=== PATIENT | female | born 1955 | race Caucasian/White ===

== ENCOUNTER → 2016-07-28 | Outpatient (CLI) | payer MEDICARE, OTHER ==
--- NOTE | 2016-07-28 09:22 | CT ---
EXAMINATION TYPE: CT lumbar spine wo con DATE OF EXAM: 07/28/2016 9:07 AM COMPARISON: NONE HISTORY: Recent Fall, checking on surgical site CT DLP: 2483.9 mGycm CONTRAST: none Unenhanced CT of the lumbar spine was performed. Bone and soft tissue window settings are submitted as well as coronal and sagittal reconstructions. L1-L2: Normal disc space height. No disc herniation protrusion or central stenosis. No facet joint arthropathy. No evidence for foraminal encroachment. L2-L3: Normal disc space height. No disc herniation protrusion or central stenosis. No facet joint arthropathy. No evidence for foraminal encroachment. L3-L4: Mild degenerative disc space narrowing. Moderate circumferential disc bulge greatest posterior ly with effacement of the ventral thecal sac. There is a resultant central stenosis. Spinal canal terrell ears to be congenitally diminutive in size. L4-L5: Decompressive laminectomy changes noted. Pedicular screws are in place. Intervertebral body s pacer noted which appears to extend beyond the confines of the posterior vertebral margin and extends paracentrally and to the right, see image 65 of 87. Vacuum changes noted may reflect underlying infe ction. No vacuum changes identified in plain film radiographs of 11/04/2015. Persistent anterolisthesi s L4 and L5 measuring 5.2 mm. L5-S1: Mild degenerative disc space narrowing. Grade 1 retrolisthesis L5 on S1 of 3.3 mm. Circumferen tial disc bulge greatest posteriorly. Effacement of the ventral thecal sac with bilateral lateral rec ess stenosis. No definite central stenosis at this time. Bilateral foraminal encroachment identified. No paraspinal masses are identified. Lumbar segments are free if fracture. IMPRESSION: 1. Decompressive laminectomy and intervertebral body spacer at L4-5. Vacuum changes may be postsurgic al in nature or related to infection. Spacer appears to extend beyond the posterior margin of the carol tebral body. See above. 2. Persistent grade 1 anterolisthesis L4 and L5 and grade 1 retrolisthesis L5 on S1. 3. Mild central stenosis at L3-4.
== END | disposition home or self-care (01) ==
LOC: RADCTMAIN 08:48
PROVIDERS: ATTEND Orthopaedic Surgery
DX: Z09 Encounter for follow-up examination after completed treatment for conditions other than malignant neoplasm (principal); M48.06 Spinal stenosis, lumbar region; M43.17 Spondylolisthesis, lumbosacral region; Z98.1 Arthrodesis status
CPT/HCPCS: 72131

== ENCOUNTER 2016-08-06 18:45 | Observation (INO) | payer MEDICARE, OTHER ==
[2016-08-06] MEDS ORDERED: SODIUM CHLORIDE 0.9% 500 ML IV SCH (19:00)
--- NOTE | 2016-08-06 19:12 | ED ---
General Adult HPI - General Chief complaint: Weakness Stated complaint: poss pneumonia, body pain Time Seen by Provider: 08/06/16 18:47 Source: patient Mode of arrival: EMS Limitations: no limitations - History of Present Illness Initial comments: This is a 61-year-old failed a history of CK 80, CHF and hypertension, hyperlipidemia presents emergency department for "feeling awful" for the last week. She states that she's been having generalized fatigue, sore throat, intermittent fevers, shortness of breath and cough. She denies any abdominal pain, nausea, vomiting, or diarrhea. She denies any lower [place] swelling. She states today she felt so weak that she says she should call and EMS. She denies any other complaints. EMS stated that she was in the high 80s and low 90s on room air for them. - Related Data Home Medications Medication Instructions Recorded Confirmed Carvedilol [Coreg] 6.25 mg PO BID 02/23/15 08/06/16 Folic Acid 1 mg PO AC-SUPPER 02/23/15 08/06/16 Furosemide [Lasix] 20 mg PO QAM 02/23/15 08/06/16 Simvastatin [Zocor] 20 mg PO HS 02/23/15 08/06/16 amLODIPine BESYLATE [Norvasc] 10 mg PO QAM 02/23/15 08/06/16 Insulin Glargine [Lantus] 45 unit SQ HS 02/24/15 08/06/16 Aspirin 325 mg PO AC-SUPPER 08/06/16 08/06/16 DULoxetine HCL [Cymbalta] 20 mg PO HS 08/06/16 08/06/16 Gabapentin [Neurontin] 300 mg PO Q8H 08/06/16 08/06/16 Hypromellose 1 drop LEFT EYE Q6H PRN 08/06/16 08/06/16 INSULIN LISPRO (HumaLOG) [humaLOG] 5 units SQ AC-TID 08/06/16 08/06/16 INSULIN LISPRO (humaLOG) [HumaLOG] See Protocol SQ AC-TID 08/06/16 08/06/16 Levothyroxine Sodium [Synthroid] 100 mcg PO DAILY 08/06/16 08/06/16 Sodium Bicarbonate 325 mg PO QID 08/06/16 08/06/16 Previous Rx's Medication Instructions Recorded HYDROcodone/APAP 5-325MG [[place] 1 tab PO Q6HR PRN #30 tab 02/18/16 5-325] Allergies Allergy/AdvReac Type Severity Reaction Status Date / Time No Known Allergies Allergy Verified 08/06/16 19:33 Review of Systems ROS Statement: Those systems with pertinent positive or pertinent negative responses have been documented in the HPI. ROS Other: All systems not noted in ROS Statement are negative. Past Medical History Past Medical History: Asthma, Coronary Artery Disease (CAD), Diabetes Mellitus, Hypertension, Myocardial Infarction ([place]), Rheumatoid Arthritis ([place]), Sleep Apnea /CPAP/BIPAP, Thyroid Disorder Last Myocardial Infarction Date:: 2009 History of Any Multi-Drug Resistant Organisms: None Reported Past Surgical History: Adenoidectomy, Cholecystectomy, Heart Catheterization With Stent, Tonsillectomy Additional Past Surgical History / Comment(s): thyroidectomy back and shoulder surg Past Anesthesia/Blood Transfusion Reactions: No Reported Reaction Date of Last Stent Placement:: Past Psychological History: No Psychological Hx Reported Smoking Status: Never smoker Past Alcohol Use History: None Reported Past Drug Use History: None Reported General Exam - General Exam Comments Initial Comments: Constitutional: Awake alert appears uncomfortable Head: Normocephalic atraumatic Eyes: Mild conjunctival injection No scleral icterus EOMI ENT: Oropharynx is erythematous with white exudate Neck: No JVD Supple Heart: Regular rate rhythm normal S1-S2 no murmurs Lungs: Trace breath sounds in left base No wheezing No rales Abdomen: Soft nondistended nontender Extremities: Non edematous DP pulses intact Radial pulses intact Neuro: A&Ox3 No focal neurologic deficits Psych: Appropriate mood and affect Limitations: no limitations Course Vital Signs 08/06/16 18:53 Temperature 99.1 F Pulse Rate 93 Respiratory 18 Rate Blood Pressure 161/98 O2 Sat by Pulse 98 Oximetry Medical Decision Making - Medical Decision Making This is a 7-year-old female presents emergency department for generalized malaise. The patient has a leukocytosis and has what appears to be urinary tract infection. We'll start her on IV Rocephin. Due to her multiple comorbidities and keep her overnight for further monitoring. I'm also keep her in a little bit of IV fluids. Patient family were updated on this and agree. Dr. Baca except admission. - Lab Data Result diagrams: 08/06/16 19:06 08/06/16 19:06 Lab Results 08/06/16 08/06/16 08/06/16 Range/Units 19:06 19:06 19:06 WBC 13.0 H (3.8-10.6) k/uL RBC 3.97 (3.80-5.40) m/uL Hgb 12.2 (11.4-16.0) gm/dL Hct 36.8 (34.0-46.0) % MCV 92.7 (80.0-100.0) fL MCH 30.6 (25.0-35.0) pg MCHC 33.0 (31.0-37.0) g/dL RDW 14.8 (11.5-15.5) % Plt Count 132 L (150-450) k/uL Neutrophils % 84 % Lymphocytes % 10 % Monocytes % 4 % Eosinophils % 0 % Basophils % 0 % Neutrophils # 10.9 H (1.3-7.7) k/uL Lymphocytes # 1.3 (1.0-4.8) k/uL Monocytes # 0.5 (0-1.0) k/uL Eosinophils # 0.1 (0-0.7) k/uL Basophils # 0.0 (0-0.2) k/uL PT (9.0-12.0) sec INR (<1.1) APTT (22.0-30.0) sec Sodium 137 (137-145) mmol/L Potassium 4.5 (3.5-5.1) mmol/L Chloride 101 (98-107) mmol/L Carbon Dioxide 27 (22-30) mmol/L Anion Gap 9 mmol/L BUN 20 H (7-17) mg/dL Creatinine 1.48 H (0.52-1.04) mg/dL Est GFR (MDRD) Af Amer 44 (>60 ml/min/1.73 sqM) Est GFR (MDRD) Non-Af 36 (>60 ml/min/1.73 sqM) Glucose 211 H (74-99) mg/dL Plasma Lactic Acid [place] (0.7-2.0) mmol/L Calcium 8.6 (8.4-10.2) mg/dL Total Bilirubin 1.1 (0.2-1.3) mg/dL AST 41 H (14-36) U/L ALT 38 (9-52) U/L Alkaline Phosphatase 114 (38-126) U/L Total Creatine Kinase (30-135) U/L CK-MB (CK-2) (0.0-2.4) ng/mL CK-MB (CK-2) Rel Index Troponin I (0.000-0.034) ng/mL NT-Pro-B Natriuret Pep pg/mL Total Protein 7.0 (6.3-8.2) g/dL Albumin 3.2 L (3.5-5.0) g/dL Urine Color Urine Appearance (Clear) Urine pH (5.0-8.0) Ur Specific [place] (1.001-1.035) Urine Protein (Negative) Urine Glucose (UA) (Negative) Urine Ketones (Negative) Urine Blood (Negative) Urine Nitrate (Negative) Urine Bilirubin (Negative) Urine Urobilinogen (<2.0) mg/dL Ur Leukocyte Esterase (Negative) Urine RBC (0-5) /hpf Urine WBC (0-5) /hpf Urine WBC Clumps (None) /hpf Ur Squamous Epith Cells (0-4) /hpf Urine Bacteria (None) /hpf Hyaline Casts (0-2) /lpf Urine Yeast (Budding) (None) /hpf Influenza Type A RNA Not Detected (Not Detectd) Influenza Type B (PCR) Not Detected (Not Detectd) Group A Strep Rapid (Negative) 08/06/16 08/06/16 08/06/16 Range/Units 19:06 19:06 19:06 WBC (3.8-10.6) k/uL RBC (3.80-5.40) m/uL Hgb (11.4-16.0) gm/dL Hct (34.0-46.0) % MCV (80.0-100.0) fL MCH (25.0-35.0) pg MCHC (31.0-37.0) g/dL RDW (11.5-15.5) % Plt Count (150-450) k/uL Neutrophils % % Lymphocytes % % Monocytes % % Eosinophils % % Basophils % % Neutrophils # (1.3-7.7) k/uL Lymphocytes # (1.0-4.8) k/uL Monocytes # (0-1.0) k/uL Eosinophils # (0-0.7) k/uL Basophils # (0-0.2) k/uL PT 10.4 (9.0-12.0) sec INR 1.0 (<1.1) APTT 24.7 (22.0-30.0) sec Sodium (137-145) mmol/L Potassium (3.5-5.1) mmol/L Chloride (98-107) mmol/L Carbon Dioxide (22-30) mmol/L Anion Gap mmol/L BUN (7-17) mg/dL Creatinine (0.52-1.04) mg/dL Est GFR (MDRD) Af Amer (>60 ml/min/1.73 sqM) Est GFR (MDRD) Non-Af (>60 ml/min/1.73 sqM) Glucose (74-99) mg/dL Plasma Lactic Acid [place] 1.1 (0.7-2.0) mmol/L Calcium (8.4-10.2) mg/dL Total Bilirubin (0.2-1.3) mg/dL AST (14-36) U/L ALT (9-52) U/L Alkaline Phosphatase (38-126) U/L Total Creatine Kinase (30-135) U/L CK-MB (CK-2) (0.0-2.4) ng/mL CK-MB (CK-2) Rel Index Troponin I (0.000-0.034) ng/mL NT-Pro-B Natriuret Pep 557 pg/mL Total Protein (6.3-8.2) g/dL Albumin (3.5-5.0) g/dL Urine Color Urine Appearance (Clear) Urine pH (5.0-8.0) Ur Specific [place] (1.001-1.035) Urine Protein (Negative) Urine Glucose (UA) (Negative) Urine Ketones (Negative) Urine Blood (Negative) Urine Nitrate (Negative) Urine Bilirubin (Negative) Urine Urobilinogen (<2.0) mg/dL Ur Leukocyte Esterase (Negative) Urine RBC (0-5) /hpf Urine WBC (0-5) /hpf Urine WBC Clumps (None) /hpf Ur Squamous Epith Cells (0-4) /hpf Urine Bacteria (None) /hpf Hyaline Casts (0-2) /lpf Urine Yeast (Budding) (None) /hpf Influenza Type A RNA (Not Detectd) Influenza Type B (PCR) (Not Detectd) Group A Strep Rapid (Negative) 08/06/16 08/06/16 08/06/16 Range/Units 19:06 19:11 21:20 WBC (3.8-10.6) k/uL RBC (3.80-5.40) m/uL Hgb (11.4-16.0) gm/dL Hct (34.0-46.0) % MCV (80.0-100.0) fL MCH (25.0-35.0) pg MCHC (31.0-37.0) g/dL RDW (11.5-15.5) % Plt Count (150-450) k/uL Neutrophils % % Lymphocytes % % Monocytes % % Eosinophils % % Basophils % % Neutrophils # (1.3-7.7) k/uL Lymphocytes # (1.0-4.8) k/uL Monocytes # (0-1.0) k/uL Eosinophils # (0-0.7) k/uL Basophils # (0-0.2) k/uL PT (9.0-12.0) sec INR (<1.1) APTT (22.0-30.0) sec Sodium (137-145) mmol/L Potassium (3.5-5.1) mmol/L Chloride (98-107) mmol/L Carbon Dioxide (22-30) mmol/L Anion Gap mmol/L BUN (7-17) mg/dL Creatinine (0.52-1.04) mg/dL Est GFR (MDRD) Af Amer (>60 ml/min/1.73 sqM) Est GFR (MDRD) Non-Af (>60 ml/min/1.73 sqM) Glucose (74-99) mg/dL Plasma Lactic Acid [place] (0.7-2.0) mmol/L Calcium (8.4-10.2) mg/dL Total Bilirubin (0.2-1.3) mg/dL AST (14-36) U/L ALT (9-52) U/L Alkaline Phosphatase (38-126) U/L Total Creatine Kinase 279 H (30-135) U/L CK-MB (CK-2) 0.7 (0.0-2.4) ng/mL CK-MB (CK-2) Rel Index 0.3 Troponin I 0.017 (0.000-0.034) ng/mL NT-Pro-B Natriuret Pep pg/mL Total Protein (6.3-8.2) g/dL Albumin (3.5-5.0) g/dL Urine Color Yellow Urine Appearance Cloudy H (Clear) Urine pH 7.5 (5.0-8.0) Ur Specific [place] 1.014 (1.001-1.035) Urine Protein 3+ H (Negative) Urine Glucose (UA) Negative (Negative) Urine Ketones Negative (Negative) Urine Blood Trace H (Negative) Urine Nitrate Negative (Negative) Urine Bilirubin Negative (Negative) Urine Urobilinogen 4.0 (<2.0) mg/dL Ur Leukocyte Esterase Large H (Negative) Urine RBC 6 H (0-5) /hpf Urine WBC 130 H (0-5) /hpf Urine WBC Clumps Few H (None) /hpf Ur Squamous Epith Cells <1 (0-4) /hpf Urine Bacteria Rare H (None) /hpf Hyaline Casts 6 H (0-2) /lpf Urine Yeast (Budding) Many H (None) /hpf Influenza Type A RNA (Not Detectd) Influenza Type B (PCR) (Not Detectd) Group A Strep Rapid Negative (Negative) Disposition Clinical Impression: UTI (urinary tract infection), Leukocytosis, Malaise and fatigue Disposition: ADMITTED IP TO THIS HOSP Condition: Stable Referrals: Jhonathan Baca MD [Primary Care Provider] - 1-2 days
[2016-08-06 19:18] LABS: Basophils % (A) 0 %; CH 30.6; CHCM 33.2; Eosinophils # (A) 0.1 k/uL (0-0.7); Eosinophils % (A) 0 %; HCT 36.8 % (34.0-46.0); HDW 2.46; HGB 12.2 gm/dL (11.4-16.0); Luc # (Auto) 0.13; Luc % (Auto) 1; Lymphocytes # (A) 1.3 k/uL (1.0-4.8); Lymphocytes % (A) 10 %; MCH 30.6 pg (25.0-35.0); MCV 92.7 fL (80.0-100.0); Monocytes # (A) 0.5 k/uL (0-1.0); Monocytes % (A) 4 %; Neutrophils # (A) 10.9 k/uL (1.3-7.7); Neutrophils % (A) 84 %; RBC 3.97 m/uL (3.80-5.40); RDW 14.8 % (11.5-15.5); WBC (Perox) 12.89
[2016-08-06 19:27] LABS: Calcium 8.6 mg/dL (8.4-10.2); Potassium 4.5 mmol/L (3.5-5.1); Total Bilirubin 1.1 mg/dL (0.2-1.3)
[2016-08-06 19:33] LABS: Partial Thromboplastin Time 24.7 sec (22.0-30.0); Prothrombin Time 10.4 sec (9.0-12.0)
--- NOTE | 2016-08-06 19:44 | XR ---
EXAMINATION TYPE: XR chest 2V DATE OF EXAM: 08/06/2016 7:26 PM COMPARISON: 11/04/2015 HISTORY: Short of breath TECHNIQUE: Frontal and lateral views of the chest are obtained. FINDINGS: Heart is enlarged. There is no heart failure. There is no pleural effusion. There are no h ilar masses. Lungs are clear of consolidation. There are chest leads. IMPRESSION: Cardiomegaly. No heart failure. Heart is probably increased compared to last exam.
[2016-08-06 19:53] LABS: Creatine Kinase MB 0.7 ng/mL (0.0-2.4); Troponin I 0.017 ng/mL (0.000-0.034)
[2016-08-06 21:44] LABS: Appearance,Urine Cloudy (Clear); Bacteria,Urine Rare /hpf; Bilirubin,Urine Negative (Negative); Glucose,Urine (UA) Negative (Negative); Ketones,Urine Negative (Negative); Leukocyte Esterase,Urine Large (Negative); Nitrite,Urine Negative (Negative); PH, Urine 7.5 (5.0-8.0); Particle Count 6799; Protein,Urine 3+ (Negative); RBC,Urine 6 /hpf (0-5); Specific Gravity,Urine 1.014 (1.001-1.035); Squamous Epithelial Cell,Urine <1 /hpf (0-4); UA Billing (MACRO vs. MICRO) MICRO; WBC,Urine 130 /hpf (0-5)
[2016-08-06] MEDS ORDERED: NALOXONE 0.4 MG/ML 1 ML VIAL IV PRN (22:45)
[2016-08-06] MEDS: SODIUM CHLORIDE 0.9% 1,000 ML IV SCH (23:53)
[2016-08-07 00:39] VITALS: BMI 46.1
[2016-08-07 02:01] LABS: Creatine Kinase MB 0.9 ng/mL (0.0-2.4); Troponin I 0.017 ng/mL (0.000-0.034)
[2016-08-07] MEDS ORDERED: ARTIFICIAL TEARS-HYPROMELLOSE DROPS 15 ML BTL LEFT EYE PRN (08:00)
--- NOTE | 2016-08-07 08:10 | P.HPIM ---
History of Present Illness H&P Date: 08/07/16 Chief Complaint: Generalized fatigue with UTI. This history and physical [id number] white female with known history of congestive heart failure hypertension and hyperlipidemia who states that she's been having for his swelling. She states general states her throat intermittently fevers with cough. She did not state any significant abdominal pain or dysuria. She denies any significant new onset lower extremity swelling. However, the weakness prompted EMS call. Significant UTI was noted in the emergency room and she is appropriately admitted. She has an underlying history of insulin dependent diabetes Review of Systems Constitutional: Reports fatigue Eyes: denies blurred vision, denies pain Ears, nose, mouth and throat: Denies headache, Denies sore throat Cardiovascular: Denies chest pain, Denies shortness of breath Respiratory: Denies cough Gastrointestinal: Reports as per HPI Genitourinary: Reports as per HPI Musculoskeletal: Denies myalgias Integumentary: Reports pruritus, Reports rash Neurological: Denies numbness, Denies weakness Psychiatric: Denies anxiety, Denies depression Past Medical History Past Medical History: Asthma, Coronary Artery Disease (CAD), Diabetes Mellitus, Hypertension, Myocardial Infarction ([place]), Rheumatoid Arthritis ([place]), Sleep Apnea /CPAP/BIPAP, Thyroid Disorder Additional Past Medical History / Comment(s): kidney disease stage 4 Last Myocardial Infarction Date:: 2009 History of Any Multi-Drug Resistant Organisms: None Reported Past Surgical History: Adenoidectomy, Back Surgery, Cholecystectomy, Heart Catheterization With Stent, Tonsillectomy Additional Past Surgical History / Comment(s): thyroidectomy back and shoulder surg Past Anesthesia/Blood Transfusion Reactions: No Reported Reaction Date of Last Stent Placement:: 2010 Past Psychological History: No Psychological Hx Reported Smoking Status: Never smoker Past Alcohol Use History: None Reported Past Drug Use History: None Reported - Past Family History Mother Family Medical History: Asthma Additional Family Medical History / Comment(s): epilepsy Father Additional Family Medical History / Comment(s): many heart problems Medications and Allergies Home Medications Medication Instructions Recorded Confirmed Type Carvedilol [Coreg] 6.25 mg PO BID 02/23/15 08/07/16 History Folic Acid 1 mg PO AC-SUPPER 02/23/15 08/07/16 History Furosemide [Lasix] 20 mg PO QAM 02/23/15 08/07/16 History Simvastatin [Zocor] 20 mg PO HS 02/23/15 08/06/16 History amLODIPine BESYLATE [Norvasc] 10 mg PO QAM 02/23/15 08/07/16 History Insulin Glargine [Lantus] 45 unit SQ HS 02/24/15 08/06/16 History Aspirin 325 mg PO AC-SUPPER 08/06/16 08/07/16 History DULoxetine HCL [Cymbalta] 20 mg PO HS 08/06/16 08/07/16 History Gabapentin [Neurontin] 300 mg PO Q8H 08/06/16 08/07/16 History Hypromellose 1 drop LEFT EYE Q6H PRN 08/06/16 08/07/16 History INSULIN LISPRO (HumaLOG) [humaLOG] 5 units SQ AC-TID 08/06/16 08/06/16 History INSULIN LISPRO (humaLOG) [HumaLOG] See Protocol SQ AC-TID 08/06/16 08/06/16 History Levothyroxine Sodium [Synthroid] 100 mcg PO DAILY 08/06/16 08/07/16 History Sodium Bicarbonate 325 mg PO QID 08/06/16 08/07/16 History Allergies Allergy/AdvReac Type Severity Reaction Status Date / Time No Known Allergies Allergy Verified 08/06/16 19:33 Physical Exam Vitals: Vital Signs Temp Pulse Resp BP Pulse Ox 08/07/16 04:00 98.8 F 70 16 132/62 100 08/07/16 00:00 98.0 F 70 18 131/77 100 08/06/16 23:54 98.0 F 70 18 131/77 100 Intake and Output 08/06/16 08/07/16 08/07/16 22:59 06:59 14:59 Output Total 800 Balance -800 Output: Urine 800 Other: Voiding Method Toilet Diaper # Voids 1 Weight 125.9 kg - Constitutional General appearance: obese - EENT Eyes: EOMI - Neck Neck: no lymphadenopathy Thyroid: bilateral: normal size - Respiratory Respiratory: bilateral: CTA - Cardiovascular Rhythm: regular Heart sounds: normal: S1, S2 - Gastrointestinal General gastrointestinal: soft - Integumentary Element of facial cellulitis versus ALLERGIC reaction. Integumentary: rash - Neurologic Neurologic: CNII-XII intact Results CBC & Chem 7: 08/06/16 19:06 08/06/16 19:06 Labs: Abnormal Lab Results - Last 24 Hours (Table) 08/07/16 Range/Units 01:07 Total Creatine Kinase 221 H (30-135) U/L Thrombosis Risk Factor Assmnt - Choose All That Apply Each Factor Represents 1 point: Acute [place], Age 41-60 years, Obesity (BMI >25) Thrombosis Risk Factor Assessment Total Risk Factor Score: 3 Thrombosis Risk Factor Assessment Level: Moderate Risk Assessment and Plan (1) Malaise and fatigue Status: Acute (2) UTI (urinary tract infection) Status: Acute (3) Hyperglycemia due to type 2 diabetes mellitus Status: Acute Plan: Continue ceftriaxone. Add Pepcid with Claritin. Question element of ALLERGIC reaction. Reconcile home medications. Check CBC and see me in a.m. Continue IV hydration. Question need for infectious disease consult if the patient does not improve Time with Patient: Less than 30
[2016-08-07 08:20] LABS: Glucose,Whole Blood 169 mg/dL (75-99)
[2016-08-07 08:51] LABS: Creatine Kinase MB 1.3 ng/mL (0.0-2.4); Troponin I 0.013 ng/mL (0.000-0.034)
[2016-08-07] MEDS ORDERED: FAMOTIDINE 20 MG/2 ML VIAL IV SCH (09:00)
[2016-08-07] MEDS: GABAPENTIN 300 MG CAP PO SCH ×3 (10:06→23:45)
[2016-08-07] MEDS: CARVEDILOL 6.25 MG TAB PO SCH ×2 (10:06→18:09)
[2016-08-07] MEDS: SODIUM BICARBONATE TAB 650 MG TAB PO SCH ×4 (10:06→23:44)
[2016-08-07] MEDS: LEVOTHYROXINE 100 MCG TAB PO SCH (10:06)
[2016-08-07] MEDS: LORATADINE 10 MG TAB PO SCH (10:06)
[2016-08-07] MEDS: amLODIPine 10 MG TAB PO SCH (10:06)
[2016-08-07] MEDS: FUROSEMIDE 20 MG TAB PO SCH (10:06)
[2016-08-07 12:48] LABS: Hemoglobin A1C 7.3 % (4.2-6.1)
[2016-08-07 13:10] LABS: Glucose,Whole Blood 193 mg/dL (75-99)
[2016-08-07] MEDS: INSULIN LISPRO (humaLOG) 300 UNIT/3 ML VIAL SQ SCH ×5 (13:14→20:56)
[2016-08-07] MEDS: SODIUM CHLORIDE 0.9% 1,000 ML IV SCH (13:15)
[2016-08-07 17:17] LABS: Glucose,Whole Blood 160 mg/dL (75-99)
[2016-08-07] MEDS: FOLIC ACID 1 MG TAB PO SCH (18:09)
[2016-08-07] MEDS: ASPIRIN 325 MG TAB PO SCH (18:10)
[2016-08-07 20:52] LABS: Glucose,Whole Blood 110 mg/dL (75-99)
[2016-08-07] MEDS: ATORVASTATIN 10 MG TAB PO SCH (21:15)
[2016-08-07] MEDS: DULoxetine HCL 20 MG CAPSULE.DR PO SCH (21:15)
[2016-08-07] MEDS: INSULIN GLARGINE 100 UNIT/ML 10 ML VIAL SQ SCH (21:15)
[2016-08-07] MEDS: HYDROcodone/APAP 5-325MG 1 EACH TAB PO PRN (21:38)
[2016-08-08] MEDS: SODIUM CHLORIDE 0.9% 1,000 ML IV SCH ×2 (01:50→15:10)
[2016-08-08] MEDS: LEVOTHYROXINE 100 MCG TAB PO SCH (06:32)
[2016-08-08 06:43] LABS: CH 30.3; HDW 2.57; HGB 10.2 gm/dL (11.4-16.0); MCH 31.1 pg (25.0-35.0); MCHC 32.8 g/dL (31.0-37.0); Mean Platelet Volume 7.9; RBC 3.27 m/uL (3.80-5.40); RDW 14.5 % (11.5-15.5); WBC 10.2 k/uL (3.8-10.6)
[2016-08-08 07:08] LABS: Calcium 8.2 mg/dL (8.4-10.2); Potassium 4.7 mmol/L (3.5-5.1); Total Bilirubin 0.4 mg/dL (0.2-1.3); Total Protein 6.2 g/dL (6.3-8.2)
[2016-08-08 07:34] LABS: Glucose,Whole Blood 125 mg/dL (75-99)
--- NOTE | 2016-08-08 08:07 | P.PN ---
Subjective Principal diagnosis: UTI with right facial rash. This is a continue present 7-year-old white female essentially omitted for UTI and weakness. She states significant improvement once hydration was instituted the IV. We will restart ceftriaxone, I thought this was ordered continuously from the emergency room. Her facial rash is improving the forehead but her upper eyelid does seem a little red. Question ALLERGY versus infection element. She states no pain. Some burning stated. However, no evidence of insect bite stated. No voiding difficulties are noted. Objective - Vital Signs Vital signs: Vital Signs Temp 97.0 F L 08/07/16 23:52 Pulse 65 08/07/16 23:52 Resp 16 08/07/16 23:52 BP 128/67 08/07/16 23:52 Pulse Ox 95 08/07/16 23:52 Intake & Output 08/07/16 08/08/16 08/08/16 18:59 06:59 18:59 Output Total 1400 850 Balance -1400 -850 Output: Urine 1400 850 Other: # Voids 1 1 - Constitutional General appearance: Present: obese - EENT Eyes: Absent: abnormal pupil - Respiratory Respiratory: bilateral: CTA - Cardiovascular Rhythm: regular Heart sounds: normal: S1, S2 - Integumentary Integumentary Comment(s): Right upper lid of the eye does show redness. Erythema is noted. Movement is appropriate. No visual element loss stated. Integumentary: Present: rash - Neurologic Neurologic: Present: CNII-XII intact, focal deficits - Labs CBC & Chem 7: 08/08/16 06:21 08/08/16 06:21 Labs: Abnormal Lab Results - Last 24 Hours (Table) 08/07/16 08/07/16 08/07/16 Range/Units 07:09 07:09 08:18 RBC (3.80-5.40) m/uL Hgb (11.4-16.0) gm/dL Hct (34.0-46.0) % Plt Count (150-450) k/uL BUN (7-17) mg/dL Creatinine (0.52-1.04) mg/dL Glucose (74-99) mg/dL POC Glucose (mg/dL) 169 H (75-99) mg/dL Hemoglobin A1c 7.3 H (4.2-6.1) % Calcium (8.4-10.2) mg/dL Total Creatine Kinase 215 H (30-135) U/L Total Protein (6.3-8.2) g/dL Albumin (3.5-5.0) g/dL 08/07/16 08/07/16 08/07/16 Range/Units 13:07 16:57 20:50 RBC (3.80-5.40) m/uL Hgb (11.4-16.0) gm/dL Hct (34.0-46.0) % Plt Count (150-450) k/uL BUN (7-17) mg/dL Creatinine (0.52-1.04) mg/dL Glucose (74-99) mg/dL POC Glucose (mg/dL) 193 H 160 H 110 H (75-99) mg/dL Hemoglobin A1c (4.2-6.1) % Calcium (8.4-10.2) mg/dL Total Creatine Kinase (30-135) U/L Total Protein (6.3-8.2) g/dL Albumin (3.5-5.0) g/dL 08/08/16 08/08/16 08/08/16 Range/Units 06:21 06:21 07:33 RBC 3.27 L (3.80-5.40) m/uL Hgb 10.2 L (11.4-16.0) gm/dL Hct 31.0 L (34.0-46.0) % Plt Count 105 L (150-450) k/uL BUN 29 H (7-17) mg/dL Creatinine 1.63 H (0.52-1.04) mg/dL Glucose 137 H (74-99) mg/dL POC Glucose (mg/dL) 125 H (75-99) mg/dL Hemoglobin A1c (4.2-6.1) % Calcium 8.2 L (8.4-10.2) mg/dL Total Creatine Kinase (30-135) U/L Total Protein 6.2 L (6.3-8.2) g/dL Albumin 2.8 L (3.5-5.0) g/dL Assessment and Plan (1) Malaise and fatigue Status: Acute (2) UTI (urinary tract infection) Status: Acute (3) Hyperglycemia due to type 2 diabetes mellitus Status: Acute Plan: Continue current regimen of antibiotic treatment. Check CBC and see me in a.m. Anticipate discharge in the a.m. Time with Patient: Less than 30
[2016-08-08] MEDS: INSULIN LISPRO (humaLOG) 300 UNIT/3 ML VIAL SQ SCH ×7 (09:19→21:06)
[2016-08-08] MEDS: SODIUM BICARBONATE TAB 650 MG TAB PO SCH ×4 (09:28→21:22)
[2016-08-08] MEDS: amLODIPine 10 MG TAB PO SCH (09:29)
[2016-08-08] MEDS: FUROSEMIDE 20 MG TAB PO SCH (09:29)
[2016-08-08] MEDS: CARVEDILOL 6.25 MG TAB PO SCH ×2 (09:29→17:24)
[2016-08-08] MEDS: LORATADINE 10 MG TAB PO SCH (09:29)
[2016-08-08] MEDS: FAMOTIDINE 20 MG TAB PO SCH (09:29)
[2016-08-08] MEDS: GABAPENTIN 300 MG CAP PO SCH ×2 (09:29→17:24)
[2016-08-08 12:10] LABS: Glucose,Whole Blood 83 mg/dL (75-99)
[2016-08-08] MEDS ORDERED: ACETAMINOPHEN TAB 325 MG TAB PO PRN (14:17)
[2016-08-08] MEDS: ASPIRIN 325 MG TAB PO SCH (17:24)
[2016-08-08] MEDS: FOLIC ACID 1 MG TAB PO SCH (17:24)
[2016-08-08 18:14] LABS: Glucose,Whole Blood 93 mg/dL (75-99)
[2016-08-08 21:03] LABS: Glucose,Whole Blood 104 mg/dL (75-99)
[2016-08-08] MEDS: INSULIN GLARGINE 100 UNIT/ML 10 ML VIAL SQ SCH (21:21)
[2016-08-08] MEDS: DULoxetine HCL 20 MG CAPSULE.DR PO SCH (21:22)
[2016-08-08] MEDS: ATORVASTATIN 10 MG TAB PO SCH (21:22)
[2016-08-09] MEDS: GABAPENTIN 300 MG CAP PO SCH ×2 (00:50→08:45)
[2016-08-09] MEDS: HYDROcodone/APAP 5-325MG 1 EACH TAB PO PRN (02:07)
[2016-08-09] MEDS: LEVOTHYROXINE 100 MCG TAB PO SCH (06:28)
[2016-08-09 06:36] LABS: CH 30.3; CHCM 31.9; HCT 30.9 % (34.0-46.0); HDW 2.64; HGB 10.1 gm/dL (11.4-16.0); MCH 31.3 pg (25.0-35.0); MCHC 32.7 g/dL (31.0-37.0); MCV 95.6 fL (80.0-100.0); Mean Platelet Volume 8.3; RBC 3.23 m/uL (3.80-5.40); RDW 14.7 % (11.5-15.5); WBC 6.2 k/uL (3.8-10.6)
[2016-08-09 06:50] LABS: Calcium 8.2 mg/dL (8.4-10.2); Potassium 4.4 mmol/L (3.5-5.1); Total Bilirubin 0.4 mg/dL (0.2-1.3); Total Protein 6.2 g/dL (6.3-8.2)
[2016-08-09 07:02] LABS: Glucose,Whole Blood 74 mg/dL (75-99)
[2016-08-09 07:04] VITALS: BP 131/65; PULSE 58; RESP 12; TEMP 97
[2016-08-09] MEDS: INSULIN LISPRO (humaLOG) 300 UNIT/3 ML VIAL SQ SCH ×4 (08:00→13:36)
[2016-08-09] MEDS: FUROSEMIDE 20 MG TAB PO SCH (08:44)
[2016-08-09] MEDS: CARVEDILOL 6.25 MG TAB PO SCH (08:45)
[2016-08-09] MEDS: FAMOTIDINE 20 MG TAB PO SCH (08:45)
[2016-08-09] MEDS: amLODIPine 10 MG TAB PO SCH (08:45)
[2016-08-09] MEDS: LORATADINE 10 MG TAB PO SCH (08:45)
--- NOTE | 2016-08-09 08:50 | P.DS ---
Providers Date of admission: 08/06/16 22:32 Attending physician: Jhonathan Baca Primary care physician: Jhonathan Baca - Discharge Diagnosis(es) (1) Malaise and fatigue Current Visit: Yes Status: Acute (2) UTI (urinary tract infection) Current Visit: Yes Status: Acute (3) Hyperglycemia due to type 2 diabetes mellitus Current Visit: No Status: Acute Hospital Course: The patient is a 61-year-old white female essentially meant for UTI dehydration and facial rash. I suspect ALLERGIC reaction versus infection. The patient was stabilized with IV hydration and is now stable for discharge. The patient will follow-up with me in approximately one week. Patient Condition at Discharge: Good Plan - Discharge Summary New Discharge Prescriptions: Cefuroxime [Ceftin] 500 mg PO BID #28 tablet RX: Loratadine [Claritin] 10 mg PO DAILY #10 tab Discharge Medication List RX: Carvedilol [Coreg] 6.25 mg PO BID 02/23/15 [History] RX: Folic Acid 1 mg PO AC-SUPPER 02/23/15 [History] RX: Furosemide [Lasix] 20 mg PO QAM 02/23/15 [History] RX: Simvastatin [Zocor] 20 mg PO HS 02/23/15 [History] RX: amLODIPine BESYLATE [Norvasc] 10 mg PO QAM 02/23/15 [History] RX: Insulin Glargine [Lantus] 45 unit SQ HS 02/24/15 [History] RX: HYDROcodone/APAP 5-325MG [[place] 5-325] 1 tab PO Q6HR PRN #30 tab 02/18/16 [ Rx] Hypromellose 1 drop LEFT EYE Q6H PRN 08/06/16 [History] RX: Aspirin 325 mg PO AC-SUPPER 08/06/16 [History] RX: DULoxetine HCL [Cymbalta] 20 mg PO HS 08/06/16 [History] RX: Gabapentin [Neurontin] 300 mg PO Q8H 08/06/16 [History] RX: INSULIN LISPRO (HumaLOG) [humaLOG] 5 units SQ AC-TID 08/06/16 [History] RX: INSULIN LISPRO (humaLOG) [humaLOG (formulary)] See Protocol SQ AC-TID [History] RX: Levothyroxine Sodium [Synthroid] 100 mcg PO DAILY 08/06/16 [History] RX: Sodium Bicarbonate 325 mg PO QID 08/06/16 [History] Cefuroxime [Ceftin] 500 mg PO BID #28 tablet 08/09/16 [Rx] RX: Loratadine [Claritin] 10 mg PO DAILY #10 tab 08/09/16 [Rx] Follow up Appointment(s)/Referral(s): Jhonathan Baca MD [Primary Care Provider] - 1-2 days
[2016-08-09] MEDS: SODIUM CHLORIDE 0.9% 1,000 ML IV SCH (10:28)
[2016-08-09] MEDS: SODIUM BICARBONATE TAB 650 MG TAB PO SCH ×2 (10:29→13:36)
[2016-08-09 11:37] LABS: Glucose,Whole Blood 188 mg/dL (75-99)
--- NOTE | 2016-08-28 12:22 | CDI ---
In the H&P is stated patient had a history of kidney disease stage 4---is this chronic? YES Thank you MTDD
== END 2016-08-09 13:37 | disposition home or self-care (01) ==
LOC: EC 18:45 → 3OBS 22:32 → 6PED 23:02
PROVIDERS: ADMIT Family Medicine; ATTEND Family Medicine
DX: N39.0 Urinary tract infection, site not specified (principal); E11.65 Type 2 diabetes mellitus with hyperglycemia; I13.0 Hypertensive heart and chronic kidney disease with heart failure and stage 1 through stage 4 chronic kidney disease, or unspecified chronic kidney disease; N18.9 Chronic kidney disease, unspecified; I50.9 Heart failure, unspecified; E11.22 Type 2 diabetes mellitus with diabetic chronic kidney disease; E86.0 Dehydration; E78.5 Hyperlipidemia, unspecified; G47.30 Sleep apnea, unspecified; I25.10 Atherosclerotic heart disease of native coronary artery without angina pectoris; I25.2 Old myocardial infarction; Z79.4 Long term (current) use of insulin; Z79.82 Long term (current) use of aspirin; Z79.899 Other long term (current) drug therapy; R21 Rash and other nonspecific skin eruption; E07.9 Disorder of thyroid, unspecified; M06.9 Rheumatoid arthritis, unspecified
CPT/HCPCS: 96365 ×2; 99285 ×2; 96361; 36415; 93005; 83880; 80053 ×3; 83036; 82550 ×2; 82553 ×2; 83605; 84484 ×2; 85025; 85027 ×2; 85610; 85730; 81001; 87040; 87086; 87081; 87430; 87502; 71020; G0378 ×4; J0696 ×3; 96375

== ENCOUNTER 2017-11-21 16:55 | Emergency (ER) | payer MEDICARE, OTHER ==
[2017-11-21 17:05] VITALS: RESP 18
--- NOTE | 2017-11-21 17:33 | ED ---
Psych HPI - General Chief Complaint: Psychiatric Symptoms Stated Complaint: mental health Time Seen by Provider: 11/21/17 17:00 Source: patient, RN/MD, RN notes reviewed Mode of arrival: EMS - History of Present Illness Initial Comments: This is a 62-year-old female who was sent in by her doctor for evaluation for depression and suicidal thought. She states is been going on for about a month or the past several days as soon worse she would like to kill himself using an overdose of pills. She states is the main problem. She has no specific trigger at this point. She is very tearful and insisted that she would kill herself. She was petitioned a period she has any alcohol or drugs. MD Complaint: suicidal ideation, feels depressed - Related Data Home Medications Medication Instructions Recorded Confirmed Carvedilol [Coreg] 6.25 mg PO BID 02/23/15 11/21/17 Furosemide [Lasix] 20 mg PO DAILY 02/23/15 11/21/17 amLODIPine BESYLATE [Norvasc] 10 mg PO DAILY 02/23/15 11/21/17 Aspirin 325 mg PO DAILY 08/06/16 11/21/17 Sodium Bicarbonate 325 mg PO TID 08/06/16 11/21/17 Albuterol Inhaler [Ventolin Hfa 1 - 2 puff INHALATION RT-Q6H PRN 11/21/17 Inhaler] Albuterol Nebulized (Conc) 2.5 mg INHALATION RT-QID PRN 11/21/17 11/21/17 [Ventolin Nebulized (Conc)] Allopurinol [Zyloprim] 300 mg PO DAILY 11/21/17 11/21/17 Atorvastatin [Lipitor] 40 mg PO DAILY 11/21/17 11/21/17 Calcium Acetate [Phoslo] 1,334 mg PO TID 11/21/17 11/21/17 Cholecalciferol (Vitamin D3) 2,000 unit PO DAILY 11/21/17 11/21/17 [Vitamin D3] Clopidogrel [Plavix] 75 mg PO DAILY 11/21/17 11/21/17 DULoxetine HCL [Cymbalta] 30 mg PO BID 11/21/17 11/21/17 Ferrous Sulfate [Feosol] 650 mg PO DAILY 11/21/17 11/21/17 Fluticasone Propionate [Flovent 2 puff INHALATION RT-BID 11/21/17 11/21/17 Hfa 110mcg] Gabapentin [Neurontin] 400 mg PO TID 11/21/17 11/21/17 Glucagon Emergency Kit 1 mg IM ONCE 11/21/17 11/21/17 Insulin Aspart [NovoLOG Flexpen] See Protocol SQ TID PRN 11/21/17 11/21/17 Insulin Aspart [Novolog Flexpen] 5 unit SQ AC-TID 11/21/17 11/21/17 Insulin Degludec [Tresiba 40 unit SQ HS 11/21/17 11/21/17 Flextouch U-200] Levothyroxine Sodium [Synthroid] 175 mcg PO DAILY 11/21/17 11/21/17 Montelukast [Singulair] 10 mg PO HS 11/21/17 11/21/17 Nitroglycerin Sl Tabs [Nitrostat] 0.4 mg SUBLINGUAL Q5M PRN 11/21/17 11/21/17 Polyethylene Glycol 3350 [Miralax] 17 gm PO DAILY PRN 11/21/17 11/21/17 Tofacitinib Citrate [Xeljanz Xr] 11 mg PO DAILY 11/21/17 11/21/17 cloNIDine HCL [Catapres] 0.2 mg PO HS 11/21/17 11/21/17 Allergies Allergy/AdvReac Type Severity Reaction Status Date / Time No Known Allergies Allergy Verified 11/21/17 17:50 Review of Systems ROS Statement: Those systems with pertinent positive or pertinent negative responses have been documented in the HPI. ROS Other: All systems not noted in ROS Statement are negative. Past Medical History Past Medical History: Asthma, Coronary Artery Disease (CAD), Diabetes Mellitus, Hypertension, Myocardial Infarction ([place]), Rheumatoid Arthritis ([place]), Sleep Apnea /CPAP/BIPAP, Thyroid Disorder Additional Past Medical History / Comment(s): kidney disease stage 4 Last Myocardial Infarction Date:: 2009 History of Any Multi-Drug Resistant Organisms: None Reported Past Surgical History: Adenoidectomy, Back Surgery, Cholecystectomy, Heart Catheterization With Stent, Tonsillectomy Additional Past Surgical History / Comment(s): thyroidectomy Past Anesthesia/Blood Transfusion Reactions: No Reported Reaction Date of Last Stent Placement:: 2010 Past Psychological History: No Psychological Hx Reported Smoking Status: Never smoker Past Alcohol Use History: None Reported Past Drug Use History: None Reported - Past Family History Mother Family Medical History: Asthma Additional Family Medical History / Comment(s): epilepsy Father Additional Family Medical History / Comment(s): many heart problems General Exam - General Exam Comments Initial Comments: This is a well-developed well-nourished awake alert or into 3 female she is very anxious and tearful Limitations: no limitations General appearance: alert, anxious Head exam: Present: atraumatic, normocephalic, normal inspection Eye exam: Present: normal appearance, PERRL, EOMI. Absent: scleral icterus, conjunctival injection, periorbital swelling ENT exam: Present: normal exam, mucous membranes moist Neck exam: Present: normal inspection. Absent: tenderness, meningismus, lymphadenopathy Respiratory exam: Present: normal lung sounds bilaterally. Absent: respiratory distress, wheezes, rales, rhonchi, stridor Cardiovascular Exam: Present: regular rate, normal rhythm, normal heart sounds. Absent: systolic murmur, diastolic murmur, rubs, gallop, clicks GI/Abdominal exam: Present: soft, normal bowel sounds. Absent: distended, tenderness, guarding, rebound, rigid Extremities exam: Present: full ROM, normal capillary refill, other (Multiple scratch moreno on both dorsal forearms. Consistent with picking). Absent: tenderness, pedal edema, joint swelling, calf tenderness Back exam: Present: normal inspection Neurological exam: Present: alert, oriented X3, CN II-XII intact Psychiatric exam: Present: depressed, suicidal ideation Skin exam: Present: warm, dry, intact, normal color. Absent: rash Course Vital Signs 11/21/17 16:57 Temperature 98.4 F Pulse Rate 75 Respiratory 18 Rate Blood Pressure 171/79 O2 Sat by Pulse 97 Oximetry Medical Decision Making - Medical Decision Making The patient was evaluated by psychiatric service suicidal or risk to herself she does have family members who have come and have agreed to stay with her all family members are agree with this. She will be discharged outpatient counseling. - Lab Data Result diagrams: 11/21/17 18:00 11/21/17 18:00 Lab Results 11/21/17 11/21/17 Range/Units 18:00 18:00 WBC 7.7 (3.8-10.6) k/uL RBC 4.49 (3.80-5.40) m/uL Hgb 14.0 (11.4-16.0) gm/dL Hct 41.3 (34.0-46.0) % MCV 91.9 (80.0-100.0) fL MCH 31.1 (25.0-35.0) pg MCHC 33.8 (31.0-37.0) g/dL RDW 13.8 (11.5-15.5) % Plt Count 188 (150-450) k/uL Neutrophils % 66 % Lymphocytes % 25 % Monocytes % 6 % Eosinophils % 1 % Basophils % 0 % Neutrophils # 5.1 (1.3-7.7) k/uL Lymphocytes # 1.9 (1.0-4.8) k/uL Monocytes # 0.5 (0-1.0) k/uL Eosinophils # 0.1 (0-0.7) k/uL Basophils # 0.0 (0-0.2) k/uL Sodium 139 (137-145) mmol/L Potassium 5.2 H (3.5-5.1) mmol/L Chloride 102 (98-107) mmol/L Carbon Dioxide 28 (22-30) mmol/L Anion Gap 9 mmol/L BUN 37 H (7-17) mg/dL Creatinine 1.63 H (0.52-1.04) mg/dL Est GFR (CKD-EPI)AfAm 39 (>60 ml/min/1.73 sqM) Est GFR (CKD-EPI)NonAf 34 (>60 ml/min/1.73 sqM) Glucose 197 H (74-99) mg/dL Calcium 9.8 (8.4-10.2) mg/dL Total Bilirubin 0.8 (0.2-1.3) mg/dL AST 41 H (14-36) U/L ALT 41 (9-52) U/L Alkaline Phosphatase 91 (38-126) U/L Total Protein 6.9 (6.3-8.2) g/dL Albumin 3.8 (3.5-5.0) g/dL Disposition Clinical Impression: Depression, Adjustment reaction Disposition: HOME SELF-CARE Condition: Good Instructions: Depression (ED), Stress (ED), Mood Disorders (ED) Is patient prescribed a controlled substance at d/c from ED?: No Referrals: Jhonathan Baca MD [Primary Care Provider] - 1-2 days
[2017-11-21 18:11] LABS: Basophils % (A) 0 %; Eosinophils # (A) 0.1 k/uL (0-0.7); Eosinophils % (A) 1 %; HCT 41.3 % (34.0-46.0); Lymphocytes # (A) 1.9 k/uL (1.0-4.8); Lymphocytes % (A) 25 %; MCH 31.1 pg (25.0-35.0); MCHC 33.8 g/dL (31.0-37.0); MCV 91.9 fL (80.0-100.0); Mean Platelet Volume 7.3; Monocytes # (A) 0.5 k/uL (0-1.0); Monocytes % (A) 6 %; Neutrophils # (A) 5.1 k/uL (1.3-7.7); Neutrophils % (A) 66 %; Platelet Count 188 k/uL (150-450); RBC 4.49 m/uL (3.80-5.40); RDW 13.8 % (11.5-15.5); WBC 7.7 k/uL (3.8-10.6)
[2017-11-21 18:29] LABS: Albumin 3.8 g/dL (3.5-5.0); Calcium 9.8 mg/dL (8.4-10.2); Potassium 5.2 mmol/L (3.5-5.1); Total Bilirubin 0.8 mg/dL (0.2-1.3); Total Protein 6.9 g/dL (6.3-8.2)
[2017-11-21 19:57] VITALS: BP 168/70; PULSE 73; TEMP 98
== END 2017-11-21 19:57 | disposition home or self-care (01) ==
LOC: EC 16:55
DX: F43.21 Adjustment disorder with depressed mood (principal); R45.851 Suicidal ideations; R23.8 Other skin changes; I12.9 Hypertensive chronic kidney disease with stage 1 through stage 4 chronic kidney disease, or unspecified chronic kidney disease; N18.4 Chronic kidney disease, stage 4 (severe); I25.10 Atherosclerotic heart disease of native coronary artery without angina pectoris; J45.909 Unspecified asthma, uncomplicated; E11.22 Type 2 diabetes mellitus with diabetic chronic kidney disease; M06.9 Rheumatoid arthritis, unspecified; E07.9 Disorder of thyroid, unspecified; G47.30 Sleep apnea, unspecified; I25.2 Old myocardial infarction; Z79.02 Long term (current) use of antithrombotics/antiplatelets; Z79.4 Long term (current) use of insulin; Z79.51 Long term (current) use of inhaled steroids; Z79.82 Long term (current) use of aspirin; Z79.899 Other long term (current) drug therapy
CPT/HCPCS: 36415; 80053; 82075; 85025; 99284

== ENCOUNTER 2018-02-07 06:21 | Inpatient (IN) | payer MEDICARE, OTHER ==
[2018-02-07] MEDS ORDERED: SODIUM CHLORIDE 0.9% 500 ML IV STA (06:30)
[2018-02-07 06:43] LABS: Glucose,Whole Blood 273 mg/dL (75-99)
[2018-02-07 06:44] LABS: Basophils % (A) 0 %; Eosinophils # (A) 0.1 k/uL (0-0.7); Eosinophils % (A) 1 %; HCT 35.4 % (34.0-46.0); HGB 11.9 gm/dL (11.4-16.0); Lymphocytes # (A) 0.7 k/uL (1.0-4.8); Lymphocytes % (A) 12 %; MCH 30.9 pg (25.0-35.0); MCHC 33.7 g/dL (31.0-37.0); MCV 91.6 fL (80.0-100.0); Mean Platelet Volume 7.4; Monocytes # (A) 0.3 k/uL (0-1.0); Monocytes % (A) 5 %; Neutrophils # (A) 4.7 k/uL (1.3-7.7); Neutrophils % (A) 81 %; Platelet Count 199 k/uL (150-450); RBC 3.86 m/uL (3.80-5.40); RDW 13.4 % (11.5-15.5); WBC 5.8 k/uL (3.8-10.6)
[2018-02-07 06:50] LABS: Albumin 3.3 g/dL (3.5-5.0); Calcium 8.9 mg/dL (8.4-10.2); Potassium 4.3 mmol/L (3.5-5.1); Total Bilirubin 0.6 mg/dL (0.2-1.3); Total Protein 6.4 g/dL (6.3-8.2)
[2018-02-07 07:08] LABS: INR 0.9 (<1.2); Prothrombin Time 9.5 sec (9.0-12.0)
--- NOTE | 2018-02-07 07:10 | ED ---
General Adult HPI - General Source: patient Mode of arrival: ambulatory Limitations: no limitations <Tamia Givens - Last Filed: 02/07/18 07:04> <Kyler Lorenzo - Last Filed: 02/07/18 10:03> - General Chief complaint: Recheck/Abnormal Lab/Rx Stated complaint: Diabetic Time Seen by Provider: 02/07/18 06:30 - History of Present Illness Initial comments: 62-year-old female presents the ED via EMS for evaluation of head injury after an apparent fall out of her bed. The patient has very poorly controlled diabetes, she took her medications prior to going to bed last night. Per her family she was found lying beside her bed with her head on the END of the bed so they suspect that she had attempted to sit up and then fell over. The patient does not recall the event. Was found by her granddaughter who noted that the patient was that she describes unresponsive however she was able to get the patient to eat a peach because she was concerned that the patient's mental status may be due to hypoglycemia. The patient's blood glucose was then tested and was noted to be in the 80s, she was then given oral glucose solution and 911 was called because the patient was complaining of pain in the back of her head and she does take Plavix. S arrived on scene found the patient with a blood glucose in the 1 teens, she did seem to be somewhat confused and was given an IV dose of D50. She is transported to the ER for further evaluation. Patient doesn't recall falling out of bed, she complains of pain in her left knee, she has significant injury to this knee in the past and is currently wearing a brace and awaiting meniscus repair which is scheduled for Saturday of next week at an outside hospital. Patient states that the back of her head hurts denies any neck pain or focal neurologic deficits. (Tamia Givens) - Related Data Home Medications Medication Instructions Recorded Confirmed Carvedilol [Coreg] 6.25 mg PO BID 02/23/15 02/07/18 Furosemide [Lasix] 20 mg PO DAILY 02/23/15 02/07/18 amLODIPine BESYLATE [Norvasc] 10 mg PO DAILY 02/23/15 02/07/18 Sodium Bicarbonate 325 mg PO TID 08/06/16 02/07/18 Albuterol Inhaler [Ventolin Hfa 1 - 2 puff INHALATION RT-Q6H PRN 11/21/17 Inhaler] Albuterol Nebulized (Conc) 2.5 mg INHALATION RT-QID PRN 11/21/17 02/07/18 [Ventolin Nebulized (Conc)] Allopurinol [Zyloprim] 300 mg PO DAILY 11/21/17 02/07/18 Atorvastatin [Lipitor] 40 mg PO DAILY 11/21/17 02/07/18 Calcium Acetate [Phoslo] 1,334 mg PO DAILY 11/21/17 02/07/18 Cholecalciferol (Vitamin D3) 2,000 unit PO DAILY 11/21/17 02/07/18 [Vitamin D3] Clopidogrel [Plavix] 75 mg PO DAILY 11/21/17 02/07/18 DULoxetine HCL [Cymbalta] 30 mg PO BID 11/21/17 02/07/18 Ferrous Sulfate [Feosol] 650 mg PO DAILY 11/21/17 02/07/18 Fluticasone Propionate [Flovent 2 puff INHALATION RT-BID 11/21/17 02/07/18 Hfa 110mcg] Gabapentin [Neurontin] 400 mg PO TID 11/21/17 02/07/18 Glucagon Emergency Kit 1 mg IM ONCE 11/21/17 02/07/18 Insulin Aspart [NovoLOG Flexpen] See Protocol SQ TID PRN 11/21/17 02/07/18 Insulin Aspart [Novolog Flexpen] 5 unit SQ AC-TID 11/21/17 02/07/18 Insulin Degludec [Tresiba 40 unit SQ HS 11/21/17 02/07/18 Flextouch U-200] Levothyroxine Sodium [Synthroid] 175 mcg PO DAILY 11/21/17 02/07/18 Montelukast [Singulair] 10 mg PO HS 11/21/17 02/07/18 Nitroglycerin Sl Tabs [Nitrostat] 0.4 mg SUBLINGUAL Q5M PRN 11/21/17 02/07/18 Polyethylene Glycol 3350 [Miralax] 17 gm PO DAILY PRN 11/21/17 02/07/18 Tofacitinib Citrate [Xeljanz Xr] 11 mg PO DAILY 11/21/17 02/07/18 cloNIDine HCL [Catapres] 0.2 mg PO HS 11/21/17 02/07/18 Aspirin 81 mg PO DAILY 02/07/18 02/07/18 HYDROcodone/APAP 7.5-325MG [[place] 1 tab PO Q4-6H PRN 02/07/18 02/07/18 7.5-325] Allergies Allergy/AdvReac Type Severity Reaction Status Date / Time No Known Allergies Allergy Verified 02/07/18 06:27 Review of Systems ROS Other: All systems not noted in ROS Statement are negative. <Tamia Givens P - Last Filed: 02/07/18 07:04> ROS Other: All systems not noted in ROS Statement are negative. <Kyler Lorenzo - Last Filed: 02/07/18 10:03> ROS Statement: Those systems with pertinent positive or pertinent negative responses have been documented in the HPI. Past Medical History Past Medical History: Asthma, Coronary Artery Disease (CAD), Diabetes Mellitus, Hypertension, Myocardial Infarction ([place]), Rheumatoid Arthritis ([place]), Sleep Apnea /CPAP/BIPAP, Thyroid Disorder Additional Past Medical History / Comment(s): kidney disease stage 4, Last Myocardial Infarction Date:: 2009 History of Any Multi-Drug Resistant Organisms: None Reported Past Surgical History: Adenoidectomy, Back Surgery, Cholecystectomy, Heart Catheterization With Stent, Tonsillectomy Additional Past Surgical History / Comment(s): thyroidectomy, torn meniscus left knee Past Anesthesia/Blood Transfusion Reactions: No Reported Reaction Date of Last Stent Placement:: 2010 Past Psychological History: Anxiety, Depression Smoking Status: Never smoker Past Alcohol Use History: None Reported Past Drug Use History: None Reported - Past Family History Mother Family Medical History: Asthma Additional Family Medical History / Comment(s): epilepsy Father Additional Family Medical History / Comment(s): many heart problems <Tamia Givens P - Last Filed: 02/07/18 07:04> General Exam Limitations: no limitations General appearance: alert Head exam: Present: atraumatic, normocephalic Eye exam: Present: PERRL ENT exam: Present: mucous membranes dry Neck exam: Present: normal inspection, full ROM. Absent: tenderness Respiratory exam: Absent: respiratory distress Cardiovascular Exam: Present: regular rate, normal rhythm GI/Abdominal exam: Present: soft, other (Obese). Absent: distended Rectal exam: Present: deferred Extremities exam: Present: other (Left lower extremity in a knee immobilizer). Absent: pedal edema Neurological exam: Present: alert, oriented X3 (Oriented to person place and date, confused about syncopal event or events leading up to EMS arrival) Psychiatric exam: Present: flat affect Skin exam: Present: warm, dry, other (Multiple contusions of bilateral upper and lower extremities, patient does have a history of multiple falls in the past and is on Plavix.) <Tamia Givens - Last Filed: 02/07/18 07:04> Course <Tamia Givens - Last Filed: 02/07/18 07:04> <Kyler Lorenzo - Last Filed: 02/07/18 10:03> Vital Signs 02/07/18 02/07/18 06:22 08:27 Temperature 96 F L Pulse Rate 78 82 Respiratory 18 18 Rate Blood Pressure 138/67 134/72 O2 Sat by Pulse 98 94 L Oximetry - Reevaluation(s) Reevaluation #1: 02/07/18 10:03 Patient is reevaluated and evaluated, no recurrent drops in blood sugar (Kyler Lorenzo) EKG Findings - EKG Comments: EKG Findings:: EKG obtained at 6:55 AM with a sinus rhythm with a first-degree AV block as well as a left bundle-branch block, no acute ST elevations or depressions. <Tamia Givens - Last Filed: 02/07/18 07:04> Medical Decision Making - Lab Data Result diagrams: 02/07/18 06:27 02/07/18 06:27 <Tamia Givens - Last Filed: 02/07/18 07:04> - Lab Data Result diagrams: 02/07/18 06:27 02/07/18 06:27 - Radiology Data Radiology results: report reviewed (CT brain C-spine and chest x-ray are negative), image reviewed <Kyler Lorenzo - Last Filed: 02/07/18 10:03> - Medical Decision Making The patient was (Tamia Givens) 62 female the ER for evaluation of syncopal episode likely hypoglycemic event. Patient does have UTI and dehydration with worsening renal failure. Patient will be admitted for IV antibiotics, monitoring of syncopal event blood sugar. ( Kyler Lorenzo) - Lab Data Lab Results 02/07/18 02/07/18 02/07/18 Range/Units 06:27 06:27 06:27 WBC 5.8 (3.8-10.6) k/uL RBC 3.86 (3.80-5.40) m/uL Hgb 11.9 (11.4-16.0) gm/dL Hct 35.4 (34.0-46.0) % MCV 91.6 (80.0-100.0) fL MCH 30.9 (25.0-35.0) pg MCHC 33.7 (31.0-37.0) g/dL RDW 13.4 (11.5-15.5) % Plt Count 199 (150-450) k/uL Neutrophils % 81 % Lymphocytes % 12 % Monocytes % 5 % Eosinophils % 1 % Basophils % 0 % Neutrophils # 4.7 (1.3-7.7) k/uL Lymphocytes # 0.7 L (1.0-4.8) k/uL Monocytes # 0.3 (0-1.0) k/uL Eosinophils # 0.1 (0-0.7) k/uL Basophils # 0.0 (0-0.2) k/uL PT 9.5 (9.0-12.0) sec INR 0.9 (<1.2) APTT 21.8 L (22.0-30.0) sec Sodium 137 (137-145) mmol/L Potassium 4.3 (3.5-5.1) mmol/L Chloride 102 (98-107) mmol/L Carbon Dioxide 27 (22-30) mmol/L Anion Gap 8 mmol/L BUN 43 H (7-17) mg/dL Creatinine 2.74 H (0.52-1.04) mg/dL Est GFR (CKD-EPI)AfAm 21 (>60 ml/min/1.73 sqM) Est GFR (CKD-EPI)NonAf 18 (>60 ml/min/1.73 sqM) Glucose 273 H (74-99) mg/dL POC Glucose (mg/dL) (75-99) mg/dL POC Glu Hrbp ID Calcium 8.9 (8.4-10.2) mg/dL Total Bilirubin 0.6 (0.2-1.3) mg/dL AST 39 H (14-36) U/L ALT 34 (9-52) U/L Alkaline Phosphatase 84 (38-126) U/L Troponin I (0.000-0.034) ng/mL Total Protein 6.4 (6.3-8.2) g/dL Albumin 3.3 L (3.5-5.0) g/dL Urine Color Urine Appearance (Clear) Urine pH (5.0-8.0) Ur Specific [place] (1.001-1.035) Urine Protein (Negative) Urine Glucose (UA) (Negative) Urine Ketones (Negative) Urine Blood (Negative) Urine Nitrite (Negative) Urine Bilirubin (Negative) Urine Urobilinogen (<2.0) mg/dL Ur Leukocyte Esterase (Negative) Urine RBC (0-5) /hpf Urine WBC (0-5) /hpf Ur Squamous Epith Cells (0-4) /hpf Amorphous Sediment (None) /hpf Blood Type Blood Type Recheck Antibody Screen Spec Expiration Date 02/07/18 02/07/18 02/07/18 Range/Units 06:27 06:27 06:30 WBC (3.8-10.6) k/uL RBC (3.80-5.40) m/uL Hgb (11.4-16.0) gm/dL Hct (34.0-46.0) % MCV (80.0-100.0) fL MCH (25.0-35.0) pg MCHC (31.0-37.0) g/dL RDW (11.5-15.5) % Plt Count (150-450) k/uL Neutrophils % % Lymphocytes % % Monocytes % % Eosinophils % % Basophils % % Neutrophils # (1.3-7.7) k/uL Lymphocytes # (1.0-4.8) k/uL Monocytes # (0-1.0) k/uL Eosinophils # (0-0.7) k/uL Basophils # (0-0.2) k/uL PT (9.0-12.0) sec INR (<1.2) APTT (22.0-30.0) sec Sodium (137-145) mmol/L Potassium (3.5-5.1) mmol/L Chloride (98-107) mmol/L Carbon Dioxide (22-30) mmol/L Anion Gap mmol/L BUN (7-17) mg/dL Creatinine (0.52-1.04) mg/dL Est GFR (CKD-EPI)AfAm (>60 ml/min/1.73 sqM) Est GFR (CKD-EPI)NonAf (>60 ml/min/1.73 sqM) Glucose (74-99) mg/dL POC Glucose (mg/dL) 273 H (75-99) mg/dL POC Glu Hrbp ID Lynette Estrella Calcium (8.4-10.2) mg/dL Total Bilirubin (0.2-1.3) mg/dL AST (14-36) U/L ALT (9-52) U/L Alkaline Phosphatase (38-126) U/L Troponin I 0.026 (0.000-0.034) ng/mL Total Protein (6.3-8.2) g/dL Albumin (3.5-5.0) g/dL Urine Color Urine Appearance (Clear) Urine pH (5.0-8.0) Ur Specific [place] (1.001-1.035) Urine Protein (Negative) Urine Glucose (UA) (Negative) Urine Ketones (Negative) Urine Blood (Negative) Urine Nitrite (Negative) Urine Bilirubin (Negative) Urine Urobilinogen (<2.0) mg/dL Ur Leukocyte Esterase (Negative) Urine RBC (0-5) /hpf Urine WBC (0-5) /hpf Ur Squamous Epith Cells (0-4) /hpf Amorphous Sediment (None) /hpf Blood Type A Negative Blood Type Recheck No Antibody Screen NEGATIVE Spec Expiration Date 02/10/2018 - 232602/07/18 Range/Units 08:24 WBC (3.8-10.6) k/uL RBC (3.80-5.40) m/uL Hgb (11.4-16.0) gm/dL Hct (34.0-46.0) % MCV (80.0-100.0) fL MCH (25.0-35.0) pg MCHC (31.0-37.0) g/dL RDW (11.5-15.5) % Plt Count (150-450) k/uL Neutrophils % % Lymphocytes % % Monocytes % % Eosinophils % % Basophils % % Neutrophils # (1.3-7.7) k/uL Lymphocytes # (1.0-4.8) k/uL Monocytes # (0-1.0) k/uL Eosinophils # (0-0.7) k/uL Basophils # (0-0.2) k/uL PT (9.0-12.0) sec INR (<1.2) APTT (22.0-30.0) sec Sodium (137-145) mmol/L Potassium (3.5-5.1) mmol/L Chloride (98-107) mmol/L Carbon Dioxide (22-30) mmol/L Anion Gap mmol/L BUN (7-17) mg/dL Creatinine (0.52-1.04) mg/dL Est GFR (CKD-EPI)AfAm (>60 ml/min/1.73 sqM) Est GFR (CKD-EPI)NonAf (>60 ml/min/1.73 sqM) Glucose (74-99) mg/dL POC Glucose (mg/dL) (75-99) mg/dL POC Glu Hrbp ID Calcium (8.4-10.2) mg/dL Total Bilirubin (0.2-1.3) mg/dL AST (14-36) U/L ALT (9-52) U/L Alkaline Phosphatase (38-126) U/L Troponin I (0.000-0.034) ng/mL Total Protein (6.3-8.2) g/dL Albumin (3.5-5.0) g/dL Urine Color Light Yellow Urine Appearance Clear (Clear) Urine pH 7.0 (5.0-8.0) Ur Specific [place] 1.007 (1.001-1.035) Urine Protein 1+ H (Negative) Urine Glucose (UA) 2+ H (Negative) Urine Ketones Negative (Negative) Urine Blood Negative (Negative) Urine Nitrite Negative (Negative) Urine Bilirubin Negative (Negative) Urine Urobilinogen <2.0 (<2.0) mg/dL Ur Leukocyte Esterase Negative (Negative) Urine RBC 2 (0-5) /hpf Urine WBC 1 (0-5) /hpf Ur Squamous Epith Cells 1 (0-4) /hpf Amorphous Sediment Rare H (None) /hpf Blood Type Blood Type Recheck Antibody Screen Spec Expiration Date Disposition <Tamia Givens - Last Filed: 02/07/18 07:04> Is patient prescribed a controlled substance at d/c from ED?: No <Kyler Lorenzo - Last Filed: 02/07/18 10:03> Clinical Impression: UTI (urinary tract infection), ARF (acute renal failure), Hypoglycemia, Malaise and fatigue, Syncope Disposition: ADMITTED IP TO THIS HOSP Condition: Fair Referrals: Jhonathan Baca MD [Primary Care Provider] - 1-2 days
[2018-02-07 07:12] LABS: Partial Thromboplastin Time 21.8 sec (22.0-30.0)
--- NOTE | 2018-02-07 07:45 | CT ---
EXAMINATION TYPE: CT brain j carlos wo con DATE OF EXAM: 02/07/2018 COMPARISON: 11/04/2015 HISTORY: Fall. Head and neck pain. CT DLP: 1782.5 mGycm. Automated Exposure Control for Dose Reduction was Utilized. TECHNIQUE: CT scan of the head and cervical spine are performed without contrast. FINDINGS: There is no acute intracranial hemorrhage, mass effect, or midline shift identified. The ventricles and sulci are within normal limits in size. The globes are intact. Solitary punctate dys trophic basal ganglia calcification is seen on the right. There is circumferential moderate to severe mucosal thickening of the maxillary and ethmoid sinuses with mild mucosal thickening in the sphenoid sinuses and scant mucosal thickening in the inferior frontal sinuses. Cerumen is incidentally noted within the external auditory canals. Mastoid air cells are well aerated. Cervical spine is visualized in its entirety from C1 through upper thoracic levels and demonstrates s atisfactory alignment without evidence of acute fracture or dislocation. There is straightening of us ual cervical lordosis. Mild multilevel degenerative changes of the cervical spine are noted. No signi ficant spinal canal stenosis is seen on CT. Evaluation of the spinal canal is limited on CT. Preverte bral soft tissue appears within normal limits. The C1-C2 articulation is unremarkable. Pleural thic kening is seen multifocally within the lung apices. Atherosclerosis is incidentally noted of the [place]and[place] tid arteries and great vessels. IMPRESSION: 1. There is no acute fracture or dislocation evident in the cervical spine. 2. No acute intracranial hemorrhage, mass effect, or midline shift is seen. 3. Moderate to severe pansinusitis. 4. Mild multilevel degenerative changes of the cervical spine.
[2018-02-07] MEDS ORDERED: SODIUM CHLORIDE 0.9% 1,000 ML IV STA (08:36)
[2018-02-07 09:27] LABS: Amorphous Sediment,Urine Rare /hpf; Appearance,Urine Clear (Clear); Bilirubin,Urine Negative (Negative); Blood,Urine Negative (Negative); Color,Urine Light Yellow; Glucose,Urine (UA) 2+ (Negative); Ketones,Urine Negative (Negative); Leukocyte Esterase,Urine Negative (Negative); Nitrite,Urine Negative (Negative); Protein,Urine 1+ (Negative); RBC,Urine 2 /hpf (0-5); Specific Gravity,Urine 1.007 (1.001-1.035); Squamous Epithelial Cell,Urine 1 /hpf (0-4); Urobilinogen,Urine <2.0 mg/dL (<2.0); WBC,Urine 1 /hpf (0-5)
[2018-02-07] MEDS ORDERED: cefTRIAXone 2,000 MG in SODIUM CHLORIDE 0.9% 100 ML IVPB STA (10:00)
[2018-02-07] MEDS ORDERED: cefTRIAXone 2,000 MG VIAL IVPB STA (10:09)
[2018-02-07] MEDS ORDERED: cefTRIAXone IN SWFI 2,000 MG/20 ML SYRINGE IVP STA (10:10)
[2018-02-07 11:20] LABS: Glucose,Whole Blood 251 mg/dL (75-99)
[2018-02-07] MEDS ORDERED: ALBUTEROL NEB (CONC) 2.5 MG/0.5 ML INHALATION PRN (13:32)
[2018-02-07] MEDS ORDERED: NITROGLYCERIN SL TABS 0.4 MG TAB SUBLINGUAL PRN (13:32)
[2018-02-07] MEDS ORDERED: GLUCAGON EMERGENCY 1 MG KIT IM PRN (13:32)
[2018-02-07] MEDS ORDERED: ALBUTEROL NEBULIZED 2.5 MG/3 ML INHALATION PRN (13:32)
[2018-02-07] MEDS: HYDROcodone/APAP 7.5-325MG 1 EACH TAB PO PRN ×2 (14:17→20:26)
[2018-02-07] MEDS: SODIUM BICARBONATE TAB 650 MG TAB PO SCH ×2 (14:44→21:06)
[2018-02-07] MEDS: GABAPENTIN 400 MG CAP PO SCH ×2 (14:44→21:06)
[2018-02-07] MEDS: amLODIPine 10 MG TAB PO SCH (14:45)
[2018-02-07] MEDS: DULoxetine HCL 30 MG CAPSULE.DR PO SCH (14:45)
[2018-02-07] MEDS: FUROSEMIDE 20 MG TAB PO SCH (14:45)
[2018-02-07] MEDS: CALCIUM ACETATE 667 MG CAP PO SCH (16:48)
[2018-02-07] MEDS: CARVEDILOL 6.25 MG TAB PO SCH (16:48)
[2018-02-07 17:31] LABS: Glucose,Whole Blood 219 mg/dL (75-99)
[2018-02-07] MEDS: INSULIN ASPART 100 UNIT/ML 1 ML 10 ML VIAL SQ SCH (17:45)
[2018-02-07 19:10] LABS: Hemoglobin A1C 8.6 % (4.0-6.0)
[2018-02-07] MEDS: FLUTICASONE 110 MCG INHALER INHALATION SCH (20:04)
[2018-02-07 20:25] LABS: Glucose,Whole Blood 243 mg/dL (75-99)
[2018-02-07] MEDS ORDERED: INSULIN DETEMIR 100 UNIT/ML 10 ML VIAL SQ SCH (21:00)
[2018-02-07] MEDS: cloNIDine HCL 0.2 MG TAB PO SCH (21:02)
[2018-02-07] MEDS: MONTELUKAST 10 MG TAB PO SCH (21:02)
[2018-02-07] MEDS: INSULIN DETEMIR 100 UNIT/ML 10 ML VIAL SQ SCH (21:04)
[2018-02-08] MEDS: HYDROcodone/APAP 7.5-325MG 1 EACH TAB PO PRN ×4 (02:47→20:18)
[2018-02-08] MEDS: LEVOTHYROXINE 100 MCG TAB PO SCH (06:19)
[2018-02-08 06:55] LABS: Glucose,Whole Blood 116 mg/dL (75-99)
[2018-02-08] MEDS: FLUTICASONE 110 MCG INHALER INHALATION SCH ×2 (07:08→20:29)
[2018-02-08] MEDS: INSULIN ASPART 100 UNIT/ML 1 ML 10 ML VIAL SQ SCH ×5 (07:44→20:36)
[2018-02-08] MEDS: cefTRIAXone IN SWFI 1,000 MG/10 ML SYRINGE IVP SCH (07:56)
[2018-02-08] MEDS: ENOXAPARIN 40 MG/0.4 ML SYRINGE SQ SCH (07:56)
[2018-02-08] MEDS: amLODIPine 10 MG TAB PO SCH (07:57)
[2018-02-08] MEDS: SODIUM BICARBONATE TAB 650 MG TAB PO SCH ×3 (07:57→22:17)
[2018-02-08] MEDS: CARVEDILOL 6.25 MG TAB PO SCH ×2 (07:57→17:47)
[2018-02-08] MEDS: ATORVASTATIN 40 MG TAB PO SCH (07:57)
[2018-02-08] MEDS: CALCIUM ACETATE 667 MG CAP PO SCH ×3 (07:57→17:47)
[2018-02-08] MEDS: FUROSEMIDE 20 MG TAB PO SCH (07:58)
[2018-02-08] MEDS: DULoxetine HCL 30 MG CAPSULE.DR PO SCH (07:58)
[2018-02-08] MEDS: ALLOPURINOL 300 MG TAB PO SCH (07:58)
[2018-02-08] MEDS: FERROUS SULFATE 325 MG TAB PO SCH (07:58)
[2018-02-08] MEDS: GABAPENTIN 400 MG CAP PO SCH ×3 (07:58→22:17)
[2018-02-08] MEDS: CHOLECALCIFEROL 1,000 UNIT TAB PO SCH (07:58)
[2018-02-08] MEDS ORDERED: ASPIRIN 81 MG PO SCH (09:00)
[2018-02-08] MEDS ORDERED: CLOPIDOGREL 75 MG TAB PO SCH (09:00)
[2018-02-08] MEDS: IPRATROPIUM-ALBUTEROL 3 ML NEB INHALATION PRN ×2 (09:47→23:13)
[2018-02-08 11:29] LABS: Glucose,Whole Blood 211 mg/dL (75-99)
[2018-02-08] MEDS: SODIUM CHLORIDE 0.9% 1,000 ML IV SCH (13:06)
[2018-02-08] MEDS ORDERED: ALPRAZolam 0.25 MG TAB PO PRN (15:04)
[2018-02-08] MEDS ORDERED: ACETAMINOPHEN TAB 500 MG TAB PO PRN (15:04)
[2018-02-08] MEDS ORDERED: TEMAZEPAM 15 MG CAP PO PRN (15:04)
--- NOTE | 2018-02-08 16:23 | HP ---
HISTORY AND PHYSICAL DATE OF SERVICE: 02/08/2018 I am covering for Dr. Baca. HISTORY OF PRESENT ILLNESS: This 62-year-old woman with a past medical history of multiple medical problems including history of asthma, CAD, CHF, COPD, diabetes, hypertension, hyperlipidemia, myocardial infarction being followed by Dr. Baca in the outpatient setting apparently had an episode of syncope. Patient apparently fell out of bed. Patient had poorly controlled blood sugar. The patient is lying beside the bed and the patient admitted for further evaluation and treatment. Patient had some gait dysfunction also. There is no history of fever, rigors or chills. There is no history any headache. No history of any hematochezia or melena at this time. The patient had some concerns for hypoglycemia. Patient had some glucose sugar and the patient taken to [facility] for further evaluation and treatment. Blood sugars are mostly more than 200. At this time hemoglobin A1c is available at this time. As far as other labs are concerned, the patient also had features of renal failure with creatinine 2.74. Her baseline appears to be around 2 which indicating stage 3 chronic kidney disease. There is no history of fever, rigors. PAST MEDICAL HISTORY: History of asthma, CAD and CHF, COPD, diabetes, GI bleed. MEDICATIONS PRIOR TO ADMISSION: Home medications are: 1. Catapres 0.2 q.h.s. 2. Norvasc 10 mg daily. 4. Sodium bicarb 320 mg p.o. t.i.d. 5. MiraLAX 17 g p.r.n. 6. Nitrostat 0.4 sublingual. 7. Singular 10 mg q.h.s. 8. Synthroid 175 mcg p.o. daily. 9. DuoNeb q.i.d. and p.r.n. 11.NovoLog 5 units a.c. t.i.d. 12.Levofloxacin. 13.Freeport 7.5 q.4h p.r.n. 15.Neurontin 400 mg p.o. t.i.d. 16.Lasix 20 mg p.o. daily. 17.Flovent 2 puffs b.i.d. 18.Iron sulfate 650 mg p.o. daily. 19.Cymbalta 30 mg p.o. daily. 20.Plavix 10 mg. 21.Vitamin D3 2000 mg daily. 22.Coreg 6.25 mg p.o. b.i.d. 23.PhosLo 1334 mg p.o. t.i.d. 24.Lipitor 40 mg. 25.Aspirin 81 mg. 27.Ventolin HFA 1 puff q.6h p.r.n. 29.Ventolin 2.5 q.i.d. p.r.n. ALLERGIES: None. FAMILY HISTORY: History of in the family. SOCIAL HISTORY: No history of smoking. No history of alcohol intake. REVIEW OF SYSTEMS: ENT: Diminished vision. Diminished hearing. Cardio system: No angina or palpitations. Respiratory: No cough. GI as mentioned earlier. : As mentioned earlier. Allergy/Immunology: No asthma or hay fever. Musculoskeletal: As mentioned earlier. Hematology/Oncology: No history of anemia. ENDOCRINE: As mentioned earlier. CONSTITUTIONAL: As mentioned earlier. Dermatology: Negative. Rheumatology: Negative. Psychiatry: As mentioned earlier. PHYSICAL EXAMINATION: Alert oriented x2. Pulse is 71, blood pressure 143/60, respirations 18. Temperature 98.4, pulse ox 97 percent on 2 L. HEENT is conjunctivae normal. Oral mucosa moist. Neck is no jugular venous distention. No carotid bruit. No lymph node enlargement. Cardiovascular system: S1, S2 muffled. Respiratory: Breath sounds diminished in the bases. Scattered rhonchi. No crackles. ABDOMEN: Soft, nontender. No mass palpable. No guarding. No rigidity. LEGS: No edema. No swelling. NERVOUS SYSTEM: Higher functions as mentioned earlier. Moves all four extremities. No focal motor or sensory deficits. Lymphatics: No lymph nodes palpable in the neck, axillae or groin. Skin: No ulcer, rash or bleeding. LAB STUDIES: CBC within normal limits. PT is 9.5, INR 0.9, creatinine is 2.74, glucose 243. UA noted. ASSESSMENT: 1. Syncope for evaluation, possible transient ischemic attack. 2. Diabetes type 2, uncontrolled. 3. Possibly urinary tract infection. 4. History of asthma. 5. Coronary artery disease. 6. History of congestive heart failure. 7. Chronic obstructive pulmonary disease. 8. Diabetes mellitus type 2. 9. Gastrointestinal bleed. 10.Hypertension. 11.Hyperlipidemia. 12.History of myocardial infarction. 13.History of rheumatoid arthritis. 14.History of sleep apnea. 15.Syncope. 16.History of hypothyroidism. 17.History of degenerative joint disease. 18.History of adenoidectomy. 19.History of coronary artery disease/stent. 20.History of anxiety/depression. RECOMMENDATIONS AND DISCUSSION: In this 62-year-old woman who presented with multiple complex medical issues, we will monitor the patient closely. Continue the current medications, management and symptomatic treatment. Otherwise, continue the empiric antibiotics. Other than that, I would recommend to resume the home medications. Monitor blood sugars closely. Hemoglobin A1c is unknown at this time. Repeat labs. Guarded prognosis because of multiple complex medical issues. Further recommendations to follow. MMODL / IJN: [id number] / DAMON
[2018-02-08 17:08] LABS: Glucose,Whole Blood 175 mg/dL (75-99)
[2018-02-08] MEDS: POLYETHYLENE GLYCOL 3350 17 GM POWD.PACK PO PRN (17:47)
[2018-02-08 20:15] LABS: Glucose,Whole Blood 187 mg/dL (75-99)
[2018-02-08] MEDS: cloNIDine HCL 0.2 MG TAB PO SCH (20:18)
[2018-02-08] MEDS: MONTELUKAST 10 MG TAB PO SCH (20:18)
[2018-02-08] MEDS: INSULIN DETEMIR 100 UNIT/ML 10 ML VIAL SQ SCH (20:19)
[2018-02-09] MEDS: HYDROcodone/APAP 7.5-325MG 1 EACH TAB PO PRN ×4 (01:13→22:34)
[2018-02-09] MEDS: SODIUM CHLORIDE 0.9% 1,000 ML IV SCH ×2 (01:14→16:54)
[2018-02-09] MEDS: CALCIUM ACETATE 667 MG CAP PO SCH ×2 (06:19→17:21)
[2018-02-09] MEDS: LEVOTHYROXINE 100 MCG TAB PO SCH (06:23)
[2018-02-09 06:47] LABS: Basophils % (A) 0 %; Eosinophils # (A) 0.1 k/uL (0-0.7); Eosinophils % (A) 2 %; HCT 31.2 % (34.0-46.0); HGB 10.4 gm/dL (11.4-16.0); Lymphocytes # (A) 1.1 k/uL (1.0-4.8); Lymphocytes % (A) 28 %; MCH 30.8 pg (25.0-35.0); MCHC 33.1 g/dL (31.0-37.0); MCV 92.9 fL (80.0-100.0); Mean Platelet Volume 6.9; Monocytes # (A) 0.3 k/uL (0-1.0); Monocytes % (A) 8 %; Neutrophils # (A) 2.3 k/uL (1.3-7.7); Neutrophils % (A) 59 %; Platelet Count 164 k/uL (150-450); RBC 3.37 m/uL (3.80-5.40); RDW 13.7 % (11.5-15.5); WBC 3.9 k/uL (3.8-10.6)
[2018-02-09 06:49] LABS: Potassium 4.5 mmol/L (3.5-5.1)
[2018-02-09 07:05] LABS: Glucose,Whole Blood 140 mg/dL (75-99)
[2018-02-09] MEDS: FLUTICASONE 110 MCG INHALER INHALATION SCH ×2 (07:10→18:35)
[2018-02-09] MEDS: IPRATROPIUM-ALBUTEROL 3 ML NEB INHALATION PRN (07:10)
[2018-02-09] MEDS: cefTRIAXone IN SWFI 1,000 MG/10 ML SYRINGE IVP SCH (07:41)
[2018-02-09] MEDS: INSULIN ASPART 100 UNIT/ML 1 ML 10 ML VIAL SQ SCH ×7 (07:41→21:53)
[2018-02-09] MEDS: ENOXAPARIN 40 MG/0.4 ML SYRINGE SQ SCH (07:41)
[2018-02-09] MEDS: amLODIPine 10 MG TAB PO SCH (07:42)
[2018-02-09] MEDS: CHOLECALCIFEROL 1,000 UNIT TAB PO SCH (07:42)
[2018-02-09] MEDS: FERROUS SULFATE 325 MG TAB PO SCH (07:42)
[2018-02-09] MEDS: GABAPENTIN 400 MG CAP PO SCH ×3 (07:43→21:53)
[2018-02-09] MEDS: DULoxetine HCL 30 MG CAPSULE.DR PO SCH (07:43)
[2018-02-09] MEDS: SODIUM BICARBONATE TAB 650 MG TAB PO SCH ×3 (07:43→21:53)
[2018-02-09] MEDS: ATORVASTATIN 40 MG TAB PO SCH (07:43)
[2018-02-09] MEDS: PANTOPRAZOLE 40 MG TABLET PO SCH (07:43)
[2018-02-09] MEDS: CARVEDILOL 6.25 MG TAB PO SCH ×2 (07:43→17:21)
[2018-02-09] MEDS: FUROSEMIDE 20 MG TAB PO SCH (07:43)
[2018-02-09] MEDS: ALLOPURINOL 300 MG TAB PO SCH (07:43)
[2018-02-09] MEDS ORDERED: INSULIN DEGLUDEC 40 UNIT SQ SCH (09:00)
[2018-02-09] MEDS ORDERED: DOCUSATE 100 MG CAP PO PRN (11:24)
[2018-02-09 11:28] LABS: Glucose,Whole Blood 101 mg/dL (75-99)
[2018-02-09] MEDS: POLYETHYLENE GLYCOL 3350 17 GM POWD.PACK PO PRN (11:42)
[2018-02-09 16:49] LABS: Glucose,Whole Blood 256 mg/dL (75-99)
[2018-02-09] MEDS ORDERED: ASPIRIN 81 MG PO SCH (17:00)
--- NOTE | 2018-02-09 21:30 | PN ---
PROGRESS NOTE DATE OF SERVICE: 02/09/2018 I am covering for Dr. Baca. HISTORY OF PRESENT ILLNESS: This 62-year-old woman with a past medical history of multiple medical problems was admitted with uncontrolled diabetes mellitus type 2 with hypoglycemia and syncope. The patient has UTI also. No chest pain. No palpitations. No fever. PHYSICAL EXAM: Alert and oriented times three. Pulse is 70, blood pressure 172/77, respiration 18, temperature 98.2, pulse ox 98 percent on room air. HEENT: Conjunctivae normal. Oral mucosa moist. Neck is no jugular venous distention. No carotid bruit. No lymph node enlargement. Cardiovascular System: S1, S2 muffled. Respirations: Breath sounds diminished in the bases. A few scattered rhonchi. No crackles. ABDOMEN: Soft, nontender. Legs are no edema, no swelling. Central nervous system: No focal deficits. LAB STUDIES: WBC 3.8, hemoglobin 10.4. Creatinine is 1.88. ASSESSMENT: 1. Syncope for evaluation, possible acute transient ischemic attack or vasovagal. 2. Diabetes mellitus type 2 with hypoglycemia, uncontrolled. 3. Urinary tract infection, present on admission. 4. History of asthma. 5. Coronary artery disease. 6. History of congestive heart failure. 7. Chronic obstructive pulmonary disease. 8. Diabetes mellitus type 2. 9. Gastrointestinal bleed. 10.Hypertension. 11.Hyperlipidemia. 12.History of myocardial infarction. 13.History of rheumatoid arthritis. 14.Sleep apnea. 15.History of syncope. 16.History of hypothyroidism. 17.History of degenerative joint disease. 18.History of adenoidectomy. 19.History of coronary artery disease, stent. 20.History of anxiety, depression. RECOMMENDATIONS AND DISCUSSION: Recommend to continue current medications, continue with monitoring and symptomatic treatment. Otherwise, at this time, we will monitor the patient closely. Continue the antibiotics. Otherwise I would also recommend neurovascular workup. 2D echo and carotid Doppler to complete the workup. Continue with current medications. Also check lipid panel, antiplatelet agents. Further recommendations to follow. MMODL / IJN: [id number] /
[2018-02-09] MEDS: cloNIDine HCL 0.2 MG TAB PO SCH (21:53)
[2018-02-09] MEDS: MONTELUKAST 10 MG TAB PO SCH (21:53)
[2018-02-09] MEDS: INSULIN DETEMIR 100 UNIT/ML 10 ML VIAL SQ SCH (21:54)
[2018-02-09 21:58] LABS: Glucose,Whole Blood 135 mg/dL (75-99)
[2018-02-10] MEDS: SODIUM CHLORIDE 0.9% 1,000 ML IV SCH ×2 (05:49→15:23)
[2018-02-10] MEDS: LEVOTHYROXINE 100 MCG TAB PO SCH (06:08)
[2018-02-10] MEDS: HYDROcodone/APAP 7.5-325MG 1 EACH TAB PO PRN ×4 (06:45→21:06)
[2018-02-10] MEDS: IPRATROPIUM-ALBUTEROL 3 ML NEB INHALATION PRN (07:09)
[2018-02-10] MEDS: FLUTICASONE 110 MCG INHALER INHALATION SCH ×2 (07:09→20:47)
[2018-02-10 07:24] LABS: Glucose,Whole Blood 60 mg/dL (75-99)
[2018-02-10] MEDS: INSULIN ASPART 100 UNIT/ML 1 ML 10 ML VIAL SQ SCH ×7 (07:28→21:04)
[2018-02-10 07:34] LABS: Basophils % (A) 0 %; Eosinophils # (A) 0.1 k/uL (0-0.7); Eosinophils % (A) 3 %; HCT 33.5 % (34.0-46.0); HGB 10.9 gm/dL (11.4-16.0); Lymphocytes # (A) 1.1 k/uL (1.0-4.8); Lymphocytes % (A) 26 %; MCH 30.2 pg (25.0-35.0); MCHC 32.5 g/dL (31.0-37.0); Mean Platelet Volume 7.4; Monocytes # (A) 0.4 k/uL (0-1.0); Monocytes % (A) 9 %; Neutrophils # (A) 2.6 k/uL (1.3-7.7); Neutrophils % (A) 60 %; Platelet Count 195 k/uL (150-450); RDW 13.7 % (11.5-15.5); WBC 4.3 k/uL (3.8-10.6)
[2018-02-10 07:50] LABS: Calcium 9.4 mg/dL (8.4-10.2); Potassium 4.6 mmol/L (3.5-5.1)
--- NOTE | 2018-02-10 08:20 | P.PN ---
Subjective Progress Note Date: 02/10/18 Principal diagnosis: This is a continue prednisone a 62-year-old white female essentially admitted for syncopal episode with acute renal failure and UTI. The patient is somewhat concerned because she was scheduled for knee repair today in [place]. However , she has significant falling. 6 episode as otherwise noted. Question low blood sugar element. She typically doesn't eat more at home than she does here. She's also was somewhat dissatisfied with the on-call physician this past weekend. No voiding difficulties are stated. No presyncope stated today. The patient is otherwise scheduled for appropriate carotid Doppler and echocardiogram. We will back off on her insulin dosing today since blood sugar was somewhat low. Objective - Vital Signs Vital signs: Vital Signs Temp 97.3 F L 02/09/18 22:00 Pulse 76 02/10/18 07:22 Resp 16 02/09/18 22:00 BP 159/58 02/09/18 22:00 Pulse Ox 97 02/09/18 22:00 Intake & Output 02/09/18 02/10/18 02/10/18 18:59 06:59 18:59 Intake Total 525 1490 Balance 525 1490 Intake: Intake, IV Titration 525 900 Amount Sodium Chloride 0.9% 1, 525 900 000 ml @ 75 mls/hr IV . [id number] [facility] Rx#:[id number] Oral 590 Other: Voiding Method Bedside Commode # Voids 1 # Bowel Movements 1 - Constitutional General appearance: Present: obese - EENT Eyes: Absent: abnormal pupil - Respiratory Respiratory: bilateral: CTA - Cardiovascular Rhythm: regular Heart sounds: normal: S1, S2 Abnormal Heart Sounds: Absent: S3 Gallop - Gastrointestinal General gastrointestinal: Present: soft. Absent: tenderness - Neurologic Neurologic: Present: CNII-XII intact - Musculoskeletal Musculoskeletal: Present: generalized weakness - Labs CBC & Chem 7: 02/10/18 06:56 02/10/18 06:56 Labs: Abnormal Lab Results - Last 24 Hours (Table) 02/09/18 02/09/18 02/09/18 Range/Units 11:26 16:48 21:48 RBC (3.80-5.40) m/uL Hgb (11.4-16.0) gm/dL Hct (34.0-46.0) % Carbon Dioxide (22-30) mmol/L BUN (7-17) mg/dL Creatinine (0.52-1.04) mg/dL Glucose (74-99) mg/dL POC Glucose (mg/dL) 101 H 256 H 135 H (75-99) mg/dL Triglycerides (<150) mg/dL HDL Cholesterol (40-60) mg/dL 02/10/18 02/10/18 02/10/18 Range/Units 06:56 06:56 07:22 RBC 3.60 L (3.80-5.40) m/uL Hgb 10.9 L (11.4-16.0) gm/dL Hct 33.5 L (34.0-46.0) % Carbon Dioxide 31 H (22-30) mmol/L BUN 27 H (7-17) mg/dL Creatinine 1.58 H (0.52-1.04) mg/dL Glucose 52 L (74-99) mg/dL POC Glucose (mg/dL) 60 L (75-99) mg/dL Triglycerides 188 H (<150) mg/dL HDL Cholesterol 37 L (40-60) mg/dL Assessment and Plan (1) Hypoglycemia Current Visit: Yes Status: Acute Code(s): E16.2 - HYPOGLYCEMIA, UNSPECIFIED SNOMED Code(s): 866106304 (2) Syncope Current Visit: Yes Status: Acute Code(s): R55 - SYNCOPE AND COLLAPSE SNOMED Code(s): 812565075 (3) UTI (urinary tract infection) Current Visit: Yes Status: Acute Code(s): N39.0 - URINARY TRACT INFECTION, SITE NOT SPECIFIED SNOMED Code(s): 64345849 Plan: Decrease Levemir by 20% approximately. Check CMP in a.m. If clinically stable and carotid Doppler and echocardiogram are nominal, we will anticipate discharge in a.m. 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 Time with Patient: Greater than 30
[2018-02-10] MEDS: CALCIUM ACETATE 667 MG CAP PO SCH ×2 (08:33→17:34)
[2018-02-10] MEDS: CARVEDILOL 6.25 MG TAB PO SCH ×2 (08:33→17:33)
[2018-02-10] MEDS: PANTOPRAZOLE 40 MG TABLET PO SCH (08:33)
[2018-02-10] MEDS: ALLOPURINOL 300 MG TAB PO SCH (08:34)
[2018-02-10] MEDS: amLODIPine 10 MG TAB PO SCH (08:35)
[2018-02-10] MEDS: DULoxetine HCL 30 MG CAPSULE.DR PO SCH (08:35)
[2018-02-10] MEDS: CHOLECALCIFEROL 1,000 UNIT TAB PO SCH (08:35)
[2018-02-10] MEDS: ATORVASTATIN 40 MG TAB PO SCH (08:35)
[2018-02-10] MEDS: cefTRIAXone IN SWFI 1,000 MG/10 ML SYRINGE IVP SCH (08:35)
[2018-02-10] MEDS: ENOXAPARIN 40 MG/0.4 ML SYRINGE SQ SCH (08:35)
[2018-02-10] MEDS: FERROUS SULFATE 325 MG TAB PO SCH (08:36)
[2018-02-10] MEDS: GABAPENTIN 400 MG CAP PO SCH ×3 (08:36→21:06)
[2018-02-10] MEDS: SODIUM BICARBONATE TAB 650 MG TAB PO SCH ×3 (08:36→21:04)
[2018-02-10] MEDS: FUROSEMIDE 20 MG TAB PO SCH (08:36)
[2018-02-10 10:36] LABS: Glucose,Whole Blood 180 mg/dL (75-99)
--- NOTE | 2018-02-10 11:11 | US ---
EXAMINATION TYPE: US carotid duplex BILAT DATE OF EXAM: 02/10/2018 COMPARISON: NONE CLINICAL HISTORY: stroke. EXAM MEASUREMENTS: RIGHT: Peak Systolic Velocity (PSV) cm/sec ----- Right CCA: 64.7 ----- Right ICA: 94.9 ----- Right ECA: 118.8 ICA/CCA ratio: 1.5 RIGHT: End Diastole cm/sec ----- Right CCA: 14.2 ----- Right ICA: 26.5 ----- Right ECA: 12.6 LEFT: Peak Systolic Velocity (PSV) cm/sec ----- Left CCA: 65.8 ----- Left ICA: 168.6 ----- Left ECA: 147.7 ICA/CCA ratio: 2.6 LEFT: End Diastole cm/sec ----- Left CCA: 10.9 ----- Left ICA: 33.0 ----- Left ECA: 11.9 VERTEBRALS (direction of flow): Right Vertebral: Antegrade Left Vertebral: Antegrade Rhythm: Normal Tortuous ICA's bilaterally. Slight velocity increase on left. Mild atherosclerotic changes. Grayscale, color Doppler, spectral Doppler imaging performed of the carotid arteries. Waveform analys is shows elevation of the velocity of the proximal internal carotid artery on the left. IMPRESSION: Findings suggest possible hemodynamic significant stenosis involving the proximal internal grinder tender al carotid artery on the left corresponding to 50-69% diameter stenosis by Doppler criteria, an indir ect measurement of carotid stenosis, consider carotid CTA, follow-up. Criteria for Assigning % of Stenosis / Diameter reduction (Estimation based on the indirect measurements of the internal carotid artery velocities (ICA PSV). 1. Normal (no stenosis)=ICA PSV < 125 cm/s: ratio < 2.0: ICA EDV<40 cm/s. 2. Less than 50% stenosis=ICA PSV < 125 cm/s: ratio < 2.0: ICA EDV<40 cm/s. 3. 50 to 69% stenosis=ICA PSV of 125 to 230 cm/s: ration 2.0 ? 4.0: ICA EDV 40-100 cm/s. 4. Greater than 70% stenosis to near occlusion= ICA PSV > 230 cm/s: ratio > 4.0: ICA EDV > 100 cm/s. 5. Near occlusion= ICA PSV velocities may be low or undetectable: variable ratio and ICA EDV. 6. Total occlusion=unable to detect flow.
[2018-02-10 11:49] LABS: Glucose,Whole Blood 160 mg/dL (75-99)
--- NOTE | 2018-02-10 12:47 | ECHOF ---
Referral Reason:Stroke MEASUREMENTS -------- HEIGHT: 162.6 cm WEIGHT: 120.7 kg BP: 159/58 RVIDd: 3.1 cm (< 3.3) IVSd: 1.1 cm (0.6 - 1.1) LVIDd: 5.8 cm (3.9 - 5.3) LVPWd: 1.2 cm (0.6 - 1.1) IVSs: 1.8 cm LVIDs: 4.0 cm LVPWs: 1.5 cm LAESV Index (A-L): 33.45 ml/m Ao Diam: 2.8 cm (2.0 - 3.7) AV Cusp: 1.2 cm (1.5 - 2.6) LA Diam: 4.2 cm (2.7 - 3.8) EPSS: 1.2 cm MV E Marlon: 1.39 m/s MV DecT: 180 ms MV A Marlon: 1.43 m/s MV E/A Ratio: 0.97 AR PHT: 525 ms RAP: 5.00 mmHg RVSP: 37.33 mmHg MV EF SLOPE: 24.66 mm/s (70 - 150) MV EXCURSION: 1.84 cm (> 18.000) FINDINGS -------- Sinus rhythm. This was a technically adequate study. The left ventricular size is normal. There is mild concentric left ventricular hypertrophy. Overa ll left ventricular systolic function is normal with, an EF between 55 - 60 %. The right ventricle is normal in size and function. Normal LA size by volume 22+/-6 ml/m2. The right atrium is normal in size. There is mild aortic valve sclerosis. There is [id number] aortic regurgitation. Moderate mitral annular calcification present. Moderate mitral regurgitation is present. Mild tricuspid regurgitation present. There is mild pulmonary hypertension. The right ventricular systolic pressure, as measured by Doppler, is 37.33mmHg. There is no pulmonic regurgitation present. The aortic root size is normal. Normal inferior vena cava with normal inspiratory collapse consistent with estimated right atrial pre ssure of 5 mmHg. There is a small, generalized pericardial effusion present. CONCLUSIONS -------- 1. Sinus rhythm. 2. The left ventricular size is normal. 3. There is mild concentric left ventricular hypertrophy. 4. Overall left ventricular systolic function is normal with, an EF between 55 - 60 %. 5. Normal LA size by volume 22+/-6 ml/m2. 6. There is mild aortic valve sclerosis. 7. There is [id number] aortic regurgitation. 8. Moderate mitral annular calcification present. 9. Moderate mitral regurgitation is present. 10. Mild tricuspid regurgitation present. 11. There is mild pulmonary hypertension. 12. There is no pulmonic regurgitation present. 13. The aortic root size is normal. 14. There is a small, generalized pericardial effusion present. HOTEL MAINTENANCE WORKER: Aung Robertson RDCS
[2018-02-10 16:56] LABS: Glucose,Whole Blood 178 mg/dL (75-99)
[2018-02-10 20:52] LABS: Glucose,Whole Blood 164 mg/dL (75-99)
[2018-02-10] MEDS: INSULIN DETEMIR 100 UNIT/ML 10 ML VIAL SQ SCH (21:03)
[2018-02-10] MEDS: cloNIDine HCL 0.2 MG TAB PO SCH (21:05)
[2018-02-10] MEDS: MONTELUKAST 10 MG TAB PO SCH (21:05)
[2018-02-11] MEDS: SODIUM CHLORIDE 0.9% 1,000 ML IV SCH ×2 (05:26→22:47)
[2018-02-11] MEDS: LEVOTHYROXINE 100 MCG TAB PO SCH (06:11)
[2018-02-11] MEDS: HYDROcodone/APAP 7.5-325MG 1 EACH TAB PO PRN ×3 (06:46→21:45)
[2018-02-11 07:06] LABS: Glucose,Whole Blood 160 mg/dL (75-99)
[2018-02-11] MEDS: INSULIN ASPART 100 UNIT/ML 1 ML 10 ML VIAL SQ SCH ×7 (07:30→22:47)
[2018-02-11] MEDS: PANTOPRAZOLE 40 MG TABLET PO SCH (07:31)
[2018-02-11] MEDS: CARVEDILOL 6.25 MG TAB PO SCH ×2 (07:31→17:22)
[2018-02-11] MEDS: FLUTICASONE 110 MCG INHALER INHALATION SCH ×2 (07:45→19:35)
[2018-02-11 07:49] LABS: Basophils % (A) 0 %; Eosinophils # (A) 0.1 k/uL (0-0.7); Eosinophils % (A) 3 %; HCT 33.5 % (34.0-46.0); HGB 10.6 gm/dL (11.4-16.0); Lymphocytes # (A) 0.9 k/uL (1.0-4.8); Lymphocytes % (A) 25 %; MCH 30.3 pg (25.0-35.0); MCHC 31.7 g/dL (31.0-37.0); MCV 95.7 fL (80.0-100.0); Mean Platelet Volume 7.1; Monocytes # (A) 0.3 k/uL (0-1.0); Monocytes % (A) 9 %; Neutrophils # (A) 2.2 k/uL (1.3-7.7); Neutrophils % (A) 60 %; Platelet Count 167 k/uL (150-450); RDW 14.1 % (11.5-15.5); WBC 3.7 k/uL (3.8-10.6)
[2018-02-11 08:04] LABS: Albumin 2.8 g/dL (3.5-5.0); Calcium 9.1 mg/dL (8.4-10.2); Potassium 4.4 mmol/L (3.5-5.1); Total Bilirubin 0.4 mg/dL (0.2-1.3); Total Protein 5.6 g/dL (6.3-8.2)
[2018-02-11] MEDS: cefTRIAXone IN SWFI 1,000 MG/10 ML SYRINGE IVP SCH (08:19)
[2018-02-11] MEDS: FUROSEMIDE 20 MG TAB PO SCH (08:20)
[2018-02-11] MEDS: ENOXAPARIN 40 MG/0.4 ML SYRINGE SQ SCH (08:20)
[2018-02-11] MEDS: DULoxetine HCL 30 MG CAPSULE.DR PO SCH (08:21)
[2018-02-11] MEDS: FERROUS SULFATE 325 MG TAB PO SCH (08:21)
[2018-02-11] MEDS: SODIUM BICARBONATE TAB 650 MG TAB PO SCH ×3 (08:21→21:43)
[2018-02-11] MEDS: CHOLECALCIFEROL 1,000 UNIT TAB PO SCH (08:21)
[2018-02-11] MEDS: GABAPENTIN 400 MG CAP PO SCH ×3 (08:21→21:43)
[2018-02-11] MEDS: amLODIPine 10 MG TAB PO SCH (08:22)
[2018-02-11] MEDS: ALLOPURINOL 300 MG TAB PO SCH (08:22)
[2018-02-11] MEDS: ATORVASTATIN 40 MG TAB PO SCH (08:22)
[2018-02-11 12:17] LABS: Glucose,Whole Blood 124 mg/dL (75-99)
--- NOTE | 2018-02-11 13:11 | P.PN ---
Subjective Principal diagnosis: This is a continue prednisone a 62-year-old white female essentially admitted for syncopal episode with acute renal failure and UTI. The patient is somewhat concerned because she was scheduled for knee repair today in [place]. However , she has significant falling. 6 episode as otherwise noted. Question low blood sugar element. She typically doesn't eat more at home than she does here. She's also was somewhat dissatisfied with the on-call physician this past weekend. No voiding difficulties are stated. No presyncope stated today. This can impression a 62-year-old white female essentially admitted for syncope. Echocardiogram is nominal. There is moderate stenosis of the left carotid artery. No new complaints otherwise stated. No significant nausea, vomiting or diarrhea is stated. No presyncope noted. She is scheduled to have orthopedic repair in the next 5 days. Objective - Vital Signs Vital signs: Vital Signs Temp 97.9 F 02/11/18 07:00 Pulse 66 02/11/18 08:56 Resp 20 02/11/18 08:56 BP 189/73 02/11/18 07:00 Pulse Ox 100 02/11/18 07:00 Intake & Output 02/10/18 02/11/18 02/11/18 18:59 06:59 18:59 Intake Total 1965 1540 240 Balance 1965 1540 240 Weight 120.656 kg Intake: Intake, IV Titration 525 Amount Sodium Chloride 0.9% 1, 525 000 ml @ 75 mls/hr IV . [id number] [facility] Rx#:[id number] Oral 1440 1540 240 Other: Voiding Method Bedside Commode Bedside Commode Bedside Commode # Voids 2 - Constitutional General appearance: Present: obese - EENT Eyes: Absent: abnormal pupil - Neck Neck: Absent: lymphadenopathy - Respiratory Respiratory: bilateral: CTA - Cardiovascular Rhythm: regular Heart sounds: normal: S1, S2 Abnormal Heart Sounds: Absent: S3 Gallop - Gastrointestinal General gastrointestinal: Present: soft. Absent: splenomegaly, tenderness - Psychiatric Psychiatric: Present: A&O x's 3, intact judgment & insight - Labs CBC & Chem 7: 02/11/18 07:24 02/11/18 07:24 Labs: Abnormal Lab Results - Last 24 Hours (Table) 02/10/18 02/10/18 02/11/18 Range/Units 16:55 20:50 07:05 WBC (3.8-10.6) k/uL RBC (3.80-5.40) m/uL Hgb (11.4-16.0) gm/dL Hct (34.0-46.0) % Lymphocytes # (1.0-4.8) k/uL Carbon Dioxide (22-30) mmol/L BUN (7-17) mg/dL Creatinine (0.52-1.04) mg/dL Glucose (74-99) mg/dL POC Glucose (mg/dL) 178 H 164 H 160 H (75-99) mg/dL Total Protein (6.3-8.2) g/dL Albumin (3.5-5.0) g/dL 02/11/18 02/11/18 02/11/18 Range/Units 07:24 07:24 11:26 WBC 3.7 L (3.8-10.6) k/uL RBC 3.50 L (3.80-5.40) m/uL Hgb 10.6 L (11.4-16.0) gm/dL Hct 33.5 L (34.0-46.0) % Lymphocytes # 0.9 L (1.0-4.8) k/uL Carbon Dioxide 31 H (22-30) mmol/L BUN 25 H (7-17) mg/dL Creatinine 1.50 H (0.52-1.04) mg/dL Glucose 148 H (74-99) mg/dL POC Glucose (mg/dL) 124 H (75-99) mg/dL Total Protein 5.6 L (6.3-8.2) g/dL Albumin 2.8 L (3.5-5.0) g/dL Assessment and Plan (1) Hypoglycemia Current Visit: Yes Status: Acute Code(s): E16.2 - HYPOGLYCEMIA, UNSPECIFIED SNOMED Code(s): 422638745 (2) Syncope Current Visit: Yes Status: Acute Code(s): R55 - SYNCOPE AND COLLAPSE SNOMED Code(s): 215214209 (3) UTI (urinary tract infection) Current Visit: Yes Status: Acute Code(s): N39.0 - URINARY TRACT INFECTION, SITE NOT SPECIFIED SNOMED Code(s): 41037974 Plan: Continue hydration. Anticipate discharge in a.m. for preoperative rehabilitation of the lower extremity. The patient is clinically improved. Test results were conveyed patient. Time with Patient: Less than 30
--- NOTE | 2018-02-11 16:12 | CDI ---
Last Revision, May 2017 Documentation Clarification Form Date: 02/11/2018 3:48:14 PM From: Iwona Correa RN, CCDS Admit Date: 02/09/2018 8:37:00 PM Patient Name: Yocasta Ho Visit Number: [id number] Discharge Date: ATTENTION: The Clinical Documentation Specialists (CDI) and [facility] Coding Staff appreciate your assistance in clarifying documentation. Please respond to the clarification below the line at the bottom and electronically sign. The CDI & [facility] Coding staff will review the response and follow-up if needed. Please note: Queries are made part of the Legal Health Record. If you have any questions, please contact the author of this message via ITS. Jhonathan Ellis MD History/Risk Factors:. CAD, Diabetes Mellitus type 2, Hypertension, CKD stage 3 , CHF Clinical Indicators: Patient past medical history with ongoing treatment. VS/Pulse OX: 138/67 78 18 98 % RA Echocardiogram: EF 55-60 % Treatment: Lasix Po daily Coreg Po Lipitor Po In your professional opinion, and patient past medical history can you please clarify the acuity and type of CHF if known? Diastolic Heart Failure: Chronic Other, please specify Unable to Determine Please continue to document in your progress notes and discharge summary in order to capture severity of illness and risk of mortality. Include clinical findings that support your diagnosis. MTDD
[2018-02-11 17:17] LABS: Glucose,Whole Blood 206 mg/dL (75-99)
[2018-02-11] MEDS: CALCIUM ACETATE 667 MG CAP PO SCH (17:22)
[2018-02-11 21:07] LABS: Glucose,Whole Blood 145 mg/dL (75-99)
[2018-02-11] MEDS: INSULIN DETEMIR 100 UNIT/ML 10 ML VIAL SQ SCH (21:43)
[2018-02-11] MEDS: MONTELUKAST 10 MG TAB PO SCH (21:43)
[2018-02-11] MEDS: cloNIDine HCL 0.2 MG TAB PO SCH (21:43)
[2018-02-12] MEDS: HYDROcodone/APAP 7.5-325MG 1 EACH TAB PO PRN ×2 (02:30→07:54)
[2018-02-12] MEDS: LEVOTHYROXINE 100 MCG TAB PO SCH (06:11)
[2018-02-12 06:16] VITALS: BP 120/58; PULSE 64; RESP 16; TEMP 97.9
[2018-02-12 06:40] LABS: Glucose,Whole Blood 161 mg/dL (75-99)
[2018-02-12] MEDS: FLUTICASONE 110 MCG INHALER INHALATION SCH (07:49)
[2018-02-12] MEDS: PANTOPRAZOLE 40 MG TABLET PO SCH (07:55)
[2018-02-12] MEDS: amLODIPine 10 MG TAB PO SCH (07:55)
[2018-02-12] MEDS: ATORVASTATIN 40 MG TAB PO SCH (07:55)
[2018-02-12] MEDS: ALLOPURINOL 300 MG TAB PO SCH (07:55)
[2018-02-12] MEDS: CARVEDILOL 6.25 MG TAB PO SCH (07:55)
[2018-02-12] MEDS: DULoxetine HCL 30 MG CAPSULE.DR PO SCH ×2 (07:55→08:04)
[2018-02-12] MEDS: CHOLECALCIFEROL 1,000 UNIT TAB PO SCH (07:55)
[2018-02-12] MEDS: cefTRIAXone IN SWFI 1,000 MG/10 ML SYRINGE IVP SCH ×2 (07:56→08:04)
[2018-02-12] MEDS: INSULIN ASPART 100 UNIT/ML 1 ML 10 ML VIAL SQ SCH ×2 (08:08)
[2018-02-12] MEDS: GABAPENTIN 400 MG CAP PO SCH (08:14)
[2018-02-12] MEDS: FERROUS SULFATE 325 MG TAB PO SCH (08:14)
[2018-02-12] MEDS: FUROSEMIDE 20 MG TAB PO SCH (08:14)
[2018-02-12] MEDS: ENOXAPARIN 40 MG/0.4 ML SYRINGE SQ SCH (08:15)
[2018-02-12] MEDS: SODIUM BICARBONATE TAB 650 MG TAB PO SCH (08:16)
[2018-02-12 08:26] LABS: Basophils % (A) 0 %; Eosinophils # (A) 0.1 k/uL (0-0.7); Eosinophils % (A) 3 %; HCT 31.9 % (34.0-46.0); HGB 10.3 gm/dL (11.4-16.0); Lymphocytes # (A) 1.1 k/uL (1.0-4.8); Lymphocytes % (A) 24 %; MCH 30.1 pg (25.0-35.0); MCHC 32.2 g/dL (31.0-37.0); MCV 93.5 fL (80.0-100.0); Mean Platelet Volume 7.3; Monocytes # (A) 0.4 k/uL (0-1.0); Monocytes % (A) 10 %; Neutrophils # (A) 2.7 k/uL (1.3-7.7); Neutrophils % (A) 61 %; Platelet Count 183 k/uL (150-450); RBC 3.41 m/uL (3.80-5.40); WBC 4.4 k/uL (3.8-10.6)
--- NOTE | 2018-02-12 08:33 | P.DS ---
Providers Date of admission: 02/09/18 20:37 Attending physician: Jhonathan Baca Primary care physician: Jhonathan Baca - Discharge Diagnosis(es) (1) Hypoglycemia Current Visit: Yes Status: Acute (2) Syncope Current Visit: Yes Status: Acute (3) UTI (urinary tract infection) Current Visit: Yes Status: Acute Patient Condition at Discharge: Fair Plan - Discharge Summary Discharge Rx Participant: No New Discharge Prescriptions: Continue amLODIPine BESYLATE [Norvasc] 10 mg PO DAILY Carvedilol [Coreg] 6.25 mg PO BID Furosemide [Lasix] 20 mg PO DAILY Sodium Bicarbonate 325 mg PO TID Cholecalciferol (Vitamin D3) [Vitamin D3] 2,000 unit PO DAILY Insulin Degludec [Tresiba Flextouch U-200] 40 unit SQ HS Albuterol Inhaler [Ventolin Hfa Inhaler] 1 - 2 puff INHALATION RT-Q6H PRN PRN Reason: Shortness Of Breath Insulin Aspart [NovoLOG Flexpen] 5 unit SQ AC-TID Calcium Acetate [PhosLo] 1,334 mg PO DAILY@1730 Insulin Aspart [NovoLOG Flexpen] See Protocol SQ TID PRN PRN Reason: Blood Sugar - High Nitroglycerin Sl Tabs [Nitrostat] 0.4 mg SUBLINGUAL Q5M PRN PRN Reason: Chest Pain Montelukast [Singulair] 10 mg PO HS Polyethylene Glycol 3350 [Miralax] 17 gm PO DAILY PRN PRN Reason: Constipation Levothyroxine Sodium [Synthroid] 175 mcg PO DAILY Glucagon Emergency Kit 1 mg IM ONCE PRN PRN Reason: Blood Sugar - Low Gabapentin [Neurontin] 400 mg PO TID Fluticasone Propionate [Flovent Hfa 110mcg] 2 puff INHALATION RT-BID Ferrous Sulfate [Iron (65 MG Elemental)] 650 mg PO DAILY DULoxetine HCL [Cymbalta] 30 mg PO DAILY cloNIDine HCL [Catapres] 0.2 mg PO HS Clopidogrel [Plavix] 75 mg PO DAILY Albuterol Nebulized (Conc) [Ventolin Nebulized (Conc)] 2.5 mg INHALATION RT- QID PRN PRN Reason: Shortness Of Breath Atorvastatin [Lipitor] 40 mg PO DAILY Allopurinol [Zyloprim] 300 mg PO DAILY Tofacitinib Citrate [Xeljanz Xr] 11 mg PO DAILY Aspirin 81 mg PO DAILY HYDROcodone/APAP 7.5-325MG [[place] 7.5-325] 1 tab PO Q4-6H PRN PRN Reason: Pain Insulin Degludec [Tresiba Flextouch U-200] 40 unit SQ DAILY Ipratropium-Albuterol Nebulize [Duoneb 0.5 mg-3 mg/3 ml Soln] 3 ml INHALATION RT-Q6H PRN PRN Reason: Shortness Of Breath Or Wheezing Discharge Medication List Carvedilol [Coreg] 6.25 mg PO BID 02/23/15 [History] Furosemide [Lasix] 20 mg PO DAILY 02/23/15 [History] amLODIPine BESYLATE [Norvasc] 10 mg PO DAILY 02/23/15 [History] Sodium Bicarbonate 325 mg PO TID 08/06/16 [History] Albuterol Inhaler [Ventolin Hfa Inhaler] 1 - 2 puff INHALATION RT-Q6H PRN [History] Albuterol Nebulized (Conc) [Ventolin Nebulized (Conc)] 2.5 mg INHALATION RT-QID PRN 11/21/17 [History] Allopurinol [Zyloprim] 300 mg PO DAILY 11/21/17 [History] Atorvastatin [Lipitor] 40 mg PO DAILY 11/21/17 [History] Calcium Acetate [PhosLo] 1,334 mg PO DAILY@1730 11/21/17 [History] Cholecalciferol (Vitamin D3) [Vitamin D3] 2,000 unit PO DAILY 11/21/17 [History] Clopidogrel [Plavix] 75 mg PO DAILY 11/21/17 [History] DULoxetine HCL [Cymbalta] 30 mg PO DAILY 11/21/17 [History] Ferrous Sulfate [Iron (65 MG Elemental)] 650 mg PO DAILY 11/21/17 [History] Fluticasone Propionate [Flovent Hfa 110mcg] 2 puff INHALATION RT-BID 11/21/17 [ History] Gabapentin [Neurontin] 400 mg PO TID 11/21/17 [History] Glucagon Emergency Kit 1 mg IM ONCE PRN 11/21/17 [History] Insulin Aspart [NovoLOG Flexpen] 5 unit SQ AC-TID 11/21/17 [History] Insulin Aspart [NovoLOG Flexpen] See Protocol SQ TID PRN 11/21/17 [History] Insulin Degludec [Tresiba Flextouch U-200] 40 unit SQ HS 11/21/17 [History] Levothyroxine Sodium [Synthroid] 175 mcg PO DAILY 11/21/17 [History] Montelukast [Singulair] 10 mg PO HS 11/21/17 [History] Nitroglycerin Sl Tabs [Nitrostat] 0.4 mg SUBLINGUAL Q5M PRN 11/21/17 [History] Polyethylene Glycol 3350 [Miralax] 17 gm PO DAILY PRN 11/21/17 [History] Tofacitinib Citrate [Xeljanz Xr] 11 mg PO DAILY 11/21/17 [History] cloNIDine HCL [Catapres] 0.2 mg PO HS 11/21/17 [History] Aspirin 81 mg PO DAILY 02/07/18 [History] HYDROcodone/APAP 7.5-325MG [[place] 7.5-325] 1 tab PO Q4-6H PRN 02/07/18 [History] Insulin Degludec [Tresiba Flextouch U-200] 40 unit SQ DAILY 02/07/18 [History] Ipratropium-Albuterol Nebulize [Duoneb 0.5 mg-3 mg/3 ml Soln] 3 ml INHALATION RT -Q6H PRN 02/07/18 [History] Follow up Appointment(s)/Referral(s): Jhonathan Baca MD [Primary Care Provider] - 2 Weeks Discharge Disposition: TRANSFER TO SNF/ECF
[2018-02-12 08:55] LABS: Calcium 9.2 mg/dL (8.4-10.2); Potassium 4.5 mmol/L (3.5-5.1)
[2018-02-12] MEDS: SODIUM CHLORIDE 0.9% 1,000 ML IV SCH (10:28)
[2018-02-12 16:37] LABS: Glucose,Whole Blood 170 mg/dL (75-99)
== END 2018-02-12 11:50 | DRG 638 ==
LOC: EC 06:21 → 5MS5E 10:01 → OBSVTOIN 02-09 20:37
PROVIDERS: ADMIT Family Medicine; ATTEND Family Medicine
DX: E11.649 Type 2 diabetes mellitus with hypoglycemia without coma (principal); N39.0 Urinary tract infection, site not specified; I13.0 Hypertensive heart and chronic kidney disease with heart failure and stage 1 through stage 4 chronic kidney disease, or unspecified chronic kidney disease; N17.9 Acute kidney failure, unspecified; S09.90XA Unspecified injury of head, initial encounter; I50.9 Heart failure, unspecified; E11.22 Type 2 diabetes mellitus with diabetic chronic kidney disease; N18.3 Chronic kidney disease, stage 3 (moderate); I65.22 Occlusion and stenosis of left carotid artery; E86.0 Dehydration; J44.9 Chronic obstructive pulmonary disease, unspecified; I25.10 Atherosclerotic heart disease of native coronary artery without angina pectoris; E78.5 Hyperlipidemia, unspecified; M06.9 Rheumatoid arthritis, unspecified; G47.30 Sleep apnea, unspecified; E89.0 Postprocedural hypothyroidism; F32.9 Major depressive disorder, single episode, unspecified; F41.9 Anxiety disorder, unspecified; M19.91 Primary osteoarthritis, unspecified site; R26.9 Unspecified abnormalities of gait and mobility; I25.2 Old myocardial infarction; Z79.02 Long term (current) use of antithrombotics/antiplatelets; Z79.82 Long term (current) use of aspirin; Z79.890 Hormone replacement therapy; Z79.4 Long term (current) use of insulin; Z79.51 Long term (current) use of inhaled steroids; Z79.899 Other long term (current) drug therapy; Z95.5 Presence of coronary angioplasty implant and graft; W06.XXXA Fall from bed, initial encounter; Y92.003 Bedroom of unspecified non-institutional (private) residence as the place of occurrence of the external cause; Z82.0 Family history of epilepsy and other diseases of the nervous system; Z82.5 Family history of asthma and other chronic lower respiratory diseases
CPT/HCPCS: 36415; 70450; 72125; 80048; 80053; 80061; 81001; 83036; 84484; 85025; 85610; 85730; 86850; 86900; 86901; 87086; 93005; 93306; 93880; 94640; 96361; 96374; 99285

== ENCOUNTER 2018-04-17 15:45 | Emergency (ER) | payer MEDICARE, OTHER ==
[2018-04-17 15:55] VITALS: PULSE 70
--- NOTE | 2018-04-17 16:31 | ED ---
Lower Extremity Injury HPI - General Chief Complaint: Extremity Injury, Lower Stated Complaint: fall/ankle pain Time Seen by Provider: 04/17/18 16:00 Source: patient, RN notes reviewed Mode of arrival: wheelchair Limitations: no limitations - History of Present Illness Initial Comments: This is a 62-year-old female who presents to the emergency department with chief complaint of left ankle injury. Patient states at 1:30 PM this afternoon her granddaughter was over visiting and playing cards. She states that she accidentally tripped over her 2 dogs and twisted her ankle. She reports that she did hit her forehead on the metal heating grate. Denies loss of consciousness, nausea or vomiting, dizziness or headache. Patient states that she tried to get up off the floor but was unable to due to pain in the left ankle. She states there is pain at both sides of the ankle, but more so medially. She denies any other injuries or trauma. Denies head, neck or back pain. - Related Data Home Medications Medication Instructions Recorded Confirmed Carvedilol [Coreg] 6.25 mg PO BID 02/23/15 02/07/18 Furosemide [Lasix] 20 mg PO DAILY 02/23/15 02/07/18 amLODIPine BESYLATE [Norvasc] 10 mg PO DAILY 02/23/15 02/07/18 Sodium Bicarbonate 325 mg PO TID 08/06/16 02/07/18 Albuterol Inhaler [Ventolin Hfa 1 - 2 puff INHALATION RT-Q6H PRN 11/21/17 Inhaler] Albuterol Nebulized (Conc) 2.5 mg INHALATION RT-QID PRN 11/21/17 02/07/18 [Ventolin Nebulized (Conc)] Allopurinol [Zyloprim] 300 mg PO DAILY 11/21/17 02/07/18 Atorvastatin [Lipitor] 40 mg PO DAILY 11/21/17 02/07/18 Calcium Acetate [PhosLo] 1,334 mg PO DAILY@1730 11/21/17 02/09/18 Cholecalciferol (Vitamin D3) 2,000 unit PO DAILY 11/21/17 02/07/18 [Vitamin D3] Clopidogrel [Plavix] 75 mg PO DAILY 11/21/17 02/07/18 DULoxetine HCL [Cymbalta] 30 mg PO DAILY 11/21/17 02/07/18 Ferrous Sulfate [Iron (65 MG 650 mg PO DAILY 11/21/17 02/07/18 Elemental)] Fluticasone Propionate [Flovent 2 puff INHALATION RT-BID 11/21/17 02/07/18 Hfa 110mcg] Gabapentin [Neurontin] 400 mg PO TID 11/21/17 02/07/18 Glucagon Emergency Kit 1 mg IM ONCE PRN 11/21/17 02/07/18 Insulin Aspart [NovoLOG Flexpen] 5 unit SQ AC-TID 11/21/17 02/07/18 Insulin Aspart [NovoLOG Flexpen] See Protocol SQ TID PRN 11/21/17 02/07/18 Insulin Degludec [Tresiba 40 unit SQ HS 11/21/17 02/07/18 Flextouch U-200] Levothyroxine Sodium [Synthroid] 175 mcg PO DAILY 11/21/17 02/07/18 Montelukast [Singulair] 10 mg PO HS 11/21/17 02/07/18 Nitroglycerin Sl Tabs [Nitrostat] 0.4 mg SUBLINGUAL Q5M PRN 11/21/17 02/07/18 Polyethylene Glycol 3350 [Miralax] 17 gm PO DAILY PRN 11/21/17 02/07/18 Tofacitinib Citrate [Xeljanz Xr] 11 mg PO DAILY 11/21/17 02/07/18 cloNIDine HCL [Catapres] 0.2 mg PO HS 11/21/17 02/07/18 Aspirin 81 mg PO DAILY 02/07/18 02/07/18 HYDROcodone/APAP 7.5-325MG [[place] 1 tab PO Q4-6H PRN 02/07/18 02/07/18 7.5-325] Insulin Degludec [Tresiba 40 unit SQ DAILY 02/07/18 02/07/18 Flextouch U-200] Ipratropium-Albuterol Nebulize 3 ml INHALATION RT-Q6H PRN 02/07/18 02/07/18 [Duoneb 0.5 mg-3 mg/3 ml Soln] Allergies Allergy/AdvReac Type Severity Reaction Status Date / Time No Known Allergies Allergy Verified 04/17/18 15:55 Review of Systems ROS Statement: Those systems with pertinent positive or pertinent negative responses have been documented in the HPI. ROS Other: All systems not noted in ROS Statement are negative. Past Medical History Past Medical History: Asthma, Coronary Artery Disease (CAD), Cancer, Heart Failure, COPD, Diabetes Mellitus, GI Bleed, Hyperlipidemia, Hypertension, Myocardial Infarction ([place]), Renal Disease, Rheumatoid Arthritis ([place]), Sleep Apnea/CPAP/BIPAP, Syncope, Thyroid Disorder Additional Past Medical History / Comment(s): Pt to have surgery on L knee next week, IDDM type II poorly controlled, bilateral peripheral neuropathy bilateral hands/feet, CKD stage IV, UTIs, legally blind bilaterally-sees minimally, thyroid cancer with surgery, goiter, hashimotos, diverticular disease, 2014 upper and lower GI bleeds with blood loss anemia, gout, R humeral fracture with surgery, incontence of bowel and occasionally bladder. Last Myocardial Infarction Date:: 2009 History of Any Multi-Drug Resistant Organisms: None Reported Past Surgical History: Adenoidectomy, Back Surgery, Cholecystectomy, Heart Catheterization With Stent, Tonsillectomy Additional Past Surgical History / Comment(s): PCI with stent 2009, low back surgery, total R shoulder and total R knee arthroplasties, bilateral hand trigger finger surgeries, EGD, colonoscopy, L eye laser eye surgery for bleed, thyroidectomy. Past Anesthesia/Blood Transfusion Reactions: No Reported Reaction Additional Past Anesthesia/Blood Transfusion Reaction / Comment(s): Pt has received blood in past without reaction. Date of Last Stent Placement:: 2009 Past Psychological History: Anxiety, Depression Smoking Status: Never smoker - Past Family History Mother Family Medical History: Asthma Additional Family Medical History / Comment(s): epilepsy Father Additional Family Medical History / Comment(s): many heart problems General Exam - General Exam Comments Initial Comments: General: Awake and alert, well-developed; in no apparent distress. Sitting comfortably on ED stretcher with granddaughter at bedside. HEENT: Head atraumatic, normocephalic. No hematomas, swelling or contusions noted to the forehead. There is an approximately 3 mm in diameter superficial abrasion to the right eyebrow. No bleeding. Pupils are equal, round and reactive to light. Extraocular movements intact. Oropharynx moist without erythema or exudate. Neck: Supple. Normal ROM. Cardiovascular: Regular rate and rhythm. No murmurs, rubs or gallops. Chest symmetrical. Respiratory: Lungs clear to auscultation bilaterally. No wheezes, rales or rhonchi. Normal respiratory effort with no use of accessory muscles. Musculoskeletal: Normal range of motion of the left ankle. There is tenderness and soft tissue swelling to the medial malleolus. Mild tenderness and swelling to the lateral malleolus. Sensation is intact. Pedal pulses are 2+ equal and palpable bilaterally. No obvious gross deformities. Skin: [place], warm and dry. Neurological: Alert and oriented x3. CN II-XII grossly intact. Speech is fluent and answers are appropriate. No focal neuro deficits. Psychiatric: Normal mood and affect. No overt signs of depression or anxiety noted. Limitations: no limitations Course Vital Signs 04/17/18 15:52 Temperature 98.3 F Pulse Rate 70 Respiratory 18 Rate Blood Pressure 136/75 O2 Sat by Pulse 97 Oximetry Procedures - Orthopedic Splinting/Casting Injury #1 Side: left Lower Extremity Injury Location: short leg, ankle Lower Extremity Immobilizer: posterior splint Medical Decision Making - Medical Decision Making This is a 62-year-old female who presents to the emergency department with chief complaint of left ankle injury. Patient reports tripping over her dogs at 1:30 this afternoon. She reports pain to both sides of the ankle, however more so medially. Patient has been unable to bear weight or ambulate. X-ray was obtained which revealed evidence for acute nondisplaced bimalleolar fractures. Case was discussed with attending physician, Dr. Lorenzo. Recommend splint and follow up outpatient with orthopedics. Patient does state that she will follow up with Dr. Sandhu. Short leg posterior and ankle stirrup OCL splint placed and patient tolerated well without complication. She is neurovascularly intact. Patient does report she has a walker and crutches at home. She is to remain nonweightbearing. Patient requests a few tablets of medication stronger than Tylenol. She is provided with the Tylenol with Codeine starter pack. Vitals are stable and she is in no acute distress. She will be discharged home at this time. All questions have been answered. - Radiology Data Radiology results: report reviewed, image reviewed X-ray left ankle impression: Acute bimalleolar fracture left ankle. Disposition Clinical Impression: Bimalleolar ankle fracture Disposition: HOME SELF-CARE Condition: Good Instructions: Ankle Fracture (ED) Additional Instructions: As discussed, please follow-up with orthopedics within 1-2 days. Please remain non-weightbearing. Please rest, ice, elevate. Please follow up with primary care provider within 1-2 days. Return to emergency department if symptoms should worsen or any concerns arise. Is patient prescribed a controlled substance at d/c from ED?: Yes When asked, does pt state using other controlled substances?: No If prescribed controlled substance>3 days was MAPS reviewed?: Prescribed <3 Days (starter pack) Referrals: Jhonathan Baca MD [Primary Care Provider] - 1-2 days Jarret Mckeon MD [Medical Doctor] - 1-2 days Time of Disposition: 17:27
--- NOTE | 2018-04-17 16:45 | XR ---
EXAMINATION TYPE: XR ankle complete LT DATE OF EXAM: 04/17/2018 COMPARISON: NONE HISTORY: Pain TECHNIQUE: 3 views FINDINGS: There is nondisplaced oblique fracture of the distal fibula. Ankle mortise is slightly wide skylar. There is 5 mm lateral subluxation of the talus. There is soft tissue swelling. There are plantar and Achilles calcaneal spurs. There is nondisplaced transverse fracture of the medial malleolus. IMPRESSION: Acute bimalleolar fracture left ankle.
[2018-04-17] MEDS ORDERED: ACET/COD 300 MG/30 MG STARTER PACK 6 TAB BTL PO STA (17:26)
[2018-04-17 17:42] VITALS: BP 137/96; RESP 17; TEMP 97.9
== END 2018-04-17 17:43 | disposition home or self-care (01) ==
LOC: EC 15:45
DX: S82.845A Nondisplaced bimalleolar fracture of left lower leg, initial encounter for closed fracture (principal); S00.211A Abrasion of right eyelid and periocular area, initial encounter; M10.9 Gout, unspecified; I13.0 Hypertensive heart and chronic kidney disease with heart failure and stage 1 through stage 4 chronic kidney disease, or unspecified chronic kidney disease; I50.9 Heart failure, unspecified; N18.4 Chronic kidney disease, stage 4 (severe); E11.22 Type 2 diabetes mellitus with diabetic chronic kidney disease; E11.65 Type 2 diabetes mellitus with hyperglycemia; E11.42 Type 2 diabetes mellitus with diabetic polyneuropathy; I25.10 Atherosclerotic heart disease of native coronary artery without angina pectoris; J44.9 Chronic obstructive pulmonary disease, unspecified; E78.5 Hyperlipidemia, unspecified; G47.30 Sleep apnea, unspecified; H54.8 Legal blindness, as defined in USA; D50.0 Iron deficiency anemia secondary to blood loss (chronic); E06.3 Autoimmune thyroiditis; M06.9 Rheumatoid arthritis, unspecified; F32.9 Major depressive disorder, single episode, unspecified; F41.9 Anxiety disorder, unspecified; I25.2 Old myocardial infarction; Z79.02 Long term (current) use of antithrombotics/antiplatelets; Z79.4 Long term (current) use of insulin; Z79.51 Long term (current) use of inhaled steroids; Z79.82 Long term (current) use of aspirin; Z79.899 Other long term (current) drug therapy; Z85.850 Personal history of malignant neoplasm of thyroid; E89.0 Postprocedural hypothyroidism; Z99.89 Dependence on other enabling machines and devices; W01.198A Fall on same level from slipping, tripping and stumbling with subsequent striking against other object, initial encounter; Y93.89 Activity, other specified; Y92.009 Unspecified place in unspecified non-institutional (private) residence as the place of occurrence of the external cause
CPT/HCPCS: 29515; 99283

== ENCOUNTER 2018-04-22 14:56 | Inpatient (IN) | payer MEDICARE, OTHER ==
[2018-04-22] MEDS ORDERED: NITROGLYCERIN OINT 1 INCH/GM PACKET TOPICAL STA (15:15)
[2018-04-22] MEDS ORDERED: ASPIRIN 81 MG PO STA (15:15)
--- NOTE | 2018-04-22 15:31 | ED ---
General Adult HPI - General Chief complaint: Chest Pain Stated complaint: chest pain Time Seen by Provider: 04/22/18 15:00 Source: patient, RN notes reviewed Mode of arrival: wheelchair Limitations: no limitations - History of Present Illness Initial comments: This is a 62-year-old female presents to the emergency department with past medical history significant for an [place] diabetes and high blood pressure. Patient states she also has high cholesterol. Patient comes in today because she's been having chest pain over the last 2 days. Patient states the pain is coming gone and usually last for 10-15 minutes. However today it lasted for the last 2 hours. Patient states the pain radiates to her back and her jaw. Patient states she's also short of breath. Patient denies any sweating episodes. Patient denies nausea vomiting diarrhea. Patient denies abdominal pain. - Related Data Home Medications Medication Instructions Recorded Confirmed Carvedilol [Coreg] 6.25 mg PO BID 02/23/15 04/22/18 Furosemide [Lasix] 20 mg PO DAILY 02/23/15 04/22/18 amLODIPine BESYLATE [Norvasc] 10 mg PO DAILY 02/23/15 04/22/18 Sodium Bicarbonate 325 mg PO TID 08/06/16 04/22/18 Albuterol Inhaler [Ventolin Hfa 1 - 2 puff INHALATION RT-Q6H PRN 11/21/17 Inhaler] Albuterol Nebulized (Conc) 2.5 mg INHALATION RT-QID PRN 11/21/17 04/22/18 [Ventolin Nebulized (Conc)] Allopurinol [Zyloprim] 300 mg PO DAILY 11/21/17 04/22/18 Atorvastatin [Lipitor] 40 mg PO DAILY 11/21/17 04/22/18 Calcium Acetate [PhosLo] 667 mg PO TID 11/21/17 04/22/18 Cholecalciferol (Vitamin D3) 2,000 unit PO DAILY 11/21/17 04/22/18 [Vitamin D3] Clopidogrel [Plavix] 75 mg PO DAILY 11/21/17 04/22/18 DULoxetine HCL [Cymbalta] 30 mg PO BID 11/21/17 04/22/18 Ferrous Sulfate [Iron (65 MG 325 mg PO DAILY 11/21/17 04/22/18 Elemental)] Fluticasone Propionate [Flovent 2 puff INHALATION RT-BID 11/21/17 04/22/18 Hfa 110mcg] Gabapentin [Neurontin] 400 mg PO TID 11/21/17 04/22/18 Glucagon Emergency Kit 1 mg IM ONCE PRN 11/21/17 04/22/18 Insulin Aspart [NovoLOG Flexpen] 5 unit SQ AC-TID 11/21/17 04/22/18 Insulin Aspart [NovoLOG Flexpen] See Protocol SQ TID PRN 11/21/17 04/22/18 Levothyroxine Sodium [Synthroid] 175 mcg PO DAILY 11/21/17 04/22/18 Montelukast [Singulair] 10 mg PO HS 11/21/17 04/22/18 Nitroglycerin Sl Tabs [Nitrostat] 0.4 mg SUBLINGUAL Q5M PRN 11/21/17 04/22/18 Polyethylene Glycol 3350 [Miralax] 17 gm PO DAILY PRN 11/21/17 04/22/18 Tofacitinib Citrate [Xeljanz Xr] 11 mg PO DAILY 11/21/17 04/22/18 Aspirin 81 mg PO DAILY 02/07/18 04/22/18 HYDROcodone/APAP 7.5-325MG [[place] 1 tab PO Q4-6H PRN 02/07/18 04/22/18 7.5-325] Insulin Degludec [Tresiba 40 unit SQ DAILY 02/07/18 04/22/18 Flextouch U-200] Ipratropium-Albuterol Nebulize 3 ml INHALATION RT-Q6H PRN 02/07/18 04/22/18 [Duoneb 0.5 mg-3 mg/3 ml Soln] Allergies Allergy/AdvReac Type Severity Reaction Status Date / Time No Known Allergies Allergy Verified 04/22/18 15:52 Review of Systems ROS Statement: Those systems with pertinent positive or pertinent negative responses have been documented in the HPI. ROS Other: All systems not noted in ROS Statement are negative. Past Medical History Past Medical History: Asthma, Coronary Artery Disease (CAD), Cancer, Heart Failure, COPD, Diabetes Mellitus, GI Bleed, Hyperlipidemia, Hypertension, Myocardial Infarction ([place]), Renal Disease, Rheumatoid Arthritis ([place]), Sleep Apnea/CPAP/BIPAP, Syncope, Thyroid Disorder Additional Past Medical History / Comment(s): Pt to have surgery on L knee next week, IDDM type II poorly controlled, bilateral peripheral neuropathy bilateral hands/feet, CKD stage IV, UTIs, legally blind bilaterally-sees minimally, thyroid cancer with surgery, goiter, hashimotos, diverticular disease, 2013 upper and lower GI bleeds with blood loss anemia, gout, R humeral fracture with surgery, incontence of bowel and occasionally bladder. Last Myocardial Infarction Date:: 2009 History of Any Multi-Drug Resistant Organisms: None Reported Past Surgical History: Adenoidectomy, Back Surgery, Cholecystectomy, Heart Catheterization With Stent, Tonsillectomy Additional Past Surgical History / Comment(s): PCI with stent 2009, low back surgery, total R shoulder and total R knee arthroplasties, bilateral hand trigger finger surgeries, EGD, colonoscopy, L eye laser eye surgery for bleed, thyroidectomy. Past Anesthesia/Blood Transfusion Reactions: No Reported Reaction Additional Past Anesthesia/Blood Transfusion Reaction / Comment(s): Pt has received blood in past without reaction. Date of Last Stent Placement:: 2009 Past Psychological History: Anxiety, Depression Smoking Status: Never smoker Past Alcohol Use History: None Reported Past Drug Use History: None Reported - Past Family History Mother Family Medical History: Asthma Additional Family Medical History / Comment(s): epilepsy Father Additional Family Medical History / Comment(s): many heart problems General Exam Limitations: no limitations Course Vital Signs 04/22/18 14:58 Temperature 97.7 F Pulse Rate 86 Respiratory 18 Rate Blood Pressure 164/87 O2 Sat by Pulse 100 Oximetry Medical Decision Making - Medical Decision Making EKG shows normal sinus rhythm at 70 bpm MS interval is 208 QRSs 102 QT interval 46 QTC is 462. Chest x-ray shows no acute abnormality. Patient had an elevated d-dimer however the patient had an elevated creatinine so a CT to rule out PE cannot be done. I started the patient heparin for unstable angina I spoke with Dr. Baca he was in agreement with this I wrote admitting orders I continued heparin and aspirin and nitro on the floor. I consult to cardiology. - Lab Data Result diagrams: 04/22/18 15:25 04/22/18 15:25 Lab Results 04/22/18 04/22/18 04/22/18 Range/Units 15:25 15:25 15:25 WBC 7.4 (3.8-10.6) k/uL RBC 4.00 (3.80-5.40) m/uL Hgb 12.3 (11.4-16.0) gm/dL Hct 37.0 (34.0-46.0) % MCV 92.5 (80.0-100.0) fL MCH 30.8 (25.0-35.0) pg MCHC 33.3 (31.0-37.0) g/dL RDW 14.4 (11.5-15.5) % Plt Count 226 (150-450) k/uL Neutrophils % 55 % Lymphocytes % 36 % Monocytes % 6 % Eosinophils % 2 % Basophils % 0 % Neutrophils # 4.1 (1.3-7.7) k/uL Lymphocytes # 2.6 (1.0-4.8) k/uL Monocytes # 0.4 (0-1.0) k/uL Eosinophils # 0.1 (0-0.7) k/uL Basophils # 0.0 (0-0.2) k/uL PT (9.0-12.0) sec INR (<1.2) APTT (22.0-30.0) sec D-Dimer (<0.60) mg/L FEU Sodium 137 (137-145) mmol/L Potassium 4.7 (3.5-5.1) mmol/L Chloride 98 (98-107) mmol/L Carbon Dioxide 30 (22-30) mmol/L Anion Gap 9 mmol/L BUN 42 H (7-17) mg/dL Creatinine 2.15 H (0.52-1.04) mg/dL Est GFR (CKD-EPI)AfAm 28 (>60 ml/min/1.73 sqM) Est GFR (CKD-EPI)NonAf 24 (>60 ml/min/1.73 sqM) Glucose 124 H (74-99) mg/dL Calcium 10.3 H (8.4-10.2) mg/dL Magnesium 2.1 (1.6-2.3) mg/dL Total Bilirubin 0.7 (0.2-1.3) mg/dL AST 48 H (14-36) U/L ALT 32 (9-52) U/L Alkaline Phosphatase 88 (38-126) U/L Total Creatine Kinase 309 H (30-135) U/L CK-MB (CK-2) 2.5 H (0.0-2.4) ng/mL CK-MB (CK-2) Rel Index 0.8 Troponin I 0.017 (0.000-0.034) ng/mL Total Protein 7.5 (6.3-8.2) g/dL Albumin 3.9 (3.5-5.0) g/dL 04/22/18 Range/Units 15:25 WBC (3.8-10.6) k/uL RBC (3.80-5.40) m/uL Hgb (11.4-16.0) gm/dL Hct (34.0-46.0) % MCV (80.0-100.0) fL MCH (25.0-35.0) pg MCHC (31.0-37.0) g/dL RDW (11.5-15.5) % Plt Count (150-450) k/uL Neutrophils % % Lymphocytes % % Monocytes % % Eosinophils % % Basophils % % Neutrophils # (1.3-7.7) k/uL Lymphocytes # (1.0-4.8) k/uL Monocytes # (0-1.0) k/uL Eosinophils # (0-0.7) k/uL Basophils # (0-0.2) k/uL PT 9.4 (9.0-12.0) sec INR 0.9 (<1.2) APTT 22.1 (22.0-30.0) sec D-Dimer 1.57 H (<0.60) mg/L FEU Sodium (137-145) mmol/L Potassium (3.5-5.1) mmol/L Chloride (98-107) mmol/L Carbon Dioxide (22-30) mmol/L Anion Gap mmol/L BUN (7-17) mg/dL Creatinine (0.52-1.04) mg/dL Est GFR (CKD-EPI)AfAm (>60 ml/min/1.73 sqM) Est GFR (CKD-EPI)NonAf (>60 ml/min/1.73 sqM) Glucose (74-99) mg/dL Calcium (8.4-10.2) mg/dL Magnesium (1.6-2.3) mg/dL Total Bilirubin (0.2-1.3) mg/dL AST (14-36) U/L ALT (9-52) U/L Alkaline Phosphatase (38-126) U/L Total Creatine Kinase (30-135) U/L CK-MB (CK-2) (0.0-2.4) ng/mL CK-MB (CK-2) Rel Index Troponin I (0.000-0.034) ng/mL Total Protein (6.3-8.2) g/dL Albumin (3.5-5.0) g/dL Critical Care Time Critical Care Time: Yes Total Critical Care Time: 35 Disposition Clinical Impression: Unstable angina pectoris Disposition: ADMITTED IP TO THIS HOSP Referrals: Jhonathan Baca MD [Primary Care Provider] - 1-2 days Time of Disposition: 17:10
[2018-04-22 15:47] LABS: Basophils % (A) 0 %; Eosinophils # (A) 0.1 k/uL (0-0.7); Eosinophils % (A) 2 %; HGB 12.3 gm/dL (11.4-16.0); Lymphocytes # (A) 2.6 k/uL (1.0-4.8); Lymphocytes % (A) 36 %; MCH 30.8 pg (25.0-35.0); MCHC 33.3 g/dL (31.0-37.0); MCV 92.5 fL (80.0-100.0); Mean Platelet Volume 7.3; Monocytes # (A) 0.4 k/uL (0-1.0); Monocytes % (A) 6 %; Neutrophils # (A) 4.1 k/uL (1.3-7.7); Neutrophils % (A) 55 %; Platelet Count 226 k/uL (150-450); RDW 14.4 % (11.5-15.5); WBC 7.4 k/uL (3.8-10.6)
[2018-04-22 15:57] LABS: Albumin 3.9 g/dL (3.5-5.0); Calcium 10.3 mg/dL (8.4-10.2); Magnesium 2.1 mg/dL (1.6-2.3); Potassium 4.7 mmol/L (3.5-5.1); Total Bilirubin 0.7 mg/dL (0.2-1.3); Total Protein 7.5 g/dL (6.3-8.2)
--- NOTE | 2018-04-22 15:57 | XR ---
EXAMINATION TYPE: XR chest 2V DATE OF EXAM: 04/22/2018 COMPARISON: Prior chest x-ray 08/06/2016 HISTORY: Chest pain TECHNIQUE: Frontal and lateral views of the chest are obtained. FINDINGS: There is no focal air space opacity, pleural effusion, or pneumothorax seen. The cardiac silhouette size is within normal limits. The osseous structures are intact. Postop change noted to the right shoulder. IMPRESSION: No acute cardiopulmonary process.
[2018-04-22 16:00] LABS: INR 0.9 (<1.2); Partial Thromboplastin Time 22.1 sec (22.0-30.0); Prothrombin Time 9.4 sec (9.0-12.0)
[2018-04-22 16:05] LABS: D-Dimer 1.57 mg/L FEU (<0.60)
[2018-04-22 16:08] LABS: Creatine Kinase MB 2.5 ng/mL (0.0-2.4); Troponin I 0.017 ng/mL (0.000-0.034)
[2018-04-22] MEDS ORDERED: HEPARIN SODIUM,PORCINE 5,000 UNIT/ML 1 ML VIAL IV ONE (16:47)
[2018-04-22] MEDS ORDERED: NITROGLYCERIN SL TABS 0.4 MG TAB SUBLINGUAL PRN (17:11)
[2018-04-22] MEDS: HEPARIN SOD,PORK IN 0.45% NACL 25,000 UNIT in 0.45% NACL 1 500ML.BAG IV SCH (17:33)
--- NOTE | 2018-04-22 19:50 | NM ---
EXAMINATION TYPE: NM pul vent and perfuse DATE OF EXAM: 04/22/2018 COMPARISON: Prior V/Q lung scan September 04, 2013. Chest x-ray earlier today. HISTORY: Elevated d-dimer. TECHNIQUE: Utilizing inhalation of 64.8 mCi Tc 99m DTPA aerosol and intravenous injection of 5.1 mCi of Tc 99m MAA, ventilation and perfusion images are acquired post injection in multiple projections. FINDINGS: Normal radiotracer distribution is noted in the lungs. There is no evidence of mismatched defects. IMPRESSION: Low scintigraphic evidence for pulmonary embolism.
[2018-04-22] MEDS ORDERED: IPRATROPIUM-ALBUTEROL 3 ML NEB INHALATION PRN (21:05)
[2018-04-22] MEDS ORDERED: POLYETHYLENE GLYCOL 3350 17 GM POWD.PACK PO PRN (21:05)
[2018-04-22] MEDS ORDERED: ALBUTEROL NEB (CONC) 2.5 MG/0.5 ML INHALATION PRN (21:05)
[2018-04-22] MEDS ORDERED: ALBUTEROL NEBULIZED 2.5 MG/3 ML INHALATION PRN (21:05)
[2018-04-22] MEDS ORDERED: INSULIN ASPART 100 UNIT/ML 1 ML 10 ML VIAL SQ SCH (21:12)
[2018-04-22] MEDS ORDERED: HEPARIN SODIUM,PORCINE 5,000 UNIT/ML 1 ML VIAL IV PRN (22:51)
[2018-04-22] MEDS: HYDROcodone/APAP 7.5-325MG 1 EACH TAB PO PRN (23:01)
[2018-04-22] MEDS: INSULIN ASPART 100 UNIT/ML 1 ML 10 ML VIAL SQ SCH (23:01)
[2018-04-22] MEDS: NITROGLYCERIN OINT 1 INCH/GM PACKET TOPICAL SCH (23:02)
[2018-04-22 23:04] LABS: Glucose,Whole Blood 177 mg/dL (75-99)
[2018-04-22 23:13] LABS: Creatine Kinase MB 2.2 ng/mL (0.0-2.4); Troponin I 0.016 ng/mL (0.000-0.034)
[2018-04-22] MEDS: INSULIN DETEMIR 100 UNIT/ML 10 ML VIAL SQ SCH (23:36)
[2018-04-22 23:51] LABS: Cholesterol 277 mg/dL (<200); HDL Cholesterol 52 mg/dL (40-60); LDL Cholesterol,Calculated 193 mg/dL (0-99); Triglycerides 162 mg/dL (<150)
[2018-04-23] MEDS: SODIUM BICARBONATE TAB 650 MG TAB PO SCH ×4 (00:12→19:56)
[2018-04-23] MEDS: GABAPENTIN 400 MG CAP PO SCH ×4 (00:12→19:55)
[2018-04-23] MEDS: CARVEDILOL 6.25 MG TAB PO SCH ×3 (00:12→17:06)
[2018-04-23] MEDS: DULoxetine HCL 30 MG CAPSULE.DR PO SCH ×3 (00:12→19:55)
[2018-04-23] MEDS: MONTELUKAST 10 MG TAB PO SCH ×2 (00:17→19:55)
[2018-04-23] MEDS: HYDROcodone/APAP 7.5-325MG 1 EACH TAB PO PRN ×3 (02:32→19:55)
[2018-04-23 04:10] LABS: Hemoglobin A1C 7.9 % (4.0-6.0)
[2018-04-23] MEDS: NITROGLYCERIN OINT 1 INCH/GM PACKET TOPICAL SCH ×4 (06:15→23:10)
[2018-04-23] MEDS: LEVOTHYROXINE 100 MCG TAB PO SCH (06:16)
[2018-04-23 06:59] LABS: Creatine Kinase MB 1.9 ng/mL (0.0-2.4); Troponin I 0.016 ng/mL (0.000-0.034)
[2018-04-23] MEDS: LEVOTHYROXINE 75 MCG TAB PO SCH (07:48)
[2018-04-23] MEDS: CALCIUM ACETATE 667 MG CAP PO SCH ×3 (07:48→17:06)
[2018-04-23] MEDS: INSULIN ASPART 100 UNIT/ML 1 ML 10 ML VIAL SQ SCH ×7 (07:49→19:56)
[2018-04-23] MEDS: FLUTICASONE 110 MCG INHALER INHALATION SCH ×2 (08:13→19:45)
--- NOTE | 2018-04-23 08:34 | P.HPIM ---
History of Present Illness H&P Date: 04/23/18 Chief Complaint: Chest pressure. This is a 62-year-old white female with known history of brittle diabetes who for the last 5 days has been complaining of significant worsening chest pressure. The patient has been fairly active without chest pain recently. Patient is a former smoker who has been abstinent for many many years. No fever or chills. No cough. She's been battling left foot fracture treatment. Evaluation in the emergency room, given her overall comorbidities, was to observe the patient and rule out myocardial infarction. Given her history of coronary artery disease with asthma and history of myocardial infarction in the past, she is appropriately admitted for observation. Review of Systems Constitutional: Reports fatigue, Denies chills, Denies fever Eyes: denies blurred vision, denies pain Ears, nose, mouth and throat: Denies headache, Denies sore throat Cardiovascular: Reports chest pain, Denies shortness of breath, Denies syncope Respiratory: Denies cough Gastrointestinal: Denies abdominal pain, Denies diarrhea, Denies nausea, Denies vomiting Genitourinary: Denies dysuria, Denies hematuria Past Medical History Past Medical History: Asthma, Coronary Artery Disease (CAD), Cancer, Heart Failure, COPD, Diabetes Mellitus, GI Bleed, Hyperlipidemia, Hypertension, Myocardial Infarction (DE), Renal Disease, Rheumatoid Arthritis (RA), Sleep Apnea/CPAP/BIPAP, Syncope, Thyroid Disorder Additional Past Medical History / Comment(s): IDDM type II poorly controlled, bilateral peripheral neuropathy bilateral hands/feet, CKD stage IV, UTIs, legally blind bilaterally-sees minimally, thyroid cancer with surgery, goiter, hashimotos, diverticular disease, 2014 upper and lower GI bleeds with blood loss anemia, gout, R humeral fracture with surgery, incontence of bowel and occasionally bladder. "lt ankle broke 3 places-casted, no wt bearing uses w/c"( pt stated she has had 15 falls in past 2 months) Last Myocardial Infarction Date:: 2009 History of Any Multi-Drug Resistant Organisms: None Reported Past Surgical History: Adenoidectomy, Back Surgery, Cholecystectomy, Heart Catheterization With Stent, Tonsillectomy Additional Past Surgical History / Comment(s): PCI with stent 2009, low back surgery, total R shoulder and total R knee arthroplasties, bilateral hand trigger finger surgeries, EGD, colonoscopy, L eye laser eye surgery for bleed, thyroidectomy. Past Anesthesia/Blood Transfusion Reactions: No Reported Reaction Additional Past Anesthesia/Blood Transfusion Reaction / Comment(s): Pt has received blood in past without reaction. Date of Last Stent Placement:: 2009 Smoking Status: Never smoker - Past Family History Mother Family Medical History: Asthma Additional Family Medical History / Comment(s): epilepsy Father Additional Family Medical History / Comment(s): many heart problems Medications and Allergies Home Medications Medication Instructions Recorded Confirmed Type Carvedilol [Coreg] 6.25 mg PO BID 02/23/15 04/22/18 History Furosemide [Lasix] 20 mg PO DAILY 02/23/15 04/22/18 History amLODIPine BESYLATE [Norvasc] 10 mg PO DAILY 02/23/15 04/22/18 History Sodium Bicarbonate 325 mg PO TID 08/06/16 04/22/18 History Albuterol Inhaler [Ventolin Hfa 1 - 2 puff INHALATION RT-Q6H PRN 11/21/17 History Inhaler] Albuterol Nebulized (Conc) 2.5 mg INHALATION RT-QID PRN 11/21/17 04/22/18 History [Ventolin Nebulized (Conc)] Allopurinol [Zyloprim] 300 mg PO DAILY 11/21/17 04/22/18 History Atorvastatin [Lipitor] 40 mg PO DAILY 11/21/17 04/22/18 History Calcium Acetate [PhosLo] 667 mg PO TID 11/21/17 04/22/18 History Cholecalciferol (Vitamin D3) 2,000 unit PO DAILY 11/21/17 04/22/18 History [Vitamin D3] Clopidogrel [Plavix] 75 mg PO DAILY 11/21/17 04/22/18 History DULoxetine HCL [Cymbalta] 30 mg PO BID 11/21/17 04/22/18 History Ferrous Sulfate [Iron (65 MG 325 mg PO DAILY 11/21/17 04/22/18 History Elemental)] Fluticasone Propionate [Flovent 2 puff INHALATION RT-BID 11/21/17 04/22/18 History Hfa 110mcg] Gabapentin [Neurontin] 400 mg PO TID 11/21/17 04/22/18 History Glucagon Emergency Kit 1 mg IM ONCE PRN 11/21/17 04/22/18 History Insulin Aspart [NovoLOG Flexpen] 5 unit SQ AC-TID 11/21/17 04/22/18 History Insulin Aspart [NovoLOG Flexpen] See Protocol SQ TID PRN 11/21/17 04/22/18 History Levothyroxine Sodium [Synthroid] 175 mcg PO DAILY 11/21/17 04/22/18 History Montelukast [Singulair] 10 mg PO HS 11/21/17 04/22/18 History Nitroglycerin Sl Tabs [Nitrostat] 0.4 mg SUBLINGUAL Q5M PRN 11/21/17 04/22/18 History Polyethylene Glycol 3350 [Miralax] 17 gm PO DAILY PRN 11/21/17 04/22/18 History Tofacitinib Citrate [Xeljanz Xr] 11 mg PO DAILY 11/21/17 04/22/18 History Aspirin 81 mg PO DAILY 02/07/18 04/22/18 History HYDROcodone/APAP 7.5-325MG [[place] 1 tab PO Q4-6H PRN 02/07/18 04/22/18 History 7.5-325] Insulin Degludec [Tresiba 40 unit SQ DAILY 02/07/18 04/22/18 History Flextouch U-200] Ipratropium-Albuterol Nebulize 3 ml INHALATION RT-Q6H PRN 02/07/18 04/22/18 History [Duoneb 0.5 mg-3 mg/3 ml Soln] Allergies Allergy/AdvReac Type Severity Reaction Status Date / Time No Known Allergies Allergy Verified 04/22/18 15:52 Physical Exam Vitals: Vital Signs Temp Pulse Pulse Resp BP BP Pulse Ox 04/23/18 07:46 97.9 F 89 18 103/70 97 04/23/18 03:33 18 04/23/18 03:32 97.4 F L 65 18 104/62 98 04/22/18 23:57 18 04/22/18 23:56 98.0 F 70 18 155/82 98 04/22/18 20:00 97.3 F L 74 18 121/86 99 04/22/18 18:30 148/76 04/22/18 18:20 148/76 04/22/18 18:10 64 14 148/76 98 04/22/18 18:00 64 18 170/95 98 04/22/18 17:50 64 18 170/95 100 04/22/18 17:40 66 10 L 170/95 99 04/22/18 17:30 64 11 L 173/102 98 04/22/18 17:20 64 10 L 173/102 99 04/22/18 17:10 64 14 173/102 98 04/22/18 17:00 66 16 147/99 98 04/22/18 16:50 66 8 L 147/99 100 04/22/18 16:40 66 12 147/99 98 04/22/18 16:30 114/60 100 04/22/18 16:20 114/60 98 04/22/18 16:10 114/60 100 04/22/18 16:00 139/94 100 04/22/18 15:50 20 139/94 99 04/22/18 15:40 139/94 99 04/22/18 15:30 173/83 99 04/22/18 15:20 173/83 99 04/22/18 15:10 173/83 99 04/22/18 15:06 98 04/22/18 14:58 97.7 F 86 18 164/87 100 Intake and Output 04/22/18 04/23/18 04/23/18 22:59 06:59 14:59 Intake Total 218.543 Balance 218.543 Intake: Intake, IV Titration 218.543 Amount Heparin Sod,Pork in 0.45% 218.543 NaCl 25,000 unit In 0.45 % NaCl 1 500ml.bag @ 12 UNITS/KG/HR 18.28 mls/hr IV .Q24H [facility] Rx#: [id number] Other: Voiding Method Toilet Toilet # Voids 2 - Constitutional General appearance: obese - EENT Eyes: EOMI - Neck Neck: no lymphadenopathy - Respiratory Respiratory: bilateral: CTA - Cardiovascular Rhythm: regular Heart sounds: normal: S1, S2 Abnormal Heart Sounds: no S3 Gallop - Gastrointestinal General gastrointestinal: soft, no tenderness - Integumentary Integumentary: no cellulitis - Neurologic Neurologic: CNII-XII intact - Musculoskeletal Musculoskeletal: gait normal - Psychiatric Psychiatric: A&O x's 3 Results CBC & Chem 7: 04/22/18 15:25 04/22/18 15:25 Labs: Abnormal Lab Results - Last 24 Hours (Table) 04/22/18 04/22/18 04/22/18 Range/Units 15:25 15:25 15:25 APTT (22.0-30.0) sec D-Dimer 1.57 H (<0.60) mg/L FEU BUN 42 H (7-17) mg/dL Creatinine 2.15 H (0.52-1.04) mg/dL Glucose 124 H (74-99) mg/dL POC Glucose (mg/dL) (75-99) mg/dL Hemoglobin A1c (4.0-6.0) % Calcium 10.3 H (8.4-10.2) mg/dL AST 48 H (14-36) U/L Total Creatine Kinase 309 H (30-135) U/L CK-MB (CK-2) 2.5 H (0.0-2.4) ng/mL Triglycerides (<150) mg/dL Cholesterol (<200) mg/dL LDL Cholesterol, Calc (0-99) mg/dL 04/22/18 04/22/18 04/22/18 Range/Units 15:25 22:22 22:22 APTT (22.0-30.0) sec D-Dimer (<0.60) mg/L FEU BUN (7-17) mg/dL Creatinine (0.52-1.04) mg/dL Glucose (74-99) mg/dL POC Glucose (mg/dL) (75-99) mg/dL Hemoglobin A1c 7.9 H (4.0-6.0) % Calcium (8.4-10.2) mg/dL AST (14-36) U/L Total Creatine Kinase 252 H (30-135) U/L CK-MB (CK-2) (0.0-2.4) ng/mL Triglycerides 162 H (<150) mg/dL Cholesterol 277 H (<200) mg/dL LDL Cholesterol, Calc 193 H (0-99) mg/dL 04/22/18 04/22/18 04/23/18 Range/Units 22:22 22:43 05:43 APTT 84.7 H (22.0-30.0) sec D-Dimer (<0.60) mg/L FEU BUN (7-17) mg/dL Creatinine (0.52-1.04) mg/dL Glucose (74-99) mg/dL POC Glucose (mg/dL) 177 H (75-99) mg/dL Hemoglobin A1c (4.0-6.0) % Calcium (8.4-10.2) mg/dL AST (14-36) U/L Total Creatine Kinase 207 H (30-135) U/L CK-MB (CK-2) (0.0-2.4) ng/mL Triglycerides (<150) mg/dL Cholesterol (<200) mg/dL LDL Cholesterol, Calc (0-99) mg/dL 04/23/18 Range/Units 05:43 APTT 63.7 H (22.0-30.0) sec D-Dimer (<0.60) mg/L FEU BUN (7-17) mg/dL Creatinine (0.52-1.04) mg/dL Glucose (74-99) mg/dL POC Glucose (mg/dL) (75-99) mg/dL Hemoglobin A1c (4.0-6.0) % Calcium (8.4-10.2) mg/dL AST (14-36) U/L Total Creatine Kinase (30-135) U/L CK-MB (CK-2) (0.0-2.4) ng/mL Triglycerides (<150) mg/dL Cholesterol (<200) mg/dL LDL Cholesterol, Calc (0-99) mg/dL Thrombosis Risk Factor Assmnt - Choose All That Apply Any of the Below Risk Factors Present?: Yes Each Factor Represents 1 point: Abnormal pulmonary function (COPD), Obesity ( BMI >25) Other Risk Factors: Yes Each Risk Factor Represents 2 Points: Age 61-74 years Other congenital or acquired thrombophilia - If yes, enter type in comment: No Thrombosis Risk Factor Assessment Total Risk Factor Score: 4 Thrombosis Risk Factor Assessment Level: Moderate Risk Assessment and Plan (1) Unstable angina pectoris Current Visit: Yes Status: Acute Code(s): I20.0 - UNSTABLE ANGINA SNOMED Code(s): 0610964 (2) Bimalleolar ankle fracture Current Visit: No Status: Acute Code(s): S82.843A - DISPLACED BIMALLEOLAR FRACTURE OF UNSP LOWER LEG, INIT SNOMED Code(s): 812519936 (3) Chronic renal failure Current Visit: No Status: Acute Code(s): N18.9 - CHRONIC KIDNEY DISEASE, UNSPECIFIED SNOMED Code(s): 16962634 (4) Hyperglycemia due to type 2 diabetes mellitus Current Visit: No Status: Acute Code(s): E11.65 - TYPE 2 DIABETES MELLITUS WITH HYPERGLYCEMIA SNOMED Code(s): 540596925356871 Plan: Rule out myocardial infraction. Consult cardiology. Reconcile home medications. The patient is otherwise a full code at this time. Question need for overt stress testing. See orders otherwise. Time with Patient: Greater than 30
[2018-04-23] MEDS ORDERED: ASPIRIN 81 MG PO SCH (09:00)
[2018-04-23] MEDS ORDERED: ATORVASTATIN 40 MG TAB PO SCH (09:00)
[2018-04-23] MEDS ORDERED: INSULIN DETEMIR 100 UNIT/ML 10 ML VIAL SQ SCH (09:00)
[2018-04-23] MEDS: FERROUS SULFATE 325 MG TAB PO SCH (09:22)
[2018-04-23] MEDS: amLODIPine 10 MG TAB PO SCH (09:22)
[2018-04-23] MEDS: FUROSEMIDE 20 MG TAB PO SCH (09:22)
[2018-04-23] MEDS: CLOPIDOGREL 75 MG TAB PO SCH (09:22)
[2018-04-23] MEDS: ATORVASTATIN 80 MG TAB PO SCH (09:22)
[2018-04-23] MEDS: ALLOPURINOL 300 MG TAB PO SCH (09:22)
[2018-04-23] MEDS: CHOLECALCIFEROL 1,000 UNIT TAB PO SCH (09:22)
[2018-04-23] MEDS: ASPIRIN 325 MG TAB PO SCH (09:22)
--- NOTE | 2018-04-23 11:38 | ECHOF ---
Referral Reason:echo MEASUREMENTS -------- HEIGHT: 162.6 cm WEIGHT: 117.9 kg BP: 103/70 RVIDd: 2.5 cm (< 3.3) IVSd: 1.2 cm (0.6 - 1.1) LVIDd: 4.6 cm (3.9 - 5.3) LVPWd: 1.1 cm (0.6 - 1.1) IVSs: 1.6 cm LVIDs: 2.8 cm LVPWs: 1.4 cm LA Diam: 3.3 cm (2.7 - 3.8) LAESV Index (A-L): 29.61 ml/m Ao Diam: 3.1 cm (2.0 - 3.7) AV Cusp: 1.6 cm (1.5 - 2.6) EPSS: 1.0 cm MV E Marlon: 1.34 m/s MV DecT: 229 ms MV A Marlon: 1.57 m/s MV E/A Ratio: 0.85 AV maxP.99 mmHg AV meanP.39 mmHg MV EF SLOPE: 30.77 mm/s (70 - 150) MV EXCURSION: 0.92 cm (> 18.000) FINDINGS -------- Sinus rhythm. This was a technically adequate study. The left ventricular size is normal. There is borderline concentric left ventricular hypertrophy. Overall left ventricular systolic function is normal with, an EF between 60 - 65 %. The right ventricle is normal in size. LA is midly dilated 29-33ml/m2. The right atrium is normal in size. There is mild aortic valve sclerosis. Trace to mild aortic regurgitation. The mitral valve leaflets are mildly thickened. Mild mitral annular calcification present. Mild m itral regurgitation is present. The peak and mean MV gradients are 12.70mmHg 4.82mmHg as measured by doppler. Mild mitral stenosis. The tricuspid valve was not well visualized. The pulmonic valve was not well visualized. The aortic root size is normal. IVC Not well visulized. There is a small, generalized pericardial effusion present. CONCLUSIONS -------- 1. Sinus rhythm. 2. This was a technically adequate study. 3. The left ventricular size is normal. 4. There is borderline concentric left ventricular hypertrophy. 5. Overall left ventricular systolic function is normal with, an EF between 60 - 65 %. 6. The right ventricle is normal in size. 7. LA is midly dilated 29-33ml/m2. 8. The right atrium is normal in size. 9. There is mild aortic valve sclerosis. 10. Trace to mild aortic regurgitation. 11. The mitral valve leaflets are mildly thickened. 12. Mild mitral annular calcification present. 13. Mild mitral regurgitation is present. 14. The peak and mean MV gradients are 12.70mmHg 4.82mmHg as measured by doppler. 15. Mild mitral stenosis. 16. The tricuspid valve was not well visualized. 17. The pulmonic valve was not well visualized. 18. The aortic root size is normal. 19. IVC Not well visulized. 20. There is a small, generalized pericardial effusion present. [employer] TEACHER: JULIO Kumar
--- NOTE | 2018-04-23 12:35 | CONS ---
CONSULTATION CHIEF COMPLAINT: Chest pain. Yocasta is a 62-year-old lady with history of coronary artery disease, status post angioplasty, hypertension, dyslipidemia, insulin-requiring diabetes, who presented to hospital complaining of chest pain. She describes it as a precordial chest discomfort that did not radiate to her neck, arm or back. It was unassociated with diaphoresis and unrelated to exertion. EKG shows sinus rhythm, poor R-wave progression and left axis deviation. She had a V/Q scan that was low probability for pulmonary embolism. Patient had fracture of the left foot and her physical activity is very limited. Patient had an echocardiogram done in January of 2018 that was within normal limits. Patient had an episode of syncope in January of this year and had been evaluated in the hospital. She had a negative Lexiscan in February of 2015. At the time of my evaluation, she is pain free hemodynamically stable, has had 3 sets of cardiac enzymes that are negative. Her LDL cholesterol is elevated at 193. Patient is currently on aspirin, Lipitor, Coreg, I am not quite sure how well she is taking her Lipitor. Patient is currently being treated with intravenous heparin for unstable angina. PAST MEDICAL HISTORY: Significant for coronary artery disease, status post angioplasty, fracture, hypertension, diabetes, dyslipidemia. MEDICATIONS: Include Singulair, DuoNeb, insulin, [place], Ventolin, Norvasc, Synthroid, Lasix, Neurontin, Flovent, Cymbalta, Plavix, Coreg, Lipitor, and Zyloprim. ALLERGIES: There are no known drug allergies. FAMILY HISTORY: Negative for premature coronary artery disease. SOCIAL HISTORY: Negative for current smoking, EtOH abuse, or drug abuse. REVIEW OF SYSTEMS: HEENT is unremarkable. CARDIAC: As described above. RESPIRATORY: Negative. GI: Negative. GENITOURINARY: Negative. ALLERGY: None. SKIN: Negative. MUSCULOSKELETAL: Significant for arthritis. PSYCHOSOCIAL: Negative. ENDOCRINE:: Negative. CONSTITUTIONAL: Negative. ONCOLOGICAL: Negative. The rest of the system review is not relevant. PHYSICAL EXAM: Patient is afebrile. Heart rate is 80 beats per minute. Blood pressure is 103/70, respiratory rate is 18. Chest exam reveals diminished air entry at the bases. Heart exam reveals first and second heart sounds. No gallop. No murmur. No rub. Abdomen is soft, nontender. Exam of extremities did not reveal any edema. Peripheral pulses are felt. Her creatinine on admission is elevated at 2.15. Her D-dimer was up at 1.57 and had a V/Q scan. ASSESSMENT: 1. Unstable angina. 2. Dyslipidemia. 3. Coronary artery disease, status post angioplasty. 4. Hypertension. 5. Diabetes. PLAN: I will continue the patient on intravenous heparin, hydrate her and if creatinine improves, consider cardiac catheterization tomorrow. I will obtain a 2D echo in the meantime. MARYELLEN / PRISCILLA: [id number] /
[2018-04-23 16:05] LABS: Glucose,Whole Blood 75 mg/dL (75-99)
[2018-04-23 19:51] LABS: Glucose,Whole Blood 207 mg/dL (75-99)
[2018-04-23] MEDS: INSULIN DETEMIR 100 UNIT/ML 10 ML VIAL SQ SCH (19:57)
[2018-04-23] MEDS: HEPARIN SOD,PORK IN 0.45% NACL 25,000 UNIT in 0.45% NACL 1 500ML.BAG IV SCH (21:36)
[2018-04-24] MEDS: HYDROcodone/APAP 7.5-325MG 1 EACH TAB PO PRN (03:00)
[2018-04-24] MEDS: NITROGLYCERIN OINT 1 INCH/GM PACKET TOPICAL SCH ×4 (04:12→23:01)
[2018-04-24] MEDS: LEVOTHYROXINE 100 MCG TAB PO SCH (06:05)
[2018-04-24] MEDS: LEVOTHYROXINE 75 MCG TAB PO SCH (06:05)
[2018-04-24 06:43] LABS: Glucose,Whole Blood 160 mg/dL (75-99)
[2018-04-24] MEDS: FLUTICASONE 110 MCG INHALER INHALATION SCH ×2 (07:33→21:34)
--- NOTE | 2018-04-24 08:28 | P.PN ---
Subjective Progress Note Date: 04/24/18 Principal diagnosis: Chest pain with ankle fracture. This is a continue present on a 62-year-old white female who states that he she came in with chest pain area and however, she states her real intention was to try to get her ankle fracture fixed here. She does have scheduled surgery in [place] with the doctor who is covering for Dr. Sandhu. She states that someone told her that I should admit her for [address] jail prior to the surgery event because her home is not handicap accessible and she can't weight-bear, due to the restrictions of her surgeon. Cardiology has now been consulted. The patient still is on heparin. I do appreciate input. I have told her that given the fact that she has surgery scheduled, that it was most unlikely to have surgical repair here. As far as the discharge plan, I suspect that we will need to have a family member or friend help her at home with home health, if at all possible. Objective - Vital Signs Vital signs: Vital Signs Temp 98.4 F 04/24/18 07:00 Pulse 72 04/24/18 07:00 Resp 18 04/24/18 07:00 BP 109/64 04/24/18 07:00 Pulse Ox 93 L 04/24/18 07:00 Intake & Output 04/23/18 04/24/18 04/24/18 18:59 06:59 18:59 Intake Total 340 227.584 Balance 340 227.584 Intake: Intake, IV Titration 227.584 Amount Heparin Sod,Pork in 0.45% 227.584 NaCl 25,000 unit In 0.45 % NaCl 1 500ml.bag @ 12 UNITS/KG/HR 18.28 mls/hr IV .Q24H [facility] Rx#: [id number] Oral 240 Other 100 Other: Voiding Method Bedside Commode Bedside Commode Diaper Diaper # Voids 1 1 - Constitutional General appearance: Present: obese - EENT Eyes: Absent: abnormal pupil - Neck Neck: Absent: lymphadenopathy - Respiratory Respiratory: bilateral: CTA - Cardiovascular Rhythm: regular Heart sounds: normal: S1, S2 Abnormal Heart Sounds: Absent: S3 Gallop - Gastrointestinal General gastrointestinal: Absent: tenderness - Psychiatric Psychiatric: Present: A&O x's 3. Absent: appropriate affect - Labs CBC & Chem 7: 04/22/18 15:25 04/22/18 15:25 Labs: Abnormal Lab Results - Last 24 Hours (Table) 04/23/18 04/24/18 04/24/18 Range/Units 19:48 06:16 06:39 APTT 48.4 H (22.0-30.0) sec POC Glucose (mg/dL) 207 H 160 H (75-99) mg/dL Assessment and Plan (1) Unstable angina pectoris Current Visit: Yes Status: Acute Code(s): I20.0 - UNSTABLE ANGINA SNOMED Code(s): 6865188 (2) Bimalleolar ankle fracture Current Visit: No Status: Acute Code(s): S82.843A - DISPLACED BIMALLEOLAR FRACTURE OF UNSP LOWER LEG, INIT SNOMED Code(s): 588108059 (3) Chronic renal failure Current Visit: No Status: Acute Code(s): N18.9 - CHRONIC KIDNEY DISEASE, UNSPECIFIED SNOMED Code(s): 83713300 (4) Hyperglycemia due to type 2 diabetes mellitus Current Visit: No Status: Acute Code(s): E11.65 - TYPE 2 DIABETES MELLITUS WITH HYPERGLYCEMIA SNOMED Code(s): 673339363374155 Plan: Anticipate discharge when cleared by cardiology. Question need to consult orthopedics, just to justify that she should continue to wait until Saturday for her scheduled surgery. conference services director to help with discharge planning. See orders otherwise.
[2018-04-24] MEDS: FUROSEMIDE 20 MG TAB PO SCH (09:16)
[2018-04-24] MEDS: CHOLECALCIFEROL 1,000 UNIT TAB PO SCH (09:16)
[2018-04-24] MEDS: ASPIRIN 325 MG TAB PO SCH (09:16)
[2018-04-24] MEDS: CARVEDILOL 6.25 MG TAB PO SCH ×2 (09:16→16:59)
[2018-04-24] MEDS: amLODIPine 10 MG TAB PO SCH (09:16)
[2018-04-24] MEDS: CLOPIDOGREL 75 MG TAB PO SCH (09:16)
[2018-04-24] MEDS: GABAPENTIN 400 MG CAP PO SCH ×3 (09:16→21:32)
[2018-04-24] MEDS: ATORVASTATIN 80 MG TAB PO SCH (09:16)
[2018-04-24] MEDS: SODIUM BICARBONATE TAB 650 MG TAB PO SCH ×3 (09:17→21:32)
[2018-04-24] MEDS: DULoxetine HCL 30 MG CAPSULE.DR PO SCH ×2 (09:17→21:32)
[2018-04-24] MEDS: FERROUS SULFATE 325 MG TAB PO SCH (09:17)
--- NOTE | 2018-04-24 09:18 | P.CNOR ---
History of Present Illness - [facility] Consult date: 04/24/18 Consult reason: fracture (Left ankle) History of present illness: This is a 62-year-old female admitted with chest pain. She was previously in the emergency department on 04/17/2018 after falling and sustaining injury to her left ankle. She was seen in Dr. Sandhu's office and was scheduled for surgery with a surgeon in the [place] area. The patient states that she is looking for rehab placement and would like her ankle fixed on this admission. We're consulted for orthopedic evaluation of her left ankle. Past Medical History Past Medical History: Asthma, Coronary Artery Disease (CAD), Cancer, Heart Failure, COPD, Diabetes Mellitus, GI Bleed, Hyperlipidemia, Hypertension, Myocardial Infarction ([place]), Renal Disease, Rheumatoid Arthritis (RA), Sleep Apnea/CPAP/BIPAP, Syncope, Thyroid Disorder Additional Past Medical History / Comment(s): IDDM type II poorly controlled, bilateral peripheral neuropathy bilateral hands/feet, CKD stage IV, UTIs, legally blind bilaterally-sees minimally, thyroid cancer with surgery, goiter, hashimotos, diverticular disease, 2014 upper and lower GI bleeds with blood loss anemia, gout, R humeral fracture with surgery, incontence of bowel and occasionally bladder. "lt ankle broke 3 places-casted, no wt bearing uses w/c"( pt stated she has had 15 falls in past 2 months) Last Myocardial Infarction Date:: 2009 History of Any Multi-Drug Resistant Organisms: None Reported Past Surgical History: Adenoidectomy, Back Surgery, Cholecystectomy, Heart Catheterization With Stent, Tonsillectomy Additional Past Surgical History / Comment(s): PCI with stent 2009, low back surgery, total R shoulder and total R knee arthroplasties, bilateral hand trigger finger surgeries, EGD, colonoscopy, L eye laser eye surgery for bleed, thyroidectomy. Past Anesthesia/Blood Transfusion Reactions: No Reported Reaction Additional Past Anesthesia/Blood Transfusion Reaction / Comm: Pt has received blood in past without reaction. Date of Last Stent Placement:: 2009 Smoking Status: Never smoker - Past Family History Mother Family Medical History: Asthma Additional Family Medical History / Comment(s): epilepsy Father Additional Family Medical History / Comment(s): many heart problems Medications and Allergies Home Medications Medication Instructions Recorded Confirmed Type Carvedilol [Coreg] 6.25 mg PO BID 02/23/15 04/22/18 History Furosemide [Lasix] 20 mg PO DAILY 02/23/15 04/22/18 History amLODIPine BESYLATE [Norvasc] 10 mg PO DAILY 02/23/15 04/22/18 History Sodium Bicarbonate 325 mg PO TID 08/06/16 04/22/18 History Albuterol Inhaler [Ventolin Hfa 1 - 2 puff INHALATION RT-Q6H PRN 11/21/17 History Inhaler] Albuterol Nebulized (Conc) 2.5 mg INHALATION RT-QID PRN 11/21/17 04/22/18 History [Ventolin Nebulized (Conc)] Allopurinol [Zyloprim] 300 mg PO DAILY 11/21/17 04/22/18 History Atorvastatin [Lipitor] 40 mg PO DAILY 11/21/17 04/22/18 History Calcium Acetate [PhosLo] 667 mg PO TID 11/21/17 04/22/18 History Cholecalciferol (Vitamin D3) 2,000 unit PO DAILY 11/21/17 04/22/18 History [Vitamin D3] Clopidogrel [Plavix] 75 mg PO DAILY 11/21/17 04/22/18 History DULoxetine HCL [Cymbalta] 30 mg PO BID 11/21/17 04/22/18 History Ferrous Sulfate [Iron (65 MG 325 mg PO DAILY 11/21/17 04/22/18 History Elemental)] Fluticasone Propionate [Flovent 2 puff INHALATION RT-BID 11/21/17 04/22/18 History Hfa 110mcg] Gabapentin [Neurontin] 400 mg PO TID 11/21/17 04/22/18 History Glucagon Emergency Kit 1 mg IM ONCE PRN 11/21/17 04/22/18 History Insulin Aspart [NovoLOG Flexpen] 5 unit SQ AC-TID 11/21/17 04/22/18 History Insulin Aspart [NovoLOG Flexpen] See Protocol SQ TID PRN 11/21/17 04/22/18 History Levothyroxine Sodium [Synthroid] 175 mcg PO DAILY 11/21/17 04/22/18 History Montelukast [Singulair] 10 mg PO HS 11/21/17 04/22/18 History Nitroglycerin Sl Tabs [Nitrostat] 0.4 mg SUBLINGUAL Q5M PRN 11/21/17 04/22/18 History Polyethylene Glycol 3350 [Miralax] 17 gm PO DAILY PRN 11/21/17 04/22/18 History Tofacitinib Citrate [Xeljanz Xr] 11 mg PO DAILY 11/21/17 04/22/18 History Aspirin 81 mg PO DAILY 02/07/18 04/22/18 History HYDROcodone/APAP 7.5-325MG [[place] 1 tab PO Q4-6H PRN 02/07/18 04/22/18 History 7.5-325] Insulin Degludec [Tresiba 40 unit SQ DAILY 02/07/18 04/22/18 History Flextouch U-200] Ipratropium-Albuterol Nebulize 3 ml INHALATION RT-Q6H PRN 02/07/18 04/22/18 History [Duoneb 0.5 mg-3 mg/3 ml Soln] Allergies Allergy/AdvReac Type Severity Reaction Status Date / Time No Known Allergies Allergy Verified 04/22/18 15:52 Physical Examination This is a pleasant 62-year-old female in no acute distress. She is alert and oriented 3. Exam of the lower extremities reveals a short leg splint in place to the left leg. She has full toe motion. She has limited sensation to the toes secondary to her neuropathy. Capillary refills less than 3 seconds. The remainder of her musculoskeletal exam is unremarkable. Results X-rays of the left ankle taken on 04/17/2018 reveal a mildly displaced distal fibular fracture with a small avulsion off of the medial malleolus. There is some widening noted to the mortise. There is a small posterior malleolar fracture noted as well. - Labs Labs: Abnormal Lab Results - Last 24 Hours (Table) 04/23/18 04/24/18 04/24/18 Range/Units 19:48 06:16 06:39 APTT 48.4 H (22.0-30.0) sec POC Glucose (mg/dL) 207 H 160 H (75-99) mg/dL H & H 04/22/18 Range/Units 15:25 Hgb 12.3 (11.4-16.0) gm/dL Hct 37.0 (34.0-46.0) % Coagulation 04/22/18 Range/Units 15:25 INR 0.9 (<1.2) Result Diagrams: 04/22/18 15:25 04/22/18 15:25 Assessment and Plan (1) Diabetic neuropathy Current Visit: Yes Status: Acute Code(s): E11.40 - TYPE 2 DIABETES MELLITUS WITH DIABETIC NEUROPATHY, UNSP SNOMED Code(s): 753448935 (2) Unstable angina pectoris Current Visit: Yes Status: Acute Code(s): I20.0 - UNSTABLE ANGINA SNOMED Code(s): 4402166 (3) Bimalleolar ankle fracture Current Visit: No Status: Acute Code(s): S82.843A - DISPLACED BIMALLEOLAR FRACTURE OF UNSP LOWER LEG, INIT SNOMED Code(s): 490695975 (4) Chest pain Current Visit: No Status: Acute Code(s): R07.9 - CHEST PAIN, UNSPECIFIED SNOMED Code(s): 94402590 (5) Hyperglycemia due to type 2 diabetes mellitus Current Visit: No Status: Acute Code(s): E11.65 - TYPE 2 DIABETES MELLITUS WITH HYPERGLYCEMIA SNOMED Code(s): 004531897991787 Plan: The clinical and x-ray findings are discussed with the patient. She is currently under the care of an orthopedic surgeon who has scheduled surgery. It is recommended the patient follow-up with that surgeon for her scheduled procedure.
[2018-04-24] MEDS: INSULIN ASPART 100 UNIT/ML 1 ML 10 ML VIAL SQ SCH ×7 (09:23→21:31)
--- NOTE | 2018-04-24 10:09 | CDI ---
Last Revision, May 2017 Documentation Clarification Form Date: 04/24/2018 10:01:40 AM From: Bev Frey RN, CCDS Admit Date: 04/23/2018 5:38:00 PM Patient Name: Yocasta Ho Visit Number: [id number] ATTENTION: The Clinical Documentation Specialists (CDI) and [facility] Coding Staff appreciate your assistance in clarifying documentation. Please respond to the clarification below the line at the bottom and electronically sign. The CDI & [facility] Coding staff will review the response and follow-up if needed. Please note: Queries are made part of the Legal Health Record. If you have any questions, please contact the author of this message via ITS. Jhonathan Ellis MD/ Asha Ibarra CNP History/Risk Factors: CHF, CRF stage 4, DM2 w/ hyperglycemia and complications, MS w stents, RA, COURTNEY, Syncope, thyroidectomy Clinical Indicators: VS/Pulse OX: temp 97.7, Hr 86, RR 18, B/P 164/87, spo2 1005 ra 04/23/18 Echocardiogram Results: EF 60-65%, small generalized pericardial effusion Chest X Ray:- Treatment: Lasix 20 mg PO Daily In your professional opinion, can you please clarify the acuity and type of CHF if known? Chronic Diastolic Heart Failure: Chronic Systolic & Diastolic Heart Failure: Unable to Determine Other, please specify Please continue to document in your progress notes and discharge summary in order to capture severity of illness and risk of mortality. Include clinical findings that support your diagnosis. MTDD
[2018-04-24] MEDS: ARTIFICIAL TEARS-HYPROMELLOSE DROPS 15 ML BTL RIGHT EYE SCH ×2 (10:13→22:51)
[2018-04-24] MEDS: ARTIFICIAL TEARS-HYPROMELLOSE DROPS 15 ML BTL LEFT EYE PRN (10:13)
[2018-04-24] MEDS: ALLOPURINOL 300 MG TAB PO SCH (10:13)
[2018-04-24] MEDS: CALCIUM ACETATE 667 MG CAP PO SCH ×3 (10:13→16:58)
[2018-04-24 11:42] LABS: Glucose,Whole Blood 138 mg/dL (75-99)
--- NOTE | 2018-04-24 12:00 | PN ---
PROGRESS NOTE Patient is admitted with chest pain but now she denies chest pain, doing well, and is free of symptoms. An echocardiogram shows normal LV function. PHYSICAL EXAM: She is comfortable at rest. Vital signs are stable. There is no jugular venous distention. Chest exam reveals good air entry bilaterally. Heart exam reveals first and second heart sounds. No gallop. Exam of the extremities reveals fractured ankle. ASSESSMENT: Chest pain atypical, probably noncardiac. echo looks normal. No further cardiac workup at this time. I will stop the heparin. When stable, she can be discharged home. I will consider an outpatient stress test on her over the next several weeks. MMODL / IJN: [id number] /
[2018-04-24 16:46] LABS: Glucose,Whole Blood 143 mg/dL (75-99)
[2018-04-24] MEDS: HEPARIN SOD,PORK IN 0.45% NACL 25,000 UNIT in 0.45% NACL 1 500ML.BAG IV SCH (17:01)
[2018-04-24 20:39] LABS: Glucose,Whole Blood 210 mg/dL (75-99)
[2018-04-24] MEDS: MONTELUKAST 10 MG TAB PO SCH (21:32)
[2018-04-24] MEDS: INSULIN DETEMIR 100 UNIT/ML 10 ML VIAL SQ SCH (21:32)
[2018-04-25] MEDS: HYDROcodone/APAP 7.5-325MG 1 EACH TAB PO PRN ×3 (01:28→16:47)
[2018-04-25] MEDS: LEVOTHYROXINE 75 MCG TAB PO SCH (05:36)
[2018-04-25] MEDS: LEVOTHYROXINE 100 MCG TAB PO SCH (05:36)
[2018-04-25] MEDS: NITROGLYCERIN OINT 1 INCH/GM PACKET TOPICAL SCH ×3 (05:38→17:23)
[2018-04-25 07:33] LABS: Glucose,Whole Blood 91 mg/dL (75-99)
[2018-04-25] MEDS: FLUTICASONE 110 MCG INHALER INHALATION SCH ×2 (07:59→20:14)
--- NOTE | 2018-04-25 08:23 | P.PN ---
Subjective Principal diagnosis: Ankle fracture This is a a continue progress on a 62-year-old white female with history of diabetes who came in with chest pain, but because of previous ankle fracture and poor home conditions, is being kept for the weekend to be transferred to [facility] on Saturday to then be transferred to surgery at [facility] in [place]. The patient is requesting MiraLAX morning. No significant chest pain or shortness of breath. No nausea, vomiting or diarrhea. Pain is fairly well controlled. Objective - Vital Signs Vital signs: Vital Signs Temp 97.9 F 04/25/18 07:15 Pulse 69 04/25/18 07:15 Resp 16 04/25/18 07:15 BP 145/79 04/25/18 07:15 Pulse Ox 97 04/25/18 07:15 Intake & Output 04/24/18 04/25/18 04/25/18 18:59 06:59 18:59 Intake Total 722 600 Balance 722 600 Intake: Oral 622 600 Other 100 Other: Voiding Method Bedside Commode Bedside Commode Diaper Diaper # Voids 1 1 - Constitutional General appearance: Present: obese - EENT Eyes: Absent: abnormal pupil - Respiratory Respiratory: bilateral: CTA - Cardiovascular Rhythm: regular Heart sounds: normal: S1, S2 Abnormal Heart Sounds: Absent: S3 Gallop - Gastrointestinal General gastrointestinal: Present: soft. Absent: tenderness - Psychiatric Psychiatric: Present: A&O x's 3 - Labs CBC & Chem 7: 04/22/18 15:25 04/22/18 15:25 Labs: Abnormal Lab Results - Last 24 Hours (Table) 04/24/18 04/24/18 04/24/18 Range/Units 11:39 16:43 20:06 POC Glucose (mg/dL) 138 H 143 H 210 H (75-99) mg/dL Assessment and Plan (1) Unstable angina pectoris Current Visit: Yes Status: Acute Code(s): I20.0 - UNSTABLE ANGINA SNOMED Code(s): 0691641 (2) Bimalleolar ankle fracture Current Visit: No Status: Acute Code(s): S82.843A - DISPLACED BIMALLEOLAR FRACTURE OF UNSP LOWER LEG, INIT SNOMED Code(s): 281288394 (3) Chronic renal failure Current Visit: No Status: Acute Code(s): N18.9 - CHRONIC KIDNEY DISEASE, UNSPECIFIED SNOMED Code(s): 09786587 (4) Hyperglycemia due to type 2 diabetes mellitus Current Visit: No Status: Acute Code(s): E11.65 - TYPE 2 DIABETES MELLITUS WITH HYPERGLYCEMIA SNOMED Code(s): 982584933272646 Plan: We'll go ahead and continue current regimen of treatment. Anticipate transfer to [facility] on Saturday. Dr. Shah's group will covering for the weekend. Check CMP and CBC in a.m.
[2018-04-25] MEDS: ARTIFICIAL TEARS-HYPROMELLOSE DROPS 15 ML BTL RIGHT EYE SCH ×2 (09:02→22:03)
[2018-04-25] MEDS: ALLOPURINOL 300 MG TAB PO SCH (09:02)
[2018-04-25] MEDS: FUROSEMIDE 20 MG TAB PO SCH (09:02)
[2018-04-25] MEDS: GABAPENTIN 400 MG CAP PO SCH ×3 (09:02→22:03)
[2018-04-25] MEDS: FERROUS SULFATE 325 MG TAB PO SCH (09:02)
[2018-04-25] MEDS: amLODIPine 10 MG TAB PO SCH (09:02)
[2018-04-25] MEDS: SODIUM BICARBONATE TAB 650 MG TAB PO SCH ×3 (09:02→22:07)
[2018-04-25] MEDS: ATORVASTATIN 80 MG TAB PO SCH (09:02)
[2018-04-25] MEDS: CHOLECALCIFEROL 1,000 UNIT TAB PO SCH (09:02)
[2018-04-25] MEDS: DULoxetine HCL 30 MG CAPSULE.DR PO SCH ×2 (09:02→22:07)
[2018-04-25] MEDS: CALCIUM ACETATE 667 MG CAP PO SCH ×3 (09:02→17:55)
[2018-04-25] MEDS: CARVEDILOL 6.25 MG TAB PO SCH ×2 (09:04→16:46)
[2018-04-25] MEDS: ASPIRIN 325 MG TAB PO SCH (09:07)
[2018-04-25] MEDS: INSULIN ASPART 100 UNIT/ML 1 ML 10 ML VIAL SQ SCH ×7 (09:07→22:03)
[2018-04-25] MEDS: CLOPIDOGREL 75 MG TAB PO SCH (09:07)
[2018-04-25 12:37] LABS: Glucose,Whole Blood 131 mg/dL (75-99)
[2018-04-25 17:19] LABS: Glucose,Whole Blood 142 mg/dL (75-99)
[2018-04-25 20:26] LABS: Glucose,Whole Blood 249 mg/dL (75-99)
[2018-04-25] MEDS: HEPARIN SODIUM,PORCINE 5,000 UNIT/ML 1 ML VIAL SQ SCH (22:03)
[2018-04-25] MEDS: INSULIN DETEMIR 100 UNIT/ML 10 ML VIAL SQ SCH (22:03)
[2018-04-25] MEDS: MONTELUKAST 10 MG TAB PO SCH (22:03)
[2018-04-26] MEDS: NITROGLYCERIN OINT 1 INCH/GM PACKET TOPICAL SCH ×5 (00:02→23:45)
[2018-04-26] MEDS: LEVOTHYROXINE 75 MCG TAB PO SCH (05:35)
[2018-04-26] MEDS: LEVOTHYROXINE 100 MCG TAB PO SCH (05:35)
[2018-04-26 07:29] LABS: Glucose,Whole Blood 133 mg/dL (75-99)
[2018-04-26] MEDS: INSULIN ASPART 100 UNIT/ML 1 ML 10 ML VIAL SQ SCH ×7 (07:43→21:05)
[2018-04-26] MEDS: HEPARIN SODIUM,PORCINE 5,000 UNIT/ML 1 ML VIAL SQ SCH ×2 (07:44→21:05)
[2018-04-26] MEDS: HYDROcodone/APAP 7.5-325MG 1 EACH TAB PO PRN (07:52)
[2018-04-26] MEDS: CALCIUM ACETATE 667 MG CAP PO SCH ×3 (07:53→17:19)
[2018-04-26] MEDS: CHOLECALCIFEROL 1,000 UNIT TAB PO SCH (07:53)
[2018-04-26] MEDS: CARVEDILOL 6.25 MG TAB PO SCH ×2 (07:54→17:19)
[2018-04-26] MEDS: ALLOPURINOL 300 MG TAB PO SCH (07:54)
[2018-04-26] MEDS: GABAPENTIN 400 MG CAP PO SCH ×3 (07:54→21:05)
[2018-04-26] MEDS: SODIUM BICARBONATE TAB 650 MG TAB PO SCH ×3 (07:54→21:05)
[2018-04-26] MEDS: ARTIFICIAL TEARS-HYPROMELLOSE DROPS 15 ML BTL RIGHT EYE SCH ×2 (07:54→21:06)
[2018-04-26] MEDS: FUROSEMIDE 20 MG TAB PO SCH (07:55)
[2018-04-26] MEDS: ATORVASTATIN 80 MG TAB PO SCH (07:55)
[2018-04-26] MEDS: ARTIFICIAL TEARS-HYPROMELLOSE DROPS 15 ML BTL LEFT EYE PRN (07:55)
[2018-04-26] MEDS: FERROUS SULFATE 325 MG TAB PO SCH (07:55)
[2018-04-26] MEDS: amLODIPine 10 MG TAB PO SCH (07:55)
[2018-04-26] MEDS: DULoxetine HCL 30 MG CAPSULE.DR PO SCH ×2 (07:56→21:43)
[2018-04-26 08:11] LABS: HCT 34.3 % (34.0-46.0); HGB 11.1 gm/dL (11.4-16.0); MCH 30.8 pg (25.0-35.0); MCHC 32.4 g/dL (31.0-37.0); MCV 95.1 fL (80.0-100.0); Mean Platelet Volume 7.6; Platelet Count 161 k/uL (150-450); RDW 14.5 % (11.5-15.5); WBC 5.5 k/uL (3.8-10.6)
[2018-04-26 08:20] LABS: Albumin 3.3 g/dL (3.5-5.0); Calcium 9.9 mg/dL (8.4-10.2); Potassium 4.7 mmol/L (3.5-5.1); Total Bilirubin 0.6 mg/dL (0.2-1.3); Total Protein 6.3 g/dL (6.3-8.2)
--- NOTE | 2018-04-26 10:49 | P.PN ---
Subjective Progress Note Date: 04/26/18 Principal diagnosis: Unstable angina and bimalleolar ankle fracture Ms. Ho is a 62-year-old female with a past medical history of asthma, coronary artery disease, heart failure, COPD, emphysematous mellitus, morbid obesity, hyperlipidemia, hypertension, rheumatoid arthritis admitted to the hospital with a chief complaint of worsening chest pain. Patient also has left foot fracture and is undergoing treatment for it. Today the patient is sitting up in the chair by the bedside appears to be no acute distress. Patient states that she is doing okay and no acute overnight active events reported by nursing staff. Patient denies having any chest pain or difficulty in breathing. No abdominal pain nausea vomiting or diarrhea. She states that she has been dealing with a left ankle fracture for a while. Objective - Vital Signs Vital signs: Vital Signs Temp 98 F 04/26/18 08:00 Pulse 73 04/26/18 08:00 Resp 12 04/26/18 08:00 BP 152/87 04/26/18 08:00 Pulse Ox 99 04/26/18 08:00 Intake & Output 04/25/18 04/26/18 04/26/18 18:59 06:59 18:59 Other: Voiding Method Bedside Commode Bedside Commode Diaper Diaper # Voids 2 2 - Exam Constitutional General appearance: Present: obese - EENT Eyes: Absent: abnormal pupil - Respiratory Respiratory: bilateral: CTA - Cardiovascular Rhythm: regular Heart sounds: normal: S1, S2 Abnormal Heart Sounds: Absent: S3 Gallop - Gastrointestinal General gastrointestinal: Present: soft. Absent: tenderness - Psychiatric Psychiatric: Present: A&O x's 3 Left lower extremity wrapped in a Jesus bandage. - Labs CBC & Chem 7: 04/26/18 07:34 04/26/18 07:34 Labs: Abnormal Lab Results - Last 24 Hours (Table) 04/25/18 04/25/18 04/25/18 Range/Units 12:16 17:08 20:14 RBC (3.80-5.40) m/uL Hgb (11.4-16.0) gm/dL Carbon Dioxide (22-30) mmol/L BUN (7-17) mg/dL Creatinine (0.52-1.04) mg/dL Glucose (74-99) mg/dL POC Glucose (mg/dL) 131 H 142 H 249 H (75-99) mg/dL AST (14-36) U/L Albumin (3.5-5.0) g/dL 04/26/18 04/26/18 04/26/18 Range/Units 07:10 07:34 07:34 RBC 3.60 L (3.80-5.40) m/uL Hgb 11.1 L (11.4-16.0) gm/dL Carbon Dioxide 31 H (22-30) mmol/L BUN 42 H (7-17) mg/dL Creatinine 1.92 H (0.52-1.04) mg/dL Glucose 155 H (74-99) mg/dL POC Glucose (mg/dL) 133 H (75-99) mg/dL AST 41 H (14-36) U/L Albumin 3.3 L (3.5-5.0) g/dL Assessment and Plan Assessment: ASSESSMENT Unstable angina Bimalleolar ankle fracture left side Chronic kidney disease stage IV Type 2 diabetes mellitus with hyperglycemia History of coronary artery disease Hypertension Hyperlipidemia Rheumatoid arthritis Bilateral peripheral neuropathy Obstructive sleep apnea Thyroid disorder Plan: Patient to be continued with the current treatment regimen. Anticipating transfer to ECF on Saturday.
[2018-04-26] MEDS: FLUTICASONE 110 MCG INHALER INHALATION SCH ×2 (12:07→19:43)
[2018-04-26 12:12] LABS: Glucose,Whole Blood 156 mg/dL (75-99)
[2018-04-26 16:46] LABS: Glucose,Whole Blood 180 mg/dL (75-99)
[2018-04-26 20:35] LABS: Glucose,Whole Blood 191 mg/dL (75-99)
[2018-04-26] MEDS: MONTELUKAST 10 MG TAB PO SCH (21:05)
[2018-04-26] MEDS: INSULIN DETEMIR 100 UNIT/ML 10 ML VIAL SQ SCH (21:05)
[2018-04-27] MEDS: HYDROcodone/APAP 7.5-325MG 1 EACH TAB PO PRN ×2 (03:46→20:29)
[2018-04-27] MEDS: NITROGLYCERIN OINT 1 INCH/GM PACKET TOPICAL SCH ×4 (04:59→23:35)
[2018-04-27] MEDS: LEVOTHYROXINE 75 MCG TAB PO SCH (05:49)
[2018-04-27] MEDS: LEVOTHYROXINE 100 MCG TAB PO SCH (05:49)
[2018-04-27 07:10] LABS: Glucose,Whole Blood 99 mg/dL (75-99)
[2018-04-27] MEDS: INSULIN ASPART 100 UNIT/ML 1 ML 10 ML VIAL SQ SCH ×7 (07:38→20:30)
[2018-04-27] MEDS: FLUTICASONE 110 MCG INHALER INHALATION SCH ×2 (07:45→20:00)
[2018-04-27] MEDS: HEPARIN SODIUM,PORCINE 5,000 UNIT/ML 1 ML VIAL SQ SCH ×2 (07:48→20:29)
[2018-04-27] MEDS: CHOLECALCIFEROL 1,000 UNIT TAB PO SCH (07:48)
[2018-04-27] MEDS: FUROSEMIDE 20 MG TAB PO SCH (07:49)
[2018-04-27] MEDS: amLODIPine 10 MG TAB PO SCH (07:49)
[2018-04-27] MEDS: SODIUM BICARBONATE TAB 650 MG TAB PO SCH ×3 (07:49→20:29)
[2018-04-27] MEDS: ALLOPURINOL 300 MG TAB PO SCH (07:49)
[2018-04-27] MEDS: FERROUS SULFATE 325 MG TAB PO SCH (07:49)
[2018-04-27] MEDS: CALCIUM ACETATE 667 MG CAP PO SCH ×3 (07:50→17:44)
[2018-04-27] MEDS: DULoxetine HCL 30 MG CAPSULE.DR PO SCH ×2 (07:50→20:30)
[2018-04-27] MEDS: GABAPENTIN 400 MG CAP PO SCH ×3 (07:50→20:29)
[2018-04-27] MEDS: CARVEDILOL 6.25 MG TAB PO SCH ×2 (07:50→17:44)
[2018-04-27] MEDS: ATORVASTATIN 80 MG TAB PO SCH (07:50)
[2018-04-27] MEDS: ARTIFICIAL TEARS-HYPROMELLOSE DROPS 15 ML BTL LEFT EYE PRN (07:53)
[2018-04-27] MEDS: ARTIFICIAL TEARS-HYPROMELLOSE DROPS 15 ML BTL RIGHT EYE SCH ×2 (07:53→20:29)
[2018-04-27 08:04] LABS: Calcium 9.7 mg/dL (8.4-10.2); Potassium 4.9 mmol/L (3.5-5.1)
[2018-04-27 12:22] LABS: Glucose,Whole Blood 169 mg/dL (75-99)
--- NOTE | 2018-04-27 15:36 | P.PN ---
Subjective Progress Note Date: 04/27/18 Principal diagnosis: Unstable angina and bimalleolar ankle fracture Ms. Ho is a 62-year-old female with a past medical history of asthma, coronary artery disease, heart failure, COPD, emphysematous mellitus, morbid obesity, hyperlipidemia, hypertension, rheumatoid arthritis admitted to the hospital with a chief complaint of worsening chest pain. Patient also has left foot fracture and is undergoing treatment for it. On 04/27/18 - Today the patient is sitting up in her bed , appears to be no acute distress. Patient states that she is doing okay and no acute overnight active events reported by nursing staff. Patient denies having any chest pain or difficulty in breathing. No abdominal pain nausea vomiting or diarrhea. She states that she has been dealing with a left ankle fracture for a while. Objective - Vital Signs Vital signs: Vital Signs Temp 98.2 F 04/27/18 15:00 Pulse 70 04/27/18 15:18 Resp 12 04/27/18 15:18 BP 118/56 04/27/18 15:00 Pulse Ox 96 04/27/18 15:00 Intake & Output 04/26/18 04/27/18 04/27/18 19:59 06:59 18:59 Intake Total Balance Intake: Oral Other: Voiding Method Bedside Commode Diaper # Voids 3 - Exam Constitutional General appearance: Present: obese - EENT Eyes: Absent: abnormal pupil - Respiratory Respiratory: bilateral: CTA - Cardiovascular Rhythm: regular Heart sounds: normal: S1, S2 Abnormal Heart Sounds: Absent: S3 Gallop - Gastrointestinal General gastrointestinal: Present: soft. Absent: tenderness - Psychiatric Psychiatric: Present: A&O x's 3 Left lower extremity in a cast - Labs CBC & Chem 7: 04/26/18 07:34 04/27/18 06:48 Labs: Abnormal Lab Results - Last 24 Hours (Table) 04/26/18 04/26/18 04/27/18 Range/Units 16:35 20:23 06:48 Carbon Dioxide 34 H (22-30) mmol/L BUN 42 H (7-17) mg/dL Creatinine 2.06 H (0.52-1.04) mg/dL POC Glucose (mg/dL) 180 H 191 H (75-99) mg/dL 04/27/18 Range/Units 12:09 Carbon Dioxide (22-30) mmol/L BUN (7-17) mg/dL Creatinine (0.52-1.04) mg/dL POC Glucose (mg/dL) 169 H (75-99) mg/dL Assessment and Plan Assessment: ASSESSMENT Unstable angina Bimalleolar ankle fracture left side Chronic kidney disease stage IV Type 2 diabetes mellitus with hyperglycemia History of coronary artery disease Hypertension Hyperlipidemia Rheumatoid arthritis Bilateral peripheral neuropathy Obstructive sleep apnea Thyroid disorder Plan: Patient to be continued with the current treatment regimen. Anticipating transfer to ECF on Saturday.
[2018-04-27 17:39] LABS: Glucose,Whole Blood 181 mg/dL (75-99)
[2018-04-27 20:09] LABS: Glucose,Whole Blood 181 mg/dL (75-99)
[2018-04-27] MEDS: MONTELUKAST 10 MG TAB PO SCH (20:29)
[2018-04-27] MEDS: INSULIN DETEMIR 100 UNIT/ML 10 ML VIAL SQ SCH (20:48)
[2018-04-28] MEDS: NITROGLYCERIN OINT 1 INCH/GM PACKET TOPICAL SCH ×4 (05:51→23:17)
[2018-04-28] MEDS: LEVOTHYROXINE 75 MCG TAB PO SCH (05:54)
[2018-04-28] MEDS: LEVOTHYROXINE 100 MCG TAB PO SCH (05:54)
[2018-04-28 07:02] LABS: Glucose,Whole Blood 112 mg/dL (75-99)
[2018-04-28 07:37] VITALS: RESP 16
--- NOTE | 2018-04-28 07:38 | P.DS ---
Providers Date of admission: 04/24/18 09:24 Attending physician: Jhonathan Baca Consults: 04/22/18 17:11 Consult Physician Urgent Consulting Provider: [facility] Consult Reason/Comments: Chest pain Do you want consulting provider notified?: Yes 04/24/18 08:17 Consult Physician Routine Consulting Provider: Jarret Mckeon Consult Reason/Comments: left ankle fracture Do you want consulting provider notified?: Yes Primary care physician: Jhonathan Baca - Discharge Diagnosis(es) (1) Unstable angina pectoris Current Visit: Yes Status: Acute (2) Bimalleolar ankle fracture Current Visit: No Status: Acute (3) Chronic renal failure Current Visit: No Status: Acute (4) Hyperglycemia due to type 2 diabetes mellitus Current Visit: No Status: Acute Hospital Course: This is a discharge/transfer summary on a 62-year-old white female with known history of diabetes hypertension who had a bimalleolar ankle fracture. The patient has arranged for treatment on Saturday with a doctor who is covering for Dr. Miguel. She stayed here this weekend secondary to being placed in a assisted. She was transferred today once a bed is available and then transferred from there to [facility] for short stay after her surgical repair of the bimalleolar fracture. The patient was stable but not weightbearing. The patient is now discharged in stable but guarded condition. We will keep her on heparin until the morning of the surgery so that she can discontinue her Plavix to be restarted postoperatively. The patient is discharged in stable condition to follow-up with me in approximately 2 weeks. Plan - Discharge Summary Discharge Rx Participant: Yes New Discharge Prescriptions: New RX: Artificial Tears-Hypromellose [Artificial Tear Drops] 2 drops LEFT EYE DAILY PRN bottle PRN Reason: Dry Eye(S) RX: Artificial Tears-Hypromellose [Artificial Tear Drops] 2 drops RIGHT EYE BID bottle RX: Heparin Sodium,Porcine [Heparin Sodium] 5,000 unit SQ Q12HR vial RX: Levothyroxine Sodium [Synthroid] 75 mcg PO DAILY@0630 tab RX: Nitroglycerin Sl Tabs [Nitrostat] 0.4 mg SUBLINGUAL Q5M PRN tab PRN Reason: Chest Pain Continue RX: amLODIPine BESYLATE [Norvasc] 10 mg PO DAILY RX: Carvedilol [Coreg] 6.25 mg PO BID RX: Furosemide [Lasix] 20 mg PO DAILY RX: Sodium Bicarbonate 325 mg PO TID RX: Cholecalciferol (Vitamin D3) [Vitamin D3] 2,000 unit PO DAILY RX: Albuterol Inhaler [Ventolin Hfa Inhaler] 1 - 2 puff INHALATION RT-Q6H PRN PRN Reason: Shortness Of Breath RX: Insulin Aspart [NovoLOG Flexpen] 5 unit SQ AC-TID RX: Calcium Acetate [PhosLo] 667 mg PO TID RX: Insulin Aspart [NovoLOG Flexpen] See Protocol SQ TID PRN PRN Reason: Blood Sugar - High RX: Nitroglycerin Sl Tabs [Nitrostat] 0.4 mg SUBLINGUAL Q5M PRN PRN Reason: Chest Pain RX: Montelukast [Singulair] 10 mg PO HS RX: Polyethylene Glycol 3350 [Miralax] 17 gm PO DAILY PRN PRN Reason: Constipation RX: Levothyroxine Sodium [Synthroid] 175 mcg PO DAILY RX: Glucagon Emergency Kit 1 mg IM ONCE PRN PRN Reason: Blood Sugar - Low RX: Gabapentin [Neurontin] 400 mg PO TID RX: Fluticasone Propionate [Flovent Hfa 110mcg] 2 puff INHALATION RT-BID RX: Ferrous Sulfate [Iron (65 MG Elemental)] 325 mg PO DAILY RX: DULoxetine HCL [Cymbalta] 30 mg PO BID RX: Albuterol Nebulized (Conc) [Ventolin Nebulized (Conc)] 2.5 mg INHALATION RT-QID PRN PRN Reason: Shortness Of Breath RX: Atorvastatin [Lipitor] 40 mg PO DAILY RX: Allopurinol [Zyloprim] 300 mg PO DAILY RX: Tofacitinib Citrate [Xeljanz Xr] 11 mg PO DAILY RX: Aspirin 81 mg PO DAILY RX: Insulin Degludec [Tresiba Flextouch U-200] 40 unit SQ DAILY RX: Ipratropium-Albuterol Nebulize [Duoneb 0.5 mg-3 mg/3 ml Soln] 3 ml INHALATION RT-Q6H PRN PRN Reason: Shortness Of Breath Or Wheezing RX: HYDROcodone/APAP 7.5-325MG [Tolley 7.5-325] 1 tab PO Q4-6H PRN #120 tab PRN Reason: Pain Discontinued RX: Clopidogrel [Plavix] 75 mg PO DAILY Discharge Medication List RX: Carvedilol [Coreg] 6.25 mg PO BID 02/23/15 [History] RX: Furosemide [Lasix] 20 mg PO DAILY 02/23/15 [History] RX: amLODIPine BESYLATE [Norvasc] 10 mg PO DAILY 02/23/15 [History] RX: Sodium Bicarbonate 325 mg PO TID 08/06/16 [History] RX: Albuterol Inhaler [Ventolin Hfa Inhaler] 1 - 2 puff INHALATION RT-Q6H PRN [History] RX: Albuterol Nebulized (Conc) [Ventolin Nebulized (Conc)] 2.5 mg INHALATION RT- QID PRN 11/21/17 [History] RX: Allopurinol [Zyloprim] 300 mg PO DAILY 11/21/17 [History] RX: Atorvastatin [Lipitor] 40 mg PO DAILY 11/21/17 [History] RX: Calcium Acetate [PhosLo] 667 mg PO TID 11/21/17 [History] RX: Cholecalciferol (Vitamin D3) [Vitamin D3] 2,000 unit PO DAILY 11/21/17 [ History] RX: DULoxetine HCL [Cymbalta] 30 mg PO BID 11/21/17 [History] RX: Ferrous Sulfate [Iron (65 MG Elemental)] 325 mg PO DAILY 11/21/17 [History] RX: Fluticasone Propionate [Flovent Hfa 110mcg] 2 puff INHALATION RT-BID [History] RX: Gabapentin [Neurontin] 400 mg PO TID 11/21/17 [History] RX: Glucagon Emergency Kit 1 mg IM ONCE PRN 11/21/17 [History] RX: Insulin Aspart [NovoLOG Flexpen] 5 unit SQ AC-TID 11/21/17 [History] RX: Insulin Aspart [NovoLOG Flexpen] See Protocol SQ TID PRN 11/21/17 [History] RX: Levothyroxine Sodium [Synthroid] 175 mcg PO DAILY 11/21/17 [History] RX: Montelukast [Singulair] 10 mg PO HS 11/21/17 [History] RX: Nitroglycerin Sl Tabs [Nitrostat] 0.4 mg SUBLINGUAL Q5M PRN 11/21/17 [ History] RX: Polyethylene Glycol 3350 [Miralax] 17 gm PO DAILY PRN 11/21/17 [History] RX: Tofacitinib Citrate [Xeljanz Xr] 11 mg PO DAILY 11/21/17 [History] RX: Aspirin 81 mg PO DAILY 02/07/18 [History] RX: Insulin Degludec [Tresiba Flextouch U-200] 40 unit SQ DAILY 02/07/18 [ History] RX: Ipratropium-Albuterol Nebulize [Duoneb 0.5 mg-3 mg/3 ml Soln] 3 ml INHALATION RT-Q6H PRN 02/07/18 [History] RX: Artificial Tears-Hypromellose [Artificial Tear Drops] 2 drops LEFT EYE DAILY PRN bottle 04/28/18 [Rx] RX: Artificial Tears-Hypromellose [Artificial Tear Drops] 2 drops RIGHT EYE BID bottle 04/28/18 [Rx] RX: HYDROcodone/APAP 7.5-325MG [Tolley 7.5-325] 1 tab PO Q4-6H PRN #120 tab 04/28 [Rx] RX: Heparin Sodium,Porcine [Heparin Sodium] 5,000 unit SQ Q12HR vial 04/28/18 [ Rx] RX: Levothyroxine Sodium [Synthroid] 75 mcg PO DAILY@0630 tab 04/28/18 [Rx] RX: Nitroglycerin Sl Tabs [Nitrostat] 0.4 mg SUBLINGUAL Q5M PRN tab 04/28/18 [ Rx] Follow up Appointment(s)/Referral(s): Jhonathan Baca MD [Primary Care Provider] - 2 Weeks (Make appointment to follow up with Dr. Baca after surgical procedure) Activity/Diet/Wound Care/Special Instructions: Follow up with Orthopedic Surgeon on Saturday as scheduled. Discharge Disposition: TRANSFER TO SNF/ECF
[2018-04-28] MEDS: CALCIUM ACETATE 667 MG CAP PO SCH ×3 (07:52→17:26)
[2018-04-28] MEDS: SODIUM BICARBONATE TAB 650 MG TAB PO SCH ×3 (07:53→20:09)
[2018-04-28] MEDS: FUROSEMIDE 20 MG TAB PO SCH (07:54)
[2018-04-28] MEDS: CARVEDILOL 6.25 MG TAB PO SCH ×2 (07:54→17:26)
[2018-04-28] MEDS: CHOLECALCIFEROL 1,000 UNIT TAB PO SCH (07:54)
[2018-04-28] MEDS: ALLOPURINOL 300 MG TAB PO SCH (07:54)
[2018-04-28] MEDS: FLUTICASONE 110 MCG INHALER INHALATION SCH ×2 (07:54→20:20)
[2018-04-28] MEDS: ATORVASTATIN 80 MG TAB PO SCH (07:54)
[2018-04-28] MEDS: DULoxetine HCL 30 MG CAPSULE.DR PO SCH ×2 (07:54→20:08)
[2018-04-28] MEDS: FERROUS SULFATE 325 MG TAB PO SCH (07:54)
[2018-04-28] MEDS: amLODIPine 10 MG TAB PO SCH (07:54)
[2018-04-28] MEDS: HEPARIN SODIUM,PORCINE 5,000 UNIT/ML 1 ML VIAL SQ SCH ×2 (07:55→20:08)
[2018-04-28] MEDS: INSULIN ASPART 100 UNIT/ML 1 ML 10 ML VIAL SQ SCH ×7 (07:55→20:45)
[2018-04-28] MEDS: GABAPENTIN 400 MG CAP PO SCH ×3 (07:55→20:09)
[2018-04-28] MEDS: ARTIFICIAL TEARS-HYPROMELLOSE DROPS 15 ML BTL RIGHT EYE SCH ×2 (07:57→20:08)
[2018-04-28] MEDS: HYDROcodone/APAP 7.5-325MG 1 EACH TAB PO PRN ×2 (07:58→17:26)
[2018-04-28 11:51] LABS: Glucose,Whole Blood 163 mg/dL (75-99)
[2018-04-28 17:30] LABS: Glucose,Whole Blood 156 mg/dL (75-99)
[2018-04-28] MEDS: MONTELUKAST 10 MG TAB PO SCH (20:08)
[2018-04-28 20:28] LABS: Glucose,Whole Blood 365 mg/dL (75-99)
[2018-04-28] MEDS: INSULIN DETEMIR 100 UNIT/ML 10 ML VIAL SQ SCH (20:45)
[2018-04-29] MEDS: NITROGLYCERIN OINT 1 INCH/GM PACKET TOPICAL SCH ×2 (06:14→07:05)
[2018-04-29] MEDS: CARVEDILOL 6.25 MG TAB PO SCH (07:02)
[2018-04-29] MEDS: CALCIUM ACETATE 667 MG CAP PO SCH ×2 (07:02→07:09)
[2018-04-29] MEDS: amLODIPine 10 MG TAB PO SCH (07:03)
[2018-04-29] MEDS: CHOLECALCIFEROL 1,000 UNIT TAB PO SCH (07:03)
[2018-04-29] MEDS: ATORVASTATIN 80 MG TAB PO SCH (07:03)
[2018-04-29] MEDS: ARTIFICIAL TEARS-HYPROMELLOSE DROPS 15 ML BTL RIGHT EYE SCH ×2 (07:03→07:15)
[2018-04-29] MEDS: ALLOPURINOL 300 MG TAB PO SCH (07:03)
[2018-04-29] MEDS: FUROSEMIDE 20 MG TAB PO SCH (07:04)
[2018-04-29] MEDS: SODIUM BICARBONATE TAB 650 MG TAB PO SCH (07:04)
[2018-04-29] MEDS: HEPARIN SODIUM,PORCINE 5,000 UNIT/ML 1 ML VIAL SQ SCH (07:04)
[2018-04-29] MEDS: FERROUS SULFATE 325 MG TAB PO SCH (07:04)
[2018-04-29] MEDS: DULoxetine HCL 30 MG CAPSULE.DR PO SCH (07:04)
[2018-04-29] MEDS: INSULIN ASPART 100 UNIT/ML 1 ML 10 ML VIAL SQ SCH ×2 (07:05)
[2018-04-29] MEDS: LEVOTHYROXINE 75 MCG TAB PO SCH (07:06)
[2018-04-29] MEDS: LEVOTHYROXINE 100 MCG TAB PO SCH (07:06)
[2018-04-29 07:08] LABS: Glucose,Whole Blood 130 mg/dL (75-99)
[2018-04-29] MEDS: GABAPENTIN 400 MG CAP PO SCH (07:09)
[2018-04-29 07:28] VITALS: BP 150/63; PULSE 69; TEMP 98.7
[2018-04-29] MEDS: FLUTICASONE 110 MCG INHALER INHALATION SCH (08:30)
== END 2018-04-29 10:08 | DRG 303 ==
LOC: EC 14:56 → 1SOBS 17:19 → INTOOBSV 04-23 17:38 → OBSVTOIN 04-23 17:38 → 4SSUR 04-24 18:43
PROVIDERS: ADMIT Family Medicine; ATTEND Family Medicine
DX: I25.110 Atherosclerotic heart disease of native coronary artery with unstable angina pectoris (principal); N18.4 Chronic kidney disease, stage 4 (severe); E11.22 Type 2 diabetes mellitus with diabetic chronic kidney disease; E11.42 Type 2 diabetes mellitus with diabetic polyneuropathy; E11.65 Type 2 diabetes mellitus with hyperglycemia; E78.00 Pure hypercholesterolemia, unspecified; E78.5 Hyperlipidemia, unspecified; E89.0 Postprocedural hypothyroidism; G47.33 Obstructive sleep apnea (adult) (pediatric); H54.8 Legal blindness, as defined in USA; I12.9 Hypertensive chronic kidney disease with stage 1 through stage 4 chronic kidney disease, or unspecified chronic kidney disease; J44.9 Chronic obstructive pulmonary disease, unspecified; S82.842A Displaced bimalleolar fracture of left lower leg, initial encounter for closed fracture; W19.XXXA Unspecified fall, initial encounter; F32.9 Major depressive disorder, single episode, unspecified; I25.2 Old myocardial infarction; F41.9 Anxiety disorder, unspecified; K57.90 Diverticulosis of intestine, part unspecified, without perforation or abscess without bleeding; J45.909 Unspecified asthma, uncomplicated; M06.9 Rheumatoid arthritis, unspecified; Z79.890 Hormone replacement therapy; Z79.02 Long term (current) use of antithrombotics/antiplatelets; Z90.49 Acquired absence of other specified parts of digestive tract; Z82.0 Family history of epilepsy and other diseases of the nervous system; Z79.82 Long term (current) use of aspirin; Z79.51 Long term (current) use of inhaled steroids; Z79.899 Other long term (current) drug therapy; Z79.4 Long term (current) use of insulin; Z82.5 Family history of asthma and other chronic lower respiratory diseases; Z87.891 Personal history of nicotine dependence; Z98.61 Coronary angioplasty status; Z85.850 Personal history of malignant neoplasm of thyroid
CPT/HCPCS: 36415; 71046; 78582; 80048; 80053; 80061; 82550; 82553; 83036; 83735; 84484; 85025; 85027; 85379; 85610; 85730; 93005; 93306; 94640; 96365; 96366; 96376; 99291

== ENCOUNTER 2018-08-19 11:10 | Inpatient (IN) | payer MEDICARE, OTHER ==
[2018-08-19] MEDS ORDERED: MORPHINE SULFATE 4 MG/ML SYRINGE IV STA (11:23)
[2018-08-19] MEDS ORDERED: SODIUM CHLORIDE 0.9% 1,000 ML IV STA (11:23)
[2018-08-19] MEDS ORDERED: PANTOPRAZOLE 40 MG/10 ML VIAL IVP STA (11:23)
[2018-08-19 12:00] LABS: Anisocytosis Slight; Basophils % (A) 0 %; Eosinophils # (A) 0.1 k/uL (0-0.7); Eosinophils % (A) 2 %; HCT 24.1 % (34.0-46.0); HGB 7.6 gm/dL (11.4-16.0); Hypochromasia Slight; Lymphocytes # (A) 1.1 k/uL (1.0-4.8); Lymphocytes % (A) 14 %; MCH 29.5 pg (25.0-35.0); MCHC 31.6 g/dL (31.0-37.0); MCV 93.3 fL (80.0-100.0); Mean Platelet Volume 7.5; Monocytes # (A) 0.5 k/uL (0-1.0); Monocytes % (A) 7 %; Neutrophils # (A) 5.7 k/uL (1.3-7.7); Neutrophils % (A) 75 %; Platelet Count 245 k/uL (150-450); RBC 2.58 m/uL (3.80-5.40); RDW 16.1 % (11.5-15.5); WBC 7.6 k/uL (3.8-10.6)
--- NOTE | 2018-08-19 12:03 | ED ---
Abdominal Pain HPI - General Chief Complaint: Abdominal Pain Stated Complaint: abd pain Time Seen by Provider: 08/19/18 11:17 Source: patient, EMS, RN notes reviewed, old records reviewed Mode of arrival: EMS Limitations: no limitations - History of Present Illness Initial Comments: This is a 63-year-old female the ER for evaluation. This patient presents today for evaluation regarding abdominal pain weakness dehydration. Patient has epigastric abdominal pain. She feels weak persistent bruising. No recent travel history no sick contacts. No fevers no cough or congestion. MD Complaint: abdominal pain, flank pain -: unknown Location: diffuse, periumbilical, epigastric Radiation: none Migration to: epigastric Severity: moderate Severity scale (1-10): 7 Quality: cramping, aching Consistency: constant Improves With: bowel movement Worsens With: bowel movement Associated Symptoms: nausea Treatments Prior to Arrival: other - Related Data Home Medications Medication Instructions Recorded Confirmed Carvedilol [Coreg] 6.25 mg PO BID@0800,1700 02/23/15 04/22/18 Sodium Bicarbonate 325 mg PO TID@0800,1400,199908/06/16 08/19/18 Atorvastatin [Lipitor] 40 mg PO HS 11/21/17 08/19/18 Calcium Acetate [PhosLo] 667 mg PO TID@0800,1400,199911/21/17 08/19/18 DULoxetine HCL [Cymbalta] 30 mg PO BID@0800,1700 11/21/17 08/19/18 Ferrous Sulfate [Iron (65 MG 325 mg PO DAILY@1700 11/21/17 08/19/18 Elemental)] Fluticasone Propionate [Flovent 2 puff INHALATION RT-BID 11/21/17 08/19/18 Hfa 110mcg] Gabapentin [Neurontin] 400 mg PO TID@0800,1400,199911/21/17 08/19/18 Insulin Aspart [NovoLOG Flexpen] 5 unit SQ AC-TID 11/21/17 08/19/18 Levothyroxine Sodium [Synthroid] 175 mcg PO DAILY@0600 11/21/17 08/19/18 Montelukast [Singulair] 10 mg PO HS 11/21/17 08/19/18 Polyethylene Glycol 3350 [Miralax] 17 gm PO DAILY 11/21/17 08/19/18 Tofacitinib Citrate [Xeljanz Xr] 11 mg PO DAILY 11/21/17 08/19/18 Acetaminophen [Tylenol] 650 mg PO Q4H PRN 08/19/18 08/19/18 Albuterol Nebulized [Ventolin 2.5 mg INHALATION RT-QID PRN 08/19/18 08/19/18 Nebulized] Bisacodyl [Dulcolax] 10 mg RECTAL DAILY PRN 08/19/18 08/19/18 Calcium Carbonate [Tums] 1,000 mg PO TID PRN 08/19/18 08/19/18 Dextran 70/Hypromellose [Genteal 1 drop BOTH EYES QID PRN 08/19/18 08/19/18 Tears 0.1%-0.3% Drop] Furosemide [Lasix] 40 mg PO BID@0800,1700 08/19/18 08/19/18 Insulin Degludec [Tresiba] 37 units SQ HS 08/19/18 08/19/18 Levofloxacin 250 mg PO DAILY 08/19/18 08/19/18 Mag Hydrox/Al Hydrox/Simeth 30 ml PO DAILY PRN 08/19/18 08/19/18 [Maalox] Na Phos,M-B/Na Phos,Di-Ba [Fleet 133 ml RECTAL DAILY PRN 08/19/18 08/19/18 Adult] Pantoprazole Sodium [Protonix] 40 mg PO AC-BRKFST 08/19/18 08/19/18 Sennosides [Senna] 8.6 mg PO BID@0800,1700 08/19/18 08/19/18 guaiFENesin [Mucinex] 600 mg PO BID@0800,2100 08/19/18 08/19/18 oxyCODONE HCL [OxyIR] 5 mg PO Q4H PRN 08/19/18 08/19/18 Allergies Allergy/AdvReac Type Severity Reaction Status Date / Time No Known Allergies Allergy Verified 08/19/18 11:55 Review of Systems ROS Statement: Those systems with pertinent positive or pertinent negative responses have been documented in the HPI. ROS Other: All systems not noted in ROS Statement are negative. Past Medical History Past Medical History: Asthma, Coronary Artery Disease (CAD), Cancer, Heart Failure, COPD, Diabetes Mellitus, GI Bleed, Hyperlipidemia, Hypertension, Myocardial Infarction ([place]), Renal Disease, Rheumatoid Arthritis ([place]), Sleep Apnea/CPAP/BIPAP, Syncope, Thyroid Disorder Additional Past Medical History / Comment(s): IDDM type II poorly controlled, bilateral peripheral neuropathy bilateral hands/feet, CKD stage IV, UTIs, legally blind bilaterally-sees minimally, thyroid cancer with surgery, goiter, hashimotos, diverticular disease, 2013 upper and lower GI bleeds with blood loss anemia, gout, R humeral fracture with surgery, incontence of bowel and occasionally bladder. "lt ankle broke 3 places-casted, no wt bearing uses w/c"( pt stated she has had 15 falls in past 2 months) Last Myocardial Infarction Date:: 2009 History of Any Multi-Drug Resistant Organisms: None Reported Past Surgical History: Adenoidectomy, Back Surgery, Cholecystectomy, Heart Catheterization With Stent, Tonsillectomy Additional Past Surgical History / Comment(s): PCI with stent 2009, low back surgery, total R shoulder and total R knee arthroplasties, bilateral hand trigger finger surgeries, EGD, colonoscopy, L eye laser eye surgery for bleed, thyroidectomy. Past Anesthesia/Blood Transfusion Reactions: No Reported Reaction Additional Past Anesthesia/Blood Transfusion Reaction / Comment(s): Pt has received blood in past without reaction. Date of Last Stent Placement:: 2009 Past Psychological History: Anxiety, Depression Smoking Status: Never smoker Past Alcohol Use History: None Reported Past Drug Use History: None Reported - Past Family History Mother Family Medical History: Asthma Additional Family Medical History / Comment(s): epilepsy Father Additional Family Medical History / Comment(s): many heart problems General Exam Limitations: no limitations General appearance: alert, in no apparent distress Head exam: Present: atraumatic, normocephalic, normal inspection Eye exam: Present: normal appearance, PERRL, EOMI. Absent: scleral icterus, conjunctival injection, periorbital swelling ENT exam: Present: normal exam, mucous membranes moist Neck exam: Present: normal inspection. Absent: tenderness, meningismus, lymphadenopathy Respiratory exam: Present: respiratory distress, wheezes, accessory muscle use, decreased breath sounds, prolonged expiratory. Absent: rales, rhonchi, stridor Cardiovascular Exam: Present: regular rate, normal rhythm, normal heart sounds. Absent: systolic murmur, diastolic murmur, rubs, gallop, clicks GI/Abdominal exam: Present: soft, normal bowel sounds. Absent: distended, tenderness, guarding, rebound, rigid Extremities exam: Present: normal inspection, full ROM, normal capillary refill. Absent: tenderness, pedal edema, joint swelling, calf tenderness Back exam: Present: normal inspection Neurological exam: Present: alert, oriented X3, CN II-XII intact Psychiatric exam: Present: normal affect, normal mood Skin exam: Present: warm, dry, intact, normal color. Absent: rash Course Vital Signs 08/19/18 08/19/18 08/19/18 11:15 11:31 12:00 Temperature 97.2 F L Pulse Rate 82 76 77 Respiratory 82 H 16 16 Rate Blood Pressure 140/70 140/70 137/66 O2 Sat by Pulse 88 L 96 97 Oximetry 08/19/18 08/19/18 08/19/18 12:30 13:00 13:40 Temperature Pulse Rate 78 80 68 Respiratory 18 17 Rate Blood Pressure 149/79 133/76 O2 Sat by Pulse 98 99 Oximetry 08/19/18 13:57 Temperature Pulse Rate 70 Respiratory Rate Blood Pressure O2 Sat by Pulse Oximetry - Reevaluation(s) Reevaluation #1: 08/19/18 14:35 Neck record reviewed Reevaluation #2: 08/19/18 14:35 Patient does have low hemoglobin with symptomatic anemia - Consultations Consultation #1: Dr. East regarding admission, he is agreeable Medical Decision Making - Medical Decision Making 63 female the ER for evaluation. Patient resents today for evaluation regards to weakness and abdominal pain. She found to be anemic with acute on chronic renal failure, dehydration. Patient will be admitted for symptom management. Monitoring of hemoglobin. And monitoring of CHF - Lab Data Result diagrams: 08/19/18 11:27 08/19/18 11:27 Lab Results 08/19/18 08/19/18 08/19/18 Range/Units 11:27 11: 11:27 WBC 7.6 (3.8-10.6) k/uL RBC 2.58 L (3.80-5.40) m/uL Hgb 7.6 L (11.4-16.0) gm/dL Hct 24.1 L (34.0-46.0) % MCV 93.3 (80.0-100.0) fL MCH 29.5 (25.0-35.0) pg MCHC 31.6 (31.0-37.0) g/dL RDW 16.1 H (11.5-15.5) % Plt Count 245 (150-450) k/uL Neutrophils % 75 % Lymphocytes % 14 % Monocytes % 7 % Eosinophils % 2 % Basophils % 0 % Neutrophils # 5.7 (1.3-7.7) k/uL Lymphocytes # 1.1 (1.0-4.8) k/uL Monocytes # 0.5 (0-1.0) k/uL Eosinophils # 0.1 (0-0.7) k/uL Basophils # 0.0 (0-0.2) k/uL Hypochromasia Slight Anisocytosis Slight PT (9.0-12.0) sec INR (<1.2) APTT (22.0-30.0) sec Sodium 137 (137-145) mmol/L Potassium 4.3 (3.5-5.1) mmol/L Chloride 96 L (98-107) mmol/L Carbon Dioxide 36 H (22-30) mmol/L Anion Gap 5 mmol/L BUN 63 H (7-17) mg/dL Creatinine 2.50 H (0.52-1.04) mg/dL Est GFR (CKD-EPI)AfAm 23 (>60 ml/min/1.73 sqM) Est GFR (CKD-EPI)NonAf 20 (>60 ml/min/1.73 sqM) Glucose 161 H (74-99) mg/dL Plasma Lactic Acid [place] 1.2 (0.7-2.0) mmol/L Calcium 9.1 (8.4-10.2) mg/dL Phosphorus 4.0 (2.5-4.5) mg/dL Magnesium 2.5 H (1.6-2.3) mg/dL Total Bilirubin 1.0 (0.2-1.3) mg/dL AST 34 (14-36) U/L ALT 40 (9-52) U/L Alkaline Phosphatase 68 (38-126) U/L Total Protein 6.2 L (6.3-8.2) g/dL Albumin 2.9 L (3.5-5.0) g/dL Amylase 39 (30-110) U/L Lipase 95 (23-300) U/L Urine Color Urine Appearance (Clear) Urine pH (5.0-8.0) Ur Specific [place] (1.001-1.035) Urine Protein (Negative) Urine Glucose (UA) (Negative) Urine Ketones (Negative) Urine Blood (Negative) Urine Nitrite (Negative) Urine Bilirubin (Negative) Urine Urobilinogen (<2.0) mg/dL Ur Leukocyte Esterase (Negative) 08/19/18 08/19/18 Range/Units 11:27 12:30 WBC (3.8-10.6) k/uL RBC (3.80-5.40) m/uL Hgb (11.4-16.0) gm/dL Hct (34.0-46.0) % MCV (80.0-100.0) fL MCH (25.0-35.0) pg MCHC (31.0-37.0) g/dL RDW (11.5-15.5) % Plt Count (150-450) k/uL Neutrophils % % Lymphocytes % % Monocytes % % Eosinophils % % Basophils % % Neutrophils # (1.3-7.7) k/uL Lymphocytes # (1.0-4.8) k/uL Monocytes # (0-1.0) k/uL Eosinophils # (0-0.7) k/uL Basophils # (0-0.2) k/uL Hypochromasia Anisocytosis PT 10.2 (9.0-12.0) sec INR 0.9 (<1.2) APTT 21.7 L (22.0-30.0) sec Sodium (137-145) mmol/L Potassium (3.5-5.1) mmol/L Chloride (98-107) mmol/L Carbon Dioxide (22-30) mmol/L Anion Gap mmol/L BUN (7-17) mg/dL Creatinine (0.52-1.04) mg/dL Est GFR (CKD-EPI)AfAm (>60 ml/min/1.73 sqM) Est GFR (CKD-EPI)NonAf (>60 ml/min/1.73 sqM) Glucose (74-99) mg/dL Plasma Lactic Acid [place] (0.7-2.0) mmol/L Calcium (8.4-10.2) mg/dL Phosphorus (2.5-4.5) mg/dL Magnesium (1.6-2.3) mg/dL Total Bilirubin (0.2-1.3) mg/dL AST (14-36) U/L ALT (9-52) U/L Alkaline Phosphatase (38-126) U/L Total Protein (6.3-8.2) g/dL Albumin (3.5-5.0) g/dL Amylase (30-110) U/L Lipase (23-300) U/L Urine Color Light Yellow Urine Appearance Clear (Clear) Urine pH 7.0 (5.0-8.0) Ur Specific [place] 1.004 (1.001-1.035) Urine Protein Negative (Negative) Urine Glucose (UA) Negative (Negative) Urine Ketones Negative (Negative) Urine Blood Negative (Negative) Urine Nitrite Negative (Negative) Urine Bilirubin Negative (Negative) Urine Urobilinogen <2.0 (<2.0) mg/dL Ur Leukocyte Esterase Negative (Negative) - EKG Data -: EKG Interpreted by Hi - Radiology Data Radiology results: report reviewed (Chest x-rays positive for CHF), image reviewed Disposition Clinical Impression: Chronic renal failure, ARF (acute renal failure), CHF (congestive heart failure ), Anemia, Dehydration Disposition: ADMITTED IP TO THIS HOSP Condition: Fair Is patient prescribed a controlled substance at d/c from ED?: No Referrals: Cristiano East MD [Primary Care Provider] - 1-2 days
[2018-08-19 12:08] LABS: Albumin 2.9 g/dL (3.5-5.0); Calcium 9.1 mg/dL (8.4-10.2); Magnesium 2.5 mg/dL (1.6-2.3); Potassium 4.3 mmol/L (3.5-5.1); Total Protein 6.2 g/dL (6.3-8.2)
[2018-08-19] MEDS ORDERED: methylPREDNISolone SOD SUCCI 125 MG/2 ML VIAL IV STA (13:07)
[2018-08-19] MEDS ORDERED: IPRATROPIUM-ALBUTEROL 3 ML NEB INHALATION STA (13:07)
[2018-08-19 13:17] LABS: Appearance,Urine Clear (Clear); Bilirubin,Urine Negative (Negative); Blood,Urine Negative (Negative); Color,Urine Light Yellow; Glucose,Urine (UA) Negative (Negative); Ketones,Urine Negative (Negative); Leukocyte Esterase,Urine Negative (Negative); Nitrite,Urine Negative (Negative); Protein,Urine Negative (Negative); Specific Gravity,Urine 1.004 (1.001-1.035); Urobilinogen,Urine <2.0 mg/dL (<2.0)
[2018-08-19 13:39] LABS: INR 0.9 (<1.2); Prothrombin Time 10.2 sec (9.0-12.0)
[2018-08-19 13:41] LABS: Partial Thromboplastin Time 21.7 sec (22.0-30.0)
--- NOTE | 2018-08-19 14:07 | XR ---
EXAMINATION TYPE: XR abdomen acute w cxr DATE OF EXAM: 08/19/2018 COMPARISON: Prior chest x-ray 04/22/2018 HISTORY: Pain TECHNIQUE: Supine, upright, and frontal chest views of the abdomen and chest are obtained on 4 image s. FINDINGS: The chest shows bilateral interstitial findings, rounded areas of increased attenuation pr esent in the perihilar locations, or pneumothorax, possible left pleural effusion, there is blunting of the left costophrenic angle. Heart is enlarged. Postop change noted to the right shoulder, lower l umbar spine, there are surgical clips in the right upper quadrant. Vascular calcifications are noted. Possible injection granuloma. There is no evidence for pneumoperitoneum. The bowel gas pattern is unremarkable as there is air throughout nondilated small and large bowel. No sizeable air fluid levels. No mass effects are seen. No unusual calcifications. IMPRESSION: Correlate for congestive heart failure.
[2018-08-19] MEDS ORDERED: SODIUM CHLORIDE 0.9% 1,000 ML IV SCH (14:45)
[2018-08-19] MEDS: FUROSEMIDE 10 MG/ML 4 ML VIAL IV SCH (15:31)
--- NOTE | 2018-08-19 15:36 | CT ---
EXAMINATION TYPE: CT abdomen pelvis wo con DATE OF EXAM: 08/19/2018 COMPARISON: Plain film same date HISTORY: Generalized pain CT DLP: 1382.4 mGycm Automated exposure control for dose reduction was used. TECHNIQUE: Helical acquisition of images from the lung bases through the pelvis. FINDINGS: Perihilar airspace disease is noted as on plain film. The heart is enlarged. There are mitr al annular calcifications. Lack of intravenous contrast may compromise sensitivity. Calcification pre sent within the left ventricle is indeterminate LUNG BASES: Small bibasilar pleural effusions and associated atelectasis noted, correlate to exclude pneumonia. AORTA: No significant abnormality is appreciated. There are dense vascular calcifications present po ssibly due to underlying renal failure LIVER/GB: Patient is post cholecystectomy. Liver is unremarkable as seen. PANCREAS: No significant abnormality is seen. SPLEEN: No significant abnormality is seen. ADRENALS: No significant abnormality is seen. KIDNEYS: No significant abnormality is seen. There is increased density in the subcutaneous fat over the anterior abdomen suggesting possible anas arca REPRODUCTIVE ORGANS: Somewhat atrophic uterus. URINARY BLADDER: No significant abnormality is seen. BOWEL: No significant abnormality is seen. Colonic interposition noted anterior to the liver at its inferior margin FREE AIR: No Free Air is visible. ASCITES: None visible. PELVIC ADENOPATHY: None visualized. RETROPERITONEAL ADENOPATHY: No Retroperitoneal Adenopathy visible. OSSEOUS STRUCTURES: Postop changes are noted at the lower lumbar spine status post posterior fusion L4-5, there is vacuum phenomenon with intervertebral spacing device. Laminectomies are noted. There i s a scoliosis present. Multilevel spondylosis is present with facet arthropathy changes. IMPRESSION: FINDINGS COMPATIBLE WITH CONGESTIVE HEART FAILURE NOTED ON PLAIN FILM SAME DATE EARLIER TIME. NONC ONTRAST EXAM. CARDIOMEGALY, PLEURAL EFFUSIONS. ADDITIONAL FINDINGS ABOVE.
[2018-08-19 16:12] VITALS: BMI 51.0
[2018-08-19 20:19] LABS: Glucose,Whole Blood 278 mg/dL (75-99)
[2018-08-19] MEDS ORDERED: BISACODYL 10 MG SUPP RECTAL PRN (22:44)
[2018-08-19] MEDS ORDERED: MAG HYDROX/AL HYDROX/SIMETH 30 ML CUP PO PRN (22:44)
[2018-08-19] MEDS ORDERED: ALBUTEROL NEBULIZED 2.5 MG/3 ML INHALATION PRN (22:44)
[2018-08-19] MEDS ORDERED: ACETAMINOPHEN TAB 325 MG TAB PO PRN (22:44)
[2018-08-19] MEDS ORDERED: NA PHOS,M-B/NA PHOS,DI-BA 133 ML ENEMA RECTAL PRN (22:44)
[2018-08-19] MEDS ORDERED: ARTIFICIAL TEARS-HYPROMELLOSE DROPS 15 ML BTL BOTH EYES PRN (22:44)
[2018-08-20] MEDS: LEVOTHYROXINE 50 MCG TAB PO SCH (05:55)
[2018-08-20] MEDS: FUROSEMIDE 10 MG/ML 4 ML VIAL IV SCH ×2 (05:57→17:47)
[2018-08-20 06:58] LABS: Glucose,Whole Blood 275 mg/dL (75-99)
[2018-08-20] MEDS: FLUTICASONE 110 MCG INHALER INHALATION SCH ×2 (07:49→20:16)
[2018-08-20] MEDS ORDERED: FUROSEMIDE 40 MG TAB PO SCH (08:00)
[2018-08-20] MEDS: CALCIUM CARBONATE 500 MG CHEWABLE PO PRN ×3 (09:00→19:57)
[2018-08-20] MEDS: SODIUM BICARBONATE TAB 650 MG TAB PO SCH ×3 (09:00→19:56)
[2018-08-20] MEDS: guaiFENesin 600 MG TABLET.ER PO SCH ×2 (09:01→20:03)
[2018-08-20] MEDS: GABAPENTIN 400 MG CAP PO SCH ×3 (09:02→19:56)
[2018-08-20] MEDS: SENNOSIDES 8.6 MG TAB PO SCH ×2 (09:02→17:46)
[2018-08-20] MEDS: LEVOFLOXACIN 250 MG TAB PO SCH (09:03)
[2018-08-20] MEDS: DULoxetine HCL 30 MG CAPSULE.DR PO SCH ×2 (09:03→17:46)
[2018-08-20] MEDS: CALCIUM ACETATE 667 MG CAP PO SCH ×3 (09:04→21:23)
[2018-08-20] MEDS: POLYETHYLENE GLYCOL 3350 17 GM POWD.PACK PO SCH (09:04)
[2018-08-20] MEDS: INSULIN ASPART (NovoLOG) 100 UNIT/ML VIAL SQ SCH ×3 (09:08→17:47)
[2018-08-20] MEDS: PANTOPRAZOLE 40 MG TABLET PO SCH (09:10)
[2018-08-20 11:06] LABS: Glucose,Whole Blood 375 mg/dL (75-99)
--- NOTE | 2018-08-20 13:07 | P.HPIM ---
History of Present Illness H&P Date: 08/19/18 Chief Complaint: Acute severe abdominal pain, acute anemia, CAD, COPD, rheum atoid arthritis 63-year-old female one of my patient in [facility] for the last few month had lower extremity injury post surgery has not been able template to walk had declined quite bed was transferred to the long run care. Patient had multiple medical problem from chronic pain syndrome, COPD, first cardiac heart disease with previous history of SC and arrhythmia history of PE in May type 2 diabetes on insulin along with a chronic neuropathy. Noticed by the nurse significant discomfort abdominal area with worsening hematoma bruises [facility] was seen and evaluated her hemoglobin was quite bit low decided to send her back to [facility] continue to decline with significant pain and discomfort much worsening bruises with a new layer of large bruise and hematoma in the mid abdominal region area. Patient was sent to [facility] department at [facility] was seen and evaluated found to have large hematoma worsening abdominal pain and elevated troponin much worsening kidney function. Patient was admitted to the hospital for the above problem. Review of Systems CONSTITUTIONAL: Well-developed no acute respiratory distress. Quite bit obese in no acute respiratory distress EYES: No icterus sclerae, no conjunctivitis. EARS, NOSE, MOUTH, THROAT, and FACE: No sore throat, lymphadenopathy, carotid bruits or deformity. RESPIRATORY: Positive shortness of breath and cough. CARDIOVASCULAR: Positive PND orthopnea palpitations GASTROINTESTINAL: Positive abdominal pain, positive bruises and hematoma, no active gastrointestinal bleed. GENITOURINARY: Negative for Hematuria or UTI, no kidney stones. INTEGUMENT/BREAST: Positive generalized muscle and joint pain. HEMATOLOGIC/LYMPHATIC: Negative for bleed or purpura. MUSCULOSKELTAL: Positive myalgia and arthralgia. NEURLOGICAL: No LOC, Sz or syncope, blurred vision dizziness or abnormality.. Positive neuropathy. BEHAVIORAL/PSYCH: Negative. ENDOCRINE: Negative. Past Medical History Past Medical History: Asthma, Coronary Artery Disease (CAD), Cancer, Heart Failure, COPD, Diabetes Mellitus, GI Bleed, Hyperlipidemia, Hypertension, Myocardial Infarction (SC), Osteoarthritis (OA), Pulmonary Embolus (PE), Renal Disease, Rheumatoid Arthritis (RA), Sleep Apnea/CPAP/BIPAP, Syncope, Thyroid Disorder Additional Past Medical History / Comment(s): IDDM type II poorly controlled,uses cpap bilateral peripheral neuropathy bilateral hands/feet, CKD , UTIs, legally blind bilaterally-sees minimally, thyroid cancer with surgery, goiter, hashimotos, diverticular disease, 2013 upper and lower GI bleeds with blood loss anemia, gout, R humeral fracture with surgery, occasionally bladder incont.past falls, "lt ankle broke 3 places-SX DONE. pt stated "not walking but able to stand and pivot with med boot on," Last Myocardial Infarction Date:: 2009 History of Any Multi-Drug Resistant Organisms: None Reported Past Surgical History: Adenoidectomy, Back Surgery, Cholecystectomy, Heart Catheterization With Stent, Tonsillectomy Additional Past Surgical History / Comment(s): PCI with stent 2009, low back surgery, total R shoulder and total R knee arthroplasties, bilateral hand trigger finger surgeries, EGD, colonoscopy, L eye laser eye surgery for bleed, thyroidectomy.lt tib fib fx-plate and screws. Past Anesthesia/Blood Transfusion Reactions: No Reported Reaction Additional Past Anesthesia/Blood Transfusion Reaction / Comment(s): Pt has received blood in past without reaction. Date of Last Stent Placement:: 2009 Past Psychological History: Anxiety, Depression Additional Psychological History / Comment(s): Pt resides at [facility] currently. pt stated "not walking but able to stand and pivot (while wearing medi boot)to w/c. Smoking Status: Never smoker Past Alcohol Use History: None Reported Past Drug Use History: None Reported - Past Family History Mother Family Medical History: Asthma, CVA/TIA, Seizure Disorder Additional Family Medical History / Comment(s): epilepsy Father Family Medical History: COPD, Diabetes Mellitus Additional Family Medical History / Comment(s): many heart problems Medications and Allergies Home Medications Medication Instructions Recorded Confirmed Type Carvedilol [Coreg] 6.25 mg PO BID@0800,1700 02/23/15 04/22/18 History Sodium Bicarbonate 325 mg PO TID@0800,1400,199908/06/16 08/19/18 History Atorvastatin [Lipitor] 40 mg PO HS 11/21/17 08/19/18 History Calcium Acetate [PhosLo] 667 mg PO TID@0800,1400,199911/21/17 08/19/18 History DULoxetine HCL [Cymbalta] 30 mg PO BID@0800,1700 11/21/17 08/19/18 History Ferrous Sulfate [Iron (65 MG 325 mg PO DAILY@1700 11/21/17 08/19/18 History Elemental)] Fluticasone Propionate [Flovent 2 puff INHALATION RT-BID 11/21/17 08/19/18 History Hfa 110mcg] Gabapentin [Neurontin] 400 mg PO TID@0800,1400,2000 11/21/17 08/19/18 History Insulin Aspart [NovoLOG Flexpen] 5 unit SQ AC-TID 11/21/17 08/19/18 History Levothyroxine Sodium [Synthroid] 175 mcg PO DAILY@0600 11/21/17 08/19/18 History Montelukast [Singulair] 10 mg PO HS 11/21/17 08/19/18 History Polyethylene Glycol 3350 [Miralax] 17 gm PO DAILY 11/21/17 08/19/18 History Tofacitinib Citrate [Xeljanz Xr] 11 mg PO DAILY 11/21/17 08/19/18 History Acetaminophen [Tylenol] 650 mg PO Q4H PRN 08/19/18 08/19/18 History Albuterol Nebulized [Ventolin 2.5 mg INHALATION RT-QID PRN 08/19/18 08/19/18 History Nebulized] Bisacodyl [Dulcolax] 10 mg RECTAL DAILY PRN 08/19/18 08/19/18 History Calcium Carbonate [Tums] 1,000 mg PO TID PRN 08/19/18 08/19/18 History Dextran 70/Hypromellose [Genteal 1 drop BOTH EYES QID PRN 08/19/18 08/19/18 History Tears 0.1%-0.3% Drop] Furosemide [Lasix] 40 mg PO BID@0800,1700 08/19/18 08/19/18 History Insulin Degludec [Tresiba] 37 units SQ HS 08/19/18 08/19/18 History Levofloxacin 250 mg PO DAILY 08/19/18 08/19/18 History Mag Hydrox/Al Hydrox/Simeth 30 ml PO DAILY PRN 08/19/18 08/19/18 History [Maalox] Na Phos,M-B/Na Phos,Di-Ba [Fleet 133 ml RECTAL DAILY PRN 08/19/18 08/19/18 History Adult] Pantoprazole Sodium [Protonix] 40 mg PO AC-BRKFST 08/19/18 08/19/18 History Sennosides [Senna] 8.6 mg PO BID@0800,1700 08/19/18 08/19/18 History guaiFENesin [Mucinex] 600 mg PO BID@0800,2100 08/19/18 08/19/18 History oxyCODONE HCL [OxyIR] 5 mg PO Q4H PRN 08/19/18 08/19/18 History Allergies Allergy/AdvReac Type Severity Reaction Status Date / Time No Known Allergies Allergy Verified 08/19/18 11:55 Physical Exam Vitals: Vital Signs Temp Pulse Pulse Resp BP BP Pulse Ox 08/19/18 20:37 97.5 F L 73 18 122/73 98 08/19/18 18:18 97.7 F 82 16 130/75 98 08/19/18 17:35 98.2 F 72 18 137/62 96 08/19/18 16:00 81 18 151/74 96 08/19/18 15:30 78 18 139/71 97 08/19/18 15:00 77 18 118/63 95 08/19/18 14:30 82 18 125/91 99 08/19/18 14:00 78 16 146/86 99 08/19/18 13:57 70 08/19/18 13:40 68 08/19/18 13:00 80 17 133/76 99 08/19/18 12:30 78 18 149/79 98 08/19/18 12:00 77 16 137/66 97 08/19/18 11:31 76 16 140/70 96 08/19/18 11:15 97.2 F L 82 82 H 140/70 88 L Intake and Output 08/19/18 08/19/18 08/19/18 06:59 14:59 22:59 Intake Total 200 Balance 200 Intake: Intake, IV Titration 80 Amount Sodium Chloride 0.9% 1, 80 000 ml @ 20 mls/hr IV . Q24H [facility] Rx#:[id number] Oral 120 Other: # Voids 1 Weight 134.944 kg General Appearance: Alert, cooperative, no distress, appears stated age. Overweight in no acute respiratory distress Neck HEENT: Supple, no lymphadenopathy, no thyroid enlargement, no carotid bruits. Lungs: Decreased breath some bilateral rhonchi positive mild expiratory wheezes and crackles in the bases. Chest Wall: Decreased expansion with deep inspiration no tenderness and no deformity was found on exam, no costochondral pain or discomfort. Heart: Irregular rate and rhythm, S1, S2 normal, no murmur, rub or gallop. +5 cm JVD and S3. Back: Symmetric, no curvature, ROM normal, no CVA tenderness. Abdomen: Soft positive bowel sound multiple bruises and 2 layer one is darker than the other layer which is a lower part other 1 is more jewel diameter gauger color and looks like active acute bleeding significant tenderness in the midepigastric area and right upper quadrant area as well slight discomfort in the lower abdominal region area.. Extremities: Extremities normal, atraumatic, no cyanosis or edema. Multiple arthritis site with worsening area and both lower extremity specially the right side. Pulses: 2+ and symmetric. Skin: Skin color, texture, tugor normal, no rashes or lesions. Neurologic: Alert oriented x3 cranial nerves II through XII intact, no motor deficit, no abnormal balance or gait. Results CBC & Chem 7: 08/19/18 11:27 08/19/18 11:27 Labs: Abnormal Lab Results - Last 24 Hours (Table) 08/19/18 08/19/18 08/19/18 Range/Units 11:27 11: 11:27 RBC 2.58 L (3.80-5.40) m/uL Hgb 7.6 L (11.4-16.0) gm/dL Hct 24.1 L (34.0-46.0) % RDW 16.1 H (11.5-15.5) % APTT 21.7 L (22.0-30.0) sec Chloride 96 L (98-107) mmol/L Carbon Dioxide 36 H (22-30) mmol/L BUN 63 H (7-17) mg/dL Creatinine 2.50 H (0.52-1.04) mg/dL Glucose 161 H (74-99) mg/dL POC Glucose (mg/dL) (75-99) mg/dL Magnesium 2.5 H (1.6-2.3) mg/dL Troponin I (0.000-0.034) ng/mL Total Protein 6.2 L (6.3-8.2) g/dL Albumin 2.9 L (3.5-5.0) g/dL 08/19/18 08/19/18 Range/Units 11:27 20:17 RBC (3.80-5.40) m/uL Hgb (11.4-16.0) gm/dL Hct (34.0-46.0) % RDW (11.5-15.5) % APTT (22.0-30.0) sec Chloride (98-107) mmol/L Carbon Dioxide (22-30) mmol/L BUN (7-17) mg/dL Creatinine (0.52-1.04) mg/dL Glucose (74-99) mg/dL POC Glucose (mg/dL) 278 H (75-99) mg/dL Magnesium (1.6-2.3) mg/dL Troponin I 0.190 H* (0.000-0.034) ng/mL Total Protein (6.3-8.2) g/dL Albumin (3.5-5.0) g/dL Microbiology - Last 24 Hours (Table) 08/19/18 12:30 Urine Culture - Preliminary Urine,Voided Thrombosis Risk Factor Assmnt - DVT/VTE Prophylaxis DVT/VTE Prophylaxis: Pharmacologic Prophylaxis ordered, Mechanical Prophylaxis ordered - Choose All That Apply Each Factor Represents 1 point: Abnormal pulmonary function (COPD), Obesity (BMI >25), Swollen legs (current) Other Risk Factors: Yes Each Risk Factor Represents 2 Points: Age 61-74 years Other congenital or acquired thrombophilia - If yes, enter type in comment: No Thrombosis Risk Factor Assessment Total Risk Factor Score: 5 Thrombosis Risk Factor Assessment Level: High Risk Assessment and Plan Plan: 1 acute severe abdominal pain: With hematoma and severe bruises on the abdominal area with worsening discomfort in the epigastric area. Patient be seen general surgery, CT of the abdomen was done might order an ultrasound for follow-up as well continue to watch for any further drop in hemoglobin at this point. 2 elevated troponin: With possible non-ST SC, patient be admitted CK with troponin 3 to be done, repeat EKG, order echo and refer patient to cardiology further testing including but not limited to echo and stress test. 3 severe acute anemia: The significant drop in hemoglobin 3 g in the last week down to the low 7. No need for blood transfusion at this point repeat CBC and iron level continued to do GI prophylaxis if further drop in hemoglobin patient might need further GI workup. 4 chronic kidney disease stage III with worsening kidney function specially with the hypertension and the anemia, continue gentle hydration and watch for any further drop in kidney function and GFR. 5 COPD: On DuoNeb and Flovent currently, and Singulair. 6 CHF/CAD and cardiomyopathy: Patient still on furosemide 40 mg twice a day along with Coreg 6.25 mg twice a day 7 hyperlipidemia: On atorvastatin 40 mg daily continue medication. 8 hypothyroidism: On levothyroxine 175 g daily. 9 type 2 diabetes: Remain on insulin between Lantus and NovoLog continue both medication longer acting has been through [facility] 37 units at bedtime which will be switched to Levemir while she is in the hospital. 10 obstructive sleep apnea: Require CPAP at nighttime. 11 hypertension: Well controlled currently on Coreg 12 history of pulmonary embolism: Off anticoagulation past 6 months. 13 chronic pain syndrome: Remain on OxyIR 5 mg every 4 hours as needed still on gabapentin 400 mg 3 times a day 14 GI prophylaxis: On pantoprazole 40 mg daily. 15 DVT prophylaxis: Will do early mobilization and knee-high MELY hose. 16 rheumatoid arthritis: Patient has been on Xeljanz. CODE STATUS: Full code. Admit patient to inpatient status for more than 2 nights.
[2018-08-20] MEDS ORDERED: INSULIN ASPART (NovoLOG) 100 UNIT/ML VIAL SQ ONE (13:47)
[2018-08-20 13:50] LABS: Anisocytosis Slight; Basophils % (A) 0 %; Eosinophils # (A) 0.1 k/uL (0-0.7); Eosinophils % (A) 1 %; HCT 26.7 % (34.0-46.0); HGB 8.1 gm/dL (11.4-16.0); Hypochromasia Marked; Lymphocytes # (A) 0.6 k/uL (1.0-4.8); Lymphocytes % (A) 5 %; MCH 30.4 pg (25.0-35.0); MCHC 30.5 g/dL (31.0-37.0); Macrocytosis Slight; Mean Platelet Volume 7.6; Monocytes # (A) 0.4 k/uL (0-1.0); Monocytes % (A) 4 %; Neutrophils # (A) 9.1 k/uL (1.3-7.7); Neutrophils % (A) 89 %; Platelet Count 263 k/uL (150-450); RBC 2.67 m/uL (3.80-5.40); RDW 16.9 % (11.5-15.5); WBC 10.1 k/uL (3.8-10.6)
[2018-08-20 13:51] LABS: MCV 99.9 fL (80.0-100.0)
--- NOTE | 2018-08-20 13:56 | P.PN ---
Subjective Progress Note Date: 08/20/18 63-year-old female one of my patient in [facility] for the last few month had lower extremity injury post surgery has not been able template to walk had declined quite bed was transferred to the long run care. Patient had multiple medical problem from chronic pain syndrome, COPD, first cardiac heart disease with previous history of MT and arrhythmia history of PE in May type 2 diabetes on insulin along with a chronic neuropathy. Noticed by the nurse significant discomfort abdominal area with worsening hematoma bruises was sent to [facility] was seen and evaluat ed her hemoglobin was quite bit low decided to send her back to [facility] continue to decline with significant pain and discomfort much worsening bruises with a new layer of large bruise and hematoma in the mid abdominal region area. Patient was [facility] was seen and evaluated found to have large hematoma worsening abdominal pain and elevated troponin much worsening kidney function. Patient was admitted to the hospital for the above problem. 08/20: Repeat troponins are 0.136 and 0.113. ProBNP 22,000. Blood sugars are running high up to 375. Patient did not receive her nighttime Levemir. Additional dose of NovoLog 14 units will be given now. Patient stating that she is less short of breath from yesterday. IV fluids will be discontinued and changed to saline lock. Cardiology has evaluated the patient and ordered echocardiogram. She is currently on IV Lasix 40 mg twice daily. Consult with Dr. Rodriguez added for abdominal pain and large hematoma. Review of Systems CONSTITUTIONAL: No fever no chills, no seizure activity. EYES: No icterus sclerae, no conjunctivitis. EARS, NOSE, MOUTH, THROAT, and FACE: No sore throat, lymphadenopathy, carotid bruits or deformity. RESPIRATORY: Positive shortness of breath and cough. CARDIOVASCULAR: Positive PND orthopnea palpitations GASTROINTESTINAL: Positive abdominal pain, positive bruises and hematoma, no active gastrointestinal bleed. GENITOURINARY: Negative for Hematuria or UTI, no kidney stones. INTEGUMENT/BREAST: Positive generalized muscle and joint pain. HEMATOLOGIC/LYMPHATIC: Negative for bleed or purpura. MUSCULOSKELTAL: Positive myalgia and arthralgia. NEURLOGICAL: No LOC, Sz or syncope, blurred vision dizziness or abnormality.. Positive neuropathy. BEHAVIORAL/PSYCH: Negative. ENDOCRINE: Negative. Objective - Vital Signs Vital signs: Vital Signs Temp 97.5 F L 08/20/18 05:00 Pulse 75 08/20/18 05:00 Resp 18 08/20/18 05:00 BP 123/69 08/20/18 05:00 Pulse Ox 97 08/20/18 05:00 Intake & Output 08/19/18 08/20/18 08/20/18 18:59 06:59 18:59 Intake Total 600 Balance 600 Weight 134.944 kg Intake: Intake, IV Titration 240 Amount Sodium Chloride 0.9% 1, 240 000 ml @ 20 mls/hr IV . Q24H [facility] Rx#:[id number] Oral 360 Other: Voiding Method Bedside Commode Diaper # Voids 2 - Exam General Appearance: Morbidly obese 63-year-old female. Alert, coopera tive, no distress, appears stated age. Neck HEENT: Supple, no lymphadenopathy, no thyroid enlargement, no carotid bruits. Lungs: Decreased breath some bilateral rhonchi positive mild expiratory wheezes and crackles in the bases. Chest Wall: Decreased expansion with deep inspiration no tenderness and no deformity was found on exam, no costochondral pain or discomfort. Heart: Irregular rate and rhythm, S1, S2 normal, no murmur, rub or gallop. and S3. Back: Symmetric, no curvature, ROM normal, no CVA tenderness. Abdomen: Soft positive bowel sound multiple bruises and 2 layer one is darker than the other layer which is a lower part other 1 is more veneer sample maker color and looks like active acute bleeding significant tenderness in the midepigastric area and right upper quadrant area as well slight discomfort in the lower abdominal region area.. Extremities: Extremities normal, atraumatic, no cyanosis or edema. Multiple arthritis site with worsening area and both lower extremity specially the right side. Pulses: 2+ and symmetric. Skin: Skin color, texture, tugor normal, no rashes or lesions. Neurologic: Alert oriented x3 cranial nerves II through XII intact, no motor deficit, no abnormal balance or gait. - Labs CBC & Chem 7: 08/19/18 11:27 08/19/18 11: Labs: Abnormal Lab Results - Last 24 Hours (Table) 08/19/18 08/19/18 08/19/18 Range/Units 11: 11: 11: RBC 2.58 L (3.80-5.40) m/uL Hgb 7.6 L (11.4-16.0) gm/dL Hct 24.1 L (34.0-46.0) % RDW 16.1 H (11.5-15.5) % APTT 21.7 L (22.0-30.0) sec Chloride 96 L (98-107) mmol/L Carbon Dioxide 36 H (22-30) mmol/L BUN 63 H (7-17) mg/dL Creatinine 2.50 H (0.52-1.04) mg/dL Glucose 161 H (74-99) mg/dL POC Glucose (mg/dL) (75-99) mg/dL Magnesium 2.5 H (1.6-2.3) mg/dL Troponin I (0.000-0.034) ng/mL Total Protein 6.2 L (6.3-8.2) g/dL Albumin 2.9 L (3.5-5.0) g/dL 08/19/18 08/19/18 08/20/18 Range/Units 11:27 20:17 03:29 RBC (3.80-5.40) m/uL Hgb (11.4-16.0) gm/dL Hct (34.0-46.0) % RDW (11.5-15.5) % APTT (22.0-30.0) sec Chloride (98-107) mmol/L Carbon Dioxide (22-30) mmol/L BUN (7-17) mg/dL Creatinine (0.52-1.04) mg/dL Glucose (74-99) mg/dL POC Glucose (mg/dL) 278 H (75-99) mg/dL Magnesium (1.6-2.3) mg/dL Troponin I 0.190 H* 0.136 H* (0.000-0.034) ng/mL Total Protein (6.3-8.2) g/dL Albumin (3.5-5.0) g/dL 08/20/18 Range/Units 06:58 RBC (3.80-5.40) m/uL Hgb (11.4-16.0) gm/dL Hct (34.0-46.0) % RDW (11.5-15.5) % APTT (22.0-30.0) sec Chloride (98-107) mmol/L Carbon Dioxide (22-30) mmol/L BUN (7-17) mg/dL Creatinine (0.52-1.04) mg/dL Glucose (74-99) mg/dL POC Glucose (mg/dL) 275 H (75-99) mg/dL Magnesium (1.6-2.3) mg/dL Troponin I (0.000-0.034) ng/mL Total Protein (6.3-8.2) g/dL Albumin (3.5-5.0) g/dL Microbiology - Last 24 Hours (Table) 08/19/18 12:30 Urine Culture - Preliminary Urine,Voided Assessment and Plan Plan: 1 acute severe abdominal pain: With hematoma and severe bruises on the abdominal area with worsening discomfort in the epigastric area. Patient be seen general surgery, CT of the abdomen was done might order an ultrasound for follow-up as well continue to watch for any further drop in hemoglobin at this point. 2 elevated troponin: Consult with cardiology appreciated. Echocardiogram ordered. 3 severe acute anemia: The significant drop in hemoglobin 3 g in the last week down to the low 7. No need for blood transfusion at this point repeat CBC and iron level continued to do GI prophylaxis if further drop in hemoglobin patient might need further GI workup. 4 acute kidney injury with chronic kidney disease stage III. Repeat lab work in the morning. Continue sodium bicarb 325 mg 3 times daily PhosLo 667 mg 3 times daily 5 COPD: On DuoNeb and Flovent currently, and Singulair. 6 acute on chronic probable systolic heart failure with CAD and cardiomyopathy: Patient still on furosemide 40 mg twice a day along with Coreg 6.25 mg twice a day. Cardiology consult. 7 hyperlipidemia: On atorvastatin 40 mg daily continue medication. 8 hypothyroidism: On levothyroxine 175 g daily. 9 type 2 diabetes uncontrolled with hyperglycemia secondary to steroids, missed dose of Levemir: Continue Levemir 37 units at bedtime, NovoLog scale and scheduled 5 units with meals. Additional dose of 14 units of NovoLog ordered for today. 10 obstructive sleep apnea: Require CPAP at nighttime. 11 hypertension: Well controlled currently on Coreg 12 history of pulmonary embolism: Off anticoagulation past 6 months. 13 chronic pain syndrome: Remain on OxyIR 5 mg every 4 hours as needed still on gabapentin 400 mg 3 times a day 14 GI prophylaxis: On pantoprazole 40 mg daily. 15 DVT prophylaxis: Will do early mobilization and knee-high MELY hose. 16 rheumatoid arthritis: Patient has been on Xeljanz. CODE STATUS: Full code. Discharge plan: Return to [facility] Impression and plan of care have been directed as dictated by the signing physician. Elicia Elizabeth nurse practitioner acting as scribe for signing physician.
--- NOTE | 2018-08-20 14:26 | P.GSCN ---
<Laura Ibarra - Last Filed: 08/20/18 14:25> History of Present Illness Consult date: 08/20/18 Reason for Consult: abdominal pain Requesting physician: Cristiano East History of present illness: CHIEF COMPLAINT: abdominal pain HISTORY OF PRESENT ILLNESS: 63-year-old female admitted to the hospital due to abdominal pain. General surgery was consulted for further evaluation. Patient reports epigastric pain that has been present for about two weeks. Epigastric region is tender to palpation. Pain significantly increases after she eats a meal. She denies change in bowel habits. Denies blood in stools. She denies emesis but states she has been coughing a lot recently due to her COPD and feels like she is going to throw up, but thus far has had no emesis. She is tolerating PO intake. She also reports abdominal bruising that began two days ago. She reports taking aspirin and plavix. Denies current anticoagulation. She was hospitalized about two weeks ago at outside facility and diagnosed with PE. She was placed on a heparin drip, but was not discharged on anticoagulation due to history of GI bleed. Denies falling or trauma to the area. Denies pain near bruised sites. She also reports bruising of her right groin. Patient does have a small marble sized nodule to right groin with surrounding ecchymosis. Patient states this appeared two days ago. She states she had another marble sized lump in her right thigh last week but it resolved on its own. She reports a history of colonoscopy 3-4 years ago at outside facility. Patient reports colonoscopy was normal. She states she has a history of hematemesis 4-5 years ago. She thinks an EGD was attempted but was unsuccessful but is not sure. Hemoglobin on admission 7.6. This morning 8.1. Hemoglobin in June 2018 was 10.4. PAST MEDICAL HISTORY: See list. PAST SURGICAL HISTORY: See list. MEDICATIONS: See list. ALLERGIES: See list. SOCIAL HISTORY: No illicit drug use. REVIEW OF SYSTEMS: CONSTITUTIONAL: Denies fever or chills. HEENT: Denies blurred vision, vision changes, or eye pain. Denies hemoptysis ENDOCRINE: Denies heat or cold intolerance. CARDIOVASCULAR: Denies chest pain or pressure. RESPIRATORY: No shortness of breath. Reports coughing. GASTROINTESTINAL: Reports epigastric pain. Denies vomiting. Denies change in bowel habits. NEURO: Denies history of seizures. PSYCH: No depression or suicidal ideation HEMATOLOGIC: Denies bleeding disorders. LYMPHATIC: The patient denies any lumps and bumps around the neck. GENITOURINARY: Denies any blood in urine or increased urinary frequency. MUSCULOSKELETAL: Denies myalgias. Denies joint swelling. Denies decreased range of motion beyond patients baseline. SKIN: Denies pruitis. Denies rash. Reports bruising to abdomen. PHYSICAL EXAM: VITAL SIGNS: Currently stable. GENERAL: Well-developed in no acute distress. HEENT: No sclera icterus. Extraocular movements grossly intact. Moist buccal mucosa. Head is atraumatic, normocephalic. Hears conversational speech. No nasal drainage. NECK: Supple without lymphadenopathy. CHEST: Non-labored respirations and equal bilateral excursions. CARDIOVASCULAR: Regular rate with regular rhythm. Palpable 2+ radial pulses. ABDOMEN: Obese. Soft. Nondistended. Tenderness upon palpation of epigastric region. Two large areas of ecchymosis spanning width of abdomen, one supraumbilical and other infraumbilical. No pain upon palpation of ecchymotic regions. [place] sized nodule to right groin with surrounding ecchymosis. MUSCULOSKELETAL: No clubbing, cyanosis or edema. NEUROLOGIC: No focal or lateralizing signs. Cranial nerves II through XII grossly intact. PSYCH: Appropriate affect. Alert and oriented to person, place and time. SKIN: Well perfused. Good skin turgor. ASSESSMENT: 1. Epigastric pain, can not exclude underlying peptic ulcer disease/gastric ulcer 2. Anemia, drop in hemoglobin 3 grams since June 3. Abdominal wall hematoma PLAN: 1. Continue current diet 2. Continue protonix 3. Monitor hemoglobin 4. Further recommendations pending evaluation by Dr. Rodriguez Nurse practitioner note has been reviewed by physician. Signing provider agrees with the documented findings, assessment, and plan of care. Past Medical History Past Medical History: Asthma, Coronary Artery Disease (CAD), Cancer, Heart Failure, COPD, Diabetes Mellitus, GI Bleed, Hyperlipidemia, Hypertension, Myocardial Infarction (OR), Osteoarthritis (OA), Pulmonary Embolus (PE), Renal Disease, Rheumatoid Arthritis (RA), Sleep Apnea/CPAP/BIPAP, Syncope, Thyroid Disorder Additional Past Medical History / Comment(s): IDDM type II poorly controlled, uses cpap bilateral peripheral neuropathy bilateral hands/feet, CKD , UTIs, legally blind bilaterally-sees minimally, thyroid cancer with surgery, goiter, hashimotos, diverticular disease, 2013 upper and lower GI bleeds with blood loss anemia, gout, R humeral fracture with surgery, occasionally bladder incont.past falls, "lt ankle broke 3 places-SX DONE. pt stated "not walking but able to stand and pivot with med boot on," Last Myocardial Infarction Date:: 2009 History of Any Multi-Drug Resistant Organisms: None Reported Past Surgical History: Adenoidectomy, Back Surgery, Cholecystectomy, Heart Catheterization With Stent, Tonsillectomy Additional Past Surgical History / Comment(s): PCI with stent 2009, low back surgery, total R shoulder and total R knee arthroplasties, bilateral hand trigger finger surgeries, EGD, colonoscopy, L eye laser eye surgery for bleed, thyroidectomy.lt tib fib fx-plate and screws. Past Anesthesia/Blood Transfusion Reactions: No Reported Reaction Additional Past Anesthesia/Blood Transfusion Reaction / Comm: Pt has received blood in past without reaction. Date of Last Stent Placement:: 2009 Past Psychological History: Anxiety, Depression Additional Psychological History / Comment(s): Pt resides at [facility] currently. pt stated "not walking but able to stand and pivot (while wearing medi boot) to w/c. Smoking Status: Never smoker Past Alcohol Use History: None Reported Past Drug Use History: None Reported - Past Family History Mother Family Medical History: Asthma, CVA/TIA, Seizure Disorder Additional Family Medical History / Comment(s): epilepsy Father Family Medical History: COPD, Diabetes Mellitus Additional Family Medical History / Comment(s): many heart problems Medications and Allergies Home Medications Medication Instructions Recorded Confirmed Type Carvedilol [Coreg] 6.25 mg PO BID@0800,1700 02/23/15 04/22/18 History Sodium Bicarbonate 325 mg PO TID@0800,1400,199908/06/16 08/19/18 History Atorvastatin [Lipitor] 40 mg PO HS 11/21/17 08/19/18 History Calcium Acetate [PhosLo] 667 mg PO TID@0800,1400,199911/21/17 08/19/18 History DULoxetine HCL [Cymbalta] 30 mg PO BID@0800,1700 11/21/17 08/19/18 History Ferrous Sulfate [Iron (65 MG 325 mg PO DAILY@1700 11/21/17 08/19/18 History Elemental)] Fluticasone Propionate [Flovent 2 puff INHALATION RT-BID 11/21/17 08/19/18 History Hfa 110mcg] Gabapentin [Neurontin] 400 mg PO TID@0800,1400,2000 11/21/17 08/19/18 History Insulin Aspart [NovoLOG Flexpen] 5 unit SQ AC-TID 11/21/17 08/19/18 History Levothyroxine Sodium [Synthroid] 175 mcg PO DAILY@0600 11/21/17 08/19/18 History Montelukast [Singulair] 10 mg PO HS 11/21/17 08/19/18 History Polyethylene Glycol 3350 [Miralax] 17 gm PO DAILY 11/21/17 08/19/18 History Tofacitinib Citrate [Xeljanz Xr] 11 mg PO DAILY 11/21/17 08/19/18 History Acetaminophen [Tylenol] 650 mg PO Q4H PRN 08/19/18 08/19/18 History Albuterol Nebulized [Ventolin 2.5 mg INHALATION RT-QID PRN 08/19/18 08/19/18 History Nebulized] Bisacodyl [Dulcolax] 10 mg RECTAL DAILY PRN 08/19/18 08/19/18 History Calcium Carbonate [Tums] 1,000 mg PO TID PRN 08/19/18 08/19/18 History Dextran 70/Hypromellose [Genteal 1 drop BOTH EYES QID PRN 08/19/18 08/19/18 History Tears 0.1%-0.3% Drop] Furosemide [Lasix] 40 mg PO BID@0800,1700 08/19/18 08/19/18 History Insulin Degludec [Tresiba] 37 units SQ HS 08/19/18 08/19/18 History Levofloxacin 250 mg PO DAILY 08/19/18 08/19/18 History Mag Hydrox/Al Hydrox/Simeth 30 ml PO DAILY PRN 08/19/18 08/19/18 History [Maalox] Na Phos,M-B/Na Phos,Di-Ba [Fleet 133 ml RECTAL DAILY PRN 08/19/18 08/19/18 History Adult] Pantoprazole Sodium [Protonix] 40 mg PO AC-BRKFST 08/19/18 08/19/18 History Sennosides [Senna] 8.6 mg PO BID@0800,1700 08/19/18 08/19/18 History guaiFENesin [Mucinex] 600 mg PO BID@0800,2100 08/19/18 08/19/18 History oxyCODONE HCL [OxyIR] 5 mg PO Q4H PRN 08/19/18 08/19/18 History Allergies Allergy/AdvReac Type Severity Reaction Status Date / Time No Known Allergies Allergy Verified 08/19/18 11:55 Surgical - Exam Vital Signs Temp Pulse Resp BP Pulse Ox 97.2 F L 82 82 H 140/70 88 L 08/19/18 11:15 08/19/18 11:15 08/19/18 11:15 08/19/18 11:15 08/19/18 11:15 Results - Labs 08/20/18 09:56 08/19/18 11:27 Abnormal Lab Results - Last 24 Hours (Table) 08/19/18 08/19/18 08/20/18 Range/Units 11:27 20:17 03:29 POC Glucose (mg/dL) 278 H (75-99) mg/dL Troponin I 0.190 H* 0.136 H* (0.000-0.034) ng/mL 08/20/18 08/20/18 08/20/18 Range/Units 06:58 09:58 11:05 POC Glucose (mg/dL) 275 H 375 H (75-99) mg/dL Troponin I 0.113 H* (0.000-0.034) ng/mL Microbiology - Last 24 Hours (Table) 08/19/18 12:30 Urine Culture - Preliminary Urine,Voided <Tmi Rodriguez - Last Filed: 08/21/18 12:59> History of Present Illness History of present illness: As above. Please refer to progress note from 08/21. Surgical - Exam Vital Signs Temp Pulse Resp BP Pulse Ox 97.2 F L 82 82 H 140/70 88 L 08/19/18 11:15 08/19/18 11:15 08/19/18 11:15 08/19/18 11:15 08/19/18 11:15 Results - Labs 08/21/18 08:00 08/21/18 08:00 Abnormal Lab Results - Last 24 Hours (Table) 08/20/18 08/20/18 08/20/18 Range/Units 09:56 17:10 20:08 RBC 2.67 L (3.80-5.40) m/uL Hgb 8.1 L (11.4-16.0) gm/dL Hct 26.7 L (34.0-46.0) % MCHC 30.5 L (31.0-37.0) g/dL RDW 16.9 H (11.5-15.5) % Neutrophils # 9.1 H (1.3-7.7) k/uL Lymphocytes # 0.6 L (1.0-4.8) k/uL Chloride (98-107) mmol/L Carbon Dioxide (22-30) mmol/L BUN (7-17) mg/dL Creatinine (0.52-1.04) mg/dL Glucose (74-99) mg/dL POC Glucose (mg/dL) 203 H 181 H (75-99) mg/dL 08/21/18 08/21/18 08/21/18 Range/Units 07:12 08:00 08:00 RBC 2.78 L (3.80-5.40) m/uL Hgb 8.5 L (11.4-16.0) gm/dL Hct 26.5 L (34.0-46.0) % MCHC (31.0-37.0) g/dL RDW 16.8 H (11.5-15.5) % Neutrophils # (1.3-7.7) k/uL Lymphocytes # (1.0-4.8) k/uL Chloride 97 L (98-107) mmol/L Carbon Dioxide 36 H (22-30) mmol/L BUN 73 H (7-17) mg/dL Creatinine 2.50 H (0.52-1.04) mg/dL Glucose 104 H (74-99) mg/dL POC Glucose (mg/dL) 128 H (75-99) mg/dL 08/21/18 Range/Units 11:10 RBC (3.80-5.40) m/uL Hgb (11.4-16.0) gm/dL Hct (34.0-46.0) % MCHC (31.0-37.0) g/dL RDW (11.5-15.5) % Neutrophils # (1.3-7.7) k/uL Lymphocytes # (1.0-4.8) k/uL Chloride (98-107) mmol/L Carbon Dioxide (22-30) mmol/L BUN (7-17) mg/dL Creatinine (0.52-1.04) mg/dL Glucose (74-99) mg/dL POC Glucose (mg/dL) 231 H (75-99) mg/dL Microbiology - Last 24 Hours (Table) 08/19/18 12:30 Urine Culture - Final Urine,Voided Diabetes panel 08/21/18 Range/Units 08:00 Sodium 139 (137-145) mmol/L Potassium 4.0 (3.5-5.1) mmol/L Chloride 97 L (98-107) mmol/L Carbon Dioxide 36 H (22-30) mmol/L BUN 73 H (7-17) mg/dL Creatinine 2.50 H (0.52-1.04) mg/dL Glucose 104 H (74-99) mg/dL Calcium 9.0 (8.4-10.2) mg/dL Calcium panel 08/21/18 Range/Units 08:00 Calcium 9.0 (8.4-10.2) mg/dL Pituitary panel 08/21/18 Range/Units 08:00 Sodium 139 (137-145) mmol/L Potassium 4.0 (3.5-5.1) mmol/L Chloride 97 L (98-107) mmol/L Carbon Dioxide 36 H (22-30) mmol/L BUN 73 H (7-17) mg/dL Creatinine 2.50 H (0.52-1.04) mg/dL Glucose 104 H (74-99) mg/dL Calcium 9.0 (8.4-10.2) mg/dL Adrenal panel 08/21/18 Range/Units 08:00 Sodium 139 (137-145) mmol/L Potassium 4.0 (3.5-5.1) mmol/L Chloride 97 L (98-107) mmol/L Carbon Dioxide 36 H (22-30) mmol/L BUN 73 H (7-17) mg/dL Creatinine 2.50 H (0.52-1.04) mg/dL Glucose 104 H (74-99) mg/dL Calcium 9.0 (8.4-10.2) mg/dL
--- NOTE | 2018-08-20 15:08 | P.CRDCN ---
History of Present Illness History of present illness: This is a pleasant 63-year-old female past medical history significant for coronary artery disease s/p stent placement to the proximal LAD in 2011, hypertension, dyslipidemia, diabetes mellitus, COPD, obstructive sleep apnea and history of PE. She used to follow in the office with Dr. Myles but hasn't followed up since 2011. We have been asked to see her in consultation secondary to elevated troponins. She presented to the hospital yesterday with symptoms of epigastric pain and bruising around the abdomen. There was no initial EKG obtained. Acute abdominal series was obtained and shows bilateral interstitial edema with blunting of the costrophrenic angles. CT abd/pelvis again shows congestive heart failure. She has been started on lasix 40 mg IV BID since admission. She is seen and examined sitting up in bed in no acute distress. She continues to feel a mild reproducible discomfort in the epigastric region described as "achy" that is worse after eating. She was recently admitted to [facility] earlier this month due to acute exacerbation of heart failure, exacerbation of COPD and questionable PE. Laboratory data reviewed, WBC 10.1, hemoglobin 8.1 was 7.6 on admission, platelets 263, sodium 137, potassium 4.3, creatinine 2.5 with a GFR of 20, magnesium 2.5, troponin 0.190, 0.136, 0.113, NT proBNP 22,000. Current cardiac medications include carvedilol 6.25 mg twice a day, atorvastatin 40 mg daily, Lasix 40 mg twice a day. She underwent a Lexiscan stress test in 2015 which is negative for reversible stress-induced ischemia. At the time of my exam: CONSTITUTIONAL: Denies fever. Denies chills. EYES: Denies blurred vision. Denies vision changes. Denies eye pain. EARS, NOSE, MOUTH & THROAT: Denies headache. Denies sore throat. Denies ear pain. CARDIOVASCULAR: Denies chest pain. Denies shortness of breath. Denies orthopnea. Denies PND. Denies palpitations. RESPIRATORY: Denies cough. GASTROINTESTINAL: Denies abdominal pain. Denies diarrhea. Denies constipation. Denies nausea. Denies vomiting. Complains of epigastric tenderness. MUSCULOSKELETAL: Denies myalgias. INTEGUMENTARY: Denies pruitis. Denies rash. Complains of bruising around her abdomen. NEUROLOGIC: Denies numbness. Denies tingling. Denies weakness. PSYCHIATRIC: Denies anxiety. Denies depression. ENDOCRINE: Denies fatigue. Denies weight change. Denies polydipsia. Denies polyurina. GENITOURINARY: Denies burning, hematuria or urgency with micturation. HEMATOLOGIC: Denies history of anemia. Denies bleeding. Blood pressure 131/78 heart rate 81 afebrile maintaining oxygen saturation on nasal cannula GENERAL: This is a 63-year-old female in no apparent distress at the time of my examination. Morbidly obese. HEENT: Head is atraumatic, normocephalic. Pupils are equal, round. Sclerae anicteric. Conjunctivae are clear. Mucous membranes of the mouth are moist. Neck is supple. There is jugular venous distention noted. No carotid bruit is heard. LUNGS: Bibasilar rales, no wheezes or rhonchi. No chest wall tenderness is noted on palpation or with deep breathing. HEART: Regular rate and rhythm with systolic ejection murmur at the left sternal border, no rubs or gallops. S1 and S2 heard. ABDOMEN: Soft, nontender. Bowel sounds are heard. No organomegaly noted. Mild epigastric tenderness noted on palpation. Ecchymosis noted around lower abdomen. EXTREMITIES: No evidence of peripheral edema and no calf tenderness noted. VASCULAR: Radial and dorsalis pedis pulses palpated, no evidence of clubbing. NEUROLOGIC: Patient is awake, alert and oriented x3. ASSESSMENT Epigastric pain and reproducible tenderness, worse after eating Acute on chronic diastolic heart failure Abnormal troponin, no symptoms of chest pain suggestive of angina. Not indicative of an acute coronary event. Patient states her troponin was elevated at last admission to [facility] earlier this month. Acute normochromic normocytic anemia of unknown etiology, surgery has been consulted Acute on chronic kidney disease History of coronary artery disease s/p stent placement 2011. Hypertension Dyslipidemia Diabetes mellitus COPD PLAN Obtain records from recent hospitalization at [facility] for more clarity on whether or not she had a PE. EKG was requested this morning and reviewed, left bundle branch block which is consistent with previous EKG's on file. Obtain 2D echocardiogram and doppler study to assess cardiac structure and function. Due to her chronic kidney disease, anemia, fluid overload state and no symptoms of angina we recommend maximizing her medical therapy at this time. Continue to diurese with lasix 40 mg IV BID. Repeat kidney function and electrolytes in the morning. Obtain daily weight along with documentation of intake and output. Further recommendations to follow based on clinical course. Nurse Practitioner note has been reviewed, I agree with a documented findings and plan of care. Patient was seen and examined. Past Medical History Past Medical History: Asthma, Coronary Artery Disease (CAD), Cancer, Heart Failure, COPD, Diabetes Mellitus, GI Bleed, Hyperlipidemia, Hypertension, Myocardial Infarction (ID), Osteoarthritis (OA), Pulmonary Embolus (PE), Renal Disease, Rheumatoid Arthritis (RA), Sleep Apnea/CPAP/BIPAP, Syncope, Thyroid Disorder Additional Past Medical History / Comment(s): IDDM type II poorly controlled, uses cpap bilateral peripheral neuropathy bilateral hands/feet, CKD , UTIs, legally blind bilaterally-sees minimally, thyroid cancer with surgery, goiter, hashimotos, diverticular disease, 2013 upper and lower GI bleeds with blood loss anemia, gout, R humeral fracture with surgery, occasionally bladder incont.past falls, "lt ankle broke 3 places-SX DONE. pt stated "not walking but able to stand and pivot with med boot on," Last Myocardial Infarction Date:: 2009 History of Any Multi-Drug Resistant Organisms: None Reported Past Surgical History: Adenoidectomy, Back Surgery, Cholecystectomy, Heart Catheterization With Stent, Tonsillectomy Additional Past Surgical History / Comment(s): PCI with stent 2009, low back surgery, total R shoulder and total R knee arthroplasties, bilateral hand trigger finger surgeries, EGD, colonoscopy, L eye laser eye surgery for bleed, thyroidectomy.lt tib fib fx-plate and screws. Past Anesthesia/Blood Transfusion Reactions: No Reported Reaction Additional Past Anesthesia/Blood Transfusion Reaction / Comment(s): Pt has received blood in past without reaction. Date of Last Stent Placement:: 2009 Past Psychological History: Anxiety, Depression Additional Psychological History / Comment(s): Pt resides at [facility] currently. pt stated "not walking but able to stand and pivot (while wearing medi boot) to w/c. Smoking Status: Never smoker Past Alcohol Use History: None Reported Past Drug Use History: None Reported - Past Family History Mother Family Medical History: Asthma, CVA/TIA, Seizure Disorder Additional Family Medical History / Comment(s): epilepsy Father Family Medical History: COPD, Diabetes Mellitus Additional Family Medical History / Comment(s): many heart problems Medications and Allergies Home Medications Medication Instructions Recorded Confirmed Type Carvedilol [Coreg] 6.25 mg PO BID@0800,1700 02/23/15 04/22/18 History Sodium Bicarbonate 325 mg PO TID@0800,1400,199908/06/16 08/19/18 History Atorvastatin [Lipitor] 40 mg PO HS 11/21/17 08/19/18 History Calcium Acetate [PhosLo] 667 mg PO TID@0800,1400,199911/21/17 08/19/18 History DULoxetine HCL [Cymbalta] 30 mg PO BID@0800,1700 11/21/17 08/19/18 History Ferrous Sulfate [Iron (65 MG 325 mg PO DAILY@0 11/21/17 08/19/18 History Elemental)] Fluticasone Propionate [Flovent 2 puff INHALATION RT-BID 11/21/17 08/19/18 History Hfa 110mcg] Gabapentin [Neurontin] 400 mg PO TID@0800,1400,199911/21/17 08/19/18 History Insulin Aspart [NovoLOG Flexpen] 5 unit SQ AC-TID 11/21/17 08/19/18 History Levothyroxine Sodium [Synthroid] 175 mcg PO DAILY@0600 11/21/17 08/19/18 History Montelukast [Singulair] 10 mg PO 11/21/17 08/19/18 History Polyethylene Glycol 3350 [Miralax] 17 gm PO DAILY 11/21/17 08/19/18 History Tofacitinib Citrate [Xeljanz Xr] 11 mg PO DAILY 11/21/17 08/19/18 History Acetaminophen [Tylenol] 650 mg PO Q4H PRN 08/19/18 08/19/18 History Albuterol Nebulized [Ventolin 2.5 mg INHALATION RT-QID PRN 08/19/18 08/19/18 History Nebulized] Bisacodyl [Dulcolax] 10 mg RECTAL DAILY PRN 08/19/18 08/19/18 History Calcium Carbonate [Tums] 1,000 mg PO TID PRN 08/19/18 08/19/18 History Dextran 70/Hypromellose [Genteal 1 drop BOTH EYES QID PRN 08/19/18 08/19/18 History Tears 0.1%-0.3% Drop] Furosemide [Lasix] 40 mg PO BID@0800,1700 08/19/18 08/19/18 History Insulin Degludec [Tresiba] 37 units SQ HS 08/19/18 08/19/18 History Levofloxacin 250 mg PO DAILY 08/19/18 08/19/18 History Mag Hydrox/Al Hydrox/Simeth 30 ml PO DAILY PRN 08/19/18 08/19/18 History [Maalox] Na Phos,M-B/Na Phos,Di-Ba [Fleet 133 ml RECTAL DAILY PRN 08/19/18 08/19/18 History Adult] Pantoprazole Sodium [Protonix] 40 mg PO AC-BRKFST 08/19/18 08/19/18 History Sennosides [Senna] 8.6 mg PO BID@0800,1700 08/19/18 08/19/18 History guaiFENesin [Mucinex] 600 mg PO BID@0800,2100 08/19/18 08/19/18 History oxyCODONE HCL [OxyIR] 5 mg PO Q4H PRN 08/19/18 08/19/18 History Allergies Allergy/AdvReac Type Severity Reaction Status Date / Time No Known Allergies Allergy Verified 08/19/18 11:55 Physical Exam Vitals: Vital Signs Temp Pulse Pulse Pulse Resp BP BP 08/20/18 05:00 97.5 F L 75 18 123/69 08/19/18 23:00 18 08/19/18 20:37 97.5 F L 73 18 122/73 08/19/18 18:18 97.7 F 82 16 130/75 08/19/18 17:35 98.2 F 72 18 137/62 08/19/18 16:00 81 18 151/74 08/19/18 15:30 78 18 139/71 08/19/18 15:00 77 18 118/63 08/19/18 14:30 82 18 125/91 08/19/18 14:00 78 16 146/86 08/19/18 13:57 70 08/19/18 13:40 68 08/19/18 13:00 80 17 133/76 08/19/18 12:30 78 18 149/79 08/19/18 12:00 77 16 137/66 Pulse Ox 08/20/18 05:00 97 08/19/18 23:00 08/19/18 20:37 98 08/19/18 18:18 98 08/19/18 17:35 96 08/19/18 16:00 96 08/19/18 15:30 97 08/19/18 15:00 95 08/19/18 14:30 99 08/19/18 14:00 99 08/19/18 13:57 08/19/18 13:40 08/19/18 13:00 99 08/19/18 12:30 98 08/19/18 12:00 97 Intake and Output 08/19/18 08/20/18 08/20/18 22:59 06:59 14:59 Intake Total 200 400 Balance 200 400 Intake: Intake, IV Titration 80 160 Amount Sodium Chloride 0.9% 1, 80 160 000 ml @ 20 mls/hr IV . Q24H [facility] Rx#:[id number] Oral 120 240 Other: Voiding Method Bedside Commode Bedside Commode Diaper Diaper # Voids 1 2 Weight 134.944 kg Results 08/20/18 09:56 08/19/18 11:27 Cardiac Enzymes 08/19/18 08/19/18 08/20/18 Range/Units 11:27 11:27 03:29 AST 34 (14-36) U/L Troponin I 0.190 H* 0.136 H* (0.000-0.034) ng/mL 08/20/18 Range/Units 09:58 AST (14-36) U/L Troponin I 0.113 H* (0.000-0.034) ng/mL Coagulation 08/19/18 Range/Units 11:27 PT 10.2 (9.0-12.0) sec APTT 21.7 L (22.0-30.0) sec CBC 08/19/18 Range/Units 11:27 WBC 7.6 (3.8-10.6) k/uL RBC 2.58 L (3.80-5.40) m/uL Hgb 7.6 L (11.4-16.0) gm/dL Hct 24.1 L (34.0-46.0) % Plt Count 245 (150-450) k/uL Comprehensive Metabolic Panel 08/19/18 Range/Units 11:27 Sodium 137 (137-145) mmol/L Potassium 4.3 (3.5-5.1) mmol/L Chloride 96 L (98-107) mmol/L Carbon Dioxide 36 H (22-30) mmol/L BUN 63 H (7-17) mg/dL Creatinine 2.50 H (0.52-1.04) mg/dL Glucose 161 H (74-99) mg/dL Calcium 9.1 (8.4-10.2) mg/dL AST 34 (14-36) U/L ALT 40 (9-52) U/L Alkaline Phosphatase 68 (38-126) U/L Total Protein 6.2 L (6.3-8.2) g/dL Albumin 2.9 L (3.5-5.0) g/dL Current Medications Generic Name Dose Route Start Last Admin Trade Name Freq PRN Reason Stop Dose Admin Acetaminophen 650 mg 08/19/18 22:44 08/20/18 09:10 Tylenol Tab PO 650 mg Q4H PRN Administration Pain or Fever > 100.5 Al Hydroxide/Mg Hydroxide 30 ml 08/19/18 22:44 Maalox PO DAILY PRN Constipation Albuterol Sulfate 2.5 mg 08/19/18 22:44 Ventolin Nebulized INHALATION RT-QID PRN Shortness Of Breath Or Wheezing Artificial Tears 1 drops 08/19/18 22:44 Artificial Tear Drops BOTH EYES QID PRN Dry Eye(s) Atorvastatin Calcium 40 mg 08/20/18 21:00 Lipitor PO HS [facility] Bisacodyl 10 mg 08/19/18 22:44 Dulcolax RECTAL DAILY PRN Constipation Calcium Acetate 667 mg 08/20/18 08:00 08/20/18 09:04 Phoslo PO 667 mg TID@0800,1400,2000 [facility] Administration Calcium Carbonate/Glycine 1,000 mg 08/19/18 22:44 08/20/18 09:00 Tums PO 1,000 mg TID PRN Administration Indigestion Duloxetine HCl 30 mg 08/20/18 08:00 08/20/18 09:03 Cymbalta PO 30 mg BID@0800,1700 [facility] Administration Ferrous Sulfate 325 mg 08/20/18 17:00 Feosol PO DAILY@1700 [facility] Fluticasone Propionate 2 puff 08/20/18 08:00 08/20/18 07:49 Flovent 110 Mcg Inhaler INHALATION 2 puff RT-BID [facility] Administration Furosemide 40 mg 08/19/18 14:45 08/20/18 05:57 Lasix IV 40 mg BID@0600,1800 [facility] Administration Furosemide 40 mg 08/20/18 08:00 08/20/18 09:01 Lasix PO 40 mg BID@0800,1700 [facility] Administration Gabapentin 400 mg 08/20/18 08:00 08/20/18 09:02 Neurontin PO 400 mg TID@0800,1400,2000 [facility] Administration Guaifenesin 600 mg 08/20/18 08:00 08/20/18 09:01 Mucinex PO 600 mg BID@0800,2100 [facility] Administration Sodium Chloride 1,000 mls @ 20 mls/hr 08/19/18 14:45 08/19/18 15:32 Saline 0.9% IV 20 mls/hr .Q24H [facility] Administration Insulin Aspart 5 unit 08/20/18 07:30 08/20/18 09:08 Novolog SQ 5 unit AC-TID [facility] Administration Insulin Detemir 37 unit 08/20/18 21:00 Levemir SQ [facility] Levofloxacin 250 mg 08/20/18 09:00 08/20/18 09:03 Levaquin PO 250 mg DAILY [facility] Administration Levothyroxine Sodium 175 mcg 08/20/18 06:00 08/20/18 05:55 Synthroid PO 175 mcg DAILY@0600 [facility] Administration Montelukast Sodium 10 mg 08/20/18 21:00 Singulair PO HS [facility] Tofacitinib Citrate 11 mg 08/20/18 09:00 08/20/18 09:17 [Xeljanz Xr] 11 Mg PO Not Given DAILY [facility] Oxycodone HCl 5 mg 08/19/18 20:46 08/20/18 09:13 Oxyir PO 5 mg Q4H PRN Administration Pain Pantoprazole Sodium 40 mg 08/20/18 07:30 08/20/18 09:10 Protonix PO 40 mg AC-BRKFST [facility] Administration Polyethylene Glycol 17 gm 08/20/18 09:00 08/20/18 09:04 Miralax PO 17 gm DAILY [facility] Administration Senna 8.6 mg 08/20/18 08:00 08/20/18 09:02 Senokot PO 8.6 mg BID@0800,1700 [facility] Administration Sodium Bicarbonate 325 mg 08/20/18 08:00 08/20/18 09:00 Sodium Bicarbonate Tab PO 325 mg TID@0800,1400,2000 [facility] Administration Sodium Biphosphate/Sodium Phosphate 133 ml 08/19/18 22:44 Fleet Adult RECTAL DAILY PRN Constipation Intake and Output 08/19/18 08/20/18 08/20/18 22:59 06:59 14:59 Intake Total 200 400 Balance 200 400 Intake: Intake, IV Titration 80 160 Amount Sodium Chloride 0.9% 1, 80 160 000 ml @ 20 mls/hr IV . Q24H [facility] Rx#:[id number] Oral 120 240 Other: Voiding Method Bedside Commode Bedside Commode Diaper Diaper # Voids 1 2 Weight 134.944 kg Patient Weight 08/21/18 06:59 Weight 134.944 kg 08/19/18 11:27 08/19/18 11:27
--- NOTE | 2018-08-20 16:54 | ECHOF ---
Referral Reason: MEASUREMENTS -------- HEIGHT: 162.6 cm WEIGHT: 134.7 kg BP: 123/69 RVIDd: 2.7 cm (< 3.3) IVSd: 1.1 cm (0.6 - 1.1) LVIDd: 4.9 cm (3.9 - 5.3) LVPWd: 1.1 cm (0.6 - 1.1) IVSs: 1.4 cm LVIDs: 3.7 cm LVPWs: 1.3 cm LAESV Index (A-L): 20.80 ml/m Ao Diam: 3.1 cm (2.0 - 3.7) AV Cusp: 1.3 cm (1.5 - 2.6) LA Diam: 3.6 cm (2.7 - 3.8) MV E Marlon: 1.28 m/s MV DecT: 203 ms MV A Marlon: 1.47 m/s MV E/A Ratio: 0.87 RAP: 15.00 mmHg RVSP: 21.42 mmHg FINDINGS -------- Sinus rhythm. This was a technically adequate study. The left ventricular size is normal. There is borderline concentric left ventricular hypertrophy. Overall left ventricular systolic function is mild-moderately impaired with, an EF between 40 - 45 % . Septal Hypokinesis Carson Hypokinesis. The right ventricle is normal in size and function. Normal LA size by volume 22+/-6 ml/m2. The right atrium is normal in size. There is mild aortic valve sclerosis. There is mild aortic regurgitation. There is no evidence of aortic stenosis. The mitral valve leaflets are mildly thickened. Mild mitral annular calcification present. Modera te mitral regurgitation is present. Trace tricuspid regurgitation present. Right ventricular systolic pressure is normal at < 35 mmHg. There is no evidence of pulmonary hypertension. The pulmonic valve was not well visualized. The aortic root size is normal. The inferior vena cava is dilated with poor inspiratory collapse which is consistent with estimated r ight atrial pressure of 20 mmHg. There is a small, generalized pericardial effusion present. CONCLUSIONS -------- 1. Sinus rhythm. 2. This was a technically adequate study. 3. The left ventricular size is normal. 4. There is borderline concentric left ventricular hypertrophy. 5. Overall left ventricular systolic function is mild-moderately impaired with, an EF between 40 - 45 %. 6. Septal Hypokinesis 7. Carson Hypokinesis. 8. Normal LA size by volume 22+/-6 ml/m2. 9. There is mild aortic valve sclerosis. 10. There is mild aortic regurgitation. 11. There is no evidence of aortic stenosis. 12. The mitral valve leaflets are mildly thickened. 13. Mild mitral annular calcification present. 14. Moderate mitral regurgitation is present. 15. Trace tricuspid regurgitation present. 16. Right ventricular systolic pressure is normal at < 35 mmHg. 17. There is no evidence of pulmonary hypertension. 18. The pulmonic valve was not well visualized. 19. The aortic root size is normal. 20. The inferior vena cava is dilated with poor inspiratory collapse which is consistent with estimat ed right atrial pressure of 20 mmHg. 21. There is a small, generalized pericardial effusion present. ASSEMBLY LINE INSPECTOR: Aung Bowles RDCS
[2018-08-20] MEDS ORDERED: FERROUS SULFATE 325 MG TAB PO SCH (17:00)
[2018-08-20 17:12] LABS: Glucose,Whole Blood 203 mg/dL (75-99)
[2018-08-20] MEDS: CARVEDILOL 6.25 MG TAB PO SCH (17:46)
[2018-08-20 20:10] LABS: Glucose,Whole Blood 181 mg/dL (75-99)
[2018-08-20 20:20] VITALS: RESP 18
[2018-08-20] MEDS ORDERED: INSULIN DETEMIR (LEVEMIR) 100 UNIT/ML SYR SQ SCH (21:00)
[2018-08-20] MEDS ORDERED: ATORVASTATIN 40 MG TAB PO SCH (21:00)
[2018-08-20] MEDS ORDERED: MONTELUKAST 10 MG TAB PO SCH (21:00)
[2018-08-21 05:25] VITALS: BP 141/81; PULSE 73; TEMP 97.9
[2018-08-21] MEDS: FUROSEMIDE 10 MG/ML 4 ML VIAL IV SCH (06:11)
[2018-08-21] MEDS: LEVOTHYROXINE 50 MCG TAB PO SCH (06:11)
[2018-08-21 07:13] LABS: Glucose,Whole Blood 128 mg/dL (75-99)
[2018-08-21 08:34] LABS: Anisocytosis Slight; Basophils % (A) 0 %; Eosinophils # (A) 0.1 k/uL (0-0.7); Eosinophils % (A) 1 %; HCT 26.5 % (34.0-46.0); HGB 8.5 gm/dL (11.4-16.0); Hypochromasia Moderate; Lymphocytes % (A) 11 %; MCH 30.4 pg (25.0-35.0); MCHC 31.8 g/dL (31.0-37.0); MCV 95.6 fL (80.0-100.0); Macrocytosis Slight; Mean Platelet Volume 7.2; Monocytes # (A) 0.5 k/uL (0-1.0); Monocytes % (A) 5 %; Neutrophils # (A) 7.3 k/uL (1.3-7.7); Neutrophils % (A) 82 %; Platelet Count 299 k/uL (150-450); RBC 2.78 m/uL (3.80-5.40); RDW 16.8 % (11.5-15.5); WBC 8.9 k/uL (3.8-10.6)
[2018-08-21] MEDS: GABAPENTIN 400 MG CAP PO SCH ×2 (08:59→12:37)
[2018-08-21] MEDS: INSULIN ASPART (NovoLOG) 100 UNIT/ML VIAL SQ SCH ×2 (08:59→12:37)
[2018-08-21] MEDS: CARVEDILOL 6.25 MG TAB PO SCH (09:00)
[2018-08-21] MEDS: guaiFENesin 600 MG TABLET.ER PO SCH (09:00)
[2018-08-21] MEDS: SENNOSIDES 8.6 MG TAB PO SCH (09:00)
[2018-08-21] MEDS: SODIUM BICARBONATE TAB 650 MG TAB PO SCH ×2 (09:01→12:37)
[2018-08-21] MEDS: PANTOPRAZOLE 40 MG TABLET PO SCH (09:01)
[2018-08-21] MEDS: CALCIUM ACETATE 667 MG CAP PO SCH ×2 (09:01→12:37)
[2018-08-21] MEDS: LEVOFLOXACIN 250 MG TAB PO SCH (09:02)
[2018-08-21] MEDS: DULoxetine HCL 30 MG CAPSULE.DR PO SCH (09:02)
[2018-08-21] MEDS: POLYETHYLENE GLYCOL 3350 17 GM POWD.PACK PO SCH (09:02)
[2018-08-21] MEDS: FLUTICASONE 110 MCG INHALER INHALATION SCH (09:21)
[2018-08-21 11:13] LABS: Glucose,Whole Blood 231 mg/dL (75-99)
--- NOTE | 2018-08-21 13:01 | P.PN ---
Subjective Progress Note Date: 08/21/18 Principal diagnosis: Generalized ecchymosis abdominal wall Patient with complaints of mild upper and mid abdominal discomfort. Patient has findings of ecchymosis involving the abdominal wall above and below the umbilicus involving all 4 quadrants. Ecchymosis also involving the right flank and right groin region. She has scattered areas of ecchymosis involving the extremities as well. Recent CAT scan reviewed. No sizable fluid collection or hematoma evident. No recent trauma. She is tolerating her diet. Objective - Vital Signs Vital signs: Vital Signs Temp 97.9 F 08/21/18 05:00 Pulse 73 08/21/18 05:00 Resp 18 08/21/18 05:00 BP 141/81 08/21/18 05:00 Pulse Ox 99 08/21/18 05:00 Intake & Output 08/20/18 08/21/18 08/21/18 18:59 06:59 18:59 Weight 134.944 kg 129 kg Other: Voiding Method Bedside Commode Bedside Commode Bedside Commode Diaper Diaper Diaper - Exam Abdomen: Soft, nondistended, ecchymosis horizontally across upper and lower abdomen, ecchymosis involving right flank and right groin, scattered areas of ecchymosis involving extremities elsewhere, mild tenderness upper mid abdomen - Labs CBC & Chem 7: 08/21/18 08:00 08/21/18 08:00 Labs: Abnormal Lab Results - Last 24 Hours (Table) 08/20/18 08/20/18 08/20/18 Range/Units 09:56 17:10 20:08 RBC 2.67 L (3.80-5.40) m/uL Hgb 8.1 L (11.4-16.0) gm/dL Hct 26.7 L (34.0-46.0) % MCHC 30.5 L (31.0-37.0) g/dL RDW 16.9 H (11.5-15.5) % Neutrophils # 9.1 H (1.3-7.7) k/uL Lymphocytes # 0.6 L (1.0-4.8) k/uL Chloride (98-107) mmol/L Carbon Dioxide (22-30) mmol/L BUN (7-17) mg/dL Creatinine (0.52-1.04) mg/dL Glucose (74-99) mg/dL POC Glucose (mg/dL) 203 H 181 H (75-99) mg/dL 08/21/18 08/21/18 08/21/18 Range/Units 07:12 08:00 08:00 RBC 2.78 L (3.80-5.40) m/uL Hgb 8.5 L (11.4-16.0) gm/dL Hct 26.5 L (34.0-46.0) % MCHC (31.0-37.0) g/dL RDW 16.8 H (11.5-15.5) % Neutrophils # (1.3-7.7) k/uL Lymphocytes # (1.0-4.8) k/uL Chloride 97 L (98-107) mmol/L Carbon Dioxide 36 H (22-30) mmol/L BUN 73 H (7-17) mg/dL Creatinine 2.50 H (0.52-1.04) mg/dL Glucose 104 H (74-99) mg/dL POC Glucose (mg/dL) 128 H (75-99) mg/dL 08/21/18 Range/Units 11:10 RBC (3.80-5.40) m/uL Hgb (11.4-16.0) gm/dL Hct (34.0-46.0) % MCHC (31.0-37.0) g/dL RDW (11.5-15.5) % Neutrophils # (1.3-7.7) k/uL Lymphocytes # (1.0-4.8) k/uL Chloride (98-107) mmol/L Carbon Dioxide (22-30) mmol/L BUN (7-17) mg/dL Creatinine (0.52-1.04) mg/dL Glucose (74-99) mg/dL POC Glucose (mg/dL) 231 H (75-99) mg/dL Microbiology - Last 24 Hours (Table) 08/19/18 12:30 Urine Culture - Final Urine,Voided Assessment and Plan (1) Abdominal pain Narrative/Plan: Etiology of the patient's ecchymosis unclear. No evidence of active bleeding. No recent trauma. Patient does take Plavix. No surgical intervention planned at this time. Continue diet as tolerated. Current Visit: Yes Status: Acute Code(s): R10.9 - UNSPECIFIED ABDOMINAL PAIN SNOMED Code(s): 51267311
--- NOTE | 2018-08-21 13:27 | P.DS ---
Providers Date of admission: 08/19/18 14:37 Expected date of discharge: 08/21/18 Attending physician: Cristiano East Consults: 08/19/18 20:51 Consult Physician Routine Consulting Provider: Rodolfo Andrews Consult Reason/Comments: Elevated trop Do you want consulting provider notified?: Yes, Notify in am 08/20/18 12:30 Consult Physician Routine Consulting Provider: Tim Rodriguez Consult Reason/Comments: abd pain and large hematoma Do you want consulting provider notified?: Yes Primary care physician: [facility] Course: 63-year-old female one of my patient in [facility] for the last few month had lower extremity injury post surgery has not been able template to walk had declined quite bed was transferred to the [facility]. Patient had multiple medical problem from chronic pain syndrome, COPD, first cardiac heart disease with previous history of DE and arrhythmia history of PE in May type 2 diabetes on insulin along with a chronic neuropathy. Noticed by the nurse significant discomfort abdominal area with worsening hematoma bruises [facility] was seen and evaluated her hemoglobin was quite bit low decided to send her back to [facility] continue to decline with significant pain and discomfort much worsening bruises with a new layer of large bruise and hematoma in the mid abdominal region area. [facility] was seen and evaluated found to have large hematoma worsening abdominal pain and elevated troponin much worsening kidney function. Patient was admitted to the hospital for the above problem. 08/20: Repeat troponins are 0.136 and 0.113. ProBNP 22,000. Blood sugars are running high up to 375. Patient did not receive her nighttime Levemir. Additional dose of NovoLog 14 units will be given now. Patient stating that she is less short of breath from yesterday. IV fluids will be discontinued and changed to saline lock. Cardiology has evaluated the patient and ordered echocardiogram. She is currently on IV Lasix 40 mg twice daily. Consult with Dr. Rodriguez added for abdominal pain and large hematoma. 08/21: Echocardiogram reveals EF 40-45% with borderline concentric left ventricle hypertrophy, moderate mitral regurgitation, trace tricuspid regurgitation, no pulmonary hypertension, small generalized pericardial effusion. Patient has been seen by cardiology and no changes in medications. Patient was also seen by general surgery. No plan for intervention by general surgery at this point. She has been afebrile, blood pressure 141/81, heart rate running in the 70s, pulse ox 99% on 4 L nasal cannula. BUN 73 and creatinine 2.5. Sodium 139, potassium 4.7, chloride 97, CO2 37. Blood sugars up and running between 104 and 203 and improved from yesterday. Urine culture finalized with skin or genital brenda. Patient continues to have some abdominal pain but improved from yesterday. No plan for any interventions at this point. Her hemoglobin is stable at 8.5 and improving each day. No sign of GI bleeding. Patient will be discharged back to [facility] today in stable condition. Discharge diagnoses: 1 acute severe abdominal pain: With hematoma and severe bruises on the abdominal area with worsening discomfort in the epigastric area. 2 elevated troponin, acute coronary syndrome ruled out. 3 severe acute anemia 4 acute kidney injury with chronic kidney disease stage III. 5 COPD 6 acute on chronic systolic heart failure with CAD and cardiomyopathy 7 hyperlipidemia 8 hypothyroidism 9 type 2 diabetes uncontrolled with hyperglycemia secondary to steroids, missed dose of Levemir 10 obstructive sleep apnea: Require CPAP at nighttime. 11 hypertension 12 history of pulmonary embolism: Off anticoagulation past 6 months. 13 chronic pain syndrome 14 rheumatoid arthritis Discharge plan: Return to [facility] Impression and plan of care have been directed as dictated by the signing physician. Elicia Elizabeth nurse practitioner acting as scribe for signing physician. Patient Condition at Discharge: Good Plan - Discharge Summary Discharge Rx Participant: No New Discharge Prescriptions: Continue Carvedilol [Coreg] 6.25 mg PO BID@0800,1700 Sodium Bicarbonate 325 mg PO TID@0800,1400,1999 Insulin Aspart [NovoLOG Flexpen] 5 unit SQ AC-TID Calcium Acetate [PhosLo] 667 mg PO TID@0800,1400,1999 Montelukast [Singulair] 10 mg PO HS Polyethylene Glycol 3350 [Miralax] 17 gm PO DAILY Levothyroxine Sodium [Synthroid] 175 mcg PO DAILY@0600 Fluticasone Propionate [Flovent Hfa 110mcg] 2 puff INHALATION RT-BID Ferrous Sulfate [Iron (65 MG Elemental)] 325 mg PO DAILY@1700 DULoxetine HCL [Cymbalta] 30 mg PO BID@0800,1700 Atorvastatin [Lipitor] 40 mg PO HS Tofacitinib Citrate [Xeljanz Xr] 11 mg PO DAILY Acetaminophen [Tylenol] 650 mg PO Q4H PRN PRN Reason: Pain Or Fever > 100.5 Albuterol Nebulized [Ventolin Nebulized] 2.5 mg INHALATION RT-QID PRN PRN Reason: Shortness Of Breath Or Wheezing Bisacodyl [Dulcolax] 10 mg RECTAL DAILY PRN PRN Reason: Constipation Calcium Carbonate [Tums] 1,000 mg PO TID PRN PRN Reason: Indigestion Dextran 70/Hypromellose [Genteal Tears 0.1%-0.3% Drop] 1 drop BOTH EYES QID PRN PRN Reason: Dry Eye(S) Furosemide [Lasix] 40 mg PO BID@0800,1700 guaiFENesin [Mucinex] 600 mg PO BID@0800,2100 Insulin Degludec [Tresiba] 37 units SQ HS Levofloxacin 250 mg PO DAILY Mag Hydrox/Al Hydrox/Simeth [Maalox] 30 ml PO DAILY PRN PRN Reason: Constipation Na Phos,M-B/Na Phos,Di-Ba [Fleet Adult] 133 ml RECTAL DAILY PRN PRN Reason: Constipation Pantoprazole Sodium [Protonix] 40 mg PO AC-BRKFST Sennosides [Senna] 8.6 mg PO BID@0800,1700 Gabapentin [Neurontin] 400 mg PO TID@0800,1399,1999 #9 cap oxyCODONE HCL [OxyIR] 5 mg PO Q4H PRN #18 tab PRN Reason: Pain Discharge Medication List Carvedilol [Coreg] 6.25 mg PO BID@0800,1700 02/23/15 [History] Sodium Bicarbonate 325 mg PO TID@0800,1400,199908/06/16 [History] Atorvastatin [Lipitor] 40 mg PO HS 11/21/17 [History] Calcium Acetate [PhosLo] 667 mg PO TID@0800,1400,199911/21/17 [History] DULoxetine HCL [Cymbalta] 30 mg PO BID@0800,1700 11/21/17 [History] Ferrous Sulfate [Iron (65 MG Elemental)] 325 mg PO DAILY@1700 11/21/17 [History] Fluticasone Propionate [Flovent Hfa 110mcg] 2 puff INHALATION RT-BID 11/21/17 [History] Insulin Aspart [NovoLOG Flexpen] 5 unit SQ AC-TID 11/21/17 [History] Levothyroxine Sodium [Synthroid] 175 mcg PO DAILY@0600 11/21/17 [History] Montelukast [Singulair] 10 mg PO HS 11/21/17 [History] Polyethylene Glycol 3350 [Miralax] 17 gm PO DAILY 11/21/17 [History] Tofacitinib Citrate [Xeljanz Xr] 11 mg PO DAILY 11/21/17 [History] Acetaminophen [Tylenol] 650 mg PO Q4H PRN 08/19/18 [History] Albuterol Nebulized [Ventolin Nebulized] 2.5 mg INHALATION RT-QID PRN 08/19/18 [History] Bisacodyl [Dulcolax] 10 mg RECTAL DAILY PRN 08/19/18 [History] Calcium Carbonate [Tums] 1,000 mg PO TID PRN 08/19/18 [History] Dextran 70/Hypromellose [Genteal Tears 0.1%-0.3% Drop] 1 drop BOTH EYES QID PRN 08/19/18 [History] Furosemide [Lasix] 40 mg PO BID@0800,1700 08/19/18 [History] Insulin Degludec [Tresiba] 37 units SQ HS 08/19/18 [History] Levofloxacin 250 mg PO DAILY 08/19/18 [History] Mag Hydrox/Al Hydrox/Simeth [Maalox] 30 ml PO DAILY PRN 08/19/18 [History] Na Phos,M-B/Na Phos,Di-Ba [Fleet Adult] 133 ml RECTAL DAILY PRN 08/19/18 [History] Pantoprazole Sodium [Protonix] 40 mg PO AC-BRKFST 08/19/18 [History] Sennosides [Senna] 8.6 mg PO BID@0800,1700 08/19/18 [History] guaiFENesin [Mucinex] 600 mg PO BID@0800,2100 08/19/18 [History] Gabapentin [Neurontin] 400 mg PO TID@0800,1400,2000 #9 cap 08/21/18 [Rx] oxyCODONE HCL [OxyIR] 5 mg PO Q4H PRN #18 tab 08/21/18 [Rx] Follow up Appointment(s)/Referral(s): Cristiano East MD [Primary Care Provider] - 1-2 days (at [facility])
[2018-08-21] MEDS ORDERED: SODIUM FERRIC GLUCONAT-SUCROSE 125 MG in SODIUM CHLORIDE 0.9% 100 ML IVPB ONE (13:30)
--- NOTE | 2018-08-21 14:15 | P.PN ---
Subjective This is a pleasant 63-year-old female past medical history significant for coronary artery disease s/p stent placement to the proximal LAD in 2011, hypertension, dyslipidemia, diabetes mellitus, COPD, obstructive sleep apnea and history of PE. She used to follow in the office with Dr. Myles but hasn't followed up since 2011. We have been asked to see her in consultation secondary to elevated troponins. She presented to the hospital yesterday with symptoms of epigastric pain and bruising around the abdomen. Records obtained from previous admission to [facility] have been reviewed. She underwent a VQ scan there secondary to elevated d-dimer that revealed an intermediate probability for PE. She was initially started on heparin infusion and then started on Eliquis. She then developed a drop in her hgb down to 6.6 so the Eliquis was discontinued on admission with plans to follow up on CBC. Echo obtained there showed EF 45% with mitral regurgitation and no evidence of RV strain. Echo here obtained yesterday shows impaired LV systolic function with EF 40-45%, septal and apical hyokinesia, moderate MR and small generalized pericardia effusion. Weight is down 4.9 kg from admission. She is seen and examined sitting up in the chair. She states she had another episode of epigastric burning last night after eating. She states overall her breathing seems slightly better but not perfect. She denies chest pain, dizziness or palpitations. Potassium 4.0, creatinine stable at 2.5. Blood pressure 141/81 heart rate 73 afebrile maintaining oxygen saturation on nasal cannula. Currently maintained on Lasix 40 mg IV twice a day, atorvastatin 40 mg daily, carvedilol 6.25 mg twice a day. GENERAL: This is a 63-year-old female in no apparent distress at the time of my examination. Morbidly obese. HEENT: Head is atraumatic, normocephalic. Pupils are equal, round. Sclerae anicteric. Conjunctivae are clear. Mucous membranes of the mouth are moist. Neck is supple. There is jugular venous distention noted. No carotid bruit is heard. LUNGS: No rales, wheezes or rhonchi. No chest wall tenderness is noted on palpation or with deep breathing. Diminished bilaterally. HEART: Regular rate and rhythm with systolic ejection murmur at the left sternal border, no rubs or gallops. S1 and S2 heard. EXTREMITIES:1+ bilateral lower extremity edema noted. ASSESSMENT Epigastric pain and reproducible tenderness, worse after eating Acute on chronic diastolic heart failure Abnormal troponin, no symptoms of chest pain suggestive of angina. Not indicative of an acute coronary event. Patient states her troponin was elevated at last admission to [facility] earlier this month. Acute normochromic normocytic anemia of unknown etiology, surgery has been consulted Acute on chronic kidney disease History of coronary artery disease s/p stent placement 2011. Hypertension Dyslipidemia Diabetes mellitus COPD PLAN Continue diuresis with lasix. Repeat chest xray in the morning. Follow kidney function and electrolytes daily. She may require EGD, awaiting surgical opinion. She will need to be on aspirin 81 mg daily if deemed appropriate per surgery. Further recommendations to follow. Nurse Practitioner note has been reviewed, I agree with a documented findings and plan of care. Patient was seen and examined. Objective - Vital Signs Vital signs: Vital Signs Temp 97.9 F 08/21/18 05:00 Pulse 73 08/21/18 05:00 Resp 18 08/21/18 05:00 BP 141/81 08/21/18 05:00 Pulse Ox 99 08/21/18 05:00 Intake & Output 08/20/18 08/21/18 08/21/18 18:59 06:59 18:59 Weight 134.944 kg 129 kg Other: Voiding Method Bedside Commode Bedside Commode Diaper Diaper - Labs CBC & Chem 7: 08/21/18 08:00 08/21/18 08:00 Labs: Abnormal Lab Results - Last 24 Hours (Table) 08/20/18 08/20/18 08/20/18 Range/Units 09:56 09:58 11:05 RBC 2.67 L (3.80-5.40) m/uL Hgb 8.1 L (11.4-16.0) gm/dL Hct 26.7 L (34.0-46.0) % MCHC 30.5 L (31.0-37.0) g/dL RDW 16.9 H (11.5-15.5) % Neutrophils # 9.1 H (1.3-7.7) k/uL Lymphocytes # 0.6 L (1.0-4.8) k/uL Chloride (98-107) mmol/L Carbon Dioxide (22-30) mmol/L BUN (7-17) mg/dL Creatinine (0.52-1.04) mg/dL Glucose (74-99) mg/dL POC Glucose (mg/dL) 375 H (75-99) mg/dL Troponin I 0.113 H* (0.000-0.034) ng/mL 08/20/18 08/20/18 08/21/18 Range/Units 17:10 20:08 07:12 RBC (3.80-5.40) m/uL Hgb (11.4-16.0) gm/dL Hct (34.0-46.0) % MCHC (31.0-37.0) g/dL RDW (11.5-15.5) % Neutrophils # (1.3-7.7) k/uL Lymphocytes # (1.0-4.8) k/uL Chloride (98-107) mmol/L Carbon Dioxide (22-30) mmol/L BUN (7-17) mg/dL Creatinine (0.52-1.04) mg/dL Glucose (74-99) mg/dL POC Glucose (mg/dL) 203 H 181 H 128 H (75-99) mg/dL Troponin I (0.000-0.034) ng/mL 08/21/18 08/21/18 Range/Units 08:00 08:00 RBC 2.78 L (3.80-5.40) m/uL Hgb 8.5 L (11.4-16.0) gm/dL Hct 26.5 L (34.0-46.0) % MCHC (31.0-37.0) g/dL RDW 16.8 H (11.5-15.5) % Neutrophils # (1.3-7.7) k/uL Lymphocytes # (1.0-4.8) k/uL Chloride 97 L (98-107) mmol/L Carbon Dioxide 36 H (22-30) mmol/L BUN 73 H (7-17) mg/dL Creatinine 2.50 H (0.52-1.04) mg/dL Glucose 104 H (74-99) mg/dL POC Glucose (mg/dL) (75-99) mg/dL Troponin I (0.000-0.034) ng/mL Microbiology - Last 24 Hours (Table) 08/19/18 12:30 Urine Culture - Final Urine,Voided
--- NOTE | 2018-08-22 10:29 | CDI ---
Documentation Clarification Form Date: 08-22-18 From: IFRAH Strong Phone: If you have question, contact Sharona Freed at [phone] M-F 8:30 am to 6pm Admit Date: 08/19/2018 2:37:00 PM Patient Name: Yocasta Ho Visit Number: [id number] Discharge Date: 08/21/2018 4:00:00 PM ATTENTION: The Clinical Documentation Specialists (CDI) and [facility] Coding Staff appreciate your assistance in clarifying documentation. Please respond to the clarification below the line at the bottom and electronically sign. The CDI & [facility] Coding staff will review the response and follow-up if needed. Please note: Queries are made part of the Legal Health Record. If you have any questions, please contact the author of this message via ITS. Dr. Cristiano East/ Ken Elizabeth: Conflicting documentation has been found in the medical record in regards to the type of congestive heart failure. Probable systolic heart failure is documented on progress note 08/20 and systolic heart failure is documented in the discharge summary. Diastolic heart failure is documented on the cardiology consult and progress note dated 08/21. In your opinion, what is the most clinically appropriate diagnosis for this patient? Systolic heart failure Diastolic heart failure Systolic and diastolic heart failure Other explanation of clinical findings Unable to determine (no explanation for clinical findings) Diastolic heart failure MTDD
== END 2018-08-21 16:00 | DRG 604 ==
LOC: EC 11:10 → 3NMEDONC 14:37
PROVIDERS: ADMIT Internal Medicine Geriatric Medicine; ATTEND Internal Medicine Geriatric Medicine
DX: S30.1XXA Contusion of abdominal wall, initial encounter (principal); I50.23 Acute on chronic systolic (congestive) heart failure; N17.9 Acute kidney failure, unspecified; I13.0 Hypertensive heart and chronic kidney disease with heart failure and stage 1 through stage 4 chronic kidney disease, or unspecified chronic kidney disease; I42.9 Cardiomyopathy, unspecified; Z68.42 Body mass index [BMI] 45.0-49.9, adult; N18.4 Chronic kidney disease, stage 4 (severe); E86.0 Dehydration; D64.9 Anemia, unspecified; M06.9 Rheumatoid arthritis, unspecified; J44.9 Chronic obstructive pulmonary disease, unspecified; I25.10 Atherosclerotic heart disease of native coronary artery without angina pectoris; G89.4 Chronic pain syndrome; E11.40 Type 2 diabetes mellitus with diabetic neuropathy, unspecified; E11.22 Type 2 diabetes mellitus with diabetic chronic kidney disease; E11.42 Type 2 diabetes mellitus with diabetic polyneuropathy; E11.65 Type 2 diabetes mellitus with hyperglycemia; E78.5 Hyperlipidemia, unspecified; F32.9 Major depressive disorder, single episode, unspecified; F41.9 Anxiety disorder, unspecified; I34.0 Nonrheumatic mitral (valve) insufficiency; R79.1 Abnormal coagulation profile; T38.0X5A Adverse effect of glucocorticoids and synthetic analogues, initial encounter; H54.8 Legal blindness, as defined in USA; M10.9 Gout, unspecified; E03.9 Hypothyroidism, unspecified; R15.9 Full incontinence of feces; R32 Unspecified urinary incontinence; E66.01 Morbid (severe) obesity due to excess calories; G47.33 Obstructive sleep apnea (adult) (pediatric); D50.0 Iron deficiency anemia secondary to blood loss (chronic); Z85.850 Personal history of malignant neoplasm of thyroid; I25.2 Old myocardial infarction; Z79.4 Long term (current) use of insulin; Z90.49 Acquired absence of other specified parts of digestive tract; Z82.5 Family history of asthma and other chronic lower respiratory diseases; Z86.711 Personal history of pulmonary embolism; Z79.899 Other long term (current) drug therapy; Z79.51 Long term (current) use of inhaled steroids; Z79.890 Hormone replacement therapy; Z95.5 Presence of coronary angioplasty implant and graft; Z82.0 Family history of epilepsy and other diseases of the nervous system; Z83.3 Family history of diabetes mellitus; Z87.440 Personal history of urinary (tract) infections; Z91.81 History of falling
CPT/HCPCS: 36415; 74022; 74176; 80048; 80053; 81003; 82150; 83605; 83690; 83735; 83880; 84100; 84484; 85025; 85610; 85730; 87086; 93005; 93306; 94640; 96361; 96374; 96375; 99285

== ENCOUNTER 2019-01-04 21:20 | Inpatient (IN) | payer MEDICARE, OTHER ==
--- NOTE | 2019-01-04 22:20 | ED ---
General Adult HPI - General Chief complaint: Chest Pain Stated complaint: Chest Pain Time Seen by Provider: 01/04/19 21:24 Source: patient, EMS Mode of arrival: EMS Limitations: no limitations - History of Present Illness Initial comments: Dictation was produced using [employer] dictation software. please excuse any grammatical, word or spelling errors. Chief Complaint: 63-year-old female presents with chest pain. History of Present Illness: 63-year-old female she has past medical history coronary artery disease status post stent. She presents today with chest pain. She was at rest doing a puzzle at home which began experiencing pressure-like sensation to the anterior chest. She states that it did radiate to her jaw. She did express some nausea and diaphoresis. She was brought in by EMS. They provided her with aspirin and nitroglycerin. She states her symptoms resolved. Patient denies any symptoms when she initially had the stent placed. She didn't even know that she had coronary artery disease. She reports that she is symptom-free at this time. Denies any shortness of breath. The ROS documented in this emergency department record has been reviewed and confirmed by me. Those systems with pertinent positive or negative responses have been documented in the HPI. All other systems are other negative and/or noncontributory. PHYSICAL EXAM: General Impression: Alert and oriented x3, not in acute distress HEENT: Normocephalic atraumatic, extra-ocular movements intact, pupils equal and reactive to light bilaterally, mucous membranes moist. Cardiovascular: Heart regular rate and rhythm, S1&S2 audible, no murmurs, rubs or gallops Chest: Lungs clear to auscultation bilaterally, no rhonchi, no wheeze, no rales Abdomen: Bowel sounds present, abdomen soft, non-tender, non-distended, no organomegaly Musculoskeletal: Pulses present and equal in all extremities, no peripheral edema Motor: no focal deficits noted Neurological: CN II-XII grossly intact, no focal motor or sensory deficits noted Skin: Intact with no visualized rashes Psych: Normal affect and mood ED course: 63-year-old female presents with typical chest pain symptoms. Vital signs upon arrival are within acceptable limits. Patient is symptom-free at this time. Her symptoms are concerning for acute coronary syndrome. She is given aspirin and nitroglycerin by EMS. Laboratory evaluation obtained. CBC unremarkable. Coag panel unremarkable. Patient does have some mild alkalosis. She is elevated renal markers which ap pear to be around her baseline. Patient's elevated cardiac enzymes at 0.033. Patient is asymptomatic at this time. She started on heparin for unstable angina versus NSTEMI. Patient case discussed with Dr. bro. She received aspirin via EMS. Patient also ordered for when necessary sublingual nitroglycerin. EKG interpretation: Ventricular rate 65, sinus rhythm with first-degree AV block, MT interval to 40, care is 120, QTC 468. No MT prolongation, no QTC prolongation, no ST or T-wave changes noted. EKG compared to for every 01/10/2019 showing no changes. Overall, this EKG is unremarkable - Related Data Home Medications Medication Instructions Recorded Confirmed Carvedilol [Coreg] 6.25 mg PO BID@0800,1700 02/23/15 01/04/19 Sodium Bicarbonate 325 mg PO TID@0800,1400,199908/06/16 01/04/19 Atorvastatin [Lipitor] 40 mg PO HS 11/21/17 01/04/19 Calcium Acetate [PhosLo] 667 mg PO TID@0800,1400,199911/21/17 01/04/19 DULoxetine HCL [Cymbalta] 30 mg PO BID@0800,1700 11/21/17 01/04/19 Ferrous Sulfate [Iron (65 MG 325 mg PO DAILY@1700 11/21/17 01/04/19 Elemental)] Fluticasone Propionate [Flovent 2 puff INHALATION RT-BID 11/21/17 01/04/19 Hfa 110mcg] Insulin Aspart [NovoLOG Flexpen] 7 unit SQ AC-TID 11/21/17 01/04/19 Levothyroxine Sodium [Synthroid] 175 mcg PO DAILY@0600 11/21/17 01/04/19 Montelukast [Singulair] 10 mg PO HS 11/21/17 01/04/19 Polyethylene Glycol 3350 [Miralax] 17 gm PO DAILY 11/21/17 01/04/19 Acetaminophen [Tylenol] 650 mg PO Q4H PRN 08/19/18 01/04/19 Albuterol Nebulized [Ventolin 2.5 mg INHALATION RT-QID PRN 08/19/18 01/04/19 Nebulized] Bisacodyl [Dulcolax] 10 mg RECTAL DAILY PRN 08/19/18 01/04/19 Calcium Carbonate [Tums] 1,000 mg PO TID PRN 08/19/18 01/04/19 Dextran 70/Hypromellose [Genteal 1 drop BOTH EYES QID PRN 08/19/18 01/04/19 Tears 0.1%-0.3% Drop] Insulin Degludec [Tresiba] 37 units SQ HS 08/19/18 01/04/19 Mag Hydrox/Al Hydrox/Simeth 30 ml PO DAILY PRN 08/19/18 01/04/19 [Maalox] Pantoprazole Sodium [Protonix] 40 mg PO DAILY 08/19/18 01/04/19 Sennosides [Senna] 8.6 mg PO BID@0800,1700 08/19/18 01/04/19 Allopurinol [Zyloprim] 300 mg PO DAILY 01/04/19 01/04/19 Cephalexin [Keflex] 500 mg PO Q6HR 01/04/19 01/04/19 Epoetin Russ [Epogen] 20,000 unit SQ WE 01/04/19 01/04/19 Furosemide [Lasix] 20 mg PO DAILY@0800 01/04/19 01/04/19 Nystatin 100,000Unit/gm Cream 1 applic TOPICAL QID 01/04/19 01/04/19 [Mycostatin Cream] Sucralfate [Carafate] 1 gm PO QID@06,11,1730,2130 01/04/19 01/04/19 Previous Rx's Medication Instructions Recorded Gabapentin [Neurontin] 400 mg PO TID@0800,1400,2000 #9 cap 08/21/18 oxyCODONE HCL [OxyIR] 5 mg PO Q4H PRN #18 tab 08/21/18 Allergies Allergy/AdvReac Type Severity Reaction Status Date / Time No Known Allergies Allergy Verified 01/04/19 21:25 Review of Systems ROS Statement: Those systems with pertinent positive or pertinent negative responses have been documented in the HPI. ROS Other: All systems not noted in ROS Statement are negative. Past Medical History Past Medical History: Asthma, Coronary Artery Disease (CAD), Cancer, Heart Failure, COPD, Diabetes Mellitus, GI Bleed, Hyperlipidemia, Hypertension, Myocardial Infarction ([place]), Osteoarthritis (OA), Pulmonary Embolus ([place]), Renal Disease, Rheumatoid Arthritis (RA), Sleep Apnea/CPAP/BIPAP, Syncope, Thyroid Disorder Additional Past Medical History / Comment(s): IDDM type II poorly controlled,uses cpap bilateral peripheral neuropathy bilateral hands/feet, CKD , UTIs, legally blind bilaterally-sees minimally, thyroid cancer with surgery, goiter, hashimotos, diverticular disease, 2013 upper and lower GI bleeds with blood loss anemia, gout, R humeral fracture with surgery, occasionally bladder incont.past falls, "lt ankle broke 3 places-SX DONE. pt stated "not walking but able to stand and pivot with med boot on," Last Myocardial Infarction Date:: 2009 History of Any Multi-Drug Resistant Organisms: None Reported Past Surgical History: Adenoidectomy, Back Surgery, Cholecystectomy, Heart Catheterization With Stent, Tonsillectomy Additional Past Surgical History / Comment(s): PCI with stent 2009, low back wright rgery, total R shoulder and total R knee arthroplasties, bilateral hand trigger finger surgeries, EGD, colonoscopy, L eye laser eye surgery for bleed, thyroidectomy.lt tib fib fx-plate and screws. Past Anesthesia/Blood Transfusion Reactions: No Reported Reaction Additional Past Anesthesia/Blood Transfusion Reaction / Comment(s): Pt has received blood in past without reaction. Date of Last Stent Placement:: 2009 Past Psychological History: Anxiety, Depression Smoking Status: Never smoker Past Alcohol Use History: None Reported Past Drug Use History: None Reported - Past Family History Mother Family Medical History: Asthma, CVA/TIA, Seizure Disorder Additional Family Medical History / Comment(s): epilepsy Father Family Medical History: COPD, Diabetes Mellitus Additional Family Medical History / Comment(s): many heart problems General Exam Limitations: no limitations Course Vital Signs 01/04/19 21:24 Temperature 98.5 F Pulse Rate 69 Respiratory 18 Rate Blood Pressure 179/80 O2 Sat by Pulse 94 L Oximetry Medical Decision Making - Lab Data Result diagrams: 01/04/19 22:08 01/04/19 22:08 Lab Results 01/04/19 01/04/19 01/04/19 Range/Units 22:08 22:08 22:08 WBC 6.2 (3.8-10.6) k/uL RBC 3.86 (3.80-5.40) m/uL Hgb 11.3 L (11.4-16.0) gm/dL Hct 35.6 (34.0-46.0) % MCV 92.1 (80.0-100.0) fL MCH 29.2 (25.0-35.0) pg MCHC 31.7 (31.0-37.0) g/dL RDW 15.6 H (11.5-15.5) % Plt Count 143 L (150-450) k/uL Neutrophils % 64 % Lymphocytes % 25 % Monocytes % 6 % Eosinophils % 3 % Basophils % 0 % Neutrophils # 3.9 (1.3-7.7) k/uL Lymphocytes # 1.5 (1.0-4.8) k/uL Monocytes # 0.4 (0-1.0) k/uL Eosinophils # 0.2 (0-0.7) k/uL Basophils # 0.0 (0-0.2) k/uL PT 9.4 (9.0-12.0) sec INR 0.9 (<1.2) APTT 23.6 (22.0-30.0) sec Sodium 140 (137-145) mmol/L Potassium 4.7 (3.5-5.1) mmol/L Chloride 104 (98-107) mmol/L Carbon Dioxide 31 H (22-30) mmol/L Anion Gap 5 mmol/L BUN 60 H (7-17) mg/dL Creatinine 2.17 H (0.52-1.04) mg/dL Est GFR (CKD-EPI)AfAm 27 (>60 ml/min/1.73 sqM) Est GFR (CKD-EPI)NonAf 24 (>60 ml/min/1.73 sqM) Glucose 110 H (74-99) mg/dL Calcium 9.4 (8.4-10.2) mg/dL Magnesium 2.5 H (1.6-2.3) mg/dL Total Bilirubin 0.3 (0.2-1.3) mg/dL AST 28 (14-36) U/L ALT 14 (9-52) U/L Alkaline Phosphatase 90 (38-126) U/L Troponin I (0.000-0.034) ng/mL Total Protein 6.6 (6.3-8.2) g/dL Albumin 3.3 L (3.5-5.0) g/dL 01/04/19 Range/Units 22:08 WBC (3.8-10.6) k/uL RBC (3.80-5.40) m/uL Hgb (11.4-16.0) gm/dL Hct (34.0-46.0) % MCV (80.0-100.0) fL MCH (25.0-35.0) pg MCHC (31.0-37.0) g/dL RDW (11.5-15.5) % Plt Count (150-450) k/uL Neutrophils % % Lymphocytes % % Monocytes % % Eosinophils % % Basophils % % Neutrophils # (1.3-7.7) k/uL Lymphocytes # (1.0-4.8) k/uL Monocytes # (0-1.0) k/uL Eosinophils # (0-0.7) k/uL Basophils # (0-0.2) k/uL PT (9.0-12.0) sec INR (<1.2) APTT (22.0-30.0) sec Sodium (137-145) mmol/L Potassium (3.5-5.1) mmol/L Chloride (98-107) mmol/L Carbon Dioxide (22-30) mmol/L Anion Gap mmol/L BUN (7-17) mg/dL Creatinine (0.52-1.04) mg/dL Est GFR (CKD-EPI)AfAm (>60 ml/min/1.73 sqM) Est GFR (CKD-EPI)NonAf (>60 ml/min/1.73 sqM) Glucose (74-99) mg/dL Calcium (8.4-10.2) mg/dL Magnesium (1.6-2.3) mg/dL Total Bilirubin (0.2-1.3) mg/dL AST (14-36) U/L ALT (9-52) U/L Alkaline Phosphatase (38-126) U/L Troponin I 0.033 (0.000-0.034) ng/mL Total Protein (6.3-8.2) g/dL Albumin (3.5-5.0) g/dL Disposition Clinical Impression: Unstable angina Disposition: ADMITTED IP TO THIS HOSP Condition: Fair Referrals: Cristiano East MD [Primary Care Provider] - 1-2 days Decision Time: 23:23
--- NOTE | 2019-01-04 22:43 | XR ---
EXAM: XR Chest, 2 Views CLINICAL HISTORY: ITS.REASON XR Reason: Chest Pain TECHNIQUE: Frontal and lateral views of the chest. COMPARISON: 04/22/18 x-ray IMPRESSION: Severe cardiomegaly. Small opacity in the right lower lobe, possibly subsegmental atelectasis or aspiration. No pleural effusion.
[2019-01-04 22:45] LABS: Basophils % (A) 0 %; Eosinophils # (A) 0.2 k/uL (0-0.7); Eosinophils % (A) 3 %; HCT 35.6 % (34.0-46.0); HGB 11.3 gm/dL (11.4-16.0); Lymphocytes # (A) 1.5 k/uL (1.0-4.8); Lymphocytes % (A) 25 %; MCH 29.2 pg (25.0-35.0); MCHC 31.7 g/dL (31.0-37.0); MCV 92.1 fL (80.0-100.0); Mean Platelet Volume 7.7; Monocytes # (A) 0.4 k/uL (0-1.0); Monocytes % (A) 6 %; Neutrophils # (A) 3.9 k/uL (1.3-7.7); Neutrophils % (A) 64 %; Platelet Count 143 k/uL (150-450); RBC 3.86 m/uL (3.80-5.40); RDW 15.6 % (11.5-15.5); WBC 6.2 k/uL (3.8-10.6)
[2019-01-04 22:53] LABS: INR 0.9 (<1.2); Partial Thromboplastin Time 23.6 sec (22.0-30.0); Prothrombin Time 9.4 sec (9.0-12.0)
[2019-01-04 23:00] LABS: Albumin 3.3 g/dL (3.5-5.0); Calcium 9.4 mg/dL (8.4-10.2); Magnesium 2.5 mg/dL (1.6-2.3); Potassium 4.7 mmol/L (3.5-5.1); Total Bilirubin 0.3 mg/dL (0.2-1.3); Total Protein 6.6 g/dL (6.3-8.2)
[2019-01-04] MEDS ORDERED: HEPARIN SODIUM,PORCINE 5,000 UNIT/ML 1 ML VIAL IV PRN (23:21)
[2019-01-04] MEDS ORDERED: HEPARIN SODIUM,PORCINE 5,000 UNIT/ML 1 ML VIAL IV ONE (23:21)
[2019-01-04] MEDS ORDERED: NITROGLYCERIN SL TABS 0.4 MG TAB SUBLINGUAL PRN (23:24)
[2019-01-04] MEDS ORDERED: NITROGLYCERIN OINT 1 INCH/GM PACKET TOPICAL STA (23:26)
[2019-01-04] MEDS ORDERED: HEPARIN SOD,PORK IN 0.45% NACL 25,000 UNIT in 0.45% NACL 1 250ML.BAG IV SCH (23:30)
[2019-01-04] MEDS ORDERED: LORazepam 2 MG/ML INJ IV STA (23:38)
[2019-01-05 05:04] LABS: Cholesterol 128 mg/dL (<200); HDL Cholesterol 45 mg/dL (40-60); LDL Cholesterol,Calculated 68 mg/dL (0-99); Triglycerides 73 mg/dL (<150)
[2019-01-05 06:36] LABS: Glucose,Whole Blood 105 mg/dL (75-99)
[2019-01-05] MEDS ORDERED: ASPIRIN 325 MG TAB PO SCH (09:00)
--- NOTE | 2019-01-05 11:03 | P.CRDCN ---
History of Present Illness History of present illness: This is a pleasant 63-year-old female past medical history significant for coronary artery disease status post stent placement to the proximal LAD in 2011, hypertension, dyslipidemia, diabetes mellitus, COPD, obstructive sleep apnea, chronic kidney disease and history of PE in the past. She is to follow the office Dr. Myles that hasn't followed up since 2011. We have asked her in consultation secondary to chest discomfort. She presented to the hospital yesterday with symptoms of chest discomfort yesterday while sitting down. She states it started out feeling like indigestion and burning in the midsternal region that radiated up to the base of her neck. These symptoms lasted for approximately 3 minutes and subsided on their own. A couple of minutes later the symptoms came back again this time worsening in intensity and this time radiated more into the jaw and the upper back. She denies associated shortness of breath, dizziness, nausea, vomiting or palpitations. She is currently residing at [facility] for rehabilitation after a leg injury. EMS was called. She continued to have chest discomfort when EMS arrived and was given sublingual nitroglycerin. This did improve her symptoms. She states that no further symptoms of chest discomfort since arriving at the hospital. EKG reveals sinus mechanism, first-degree AV block, left axis deviation and left bundle branch block. Chest x-ray reveals cardiomegaly, small [place] in the right lower lobe possible atelectasis versus aspiration with no evidence of pleural effusion. Laboratory data reviewed, WBC 6.2, hemoglobin 11.3, platelets 143, sodium 140, potassium 4.7, creatinine 2.17 with a GFR of 24, magnesium 2.5, troponin 0.033, 0.038, LDL 68 and HDL 45. Current cardiac medications include atorvastatin 40 mg daily, Lasix 20 mg daily, carvedilol 6.25 mg twice a day. Most recent echocardiogram obtained July 2018 reveals impaired LV systolic function with ejection fraction 40-45%, septal and apical hypokinesia, mild aortic regurgitation, moderate mitral regurgitation and trace tricuspid regurg itation. At the time of my exam: CONSTITUTIONAL: Denies fever. Denies chills. EYES: Denies blurred vision. Denies vision changes. Denies eye pain. EARS, NOSE, MOUTH & THROAT: Denies headache. Denies sore throat. Denies ear pain. CARDIOVASCULAR: Denies chest pain. Denies shortness of breath. Denies orthopnea. Denies PND. Denies palpitations. RESPIRATORY: Denies cough. GASTROINTESTINAL: Denies abdominal pain. Denies diarrhea. Denies constipation. Denies nausea. Denies vomiting. MUSCULOSKELETAL: Denies myalgias. INTEGUMENTARY: Denies pruitis. Denies rash. NEUROLOGIC: Denies numbness. Denies tingling. Denies weakness. PSYCHIATRIC: Denies anxiety. Denies depression. ENDOCRINE: Denies fatigue. Denies weight change. Denies polydipsia. Denies polyurina. GENITOURINARY: Denies burning, hematuria or urgency with micturation. HEMATOLOGIC: Denies history of anemia. Denies bleeding. Blood pressure 164/82 heart rate 67 afebrile maintaining oxygen saturation on nasal cannula GENERAL: This is a 63-year-old female in no apparent distress at the time of my examination. HEENT: Head is atraumatic, normocephalic. Pupils are equal, round. Sclerae anicteric. Conjunctivae are clear. Mucous membranes of the mouth are moist. Neck is supple. There is no jugular venous distention. No carotid bruit is heard. LUNGS: Clear to auscultation no wheezes, rales or rhonchi. No chest wall tenderness is noted on palpation or with deep breathing. HEART: Regular rate and rhythm with systolic ejection murmur at the left sternal border, no rubs or gallops. S1 and S2 heard. ABDOMEN: Soft, nontender. Bowel sounds are heard. No organomegaly noted. EXTREMITIES: No evidence of peripheral edema and no calf tenderness noted. VASCULAR: Radial and dorsalis pedis pulses palpated, no evidence of clubbing. NEUROLOGIC: Patient is awake, alert and oriented x3. ASSESSMENT Chest pain, suggestive of unstable angina. Mild troponin elevation, unclear if related to NSTEMI or chronic kidney disease. History of coronary artery disease Hypertension Dyslipidemia COPD Chronic kidney disease Diabetes mellitus PLAN Continue to obtain serial cardiac enzymes to rule out an acute event.Continue heparin infusion. Repeat limited echo to assess LV function. Symptoms are concerning and she may require cardiac catheterization depending on enzymes and LV function. However, due to chronic kidney disease we will request an opinion from her senior living sales counselor. Resume coreg, atorvastatin, lasix and aspirin daily as previously ordered. Further recommendations to follow based on clinical course. Thank you kindly for this consultation. Nurse Practitioner note has been reviewed, I agree with a documented findings an d plan of care. Patient was seen and examined. Past Medical History Past Medical History: Asthma, Coronary Artery Disease (CAD), Cancer, Heart Failure, COPD, Diabetes Mellitus, GI Bleed, Hyperlipidemia, Hypertension, Myocardial Infarction ([place]), Osteoarthritis (OA), Pulmonary Embolus (PE), Renal Disease, Rheumatoid Arthritis (RA), Sleep Apnea/CPAP/BIPAP, Syncope, Thyroid Disorder Additional Past Medical History / Comment(s): IDDM type II poorly controlled,uses cpap bilateral peripheral neuropathy bilateral hands/feet, CKD , UTIs, legally blind bilaterally-sees minimally, thyroid cancer with surgery, goiter, hashimotos, diverticular disease, 2013 upper and lower GI bleeds with blood loss anemia, gout, R humeral fracture with surgery, occasionally bladder incont.past falls, "lt ankle broke 3 places-SX DONE. pt stated "not walking but able to stand and pivot with med boot on," Last Myocardial Infarction Date:: 2009 History of Any Multi-Drug Resistant Organisms: None Reported Past Surgical History: Adenoidectomy, Back Surgery, Cholecystectomy, Heart Catheterization With Stent, Tonsillectomy Additional Past Surgical History / Comment(s): PCI with stent 2009, low back surgery, total R shoulder and total R knee arthroplasties, bilateral hand trigger finger surgeries, EGD, colonoscopy, L eye laser eye surgery for bleed, thyroidectomy.lt tib fib fx-plate and screws. Past Anesthesia/Blood Transfusion Reactions: No Reported Reaction Additional Past Anesthesia/Blood Transfusion Reaction / Comment(s): Pt has received blood in past without reaction. Date of Last Stent Placement:: 2009 Past Psychological History: Anxiety, Depression Additional Psychological History / Comment(s): Pt resides at [facility] currently. pt stated "not walking but able to stand and pivot (while wearing medi boot)to w/c. Smoking Status: Never smoker Past Alcohol Use History: None Reported Past Drug Use History: None Reported - Past Family History Mother Family Medical History: Asthma, CVA/TIA, Seizure Disorder Additional Family Medical History / Comment(s): epilepsy Father Family Medical History: COPD, Diabetes Mellitus Additional Family Medical History / Comment(s): many heart problems Medications and Allergies Home Medications Medication Instructions Recorded Confirmed Type Carvedilol [Coreg] 6.25 mg PO BID@0800,1700 02/23/15 01/04/19 History Sodium Bicarbonate 325 mg PO TID@0800,1400,199908/06/16 01/04/19 History Atorvastatin [Lipitor] 40 mg PO HS 11/21/17 01/04/19 History Calcium Acetate [PhosLo] 667 mg PO TID@0800,1400,199911/21/17 01/04/19 History DULoxetine HCL [Cymbalta] 30 mg PO BID@0800,1700 11/21/17 01/04/19 History Ferrous Sulfate [Iron (65 MG 325 mg PO DAILY@1700 11/21/17 01/04/19 History Elemental)] Fluticasone Propionate [Flovent 2 puff INHALATION RT-BID 11/21/17 01/04/19 History Hfa 110mcg] Insulin Aspart [NovoLOG Flexpen] 7 unit SQ AC-TID 11/21/17 01/04/19 History Levothyroxine Sodium [Synthroid] 175 mcg PO DAILY@0600 11/21/17 01/04/19 History Montelukast [Singulair] 10 mg PO HS 11/21/17 01/04/19 History Polyethylene Glycol 3350 [Miralax] 17 gm PO DAILY 11/21/17 01/04/19 History Acetaminophen [Tylenol] 650 mg PO Q4H PRN 08/19/18 01/04/19 History Albuterol Nebulized [Ventolin 2.5 mg INHALATION RT-QID PRN 08/19/18 01/04/19 History Nebulized] Bisacodyl [Dulcolax] 10 mg RECTAL DAILY PRN 08/19/18 01/04/19 History Calcium Carbonate [Tums] 1,000 mg PO TID PRN 08/19/18 01/04/19 History Dextran 70/Hypromellose [Genteal 1 drop BOTH EYES QID PRN 08/19/18 01/04/19 History Tears 0.1%-0.3% Drop] Insulin Degludec [Tresiba] 37 units SQ HS 08/19/18 01/04/19 History Mag Hydrox/Al Hydrox/Simeth 30 ml PO DAILY PRN 08/19/18 01/04/19 History [Maalox] Pantoprazole Sodium [Protonix] 40 mg PO DAILY 08/19/18 01/04/19 History Sennosides [Senna] 8.6 mg PO BID@0800,1700 08/19/18 01/04/19 History Gabapentin [Neurontin] 400 mg PO TID@0800,1400,2000 #9 cap 08/21/18 01/04/19 Rx oxyCODONE HCL [OxyIR] 5 mg PO Q4H PRN #18 tab 08/21/18 01/04/19 Rx Allopurinol [Zyloprim] 300 mg PO DAILY 01/04/19 01/04/19 History Cephalexin [Keflex] 500 mg PO Q6HR 01/04/19 01/04/19 History Epoetin Russ [Epogen] 20,000 unit SQ WE 01/04/19 01/04/19 History Furosemide [Lasix] 20 mg PO DAILY@0800 01/04/19 01/04/19 History Nystatin 100,000Unit/gm Cream 1 applic TOPICAL QID 01/04/19 01/04/19 History [Mycostatin Cream] Sucralfate [Carafate] 1 gm PO QID@06,11,1730,2130 01/04/19 01/04/19 History Allergies Allergy/AdvReac Type Severity Reaction Status Date / Time No Known Allergies Allergy Verified 01/04/19 21:25 Physical Exam Vitals: Vital Signs Temp Pulse Pulse Resp BP BP Pulse Ox 01/05/19 07:37 98 01/05/19 06:58 97.5 F L 67 18 164/82 98 01/05/19 04:00 97.9 F 88 14 152/71 99 01/05/19 00:06 98.0 F 82 18 155/81 98 01/05/19 00:00 97.7 F 77 15 155/92 99 01/04/19 21:24 98.5 F 69 18 179/80 94 L Intake and Output 01/04/19 01/05/19 01/05/19 22:59 06:59 14:59 Intake Total 0 Output Total 1100 Balance -1100 Intake: Oral 0 Output: Urine 1100 Other: # Voids 1 Weight 127.459 kg Results 01/04/19 22:08 01/04/19 22:08 Cardiac Enzymes 01/04/19 01/04/19 01/05/19 Range/Units 22:08 22:08 04:23 AST 28 (14-36) U/L Troponin I 0.033 0.038 H* (0.000-0.034) ng/mL Coagulation 01/04/19 Range/Units 22:08 PT 9.4 (9.0-12.0) sec APTT 23.6 (22.0-30.0) sec Lipids 01/05/19 Range/Units 04:23 Triglycerides 73 (<150) mg/dL Cholesterol 128 (<200) mg/dL HDL Cholesterol 45 (40-60) mg/dL CBC 01/04/19 Range/Units 22:08 WBC 6.2 (3.8-10.6) k/uL RBC 3.86 (3.80-5.40) m/uL Hgb 11.3 L (11.4-16.0) gm/dL Hct 35.6 (34.0-46.0) % Plt Count 143 L (150-450) k/uL Comprehensive Metabolic Panel 01/04/19 Range/Units 22:08 Sodium 140 (137-145) mmol/L Potassium 4.7 (3.5-5.1) mmol/L Chloride 104 (98-107) mmol/L Carbon Dioxide 31 H (22-30) mmol/L BUN 60 H (7-17) mg/dL Creatinine 2.17 H (0.52-1.04) mg/dL Glucose 110 H (74-99) mg/dL Calcium 9.4 (8.4-10.2) mg/dL AST 28 (14-36) U/L ALT 14 (9-52) U/L Alkaline Phosphatase 90 (38-126) U/L Total Protein 6.6 (6.3-8.2) g/dL Albumin 3.3 L (3.5-5.0) g/dL Current Medications Generic Name Dose Route Start Last Admin Trade Name Kdq PRN Reason Stop Dose Admin Aspirin 325 mg 01/05/19 09:00 Aspirin PO DAILY [facility] Atorvastatin Calcium 40 mg 01/05/19 21:00 Lipitor PO HS KUNAL Heparin Sodium (Porcine) 0 unit 01/04/19 23:21 Heparin IV PER PROTOCOL PRN Low PTT Protocol Heparin Sodium/Sodium Chloride 250 mls @ 9.993 mls/hr 01/04/19 23:30 01/04/19 23:55 25,000 unit/ Sodium Chloride IV 7.84 units/kg/hr .Q24H KUNAL 9.993 mls/hr Administration Protocol 7.84 UNITS/KG/HR Nitroglycerin 0.4 mg 01/04/19 23:24 Nitrostat SUBLINGUAL Q5M PRN Chest Pain Intake and Output 01/04/19 01/05/19 01/05/19 22:59 06:59 14:59 Intake Total 0 Output Total 1100 Balance -1100 Intake: Oral 0 Output: Urine 1100 Other: # Voids 1 Weight 127.459 kg 01/04/19 22:08 01/04/19 22:08
[2019-01-05] MEDS ORDERED: ARTIFICIAL TEARS-HYPROMELLOSE DROPS 15 ML BTL BOTH EYES PRN (11:11)
[2019-01-05] MEDS ORDERED: ALBUTEROL NEBULIZED 2.5 MG/3 ML INHALATION PRN (11:11)
[2019-01-05] MEDS ORDERED: BISACODYL 10 MG SUPP RECTAL PRN (11:11)
[2019-01-05] MEDS: CARVEDILOL 6.25 MG TAB PO SCH ×2 (11:37→18:00)
[2019-01-05] MEDS: CEPHALEXIN 500 MG CAP PO SCH ×3 (11:37→21:16)
[2019-01-05] MEDS: FUROSEMIDE 20 MG TAB PO SCH (11:39)
[2019-01-05] MEDS: CALCIUM CARBONATE 500 MG CHEWABLE PO PRN ×2 (11:39→17:59)
[2019-01-05] MEDS: NYSTATIN 100,000UNIT/GM CREAM 30 GM TUBE TOPICAL SCH ×3 (11:41→23:06)
[2019-01-05 11:45] LABS: Glucose,Whole Blood 114 mg/dL (75-99)
[2019-01-05] MEDS: ISOSORBIDE MONONITRATE ER 30 MG TAB.ER.24H PO SCH (13:30)
[2019-01-05] MEDS: GABAPENTIN 400 MG CAP PO SCH ×2 (13:30→21:16)
[2019-01-05] MEDS: SODIUM BICARBONATE TAB 650 MG TAB PO SCH ×2 (13:31→21:16)
[2019-01-05] MEDS: CALCIUM ACETATE 667 MG CAP PO SCH ×2 (13:31→21:16)
[2019-01-05] MEDS: ACETAMINOPHEN TAB 325 MG TAB PO PRN (13:34)
[2019-01-05 16:56] LABS: Glucose,Whole Blood 120 mg/dL (75-99)
[2019-01-05] MEDS: SENNOSIDES 8.6 MG TAB PO SCH (17:59)
[2019-01-05] MEDS: SUCRALFATE 1 GM TAB PO SCH ×2 (17:59→21:16)
[2019-01-05] MEDS: FERROUS SULFATE 325 MG TAB PO SCH (17:59)
[2019-01-05] MEDS: DULoxetine HCL 30 MG CAPSULE.DR PO SCH (18:00)
--- NOTE | 2019-01-05 18:28 | P.HPIM ---
History of Present Illness H&P Date: 01/05/19 Chief Complaint: Chest pain, unstable angina, CAD, CHF, chronic kidney disease. 64-year-old female overweight who I have known for few years has been in [facility] for the last year and half known to have history of coronary disease with PCI and stent placement of the LAD back in 2011 history of hypertension hyperlipidemia chronic kidney disease COPD obstructive sleep apnea and history of PE in the past his non-to Dr. Myles in the past patient presented from [facility] to the emergency department at [facility] on 714 with complaint of midsternal chest pain started while she was sitting down felt mild lightheadedness and dizziness with mild palpitation cold sweat and nausea feeling the intensive her symptoms become much worse with exertion had radiated to the jaw and to the back slightly developed to have mild increased shortness of breath. Ended up coming to the emergency department her EKG showed first- degree AV block with left axis deviation left bundle-branch block with no major ST or T elevation troponin initially came back negative with mildly elevated creatinine at 2.17 with GFR of 24 only close to her baseline from last time. Patient had high suspicion for coronary artery disease and unstable angina with the current symptom patient was heparinize nitro and admitted to the hospital will be seen cardiology troponin will be repeated if elevated troponin patient might benefit from going for heart cath. The last ejection fraction from July 2018 was only 40 percentile with septal and apical hypokinesia and moderate mitral regurgitation at the time and was planned for medical management at the time. Review of Systems CONSTITUTIONAL: Well-developed no acute respiratory distress. Morbidly overwei ght EYES: No icterus sclerae, no conjunctivitis. EARS, NOSE, MOUTH, THROAT, and FACE: No sore throat, lymphadenopathy, carotid bruits or deformity. RESPIRATORY: Mild shortness of breath cough wheezes. CARDIOVASCULAR: Positive chest pain positive PND orthopnea palpitation. GASTROINTESTINAL: Abdominal discomfort with nausea no vomiting no diarrhea., No GI Bleed, no distention or masses. GENITOURINARY: Recurrent UTI with polyuria and incontinence., no kidney stones. INTEGUMENT/BREAST: Negative for any muscular injury with mild osteoarthritis.. HEMATOLOGIC/LYMPHATIC: Negative for bleed or purpura. MUSCULOSKELTAL: Generalized back and muscle and joint pain.. NEURLOGICAL: No LOC, Sz or syncope, blurred vision dizziness or abnormality.. Abtb-oz-djgruixs neuropathy. BEHAVIORAL/PSYCH: Negative. ENDOCRINE: Negative. Past Medical History Past Medical History: Asthma, Coronary Artery Disease (CAD), Cancer, Heart Failure, COPD, Diabetes Mellitus, GI Bleed, Hyperlipidemia, Hypertension, Myocardial Infarction ([place]), Osteoarthritis (OA), Pulmonary Embolus (PE), Renal Disease, Rheumatoid Arthritis (RA), Sleep Apnea/CPAP/BIPAP, Syncope, Thyroid Disorder Additional Past Medical History / Comment(s): IDDM type II poorly controlled,uses cpap bilateral peripheral neuropathy bilateral hands/feet, CKD , UTIs, legally blind bilaterally-sees minimally, thyroid cancer with surgery, goiter, hashimotos, diverticular disease, 2013 upper and lower GI bleeds with blood loss anemia, gout, R humeral fracture with surgery, occasionally bladder i ncont.past falls, "lt ankle broke 3 places-SX DONE. pt stated "not walking but able to stand and pivot with med boot on," Last Myocardial Infarction Date:: 2009 History of Any Multi-Drug Resistant Organisms: None Reported Past Surgical History: Adenoidectomy, Back Surgery, Cholecystectomy, Heart Catheterization With Stent, Tonsillectomy Additional Past Surgical History / Comment(s): PCI with stent 2009, low back surgery, total R shoulder and total R knee arthroplasties, bilateral hand trigger finger surgeries, EGD, colonoscopy, L eye laser eye surgery for bleed, thyroidectomy.lt tib fib fx-plate and screws. Past Anesthesia/Blood Transfusion Reactions: No Reported Reaction Additional Past Anesthesia/Blood Transfusion Reaction / Comment(s): Pt has received blood in past without reaction. Date of Last Stent Placement:: 2009 Past Psychological History: Anxiety, Depression Additional Psychological History / Comment(s): Pt resides at [facility] currently. pt stated "not walking but able to stand and pivot (while wearing medi boot)to w/c. Smoking Status: Never smoker Past Alcohol Use History: None Reported Past Drug Use History: None Reported - Past Family History Mother Family Medical History: Asthma, CVA/TIA, Seizure Disorder Additional Family Medical History / Comment(s): epilepsy Father Family Medical History: COPD, Diabetes Mellitus Additional Family Medical History / Comment(s): many heart problems Medications and Allergies Home Medications Medication Instructions Recorded Confirmed Type Carvedilol [Coreg] 6.25 mg PO BID@0800,1700 02/23/15 01/04/19 History Sodium Bicarbonate 325 mg PO TID@0800,1400,199908/06/16 01/04/19 History Atorvastatin [Lipitor] 40 mg PO HS 11/21/17 01/04/19 History Calcium Acetate [PhosLo] 667 mg PO TID@0800,1400,199911/21/17 01/04/19 History DULoxetine HCL [Cymbalta] 30 mg PO BID@0800,1700 11/21/17 01/04/19 History Ferrous Sulfate [Iron (65 MG 325 mg PO DAILY@1700 11/21/17 01/04/19 History Elemental)] Fluticasone Propionate [Flovent 2 puff INHALATION RT-BID 11/21/17 01/04/19 History Hfa 110mcg] Insulin Aspart [NovoLOG Flexpen] 7 unit SQ AC-TID 11/21/17 01/04/19 History Levothyroxine Sodium [Synthroid] 175 mcg PO DAILY@0600 11/21/17 01/04/19 History Montelukast [Singulair] 10 mg PO HS 11/21/17 01/04/19 History Polyethylene Glycol 3350 [Miralax] 17 gm PO DAILY 11/21/17 01/04/19 History Acetaminophen [Tylenol] 650 mg PO Q4H PRN 08/19/18 01/04/19 History Albuterol Nebulized [Ventolin 2.5 mg INHALATION RT-QID PRN 08/19/18 01/04/19 History Nebulized] Bisacodyl [Dulcolax] 10 mg RECTAL DAILY PRN 08/19/18 01/04/19 History Calcium Carbonate [Tums] 1,000 mg PO TID PRN 08/19/18 01/04/19 History Dextran 70/Hypromellose [Genteal 1 drop BOTH EYES QID PRN 08/19/18 01/04/19 History Tears 0.1%-0.3% Drop] Insulin Degludec [Tresiba] 37 units SQ HS 08/19/18 01/04/19 History Mag Hydrox/Al Hydrox/Simeth 30 ml PO DAILY PRN 08/19/18 01/04/19 History [Maalox] Pantoprazole Sodium [Protonix] 40 mg PO DAILY 08/19/18 01/04/19 History Sennosides [Senna] 8.6 mg PO BID@0800,1700 08/19/18 01/04/19 History Gabapentin [Neurontin] 400 mg PO TID@0800,1400,2000 #9 cap 08/21/18 01/04/19 Rx oxyCODONE HCL [OxyIR] 5 mg PO Q4H PRN #18 tab 08/21/18 01/04/19 Rx Allopurinol [Zyloprim] 300 mg PO DAILY 01/04/19 01/04/19 History Cephalexin [Keflex] 500 mg PO Q6HR 01/04/19 01/04/19 History Epoetin Russ [Epogen] 20,000 unit SQ WE 01/04/19 01/04/19 History Furosemide [Lasix] 20 mg PO DAILY@0800 01/04/19 01/04/19 History Nystatin 100,000Unit/gm Cream 1 applic TOPICAL QID 01/04/19 01/04/19 History [Mycostatin Cream] Sucralfate [Carafate] 1 gm PO QID@06,11,1730,2130 01/04/19 01/04/19 History Allergies Allergy/AdvReac Type Severity Reaction Status Date / Time No Known Allergies Allergy Verified 01/04/19 21:25 Physical Exam Vitals: Vital Signs Temp Pulse Pulse Resp BP BP Pulse Ox 01/05/19 16:00 97.3 F L 63 16 176/87 100 01/05/19 11:25 97.3 F L 69 18 148/75 99 01/05/19 07:37 98 01/05/19 06:58 97.5 F L 67 18 164/82 98 01/05/19 04:00 97.9 F 88 14 152/71 99 01/05/19 00:06 98.0 F 82 18 155/81 98 01/05/19 00:00 97.7 F 77 15 155/92 99 01/04/19 21:24 98.5 F 69 18 179/80 94 L Intake and Output 01/05/19 01/05/19 01/05/19 06:59 14:59 22:59 Intake Total 0 240 360 Output Total 1100 Balance -1100 240 360 Intake: Oral 0 240 360 Output: Urine 1100 Other: Voiding Method Bedside Commode Bedside Commode # Voids 1 2 3 General Appearance: Alert, cooperative, no distress, appears stated age. Morbidly overweight. Neck HEENT: Supple, no lymphadenopathy, no thyroid enlargement, no carotid bruits. Lungs: Decreased breath some bilaterally with fine rhonchi no crackles or wheezes. Chest Wall: Decrease expansion with deep inspiration no tenderness and no deformity was found on exam, no costochondral pain or discomfort. Heart: Regular rate and rhythm, S1, S2 positive street positive systolic murmur in the apex.. Back: Symmetric, no curvature, ROM normal, no CVA tenderness. Abdomen: Soft, non-tender, bowel sounds active all four quadrants, no masses, no organomegaly. Extremities: 1+ edema decreased pulse in the dorsalis pedis and posterior tibial. Pulses: 2+ and symmetric. Skin: Skin color, texture, tugor normal, no rashes or lesions. Neurologic: Alert oriented x3 cranial nerves II through XII intact, no motor deficit, no abnormal balance or gait. Results CBC & Chem 7: 01/04/19 22:08 01/04/19 22:08 Labs: Abnormal Lab Results - Last 24 Hours (Table) 01/04/19 01/04/19 01/05/19 Range/Units 22:08 22:08 04:23 Hgb 11.3 L (11.4-16.0) gm/dL RDW 15.6 H (11.5-15.5) % Plt Count 143 L (150-450) k/uL APTT (22.0-30.0) sec Carbon Dioxide 31 H (22-30) mmol/L BUN 60 H (7-17) mg/dL Creatinine 2.17 H (0.52-1.04) mg/dL Glucose 110 H (74-99) mg/dL POC Glucose (mg/dL) (75-99) mg/dL Magnesium 2.5 H (1.6-2.3) mg/dL Troponin I 0.038 H* (0.000-0.034) ng/mL Albumin 3.3 L (3.5-5.0) g/dL 01/05/19 01/05/19 01/05/19 Range/Units 06:34 07:31 11:44 Hgb (11.4-16.0) gm/dL RDW (11.5-15.5) % Plt Count (150-450) k/uL APTT 45.6 H (22.0-30.0) sec Carbon Dioxide (22-30) mmol/L BUN (7-17) mg/dL Creatinine (0.52-1.04) mg/dL Glucose (74-99) mg/dL POC Glucose (mg/dL) 105 H 114 H (75-99) mg/dL Magnesium (1.6-2.3) mg/dL Troponin I (0.000-0.034) ng/mL Albumin (3.5-5.0) g/dL 01/05/19 Range/Units 16:55 Hgb (11.4-16.0) gm/dL RDW (11.5-15.5) % Plt Count (150-450) k/uL APTT (22.0-30.0) sec Carbon Dioxide (22-30) mmol/L BUN (7-17) mg/dL Creatinine (0.52-1.04) mg/dL Glucose (74-99) mg/dL POC Glucose (mg/dL) 120 H (75-99) mg/dL Magnesium (1.6-2.3) mg/dL Troponin I (0.000-0.034) ng/mL Albumin (3.5-5.0) g/dL Thrombosis Risk Factor Assmnt - DVT/VTE Prophylaxis DVT/VTE Prophylaxis: Pharmacologic Prophylaxis ordered, Mechanical Prophylaxis ordered - Choose All That Apply Any of the Below Risk Factors Present?: Yes Each Factor Represents 1 point: Abnormal pulmonary function (COPD), Obesity (BMI >25), Swollen legs (current) Other Risk Factors: Yes Each Risk Factor Represents 2 Points: Age 61-74 years Each Risk Factor Represents 3 Points: Family history of DVT/PE, History of DVT/PE Thrombosis Risk Factor Assessment Total Risk Factor Score: 11 Thrombosis Risk Factor Assessment Level: High Risk Assessment and Plan Plan: 1 unstable angina: Typical chest pain with typical complain with known coronary artery disease and high risk factor, patient be admitted to the hospital will be seen cardiology CK with troponin 3 will be done if elevated troponin patient might benefit from going for heart cath otherwise repeat echocardiogram and continue medical management for now. 2 coronary artery disease: Post [place] in the past with PCI and stent placement of the LAD has been stable still on secondary prevention. 3 acute kidney injury, with chronic kidney disease stage III with worsening symptoms, patient will continue medical management repeat BUN/creatinine. 4 hypertension: Still on Coreg 6.25 mg twice a day. 5 hyperlipidemia: Remain on Lipitor 40 mg daily. 6 type 2 diabetes on insulin: Remain on NovoLog 7 units before meals meals with Trisiba 37 units at bedtime continue medication. 7 chronic congestive heart failure: Systolic dysfunction with mild diastolic component: Continue patient on diuretics along with Coreg continue to watch for any fluid overload. 8 hypothyroidism: Remain on levothyroxine 175 g daily. 9 chronic anemia: Iron deficiency still on iron supplement along with Procrit. 10 mild COPD: Remain on Flovent along with Ventolin and O2 as needed. 11 obstructive sleep apnea: On CPAP. 12 gout: With no flareup remain on allopurinol 300 mg daily. 13 chronic pain syndrome: Still on hydrocodone and oxycodone on an as-needed basis. 14 chronic depression: Remain on Cymbalta 30 mg twice a day. 15 chronic neuropathy: Has been on gabapentin 400 mg 3 times a day. 16 GI prophylaxis/GERD: Still on pantoprazole. 17 DVT prophylaxis: On heparin subcutaneous. CODE STATUS: Full code. Admit patient to observation status for 1-2 nights.
[2019-01-05] MEDS: FLUTICASONE 110 MCG INHALER INHALATION SCH (19:42)
[2019-01-05 20:13] LABS: Glucose,Whole Blood 196 mg/dL (75-99)
[2019-01-05] MEDS: ATORVASTATIN 40 MG TAB PO SCH (21:15)
[2019-01-05] MEDS: MONTELUKAST 10 MG TAB PO SCH (21:16)
[2019-01-05] MEDS: INSULIN DETEMIR (LEVEMIR) 100 UNIT/ML SYR SQ SCH (21:16)
[2019-01-06 06:33] LABS: Glucose,Whole Blood 72 mg/dL (75-99)
[2019-01-06] MEDS: FLUTICASONE 110 MCG INHALER INHALATION SCH ×2 (07:45→22:24)
[2019-01-06 08:24] LABS: Calcium 9.3 mg/dL (8.4-10.2); Potassium 4.5 mmol/L (3.5-5.1)
[2019-01-06] MEDS: PANTOPRAZOLE 40 MG TABLET PO SCH (08:39)
[2019-01-06] MEDS: CEPHALEXIN 500 MG CAP PO SCH ×3 (08:40→16:52)
[2019-01-06] MEDS: CALCIUM ACETATE 667 MG CAP PO SCH ×3 (08:40→21:46)
[2019-01-06] MEDS: SODIUM BICARBONATE TAB 650 MG TAB PO SCH (08:40)
[2019-01-06] MEDS: DULoxetine HCL 30 MG CAPSULE.DR PO SCH ×2 (08:40→16:52)
[2019-01-06] MEDS: FUROSEMIDE 20 MG TAB PO SCH (08:40)
[2019-01-06] MEDS: GABAPENTIN 400 MG CAP PO SCH ×3 (08:40→21:46)
[2019-01-06] MEDS: SUCRALFATE 1 GM TAB PO SCH ×4 (08:40→21:46)
[2019-01-06] MEDS: LEVOTHYROXINE 100 MCG TAB PO SCH (08:41)
[2019-01-06] MEDS: ISOSORBIDE MONONITRATE ER 30 MG TAB.ER.24H PO SCH (08:41)
[2019-01-06] MEDS: CARVEDILOL 6.25 MG TAB PO SCH ×2 (08:42→16:52)
[2019-01-06] MEDS: LEVOTHYROXINE 75 MCG TAB PO SCH (08:42)
[2019-01-06] MEDS: NYSTATIN 100,000UNIT/GM CREAM 30 GM TUBE TOPICAL SCH ×3 (08:42→16:53)
[2019-01-06] MEDS: SENNOSIDES 8.6 MG TAB PO SCH ×2 (08:42→16:52)
[2019-01-06] MEDS: POLYETHYLENE GLYCOL 3350 17 GM POWD.PACK PO SCH (08:42)
[2019-01-06] MEDS: ALLOPURINOL 300 MG TAB PO SCH (08:42)
[2019-01-06] MEDS ORDERED: ASPIRIN 81 MG PO SCH (09:00)
[2019-01-06] MEDS ORDERED: AMINOPHYLLINE 500 MG/20 ML VIAL IV PRN ×2 (09:07→10:27)
[2019-01-06] MEDS ORDERED: DIPYRIDAMOLE 70 MG in SODIUM CHLORIDE 0.9% 36 ML IV ONE (09:07)
[2019-01-06] MEDS ORDERED: CAFFEINE CITRATE 60 MG/3 ML VIAL IV PRN ×2 (09:07→10:27)
--- NOTE | 2019-01-06 10:02 | P.NPCON ---
History of Present Illness - Reason for Consult chronic renal failure - History of Present Illness Reason for consultation: Chronic kidney disease History of present illness: Patient is a 63-year-old female seen in renal consultation for chronic kidney disease. Patient was seen and examined in the observation unit. Patient has chronic kidney disease stage IV with baseline creatinine near 2. Asians c reatinine in November 2018 was 2.33. It is 1.91 today. Patient presented to the hospital with chest pain. Patient describes the pain as something heavy sitting on her chest. Patient states the pain started while she was doing a puzzle. She's had more episodes while in the hospital. No active chest pain currently. She does have history of coronary artery disease and has a stent in place. She also has history of diabetes mellitus. She scheduled for a stress test today. Good urine output. No hematuria or dysuria. No vomiting or diarrhea. Denies use of nonsteroidals. Hemodynamically stable. No other complaints at this time. Vital signs are stable. General: The patient appeared well nourished and normally developed. HEENT: Head exam is unremarkable. Neck is without jugular venous distension. LUNGS: Lungs are clear to auscultation and percussion. Breath sounds decreased. HEART: Rate and Rhythm are regular. First and second heart sounds normal. No murmurs, rubs or gallops. ABDOMEN: Abdominal exam reveals normal bowel sounds. Non-tender and non- distended. No evidence of peritonitis. EXTREMITITES: Trace edema. Past Medical History Past Medical History: Asthma, Coronary Artery Disease (CAD), Cancer, Heart Failure, COPD, Diabetes Mellitus, GI Bleed, Hyperlipidemia, Hypertension, Myocardial Infarction ([place]), Osteoarthritis (OA), Pulmonary Embolus ([place]), Renal Disease, Rheumatoid Arthritis (RA), Sleep Apnea/CPAP/BIPAP, Syncope, Thyroid Disorder Additional Past Medical History / Comment(s): IDDM type II poorly controlled,uses cpap bilateral peripheral neuropathy bilateral hands/feet, CKD , UTIs, legally blind bilaterally-sees minimally, thyroid cancer with surgery, goiter, hashimotos, diverticular disease, 2014 upper and lower GI bleeds with blood loss anemia, gout, R humeral fracture with surgery, occasionally bladder incont.past falls, "lt ankle broke 3 places-SX DONE. pt stated "not walking but able to stand and pivot with med boot on," Last Myocardial Infarction Date:: 2009 History of Any Multi-Drug Resistant Organisms: None Reported Past Surgical History: Adenoidectomy, Back Surgery, Cholecystectomy, Heart Catheterization With Stent, Tonsillectomy Additional Past Surgical History / Comment(s): PCI with stent 2009, low back surgery, total R shoulder and total R knee arthroplasties, bilateral hand trigger finger surgeries, EGD, colonoscopy, L eye laser eye surgery for bleed, thyroidectomy.lt tib fib fx-plate and screws. Past Anesthesia/Blood Transfusion Reactions: No Reported Reaction Additional Past Anesthesia/Blood Transfusion Reaction / Comment(s): Pt has received blood in past without reaction. Date of Last Stent Placement:: 2009 Past Psychological History: Anxiety, Depression Additional Psychological History / Comment(s): Pt resides at [facility] currently. pt stated "not walking but able to stand and pivot (while wearing medi boot)to w/c. Smoking Status: Never smoker Past Alcohol Use History: None Reported Past Drug Use History: None Reported - Past Family History Mother Family Medical History: Asthma, CVA/TIA, Seizure Disorder Additional Family Medical History / Comment(s): epilepsy Father Family Medical History: COPD, Diabetes Mellitus Additional Family Medical History / Comment(s): many heart problems Medications and Allergies Home Medications Medication Instructions Recorded Confirmed Type Carvedilol [Coreg] 6.25 mg PO BID@0800,1700 02/23/15 01/04/19 History Sodium Bicarbonate 325 mg PO TID@0800,1400,199908/06/16 01/04/19 History Atorvastatin [Lipitor] 40 mg PO HS 11/21/17 01/04/19 History Calcium Acetate [PhosLo] 667 mg PO TID@0800,1400,199911/21/17 01/04/19 History DULoxetine HCL [Cymbalta] 30 mg PO BID@0800,1700 11/21/17 01/04/19 History Ferrous Sulfate [Iron (65 MG 325 mg PO DAILY@169911/21/17 01/04/19 History Elemental)] Fluticasone Propionate [Flovent 2 puff INHALATION RT-BID 11/21/17 01/04/19 History Hfa 110mcg] Insulin Aspart [NovoLOG Flexpen] 7 unit SQ AC-TID 11/21/17 01/04/19 History Levothyroxine Sodium [Synthroid] 175 mcg PO DAILY@0600 11/21/17 01/04/19 History Montelukast [Singulair] 10 mg PO HS 11/21/17 01/04/19 History Polyethylene Glycol 3350 [Miralax] 17 gm PO DAILY 11/21/17 01/04/19 History Acetaminophen [Tylenol] 650 mg PO Q4H PRN 08/19/18 01/04/19 History Albuterol Nebulized [Ventolin 2.5 mg INHALATION RT-QID PRN 08/19/18 01/04/19 History Nebulized] Bisacodyl [Dulcolax] 10 mg RECTAL DAILY PRN 08/19/18 01/04/19 History Calcium Carbonate [Tums] 1,000 mg PO TID PRN 08/19/18 01/04/19 History Dextran 70/Hypromellose [Genteal 1 drop BOTH EYES QID PRN 08/19/18 01/04/19 History Tears 0.1%-0.3% Drop] Insulin Degludec [Tresiba] 37 units SQ HS 08/19/18 01/04/19 History Mag Hydrox/Al Hydrox/Simeth 30 ml PO DAILY PRN 08/19/18 01/04/19 History [Maalox] Pantoprazole Sodium [Protonix] 40 mg PO DAILY 08/19/18 01/04/19 History Sennosides [Senna] 8.6 mg PO BID@0800,1700 08/19/18 01/04/19 History Gabapentin [Neurontin] 400 mg PO TID@0800,1400,2000 #9 cap 08/21/18 01/04/19 Rx oxyCODONE HCL [OxyIR] 5 mg PO Q4H PRN #18 tab 08/21/18 01/04/19 Rx Allopurinol [Zyloprim] 300 mg PO DAILY 01/04/19 01/04/19 History Cephalexin [Keflex] 500 mg PO Q6HR 01/04/19 01/04/19 History Epoetin Russ [Epogen] 20,000 unit SQ WE 01/04/19 01/04/19 History Furosemide [Lasix] 20 mg PO DAILY@0800 01/04/19 01/04/19 History Nystatin 100,000Unit/gm Cream 1 applic TOPICAL QID 01/04/19 01/04/19 History [Mycostatin Cream] Sucralfate [Carafate] 1 gm PO QID@06,11,1730,2130 01/04/19 01/04/19 History Allergies Allergy/AdvReac Type Severity Reaction Status Date / Time No Known Allergies Allergy Verified 01/04/19 21:25 Physical Exam Vitals: Vital Signs Temp Pulse Resp BP BP Pulse Ox 01/06/19 08:00 60 18 01/06/19 06:54 97.5 F L 60 18 147/71 99 01/06/19 04:00 97.9 F 71 15 142/76 98 01/06/19 00:00 97.9 F 60 16 148/63 99 01/05/19 19:43 98 01/05/19 19:04 98.0 F 77 15 140/71 99 01/05/19 16:00 97.3 F L 63 16 176/87 100 01/05/19 11:25 97.3 F L 69 18 148/75 99 Intake and Output 01/05/19 01/06/19 01/06/19 22:59 06:59 14:59 Intake Total 360 Output Total 550 Balance -190 Intake: Oral 360 Output: Urine 550 Other: Voiding Method Bedside Commode Bedside Commode Bedside Commode # Voids 3 1 Results - Lab Results Most recent lab results Calcium 9.3 mg/dL (8.4-10.2) 01/06/19 07:50 Magnesium 2.5 mg/dL (1.6-2.3) H 01/04/19 22:08 01/04/19 22:08 01/06/19 07:50 Assessment and Plan Plan: Assessment: 1. Chronic kidney disease stage IV with baseline creatinine near 2 secondary to diabetic kidney disease. GFR currently at baseline. 2. Chest pain. Rule out acute coronary syndrome. Stress test today. 3. Diabetes mellitus. 4. History of coronary artery disease status post 1 stent placement. 5. Metabolic alkalosis. Patient is maintained on oral sodium bicarbonate. 6. Chronic kidney disease mineral bone disease maintained on PhosLo. Plan: Discontinue sodium bicarbonate. Maintain Lasix 20 mg once daily. Follow-up stress test results. I discussed with the patient the risk of worsening renal failure, including the need for potential renal replacement therapy after cardiac catheterization. Patient understands and is willing to proceed. She will need IV hydration pre-and postcardiac catheterization. Thank you for the consultation. I will continue to follow the patient with you during her hospital stay.
--- NOTE | 2019-01-06 10:23 | P.PN ---
Subjective This is a pleasant 63-year-old female past medical history significant for coronary artery disease status post stent placement to the proximal LAD in 2012, hypertension, dyslipidemia, diabetes mellitus, COPD, obstructive sleep apnea, chronic kidney disease and history of PE in the past. She is to follow the office Dr. Myles that hasn't followed up since 2011. We have asked her in consultation secondary to chest discomfort. She presented to the hospital yesterday with symptoms of chest discomfort yesterday while sitting down. She states it started out feeling like indigestion and burning in the midsternal region that radiated up to the base of her neck. These symptoms lasted for approximately 3 minutes and subsided on their own. A couple of minutes later the symptoms came back again this time worsening in intensity and this time radiated more into the jaw and the upper back. She denies associated shortness of breath, dizziness, nausea, vomiting or palpitations. She is currently residing at [facility] for rehabilitation after a leg injury. EMS was called. She continued to have chest discomfort when EMS arrived and was given sublingual nitroglycerin. This did improve her symptoms. She states that no further sy mptoms of chest discomfort since arriving at the hospital. 01/06/2019 Patient was seen and examined resting comfortably laying flat in bed. She denies any symptoms of chest discomfort, shortness of breath, dizziness or palpitations. She states through the night while she was sleeping she woke up a t 1. feeling a very vague discomfort across her chest heart subsided rather quickly. No EKG was obtained at that time. Laboratory data reviewed, sodium 142, potassium 4.5, creatinine 1.91, troponin trend 0.033, 0.038 0.021. Blood pressure 147/71 heart rate 60 afebrile maintaining oxygen saturation on room air. The patient has been seen in consultation by nephrology and if cardiac catheterization is needed pre-and post hydration is recommended. Patient has been explained the risk of proceeding with cardiac catheterization should that be required. GENERAL: This is a 63-year-old female in no apparent distress at the time of my examination. HEENT: Head is atraumatic, normocephalic. Pupils are equal, round. Sclerae anicteric. Conjunctivae are clear. Mucous membranes of the mouth are moist. Neck is supple. There is no jugular venous distention. No carotid bruit is heard. LUNGS: Clear to auscultation no wheezes, rales or rhonchi. No chest wall tenderness is noted on palpation or with deep breathing. HEART: Regular rate and rhythm with systolic ejection murmur at the left sternal border, no rubs or gallops. S1 and S2 heard. EXTREMITIES: No evidence of peripheral edema and no calf tenderness noted. ASSESSMENT Chest pain, suggestive of unstable angina. Mild troponin elevation, unclear if related to NSTEMI or chronic kidney disease. History of coronary artery disease Hypertension Dyslipidemia COPD Chronic kidney disease Diabetes mellitus PLAN Perform Persantine stress test to assess for reversible cardiac ischemia. If there is abnormalities and stress test cardiac catheterization will be considered. Further recommendations to follow based upon clinical course. Nurse Practitioner note has been reviewed, I agree with a documented findings and plan of care. Patient was seen and examined. Objective - Vital Signs Vital signs: Vital Signs Temp 97.5 F L 01/06/19 06:54 Pulse 60 01/06/19 08:00 Resp 18 01/06/19 08:00 BP 147/71 01/06/19 06:54 Pulse Ox 99 01/06/19 06:54 Intake & Output 01/05/19 01/06/19 01/06/19 18:59 06:59 18:59 Intake Total 600 Output Total 550 Balance 600 -550 Intake: Oral 600 Output: Urine 550 Other: Voiding Method Bedside Commode Bedside Commode Bedside Commode # Voids 3 1 - Labs CBC & Chem 7: 01/04/19 22:08 01/06/19 07:50 Labs: Abnormal Lab Results - Last 24 Hours (Table) 01/05/19 01/05/19 01/05/19 Range/Units 11:44 16:55 20:11 Carbon Dioxide (22-30) mmol/L BUN (7-17) mg/dL Creatinine (0.52-1.04) mg/dL POC Glucose (mg/dL) 114 H 120 H 196 H (75-99) mg/dL 01/06/19 01/06/19 Range/Units 06:31 07:50 Carbon Dioxide 35 H (22-30) mmol/L BUN 50 H (7-17) mg/dL Creatinine 1.91 H (0.52-1.04) mg/dL POC Glucose (mg/dL) 72 L (75-99) mg/dL
[2019-01-06] MEDS ORDERED: DIPYRIDAMOLE 70 MG in SODIUM CHLORIDE 0.9% 50 ML IV ONE (10:27)
[2019-01-06] MEDS ORDERED: AMINOPHYLLINE 250 MG/10 ML VIAL IV ONE (11:05)
--- NOTE | 2019-01-06 11:26 | ECHOF ---
Referral Reason:LV function, elv trop, cp MEASUREMENTS -------- HEIGHT: 162.6 cm WEIGHT: 127.5 kg BP: 164/82 RVIDd: 3.1 cm (< 3.3) IVSd: 1.4 cm (0.6 - 1.1) LVIDd: 4.3 cm (3.9 - 5.3) LVPWd: 1.4 cm (0.6 - 1.1) IVSs: 1.8 cm LVIDs: 2.9 cm LVPWs: 1.6 cm LA Diam: 3.8 cm (2.7 - 3.8) LAESV Index (A-L): 22.00 ml/m Ao Diam: 3.3 cm (2.0 - 3.7) AV Cusp: 1.6 cm (1.5 - 2.6) MV EXCURSION: 11.453 mm (> 18.000) MV EF SLOPE: 29 mm/s (70 - 150) EPSS: 1.3 cm MV E Marlon: 1.66 m/s MV DecT: 199 ms MV A Marlon: 1.55 m/s MV E/A Ratio: 1.07 AV maxP.33 mmHg AV meanP.78 mmHg AR PHT: 674 ms RAP: 15.00 mmHg RVSP: 41.10 mmHg FINDINGS -------- Sinus rhythm. This was a technically adequate study. The left ventricular size is normal. There is moderate concentric left ventricular hypertrophy. O verall left ventricular systolic function is normal with, an EF between 60 - 65 %. The right ventricle is normal in size. Normal LA size by volume 22+/-6 ml/m2. The right atrium is normal in size. There is mild aortic valve sclerosis. There is mild aortic regurgitation. The mitral valve leaflets are moderately thickened. Moderate mitral annular calcification present. Iqpaaavv-ec-jeofqp mitral regurgitation is present. The peak and mean MV gradients are 13.89mmHg 6.36mmHg as measured by doppler. Mild mitral stenosis. Mild tricuspid regurgitation present. There is mild pulmonary hypertension. The right ventricular systolic pressure, as measured by Doppler, is 41.10mmHg. Trace/mild (physiologic) pulmonic regurgitation. The aortic root size is normal. Normal inferior vena cava with less than 50% inspiratory collapse consistent with estimated right atr ial pressure of 15 mmHg. There is a trivial pericardial effusion present. CONCLUSIONS -------- 1. Sinus rhythm. 2. This was a technically adequate study. 3. The left ventricular size is normal. 4. There is moderate concentric left ventricular hypertrophy. 5. Overall left ventricular systolic function is normal with, an EF between 60 - 65 %. 6. The right ventricle is normal in size. 7. Normal LA size by volume 22+/-6 ml/m2. 8. The right atrium is normal in size. 9. There is mild aortic valve sclerosis. 10. There is mild aortic regurgitation. 11. The mitral valve leaflets are moderately thickened. 12. Moderate mitral annular calcification present. 13. Dekbzban-ot-jdcvgt mitral regurgitation is present. 14. The peak and mean MV gradients are 13.89mmHg 6.36mmHg as measured by doppler. 15. Mild mitral stenosis. 16. Mild tricuspid regurgitation present. 17. There is mild pulmonary hypertension. 18. The right ventricular systolic pressure, as measured by Doppler, is 41.10mmHg. 19. Trace/mild (physiologic) pulmonic regurgitation. 20. The aortic root size is normal. 21. Normal inferior vena cava with less than 50% inspiratory collapse consistent with estimated right atrial pressure of 15 mmHg. 22. There is a trivial pericardial effusion present. ELECTRIC MELT OPERATOR: Pallavi Payne RDCS
--- NOTE | 2019-01-06 11:35 | P.STRESS ---
- Stress Test Note Stress Test Results/Findings: Exam Performed: NM stress persantine cardiolite Exam Date: 01/06/19 Reason for Exam: CHEST PAIN Height: 5 ft 4 in Weight: 127.459 kg Protocol: PERSANTINE CL Stage: NA Duration of Exercise: NA Resting Heart Rate: 68 Resting Blood Pressure: 149/106 Maximum Achieved Heart Rate: 87 Maximum Achieved Blood Pressure: 219/92 85% PMHR: NA 100% PMHR: NA METS: NA Technologist Comment: Stress Test Results/Findings: This is a 63-year-old female with history of ischemic heart disease, hypertension, diabetes, and also family history was admitted to the hospital with chest pain. Stress data base an EKG showed a sinus rhythm with evidence of interventricular conduction delay consistent with left bundle-branch block pattern. Blood pressure at rest is 1 4906 with pulse rate of 68. A standard dose of Persantine was infused. EKG taken during and after infusion did not reveal any significant changes from the baseline. Final impression: #1. Nondiagnostic Persantine stress test because of baseline EKG changes #2. Report on the nuclear images to begin by the radiologist
[2019-01-06] MEDS: ACETAMINOPHEN TAB 325 MG TAB PO PRN (12:06)
[2019-01-06 12:11] LABS: Glucose,Whole Blood 107 mg/dL (75-99)
--- NOTE | 2019-01-06 13:03 | NM ---
EXAMINATION TYPE: NM stress persantine cardiolit DATE OF EXAM: 01/06/2019 COMPARISON: NONE HISTORY: Chest pain TECHNIQUE: After the intravenous administration of 10.8 mCi Tc 99m Sestamibi - Cardiolite resting SP ECT images acquired 45 minutes post injection. The patient received 70 mg Persantine, 26.3 mCi Tc 99m Sestamibi - Stress images obtained 30 minutes post injection FINDINGS: Review of stress and rest SPECT images a questionable tiny area reversibility involving the apex whic h may be artifactual.. Gated analysis shows normal wall motion with an estimated left ventricular ej ection fraction of 47 %. IMPRESSION: 1. There is a question of a tiny area of stress-induced reversibility involving the apex myocardium w hich could be artifactual. Correlate clinically. 2. Ejection fraction is 47%
--- NOTE | 2019-01-06 13:25 | P.PN ---
Subjective Progress Note Date: 01/06/19 63-year-old female overweight who I have known for few years has been in [facility] for the last year and half known to have history of coronary disease with PCI and stent placement of the LAD back in 2011 history of hypertension hyperlipidemia chronic kidney disease COPD obstructive sleep apnea and history of PE in the past his non-to Dr. Myles in the past patient presented from [facility] to the emergency department at [facility] on 714 with complaint of midsternal chest pain started while she was sitting down felt mild lightheadedness and dizziness with mild palpitation cold sweat and nausea feeling the intensive her symptoms become much worse with exertion had radiated to the jaw and to the back slightly developed to have mild increased shortness of breath. Ended up coming to the emergency department her EKG showed first- degree AV block with left axis deviation left bundle-branch block with no major ST or T elevation troponin initially came back negative with mildly elevated creatinine at 2.17 with GFR of 24 only close to her baseline from last time. Patient had high suspicion for coronary artery disease and unstable angina with the current symptom patient was heparinize nitro and admitted to the hospital will be seen cardiology troponin will be repeated if elevated troponin patient might benefit from going for heart cath. The last ejection fraction from 2018 was only 40 percentile with septal and apical hypokinesia and moderate mitral regurgitation at the time and was planned for medical management at the time. 01/06; patient underwent stress test this morning which failed and she is scheduled for heart catheterization for tomorrow. Repeat BUN 15 creatinine 1.91. She has been seen by Dr. Anderson with plan to hydrate patient prior to procedure. We will most likely keep the patient until to make sure renal function is stable. Objective - Vital Signs Vital signs: Vital Signs Temp 97.8 F 01/06/19 12:00 Pulse 68 01/06/19 12:00 Resp 17 01/06/19 12:00 BP 158/83 01/06/19 12:00 Pulse Ox 95 01/06/19 12:00 Intake & Output 01/05/19 01/06/19 01/06/19 18:59 06:59 18:59 Intake Total 600 Output Total 550 Balance 600 -550 Intake: Oral 600 Output: Urine 550 Other: Voiding Method Bedside Commode Bedside Commode Bedside Commode # Voids 3 1 2 - Exam Review of Systems CONSTITUTIONAL: No fever no chills. Morbidly overweight EYES: No icterus sclerae, no conjunctivitis. EARS, NOSE, MOUTH, THROAT, and FACE: No sore throat, lymphadenopathy, carotid bruits or deformity. RESPIRATORY: Mild shortness of breath cough wheezes. CARDIOVASCULAR: Positive chest pain positive PND orthopnea palpitation. GASTROINTESTINAL: Abdominal discomfort with nausea no vomiting no diarrhea., No GI Bleed, no distention or masses. GENITOURINARY: Recurrent UTI with polyuria and incontinence., no kidney stones. INTEGUMENT/BREAST: Negative for any muscular injury with mild osteoarthritis.. HEMATOLOGIC/LYMPHATIC: Negative for bleed or purpura. MUSCULOSKELTAL: Generalized back and muscle and joint pain.. NEURLOGICAL: No LOC, Sz or syncope, blurred vision dizziness or abnormality.. Edyb-vs-twlhwqwc neuropathy. BEHAVIORAL/PSYCH: Negative. ENDOCRINE: Negative. Physical exam: General Appearance: Alert, cooperative, no distress, appears stated age. Morbidly overweight. Patient is eating lunch and that should her bed and appears to be in no acute distress. Neck HEENT: Supple, no lymphadenopathy, no thyroid enlargement, no carotid b ruits. Lungs: Decreased breath some bilaterally with fine rhonchi no crackles or wheezes. Chest Wall: Decrease expansion with deep inspiration no tenderness and no deformity was found on exam, no costochondral pain or discomfort. Heart: Regular rate and rhythm, S1, S2 positive street positive systolic murmur in the apex. Back: Symmetric, no curvature, ROM normal, no CVA tenderness. Abdomen: Soft, non-tender, bowel sounds active all four quadrants, no masses, no organomegaly. Extremities: 1+ edema decreased pulse in the dorsalis pedis and posterior tibial. Pulses: 2+ and symmetric. Skin: Skin color, texture, tugor normal, no rashes or lesions. Neurologic: Alert oriented x3 cranial nerves II through XII intact, no motor deficit, no abnormal balance or gait. - Labs CBC & Chem 7: 01/04/19 22:08 01/06/19 07:50 Labs: Abnormal Lab Results - Last 24 Hours (Table) 01/05/19 01/05/19 01/06/19 Range/Units 16:55 20:11 06:31 Carbon Dioxide (22-30) mmol/L BUN (7-17) mg/dL Creatinine (0.52-1.04) mg/dL POC Glucose (mg/dL) 120 H 196 H 72 L (75-99) mg/dL 01/06/19 01/06/19 Range/Units 07:50 12:10 Carbon Dioxide 35 H (22-30) mmol/L BUN 50 H (7-17) mg/dL Creatinine 1.91 H (0.52-1.04) mg/dL POC Glucose (mg/dL) 107 H (75-99) mg/dL Assessment and Plan Plan: 1 unstable angina: Typical chest pain with typical complain with known coronary artery disease and high risk factor. Patient is scheduled for heart catheterization tomorrow. 2 coronary artery disease: Post NV in the past with PCI and stent placement of the LAD has been stable still on secondary prevention. 3 acute kidney injury, with chronic kidney disease stage III with worsening symptoms, patient will continue medical management repeat BUN/creatinine. Consult nephrology. 4 hypertension: Still on Coreg 6.25 mg twice a day. 5 hyperlipidemia: Remain on Lipitor 40 mg daily. 6 type 2 diabetes on insulin: Remain on NovoLog 7 units before meals meals with Trisiba 37 units at bedtime continue medication. 7 chronic congestive heart failure: Systolic dysfunction with mild diastolic component: Continue patient on diuretics along with Coreg continue to watch for any fluid overload. 8 hypothyroidism: Remain on levothyroxine 175 g daily. 9 chronic anemia: Iron deficiency still on iron supplement along with Procrit. 10 mild COPD: Remain on Flovent along with Ventolin and O2 as needed. 11 obstructive sleep apnea: On CPAP. 12 gout: With no flareup remain on allopurinol 300 mg daily. 13 chronic pain syndrome: Still on hydrocodone and oxycodone on an as-needed basis. 14 chronic depression: Remain on Cymbalta 30 mg twice a day. 15 chronic neuropathy: Has been on gabapentin 400 mg 3 times a day. 16 GI prophylaxis/GERD: Still on pantoprazole. 17 DVT prophylaxis: On heparin subcutaneous. CODE STATUS: Full code. Discharge plan: Return to [facility] on Impression and plan of care have been directed as dictated by the signing physician. Elicia Elizabeth nurse practitioner acting as scribe for signing physician.
[2019-01-06] MEDS ORDERED: ALPRAZolam 0.25 MG TAB PO PRN (14:09)
[2019-01-06] MEDS ORDERED: ALPRAZolam 0.5 MG TAB PO PRN (14:09)
[2019-01-06] MEDS ORDERED: SODIUM CHLORIDE 0.9% 1,000 ML in EMPTY BAG 1 BAG IV ONE (14:09)
[2019-01-06 16:49] LABS: Glucose,Whole Blood 185 mg/dL (75-99)
[2019-01-06] MEDS: FERROUS SULFATE 325 MG TAB PO SCH (16:52)
[2019-01-06 18:36] LABS: Glucose,Whole Blood 168 mg/dL (75-99)
[2019-01-06] MEDS: INSULIN ASPART (NovoLOG) 100 UNIT/ML VIAL SQ SCH (18:41)
[2019-01-06] MEDS ORDERED: HEPARIN SOD,PORK IN 0.45% NACL 25,000 UNIT in 0.45% NACL 1 250ML.BAG IV SCH (20:00)
[2019-01-06 21:23] LABS: Glucose,Whole Blood 91 mg/dL (75-99)
[2019-01-06] MEDS: ATORVASTATIN 40 MG TAB PO SCH (21:46)
[2019-01-06] MEDS: INSULIN DETEMIR (LEVEMIR) 100 UNIT/ML SYR SQ SCH (21:46)
[2019-01-06] MEDS: MONTELUKAST 10 MG TAB PO SCH (21:46)
[2019-01-07 03:26] LABS: Calcium 9.3 mg/dL (8.4-10.2); Magnesium 2.1 mg/dL (1.6-2.3); Potassium 4.5 mmol/L (3.5-5.1)
[2019-01-07] MEDS ORDERED: ASPIRIN 81 MG PO ONE (06:00)
[2019-01-07] MEDS: NYSTATIN 100,000UNIT/GM CREAM 30 GM TUBE TOPICAL SCH ×5 (06:54→21:42)
[2019-01-07] MEDS: LEVOTHYROXINE 100 MCG TAB PO SCH (06:55)
[2019-01-07] MEDS: LEVOTHYROXINE 75 MCG TAB PO SCH (06:55)
[2019-01-07] MEDS: GABAPENTIN 400 MG CAP PO SCH ×3 (06:55→21:41)
[2019-01-07] MEDS: CALCIUM ACETATE 667 MG CAP PO SCH ×3 (06:55→21:42)
[2019-01-07] MEDS: DULoxetine HCL 30 MG CAPSULE.DR PO SCH ×2 (06:56→16:56)
[2019-01-07] MEDS: ISOSORBIDE MONONITRATE ER 30 MG TAB.ER.24H PO SCH (06:56)
[2019-01-07] MEDS: ALLOPURINOL 300 MG TAB PO SCH (06:56)
[2019-01-07] MEDS: PANTOPRAZOLE 40 MG TABLET PO SCH (06:56)
[2019-01-07] MEDS: SUCRALFATE 1 GM TAB PO SCH ×4 (06:56→21:41)
[2019-01-07] MEDS: CARVEDILOL 6.25 MG TAB PO SCH ×2 (06:56→16:56)
[2019-01-07 07:17] LABS: Glucose,Whole Blood 97 mg/dL (75-99)
[2019-01-07] MEDS: FLUTICASONE 110 MCG INHALER INHALATION SCH ×2 (07:48→20:37)
[2019-01-07] MEDS ORDERED: LIDOCAINE 1% INJ 10MG/ML (20 ML MDV) ONE ×2 (09:50→10:22)
[2019-01-07] MEDS ORDERED: fentaNYL (PF) 50 MCG/ML 2 ML AMP ONE (09:50)
[2019-01-07 09:53] LABS: Glucose,Whole Blood 105 mg/dL (75-99)
[2019-01-07] MEDS: MIDAZOLAM (PF) 2 MG/2 ML VIAL IV ONE ×2 (10:06→10:18)
[2019-01-07] MEDS ORDERED: fentaNYL (PF) 50 MCG/ML 2 ML AMP IV ONE (10:06)
[2019-01-07] MEDS ORDERED: IV FLUID CONTINUATION 800 ML IV ONE (10:07)
[2019-01-07] MEDS ORDERED: LIDOCAINE 1% INJ 10MG/ML (20 ML MDV) SQ ONE (10:08)
[2019-01-07] MEDS ORDERED: VERAPAMIL 2.5 MG/ML 2 ML AMP ONE (10:20)
[2019-01-07] MEDS: VERAPAMIL SYRINGE (5 MG/10 ML) INTRAARTER ONE ×2 (10:30→10:45)
[2019-01-07] MEDS ORDERED: HEPARIN SODIUM 1,000 UN/ML (10ML VL) IV ONE (10:33)
[2019-01-07] MEDS ORDERED: IOPAMIDOL-370 100ML BTL INJ ONE (10:37)
[2019-01-07] MEDS ORDERED: NITROGLYCERIN SL TABS 0.4 MG TAB SUBLINGUAL ONE ×2 (10:44→10:45)
[2019-01-07] MEDS ORDERED: RX INFO: IV CONTRAST WAS GIVEN 1 EACH MISC MISCELLANE PRN (10:55)
--- NOTE | 2019-01-07 11:10 | P.CARDCATH ---
Date of Procedure: 01/07/19 Preoperative Diagnosis: Unstable angina and positive stress test Postoperative Diagnosis: Critical lesion involving the proximal LAD, total occlusion of the nondominant circumflex and mild disease in the RCA Procedure(s) Performed: Left heart catheterization without left ventriculography Description of Procedure: HISTORY: This is a 63-year-old female with history of hypertension, diabetes, hypercholesterolemia and previous ischemic heart disease who was admitted to the hospital with chest pain size to of unstable angina. Her troponins were borderline elevated. However patient also has underlying renal failure with creatinine of about 2. Patient had a nuclear stress test which showed possible ischemia of the apex. Patient is advised to have a cardiac catheterization for definitive diagnosis. Patient was explained the risks and benefits of the procedure, especially deterioration in renal function. Patient was seen by quality associate and cleared for the procedure. CONSENT:I have discussed the risks, benefits and alternative therapies for the above-mentioned procedure and for both sedation/analgesia as well as necessary blood product administration, if indicated, as they pertain to this patient. The patient has indicated understanding and acceptance of the risks and procedures discussed. PROCEDURE: Patient was brought to the lab in a fasting state. Patient was given some IV sedation. The right groin is infiltrated with lidocaine and attempts were made to enter the right femoral artery. Her femoral pulses are deep and difficult to engage. The procedure was abandoned and the procedure was performe d from the right radial approach. The skin and the right wrist is infiltrated with lidocaine. The right radial artery was entered using Seldinger technique.. A 6-Syriac catheter was left in place and selective coronary arteriography was performed. Patient tolerated the procedure well. TR band was applied for hemostasis. No immediate complications were noted and patient was transferred to [facility] in a stable condition Conscious Sedation: Versed 2mg Fentanyl 25 g Duration 42minutes HEMODYNAMICS: Aortic pressure is about 170/80. Left ventricular end-diastolic pressure is about 20-25. There was no gradient across the aortic valve SELECTIVE CORONARY ARTERIOGRAPHY: LEFT MAIN: Normal, normal length and free of any significant obstructive disease. Left coronary system is calcified THE LEFT ANTERIOR DESCENDING CORONARY ARTERY: This is a good caliber vessel with significant calcification and about 90% stenosis of the proximal LAD. There is also plaque involving the origin of the diagonal with about 60-70% lesion . THE LEFT CIRCUMFLEX AND IS CORONARY ARTERY: This is a nondominant vessel which is totally occluded in midportion. There are collaterals from the right to the left circumflex THE RIGHT CORONARY ARTERY: This is a good caliber vessel with previous stent placement. Has mild diffuse plaque without any critical lesions LEFT VENTRICULOGRAPHY: Not performed FINAL IMPRESSION: Critical lesion involving the proximal LAD which is calcified with mild plaque in the left main and also moderate disease in the diagonal. The circumflex coronary artery is totally occluded. The right has mild diffuse disease PLAN: As patient has significant renal failure, the procedure was stopped at this point. Patient to be considered for revascularization. Films reviewed by SHABNMA Earl for possible stent placement LAD. If it is felt to be high risk, patient may require bypass surgery PROGNOSIS: [email or web address]
[2019-01-07 11:55] LABS: Glucose,Whole Blood 110 mg/dL (75-99)
--- NOTE | 2019-01-07 13:52 | P.PN ---
Subjective Patient is seen in follow-up for acute kidney injury on chronic kidney disease. Patient has chronic kidney disease stage III. Baseline creatinine in the range of 1.3-2 outpatient. Renal function is stable. Creatinine 1.76 today. Patient had abnormal stress test. She underwent cardiac catheterization this morning which revealed critical lesion in the proximal LAD as well as total occlusion of the nondominant circumflex and mild disease in the RCA. She is maintained on IV fluids. Urine output is good. No active chest pain. Vital signs are stable. General: The patient appeared well nourished and normally developed. HEENT: Head exam is unremarkable. Neck is without jugular venous distension. LUNGS: Lungs are clear to auscultation and percussion. Breath sounds decreased. HEART: Rate and Rhythm are regular. First and second heart sounds normal. No murmurs, rubs or gallops. ABDOMEN: Abdominal exam reveals normal bowel sounds. Non-tender and non- distended. No evidence of peritonitis. EXTREMITITES: 1+ edema. Objective - Vital Signs Vital signs: Vital Signs Temp 97.9 F 01/07/19 04:00 Pulse 64 01/07/19 12:40 Resp 12 01/07/19 12:00 BP 144/60 01/07/19 12:40 Pulse Ox 100 01/07/19 11:25 Intake & Output 01/06/19 01/07/19 01/07/19 18:59 06:59 18:59 Intake Total 100 63.333 100 Output Total 1100 Balance 100 -1036.667 100 Weight 130.4 kg Intake: IV 100 Intake, IV Titration 63.333 Amount Heparin Sod,Pork in 0.45% 63.333 NaCl 25,000 unit In 0.45 % NaCl 1 250ml.bag @ 7. 846 UNITS/KG/HR 10 mls/hr IV .Q24H KUNAL Rx#: [id number] Oral 100 Output: Urine 1100 Other: Voiding Method Bedside Commode Bedside Commode # Voids 2 2 2 - Labs CBC & Chem 7: 01/04/19 22:08 01/07/19 02:50 Labs: Abnormal Lab Results - Last 24 Hours (Table) 01/06/19 01/06/19 01/07/19 Range/Units 16:48 18:34 02:50 APTT (22.0-30.0) sec Carbon Dioxide 31 H (22-30) mmol/L BUN 48 H (7-17) mg/dL Creatinine 1.76 H (0.52-1.04) mg/dL Glucose 118 H (74-99) mg/dL POC Glucose (mg/dL) 185 H 168 H (75-99) mg/dL 01/07/19 01/07/19 01/07/19 Range/Units 02:50 09:33 11:34 APTT 31.7 H (22.0-30.0) sec Carbon Dioxide (22-30) mmol/L BUN (7-17) mg/dL Creatinine (0.52-1.04) mg/dL Glucose (74-99) mg/dL POC Glucose (mg/dL) 105 H 110 H (75-99) mg/dL Assessment and Plan Plan: Assessment: 1. Chronic kidney disease stage IV with baseline creatinine near 2 secondary to diabetic kidney disease. GFR currently at baseline. 2. Chest pain status post abnormal stress test. She had cardiac catheterization this morning which revealed critical lesion of the proximal LAD, total occlusion of the nondominant circumflex and mild disease in the RCA. 3. Diabetes mellitus. 4. History of coronary artery disease status post 1 stent placement. 5. Metabolic alkalosis. Patient was maintained on oral sodium bicarbonate which has been discontinued. 6. Chronic kidney disease mineral bone disease maintained on PhosLo. Plan: Hep-Lock IV fluids at 10 PM today. Maintain Lasix 20 mg once daily. Continue to monitor renal function and urine output closely. Patient is a relatively high risk for developing contrast-induced nephropathy.
[2019-01-07] MEDS: INSULIN ASPART (NovoLOG) 100 UNIT/ML VIAL SQ SCH ×3 (14:41→16:56)
[2019-01-07] MEDS: FUROSEMIDE 20 MG TAB PO SCH (14:42)
[2019-01-07] MEDS: SENNOSIDES 8.6 MG TAB PO SCH ×2 (14:42→16:46)
[2019-01-07] MEDS: POLYETHYLENE GLYCOL 3350 17 GM POWD.PACK PO SCH (14:42)
[2019-01-07] MEDS: SODIUM CHLORIDE 0.9% 1,000 ML IV SCH (14:43)
--- NOTE | 2019-01-07 16:32 | P.PN ---
Subjective Progress Note Date: 01/07/19 63-year-old female overweight who I have known for few years has been in [facility] for the last year and half known to have history of coronary disease with PCI and stent placement of the LAD back in 2011 history of hypertension hyperlipidemia chronic kidney disease COPD obstructive sleep apnea and history of PE in the past his non-to Dr. Myles in the past patient presented from [facility] to the emergency department at [facility] on 714 with complaint of midsternal chest pain started while she was sitting down felt mild lightheadedness and dizziness with mild palpitation cold sweat and nausea feeling the intensive her symptoms become much worse with exertion had radiated to the jaw and to the back slightly developed to have mild increased shortness of breath. Ended up coming to the emergency department her EKG showed first- degree AV block with left axis deviation left bundle-branch block with no major ST or T elevation troponin initially came back negative with mildly elevated creatinine at 2.17 with GFR of 24 only close to her baseline from last time. Patient had high suspicion for coronary artery disease and unstable angina with the current symptom patient was heparinize nitro and admitted to the hospital will be seen cardiology troponin will be repeated if elevated troponin patient might benefit from going for heart cath. The last ejection fraction from July 2018 was only 40 percentile with septal and apical hypokinesia and moderate mitral regurgitation at the time and was planned for medical management at the time. 01/06; patient underwent stress test this morning which failed and she is scheduled for heart catheterization for tomorrow. Repeat BUN 15 creatinine 1.91. She has been seen by Dr. Anderson with plan to hydrate patient prior to procedure. We will most likely keep the patient until to make sure renal function is stable. 01/07: Patient underwent heart catheterization today which found a critical lesion involving the proximal LAD which is calcified with mild plaque in the left main and also moderate disease in the diagonal. The circumflex coronary artery is totally occluded. Right has mild diffuse disease. Patient to be considered for revascularization. Dr. HAQUE ready to evaluate for possible stent placement of the LAD. The patient is felt to be high risk for bypass surgery. She has been afebrile, blood pressure 149/83, heart rate 78, pulse ox 98% on room air. Repeat lab work reveals BUN 40 and creatinine 1.76. Triglycerides 73, cholesterol 128, LDL 68, HDL 45. Objective - Vital Signs Vital signs: Vital Signs Temp 97.9 F 01/07/19 04:00 Pulse 78 01/07/19 04:00 Resp 18 01/07/19 04:00 BP 149/83 01/07/19 04:00 Pulse Ox 98 01/07/19 04:00 Intake & Output 01/06/19 01/07/19 01/07/19 18:59 06:59 18:59 Intake Total 100 63.333 Output Total 1100 Balance 100 -1036.667 Weight 130.4 kg Intake: Intake, IV Titration 63.333 Amount Heparin Sod,Pork in 0.45% 63.333 NaCl 25,000 unit In 0.45 % NaCl 1 250ml.bag @ 7. 846 UNITS/KG/HR 10 mls/hr IV .Q24H KUNAL Rx#: [id number] Oral 100 Output: Urine 1100 Other: Voiding Method Bedside Commode Bedside Commode # Voids 2 2 - Exam Review of Systems CONSTITUTIONAL: No fever no chills. Morbidly overweight EYES: No icterus sclerae, no conjunctivitis. EARS, NOSE, MOUTH, THROAT, and FACE: No sore throat, lymphadenopathy, carotid bruits or deformity. RESPIRATORY: Denies shortness of breath cough wheezes. CARDIOVASCULAR: Denies chest pain positive PND orthopnea palpitation. GASTROINTESTINAL: Abdominal discomfort with nausea no vomiting no diarrhea., No GI Bleed, no distention or masses. GENITOURINARY: Recurrent UTI with polyuria and incontinence., no kidney stones. INTEGUMENT/BREAST: Negative for any muscular injury with mild osteoarthritis.. HEMATOLOGIC/LYMPHATIC: Negative for bleed or purpura. MUSCULOSKELTAL: Generalized back and muscle and joint pain.. NEURLOGICAL: No LOC, Sz or syncope, blurred vision dizziness or abnormality.. Pnyf-hq-lursagip neuropathy. BEHAVIORAL/PSYCH: Negative. ENDOCRINE: Negative. Physical exam: General Appearance: Alert, cooperative, no distress, appears stated age. Morbidly overweight. Patient is eating lunch and that should her bed and appears to be in no acute distress. Neck HEENT: Supple, no lymphadenopathy, no thyroid enlargement, no carotid bruits. Lungs: Decreased breath some bilaterally with fine rhonchi no crackles or wheezes. Chest Wall: Decrease expansion with deep inspiration no tenderness and no deformity was found on exam, no costochondral pain or discomfort. Heart: Regular rate and rhythm, S1, S2 positive street positive systolic murmur in the apex. Back: Symmetric, no curvature, ROM normal, no CVA tenderness. Abdomen: Soft, non-tender, bowel sounds active all four quadrants, no masses, no organomegaly. Extremities: 1+ edema decreased pulse in the dorsalis pedis and posterior tibial. Pulses: 2+ and symmetric. Skin: Skin color, texture, tugor normal, no rashes or lesions. Right TR band in place Neurologic: Alert oriented x3 cranial nerves II through XII intact, no motor deficit, no abnormal balance or gait. - Labs CBC & Chem 7: 01/04/19 22:08 01/07/19 02:50 Labs: Abnormal Lab Results - Last 24 Hours (Table) 01/06/19 01/06/19 01/06/19 Range/Units 12:10 16:48 18:34 APTT (22.0-30.0) sec Carbon Dioxide (22-30) mmol/L BUN (7-17) mg/dL Creatinine (0.52-1.04) mg/dL Glucose (74-99) mg/dL POC Glucose (mg/dL) 107 H 185 H 168 H (75-99) mg/dL 01/07/19 01/07/19 Range/Units 02:50 02:50 APTT 31.7 H (22.0-30.0) sec Carbon Dioxide 31 H (22-30) mmol/L BUN 48 H (7-17) mg/dL Creatinine 1.76 H (0.52-1.04) mg/dL Glucose 118 H (74-99) mg/dL POC Glucose (mg/dL) (75-99) mg/dL Assessment and Plan Plan: 1 unstable angina with critical lesion in the proximal LAD. Possible stent placement of the LAD by Dr. SHABNAM Earl. Possible evaluation for revascularization. 2 coronary artery disease: Post [place] in the past with PCI and stent placement of the LAD has been stable still on secondary prevention. 3 acute kidney injury, with chronic kidney disease stage III with worsening symptoms, patient will continue medical management repeat BUN/creatinine. Consult nephrology. 4 hypertension: Still on Coreg 6.25 mg twice a day. 5 hyperlipidemia: Remain on Lipitor 40 mg daily. 6 type 2 diabetes on insulin: Remain on NovoLog 7 units before meals meals with Trisiba 37 units at bedtime continue medication. 7 chronic congestive heart failure: Systolic dysfunction with mild diastolic component: Continue patient on diuretics along with Coreg continue to watch for any fluid overload. 8 hypothyroidism: Remain on levothyroxine 175 g daily. 9 chronic anemia: Iron deficiency still on iron supplement along with Procrit. 10 mild COPD: Remain on Flovent along with Ventolin and O2 as needed. 11 obstructive sleep apnea: On CPAP. 12 gout: With no flareup remain on allopurinol 300 mg daily. 13 chronic pain syndrome: Still on hydrocodone and oxycodone on an as-needed basis. 14 chronic depression: Remain on Cymbalta 30 mg twice a day. 15 chronic neuropathy: Has been on gabapentin 400 mg 3 times a day. 16 GI prophylaxis/GERD: Still on pantoprazole. 17 DVT prophylaxis: On heparin subcutaneous. CODE STATUS: Full code. Discharge plan: Return to [facility] on Saturday Impression and plan of care have been directed as dictated by the signing physician. Elicia Elizabeth nurse practitioner acting as scribe for signing physician.
[2019-01-07 16:37] LABS: Glucose,Whole Blood 221 mg/dL (75-99)
[2019-01-07] MEDS: FERROUS SULFATE 325 MG TAB PO SCH (16:56)
[2019-01-07] MEDS ORDERED: INSULIN ASPART (NovoLOG) 100 UNIT/ML VIAL SQ SCH (18:15)
[2019-01-07 20:56] LABS: Glucose,Whole Blood 84 mg/dL (75-99)
[2019-01-07] MEDS: INSULIN DETEMIR (LEVEMIR) 100 UNIT/ML SYR SQ SCH (21:35)
[2019-01-07] MEDS: ATORVASTATIN 40 MG TAB PO SCH (21:41)
[2019-01-07] MEDS: MONTELUKAST 10 MG TAB PO SCH (21:42)
[2019-01-08 06:04] LABS: Calcium 9.9 mg/dL (8.4-10.2); Magnesium 2.1 mg/dL (1.6-2.3); Potassium 5.2 mmol/L (3.5-5.1)
[2019-01-08] MEDS: LEVOTHYROXINE 75 MCG TAB PO SCH (06:21)
[2019-01-08] MEDS: LEVOTHYROXINE 100 MCG TAB PO SCH (06:21)
[2019-01-08] MEDS: SODIUM CHLORIDE 0.9% 1,000 ML IV SCH ×3 (06:21→17:27)
[2019-01-08] MEDS: PANTOPRAZOLE 40 MG TABLET PO SCH (06:21)
[2019-01-08] MEDS: SUCRALFATE 1 GM TAB PO SCH ×4 (06:22→21:07)
[2019-01-08 06:27] LABS: Glucose,Whole Blood 158 mg/dL (75-99)
[2019-01-08] MEDS: INSULIN ASPART (NovoLOG) 100 UNIT/ML VIAL SQ SCH ×3 (06:42→17:26)
[2019-01-08] MEDS: FLUTICASONE 110 MCG INHALER INHALATION SCH ×2 (07:04→19:36)
[2019-01-08] MEDS: CALCIUM ACETATE 667 MG CAP PO SCH ×3 (08:03→21:07)
[2019-01-08] MEDS: ACETAMINOPHEN TAB 325 MG TAB PO PRN (08:03)
[2019-01-08] MEDS: DULoxetine HCL 30 MG CAPSULE.DR PO SCH ×2 (08:04→17:26)
[2019-01-08] MEDS: ALLOPURINOL 300 MG TAB PO SCH (08:04)
[2019-01-08] MEDS: GABAPENTIN 400 MG CAP PO SCH ×3 (08:04→21:07)
[2019-01-08] MEDS: ISOSORBIDE MONONITRATE ER 30 MG TAB.ER.24H PO SCH (08:04)
[2019-01-08] MEDS: CARVEDILOL 6.25 MG TAB PO SCH ×2 (08:04→17:26)
[2019-01-08] MEDS: ASPIRIN 81 MG PO SCH (08:04)
[2019-01-08] MEDS: SENNOSIDES 8.6 MG TAB PO SCH ×2 (08:04→17:26)
--- NOTE | 2019-01-08 11:11 | P.PN ---
Subjective Patient is seen in follow-up for acute kidney injury on chronic kidney disease. Patient has chronic kidney disease stage III. Baseline creatinine in the range of 1.3-2 outpatient. Renal function is stable. Creatinine 1.77 today. Patient had abnormal stress test. She underwent cardiac catheterization on January 07 which revealed critical lesion in the proximal LAD as well as total occlusion of the nondominant circumflex and mild disease in the RCA. She is maintained on IV fluids. Urine output is good. No active chest pain. Scheduled for cardiac catheterization tomorrow for possible intervention. Vital signs are stable. General: The patient appeared well nourished and normally developed. HEENT: Head exam is unremarkable. Neck is without jugular venous distension. LUNGS: Lungs are clear to auscultation and percussion. Breath sounds decreased. HEART: Rate and Rhythm are regular. First and second heart sounds normal. No murmurs, rubs or gallops. ABDOMEN: Abdominal exam reveals normal bowel sounds. Non-tender and non- distended. No evidence of peritonitis. EXTREMITITES: 1+ edema. Objective - Vital Signs Vital signs: Vital Signs Temp 98.4 F 01/08/19 08:00 Pulse 62 01/08/19 08:00 Resp 18 01/08/19 11:06 BP 176/80 01/08/19 08:00 Pulse Ox 100 01/08/19 08:00 Intake & Output 01/07/19 01/08/19 01/08/19 18:59 06:59 18:59 Intake Total 100 240 Balance 100 240 Weight 130.7 kg Intake: IV 100 Oral 240 Other: Voiding Method Bedside Commode # Voids 2 1 - Labs CBC & Chem 7: 01/04/19 22:08 01/08/19 05:39 Labs: Abnormal Lab Results - Last 24 Hours (Table) 01/07/19 01/07/19 01/08/19 Range/Units 11:34 16:34 05:39 Potassium 5.2 H (3.5-5.1) mmol/L BUN 49 H (7-17) mg/dL Creatinine 1.77 H (0.52-1.04) mg/dL Glucose 159 H (74-99) mg/dL POC Glucose (mg/dL) 110 H 221 H (75-99) mg/dL 01/08/19 Range/Units 06:26 Potassium (3.5-5.1) mmol/L BUN (7-17) mg/dL Creatinine (0.52-1.04) mg/dL Glucose (74-99) mg/dL POC Glucose (mg/dL) 158 H (75-99) mg/dL Assessment and Plan Plan: Assessment: 1. Chronic kidney disease stage IV with baseline creatinine near 2 secondary to diabetic kidney disease. GFR currently at baseline. 2. Chest pain status post abnormal stress test. She had cardiac catheterization this morning which revealed critical lesion of the proximal LAD, total occlusion of the nondominant circumflex and mild disease in the RCA. 3. Diabetes mellitus. 4. History of coronary artery disease status post 1 stent placement. 5. Metabolic alkalosis. Patient was maintained on oral sodium bicarbonate which has been discontinued. Better. 6. Chronic kidney disease mineral bone disease maintained on PhosLo. Plan: Stop IV fluids and resume at 10 PM today. Lasix 20 mg once today. Continue to monitor renal function and urine output closely. Patient is a relatively high risk for developing contrast-induced nephropathy.
[2019-01-08] MEDS ORDERED: FUROSEMIDE 20 MG TAB PO STA (11:33)
[2019-01-08 11:57] LABS: Glucose,Whole Blood 180 mg/dL (75-99)
[2019-01-08] MEDS: NYSTATIN 100,000UNIT/GM CREAM 30 GM TUBE TOPICAL SCH ×4 (12:10→21:10)
[2019-01-08] MEDS: POLYETHYLENE GLYCOL 3350 17 GM POWD.PACK PO SCH (12:15)
--- NOTE | 2019-01-08 14:41 | P.PN ---
Subjective Progress Note Date: 01/08/19 63-year-old female overweight who I have known for few years has been in [facility] for the last year and half known to have history of coronary disease with PCI and stent placement of the LAD back in 2011 history of hypertension hyperlipidemia chronic kidney disease COPD obstructive sleep apnea and history of PE in the past his non-to Dr. Myles in the past patient presented from [facility] to the emergency department at [facility] on 714 with complaint of midsternal chest pain started while she was sitting down felt mild lightheadedness and dizziness with mild palpitation cold sweat and nausea feeling the intensive her symptoms become much worse with exertion had radiated to the jaw and to the back slightly developed to have mild increased shortness of breath. Ended up coming to the emergency department her EKG showed first- degree AV block with left axis deviation left bundle-branch block with no major ST or T elevation troponin initially came back negative with mildly elevated creatinine at 2.17 with GFR of 24 only close to her baseline from last time. Patient had high suspicion for coronary artery disease and unstable angina with the current symptom patient was heparinize nitro and admitted to the hospital will be seen cardiology troponin will be repeated if elevated troponin patient might benefit from going for heart cath. The last ejection fraction from July 2018 was only 40 percentile with septal and apical hypokinesia and moderate mitral regurgitation at the time and was planned for medical management at the time. 01/06; patient underwent stress test this morning which failed and she is scheduled for heart catheterization for tomorrow. Repeat BUN 15 creatinine 1.91. She has been seen by Dr. Anderson with plan to hydrate patient prior to procedure. We will most likely keep the patient until to make sure renal function is stable. 01/07: Patient underwent heart catheterization today which found a critical lesion involving the proximal LAD which is calcified with mild plaque in the left main and also moderate disease in the diagonal. The circumflex coronary artery is totally occluded. Right has mild diffuse disease. Patient to be considered for revascularization. Dr. HAQUE ready to evaluate for possible stent placement of the LAD. The patient is felt to be high risk for bypass surgery. She has been afebrile, blood pressure 149/83, heart rate 78, pulse ox 98% on room air. Repeat lab work reveals BUN 40 and creatinine 1.76. Triglycerides 73, cholesterol 128, LDL 68, HDL 45. 7/18: Patient will undergo possible stenting of the LAD tomorrow. She is followed by Dr. Anderson and to receive 1 dose of oral Lasix. Repeat lab work reveals BUN 49 creatinine 1.77. Patient denies any chest pain or shortness of breath. Anticipate probable discharge to [facility] on Saturday or Saturday. Objective - Vital Signs Vital signs: Vital Signs Temp 98.5 F 01/08/19 12:00 Pulse 67 01/08/19 12:00 Resp 18 01/08/19 12:00 BP 141/64 01/08/19 12:00 Pulse Ox 98 01/08/19 12:00 Intake & Output 01/07/19 01/08/19 01/08/19 18:59 06:59 18:59 Intake Total 100 240 Balance 100 240 Weight 130.7 kg Intake: IV 100 Oral 240 Other: Voiding Method Bedside Commode # Voids 2 1 - Exam Review of Systems CONSTITUTIONAL: No fever no chills. Morbidly overweight EYES: No icterus sclerae, no conjunctivitis. EARS, NOSE, MOUTH, THROAT, and FACE: No sore throat, lymphadenopathy, carotid bruits or deformity. RESPIRATORY: Denies shortness of breath cough wheezes. CARDIOVASCULAR: Denies chest pain positive PND orthopnea palpitation. GASTROINTESTINAL: Abdominal discomfort with nausea no vomiting no diarrhea., No GI Bleed, no distention or masses. GENITOURINARY: Recurrent UTI with polyuria and incontinence., no kidney stones. INTEGUMENT/BREAST: Negative for any muscular injury with mild osteoarthritis.. HEMATOLOGIC/LYMPHATIC: Negative for bleed or purpura. MUSCULOSKELTAL: Generalized back and muscle and joint pain.. NEURLOGICAL: No LOC, Sz or syncope, blurred vision dizziness or abnormality.. [id number] neuropathy. BEHAVIORAL/PSYCH: Negative. Physical exam: General Appearance: Alert, cooperative, no distress, appears stated age. Morbidly overweight. Patient appears to be in no acute distress. Neck HEENT: Supple, no lymphadenopathy, no thyroid enlargement, no carotid bruits. Lungs: Decreased breath some bilaterally with fine rhonchi no crackles or wheezes. Chest Wall: Decrease expansion with deep inspiration no tenderness and no deformity was found on exam, no costochondral pain or discomfort. Heart: Regular rate and rhythm, S1, S2 positive street positive systolic murmur in the apex. Back: Symmetric, no curvature, ROM normal, no CVA tenderness. Abdomen: Soft, non-tender, bowel sounds active all four quadrants, no masses, no organomegaly. Extremities: 1+ edema decreased pulse in the dorsalis pedis and posterior tibial. Pulses: 2+ and symmetric. Skin: Skin color, texture, tugor normal, no rashes or lesions. Right TR band in place Neurologic: Alert oriented x3 cranial nerves II through XII intact, no motor deficit, no abnormal balance or gait. - Labs CBC & Chem 7: 01/04/19 22:08 01/08/19 05:39 Labs: Abnormal Lab Results - Last 24 Hours (Table) 01/07/19 01/08/19 01/08/19 Range/Units 16:34 05:39 06:26 Potassium 5.2 H (3.5-5.1) mmol/L BUN 49 H (7-17) mg/dL Creatinine 1.77 H (0.52-1.04) mg/dL Glucose 159 H (74-99) mg/dL POC Glucose (mg/dL) 221 H 158 H (75-99) mg/dL 01/08/19 Range/Units 11:56 Potassium (3.5-5.1) mmol/L BUN (7-17) mg/dL Creatinine (0.52-1.04) mg/dL Glucose (74-99) mg/dL POC Glucose (mg/dL) 180 H (75-99) mg/dL Assessment and Plan Plan: 1 unstable angina with critical lesion in the proximal LAD. Possible stent placement of the LAD by Dr. SHABNAM Earl scheduled for Saturday. 2 coronary artery disease: Post [place] in the past with PCI and stent placement of the LAD has been stable still on secondary prevention. 3 acute kidney injury, with chronic kidney disease stage III with worsening symptoms, patient will continue medical management repeat BUN/creatinine. Consult nephrology. 4 hypertension: Still on Coreg 6.25 mg twice a day. 5 hyperlipidemia: Remain on Lipitor 40 mg daily. 6 type 2 diabetes on insulin: Remain on NovoLog 7 units before meals meals with Trisiba 37 units at bedtime continue medication. 7 chronic congestive heart failure: Systolic dysfunction with mild diastolic component: Continue patient on diuretics along with Coreg continue to watch for any fluid overload. 8 hypothyroidism: Remain on levothyroxine 175 g daily. 9 chronic anemia: Iron deficiency still on iron supplement along with Procrit. 10 mild COPD: Remain on Flovent along with Ventolin and O2 as needed. 11 obstructive sleep apnea: On CPAP. 12 gout: With no flareup remain on allopurinol 300 mg daily. 13 chronic pain syndrome: Still on hydrocodone and oxycodone on an as-needed basis. 14 chronic depression: Remain on Cymbalta 30 mg twice a day. 15 chronic neuropathy: Has been on gabapentin 400 mg 3 times a day. 16 GI prophylaxis/GERD: Still on pantoprazole. 17 DVT prophylaxis: On heparin subcutaneous. CODE STATUS: Full code. Discharge plan: Return to [facility] on Saturday or Saturday Impression and plan of care have been directed as dictated by the signing physician. Elicia Elizabeth nurse practitioner acting as scribe for signing physician.
[2019-01-08 17:16] LABS: Glucose,Whole Blood 155 mg/dL (75-99)
[2019-01-08] MEDS: FERROUS SULFATE 325 MG TAB PO SCH (17:26)
[2019-01-08 20:55] LABS: Glucose,Whole Blood 122 mg/dL (75-99)
[2019-01-08] MEDS: MONTELUKAST 10 MG TAB PO SCH (21:07)
[2019-01-08] MEDS: ATORVASTATIN 40 MG TAB PO SCH (21:08)
[2019-01-08] MEDS: INSULIN DETEMIR (LEVEMIR) 100 UNIT/ML SYR SQ SCH (21:09)
[2019-01-09 06:22] LABS: Glucose,Whole Blood 151 mg/dL (75-99)
[2019-01-09] MEDS: SODIUM CHLORIDE 0.9% 1,000 ML IV SCH ×2 (06:24→14:33)
[2019-01-09] MEDS: INSULIN ASPART (NovoLOG) 100 UNIT/ML VIAL SQ SCH ×3 (06:25→17:31)
[2019-01-09] MEDS: PANTOPRAZOLE 40 MG TABLET PO SCH (06:29)
[2019-01-09] MEDS: SUCRALFATE 1 GM TAB PO SCH ×4 (06:29→21:56)
[2019-01-09] MEDS: LEVOTHYROXINE 100 MCG TAB PO SCH (06:29)
[2019-01-09] MEDS: LEVOTHYROXINE 75 MCG TAB PO SCH (06:29)
[2019-01-09 06:43] LABS: HCT 36.4 % (34.0-46.0); HGB 11.7 gm/dL (11.4-16.0); Hypochromasia Slight; MCH 29.6 pg (25.0-35.0); MCHC 32.2 g/dL (31.0-37.0); Mean Platelet Volume 8.4; Platelet Count 144 k/uL (150-450); RBC 3.96 m/uL (3.80-5.40); RDW 15.6 % (11.5-15.5); WBC 6.7 k/uL (3.8-10.6)
[2019-01-09 06:52] LABS: Calcium 9.5 mg/dL (8.4-10.2); Potassium 4.9 mmol/L (3.5-5.1)
--- NOTE | 2019-01-09 08:22 | P.PN ---
Subjective Patient is seen in follow-up for acute kidney injury on chronic kidney disease. Patient has chronic kidney disease stage III. Baseline creatinine in the range of 1.3-2 outpatient. Renal function is slightly worse today. Creatinine 1.99. Patient had abnormal stress test. She underwent cardiac catheterization on January 07 which revealed critical lesion in the proximal LAD as well as total occlusion of the nondominant circumflex and mild disease in the RCA. She is maintained on IV fluids. Urine output is good. No active chest pain. Scheduled for cardiac catheterization again today for possible intervention. Vital signs are stable. General: The patient appeared well nourished and normally developed. HEENT: Head exam is unremarkable. Neck is without jugular venous distension. LUNGS: Lungs are clear to auscultation and percussion. Breath sounds decreased. HEART: Rate and Rhythm are regular. First and second heart sounds normal. No murmurs, rubs or gallops. ABDOMEN: Abdominal exam reveals normal bowel sounds. Non-tender and non- distended. No evidence of peritonitis. EXTREMITITES: Trace edema. Objective - Vital Signs Vital signs: Vital Signs Temp 98 F 01/09/19 00:00 Pulse 70 01/09/19 00:00 Resp 16 01/09/19 00:00 BP 128/50 01/09/19 00:00 Pulse Ox 96 01/09/19 00:00 Intake & Output 01/08/19 01/09/19 01/09/19 18:59 06:59 18:59 Intake Total 240 Balance 240 Weight 130.1 kg Intake: Oral 240 Other: Voiding Method Bedside Commode # Voids 1 - Labs CBC & Chem 7: 01/09/19 05:59 01/09/19 05:59 Labs: Abnormal Lab Results - Last 24 Hours (Table) 01/08/19 01/08/19 01/08/19 Range/Units 11:56 16:48 20:54 RDW (11.5-15.5) % Plt Count (150-450) k/uL BUN (7-17) mg/dL Creatinine (0.52-1.04) mg/dL Glucose (74-99) mg/dL POC Glucose (mg/dL) 180 H 155 H 122 H (75-99) mg/dL 01/09/19 01/09/19 01/09/19 Range/Units 05:59 05:59 06:20 RDW 15.6 H (11.5-15.5) % Plt Count 144 L (150-450) k/uL BUN 49 H (7-17) mg/dL Creatinine 1.99 H (0.52-1.04) mg/dL Glucose 157 H (74-99) mg/dL POC Glucose (mg/dL) 151 H (75-99) mg/dL Assessment and Plan Plan: Assessment: 1. Chronic kidney disease stage IV with baseline creatinine near 1.5-2 secondary to diabetic kidney disease. GFR currently at baseline. 2. Chest pain status post abnormal stress test. She had cardiac catheterization which revealed critical lesion of the proximal LAD, total occlusion of the nondominant circumflex and mild disease in the RCA. 3. Diabetes mellitus. 4. History of coronary artery disease status post 1 stent placement. 5. Metabolic alkalosis. Patient was maintained on oral sodium bicarbonate which has been discontinued. Better. 6. Chronic kidney disease mineral bone disease maintained on PhosLo. Plan: Maintain normal saline at 100 mL an hour. Hep-Lock IV fluids 12 hours after cardiac catheterization. Can resume Lasix tomorrow. Continue to monitor renal function and urine output closely. Patient is at relatively high risk for developing contrast-induced nephropathy.
[2019-01-09] MEDS: FLUTICASONE 110 MCG INHALER INHALATION SCH ×2 (08:51→20:08)
[2019-01-09] MEDS: DULoxetine HCL 30 MG CAPSULE.DR PO SCH ×2 (09:38→17:31)
[2019-01-09] MEDS: CARVEDILOL 6.25 MG TAB PO SCH ×2 (09:38→14:32)
[2019-01-09] MEDS: ASPIRIN 81 MG PO SCH (09:38)
[2019-01-09] MEDS: ALLOPURINOL 300 MG TAB PO SCH (09:38)
[2019-01-09] MEDS: GABAPENTIN 400 MG CAP PO SCH ×3 (09:38→21:46)
[2019-01-09] MEDS: ISOSORBIDE MONONITRATE ER 30 MG TAB.ER.24H PO SCH (09:38)
[2019-01-09] MEDS: ATORVASTATIN 40 MG TAB PO SCH ×2 (09:38→21:46)
[2019-01-09] MEDS: POLYETHYLENE GLYCOL 3350 17 GM POWD.PACK PO SCH (09:43)
[2019-01-09] MEDS: SENNOSIDES 8.6 MG TAB PO SCH ×2 (09:43→17:31)
[2019-01-09] MEDS: NYSTATIN 100,000UNIT/GM CREAM 30 GM TUBE TOPICAL SCH ×3 (09:43→21:45)
[2019-01-09] MEDS: CALCIUM ACETATE 667 MG CAP PO SCH ×3 (09:43→21:56)
[2019-01-09 12:22] LABS: Glucose,Whole Blood 159 mg/dL (75-99)
[2019-01-09 14:10] LABS: Glucose,Whole Blood 155 mg/dL (75-99)
--- NOTE | 2019-01-09 15:38 | P.PN ---
Subjective Progress Note Date: 01/09/19 63-year-old female overweight who I have known for few years has been in [facility] for the last year and half known to have history of coronary disease with PCI and stent placement of the LAD back in 2011 history of hypertension hyperlipidemia chronic kidney disease COPD obstructive sleep apnea and history of PE in the past his non-to Dr. Myles in the past patient presented from [facility] to the emergency department at [facility] on 714 with complaint of midsternal chest pain started while she was sitting down felt mild lightheadedness and dizziness with mild palpitation cold sweat and nausea feeling the intensive her symptoms become much worse with exertion had radiated to the jaw and to the back slightly developed to have mild increased shortness of breath. Ended up coming to the emergency department her EKG showed first- degree AV block with left axis deviation left bundle-branch block with no major ST or T elevation troponin initially came back negative with mildly elevated creatinine at 2.17 with GFR of 24 only close to her baseline from last time. Patient had high suspicion for coronary artery disease and unstable angina with the current symptom patient was heparinize nitro and admitted to the hospital will be seen cardiology troponin will be repeated if elevated troponin patient might benefit from going for heart cath. The last ejection fraction from July 2018 was only 40 percentile with septal and apical hypokinesia and moderate mitral regurgitation at the time and was planned for medical management at the time. 01/06; patient underwent stress test this morning which failed and she is scheduled for heart catheterization for tomorrow. Repeat BUN 15 creatinine 1.91. She has been seen by Dr. Anderson with plan to hydrate patient prior to procedure. We will most likely keep the patient until to make sure renal function is stable. 01/07: Patient underwent heart catheterization today which found a critical lesion involving the proximal LAD which is calcified with mild plaque in the left main and also moderate disease in the diagonal. The circumflex coronary artery is totally occluded. Right has mild diffuse disease. Patient to be considered for revascularization. Dr. HAQUE ready to evaluate for possible stent placement of the LAD. The patient is felt to be high risk for bypass surgery. She has been afebrile, blood pressure 149/83, heart rate 78, pulse ox 98% on room air. Repeat lab work reveals BUN 40 and creatinine 1.76. Triglycerides 73, cholesterol 128, LDL 68, HDL 45. 7/18: Patient will undergo possible stenting of the LAD tomorrow. She is followed by Dr. Anderson and to receive 1 dose of oral Lasix. Repeat lab work reveals BUN 49 creatinine 1.77. Patient denies any chest pain or shortness of breath. Anticipate probable discharge to [facility] on Saturday or Saturday. 01/09: Patient is scheduled for stenting of the LAD today. Patient denies having any chest pain or shortness of breath. She remains afebrile, blood pressure 170/77, pulse ox 99% on 2 L nasal cannula, pulse 64. Repeat BUN 49 and creatinine 1.99, blood sugars run between 122 and 159. Platelet count 144. Anticipate possible discharge to [facility] tomorrow but most likely on Saturday to monitor renal function. Objective - Vital Signs Vital signs: Vital Signs Temp 97.6 F 01/09/19 08:00 Pulse 64 01/09/19 08:00 Resp 18 01/09/19 08:00 BP 170/77 01/09/19 08:00 Pulse Ox 99 01/09/19 08:00 Intake & Output 01/08/19 01/09/19 01/09/19 18:59 06:59 18:59 Intake Total 240 Balance 240 Weight 130.1 kg Intake: Oral 240 Other: Voiding Method Bedside Commode Bedside Commode # Voids 1 - Exam Review of Systems CONSTITUTIONAL: No fever no chills. Morbidly overweight EYES: No icterus sclerae, no conjunctivitis. EARS, NOSE, MOUTH, THROAT, and FACE: No sore throat, lymphadenopathy, carotid bruits or deformity. RESPIRATORY: Denies shortness of breath cough wheezes. CARDIOVASCULAR: Denies chest pain positive PND orthopnea palpitation. GASTROINTESTINAL: Abdominal discomfort with nausea no vomiting no diarrhea., No GI Bleed, no distention or masses. GENITOURINARY: Recurrent UTI with polyuria and incontinence., no kidney stones. INTEGUMENT/BREAST: Negative for any muscular injury with mild osteoarthritis.. HEMATOLOGIC/LYMPHATIC: Negative for bleed or purpura. MUSCULOSKELTAL: Generalized back and muscle and joint pain.. NEURLOGICAL: No LOC, Sz or syncope, blurred vision dizziness or abnormality. BEHAVIORAL/PSYCH: Negative. Physical exam: General Appearance: Alert, cooperative, no distress, appears stated age. Morbidly overweight. Patient appears to be in no acute distress. Patient is resting flat in bed Neck HEENT: Supple, no lymphadenopathy, no thyroid enlargement, no carotid bruits. Lungs: Decreased breath some bilaterally with fine rhonchi no crackles or wheezes. Chest Wall: Decrease expansion with deep inspiration no tenderness and no deformity was found on exam, no costochondral pain or discomfort. Heart: Regular rate and rhythm, S1, S2 positive street positive systolic murmur in the apex. Back: Symmetric, no curvature, ROM normal, no CVA tenderness. Abdomen: Soft, non-tender, bowel sounds active all four quadrants, no masses, no organomegaly. Extremities: 1+ edema decreased pulse in the dorsalis pedis and posterior tibial. Pulses: 2+ and symmetric. Skin: Skin color, texture, tugor normal, no rashes or lesions. Right TR band in place Neurologic: Alert oriented x3 cranial nerves II through XII intact, no motor deficit, no abnormal balance or gait. - Labs CBC & Chem 7: 01/09/19 05:59 01/09/19 05:59 Labs: Abnormal Lab Results - Last 24 Hours (Table) 01/08/19 01/08/19 01/08/19 Range/Units 11:56 16:48 20:54 RDW (11.5-15.5) % Plt Count (150-450) k/uL BUN (7-17) mg/dL Creatinine (0.52-1.04) mg/dL Glucose (74-99) mg/dL POC Glucose (mg/dL) 180 H 155 H 122 H (75-99) mg/dL 01/09/19 01/09/19 01/09/19 Range/Units 05:59 05:59 06:20 RDW 15.6 H (11.5-15.5) % Plt Count 144 L (150-450) k/uL BUN 49 H (7-17) mg/dL Creatinine 1.99 H (0.52-1.04) mg/dL Glucose 157 H (74-99) mg/dL POC Glucose (mg/dL) 151 H (75-99) mg/dL Assessment and Plan Plan: 1 unstable angina with critical lesion in the proximal LAD. Possible stent placement of the LAD by Dr. SHABNAM Earl scheduled for Saturday. 2 coronary artery disease: Post [place] in the past with PCI and stent placement of the LAD has been stable still on secondary prevention. 3 acute kidney injury, with chronic kidney disease stage III with worsening symptoms, patient will continue medical management repeat BUN/creatinine. Consult nephrology. 4 hypertension: Still on Coreg 6.25 mg twice a day. 5 hyperlipidemia: Remain on Lipitor 40 mg daily. 6 type 2 diabetes on insulin: Remain on NovoLog 7 units before meals meals with Trisiba 37 units at bedtime continue medication. 7 chronic congestive heart failure: Systolic dysfunction with mild diastolic component: Continue patient on diuretics along with Coreg continue to watch for any fluid overload. 8 hypothyroidism: Remain on levothyroxine 175 g daily. 9 chronic anemia: Iron deficiency still on iron supplement along with Procrit. 10 mild COPD: Remain on Flovent along with Ventolin and O2 as needed. 11 obstructive sleep apnea: On CPAP. 12 gout: With no flareup remain on allopurinol 300 mg daily. 13 chronic pain syndrome: Still on hydrocodone and oxycodone on an as-needed basis. 14 chronic depression: Remain on Cymbalta 30 mg twice a day. 15 chronic neuropathy: Has been on gabapentin 400 mg 3 times a day. 16 GI prophylaxis/GERD: Still on pantoprazole. 17 DVT prophylaxis: On heparin subcutaneous. CODE STATUS: Full code. Discharge plan: Return to [facility] on Saturday or Saturday. Social work is following Impression and plan of care have been directed as dictated by the signing physician. Elicia Elizabeth nurse practitioner acting as scribe for signing scott alvarado.
[2019-01-09 17:17] LABS: Glucose,Whole Blood 235 mg/dL (75-99)
[2019-01-09] MEDS: FERROUS SULFATE 325 MG TAB PO SCH (17:31)
[2019-01-09 20:52] LABS: Glucose,Whole Blood 131 mg/dL (75-99)
[2019-01-09] MEDS: MONTELUKAST 10 MG TAB PO SCH (21:46)
[2019-01-09] MEDS: INSULIN DETEMIR (LEVEMIR) 100 UNIT/ML SYR SQ SCH (21:46)
[2019-01-10] MEDS ORDERED: SODIUM CHLORIDE 0.9% 1,000 ML IV SCH (03:45)
[2019-01-10 06:26] LABS: Glucose,Whole Blood 130 mg/dL (75-99)
[2019-01-10 06:58] LABS: Calcium 9.2 mg/dL (8.4-10.2); Potassium 4.3 mmol/L (3.5-5.1)
[2019-01-10] MEDS: SUCRALFATE 1 GM TAB PO SCH ×4 (07:03→20:46)
[2019-01-10] MEDS: NYSTATIN 100,000UNIT/GM CREAM 30 GM TUBE TOPICAL SCH ×5 (07:03→20:48)
[2019-01-10] MEDS: INSULIN ASPART (NovoLOG) 100 UNIT/ML VIAL SQ SCH ×3 (07:04→17:49)
[2019-01-10] MEDS: PANTOPRAZOLE 40 MG TABLET PO SCH (07:04)
[2019-01-10] MEDS: LEVOTHYROXINE 100 MCG TAB PO SCH (07:04)
[2019-01-10] MEDS: LEVOTHYROXINE 75 MCG TAB PO SCH (07:04)
[2019-01-10] MEDS: FLUTICASONE 110 MCG INHALER INHALATION SCH ×2 (07:17→19:33)
[2019-01-10] MEDS: GABAPENTIN 400 MG CAP PO SCH ×3 (09:09→20:46)
[2019-01-10] MEDS: POLYETHYLENE GLYCOL 3350 17 GM POWD.PACK PO SCH (09:09)
[2019-01-10] MEDS: CARVEDILOL 6.25 MG TAB PO SCH ×2 (09:09→17:49)
[2019-01-10] MEDS: ISOSORBIDE MONONITRATE ER 30 MG TAB.ER.24H PO SCH (09:09)
[2019-01-10] MEDS: SENNOSIDES 8.6 MG TAB PO SCH ×2 (09:09→17:49)
[2019-01-10] MEDS: CALCIUM ACETATE 667 MG CAP PO SCH ×3 (09:09→20:46)
[2019-01-10] MEDS: ASPIRIN 81 MG PO SCH (09:09)
[2019-01-10] MEDS: DULoxetine HCL 30 MG CAPSULE.DR PO SCH ×2 (09:09→17:49)
[2019-01-10] MEDS: ALLOPURINOL 300 MG TAB PO SCH (09:09)
--- NOTE | 2019-01-10 09:24 | P.PN ---
Subjective Patient is seen in follow-up for acute kidney injury on chronic kidney disease. Patient has chronic kidney disease stage III. Baseline creatinine in the range of 1.3-2 outpatient. Renal function is better today. Creatinine 1.62. Patient had abnormal stress test. She underwent cardiac catheterization on January 07 which revealed critical lesion in the proximal LAD as well as total occlusion of the nondominant circumflex and mild disease in the RCA. She is maintained on IV fluids. Urine output is good. No active chest pain. Scheduled for cardiac catheterization again on Saturday for possible intervention. Vital signs are stable. General: The patient appeared well nourished and normally developed. HEENT: Head exam is unremarkable. Neck is without jugular venous distension. LUNGS: Lungs are clear to auscultation and percussion. Breath sounds decreased. HEART: Rate and Rhythm are regular. First and second heart sounds normal. No mur murs, rubs or gallops. ABDOMEN: Abdominal exam reveals normal bowel sounds. Non-tender and non-dist ended. No evidence of peritonitis. EXTREMITITES: Trace edema. Objective - Vital Signs Vital signs: Vital Signs Temp 98.4 F 01/10/19 08:00 Pulse 66 01/10/19 08:00 Resp 14 01/10/19 08:00 BP 132/63 01/10/19 08:00 Pulse Ox 99 01/10/19 08:00 Intake & Output 01/09/19 01/10/19 01/10/19 18:59 06:59 18:59 Intake Total 480 222 Balance 480 222 Weight 130 kg Intake: Oral 480 222 Other: Voiding Method Bedside Commode # Voids 1 1 2 - Labs CBC & Chem 7: 01/09/19 05:59 01/10/19 05:44 Labs: Abnormal Lab Results - Last 24 Hours (Table) 01/09/19 01/09/19 01/09/19 Range/Units 11:49 14:09 17:01 BUN (7-17) mg/dL Creatinine (0.52-1.04) mg/dL Glucose (74-99) mg/dL POC Glucose (mg/dL) 159 H 155 H 235 H (75-99) mg/dL 01/09/19 01/10/19 01/10/19 Range/Units 20:51 05:44 06:24 BUN 46 H (7-17) mg/dL Creatinine 1.62 H (0.52-1.04) mg/dL Glucose 122 H (74-99) mg/dL POC Glucose (mg/dL) 131 H 130 H (75-99) mg/dL Assessment and Plan Plan: Assessment: 1. Chronic kidney disease stage IV with baseline creatinine near 1.5-2 secondary to diabetic kidney disease. GFR currently at baseline. 2. Chest pain status post abnormal stress test. She had cardiac catheterization which revealed critical lesion of the proximal LAD, total occlusion of the nondominant circumflex and mild disease in the RCA. 3. Diabetes mellitus. 4. History of coronary artery disease status post 1 stent placement. 5. Metabolic alkalosis. Patient was maintained on oral sodium bicarbonate which has been discontinued. Better. 6. Chronic kidney disease mineral bone disease maintained on PhosLo. Plan: Hep-Lock IV fluids. Will resume Saturday evening to prepare for a cardiac catheterization on Saturday. Resume oral Lasix. Continue to monitor renal function and urine output closely. Patient is at relatively high risk for developing contrast-induced nephropathy.
[2019-01-10 12:09] LABS: Glucose,Whole Blood 114 mg/dL (75-99)
[2019-01-10] MEDS: FUROSEMIDE 20 MG TAB PO SCH (12:19)
[2019-01-10] MEDS: ACETAMINOPHEN TAB 325 MG TAB PO PRN (12:19)
--- NOTE | 2019-01-10 13:54 | P.PN ---
Subjective Progress Note Date: 01/10/19 63-year-old female overweight who I have known for few years has been in [facility] for the last year and half known to have history of coronary disease with PCI and stent placement of the LAD back in 2011 history of hypertension hyperlipidemia chronic kidney disease COPD obstructive sleep apnea and history of PE in the past his non-to Dr. Myles in the past patient presented from [facility] to the emergency department at [facility] on 714 with complaint of midsternal chest pain started while she was sitting down felt mild lightheadedness and dizziness with mild palpitation cold sweat and nausea feeling the intensive her symptoms become much worse with exertion had radiated to the jaw and to the back slightly developed to have mild increased shortness of breath. Ended up coming to the emergency department her EKG showed first- degree AV block with left axis deviation left bundle-branch block with no major ST or T elevation troponin initially came back negative with mildly elevated creatinine at 2.17 with GFR of 24 only close to her baseline from last time. Patient had high suspicion for coronary artery disease and unstable angina with the current symptom patient was heparinize nitro and admitted to the hospital will be seen cardiology troponin will be repeated if elevated troponin patient might benefit from going for heart cath. The last ejection fraction from July 2018 was only 40 percentile with septal and apical hypokinesia and moderate mitral regurgitation at the time and was planned for medical management at the time. 01/06; patient underwent stress test this morning which failed and she is scheduled for heart catheterization for tomorrow. Repeat BUN 15 creatinine 1.91. She has been seen by Dr. Anderson with plan to hydrate patient prior to procedure. We will most likely keep the patient until to make sure renal function is stable. 01/07: Patient underwent heart catheterization today which found a critical lesion involving the proximal LAD which is calcified with mild plaque in the left main and also moderate disease in the diagonal. The circumflex coronary artery is totally occluded. Right has mild diffuse disease. Patient to be considered for revascularization. Dr. HAQUE ready to evaluate for possible stent placement of the LAD. The patient is felt to be high risk for bypass surgery. She has been afebrile, blood pressure 149/83, heart rate 78, pulse ox 98% on room air. Repeat lab work reveals BUN 40 and creatinine 1.76. Triglycerides 73, cholesterol 128, LDL 68, HDL 45. 7/18: Patient will undergo possible stenting of the LAD tomorrow. She is followed by Dr. Anderson and to receive 1 dose of oral Lasix. Repeat lab work reveals BUN 49 creatinine 1.77. Patient denies any chest pain or shortness of breath. Anticipate probable discharge to [facility] on Saturday or Saturday. 01/09: Patient is scheduled for stenting of the LAD today. Patient denies having any chest pain or shortness of breath. She remains afebrile, blood pressure 170/77, pulse ox 99% on 2 L nasal cannula, pulse 64. Repeat BUN 49 and creatinine 1.99, blood sugars run between 122 and 159. Platelet count 144. Anticipate possible discharge to [facility] tomorrow but most likely on Saturday to monitor renal function. 01/10: Repeat BUN 46 and creatinine 1.62. Blood pressure 132/63, afebrile, heart rate 66, pulse ox 99% on 2 L. PTCA has been delayed until Saturday at noon.Dr. Anderson has discontinued IV fluids and placed patient on Lasix 20 g oral daily. patient denies any new complaints. She denies any chest pain or shortness of breath. She states she is eating well. The patient is sleepy and nursing will check with her daughter to see if she will bring in her CPAP machine from [facility]. Objective - Vital Signs Vital signs: Vital Signs Temp 98 F 01/10/19 04:00 Pulse 74 01/10/19 04:00 Resp 16 01/10/19 04:00 BP 142/80 01/10/19 04:00 Pulse Ox 97 01/10/19 04:00 Intake & Output 01/09/19 01/10/19 01/10/19 18:59 06:59 18:59 Intake Total 480 222 Balance 480 222 Weight 130 kg Intake: Oral 480 222 Other: Voiding Method Bedside Commode # Voids 1 1 2 - Exam Review of Systems CONSTITUTIONAL: No fever no chills. Morbidly overweight, reports daytime sl eepiness EYES: No icterus sclerae, no conjunctivitis. EARS, NOSE, MOUTH, THROAT, and FACE: No sore throat, lymphadenopathy, carotid bruits or deformity. RESPIRATORY: Denies shortness of breath cough wheezes. CARDIOVASCULAR: Denies chest pain positive PND orthopnea palpitation. GASTROINTESTINAL: Abdominal discomfort with nausea no vomiting no diarrhea., No GI Bleed, no distention or masses. GENITOURINARY: Recurrent UTI with polyuria and incontinence., no kidney stones. INTEGUMENT/BREAST: Negative for any muscular injury with mild osteoarthritis.. HEMATOLOGIC/LYMPHATIC: Negative for bleed or purpura. MUSCULOSKELTAL: Generalized back and muscle and joint pain.. NEURLOGICAL: No LOC, Sz or syncope, blurred vision dizziness or abnormality. BEHAVIORAL/PSYCH: Negative. Physical exam: General Appearance: Alert, cooperative, no distress, appears stated age. Morbidly overweight. Patient appears to be in no acute distress. Patient is resting flat in bed Neck HEENT: Supple, no lymphadenopathy, no thyroid enlargement, no carotid bruits. Lungs: Decreased breath some bilaterally with fine rhonchi no crackles or wheezes. Chest Wall: Decrease expansion with deep inspiration no tenderness and no deformity was found on exam, no costochondral pain or discomfort. Heart: Regular rate and rhythm, S1, S2 positive street positive systolic murmur in the apex. Back: Symmetric, no curvature, ROM normal, no CVA tenderness. Abdomen: Soft, non-tender, bowel sounds active all four quadrants, no masses, no organomegaly. Extremities: 1+ edema decreased pulse in the dorsalis pedis and posterior tibial. Pulses: 2+ and symmetric. Skin: Skin color, texture, tugor normal, no rashes or lesions. Neurologic: Alert oriented x3 cranial nerves II through XII intact, no motor deficit, no abnormal balance or gait. - Labs CBC & Chem 7: 01/09/19 05:59 01/10/19 05:44 Labs: Abnormal Lab Results - Last 24 Hours (Table) 01/09/19 01/09/19 01/09/19 Range/Units 11:49 14:09 17:01 BUN (7-17) mg/dL Creatinine (0.52-1.04) mg/dL Glucose (74-99) mg/dL POC Glucose (mg/dL) 159 H 155 H 235 H (75-99) mg/dL 01/09/19 01/10/19 01/10/19 Range/Units 20:51 05:44 06:24 BUN 46 H (7-17) mg/dL Creatinine 1.62 H (0.52-1.04) mg/dL Glucose 122 H (74-99) mg/dL POC Glucose (mg/dL) 131 H 130 H (75-99) mg/dL Assessment and Plan Plan: 1 unstable angina with critical lesion in the proximal LAD. Possible stent pl acement of the LAD by Dr. SHABNAM Earl scheduled for Saturday. 2 coronary artery disease: Post [place] in the past with PCI and stent placement of the LAD has been stable still on secondary prevention. 3 acute kidney injury, with chronic kidney disease stage III with worsening symptoms, patient will continue medical management repeat BUN/creatinine. Consult nephrology. 4 hypertension: Still on Coreg 6.25 mg twice a day. 5 hyperlipidemia: Remain on Lipitor 40 mg daily. 6 type 2 diabetes on insulin: Remain on NovoLog 7 units before meals meals with Trisiba 37 units at bedtime continue medication. 7 chronic congestive heart failure: Systolic dysfunction with mild diastolic component: Continue patient on diuretics along with Coreg continue to watch for any fluid overload. 8 hypothyroidism: Remain on levothyroxine 175 g daily. 9 chronic anemia: Iron deficiency still on iron supplement along with Procrit. 10 mild COPD: Remain on Flovent along with Ventolin and O2 as needed. 11 obstructive sleep apnea: On CPAP. we'll check with daughter to bring in from [facility] 12 gout: With no flareup remain on allopurinol 300 mg daily. 13 chronic pain syndrome: Still on hydrocodone and oxycodone on an as-needed basis. 14 chronic depression: Remain on Cymbalta 30 mg twice a day. 15 chronic neuropathy: Has been on gabapentin 400 mg 3 times a day. 16 GI prophylaxis/GERD: Still on pantoprazole. 17 DVT prophylaxis: On heparin subcutaneous. CODE STATUS: Full code. Discharge plan: Return to [facility] on Saturday. Social work is following Impression and plan of care have been directed as dictated by the signing physician. Elicia Elizabeth nurse practitioner acting as scribe for signing physician.
[2019-01-10] MEDS: SODIUM CHLORIDE 0.9% 1,000 ML IV SCH (15:20)
--- NOTE | 2019-01-10 16:44 | P.PN ---
Subjective Progress Note Date: 01/10/19 This is a 63-year-old female who was admitted to the hospital with chest pain size to of unstable angina. Patient had a positive stress test and subsequently had a cardiac catheterization. She was found to have critical lesion involving the proximal LAD with total occlusion of the distal circumflex. Patient has chronic renal failure. In view of that patient was advised status stent placement of the LAD. Her creatinine went up to 1.9. Today's creatinine is about 1.6. Patient is critically otherwise stable. She is scheduled to have stent placement on Saturday. Denies any chest pain or shortness of breath Objective - Vital Signs Vital signs: Vital Signs Temp 98.4 F 01/10/19 08:00 Pulse 64 01/10/19 12:00 Resp 14 01/10/19 12:00 BP 148/67 01/10/19 12:00 Pulse Ox 98 01/10/19 12:00 Intake & Output 01/09/19 01/10/19 01/10/19 18:59 06:59 18:59 Intake Total 480 222 880 Output Total 600 Balance 480 -378 880 Weight 130 kg Intake: Oral 480 222 880 Output: Urine 600 Other: Voiding Method Bedside Commode # Voids 1 1 1 - Exam GENERAL EXAM: Patient is alert and oriented and doesn't appear to be in any acute distress HEENT: Normocephalic. Normal reaction of pupils, equal size, normal range of extraocular motion. No erythema or exudates in the throat. NECK: No masses, no nuchal rigidity. CHEST: No chest wall deformity. LUNGS: [Equal air entry with no crackles or wheeze.] HEART: [S1 and S2 normal with no audible mumurs or gallops. Regular rhythm, femorals equal on both sides..] ABDOMEN: No hepatosplenomegaly, normal bowel sounds, no guarding or rigidity. SKIN: No rashes CENTRAL NERVOUS SYSTEM: No focal deficits. EXTREMITIES: [No cyanosis, clubbing or edema - Labs CBC & Chem 7: 01/09/19 05:59 01/10/19 05:44 Labs: Abnormal Lab Results - Last 24 Hours (Table) 01/09/19 01/09/19 01/10/19 Range/Units 17:01 20:51 05:44 BUN 46 H (7-17) mg/dL Creatinine 1.62 H (0.52-1.04) mg/dL Glucose 122 H (74-99) mg/dL POC Glucose (mg/dL) 235 H 131 H (75-99) mg/dL 01/10/19 01/10/19 Range/Units 06:24 11:55 BUN (7-17) mg/dL Creatinine (0.52-1.04) mg/dL Glucose (74-99) mg/dL POC Glucose (mg/dL) 130 H 114 H (75-99) mg/dL Assessment and Plan (1) Coronary artery disease Current Visit: Yes Status: Acute Code(s): I25.10 - ATHSCL HEART DISEASE OF [place] CORONARY ARTERY W/O ANG PCTRS SNOMED Code(s): 15585725 (2) Unstable angina pectoris Current Visit: Yes Status: Acute Code(s): I20.0 - UNSTABLE ANGINA SNOMED Code(s): 4458328 (3) Chronic renal failure Current Visit: No Status: Acute Code(s): N18.9 - CHRONIC KIDNEY DISEASE, UNSPECIFIED SNOMED Code(s): 79227589 Plan: patient is waiting to have stent placement of the LAD. Clinically stable. Renal function improving
[2019-01-10 17:08] LABS: Glucose,Whole Blood 115 mg/dL (75-99)
[2019-01-10] MEDS: FERROUS SULFATE 325 MG TAB PO SCH (17:49)
[2019-01-10 20:38] LABS: Glucose,Whole Blood 147 mg/dL (75-99)
[2019-01-10] MEDS: ATORVASTATIN 40 MG TAB PO SCH (20:46)
[2019-01-10] MEDS: MONTELUKAST 10 MG TAB PO SCH (20:46)
[2019-01-10] MEDS: INSULIN DETEMIR (LEVEMIR) 100 UNIT/ML SYR SQ SCH (20:54)
[2019-01-11 06:39] LABS: Glucose,Whole Blood 108 mg/dL (75-99)
[2019-01-11 06:48] LABS: Basophils % (A) 0 %; Eosinophils # (A) 0.2 k/uL (0-0.7); Eosinophils % (A) 3 %; HCT 32.8 % (34.0-46.0); HGB 10.3 gm/dL (11.4-16.0); Hypochromasia Slight; Lymphocytes # (A) 1.7 k/uL (1.0-4.8); Lymphocytes % (A) 27 %; MCHC 31.4 g/dL (31.0-37.0); MCV 92.3 fL (80.0-100.0); Mean Platelet Volume 8.5; Monocytes # (A) 0.5 k/uL (0-1.0); Monocytes % (A) 7 %; Neutrophils # (A) 3.8 k/uL (1.3-7.7); Neutrophils % (A) 60 %; Platelet Count 119 k/uL (150-450); RBC 3.55 m/uL (3.80-5.40); RDW 15.8 % (11.5-15.5); WBC 6.3 k/uL (3.8-10.6)
[2019-01-11 07:04] LABS: Calcium 9.3 mg/dL (8.4-10.2); Potassium 4.7 mmol/L (3.5-5.1)
[2019-01-11] MEDS: PANTOPRAZOLE 40 MG TABLET PO SCH (07:25)
[2019-01-11] MEDS: LEVOTHYROXINE 75 MCG TAB PO SCH (07:25)
[2019-01-11] MEDS: SUCRALFATE 1 GM TAB PO SCH ×4 (07:25→20:15)
[2019-01-11] MEDS: INSULIN ASPART (NovoLOG) 100 UNIT/ML VIAL SQ SCH ×3 (07:25→17:28)
[2019-01-11] MEDS: LEVOTHYROXINE 100 MCG TAB PO SCH (07:25)
[2019-01-11] MEDS: FLUTICASONE 110 MCG INHALER INHALATION SCH ×2 (07:41→20:06)
--- NOTE | 2019-01-11 10:19 | P.PN ---
Subjective Patient is seen in follow-up for acute kidney injury on chronic kidney disease. Patient has chronic kidney disease stage III. Baseline creatinine in the range of 1.3-2 outpatient. Renal function is worse today. Creatinine 2.12. Patient had abnormal stress test. She underwent cardiac catheterization on January 07 which revealed critical lesion in the proximal LAD as well as total occlusion of the nondominant circumflex and mild disease in the RCA. Urine output is good. No active chest pain. Scheduled for cardiac catheterization again on Saturday for possible intervention. Vital signs are stable. General: The patient appeared well nourished and normally developed. HEENT: Head exam is unremarkable. Neck is without jugular venous distension. LUNGS: Lungs are clear to auscultation and percussion. Breath sounds decreased. HEART: Rate and Rhythm are regular. First and second heart sounds normal. No murmurs, rubs or gallops. ABDOMEN: Abdominal exam reveals normal bowel sounds. Non-tender and non- distended. No evidence of peritonitis. EXTREMITITES: Trace edema. Objective - Vital Signs Vital signs: Vital Signs Temp 98.6 F 01/10/19 20:00 Pulse 63 01/11/19 08:00 Resp 14 01/11/19 08:00 BP 144/65 01/11/19 08:00 Pulse Ox 94 L 01/11/19 08:00 Intake & Output 01/10/19 01/11/19 01/11/19 18:59 06:59 18:59 Intake Total 1280 840 10 Balance 1280 840 10 Weight 129.6 kg Intake: IV 40 10 Invasive Line 3 40 10 Oral 1280 800 Other: Voiding Method Bedside Commode # Voids 1 3 - Labs CBC & Chem 7: 01/11/19 05:34 01/11/19 05:34 Labs: Abnormal Lab Results - Last 24 Hours (Table) 01/10/19 01/10/19 01/10/19 Range/Units 11:55 17:07 20:22 RBC (3.80-5.40) m/uL Hgb (11.4-16.0) gm/dL Hct (34.0-46.0) % RDW (11.5-15.5) % Plt Count (150-450) k/uL Carbon Dioxide (22-30) mmol/L BUN (7-17) mg/dL Creatinine (0.52-1.04) mg/dL Glucose (74-99) mg/dL POC Glucose (mg/dL) 114 H 115 H 147 H (75-99) mg/dL 01/11/19 01/11/19 01/11/19 Range/Units 05:34 05:34 06:20 RBC 3.55 L (3.80-5.40) m/uL Hgb 10.3 L (11.4-16.0) gm/dL Hct 32.8 L (34.0-46.0) % RDW 15.8 H (11.5-15.5) % Plt Count 119 L (150-450) k/uL Carbon Dioxide 31 H (22-30) mmol/L BUN 45 H (7-17) mg/dL Creatinine 2.12 H (0.52-1.04) mg/dL Glucose 108 H (74-99) mg/dL POC Glucose (mg/dL) 108 H (75-99) mg/dL Assessment and Plan Plan: Assessment: 1. Chronic kidney disease stage IV with baseline creatinine near 1.5-2 secondary to diabetic kidney disease. 2. Chest pain status post abnormal stress test. She had cardiac catheterization which revealed critical lesion of the proximal LAD, total occlusion of the nondominant circumflex and mild disease in the RCA. 3. Diabetes mellitus. 4. History of coronary artery disease status post 1 stent placement. 5. Metabolic alkalosis. Patient was maintained on oral sodium bicarbonate which has been discontinued. 6. Chronic kidney disease mineral bone disease maintained on PhosLo. 7. Mild acute kidney injury secondary to contrast-induced nephropathy. Creatinine 2.12 today. Plan: Resume IV fluids tonight at midnight with normal saline at 100 mL an hour. Continue to monitor renal function and urine output closely. Patient is at relatively high risk for developing contrast-induced nephropathy due to underlying CKD and diabetes.
[2019-01-11] MEDS: LACTULOSE 20 GM/30 ML CUP PO SCH (10:34)
[2019-01-11] MEDS: POLYETHYLENE GLYCOL 3350 17 GM POWD.PACK PO SCH (10:34)
[2019-01-11] MEDS: DULoxetine HCL 30 MG CAPSULE.DR PO SCH ×2 (10:35→17:28)
[2019-01-11] MEDS: CARVEDILOL 6.25 MG TAB PO SCH ×2 (10:35→17:28)
[2019-01-11] MEDS: ASPIRIN 81 MG PO SCH (10:35)
[2019-01-11] MEDS: GABAPENTIN 400 MG CAP PO SCH ×3 (10:35→20:14)
[2019-01-11] MEDS: FUROSEMIDE 20 MG TAB PO SCH (10:35)
[2019-01-11] MEDS: SENNOSIDES 8.6 MG TAB PO SCH ×2 (10:35→17:28)
[2019-01-11] MEDS: ISOSORBIDE MONONITRATE ER 30 MG TAB.ER.24H PO SCH (10:35)
[2019-01-11] MEDS: ALLOPURINOL 300 MG TAB PO SCH (10:35)
[2019-01-11] MEDS: NYSTATIN 100,000UNIT/GM CREAM 30 GM TUBE TOPICAL SCH ×4 (10:36→20:16)
[2019-01-11] MEDS: CALCIUM ACETATE 667 MG CAP PO SCH ×3 (10:36→20:14)
[2019-01-11] MEDS: SODIUM CHLORIDE 0.9% 1,000 ML IV SCH ×2 (11:32→20:16)
[2019-01-11 12:02] LABS: Glucose,Whole Blood 89 mg/dL (75-99)
--- NOTE | 2019-01-11 12:23 | P.PN ---
Subjective Progress Note Date: 01/11/19 63-year-old female overweight who I have known for few years has been in [facility] for the last year and half known to have history of coronary disease with PCI and stent placement of the LAD back in 2011 history of hypertension hyperlipidemia chronic kidney disease COPD obstructive sleep apnea and history of PE in the past his non-to Dr. Myles in the past patient presented from [facility] to the emergency department at [facility] on 714 with complaint of midsternal chest pain started while she was sitting down felt mild lightheadedness and dizziness with mild palpitation cold sweat and nausea feeling the intensive her symptoms become much worse with exertion had radiated to the jaw and to the back slightly developed to have mild increased shortness of breath. Ended up coming to the emergency department her EKG showed first- degree AV block with left axis deviation left bundle-branch block with no major ST or T elevation troponin initially came back negative with mildly elevated creatinine at 2.17 with GFR of 24 only close to her baseline from last time. Patient had high suspicion for coronary artery disease and unstable angina with the current symptom patient was heparinize nitro and admitted to the hospital will be seen cardiology troponin will be repeated if elevated troponin patient might benefit from going for heart cath. The last ejection fraction from July 2018 was only 40 percentile with septal and apical hypokinesia and moderate mitral regurgitation at the time and was planned for medical management at the time. 01/06; patient underwent stress test this morning which failed and she is scheduled for heart catheterization for tomorrow. Repeat BUN 15 creatinine 1.91. She has been seen by Dr. Anderson with plan to hydrate patient prior to procedure. We will most likely keep the patient until to make sure renal function is stable. 01/07: Patient underwent heart catheterization today which found a critical lesion involving the proximal LAD which is calcified with mild plaque in the left main and also moderate disease in the diagonal. The circumflex coronary artery is totally occluded. Right has mild diffuse disease. Patient to be considered for revascularization. Dr. HAQUE ready to evaluate for possible stent placement of the LAD. The patient is felt to be high risk for bypass surgery. She has been afebrile, blood pressure 149/83, heart rate 78, pulse ox 98% on room air. Repeat lab work reveals BUN 40 and creatinine 1.76. Triglycerides 73, cholesterol 128, LDL 68, HDL 45. 7/18: Patient will undergo possible stenting of the LAD tomorrow. She is followed by Dr. Anderson and to receive 1 dose of oral Lasix. Repeat lab work reveals BUN 49 creatinine 1.77. Patient denies any chest pain or shortness of breath. Anticipate probable discharge to [facility] on Saturday or Saturday. 01/09: Patient is scheduled for stenting of the LAD today. Patient denies having any chest pain or shortness of breath. She remains afebrile, blood pressure 170/77, pulse ox 99% on 2 L nasal cannula, pulse 64. Repeat BUN 49 and creatinine 1.99, blood sugars run between 122 and 159. Platelet count 144. Anticipate possible discharge to [facility] tomorrow but most likely on Saturday to monitor renal function. 01/10: Repeat BUN 46 and creatinine 1.62. Blood pressure 132/63, afebrile, heart rate 66, pulse ox 99% on 2 L. PTCA has been delayed until Saturday at noon.Dr. Anderson has discontinued IV fluids and placed patient on Lasix 20 g oral daily. patient denies any new complaints. She denies any chest pain or shortness of breath. She states she is eating well. The patient is sleepy and nursing will check with her daughter to see if she will bring in her CPAP machine from [facility]. 01/11: Patient is awake and alert. She is denying having any chest pain, shortness of breath. She states she is eating okay. She does complain of constipation for which she would like lactulose which will be ordered. She states she has not had a bowel movement since admission. Her family was unable to bring in her CPAP from [facility]. Anticipate PTCA tomorrow. Objective - Vital Signs Vital signs: Vital Signs Temp 98.6 F 01/10/19 20:00 Pulse 63 01/11/19 08:00 Resp 14 01/11/19 08:00 BP 144/65 01/11/19 08:00 Pulse Ox 94 L 01/11/19 08:00 Intake & Output 01/10/19 01/11/19 01/11/19 18:59 06:59 18:59 Intake Total 1280 840 10 Balance 1280 840 10 Weight 129.6 kg Intake: IV 40 10 Invasive Line 3 40 10 Oral 1280 800 Other: Voiding Method Bedside Commode # Voids 1 3 - Exam Review of Systems CONSTITUTIONAL: No fever no chills. Morbidly overweight, denies daytime sleepiness EYES: No icterus sclerae, no conjunctivitis. EARS, NOSE, MOUTH, THROAT, and FACE: No sore throat, lymphadenopathy, carotid bruits or deformity. RESPIRATORY: Denies shortness of breath cough wheezes. CARDIOVASCULAR: Denies chest pain positive PND orthopnea palpitation. GASTROINTESTINAL: Abdominal discomfort with nausea no vomiting no diarrhea., No GI Bleed, no distention or masses. GENITOURINARY: Recurrent UTI with polyuria and incontinence., no kidney stones. INTEGUMENT/BREAST: Negative for any muscular injury with mild osteoarthritis.. HEMATOLOGIC/LYMPHATIC: Negative for bleed or purpura. MUSCULOSKELTAL: Generalized back and muscle and joint pain.. NEURLOGICAL: No LOC, Sz or syncope, blurred vision dizziness or abnormality. BEHAVIORAL/PSYCH: Negative. Physical exam: General Appearance: Alert, cooperative, no distress, appears stated age. Morbidly overweight. Patient appears to be in no acute distress. Neck HEENT: Supple, no lymphadenopathy, no thyroid enlargement, no carotid bruits. Lungs: Decreased breath some bilaterally with fine rhonchi no crackles or wheezes. Chest Wall: Decrease expansion with deep inspiration no tenderness and no deformity was found on exam, no costochondral pain or discomfort. Heart: Regular rate and rhythm, S1, S2 positive street positive systolic murmur in the apex. Back: Symmetric, no curvature, ROM normal, no CVA tenderness. Abdomen: Soft, non-tender, bowel sounds active all four quadrants, no masses, no organomegaly. Extremities: 1+ edema decreased pulse in the dorsalis pedis and posterior tibial. Pulses: 2+ and symmetric. Skin: Skin color, texture, tugor normal, no rashes or lesions. Neurologic: Alert oriented x3 cranial nerves II through XII intact, no motor deficit, no abnormal balance or gait. - Labs CBC & Chem 7: 01/11/19 05:34 01/11/19 05:34 Labs: Abnormal Lab Results - Last 24 Hours (Table) 01/10/19 01/10/19 01/10/19 Range/Units 11:55 17:07 20:22 RBC (3.80-5.40) m/uL Hgb (11.4-16.0) gm/dL Hct (34.0-46.0) % RDW (11.5-15.5) % Plt Count (150-450) k/uL Carbon Dioxide (22-30) mmol/L BUN (7-17) mg/dL Creatinine (0.52-1.04) mg/dL Glucose (74-99) mg/dL POC Glucose (mg/dL) 114 H 115 H 147 H (75-99) mg/dL 01/11/19 01/11/19 01/11/19 Range/Units 05:34 05:34 06:20 RBC 3.55 L (3.80-5.40) m/uL Hgb 10.3 L (11.4-16.0) gm/dL Hct 32.8 L (34.0-46.0) % RDW 15.8 H (11.5-15.5) % Plt Count 119 L (150-450) k/uL Carbon Dioxide 31 H (22-30) mmol/L BUN 45 H (7-17) mg/dL Creatinine 2.12 H (0.52-1.04) mg/dL Glucose 108 H (74-99) mg/dL POC Glucose (mg/dL) 108 H (75-99) mg/dL Assessment and Plan Plan: 1 unstable angina with critical lesion in the proximal LAD. Possible stent placement of the LAD by Dr. SHABNAM Earl scheduled for Saturday at noon. 2 coronary artery disease: Post [place] in the past with PCI and stent placement of the LAD has been stable still on secondary prevention. 3 acute kidney injury, with chronic kidney disease stage III with worsening symptoms, patient will continue medical management repeat BUN/creatinine. Consult nephrology. 4 hypertension: Still on Coreg 6.25 mg twice a day. 5 hyperlipidemia: Remain on Lipitor 40 mg daily. 6 type 2 diabetes on insulin: Remain on NovoLog 7 units before meals meals with Trisiba 37 units at bedtime continue medication. 7 chronic systolic and diastolic heart failure. Continue patient on diuretics along with Coreg continue to watch for any fluid overload. 8 hypothyroidism: Remain on levothyroxine 175 g daily. 9 chronic anemia of chronic disease: Iron deficiency still on iron supplement along with Procrit. 10 mild COPD: Remain on Flovent along with Ventolin and O2 as needed. 11 obstructive sleep apnea: On CPAP. we'll check with daughter to bring in from [facility] 12 gout: With no flareup remain on allopurinol 300 mg daily. 13 chronic pain syndrome: Still on hydrocodone and oxycodone on an as-needed basis. 14 recurrent depression: Remain on Cymbalta 30 mg twice a day. 15 chronic neuropathy: Has been on gabapentin 400 mg 3 times a day. 16 GI prophylaxis/GERD: Still on pantoprazole. 17 DVT prophylaxis: On heparin subcutaneous. CODE STATUS: Full code. Discharge plan: Return to [facility] on Saturday. Social work is following Impression and plan of care have been directed as dictated by the signing physician. Elicia Elizabeth nurse practitioner acting as scribe for signing physician.
--- NOTE | 2019-01-11 13:38 | P.PN ---
Subjective This is a pleasant 63-year-old female past medical history significant for coronary artery disease status post stent placement to the proximal LAD in 2011, hypertension, dyslipidemia, diabetes mellitus, COPD, obstructive sleep apnea, chronic kidney disease and history of PE in the past. She is to follow the office Dr. Myles that hasn't followed up since 2011. We have asked her in consultation secondary to chest discomfort. She presented to the hospital yesterday with symptoms of chest discomfort yesterday while sitting down. She states it started out feeling like indigestion and burning in the midsternal region that radiated up to the base of her neck. These symptoms lasted for approximately 3 minutes and subsided on their own. A couple of minutes later the symptoms came back again this time worsening in intensity and this time radiated more into the jaw and the upper back. She denies associated shortness of breath, dizziness, nausea, vomiting or palpitations. She is currently residing at [facility] for rehabilitation after a leg injury. EMS was called. She continued to have chest discomfort when EMS arrived and was given sublingual nitroglycerin. This did improve her symptoms. She states that no further sy mptoms of chest discomfort since arriving at the hospital. 01/06/2019 Patient was seen and examined resting comfortably laying flat in bed. She denies any symptoms of chest discomfort, shortness of breath, dizziness or palpitations. She states through the night while she was sleeping she woke up a t 1. feeling a very vague discomfort across her chest heart subsided rather quickly. No EKG was obtained at that time. Laboratory data reviewed, sodium 142, potassium 4.5, creatinine 1.91, troponin trend 0.033, 0.038 0.021. Blood pressure 147/71 heart rate 60 afebrile maintaining oxygen saturation on room air. The patient has been seen in consultation by nephrology and if cardiac catheterization is needed pre-and post hydration is recommended. Patient has been explained the risk of proceeding with cardiac catheterization should that be required. 01/11/2019 Patient was seen and examined resting comfortably in bed in no acute distress. She denies symptoms of chest discomfort, shortness of breath, dizziness or palpitations. Her radial access site is clean, dry and intact with strong pulse and no evidence of hematoma. Blood pressure 143/67 heart rate 68 afebrile maintaining oxygen saturation on room air. Laboratory data reviewed, WBC 6.3, hemoglobin 10.3, platelets 119, sodium 141, potassium 4.7, creatinine 2.12 up from 1.62 yesterday. Patient is currently maintained on aspirin 81 mg daily, atorvastatin 40 mg daily, carvedilol 6.25 mg twice a day and Imdur 30 mg daily. GENERAL: This is a 63-year-old female in no apparent distress at the time of my examination. HEENT: Head is atraumatic, normocephalic. Pupils are equal, round. Sclerae anicteric. Conjunctivae are clear. Mucous membranes of the mouth are moist. Neck is supple. There is no jugular venous distention. No carotid bruit is heard. LUNGS: Clear to auscultation no wheezes, rales or rhonchi. No chest wall tenderness is noted on palpation or with deep breathing. HEART: Regular rate and rhythm with systolic ejection murmur at the left sternal border, no rubs or gallops. S1 and S2 heard. EXTREMITIES: No evidence of peripheral edema and no calf tenderness noted. ASSESSMENT Chest pain, suggestive of unstable angina. Catheterization revealed a critical lesion of the proximal LAD is calcified with mild plaque in the left main and moderate disease in the diagonal branch. Mild troponin elevation, unclear if related to NSTEMI or chronic kidney disease. History of coronary artery disease Hypertension Dyslipidemia COPD Chronic kidney disease Diabetes mellitus PLAN IV hydration of 0.9% sodium chloride at 100 mL/h per nephrology. Repeat renal function at 6 AM tomorrow. Nothing by mouth after midnight for probable PTCA of the LAD depending on renal function. Further recommendations to follow based upon clinical course. Nurse Practitioner note has been reviewed, I agree with a documented findings and plan of care. Patient was seen and examined. Objective - Vital Signs Vital signs: Vital Signs Temp 98.6 F 01/10/19 20:00 Pulse 68 01/11/19 12:00 Resp 18 01/11/19 12:00 BP 143/67 01/11/19 12:00 Pulse Ox 98 01/11/19 12:00 Intake & Output 01/10/19 01/11/19 01/11/19 18:59 06:59 18:59 Intake Total 1280 840 20 Balance 1280 840 20 Weight 129.6 kg Intake: IV 40 20 Invasive Line 3 40 20 Oral 1280 800 Other: Voiding Method Bedside Commode # Voids 1 3 - Labs CBC & Chem 7: 01/11/19 05:34 01/11/19 05:34 Labs: Abnormal Lab Results - Last 24 Hours (Table) 01/10/19 01/10/19 01/11/19 Range/Units 17:07 20:22 05:34 RBC (3.80-5.40) m/uL Hgb (11.4-16.0) gm/dL Hct (34.0-46.0) % RDW (11.5-15.5) % Plt Count (150-450) k/uL Carbon Dioxide 31 H (22-30) mmol/L BUN 45 H (7-17) mg/dL Creatinine 2.12 H (0.52-1.04) mg/dL Glucose 108 H (74-99) mg/dL POC Glucose (mg/dL) 115 H 147 H (75-99) mg/dL 01/11/19 01/11/19 Range/Units 05:34 06:20 RBC 3.55 L (3.80-5.40) m/uL Hgb 10.3 L (11.4-16.0) gm/dL Hct 32.8 L (34.0-46.0) % RDW 15.8 H (11.5-15.5) % Plt Count 119 L (150-450) k/uL Carbon Dioxide (22-30) mmol/L BUN (7-17) mg/dL Creatinine (0.52-1.04) mg/dL Glucose (74-99) mg/dL POC Glucose (mg/dL) 108 H (75-99) mg/dL
[2019-01-11 16:47] LABS: Glucose,Whole Blood 173 mg/dL (75-99)
[2019-01-11] MEDS: FERROUS SULFATE 325 MG TAB PO SCH (17:28)
[2019-01-11] MEDS: MONTELUKAST 10 MG TAB PO SCH (20:14)
[2019-01-11 20:51] LABS: Glucose,Whole Blood 77 mg/dL (75-99)
[2019-01-11] MEDS: INSULIN DETEMIR (LEVEMIR) 100 UNIT/ML SYR SQ SCH (21:09)
[2019-01-12 06:26] LABS: Glucose,Whole Blood 147 mg/dL (75-99)
[2019-01-12] MEDS: SUCRALFATE 1 GM TAB PO SCH ×4 (06:31→21:18)
[2019-01-12] MEDS: PANTOPRAZOLE 40 MG TABLET PO SCH (06:32)
[2019-01-12] MEDS: LEVOTHYROXINE 75 MCG TAB PO SCH (06:32)
[2019-01-12] MEDS: LEVOTHYROXINE 100 MCG TAB PO SCH (06:32)
[2019-01-12 07:27] LABS: Basophils % (A) 0 %; Eosinophils # (A) 0.2 k/uL (0-0.7); Eosinophils % (A) 3 %; HCT 31.4 % (34.0-46.0); HGB 9.9 gm/dL (11.4-16.0); Lymphocytes # (A) 1.7 k/uL (1.0-4.8); Lymphocytes % (A) 27 %; MCHC 31.5 g/dL (31.0-37.0); MCV 92.1 fL (80.0-100.0); Mean Platelet Volume 7.7; Monocytes # (A) 0.4 k/uL (0-1.0); Monocytes % (A) 6 %; Neutrophils # (A) 3.7 k/uL (1.3-7.7); Neutrophils % (A) 61 %; Platelet Count 123 k/uL (150-450); RBC 3.41 m/uL (3.80-5.40); RDW 15.3 % (11.5-15.5); WBC 6.1 k/uL (3.8-10.6)
[2019-01-12 07:36] LABS: Calcium 9.2 mg/dL (8.4-10.2)
[2019-01-12] MEDS: FLUTICASONE 110 MCG INHALER INHALATION SCH ×2 (07:56→19:58)
[2019-01-12] MEDS ORDERED: ASPIRIN 81 MG PO ONE (09:00)
[2019-01-12] MEDS: INSULIN ASPART (NovoLOG) 100 UNIT/ML VIAL SQ SCH ×3 (09:11→18:21)
[2019-01-12] MEDS: GABAPENTIN 400 MG CAP PO SCH ×3 (09:16→21:16)
[2019-01-12] MEDS: ISOSORBIDE MONONITRATE ER 30 MG TAB.ER.24H PO SCH (09:16)
[2019-01-12] MEDS: CARVEDILOL 6.25 MG TAB PO SCH (09:16)
[2019-01-12] MEDS: DULoxetine HCL 30 MG CAPSULE.DR PO SCH ×2 (09:16→17:54)
--- NOTE | 2019-01-12 09:22 | P.PN ---
Subjective Patient is seen in follow-up for acute kidney injury on chronic kidney disease. Patient has chronic kidney disease stage III. Baseline creatinine in the range of 1.3-2 outpatient. Renal function is better today - cr 1.91. Patient had abnormal stress test. She underwent cardiac catheterization on January 07 which revealed critical lesion in the proximal LAD as well as total occlusion of the nondominant circumflex and mild disease in the RCA. Urine output is good. No active chest pain. Scheduled for cardiac catheterization again today for possible intervention. Vital signs are stable. General: The patient appeared well nourished and normally developed. HEENT: Head exam is unremarkable. Neck is without jugular venous distension. LUNGS: Lungs are clear to auscultation and percussion. Breath sounds decreased. HEART: Rate and Rhythm are regular. First and second heart sounds normal. No murmurs, rubs or gallops. ABDOMEN: Abdominal exam reveals normal bowel sounds. Non-tender and non- distended. No evidence of peritonitis. EXTREMITITES: Trace edema. Objective - Vital Signs Vital signs: Vital Signs Temp 97.8 F 01/12/19 08:00 Pulse 60 01/12/19 08:00 Resp 16 01/12/19 08:00 BP 149/57 01/12/19 08:00 Pulse Ox 99 01/12/19 08:00 Intake & Output 01/11/19 01/12/19 01/12/19 18:59 06:59 18:59 Intake Total 270 1484 Balance 270 1484 Weight 130.2 kg Intake: IV 30 40 Invasive Line 3 30 40 Intake, IV Titration 600 Amount Sodium Chloride 0.9% 1, 600 000 ml @ 75 mls/hr IV . [id number] [facility] Rx#:[id number] Oral 240 844 Other: Voiding Method Bedside Commode Bedside Commode # Voids 1 2 - Labs CBC & Chem 7: 01/12/19 06:47 01/12/19 06:47 Labs: Abnormal Lab Results - Last 24 Hours (Table) 01/11/19 01/12/19 01/12/19 Range/Units 16:47 06:24 06:47 RBC (3.80-5.40) m/uL Hgb (11.4-16.0) gm/dL Hct (34.0-46.0) % Plt Count (150-450) k/uL BUN 42 H (7-17) mg/dL Creatinine 1.91 H (0.52-1.04) mg/dL Glucose 149 H (74-99) mg/dL POC Glucose (mg/dL) 173 H 147 H (75-99) mg/dL 01/12/19 Range/Units 06:47 RBC 3.41 L (3.80-5.40) m/uL Hgb 9.9 L (11.4-16.0) gm/dL Hct 31.4 L (34.0-46.0) % Plt Count 123 L (150-450) k/uL BUN (7-17) mg/dL Creatinine (0.52-1.04) mg/dL Glucose (74-99) mg/dL POC Glucose (mg/dL) (75-99) mg/dL Assessment and Plan Plan: Assessment: 1. Chronic kidney disease stage IV with baseline creatinine near 1.5-2 secondary to diabetic kidney disease. 2. Chest pain status post abnormal stress test. She had cardiac catheteriza tion which revealed critical lesion of the proximal LAD, total occlusion of the nondominant circumflex and mild disease in the RCA. 3. Diabetes mellitus. 4. History of coronary artery disease status post 1 stent placement. 5. Metabolic alkalosis. Patient was maintained on oral sodium bicarbonate which has been discontinued. 6. Chronic kidney disease mineral bone disease maintained on PhosLo. 7. Mild acute kidney injury secondary to contrast-induced nephropathy. Creatinine peaked at 2.12 - 1.91 today. Plan: Continue normal saline at 100 mL an hour. Continue to monitor renal function and urine output closely. Patient is at relatively high risk for developing contrast-induced nephropathy due to underlying CKD and diabetes. This was discussed with the patient and she understands.
[2019-01-12] MEDS: CALCIUM ACETATE 667 MG CAP PO SCH ×3 (09:24→21:18)
[2019-01-12] MEDS: ALLOPURINOL 300 MG TAB PO SCH (09:26)
[2019-01-12] MEDS: ASPIRIN 81 MG PO SCH (09:27)
[2019-01-12 11:39] LABS: Glucose,Whole Blood 132 mg/dL (75-99)
[2019-01-12] MEDS ORDERED: LIDOCAINE 1% INJ 10MG/ML (20 ML MDV) ONE (11:54)
[2019-01-12] MEDS ORDERED: IV FLUID CONTINUATION 1,000 ML IV ONE (12:08)
[2019-01-12] MEDS ORDERED: NITROGLYCERIN SL TABS 0.4 MG TAB SUBLINGUAL ONE ×4 (12:24→12:45)
[2019-01-12] MEDS: NITROGLYCERIN SL TABS 0.4 MG TAB SUBLINGUAL ONE ×2 (12:25→12:30)
[2019-01-12] MEDS ORDERED: MIDAZOLAM (PF) 2 MG/2 ML VIAL IVP ONE (12:29)
[2019-01-12] MEDS ORDERED: LIDOCAINE 1% INJ 10MG/ML (20 ML MDV) SQ ONE (12:30)
[2019-01-12] MEDS ORDERED: BIVALIRUDIN BOLUS 250 MG/50 ML IV ONE (12:36)
[2019-01-12] MEDS ORDERED: BIVALIRUDIN 250 MG in SODIUM CHLORIDE 0.9% 50 ML IV ONE (12:37)
[2019-01-12] MEDS ORDERED: amLODIPine 5 MG TAB ONE (12:54)
[2019-01-12] MEDS ORDERED: amLODIPine 5 MG TAB PO ONE (12:56)
[2019-01-12] MEDS: NITROGLYCERIN 1000MCG/10ML SYRINGE INTRACORON ONE ×2 (12:58→13:01)
--- NOTE | 2019-01-12 12:58 | P.PN ---
Subjective Progress Note Date: 01/12/19 63-year-old female overweight who I have known for few years has been in [facility] for the last year and half known to have history of coronary disease with PCI and stent placement of the LAD back in 2011 history of hypertension hyperlipidemia chronic kidney disease COPD obstructive sleep apnea and history of PE in the past his non-to Dr. Myles in the past patient presented from [facility] to the emergency department at [facility] on 714 with complaint of midsternal chest pain started while she was sitting down felt mild lightheadedness and dizziness with mild palpitation cold sweat and nausea feeling the intensive her symptoms become much worse with exertion had radiated to the jaw and to the back slightly developed to have mild increased shortness of breath. Ended up coming to the emergency department her EKG showed first- degree AV block with left axis deviation left bundle-branch block with no major ST or T elevation troponin initially came back negative with mildly elevated creatinine at 2.17 with GFR of 24 only close to her baseline from last time. Patient had high suspicion for coronary artery disease and unstable angina with the current symptom patient was heparinize nitro and admitted to the hospital will be seen cardiology troponin will be repeated if elevated troponin patient might benefit from going for heart cath. The last ejection fraction from July 2018 was only 40 percentile with septal and apical hypokinesia and moderate mitral regurgitation at the time and was planned for medical management at the time. 01/06; patient underwent stress test this morning which failed and she is scheduled for heart catheterization for tomorrow. Repeat BUN 15 creatinine 1.91. She has been seen by Dr. Anderson with plan to hydrate patient prior to procedure. We will most likely keep the patient until to make sure renal function is stable. 01/07: Patient underwent heart catheterization today which found a critical lesion involving the proximal LAD which is calcified with mild plaque in the left main and also moderate disease in the diagonal. The circumflex coronary artery is totally occluded. Right has mild diffuse disease. Patient to be considered for revascularization. Dr. HAQUE ready to evaluate for possible stent placement of the LAD. The patient is felt to be high risk for bypass surgery. She has been afebrile, blood pressure 149/83, heart rate 78, pulse ox 98% on room air. Repeat lab work reveals BUN 40 and creatinine 1.76. Triglycerides 73, cholesterol 128, LDL 68, HDL 45. 7/18: Patient will undergo possible stenting of the LAD tomorrow. She is followed by Dr. Anderson and to receive 1 dose of oral Lasix. Repeat lab work reveals BUN 49 creatinine 1.77. Patient denies any chest pain or shortness of breath. Anticipate probable discharge to [facility] on Saturday or Saturday. 01/09: Patient is scheduled for stenting of the LAD today. Patient denies having any chest pain or shortness of breath. She remains afebrile, blood pressure 170/77, pulse ox 99% on 2 L nasal cannula, pulse 64. Repeat BUN 49 and creatinine 1.99, blood sugars run between 122 and 159. Platelet count 144. Anticipate possible discharge to [facility] tomorrow but most likely on Saturday to monitor renal function. 01/10: Repeat BUN 46 and creatinine 1.62. Blood pressure 132/63, afebrile, heart rate 66, pulse ox 99% on 2 L. PTCA has been delayed until Saturday at noon.Dr. Anderson has discontinued IV fluids and placed patient on Lasix 20 g oral daily. patient denies any new complaints. She denies any chest pain or shortness of breath. She states she is eating well. The patient is sleepy and nursing will check with her daughter to see if she will bring in her CPAP machine from [facility]. 01/11: Patient is awake and alert. She is denying having any chest pain, shortness of breath. She states she is eating okay. She does complain of constipation for which she would like lactulose which will be ordered. She states she has not had a bowel movement since admission. Her family was unable to bring in her CPAP from [facility]. Anticipate PTCA tomorrow. 01/12: Patient is scheduled for PTCA today. Patient denies any chest pain or shortness of breath. She denies any lightheadedness or dizziness. Once procedure is completed and patient stabilized, she will be discharged back to [facility]. Objective - Vital Signs Vital signs: Vital Signs Temp 97.8 F 01/12/19 08:00 Pulse 60 01/12/19 08:00 Resp 16 01/12/19 08:00 BP 149/57 01/12/19 08:00 Pulse Ox 99 01/12/19 08:00 Intake & Output 01/11/19 01/12/19 01/12/19 18:59 06:59 18:59 Intake Total 270 1484 Balance 270 1484 Weight 130.2 kg Intake: IV 30 40 Invasive Line 3 30 40 Intake, IV Titration 600 Amount Sodium Chloride 0.9% 1, 600 000 ml @ 75 mls/hr IV . [id number] [facility] Rx#:[id number] Oral 240 844 Other: Voiding Method Bedside Commode Bedside Commode Bedside Commode # Voids 1 2 - Exam Review of Systems CONSTITUTIONAL: No fever no chills. Morbidly overweight, denies daytime sleepiness EYES: No icterus sclerae, no conjunctivitis. EARS, NOSE, MOUTH, THROAT, and FACE: No sore throat, lymphadenopathy, carotid bruits or deformity. RESPIRATORY: Denies shortness of breath cough wheezes. CARDIOVASCULAR: Denies chest pain denies PND denies orthopnea denies palpitation. GASTROINTESTINAL: Abdominal discomfort with nausea no vomiting no diarrhea., No GI Bleed, no distention or masses. GENITOURINARY: Recurrent UTI with polyuria and incontinence., no kidney stones. INTEGUMENT/BREAST: Negative for any muscular injury with mild osteoarthritis.. HEMATOLOGIC/LYMPHATIC: Negative for bleed or purpura. MUSCULOSKELTAL: Generalized back and muscle and joint pain.. NEURLOGICAL: No LOC, Sz or syncope, blurred vision dizziness or abnormality. BEHAVIORAL/PSYCH: Negative. Physical exam: General Appearance: Alert, cooperative, no distress, appears stated age. Morbidly overweight. Patient resting comfortably in bed. Neck HEENT: Supple, no lymphadenopathy, no thyroid enlargement, no carotid bruits. Lungs: Decreased breath some bilaterally with fine rhonchi no crackles or wheezes. Chest Wall: Decrease expansion with deep inspiration no tenderness and no deformity was found on exam, no costochondral pain or discomfort. Heart: Regular rate and rhythm, S1, S2 positive street positive systolic murmur in the apex. Back: Symmetric, no curvature, ROM normal, no CVA tenderness. Abdomen: Soft, non-tender, bowel sounds active all four quadrants, no masses, no organomegaly. Extremities: 1+ edema decreased pulse in the dorsalis pedis and posterior tibial. Pulses: 2+ and symmetric. Skin: Skin color, texture, tugor normal, no rashes or lesions. Neurologic: Alert oriented x3 cranial nerves II through XII intact, no motor deficit, no abnormal balance or gait. - Labs CBC & Chem 7: 01/12/19 06:47 01/12/19 06:47 Labs: Abnormal Lab Results - Last 24 Hours (Table) 01/11/19 01/12/19 01/12/19 Range/Units 16:47 06:24 06:47 RBC (3.80-5.40) m/uL Hgb (11.4-16.0) gm/dL Hct (34.0-46.0) % Plt Count (150-450) k/uL BUN 42 H (7-17) mg/dL Creatinine 1.91 H (0.52-1.04) mg/dL Glucose 149 H (74-99) mg/dL POC Glucose (mg/dL) 173 H 147 H (75-99) mg/dL 01/12/19 01/12/19 Range/Units 06:47 11:37 RBC 3.41 L (3.80-5.40) m/uL Hgb 9.9 L (11.4-16.0) gm/dL Hct 31.4 L (34.0-46.0) % Plt Count 123 L (150-450) k/uL BUN (7-17) mg/dL Creatinine (0.52-1.04) mg/dL Glucose (74-99) mg/dL POC Glucose (mg/dL) 132 H (75-99) mg/dL Assessment and Plan Plan: 1 unstable angina with critical lesion in the proximal LAD. Possible stent placement of the LAD by Dr. SHABNAM Earl scheduled today. 2 coronary artery disease: Post OK in the past with PCI and stent placement of the LAD has been stable still on secondary prevention. 3 acute kidney injury, with chronic kidney disease stage III with worsening symptoms, patient will continue medical management repeat BUN/creatinine. Consult nephrology. 4 hypertension: Still on Coreg 6.25 mg twice a day. 5 hyperlipidemia: Remain on Lipitor 40 mg daily. 6 type 2 diabetes on insulin: Remain on NovoLog 7 units before meals meals with Trisiba 37 units at bedtime continue medication. 7 chronic systolic and diastolic heart failure. Continue patient on diuretics along with Coreg continue to watch for any fluid overload. 8 hypothyroidism: Remain on levothyroxine 175 g daily. 9 chronic anemia of chronic disease: Iron deficiency still on iron supplement along with Procrit. 10 mild COPD: Remain on Flovent along with Ventolin and O2 as needed. 11 obstructive sleep apnea: On CPAP. we'll check with daughter to bring in from [facility] 12 gout: With no flareup remain on allopurinol 300 mg daily. 13 chronic pain syndrome: Still on hydrocodone and oxycodone on an as-needed basis. 14 recurrent depression: Remain on Cymbalta 30 mg twice a day. 15 chronic neuropathy: Has been on gabapentin 400 mg 3 times a day. 16 GI prophylaxis/GERD: Still on pantoprazole. 17 DVT prophylaxis: On heparin subcutaneous. CODE STATUS: Full code. Discharge plan: Return to [facility] on Saturday. Social work is following Impression and plan of care have been directed as dictated by the signing physician. Elicia Elizabeth nurse practitioner acting as scribe for signing physician.
[2019-01-12] MEDS ORDERED: IOPAMIDOL-370 100ML BTL INJ ONE (13:00)
[2019-01-12] MEDS ORDERED: CLOPIDOGREL 75 MG TAB ONE (13:02)
[2019-01-12] MEDS ORDERED: RX INFO: IV CONTRAST WAS GIVEN 1 EACH MISC MISCELLANE PRN (13:05)
[2019-01-12] MEDS ORDERED: MAG HYDROX/AL HYDROX/SIMETH 30 ML CUP PO PRN (13:05)
[2019-01-12] MEDS ORDERED: CLOPIDOGREL 75 MG TAB PO ONE (13:08)
[2019-01-12] MEDS: SENNOSIDES 8.6 MG TAB PO SCH ×2 (13:42→17:54)
[2019-01-12] MEDS: SODIUM CHLORIDE 0.9% 1,000 ML IV SCH (13:43)
[2019-01-12] MEDS: ACETAMINOPHEN TAB 325 MG TAB PO PRN (13:50)
[2019-01-12 14:17] VITALS: BMI 49.2
[2019-01-12 16:54] LABS: Glucose,Whole Blood 131 mg/dL (75-99)
[2019-01-12] MEDS: LACTULOSE 20 GM/30 ML CUP PO SCH (17:18)
[2019-01-12] MEDS: NYSTATIN 100,000UNIT/GM CREAM 30 GM TUBE TOPICAL SCH ×4 (17:18→21:19)
[2019-01-12] MEDS: POLYETHYLENE GLYCOL 3350 17 GM POWD.PACK PO SCH (17:18)
[2019-01-12] MEDS: FERROUS SULFATE 325 MG TAB PO SCH (17:53)
[2019-01-12] MEDS: CARVEDILOL 12.5 MG TAB PO SCH (17:54)
--- NOTE | 2019-01-12 19:40 | CT ---
EXAMINATION TYPE: CT brain wo con DATE OF EXAM: 01/12/2019 HISTORY: Left sided weakness CT DLP: 1086.4 mGycm. Automated Exposure Control for Dose Reduction was Utilized. TECHNIQUE: CT scan of the head is performed without contrast. COMPARISON: CT brain February 07, 2018. FINDINGS: There is no acute intracranial hemorrhage or midline shift identified. There is diffuse v entricular and sulcal prominence consistent with diffuse age-related cerebral atrophy. There is low- attenuation in the periventricular white matter consistent with chronic small vessel ischemic change. The globes are intact and the visualized sinuses are predominantly clear. Significant improvement from prior. IMPRESSION: No acute intracranial hemorrhage or midline shift. There is mild diffuse age-related ce rebral atrophy and chronic small vessel ischemic change redemonstrated.
--- NOTE | 2019-01-12 20:13 | P.CNNES ---
History of Present Illness Consult date: 01/12/19 Requesting physician: Traci Bailon Reason for Consult: CVA Chief complaint: Left side weak History of Present Illness: This is a 63 RH female with multiple medical problems including HTN, HL, COURTNEY and CKD. She underwent a cardiac catheterization at noon. When she woke up, she was noted to be weak on the left side. Interventional neurology was not called. I was notified about this patient at 0607pm 01/12/19, at which point she was already out of the window for thrombolytics. She does report improving strength on the left side, but the LLE is still weaker than the right. Denies other focal neuro c/o such as diplopia, facial numbness or droop, dysarthria, dysphagia, aphasia, other focal numbness/weakness not mentioned above, tremors, bowel/bladder incontinence or ataxia. Review of Systems I have performed a 14-point organ ROS with patient that are negative except as per HPI. Past Medical History Past Medical History: Asthma, Coronary Artery Disease (CAD), Cancer, Heart Failure, COPD, Diabetes Mellitus, GI Bleed, Hyperlipidemia, Hypertension, Myocardial Infarction ([place]), Osteoarthritis (OA), Pulmonary Embolus (PE), Renal Disease, Rheumatoid Arthritis (RA), Sleep Apnea/CPAP/BIPAP, Syncope, Thyroid Disorder Additional Past Medical History / Comment(s): IDDM type II poorly controlled,uses cpap bilateral peripheral neuropathy bilateral hands/feet, CKD , UTIs, legally blind bilaterally-sees minimally, thyroid cancer with surgery, goiter, hashimotos, diverticular disease, 2013 upper and lower GI bleeds with blood loss anemia, gout, R humeral fracture with surgery, occasionally bladder incont.past falls, "lt ankle broke 3 places-SX DONE. pt stated "not walking but able to stand and pivot with med boot on," Last Myocardial Infarction Date:: 2009 History of Any Multi-Drug Resistant Organisms: None Reported Past Surgical History: Adenoidectomy, Back Surgery, Cholecystectomy, Heart Catheterization With Stent, Tonsillectomy Additional Past Surgical History / Comment(s): PCI with stent 2009, low back surgery, total R shoulder and total R knee arthroplasties, bilateral hand trigger finger surgeries, EGD, colonoscopy, L eye laser eye surgery for bleed, thyroidectomy.lt tib fib fx-plate and screws. Past Anesthesia/Blood Transfusion Reactions: No Reported Reaction Additional Past Anesthesia/Blood Transfusion Reaction / Comment(s): Pt has received blood in past without reaction. Date of Last Stent Placement:: 2009 Past Psychological History: Anxiety, Depression Additional Psychological History / Comment(s): Pt resides at [facility] currently. pt stated "not walking but able to stand and pivot (while wearing medi boot)to w/c. Smoking Status: Never smoker Past Alcohol Use History: None Reported Past Drug Use History: None Reported - Past Family History Mother Family Medical History: Asthma, CVA/TIA, Seizure Disorder Additional Family Medical History / Comment(s): epilepsy Father Family Medical History: COPD, Diabetes Mellitus Additional Family Medical History / Comment(s): many heart problems Medications and Allergies Home Medications Medication Instructions Recorded Confirmed Type Carvedilol [Coreg] 6.25 mg PO BID@0800,1700 02/23/15 01/04/19 History Sodium Bicarbonate 325 mg PO TID@0800,1400,199908/06/16 01/04/19 History Atorvastatin [Lipitor] 40 mg PO HS 11/21/17 01/04/19 History Calcium Acetate [PhosLo] 667 mg PO TID@0800,1400,199911/21/17 01/04/19 History DULoxetine HCL [Cymbalta] 30 mg PO BID@0800,1700 11/21/17 01/04/19 History Ferrous Sulfate [Iron (65 MG 325 mg PO DAILY@1700 11/21/17 01/04/19 History Elemental)] Fluticasone Propionate [Flovent 2 puff INHALATION RT-BID 11/21/17 01/04/19 History Hfa 110mcg] Insulin Aspart [NovoLOG Flexpen] 7 unit SQ AC-TID 11/21/17 01/04/19 History Levothyroxine Sodium [Synthroid] 175 mcg PO DAILY@0600 11/21/17 01/04/19 History Montelukast [Singulair] 10 mg PO HS 11/21/17 01/04/19 History Polyethylene Glycol 3350 [Miralax] 17 gm PO DAILY 11/21/17 01/04/19 History Acetaminophen [Tylenol] 650 mg PO Q4H PRN 08/19/18 01/04/19 History Albuterol Nebulized [Ventolin 2.5 mg INHALATION RT-QID PRN 08/19/18 01/04/19 History Nebulized] Bisacodyl [Dulcolax] 10 mg RECTAL DAILY PRN 08/19/18 01/04/19 History Calcium Carbonate [Tums] 1,000 mg PO TID PRN 08/19/18 01/04/19 History Dextran 70/Hypromellose [Genteal 1 drop BOTH EYES QID PRN 08/19/18 01/04/19 History Tears 0.1%-0.3% Drop] Insulin Degludec [Tresiba] 37 units SQ HS 08/19/18 01/04/19 History Mag Hydrox/Al Hydrox/Simeth 30 ml PO DAILY PRN 08/19/18 01/04/19 History [Maalox] Pantoprazole Sodium [Protonix] 40 mg PO DAILY 08/19/18 01/04/19 History Sennosides [Senna] 8.6 mg PO BID@0800,1700 08/19/18 01/04/19 History Gabapentin [Neurontin] 400 mg PO TID@0800,1400,2000 #9 cap 08/21/18 01/04/19 Rx oxyCODONE HCL [OxyIR] 5 mg PO Q4H PRN #18 tab 08/21/18 01/04/19 Rx Allopurinol [Zyloprim] 300 mg PO DAILY 01/04/19 01/04/19 History Cephalexin [Keflex] 500 mg PO Q6HR 01/04/19 01/04/19 History Epoetin Russ [Epogen] 20,000 unit SQ WE 01/04/19 01/04/19 History Furosemide [Lasix] 20 mg PO DAILY@0800 01/04/19 01/04/19 History Nystatin 100,000Unit/gm Cream 1 applic TOPICAL QID 01/04/19 01/04/19 History [Mycostatin Cream] Sucralfate [Carafate] 1 gm PO QID@06,11,1730,2130 01/04/19 01/04/19 History Allergies Allergy/AdvReac Type Severity Reaction Status Date / Time No Known Allergies Allergy Verified 01/04/19 21:25 Physical Examination - Vital Signs Vital Signs: Vital Signs Temp Pulse Pulse Pulse Resp BP BP 01/12/19 18:53 62 155/86 07/22/19 17:15 62 16 145/68 01/12/19 16:10 63 16 158/87 01/12/19 16:00 16 01/12/19 15:10 63 16 148/75 01/12/19 14:40 64 16 132/99 01/12/19 14:10 61 16 162/69 01/12/19 13:55 60 16 159/68 01/12/19 13:40 61 16 148/74 01/12/19 13:25 98.6 F 58 L 16 156/68 01/12/19 08:00 97.8 F 60 16 149/57 01/12/19 06:27 98.4 F 62 18 138/66 01/12/19 04:00 70 19 154/67 01/12/19 03:57 65 18 01/12/19 01:00 65 18 136/65 01/11/19 23:31 70 17 01/11/19 23:30 70 17 134/76 Pulse Ox 01/12/19 18:53 01/12/19 17:15 99 01/12/19 16:10 100 01/12/19 16:00 01/12/19 15:10 100 01/12/19 14:40 100 01/12/19 14:10 100 01/12/19 13:55 100 01/12/19 13:40 100 01/12/19 13:25 100 01/12/19 08:00 99 01/12/19 06:27 01/12/19 04:00 93 L 01/12/19 03:57 01/12/19 01:00 95 01/11/19 23:31 01/11/19 23:30 98 Intake and Output 01/12/19 01/12/19 01/12/19 06:59 14:59 22:59 Intake Total 1030 92.57 360 Output Total 400 Balance 1030 -307.43 360 Intake: IV 30 92.57 Invasive Line 3 30 Intake, IV Titration 600 Amount Sodium Chloride 0.9% 1, 600 000 ml @ 75 mls/hr IV . [id number] [facility] Rx#:[id number] Oral 400 360 Output: Urine 400 Other: Voiding Method Bedside Commode Bedside Commode Bedpan # Voids 2 Weight 130.2 kg 130.2 kg Gen NAD Pleasant and cooperative HEENT NCAT Sclera without icterus O/P clear Neck Supple No carotid bruit Cor RRR no m/r/g Lungs CTAB Abd Soft NTND +BS Ext Warm to touch No edema Neuro MS A+Ox4 Normal fluency Able to follow all commands CN PERRL VFF no APD EOMI no nystagmus or JAD No facial asymmetry Masseter's symmetric Hearing intact to normal voice bilaterally Speech not dysarthric Equal elevation of palate Tongue midline Sym shrug and SCM bilaterally Motor Normal bulk/tone No pronator drift +LLE drift but does not hit bed No tremors Strength 5/5 right 5-/5 LUE 4+/5 LLE Sens Intact to LT x4 No neglect or extinction Coord No dysmetria on FTN bilaterally DTRs 2+/4 sym throughout Toes downgoing bilaterally No clonus at achilles Gait Deferred NIHSS 1 for LLE drift Results - Laboratory Findings CBC and BMP: 01/12/19 06:47 01/12/19 06:47 Abnormal Lab Findings: Abnormal Labs 01/04/19 01/04/19 01/05/19 22:08 22:08 04:23 RBC Hgb 11.3 L Hct RDW 15.6 H Plt Count 143 L APTT Potassium Carbon Dioxide 31 H BUN 60 H Creatinine 2.17 H Glucose 110 H POC Glucose (mg/dL) Magnesium 2.5 H Troponin I 0.038 H* Albumin 3.3 L 01/05/19 01/05/19 01/05/19 06:34 07:31 11:44 RBC Hgb Hct RDW Plt Count APTT 45.6 H Potassium Carbon Dioxide BUN Creatinine Glucose POC Glucose (mg/dL) 105 H 114 H Magnesium Troponin I Albumin 01/05/19 01/05/19 01/06/19 16:55 20:11 06:31 RBC Hgb Hct RDW Plt Count APTT Potassium Carbon Dioxide BUN Creatinine Glucose POC Glucose (mg/dL) 120 H 196 H 72 L Magnesium Troponin I Albumin 01/06/19 01/06/19 01/06/19 07:50 12:10 16:48 RBC Hgb Hct RDW Plt Count APTT Potassium Carbon Dioxide 35 H BUN 50 H Creatinine 1.91 H Glucose POC Glucose (mg/dL) 107 H 185 H Magnesium Troponin I Albumin 01/06/19 01/07/19 01/07/19 18:34 02:50 02:50 RBC Hgb Hct RDW Plt Count APTT 31.7 H Potassium Carbon Dioxide 31 H BUN 48 H Creatinine 1.76 H Glucose 118 H POC Glucose (mg/dL) 168 H Magnesium Troponin I Albumin 01/07/19 01/07/19 01/07/19 09:33 11:34 16:34 RBC Hgb Hct RDW Plt Count APTT Potassium Carbon Dioxide BUN Creatinine Glucose POC Glucose (mg/dL) 105 H 110 H 221 H Magnesium Troponin I Albumin 01/08/19 01/08/19 01/08/19 05:39 06:26 11:56 RBC Hgb Hct RDW Plt Count APTT Potassium 5.2 H Carbon Dioxide BUN 49 H Creatinine 1.77 H Glucose 159 H POC Glucose (mg/dL) 158 H 180 H Magnesium Troponin I Albumin 01/08/19 01/08/19 01/09/19 16:48 20:54 05:59 RBC Hgb Hct RDW 15.6 H Plt Count 144 L APTT Potassium Carbon Dioxide BUN Creatinine Glucose POC Glucose (mg/dL) 155 H 122 H Magnesium Troponin I Albumin 01/09/19 01/09/19 01/09/19 05:59 06:20 11:49 RBC Hgb Hct RDW Plt Count APTT Potassium Carbon Dioxide BUN 49 H Creatinine 1.99 H Glucose 157 H POC Glucose (mg/dL) 151 H 159 H Magnesium Troponin I Albumin 01/09/19 01/09/19 01/09/19 14:09 17:01 20:51 RBC Hgb Hct RDW Plt Count APTT Potassium Carbon Dioxide BUN Creatinine Glucose POC Glucose (mg/dL) 155 H 235 H 131 H Magnesium Troponin I Albumin 01/10/19 01/10/19 01/10/19 05:44 06:24 11:55 RBC Hgb Hct RDW Plt Count APTT Potassium Carbon Dioxide BUN 46 H Creatinine 1.62 H Glucose 122 H POC Glucose (mg/dL) 130 H 114 H Magnesium Troponin I Albumin 01/10/19 01/10/19 01/11/19 17:07 20:22 05:34 RBC Hgb Hct RDW Plt Count APTT Potassium Carbon Dioxide 31 H BUN 45 H Creatinine 2.12 H Glucose 108 H POC Glucose (mg/dL) 115 H 147 H Magnesium Troponin I Albumin 01/11/19 01/11/19 01/11/19 05:34 06:20 16:47 RBC 3.55 L Hgb 10.3 L Hct 32.8 L RDW 15.8 H Plt Count 119 L APTT Potassium Carbon Dioxide BUN Creatinine Glucose POC Glucose (mg/dL) 108 H 173 H Magnesium Troponin I Albumin 01/12/19 01/12/19 01/12/19 06:24 06:47 06:47 RBC 3.41 L Hgb 9.9 L Hct 31.4 L RDW Plt Count 123 L APTT Potassium Carbon Dioxide BUN 42 H Creatinine 1.91 H Glucose 149 H POC Glucose (mg/dL) 147 H Magnesium Troponin I Albumin 01/12/19 01/12/19 11:37 16:40 RBC Hgb Hct RDW Plt Count APTT Potassium Carbon Dioxide BUN Creatinine Glucose POC Glucose (mg/dL) 132 H 131 H Magnesium Troponin I Albumin - Diagnostic Findings Additional findings: CT Head wo cont 01/12/19. No ICH. Nil acute. I have reviewed all neuroimages myself. Assessment and Plan Assessment: New left lower>upper extremity weakness s/p PTCA, possibly small cardioembolic phenomenon Plan: -Already on DAPT -Statin therapy -MRI Brain wo wyatt -Carotid duplex -Permissive HTN <220/120 -PT/OT/SP per protocol -DVT prophylaxis: Heparin -Stroke education given to patient -d/w patient. All questions answered. Thank you for this consultation. Please call with ?. Time with Patient: Greater than 30 (Time spent in direct patient care, greater than 50% of which was spent in [id number] counseling and coordination of care: 70 minutes.)
[2019-01-12 21:09] LABS: Glucose,Whole Blood 185 mg/dL (75-99)
[2019-01-12] MEDS: MONTELUKAST 10 MG TAB PO SCH (21:18)
[2019-01-12] MEDS: INSULIN DETEMIR (LEVEMIR) 100 UNIT/ML SYR SQ SCH (21:19)
--- NOTE | 2019-01-12 23:17 | CC ---
CARDIAC CATHETERIZATION REPORT DATE OF SERVICE: 01/12/2019 PROCEDURE: PTCA and stenting of proximal LAD with a drug-eluting stent. PERFORMED BY: Dr. Bebeto Earl. SEDATION: Moderate conscious sedation time was 34 minutes. CLINICAL INFORMATION: Mrs. Yocasta Ho is a 63-year-old lady, a patient who was seen by Dr. Maya, has a known history of CAD. She underwent stenting of RCA in the past. She presented with a non-ST elevation DC and Dr. Maya performed a cardiac cath last week which revealed total occlusion of circumflex after a small obtuse marginal branch. The previously stented RCA was widely patent. The proximal circumflex had a 70% to 80% stenosis. Mid circumflex had a long 40% lesion. The patient was advised intervention but before the procedure because of underlying diabetes and CKD and creatinine that was elevated, she was hydrated. Creatinine went up from 1.76 to 2.12 and after hydration came back to 1.9 and therefore I recommended that we will perform procedure today. Risks, benefits, options and rationale were discussed in great length with Mrs. Ho. PROCEDURE NOTE: Under local anesthesia and strict aseptic precautions, a 6-Monegasque introducer was placed in the left femoral artery. Using an initially JL L4 and JL3.5, I could not get good seating of the guide catheter. I switched over to an XB lad 4.0 catheter. With this, I got much better seating. I used a run-through wire to cross the lesion in the LAD. Predilatation was performed with a 3.0 caliber 8 mm long NC Trek balloon up to 12 atmospheres. There was modest improvement. Just beyond the area of disease, there was a fair sized diagonal branch that came off. I then deployed a 3.25 caliber 8 mm long and Xience stent and the distal aspect of the stent was placed just before the diagonal branch. The stent was deployed at 14 atmospheres. Patient had chest pain and precordial ST elevation. Excellent angiographic result was achieved without complication. The sheath was taken out and Angio-Seal device used to secure hemostasis. The patient received Angiomax bolus and infusion as per protocol and also received 600 mg of Plavix orally. The patient will be hydrated very carefully and her BMP will be checked in the morning. Results were discussed with the patient but there was no family members available. ANESTHESIA: Moderate conscious sedation time was 34 minutes. She was administered Versed and oxygen saturation, hemodynamics and EKG were monitored closely. Excellent angiographic result without complication was achieved. MARYELLEN / PRISCILLA: [id number] /
[2019-01-13] MEDS: SODIUM CHLORIDE 0.9% 1,000 ML IV SCH ×2 (00:03→03:39)
[2019-01-13 06:25] LABS: Glucose,Whole Blood 127 mg/dL (75-99)
[2019-01-13] MEDS: LEVOTHYROXINE 100 MCG TAB PO SCH (06:37)
[2019-01-13] MEDS: PANTOPRAZOLE 40 MG TABLET PO SCH (06:37)
[2019-01-13] MEDS: SUCRALFATE 1 GM TAB PO SCH ×2 (06:37→12:53)
[2019-01-13] MEDS: LEVOTHYROXINE 75 MCG TAB PO SCH (06:37)
[2019-01-13] MEDS: INSULIN ASPART (NovoLOG) 100 UNIT/ML VIAL SQ SCH ×2 (06:43→12:53)
[2019-01-13 06:49] LABS: Basophils % (A) 0 %; Calcium 9.3 mg/dL (8.4-10.2); Eosinophils # (A) 0.2 k/uL (0-0.7); Eosinophils % (A) 4 %; HCT 35.1 % (34.0-46.0); HGB 10.9 gm/dL (11.4-16.0); Lymphocytes # (A) 1.3 k/uL (1.0-4.8); Lymphocytes % (A) 20 %; MCH 28.9 pg (25.0-35.0); MCHC 30.9 g/dL (31.0-37.0); MCV 93.6 fL (80.0-100.0); Magnesium 2.1 mg/dL (1.6-2.3); Monocytes # (A) 0.3 k/uL (0-1.0); Monocytes % (A) 5 %; Neutrophils # (A) 4.8 k/uL (1.3-7.7); Neutrophils % (A) 71 %; Platelet Count 150 k/uL (150-450); Potassium 4.4 mmol/L (3.5-5.1); RBC 3.75 m/uL (3.80-5.40); RDW 15.4 % (11.5-15.5); WBC 6.7 k/uL (3.8-10.6)
[2019-01-13] MEDS: FLUTICASONE 110 MCG INHALER INHALATION SCH (07:33)
[2019-01-13 08:11] VITALS: RESP 20
--- NOTE | 2019-01-13 08:50 | US ---
EXAMINATION TYPE: US carotid duplex BILAT DATE OF EXAM: 01/13/2019 COMPARISON: Previous exam 02/10/2018 CLINICAL HISTORY: CVA. EXAM MEASUREMENTS: RIGHT: Peak Systolic Velocity (PSV) cm/sec ----- Right CCA: 59.2 ----- Right ICA: 176.7 ----- Right ECA: 102.1 ICA/CCA ratio: 3.0 RIGHT: End Diastole cm/sec ----- Right CCA: 13.0 ----- Right ICA: 36.4 ----- Right ECA: 10.4 LEFT: Peak Systolic Velocity (PSV) cm/sec ----- Left CCA: 66.7 ----- Left ICA: 147.5 ----- Left ECA: 109.7 ICA/CCA ratio: 2.2 LEFT: End Diastole cm/sec ----- Left CCA: 10.6 ----- Left ICA: 24.6 ----- Left ECA: 10.6 VERTEBRALS (direction of flow): Right Vertebral: Antegrade Left Vertebral: Antegrade Rhythm: Normal Tortuous ICA's bilaterally more so on right with mild plaque, increased velocities may be due to tort uosity. Grayscale, color Doppler, spectral Doppler imaging performed of the carotid arteries. Waveform analys is shows elevated velocities which may be related to tortuosity of the internal carotid arteries. IMPRESSION: Elevated velocities felt likely to be due to tortuosity, CTA or MRA could be performed f or additional evaluation of the internal carotid arteries. Criteria for Assigning % of Stenosis / Diameter reduction (Estimation based on the indirect measurements of the internal carotid artery velocities (ICA PSV). 1. Normal (no stenosis)=ICA PSV < 125 cm/s: ratio < 2.0: ICA EDV<40 cm/s. 2. Less than 50% stenosis=ICA PSV < 125 cm/s: ratio < 2.0: ICA EDV<40 cm/s. 3. 50 to 69% stenosis=ICA PSV of 125 to 230 cm/s: ration 2.0 ? 4.0: ICA EDV 40-100 cm/s. 4. Greater than 70% stenosis to near occlusion= ICA PSV > 230 cm/s: ratio > 4.0: ICA EDV > 100 cm/s. 5. Near occlusion= ICA PSV velocities may be low or undetectable: variable ratio and ICA EDV. 6. Total occlusion=unable to detect flow.
[2019-01-13] MEDS ORDERED: CLOPIDOGREL 75 MG TAB PO SCH (09:00)
[2019-01-13] MEDS: SENNOSIDES 8.6 MG TAB PO SCH (09:12)
[2019-01-13] MEDS: CALCIUM ACETATE 667 MG CAP PO SCH ×2 (09:12→12:53)
[2019-01-13] MEDS: DULoxetine HCL 30 MG CAPSULE.DR PO SCH (09:12)
[2019-01-13] MEDS: CARVEDILOL 12.5 MG TAB PO SCH (09:12)
[2019-01-13] MEDS: POLYETHYLENE GLYCOL 3350 17 GM POWD.PACK PO SCH ×2 (09:13→09:21)
[2019-01-13] MEDS: ASPIRIN 81 MG PO SCH (09:13)
[2019-01-13] MEDS: GABAPENTIN 400 MG CAP PO SCH ×2 (09:13→14:38)
[2019-01-13] MEDS: ISOSORBIDE MONONITRATE ER 30 MG TAB.ER.24H PO SCH (09:13)
[2019-01-13] MEDS: ALLOPURINOL 300 MG TAB PO SCH (09:13)
[2019-01-13] MEDS: LACTULOSE 20 GM/30 ML CUP PO SCH (09:14)
[2019-01-13] MEDS: NYSTATIN 100,000UNIT/GM CREAM 30 GM TUBE TOPICAL SCH ×2 (09:21→12:50)
--- NOTE | 2019-01-13 10:06 | P.PN ---
Subjective Progress Note Date: 01/13/19 This is a pleasant 63-year-old female past medical history significant for coronary artery disease status post stent placement to the proximal LAD in 2011, hypertension, dyslipidemia, diabetes mellitus, COPD, obstructive sleep apnea, chronic kidney disease and history of PE in the past. She is to follow the office Dr. Myles that hasn't followed up since 2011. She presented to the hospital with symptoms of chest discomfort and underwent a cardiac catheterization by Dr. Maya which revealed a critical lesion involving the proximal LAD which is calcified, with mild plaque and the left main and moderate disease in diagonal. Circumflex coronary artery is totally occluded. The right had mild diffuse disease. Yesterday the patient underwent angioplasty and stenting of the LAD by Dr. Keyona Earl, she was seen and examined this morning, denies any chest pain or difficulty in breathing. EKG was reviewed which did not show any changes from post-PCI. White blood cell count 6.7, h emoglobin 10.9, platelet count 150, sodium 142, potassium 4.4, BUN 36 and creatinine 1.7. Magnesium 2.1. Objective - Vital Signs Vital signs: Vital Signs Temp 98.5 F 01/12/19 20:00 Pulse 69 01/13/19 08:00 Resp 20 01/13/19 08:00 BP 141/64 01/13/19 08:00 Pulse Ox 96 01/13/19 08:00 Intake & Output 01/12/19 01/13/19 01/13/19 18:59 06:59 18:59 Intake Total 452.57 1300 360 Output Total 400 Balance 52.57 1300 360 Weight 130.2 kg 129.9 kg Intake: IV 92.57 Intake, IV Titration 900 Amount Sodium Chloride 0.9% 1, 900 000 ml @ 75 mls/hr IV . [id number] [facility] Rx#:[id number] Oral 360 400 360 Output: Urine 400 Other: Voiding Method Bedpan Bedpan # Voids 3 - Exam PHYSICAL EXAMINATION: GENERAL: 63-year-old female in no acute distress at the time of my examination HEENT: Head is atraumatic, normocephalic. Pupils equal, round. Sclera anicteric. Conjunctiva are clear. Mucous membranes of the mouth are moist. Neck is supple. There is no elevated jugular venous pressure. No carotid bruit is heard. HEART EXAMINATION: Heart S1, S2 normal. No murmur or gallop heard. CHEST EXAMINATION: Lungs are clear to auscultation and precussion. No chest wall tenderness is noted on palpation or with deep breathing. ABDOMEN: Soft, nontender. Bowel sounds are heard. No organomegaly noted. EXTREMITIES: 2+ peripheral pulses with no evidence of peripheral edema and no calf tenderness noted. Left groin soft, no evidence of any hematoma. NEUROLOGIC patient is awake, alert and oriented X3. . - Labs CBC & Chem 7: 01/13/19 05:41 01/13/19 05:41 Labs: Abnormal Lab Results - Last 24 Hours (Table) 01/12/19 01/12/19 01/12/19 Range/Units 11:37 16:40 21:08 RBC (3.80-5.40) m/uL Hgb (11.4-16.0) gm/dL MCHC (31.0-37.0) g/dL Chloride (98-107) mmol/L BUN (7-17) mg/dL Creatinine (0.52-1.04) mg/dL Glucose (74-99) mg/dL POC Glucose (mg/dL) 132 H 131 H 185 H (75-99) mg/dL 01/13/19 01/13/19 01/13/19 Range/Units 05:41 05:41 06:24 RBC 3.75 L (3.80-5.40) m/uL Hgb 10.9 L (11.4-16.0) gm/dL MCHC 30.9 L (31.0-37.0) g/dL Chloride 109 H (98-107) mmol/L BUN 36 H (7-17) mg/dL Creatinine 1.70 H (0.52-1.04) mg/dL Glucose 118 H (74-99) mg/dL POC Glucose (mg/dL) 127 H (75-99) mg/dL Assessment and Plan Plan: Assessment and Plan 1 unstable angina with critical lesion in the proximal LAD. Status post stent placement of the LAD by Dr. SHABNAM Earl. 2 coronary artery disease: Post PA in the past with PCI and stent placement of the LAD . 3 acute kidney injury, with chronic kidney disease stage III 4 hypertension 5 hyperlipidemia 6 type 2 diabetes 7 chronic systolic and diastolic heart failure. 8 hypothyroidism 9 chronic anemia of chronic disease 10 mild COPD 11 obstructive sleep apnea 12 gout 13 chronic pain syndrome 14 recurrent depression 15 chronic neuropathy Plan From Cardiology's perspective, patient may be able to be discharged home today. We'll make her a follow-up appointment in the office post discharge. DNP note has been reviewed, I agree with a documented findings and plan of care. Patient was seen and examined.
--- NOTE | 2019-01-13 12:00 | P.DS ---
Providers Date of admission: 01/06/19 15:01 Expected date of discharge: 01/13/19 Attending physician: Kg Greenwood Consults: 01/04/19 23:24 Consult Physician Urgent Consulting Provider: Jacky Shannon Consult Reason/Comments: unstable angin Do you want consulting provider notified?: Yes 01/05/19 10:57 Consult Physician Routine Consulting Provider: Merary Spencer Consult Reason/Comments: ckd, may require cath Do you want consulting provider notified?: Yes 01/12/19 13:05 Consult Physician Routine Consulting Provider: [facility] Consult Reason/Comments: Post Interventional patient Do you want consulting provider notified?: Already Contacted 01/12/19 18:00 Consult Physician Urgent Consulting Provider: Elise Goodman Consult Reason/Comments: LEFT LEG NUMBNESS, LEFT ARM AND LEG WEAKNESS Do you want consulting provider notified?: Yes Primary care physician: [facility] Course: 63-year-old female overweight who I have known for few years has been in [facility] for the last year and half known to have history of coronary disease with PCI and stent placement of the LAD back in 2011 history of hypertension hyperlipidemia chronic kidney disease COPD obstructive sleep apnea and history of PE in the past his non-to Dr. Myles in the past patient presented from [facility] to the emergency department at [facility] on [facility] with complaint of midsternal chest pain started while she was sitting down felt mild lightheadedness and dizziness with mild palpitation cold sweat and nausea feeling the intensive her symptoms become much worse with exertion had radiated to the jaw and to the back slightly developed to have mild increased shortness of breath. Ended up coming to the emergency department her EKG showed first- degree AV block with left axis deviation left bundle-branch block with no major ST or T elevation troponin initially came back negative with mildly elevated creatinine at 2.17 with GFR of 24 only close to her baseline from last time. Patient had high suspicion for coronary artery disease and unstable angina with the current symptom patient was heparinize nitro and admitted to the hospital will be seen cardiology troponin will be repeated if elevated troponin patient might benefit from going for heart cath. The last ejection fraction from July 2018 was only 40 percentile with septal and apical hypokinesia and moderate mitral regurgitation at the time and was planned for medical management at the time. 01/06; patient underwent stress test this morning which failed and she is scheduled for heart catheterization for tomorrow. Repeat BUN 15 creatinine 1.91. She has been seen by Dr. Anderson with plan to hydrate patient prior to procedure. We will most likely keep the patient until to make sure renal function is stable. 01/07: Patient underwent heart catheterization today which found a critical lesion involving the proximal LAD which is calcified with mild plaque in the left main and also moderate disease in the diagonal. The circumflex coronary artery is totally occluded. Right has mild diffuse disease. Patient to be considered for revascularization. Dr. HAQUE ready to evaluate for possible stent placement of the LAD. The patient is felt to be high risk for bypass surgery. She has been afebrile, blood pressure 149/83, heart rate 78, pulse ox 98% on room air. Repeat lab work reveals BUN 40 and creatinine 1.76. Triglycerides 73, cholesterol 128, LDL 68, HDL 45. 01/08: Patient will undergo possible stenting of the LAD tomorrow. She is followed by Dr. Anderson and to receive 1 dose of oral Lasix. Repeat lab work reveals BUN 49 creatinine 1.77. Patient denies any chest pain or shortness of breath. Anticipate probable discharge to [facility] on Saturday or Saturday. 01/09: Patient is scheduled for stenting of the LAD today. Patient denies having any chest pain or shortness of breath. She remains afebrile, blood pressure 170/77, pulse ox 99% on 2 L nasal cannula, pulse 64. Repeat BUN 49 and creatinine 1.99, blood sugars run between 122 and 159. Platelet count 144. Anticipate possible discharge to [facility] tomorrow but most likely on Saturday to monitor renal function. 01/10: Repeat BUN 46 and creatinine 1.62. Blood pressure 132/63, afebrile, heart rate 66, pulse ox 99% on 2 L. PTCA has been delayed until Saturday at noon.Dr. Anderson has discontinued IV fluids and placed patient on Lasix 20 g oral daily. patient denies any new complaints. She denies any chest pain or shortness of breath. She states she is eating well. The patient is sleepy and nursing will check with her daughter to see if she will bring in her CPAP machine from [facility]. 01/11: Patient is awake and alert. She is denying having any chest pain, shortness of breath. She states she is eating okay. She does complain of constipation for which she would like lactulose which will be ordered. She states she has not had a bowel movement since admission. Her family was unable to bring in her CPAP from [facility]. Anticipate PTCA tomorrow. 01/12: Patient is scheduled for PTCA today. Patient denies any chest pain or shortness of breath. She denies any lightheadedness or dizziness. Once procedure is completed and patient stabilized, she will be discharged back to [facility]. 01/13: Yesterday, patient underwent successful PTCA and stenting of the proximal LAD with a drug-eluting stent. Following the procedure patient complained of left arm and leg weakness. She states it was very severe and she couldn't move them. She also had some tingling which she states the symptoms started going away on the leg and gradually worked up. This morning patient is seen and symptoms have completely resolved. She denies any weakness on her left side and has been ambulatory without difficulty. She is at her baseline. A CAT scan of the brain showed no acute intracranial hemorrhage or midline shift. There is mild diffuse age-related cerebral atrophy and chronic small vessel ischemic change. Carotid Doppler study reveals elevated velocities felt likely to be due to tortuosity. CTA or MRA could be performed for additional evaluation of the internal carotid arteries. This may be done as an outpatient. Patient has been seen by Dr. Goodman, neurologist, diagnosing possibly small cardioembolic phenomenon. Repeat creatinine is 1.7. Patient will be prepared for return to [facility] today in stable condition. Discharge diagnoses: 1 non-ST elevated myocardial infarction with critical lesion in the proximal LAD status post PTCA and stenting of the proximal LAD. 2 coronary artery disease: Post [place] in the past with PCI and stent placement of the LAD 3 acute kidney injury, with chronic kidney disease stage III 4 hypertension 5 hyperlipidemia 6 type 2 diabetes on insulin 7 chronic systolic and diastolic heart failure. 8 hypothyroidism 9 chronic anemia of chronic disease 10 mild COPD 11 obstructive sleep apnea: On CPAP. 12 gout, chronic 13 chronic pain syndrome 14 recurrent depression 15 chronic neuropathy . Discharge plan: Return to [facility] under the care Dr. East Impression and plan of care have been directed as dictated by the signing physician. Elicia Elizabeth nurse practitioner acting as scribe for signing physician. Patient Condition at Discharge: Good Plan - Discharge Summary New Discharge Prescriptions: New Aspirin 81 mg PO DAILY #30 chew Carvedilol [Coreg*] 12.5 mg PO BID@0800,1700 #60 tab Isosorbide Mononitrate ER [Imdur] 30 mg PO DAILY #30 tab.er.24h Nitroglycerin Sl Tabs [Nitrostat] 0.4 mg SUBLINGUAL Q5M PRN #25 tab PRN Reason: Chest Pain Clopidogrel [Plavix] 75 mg PO DAILY #30 tab Lactulose [Cephulac] 30 gm PO DAILY ml Continue Sodium Bicarbonate 325 mg PO TID@0800,1400,1999 Insulin Aspart [NovoLOG Flexpen] 7 unit SQ AC-TID Calcium Acetate [PhosLo] 667 mg PO TID@0800,1400,1999 Montelukast [Singulair] 10 mg PO HS Polyethylene Glycol 3350 [Miralax] 17 gm PO DAILY Levothyroxine Sodium [Synthroid] 175 mcg PO DAILY@0600 Fluticasone Propionate [Flovent Hfa 110mcg] 2 puff INHALATION RT-BID Ferrous Sulfate [Iron (65 MG Elemental)] 325 mg PO DAILY@1700 DULoxetine HCL [Cymbalta] 30 mg PO BID@0800,1700 Atorvastatin [Lipitor] 40 mg PO HS Acetaminophen [Tylenol] 650 mg PO Q4H PRN PRN Reason: Pain Or Fever > 100.5 Albuterol Nebulized [Ventolin Nebulized] 2.5 mg INHALATION RT-QID PRN PRN Reason: Shortness Of Breath Or Wheezing Bisacodyl [Dulcolax] 10 mg RECTAL DAILY PRN PRN Reason: Constipation Calcium Carbonate [Tums] 1,000 mg PO TID PRN PRN Reason: Indigestion Dextran 70/Hypromellose [Genteal Tears 0.1%-0.3% Drop] 1 drop BOTH EYES QID PRN PRN Reason: Dry Eye(S) Insulin Degludec [Tresiba] 37 units SQ HS Mag Hydrox/Al Hydrox/Simeth [Maalox] 30 ml PO DAILY PRN PRN Reason: Constipation Pantoprazole Sodium [Protonix] 40 mg PO DAILY Sennosides [Senna] 8.6 mg PO BID@0800,1700 Nystatin 100,000Unit/gm Cream [Mycostatin Cream] 1 applic TOPICAL QID Sucralfate [Carafate] 1 gm PO QID@06,11,1730,2130 Furosemide [Lasix] 20 mg PO DAILY@0800 Epoetin Russ [Epogen] 20,000 unit SQ WE Allopurinol [Zyloprim] 300 mg PO DAILY Gabapentin [Neurontin] 400 mg PO TID@0800,1400,1999 #9 cap oxyCODONE HCL [OxyIR] 5 mg PO Q4H PRN #18 tab PRN Reason: Pain Discontinued Carvedilol [Coreg] 6.25 mg PO BID@0800,1700 Cephalexin [Keflex] 500 mg PO Q6HR Discharge Medication List Sodium Bicarbonate 325 mg PO TID@0800,1400,199908/06/16 [History] Atorvastatin [Lipitor] 40 mg PO HS 11/21/17 [History] Calcium Acetate [PhosLo] 667 mg PO TID@0800,1400,199911/21/17 [History] DULoxetine HCL [Cymbalta] 30 mg PO BID@0800,1700 11/21/17 [History] Ferrous Sulfate [Iron (65 MG Elemental)] 325 mg PO DAILY@1700 11/21/17 [History] Fluticasone Propionate [Flovent Hfa 110mcg] 2 puff INHALATION RT-BID 11/21/17 [History] Insulin Aspart [NovoLOG Flexpen] 7 unit SQ AC-TID 11/21/17 [History] Levothyroxine Sodium [Synthroid] 175 mcg PO DAILY@0600 11/21/17 [History] Montelukast [Singulair] 10 mg PO HS 11/21/17 [History] Polyethylene Glycol 3350 [Miralax] 17 gm PO DAILY 11/21/17 [History] Acetaminophen [Tylenol] 650 mg PO Q4H PRN 08/19/18 [History] Albuterol Nebulized [Ventolin Nebulized] 2.5 mg INHALATION RT-QID PRN 08/19/18 [History] Bisacodyl [Dulcolax] 10 mg RECTAL DAILY PRN 08/19/18 [History] Calcium Carbonate [Tums] 1,000 mg PO TID PRN 08/19/18 [History] Dextran 70/Hypromellose [Genteal Tears 0.1%-0.3% Drop] 1 drop BOTH EYES QID PRN 08/19/18 [History] Insulin Degludec [Tresiba] 37 units SQ HS 08/19/18 [History] Mag Hydrox/Al Hydrox/Simeth [Maalox] 30 ml PO DAILY PRN 08/19/18 [History] Pantoprazole Sodium [Protonix] 40 mg PO DAILY 08/19/18 [History] Sennosides [Senna] 8.6 mg PO BID@0800,1700 08/19/18 [History] Allopurinol [Zyloprim] 300 mg PO DAILY 01/04/19 [History] Epoetin Russ [Epogen] 20,000 unit SQ WE 01/04/19 [History] Furosemide [Lasix] 20 mg PO DAILY@0800 01/04/19 [History] Nystatin 100,000Unit/gm Cream [Mycostatin Cream] 1 applic TOPICAL QID 01/04/19 [History] Sucralfate [Carafate] 1 gm PO QID@06,11,1730,2130 01/04/19 [History] Aspirin 81 mg PO DAILY #30 chew 01/13/19 [Rx] Carvedilol [Coreg*] 12.5 mg PO BID@0800,1700 #60 tab 01/13/19 [Rx] Clopidogrel [Plavix] 75 mg PO DAILY #30 tab 01/13/19 [Rx] Gabapentin [Neurontin] 400 mg PO TID@0800,1400,2000 #9 cap 01/13/19 [Rx] Isosorbide Mononitrate ER [Imdur] 30 mg PO DAILY #30 tab.er.24h 01/13/19 [Rx] Lactulose [Cephulac] 30 gm PO DAILY ml 01/13/19 [Rx] Nitroglycerin Sl Tabs [Nitrostat] 0.4 mg SUBLINGUAL Q5M PRN #25 tab 01/13/19 [Rx] oxyCODONE HCL [OxyIR] 5 mg PO Q4H PRN #18 tab 01/13/19 [Rx] Follow up Appointment(s)/Referral(s): Yandel Earl MD [STAFF PHYSICIAN] - 1 Week (Spoke to optimization analyst. Office will call [facility] with appointment time) Cristiano East MD [Primary Care Provider] - 1 Week (at [facility]) Patient Instructions/Handouts: *Surgery [facility] - After Heart Catheterization - Cloth Washer Instructions Discharge Disposition: TRANSFER TO SNF/ECF
[2019-01-13 12:05] LABS: Glucose,Whole Blood 118 mg/dL (75-99)
--- NOTE | 2019-01-13 12:19 | P.PN ---
Subjective Patient is seen in follow-up for acute kidney injury on chronic kidney disease. Patient has chronic kidney disease stage III. Baseline creatinine in the range of 1.3-2 outpatient. Renal function is better today - cr 1.7. Patient had abnormal stress test. She underwent cardiac catheterization on January 07 which revealed critical lesion in the proximal LAD as well as total occlusion of the nondominant circumflex and mild disease in the RCA. She underwent another cardiac catheterization on January 12 with a stent placed to the proximal LAD. Ur ine output is good. No active chest pain. Vital signs are stable. General: The patient appeared well nourished and normally developed. HEENT: Head exam is unremarkable. Neck is without jugular venous distension. LUNGS: Lungs are clear to auscultation and percussion. Breath sounds decreased. HEART: Rate and Rhythm are regular. First and second heart sounds normal. No murmurs, rubs or gallops. ABDOMEN: Abdominal exam reveals normal bowel sounds. Non-tender and non- distended. No evidence of peritonitis. EXTREMITITES: Trace edema. Objective - Vital Signs Vital signs: Vital Signs Temp 98.5 F 01/12/19 20:00 Pulse 69 01/13/19 08:00 Resp 20 01/13/19 08:00 BP 141/64 01/13/19 08:00 Pulse Ox 96 01/13/19 08:00 Intake & Output 01/12/19 01/13/19 01/13/19 18:59 06:59 18:59 Intake Total 452.57 1300 360 Output Total 400 Balance 52.57 1300 360 Weight 130.2 kg 129.9 kg Intake: IV 92.57 Intake, IV Titration 900 Amount Sodium Chloride 0.9% 1, 900 000 ml @ 75 mls/hr IV . [id number] [facility] Rx#:[id number] Oral 360 400 360 Output: Urine 400 Other: Voiding Method Bedpan Bedpan Toilet # Voids 3 - Labs CBC & Chem 7: 01/13/19 05:41 01/13/19 05:41 Labs: Abnormal Lab Results - Last 24 Hours (Table) 01/12/19 01/12/19 01/13/19 Range/Units 16:40 21:08 05:41 RBC (3.80-5.40) m/uL Hgb (11.4-16.0) gm/dL MCHC (31.0-37.0) g/dL Chloride 109 H (98-107) mmol/L BUN 36 H (7-17) mg/dL Creatinine 1.70 H (0.52-1.04) mg/dL Glucose 118 H (74-99) mg/dL POC Glucose (mg/dL) 131 H 185 H (75-99) mg/dL 01/13/19 01/13/19 01/13/19 Range/Units 05:41 06:24 11:56 RBC 3.75 L (3.80-5.40) m/uL Hgb 10.9 L (11.4-16.0) gm/dL MCHC 30.9 L (31.0-37.0) g/dL Chloride (98-107) mmol/L BUN (7-17) mg/dL Creatinine (0.52-1.04) mg/dL Glucose (74-99) mg/dL POC Glucose (mg/dL) 127 H 118 H (75-99) mg/dL Assessment and Plan Plan: Assessment: 1. Chronic kidney disease stage IV with baseline creatinine near 1.5-2 secondary to diabetic kidney disease. 2. Chest pain status post abnormal stress test. She had cardiac catheterization which revealed critical lesion of the proximal LAD, total occlusion of the nondominant circumflex and mild disease in the RCA. She had a stent placed to the proximal LAD on January 12. 3. Diabetes mellitus. 4. Metabolic alkalosis. Patient was maintained on oral sodium bicarbonate which has been discontinued. 5. Chronic kidney disease mineral bone disease maintained on PhosLo. 6. Mild acute kidney injury secondary to contrast-induced nephropathy. Creatinine peaked at 2.12 - 1.7 today. Plan: Stable to be discharged from nephrology standpoint. Repeat BMP this Saturday. Follow up outpatient in the next 1-2 weeks.
[2019-01-13 13:00] VITALS: BP 146/66; PULSE 67; TEMP 98.4
--- NOTE | 2019-01-13 14:47 | P.PN ---
Subjective Progress Note Date: 01/13/19 Principal diagnosis: CVA s/p PTCA Left-sided weakness much improved sometimes after midnight. No new neuro c/o. Objective - Vital Signs Vital signs: Vital Signs Temp 98.4 F 01/13/19 12:00 Pulse 67 01/13/19 12:00 Resp 20 01/13/19 12:00 BP 146/66 01/13/19 12:00 Pulse Ox 95 01/13/19 12:00 Intake & Output 01/12/19 01/13/19 01/13/19 18:59 06:59 18:59 Intake Total 452.57 1300 360 Output Total 400 Balance 52.57 1300 360 Weight 130.2 kg 129.9 kg Intake: IV 92.57 Intake, IV Titration 900 Amount Sodium Chloride 0.9% 1, 900 000 ml @ 75 mls/hr IV . [id number] [facility] Rx#:[id number] Oral 360 400 360 Output: Urine 400 Other: Voiding Method Bedpan Bedpan Toilet # Voids 3 - Exam Gen NAD Pleasant and cooperative MS A+Ox4 Normal speech CN II-XII grossly intact no nystagmus Motor Normal bulk/tone No drift or tremors Strength 5/5 sym throughout Sens Intact to LT x4 Coord No dysmetria on FTN bilaterally DTRs 2+/4 sym throughout Gait Deferred NIHSS 0 - Labs CBC & Chem 7: 01/13/19 05:41 01/13/19 05:41 Labs: Abnormal Lab Results - Last 24 Hours (Table) 01/12/19 01/12/19 01/13/19 Range/Units 16:40 21:08 05:41 RBC (3.80-5.40) m/uL Hgb (11.4-16.0) gm/dL MCHC (31.0-37.0) g/dL Chloride 109 H (98-107) mmol/L BUN 36 H (7-17) mg/dL Creatinine 1.70 H (0.52-1.04) mg/dL Glucose 118 H (74-99) mg/dL POC Glucose (mg/dL) 131 H 185 H (75-99) mg/dL 01/13/19 01/13/19 01/13/19 Range/Units 05:41 06:24 11:56 RBC 3.75 L (3.80-5.40) m/uL Hgb 10.9 L (11.4-16.0) gm/dL MCHC 30.9 L (31.0-37.0) g/dL Chloride (98-107) mmol/L BUN (7-17) mg/dL Creatinine (0.52-1.04) mg/dL Glucose (74-99) mg/dL POC Glucose (mg/dL) 127 H 118 H (75-99) mg/dL - Imaging and Cardiology Carotid duplex 01/13/19 Elevated velocities felt likely to be due to tortuosity. Assessment and Plan Assessment: New left lower>upper extremity weakness s/p PTCA, possibly small cardioembolic phenomenon- improved. 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 Details unknown. She cannot get CTA due to CKD or MRA due to recent PTCA. She will need to follow up with outpatient neurology for this -May treat BP to normotensive range -PT/OT/SP per protocol -DVT prophylaxis: Heparin -Stroke education given to patient -d/w patient. All questions answered. -Stable for discharge from neuro standpoint. Thank you again for this consultation. Please call with ?. Time with Patient: Less than 30 (Time spent in direct patient care, greater than 50% of which was spent in ertp-us-[id number] counseling and coordination of care: 25 minutes.)
== END 2019-01-13 14:46 | DRG 247 ==
LOC: EC 21:20 → 1SOBS 23:26 → OBSVTOIN 01-06 15:01 → 3SCARD 01-06 17:21
PROVIDERS: ADMIT Internal Medicine; ATTEND Internal Medicine
PROC: 4A023N7 Measurement of Cardiac Sampling and Pressure, Left Heart, Percutaneous Approach (ICD-10-PCS; 2019-01-07)
PROC: B2111ZZ Fluoroscopy of Multiple Coronary Arteries using Low Osmolar Contrast (ICD-10-PCS; 2019-01-07)
PROC: 027034Z Dilation of Coronary Artery, One Artery with Drug-eluting Intraluminal Device, Percutaneous Approach (ICD-10-PCS; principal; 2019-01-12 12:00)
DX: I21.4 Non-ST elevation (NSTEMI) myocardial infarction (principal); E87.3 Alkalosis; F33.9 Major depressive disorder, recurrent, unspecified; I13.0 Hypertensive heart and chronic kidney disease with heart failure and stage 1 through stage 4 chronic kidney disease, or unspecified chronic kidney disease; I50.42 Chronic combined systolic (congestive) and diastolic (congestive) heart failure; N17.9 Acute kidney failure, unspecified; N18.4 Chronic kidney disease, stage 4 (severe); Z68.42 Body mass index [BMI] 45.0-49.9, adult; E11.22 Type 2 diabetes mellitus with diabetic chronic kidney disease; E11.42 Type 2 diabetes mellitus with diabetic polyneuropathy; I44.7 Left bundle-branch block, unspecified; D50.9 Iron deficiency anemia, unspecified; D63.8 Anemia in other chronic diseases classified elsewhere; R53.1 Weakness; E78.5 Hyperlipidemia, unspecified; E89.0 Postprocedural hypothyroidism; F41.9 Anxiety disorder, unspecified; G47.33 Obstructive sleep apnea (adult) (pediatric); G89.4 Chronic pain syndrome; H54.8 Legal blindness, as defined in USA; I08.0 Rheumatic disorders of both mitral and aortic valves; I25.10 Atherosclerotic heart disease of native coronary artery without angina pectoris; I25.2 Old myocardial infarction; I44.0 Atrioventricular block, first degree; J44.9 Chronic obstructive pulmonary disease, unspecified; K21.9 Gastro-esophageal reflux disease without esophagitis; K59.00 Constipation, unspecified; M06.9 Rheumatoid arthritis, unspecified; M1A.9XX0 Chronic gout, unspecified, without tophus (tophi); E83.89 Other disorders of mineral metabolism; N14.1 Nephropathy induced by other drugs, medicaments and biological substances; T50.8X5A Adverse effect of diagnostic agents, initial encounter; E66.3 Overweight; K57.90 Diverticulosis of intestine, part unspecified, without perforation or abscess without bleeding; M19.90 Unspecified osteoarthritis, unspecified site; R32 Unspecified urinary incontinence; Z91.81 History of falling; Z86.711 Personal history of pulmonary embolism; Z85.850 Personal history of malignant neoplasm of thyroid; Z79.4 Long term (current) use of insulin; Z79.51 Long term (current) use of inhaled steroids; Z79.890 Hormone replacement therapy; Z79.899 Other long term (current) drug therapy; Z95.5 Presence of coronary angioplasty implant and graft; Z87.440 Personal history of urinary (tract) infections; Z90.49 Acquired absence of other specified parts of digestive tract; Z96.651 Presence of right artificial knee joint; Z96.611 Presence of right artificial shoulder joint; Z82.0 Family history of epilepsy and other diseases of the nervous system; Z82.5 Family history of asthma and other chronic lower respiratory diseases; Z83.3 Family history of diabetes mellitus; Z82.3 Family history of stroke
CPT/HCPCS: 36415; 70450; 71046; 78452; 80048; 80053; 80061; 83735; 84484; 85025; 85027; 85610; 85730; 93005; 93017; 93306; 93458; 93880; 94640; 94760; 96374; 99285; C1874

== ENCOUNTER 2019-11-27 22:47 | Emergency (ER) | payer MEDICARE, OTHER ==
[2019-11-27 22:55] VITALS: RESP 16; TEMP 96.7
[2019-11-27 22:58] LABS: Glucose,Whole Blood 115 mg/dL (75-99)
[2019-11-27 23:14] LABS: Glucose,Whole Blood 143 mg/dL (75-99)
[2019-11-27 23:33] LABS: Glucose,Whole Blood 125 mg/dL (75-99)
--- NOTE | 2019-11-27 23:33 | ED ---
Recheck HPI - General Chief Complaint: Recheck/Abnormal Lab/Rx Stated Complaint: Hypoglycemia Time Seen by Provider: 11/27/19 23:11 Source: patient, family, EMS Mode of arrival: EMS Limitations: no limitations - History of Present Illness Initial Comments: Yocasta is a 64yo female with a history of insulin-dependent diabetes. Patient takes fixed dose insulin. Patient has apparently not checked her glucose and over a month. Today she took her normal dose at breakfast she did not eat lunch she spent all day out in the sun working in her flower beds. She ate some [employer] for dinner and took another fixed dose of 5 units of insulin. She then went to her room to go to bed, her daughter walked in her room to ask her question of that her mom seemed to be quite altered. Her daughter is a nurse she suspected that her mom had hypoglycemia. She felt that she was not awake enough to take oral glucose. She checked her glucose with her metered found it was only 23 at which time EMS was called. EMS established IV access and gave half an amp of D50. On arrival patient awake alert oriented able to provide a history. - Related Data Home Medications Medication Instructions Recorded Confirmed Sodium Bicarbonate 325 mg PO TID@0800,1400,199908/06/16 01/04/19 Atorvastatin [Lipitor] 40 mg PO HS 11/21/17 01/04/19 Calcium Acetate [PhosLo] 667 mg PO TID@0800,1400,199911/21/17 01/04/19 DULoxetine HCL [Cymbalta] 30 mg PO BID@0800,1700 11/21/17 01/04/19 Ferrous Sulfate [Iron (65 MG 325 mg PO DAILY@169911/21/17 01/04/19 Elemental)] Fluticasone Propionate [Flovent 2 puff INHALATION RT-BID 11/21/17 01/04/19 Hfa 110 mcg] Insulin Aspart [NovoLOG Flexpen] 7 unit SQ AC-TID 11/21/17 01/04/19 Levothyroxine Sodium [Synthroid] 175 mcg PO DAILY@0600 11/21/17 01/04/19 Montelukast [Singulair] 10 mg PO HS 11/21/17 01/04/19 Polyethylene Glycol 3350 [Miralax] 17 gm PO DAILY 11/21/17 01/04/19 Acetaminophen [Tylenol] 650 mg PO Q4H PRN 08/19/18 01/04/19 Albuterol Nebulized [Ventolin 2.5 mg INHALATION RT-QID PRN 08/19/18 01/04/19 Nebulized] Bisacodyl [Dulcolax] 10 mg RECTAL DAILY PRN 08/19/18 01/04/19 Calcium Carbonate [Tums] 1,000 mg PO TID PRN 08/19/18 01/04/19 Dextran 70/Hypromellose [Genteal 1 drop BOTH EYES QID PRN 08/19/18 01/04/19 Tears 0.1%-0.3% Drop] Insulin Degludec [Tresiba] 37 units SQ HS 08/19/18 01/04/19 Mag Hydrox/Al Hydrox/Simeth 30 ml PO DAILY PRN 08/19/18 01/04/19 [Maalox] Pantoprazole Sodium [Protonix] 40 mg PO DAILY 08/19/18 01/04/19 Sennosides [Senna] 8.6 mg PO BID@0800,1700 08/19/18 01/04/19 Allopurinol [Zyloprim] 300 mg PO DAILY 01/04/19 01/04/19 Epoetin Russ [Epogen] 20,000 unit SQ WE 01/04/19 01/04/19 Furosemide [Lasix] 20 mg PO DAILY@0800 01/04/19 01/04/19 Nystatin 100,000Unit/gm Cream 1 applic TOPICAL QID 01/04/19 01/04/19 [Mycostatin Cream] Sucralfate [Carafate] 1 gm PO QID@06,11,1730,2130 01/04/19 01/04/19 Previous Rx's Medication Instructions Recorded Aspirin 81 mg PO DAILY #30 chew 01/13/19 Carvedilol [Coreg*] 12.5 mg PO BID@0800,1700 #60 tab 01/13/19 Clopidogrel [Plavix] 75 mg PO DAILY #30 tab 01/13/19 Gabapentin [Neurontin] 400 mg PO TID@0800,1400,2000 #9 cap 01/13/19 Isosorbide Mononitrate ER [Imdur] 30 mg PO DAILY #30 tab.er.24h 01/13/19 Lactulose [Cephulac] 30 gm PO DAILY ml 01/13/19 Nitroglycerin Sl Tabs [Nitrostat] 0.4 mg SUBLINGUAL Q5M PRN #25 tab 01/13/19 oxyCODONE HCL [OxyIR] 5 mg PO Q4H PRN #18 tab 01/13/19 Allergies Allergy/AdvReac Type Severity Reaction Status Date / Time No Known Allergies Allergy Verified 01/04/19 21:25 Review of Systems ROS Statement: Those systems with pertinent positive or pertinent negative responses have been documented in the HPI. ROS Other: All systems not noted in ROS Statement are negative. Past Medical History Past Medical History: Asthma, Coronary Artery Disease (CAD), Cancer, Heart Failure, COPD, Diabetes Mellitus, GI Bleed, Hyperlipidemia, Hypertension, Myocardial Infarction ([place]), Osteoarthritis (OA), Pulmonary Embolus (PE), Renal Disease, Rheumatoid Arthritis (RA), Sleep Apnea/CPAP/BIPAP, Syncope, Thyroid Disorder Additional Past Medical History / Comment(s): IDDM type II poorly controlled,uses cpap bilateral peripheral neuropathy bilateral hands/feet, CKD , UTIs, legally blind bilaterally-sees minimally, thyroid cancer with surgery, goiter, hashimotos, diverticular disease, 2013 upper and lower GI bleeds with blood loss anemia, gout, R humeral fracture with surgery, occasionally bladder incont.past falls, "lt ankle broke 3 places-SX DONE. pt stated "not walking but able to stand and pivot with med boot on," Last Myocardial Infarction Date:: 2009 History of Any Multi-Drug Resistant Organisms: None Reported Past Surgical History: Adenoidectomy, Back Surgery, Cholecystectomy, Heart Catheterization With Stent, Tonsillectomy Additional Past Surgical History / Comment(s): PCI with stent 2009, low back surgery, total R shoulder and total R knee arthroplasties, bilateral hand trigger finger surgeries, EGD, colonoscopy, L eye laser eye surgery for bleed, thyroidectomy.lt tib fib fx-plate and screws. Past Anesthesia/Blood Transfusion Reactions: No Reported Reaction Additional Past Anesthesia/Blood Transfusion Reaction / Comment(s): Pt has received blood in past without reaction. Date of Last Stent Placement:: 2009 Past Psychological History: Anxiety, Depression Smoking Status: Never smoker Past Alcohol Use History: None Reported Past Drug Use History: None Reported - Past Family History Mother Family Medical History: Asthma, CVA/TIA, Seizure Disorder Additional Family Medical History / Comment(s): epilepsy Father Family Medical History: COPD, Diabetes Mellitus Additional Family Medical History / Comment(s): many heart problems General Exam Limitations: no limitations Course Vital Signs 11/27/19 11/28/19 22:51 00:40 Temperature 96.7 F L Pulse Rate 78 68 Respiratory 16 16 Rate Blood Pressure 162/68 157/76 O2 Sat by Pulse 97 95 Oximetry Medical Decision Making - Medical Decision Making History was obtained from patient, daughter and EMS Insulin-dependent diabetic females not been checking her glucose but taking insulin had an episode of hypoglycemia which resolved after IV dextrose Patient awake alert oriented eating chandni crackers and peanut butter drinking juice Patient was observed for 90 minutes glucose continued to increase she had by mouth intake at this time daughter's comfortable with the plan for discharge home, daughter who is an RN and who the patient lives with insists that she will be more closely monitored. All questions pertaining care were answered return parameters discussed patient discharged home in stable condition. - Lab Data Lab Results 11/27/19 11/27/19 11/27/19 Range/Units 22:49 23:11 23:30 POC Glucose (mg/dL) 115 H 143 H 125 H (75-99) mg/dL POC Glu Bottle Assembler ID Charlotte Chavira Dakota Fetterly, Samantha 11/27/19 Range/Units 23:45 POC Glucose (mg/dL) 138 H (75-99) mg/dL POC Glu Bottle Assembler ID Garett Stokes Disposition Clinical Impression: Hypoglycemia due to insulin Disposition: HOME SELF-CARE Condition: Stable Instructions (If sedation given, give patient instructions): Hypoglycemia in a Person with Diabetes (ED) Is patient prescribed a controlled substance at d/c from ED?: No Referrals: Jhonathan Baca MD [Primary Care Provider] - 1-2 days
[2019-11-27 23:46] LABS: Glucose,Whole Blood 138 mg/dL (75-99)
[2019-11-28 00:51] VITALS: BP 157/76; PULSE 68
== END 2019-11-28 00:42 | disposition home or self-care (01) ==
LOC: EC 22:47
DX: E11.649 Type 2 diabetes mellitus with hypoglycemia without coma (principal); I25.10 Atherosclerotic heart disease of native coronary artery without angina pectoris; J44.9 Chronic obstructive pulmonary disease, unspecified; N18.9 Chronic kidney disease, unspecified; E11.22 Type 2 diabetes mellitus with diabetic chronic kidney disease; E78.5 Hyperlipidemia, unspecified; I25.2 Old myocardial infarction; M19.90 Unspecified osteoarthritis, unspecified site; G47.30 Sleep apnea, unspecified; M10.9 Gout, unspecified; F32.9 Major depressive disorder, single episode, unspecified; F41.9 Anxiety disorder, unspecified; I13.0 Hypertensive heart and chronic kidney disease with heart failure and stage 1 through stage 4 chronic kidney disease, or unspecified chronic kidney disease; I50.9 Heart failure, unspecified; E11.42 Type 2 diabetes mellitus with diabetic polyneuropathy; Z79.4 Long term (current) use of insulin; Z79.899 Other long term (current) drug therapy; Z79.51 Long term (current) use of inhaled steroids; Z79.890 Hormone replacement therapy; Z85.850 Personal history of malignant neoplasm of thyroid; Z86.711 Personal history of pulmonary embolism; Z90.89 Acquired absence of other organs; Z90.49 Acquired absence of other specified parts of digestive tract; Z95.5 Presence of coronary angioplasty implant and graft; Z96.611 Presence of right artificial shoulder joint; Z96.651 Presence of right artificial knee joint; Z99.89 Dependence on other enabling machines and devices
CPT/HCPCS: 36415; 99284

== ENCOUNTER 2020-09-07 19:10 | Inpatient (IN) | payer MEDICARE, OTHER ==
--- NOTE | 2020-09-07 19:46 | ED ---
General Adult HPI - General Chief complaint: Syncope Stated complaint: Syncope Source: patient, EMS Mode of arrival: EMS Limitations: no limitations - History of Present Illness Initial comments: Patient is a 65-year-old female with multiple medical conditions who presents emergency room and after she had a syncopal episode. It episode was witnessed by her 15-year-old niece. She reports that she was making dinner in the kitchen when she felt lightheaded. Patient ended up passing out. Fell onto her knee and then on to her left shoulder. Patient was out for approximately 3 minutes before becoming arousable. EMS was called. Upon transport to the hospital the patient is alert and oriented 3. She did not bite her tongue. There is no bowel or bladder incontinence. No seizure-like activity. It was reported the patient did not hit her head. She is denying any neck pain. Does admit to left shoulder pain. No numbness, tingling or weakness. No elbow or wrist pain. She admits to feeling well earlier in the day today. No recent fevers, chills or illness. Denies any nausea or vomiting. No black, tarry or sticky stools. She does have a history of anemia. States it's been sometime since her labs were checked. No other alleviating, precipitating or modifying factors - Related Data Home Medications Medication Instructions Recorded Confirmed Calcium Acetate [PhosLo] 667 mg PO TID@0800,1400,2000 11/21/17 09/08/20 Ferrous Sulfate [Iron (65 MG 325 mg PO DAILY@1700 11/21/17 09/08/20 Elemental)] Fluticasone Propionate [Flovent 2 puff INHALATION RT-BID 11/21/17 09/08/20 Hfa 110 mcg] Insulin Aspart [NovoLOG Flexpen] 5 unit SQ AC-BID 11/21/17 09/08/20 Levothyroxine Sodium [Synthroid] 175 mcg PO DAILY@0600 11/21/17 09/08/20 Montelukast [Singulair] 10 mg PO HS 11/21/17 09/08/20 polyethylene glycoL 3350 [Miralax] 17 gm PO DAILY 11/21/17 09/08/20 Insulin Degludec [Tresiba] 40 units SQ HS 08/19/18 09/08/20 Pantoprazole Sodium [Protonix] 40 mg PO DAILY 08/19/18 09/08/20 Furosemide [Lasix] 20 mg PO DAILY@0800 01/04/19 09/08/20 Nystatin 100,000Unit/gm Cream 1 applic TOPICAL BID 01/04/19 09/08/20 [Mycostatin Cream] Sucralfate [Carafate] 1 gm PO TID 01/04/19 09/08/20 allopurinoL [Zyloprim] 300 mg PO DAILY 01/04/19 09/08/20 Atorvastatin [Lipitor] 40 mg PO HS 09/08/20 09/08/20 DULoxetine HCL [Cymbalta] 60 mg PO BID 09/08/20 09/08/20 Insulin Aspart [NovoLOG Flexpen] 6 units SQ AC-LUNCH 09/08/20 09/08/20 calcitrioL [Calcitriol] 0.25 mcg PO WEEKLY 09/08/20 09/08/20 Previous Rx's Medication Instructions Recorded Aspirin 81 mg PO DAILY #30 chew 01/13/19 Clopidogrel [Plavix] 75 mg PO DAILY #30 tab 01/13/19 Gabapentin [Neurontin] 400 mg PO TID@0800,1400,1999 #9 cap 01/13/19 Isosorbide Mononitrate ER [Imdur] 30 mg PO DAILY #30 tab.er.24h 01/13/19 Nitroglycerin Sl Tabs [Nitrostat] 0.4 mg SUBLINGUAL Q5M PRN #25 tab 01/13/19 Cephalexin [Keflex] 500 mg PO Q8HR 1 Days #20 cap 09/11/20 Sennosides [Senokot] 8.6 mg PO BID@0800,1700 #60 tab 09/11/20 Sodium Bicarbonate Tab 325 mg PO TID@0800,1400,1999 #90 09/11/20 tab amLODIPine [Norvasc] 5 mg PO DAILY #30 tab 09/11/20 carvediloL [Coreg*] 12.5 mg PO BID@0800,1700 #60 tab 09/11/20 Allergies Allergy/AdvReac Type Severity Reaction Status Date / Time No Known Allergies Allergy Verified 09/08/20 09:20 Review of Systems ROS Statement: Those systems with pertinent positive or pertinent negative responses have been documented in the HPI. ROS Other: All systems not noted in ROS Statement are negative. Past Medical History Past Medical History: Asthma, Coronary Artery Disease (CAD), Cancer, Heart Failure, COPD, Diabetes Mellitus, GI Bleed, Hyperlipidemia, Hypertension, Myocardial Infarction (MT), Osteoarthritis (OA), Pulmonary Embolus (PE), Renal Disease, Rheumatoid Arthritis (RA), Sleep Apnea/CPAP/BIPAP, Syncope, Thyroid Disorder Additional Past Medical History / Comment(s): IDDM type II poorly controlled,uses cpap bilateral peripheral neuropathy bilateral hands/feet, CKD , UTIs, legally blind bilaterally-sees minimally, thyroid cancer with surgery, goiter, hashimotos, diverticular disease, 2013 upper and lower GI bleeds with blood loss anemia, gout, R humeral fracture with surgery, occasionally bladder incont.past falls, "lt ankle broke 3 places-SX DONE. pt stated "not walking but able to stand and pivot with med boot on," Last Myocardial Infarction Date:: 2009 History of Any Multi-Drug Resistant Organisms: None Reported Past Surgical History: Adenoidectomy, Back Surgery, Cholecystectomy, Heart Catheterization With Stent, Tonsillectomy Additional Past Surgical History / Comment(s): PCI with stent 2009, low back surgery, total R shoulder and total R knee arthroplasties, bilateral hand trigger finger surgeries, EGD, colonoscopy, L eye laser eye surgery for bleed, thyroidectomy.lt tib fib fx-plate and screws. Past Anesthesia/Blood Transfusion Reactions: No Reported Reaction Additional Past Anesthesia/Blood Transfusion Reaction / Comment(s): Pt has received blood in past without reaction. Date of Last Stent Placement:: 2009 Past Psychological History: Anxiety, Depression Smoking Status: Never smoker Past Alcohol Use History: None Reported Past Drug Use History: None Reported - Past Family History Mother Family Medical History: Asthma, CVA/TIA, Seizure Disorder Additional Family Medical History / Comment(s): epilepsy Father Family Medical History: COPD, Diabetes Mellitus Additional Family Medical History / Comment(s): many heart problems General Exam Limitations: no limitations General appearance: alert, in no apparent distress Head exam: Present: atraumatic, normocephalic, normal inspection Eye exam: Present: normal appearance, PERRL, EOMI. Absent: scleral icterus, conjunctival injection, periorbital swelling ENT exam: Present: normal exam, mucous membranes moist Neck exam: Present: normal inspection. Absent: tenderness, meningismus, lymphadenopathy Respiratory exam: Present: normal lung sounds bilaterally. Absent: respiratory distress, wheezes, rales, rhonchi, stridor Cardiovascular Exam: Present: regular rate, normal rhythm, normal heart sounds. Absent: systolic murmur, diastolic murmur, rubs, gallop, clicks GI/Abdominal exam: Present: soft, normal bowel sounds. Absent: distended, tenderness, guarding, rebound, rigid Extremities exam: Present: normal inspection, full ROM, normal capillary refill. Absent: tenderness, pedal edema, joint swelling, calf tenderness Back exam: Present: normal inspection Neurological exam: Present: alert, oriented X3, CN II-XII intact Psychiatric exam: Present: normal affect, normal mood Skin exam: Present: warm, dry, intact, normal color. Absent: rash Course Vital Signs 09/07/20 09/07/20 09/07/20 19:30 22:35 23:43 Temperature 98 F 97.4 F L Pulse Rate 60 58 L 54 L Pulse Rate [ Pulse Oximetery ] Respiratory 18 18 18 Rate Blood Pressure 111/56 141/65 149/51 Blood Pressure [Right Arm] O2 Sat by Pulse 94 L 96 97 Oximetry 09/08/20 09/08/20 09/08/20 03:49 05:51 08:08 Temperature 98 F 97.7 F Pulse Rate 54 L 55 L 54 L Pulse Rate [ Pulse Oximetery ] Respiratory 18 18 16 Rate Blood Pressure 128/64 120/69 157/61 Blood Pressure [Right Arm] O2 Sat by Pulse 95 96 98 Oximetry 09/08/20 09/08/20 09/08/20 14:31 15:00 20:00 Temperature 97.6 F 98.2 F 97.7 F Pulse Rate 55 L Pulse Rate [ 56 L 56 L Pulse Oximetery ] Respiratory 16 14 18 Rate Blood Pressure 135/71 Blood Pressure 132/62 121/57 [Right Arm] O2 Sat by Pulse 98 99 96 Oximetry 09/09/20 09/09/20 02:00 06:53 Temperature 98 F Pulse Rate Pulse Rate [ 54 L 86 Pulse Oximetery ] Respiratory 18 16 Rate Blood Pressure Blood Pressure 130/64 147/86 [Right Arm] O2 Sat by Pulse 95 Oximetry EKG Findings - EKG Comments: EKG Findings:: EKG demonstrates sinus bradycardia with the first degree AV block. Rate of 58. [place] interval 234. QRS 114. QTC of 465. No acute ST segment elevations or depressions and inverted T waves in 1 and aVL Medical Decision Making - Medical Decision Making Upon arrival patient was placed into room 28. A thorough history and physical exam is performed. IV is established. Laboratory studies were conducted. Chest x-rays performed as well as an x-ray of the patient's left shoulder. Labs are reviewed. Creatinine is 2.1 which is around the patient's baseline. Glucose of 305. Troponin negative. Chest x-ray demonstrates primarily with no active cardiomegaly disease. Shoulder x-ray demonstrates no acute fracture. Patient given Tylenol for pain control. I did recommend admission. I did speak with Dr. Baca who agreed to admit the patient. Patient is awaiting a bed on the floor - Lab Data Result diagrams: 09/10/20 07:33 09/11/20 07:09 Lab Results 09/07/20 09/07/20 09/07/20 Range/Units 20:07 20:07 20:07 WBC 8.4 (3.8-10.6) k/uL RBC 3.61 L (3.80-5.40) m/uL Hgb 11.2 L (11.4-16.0) gm/dL Hct 34.2 (34.0-46.0) % MCV 94.9 (80.0-100.0) fL MCH 31.1 (25.0-35.0) pg MCHC 32.8 (31.0-37.0) g/dL RDW 13.9 (11.5-15.5) % Plt Count 132 L (150-450) k/uL MPV 8.7 Neutrophils % 75 % Lymphocytes % 17 % Monocytes % 4 % Eosinophils % 3 % Basophils % 0 % Neutrophils # 6.3 (1.3-7.7) k/uL Lymphocytes # 1.4 (1.0-4.8) k/uL Monocytes # 0.3 (0-1.0) k/uL Eosinophils # 0.3 (0-0.7) k/uL Basophils # 0.0 (0-0.2) k/uL PT 10.0 (9.0-12.0) sec INR 0.9 (<1.2) APTT 22.1 (22.0-30.0) sec Sodium (137-145) mmol/L Potassium (3.5-5.1) mmol/L Chloride (98-107) mmol/L Carbon Dioxide (22-30) mmol/L Anion Gap mmol/L BUN (7-17) mg/dL Creatinine (0.52-1.04) mg/dL Est GFR (CKD-EPI)AfAm (>60 ml/min/1.73 sqM) Est GFR (CKD-EPI)NonAf (>60 ml/min/1.73 sqM) Glucose (74-99) mg/dL POC Glucose (mg/dL) (75-99) mg/dL POC Glu [employer] Tender ID Lactic Ac Sepsis Rflx Plasma Lactic Acid Kamron (0.7-2.0) mmol/L Calcium (8.4-10.2) mg/dL Total Bilirubin (0.2-1.3) mg/dL AST (14-36) U/L ALT (4-34) U/L Alkaline Phosphatase (38-126) U/L Troponin I (0.000-0.034) ng/mL Total Protein (6.3-8.2) g/dL Albumin (3.5-5.0) g/dL Urine Color Yellow Urine Appearance Turbid H (Clear) Urine pH 5.5 (5.0-8.0) Ur Specific [place] 1.013 (1.001-1.035) Urine Protein 2+ H (Negative) Urine Glucose (UA) Negative (Negative) Urine Ketones Negative (Negative) Urine Blood Small H (Negative) Urine Nitrite Negative (Negative) Urine Bilirubin Negative (Negative) Urine Urobilinogen <2.0 (<2.0) mg/dL Ur Leukocyte Esterase Large H (Negative) Urine RBC 8 H (0-5) /hpf Urine WBC >182 H (0-5) /hpf Urine WBC Clumps Many H (None) /hpf Ur Squamous Epith Cells 25 H (0-4) /hpf Urine Bacteria Many H (None) /hpf Urine Mucus Rare H (None) /hpf Coronavirus (PCR) (Not Detectd) 09/07/20 09/07/20 09/07/20 Range/Units 20:07 20:07 20:07 WBC (3.8-10.6) k/uL RBC (3.80-5.40) m/uL Hgb (11.4-16.0) gm/dL Hct (34.0-46.0) % MCV (80.0-100.0) fL MCH (25.0-35.0) pg MCHC (31.0-37.0) g/dL RDW (11.5-15.5) % Plt Count (150-450) k/uL MPV Neutrophils % % Lymphocytes % % Monocytes % % Eosinophils % % Basophils % % Neutrophils # (1.3-7.7) k/uL Lymphocytes # (1.0-4.8) k/uL Monocytes # (0-1.0) k/uL Eosinophils # (0-0.7) k/uL Basophils # (0-0.2) k/uL PT (9.0-12.0) sec INR (<1.2) APTT (22.0-30.0) sec Sodium 135 L (137-145) mmol/L Potassium 4.7 (3.5-5.1) mmol/L Chloride 101 (98-107) mmol/L Carbon Dioxide 29 (22-30) mmol/L Anion Gap 5 mmol/L BUN 36 H (7-17) mg/dL Creatinine 2.12 H (0.52-1.04) mg/dL Est GFR (CKD-EPI)AfAm 28 (>60 ml/min/1.73 sqM) Est GFR (CKD-EPI)NonAf 24 (>60 ml/min/1.73 sqM) Glucose 305 H (74-99) mg/dL POC Glucose (mg/dL) (75-99) mg/dL POC Glu [employer]oe [employer] Tender ID Lactic Ac Sepsis Rflx Plasma Lactic Acid Kamron 2.1 H* (0.7-2.0) mmol/L Calcium 9.1 (8.4-10.2) mg/dL Total Bilirubin 0.4 (0.2-1.3) mg/dL AST 22 (14-36) U/L ALT 9 (4-34) U/L Alkaline Phosphatase 83 (38-126) U/L Troponin I <0.012 (0.000-0.034) ng/mL Total Protein 5.9 L (6.3-8.2) g/dL Albumin 2.9 L (3.5-5.0) g/dL Urine Color Urine Appearance (Clear) Urine pH (5.0-8.0) Ur Specific [place] (1.001-1.035) Urine Protein (Negative) Urine Glucose (UA) (Negative) Urine Ketones (Negative) Urine Blood (Negative) Urine Nitrite (Negative) Urine Bilirubin (Negative) Urine Urobilinogen (<2.0) mg/dL Ur Leukocyte Esterase (Negative) Urine RBC (0-5) /hpf Urine WBC (0-5) /hpf Urine WBC Clumps (None) /hpf Ur Squamous Epith Cells (0-4) /hpf Urine Bacteria (None) /hpf Urine Mucus (None) /hpf Coronavirus (PCR) (Not Detectd) 09/07/20 09/07/20 09/07/20 Range/Units 20:40 22:40 23:26 WBC (3.8-10.6) k/uL RBC (3.80-5.40) m/uL Hgb (11.4-16.0) gm/dL Hct (34.0-46.0) % MCV (80.0-100.0) fL MCH (25.0-35.0) pg MCHC (31.0-37.0) g/dL RDW (11.5-15.5) % Plt Count (150-450) k/uL MPV Neutrophils % % Lymphocytes % % Monocytes % % Eosinophils % % Basophils % % Neutrophils # (1.3-7.7) k/uL Lymphocytes # (1.0-4.8) k/uL Monocytes # (0-1.0) k/uL Eosinophils # (0-0.7) k/uL Basophils # (0-0.2) k/uL PT (9.0-12.0) sec INR (<1.2) APTT (22.0-30.0) sec Sodium (137-145) mmol/L Potassium (3.5-5.1) mmol/L Chloride (98-107) mmol/L Carbon Dioxide (22-30) mmol/L Anion Gap mmol/L BUN (7-17) mg/dL Creatinine (0.52-1.04) mg/dL Est GFR (CKD-EPI)AfAm (>60 ml/min/1.73 sqM) Est GFR (CKD-EPI)NonAf (>60 ml/min/1.73 sqM) Glucose (74-99) mg/dL POC Glucose (mg/dL) (75-99) mg/dL POC Glu [employer] Tender ID Lactic Ac Sepsis Rflx Y Plasma Lactic Acid Kamron 1.4 (0.7-2.0) mmol/L Calcium (8.4-10.2) mg/dL Total Bilirubin (0.2-1.3) mg/dL AST (14-36) U/L ALT (4-34) U/L Alkaline Phosphatase (38-126) U/L Troponin I (0.000-0.034) ng/mL Total Protein (6.3-8.2) g/dL Albumin (3.5-5.0) g/dL Urine Color Urine Appearance (Clear) Urine pH (5.0-8.0) Ur Specific [place] (1.001-1.035) Urine Protein (Negative) Urine Glucose (UA) (Negative) Urine Ketones (Negative) Urine Blood (Negative) Urine Nitrite (Negative) Urine Bilirubin (Negative) Urine Urobilinogen (<2.0) mg/dL Ur Leukocyte Esterase (Negative) Urine RBC (0-5) /hpf Urine WBC (0-5) /hpf Urine WBC Clumps (None) /hpf Ur Squamous Epith Cells (0-4) /hpf Urine Bacteria (None) /hpf Urine Mucus (None) /hpf Coronavirus (PCR) Not Detected (Not Detectd) 09/07/20 09/08/20 09/08/20 Range/Units 23:33 05:39 05:39 WBC 6.8 (3.8-10.6) k/uL RBC 3.64 L (3.80-5.40) m/uL Hgb 11.5 (11.4-16.0) gm/dL Hct 34.7 (34.0-46.0) % MCV 95.4 (80.0-100.0) fL MCH 31.6 (25.0-35.0) pg MCHC 33.1 (31.0-37.0) g/dL RDW 13.9 (11.5-15.5) % Plt Count 120 L (150-450) k/uL MPV 8.4 Neutrophils % 54 % Lymphocytes % 35 % Monocytes % 5 % Eosinophils % 4 % Basophils % 0 % Neutrophils # 3.7 (1.3-7.7) k/uL Lymphocytes # 2.4 (1.0-4.8) k/uL Monocytes # 0.4 (0-1.0) k/uL Eosinophils # 0.3 (0-0.7) k/uL Basophils # 0.0 (0-0.2) k/uL PT (9.0-12.0) sec INR (<1.2) APTT (22.0-30.0) sec Sodium 137 (137-145) mmol/L Potassium 4.8 (3.5-5.1) mmol/L Chloride 101 (98-107) mmol/L Carbon Dioxide 32 H (22-30) mmol/L Anion Gap 4 mmol/L BUN 40 H (7-17) mg/dL Creatinine 2.40 H (0.52-1.04) mg/dL Est GFR (CKD-EPI)AfAm 24 (>60 ml/min/1.73 sqM) Est GFR (CKD-EPI)NonAf 21 (>60 ml/min/1.73 sqM) Glucose 129 H (74-99) mg/dL POC Glucose (mg/dL) 259 H (75-99) mg/dL POC Glu [employer]oe [employer]ing [employer] Operator And Tender ID Tamia Luque Lactic Ac Sepsis Rflx Plasma Lactic Acid Kamron (0.7-2.0) mmol/L Calcium 9.2 (8.4-10.2) mg/dL Total Bilirubin (0.2-1.3) mg/dL AST (14-36) U/L ALT (4-34) U/L Alkaline Phosphatase (38-126) U/L Troponin I (0.000-0.034) ng/mL Total Protein (6.3-8.2) g/dL Albumin (3.5-5.0) g/dL Urine Color Urine Appearance (Clear) Urine pH (5.0-8.0) Ur Specific [place] (1.001-1.035) Urine Protein (Negative) Urine Glucose (UA) (Negative) Urine Ketones (Negative) Urine Blood (Negative) Urine Nitrite (Negative) Urine Bilirubin (Negative) Urine Urobilinogen (<2.0) mg/dL Ur Leukocyte Esterase (Negative) Urine RBC (0-5) /hpf Urine WBC (0-5) /hpf Urine WBC Clumps (None) /hpf Ur Squamous Epith Cells (0-4) /hpf Urine Bacteria (None) /hpf Urine Mucus (None) /hpf Coronavirus (PCR) (Not Detectd) 09/08/20 09/08/20 09/08/20 Range/Units 05:39 08:01 12:03 WBC (3.8-10.6) k/uL RBC (3.80-5.40) m/uL Hgb (11.4-16.0) gm/dL Hct (34.0-46.0) % MCV (80.0-100.0) fL MCH (25.0-35.0) pg MCHC (31.0-37.0) g/dL RDW (11.5-15.5) % Plt Count (150-450) k/uL MPV Neutrophils % % Lymphocytes % % Monocytes % % Eosinophils % % Basophils % % Neutrophils # (1.3-7.7) k/uL Lymphocytes # (1.0-4.8) k/uL Monocytes # (0-1.0) k/uL Eosinophils # (0-0.7) k/uL Basophils # (0-0.2) k/uL PT (9.0-12.0) sec INR (<1.2) APTT (22.0-30.0) sec Sodium (137-145) mmol/L Potassium (3.5-5.1) mmol/L Chloride (98-107) mmol/L Carbon Dioxide (22-30) mmol/L Anion Gap mmol/L BUN (7-17) mg/dL Creatinine (0.52-1.04) mg/dL Est GFR (CKD-EPI)AfAm (>60 ml/min/1.73 sqM) Est GFR (CKD-EPI)NonAf (>60 ml/min/1.73 sqM) Glucose (74-99) mg/dL POC Glucose (mg/dL) 131 H 177 H (75-99) mg/dL POC Glu [employer]ing [employer] Operator And Tender ID Anjali Harris Rachel Lactic Ac Sepsis Rflx Plasma Lactic Acid Kamron (0.7-2.0) mmol/L Calcium (8.4-10.2) mg/dL Total Bilirubin (0.2-1.3) mg/dL AST (14-36) U/L ALT (4-34) U/L Alkaline Phosphatase (38-126) U/L Troponin I <0.012 (0.000-0.034) ng/mL Total Protein (6.3-8.2) g/dL Albumin (3.5-5.0) g/dL Urine Color Urine Appearance (Clear) Urine pH (5.0-8.0) Ur Specific [place] (1.001-1.035) Urine Protein (Negative) Urine Glucose (UA) (Negative) Urine Ketones (Negative) Urine Blood (Negative) Urine Nitrite (Negative) Urine Bilirubin (Negative) Urine Urobilinogen (<2.0) mg/dL Ur Leukocyte Esterase (Negative) Urine RBC (0-5) /hpf Urine WBC (0-5) /hpf Urine WBC Clumps (None) /hpf Ur Squamous Epith Cells (0-4) /hpf Urine Bacteria (None) /hpf Urine Mucus (None) /hpf Coronavirus (PCR) (Not Detectd) 09/08/20 Range/Units 17:01 WBC (3.8-10.6) k/uL RBC (3.80-5.40) m/uL Hgb (11.4-16.0) gm/dL Hct (34.0-46.0) % MCV (80.0-100.0) fL MCH (25.0-35.0) pg MCHC (31.0-37.0) g/dL RDW (11.5-15.5) % Plt Count (150-450) k/uL MPV Neutrophils % % Lymphocytes % % Monocytes % % Eosinophils % % Basophils % % Neutrophils # (1.3-7.7) k/uL Lymphocytes # (1.0-4.8) k/uL Monocytes # (0-1.0) k/uL Eosinophils # (0-0.7) k/uL Basophils # (0-0.2) k/uL PT (9.0-12.0) sec INR (<1.2) APTT (22.0-30.0) sec Sodium (137-145) mmol/L Potassium (3.5-5.1) mmol/L Chloride (98-107) mmol/L Carbon Dioxide (22-30) mmol/L Anion Gap mmol/L BUN (7-17) mg/dL Creatinine (0.52-1.04) mg/dL Est GFR (CKD-EPI)AfAm (>60 ml/min/1.73 sqM) Est GFR (CKD-EPI)NonAf (>60 ml/min/1.73 sqM) Glucose (74-99) mg/dL POC Glucose (mg/dL) 200 H (75-99) mg/dL POC Glu Shoe [employer]ing [employer] Operator And Tender ID Kameron Olson Lactic Ac Sepsis Rflx Plasma Lactic Acid Kamron (0.7-2.0) mmol/L Calcium (8.4-10.2) mg/dL Total Bilirubin (0.2-1.3) mg/dL AST (14-36) U/L ALT (4-34) U/L Alkaline Phosphatase (38-126) U/L Troponin I (0.000-0.034) ng/mL Total Protein (6.3-8.2) g/dL Albumin (3.5-5.0) g/dL Urine Color Urine Appearance (Clear) Urine pH (5.0-8.0) Ur Specific [place] (1.001-1.035) Urine Protein (Negative) Urine Glucose (UA) (Negative) Urine Ketones (Negative) Urine Blood (Negative) Urine Nitrite (Negative) Urine Bilirubin (Negative) Urine Urobilinogen (<2.0) mg/dL Ur Leukocyte Esterase (Negative) Urine RBC (0-5) /hpf Urine WBC (0-5) /hpf Urine WBC Clumps (None) /hpf Ur Squamous Epith Cells (0-4) /hpf Urine Bacteria (None) /hpf Urine Mucus (None) /hpf Coronavirus (PCR) (Not Detectd) Disposition Clinical Impression: Syncope Disposition: ADMITTED IP TO THIS [facility] Condition: Stable Is patient prescribed a controlled substance at d/c from ED?: No Decision to Admit Reason: Admit from EC Decision Date: 09/07/20 Decision Time: 20:54
[2020-09-07 20:27] LABS: Basophils % (A) 0 %; Eosinophils # (A) 0.3 k/uL (0-0.7); Eosinophils % (A) 3 %; HCT 34.2 % (34.0-46.0); HGB 11.2 gm/dL (11.4-16.0); Lymphocytes # (A) 1.4 k/uL (1.0-4.8); Lymphocytes % (A) 17 %; MCH 31.1 pg (25.0-35.0); MCHC 32.8 g/dL (31.0-37.0); MCV 94.9 fL (80.0-100.0); Mean Platelet Volume 8.7; Monocytes # (A) 0.3 k/uL (0-1.0); Monocytes % (A) 4 %; Neutrophils # (A) 6.3 k/uL (1.3-7.7); Neutrophils % (A) 75 %; Platelet Count 132 k/uL (150-450); RBC 3.61 m/uL (3.80-5.40); RDW 13.9 % (11.5-15.5); WBC 8.4 k/uL (3.8-10.6)
--- NOTE | 2020-09-07 20:34 | XR ---
EXAMINATION TYPE: XR chest 2V DATE OF EXAM: 09/07/2020 COMPARISON: 01/04/2019 HISTORY: Syncope TECHNIQUE: 2 views FINDINGS: Heart is enlarged. There is no heart failure. There is right shoulder prosthesis. Costophre almita angles are clear. The bony thorax is intact. IMPRESSION: Cardiomegaly. No active cardiopulmonary disease. No change.
--- NOTE | 2020-09-07 20:35 | XR ---
EXAMINATION TYPE: XR shoulder complete LT DATE OF EXAM: 09/07/2020 COMPARISON: NONE HISTORY: Left shoulder pain. Fall. TECHNIQUE: 3 views FINDINGS: I see no fracture nor dislocation. Joint spaces are normal. There is some spurring at the A C joint. IMPRESSION: No acute abnormality of the left shoulder.
[2020-09-07 20:37] LABS: Albumin 2.9 g/dL (3.5-5.0); Calcium 9.1 mg/dL (8.4-10.2); Potassium 4.7 mmol/L (3.5-5.1); Total Bilirubin 0.4 mg/dL (0.2-1.3); Total Protein 5.9 g/dL (6.3-8.2)
[2020-09-07 20:39] LABS: INR 0.9 (<1.2); Partial Thromboplastin Time 22.1 sec (22.0-30.0)
[2020-09-07] MEDS ORDERED: ACETAMINOPHEN TAB 500 MG TAB PO STA (20:42)
[2020-09-07] MEDS ORDERED: NALOXONE 0.4 MG/ML 1 ML VIAL IV PRN (20:55)
[2020-09-07] MEDS ORDERED: SODIUM CHLORIDE 0.9% 1,000 ML IV SCH (21:00)
[2020-09-07 21:23] LABS: Appearance,Urine Turbid (Clear); Bacteria,Urine Many /hpf; Bilirubin,Urine Negative (Negative); Blood,Urine Small (Negative); Color,Urine Yellow; Glucose,Urine (UA) Negative (Negative); Ketones,Urine Negative (Negative); Leukocyte Esterase,Urine Large (Negative); Mucus,Urine Rare /hpf; Nitrite,Urine Negative (Negative); PH, Urine 5.5 (5.0-8.0); Protein,Urine 2+ (Negative); RBC,Urine 8 /hpf (0-5); Specific Gravity,Urine 1.013 (1.001-1.035); Squamous Epithelial Cell,Urine 25 /hpf (0-4); Urobilinogen,Urine <2.0 mg/dL (<2.0); WBC,Urine >182 /hpf (0-5)
[2020-09-07] MEDS ORDERED: cefTRIAXone IN SWFI 1,000 MG/10 ML SYRINGE IVP STA (21:36)
--- NOTE | 2020-09-07 22:38 | US ---
EXAMINATION TYPE: US carotid duplex BILAT DATE OF EXAM: 09/07/2020 COMPARISON: US CLINICAL HISTORY: syncope. Syncope. Hx stroke, 3 heart attacks. EXAM MEASUREMENTS: RIGHT: Peak Systolic Velocity (PSV) cm/sec ----- Right CCA: 63.3 ----- Right ICA: 149.1 ----- Right ECA: 123.2 ICA/CCA ratio: 2.4 RIGHT: End Diastole cm/sec ----- Right CCA: 11.0 ----- Right ICA: 47.3 ----- Right ECA: 0.0 LEFT: Peak Systolic Velocity (PSV) cm/sec ----- Left CCA: 69.2 ----- Left ICA: 194.5 ----- Left ECA: 107.6 ICA/CCA ratio: 2.8 LEFT: End Diastole cm/sec ----- Left CCA: 14.2 ----- Left ICA: 58.4 ----- Left ECA: 0.0 VERTEBRALS (direction of flow): Right Vertebral: Antegrade Left Vertebral: Antegrade Rhythm: Arrhythmia ICA appears tortuous bilaterally. Elevated velocities within bilateral ICAs. Plaque seen within bila teral bifurcations. ICA/CCA ratio on right: 2.4 and on left 2.8. IMPRESSION: There is antegrade flow in the vertebral arteries. The images do not show evidence of any stenosis mo re than 50%. I do not think that there is any stenosis more than 20%. There is elevated velocities me asured in the internal carotid arteries probably due to Doppler angle of the lumen.. Criteria for Assigning % of Stenosis / Diameter reduction (Estimation based on the indirect measurements of the internal carotid artery velocities (ICA PSV). 1. Normal (no stenosis)=ICA PSV < 125 cm/s: ratio < 2.0: ICA EDV<40 cm/s. 2. Less than 50% stenosis=ICA PSV < 125 cm/s: ratio < 2.0: ICA EDV<40 cm/s. 3. 50 to 69% stenosis=ICA PSV of 125 to 230 cm/s: ration 2.0 ? 4.0: ICA EDV 40-100 cm/s. 4. Greater than 70% stenosis to near occlusion= ICA PSV > 230 cm/s: ratio > 4.0: ICA EDV > 100 cm/s. 5. Near occlusion= ICA PSV velocities may be low or undetectable: variable ratio and ICA EDV. 6. Total occlusion=unable to detect flow.
[2020-09-07] MEDS ORDERED: MONTELUKAST 10 MG TAB PO STA (23:21)
[2020-09-07] MEDS ORDERED: GABAPENTIN 400 MG CAP PO STA (23:21)
[2020-09-07 23:35] LABS: Glucose,Whole Blood 259 mg/dL (75-99)
[2020-09-07] MEDS: INSULIN ASPART (NovoLOG) 100 UNIT/ML VIAL SQ SCH (23:46)
[2020-09-08] MEDS: traMADol 50 MG TAB PO PRN ×2 (04:28→10:35)
[2020-09-08 06:13] LABS: Basophils % (A) 0 %; Eosinophils # (A) 0.3 k/uL (0-0.7); Eosinophils % (A) 4 %; HCT 34.7 % (34.0-46.0); HGB 11.5 gm/dL (11.4-16.0); Lymphocytes # (A) 2.4 k/uL (1.0-4.8); Lymphocytes % (A) 35 %; MCH 31.6 pg (25.0-35.0); MCHC 33.1 g/dL (31.0-37.0); MCV 95.4 fL (80.0-100.0); Mean Platelet Volume 8.4; Monocytes # (A) 0.4 k/uL (0-1.0); Monocytes % (A) 5 %; Neutrophils # (A) 3.7 k/uL (1.3-7.7); Neutrophils % (A) 54 %; Platelet Count 120 k/uL (150-450); RBC 3.64 m/uL (3.80-5.40); RDW 13.9 % (11.5-15.5); WBC 6.8 k/uL (3.8-10.6)
[2020-09-08 06:34] LABS: Calcium 9.2 mg/dL (8.4-10.2); Potassium 4.8 mmol/L (3.5-5.1)
[2020-09-08 08:05] LABS: Glucose,Whole Blood 131 mg/dL (75-99)
[2020-09-08] MEDS: INSULIN ASPART (NovoLOG) 100 UNIT/ML VIAL SQ SCH ×6 (08:06→20:48)
[2020-09-08] MEDS ORDERED: MAG HYDROX/AL HYDROX/SIMETH 30 ML CUP PO PRN (08:25)
[2020-09-08] MEDS ORDERED: ARTIFICIAL TEARS-HYPROMELLOSE DROPS 15 ML BTL BOTH EYES PRN (08:25)
[2020-09-08] MEDS ORDERED: ALBUTEROL NEBULIZED 2.5 MG/3 ML INHALATION PRN (08:25)
[2020-09-08] MEDS ORDERED: bisacodyL 10 MG SUPP RECTAL PRN (08:25)
[2020-09-08] MEDS ORDERED: CALCIUM CARBONATE 500 MG CHEWABLE PO PRN (08:25)
[2020-09-08] MEDS ORDERED: NITROGLYCERIN SL TABS 0.4 MG TAB SUBLINGUAL PRN (08:25)
--- NOTE | 2020-09-08 08:44 | P.HPIM ---
History of Present Illness H&P Date: 09/08/20 Chief Complaint: Syncope The patient states sudden onset of syncopal episode after preparing dinner last night. She has no recollection of her fall except now she has significant left shoulder pain. Remote history of syncope but nothing recently. No overt chest pressure no double vision no aura stated. No history of seizure disorder in the past. She now seems quite lucid. No headache stated. Has an underlying history of COPD CAD diabetes hypertension hyperlipidemia previous myocardial infarction. Review of Systems Constitutional: Denies chills, Denies fever Eyes: denies blurred vision, denies pain Ears, nose, mouth and throat: Denies headache, Denies sore throat Cardiovascular: Denies chest pain, Denies shortness of breath Gastrointestinal: Denies abdominal pain, Denies diarrhea, Denies nausea, Denies vomiting Genitourinary: Denies dysuria, Denies hematuria Musculoskeletal: Denies myalgias Musculoskeletal: right: shoulder pain Integumentary: Denies pruritus, Denies rash Neurological: Denies numbness, Denies weakness Past Medical History Past Medical History: Asthma, Coronary Artery Disease (CAD), Cancer, Heart Failure, COPD, Diabetes Mellitus, GI Bleed, Hyperlipidemia, Hypertension, Myocardial Infarction ([place]), Osteoarthritis (OA), Pulmonary Embolus ([place]), Renal Disease, Rheumatoid Arthritis ([place]), Sleep Apnea/CPAP/BIPAP, Syncope, Thyroid Disorder Additional Past Medical History / Comment(s): IDDM type II poorly cont rolled,uses cpap bilateral peripheral neuropathy bilateral hands/feet, CKD , UTIs, legally blind bilaterally-sees minimally, thyroid cancer with surgery, goiter, hashimotos, diverticular disease, 2013 upper and lower GI bleeds with blood loss anemia, gout, R humeral fracture with surgery, occasionally bladder incont.past falls, "lt ankle broke 3 places-SX DONE. pt stated "not walking but able to stand and pivot with med boot on," Last Myocardial Infarction Date:: 2009 History of Any Multi-Drug Resistant Organisms: None Reported Past Surgical History: Adenoidectomy, Back Surgery, Cholecystectomy, Heart Catheterization With Stent, Tonsillectomy Additional Past Surgical History / Comment(s): PCI with stent 2009, low back surgery, total R shoulder and total R knee arthroplasties, bilateral hand trigger finger surgeries, EGD, colonoscopy, L eye laser eye surgery for bleed, thyroidectomy.lt tib fib fx-plate and screws. Past Anesthesia/Blood Transfusion Reactions: No Reported Reaction Additional Past Anesthesia/Blood Transfusion Reaction / Comment(s): Pt has received blood in past without reaction. Date of Last Stent Placement:: 2009 Past Psychological History: Anxiety, Depression Smoking Status: Never smoker Past Alcohol Use History: None Reported Past Drug Use History: None Reported - Past Family History Mother Family Medical History: Asthma, CVA/TIA, Seizure Disorder Additional Family Medical History / Comment(s): epilepsy Father Family Medical History: COPD, Diabetes Mellitus Additional Family Medical History / Comment(s): many heart problems Medications and Allergies Home Medications Medication Instructions Recorded Confirmed Type RX: Sodium Bicarbonate 325 mg PO TID@0800,1400,199908/06/16 01/04/19 History RX: Atorvastatin [Lipitor] 40 mg PO HS 11/21/17 01/04/19 History RX: Calcium Acetate [PhosLo] 667 mg PO TID@0800,1400,199911/21/17 01/04/19 History RX: DULoxetine HCL [Cymbalta] 30 mg PO BID@0800,1700 11/21/17 01/04/19 History RX: Ferrous Sulfate [Iron (65 MG 325 mg PO DAILY@1700 11/21/17 01/04/19 History Elemental)] RX: Fluticasone Propionate 2 puff INHALATION RT-BID 11/21/17 01/04/19 History [Flovent Hfa 110 mcg] RX: Insulin Aspart [NovoLOG 7 unit SQ AC-TID 11/21/17 01/04/19 History Flexpen] RX: Levothyroxine Sodium 175 mcg PO DAILY@0600 11/21/17 01/04/19 History [Synthroid] RX: Montelukast [Singulair] 10 mg PO HS 11/21/17 01/04/19 History RX: polyethylene glycoL 3350 17 gm PO DAILY 11/21/17 01/04/19 History [Miralax] RX: Acetaminophen [Tylenol] 650 mg PO Q4H PRN 08/19/18 01/04/19 History RX: Albuterol Nebulized [Ventolin 2.5 mg INHALATION RT-QID PRN 08/19/18 01/04/19 History Nebulized] RX: Calcium Carbonate [Tums] 1,000 mg PO TID PRN 08/19/18 01/04/19 History RX: Dextran 70/Hypromellose 1 drop BOTH EYES QID PRN 08/19/18 01/04/19 History [Genteal Tears 0.1%-0.3% Drop] RX: Insulin Degludec [Tresiba] 37 units SQ HS 08/19/18 01/04/19 History RX: Mag Hydrox/Al Hydrox/Simeth 30 ml PO DAILY PRN 08/19/18 01/04/19 History [Maalox] RX: Pantoprazole Sodium [Protonix] 40 mg PO DAILY 08/19/18 01/04/19 History RX: Sennosides [Senna] 8.6 mg PO BID@0800,1700 08/19/18 01/04/19 History RX: bisacodyL [Dulcolax] 10 mg RECTAL DAILY PRN 08/19/18 01/04/19 History RX: Epoetin Russ [Epogen] 20,000 unit SQ WE 01/04/19 01/04/19 History RX: Furosemide [Lasix] 20 mg PO DAILY@0800 01/04/19 01/04/19 History RX: Nystatin 100,000Unit/gm Cream 1 applic TOPICAL QID 01/04/19 01/04/19 History [Mycostatin Cream] RX: Sucralfate [Carafate] 1 gm PO QID@06,11,1730,2130 01/04/19 01/04/19 History RX: allopurinoL [Zyloprim] 300 mg PO DAILY 01/04/19 01/04/19 History RX: Aspirin 81 mg PO DAILY #30 chew 01/13/19 Rx RX: Clopidogrel [Plavix] 75 mg PO DAILY #30 tab 01/13/19 Rx RX: Gabapentin [Neurontin] 400 mg PO TID@0800,1400,2000 #9 cap 01/13/19 Rx RX: Isosorbide Mononitrate ER 30 mg PO DAILY #30 tab.er.24h 01/13/19 Rx [Imdur] RX: Lactulose [Cephulac] 30 gm PO DAILY ml 01/13/19 Rx RX: Nitroglycerin Sl Tabs 0.4 mg SUBLINGUAL Q5M PRN #25 tab 01/13/19 Rx [Nitrostat] RX: carvediloL [Coreg*] 12.5 mg PO BID@0800,1700 #60 tab 01/13/19 Rx RX: oxyCODONE HCL [OxyIR] 5 mg PO Q4H PRN #18 tab 01/13/19 Rx Allergies Allergy/AdvReac Type Severity Reaction Status Date / Time No Known Allergies Allergy Verified 01/04/19 21:25 Physical Exam Vitals: Vital Signs Temp Pulse Resp BP Pulse Ox 09/08/20 08:08 97.7 F 54 L 16 157/61 98 09/08/20 05:51 98 F 55 L 18 120/69 96 09/08/20 03:49 54 L 18 128/64 95 09/07/20 23:43 97.4 F L 54 L 18 149/51 97 09/07/20 22:35 58 L 18 141/65 96 09/07/20 19:30 98 F 60 18 111/56 94 L Intake and Output 09/07/20 09/08/20 09/08/20 22:59 06:59 14:59 Other: Weight 123.377 kg - Constitutional General appearance: no acute distress - EENT Eyes: EOMI - Neck Neck: no lymphadenopathy - Respiratory Respiratory: bilateral: CTA - Cardiovascular Rhythm: regular Heart sounds: normal: S1, S2 Abnormal Heart Sounds: no S3 Gallop - Gastrointestinal General gastrointestinal: soft, no tenderness - Integumentary Integumentary: no cellulitis - Psychiatric Psychiatric: A&O x's 3, appropriate affect Results CBC & Chem 7: 09/08/20 05:39 09/08/20 05:39 Labs: Abnormal Lab Results - Last 24 Hours (Table) 09/07/20 09/07/20 09/07/20 Range/Units 20:07 20:07 20:07 RBC 3.61 L (3.80-5.40) m/uL Hgb 11.2 L (11.4-16.0) gm/dL Plt Count 132 L (150-450) k/uL Sodium 135 L (137-145) mmol/L Carbon Dioxide (22-30) mmol/L BUN 36 H (7-17) mg/dL Creatinine 2.12 H (0.52-1.04) mg/dL Glucose 305 H (74-99) mg/dL POC Glucose (mg/dL) (75-99) mg/dL Plasma Lactic Acid Kamron (0.7-2.0) mmol/L Total Protein 5.9 L (6.3-8.2) g/dL Albumin 2.9 L (3.5-5.0) g/dL Urine Appearance Turbid H (Clear) Urine Protein 2+ H (Negative) Urine Blood Small H (Negative) Ur Leukocyte Esterase Large H (Negative) Urine RBC 8 H (0-5) /hpf Urine WBC >182 H (0-5) /hpf Urine WBC Clumps Many H (None) /hpf Ur Squamous Epith Cells 25 H (0-4) /hpf Urine Bacteria Many H (None) /hpf Urine Mucus Rare H (None) /hpf 09/07/20 09/07/20 09/08/20 Range/Units 20:07 23:33 05:39 RBC 3.64 L (3.80-5.40) m/uL Hgb (11.4-16.0) gm/dL Plt Count 120 L (150-450) k/uL Sodium (137-145) mmol/L Carbon Dioxide (22-30) mmol/L BUN (7-17) mg/dL Creatinine (0.52-1.04) mg/dL Glucose (74-99) mg/dL POC Glucose (mg/dL) 259 H (75-99) mg/dL Plasma Lactic Acid Kamron 2.1 H* (0.7-2.0) mmol/L Total Protein (6.3-8.2) g/dL Albumin (3.5-5.0) g/dL Urine Appearance (Clear) Urine Protein (Negative) Urine Blood (Negative) Ur Leukocyte Esterase (Negative) Urine RBC (0-5) /hpf Urine WBC (0-5) /hpf Urine WBC Clumps (None) /hpf Ur Squamous Epith Cells (0-4) /hpf Urine Bacteria (None) /hpf Urine Mucus (None) /hpf 09/08/20 09/08/20 Range/Units 05:39 08:01 RBC (3.80-5.40) m/uL Hgb (11.4-16.0) gm/dL Plt Count (150-450) k/uL Sodium (137-145) mmol/L Carbon Dioxide 32 H (22-30) mmol/L BUN 40 H (7-17) mg/dL Creatinine 2.40 H (0.52-1.04) mg/dL Glucose 129 H (74-99) mg/dL POC Glucose (mg/dL) 131 H (75-99) mg/dL Plasma Lactic Acid Kamron (0.7-2.0) mmol/L Total Protein (6.3-8.2) g/dL Albumin (3.5-5.0) g/dL Urine Appearance (Clear) Urine Protein (Negative) Urine Blood (Negative) Ur Leukocyte Esterase (Negative) Urine RBC (0-5) /hpf Urine WBC (0-5) /hpf Urine WBC Clumps (None) /hpf Ur Squamous Epith Cells (0-4) /hpf Urine Bacteria (None) /hpf Urine Mucus (None) /hpf Assessment and Plan (1) Syncope Current Visit: Yes Status: Acute Code(s): R55 - SYNCOPE AND COLLAPSE SNOMED Code(s): 168848815 (2) Anemia Current Visit: No Status: Acute Code(s): D64.9 - ANEMIA, UNSPECIFIED SNOMED Code(s): 242493012 (3) CHF (congestive heart failure) Current Visit: No Status: Acute Code(s): I50.9 - HEART FAILURE, UNSPECIFIED SNOMED Code(s): 56924558 (4) Chronic renal failure Current Visit: No Status: Acute Code(s): N18.9 - CHRONIC KIDNEY DISEASE, UNSPECIFIED SNOMED Code(s): 15663981 (5) Diabetic neuropathy Current Visit: No Status: Acute Code(s): E11.40 - TYPE 2 DIABETES MELLITUS WITH DIABETIC NEUROPATHY, UNSP SNOMED Code(s): 482738289 Plan: We'll go ahead and check echocardiogram and carotid Doppler and computed tomography scan of the head. Asked neurology to see the patient. Reconcile medications. Watch vitals closely. Check CBC and CMP in a.m. Prognosis is guarded secondary to her multiple comorbidities.
[2020-09-08] MEDS: PANTOPRAZOLE 40 MG TABLET PO SCH (08:53)
[2020-09-08] MEDS: polyethylene glycoL 3350 17 GM POWD.PACK PO SCH (08:53)
[2020-09-08] MEDS: LACTULOSE 20 GM/30 ML CUP PO SCH (08:53)
[2020-09-08] MEDS: CLOPIDOGREL 75 MG TAB PO SCH (08:53)
[2020-09-08] MEDS: ISOSORBIDE MONONITRATE ER 30 MG TAB.ER.24H PO SCH (08:53)
[2020-09-08] MEDS: allopurinoL 300 MG TAB PO SCH (08:54)
[2020-09-08] MEDS: ASPIRIN 81 MG PO SCH (08:54)
[2020-09-08] MEDS ORDERED: NYSTATIN 100,000UNIT/GM CREAM 30 GM TUBE TOPICAL PRN (09:00)
[2020-09-08] MEDS: LEVOTHYROXINE 88 MCG TAB PO SCH (09:13)
[2020-09-08] MEDS: FUROSEMIDE 20 MG TAB PO SCH (09:14)
[2020-09-08] MEDS: CALCIUM ACETATE 667 MG TAB PO SCH ×3 (11:15→20:45)
[2020-09-08] MEDS ORDERED: ALPRAZolam 0.5 MG TAB PO PRN (11:35)
[2020-09-08] MEDS ORDERED: ALPRAZolam 0.25 MG TAB PO PRN (11:35)
[2020-09-08 12:04] LABS: Glucose,Whole Blood 177 mg/dL (75-99)
--- NOTE | 2020-09-08 12:11 | P.CRDCN ---
History of Present Illness History of present illness: HISTORY OF PRESENTING ILLNESS This is a pleasant 65-year-old female past medical history significant for coronary artery disease s/p PCI RCA and LAD most recently the LAD was done in 2019, hypertension, dyslipidemia, diabetes mellitus, COPD and morbid obesity. She has followed in the office with Dr. Earl in the past, however has not been to the office since 2019 due to financial constraints. We have been asked to see in consultation for syncope. She states yesterday evening she was up in the kitchen getting ready to make dinner when her granddaughter asked her a question. She turned around to answer her and she started feeling acutely dizzy and lightheaded. She was then diaphoretic and the next thing she remembers is waking up on the floor. According to her granddaughter she was out for approximately 3 minutes. EMS was called. On arrival her blood sugar was checked and was in the 300 range. The patient doesn't quite remember the events surrounding her syncope only that she felt dizzy and diaphoretic. On arrival to the ER she continued to feel weak, tired and developed some nausea. She denies feeling chest pain, shortness of breath or palpitations surrounding the event. On further discussion she recalls feeling a burning sensation in her chest in the mid-sternal region earlier that day that was briefly relieved with tums. She also describes that over the last month she has had this same burning sensation at times. DIAGNOSTICS EKG reveals sinus bradycardia, first degree AV block, heart rate 57, left axis deviation and poor R wave progression. Telemetry tracings indicate sinus bradycardia with frequent PVC's. Chest xray no acute cardiopulmonary process. Laboratory reviewed, WBC 6.8, hgb 11.5, plt 120, sodium 137, potassium 4.8, creatinine 2.4 up from 2.12 on admission and troponin negative x2. Current cardiac medications include imdur 30 mg daily, aspirin 81 mg daily, plavix 75 mg daily, lasix 20 mg daily, coreg 25 mg BID abd atorvastatin 40 mg d aily. Most recent echocardiogram obtained 12/2018 revealed preserved LV systolic function with EF 60-65%, moderate-severe MR, mild TR and mild pulmonary hypertension. Most recent catheterization performed 12/2018 she underwent successful PCI of the LAD in the proximal portion for a 90% lesion, there was also a plaque in the origin of the diagonal 60-70%, RCA was patent at the previously stented segment with mild diffuse disease otherwise, left main free of significant disease and circumflex with a total occlusion in the mid-portion with collaterals. REVIEW OF SYSTEMS At the time of my exam: CONSTITUTIONAL: Denies fever or chills. CARDIOVASCULAR: Denies chest pain, shortness of breath, orthopnea, PND or palpitations. RESPIRATORY: Denies cough. GASTROINTESTINAL: Denies abdominal pain, diarrhea, constipation, nausea or vomiting. MUSCULOSKELETAL: Denies myalgias. NEUROLOGIC: Denies numbness, tingling, headacbe or weakness. ENDOCRINE: Denies fatigue, weight change, polydipsia or polyurina. GENITOURINARY: Denies burning, hematuria or urgency with micturation. HEMATOLOGIC: Denies history of anemia or bleeding. PHYSICAL EXAMINATION Blood pressure 157/61 heart rate 54 afebrile and maintaining oxygen saturation on room air. CONSTITUTIONAL: No apparent distress. Obese. HEENT: Head is normocephalic. Pupils are equal, round. Sclerae anicteric. Mucous membranes of the mouth are moist. No JVD. No carotid bruit. CHEST EXAMINATION: Lungs are clear to auscultation. No chest wall tenderness is noted on palpation or with deep breathing. Diminished bilaterally. HEART EXAMINATION: Regular rate and rhythm. S1, S2 heard. Systolic ejection murmur at the base, no gallops or rub. ABDOMEN: Soft, nontender. Positive bowel sounds. EXTREMITIES: 2+ peripheral pulses, no lower extremity edema and no calf tenderness. NEUROLOGIC EXAMINATION: Patient is awake, alert and oriented x3. ASSESSMENT Syncope Unstable angina Chronic kidney disease Coronary artery disease Hypertension Dyslipidemia Diabetes mellitus COPD Sleep apnea Morbid obesity, BMI 46 PLAN Symptoms are concerning for unstable angina with possible arrhythmia causing her syncope. Recommend proceeding with cardiac catheterization for further evaluation. Echocardiogram has been obtained and will be reviewed. We will hydrate her today and plan for procedure tomorrow morning depending on her renal function. Ongoing telemetry monitoring. Further recommendations to follow based on clinical course. Thank you kindly for this consultation. Nurse Practitioner note has been reviewed, I agree with a documented findings and plan of care. Patient was seen and examined. Past Medical History Past Medical History: Asthma, Coronary Artery Disease (CAD), Cancer, Heart Failure, COPD, Diabetes Mellitus, GI Bleed, Hyperlipidemia, Hypertension, Myocardial Infarction ([place]), Osteoarthritis (OA), Pulmonary Embolus ([place]), Renal Disease, Rheumatoid Arthritis (RA), Sleep Apnea/CPAP/BIPAP, Syncope, Thyroid Disorder Additional Past Medical History / Comment(s): IDDM type II poorly controlled,uses cpap bilateral peripheral neuropathy bilateral hands/feet, CKD , UTIs, legally blind bilaterally-sees minimally, thyroid cancer with surgery, goiter, hashimotos, diverticular disease, 2013 upper and lower GI bleeds with blood loss anemia, gout, R humeral fracture with surgery, occasionally bladder incont.past falls, "lt ankle broke 3 places-SX DONE. pt stated "not walking but able to stand and pivot with med boot on," Last Myocardial Infarction Date:: 2009 History of Any Multi-Drug Resistant Organisms: None Reported Past Surgical History: Adenoidectomy, Back Surgery, Cholecystectomy, Heart Catheterization With Stent, Tonsillectomy Additional Past Surgical History / Comment(s): PCI with stent 2009, low back surgery, total R shoulder and total R knee arthroplasties, bilateral hand trigger finger surgeries, EGD, colonoscopy, L eye laser eye surgery for bleed, thyroidectomy.lt tib fib fx-plate and screws. Past Anesthesia/Blood Transfusion Reactions: No Reported Reaction Additional Past Anesthesia/Blood Transfusion Reaction / Comment(s): Pt has received blood in past without reaction. Date of Last Stent Placement:: 2009 Past Psychological History: Anxiety, Depression Smoking Status: Never smoker Past Alcohol Use History: None Reported Past Drug Use History: None Reported - Past Family History Mother Family Medical History: Asthma, CVA/TIA, Seizure Disorder Additional Family Medical History / Comment(s): epilepsy Father Family Medical History: COPD, Diabetes Mellitus Additional Family Medical History / Comment(s): many heart problems Medications and Allergies Home Medications Medication Instructions Recorded Confirmed Type RX: Calcium Acetate [PhosLo] 667 mg PO TID@0800,1400,2000 11/21/17 09/08/20 History RX: Ferrous Sulfate [Iron (65 MG 325 mg PO DAILY@1700 11/21/17 09/08/20 History Elemental)] RX: Fluticasone Propionate 2 puff INHALATION RT-BID 11/21/17 09/08/20 History [Flovent Hfa 110 mcg] RX: Insulin Aspart [NovoLOG 5 unit SQ AC-BID 11/21/17 09/08/20 History Flexpen] RX: Levothyroxine Sodium 175 mcg PO DAILY@0600 11/21/17 09/08/20 History [Synthroid] RX: Montelukast [Singulair] 10 mg PO HS 11/21/17 09/08/20 History RX: polyethylene glycoL 3350 17 gm PO DAILY 11/21/17 09/08/20 History [Miralax] RX: Insulin Degludec [Tresiba] 40 units SQ HS 08/19/18 09/08/20 History RX: Pantoprazole Sodium [Protonix] 40 mg PO DAILY 08/19/18 09/08/20 History RX: Furosemide [Lasix] 20 mg PO DAILY@0800 01/04/19 09/08/20 History RX: Nystatin 100,000Unit/gm Cream 1 applic TOPICAL BID 01/04/19 09/08/20 History [Mycostatin Cream] RX: Sucralfate [Carafate] 1 gm PO TID 01/04/19 09/08/20 History RX: allopurinoL [Zyloprim] 300 mg PO DAILY 01/04/19 09/08/20 History RX: Aspirin 81 mg PO DAILY #30 chew 01/13/19 09/08/20 Rx RX: Clopidogrel [Plavix] 75 mg PO DAILY #30 tab 01/13/19 09/08/20 Rx RX: Gabapentin [Neurontin] 400 mg PO TID@0800,1400,2000 #9 cap 01/13/19 09/08/20 Rx RX: Isosorbide Mononitrate ER 30 mg PO DAILY #30 tab.er.24h 01/13/19 09/08/20 Rx [Imdur] RX: Nitroglycerin Sl Tabs 0.4 mg SUBLINGUAL Q5M PRN #25 tab 01/13/19 09/08/20 Rx [Nitrostat] Atorvastatin [Lipitor] 40 mg PO HS 09/08/20 09/08/20 History Carvedilol [Coreg] 25 mg PO BID 09/08/20 09/08/20 History DULoxetine HCL [Cymbalta] 60 mg PO BID 09/08/20 09/08/20 History Insulin Aspart [NovoLOG Flexpen] 6 units SQ AC-LUNCH 09/08/20 09/08/20 History RX: calcitrioL [Calcitriol] 0.25 mcg PO WEEKLY 09/08/20 09/08/20 History Allergies Allergy/AdvReac Type Severity Reaction Status Date / Time No Known Allergies Allergy Verified 09/08/20 09:20 Physical Exam Vitals: Vital Signs Temp Pulse Resp BP Pulse Ox 09/08/20 08:08 97.7 F 54 L 16 157/61 98 09/08/20 05:51 98 F 55 L 18 120/69 96 09/08/20 03:49 54 L 18 128/64 95 09/07/20 23:43 97.4 F L 54 L 18 149/51 97 09/07/20 22:35 58 L 18 141/65 96 09/07/20 19:30 98 F 60 18 111/56 94 L Intake and Output 09/07/20 09/08/20 09/08/20 22:59 06:59 14:59 Other: Weight 123.377 kg Results 09/08/20 05:39 09/08/20 05:39 Cardiac Enzymes 09/07/20 09/07/20 Range/Units 20:07 20:07 AST 22 (14-36) U/L Troponin I <0.012 (0.000-0.034) ng/mL Coagulation 09/07/20 Range/Units 20:07 PT 10.0 (9.0-12.0) sec APTT 22.1 (22.0-30.0) sec CBC 09/07/20 09/08/20 Range/Units 20:07 05:39 WBC 8.4 6.8 (3.8-10.6) k/uL RBC 3.61 L 3.64 L (3.80-5.40) m/uL Hgb 11.2 L 11.5 (11.4-16.0) gm/dL Hct 34.2 34.7 (34.0-46.0) % Plt Count 132 L 120 L (150-450) k/uL Comprehensive Metabolic Panel 09/07/20 09/08/20 Range/Units 20:07 05:39 Sodium 135 L 137 (137-145) mmol/L Potassium 4.7 4.8 (3.5-5.1) mmol/L Chloride 101 101 (98-107) mmol/L Carbon Dioxide 29 32 H (22-30) mmol/L BUN 36 H 40 H (7-17) mg/dL Creatinine 2.12 H 2.40 H (0.52-1.04) mg/dL Glucose 305 H 129 H (74-99) mg/dL Calcium 9.1 9.2 (8.4-10.2) mg/dL AST 22 (14-36) U/L ALT 9 (4-34) U/L Alkaline Phosphatase 83 (38-126) U/L Total Protein 5.9 L (6.3-8.2) g/dL Albumin 2.9 L (3.5-5.0) g/dL Current Medications Generic Name Dose Route Start Last Admin Trade Name Freq PRN Reason Stop Dose Admin Al Hydroxide/Mg Hydroxide 30 ml 09/08/20 08:25 Mag Hydrox/Al Hydrox/Simeth 30 Ml Cup PO DAILY PRN Constipation Albuterol Sulfate 2.5 mg 09/08/20 08:25 Albuterol Nebulized 2.5 Mg/3 Ml INHALATION RT-QID PRN Shortness Of Breath Or Wheezing Allopurinol 300 mg 09/08/20 09:00 Allopurinol 300 Mg Tab PO DAILY [facility] Artificial Tears 1 drops 09/08/20 08:25 Artificial Tears-Hypromellose Drops 15 Ml Btl BOTH EYES QID PRN Dry Eye(s) Aspirin 81 mg 09/08/20 09:00 Aspirin 81 Mg PO DAILY [facility] Atorvastatin Calcium 40 mg 09/08/20 21:00 Atorvastatin 40 Mg Tab PO HS [facility] Bisacodyl 10 mg 09/08/20 08:25 Bisacodyl 10 Mg Supp RECTAL DAILY PRN Constipation Calcium Acetate 667 mg 09/08/20 14:00 Calcium Acetate 667 Mg Tab PO TID@0800,1400,2000 [facility] Calcium Carbonate/Glycine 1,000 mg 09/08/20 08:25 Calcium Carbonate 500 Mg Chewable PO TID PRN Indigestion Carvedilol 12.5 mg 09/08/20 17:00 Carvedilol 12.5 Mg Tab PO BID@0800,1700 [facility] Clopidogrel Bisulfate 75 mg 09/08/20 09:00 Clopidogrel 75 Mg Tab PO DAILY [facility] Darbepoetin Russ 60 mcg 09/14/20 09:00 Darbepoetin Russ 60 Mcg/0.3 Ml Syringe SQ [facility] Duloxetine HCl 30 mg 09/08/20 17:00 Duloxetine Hcl 30 Mg Capsule. PO BID@0800,1700 [facility] Ferrous Sulfate 325 mg 09/08/20 17:00 Ferrous Sulfate 325 Mg Tab PO DAILY@1700 [facility] Fluticasone Propionate 2 puff 09/08/20 20:00 Fluticasone 110 Mcg Inhaler INHALATION RT-BID [facility] Gabapentin 400 mg 09/08/20 14:00 Gabapentin 400 Mg Cap PO TID@0800,1400,2000 [facility] Sodium Chloride 1,000 mls @ 50 mls/hr 09/07/20 21:00 09/07/20 21:07 Saline 0.9% IV 20 mls/hr .Q20H [facility] Administration Insulin Aspart 0 unit 09/07/20 23:29 09/08/20 08:06 Insulin Aspart (Novolog) 100 Unit/Ml Vial SQ 1 unit ACHS [facility] Administration Protocol Insulin Aspart 7 unit 09/08/20 12:30 Insulin Aspart (Novolog) 100 Unit/Ml Vial SQ AC-TID [facility] Isosorbide Mononitrate 30 mg 09/08/20 09:00 Isosorbide Mononitrate Er 30 Mg Tab.Er.24h PO DAILY [facility] Lactulose 30 gm 09/08/20 09:00 Lactulose 20 Gm/30 Ml Cup PO DAILY [facility] Montelukast Sodium 10 mg 09/08/20 21:00 Montelukast 10 Mg Tab PO HS [facility] Naloxone HCl 0.2 mg 09/07/20 20:55 Naloxone 0.4 Mg/Ml 1 Ml Vial IV Q2M PRN Opioid Reversal Nitroglycerin 0.4 mg 09/08/20 08:25 Nitroglycerin Sl Tabs 0.4 Mg Tab SUBLINGUAL Q5M PRN Chest Pain Nystatin 1 applic 09/08/20 09:00 Nystatin 100,000unit/Gm Cream 30 Gm Tube TOPICAL QID PRN [facility]RIT[facility] Pantoprazole Sodium 40 mg 09/08/20 09:00 Pantoprazole 40 Mg Tablet PO DAILY [facility] Polyethylene Glycol 17 gm 09/08/20 09:00 Polyethylene Glycol 3350 17 Gm Powd.Pack PO DAILY [facility] Senna 8.6 mg 09/08/20 17:00 Sennosides 8.6 Mg Tab PO BID@0800,1700 [facility] Sodium Bicarbonate 325 mg 09/08/20 14:00 Sodium Bicarbonate Tab 650 Mg Tab PO TID@0800,1400,2000 [facility] Sucralfate 1 gm 09/08/20 11:00 Sucralfate 1 Gm Tab PO QID@06,11,1730,2130 [facility] Tramadol HCl 50 mg 09/08/20 03:50 09/08/20 04:28 Tramadol 50 Mg Tab PO 50 mg Q6H PRN Administration Pain Intake and Output 09/07/20 09/08/20 09/08/20 22:59 06:59 14:59 Other: Weight 123.377 kg 09/08/20 05:39 09/08/20 05:39
[2020-09-08] MEDS: SUCRALFATE 1 GM TAB PO SCH ×3 (12:25→20:48)
--- NOTE | 2020-09-08 13:48 | ECHOF ---
Referral Reason:syncope MEASUREMENTS -------- HEIGHT: 162.6 cm WEIGHT: 123.4 kg BP: 120/69 RVIDd: 3.6 cm (< 3.3) IVSd: 1.5 cm (0.6 - 1.1) LVIDd: 4.3 cm (3.9 - 5.3) LVPWd: 1.2 cm (0.6 - 1.1) IVSs: 1.6 cm LVIDs: 3.4 cm LVPWs: 1.2 cm LAESV Index (A-L): 27.91 ml/m Ao Diam: 3.2 cm (2.0 - 3.7) AV Cusp: 1.3 cm (1.5 - 2.6) MV E Marlon: 0.98 m/s MV DecT: 218 ms MV A Marlon: 1.24 m/s MV E/A Ratio: 0.79 AR PHT: 1265 ms RAP: 5.00 mmHg RVSP: 22.17 mmHg FINDINGS -------- Resting bradycardia (HR<60bpm). This was a technically adequate study. The left ventricular size is normal. There is moderate concentric left ventricular hypertrophy. O verall left ventricular systolic function is mildly impaired with, an EF between 45 - 50 %. Septal wall motion is delayed, and consistent with conduction delay/bundle branch block. The right ventricle is mild to moderately enlarged. Normal LA size by volume 22+/-6 ml/m2. The right atrium is mildly enlarged. Interatrial and interventricular septum intact. There is moderate aortic regurgitation. [id number] mitral regurgitation is present. Mild tricuspid regurgitation present. There is no evidence of pulmonary hypertension. The right v entricular systolic pressure, as measured by Doppler, is 22.17mmHg. There is no pulmonic regurgitation present. The aortic root size is normal. IVC Not well visulized. There is a small, generalized pericardial effusion present. CONCLUSIONS -------- 1. The left ventricular size is normal. 2. There is moderate concentric left ventricular hypertrophy. 3. Overall left ventricular systolic function is mildly impaired with, an EF between 45 - 50 %. 4. The right ventricle is mild to moderately enlarged. 5. The right atrium is mildly enlarged. 6. There is moderate aortic regurgitation. 7. Ancc-xm-poafvmut mitral regurgitation is present. 8. Mild tricuspid regurgitation present. 9. There is a small, generalized pericardial effusion present. PARKING ASSISTANT: Millie Rojas RDCS
[2020-09-08] MEDS: SODIUM BICARBONATE TAB 650 MG TAB PO SCH ×2 (14:29→21:28)
[2020-09-08] MEDS: GABAPENTIN 400 MG CAP PO SCH ×2 (14:29→20:47)
[2020-09-08] MEDS: SODIUM CHLORIDE 0.9% 1,000 ML in EMPTY BAG 1 BAG IV SCH ×2 (14:30→20:48)
[2020-09-08] MEDS: carvediloL 12.5 MG TAB PO SCH (16:33)
[2020-09-08] MEDS: SENNOSIDES 8.6 MG TAB PO SCH (16:33)
[2020-09-08] MEDS: FERROUS SULFATE 325 MG TAB PO SCH (16:33)
[2020-09-08] MEDS: DULoxetine HCL 30 MG CAPSULE.DR PO SCH (16:33)
[2020-09-08 17:03] LABS: Glucose,Whole Blood 200 mg/dL (75-99)
[2020-09-08] MEDS: FLUTICASONE 110 MCG INHALER INHALATION SCH (20:43)
[2020-09-08] MEDS: MONTELUKAST 10 MG TAB PO SCH (20:47)
[2020-09-08] MEDS: ATORVASTATIN 40 MG TAB PO SCH (20:47)
[2020-09-08 20:48] LABS: Glucose,Whole Blood 78 mg/dL (75-99)
[2020-09-09] MEDS ORDERED: SODIUM CHLORIDE 0.9% 1,000 ML in EMPTY BAG 1 BAG IV ONE ×2 (05:00→07:19)
[2020-09-09] MEDS ORDERED: LEVOTHYROXINE 88 MCG TAB PO SCH (06:00)
[2020-09-09] MEDS ORDERED: HEPARIN SODIUM,PORCINE 2,500 UNIT in SODIUM CHLORIDE 0.9% 250 ML IRRIGATION PRN (07:00)
[2020-09-09] MEDS ORDERED: ASPIRIN 81 MG PO ONE (07:00)
[2020-09-09] MEDS ORDERED: HEPARIN SODIUM,PORCINE 10,000 UNIT in SODIUM CHLORIDE 0.9% 1,000 ML IRRIGATION PRN (07:00)
[2020-09-09] MEDS: LEVOTHYROXINE 88 MCG TAB PO SCH (07:28)
[2020-09-09] MEDS: INSULIN ASPART (NovoLOG) 100 UNIT/ML VIAL SQ SCH ×7 (07:30→21:36)
[2020-09-09] MEDS ORDERED: FUROSEMIDE 20 MG TAB PO SCH (08:00)
[2020-09-09 08:06] LABS: HCT 34.6 % (34.0-46.0); HGB 11.4 gm/dL (11.4-16.0); MCH 31.9 pg (25.0-35.0); MCHC 32.9 g/dL (31.0-37.0); MCV 96.7 fL (80.0-100.0); Mean Platelet Volume 8.9; Platelet Count 113 k/uL (150-450); RBC 3.58 m/uL (3.80-5.40); RDW 13.6 % (11.5-15.5); WBC 5.9 k/uL (3.8-10.6)
[2020-09-09] MEDS ORDERED: LIDOCAINE 1% INJ 10MG/ML (20 ML MDV) ONE (08:18)
[2020-09-09] MEDS: CLOPIDOGREL 75 MG TAB PO SCH (08:21)
[2020-09-09] MEDS: SODIUM CHLORIDE 0.9% 1,000 ML IV SCH ×4 (08:21→21:37)
[2020-09-09 08:23] LABS: Albumin 2.9 g/dL (3.5-5.0); Calcium 8.7 mg/dL (8.4-10.2); Total Bilirubin 0.3 mg/dL (0.2-1.3); Total Protein 5.9 g/dL (6.3-8.2)
[2020-09-09] MEDS: FLUTICASONE 110 MCG INHALER INHALATION SCH ×2 (08:59→20:10)
--- NOTE | 2020-09-09 09:00 | PN ---
PROGRESS NOTE This is a lady with a known CAD previous PCI, a known circumflex occlusion, who presented with syncope and has had chest discomfort of a nondescript type. She has not followed up with Cardiology since her PCI. She came in for one visit and after that she has decided not to come because of financial reasons. However, the possibility of progression of coronary artery disease is quite high under the circumstances with syncope, CAD, and also symptoms of chest discomfort. I am recommending coronary angiography. Patient was seen by Dr. Steen. However her creatinine is up to 2.4 today. I am recommending that we will hydrate her this morning at 150 mL/hour for at least 3 hours or so in addition to the hydration she received yesterday and we will use the least amount of contrast. Procedure will be performed around 10 or 11 a.m. this morning. The rationale, risks, benefits, options were explained to the patient in great detail. She understands all details and wishes to proceed with the procedure. I performed stenting of proximal LAD in December of 2018. She had a previous RCA that was stented was patent and circumflex is totally occluded after a small obtuse marginal. However, I explained to the patient the risk of renal failure with contrast administration, but we will use the least amount of contrast. The patient understands the risks, benefits, options and wishes to proceed. MMODL / IJN: [id number] /
[2020-09-09] MEDS ORDERED: IV FLUID CONTINUATION 700 ML IV ONE (10:35)
--- NOTE | 2020-09-09 10:44 | P.PN ---
Subjective Progress Note Date: 09/09/20 Principal diagnosis: Syncopal episode. The patient is here essentially because of acute syncopal episode which was witnessed. Patient has had significant PVCs is now scheduled for appropriate cardiac catheterization. No continued syncope stated since being hospitalized. Objective - Vital Signs Vital signs: Vital Signs Temp 98 F 09/09/20 06:53 Pulse 86 09/09/20 06:53 Resp 16 09/09/20 06:53 BP 147/86 09/09/20 06:53 Pulse Ox 95 09/09/20 02:00 Intake & Output 09/08/20 09/09/20 09/09/20 18:59 06:59 18:59 Intake Total 2060 0 Balance 2060 0 Weight 123.377 kg Intake: Intake, IV Titration 1100 Amount Sodium Chloride 0.9% 1, 1100 000 ml In Empty Bag 1 bag @ 1 ML/KG/HR 123.377 mls /hr IV .Q8H7M [facility] Rx#: [id number] Oral 960 0 Other: Voiding Method Toilet Toilet # Voids 2 - Constitutional General appearance: Present: obese - EENT Eyes: Absent: abnormal pupil - Neck Neck: Absent: lymphadenopathy - Respiratory Respiratory: bilateral: CTA - Cardiovascular Rhythm: regular Heart sounds: normal: S1, S2 Abnormal Heart Sounds: Absent: S3 Gallop - Integumentary Integumentary: Absent: cellulitis - Psychiatric Psychiatric: Present: A&O x's 3 - Labs CBC & Chem 7: 09/09/20 07:50 09/09/20 07:50 Labs: Abnormal Lab Results - Last 24 Hours (Table) 09/08/20 09/08/20 09/09/20 Range/Units 12:03 17:01 07:50 RBC 3.58 L (3.80-5.40) m/uL Plt Count 113 L (150-450) k/uL Sodium (137-145) mmol/L Carbon Dioxide (22-30) mmol/L BUN (7-17) mg/dL Creatinine (0.52-1.04) mg/dL Glucose (74-99) mg/dL POC Glucose (mg/dL) 177 H 200 H (75-99) mg/dL Total Protein (6.3-8.2) g/dL Albumin (3.5-5.0) g/dL 09/09/20 Range/Units 07:50 RBC (3.80-5.40) m/uL Plt Count (150-450) k/uL Sodium 136 L (137-145) mmol/L Carbon Dioxide 32 H (22-30) mmol/L BUN 44 H (7-17) mg/dL Creatinine 2.43 H (0.52-1.04) mg/dL Glucose 230 H (74-99) mg/dL POC Glucose (mg/dL) (75-99) mg/dL Total Protein 5.9 L (6.3-8.2) g/dL Albumin 2.9 L (3.5-5.0) g/dL Assessment and Plan (1) Syncope Current Visit: Yes Status: Acute Code(s): R55 - SYNCOPE AND COLLAPSE SNOMED Code(s): 729870516 (2) Anemia Current Visit: No Status: Acute Code(s): D64.9 - ANEMIA, UNSPECIFIED SNOMED Code(s): 456209852 (3) CHF (congestive heart failure) Current Visit: No Status: Acute Code(s): I50.9 - HEART FAILURE, UNSPECIFIED SNOMED Code(s): 42122086 (4) Chronic renal failure Current Visit: No Status: Acute Code(s): N18.9 - CHRONIC KIDNEY DISEASE, UNSPECIFIED SNOMED Code(s): 37695599 (5) Diabetic neuropathy Current Visit: No Status: Acute Code(s): E11.40 - TYPE 2 DIABETES MELLITUS WITH DIABETIC NEUROPATHY, UNSP SNOMED Code(s): 842572009 Plan: Await appropriate cardiac workup today. The patient states she is scheduled for appropriate cardiac catheterization. Appreciate cardiology input. We will continue to follow. Dr. Shah's group will be covering for the weekend. Anticipate discharge in the next 24 hours if she is stabilizing.
[2020-09-09] MEDS ORDERED: NITROGLYCERIN SL TABS 0.4 MG TAB SUBLINGUAL ONE ×2 (10:49→10:57)
[2020-09-09] MEDS ORDERED: MIDAZOLAM 2 MG/2 ML VIAL IV ONE ×2 (10:57→11:02)
[2020-09-09] MEDS ORDERED: fentaNYL (PF) 50 MCG/ML 2 ML AMP ONE (11:00)
[2020-09-09] MEDS ORDERED: LIDOCAINE 1% INJ 10MG/ML (20 ML MDV) SQ ONE (11:00)
[2020-09-09] MEDS ORDERED: fentaNYL (PF) 50 MCG/ML 2 ML AMP IV ONE (11:01)
[2020-09-09] MEDS ORDERED: IOPAMIDOL-370 100ML BTL INJ ONE (11:11)
--- NOTE | 2020-09-09 12:12 | CC ---
CARDIAC CATHETERIZATION REPORT DATE OF SERVICE: 09/09/2020. PROCEDURE: Left heart catheterization and coronary angiography. PERFORMED BY: Dr. Bebeto Earl. Moderate conscious sedation time was 14 minutes. Patient was administered Versed and fentanyl. Oxygen saturation, hemodynamics and EKG were monitored closely. CLINICAL INFORMATION: Mrs. Yocasta Ho is a 65-year-old lady with a history of type 2 diabetes with chronic kidney disease, hypertension, hyperlipidemia, CAD with previous stenting of RCA in 2011 and LAD proximal LAD in December of 2018 by me. The 2011 stent was performed by Dr. Isi Earl. She did not see me since May of 2019, but came into the hospital with episode of syncope, had chest pain. She has significant diffuse disease. She is known to have a total occlusion of the circumflex after a small obtuse marginal. Because of her syncope, chest discomfort and known previous CAD, she was advised coronary angiography after due discussion. Her creatinine was high at 2.4. She was hydrated. All risks, benefits, options were explained and she was brought in for the procedure. PROCEDURE NOTE: Under local anesthesia and strict aseptic precautions, a 6-[place] introducer was placed in the right femoral artery. Using a standard Macy catheters I performed coronary angiography and the same right catheter was used to check LV pressure but LV gram was not performed. The sheath was taken out and Angio-Seal device used to secure hemostasis and she was sent to the room in stable condition. Results were discussed with the patient. There was no family available. CARDIAC CATHETERIZATION FINDINGS: The left ventricular end-diastolic pressure was 12-13 mmHg without any gradient across aortic valve. CORONARY ANGIOGRAPHY FINDINGS: RIGHT CORONARY ARTERY: Large dominant vessel. The proximal area that was stented is widely patent. The rest of the vessel has minor irregularities, moderate calcification and distally bifurcates into PLV and small PDA branch. An acute marginal branch that comes off and supplies the PDA territory. The PLV has about a 40% narrowing and divides into a secondary branch. RCA itself does not have any significant disease and the stented segment in the proximal RCA is widely patent. LEFT MAIN CORONARY ARTERY: This is a short patent vessel free of significant disease and distally there is a 20% lesion with plaque. This is unchanged compared to 2019. The a left main then bifurcates into LAD and circumflex. LEFT ANTERIOR DESCENDING CORONARY ARTERY: This vessel was stented in the very proximal portion by me in 2018. The stented segment looks widely patent with remarkably good angiographic flow. Distally, there is about a 30% to 40% narrowing but no significant lesions are noted. There is a good-sized diagonal branch whose ostium has a tight 70% stenosis. Angiographic appearance is identical to the post PCI procedure that was performed in 2019 pictures. The LAD at the stented area is patent. Mid LAD has a 30% to 40% narrowing. The diagonal has a 70% to 80% narrowing. The angiographic appearance is identical to the final images of 2019 after intervention. LEFT POSTERIOR CIRCUMFLEX CORONARY ARTERY: This vessel is totally occluded after small acute marginal branch. It appears to be a nondominant vessel with limited distal flow. These findings are also unchanged compared to the previous study. LEFT VENTRICULOGRAM: LV-gram was not performed. The patient received a total of 40 mL of contrast. FINAL IMPRESSION: This patient has a right dominant system. Widely patent RCA at the site of stenting. No other significant disease. Left main has a 20% distal lesion unchanged. LAD is widely patent in the stented area and the rest of LAD has no significant disease. Nondominant circumflex is totally occluded after a small obtuse marginal branch. Filling pressures are good and there is no gradient across aortic valve. RECOMMENDATIONS: Continued medical therapy with risk factor modification advised. I am recommending an event monitor as well and she will see my nurse practitioner in the office at 4 p.m. 09/14/2020. MMODL / IJN: [id number] /
[2020-09-09] MEDS: FUROSEMIDE 20 MG TAB PO SCH (13:05)
[2020-09-09] MEDS: CALCIUM ACETATE 667 MG TAB PO SCH ×3 (13:05→21:36)
[2020-09-09] MEDS: SUCRALFATE 1 GM TAB PO SCH ×3 (13:05→21:38)
[2020-09-09] MEDS: SENNOSIDES 8.6 MG TAB PO SCH ×2 (13:06→18:30)
[2020-09-09] MEDS: GABAPENTIN 400 MG CAP PO SCH ×3 (13:06→21:36)
[2020-09-09] MEDS: SODIUM BICARBONATE TAB 650 MG TAB PO SCH ×3 (13:06→21:36)
[2020-09-09] MEDS: ASPIRIN 81 MG PO SCH (13:06)
[2020-09-09] MEDS: polyethylene glycoL 3350 17 GM POWD.PACK PO SCH (13:07)
--- NOTE | 2020-09-09 13:57 | P.NPCON ---
History of Present Illness - Reason for Consult acute renal failure, chronic renal failure - History of Present Illness Reason for consultation: Acute kidney injury on chronic kidney disease History of present illness: Patient is a 65-year-old female seen in consultation for acute kidney injury on chronic kidney disease. Patient has chronic kidney disease stage IV with baseline creatinine in the range of 1.6-2. Creatinine was 2.1 to this admission and is 2.4 today. Patient presented to the hospital by the EMS after she had a syncopal episode at home. She was found by her granddaughter when the EMS was called. She was down for about 2-3 minutes. When she woke up she felt dizzy. She underwent cardiac catheterization this morning without any intervention. She denies any active chest pain or shortness of breath. Has been voiding. No hematuria or dysuria. She does have long-standing history of diabetes. No fever or chills. No vomiting or diarrhea. Denies use of nonsteroidals. Denies family history of renal disease. Echocardiogram revealed ejection fraction of 45-50% with mild to moderate mitral regurgitation. She was taking Lasix at home which is currently held. Blood pressure fairly stable. No significant hypotension noted. Vital signs are stable. General: The patient appeared well nourished and normally developed. HEENT: Head exam is unremarkable. Neck is without jugular venous distension. LUNGS: Breath sounds decreased. HEART: Rate and Rhythm are regular. ABDOMEN: Soft, nontender. EXTREMITITES: No edema. Past Medical History Past Medical History: Asthma, Coronary Artery Disease (CAD), Cancer, Heart Failure, COPD, Diabetes Mellitus, GI Bleed, Hyperlipidemia, Hypertension, Myocardial Infarction (UT), Osteoarthritis (OA), Pulmonary Embolus (PE), Renal Disease, Rheumatoid Arthritis (RA), Sleep Apnea/CPAP/BIPAP, Syncope, Thyroid Disorder Additional Past Medical History / Comment(s): IDDM type II poorly controlled,uses cpap bilateral peripheral neuropathy bilateral hands/feet, CKD , UTIs, legally blind bilaterally-sees minimally, thyroid cancer with surgery, goiter, hashimotos, diverticular disease, 2014 upper and lower GI bleeds with blood loss anemia, gout, R humeral fracture with surgery, occasionally bladder incont.past falls, "lt ankle broke 3 places-SX DONE. pt stated "not walking but able to stand and pivot with med boot on," Last Myocardial Infarction Date:: 2009 History of Any Multi-Drug Resistant Organisms: None Reported Past Surgical History: Adenoidectomy, Back Surgery, Cholecystectomy, Heart Cat heterization With Stent, Tonsillectomy Additional Past Surgical History / Comment(s): PCI with stent 2009, low back surgery, total R shoulder and total R knee arthroplasties, bilateral hand trigger finger surgeries, EGD, colonoscopy, L eye laser eye surgery for bleed, thyroidectomy.lt tib fib fx-plate and screws. Past Anesthesia/Blood Transfusion Reactions: No Reported Reaction Additional Past Anesthesia/Blood Transfusion Reaction / Comment(s): Pt has received blood in past without reaction. Date of Last Stent Placement:: 2009 Past Psychological History: Anxiety, Depression Smoking Status: Never smoker Past Alcohol Use History: None Reported Past Drug Use History: None Reported - Past Family History Mother Family Medical History: Asthma, CVA/TIA, Seizure Disorder Additional Family Medical History / Comment(s): epilepsy Father Family Medical History: COPD, Diabetes Mellitus Additional Family Medical History / Comment(s): many heart problems Medications and Allergies Home Medications Medication Instructions Recorded Confirmed Type Calcium Acetate [PhosLo] 667 mg PO TID@0800,1400,199911/21/17 09/08/20 History Ferrous Sulfate [Iron (65 MG 325 mg PO DAILY@1700 11/21/17 09/08/20 History Elemental)] Fluticasone Propionate [Flovent 2 puff INHALATION RT-BID 11/21/17 09/08/20 History Hfa 110 mcg] Insulin Aspart [NovoLOG Flexpen] 5 unit SQ AC-BID 11/21/17 09/08/20 History Levothyroxine Sodium [Synthroid] 175 mcg PO DAILY@0600 11/21/17 09/08/20 History Montelukast [Singulair] 10 mg PO HS 11/21/17 09/08/20 History polyethylene glycoL 3350 [Miralax] 17 gm PO DAILY 11/21/17 09/08/20 History Insulin Degludec [Tresiba] 40 units SQ HS 08/19/18 09/08/20 History Pantoprazole Sodium [Protonix] 40 mg PO DAILY 08/19/18 09/08/20 History Furosemide [Lasix] 20 mg PO DAILY@0800 01/04/19 09/08/20 History Nystatin 100,000Unit/gm Cream 1 applic TOPICAL BID 01/04/19 09/08/20 History [Mycostatin Cream] Sucralfate [Carafate] 1 gm PO TID 01/04/19 09/08/20 History allopurinoL [Zyloprim] 300 mg PO DAILY 01/04/19 09/08/20 History Aspirin 81 mg PO DAILY #30 chew 01/13/19 09/08/20 Rx Clopidogrel [Plavix] 75 mg PO DAILY #30 tab 01/13/19 09/08/20 Rx Gabapentin [Neurontin] 400 mg PO TID@0800,1400,2000 #9 cap 01/13/19 09/08/20 Rx Isosorbide Mononitrate ER [Imdur] 30 mg PO DAILY #30 tab.er.24h 01/13/19 09/08/20 Rx Nitroglycerin Sl Tabs [Nitrostat] 0.4 mg SUBLINGUAL Q5M PRN #25 tab 01/13/19 09/08/20 Rx Atorvastatin [Lipitor] 40 mg PO HS 09/08/20 09/08/20 History Carvedilol [Coreg] 25 mg PO BID 09/08/20 09/08/20 History DULoxetine HCL [Cymbalta] 60 mg PO BID 09/08/20 09/08/20 History Insulin Aspart [NovoLOG Flexpen] 6 units SQ AC-LUNCH 09/08/20 09/08/20 History calcitrioL [Calcitriol] 0.25 mcg PO WEEKLY 09/08/20 09/08/20 History Allergies Allergy/AdvReac Type Severity Reaction Status Date / Time No Known Allergies Allergy Verified 09/08/20 09:20 Physical Exam Vitals: Vital Signs Temp Pulse Pulse Resp BP BP Pulse Ox 09/09/20 12:05 59 L 16 173/70 97 09/09/20 11:50 55 L 17 159/68 09/09/20 11:35 57 L 17 173/74 09/09/20 11:25 55 L 16 178/82 09/09/20 06:53 98 F 86 16 147/86 09/09/20 02:00 54 L 18 130/64 95 09/08/20 20:00 97.7 F 56 L 18 121/57 96 09/08/20 15:00 98.2 F 56 L 14 132/62 99 09/08/20 14:31 97.6 F 55 L 16 135/71 98 Intake and Output 09/08/20 09/09/20 09/09/20 22:59 06:59 14:59 Intake Total 1060 1000 100 Balance 1060 1000 100 Intake: IV 100 Intake, IV Titration 100 1000 Amount Sodium Chloride 0.9% 1, 100 1000 000 ml In Empty Bag 1 bag @ 1 ML/KG/HR 123.377 mls /hr IV .Q8H7M [facility] Rx#: [id number] Oral 960 0 0 Other: Voiding Method Toilet Toilet Toilet # Voids 2 Results - Lab Results Most recent lab results Calcium 8.7 mg/dL (8.4-10.2) 09/09/20 07:50 09/09/20 07:50 09/09/20 07:50 Assessment and Plan Plan: Assessment: 1. Acute kidney injury mostly pre-renal versus progression of underlying chronic kidney disease. She did receive IV contrast this morning for cardiac catheterization. Creatinine 2.43 as of this morning. 2. Syncopal episode with history of coronary artery disease status post prior stenting. Underwent cardiac catheterization this morning without any intervention. 3. Chronic systolic CHF with ejection fraction of 40-45% with mild to moderate mitral regurgitation. 4. Chronic kidney disease mineral bone disease maintained on PhosLo and calcitriol. 4. Insulin-dependent diabetes mellitus. 5. Hypertension with chronic kidney disease. BP high. 6. Chronic kidney disease stage IV with baseline creatinine in the range of 1.62 in December 2018. Etiology is diabetic kidney disease. Plan: Maintain normal saline for another 10 hours. Then Hep-Lock IV fluids. Can likely resume oral Lasix tomorrow. Avoid nephrotoxins. Add amlodipine 5 mg once daily. Continue to monitor renal function and urine output. Discussed with the patient the potential worsening of renal function over the next 2-3 days from the IV contrast. She understands. Thank you for the consultation. I will continue to follow the patient with you during her hospital stay.
[2020-09-09] MEDS: carvediloL 12.5 MG TAB PO SCH ×2 (14:08→19:05)
[2020-09-09] MEDS: PANTOPRAZOLE 40 MG TABLET PO SCH (14:08)
[2020-09-09] MEDS: allopurinoL 300 MG TAB PO SCH (14:08)
[2020-09-09] MEDS: FERROUS SULFATE 325 MG TAB PO SCH (14:08)
[2020-09-09] MEDS: DULoxetine HCL 30 MG CAPSULE.DR PO SCH ×2 (14:08→18:30)
[2020-09-09] MEDS: LACTULOSE 20 GM/30 ML CUP PO SCH (14:09)
[2020-09-09] MEDS: ISOSORBIDE MONONITRATE ER 30 MG TAB.ER.24H PO SCH (14:09)
[2020-09-09] MEDS: amLODIPine 5 MG TAB PO SCH (14:10)
[2020-09-09 14:16] LABS: Glucose,Whole Blood 178 mg/dL (75-99)
[2020-09-09 17:03] LABS: Glucose,Whole Blood 197 mg/dL (75-99)
[2020-09-09 20:15] LABS: Glucose,Whole Blood 178 mg/dL (75-99)
[2020-09-09] MEDS: SODIUM CHLORIDE 0.9% 1,000 ML in EMPTY BAG 1 BAG IV SCH (21:13)
[2020-09-09 21:29] LABS: Glucose,Whole Blood 152 mg/dL (75-99)
[2020-09-09] MEDS: MONTELUKAST 10 MG TAB PO SCH (21:36)
[2020-09-09] MEDS: ATORVASTATIN 40 MG TAB PO SCH (21:36)
[2020-09-09] MEDS: traMADol 50 MG TAB PO PRN (21:38)
[2020-09-10] MEDS: SODIUM CHLORIDE 0.9% 1,000 ML IV SCH ×4 (00:50→18:18)
[2020-09-10 06:28] LABS: Glucose,Whole Blood 132 mg/dL (75-99)
[2020-09-10] MEDS: SUCRALFATE 1 GM TAB PO SCH ×4 (06:48→20:38)
[2020-09-10] MEDS: LEVOTHYROXINE 88 MCG TAB PO SCH (06:48)
[2020-09-10] MEDS: INSULIN ASPART (NovoLOG) 100 UNIT/ML VIAL SQ SCH ×7 (06:48→20:34)
[2020-09-10] MEDS: FLUTICASONE 110 MCG INHALER INHALATION SCH ×2 (07:49→20:34)
[2020-09-10 08:07] LABS: Basophils % (A) 0 %; Eosinophils # (A) 0.3 k/uL (0-0.7); Eosinophils % (A) 5 %; HCT 33.9 % (34.0-46.0); HGB 11.4 gm/dL (11.4-16.0); Lymphocytes # (A) 1.7 k/uL (1.0-4.8); Lymphocytes % (A) 33 %; MCHC 33.5 g/dL (31.0-37.0); MCV 95.5 fL (80.0-100.0); Mean Platelet Volume 8.3; Monocytes # (A) 0.4 k/uL (0-1.0); Monocytes % (A) 7 %; Neutrophils # (A) 2.7 k/uL (1.3-7.7); Neutrophils % (A) 53 %; Platelet Count 118 k/uL (150-450); RBC 3.55 m/uL (3.80-5.40); RDW 13.5 % (11.5-15.5); WBC 5.1 k/uL (3.8-10.6)
[2020-09-10 08:23] LABS: Calcium 8.5 mg/dL (8.4-10.2); Magnesium 2.1 mg/dL (1.6-2.3); Potassium 4.7 mmol/L (3.5-5.1)
[2020-09-10] MEDS: CLOPIDOGREL 75 MG TAB PO SCH (08:41)
[2020-09-10] MEDS: CALCIUM ACETATE 667 MG TAB PO SCH ×3 (08:41→20:38)
[2020-09-10] MEDS: PANTOPRAZOLE 40 MG TABLET PO SCH (08:41)
[2020-09-10] MEDS: carvediloL 12.5 MG TAB PO SCH ×2 (08:41→17:07)
[2020-09-10] MEDS: allopurinoL 300 MG TAB PO SCH (08:41)
[2020-09-10] MEDS: SENNOSIDES 8.6 MG TAB PO SCH ×2 (08:41→17:07)
[2020-09-10] MEDS: GABAPENTIN 400 MG CAP PO SCH ×3 (08:41→20:38)
[2020-09-10] MEDS: DULoxetine HCL 30 MG CAPSULE.DR PO SCH ×2 (08:41→17:07)
[2020-09-10] MEDS: SODIUM BICARBONATE TAB 650 MG TAB PO SCH ×3 (08:41→20:38)
[2020-09-10] MEDS: ASPIRIN 81 MG PO SCH (08:41)
[2020-09-10] MEDS: ISOSORBIDE MONONITRATE ER 30 MG TAB.ER.24H PO SCH (08:41)
[2020-09-10] MEDS: amLODIPine 5 MG TAB PO SCH (08:41)
[2020-09-10] MEDS: LACTULOSE 20 GM/30 ML CUP PO SCH (08:42)
[2020-09-10 11:28] LABS: Appearance,Urine Clear (Clear); Bacteria,Urine Rare /hpf; Bilirubin,Urine Negative (Negative); Blood,Urine Negative (Negative); Color,Urine Light Yellow; Glucose,Urine (UA) Negative (Negative); Ketones,Urine Negative (Negative); Leukocyte Esterase,Urine Small (Negative); Nitrite,Urine Negative (Negative); Protein,Urine Trace (Negative); RBC,Urine <1 /hpf (0-5); Specific Gravity,Urine 1.006 (1.001-1.035); Squamous Epithelial Cell,Urine 1 /hpf (0-4); Urobilinogen,Urine <2.0 mg/dL (<2.0); WBC,Urine 10 /hpf (0-5)
[2020-09-10 11:45] LABS: Glucose,Whole Blood 174 mg/dL (75-99)
--- NOTE | 2020-09-10 14:22 | PN ---
PROGRESS NOTE Patient is seen for followup for chronic kidney disease and acute kidney injury. The patient is complaining of burning sensation while she passes urine. Her UA did not show significant pyuria. WBCs were 10. No fever. Currently, patient is tolerating oral intake. She is maintained on IV fluids. PHYSICAL EXAMINATION: On examination today, blood pressure was 121/43, heart rate 61 per minute, she is afebrile. Examination of the heart S1, S2. Examination of the lungs, bilateral breath sounds are heard. Abdomen is soft, nontender, obese. Examination of lower extremities shows no significant edema. PIPELINES SUPERINTENDENT exam grossly intact. LAB: Show sodium 136, potassium 4.7, chloride 104, BUN 44, creatinine 2.36, hemoglobin 11.4 g/dL. UA shows WBCs 10, protein trace. ASSESSMENT: 1. Chronic kidney disease, NKF stage IV secondary to diabetic kidney disease, baseline creatinine around 1.6, most recently around 2. Currently it is slightly elevated with an element of acute kidney injury. 2. Acute kidney injury, possibly pre renal with pt being status post cardiac catheterization yesterday. Serum creatinine will likely peak over the next couple of days. The patient has been hydrated. 3. Syncopal episode with coronary artery disease status post coronary artery stenting previously, status post recent cardiac catheterization yesterday without need for intervention. 4. Chronic systolic congestive heart failure, ejection fraction 40-45% with moderate mitral regurgitation. 5. Chronic kidney disease mineral bone disorder. 6. Hypertension with chronic kidney disease. 7. Anemia of chronic disease, maintained on Aranesp. PLAN: Repeat labs in a.m. I would hold off on antibiotics for now as UA is unremarkable. We can send urine for culture, although I do not believe she has an underlying urinary tract infection. Her previous UA on September 07 did show significant WBCs more than 182. I do not see antibiotics on her current med list. PLAN: Repeat labs in a.m. MMODL / IJN: [id number] / DAMON
[2020-09-10] MEDS: traMADol 50 MG TAB PO PRN (14:47)
[2020-09-10] MEDS: polyethylene glycoL 3350 17 GM POWD.PACK PO SCH (14:51)
--- NOTE | 2020-09-10 15:00 | PN ---
PROGRESS NOTE This is a 65-year-old lady with history of type 2 diabetes and CKD. She underwent a cardiac cath yesterday, which revealed that the RCA and LAD were both patent at the sites of stenting. Circumflex was a chronic occlusion unchanged. Advised medical therapy. She was hydrated before and after the procedure and creatinine is actually better at 2.36. She actually came in with an episode of what seems to be a syncope but questionable. I suggested event monitor that was placed yesterday. There was some technical issue with event monitor, but monitoring in the hospital so far did not reveal any tachy or jefe arrhythmias. She can be discharged today. Her right groin is clean and dry. Vital signs stable. No JVD. S1 and S2 heard normally. There is a short systolic murmur. Lungs are clear. Abdomen; lower exam unchanged. Right groin is clean and dry. Plan is to continue current medications and discharge her. I will see her in the office in 4-5 weeks, but we will call and check in with regards to her event monitor and to how it is functioning by phone call tomorrow. I took the necessary phone numbers. MARYELLEN / SUSHILN: [id number] /
--- NOTE | 2020-09-10 16:24 | P.PN ---
Subjective Progress Note Date: 09/10/20 Principal diagnosis: Acute syncope Unstable angina 65-year-old female past medical history significant for coronary artery disease s/p PCI RCA and LAD most recently the LAD was done in 2019, hypertension, dyslipidemia, diabetes mellitus, COPD and morbid obesity. She states yesterday evening she was up in the kitchen getting ready to make dinner when her granddaughter asked her a question. She turned around to answer her and she started feeling acutely dizzy and lightheaded. She was then diaphoretic and the next thing she remembers is waking up on the floor. EMS was called. On arrival her blood sugar was checked and was in the 300 range. On arrival to the ER she continued to feel weak, tired and developed some nausea. She denies feeling chest pain, shortness of breath or palpitations surrounding the event. On further discussion she recalls feeling a burning sensation in her chest in the mid-sternal region earlier that day that was briefly relieved with tums. She also describes that over the last month she has had this same burning sensation at times. EKG reveals sinus bradycardia, first degree AV block, heart rate 57, left axis deviation and poor R wave progression. Chest xray no acute cardiopulmonary process. Laboratory reviewed, WBC 6.8, hgb 11.5, plt 120, sodium 137, potassium 4.8, creatinine 2.4 up from 2.12 on admission and troponin negative x2. Current cardiac medications include imdur 30 mg daily, aspirin 81 mg daily, plavix 75 mg daily, lasix 20 mg daily, coreg 25 mg BID abd atorvastatin 40 mg daily. Objective - Vital Signs Vital signs: Vital Signs Temp 97.6 F 09/10/20 08:00 Pulse 61 09/10/20 08:00 Resp 20 09/10/20 08:00 BP 121/43 09/10/20 08:00 Pulse Ox 96 09/10/20 08:00 Intake & Output 09/09/20 09/10/20 09/10/20 18:59 06:59 18:59 Intake Total 980 480 Balance 980 480 Intake: IV 100 Oral 880 480 Other: Voiding Method Toilet Toilet # Voids 1 - Exam Blood pressure 157/61 heart rate 54 afebrile and maintaining oxygen saturation on room air. CONSTITUTIONAL: No apparent distress. Obese. HEENT: Head is normocephalic. Pupils are equal, round. Sclerae anicteric. Mucous membranes of the mouth are moist. No JVD. No carotid bruit. CHEST EXAMINATION: Lungs are clear to auscultation. No chest wall tenderness is noted on palpation or with deep breathing. Diminished bilaterally. HEART EXAMINATION: Regular rate and rhythm. S1, S2 heard. Systolic ejection murmur at the base, no gallops or rub. ABDOMEN: Soft, nontender. Positive bowel sounds. EXTREMITIES: 2+ peripheral pulses, no lower extremity edema and no calf tenderness. NEUROLOGIC EXAMINATION: Patient is awake, alert and oriented x3. - Labs CBC & Chem 7: 09/10/20 07:33 09/10/20 07:33 Labs: Abnormal Lab Results - Last 24 Hours (Table) 09/09/20 09/09/20 09/09/20 Range/Units 14:14 17:01 20:13 RBC (3.80-5.40) m/uL Hct (34.0-46.0) % Plt Count (150-450) k/uL Sodium (137-145) mmol/L BUN (7-17) mg/dL Creatinine (0.52-1.04) mg/dL Glucose (74-99) mg/dL POC Glucose (mg/dL) 178 H 197 H 178 H (75-99) mg/dL 09/09/20 09/10/20 09/10/20 Range/Units 21:27 06:13 07:33 RBC 3.55 L (3.80-5.40) m/uL Hct 33.9 L (34.0-46.0) % Plt Count 118 L (150-450) k/uL Sodium (137-145) mmol/L BUN (7-17) mg/dL Creatinine (0.52-1.04) mg/dL Glucose (74-99) mg/dL POC Glucose (mg/dL) 152 H 132 H (75-99) mg/dL 09/10/20 Range/Units 07:33 RBC (3.80-5.40) m/uL Hct (34.0-46.0) % Plt Count (150-450) k/uL Sodium 136 L (137-145) mmol/L BUN 44 H (7-17) mg/dL Creatinine 2.36 H (0.52-1.04) mg/dL Glucose 147 H (74-99) mg/dL POC Glucose (mg/dL) (75-99) mg/dL Assessment and Plan Assessment: 1. Acute Syncope - EKGs monitored and reveals sinus bradycardia with first-degree AV block with left axis deviation and poor R-wave progression; telemetry tracings indicates sinus bradycardia with frequent PVCs - Cardiology on board and recommending cardiac catheterization 2. Unstable angina/coronary artery disease - Cardiology concerned about symptoms being concerning for unstable angina with possible arrhythmia causing syncopal episode; patient is to proceed with heart catheterization - Echocardiogram is ordered and results are pending - Patient remains on aspirin, statins, Plavix, Imdur 30 mg daily and beta blockers 3. Chronic kidney disease; B UN/creatinine at 44/2.43 upon admission; patient has received slow cautious IV fluid hydration; B UN/creatinine at 44/2.36 this morning; we will continue to monitor strict JAD's, daily weights, renal function and electrolytes; continue to avoid nephrotoxic agents 4. Hypertension; stable on amlodipine 5 mg daily; Imdur 30 mg daily; Coreg 12.5 mg twice a day 5. Hyperlipidemia; Lipitor 40 mg by mouth daily at bedtime 6. Diabetes mellitus/neuropathy; monitor Accu-Cheks before meals and at bedtime with insulin sliding scale; patient remains on Humalog at 7 units every before meals - Neurontin 400 mg by mouth 3 times a day 7. COPD; not in exacerbation; continue with home inhaler therapy; Singulair 10 mg by mouth daily at bedtime 8. Hypothyroidism; levothyroxin on 75 MCG daily DVT prophylaxis; SCDs CODE STATUS; full code
[2020-09-10 16:51] LABS: Glucose,Whole Blood 108 mg/dL (75-99)
[2020-09-10] MEDS: FERROUS SULFATE 325 MG TAB PO SCH (17:07)
[2020-09-10 20:19] LABS: Glucose,Whole Blood 127 mg/dL (75-99)
[2020-09-10] MEDS: ATORVASTATIN 40 MG TAB PO SCH (20:38)
[2020-09-10] MEDS: MONTELUKAST 10 MG TAB PO SCH (20:38)
[2020-09-11] MEDS: SODIUM CHLORIDE 0.9% 1,000 ML IV SCH ×3 (01:47→14:44)
[2020-09-11] MEDS: SUCRALFATE 1 GM TAB PO SCH ×2 (05:45→12:10)
[2020-09-11] MEDS: LEVOTHYROXINE 88 MCG TAB PO SCH (05:45)
[2020-09-11 06:08] LABS: Glucose,Whole Blood 193 mg/dL (75-99)
[2020-09-11] MEDS: INSULIN ASPART (NovoLOG) 100 UNIT/ML VIAL SQ SCH ×4 (06:48→12:11)
[2020-09-11 08:19] LABS: Calcium 8.9 mg/dL (8.4-10.2); Magnesium 2.3 mg/dL (1.6-2.3); Potassium 4.8 mmol/L (3.5-5.1)
[2020-09-11] MEDS: carvediloL 12.5 MG TAB PO SCH (08:24)
[2020-09-11] MEDS: CALCIUM ACETATE 667 MG TAB PO SCH ×2 (08:24→12:11)
[2020-09-11] MEDS: SODIUM BICARBONATE TAB 650 MG TAB PO SCH (08:24)
[2020-09-11] MEDS: PANTOPRAZOLE 40 MG TABLET PO SCH (08:24)
[2020-09-11] MEDS: ASPIRIN 81 MG PO SCH (08:24)
[2020-09-11] MEDS: ISOSORBIDE MONONITRATE ER 30 MG TAB.ER.24H PO SCH (08:24)
[2020-09-11] MEDS: amLODIPine 5 MG TAB PO SCH (08:24)
[2020-09-11] MEDS: GABAPENTIN 400 MG CAP PO SCH ×2 (08:25→14:43)
[2020-09-11] MEDS: CLOPIDOGREL 75 MG TAB PO SCH (08:25)
[2020-09-11] MEDS: LACTULOSE 20 GM/30 ML CUP PO SCH (08:25)
[2020-09-11] MEDS: DULoxetine HCL 30 MG CAPSULE.DR PO SCH (08:25)
[2020-09-11] MEDS: SENNOSIDES 8.6 MG TAB PO SCH (08:25)
[2020-09-11] MEDS: allopurinoL 300 MG TAB PO SCH (08:25)
[2020-09-11] MEDS: FLUTICASONE 110 MCG INHALER INHALATION SCH (08:31)
[2020-09-11 09:27] VITALS: RESP 20
[2020-09-11 11:22] VITALS: BP 174/66; PULSE 61; TEMP 97.9
[2020-09-11 11:40] LABS: Glucose,Whole Blood 117 mg/dL (75-99)
[2020-09-11] MEDS: polyethylene glycoL 3350 17 GM POWD.PACK PO SCH (12:11)
--- NOTE | 2020-09-11 12:52 | P.PN ---
Subjective Progress Note Date: 09/11/20 HISTORY OF PRESENT ILLNESS: Patient is status post cardiac cath revealing patent stents of the RCA and LAD. Chronic occlusion of circumflex unchanged. Medical management was recommended. Patient examined this morning at the bedside. She denies chest pain or pressure. She denies shortness of breath. Creatinine is stable at 2.40. PHYSICAL EXAM: VITAL SIGNS: Reviewed. GENERAL: Well-developed in no acute distress. NECK: Supple. No JVD or thyromegaly LUNGS: Respirations even and unlabored. Lungs essentially clear to auscultation bilaterally. HEART: Regular rate and rhythm. S1 and S2 heard. Systolic murmur noted. EXTREMITIES: Normal range of motion. No clubbing or cyanosis. Peripheral pulses intact. No lower extremity edema ASSESSMENT: Syncope Unstable angina Chronic kidney disease Coronary artery disease Hypertension Dyslipidemia Diabetes mellitus COPD Sleep apnea Morbid obesity, BMI 46 PLAN: Continue current cardiac medications Patient is stable for discharge home today. Patient's event monitor is not functioning properly. Will discuss with appropriate department tomorrow and have them contact the patient tomorrow via phone. Nurse practitioner note has been reviewed by physician. Signing provider agrees with the documented findings, assessment, and plan of care. Objective - Vital Signs Vital signs: Vital Signs Temp 97.9 F 09/11/20 12:01 Pulse 61 09/11/20 12:01 Resp 20 09/11/20 12:01 BP 174/66 09/11/20 12:01 Pulse Ox 97 09/11/20 12:01 Intake & Output 09/10/20 09/11/20 09/11/20 18:59 06:59 18:59 Intake Total 1200 462 Output Total 350 Balance 1200 112 Weight 124.3 kg Intake: Oral 1200 462 Output: Urine 350 Other: Voiding Method Toilet Toilet Toilet # Voids 2 3 - Labs CBC & Chem 7: 09/10/20 07:33 09/11/20 07:09 Labs: Abnormal Lab Results - Last 24 Hours (Table) 09/10/20 09/10/20 09/11/20 Range/Units 16:47 20:17 06:07 BUN (7-17) mg/dL Creatinine (0.52-1.04) mg/dL Glucose (74-99) mg/dL POC Glucose (mg/dL) 108 H 127 H 193 H (75-99) mg/dL 09/11/20 09/11/20 Range/Units 07:09 11:38 BUN 49 H (7-17) mg/dL Creatinine 2.40 H (0.52-1.04) mg/dL Glucose 186 H (74-99) mg/dL POC Glucose (mg/dL) 117 H (75-99) mg/dL Microbiology - Last 24 Hours (Table) 09/10/20 10:46 Urine Culture - Preliminary Urine,Clean Catch
--- NOTE | 2020-09-11 15:19 | PN ---
PROGRESS NOTE Patient is seen for followup for chronic kidney disease. There is an element of mild acute kidney injury as serum creatinine has been slightly higher than baseline, mostly staying at about 2.3-2.4 from baseline of about 1.9-2 mg/dL as of 2019. Patient currently feels well. She denies any significant complaints. She wants to go home. PHYSICAL EXAMINATION: On examination today, blood pressure was elevated 174/66, heart rate 61 per minute, she is afebrile. Examination of the heart S1, S2. Examination of the lungs, bilateral breath sounds are heard. Abdomen is soft, obese, nontender. Examination of lower extremities shows no evidence of edema. UNDER[employer] exam grossly intact. LAB: Show sodium 138, potassium 4.8, chloride 104, BUN 49, serum creatinine 2.4 mg/dL. ASSESSMENT: 1. Chronic kidney disease NKF stage IV secondary to diabetic kidney disease, baseline creatinine around 1.6-1.8 mg/dL, most recently around 2. 2. Mild acute kidney injury, although creatinine is fairly stable. The patient did have a cardiac catheterization about two days ago. 3. Chronic systolic congestive heart failure, ejection fraction 40-45% with moderate mitral regurgitation. 4. Chronic kidney disease mineral bone disorder. 5. Hypertension with chronic kidney disease. 6. Syncopal episode status post recent cardiac catheterization without need for intervention. 7. Coronary artery disease with previous coronary artery stenting. PLAN: Patient can be discharged home and she will follow up as outpatient in about two weeks. Continue to avoid NSAIDs post discharge. MMODL / IJN: [id number] /
[2020-09-14] MEDS ORDERED: DARBEPOETIN ALFA 60 MCG/0.3 ML SYRINGE SQ SCH (09:00)
== END 2020-09-11 14:49 | disposition home or self-care (01) | DRG 287 ==
LOC: EC 19:10 → 6NMEDSUR 20:55 → 1SOBS 09-08 14:31 → OBSVTOIN 09-08 19:40 → 3SCARD 09-09 02:32
PROVIDERS: ADMIT Family Medicine; ATTEND Family Medicine
PROC: B2111ZZ Fluoroscopy of Multiple Coronary Arteries using Low Osmolar Contrast (ICD-10-PCS; 2020-09-09)
PROC: 4A023N7 Measurement of Cardiac Sampling and Pressure, Left Heart, Percutaneous Approach (ICD-10-PCS; principal; 2020-09-09 09:00)
DX: I25.110 Atherosclerotic heart disease of native coronary artery with unstable angina pectoris (principal); Z68.42 Body mass index [BMI] 45.0-49.9, adult; N17.9 Acute kidney failure, unspecified; N18.4 Chronic kidney disease, stage 4 (severe); I13.0 Hypertensive heart and chronic kidney disease with heart failure and stage 1 through stage 4 chronic kidney disease, or unspecified chronic kidney disease; I50.22 Chronic systolic (congestive) heart failure; R55 Syncope and collapse; I25.2 Old myocardial infarction; J44.9 Chronic obstructive pulmonary disease, unspecified; I25.10 Atherosclerotic heart disease of native coronary artery without angina pectoris; Z20.822 Contact with and (suspected) exposure to COVID-19; E78.5 Hyperlipidemia, unspecified; M19.90 Unspecified osteoarthritis, unspecified site; M06.9 Rheumatoid arthritis, unspecified; E11.22 Type 2 diabetes mellitus with diabetic chronic kidney disease; E11.42 Type 2 diabetes mellitus with diabetic polyneuropathy; Z83.3 Family history of diabetes mellitus; Z82.5 Family history of asthma and other chronic lower respiratory diseases; Z82.0 Family history of epilepsy and other diseases of the nervous system; Z82.3 Family history of stroke; Z79.890 Hormone replacement therapy; Z79.4 Long term (current) use of insulin; Z79.51 Long term (current) use of inhaled steroids; H54.8 Legal blindness, as defined in USA; E66.01 Morbid (severe) obesity due to excess calories; Z79.82 Long term (current) use of aspirin; Z95.5 Presence of coronary angioplasty implant and graft; D63.8 Anemia in other chronic diseases classified elsewhere; M89.9 Disorder of bone, unspecified; I44.0 Atrioventricular block, first degree; F32.9 Major depressive disorder, single episode, unspecified; F41.9 Anxiety disorder, unspecified; E89.0 Postprocedural hypothyroidism; G47.30 Sleep apnea, unspecified; I25.82 Chronic total occlusion of coronary artery; I27.20 Pulmonary hypertension, unspecified; I34.0 Nonrheumatic mitral (valve) insufficiency; M89.8X9 Other specified disorders of bone, unspecified site; Z79.02 Long term (current) use of antithrombotics/antiplatelets; Z85.850 Personal history of malignant neoplasm of thyroid; Z86.711 Personal history of pulmonary embolism
CPT/HCPCS: 36415; 71046; 80048; 80053; 81001; 83605; 83735; 84484; 85025; 85027; 85610; 85730; 87086; 87635; 93005; 93270; 93306; 93458; 93880; 94640; 96361; 96374; 99285

== ENCOUNTER → 2020-11-30 | Outpatient (CLI) | payer MEDICARE ==
--- NOTE | 2020-11-30 14:33 | US ---
EXAMINATION TYPE: US kidneys/renal and bladder DATE OF EXAM: 11/30/2020 COMPARISON: CT 08/19/2018 CLINICAL HISTORY: N18.4 ckd diease stage 4. EXAM MEASUREMENTS: Right Kidney: 9.1 x 4.4 x 4.2 cm Left Kidney: 9.5 x 5.4 x 5.2 cm Right Kidney: Echogenic foci visualized with shadowing, largest measuring 0.9 cm Left Kidney: Echogenic foci visualized with shadowing, largest measuring 0.5 cm Bladder: wnl Bilateral Jets seen: no Exam suboptimal due to patient's large body habitus. Cortical thinning bilaterally. Central echogenic foci favor vascular calcifications. No hydronephrosis seen bilaterally. Urinary bladder satisfactori ly distended. IMPRESSION: Suboptimal study without hydronephrosis seen bilaterally.
== END | disposition home or self-care (01) ==
LOC: RADUSWWP 12:34
PROVIDERS: ATTEND Internal Medicine Nephrology
DX: N18.4 Chronic kidney disease, stage 4 (severe) (principal)
CPT/HCPCS: 76770

== ENCOUNTER 2020-12-09 17:21 | Inpatient (IN) | payer MEDICARE ==
[2020-12-09] MEDS ORDERED: FUROSEMIDE 10 MG/ML 4 ML VIAL IV STA (17:53)
--- NOTE | 2020-12-09 17:58 | ED ---
General Adult HPI - General Chief complaint: Shortness of Breath Stated complaint: LAZARA, leg swelling & weight gain Time Seen by Provider: 12/09/20 17:45 Source: patient, RN notes reviewed Mode of arrival: ambulatory Limitations: no limitations - History of Present Illness Initial comments: Patient is a pleasant [age]-year-old female presenting to the emergency Department with complaints of fatigue and leg edema. Symptoms started around 3 days ago. Patient has gained around 7 pounds. Patient does have orthopnea and exertional dyspnea. Patient has had some minimal episodes of chest discomfort. No discomfort at this time. No fever. - Related Data Home Medications Medication Instructions Recorded Confirmed Calcium Acetate [PhosLo] 667 mg PO TID@0800,1400,199911/21/17 09/08/20 Ferrous Sulfate [Iron (65 MG 325 mg PO DAILY@1700 11/21/17 09/08/20 Elemental)] Fluticasone Propionate [Flovent 2 puff INHALATION RT-BID 11/21/17 09/08/20 Hfa 110 mcg] Insulin Aspart [NovoLOG Flexpen] 5 unit SQ AC-BID 11/21/17 09/08/20 Levothyroxine Sodium [Synthroid] 175 mcg PO DAILY@0600 11/21/17 09/08/20 Montelukast [Singulair] 10 mg PO HS 11/21/17 09/08/20 polyethylene glycoL 3350 [Miralax] 17 gm PO DAILY 11/21/17 09/08/20 Insulin Degludec [Tresiba] 40 units SQ HS 08/19/18 09/08/20 Pantoprazole Sodium [Protonix] 40 mg PO DAILY 08/19/18 09/08/20 Furosemide [Lasix] 20 mg PO DAILY@0800 01/04/19 09/08/20 Nystatin 100,000Unit/gm Cream 1 applic TOPICAL BID 01/04/19 09/08/20 [Mycostatin Cream] Sucralfate [Carafate] 1 gm PO TID 01/04/19 09/08/20 allopurinoL [Zyloprim] 300 mg PO DAILY 01/04/19 09/08/20 Atorvastatin [Lipitor] 40 mg PO HS 09/08/20 09/08/20 DULoxetine HCL [Cymbalta] 60 mg PO BID 09/08/20 09/08/20 Insulin Aspart [NovoLOG Flexpen] 6 units SQ AC-LUNCH 09/08/20 09/08/20 calcitrioL [Calcitriol] 0.25 mcg PO WEEKLY 09/08/20 09/08/20 Previous Rx's Medication Instructions Recorded Aspirin 81 mg PO DAILY #30 chew 01/13/19 Clopidogrel [Plavix] 75 mg PO DAILY #30 tab 01/13/19 Gabapentin [Neurontin] 400 mg PO TID@0800,1400,1999 #9 cap 01/13/19 Isosorbide Mononitrate ER [Imdur] 30 mg PO DAILY #30 tab.er.24h 01/13/19 Nitroglycerin Sl Tabs [Nitrostat] 0.4 mg SUBLINGUAL Q5M PRN #25 tab 01/13/19 Cephalexin [Keflex] 500 mg PO Q8HR 1 Days #20 cap 09/11/20 Sennosides [Senokot] 8.6 mg PO BID@0800,1700 #60 tab 09/11/20 Sodium Bicarbonate Tab 325 mg PO TID@0800,1400,1999 #90 09/11/20 tab amLODIPine [Norvasc] 5 mg PO DAILY #30 tab 09/11/20 carvediloL [Coreg*] 12.5 mg PO BID@0800,1700 #60 tab 09/11/20 Allergies Allergy/AdvReac Type Severity Reaction Status Date / Time No Known Allergies Allergy Verified 12/09/20 17:31 Review of Systems ROS Statement: Those systems with pertinent positive or pertinent negative responses have been documented in the HPI. ROS Other: All systems not noted in ROS Statement are negative. Constitutional: Denies: fever Eyes: Denies: eye pain ENT: Denies: ear pain Respiratory: Reports: dyspnea Cardiovascular: Reports: chest pain, dyspnea on exertion, orthopnea, edema Endocrine: Reports: fatigue Gastrointestinal: Denies: abdominal pain Genitourinary: Denies: dysuria Musculoskeletal: Denies: back pain Skin: Denies: rash Neurological: Denies: weakness Past Medical History Past Medical History: Asthma, Coronary Artery Disease (CAD), Cancer, Heart Failure, COPD, Diabetes Mellitus, GI Bleed, Hyperlipidemia, Hypertension, Myocardial Infarction (AK), Osteoarthritis (OA), Pulmonary Embolus (PE), Renal Disease, Rheumatoid Arthritis (RA), Sleep Apnea/CPAP/BIPAP, Syncope, Thyroid Disorder Additional Past Medical History / Comment(s): IDDM type II poorly controlled,uses cpap bilateral peripheral neuropathy bilateral hands/feet, CKD , UTIs, legally blind bilaterally-sees minimally, thyroid cancer with surgery, goiter, hashimotos, diverticular disease, 2013 upper and lower GI bleeds with blood loss anemia, gout, R humeral fracture with surgery, occasionally bladder incont.past falls, "lt ankle broke 3 places-SX DONE. pt stated "not walking but able to stand and pivot with med boot on," Last Myocardial Infarction Date:: 2009 History of Any Multi-Drug Resistant Organisms: None Reported Past Surgical History: Adenoidectomy, Back Surgery, Cholecystectomy, Heart Catheterization With Stent, Tonsillectomy Additional Past Surgical History / Comment(s): PCI with stent 2009, low back surgery, total R shoulder and total R knee arthroplasties, bilateral hand trigger finger surgeries, EGD, colonoscopy, L eye laser eye surgery for bleed, thyroidectomy.lt tib fib fx-plate and screws. Past Anesthesia/Blood Transfusion Reactions: No Reported Reaction Additional Past Anesthesia/Blood Transfusion Reaction / Comment(s): Pt has received blood in past without reaction. Date of Last Stent Placement:: 2009 Past Psychological History: Anxiety, Depression Smoking Status: Never smoker Past Alcohol Use History: None Reported Past Drug Use History: None Reported - Past Family History Mother Family Medical History: Asthma, CVA/TIA, Seizure Disorder Additional Family Medical History / Comment(s): epilepsy Father Family Medical History: COPD, Diabetes Mellitus Additional Family Medical History / Comment(s): many heart problems General Exam Limitations: no limitations General appearance: alert, in no apparent distress Head exam: Present: normocephalic Eye exam: Present: normal appearance Respiratory exam: Present: normal lung sounds bilaterally Cardiovascular Exam: Present: regular rate, normal rhythm GI/Abdominal exam: Present: soft. Absent: tenderness Extremities exam: Present: pedal edema Neurological exam: Present: alert Psychiatric exam: Present: normal affect, normal mood Skin exam: Present: normal color Course Vital Signs 12/09/20 12/09/20 17:29 18:59 Temperature 98.1 F Pulse Rate 68 64 Respiratory 18 20 Rate Blood Pressure 163/69 116/48 O2 Sat by Pulse 98 95 Oximetry EKG Findings - EKG Comments: EKG Findings:: EKG shows sinus rhythm with a rate of 66. QRS 102. QT 416. QTC 436. Left axis. Low QRS voltage. Septal Q waves. Inferior Q waves. No acute ST change. Appearance of pacer spikes. Medical Decision Making - Medical Decision Making Patient reevaluated and resting comfortably in bed. Patient and family updated on results and plan. Case was discussed with Dr. Joyner, covering for Dr. Baca, who will admit. - Lab Data Result diagrams: 12/09/20 17:58 12/09/20 17:58 Lab Results 12/09/20 12/09/20 12/09/20 Range/Units 17:58 17:58 17:58 WBC 8.0 (3.8-10.6) k/uL RBC 3.20 L (3.80-5.40) m/uL Hgb 10.3 L (11.4-16.0) gm/dL Hct 30.2 L (34.0-46.0) % MCV 94.2 (80.0-100.0) fL MCH 32.2 (25.0-35.0) pg MCHC 34.1 (31.0-37.0) g/dL RDW 15.2 (11.5-15.5) % Plt Count 161 (150-450) k/uL MPV 8.4 Neutrophils % 74 % Lymphocytes % 20 % Monocytes % 4 % Eosinophils % 1 % Basophils % 0 % Neutrophils # 5.9 (1.3-7.7) k/uL Lymphocytes # 1.6 (1.0-4.8) k/uL Monocytes # 0.4 (0-1.0) k/uL Eosinophils # 0.1 (0-0.7) k/uL Basophils # 0.0 (0-0.2) k/uL PT 9.7 (9.0-12.0) sec INR 0.9 (<1.2) APTT 22.1 (22.0-30.0) sec Sodium 140 (137-145) mmol/L Potassium 4.4 (3.5-5.1) mmol/L Chloride 102 (98-107) mmol/L Carbon Dioxide 30 (22-30) mmol/L Anion Gap 8 mmol/L BUN 99 H (7-17) mg/dL Creatinine 3.45 H (0.52-1.04) mg/dL Est GFR (CKD-EPI)AfAm 15 (>60 ml/min/1.73 sqM) Est GFR (CKD-EPI)NonAf 13 (>60 ml/min/1.73 sqM) Glucose 247 H (74-99) mg/dL Plasma Lactic Acid Kamron (0.7-2.0) mmol/L Calcium 9.4 (8.4-10.2) mg/dL Total Bilirubin 0.3 (0.2-1.3) mg/dL AST 39 H (14-36) U/L ALT 26 (4-34) U/L Alkaline Phosphatase 83 (38-126) U/L Troponin I (0.000-0.034) ng/mL NT-Pro-B Natriuret Pep pg/mL Total Protein 6.1 L (6.3-8.2) g/dL Albumin 3.2 L (3.5-5.0) g/dL 12/09/20 12/09/20 12/09/20 Range/Units 17:58 17:58 17:58 WBC (3.8-10.6) k/uL RBC (3.80-5.40) m/uL Hgb (11.4-16.0) gm/dL Hct (34.0-46.0) % MCV (80.0-100.0) fL MCH (25.0-35.0) pg MCHC (31.0-37.0) g/dL RDW (11.5-15.5) % Plt Count (150-450) k/uL MPV Neutrophils % % Lymphocytes % % Monocytes % % Eosinophils % % Basophils % % Neutrophils # (1.3-7.7) k/uL Lymphocytes # (1.0-4.8) k/uL Monocytes # (0-1.0) k/uL Eosinophils # (0-0.7) k/uL Basophils # (0-0.2) k/uL PT (9.0-12.0) sec INR (<1.2) APTT (22.0-30.0) sec Sodium (137-145) mmol/L Potassium (3.5-5.1) mmol/L Chloride (98-107) mmol/L Carbon Dioxide (22-30) mmol/L Anion Gap mmol/L BUN (7-17) mg/dL Creatinine (0.52-1.04) mg/dL Est GFR (CKD-EPI)AfAm (>60 ml/min/1.73 sqM) Est GFR (CKD-EPI)NonAf (>60 ml/min/1.73 sqM) Glucose (74-99) mg/dL Plasma Lactic Acid Kamron 1.4 (0.7-2.0) mmol/L Calcium (8.4-10.2) mg/dL Total Bilirubin (0.2-1.3) mg/dL AST (14-36) U/L ALT (4-34) U/L Alkaline Phosphatase (38-126) U/L Troponin I 0.029 (0.000-0.034) ng/mL NT-Pro-B Natriuret Pep 2960 pg/mL Total Protein (6.3-8.2) g/dL Albumin (3.5-5.0) g/dL - Radiology Data Radiology results: image reviewed (Chest x-ray shows cardiomegaly) Disposition Clinical Impression: CHF (congestive heart failure), ARF (acute renal failure) Disposition: ADMITTED IP TO THIS HOSP Is patient prescribed a controlled substance at d/c from ED?: No Referrals: Jhonathan Baca MD [Primary Care Provider] - 1-2 days Decision Time: 19:16
[2020-12-09 18:13] LABS: Basophils % (A) 0 %; Eosinophils # (A) 0.1 k/uL (0-0.7); Eosinophils % (A) 1 %; HCT 30.2 % (34.0-46.0); HGB 10.3 gm/dL (11.4-16.0); Lymphocytes # (A) 1.6 k/uL (1.0-4.8); Lymphocytes % (A) 20 %; MCH 32.2 pg (25.0-35.0); MCHC 34.1 g/dL (31.0-37.0); MCV 94.2 fL (80.0-100.0); Mean Platelet Volume 8.4; Monocytes # (A) 0.4 k/uL (0-1.0); Monocytes % (A) 4 %; Neutrophils # (A) 5.9 k/uL (1.3-7.7); Neutrophils % (A) 74 %; Platelet Count 161 k/uL (150-450); RDW 15.2 % (11.5-15.5)
[2020-12-09 18:23] LABS: INR 0.9 (<1.2); Partial Thromboplastin Time 22.1 sec (22.0-30.0); Prothrombin Time 9.7 sec (9.0-12.0)
[2020-12-09 18:25] LABS: Albumin 3.2 g/dL (3.5-5.0); Calcium 9.4 mg/dL (8.4-10.2); Potassium 4.4 mmol/L (3.5-5.1); Total Bilirubin 0.3 mg/dL (0.2-1.3); Total Protein 6.1 g/dL (6.3-8.2)
--- NOTE | 2020-12-09 18:40 | XR ---
EXAMINATION TYPE: XR chest 2V DATE OF EXAM: 12/09/2020 COMPARISON: 08/28/2020 HISTORY: Syncope TECHNIQUE: 2 views FINDINGS: Heart is enlarged. There is no heart failure. There are no hilar masses. Costophrenic angle s are clear. There is right shoulder prosthesis. IMPRESSION: Cardiomegaly. No acute lung disease. No change.
[2020-12-09] MEDS ORDERED: ASPIRIN 325 MG TAB PO STA (19:22)
[2020-12-09] MEDS: NITROGLYCERIN OINT 1 INCH/GM PACKET TOPICAL SCH (19:31)
[2020-12-09 20:14] LABS: Glucose,Whole Blood 231 mg/dL (75-99)
[2020-12-09] MEDS ORDERED: ALBUTEROL NEBULIZED 2.5 MG/3 ML INHALATION PRN (21:16)
[2020-12-09] MEDS: MONTELUKAST 10 MG TAB PO SCH (22:12)
[2020-12-09] MEDS: ATORVASTATIN 40 MG TAB PO SCH (22:12)
[2020-12-09] MEDS: HEPARIN SODIUM,PORCINE/PF 5,000 UNIT/0.5 ML SYRINGE SQ SCH (22:12)
[2020-12-09] MEDS: INSULIN DETEMIR (LEVEMIR) 100 UNIT/ML SYR SQ SCH (22:12)
[2020-12-10] MEDS: DICLOFENAC SODIUM GEL 100 GM TUBE TOPICAL PRN ×2 (04:07→12:41)
[2020-12-10 07:12] LABS: Glucose,Whole Blood 167 mg/dL (75-99)
[2020-12-10] MEDS: LEVOTHYROXINE 88 MCG TAB PO SCH (07:34)
[2020-12-10] MEDS: INSULIN ASPART (NovoLOG) 100 UNIT/ML VIAL SQ SCH ×7 (07:34→20:52)
[2020-12-10] MEDS ORDERED: FUROSEMIDE 10 MG/ML 4 ML VIAL IV SCH (09:00)
[2020-12-10] MEDS: ASPIRIN 81 MG PO SCH (09:14)
[2020-12-10] MEDS: CLOPIDOGREL 75 MG TAB PO SCH (09:14)
[2020-12-10] MEDS: DOCUSATE 100 MG CAP PO SCH ×2 (09:14→20:51)
[2020-12-10] MEDS: HEPARIN SODIUM,PORCINE/PF 5,000 UNIT/0.5 ML SYRINGE SQ SCH ×3 (09:14→23:09)
[2020-12-10] MEDS: CALCIUM ACETATE 667 MG TAB PO SCH ×4 (09:14→17:29)
[2020-12-10] MEDS: DULoxetine HCL 60 MG CAPSULE.DR PO SCH (09:15)
[2020-12-10] MEDS: ISOSORBIDE MONONITRATE ER 30 MG TAB.ER.24H PO SCH (09:16)
[2020-12-10] MEDS: PANTOPRAZOLE 40 MG TABLET PO SCH (09:16)
--- NOTE | 2020-12-10 09:37 | P.NPCON ---
History of Present Illness - Reason for Consult acute renal failure, chronic renal failure - History of Present Illness Reason for consultation: Acute kidney injury on chronic kidney disease History of present illness: Patient is a 65-year-old female seen in renal consultation for acute kidney injury on chronic kidney disease. Patient presented to the hospital with weight gain of 7 pounds over the last 1 week. She admits to mild dyspnea with activity. No active chest pain or shortness of breath now. Edema has improved. She did receive Lasix 40 mg IV once on admission and is now maintained on 30 mg IV Lasix twice daily. Ultrasound from earlier this month showed no evidence of hydronephrosis. She denies use of nonsteroidals. She has long-standing history of diabetes. She has history of systolic CHF with ejection fraction of 40-45% with moderate mitral regurgitation. Chest x-ray revealed no evidence of fluid overload. Patient has chronic kidney disease stage IV secondary to diabetic kidney disease with baseline creatinine the range of 2-2.4. No fever or chills. No cough. Vital signs are stable. General: The patient appeared well nourished and normally developed. HEENT: Head exam is unremarkable. Neck is without jugular venous distension. LUNGS:Breath sounds decreased. HEART: Rate and Rhythm are regular. ABDOMEN: Soft, obese. EXTREMITITES: Trace edema. Past Medical History Past Medical History: Asthma, Coronary Artery Disease (CAD), Cancer, Heart Failure, COPD, Diabetes Mellitus, GI Bleed, Hyperlipidemia, Hypertension, Myocardial Infarction ([place]), Osteoarthritis (OA), Pulmonary Embolus (PE), Renal Disease, Rheumatoid Arthritis (RA), Sleep Apnea/CPAP/BIPAP, Syncope, Thyroid Disorder Additional Past Medical History / Comment(s): IDDM type II poorly controlled,uses cpap bilateral peripheral neuropathy bilateral hands/feet, CKD , UTIs, legally blind bilaterally-sees minimally, thyroid cancer with surgery, goiter, hashimotos, diverticular disease, 2014 upper and lower GI bleeds with blood loss anemia, gout, R humeral fracture with surgery, occasionally bladder incont.past falls, "lt ankle broke 3 places-SX DONE. pt stated "not walking but able to stand and pivot with med boot on," Last Myocardial Infarction Date:: 2009 History of Any Multi-Drug Resistant Organisms: None Reported Past Surgical History: Adenoidectomy, Back Surgery, Cholecystectomy, Heart Catheterization With Stent, Tonsillectomy Additional Past Surgical History / Comment(s): PCI with stent 2009 & 2018, low back surgery, total R shoulder and total R knee arthroplasties, bilateral hand trigger finger surgeries, EGD, colonoscopy, L eye laser eye surgery for bleed, thyroidectomy.lt tib fib fx-plate and screws. Past Anesthesia/Blood Transfusion Reactions: No Reported Reaction Additional Past Anesthesia/Blood Transfusion Reaction / Comment(s): Pt has received blood in past without reaction. Date of Last Stent Placement:: 2017 Past Psychological History: Anxiety, Depression Additional Psychological History / Comment(s): Pt resides with her clare, son-in-law and grandchildren x4. She uses a walker to ambulate. She does not drive, her clare takes her to appts. Smoking Status: Never smoker Past Alcohol Use History: None Reported Past Drug Use History: None Reported - Past Family History Mother Family Medical History: Asthma, CVA/TIA, Seizure Disorder Additional Family Medical History / Comment(s): epilepsy Father Family Medical History: COPD, Diabetes Mellitus Additional Family Medical History / Comment(s): many heart problems Medications and Allergies Home Medications Medication Instructions Recorded Confirmed Type Calcium Acetate [PhosLo] 667 mg PO TID@0800,1400,2000 11/21/17 12/09/20 History Ferrous Sulfate [Iron (65 MG 325 mg PO DAILY@1700 11/21/17 12/09/20 History Elemental)] Fluticasone Propionate [Flovent 2 puff INHALATION RT-BID 11/21/17 12/09/20 History Hfa 110 mcg] Insulin Aspart [NovoLOG Flexpen] 5 unit SQ AC-BID 11/21/17 12/09/20 History Levothyroxine Sodium [Synthroid] 175 mcg PO DAILY@0600 11/21/17 12/09/20 History Montelukast [Singulair] 10 mg PO HS 11/21/17 12/09/20 History Insulin Degludec [Tresiba] 40 units SQ HS 08/19/18 12/09/20 History Pantoprazole Sodium [Protonix] 40 mg PO DAILY 08/19/18 12/09/20 History Furosemide [Lasix] 20 mg PO DAILY@0800 01/04/19 12/09/20 History Sucralfate [Carafate] 1 gm PO TID-W/MEALS 01/04/19 12/09/20 History allopurinoL [Zyloprim] 300 mg PO DAILY 01/04/19 12/09/20 History Aspirin 81 mg PO DAILY #30 chew 01/13/19 12/09/20 Rx Clopidogrel [Plavix] 75 mg PO DAILY #30 tab 01/13/19 12/09/20 Rx Gabapentin [Neurontin] 400 mg PO TID@0800,1400,1999 #9 cap 01/13/19 12/09/20 Rx Isosorbide Mononitrate ER [Imdur] 30 mg PO DAILY #30 tab.er.24h 01/13/19 12/09/20 Rx Nitroglycerin Sl Tabs [Nitrostat] 0.4 mg SUBLINGUAL Q5M PRN #25 tab 01/13/19 12/09/20 Rx Atorvastatin [Lipitor] 40 mg PO HS 09/08/20 12/09/20 History DULoxetine HCL [Cymbalta] 60 mg PO DAILY 09/08/20 12/09/20 History Insulin Aspart [NovoLOG Flexpen] 6 units SQ AC-LUNCH 09/08/20 12/09/20 History calcitrioL [Calcitriol] 0.25 mcg PO Q7D 09/08/20 12/09/20 History carvediloL [Coreg*] 12.5 mg PO BID@0800,1700 #60 tab 09/11/20 12/09/20 Rx Albuterol Sulfate [Ventolin HFA] 2 puff INHALATION RT-Q6H PRN 12/09/20 12/09/20 History Cholecalciferol [Vitamin D3 (25 50 mcg PO DAILY 12/09/20 12/09/20 History Mcg = 1000 Iu)] Diclofenac Sodium Gel [Voltaren 4 gm TOPICAL QID PRN 12/09/20 12/09/20 History Gel] Docusate [Colace] 100 mg PO BID 12/09/20 12/09/20 History Sodium Bicarbonate Tab 650 mg PO TID@0800,1400,199912/09/20 12/09/20 History Vitafusion Power Of C Gummies 3 cap PO DAILY 12/09/20 12/09/20 History amLODIPine [Norvasc] 5 mg PO DAILY 12/09/20 12/09/20 History Allergies Allergy/AdvReac Type Severity Reaction Status Date / Time No Known Allergies Allergy Verified 12/09/20 19:36 Physical Exam Vitals: Vital Signs Temp Pulse Pulse Resp BP BP Pulse Ox 12/10/20 04:00 62 18 118/54 97 12/10/20 00:00 63 20 107/49 94 L 12/09/20 20:13 98.2 F 67 22 126/58 96 12/09/20 19:52 98.6 F 12/09/20 18:59 64 20 116/48 95 12/09/20 17:29 98.1 F 68 18 163/69 98 Intake and Output 12/09/20 12/10/20 12/10/20 22:59 06:59 14:59 Intake Total 540 0 Output Total 400 Balance 540 -400 0 Intake: Oral 540 0 Output: Urine 400 Other: Voiding Method External Catheter Bedside Commode # Voids 1 Weight 123.377 kg 129.8 kg Results - Lab Results Most recent lab results Calcium 9.4 mg/dL (8.4-10.2) 12/09/20 17:58 Magnesium 2.1 mg/dL (1.6-2.3) 12/09/20 17:58 12/09/20 17:58 12/09/20 17:58 Assessment and Plan Plan: Assessment: 1. Acute kidney injury secondary to ATN secondary to cardiorenal syndrome. Creatinine 3.45 on admission. Recent ultrasound revealed no evidence of hydronephrosis. 2. Acute on chronic systolic CHF with ejection fraction of 40-45% with moderate mitral regurgitation. 3. Chronic kidney disease stage IV secondary to diabetic kidney disease with baseline creatinine in the range of 2-2.4. 4. Diabetes mellitus. 5. Lower extremity edema. Improved. 6. Chronic kidney disease mineral bone disease maintained on PhosLo. 7. Hypertension with chronic kidney disease. Stable. Plan: Maintain IV Lasix - I will change the dose to 40 mg IV twice daily. Check bladder scan to rule out urinary retention. Avoid nephrotoxins. Continue to monitor renal function and urine output. Morning labs pending. Thank you for the consultation. I will continue to follow the patient with you during her hospital stay.
[2020-12-10] MEDS: NITROGLYCERIN OINT 1 INCH/GM PACKET TOPICAL SCH (09:52)
[2020-12-10] MEDS: FUROSEMIDE 10 MG/ML 4 ML VIAL IV SCH ×2 (09:53→20:51)
[2020-12-10 10:02] LABS: Calcium 8.9 mg/dL (8.4-10.2); Magnesium 2.1 mg/dL (1.6-2.3); Potassium 4.2 mmol/L (3.5-5.1)
[2020-12-10 11:53] LABS: Glucose,Whole Blood 92 mg/dL (75-99)
[2020-12-10 12:13] VITALS: BMI 49.1
--- NOTE | 2020-12-10 12:22 | P.CRDCN ---
History of Present Illness Consult date: 12/10/20 History of present illness: This is a pleasant 65-year-old female past medical history significant for coronary artery disease s/p PCI RCA and LAD most recently the LAD was done in 2018, most recent cardiac catheterization was performed in August of , medical therapy was advised hypertension, dyslipidemia, diabetes mellitus, COPD and morbid obesity. She has followed in the office with Dr. Earl in the past, however has not been to the office since 2019 due to financial constraints. She presented to the hospital on this occasion with complaints of a lower extremity swelling, left leg greater than the right, she's also been quite fatigued, experiencing some PND and orthopnea. She states that the symptoms have been worsening over the past 3 days. She denies any chest discomfort. Patient states that she does weigh herself daily and has noticed a 7 pound weight gain. Patient does have a history of systolic congestive heart failure with documented ejection fraction of 40-45% with moderate mitral regurgitation. Her chest x-ray on this presentation revealed no evidence of fluid overload. Blood pressure 118/54, heart rate in the 60s, 97% on room air. Blood cell count 8.0, hemoglobin 10.3, platelet count 161. Sodium 140, potassium 4.4, BUN 99, creatinine 3.4. BNP level 2960, at the time of her admission in 2019 her BNP level was 22,000. Patient has been seen in consultation by nephrology who she follows as an outpatient, they increased her Lasix dose and have requested a bladder scan. Past Medical History Past Medical History: Asthma, Coronary Artery Disease (CAD), Cancer, Heart Failure, COPD, Diabetes Mellitus, GI Bleed, Hyperlipidemia, Hypertension, Myocardial Infarction ([place]), Osteoarthritis (OA), Pulmonary Embolus (PE), Renal Disease, Rheumatoid Arthritis (RA), Sleep Apnea/CPAP/BIPAP, Syncope, Thyroid Disorder Additional Past Medical History / Comment(s): IDDM type II poorly controlled,uses cpap bilateral peripheral neuropathy bilateral hands/feet, CKD , UTIs, legally blind bilaterally-sees minimally, thyroid cancer with surgery, goiter, hashimotos, diverticular disease, 2014 upper and lower GI bleeds with blood loss anemia, gout, R humeral fracture with surgery, occasionally bladder incont.past falls, "lt ankle broke 3 places-SX DONE. pt stated "not walking but able to stand and pivot with med boot on," Last Myocardial Infarction Date:: 2009 History of Any Multi-Drug Resistant Organisms: None Reported Past Surgical History: Adenoidectomy, Back Surgery, Cholecystectomy, Heart Catheterization With Stent, Tonsillectomy Additional Past Surgical History / Comment(s): PCI with stent 2009 & 2018, low back surgery, total R shoulder and total R knee arthroplasties, bilateral hand trigger finger surgeries, EGD, colonoscopy, L eye laser eye surgery for bleed, thyroidectomy.lt tib fib fx-plate and screws. Past Anesthesia/Blood Transfusion Reactions: No Reported Reaction Additional Past Anesthesia/Blood Transfusion Reaction / Comment(s): Pt has received blood in past without reaction. Date of Last Stent Placement:: 2017 Past Psychological History: Anxiety, Depression Additional Psychological History / Comment(s): Pt resides with her clare, son-in-law and grandchildren x4. She uses a walker to ambulate. She does not drive, her clare takes her to appts. Smoking Status: Never smoker Past Alcohol Use History: None Reported Past Drug Use History: None Reported - Past Family History Mother Family Medical History: Asthma, CVA/TIA, Seizure Disorder Additional Family Medical History / Comment(s): epilepsy Father Family Medical History: COPD, Diabetes Mellitus Additional Family Medical History / Comment(s): many heart problems Medications and Allergies Home Medications Medication Instructions Recorded Confirmed Type Calcium Acetate [PhosLo] 667 mg PO TID@0800,1400,2000 11/21/17 12/09/20 History Ferrous Sulfate [Iron (65 MG 325 mg PO DAILY@1700 11/21/17 12/09/20 History Elemental)] Fluticasone Propionate [Flovent 2 puff INHALATION RT-BID 11/21/17 12/09/20 History Hfa 110 mcg] Insulin Aspart [NovoLOG Flexpen] 5 unit SQ AC-BID 11/21/17 12/09/20 History Levothyroxine Sodium [Synthroid] 175 mcg PO DAILY@0600 11/21/17 12/09/20 History Montelukast [Singulair] 10 mg PO HS 11/21/17 12/09/20 History Insulin Degludec [Tresiba] 40 units SQ HS 08/19/18 12/09/20 History Pantoprazole Sodium [Protonix] 40 mg PO DAILY 08/19/18 12/09/20 History Furosemide [Lasix] 20 mg PO DAILY@0800 01/04/19 12/09/20 History Sucralfate [Carafate] 1 gm PO TID-W/MEALS 01/04/19 12/09/20 History allopurinoL [Zyloprim] 300 mg PO DAILY 01/04/19 12/09/20 History Aspirin 81 mg PO DAILY #30 chew 01/13/19 12/09/20 Rx Clopidogrel [Plavix] 75 mg PO DAILY #30 tab 01/13/19 12/09/20 Rx Gabapentin [Neurontin] 400 mg PO TID@0800,1400,1999 #9 cap 01/13/19 12/09/20 Rx Isosorbide Mononitrate ER [Imdur] 30 mg PO DAILY #30 tab.er.24h 01/13/19 12/09/20 Rx Nitroglycerin Sl Tabs [Nitrostat] 0.4 mg SUBLINGUAL Q5M PRN #25 tab 01/13/19 12/09/20 Rx Atorvastatin [Lipitor] 40 mg PO HS 09/08/20 12/09/20 History DULoxetine HCL [Cymbalta] 60 mg PO DAILY 09/08/20 12/09/20 History Insulin Aspart [NovoLOG Flexpen] 6 units SQ AC-LUNCH 09/08/20 12/09/20 History calcitrioL [Calcitriol] 0.25 mcg PO Q7D 09/08/20 12/09/20 History carvediloL [Coreg*] 12.5 mg PO BID@0800,1700 #60 tab 09/11/20 12/09/20 Rx Albuterol Sulfate [Ventolin HFA] 2 puff INHALATION RT-Q6H PRN 12/09/20 12/09/20 History Cholecalciferol [Vitamin D3 (25 50 mcg PO DAILY 12/09/20 12/09/20 History Mcg = 1000 Iu)] Diclofenac Sodium Gel [Voltaren 4 gm TOPICAL QID PRN 12/09/20 12/09/20 History Gel] Docusate [Colace] 100 mg PO BID 12/09/20 12/09/20 History Sodium Bicarbonate Tab 650 mg PO TID@0800,1400,199912/09/20 12/09/20 History Vitafusion Power Of C Gummies 3 cap PO DAILY 12/09/20 12/09/20 History amLODIPine [Norvasc] 5 mg PO DAILY 12/09/20 12/09/20 History Allergies Allergy/AdvReac Type Severity Reaction Status Date / Time No Known Allergies Allergy Verified 12/09/20 19:36 Physical Exam Vitals: Vital Signs Temp Pulse Pulse Resp BP BP Pulse Ox 12/10/20 08:00 98.0 F 68 18 168/70 96 12/10/20 04:00 62 18 118/54 97 12/10/20 00:00 63 20 107/49 94 L 12/09/20 20:13 98.2 F 67 22 126/58 96 12/09/20 19:52 98.6 F 12/09/20 18:59 64 20 116/48 95 12/09/20 17:29 98.1 F 68 18 163/69 98 Intake and Output 12/09/20 12/10/20 12/10/20 22:59 06:59 14:59 Intake Total 540 0 Output Total 400 Balance 540 -400 0 Intake: Oral 540 0 Output: Urine 400 Other: Voiding Method External Catheter Bedside Commode Bedside Commode # Voids 1 Weight 123.377 kg 129.8 kg PHYSICAL EXAMINATION: GENERAL: 65-year-old female in no acute distress at the time of my examination HEENT: Head is atraumatic, normocephalic. Pupils equal, round. Sclera anicteric. Conjunctiva are clear. Mucous membranes of the mouth are moist. Neck is supple. There is no elevated jugular venous pressure. No carotid bruit is heard. HEART EXAMINATION: Heart S1 S2 1 systolic murmur is heard CHEST EXAMINATION: Lungs are clear to auscultation and precussion. No chest wall tenderness is noted on palpation or with deep breathing. ABDOMEN: Soft, nontender. Bowel sounds are heard. No organomegaly noted. EXTREMITIES: 2+ peripheral pulses with trace evidence of peripheral edema, left leg greater than the right, no calf tenderness noted. NEUROLOGIC patient is awake, alert and oriented 3 . . Results 12/09/20 17:58 12/10/20 09:11 Cardiac Enzymes 12/09/20 12/09/20 Range/Units 17:58 17:58 AST 39 H (14-36) U/L Troponin I 0.029 (0.000-0.034) ng/mL Coagulation 06/18/21 Range/Units 17:58 PT 9.7 (9.0-12.0) sec APTT 22.1 (22.0-30.0) sec CBC 12/09/20 Range/Units 17:58 WBC 8.0 (3.8-10.6) k/uL RBC 3.20 L (3.80-5.40) m/uL Hgb 10.3 L (11.4-16.0) gm/dL Hct 30.2 L (34.0-46.0) % Plt Count 161 (150-450) k/uL Comprehensive Metabolic Panel 21 12/10/20 Range/Units 17:58 09:11 Sodium 140 140 (137-145) mmol/L Potassium 4.4 4.2 (3.5-5.1) mmol/L Chloride 102 102 (98-107) mmol/L Carbon Dioxide 30 28 (22-30) mmol/L BUN 99 H 100 H (7-17) mg/dL Creatinine 3.45 H 3.46 H (0.52-1.04) mg/dL Glucose 247 H 119 H (74-99) mg/dL Calcium 9.4 8.9 (8.4-10.2) mg/dL AST 39 H (14-36) U/L ALT 26 (4-34) U/L Alkaline Phosphatase 83 (38-126) U/L Total Protein 6.1 L (6.3-8.2) g/dL Albumin 3.2 L (3.5-5.0) g/dL Current Medications Generic Name Dose Route Start Last Admin Trade Name Freq PRN Reason Stop Dose Admin Albuterol Sulfate 2.5 mg 12/09/20 21:16 Albuterol Nebulized 2.5 Mg/3 Ml INHALATION RT-Q6H PRN Shortness Of Breath Aspirin 81 mg 12/10/20 09:00 12/10/20 09:14 Aspirin 81 Mg PO 81 mg DAILY KUNAL Administration Atorvastatin Calcium 40 mg 12/09/20 21:30 12/09/20 22:12 Atorvastatin 40 Mg Tab PO 40 mg HS KUNAL Administration Calcium Acetate 667 mg 12/10/20 08:00 12/10/20 09:14 Calcium Acetate 667 Mg Tab PO 667 mg TID@0800,1400,2000 KUNAL Administration Clopidogrel Bisulfate 75 mg 12/10/20 09:00 12/10/20 09:14 Clopidogrel 75 Mg Tab PO 75 mg DAILY KUNAL Administration Diclofenac Sodium 4 gm 12/09/20 21:16 12/10/20 04:07 Diclofenac Sodium Gel 100 Gm Tube TOPICAL 4 gm QID PRN Administration joint pain Docusate Sodium 100 mg 12/10/20 09:00 12/10/20 09:14 Docusate 100 Mg Cap PO 100 mg BID KUNAL Administration Duloxetine HCl 60 mg 12/10/20 09:00 12/10/20 09:15 Duloxetine Hcl 60 Mg Capsule.Dr PO 60 mg DAILY KUNAL Administration Furosemide 40 mg 12/10/20 10:00 12/10/20 09:53 Furosemide 10 Mg/Ml 4 Ml Vial IV Not Given Q12HR [facility] Heparin Sodium (Porcine) 5,000 unit 12/10/20 00:00 12/10/20 09:14 Heparin Sodium,Porcine/Pf 5,000 Unit/0.5 Ml Syringe SQ 5,000 unit Q8HR [facility] Administration Insulin Aspart 5 unit 12/10/20 07:30 12/10/20 07:34 Insulin Aspart (Novolog) 100 Unit/Ml Vial SQ 5 unit AC-BID KUNAL Administration Insulin Aspart 6 unit 12/10/20 12:30 Insulin Aspart (Novolog) 100 Unit/Ml Vial SQ AC-LUNCH KUNLA Insulin Aspart 0 unit 12/10/20 07:30 12/10/20 07:34 Insulin Aspart (Novolog) 100 Unit/Ml Vial SQ 2 unit ACHS [facility] Administration Protocol Insulin Detemir 40 unit 12/09/20 21:30 12/09/20 22:12 Insulin Detemir (Levemir) 100 Unit/Ml Syr SQ 40 unit HS [facility] Administration Isosorbide Mononitrate 30 mg 12/10/20 09:00 12/10/20 09:16 Isosorbide Mononitrate Er 30 Mg Tab.Er.24h PO 30 mg DAILY KUNAL Administration Levothyroxine Sodium 176 mcg 12/10/20 06:00 12/10/20 07:34 Levothyroxine 88 Mcg Tab PO 176 mcg DAILY@0600 KUNAL Administration Montelukast Sodium 10 mg 12/09/20 21:30 12/09/20 22:12 Montelukast 10 Mg Tab PO 10 mg HS [facility] Administration Pantoprazole Sodium 40 mg 12/10/20 09:00 06/19/21 09:16 Pantoprazole 40 Mg Tablet PO 40 mg DAILY KUNAL Administration Sodium Chloride 10 ml 12/09/20 21:00 12/10/20 09:17 Sodium Chloride 0.9% Flush 10 Ml Syringe IV 10 ml BID KUNAL Administration Intake and Output 12/09/20 12/10/20 12/10/20 22:59 06:59 14:59 Intake Total 540 0 Output Total 400 Balance 540 -400 0 Intake: Oral 540 0 Output: Urine 400 Other: Voiding Method External Catheter Bedside Commode Bedside Commode # Voids 1 Weight 123.377 kg 129.8 kg 12/09/20 17:58 12/10/20 09:11 EKG Interpretations (text) EKG shows normal sinus rhythm with bigeminal PVCs Assessment and Plan Plan: Assessment and plan #1 acute kidney injury #2 acute on chronic systolic congestive heart failure with documented ejection fraction of 40-45%, moderate mitral regurgitation, #3 chronic kidney disease stage IV #4 diabetes #5 hypertension Plan Repeat echocardiogram with Doppler study. Continue IV Lasix as per nephrology recommendation. Continue to monitor the patient's intake and output. DNP note has been reviewed, I agree with a documented findings and plan of care. Patient was seen and examined.
[2020-12-10 13:46] LABS: Glucose,Whole Blood 131 mg/dL (75-99)
[2020-12-10 14:17] LABS: Appearance,Urine Cloudy (Clear); Bacteria,Urine Many /hpf; Bilirubin,Urine Negative (Negative); Blood,Urine Negative (Negative); Color,Urine Light Yellow; Glucose,Urine (UA) Negative (Negative); Ketones,Urine Negative (Negative); Leukocyte Esterase,Urine Large (Negative); Mucus,Urine Rare /hpf; Nitrite,Urine Negative (Negative); PH, Urine 5.5 (5.0-8.0); Protein,Urine Trace (Negative); Specific Gravity,Urine 1.012 (1.001-1.035); Squamous Epithelial Cell,Urine 4 /hpf (0-4); Urobilinogen,Urine <2.0 mg/dL (<2.0); WBC,Urine 83 /hpf (0-5)
--- NOTE | 2020-12-10 14:18 | P.HPIM ---
History of Present Illness This is a pleasant 65 years old female with past medical history of coronary artery disease status post stent placement, chronic heart failure, diabetes mellitus, hypertension, hyperlipidemia, rheumatoid arthritis, sleep apnea with CPAP/BiPAP, hypothyroidism with history of thyroid cancer status post surgery, history of Ashish disease. History of GI bleed. She has recent cardiac cath about 3 months ago and at that time she has patent coronary arteries and temporary help agency referral clerk recommended continue with medical management. Her PCP is Dr. Baca. Her temporary help agency referral clerk S Dr. Earl. Her event technician is Dr. Spencer. Also she follows with her tie knitter helper for rheumatoid arthritis This time patient presents because of dyspnea for 3 days. Associated with bilateral feet swelling more on the left side to the degree that she cannot put her shoes on. She denies chest pain or coughing. No abdominal or urinary complaints. She denies headache or weakness or numbness. She has chronic back pain for 3 months, her pain mainly in the right lower back, status post back surgery about 7 years ago at present in hospital. She denies smoking, alcohol or illicit drugs. Patient is not depressed. She is hemodynamically stable and she is saturating 96% on room air Creatinine is elevated at 3.4 upon admission with baseline of 1.7-2.4 Echocardiogram showing ejection fraction of 45-50% Review of Systems CONSTITUTIONAL: No fever, no malaise, no fatigue. HEENT: No recent visual problems or hearing problems. Denied any sore throat. CARDIOVASCULAR: No orthopnea, PND, no palpitations, no syncope. PULMONARY: no cough, no hemoptysis. GASTROINTESTINAL: No diarrhea, no nausea, no vomiting, no abdominal pain. Normoactive bowel sounds. NEUROLOGICAL: No headaches, no weakness, no numbness. HEMATOLOGICAL: Denies any bleeding or petechiae. GENITOURINARY: Denies any burning micturition, frequency, or urgency. MUSCULOSKELETAL/RHEUMATOLOGICAL: Denies any joint pain, swelling, or any muscle pain. ENDOCRINE: Denies any polyuria or polydipsia. Past Medical History Past Medical History: Asthma, Coronary Artery Disease (CAD), Cancer, Heart Failure, COPD, Diabetes Mellitus, GI Bleed, Hyperlipidemia, Hypertension, Myocardial Infarction ([place]), Osteoarthritis (OA), Pulmonary Embolus (PE), Renal Disease, Rheumatoid Arthritis (RA), Sleep Apnea/CPAP/BIPAP, Syncope, Thyroid Disorder Additional Past Medical History / Comment(s): IDDM type II poorly controlled,uses cpap bilateral peripheral neuropathy bilateral hands/feet, CKD , UTIs, legally blind bilaterally-sees minimally, thyroid cancer with surgery, goiter, hashimotos, diverticular disease, 2013 upper and lower GI bleeds with blood loss anemia, gout, R humeral fracture with surgery, occasionally bladder incont.past falls, "lt ankle broke 3 places-SX DONE. pt stated "not walking but able to stand and pivot with med boot on," Last Myocardial Infarction Date:: 2009 History of Any Multi-Drug Resistant Organisms: None Reported Past Surgical History: Adenoidectomy, Back Surgery, Cholecystectomy, Heart Catheterization With Stent, Tonsillectomy Additional Past Surgical History / Comment(s): PCI with stent 2009 & 2018, low back surgery, total R shoulder and total R knee arthroplasties, bilateral hand trigger finger surgeries, EGD, colonoscopy, L eye laser eye surgery for bleed, thyroidectomy.lt tib fib fx-plate and screws. Past Anesthesia/Blood Transfusion Reactions: No Reported Reaction Additional Past Anesthesia/Blood Transfusion Reaction / Comment(s): Pt has received blood in past without reaction. Date of Last Stent Placement:: 2017 Past Psychological History: Anxiety, Depression Additional Psychological History / Comment(s): Pt resides with her clare, son-in-law and grandchildren x4. She uses a walker to ambulate. She does not drive, her clare takes her to appts. Smoking Status: Never smoker Past Alcohol Use History: None Reported Past Drug Use History: None Reported - Past Family History Mother Family Medical History: Asthma, CVA/TIA, Seizure Disorder Additional Family Medical History / Comment(s): epilepsy Father Family Medical History: COPD, Diabetes Mellitus Additional Family Medical History / Comment(s): many heart problems Medications and Allergies Home Medications Medication Instructions Recorded Confirmed Type Calcium Acetate [PhosLo] 667 mg PO TID@0800,1400,2000 11/21/17 12/09/20 History Ferrous Sulfate [Iron (65 MG 325 mg PO DAILY@1700 11/21/17 12/09/20 History Elemental)] Fluticasone Propionate [Flovent 2 puff INHALATION RT-BID 11/21/17 12/09/20 History Hfa 110 mcg] Insulin Aspart [NovoLOG Flexpen] 5 unit SQ AC-BID 11/21/17 12/09/20 History Levothyroxine Sodium [Synthroid] 175 mcg PO DAILY@0600 11/21/17 12/09/20 History Montelukast [Singulair] 10 mg PO HS 11/21/17 12/09/20 History Insulin Degludec [Tresiba] 40 units SQ HS 08/19/18 12/09/20 History Pantoprazole Sodium [Protonix] 40 mg PO DAILY 08/19/18 12/09/20 History Furosemide [Lasix] 20 mg PO DAILY@0800 01/04/19 12/09/20 History Sucralfate [Carafate] 1 gm PO TID-W/MEALS 01/04/19 12/09/20 History allopurinoL [Zyloprim] 300 mg PO DAILY 01/04/19 12/09/20 History Aspirin 81 mg PO DAILY #30 chew 01/13/19 12/09/20 Rx Clopidogrel [Plavix] 75 mg PO DAILY #30 tab 01/13/19 12/09/20 Rx Gabapentin [Neurontin] 400 mg PO TID@0800,1400,2000 #9 cap 01/13/19 12/09/20 Rx Isosorbide Mononitrate ER [Imdur] 30 mg PO DAILY #30 tab.er.24h 01/13/19 12/09/20 Rx Nitroglycerin Sl Tabs [Nitrostat] 0.4 mg SUBLINGUAL Q5M PRN #25 tab 01/13/19 12/09/20 Rx Atorvastatin [Lipitor] 40 mg PO HS 09/08/20 12/09/20 History DULoxetine HCL [Cymbalta] 60 mg PO DAILY 09/08/20 12/09/20 History Insulin Aspart [NovoLOG Flexpen] 6 units SQ AC-LUNCH 09/08/20 12/09/20 History calcitrioL [Calcitriol] 0.25 mcg PO Q7D 09/08/20 12/09/20 History carvediloL [Coreg*] 12.5 mg PO BID@0800,1700 #60 tab 09/11/20 12/09/20 Rx Albuterol Sulfate [Ventolin HFA] 2 puff INHALATION RT-Q6H PRN 12/09/20 12/09/20 History Cholecalciferol [Vitamin D3 (25 50 mcg PO DAILY 12/09/20 12/09/20 History Mcg = 1000 Iu)] Diclofenac Sodium Gel [Voltaren 4 gm TOPICAL QID PRN 12/09/20 12/09/20 History Gel] Docusate [Colace] 100 mg PO BID 12/09/20 12/09/20 History Sodium Bicarbonate Tab 650 mg PO TID@0800,1400,2000 12/09/20 12/09/20 History Vitafusion Power Of C Gummies 3 cap PO DAILY 12/09/20 12/09/20 History amLODIPine [Norvasc] 5 mg PO DAILY 12/09/20 12/09/20 History Allergies Allergy/AdvReac Type Severity Reaction Status Date / Time No Known Allergies Allergy Verified 12/09/20 19:36 Physical Exam Vitals: Vital Signs Temp Pulse Pulse Resp BP BP Pulse Ox 12/10/20 08:00 98.0 F 68 18 168/70 96 12/10/20 04:00 62 18 118/54 97 12/10/20 00:00 63 20 107/49 94 L 12/09/20 20:13 98.2 F 67 22 126/58 96 12/09/20 19:52 98.6 F 12/09/20 18:59 64 20 116/48 95 12/09/20 17:29 98.1 F 68 18 163/69 98 Intake and Output 12/09/20 12/10/20 12/10/20 22:59 06:59 14:59 Intake Total 540 240 Output Total 400 Balance 540 -400 240 Intake: Oral 540 240 Output: Urine 400 Other: Voiding Method External Catheter Bedside Commode Bedside Commode # Voids 1 2 Weight 123.377 kg 129.8 kg 129.8 kg GENERAL: The patient is alert and oriented x3, not in any acute distress. Well developed, well nourished. HEENT: Pupils are round and equally reacting to light. EOMI. No scleral icterus. No conjunctival pallor. Normocephalic, atraumatic. No pharyngeal erythema. No thyromegaly. CARDIOVASCULAR: S1 and S2 present. No murmurs, rubs, or gallops. PULMONARY: Chest is clear to auscultation, no wheezing or crackles. ABDOMEN: Soft, nontender, nondistended, normoactive bowel sounds. No palpable organomegaly. MUSCULOSKELETAL: No joint swelling or deformity. EXTREMITIES: No cyanosis, clubbing, or pedal edema. NEUROLOGICAL: Gross neurological examination did not reveal any focal deficits. SKIN: No rashes. No petechiae Results CBC & Chem 7: 12/09/20 17:58 12/10/20 09:11 Labs: Abnormal Lab Results - Last 24 Hours (Table) 12/09/20 12/09/20 12/09/20 Range/Units 17:58 17:58 20:13 RBC 3.20 L (3.80-5.40) m/uL Hgb 10.3 L (11.4-16.0) gm/dL Hct 30.2 L (34.0-46.0) % BUN 99 H (7-17) mg/dL Creatinine 3.45 H (0.52-1.04) mg/dL Glucose 247 H (74-99) mg/dL POC Glucose (mg/dL) 231 H (75-99) mg/dL AST 39 H (14-36) U/L Total Protein 6.1 L (6.3-8.2) g/dL Albumin 3.2 L (3.5-5.0) g/dL 12/10/20 12/10/20 12/10/20 Range/Units 07:09 09:11 13:43 RBC (3.80-5.40) m/uL Hgb (11.4-16.0) gm/dL Hct (34.0-46.0) % BUN 100 H (7-17) mg/dL Creatinine 3.46 H (0.52-1.04) mg/dL Glucose 119 H (74-99) mg/dL POC Glucose (mg/dL) 167 H 131 H (75-99) mg/dL AST (14-36) U/L Total Protein (6.3-8.2) g/dL Albumin (3.5-5.0) g/dL Thrombosis Risk Factor Assmnt - Choose All That Apply Each Factor Represents 1 point: Abnormal pulmonary function (COPD), Obesity (BMI >25), Swollen legs (current) Each Risk Factor Represents 2 Points: Age 61-74 years Each Risk Factor Represents 3 Points: History of DVT/PE Other congenital or acquired thrombophilia - If yes, enter type in comment: No Thrombosis Risk Factor Assessment Total Risk Factor Score: 8 Thrombosis Risk Factor Assessment Level: High Risk Assessment and Plan Assessment: Acute on systolic chronic CHF Bilateral leg swelling secondary to above, rule out clotting disease Acute kidney injury and CKD, mostly cardiorenal syndrome Chronic kidney disease, stage III Diabetes mellitus Hypertension Hyperlipidemia History of rheumatoid arthritis History of sleep apnea on CPAP/BiPAP History of thyroid cancer status post surgery, history of Ashish disease and hypothyroidism Summary of GI bleed She had a normal cardiac cath about 3 months ago Morbidly obese with BMI of 49.1 This is a pleasant 65 years old female who presents with CHF and AKA I. Continue with Lasix. Follow-up recommendation by temporary help agency referral clerk and event technician\\ Check ultrasound of the legs Labs and medication were reviewed.. Continue same treatment. Continue with symptomatic treatment. Resume home medication. Monitor lytes and vitals. DVT and GI prophylaxis. Further recommendations depends on the clinical course of the patient DVT prophylaxis: Subcutaneous heparin GI Prophylaxis: Pepcid PT/OT: Pending Prognosis is guarded
[2020-12-10] MEDS ORDERED: NITROGLYCERIN SL TABS 0.4 MG TAB SUBLINGUAL ONE (14:44)
[2020-12-10] MEDS ORDERED: NITROGLYCERIN SL TABS 0.4 MG TAB SUBLINGUAL PRN (14:48)
[2020-12-10 16:57] LABS: Glucose,Whole Blood 209 mg/dL (75-99)
--- NOTE | 2020-12-10 18:15 | US ---
EXAMINATION TYPE: US venous doppler duplex LE DATE OF EXAM: 12/10/2020 2:11 PM COMPARISON: US 2013 CLINICAL HISTORY: Rule out DVT. SIDE PERFORMED: Bilateral TECHNIQUE: The lower extremity deep venous system is examined utilizing real time linear array sonog grace with graded compression, doppler sonography and color-flow sonography. VESSELS IMAGED: Common Femoral Vein Deep Femoral Vein Greater Saphenous Vein * Femoral Vein Popliteal Vein Small Saphenous Vein * Proximal Calf Veins (* superficial vessels) Right Leg: Appears negative for DVT Left Leg: Appears negative for DVT IMPRESSION: No evidence of bilateral lower extremity DVT.
[2020-12-10 20:10] LABS: Glucose,Whole Blood 184 mg/dL (75-99)
[2020-12-10] MEDS: MONTELUKAST 10 MG TAB PO SCH (20:52)
[2020-12-10] MEDS: INSULIN DETEMIR (LEVEMIR) 100 UNIT/ML SYR SQ SCH (20:52)
[2020-12-10] MEDS: ATORVASTATIN 40 MG TAB PO SCH (20:52)
[2020-12-11 07:06] LABS: Glucose,Whole Blood 96 mg/dL (75-99)
[2020-12-11] MEDS: CALCIUM ACETATE 667 MG TAB PO SCH ×3 (07:14→17:31)
[2020-12-11] MEDS: LEVOTHYROXINE 88 MCG TAB PO SCH (07:14)
[2020-12-11] MEDS: INSULIN ASPART (NovoLOG) 100 UNIT/ML VIAL SQ SCH ×7 (07:17→21:27)
[2020-12-11] MEDS: HEPARIN SODIUM,PORCINE/PF 5,000 UNIT/0.5 ML SYRINGE SQ SCH ×3 (08:01→23:57)
[2020-12-11] MEDS: ASPIRIN 81 MG PO SCH (08:01)
[2020-12-11] MEDS: CLOPIDOGREL 75 MG TAB PO SCH (08:02)
[2020-12-11] MEDS: DOCUSATE 100 MG CAP PO SCH ×2 (08:05→21:27)
[2020-12-11] MEDS: DULoxetine HCL 60 MG CAPSULE.DR PO SCH (08:05)
[2020-12-11] MEDS: FUROSEMIDE 10 MG/ML 4 ML VIAL IV SCH (08:05)
[2020-12-11] MEDS: PANTOPRAZOLE 40 MG TABLET PO SCH (08:06)
[2020-12-11] MEDS: ISOSORBIDE MONONITRATE ER 30 MG TAB.ER.24H PO SCH (08:06)
[2020-12-11 08:52] LABS: Magnesium 2.1 mg/dL (1.6-2.3); Potassium 3.9 mmol/L (3.5-5.1)
--- NOTE | 2020-12-11 08:52 | P.PN ---
Subjective Patient is seen in follow-up for acute kidney injury on chronic kidney disease. Renal function stable as of yesterday. Maintained on IV Lasix. Urine output improved. No evidence of urinary retention. Denies chest pain or shortness of breath. Vital signs are stable. General: The patient appeared well nourished and normally developed. HEENT: Head exam is unremarkable. Neck is without jugular venous distension. LUNGS: Breath sounds decreased. HEART: Rate and Rhythm are regular. ABDOMEN: Soft, no distention. EXTREMITITES: No edema. Objective - Vital Signs Vital signs: Vital Signs Temp 97.9 F 12/11/20 07:58 Pulse 69 12/11/20 07:58 Resp 18 12/11/20 07:58 BP 149/76 12/11/20 07:58 Pulse Ox 94 L 12/11/20 07:58 Intake & Output 12/10/20 12/11/20 12/11/20 18:59 06:59 18:59 Intake Total 480 Output Total 1200 Balance 480 -1200 Weight 129.8 kg 130.2 kg Intake: Oral 480 Output: Urine 1200 Other: Voiding Method Bedside Commode Bedside Commode # Voids 2 2 - Labs CBC & Chem 7: 12/09/20 17:58 12/10/20 09:11 Labs: Abnormal Lab Results - Last 24 Hours (Table) 12/10/20 12/10/20 12/10/20 Range/Units 09:11 12:06 13:43 BUN 100 H (7-17) mg/dL Creatinine 3.46 H (0.52-1.04) mg/dL Glucose 119 H (74-99) mg/dL POC Glucose (mg/dL) 131 H (75-99) mg/dL Urine Appearance Cloudy H (Clear) Urine Protein Trace H (Negative) Ur Leukocyte Esterase Large H (Negative) Urine WBC 83 H (0-5) /hpf Urine WBC Clumps Moderate H (None) /hpf Urine Bacteria Many H (None) /hpf Urine Mucus Rare H (None) /hpf 12/10/20 12/10/20 Range/Units 16:56 20:09 BUN (7-17) mg/dL Creatinine (0.52-1.04) mg/dL Glucose (74-99) mg/dL POC Glucose (mg/dL) 209 H 184 H (75-99) mg/dL Urine Appearance (Clear) Urine Protein (Negative) Ur Leukocyte Esterase (Negative) Urine WBC (0-5) /hpf Urine WBC Clumps (None) /hpf Urine Bacteria (None) /hpf Urine Mucus (None) /hpf Assessment and Plan Plan: Assessment: 1. Acute kidney injury secondary to ATN secondary to cardiorenal syndrome. Creatinine stable at 3.46 as of yesterday. Recent ultrasound revealed no evidence of hydronephrosis. 2. Acute on chronic systolic CHF with ejection fraction of 40-45% with moderate mitral regurgitation. 3. Chronic kidney disease stage IV secondary to diabetic kidney disease with baseline creatinine in the range of 2-2.4. 4. Diabetes mellitus. 5. Lower extremity edema. Improved. 6. Chronic kidney disease mineral bone disease maintained on PhosLo. 7. Hypertension with chronic kidney disease. Stable. Plan: Maintain IV Lasix for another 24 hours. No evidence of urinary retention. Avoid nephrotoxins. Continue to monitor renal function and urine output. Morning labs pending.
[2020-12-11 11:41] LABS: Glucose,Whole Blood 132 mg/dL (75-99)
--- NOTE | 2020-12-11 14:08 | P.PN ---
Subjective Progress Note Date: 12/11/20 HISTORY OF PRESENT ILLNESS: This is a pleasant 65-year-old female past medical history significant for coronary artery disease s/p PCI RCA and LAD most recently the LAD was done in 2018, most recent cardiac catheterization was performed in August of , medical therapy was advised hypertension, dyslipidemia, diabetes mellitus, COPD and morbid obesity. She has followed in the office with Dr. Earl in the past, however has not been to the office since 2019 due to financial constraints. She presented to the hospital on this occasion with complaints of a lower extremity swelling, left leg greater than the right, she's also been quite fatigued, experiencing some PND and orthopnea. She states that the symptoms have been worsening over the past 3 days. She denies any chest discomfort. Patient states that she does weigh herself daily and has noticed a 7 pound weight gain. Patient does have a history of systolic congestive heart failure with documented ejection fraction of 40-45% with moderate mitral regurgitation. Her chest x-ray on this presentation revealed no evidence of fluid overload. Blood pressure 118/54, heart rate in the 60s, 97% on room air. Blood cell count 8.0, hemoglobin 10.3, platelet count 161. Sodium 140, potassium 4.4, BUN 99, creatinine 3.4. BNP level 2960, at the time of her admission in 2019 her BNP level was 22,000. Patient has been seen in consultation by nephrology who she follows as an outpatient, they increased her Lasix dose and have requested a bladder scan. 12/11/2020 Patient examined this morning. Patient is sitting up in the chair. Patient states she is feeling better. She remains on IV Lasix per nephrology. Patient has been ambulate into the bathroom without difficulty. Creatinine 3.62. BUN 90. Fluid balance over the last 24 hours is -720 mL. PHYSICAL EXAM: VITAL SIGNS: Reviewed. GENERAL: Well-developed in no acute distress. NECK: Supple. No JVD or thyromegaly LUNGS: Respirations even and unlabored. Lungs diminished bilaterally. HEART: Regular rate and rhythm. S1 and S2 heard. Systolic murmur noted. EXTREMITIES: Normal range of motion. No clubbing or cyanosis. Peripheral pulses intact. Trace bilateral lower extremity edema ASSESSMENT: Acute exacerbation of chronic systolic heart failure Acute kidney injury Chronic kidney disease Hypertension Diabetes Moderate mitral regurgitation PLAN: Obtain 2-D echo to assess cardiac structure and function Continue current cardiac medications Continue IV Lasix per nephrology Daily weight Monitor I&O Monitor kidney function Further recommendations pending patient's course Nurse practitioner note has been reviewed by physician. Signing provider agrees with the documented findings, assessment, and plan of care. Objective - Vital Signs Vital signs: Vital Signs Temp 97.6 F 12/11/20 11:54 Pulse 64 12/11/20 11:54 Resp 18 12/11/20 11:54 BP 128/69 12/11/20 11:54 Pulse Ox 93 L 12/11/20 11:54 Intake & Output 12/10/20 12/11/20 12/11/20 18:59 06:59 18:59 Intake Total 480 720 Output Total 1200 Balance 480 -1200 720 Weight 129.8 kg 130.2 kg Intake: Oral 480 720 Output: Urine 1200 Other: Voiding Method Bedside Commode Bedside Commode Bedside Commode # Voids 2 2 1 - Labs CBC & Chem 7: 12/09/20 17:58 12/11/20 08:11 Labs: Abnormal Lab Results - Last 24 Hours (Table) 12/10/20 12/10/20 12/10/20 Range/Units 12:06 16:56 20:09 BUN (7-17) mg/dL Creatinine (0.52-1.04) mg/dL Glucose (74-99) mg/dL POC Glucose (mg/dL) 209 H 184 H (75-99) mg/dL Urine Appearance Cloudy H (Clear) Urine Protein Trace H (Negative) Ur Leukocyte Esterase Large H (Negative) Urine WBC 83 H (0-5) /hpf Urine WBC Clumps Moderate H (None) /hpf Urine Bacteria Many H (None) /hpf Urine Mucus Rare H (None) /hpf 12/11/20 12/11/20 Range/Units 08:11 11:40 BUN 90 H (7-17) mg/dL Creatinine 3.62 H (0.52-1.04) mg/dL Glucose 115 H (74-99) mg/dL POC Glucose (mg/dL) 132 H (75-99) mg/dL Urine Appearance (Clear) Urine Protein (Negative) Ur Leukocyte Esterase (Negative) Urine WBC (0-5) /hpf Urine WBC Clumps (None) /hpf Urine Bacteria (None) /hpf Urine Mucus (None) /hpf
[2020-12-11 16:43] LABS: Glucose,Whole Blood 94 mg/dL (75-99)
--- NOTE | 2020-12-11 18:08 | P.PN ---
Subjective This is a pleasant 65 years old female with past medical history of coronary artery disease status post stent placement, chronic heart failure, diabetes mellitus, hypertension, hyperlipidemia, rheumatoid arthritis, sleep apnea with CPAP/BiPAP, hypothyroidism with history of thyroid cancer status post surgery, history of Ashish disease. History of GI bleed. She has recent cardiac cath about 3 months ago and at that time she has patent coronary arteries and job printer apprentice recommended continue with medical management. Her PCP is Dr. Baca. Her job printer apprentice S Dr. Earl. Her lead java programmer is Dr. Spencer. Also she follows with her stove mechanic for rheumatoid arthritis This time patient presents because of dyspnea for 3 days. Associated with bilateral feet swelling more on the left side to the degree that she cannot put her shoes on. She denies chest pain or coughing. No abdominal or urinary complaints. She denies headache or weakness or numbness. She has chronic back pain for 3 months, her pain mainly in the right lower back, status post back surgery about 7 years ago at present in hospital. She denies smoking, alcohol or illicit drugs. Patient is not depressed. She is hemodynamically stable and she is saturating 96% on room air Creatinine is elevated at 3.4 upon admission with baseline of 1.7-2.4 Echocardiogram showing ejection fraction of 45-50% 12/11/2020 Patient is breathing quietly. Denies chest pain. No other complaints. She thinks her dyspnea is better and her bilateral leg swelling is better. Vitals are stable. Creatinine is stable 3.4-3.6. Baseline 2.4, patient at baseline has CK D stage IV. Respite Care Provider recommended to continue with IV Lasix 40 mg twice daily. We'll keep monitoring creatinine and electrolytes as well as input and output. Echocardiogram is ordered Continue with home dose of aspirin 81 mg and insulin. Objective - Vital Signs Vital signs: Vital Signs Temp 97.9 F 12/11/20 16:00 Pulse 70 12/11/20 16:00 Resp 18 12/11/20 16:00 BP 135/60 12/11/20 16:00 Pulse Ox 94 L 12/11/20 16:00 Intake & Output 12/10/20 12/11/20 12/11/20 18:59 06:59 18:59 Intake Total 480 720 Output Total 1200 Balance 480 -1200 720 Weight 129.8 kg 130.2 kg Intake: Oral 480 720 Output: Urine 1200 Other: Voiding Method Bedside Commode Bedside Commode Bedside Commode # Voids 2 2 1 - Exam GENERAL: The patient is alert and oriented x3, not in any acute distress. Well developed, well nourished. HEENT: Pupils are round and equally reacting to light. EOMI. No scleral icterus. No conjunctival pallor. Normocephalic, atraumatic. No pharyngeal erythema. No thyromegaly. CARDIOVASCULAR: S1 and S2 present. No murmurs, rubs, or gallops. PULMONARY: Chest is clear to auscultation, no wheezing or crackles. ABDOMEN: Soft, nontender, nondistended, normoactive bowel sounds. No palpable organomegaly. MUSCULOSKELETAL: No joint swelling or deformity. -EXTREMITIES: No cyanosis, clubbing, or . Bilateral leg swelling NEUROLOGICAL: Gross neurological examination did not reveal any focal deficits. SKIN: No rashes. no petechiae. - Labs CBC & Chem 7: 12/09/20 17:58 12/11/20 08:11 Labs: Abnormal Lab Results - Last 24 Hours (Table) 12/10/20 12/11/20 12/11/20 Range/Units 20:09 08:11 11:40 BUN 90 H (7-17) mg/dL Creatinine 3.62 H (0.52-1.04) mg/dL Glucose 115 H (74-99) mg/dL POC Glucose (mg/dL) 184 H 132 H (75-99) mg/dL Assessment and Plan Assessment: Acute on systolic chronic CHF Bilateral leg swelling secondary to above, rule out clotting disease Acute kidney injury and CKD, mostly cardiorenal syndrome Chronic kidney disease, stage III Diabetes mellitus Hypertension Hyperlipidemia History of rheumatoid arthritis History of sleep apnea on CPAP/BiPAP History of thyroid cancer status post surgery, history of Ashish disease and hypothyroidism Summary of GI bleed She had a normal cardiac cath about 3 months ago Morbidly obese with BMI of 49.1 Plan: This is a pleasant 65 years old female who presents with CHF and AKA. Continue with iv Lasix. Follow-up recommendation by job printer apprentice and lead java programmer Follow-up echocardiogram Labs and medication were reviewed.. Continue same treatment. Continue with symptomatic treatment. Resume home medication. Monitor lytes and vitals. DVT and GI prophylaxis. Further recommendations depends on the clinical course of the patient DVT prophylaxis: Subcutaneous heparin GI Prophylaxis: Pepcid PT/OT: Pending Prognosis is guarded Dr. Baca will resume the care of the patient tomorrow
[2020-12-11] MEDS ORDERED: Potassium Replacement Protocol 1 EACH MISC MISCELLANE PRN (18:10)
[2020-12-11] MEDS ORDERED: POTASSIUM CHLORIDE ER 20 MEQ TAB.ER PO SCH (19:00)
[2020-12-11 20:25] LABS: Glucose,Whole Blood 159 mg/dL (75-99)
[2020-12-11] MEDS: ATORVASTATIN 40 MG TAB PO SCH (21:27)
[2020-12-11] MEDS: INSULIN DETEMIR (LEVEMIR) 100 UNIT/ML SYR SQ SCH (21:27)
[2020-12-11] MEDS: MONTELUKAST 10 MG TAB PO SCH (21:27)
[2020-12-12] MEDS: DICLOFENAC SODIUM GEL 100 GM TUBE TOPICAL PRN ×2 (03:42→20:44)
[2020-12-12] MEDS: LEVOTHYROXINE 88 MCG TAB PO SCH (06:55)
[2020-12-12] MEDS: CALCIUM ACETATE 667 MG TAB PO SCH ×3 (06:55→15:53)
[2020-12-12 07:26] LABS: Glucose,Whole Blood 158 mg/dL (75-99)
[2020-12-12] MEDS: PANTOPRAZOLE 40 MG TABLET PO SCH (08:16)
[2020-12-12] MEDS: ASPIRIN 81 MG PO SCH (08:16)
[2020-12-12] MEDS: DOCUSATE 100 MG CAP PO SCH ×2 (08:16→20:42)
[2020-12-12] MEDS: CLOPIDOGREL 75 MG TAB PO SCH (08:16)
[2020-12-12] MEDS: DULoxetine HCL 60 MG CAPSULE.DR PO SCH (08:16)
[2020-12-12] MEDS: ISOSORBIDE MONONITRATE ER 30 MG TAB.ER.24H PO SCH (08:16)
[2020-12-12] MEDS: HEPARIN SODIUM,PORCINE/PF 5,000 UNIT/0.5 ML SYRINGE SQ SCH ×3 (08:16→23:57)
[2020-12-12] MEDS: INSULIN ASPART (NovoLOG) 100 UNIT/ML VIAL SQ SCH ×7 (08:16→20:45)
[2020-12-12] MEDS: FUROSEMIDE 40 MG TAB PO SCH ×2 (08:16→15:53)
--- NOTE | 2020-12-12 09:08 | P.PN ---
Subjective Patient is seen in follow-up for acute kidney injury on chronic kidney disease. Creatinine 3.6 to as of yesterday. Maintained on oral Lasix now. Good urine output. Denies chest pain or shortness of breath. Blood pressure stable. Vital signs are stable. General: The patient appeared well nourished and normally developed. HEENT: Head exam is unremarkable. Neck is without jugular venous distension. LUNGS: Breath sounds decreased. HEART: Rate and Rhythm are regular. ABDOMEN: Soft, no distention. EXTREMITITES: No edema. Objective - Vital Signs Vital signs: Vital Signs Temp 99 F 12/12/20 08:10 Pulse 74 12/12/20 08:10 Resp 18 12/12/20 08:10 BP 136/77 12/12/20 08:10 Pulse Ox 93 L 12/12/20 08:10 Intake & Output 12/11/20 12/12/20 12/12/20 18:59 06:59 18:59 Intake Total 960 Output Total 400 Balance 960 -400 Weight 128 kg Intake: Oral 960 Output: Urine 400 Other: Voiding Method Bedside Commode Toilet # Voids 1 3 - Labs CBC & Chem 7: 12/09/20 17:58 12/11/20 08:11 Labs: Abnormal Lab Results - Last 24 Hours (Table) 12/11/20 12/11/20 12/12/20 Range/Units 11:40 20:24 07:25 POC Glucose (mg/dL) 132 H 159 H 158 H (75-99) mg/dL Microbiology - Last 24 Hours (Table) 12/10/20 12:06 Urine Culture - Preliminary Urine,Clean Catch Assessment and Plan Plan: Assessment: 1. Acute kidney injury secondary to ATN secondary to cardiorenal syndrome. Creatinine stable at 3.62 as of yesterday. Recent ultrasound revealed no evidence of hydronephrosis. 2. Acute on chronic systolic CHF with ejection fraction of 40-45% with moderate mitral regurgitation. 3. Chronic kidney disease stage IV secondary to diabetic kidney disease with baseline creatinine in the range of 2-2.4. 4. Diabetes mellitus. 5. Lower extremity edema. Improved. 6. Chronic kidney disease mineral bone disease maintained on PhosLo. 7. Hypertension with chronic kidney disease. Stable. Plan: Maintain oral Lasix 40 mg twice daily. No evidence of urinary retention. Avoid nephrotoxins. Continue to monitor renal function and urine output. Morning labs pending. Follow-up echocardiogram.
[2020-12-12 10:01] LABS: Calcium 8.9 mg/dL (8.4-10.2); Potassium 4.1 mmol/L (3.5-5.1)
[2020-12-12 10:02] LABS: Magnesium 2.1 mg/dL (1.6-2.3)
--- NOTE | 2020-12-12 11:46 | ECHOF ---
Referral Reason:CHF MEASUREMENTS -------- HEIGHT: 152.4 cm WEIGHT: 127.9 kg BP: RVIDd: 3.2 cm (< 3.3) IVSd: 1.2 cm (0.6 - 1.1) LVIDd: 5.4 cm (3.9 - 5.3) LVPWd: 1.9 cm (0.6 - 1.1) IVSs: 1.4 cm LVIDs: 4.7 cm LVPWs: 1.8 cm LAESV Index (A-L): 39.57 ml/m Ao Diam: 3.0 cm (2.0 - 3.7) AV Cusp: 1.3 cm (1.5 - 2.6) LA Diam: 4.4 cm (2.7 - 3.8) MV E Marlon: 0.56 m/s MV DecT: 271 ms MV A Marlon: 1.22 m/s MV E/A Ratio: 0.46 RAP: 5.00 mmHg RVSP: 15.06 mmHg FINDINGS -------- Sinus rhythm. This was a technically adequate study. Morbid Obesity The left ventricular size is normal. There is mild concentric left ventricular hypertrophy. Overa ll left ventricular systolic function is low-normal with, an EF between 50 - 55 %. The right ventricle is normal in size. LA is moderately dilated 34-39 ml/m2 The right atrial size is normal. The aortic valve was not well visualized. There is mild aortic regurgitation. The mitral valve leaflets are mildly thickened. Mild mitral annular calcification present. Mild-t o-moderate mitral regurgitation is present. Mild tricuspid regurgitation present. Right ventricular systolic pressure is normal at < 35 mmHg. The pulmonic valve was not well visualized. The aortic root size is normal. There is a small, generalized pericardial effusion present. CONCLUSIONS -------- 1. The left ventricular size is normal. 2. There is mild concentric left ventricular hypertrophy. 3. Overall left ventricular systolic function is low-normal with, an EF between 50 - 55 %. 4. The right ventricle is normal in size. 5. LA is moderately dilated 34-39 ml/m2 6. The right atrial size is normal. 7. The aortic valve was not well visualized. 8. There is mild aortic regurgitation. 9. The mitral valve leaflets are mildly thickened. 10. Mild mitral annular calcification present. 11. [id number] mitral regurgitation is present. 12. Mild tricuspid regurgitation present. 13. The pulmonic valve was not well visualized. 14. The aortic root size is normal. 15. There is a small, generalized pericardial effusion present. BRIDGE WORK[employer] APPRENTICE: Jodie Vegas RDCS
[2020-12-12 12:34] LABS: Glucose,Whole Blood 117 mg/dL (75-99)
[2020-12-12] MEDS: carvediloL 12.5 MG TAB PO SCH ×2 (13:05→15:53)
[2020-12-12] MEDS: amLODIPine 5 MG TAB PO SCH (13:05)
--- NOTE | 2020-12-12 14:26 | P.PN ---
Subjective This is a pleasant 65-year-old female past medical history significant for coronary artery disease s/p PCI RCA and LAD most recently the LAD was done in 2018, most recent cardiac catheterization was performed in August of , medical therapy was advised hypertension, dyslipidemia, diabetes mellitus, COPD and morbid obesity. She has followed in the office with Dr. Earl in the past, however has not been to the office since 2019 due to financial constraints. She presented to the hospital on this occasion with complaints of a lower extremity swelling, left leg greater than the right, she's also been quite fatigued, experiencing some PND and orthopnea. Patient does have a history of systolic congestive heart failure with documented ejection fraction of 40-45% with moderate mitral regurgitation. Her chest x-ray on this presentation revealed no evidence of fluid overload. Sodium 140, potassium 4.4, BUN 99, creatinine 3.4. BNP level 2960, at the time of her admission in 2019 her BNP level was 22,000. Patient has been seen in consultation by nephrology who she follows as an outpatient, they increased her Lasix dose and have requested a bladder scan. Venous doppler negative for DVT. 12/12/2020 Patient examined this morning. Patient is sitting up in the chair. Patient states she is feeling better. She denies shortness of breath, chest pain. Her lower extremity edema has improved. She was switched to PO Lasix per nephrolgoy. Patient has been ambulate into the bathroom without difficulty. Echocardiogram revealed EF of 50-55%, LA is moderately dilated, mild aortic regurgitation, mild to moderate regurgitation, mild tricuspid regurgitation, small generalized pericardial effusion. Blood pressure 126 with 55, heart rate 72, afebrile maintaining oxygen saturation is on room air. Laboratory data reviewed, sodium 141, potassium 4.1, BUNs 9, serum creatinine 3.1, magnesium 2.1. She will he maintained on amlodipine 5 mg daily, aspirin 81 mg daily, atorvastatin 40 mg daily, carvedilol 12.5 mg twice a day, Plavix 75 mg daily, Lasix 40 mg by mouth twice a day, Imdur 30 mg daily PHYSICAL EXAM: VITAL SIGNS: Reviewed. GENERAL: Well-developed in no acute distress. NECK: Supple. No JVD or thyromegaly LUNGS: Respirations even and unlabored. Lungs diminished bilaterally. HEART: Regular rate and rhythm. S1 and S2 heard. Systolic murmur noted. EXTREMITIES: Normal range of motion. No clubbing or cyanosis. Peripheral pulses intact. Trace bilateral lower extremity edema ASSESSMENT: Acute exacerbation of chronic diastolic heart failure Acute on chronic kidney disease - nephrology following Hypertension Type 2 Diabetes PLAN: Restarted patient's home carvedilol and amlodipine. We will continue current cardiac medications. From cardiology perspective, patient can be discharged home with follow up with Dr. Earl in about 2 weeks. Nurse practitioner note has been reviewed by physician. Signing provider agrees with the documented findings, assessment, and plan of care. Objective - Vital Signs Objective - Vital Signs Vital signs: Vital Signs Temp 98.3 F 12/12/20 13:00 Pulse 72 12/12/20 13:00 Resp 18 12/12/20 13:00 BP 126/55 12/12/20 13:00 Pulse Ox 93 L 12/12/20 13:00 Intake & Output 12/11/20 12/12/20 12/12/20 18:59 06:59 18:59 Intake Total 960 800 Output Total 400 Balance 960 -400 800 Weight 128 kg Intake: Oral 960 800 Output: Urine 400 Other: Voiding Method Bedside Commode Toilet Toilet # Voids 1 3 - Labs CBC & Chem 7: 12/09/20 17:58 12/12/20 08:49 Labs: Abnormal Lab Results - Last 24 Hours (Table) 12/11/20 12/12/20 12/12/20 Range/Units 20:24 07:25 08:49 Carbon Dioxide 32 H (22-30) mmol/L BUN 79 H (7-17) mg/dL Creatinine 3.17 H (0.52-1.04) mg/dL Glucose 141 H (74-99) mg/dL POC Glucose (mg/dL) 159 H 158 H (75-99) mg/dL 12/12/20 Range/Units 12:30 Carbon Dioxide (22-30) mmol/L BUN (7-17) mg/dL Creatinine (0.52-1.04) mg/dL Glucose (74-99) mg/dL POC Glucose (mg/dL) 117 H (75-99) mg/dL Microbiology - Last 24 Hours (Table) 12/10/20 12:06 Urine Culture - Preliminary Urine,Clean Catch
[2020-12-12 17:17] LABS: Glucose,Whole Blood 138 mg/dL (75-99)
[2020-12-12 20:35] LABS: Glucose,Whole Blood 119 mg/dL (75-99)
[2020-12-12] MEDS: ATORVASTATIN 40 MG TAB PO SCH (20:42)
[2020-12-12] MEDS: INSULIN DETEMIR (LEVEMIR) 100 UNIT/ML SYR SQ SCH (20:42)
[2020-12-12] MEDS: MONTELUKAST 10 MG TAB PO SCH (20:42)
[2020-12-13] MEDS: CALCIUM ACETATE 667 MG TAB PO SCH (06:41)
[2020-12-13] MEDS: LEVOTHYROXINE 88 MCG TAB PO SCH (06:41)
[2020-12-13 07:33] LABS: Calcium 9.2 mg/dL (8.4-10.2); Magnesium 2.1 mg/dL (1.6-2.3); Potassium 3.8 mmol/L (3.5-5.1)
[2020-12-13 07:45] LABS: Glucose,Whole Blood 64 mg/dL (75-99)
--- NOTE | 2020-12-13 07:58 | P.DS ---
Providers Date of admission: 12/09/20 19:22 Attending physician: Jhonathan Baca Consults: 12/09/20 19:22 Consult Physician Routine Consulting Provider: Priyanka Maya Consult Reason/Comments: chf, arf Do you want consulting provider notified?: Yes Consult Physician Routine Consulting Provider: Merary Spencer Consult Reason/Comments: arf Do you want consulting provider notified?: Yes Primary care physician: Jhonathan Baca [facility] Course: This is a history of physical on a 65-year-old diabetic agent who came in with acute heart failure. Element of cardiac myopathy. The patient was stabilized with appropriate diuresis and appropriate medication changes. Cardiology was consulted. After appropriate diuresis her breathing became stable. She had no new complaints on discharge. The patient is voiding without difficulty and ambulating per she has some visual distortion which is not new for her. She is stable for home with home support we will sent home with home health. No overt chest pain or dyspnea on exertion is now stated. Patient Condition at Discharge: Stable Plan - Discharge Summary Discharge Rx Participant: No New Discharge Prescriptions: New Furosemide [Lasix] 40 mg PO BID@0900,1600 #60 tab Continue Insulin Aspart [NovoLOG Flexpen] 5 unit SQ AC-BID Calcium Acetate [PhosLo] 667 mg PO TID@0800,1399,1999 Montelukast [Singulair] 10 mg PO HS Levothyroxine Sodium [Synthroid] 175 mcg PO DAILY@0600 Fluticasone Propionate [Flovent Hfa 110 mcg] 2 puff INHALATION RT-BID Ferrous Sulfate [Iron (65 MG Elemental)] 325 mg PO DAILY@1700 Insulin Degludec [Tresiba] 40 units SQ HS Pantoprazole Sodium [Protonix] 40 mg PO DAILY Sucralfate [Carafate] 1 gm PO TID-W/MEALS allopurinoL [Zyloprim] 300 mg PO DAILY Aspirin 81 mg PO DAILY #30 chew Isosorbide Mononitrate ER [Imdur] 30 mg PO DAILY #30 tab.er.24h Nitroglycerin Sl Tabs [Nitrostat] 0.4 mg SUBLINGUAL Q5M PRN #25 tab PRN Reason: Chest Pain Clopidogrel [Plavix] 75 mg PO DAILY #30 tab Gabapentin [Neurontin] 400 mg PO TID@0800,1399,1999 #9 cap Insulin Aspart [NovoLOG Flexpen] 6 units SQ AC-LUNCH calcitrioL [Calcitriol] 0.25 mcg PO Q7D DULoxetine HCL [Cymbalta] 60 mg PO DAILY Atorvastatin [Lipitor] 40 mg PO HS Diclofenac Sodium Gel [Voltaren Gel] 4 gm TOPICAL QID PRN PRN Reason: joint pain Cholecalciferol [Vitamin D3 (25 Mcg = 1000 Iu)] 50 mcg PO DAILY amLODIPine [Norvasc] 5 mg PO DAILY Albuterol Sulfate [Ventolin HFA] 2 puff INHALATION RT-Q6H PRN PRN Reason: Shortness Of Breath carvediloL [Coreg*] 12.5 mg PO BID@0800,1700 #60 tab Vitafusion Power Of C Gummies 3 cap PO DAILY Docusate [Colace] 100 mg PO BID Sodium Bicarbonate Tab 650 mg PO TID@0800,1399,1999 Discontinued Furosemide [Lasix] 20 mg PO DAILY@0800 Discharge Medication List Calcium Acetate [PhosLo] 667 mg PO TID@0800,1399,199911/21/17 [History] Ferrous Sulfate [Iron (65 MG Elemental)] 325 mg PO DAILY@1700 11/21/17 [History] Fluticasone Propionate [Flovent Hfa 110 mcg] 2 puff INHALATION RT-BID 11/21/17 [History] Insulin Aspart [NovoLOG Flexpen] 5 unit SQ AC-BID 11/21/17 [History] Levothyroxine Sodium [Synthroid] 175 mcg PO DAILY@0600 11/21/17 [History] Montelukast [Singulair] 10 mg PO HS 11/21/17 [History] Insulin Degludec [Tresiba] 40 units SQ HS 08/19/18 [History] Pantoprazole Sodium [Protonix] 40 mg PO DAILY 08/19/18 [History] Sucralfate [Carafate] 1 gm PO TID-W/MEALS 01/04/19 [History] allopurinoL [Zyloprim] 300 mg PO DAILY 01/04/19 [History] Aspirin 81 mg PO DAILY #30 chew 01/13/19 [Rx] Clopidogrel [Plavix] 75 mg PO DAILY #30 tab 01/13/19 [Rx] Gabapentin [Neurontin] 400 mg PO TID@0800,1399,1999 #9 cap 01/13/19 [Rx] Isosorbide Mononitrate ER [Imdur] 30 mg PO DAILY #30 tab.er.24h 01/13/19 [Rx] Nitroglycerin Sl Tabs [Nitrostat] 0.4 mg SUBLINGUAL Q5M PRN #25 tab 01/13/19 [Rx] Atorvastatin [Lipitor] 40 mg PO HS 09/08/20 [History] DULoxetine HCL [Cymbalta] 60 mg PO DAILY 09/08/20 [History] Insulin Aspart [NovoLOG Flexpen] 6 units SQ AC-LUNCH 09/08/20 [History] calcitrioL [Calcitriol] 0.25 mcg PO Q7D 09/08/20 [History] carvediloL [Coreg*] 12.5 mg PO BID@0800,1700 #60 tab 09/11/20 [Rx] Albuterol Sulfate [Ventolin HFA] 2 puff INHALATION RT-Q6H PRN 12/09/20 [History] Cholecalciferol [Vitamin D3 (25 Mcg = 1000 Iu)] 50 mcg PO DAILY 12/09/20 [History] Diclofenac Sodium Gel [Voltaren Gel] 4 gm TOPICAL QID PRN 12/09/20 [History] Docusate [Colace] 100 mg PO BID 12/09/20 [History] Sodium Bicarbonate Tab 650 mg PO TID@0800,1400,2000 12/09/20 [History] Vitafusion Power Of C Gummies 3 cap PO DAILY 12/09/20 [History] amLODIPine [Norvasc] 5 mg PO DAILY 12/09/20 [History] Furosemide [Lasix] 40 mg PO BID@0900,1600 #60 tab 12/13/20 [Rx] Follow up Appointment(s)/Referral(s): Yandel Earl MD [STAFF PHYSICIAN] - 2 Weeks Jhonathan Baca MD [Primary Care Provider] - 1-2 days Discharge Disposition: HOME SELF-CARE
--- NOTE | 2020-12-13 07:59 | P.PN ---
Subjective Progress Note Date: 12/12/20 Principal diagnosis: Congestive heart failure. This is a continue present on a 65-year-old white female essentially been for acute respiratory distress related to systolic congestive heart failure. Underlying history of cardiac myopathy. The patient states she feels much camilo r after significant diuresis. No voiding difficulties. Appreciate multiple consultants input. Objective - Vital Signs Vital signs: Vital Signs Temp 98.6 F 12/12/20 20:30 Pulse 70 12/13/20 04:15 Resp 20 12/13/20 04:15 BP 159/66 12/13/20 04:15 Pulse Ox 94 L 12/13/20 04:15 Intake & Output 12/12/20 12/13/20 12/13/20 18:59 06:59 18:59 Intake Total 1040 Output Total 350 770 Balance 690 -770 Weight 125.8 kg Intake: Oral 1040 Output: Urine 350 770 Other: Voiding Method Toilet Toilet # Voids 1 - Constitutional General appearance: Present: obese - EENT Eyes: Absent: abnormal pupil - Neck Neck: Absent: lymphadenopathy - Respiratory Respiratory: bilateral: diminished - Cardiovascular Rhythm: regular Heart sounds: normal: S1, S2 Abnormal Heart Sounds: Absent: S3 Gallop - Gastrointestinal General gastrointestinal: Present: soft. Absent: splenomegaly - Integumentary Integumentary Comment(s): Trace edema noted - Psychiatric Psychiatric: Present: A&O x's 3, appropriate affect - Labs CBC & Chem 7: 12/09/20 17:58 12/13/20 06:33 Labs: Abnormal Lab Results - Last 24 Hours (Table) 12/12/20 12/12/20 12/12/20 Range/Units 08:49 12:30 17:16 Carbon Dioxide 32 H (22-30) mmol/L BUN 79 H (7-17) mg/dL Creatinine 3.17 H (0.52-1.04) mg/dL Glucose 141 H (74-99) mg/dL POC Glucose (mg/dL) 117 H 138 H (75-99) mg/dL 12/12/20 12/13/20 12/13/20 Range/Units 20:33 06:33 07:43 Carbon Dioxide 35 H (22-30) mmol/L BUN 71 H (7-17) mg/dL Creatinine 2.86 H (0.52-1.04) mg/dL Glucose 55 L (74-99) mg/dL POC Glucose (mg/dL) 119 H 64 L (75-99) mg/dL Microbiology - Last 24 Hours (Table) 12/10/20 12:06 Urine Culture - Preliminary Urine,Clean Catch Gram Neg Bacilli Assessment and Plan (1) ARF (acute renal failure) Current Visit: Yes Status: Acute Code(s): N17.9 - ACUTE KIDNEY FAILURE, UNSPECIFIED SNOMED Code(s): 86464997 (2) CHF (congestive heart failure) Current Visit: Yes Status: Acute Code(s): I50.9 - HEART FAILURE, UNSPECIFIED SNOMED Code(s): 81396848 (3) Chronic renal failure Current Visit: No Status: Acute Code(s): N18.9 - CHRONIC KIDNEY DISEASE, UNSPECIFIED SNOMED Code(s): 99047396 (4) Diabetic neuropathy Current Visit: No Status: Acute Code(s): E11.40 - TYPE 2 DIABETES MELLITUS WITH DIABETIC NEUROPATHY, UNSP SNOMED Code(s): 278184305 (5) Malaise and fatigue Current Visit: No Status: Acute Code(s): R53.81 - OTHER MALAISE; R53.83 - OTHER FATIGUE SNOMED Code(s): 817047525 Plan: Continue current treatment. We'll wean to oral medication for diuresis. Check CMP in a.m. Anticipate discharge in next 24-48 hours
[2020-12-13 08:03] LABS: Glucose,Whole Blood 104 mg/dL (75-99)
[2020-12-13] MEDS: INSULIN ASPART (NovoLOG) 100 UNIT/ML VIAL SQ SCH ×2 (08:30)
[2020-12-13] MEDS: ISOSORBIDE MONONITRATE ER 30 MG TAB.ER.24H PO SCH (08:32)
[2020-12-13] MEDS: CLOPIDOGREL 75 MG TAB PO SCH (08:32)
[2020-12-13] MEDS: DULoxetine HCL 60 MG CAPSULE.DR PO SCH (08:32)
[2020-12-13] MEDS: ASPIRIN 81 MG PO SCH (08:32)
[2020-12-13] MEDS: HEPARIN SODIUM,PORCINE/PF 5,000 UNIT/0.5 ML SYRINGE SQ SCH (08:32)
[2020-12-13] MEDS: amLODIPine 5 MG TAB PO SCH (08:33)
[2020-12-13] MEDS: DOCUSATE 100 MG CAP PO SCH (08:33)
[2020-12-13] MEDS: FUROSEMIDE 40 MG TAB PO SCH (08:33)
[2020-12-13] MEDS: carvediloL 12.5 MG TAB PO SCH (08:33)
[2020-12-13] MEDS: PANTOPRAZOLE 40 MG TABLET PO SCH (08:33)
[2020-12-13 08:41] VITALS: BP 136/74; PULSE 79; RESP 18; TEMP 98.5
--- NOTE | 2020-12-13 09:54 | P.PN ---
Subjective Patient is seen in follow-up for acute kidney injury on chronic kidney disease. Renal function improving. Maintained on oral Lasix now. Good urine output. Denies chest pain or shortness of breath. Blood pressure stable. Wants to go home. Vital signs are stable. General: The patient appeared well nourished and normally developed. HEENT: Head exam is unremarkable. Neck is without jugular venous distension. LUNGS: Breath sounds decreased. HEART: Rate and Rhythm are regular. ABDOMEN: Soft, no distention. EXTREMITITES: No edema. Objective - Vital Signs Vital signs: Vital Signs Temp 98.5 F 12/13/20 08:30 Pulse 79 12/13/20 08:30 Resp 18 12/13/20 08:30 BP 136/74 12/13/20 08:30 Pulse Ox 92 L 12/13/20 08:30 Intake & Output 12/12/20 12/13/20 12/13/20 18:59 06:59 18:59 Intake Total 1040 293 Output Total 350 770 Balance 690 -770 293 Weight 125.8 kg Intake: Oral 1040 293 Output: Urine 350 770 Other: Voiding Method Toilet Toilet Toilet # Voids 1 - Labs CBC & Chem 7: 12/09/20 17:58 12/13/20 06:33 Labs: Abnormal Lab Results - Last 24 Hours (Table) 12/12/20 12/12/20 12/12/20 Range/Units 08:49 12:30 17:16 Carbon Dioxide 32 H (22-30) mmol/L BUN 79 H (7-17) mg/dL Creatinine 3.17 H (0.52-1.04) mg/dL Glucose 141 H (74-99) mg/dL POC Glucose (mg/dL) 117 H 138 H (75-99) mg/dL 12/12/20 12/13/20 12/13/20 Range/Units 20:33 06:33 07:43 Carbon Dioxide 35 H (22-30) mmol/L BUN 71 H (7-17) mg/dL Creatinine 2.86 H (0.52-1.04) mg/dL Glucose 55 L (74-99) mg/dL POC Glucose (mg/dL) 119 H 64 L (75-99) mg/dL 12/13/20 Range/Units 08:02 Carbon Dioxide (22-30) mmol/L BUN (7-17) mg/dL Creatinine (0.52-1.04) mg/dL Glucose (74-99) mg/dL POC Glucose (mg/dL) 104 H (75-99) mg/dL Microbiology - Last 24 Hours (Table) 12/10/20 12:06 Urine Culture - Preliminary Urine,Clean Catch Gram Neg Bacilli Assessment and Plan Plan: Assessment: 1. Acute kidney injury secondary to ATN secondary to cardiorenal syndrome. Renal function improving. Creatinine 2.86 today. Recent ultrasound revealed no evidence of hydronephrosis. 2. Acute on chronic diastolic CHF with mild to moderate mitral regurgitation. 3. Chronic kidney disease stage IV secondary to diabetic kidney disease with baseline creatinine in the range of 2-2.4. 4. Diabetes mellitus. 5. Lower extremity edema. Improved. 6. Chronic kidney disease mineral bone disease maintained on PhosLo. 7. Hypertension with chronic kidney disease. Stable. Plan: Maintain oral Lasix 40 mg twice daily. Avoid nephrotoxins. Continue to monitor renal function and urine output. Possibly going home today. Follow up outpatient in 1 week.
== END 2020-12-13 11:28 | disposition home or self-care (01) | DRG 291 ==
LOC: EC 17:21 → 3SCARD 19:22
PROVIDERS: ADMIT Family Medicine; ATTEND Family Medicine
DX: I13.0 Hypertensive heart and chronic kidney disease with heart failure and stage 1 through stage 4 chronic kidney disease, or unspecified chronic kidney disease (principal); I50.43 Acute on chronic combined systolic (congestive) and diastolic (congestive) heart failure; N17.0 Acute kidney failure with tubular necrosis; I31.3 Pericardial effusion (noninflammatory); Z68.42 Body mass index [BMI] 45.0-49.9, adult; N18.4 Chronic kidney disease, stage 4 (severe); Z20.822 Contact with and (suspected) exposure to COVID-19; J44.9 Chronic obstructive pulmonary disease, unspecified; I25.10 Atherosclerotic heart disease of native coronary artery without angina pectoris; H54.8 Legal blindness, as defined in USA; I25.2 Old myocardial infarction; E11.22 Type 2 diabetes mellitus with diabetic chronic kidney disease; E11.42 Type 2 diabetes mellitus with diabetic polyneuropathy; E66.01 Morbid (severe) obesity due to excess calories; E78.5 Hyperlipidemia, unspecified; F32.9 Major depressive disorder, single episode, unspecified; F41.9 Anxiety disorder, unspecified; I34.0 Nonrheumatic mitral (valve) insufficiency; M06.9 Rheumatoid arthritis, unspecified; M89.8X9 Other specified disorders of bone, unspecified site; Z95.5 Presence of coronary angioplasty implant and graft; Z86.711 Personal history of pulmonary embolism; Z85.850 Personal history of malignant neoplasm of thyroid; Z83.3 Family history of diabetes mellitus; Z82.5 Family history of asthma and other chronic lower respiratory diseases; Z82.0 Family history of epilepsy and other diseases of the nervous system; Z79.899 Other long term (current) drug therapy; Z79.890 Hormone replacement therapy; Z79.82 Long term (current) use of aspirin; Z79.51 Long term (current) use of inhaled steroids; Z79.4 Long term (current) use of insulin; Z79.02 Long term (current) use of antithrombotics/antiplatelets; E89.0 Postprocedural hypothyroidism
CPT/HCPCS: 36415; 71046; 80048; 80053; 81001; 83605; 83735; 83880; 84484; 85025; 85610; 85730; 87077; 87086; 87186; 87635; 93005; 93306; 93970; 96374; 99285

== ENCOUNTER 2021-11-03 23:34 | Inpatient (IN) | payer MEDICARE, OTHER ==
[2021-11-04 00:45] LABS: Albumin 3.2 g/dL (3.5-5.0); Calcium 8.5 mg/dL (8.4-10.2); Magnesium 2.6 mg/dL (1.6-2.3); Potassium 4.1 mmol/L (3.5-5.1); Total Bilirubin 0.4 mg/dL (0.2-1.3); Total Protein 6.1 g/dL (6.3-8.2)
[2021-11-04 00:47] LABS: Basophils % (A) 0 %; Eosinophils # (A) 0.3 k/uL (0-0.7); Eosinophils % (A) 4 %; HCT 24.6 % (34.0-46.0); Lymphocytes # (A) 1.4 k/uL (1.0-4.8); Lymphocytes % (A) 20 %; MCH 31.2 pg (25.0-35.0); MCHC 32.4 g/dL (31.0-37.0); MCV 96.2 fL (80.0-100.0); Mean Platelet Volume 8.8; Monocytes # (A) 0.5 k/uL (0-1.0); Monocytes % (A) 8 %; Neutrophils # (A) 4.7 k/uL (1.3-7.7); Neutrophils % (A) 67 %; Platelet Count 162 k/uL (150-450); RBC 2.56 m/uL (3.80-5.40)
--- NOTE | 2021-11-04 00:47 | XR ---
EXAMINATION TYPE: XR chest 2V DATE OF EXAM: 11/04/2021 COMPARISON: 12/09/2020 HISTORY: Short of breath. Chest pain TECHNIQUE: 2 views FINDINGS: Heart is enlarged. No heart failure seen. There is a right shoulder prosthesis. There are c hest leads. There is some blunting of the posterior costophrenic angles.. There are no hilar masses. IMPRESSION: Cardiomegaly. There are new small pleural effusions compared to old exam. No obvious hear t failure.
--- NOTE | 2021-11-04 00:59 | ED ---
General Adult HPI - General Chief complaint: Recheck/Abnormal Lab/Rx Stated complaint: abnormal labs Time Seen by Provider: 11/03/21 23:37 Source: patient, EMS Mode of arrival: EMS Limitations: no limitations - History of Present Illness Initial comments: This patient is a 66-year-old woman sent here from [facility] as labs drawn there earlier today had revealed an increase in her BUN and creatinine. The patient does have chronic kidney disease, but the numbers noted to be worsened. Patient transferred for further evaluation and treatment. When I interview the patient, she is denying any new complaints. No chest pain or dyspnea. No palpitations. She has not noted any new swelling of her legs. -: hour(s) Severity scale (1-10): 0 Improves with: none Worsens with: none Associated Symptoms: denies other symptoms - Related Data Home Medications Medication Instructions Recorded Confirmed Calcium Acetate [PhosLo] 667 mg PO TID@0800,1200,1700 11/21/17 11/04/21 Ferrous Sulfate [Iron (65 MG 325 mg PO DAILY@0800 11/21/17 11/04/21 Elemental)] Insulin Aspart [NovoLOG Flexpen] See Protocol SQ ACHS 11/21/17 11/04/21 Levothyroxine Sodium [Synthroid] 175 mcg PO DAILY@0600 11/21/17 11/04/21 Montelukast [Singulair] 10 mg PO HS@2100 11/21/17 11/04/21 Atorvastatin [Lipitor] 40 mg PO HS@2100 09/08/20 11/04/21 Cholecalciferol [Vitamin D3 (25 50 mcg PO DAILY@1700 12/09/20 11/04/21 Mcg = 1000 Iu)] Acetaminophen Tab [Tylenol] 650 mg PO Q4H PRN 11/04/21 11/04/21 Albuterol Nebulized [Ventolin 2.5 mg INHALATION RT-Q6H PRN 11/04/21 11/04/21 Nebulized] Aspirin EC [Ecotrin Low Dose] 81 mg PO DAILY@17011/04/21 11/04/21 Budesonide [Pulmicort] 0.5 mg INHALATION BID@0700,1900 11/04/21 11/04/21 Carvedilol [Coreg] 25 mg PO BID@0800,1700 11/04/21 11/04/21 Clopidogrel [Plavix] 75 mg PO DAILY@0800 11/04/21 11/04/21 Epoetin Russ [Procrit] 10,000 unit SQ DIRECTED 11/04/21 11/04/21 Famotidine [Pepcid] 20 mg PO DAILY@0800 11/04/21 11/04/21 Ipratropium-Albuterol Nebulize 3 ml INHALATION RT-Q6H PRN 11/04/21 11/04/21 [Duoneb 0.5 mg-3 mg/3 ml Soln] Melatonin 3 mg PO HS@2100 11/04/21 11/04/21 Sodium Bicarbonate 325 mg PO DAILY@0800 11/04/21 11/04/21 Torsemide [Demadex] 20 mg PO DAILY@0800 11/04/21 11/04/21 Previous Rx's Medication Instructions Recorded Allopurinol [Zyloprim] 100 mg PO DAILY@0800 #0 11/08/21 DULoxetine HCL [Cymbalta] 60 mg PO DAILY 11/08/21 Docusate [Colace] 100 mg PO BID cap 11/08/21 Gabapentin [Neurontin] 100 mg PO BID@0600,1400 #6 cap 11/08/21 Insulin Degludec [Tresiba] 15 units SQ HS@2100 #0 11/08/21 Isosorbide Mononitrate ER [Imdur] 30 mg PO DAILY 11/08/21 amLODIPine [Norvasc] 5 mg PO DAILY tab 11/08/21 Allergies Allergy/AdvReac Type Severity Reaction Status Date / Time No Known Allergies Allergy Verified 11/04/21 11:14 Review of Systems ROS Statement: Those systems with pertinent positive or pertinent negative responses have been documented in the HPI. ROS Other: All systems not noted in ROS Statement are negative. Constitutional: Denies: fever Respiratory: Denies: cough, dyspnea Cardiovascular: Denies: chest pain, palpitations, orthopnea, edema, syncope Gastrointestinal: Denies: abdominal pain, vomiting, diarrhea Genitourinary: Denies: dysuria, frequency Musculoskeletal: Denies: back pain Skin: Denies: rash Neurological: Denies: headache, weakness, numbness Past Medical History Past Medical History: Asthma, Coronary Artery Disease (CAD), Cancer, Heart Failure, COPD, Diabetes Mellitus, GI Bleed, Hyperlipidemia, Hypertension, Myocardial Infarction ([place]), Osteoarthritis (OA), Pulmonary Embolus (PE), Renal Disease, Rheumatoid Arthritis (RA), Sleep Apnea/CPAP/BIPAP, Syncope, Thyroid Disorder Additional Past Medical History / Comment(s): IDDM type II poorly controlled,uses cpap bilateral peripheral neuropathy bilateral hands/feet, CKD , UTIs, legally blind bilaterally-sees minimally, thyroid cancer with surgery, goiter, hashimotos, diverticular disease, 2013 upper and lower GI bleeds with blood loss anemia, gout, R humeral fracture with surgery, occasionally bladder i ncont.past falls, "lt ankle broke 3 places-SX DONE. pt stated "not walking but able to stand and pivot with med boot on," Last Myocardial Infarction Date:: 2009 History of Any Multi-Drug Resistant Organisms: None Reported Past Surgical History: Adenoidectomy, Back Surgery, Cholecystectomy, Heart Catheterization With Stent, Tonsillectomy Additional Past Surgical History / Comment(s): PCI with stent 2009 & 2018, low back surgery, total R shoulder and total R knee arthroplasties, bilateral hand trigger finger surgeries, EGD, colonoscopy, L eye laser eye surgery for bleed, thyroidectomy.lt tib fib fx-plate and screws. Past Anesthesia/Blood Transfusion Reactions: No Reported Reaction Additional Past Anesthesia/Blood Transfusion Reaction / Comment(s): Pt has received blood in past without reaction. Date of Last Stent Placement:: 2017 Past Psychological History: Anxiety, Depression Smoking Status: Never smoker Past Alcohol Use History: None Reported Past Drug Use History: None Reported - Past Family History Mother Family Medical History: Asthma, CVA/TIA, Seizure Disorder Additional Family Medical History / Comment(s): epilepsy Father Family Medical History: COPD, Diabetes Mellitus Additional Family Medical History / Comment(s): many heart problems General Exam General appearance: alert, in no apparent distress Head exam: Present: atraumatic, normocephalic, normal inspection Eye exam: Present: normal appearance. Absent: scleral icterus, conjunctival injection Neck exam: Present: normal inspection Respiratory exam: Present: normal lung sounds bilaterally. Absent: respiratory distress, wheezes, rales, rhonchi, stridor Cardiovascular Exam: Present: regular rate, normal rhythm, systolic murmur. Absent: diastolic murmur, rubs, gallop GI/Abdominal exam: Present: soft. Absent: distended, tenderness, guarding, rebound, rigid, mass Extremities exam: Present: normal inspection, normal capillary refill. Absent: pedal edema, calf tenderness Back exam: Present: normal inspection Neurological exam: Present: alert Skin exam: Present: warm, dry, intact, normal color. Absent: rash Course Vital Signs 11/03/21 11/04/21 11/04/21 23:53 02:57 04:57 Temperature 98.2 F Pulse Rate 68 68 66 Respiratory 18 17 17 Rate Blood Pressure 128/52 122/52 125/51 O2 Sat by Pulse 98 Oximetry EKG Findings - EKG Results: EKG: interpreted by ERMD, sinus rhythm (Rate 67 bpm) - Blocks, [place], Hypertrophy, ST Abn: AV and intraventricular conduction: 1 AV block, left bundle branch block (fixed/intermittent, complete/incomplete) QRS axis and voltage: left axis deviation (-30 to -90) Medical Decision Making - Medical Decision Making Patient's 66-year-old woman sent to have nephrology evaluation. Patient be admitted for further evaluation and possible dialysis. - Lab Data Result diagrams: 11/06/21 05:38 11/08/21 05:16 Lab Results 11/04/21 11/04/21 11/04/21 Range/Units 00:26 00:26 00:26 WBC 7.0 (3.8-10.6) k/uL RBC 2.56 L (3.80-5.40) m/uL Hgb 8.0 L (11.4-16.0) gm/dL Hct 24.6 L (34.0-46.0) % MCV 96.2 (80.0-100.0) fL MCH 31.2 (25.0-35.0) pg MCHC 32.4 (31.0-37.0) g/dL RDW 15.0 (11.5-15.5) % Plt Count 162 (150-450) k/uL MPV 8.8 Neutrophils % 67 % Lymphocytes % 20 % Monocytes % 8 % Eosinophils % 4 % Basophils % 0 % Neutrophils # 4.7 (1.3-7.7) k/uL Lymphocytes # 1.4 (1.0-4.8) k/uL Monocytes # 0.5 (0-1.0) k/uL Eosinophils # 0.3 (0-0.7) k/uL Basophils # 0.0 (0-0.2) k/uL Sodium 136 L (137-145) mmol/L Potassium 4.1 (3.5-5.1) mmol/L Chloride 101 (98-107) mmol/L Carbon Dioxide 27 (22-30) mmol/L Anion Gap 8 mmol/L BUN 113 H* (7-17) mg/dL Creatinine 4.53 H (0.52-1.04) mg/dL Est GFR (CKD-EPI)AfAm 11 (>60 ml/min/1.73 sqM) Est GFR (CKD-EPI)NonAf 10 (>60 ml/min/1.73 sqM) Glucose 155 H (74-99) mg/dL Calcium 8.5 (8.4-10.2) mg/dL Magnesium 2.6 H (1.6-2.3) mg/dL Total Bilirubin 0.4 (0.2-1.3) mg/dL AST 31 (14-36) U/L ALT 34 (4-34) U/L Alkaline Phosphatase 59 (38-126) U/L Troponin I 0.020 (0.000-0.034) ng/mL NT-Pro-B Natriuret Pep pg/mL Total Protein 6.1 L (6.3-8.2) g/dL Albumin 3.2 L (3.5-5.0) g/dL 11/04/21 Range/Units 00:26 WBC (3.8-10.6) k/uL RBC (3.80-5.40) m/uL Hgb (11.4-16.0) gm/dL Hct (34.0-46.0) % MCV (80.0-100.0) fL MCH (25.0-35.0) pg MCHC (31.0-37.0) g/dL RDW (11.5-15.5) % Plt Count (150-450) k/uL MPV Neutrophils % % Lymphocytes % % Monocytes % % Eosinophils % % Basophils % % Neutrophils # (1.3-7.7) k/uL Lymphocytes # (1.0-4.8) k/uL Monocytes # (0-1.0) k/uL Eosinophils # (0-0.7) k/uL Basophils # (0-0.2) k/uL Sodium (137-145) mmol/L Potassium (3.5-5.1) mmol/L Chloride (98-107) mmol/L Carbon Dioxide (22-30) mmol/L Anion Gap mmol/L BUN (7-17) mg/dL Creatinine (0.52-1.04) mg/dL Est GFR (CKD-EPI)AfAm (>60 ml/min/1.73 sqM) Est GFR (CKD-EPI)NonAf (>60 ml/min/1.73 sqM) Glucose (74-99) mg/dL Calcium (8.4-10.2) mg/dL Magnesium (1.6-2.3) mg/dL Total Bilirubin (0.2-1.3) mg/dL AST (14-36) U/L ALT (4-34) U/L Alkaline Phosphatase (38-126) U/L Troponin I (0.000-0.034) ng/mL NT-Pro-B Natriuret Pep 4240 pg/mL Total Protein (6.3-8.2) g/dL Albumin (3.5-5.0) g/dL Disposition Clinical Impression: ARF (acute renal failure), Chronic renal failure Disposition: ADMITTED IP TO THIS HOSP Condition: Stable Is patient prescribed a controlled substance at d/c from ED?: No
[2021-11-04] MEDS ORDERED: NALOXONE 0.4 MG/ML 1 ML VIAL IV PRN (06:31)
[2021-11-04] MEDS ORDERED: NITROGLYCERIN SL TABS 0.4 MG TAB SUBLINGUAL PRN (06:37)
[2021-11-04] MEDS ORDERED: ALBUTEROL HFA INHALER INHALATION PRN (06:37)
[2021-11-04] MEDS ORDERED: GABAPENTIN 400 MG CAP PO SCH (08:00)
[2021-11-04] MEDS ORDERED: carvediloL 12.5 MG TAB PO SCH (08:00)
[2021-11-04] MEDS: FLUTICASONE 110 MCG INHALER INHALATION SCH ×2 (08:00→19:54)
[2021-11-04 08:40] LABS: Glucose,Whole Blood 148 mg/dL (75-99)
--- NOTE | 2021-11-04 10:35 | P.HPIM ---
History of Present Illness H&P Date: 11/04/21 History of present illness: This is a 66-year-old patient of Dr. 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 Spencer, she is a permanent resident at [facility]. She was sent to the emergency room for [facility] due to elevated labs. BUN 113, creatinine 4.53. Discussed with the patient will have a dialysis catheter placed for dialysis. Patient was complaining of abdominal pain with nausea and no vomiting prior to the lab work. At this time patient is found resting comfortably in bed able to answer questions. She states that she still has some abdominal pain with nausea no vomiting. Denies any chest pain or shortness of breath. Patient has been afebrile. Heart rate 74, respirations 16, blood pressure 130/67 pulse ox 98% on 3 L. WBC 7.0, hemoglobin 8.0, platelets 162, sodium 136, potassium 141, BUN 113, creatinine 4.53, magnesium 2.6 Review Of Systems: Constitutional: No fever, no chills, no night sweats. No weight change. No weakness, fatigue or lethargy. No daytime sleepiness. EENT: No headache. No blurred vision or double vision, no loss of vision. No loss of Hearing, no ringing in the ears, no dizziness. No nasal drainage or congestion. No epistaxis. No sore throat. Lungs: No shortness of breath, cough, no sputum production. No wheezing. Cardiovascular: No chest pain, no lower extremity edema. No palpitations. No paroxysmal nocturnal dyspnea. No orthopnea. No lightheadedness or dizziness. No syncopal episodes. Abdominal: Reports abdominal discomfort. Reports nausea, no vomiting. no diarrhea. No constipation. No bloody or tarry stools. no loss of appetite. Genitourinary: No dysuria, increased frequency, urgency. No urinary retention. Musculoskeletal: No myalgias. No muscle weakness, no gait dysfunction, no frequent falls. No back pain. No neck pain. Integumentary: No wounds, no lesions. No rash or pruritus. No unusual bruising. No change in hair or nails. Neurologic: No aphasia. No facial droop. No change in mentation. No head injury. No headache. No paralysis. No paresthesia. Psychiatric: No depression. No anxiety. No mood swings. Endocrine: No abnormal blood sugars. No weight change. No excessive sweating or thirst. Social history: Patient is , resident at [facility], utilizes a wheelchair patient has a daughter who is healthy. He is a lifelong nonsmoker, denies EtOH or illicit drug use. Family history: Mother had history of stroke epilepsy, father's history of heart disease COPD diabetes, sister had history of spina bifida, brother history of seizure arthritis asthma diabetes lung disease Physical examination General Appearance: Alert, cooperative, no distress, found resting comfortably in bed appears older stated age. Neck HEENT: Supple, no lymphadenopathy, no thyroid enlargement, no carotid bruits. Lungs: Clear to auscultation without crackles or wheezes no rhonchi, no deformity. Chest Wall: Chest wall normal expansion with deep inspiration no tenderness and no deformity was found on exam, no costochondral pain or discomfort. Heart: Regular rate and rhythm, S1, S2 normal, no murmur, rub or gallop. Back: Symmetric, no curvature, ROM normal, no CVA tenderness. Abdomen: Soft, non-tender, no rebound or rigidity, no hepatosplenomegaly. Extremities: Extremities normal, atraumatic, no cyanosis or edema. Pulses: 2+ and symmetric. Skin: Skin color, texture, tugor normal, no rashes or lesions. Neurologic: Alert oriented x3 cranial nerves II through XII intact, no motor deficit, no abnormal balance or gait Assessment and plan 1. Acute on chronic renal failure. Consult nephrology, monitor BUN/creatinine, more than likely will require dialysis. 0.9 normal saline hydration at 75 ML's per hour. PhosLo 660 mg 3 times a day sodium bicarbonate 650 mg by mouth 3 times a day 2. Abdominal pain with nausea no vomiting secondary to uremia. Continue with hydration. 3. Diabetes mellitus type 2. Levemir 40 units subcu daily at bedtime, Accu- Cheks before meals at bedtime 4. Rheumatoid arthritis secondary to end-stage renal disease. Neurontin 400 mg by mouth 3 times a day 5. COPD. Ventolin, Flovent, Singulair 10 mg by mouth at bedtime 6. Coronary artery disease prior cardiac stent. Amlodipine 5 mg by mouth, carvedilol 0.5 mg by mouth, Lasix 40 mg by mouth twice a day, Imdur 30 mg by mouth, aspirin 81 mg by mouth 7. History of thyroid cancer on Levothyroxine 176 MCG by mouth 8. Chronic pain. Continue with Cymbalta and gabapentin. 9. Anemia of chronic disease. Continue with Feosol 325 mg by mouth 10. Hyperlipidemia. Atorvastatin 40 mg by mouth at bedtime 11. GERD/GI prophylaxis. Carafate 1 g by mouth 3 times a day, Protonix 40 mg by mouth 12. DVT prophylaxis. Heparin subcu 5000 units CODE STATUS: Full code Discharge plan: Return to [facility] possibly Saturday Impression and plan of care have been directed as dictated by the signing physician. Klaudia Harding nurse practitioner acting as scribe for signing physician. Past Medical History Past Medical History: Asthma, Coronary Artery Disease (CAD), Cancer, Heart Failure, COPD, Diabetes Mellitus, GI Bleed, Hyperlipidemia, Hypertension, Myocardial Infarction ([place]), Osteoarthritis (OA), Pulmonary Embolus (PE), Renal Disease, Rheumatoid Arthritis (RA), Sleep Apnea/CPAP/BIPAP, Syncope, Thyroid Disorder Additional Past Medical History / Comment(s): IDDM type II poorly controlled,uses cpap bilateral peripheral neuropathy bilateral hands/feet, CKD , UTIs, legally blind bilaterally-sees minimally, thyroid cancer with surgery, goiter, hashimotos, diverticular disease, 2014 upper and lower GI bleeds with blood loss anemia, gout, R humeral fracture with surgery, occasionally bladder incont.past falls, "lt ankle broke 3 places-SX DONE. pt stated "not walking but able to stand and pivot with med boot on," Last Myocardial Infarction Date:: 2009 History of Any Multi-Drug Resistant Organisms: None Reported Past Surgical History: Adenoidectomy, Back Surgery, Cholecystectomy, Heart Catheterization With Stent, Tonsillectomy Additional Past Surgical History / Comment(s): PCI with stent 2009 & 2018, low back surgery, total R shoulder and total R knee arthroplasties, bilateral hand trigger finger surgeries, EGD, colonoscopy, L eye laser eye surgery for bleed, thyroidectomy.lt tib fib fx-plate and screws. Past Anesthesia/Blood Transfusion Reactions: No Reported Reaction Additional Past Anesthesia/Blood Transfusion Reaction / Comment(s): Pt has received blood in past without reaction. Date of Last Stent Placement:: 2017 Past Psychological History: Anxiety, Depression Smoking Status: Never smoker Past Alcohol Use History: None Reported Past Drug Use History: None Reported - Past Family History Mother Family Medical History: Asthma, CVA/TIA, Seizure Disorder Additional Family Medical History / Comment(s): epilepsy Father Family Medical History: COPD, Diabetes Mellitus Additional Family Medical History / Comment(s): many heart problems Medications and Allergies Home Medications Medication Instructions Recorded Confirmed Type Calcium Acetate [PhosLo] 667 mg PO TID@0800,1400,199911/21/17 12/09/20 History Ferrous Sulfate [Iron (65 MG 325 mg PO DAILY@1700 11/21/17 12/09/20 History Elemental)] Fluticasone Propionate [Flovent 2 puff INHALATION RT-BID 11/21/17 12/09/20 History Hfa 110 mcg] Insulin Aspart [NovoLOG Flexpen] 5 unit SQ AC-BID 11/21/17 12/09/20 History Levothyroxine Sodium [Synthroid] 175 mcg PO DAILY@0600 11/21/17 12/09/20 History Montelukast [Singulair] 10 mg PO HS 11/21/17 12/09/20 History Insulin Degludec [Tresiba] 40 units SQ HS 08/19/18 12/09/20 History Pantoprazole Sodium [Protonix] 40 mg PO DAILY 08/19/18 12/09/20 History Sucralfate [Carafate] 1 gm PO TID-W/MEALS 01/04/19 12/09/20 History allopurinoL [Zyloprim] 300 mg PO DAILY 01/04/19 12/09/20 History Aspirin 81 mg PO DAILY #30 chew 01/13/19 12/09/20 Rx Clopidogrel [Plavix] 75 mg PO DAILY #30 tab 01/13/19 12/09/20 Rx Gabapentin [Neurontin] 400 mg PO TID@0800,1399,1999 #9 cap 01/13/19 12/09/20 Rx Isosorbide Mononitrate ER [Imdur] 30 mg PO DAILY #30 tab.er.24h 01/13/19 12/09/20 Rx Nitroglycerin Sl Tabs [Nitrostat] 0.4 mg SUBLINGUAL Q5M PRN #25 tab 07/23/19 06/18/21 Rx Atorvastatin [Lipitor] 40 mg PO HS 09/08/20 12/09/20 History DULoxetine HCL [Cymbalta] 60 mg PO DAILY 09/08/20 12/09/20 History Insulin Aspart [NovoLOG Flexpen] 6 units SQ AC-LUNCH 09/08/20 12/09/20 History calcitrioL [Calcitriol] 0.25 mcg PO Q7D 09/08/20 12/09/20 History carvediloL [Coreg*] 12.5 mg PO BID@0800,1700 #60 tab 09/11/20 12/09/20 Rx Albuterol Sulfate [Ventolin HFA] 2 puff INHALATION RT-Q6H PRN 12/09/20 12/09/20 History Cholecalciferol [Vitamin D3 (25 50 mcg PO DAILY 12/09/20 12/09/20 History Mcg = 1000 Iu)] Diclofenac Sodium Gel [Voltaren 4 gm TOPICAL QID PRN 12/09/20 12/09/20 History Gel] Docusate [Colace] 100 mg PO BID 12/09/20 12/09/20 History Sodium Bicarbonate Tab 650 mg PO TID@0800,1400,2000 12/09/20 12/09/20 History Vitafusion Power Of C Gummies 3 cap PO DAILY 12/09/20 12/09/20 History amLODIPine [Norvasc] 5 mg PO DAILY 12/09/20 12/09/20 History Furosemide [Lasix] 40 mg PO BID@0900,1600 #60 tab 12/13/20 Rx Allergies Allergy/AdvReac Type Severity Reaction Status Date / Time No Known Allergies Allergy Verified 11/03/21 23:58 Physical Exam Vitals: Vital Signs Temp Pulse Pulse Resp BP BP Pulse Ox 11/04/21 08:38 98.3 F 74 16 130/67 98 11/04/21 04:57 66 17 125/51 11/04/21 02:57 68 17 122/52 11/03/21 23:53 98.2 F 68 18 128/52 98 Intake and Output 11/03/21 11/04/21 11/04/21 22:59 06:59 14:59 Other: Weight 117.934 kg Results CBC & Chem 7: 11/04/21 00:26 11/04/21 00:26 Labs: Abnormal Lab Results - Last 24 Hours (Table) 11/04/21 11/04/21 11/04/21 Range/Units 00: 00:26 08:38 RBC 2.56 L (3.80-5.40) m/uL Hgb 8.0 L (11.4-16.0) gm/dL Hct 24.6 L (34.0-46.0) % Sodium 136 L (137-145) mmol/L BUN 113 H* (7-17) mg/dL Creatinine 4.53 H (0.52-1.04) mg/dL Glucose 155 H (74-99) mg/dL POC Glucose (mg/dL) 148 H (75-99) mg/dL Magnesium 2.6 H (1.6-2.3) mg/dL Total Protein 6.1 L (6.3-8.2) g/dL Albumin 3.2 L (3.5-5.0) g/dL
[2021-11-04] MEDS: amLODIPine 5 MG TAB PO SCH (10:36)
[2021-11-04] MEDS: FUROSEMIDE 40 MG TAB PO SCH ×2 (10:36→11:54)
[2021-11-04] MEDS: ISOSORBIDE MONONITRATE ER 30 MG TAB.ER.24H PO SCH ×2 (10:37→11:55)
[2021-11-04] MEDS: DULoxetine HCL 60 MG CAPSULE.DR PO SCH ×2 (10:38→11:54)
[2021-11-04] MEDS: SUCRALFATE 1 GM TAB PO SCH ×3 (11:53→18:10)
[2021-11-04] MEDS: ASPIRIN 81 MG PO SCH (11:54)
[2021-11-04] MEDS: CLOPIDOGREL 75 MG TAB PO SCH (11:54)
[2021-11-04] MEDS: FERROUS SULFATE 325 MG TAB PO SCH (11:54)
--- NOTE | 2021-11-04 11:54 | P.NPCON ---
History of Present Illness - Reason for Consult chronic renal failure - History of Present Illness Patient is a 66-year-old female with history of CK D stage IV 5 secondary to diabetic kidney disease and nephrosclerosis. Her creatinine recently has been around 4.3-4.4 mg/dL which is higher than her previous reading of about 3.6-3.7 in April 2021. Patient is complaining of nausea, decreased appetite. She is also complaining of increased fatigue. Patient reports poor urine output Serum creatinine was 4.5 this admission. B UN was 113. I have discussed renal replacement therapy with the patient. She is agreeable to start if indicated. Patient has been started on IV fluids. I have advised her that we will repeat her labs tomorrow and if there is no significant improvement we will go ahead and start dialysis. No history of diarrhea vomiting fever chills cough chest pains prior to admission. Review of Systems As per HPI, other systems negative Past Medical History Past Medical History: Asthma, Coronary Artery Disease (CAD), Cancer, Heart Failure, COPD, Diabetes Mellitus, GI Bleed, Hyperlipidemia, Hypertension, Myocardial Infarction (NE), Osteoarthritis (OA), Pulmonary Embolus (PE), Renal Disease, Rheumatoid Arthritis (RA), Sleep Apnea/CPAP/BIPAP, Syncope, Thyroid Disorder Additional Past Medical History / Comment(s): IDDM type II poorly controlled,uses cpap bilateral peripheral neuropathy bilateral hands/feet, CKD , UTIs, legally blind bilaterally-sees minimally, thyroid cancer with surgery, goiter, hashimotos, diverticular disease, 2013 upper and lower GI bleeds with blood loss anemia, gout, R humeral fracture with surgery, occasionally bladder incont.past falls, "lt ankle broke 3 places-SX DONE. pt stated "not walking but able to stand and pivot with med boot on," Last Myocardial Infarction Date:: 2009 History of Any Multi-Drug Resistant Organisms: None Reported Past Surgical History: Adenoidectomy, Back Surgery, Cholecystectomy, Heart Catheterization With Stent, Tonsillectomy Additional Past Surgical History / Comment(s): PCI with stent 2009 & 2018, low back surgery, total R shoulder and total R knee arthroplasties, bilateral hand trigger finger surgeries, EGD, colonoscopy, L eye laser eye surgery for bleed, thyroidectomy.lt tib fib fx-plate and screws. Past Anesthesia/Blood Transfusion Reactions: No Reported Reaction Additional Past Anesthesia/Blood Transfusion Reaction / Comment(s): Pt has received blood in past without reaction. Date of Last Stent Placement:: 2017 Past Psychological History: Anxiety, Depression Smoking Status: Never smoker Past Alcohol Use History: None Reported Past Drug Use History: None Reported - Past Family History Mother Family Medical History: Asthma, CVA/TIA, Seizure Disorder Additional Family Medical History / Comment(s): epilepsy Father Family Medical History: COPD, Diabetes Mellitus Additional Family Medical History / Comment(s): many heart problems Medications and Allergies Home Medications Medication Instructions Recorded Confirmed Type Calcium Acetate [PhosLo] 667 mg PO TID@0800,1200,1700 11/21/17 11/04/21 History Ferrous Sulfate [Iron (65 MG 325 mg PO DAILY@0800 11/21/17 11/04/21 History Elemental)] Insulin Aspart [NovoLOG Flexpen] See Protocol SQ ACHS 11/21/17 11/04/21 History Levothyroxine Sodium [Synthroid] 175 mcg PO DAILY@0600 11/21/17 11/04/21 History Montelukast [Singulair] 10 mg PO HS@2100 11/21/17 11/04/21 History Insulin Degludec [Tresiba] 35 units SQ HS@2100 08/19/18 11/04/21 History Atorvastatin [Lipitor] 40 mg PO HS@2100 09/08/20 11/04/21 History Insulin Aspart [NovoLOG Flexpen] 5 units SQ TID@0700,1100,1630 09/08/20 11/04/21 History Cholecalciferol [Vitamin D3 (25 50 mcg PO DAILY@1700 12/09/20 11/04/21 History Mcg = 1000 Iu)] Acetaminophen Tab [Tylenol] 650 mg PO Q4H PRN 11/04/21 11/04/21 History Albuterol Nebulized [Ventolin 2.5 mg INHALATION RT-Q6H PRN 11/04/21 11/04/21 History Nebulized] Allopurinol [Zyloprim] 200 mg PO DAILY@0800 11/04/21 11/04/21 History Aspirin EC [Ecotrin Low Dose] 81 mg PO DAILY@1700 11/04/21 11/04/21 History Budesonide [Pulmicort] 0.5 mg INHALATION BID@0700,1900 11/04/21 11/04/21 History Carvedilol [Coreg] 25 mg PO BID@0800,1700 11/04/21 11/04/21 History Clopidogrel [Plavix] 75 mg PO DAILY@0800 11/04/21 11/04/21 History DULoxetine HCL [Cymbalta] 30 mg PO DAILY@2130 11/04/21 11/04/21 History Epoetin Russ [Procrit] 10,000 unit SQ DIRECTED 11/04/21 11/04/21 History Famotidine [Pepcid] 20 mg PO DAILY@0800 11/04/21 11/04/21 History Gabapentin [Neurontin] 100 mg PO BID@0600,1400 11/04/21 11/04/21 History Ipratropium-Albuterol Nebulize 3 ml INHALATION RT-Q6H PRN 11/04/21 11/04/21 History [Duoneb 0.5 mg-3 mg/3 ml Soln] Melatonin 3 mg PO HS@2100 11/04/21 11/04/21 History NIFEdipine [NIFEdipine ER] 90 mg PO DAILY@0800 11/04/21 11/04/21 History Sodium Bicarbonate 325 mg PO DAILY@0800 11/04/21 11/04/21 History Sodium Zirconium Cyclosilicate 10 gm PO DAILY@0600 11/04/21 11/04/21 History [Lokelma] Torsemide [Demadex] 20 mg PO DAILY@0800 11/04/21 11/04/21 History Allergies Allergy/AdvReac Type Severity Reaction Status Date / Time No Known Allergies Allergy Verified 11/04/21 11:14 Physical Exam Vitals: Vital Signs Temp Pulse Pulse Resp BP BP Pulse Ox 11/04/21 08:38 98.3 F 74 16 130/67 98 11/04/21 04:57 66 17 125/51 11/04/21 02:57 68 17 122/52 11/03/21 23:53 98.2 F 68 18 128/52 98 Intake and Output 11/03/21 11/04/21 11/04/21 22:59 06:59 14:59 Other: Weight 117.934 kg Awake, comfortable, alert oriented 3. Not in any acute distress Examination of the heart S1 and S2 Exertion lungs bilateral breath sounds are heard Abdomen is soft nontender Exertion lower extremities shows edema 1+ bilaterally upper and lower extremities METHOD CONSULTANT exam grossly intact Results - Lab Results Most recent lab results Calcium 8.5 mg/dL (8.4-10.2) 11/04/21 00:26 Magnesium 2.6 mg/dL (1.6-2.3) H 11/04/21 00:26 11/04/21 00:26 11/04/21 00:26 Assessment and Plan Assessment: 1. CK D stage V with symptoms of uremia. Rule out urine retention. Patient has been started on IV fluids. And there is no improvement in her renal function by tomorrow she will need to start dialysis. At this time patient is agreeable. Patient has seen Dr. Roper. She has had been mapping done previously. 2. Type 2 diabetes 3. Rheumatoid arthritis 4. COPD 5. Coronary artery disease with history of coronary stent 6. CK D mineral bone disorder 7. Metabolic acidosis maintained on oral sodium bicarb Plan: Agree with IV fluids Hold Lasix Repeat labs in a.m. Patient is advised that she will need to start dialysis by tomorrow if there is no improvement in renal function. He shouldn't has seen Dr. Roper previously we will consult her tomorrow depending on the labs for placement of dialysis catheter. Protect nondominant arm from IVs, blood draws and blood pressure checks
[2021-11-04] MEDS: SODIUM BICARBONATE TAB 650 MG TAB PO SCH ×3 (11:55→20:30)
[2021-11-04 12:26] LABS: Glucose,Whole Blood 139 mg/dL (75-99)
[2021-11-04] MEDS: PANTOPRAZOLE 40 MG TABLET PO SCH (12:58)
[2021-11-04] MEDS: SODIUM CHLORIDE 0.9% 1,000 ML IV SCH (12:59)
[2021-11-04] MEDS: CALCIUM ACETATE 667 MG TAB PO SCH ×3 (12:59→20:30)
[2021-11-04] MEDS: DOCUSATE 100 MG CAP PO SCH ×2 (13:00→20:30)
[2021-11-04] MEDS ORDERED: GABAPENTIN 100 MG CAP PO SCH (16:00)
[2021-11-04 18:01] LABS: Glucose,Whole Blood 125 mg/dL (75-99)
[2021-11-04] MEDS: INSULIN ASPART (NovoLOG) 100 UNIT/ML VIAL SQ SCH ×2 (18:02→20:29)
[2021-11-04] MEDS: carvediloL 12.5 MG TAB PO SCH (18:10)
[2021-11-04] MEDS: INSULIN DETEMIR (LEVEMIR) 100 UNIT/ML SYR SQ SCH (20:29)
[2021-11-04] MEDS: ATORVASTATIN 40 MG TAB PO SCH (20:30)
[2021-11-04] MEDS: MONTELUKAST 10 MG TAB PO SCH (20:30)
[2021-11-04] MEDS: GABAPENTIN 100 MG CAP PO SCH (20:30)
[2021-11-04 20:37] LABS: Glucose,Whole Blood 166 mg/dL (75-99)
[2021-11-04 21:43] LABS: Appearance,Urine Cloudy (Clear); Bacteria,Urine Occasional /hpf; Bilirubin,Urine Negative (Negative); Blood,Urine Negative (Negative); Color,Urine Light Yellow; Glucose,Urine (UA) Negative (Negative); Ketones,Urine Negative (Negative); Leukocyte Esterase,Urine Large (Negative); Mucus,Urine Rare /hpf; Nitrite,Urine Negative (Negative); Protein,Urine Trace (Negative); RBC,Urine 1 /hpf (0-5); Specific Gravity,Urine 1.008 (1.001-1.035); Squamous Epithelial Cell,Urine 1 /hpf (0-4); Urobilinogen,Urine <2.0 mg/dL (<2.0); WBC,Urine 97 /hpf (0-5)
[2021-11-05] MEDS: SODIUM CHLORIDE 0.9% 1,000 ML IV SCH ×2 (02:18→16:13)
[2021-11-05] MEDS: LEVOTHYROXINE 88 MCG TAB PO SCH (05:36)
[2021-11-05 07:28] LABS: Glucose,Whole Blood 58 mg/dL (75-99)
[2021-11-05] MEDS: FLUTICASONE 110 MCG INHALER INHALATION SCH ×2 (07:58→19:44)
[2021-11-05 08:01] LABS: Glucose,Whole Blood 88 mg/dL (75-99)
[2021-11-05] MEDS: INSULIN ASPART (NovoLOG) 100 UNIT/ML VIAL SQ SCH ×4 (08:33→20:51)
[2021-11-05] MEDS: CALCIUM ACETATE 667 MG TAB PO SCH ×3 (08:34→20:50)
[2021-11-05] MEDS: GABAPENTIN 100 MG CAP PO SCH ×2 (08:34→20:50)
[2021-11-05] MEDS: carvediloL 12.5 MG TAB PO SCH ×2 (08:34→16:00)
[2021-11-05] MEDS: ASPIRIN 81 MG PO SCH (08:34)
[2021-11-05] MEDS: amLODIPine 5 MG TAB PO SCH (08:34)
[2021-11-05] MEDS: SUCRALFATE 1 GM TAB PO SCH ×3 (08:34→16:00)
[2021-11-05] MEDS: FUROSEMIDE 40 MG TAB PO SCH ×2 (08:34→15:59)
[2021-11-05] MEDS: SODIUM BICARBONATE TAB 650 MG TAB PO SCH ×3 (08:34→20:50)
[2021-11-05] MEDS: DOCUSATE 100 MG CAP PO SCH ×2 (08:34→20:50)
[2021-11-05] MEDS: PANTOPRAZOLE 40 MG TABLET PO SCH (08:34)
[2021-11-05] MEDS: CLOPIDOGREL 75 MG TAB PO SCH (08:40)
[2021-11-05 09:17] LABS: Basophils # (A) 0 X 10*3/uL (0.00-0.10); Basophils % (A) 0 %; Eosinophils % (A) 3.9 %; HCT 23.6 % (37.2-46.3); HGB 7.3 g/dL (12.0-15.0); Immature Grans, Automated 0.6 %; Lymphocytes # (A) 1.45 X 10*3/uL (0.90-5.00); Lymphocytes % (A) 18.7 %; MCH 29.7 pg (27.0-32.0); MCHC 30.9 g/dL (32.0-37.0); MCV 95.9 fL (80.0-97.0); Mean Platelet Volume 10.9 fL (9.5-12.2); Monocytes # (A) 0.74 X 10*3/uL (0.20-1.00); Monocytes % (A) 9.6 %; NRBC Per 100 WBC 0 /100 WBCS (0.0-0.0); Neutrophils % (A) 67.2 %; Platelet Count 140 X 10*3/uL (140-440); RBC 2.46 X 10*6/uL (4.10-5.20); RDW 13.9 % (11.5-14.5); WBC 7.74 X 10*3/uL (4.50-10.00)
[2021-11-05 09:47] LABS: African American GFR (CKD) 12.1 (60.0-200.0); Albumin 3.2 g/dL (3.8-4.9); Albumin/Globulin Ratio 1.23 (1.60-3.17); Anion Gap 9.4 mmol/L (10.00-18.00); BUN/Creat Ratio 22.48 Ratio (12.00-20.00); Blood Urea Nitrogen 94.4 mg/dL (9.0-27.0); Calcium 8.8 mg/dL (8.7-10.3); Carbon Dioxide 24.6 mmol/L (20.0-27.5); Globulin 2.6 g/dL (1.6-3.3); Non-African American GFR(CKD) 10.4 (60.0-200.0); Potassium 4.1 mmol/L (3.5-5.5); Total Bilirubin 0.3 mg/dL (0.30-1.20); Total Protein 5.8 g/dL (6.2-8.2)
--- NOTE | 2021-11-05 10:02 | P.PN ---
Subjective Patient is seen for follow-up for acute kidney injury and top of chronic kidney disease with progressive worsening of renal function. Patient continues to complain of nausea. Yesterday she was started on IV fluid challenge. Serum creatinine is somewhat improved to 4.0 however patient does not feeling much better. She is advised that we will go ahead and proceed with starting dialysis tomorrow. I will consult Dr. Roper. Patient has been following with Dr. Roper as outpatient and has had vein mapping done Objective - Vital Signs Vital signs: Vital Signs Temp 97.7 F 11/05/21 04:24 Pulse 75 11/05/21 04:24 Resp 16 11/05/21 04:24 BP 149/58 11/05/21 04:24 Pulse Ox 97 11/05/21 04:24 Intake & Output 11/04/21 11/05/21 11/05/21 18:59 06:59 18:59 Intake Total 160 Output Total 400 Balance -240 Intake: Oral 160 Output: Urine 400 Other: Voiding Method Bedside Commode Bedside Commode # Voids 2 # Bowel Movements 1 - Exam Awake, comfortable, not in any acute distress Examination of the heart S1 and S2 Examination lungs bilateral breath sounds are heard Abdomen is soft nontender Examination lower extremities shows trace edema bilaterally CREDIT DIRECTOR exam grossly intact - Labs CBC & Chem 7: 11/05/21 05:59 11/05/21 05:59 Labs: Abnormal Lab Results - Last 24 Hours (Table) 11/04/21 11/04/21 11/04/21 Range/Units 12:21 18:00 20:28 RBC (4.10-5.20) X 10*6/uL Hgb (12.0-15.0) g/dL Hct (37.2-46.3) % MCHC (32.0-37.0) g/dL Immature Gran # (0.00-0.04) X 10*3/uL Anion Gap (10.00-18.00) mmol/L BUN (9.0-27.0) mg/dL Creatinine (0.6-1.5) mg/dL Est GFR (CKD-EPI)AfAm (60.0-200.0) Est GFR (CKD-EPI)NonAf (60.0-200.0) BUN/Creatinine Ratio (12.00-20.00) Ratio Glucose (70-110) mg/dL POC Glucose (mg/dL) 139 H 125 H 166 H (75-99) mg/dL Total Protein (6.2-8.2) g/dL Albumin (3.8-4.9) g/dL Albumin/Globulin Ratio (1.60-3.17) g/dL Urine Appearance (Clear) Urine Protein (Negative) Ur Leukocyte Esterase (Negative) Urine WBC (0-5) /hpf Urine WBC Clumps (None) /hpf Urine Bacteria (None) /hpf Urine Mucus (None) /hpf 11/04/21 11/05/21 11/05/21 Range/Units 20:36 05:59 05:59 RBC 2.46 L (4.10-5.20) X 10*6/uL Hgb 7.3 L (12.0-15.0) g/dL Hct 23.6 L (37.2-46.3) % MCHC 30.9 L (32.0-37.0) g/dL Immature Gran # 0.05 H (0.00-0.04) X 10*3/uL Anion Gap 9.40 L (10.00-18.00) mmol/L BUN 94.4 H (9.0-27.0) mg/dL Creatinine 4.2 H (0.6-1.5) mg/dL Est GFR (CKD-EPI)AfAm 12.1 L (60.0-200.0) Est GFR (CKD-EPI)NonAf 10.4 L (60.0-200.0) BUN/Creatinine Ratio 22.48 H (12.00-20.00) Ratio Glucose 51 L (70-110) mg/dL POC Glucose (mg/dL) (75-99) mg/dL Total Protein 5.8 L (6.2-8.2) g/dL Albumin 3.2 L (3.8-4.9) g/dL Albumin/Globulin Ratio 1.23 L (1.60-3.17) g/dL Urine Appearance Cloudy H (Clear) Urine Protein Trace H (Negative) Ur Leukocyte Esterase Large H (Negative) Urine WBC 97 H (0-5) /hpf Urine WBC Clumps Many H (None) /hpf Urine Bacteria Occasional H (None) /hpf Urine Mucus Rare H (None) /hpf 05/15/22 Range/Units 07:26 RBC (4.10-5.20) X 10*6/uL Hgb (12.0-15.0) g/dL Hct (37.2-46.3) % MCHC (32.0-37.0) g/dL Immature Gran # (0.00-0.04) X 10*3/uL Anion Gap (10.00-18.00) mmol/L BUN (9.0-27.0) mg/dL Creatinine (0.6-1.5) mg/dL Est GFR (CKD-EPI)AfAm (60.0-200.0) Est GFR (CKD-EPI)NonAf (60.0-200.0) BUN/Creatinine Ratio (12.00-20.00) Ratio Glucose (70-110) mg/dL POC Glucose (mg/dL) 58 L (75-99) mg/dL Total Protein (6.2-8.2) g/dL Albumin (3.8-4.9) g/dL Albumin/Globulin Ratio (1.60-3.17) g/dL Urine Appearance (Clear) Urine Protein (Negative) Ur Leukocyte Esterase (Negative) Urine WBC (0-5) /hpf Urine WBC Clumps (None) /hpf Urine Bacteria (None) /hpf Urine Mucus (None) /hpf Assessment and Plan Assessment: 1. CK D stage V with symptoms of uremia. Rule out urine retention. Patient has been started on IV fluids. No significant improvement in overall symptoms however creatinine slightly better at 4.2 from 4.5 yesterday. 2. Type 2 diabetes 3. Rheumatoid arthritis 4. COPD 5. Coronary artery disease with history of coronary stent 6. CK D mineral bone disorder 7. Metabolic acidosis maintained on oral sodium bicarb Plan: Since patient continues to feel poorly, I have advised her that we will proceed with renal replacement therapy tomorrow. Consult Dr. Roper who patient has seen for been mapping as outpatient. Check urine culture
--- NOTE | 2021-11-05 10:41 | P.PN ---
Subjective Progress Note Date: 11/05/21 History of present illness: This is a 66-year-old patient of Dr. 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 Spencer, she is a permanent resident at [facility]. She was sent to the emergency room for [facility] due to elevated labs. BUN 113, creatinine 4.53. Discussed with the patient will have a dialysis catheter placed for dialysis. Patient was complaining of abdominal pain with nausea and no vomiting prior to the lab work. At this time patient is found resting comfortably in bed able to answer questions. She states that she still has some abdominal pain with nausea no vomiting. Denies any chest pain or shortness of breath. Patient has been afebrile. Heart rate 74, respirations 16, blood pressure 130/67 pulse ox 98% on 3 L. WBC 7.0, hemoglobin 8.0, platelets 162, sodium 136, potassium 141, BUN 113, creatinine 4.53, magnesium 2.6 11/05: She is examined in bed. Continues to complain of nausea and weakness and fatigue. Patient denies any vomiting or diarrhea. Awaiting her a.m. labs to determine if we will proceed with dialysis. If there is no improvement to her kidney function dialysis will be started tomorrow. BUN 94.4, creatinine 4.2 which is slightly improved. However patient does not feel any better. She remains afebrile, heart rate 75, respirations 16, blood pressure 136/70, pulse ox 97% on 3 L. Review Of Systems: Constitutional: No fever, no chills, no night sweats. No weight change. No weakness, fatigue or lethargy. No daytime sleepiness. EENT: No headache. No blurred vision or double vision, no loss of vision. No loss of Hearing, no ringing in the ears, no dizziness. No nasal drainage or congestion. No epistaxis. No sore throat. Lungs: No shortness of breath, cough, no sputum production. No wheezing. Cardiovascular: No chest pain, no lower extremity edema. No palpitations. No paroxysmal nocturnal dyspnea. No orthopnea. No lightheadedness or dizziness. No syncopal episodes. Abdominal: Reports abdominal discomfort. Reports nausea, no vomiting. no diarrhea. No constipation. No bloody or tarry stools. no loss of appetite. Genitourinary: No dysuria, increased frequency, urgency. No urinary retention. Musculoskeletal: No myalgias. No muscle weakness, no gait dysfunction, no frequent falls. No back pain. No neck pain. Integumentary: No wounds, no lesions. No rash or pruritus. No unusual bruising. No change in hair or nails. Neurologic: No aphasia. No facial droop. No change in mentation. No head injury. No headache. No paralysis. No paresthesia. Psychiatric: No depression. No anxiety. No mood swings. Endocrine: No abnormal blood sugars. No weight change. No excessive sweating or thirst. Physical examination General Appearance: Alert, cooperative, no distress, found resting comfortably in bed appears older stated age. Neck HEENT: Supple, no lymphadenopathy, no thyroid enlargement, no carotid bruits. Lungs: Clear to auscultation without crackles or wheezes no rhonchi, no deformity. Chest Wall: Chest wall normal expansion with deep inspiration no tenderness and no deformity was found on exam, no costochondral pain or discomfort. Heart: Regular rate and rhythm, S1, S2 normal, no murmur, rub or gallop. Back: Symmetric, no curvature, ROM normal, no CVA tenderness. Abdomen: Soft, non-tender, no rebound or rigidity, no hepatosplenomegaly. Extremities: Extremities normal, atraumatic, no cyanosis or edema. Pulses: 2+ and symmetric. Skin: Skin color, texture, tugor normal, no rashes or lesions. Neurologic: Alert oriented x3 cranial nerves II through XII intact, no motor deficit, no abnormal balance or gait Assessment and plan 1. Acute on chronic renal failure. Consult nephrology appreciated, monitor BUN/creatinine, dialysis more likely to start Saturday. 0.9 normal saline hydration at 75 ML's per hour. PhosLo 660 mg 3 times a day sodium bicarbonate 650 mg by mouth 3 times a day 2. Abdominal pain with nausea no vomiting secondary to uremia. Continue with hydration. 3. Diabetes mellitus type 2. Levemir 40 units subcu daily at bedtime, Accu- Cheks before meals at bedtime 4. Rheumatoid arthritis secondary to end-stage renal disease. Neurontin 400 mg by mouth 3 times a day 5. COPD. Ventolin, Flovent, Singulair 10 mg by mouth at bedtime 6. Coronary artery disease prior cardiac stent. Amlodipine 5 mg by mouth, carvedilol 0.5 mg by mouth, Lasix 40 mg by mouth twice a day, Imdur 30 mg by mouth, aspirin 81 mg by mouth 7. History of thyroid cancer on Levothyroxine 176 MCG by mouth 8. Chronic pain. Continue with Cymbalta and gabapentin. 9. Anemia of chronic disease. Continue with Feosol 325 mg by mouth 10. Hyperlipidemia. Atorvastatin 40 mg by mouth at bedtime 11. GERD/GI prophylaxis. Carafate 1 g by mouth 3 times a day, Protonix 40 mg by mouth 12. DVT prophylaxis. Heparin subcu 5000 units CODE STATUS: Full code Discharge plan: Return to [facility] possibly Saturday Impression and plan of care have been directed as dictated by the signing physician. Klaudia Harding nurse practitioner acting as scribe for signing physician. Objective - Vital Signs Vital signs: Vital Signs Temp 97.7 F 11/05/21 04:24 Pulse 76 11/05/21 08:30 Resp 16 11/05/21 04:24 BP 136/70 11/05/21 08:30 Pulse Ox 97 11/05/21 04:24 Intake & Output 11/04/21 11/05/21 11/05/21 18:59 06:59 18:59 Intake Total 160 Output Total 400 Balance -240 Intake: Oral 160 Output: Urine 400 Other: Voiding Method Bedside Commode Bedside Commode # Voids 2 # Bowel Movements 1 - Labs CBC & Chem 7: 11/05/21 05:59 11/05/21 05:59 Labs: Abnormal Lab Results - Last 24 Hours (Table) 11/04/21 11/04/21 11/04/21 Range/Units 12:21 18:00 20:28 RBC (4.10-5.20) X 10*6/uL Hgb (12.0-15.0) g/dL Hct (37.2-46.3) % MCHC (32.0-37.0) g/dL Immature Gran # (0.00-0.04) X 10*3/uL Anion Gap (10.00-18.00) mmol/L BUN (9.0-27.0) mg/dL Creatinine (0.6-1.5) mg/dL Est GFR (CKD-EPI)AfAm (60.0-200.0) Est GFR (CKD-EPI)NonAf (60.0-200.0) BUN/Creatinine Ratio (12.00-20.00) Ratio Glucose (70-110) mg/dL POC Glucose (mg/dL) 139 H 125 H 166 H (75-99) mg/dL Total Protein (6.2-8.2) g/dL Albumin (3.8-4.9) g/dL Albumin/Globulin Ratio (1.60-3.17) g/dL Urine Appearance (Clear) Urine Protein (Negative) Ur Leukocyte Esterase (Negative) Urine WBC (0-5) /hpf Urine WBC Clumps (None) /hpf Urine Bacteria (None) /hpf Urine Mucus (None) /hpf 11/04/21 11/05/21 11/05/21 Range/Units 20:36 05:59 05:59 RBC 2.46 L (4.10-5.20) X 10*6/uL Hgb 7.3 L (12.0-15.0) g/dL Hct 23.6 L (37.2-46.3) % MCHC 30.9 L (32.0-37.0) g/dL Immature Gran # 0.05 H (0.00-0.04) X 10*3/uL Anion Gap 9.40 L (10.00-18.00) mmol/L BUN 94.4 H (9.0-27.0) mg/dL Creatinine 4.2 H (0.6-1.5) mg/dL Est GFR (CKD-EPI)AfAm 12.1 L (60.0-200.0) Est GFR (CKD-EPI)NonAf 10.4 L (60.0-200.0) BUN/Creatinine Ratio 22.48 H (12.00-20.00) Ratio Glucose 51 L (70-110) mg/dL POC Glucose (mg/dL) (75-99) mg/dL Total Protein 5.8 L (6.2-8.2) g/dL Albumin 3.2 L (3.8-4.9) g/dL Albumin/Globulin Ratio 1.23 L (1.60-3.17) g/dL Urine Appearance Cloudy H (Clear) Urine Protein Trace H (Negative) Ur Leukocyte Esterase Large H (Negative) Urine WBC 97 H (0-5) /hpf Urine WBC Clumps Many H (None) /hpf Urine Bacteria Occasional H (None) /hpf Urine Mucus Rare H (None) /hpf 11/05/21 Range/Units 07:26 RBC (4.10-5.20) X 10*6/uL Hgb (12.0-15.0) g/dL Hct (37.2-46.3) % MCHC (32.0-37.0) g/dL Immature Gran # (0.00-0.04) X 10*3/uL Anion Gap (10.00-18.00) mmol/L BUN (9.0-27.0) mg/dL Creatinine (0.6-1.5) mg/dL Est GFR (CKD-EPI)AfAm (60.0-200.0) Est GFR (CKD-EPI)NonAf (60.0-200.0) BUN/Creatinine Ratio (12.00-20.00) Ratio Glucose (70-110) mg/dL POC Glucose (mg/dL) 58 L (75-99) mg/dL Total Protein (6.2-8.2) g/dL Albumin (3.8-4.9) g/dL Albumin/Globulin Ratio (1.60-3.17) g/dL Urine Appearance (Clear) Urine Protein (Negative) Ur Leukocyte Esterase (Negative) Urine WBC (0-5) /hpf Urine WBC Clumps (None) /hpf Urine Bacteria (None) /hpf Urine Mucus (None) /hpf Microbiology - Last 24 Hours (Table) 11/04/21 20:36 Urine Culture - Preliminary Urine,Voided
[2021-11-05 12:35] LABS: Glucose,Whole Blood 137 mg/dL (75-99)
[2021-11-05] MEDS: FERROUS SULFATE 325 MG TAB PO SCH (15:59)
[2021-11-05] MEDS: ACETAMINOPHEN TAB 325 MG TAB PO PRN (16:13)
[2021-11-05 17:10] LABS: Glucose,Whole Blood 155 mg/dL (75-99)
[2021-11-05 20:40] LABS: Glucose,Whole Blood 157 mg/dL (75-99)
[2021-11-05] MEDS: INSULIN DETEMIR (LEVEMIR) 100 UNIT/ML SYR SQ SCH (20:51)
[2021-11-05] MEDS: ATORVASTATIN 40 MG TAB PO SCH (20:51)
[2021-11-05] MEDS: MONTELUKAST 10 MG TAB PO SCH (20:51)
[2021-11-06] MEDS: SODIUM CHLORIDE 0.9% 1,000 ML IV SCH (04:35)
[2021-11-06] MEDS: LEVOTHYROXINE 88 MCG TAB PO SCH (04:36)
[2021-11-06 07:05] LABS: Glucose,Whole Blood 46 mg/dL (75-99)
[2021-11-06 07:35] LABS: Glucose,Whole Blood 68 mg/dL (75-99)
[2021-11-06 08:08] LABS: Glucose,Whole Blood 83 mg/dL (75-99)
[2021-11-06] MEDS: FLUTICASONE 110 MCG INHALER INHALATION SCH ×2 (08:08→19:51)
[2021-11-06] MEDS: carvediloL 12.5 MG TAB PO SCH ×2 (08:53→18:03)
[2021-11-06] MEDS: SODIUM BICARBONATE TAB 650 MG TAB PO SCH ×3 (08:54→21:25)
--- NOTE | 2021-11-06 09:12 | P.GSCN ---
History of Present Illness Consult date: 11/06/21 Reason for Consult: Dialysis access Requesting physician: Merary Spencer History of present illness: This is a pleasant 66-year-old female who is a patient of Dr. dre boogie with a past medical history including thyroid cancer, congestive heart failure, coronary artery disease, COPD, diabetes mellitus, hypertension, CVA, and chronic kidney disease stage IV. Patient was at [facility] and was sent in to the emergency department 2 days ago for abnormal labs, with elevated BUN and creatinine. Patient follows with Dr. Spencer who has seen her during this hospital admission and is consulting vascular surgery for dialysis catheter placement. Patient is known to Dr. Roper and has undergone vein mapping. Patient is denying any shortness of breath or chest pain. No fevers chills, abdominal pain, nausea or vomiting. Review of Systems A 14 point review systems was completed all pertinent positives and negatives as stated in the HPI. Past Medical History Past Medical History: Asthma, Coronary Artery Disease (CAD), Cancer, Heart Failure, COPD, Diabetes Mellitus, GI Bleed, Hyperlipidemia, Hypertension, Myocardial Infarction (MS), Osteoarthritis (OA), Pulmonary Embolus (PE), Renal Disease, Rheumatoid Arthritis (RA), Sleep Apnea/CPAP/BIPAP, Syncope, Thyroid Disorder Additional Past Medical History / Comment(s): IDDM type II poorly controlled,uses cpap bilateral peripheral neuropathy bilateral hands/feet, CKD , UTIs, legally blind bilaterally-sees minimally, thyroid cancer with surgery, goiter, hashimotos, diverticular disease, 2014 upper and lower GI bleeds with blood loss anemia, gout, R humeral fracture with surgery, occasionally bladder incont.past falls, "lt ankle broke 3 places-SX DONE. pt stated "not walking but able to stand and pivot with med boot on," Last Myocardial Infarction Date:: 2009 History of Any Multi-Drug Resistant Organisms: None Reported Past Surgical History: Adenoidectomy, Back Surgery, Cholecystectomy, Heart Catheterization With Stent, Tonsillectomy Additional Past Surgical History / Comment(s): PCI with stent 2009 & 2018, low back surgery, total R shoulder and total R knee arthroplasties, bilateral hand trigger finger surgeries, EGD, colonoscopy, L eye laser eye surgery for bleed, thyroidectomy.lt tib fib fx-plate and screws. Past Anesthesia/Blood Transfusion Reactions: No Reported Reaction Additional Past Anesthesia/Blood Transfusion Reaction / Comm: Pt has received blood in past without reaction. Date of Last Stent Placement:: 2017 Past Psychological History: Anxiety, Depression Smoking Status: Never smoker Past Alcohol Use History: None Reported Past Drug Use History: None Reported - Past Family History Mother Family Medical History: Asthma, CVA/TIA, Seizure Disorder Additional Family Medical History / Comment(s): epilepsy Father Family Medical History: COPD, Diabetes Mellitus Additional Family Medical History / Comment(s): many heart problems Medications and Allergies Home Medications Medication Instructions Recorded Confirmed Type Calcium Acetate [PhosLo] 667 mg PO TID@0800,1200,1700 11/21/17 11/04/21 History Ferrous Sulfate [Iron (65 MG 325 mg PO DAILY@0800 11/21/17 11/04/21 History Elemental)] Insulin Aspart [NovoLOG Flexpen] See Protocol SQ ACHS 11/21/17 11/04/21 History Levothyroxine Sodium [Synthroid] 175 mcg PO DAILY@0600 11/21/17 11/04/21 History Montelukast [Singulair] 10 mg PO HS@2100 11/21/17 11/04/21 History Insulin Degludec [Tresiba] 35 units SQ HS@2100 08/19/18 11/04/21 History Atorvastatin [Lipitor] 40 mg PO HS@2100 09/08/20 11/04/21 History Insulin Aspart [NovoLOG Flexpen] 5 units SQ TID@0700,1100,1630 09/08/20 11/04/21 History Cholecalciferol [Vitamin D3 (25 50 mcg PO DAILY@1700 12/09/20 11/04/21 History Mcg = 1000 Iu)] Acetaminophen Tab [Tylenol] 650 mg PO Q4H PRN 11/04/21 11/04/21 History Albuterol Nebulized [Ventolin 2.5 mg INHALATION RT-Q6H PRN 11/04/21 11/04/21 History Nebulized] Allopurinol [Zyloprim] 200 mg PO DAILY@0800 11/04/21 11/04/21 History Aspirin EC [Ecotrin Low Dose] 81 mg PO DAILY@1700 11/04/21 11/04/21 History Budesonide [Pulmicort] 0.5 mg INHALATION BID@0700,1900 11/04/21 11/04/21 History Carvedilol [Coreg] 25 mg PO BID@0800,1700 11/04/21 11/04/21 History Clopidogrel [Plavix] 75 mg PO DAILY@0800 11/04/21 11/04/21 History DULoxetine HCL [Cymbalta] 30 mg PO DAILY@2130 11/04/21 11/04/21 History Epoetin Russ [Procrit] 10,000 unit SQ DIRECTED 11/04/21 11/04/21 History Famotidine [Pepcid] 20 mg PO DAILY@0800 11/04/21 11/04/21 History Gabapentin [Neurontin] 100 mg PO BID@0600,1400 11/04/21 11/04/21 History Ipratropium-Albuterol Nebulize 3 ml INHALATION RT-Q6H PRN 11/04/21 11/04/21 History [Duoneb 0.5 mg-3 mg/3 ml Soln] Melatonin 3 mg PO HS@2100 11/04/21 11/04/21 History NIFEdipine [NIFEdipine ER] 90 mg PO DAILY@0800 11/04/21 11/04/21 History Sodium Bicarbonate 325 mg PO DAILY@0800 11/04/21 11/04/21 History Sodium Zirconium Cyclosilicate 10 gm PO DAILY@0600 11/04/21 11/04/21 History [Lokelma] Torsemide [Demadex] 20 mg PO DAILY@0800 11/04/21 11/04/21 History Allergies Allergy/AdvReac Type Severity Reaction Status Date / Time No Known Allergies Allergy Verified 11/04/21 11:14 Surgical - Exam Vital Signs Temp Pulse Resp BP Pulse Ox 98.2 F 68 18 128/52 98 11/03/21 23:53 11/03/21 23:53 11/03/21 23:53 11/03/21 23:53 11/03/21 23:53 General appearance: The patient is alert, oriented, appears in no acute distress. Obese. HET: Head is normocephalic and atraumatic. Pupils are equal and reactive. Neck: Supple without lymphadenopathy. Trachea midline. No audible carotid bruit. Heart: S1 S2. Regular rate and rhythm. Lungs: Clear to auscultation bilaterally. Abdomen: Soft, nontender, nondistended. Extremities: Normal skin color and turgor. No cyanosis, rash, ulceration, clubbing, or edema. Radial pulses +2 bilaterally. Neurological: No focal deficits. Strength and sensation are grossly intact. Results - Labs 11/05/21 05:59 11/05/21 05:59 Abnormal Lab Results - Last 24 Hours (Table) 11/05/21 11/05/21 11/05/21 Range/Units 05:59 05:59 12:34 RBC 2.46 L (4.10-5.20) X 10*6/uL Hgb 7.3 L (12.0-15.0) g/dL Hct 23.6 L (37.2-46.3) % MCHC 30.9 L (32.0-37.0) g/dL Immature Gran # 0.05 H (0.00-0.04) X 10*3/uL Anion Gap 9.40 L (10.00-18.00) mmol/L BUN 94.4 H (9.0-27.0) mg/dL Creatinine 4.2 H (0.6-1.5) mg/dL Est GFR (CKD-EPI)AfAm 12.1 L (60.0-200.0) Est GFR (CKD-EPI)NonAf 10.4 L (60.0-200.0) BUN/Creatinine Ratio 22.48 H (12.00-20.00) Ratio Glucose 51 L (70-110) mg/dL POC Glucose (mg/dL) 137 H (75-99) mg/dL Total Protein 5.8 L (6.2-8.2) g/dL Albumin 3.2 L (3.8-4.9) g/dL Albumin/Globulin Ratio 1.23 L (1.60-3.17) g/dL 11/05/21 11/05/21 11/06/21 Range/Units 17:08 20:31 07:03 RBC (4.10-5.20) X 10*6/uL Hgb (12.0-15.0) g/dL Hct (37.2-46.3) % MCHC (32.0-37.0) g/dL Immature Gran # (0.00-0.04) X 10*3/uL Anion Gap (10.00-18.00) mmol/L BUN (9.0-27.0) mg/dL Creatinine (0.6-1.5) mg/dL Est GFR (CKD-EPI)AfAm (60.0-200.0) Est GFR (CKD-EPI)NonAf (60.0-200.0) BUN/Creatinine Ratio (12.00-20.00) Ratio Glucose (70-110) mg/dL POC Glucose (mg/dL) 155 H 157 H 46 L (75-99) mg/dL Total Protein (6.2-8.2) g/dL Albumin (3.8-4.9) g/dL Albumin/Globulin Ratio (1.60-3.17) g/dL 11/06/21 Range/Units 07:34 RBC (4.10-5.20) X 10*6/uL Hgb (12.0-15.0) g/dL Hct (37.2-46.3) % MCHC (32.0-37.0) g/dL Immature Gran # (0.00-0.04) X 10*3/uL Anion Gap (10.00-18.00) mmol/L BUN (9.0-27.0) mg/dL Creatinine (0.6-1.5) mg/dL Est GFR (CKD-EPI)AfAm (60.0-200.0) Est GFR (CKD-EPI)NonAf (60.0-200.0) BUN/Creatinine Ratio (12.00-20.00) Ratio Glucose (70-110) mg/dL POC Glucose (mg/dL) 68 L (75-99) mg/dL Total Protein (6.2-8.2) g/dL Albumin (3.8-4.9) g/dL Albumin/Globulin Ratio (1.60-3.17) g/dL Microbiology - Last 24 Hours (Table) 11/04/21 20:36 Urine Culture - Preliminary Urine,Voided Diabetes panel 11/05/21 Range/Units 05:59 Sodium 138 (135-145) mmol/L Potassium 4.1 (3.5-5.5) mmol/L Chloride 104 (96-109) mmol/L Carbon Dioxide 24.6 (20.0-27.5) mmol/L BUN 94.4 H (9.0-27.0) mg/dL Creatinine 4.2 H (0.6-1.5) mg/dL Glucose 51 L (70-110) mg/dL Calcium 8.8 (8.7-10.3) mg/dL AST 18 (13-35) U/L ALT 26 (8-44) U/L Alkaline Phosphatase 62 (41-126) U/L Total Protein 5.8 L (6.2-8.2) g/dL Albumin 3.2 L (3.8-4.9) g/dL Calcium panel 11/05/21 Range/Units 05:59 Calcium 8.8 (8.7-10.3) mg/dL Albumin 3.2 L (3.8-4.9) g/dL Pituitary panel 11/05/21 Range/Units 05:59 Sodium 138 (135-145) mmol/L Potassium 4.1 (3.5-5.5) mmol/L Chloride 104 (96-109) mmol/L Carbon Dioxide 24.6 (20.0-27.5) mmol/L BUN 94.4 H (9.0-27.0) mg/dL Creatinine 4.2 H (0.6-1.5) mg/dL Glucose 51 L (70-110) mg/dL Calcium 8.8 (8.7-10.3) mg/dL Adrenal panel 11/05/21 Range/Units 05:59 Sodium 138 (135-145) mmol/L Potassium 4.1 (3.5-5.5) mmol/L Chloride 104 (96-109) mmol/L Carbon Dioxide 24.6 (20.0-27.5) mmol/L BUN 94.4 H (9.0-27.0) mg/dL Creatinine 4.2 H (0.6-1.5) mg/dL Glucose 51 L (70-110) mg/dL Calcium 8.8 (8.7-10.3) mg/dL Total Bilirubin 0.30 (0.30-1.20) mg/dL AST 18 (13-35) U/L ALT 26 (8-44) U/L Alkaline Phosphatase 62 (41-126) U/L Total Protein 5.8 L (6.2-8.2) g/dL Albumin 3.2 L (3.8-4.9) g/dL - Imaging Chest x-ray: report reviewed (Cardiomegaly. There are new small pleural effusions compared to old exam. No obvious heart failure.) Assessment and Plan Assessment: 1. Acute on Chronic kidney disease with need for hemodialysis 2. CVA, on Plavix 3. History coronary artery disease 4. History of congestive heart failure 5. History of thyroid cancer 6. Diabetes mellitus 7. COPD Plan: 1. Keep nothing by mouth 2. Hold Plavix 3. Patient scheduled for her tunneled dialysis catheter today 4. Hemodialysis per recommendations from nephrology 5. Monitor access site closely for bleeding due to patient being on Plavix Thank you for this consultation, we will continue to follow. The impression and plan of care has been dictated as directed. I performed a history and examination of this patient, discussed the same with the dictator. I agree with the dictator's note ,documented as a scribe. Any additional findings or plans will be noted.
--- NOTE | 2021-11-06 09:46 | P.PN ---
Subjective Progress Note Date: 11/06/21 History of present illness: This is a 66-year-old patient of Dr. 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 Spencer, she is a permanent resident at [facility]. She was sent to the emergency room for [facility] due to elevated labs. BUN 113, creatinine 4.53. Discussed with the patient will have a dialysis catheter placed for dialysis. Patient was complaining of abdominal pain with nausea and no vomiting prior to the lab work. At this time patient is found resting comfortably in bed able to answer questions. She states that she still has some abdominal pain with nausea no vomiting. Denies any chest pain or shortness of breath. Patient has been afebrile. Heart rate 74, respirations 16, blood pressure 130/67 pulse ox 98% on 3 L. WBC 7.0, hemoglobin 8.0, platelets 162, sodium 136, potassium 141, BUN 113, creatinine 4.53, magnesium 2.6 11/05: She is examined in bed. Continues to complain of nausea and weakness and fatigue. Patient denies any vomiting or diarrhea. Awaiting her a.m. labs to determine if we will proceed with dialysis. If there is no improvement to her kidney function dialysis will be started tomorrow. BUN 94.4, creatinine 4.2 which is slightly improved. However patient does not feel any better. She remains afebrile, heart rate 75, respirations 16, blood pressure 136/70, pulse ox 97% on 3 L. 11/06: Patient had a low blood sugar of 46 this morning otherwise blood sugars are running between 137 and 157. Levemir decreased by 50% to 20 units at bedtime. Urine culture is in progress. Patient has been afebrile, heart rate 74, blood pressure 149/77, pulse ox 99% on 3 L nasal cannula. Consult was added for vascular surgery regarding access for dialysis. Repeat blood work for today remains pending Review Of Systems: Constitutional: No fever, no chills, no night sweats. No weight change. No weakness, fatigue or lethargy. No daytime sleepiness. EENT: No headache. No blurred vision or double vision, no loss of vision. No loss of Hearing, no ringing in the ears, no dizziness. No nasal drainage or congestion. No epistaxis. No sore throat. Lungs: No shortness of breath, cough, no sputum production. No wheezing. Cardiovascular: No chest pain, no lower extremity edema. No palpitations. No paroxysmal nocturnal dyspnea. No orthopnea. No lightheadedness or dizziness. No syncopal episodes. Abdominal: Reports abdominal discomfort. Denies nausea, no vomiting. no diarrhea. No constipation. No bloody or tarry stools. no loss of appetite. Genitourinary: No dysuria, increased frequency, urgency. No urinary retention. Musculoskeletal: No myalgias. No muscle weakness, no gait dysfunction, no frequent falls. No back pain. No neck pain. Integumentary: No wounds, no lesions. No rash or pruritus. No unusual bruising. No change in hair or nails. Neurologic: No aphasia. No facial droop. No change in mentation. No head injury. No headache. No paralysis. No paresthesia. Psychiatric: No depression. No anxiety. No mood swings. Endocrine: No abnormal blood sugars. No weight change. No excessive sweating or thirst. Physical examination General Appearance: Alert, cooperative, no distress, found resting comfortably in bed in no acute distress Neck HEENT: Supple, no lymphadenopathy, no thyroid enlargement, no carotid brui ts. Lungs: Clear to auscultation without crackles or wheezes no rhonchi, no deformity. Chest Wall: Chest wall normal expansion with deep inspiration no tenderness and no deformity was found on exam, no costochondral pain or discomfort. Heart: Regular rate and rhythm, S1, S2 normal, no murmur, rub or gallop. Back: Symmetric, no curvature, ROM normal, no CVA tenderness. Abdomen: Soft, non-tender, no rebound or rigidity, no hepatosplenomegaly. Extremities: Extremities normal, atraumatic, no cyanosis or edema. Pulses: 2+ and symmetric. Skin: Skin color, texture, tugor normal, no rashes or lesions. Neurologic: Alert oriented x3 cranial nerves II through XII intact, no motor deficit, no abnormal balance or gait Assessment and plan 1. Acute on chronic renal failure. Consult nephrology appreciated, monitor BUN/creatinine, dialysis more likely to start Saturday, consult with vascular surgery. 0.9 normal saline hydration at 75 ML's per hour. PhosLo 660 mg 3 times a day, sodium bicarbonate 650 mg by mouth 3 times a day 2. Abdominal pain with nausea no vomiting secondary to uremia. Continue with hydration. 3. Diabetes mellitus type 2, uncontrolled with hypoglycemia most likely due to poor oral intake. Levemir decreased to 20 units subcu daily at bedtime, Accu- Cheks before meals at bedtime 4. Rheumatoid arthritis secondary to end-stage renal disease. Neurontin 400 mg by mouth 3 times a day 5. COPD. Ventolin, Flovent, Singulair 10 mg by mouth at bedtime 6. Coronary artery disease prior cardiac stent. Amlodipine 5 mg by mouth, carvedilol 0.5 mg by mouth, Lasix 40 mg by mouth twice a day, Imdur 30 mg by mouth, aspirin 81 mg by mouth 7. History of thyroid cancer on Levothyroxine 176 MCG by mouth 8. Chronic pain. Continue with Cymbalta and gabapentin. 9. Anemia of chronic disease. Continue with Feosol 325 mg by mouth 10. Hyperlipidemia. Atorvastatin 40 mg by mouth at bedtime 11. GERD/GI prophylaxis. Carafate 1 g by mouth 3 times a day, Protonix 40 mg by mouth 12. DVT prophylaxis. Heparin subcu 5000 units CODE STATUS: Full code Discharge plan: Return to [facility] possibly Saturday Impression and plan of care have been directed as dictated by the signing physician. Elicia Elizabeth nurse practitioner acting as scribe for signing physician. Objective - Vital Signs Vital signs: Vital Signs Temp 98.4 F 11/06/21 04:17 Pulse 74 11/06/21 04:17 Resp 18 11/06/21 04:17 BP 149/77 11/06/21 04:17 Pulse Ox 99 11/06/21 04:17 Intake & Output 11/05/21 11/06/21 11/06/21 18:59 06:59 18:59 Intake Total 360 1260 Output Total 1400 1200 Balance -1040 60 Intake: Intake, IV Titration 900 Amount Sodium Chloride 0.9% 1, 900 000 ml @ 75 mls/hr IV . [id number] [id number] Rx#:[id number] Oral 360 360 Output: Urine 1400 1200 Other: Voiding Method Bedside Commode Bedside Commode # Voids 2 # Bowel Movements 1 - Labs CBC & Chem 7: 11/05/21 05:59 11/05/21 05:59 Labs: Abnormal Lab Results - Last 24 Hours (Table) 11/05/21 11/05/21 11/05/21 Range/Units 05:59 05:59 12:34 RBC 2.46 L (4.10-5.20) X 10*6/uL Hgb 7.3 L (12.0-15.0) g/dL Hct 23.6 L (37.2-46.3) % MCHC 30.9 L (32.0-37.0) g/dL Immature Gran # 0.05 H (0.00-0.04) X 10*3/uL Anion Gap 9.40 L (10.00-18.00) mmol/L BUN 94.4 H (9.0-27.0) mg/dL Creatinine 4.2 H (0.6-1.5) mg/dL Est GFR (CKD-EPI)AfAm 12.1 L (60.0-200.0) Est GFR (CKD-EPI)NonAf 10.4 L (60.0-200.0) BUN/Creatinine Ratio 22.48 H (12.00-20.00) Ratio Glucose 51 L (70-110) mg/dL POC Glucose (mg/dL) 137 H (75-99) mg/dL Total Protein 5.8 L (6.2-8.2) g/dL Albumin 3.2 L (3.8-4.9) g/dL Albumin/Globulin Ratio 1.23 L (1.60-3.17) g/dL 11/05/21 11/05/21 11/06/21 Range/Units 17:08 20:31 07:03 RBC (4.10-5.20) X 10*6/uL Hgb (12.0-15.0) g/dL Hct (37.2-46.3) % MCHC (32.0-37.0) g/dL Immature Gran # (0.00-0.04) X 10*3/uL Anion Gap (10.00-18.00) mmol/L BUN (9.0-27.0) mg/dL Creatinine (0.6-1.5) mg/dL Est GFR (CKD-EPI)AfAm (60.0-200.0) Est GFR (CKD-EPI)NonAf (60.0-200.0) BUN/Creatinine Ratio (12.00-20.00) Ratio Glucose (70-110) mg/dL POC Glucose (mg/dL) 155 H 157 H 46 L (75-99) mg/dL Total Protein (6.2-8.2) g/dL Albumin (3.8-4.9) g/dL Albumin/Globulin Ratio (1.60-3.17) g/dL 11/06/21 Range/Units 07:34 RBC (4.10-5.20) X 10*6/uL Hgb (12.0-15.0) g/dL Hct (37.2-46.3) % MCHC (32.0-37.0) g/dL Immature Gran # (0.00-0.04) X 10*3/uL Anion Gap (10.00-18.00) mmol/L BUN (9.0-27.0) mg/dL Creatinine (0.6-1.5) mg/dL Est GFR (CKD-EPI)AfAm (60.0-200.0) Est GFR (CKD-EPI)NonAf (60.0-200.0) BUN/Creatinine Ratio (12.00-20.00) Ratio Glucose (70-110) mg/dL POC Glucose (mg/dL) 68 L (75-99) mg/dL Total Protein (6.2-8.2) g/dL Albumin (3.8-4.9) g/dL Albumin/Globulin Ratio (1.60-3.17) g/dL Microbiology - Last 24 Hours (Table) 11/04/21 20:36 Urine Culture - Preliminary Urine,Voided
[2021-11-06 09:47] LABS: Basophils # (A) 0.01 X 10*3/uL (0.00-0.10); Basophils % (A) 0.1 %; Eosinophils # (A) 0.31 X 10*3/uL (0.04-0.35); Eosinophils % (A) 4.2 %; HCT 24.9 % (37.2-46.3); HGB 7.8 g/dL (12.0-15.0); Immature Grans, Automated 0.8 %; Lymphocytes # (A) 1.15 X 10*3/uL (0.90-5.00); Lymphocytes % (A) 15.5 %; MCH 30.1 pg (27.0-32.0); MCHC 31.3 g/dL (32.0-37.0); MCV 96.1 fL (80.0-97.0); Mean Platelet Volume 11.3 fL (9.5-12.2); Monocytes # (A) 0.79 X 10*3/uL (0.20-1.00); Monocytes % (A) 10.7 %; NRBC Per 100 WBC 0 /100 WBCS (0.0-0.0); Neutrophils # (A) 5.09 X 10*3/uL (1.80-7.70); Neutrophils % (A) 68.7 %; Platelet Count 139 X 10*3/uL (140-440); RBC 2.59 X 10*6/uL (4.10-5.20); RDW 14.2 % (11.5-14.5); WBC 7.41 X 10*3/uL (4.50-10.00)
[2021-11-06 09:59] LABS: African American GFR (CKD) 12.8 (60.0-200.0); Albumin 3.3 g/dL (3.8-4.9); Albumin/Globulin Ratio 1.22 (1.60-3.17); Anion Gap 9.6 mmol/L (10.00-18.00); BUN/Creat Ratio 22.33 Ratio (12.00-20.00); Blood Urea Nitrogen 89.3 mg/dL (9.0-27.0); Calcium 8.9 mg/dL (8.7-10.3); Carbon Dioxide 26.4 mmol/L (20.0-27.5); Globulin 2.7 g/dL (1.6-3.3); Non-African American GFR(CKD) 11.1 (60.0-200.0); Potassium 3.8 mmol/L (3.5-5.5); Total Bilirubin 0.2 mg/dL (0.30-1.20)
[2021-11-06] MEDS ORDERED: LIDOCAINE 1% INJ 10MG/ML (30 ML VIAL-PF) SQ ONE (10:54)
[2021-11-06] MEDS ORDERED: MIDAZOLAM 2 MG/2 ML VIAL IV ONE (10:57)
[2021-11-06] MEDS ORDERED: HEPARIN SODIUM 1,000 UN/ML (10ML VL) IV ONE (11:00)
[2021-11-06] MEDS ORDERED: IV FLUID CONTINUATION 900 ML IV ONE (11:01)
--- NOTE | 2021-11-06 11:39 | P.OP ---
Description of Procedure: Date: 11/06/2021 Preoperative diagnosis: End-stage renal failure Postoperative diagnosis: Same Procedure: Placement of tunneled hemodialysis catheter via right internal jugular vein ultrasound-guided access Surgeon: Herman Leung D.O. Anesthesia: Local with sedation Estimated blood loss: Minimal Complications: None Condition: Stable Indication for procedure: 66-year-old female with history of chronic kidney disease while here at the hospital has developed worsening kidney function is in need of hemodialysis. She has been worked up in the past or a mapping by Dr. Roper and will likely need permanent access in the arm at a later date. She presents to the [facility] for tunneled hemovascular catheter placement. Operative narrative: After written and informed consent was obtained and all risks, benefits and competitions were described the patient was brought to the [facility] and laid in a supine position. The area of the right neck was prepped and draped in the usual sterile fashion. Timeout was performed in normal fashion and antibiotics were administered prior to access. Utilizing ultrasound the right internal jugular vein was visualized and shown to be patent without any thrombus. Under ultrasound guidance the vein was then cannulated with dark nonpulsatile blood flow visualized. Guidewire was placed under direct visualization of fluoroscopy into the superior vena cava. Attention was then placed to the chest wall. A small incision was created on the lateral aspect of the chest wall as well as the access site at the neck. A 23 centimeter palindrome hemodialysis catheter was then tunneled from the chest wall to the neck. Serial dilation was then performed and breakaway sheath was placed into the internal jugular vein under direct visualization of fluoroscopy. The catheter was then placed within the break away sheath the sheath was removed. The ports were assessed for patency and yariel and flushed easily and then were hep-locked. The catheter was then sutured in place, cleansed and dressings were placed. The patient tolerated procedure well.
[2021-11-06] MEDS: INSULIN ASPART (NovoLOG) 100 UNIT/ML VIAL SQ SCH ×4 (11:45→21:25)
--- NOTE | 2021-11-06 11:47 | XR ---
EXAMINATION TYPE: XR chest 1V portable DATE OF EXAM: 11/06/2021 Comparison: 11/04/2021 Clinical History: 66-year-old female postoperative evaluation, R/O pneumo Findings: Partially visualized and reverse right shoulder plasty. Right-sided tunneled hemodialysis catheter wi th tips at the cavoatrial junction. Heart remains moderately enlarged with interstitial prominence. T here is no appreciable pneumothorax. No consolidation or pleural effusion. Impression: Interval placement of a double-lumen hemodialysis catheter on the right. Tip at the cavoatrial juncti on. No appreciable pneumothorax. Continued moderate cardiomegaly.
--- NOTE | 2021-11-06 11:49 | IR ---
EXAMINATION TYPE: IR cvc insert central tunneled DATE OF EXAM: 11/06/2021 COMPARISON: NONE HISTORY: Fluoroscopy time. Fluoroscopy was provided to the referring clinician.
[2021-11-06] MEDS: amLODIPine 5 MG TAB PO SCH (12:28)
[2021-11-06] MEDS: ISOSORBIDE MONONITRATE ER 30 MG TAB.ER.24H PO SCH (12:28)
[2021-11-06] MEDS: FUROSEMIDE 40 MG TAB PO SCH ×2 (12:28→16:10)
[2021-11-06 12:32] LABS: Glucose,Whole Blood 80 mg/dL (75-99)
[2021-11-06] MEDS: CALCIUM ACETATE 667 MG TAB PO SCH ×3 (12:50→21:25)
[2021-11-06] MEDS: SUCRALFATE 1 GM TAB PO SCH ×3 (12:50→18:03)
[2021-11-06] MEDS: ASPIRIN 81 MG PO SCH (12:50)
[2021-11-06] MEDS: DOCUSATE 100 MG CAP PO SCH ×2 (12:50→21:25)
[2021-11-06] MEDS: DULoxetine HCL 60 MG CAPSULE.DR PO SCH (12:50)
[2021-11-06] MEDS: PANTOPRAZOLE 40 MG TABLET PO SCH (12:50)
[2021-11-06] MEDS: GABAPENTIN 100 MG CAP PO SCH ×2 (12:51→21:25)
--- NOTE | 2021-11-06 13:56 | P.PN ---
Subjective Patient is seen for follow-up for acute kidney injury and top of chronic kidney disease with progressive worsening of renal function. Started on IVF. No improvement in symptoms. Serum creatinine is somewhat improved to 4.0 however patient does not feeling much better. To be started on HD this admission. Pt is scheduled for HD cath today She is agreeable. Objective - Vital Signs Vital signs: Vital Signs Temp 98.4 F 11/06/21 04:17 Pulse 74 11/06/21 04:17 Resp 18 11/06/21 04:17 BP 149/77 11/06/21 04:17 Pulse Ox 99 11/06/21 04:17 Intake & Output 11/05/21 11/06/21 11/06/21 18:59 06:59 18:59 Intake Total 360 1260 100 Output Total 1400 1200 Balance -1040 60 100 Intake: IV 100 Intake, IV Titration 900 Amount Sodium Chloride 0.9% 1, 900 000 ml @ 75 mls/hr IV . [id number] KUNAL Rx#:[id number] Oral 360 360 Output: Urine 1400 1200 Other: Voiding Method Bedside Commode Bedside Commode # Voids 2 1 # Bowel Movements 1 - Exam Awake, comfortable, not in any acute distress Examination of the heart S1 and S2 Examination lungs bilateral breath sounds are heard Abdomen is soft nontender Examination lower extremities shows trace edema bilaterally [employer] exam grossly intact - Labs CBC & Chem 7: 11/06/21 05:38 11/06/21 05:38 Labs: Abnormal Lab Results - Last 24 Hours (Table) 11/05/21 11/05/21 11/06/21 Range/Units 17:08 20:31 05:38 RBC 2.59 L (4.10-5.20) X 10*6/uL Hgb 7.8 L (12.0-15.0) g/dL Hct 24.9 L (37.2-46.3) % MCHC 31.3 L (32.0-37.0) g/dL Plt Count 139 L (140-440) X 10*3/uL Immature Gran # 0.06 H (0.00-0.04) X 10*3/uL Anion Gap (10.00-18.00) mmol/L BUN (9.0-27.0) mg/dL Creatinine (0.6-1.5) mg/dL Est GFR (CKD-EPI)AfAm (60.0-200.0) Est GFR (CKD-EPI)NonAf (60.0-200.0) BUN/Creatinine Ratio (12.00-20.00) Ratio Glucose (70-110) mg/dL POC Glucose (mg/dL) 155 H 157 H (75-99) mg/dL Total Bilirubin (0.30-1.20) mg/dL Total Protein (6.2-8.2) g/dL Albumin (3.8-4.9) g/dL Albumin/Globulin Ratio (1.60-3.17) g/dL 11/06/21 11/06/21 11/06/21 Range/Units 05:38 07:03 07:34 RBC (4.10-5.20) X 10*6/uL Hgb (12.0-15.0) g/dL Hct (37.2-46.3) % MCHC (32.0-37.0) g/dL Plt Count (140-440) X 10*3/uL Immature Gran # (0.00-0.04) X 10*3/uL Anion Gap 9.60 L (10.00-18.00) mmol/L BUN 89.3 H (9.0-27.0) mg/dL Creatinine 4.0 H (0.6-1.5) mg/dL Est GFR (CKD-EPI)AfAm 12.8 L (60.0-200.0) Est GFR (CKD-EPI)NonAf 11.1 L (60.0-200.0) BUN/Creatinine Ratio 22.33 H (12.00-20.00) Ratio Glucose 46 L* (70-110) mg/dL POC Glucose (mg/dL) 46 L 68 L (75-99) mg/dL Total Bilirubin 0.20 L (0.30-1.20) mg/dL Total Protein 6.0 L (6.2-8.2) g/dL Albumin 3.3 L (3.8-4.9) g/dL Albumin/Globulin Ratio 1.22 L (1.60-3.17) g/dL Microbiology - Last 24 Hours (Table) 11/04/21 20:36 Urine Culture - Preliminary Urine,Voided Gram Neg Bacilli Assessment and Plan Assessment: 1. CK D stage V with symptoms of uremia. Patient has been started on IV flui ds. No significant improvement in overall symptoms however creatinine slightly better. Remains volume overloaded. To start HD this admission. 2. Type 2 diabetes 3. Rheumatoid arthritis 4. COPD 5. Coronary artery disease with history of coronary stent 6. CK D mineral bone disorder 7. Metabolic acidosis maintained on oral sodium bicarb Plan: HD today and in am D/c IVF Discharge planning for out pt placement.
[2021-11-06 15:40] LABS: Hepatitis B Surface Antigen Nonreactive (Nonreactive)
[2021-11-06 16:09] LABS: Hepatitis B Surface AB- Quant 3.5 mIU/mL; Hepatitis B Surface Antibody Nonreactive (Nonreactive)
[2021-11-06 17:21] LABS: Glucose,Whole Blood 148 mg/dL (75-99)
[2021-11-06] MEDS: FERROUS SULFATE 325 MG TAB PO SCH (18:04)
[2021-11-06 20:53] LABS: Glucose,Whole Blood 129 mg/dL (75-99)
[2021-11-06] MEDS ORDERED: INSULIN DETEMIR (LEVEMIR) 100 UNIT/ML SYR SQ SCH (21:00)
[2021-11-06] MEDS: ATORVASTATIN 40 MG TAB PO SCH (21:25)
[2021-11-06] MEDS: MONTELUKAST 10 MG TAB PO SCH (21:25)
[2021-11-07 01:50] LABS: Glucose,Whole Blood 120 mg/dL (75-99)
[2021-11-07] MEDS: ACETAMINOPHEN TAB 325 MG TAB PO PRN ×2 (04:13→14:20)
[2021-11-07] MEDS: LEVOTHYROXINE 88 MCG TAB PO SCH (05:00)
[2021-11-07 07:08] LABS: Glucose,Whole Blood 72 mg/dL (75-99)
[2021-11-07] MEDS: FLUTICASONE 110 MCG INHALER INHALATION SCH ×2 (07:23→19:32)
[2021-11-07] MEDS: INSULIN ASPART (NovoLOG) 100 UNIT/ML VIAL SQ SCH ×4 (07:26→21:14)
[2021-11-07] MEDS: carvediloL 12.5 MG TAB PO SCH ×2 (07:59→17:22)
[2021-11-07] MEDS: PANTOPRAZOLE 40 MG TABLET PO SCH (07:59)
[2021-11-07] MEDS: CALCIUM ACETATE 667 MG TAB PO SCH ×3 (08:00→21:14)
[2021-11-07] MEDS: SUCRALFATE 1 GM TAB PO SCH ×3 (08:00→17:22)
[2021-11-07] MEDS: SODIUM BICARBONATE TAB 650 MG TAB PO SCH ×3 (08:01→21:14)
[2021-11-07] MEDS: ASPIRIN 81 MG PO SCH (08:01)
[2021-11-07] MEDS: amLODIPine 5 MG TAB PO SCH (08:01)
[2021-11-07] MEDS: DOCUSATE 100 MG CAP PO SCH ×2 (08:01→21:14)
[2021-11-07] MEDS: DULoxetine HCL 60 MG CAPSULE.DR PO SCH (08:02)
[2021-11-07] MEDS: FUROSEMIDE 40 MG TAB PO SCH ×2 (08:03→17:22)
[2021-11-07] MEDS: ISOSORBIDE MONONITRATE ER 30 MG TAB.ER.24H PO SCH (08:10)
[2021-11-07] MEDS: GABAPENTIN 100 MG CAP PO SCH ×2 (08:10→21:14)
--- NOTE | 2021-11-07 10:49 | P.PN ---
Subjective Progress Note Date: 11/07/21 Principal diagnosis: End-stage renal disease need for hemodialysis This is 66-year-old male who is seen and the follow-up for end-stage renal disease status post right IJ tunneled hemo-dialysis catheter placement yesterday. She states she did receive hemodialysis yesterday without any complications. She has not had any significant amount of bleeding from surgical site. States she has some mild tenderness but that is all. She has full range of motion of her neck. Chest x-ray showed interval placement of double-lumen hemodialysis catheter on the right. Tip at the caval atrial junction. No appreciable pneumothorax. Objective - Vital Signs Vital signs: Vital Signs Temp 98.0 F 11/07/21 04:06 Pulse 62 11/07/21 09:14 Resp 18 11/07/21 09:14 BP 173/75 11/07/21 08:13 Pulse Ox 98 11/07/21 08:13 Intake & Output 11/06/21 11/07/21 11/07/21 18:59 06:59 18:59 Intake Total 100 Output Total 1000 Balance -900 Intake: IV 100 Output: Hemodialysis 1000 Other: Voiding Method Bedside Commode # Voids 2 1 - Exam General appearance: The patient is alert, oriented, appears in no acute distress. HET: Head is normocephalic and atraumatic. Pupils are equal and reactive. Neck: Supple without lymphadenopathy. Trachea midline. Incision well approximated without any hematoma. Chest: Tunneled dialysis catheter in place, no active bleeding. Heart: S1 S2. Regular rate and rhythm. Lungs: Clear to auscultation bilaterally. Abdomen: Soft, nontender, nondistended. Extremities: Normal skin color and turgor. Neurological: No focal deficits. Alert and oriented 3. - Labs CBC & Chem 7: 11/06/21 05:38 11/06/21 05:38 Labs: Abnormal Lab Results - Last 24 Hours (Table) 11/06/21 11/06/21 11/06/21 Range/Units 05:38 05:38 17:20 RBC 2.59 L (4.10-5.20) X 10*6/uL Hgb 7.8 L (12.0-15.0) g/dL Hct 24.9 L (37.2-46.3) % MCHC 31.3 L (32.0-37.0) g/dL Plt Count 139 L (140-440) X 10*3/uL Immature Gran # 0.06 H (0.00-0.04) X 10*3/uL Anion Gap 9.60 L (10.00-18.00) mmol/L BUN 89.3 H (9.0-27.0) mg/dL Creatinine 4.0 H (0.6-1.5) mg/dL Est GFR (CKD-EPI)AfAm 12.8 L (60.0-200.0) Est GFR (CKD-EPI)NonAf 11.1 L (60.0-200.0) BUN/Creatinine Ratio 22.33 H (12.00-20.00) Ratio Glucose 46 L* (70-110) mg/dL POC Glucose (mg/dL) 148 H (75-99) mg/dL Total Bilirubin 0.20 L (0.30-1.20) mg/dL Total Protein 6.0 L (6.2-8.2) g/dL Albumin 3.3 L (3.8-4.9) g/dL Albumin/Globulin Ratio 1.22 L (1.60-3.17) g/dL 11/06/21 11/07/21 11/07/21 Range/Units 20:26 01:49 07:07 RBC (4.10-5.20) X 10*6/uL Hgb (12.0-15.0) g/dL Hct (37.2-46.3) % MCHC (32.0-37.0) g/dL Plt Count (140-440) X 10*3/uL Immature Gran # (0.00-0.04) X 10*3/uL Anion Gap (10.00-18.00) mmol/L BUN (9.0-27.0) mg/dL Creatinine (0.6-1.5) mg/dL Est GFR (CKD-EPI)AfAm (60.0-200.0) Est GFR (CKD-EPI)NonAf (60.0-200.0) BUN/Creatinine Ratio (12.00-20.00) Ratio Glucose (70-110) mg/dL POC Glucose (mg/dL) 129 H 120 H 72 L (75-99) mg/dL Total Bilirubin (0.30-1.20) mg/dL Total Protein (6.2-8.2) g/dL Albumin (3.8-4.9) g/dL Albumin/Globulin Ratio (1.60-3.17) g/dL Microbiology - Last 24 Hours (Table) 11/04/21 20:36 Urine Culture - Preliminary Urine,Voided Gram Neg Bacilli Assessment and Plan Assessment: 1. Stage renal disease status post tunneled hemodialysis catheter on dialysis 2. CVA, on Plavix 3. History coronary artery disease 4. History of congestive heart failure 5. History of thyroid cancer 6. Diabetes mellitus 7. COPD Plan: 1. Diet as tolerated 2. May resume Plavix tomorrow 3. Hemodialysis per recommendations from nephrology Thank you for this consultation, patient is cleared for discharge from vascular surgery. The impression and plan of care has been dictated as directed. I performed a history and examination of this patient, discussed the same with the dictator. I agree with the dictator's note ,documented as a scribe. Any additional findings or plans will be noted.
[2021-11-07 11:52] LABS: Glucose,Whole Blood 204 mg/dL (75-99)
--- NOTE | 2021-11-07 12:48 | P.PN ---
Subjective Patient is seen for follow-up for acute kidney injury and top of chronic kidney disease with progressive worsening of renal function. Started on IVF. No improvement in symptoms. Serum creatinine is somewhat improved to 4.0 however patient does not feeling much better. To be started on HD this admission. Status post first treatment of hemodialysis yesterday. Patient tolerated it well. She is scheduled for second treatment today. Patient states that her abdominal pain has completely resolved. Objective - Vital Signs Vital signs: Vital Signs Temp 98.0 F 11/07/21 04:06 Pulse 62 11/07/21 09:14 Resp 18 11/07/21 09:14 BP 173/75 11/07/21 08:13 Pulse Ox 98 11/07/21 08:13 Intake & Output 11/06/21 11/07/21 11/07/21 18:59 06:59 18:59 Intake Total 100 Output Total 1000 Balance -900 Intake: IV 100 Output: Hemodialysis 1000 Other: Voiding Method Bedside Commode # Voids 2 1 - Exam Awake, comfortable, not in any acute distress Examination of the heart S1 and S2 Examination lungs bilateral breath sounds are heard Abdomen is soft nontender Examination lower extremities shows 1+ edema bilaterally [employer] exam grossly intact - Labs CBC & Chem 7: 11/06/21 05:38 11/06/21 05:38 Labs: Abnormal Lab Results - Last 24 Hours (Table) 11/06/21 11/06/21 11/07/21 Range/Units 17:20 20:26 01:49 POC Glucose (mg/dL) 148 H 129 H 120 H (75-99) mg/dL 11/07/21 11/07/21 Range/Units 07:07 11:50 POC Glucose (mg/dL) 72 L 204 H (75-99) mg/dL Microbiology - Last 24 Hours (Table) 11/04/21 20:36 Urine Culture - Preliminary Urine,Voided Gram Neg Bacilli Assessment and Plan Assessment: 1. CK D stage V with symptoms of uremia. Patient has been started on IV fluids. No significant improvement in overall symptoms however creatinine slightly better. Remains volume overloaded. To start HD this admission. 2. Type 2 diabetes 3. Rheumatoid arthritis 4. COPD 5. Coronary artery disease with history of coronary stent 6. CK D mineral bone disorder 7. Metabolic acidosis maintained on oral sodium bicarb Plan: Repeat hemodialysis today Continue off of IV fluids and Discharge planning to arrange for outpatient chair time
--- NOTE | 2021-11-07 14:47 | P.PN ---
Subjective Progress Note Date: 11/07/21 History of present illness: This is a 66-year-old patient of Dr. 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 Spencer, she is a permanent resident at [facility]. She was sent to the emergency room for [facility] due to elevated labs. BUN 113, creatinine 4.53. Discussed with the patient will have a dialysis catheter placed for dialysis. Patient was complaining of abdominal pain with nausea and no vomiting prior to the lab work. At this time patient is found resting comfortably in bed able to answer questions. She states that she still has some abdominal pain with nausea no vomiting. Denies any chest pain or shortness of breath. Patient has been afebrile. Heart rate 74, respirations 16, blood pressure 130/67 pulse ox 98% on 3 L. WBC 7.0, hemoglobin 8.0, platelets 162, sodium 136, potassium 141, BUN 113, creatinine 4.53, magnesium 2.6 11/05: She is examined in bed. Continues to complain of nausea and weakness and fatigue. Patient denies any vomiting or diarrhea. Awaiting her a.m. labs to determine if we will proceed with dialysis. If there is no improvement to her kidney function dialysis will be started tomorrow. BUN 94.4, creatinine 4.2 which is slightly improved. However patient does not feel any better. She remains afebrile, heart rate 75, respirations 16, blood pressure 136/70, pulse ox 97% on 3 L. 11/06: Patient had a low blood sugar of 46 this morning otherwise blood sugars are running between 137 and 157. Levemir decreased by 50% to 20 units at bedtime. Urine culture is in progress. Patient has been afebrile, heart rate 74, blood pressure 149/77, pulse ox 99% on 3 L nasal cannula. Consult was added for vascular surgery regarding access for dialysis. Repeat blood work for today remains pending 11/07: Patient underwent first hemodialysis yesterday with 1 L of. She is scheduled for second treatment today. No abdominal pain, no nausea or vomiting. Patient has been afebrile, heart rate 62, blood pressure 173/75, pulse ox 90% on 3 L nasal cannula. Capillary blood glucose running between 72 and 204. Levemir further decreased to 15 units at bedtime. Repeat blood work ordered for tomorrow. Urine culture showing gram-negative bacilli. Plan for discharge back to [facility] tomorrow. Review Of Systems: Constitutional: No fever, no chills, no night sweats. No weight change. No weakness, fatigue or lethargy. No daytime sleepiness. EENT: No headache. No blurred vision or double vision, no loss of vision. No loss of Hearing, no ringing in the ears, no dizziness. No nasal drainage or congestion. No epistaxis. No sore throat. Lungs: No shortness of breath, cough, no sputum production. No wheezing. Cardiovascular: No chest pain, no lower extremity edema. No palpitations. No paroxysmal nocturnal dyspnea. No orthopnea. No lightheadedness or dizziness. No syncopal episodes. Abdominal: Reports abdominal discomfort. Denies nausea, no vomiting. no di arrhea. No constipation. No bloody or tarry stools. no loss of appetite. Genitourinary: No dysuria, increased frequency, urgency. No urinary retention. Musculoskeletal: No myalgias. No muscle weakness, no gait dysfunction, no frequent falls. No back pain. No neck pain. Integumentary: No wounds, no lesions. No rash or pruritus. No unusual bruising. No change in hair or nails. Neurologic: No aphasia. No facial droop. No change in mentation. No head injury. No headache. No paralysis. No paresthesia. Psychiatric: No depression. No anxiety. No mood swings. Endocrine: No abnormal blood sugars. No weight change. No excessive sweating or thirst. Physical examination General Appearance: Alert, cooperative, no distress, found resting comfortably in bed in no acute distress Neck HEENT: Supple, no lymphadenopathy, no thyroid enlargement, no carotid bruits. Lungs: Clear to auscultation without crackles or wheezes no rhonchi, no deformity. Chest Wall: Chest wall normal expansion with deep inspiration no tenderness and no deformity was found on exam, no costochondral pain or discomfort. Heart: Regular rate and rhythm, S1, S2 normal, no murmur, rub or gallop. Back: Symmetric, no curvature, ROM normal, no CVA tenderness. Abdomen: Soft, non-tender, no rebound or rigidity, no hepatosplenomegaly. Extremities: Extremities normal, atraumatic, no cyanosis or edema. Pulses: 2+ and symmetric. Skin: Skin color, texture, tugor normal, no rashes or lesions. Neurologic: Alert oriented x3 cranial nerves II through XII intact, no motor deficit, no abnormal balance or gait Assessment and plan 1. Acute on chronic renal failure. Consult nephrology appreciated, patient is status post initial hemodialysis 11/06 with removal of 1 L, second dialysis scheduled for today. Monitor I&O, daily weights, renal function 2. Abdominal pain with nausea no vomiting secondary to uremia. 3. Diabetes mellitus type 2, uncontrolled with hypoglycemia most likely due to poor oral intake. Levemir decreased to 20 units subcu daily at bedtime, Accu-Ch eks before meals at bedtime 4. Rheumatoid arthritis secondary to end-stage renal disease. Neurontin 400 mg by mouth 3 times a day 5. COPD. Ventolin, Flovent, Singulair 10 mg by mouth at bedtime 6. Coronary artery disease prior cardiac stent. Amlodipine 5 mg by mouth, carvedilol 0.5 mg by mouth, Lasix 40 mg by mouth twice a day, Imdur 30 mg by mouth, aspirin 81 mg by mouth 7. History of thyroid cancer on Levothyroxine 176 MCG by mouth 8. Chronic pain. Continue with Cymbalta and gabapentin. 9. Anemia of chronic disease. Continue with Feosol 325 mg by mouth 10. Hyperlipidemia. Atorvastatin 40 mg by mouth at bedtime 11. GERD/GI prophylaxis. Carafate 1 g by mouth 3 times a day, Protonix 40 mg by mouth 12. DVT prophylaxis. Heparin subcu 5000 units CODE STATUS: Full code Discharge plan: Return to [facility] on Saturday Impression and plan of care have been directed as dictated by the signing physician. Elicia Elizabeth nurse practitioner acting as scribe for signing ph ysician. Objective - Vital Signs Vital signs: Vital Signs Temp 98.0 F 11/07/21 04:06 Pulse 69 11/07/21 04:06 Resp 16 11/07/21 04:06 BP 149/78 11/07/21 04:06 Pulse Ox 95 11/07/21 07:23 Intake & Output 05/16/22 05/17/22 05/17/22 18:59 06:59 18:59 Intake Total 100 Output Total 1000 Balance -900 Intake: IV 100 Output: Hemodialysis 1000 Other: # Voids 2 1 - Labs CBC & Chem 7: 11/06/21 05:38 11/06/21 05:38 Labs: Abnormal Lab Results - Last 24 Hours (Table) 11/06/21 11/06/21 11/06/21 Range/Units 05:38 05:38 17:20 RBC 2.59 L (4.10-5.20) X 10*6/uL Hgb 7.8 L (12.0-15.0) g/dL Hct 24.9 L (37.2-46.3) % MCHC 31.3 L (32.0-37.0) g/dL Plt Count 139 L (140-440) X 10*3/uL Immature Gran # 0.06 H (0.00-0.04) X 10*3/uL Anion Gap 9.60 L (10.00-18.00) mmol/L BUN 89.3 H (9.0-27.0) mg/dL Creatinine 4.0 H (0.6-1.5) mg/dL Est GFR (CKD-EPI)AfAm 12.8 L (60.0-200.0) Est GFR (CKD-EPI)NonAf 11.1 L (60.0-200.0) BUN/Creatinine Ratio 22.33 H (12.00-20.00) Ratio Glucose 46 L* (70-110) mg/dL POC Glucose (mg/dL) 148 H (75-99) mg/dL Total Bilirubin 0.20 L (0.30-1.20) mg/dL Total Protein 6.0 L (6.2-8.2) g/dL Albumin 3.3 L (3.8-4.9) g/dL Albumin/Globulin Ratio 1.22 L (1.60-3.17) g/dL 11/06/21 11/07/21 11/07/21 Range/Units 20:26 01:49 07:07 RBC (4.10-5.20) X 10*6/uL Hgb (12.0-15.0) g/dL Hct (37.2-46.3) % MCHC (32.0-37.0) g/dL Plt Count (140-440) X 10*3/uL Immature Gran # (0.00-0.04) X 10*3/uL Anion Gap (10.00-18.00) mmol/L BUN (9.0-27.0) mg/dL Creatinine (0.6-1.5) mg/dL Est GFR (CKD-EPI)AfAm (60.0-200.0) Est GFR (CKD-EPI)NonAf (60.0-200.0) BUN/Creatinine Ratio (12.00-20.00) Ratio Glucose (70-110) mg/dL POC Glucose (mg/dL) 129 H 120 H 72 L (75-99) mg/dL Total Bilirubin (0.30-1.20) mg/dL Total Protein (6.2-8.2) g/dL Albumin (3.8-4.9) g/dL Albumin/Globulin Ratio (1.60-3.17) g/dL Microbiology - Last 24 Hours (Table) 11/04/21 20:36 Urine Culture - Preliminary Urine,Voided Gram Neg Bacilli
[2021-11-07 17:08] LABS: Glucose,Whole Blood 153 mg/dL (75-99)
[2021-11-07] MEDS: FERROUS SULFATE 325 MG TAB PO SCH (17:22)
[2021-11-07] MEDS ORDERED: INSULIN DETEMIR (LEVEMIR) 100 UNIT/ML SYR SQ SCH (21:00)
[2021-11-07 21:08] LABS: Glucose,Whole Blood 167 mg/dL (75-99)
[2021-11-07] MEDS: MONTELUKAST 10 MG TAB PO SCH (21:14)
[2021-11-07] MEDS: ATORVASTATIN 40 MG TAB PO SCH (21:14)
[2021-11-08] MEDS: LEVOTHYROXINE 88 MCG TAB PO SCH (05:42)
[2021-11-08 05:49] LABS: Glucose,Whole Blood 108 mg/dL (75-99)
[2021-11-08] MEDS: FLUTICASONE 110 MCG INHALER INHALATION SCH (07:15)
--- NOTE | 2021-11-08 08:10 | P.DS ---
Providers Date of admission: 11/04/21 06:31 Expected date of discharge: 11/08/21 Attending physician: Cristiano East Consults: 11/04/21 06:34 Consult Physician Routine Consulting Provider: Shalini Tejeda Consult Reason/Comments: Acute on chronic renal failure Do you want consulting provider notified?: Yes 11/05/21 10:02 Consult Physician Routine Consulting Provider: Shara Roper Consult Reason/Comments: dialysis cath placement Do you want consulting provider notified?: Yes Primary care physician: Jhonathan Baca [facility] Course: History of present illness: This is a 66-year-old patient of Dr. 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 Spencer, she is a permanent resident at [facility]. She was sent to the emergency room for [facility] due to elevated labs. BUN 113, creatinine 4.53. Discussed with the patient will have a dialysis catheter placed for dialysis. Patient was complaining of abdominal pain with nausea and no vomiting prior to the lab work. At this time patient is found resting comfortably in bed able to answer questions. She states that she still has some abdominal pain with nausea no vomiting. Denies any chest pain or shortness of breath. Patient has been afebrile. Heart rate 74, respirations 16, blood pressure 130/67 pulse ox 98% on 3 L. WBC 7.0, hemoglobin 8.0, platelets 162, sodium 136, potassium 141, BUN 113, creatinine 4.53, magnesium 2.6 11/05: She is examined in bed. Continues to complain of nausea and weakness and fatigue. Patient denies any vomiting or diarrhea. Awaiting her a.m. labs to determine if we will proceed with dialysis. If there is no improvement to her kidney function dialysis will be started tomorrow. BUN 94.4, creatinine 4.2 which is slightly improved. However patient does not feel any better. She remains afebrile, heart rate 75, respirations 16, blood pressure 136/70, pulse ox 97% on 3 L. 11/06: Patient had a low blood sugar of 46 this morning otherwise blood sugars are running between 137 and 157. Levemir decreased by 50% to 20 units at bedtime. Urine culture is in progress. Patient has been afebrile, heart rate 74, blood pressure 149/77, pulse ox 99% on 3 L nasal cannula. Consult was added for vascular surgery regarding access for dialysis. Repeat blood work for today remains pending 11/07: Patient underwent first hemodialysis yesterday with 1 L of. She is scheduled for second treatment today. No abdominal pain, no nausea or vomiting. Patient has been afebrile, heart rate 62, blood pressure 173/75, pulse ox 90% on 3 L nasal cannula. Capillary blood glucose running between 72 and 204. Levemir further decreased to 15 units at bedtime. Repeat blood work ordered for tomorrow. Urine culture showing gram-negative bacilli. Plan for discharge back to [facility] tomorrow. 11/08: Patient denies any new concerns. She underwent second HD yesterday. retail branch managersolution design and analysis manager yesterday for chair time. Once this is obtained, we will discharge patient back to [facility]. Patient has been afebrile, heart rate 74, blood pressure 172/73, pulse ox 90% on 2 L nasal cannula. Patient will be discharged back to [facility] once all arrangements are completed. Discharge diagnoses 1. Acute on chronic renal failure, initial hemodialysis 11/06. 2. Abdominal pain with nausea no vomiting secondary to uremia. 3. Diabetes mellitus type 2, uncontrolled with hypoglycemia most likely due to poor oral intake. 4. Rheumatoid arthritis secondary to end-stage renal disease. 5. COPD. 6. Coronary artery disease prior cardiac stent. 7. History of thyroid cancer. 8. Chronic pain. 9. Anemia of chronic disease. 10. Hyperlipidemia. 11. GERD Discharge plan: Return to [facility] on Saturday Greater than 35 minutes was utilized and coordinating patient's discharge. Impression and plan of care have been directed as dictated by the signing physician. Elicia Elizabeth nurse practitioner acting as scribe for signing physician. Patient Condition at Discharge: Stable Plan - Discharge Summary Discharge Rx Participant: No New Discharge Prescriptions: New Isosorbide Mononitrate ER [Imdur] 30 mg PO DAILY amLODIPine [Norvasc] 5 mg PO DAILY tab Docusate [Colace] 100 mg PO BID cap DULoxetine HCL [Cymbalta] 60 mg PO DAILY Continue Insulin Aspart [NovoLOG Flexpen] See Protocol SQ ACHS Calcium Acetate [PhosLo] 667 mg PO TID@0800,1200,1700 Montelukast [Singulair] 10 mg PO HS@2100 Levothyroxine Sodium [Synthroid] 175 mcg PO DAILY@0600 Ferrous Sulfate [Iron (65 MG Elemental)] 325 mg PO DAILY@0800 Atorvastatin [Lipitor] 40 mg PO HS@2100 Cholecalciferol [Vitamin D3 (25 Mcg = 1000 Iu)] 50 mcg PO DAILY@1700 Acetaminophen Tab [Tylenol] 650 mg PO Q4H PRN PRN Reason: Pain Or Fever > 100.5 Albuterol Nebulized [Ventolin Nebulized] 2.5 mg INHALATION RT-Q6H PRN PRN Reason: COPD Aspirin EC [Ecotrin Low Dose] 81 mg PO DAILY@1700 Budesonide [Pulmicort] 0.5 mg INHALATION BID@0700,1900 Carvedilol [Coreg] 25 mg PO BID@0800,1700 Clopidogrel [Plavix] 75 mg PO DAILY@0800 Epoetin Russ [Procrit] 10,000 unit SQ DIRECTED Famotidine [Pepcid] 20 mg PO DAILY@0800 Ipratropium-Albuterol Nebulize [Duoneb 0.5 mg-3 mg/3 ml Soln] 3 ml INHALATION RT-Q6H PRN PRN Reason: Wheezing Melatonin 3 mg PO HS@2100 Sodium Bicarbonate 325 mg PO DAILY@0800 Torsemide [Demadex] 20 mg PO DAILY@0800 Gabapentin [Neurontin] 100 mg PO BID@0600,1400 #6 cap Changed Allopurinol [Zyloprim] 100 mg PO DAILY@0800 #0 Insulin Degludec [Tresiba] 15 units SQ HS@2100 #0 Discontinued Insulin Aspart [NovoLOG Flexpen] 5 units SQ TID@0700,1100,1630 DULoxetine HCL [Cymbalta] 30 mg PO DAILY@2130 NIFEdipine [NIFEdipine ER] 90 mg PO DAILY@0800 Sodium Zirconium Cyclosilicate [Lokelma] 10 gm PO DAILY@0600 Discharge Medication List Calcium Acetate [PhosLo] 667 mg PO TID@0800,1200,1700 11/21/17 [History] Ferrous Sulfate [Iron (65 MG Elemental)] 325 mg PO DAILY@0800 11/21/17 [History] Insulin Aspart [NovoLOG Flexpen] See Protocol SQ ACHS 11/21/17 [History] Levothyroxine Sodium [Synthroid] 175 mcg PO DAILY@0611/21/17 [History] Montelukast [Singulair] 10 mg PO HS@209911/21/17 [History] Atorvastatin [Lipitor] 40 mg PO HS@209909/08/20 [History] Cholecalciferol [Vitamin D3 (25 Mcg = 1000 Iu)] 50 mcg PO DAILY@169912/09/20 [History] Acetaminophen Tab [Tylenol] 650 mg PO Q4H PRN 11/04/21 [History] Albuterol Nebulized [Ventolin Nebulized] 2.5 mg INHALATION RT-Q6H PRN 11/04/21 [History] Aspirin EC [Ecotrin Low Dose] 81 mg PO DAILY@169911/04/21 [History] Budesonide [Pulmicort] 0.5 mg INHALATION BID@0700,1900 11/04/21 [History] Carvedilol [Coreg] 25 mg PO BID@0800,17011/04/21 [History] Clopidogrel [Plavix] 75 mg PO DAILY@0811/04/21 [History] Epoetin Russ [Procrit] 10,000 unit SQ DIRECTED 11/04/21 [History] Famotidine [Pepcid] 20 mg PO DAILY@0811/04/21 [History] Ipratropium-Albuterol Nebulize [Duoneb 0.5 mg-3 mg/3 ml Soln] 3 ml INHALATION RT-Q6H PRN 11/04/21 [History] Melatonin 3 mg PO HS@209911/04/21 [History] Sodium Bicarbonate 325 mg PO DAILY@0811/04/21 [History] Torsemide [Demadex] 20 mg PO DAILY@0811/04/21 [History] Allopurinol [Zyloprim] 100 mg PO DAILY@0800 #0 11/08/21 [Rx] DULoxetine HCL [Cymbalta] 60 mg PO DAILY 11/08/21 [Rx] Docusate [Colace] 100 mg PO BID cap 11/08/21 [Rx] Gabapentin [Neurontin] 100 mg PO BID@0600,1400 #6 cap 11/08/21 [Rx] Insulin Degludec [Tresiba] 15 units SQ HS@2100 #0 11/08/21 [Rx] Isosorbide Mononitrate ER [Imdur] 30 mg PO DAILY 11/08/21 [Rx] amLODIPine [Norvasc] 5 mg PO DAILY tab 11/08/21 [Rx] Follow up Appointment(s)/Referral(s): Cristiano East MD [Medical Doctor] - 1 Week (at [facility]) Discharge Disposition: TRANSFER TO SNF/ECF
[2021-11-08] MEDS: INSULIN ASPART (NovoLOG) 100 UNIT/ML VIAL SQ SCH ×2 (08:38→12:37)
[2021-11-08] MEDS: FUROSEMIDE 40 MG TAB PO SCH ×2 (08:43→17:06)
[2021-11-08] MEDS: CALCIUM ACETATE 667 MG TAB PO SCH ×2 (08:43→17:06)
[2021-11-08] MEDS: DULoxetine HCL 60 MG CAPSULE.DR PO SCH (08:43)
[2021-11-08] MEDS: carvediloL 12.5 MG TAB PO SCH ×2 (08:43→17:06)
[2021-11-08] MEDS: PANTOPRAZOLE 40 MG TABLET PO SCH (08:43)
[2021-11-08] MEDS: amLODIPine 5 MG TAB PO SCH (08:43)
[2021-11-08] MEDS: ISOSORBIDE MONONITRATE ER 30 MG TAB.ER.24H PO SCH (08:44)
[2021-11-08] MEDS: DOCUSATE 100 MG CAP PO SCH (08:44)
[2021-11-08] MEDS: SUCRALFATE 1 GM TAB PO SCH ×3 (08:44→17:06)
[2021-11-08] MEDS: SODIUM BICARBONATE TAB 650 MG TAB PO SCH ×2 (08:44→17:06)
[2021-11-08] MEDS: GABAPENTIN 100 MG CAP PO SCH (08:44)
[2021-11-08] MEDS: ASPIRIN 81 MG PO SCH (08:44)
[2021-11-08] MEDS ORDERED: CLOPIDOGREL 75 MG TAB PO SCH (09:00)
[2021-11-08 09:01] VITALS: RESP 18
[2021-11-08 11:00] LABS: African American GFR (CKD) 22.6 (60.0-200.0); Albumin 3.1 g/dL (3.8-4.9); Albumin/Globulin Ratio 1.29 (1.60-3.17); Anion Gap 7.1 mmol/L (10.00-18.00); BUN/Creat Ratio 12.92 Ratio (12.00-20.00); Blood Urea Nitrogen 32.3 mg/dL (9.0-27.0); Calcium 8.3 mg/dL (8.7-10.3); Carbon Dioxide 30.9 mmol/L (20.0-27.5); Globulin 2.4 g/dL (1.6-3.3); Non-African American GFR(CKD) 19.5 (60.0-200.0); Potassium 3.4 mmol/L (3.5-5.5); Total Bilirubin 0.2 mg/dL (0.30-1.20); Total Protein 5.5 g/dL (6.2-8.2)
[2021-11-08 11:40] LABS: Glucose,Whole Blood 86 mg/dL (75-99)
[2021-11-08 12:12] VITALS: PULSE 61; TEMP 98.2
[2021-11-08] MEDS ORDERED: ONDANSETRON 4 MG/2 ML VIAL IVP PRN (12:38)
[2021-11-08 16:02] VITALS: BP 173/49
--- NOTE | 2021-11-08 17:01 | P.PN ---
Subjective Patient is seen for follow-up for acute kidney injury and top of chronic kidney disease with progressive worsening of renal function. Started on IVF. No improvement in symptoms. Serum creatinine is somewhat improved to 4.0 however patient does not feeling much better. To be started on HD this admission. Status post first treatment of hemodialysis 11/06/21. Patient tolerated it well. She is scheduled for third treatment today. Patient states that her abdominal pain has completely resolved. For discharge today after HD. Continue MWF schedule as op Objective - Vital Signs Vital signs: Vital Signs Temp 98.2 F 11/08/21 12:11 Pulse 61 11/08/21 12:11 Resp 18 11/08/21 12:11 BP 173/49 11/08/21 16:01 Pulse Ox 97 11/08/21 12:11 Intake & Output 11/07/21 11/08/21 11/08/21 18:59 06:59 18:59 Intake Total 540 540 Output Total 2000 500 Balance 540 -1460 -500 Intake: Oral 540 240 Hemodialysis 300 Output: Hemodialysis 2000 500 Other: Voiding Method Bedside Commode Bedside Commode # Voids 2 # Bowel Movements 0 - Exam Awake, comfortable, not in any acute distress Examination of the heart S1 and S2 Examination lungs bilateral breath sounds are heard Abdomen is soft nontender Examination lower extremities shows 1+ edema bilaterally POMOLOGIST exam grossly intact - Labs CBC & Chem 7: 11/06/21 05:38 11/08/21 05:16 Labs: Abnormal Lab Results - Last 24 Hours (Table) 11/07/21 11/07/21 11/08/21 Range/Units 17:06 21:02 05:16 Potassium 3.4 L (3.5-5.5) mmol/L Carbon Dioxide 30.9 H (20.0-27.5) mmol/L Anion Gap 7.10 L (10.00-18.00) mmol/L BUN 32.3 H (9.0-27.0) mg/dL Creatinine 2.5 H (0.6-1.5) mg/dL Est GFR (CKD-EPI)AfAm 22.6 L (60.0-200.0) Est GFR (CKD-EPI)NonAf 19.5 L (60.0-200.0) POC Glucose (mg/dL) 153 H 167 H (75-99) mg/dL Calcium 8.3 L (8.7-10.3) mg/dL Total Bilirubin 0.20 L (0.30-1.20) mg/dL Total Protein 5.5 L (6.2-8.2) g/dL Albumin 3.1 L (3.8-4.9) g/dL Albumin/Globulin Ratio 1.29 L (1.60-3.17) g/dL 11/08/21 Range/Units 05:47 Potassium (3.5-5.5) mmol/L Carbon Dioxide (20.0-27.5) mmol/L Anion Gap (10.00-18.00) mmol/L BUN (9.0-27.0) mg/dL Creatinine (0.6-1.5) mg/dL Est GFR (CKD-EPI)AfAm (60.0-200.0) Est GFR (CKD-EPI)NonAf (60.0-200.0) POC Glucose (mg/dL) 108 H (75-99) mg/dL Calcium (8.7-10.3) mg/dL Total Bilirubin (0.30-1.20) mg/dL Total Protein (6.2-8.2) g/dL Albumin (3.8-4.9) g/dL Albumin/Globulin Ratio (1.60-3.17) g/dL Microbiology - Last 24 Hours (Table) 11/04/21 20:36 Urine Culture - Final Urine,Voided Escherichia coli Assessment and Plan Assessment: 1. CK D stage V with symptoms of uremia. Patient has been started on IV fluids. No significant improvement in overall symptoms however creatinine sligh tly better. Remains volume overloaded. Started HD 11/06/21. 2. Type 2 diabetes 3. Rheumatoid arthritis 4. COPD 5. Coronary artery disease with history of coronary stent 6. CK D mineral bone disorder 7. Metabolic acidosis maintained on oral sodium bicarb Plan: Third treatment today Can be discharged and follow MWF schedule as op.
[2021-11-08 17:05] LABS: Glucose,Whole Blood 104 mg/dL (75-99)
[2021-11-08] MEDS: FERROUS SULFATE 325 MG TAB PO SCH (17:06)
== END 2021-11-08 17:20 | DRG 291 ==
LOC: EC 23:34 → 5NMEDONC 11-04 06:31
PROVIDERS: ADMIT Internal Medicine Geriatric Medicine; ATTEND Internal Medicine Geriatric Medicine
DX: I13.2 Hypertensive heart and chronic kidney disease with heart failure and with stage 5 chronic kidney disease, or end stage renal disease (principal); N18.6 End stage renal disease; N17.9 Acute kidney failure, unspecified; E87.2 Acidosis; E11.649 Type 2 diabetes mellitus with hypoglycemia without coma; I50.9 Heart failure, unspecified; I25.10 Atherosclerotic heart disease of native coronary artery without angina pectoris; E11.42 Type 2 diabetes mellitus with diabetic polyneuropathy; J44.9 Chronic obstructive pulmonary disease, unspecified; M06.9 Rheumatoid arthritis, unspecified; Z99.2 Dependence on renal dialysis; Z79.4 Long term (current) use of insulin; K57.90 Diverticulosis of intestine, part unspecified, without perforation or abscess without bleeding; D63.8 Anemia in other chronic diseases classified elsewhere; I69.320 Aphasia following cerebral infarction; K21.9 Gastro-esophageal reflux disease without esophagitis; E78.5 Hyperlipidemia, unspecified; E04.9 Nontoxic goiter, unspecified; E83.9 Disorder of mineral metabolism, unspecified; G47.30 Sleep apnea, unspecified; M89.9 Disorder of bone, unspecified; M51.36 Other intervertebral disc degeneration, lumbar region; G89.29 Other chronic pain; M10.9 Gout, unspecified; E89.0 Postprocedural hypothyroidism; M19.90 Unspecified osteoarthritis, unspecified site; H54.8 Legal blindness, as defined in USA; F32.A Depression, unspecified; F41.9 Anxiety disorder, unspecified; I25.2 Old myocardial infarction; Z95.5 Presence of coronary angioplasty implant and graft; Z96.611 Presence of right artificial shoulder joint; Z96.651 Presence of right artificial knee joint; E11.22 Type 2 diabetes mellitus with diabetic chronic kidney disease; Z90.49 Acquired absence of other specified parts of digestive tract; Z79.51 Long term (current) use of inhaled steroids; Z79.890 Hormone replacement therapy; Z79.899 Other long term (current) drug therapy; Z79.82 Long term (current) use of aspirin; Z79.02 Long term (current) use of antithrombotics/antiplatelets; Z87.19 Personal history of other diseases of the digestive system; Z86.711 Personal history of pulmonary embolism; Z85.850 Personal history of malignant neoplasm of thyroid; Z87.440 Personal history of urinary (tract) infections; Z82.5 Family history of asthma and other chronic lower respiratory diseases; Z82.3 Family history of stroke; Z82.0 Family history of epilepsy and other diseases of the nervous system; Z83.3 Family history of diabetes mellitus
CPT/HCPCS: 36415; 36558; 71045; 71046; 76937; 77001; 80053; 81001; 83735; 83880; 84484; 85025; 86704; 86706; 87077; 87086; 87186; 87340; 87635; 90935; 93005; 94640; 94760; 99285

== ENCOUNTER 2022-04-12 14:26 | Inpatient (IN) | payer MEDICARE, OTHER ==
[2022-04-12] MEDS ORDERED: ONDANSETRON 4 MG/2 ML VIAL IVP STA (14:48)
[2022-04-12] MEDS ORDERED: HYDROmorphone 0.5 MG/0.5 ML SYRINGE IVP STA ×2 (14:48→16:16)
--- NOTE | 2022-04-12 15:03 | ED ---
General Adult HPI - General Chief complaint: Back Pain/Injury Stated complaint: R hip pain Time Seen by Provider: 04/12/22 14:35 Source: patient, RN notes reviewed Mode of arrival: EMS Limitations: physical limitation - History of Present Illness Initial comments: 66-year-old female presents emergency Department chief complaint of right, back pain. Patient states that she fell yesterday. Patient states she started having increasing pain during dialysis. She denies any chest pain or shortness of breath. Patient states it hurts with movement she just feels more in her abdomen, flank region. Patient did finish her dialysis today but states it is too painful so she is brought to emergency department. Patient states that the pain started before fall states that she has not a bowel movement or any weakness patches in 5 days. Patient states symptoms are getting worse and worsen during dialysis and after her fall. Denies head injury - Related Data Home Medications Medication Instructions Recorded Confirmed Insulin Aspart [NovoLOG Flexpen] See Protocol SQ TID 11/21/17 02/09/22 Levothyroxine Sodium [Synthroid] 175 mcg PO DAILY@0600 11/21/17 02/09/22 Montelukast [Singulair] 10 mg PO HS@2100 11/21/17 02/09/22 Atorvastatin [Lipitor] 40 mg PO HS@2100 09/08/20 02/09/22 Cholecalciferol [Vitamin D3 (25 50 mcg PO DAILY@169912/09/20 02/09/22 Mcg = 1000 Iu)] Acetaminophen Tab [Tylenol] 650 mg PO Q4H PRN 11/04/21 02/09/22 Aspirin EC [Ecotrin Low Dose] 81 mg PO DAILY@169911/04/21 02/09/22 Budesonide [Pulmicort] 0.5 mg INHALATION BID@0700,1700 11/04/21 02/09/22 Clopidogrel [Plavix] 75 mg PO DAILY@0800 11/04/21 02/08/22 Famotidine [Pepcid] 20 mg PO DAILY@0800 11/04/21 02/09/22 Melatonin 3 mg PO HS@2100 11/04/21 02/09/22 Torsemide [Demadex] 20 mg PO DAILY@0800 11/04/21 02/09/22 carvediloL [Coreg] 25 mg PO BID@0800,1700 11/04/21 02/09/22 DULoxetine HCL [Cymbalta] 60 mg PO QAM 02/08/22 02/09/22 Fluticasone Propionate 110 Mcg 2 puff INHALATION RT-BID PRN 02/08/22 02/09/22 [Flovent 110 Mcg Inhaler] Gabapentin [Neurontin] 300 mg PO BID 02/08/22 02/09/22 Insulin Degludec [Tresiba] 25 units SQ HS@2100 02/08/22 02/09/22 Isosorbide Mononitrate ER [Imdur] 30 mg PO QAM 02/08/22 02/09/22 Liquacel Protein Roselyn 30 ml PO BID 02/08/22 02/09/22 Ondansetron [Zofran] 4 mg PO Q8HR PRN 02/08/22 02/09/22 Renal Multivit 1 tab PO DAILY 02/08/22 02/09/22 Sevelamer [Renvela] 800 mg PO AC-TID 02/08/22 02/09/22 amLODIPine [Norvasc] 5 mg PO QAM 02/08/22 02/09/22 lisinopriL [Zestril] 5 mg PO QAM 02/08/22 02/09/22 Previous Rx's Medication Instructions Recorded Docusate [Colace] 100 mg PO BID cap 11/08/21 allopurinoL [Zyloprim] 100 mg PO DAILY@0800 #0 11/08/21 Allergies Allergy/AdvReac Type Severity Reaction Status Date / Time No Known Allergies Allergy Verified 04/12/22 14:37 Review of Systems ROS Statement: Those systems with pertinent positive or pertinent negative responses have been documented in the HPI. ROS Other: All systems not noted in ROS Statement are negative. Past Medical History Past Medical History: Asthma, Coronary Artery Disease (CAD), Cancer, Heart Fail ure, COPD, Diabetes Mellitus, GI Bleed, Hyperlipidemia, Hypertension, Myocardial Infarction (PA), Osteoarthritis (OA), Pulmonary Embolus (PE), Renal Disease, Rheumatoid Arthritis (RA), Sleep Apnea/CPAP/BIPAP, Syncope, Thyroid Disorder Additional Past Medical History / Comment(s): IDDM type II poorly controlled,uses cpap bilateral peripheral neuropathy bilateral hands/feet, CKD , UTIs, legally blind bilaterally-sees minimally, thyroid cancer with surgery, goiter, hashimotos, diverticular disease, 2013 upper and lower GI bleeds with blood loss anemia, gout, R humeral fracture with surgery, occasionally bladder incont.past falls, "lt ankle broke 3 places-SX DONE. pt stated "not walking but able to stand and pivot with med boot on," Last Myocardial Infarction Date:: 2009 History of Any Multi-Drug Resistant Organisms: VRE Date of last positivie culture/infection: 01/17/22 MDRO Source:: Urine Past Surgical History: Adenoidectomy, Back Surgery, Cholecystectomy, Heart Catheterization With Stent, Tonsillectomy Additional Past Surgical History / Comment(s): PCI with stent 2009 & 2018, low back surgery, total R shoulder and total R knee arthroplasties, bilateral hand trigger finger surgeries, EGD, colonoscopy, L eye laser eye surgery for bleed, thyroidectomy.lt tib fib fx-plate and screws. Past Anesthesia/Blood Transfusion Reactions: No Reported Reaction Additional Past Anesthesia/Blood Transfusion Reaction / Comment(s): Pt has received blood in past without reaction. Date of Last Stent Placement:: 2017 Past Psychological History: Anxiety, Depression Smoking Status: Never smoker Past Alcohol Use History: None Reported Past Drug Use History: None Reported - Past Family History Mother Family Medical History: Asthma, CVA/TIA, Seizure Disorder Additional Family Medical History / Comment(s): epilepsy Father Family Medical History: COPD, Diabetes Mellitus Additional Family Medical History / Comment(s): many heart problems General Exam Limitations: no limitations, physical limitation General appearance: alert, in no apparent distress Head exam: Present: atraumatic, normocephalic, normal inspection ENT exam: Present: normal exam, mucous membranes moist Neck exam: Present: normal inspection, full ROM. Absent: tenderness, meningismus, lymphadenopathy Respiratory exam: Present: normal lung sounds bilaterally. Absent: respiratory distress, wheezes, rales, rhonchi, stridor Cardiovascular Exam: Present: regular rate, normal rhythm, normal heart sounds. Absent: systolic murmur, diastolic murmur, rubs, gallop, clicks GI/Abdominal exam: Present: soft, tenderness, normal bowel sounds. Absent: distended, guarding, rebound, rigid Back exam: Present: full ROM, tenderness, CVA tenderness (R), paraspinal tenderness. Absent: CVA tenderness (L), vertebral tenderness Neurological exam: Present: alert Course Vital Signs 04/12/22 14:33 Temperature 99.6 F Pulse Rate 69 Respiratory 18 Rate Blood Pressure 110/63 O2 Sat by Pulse 97 Oximetry Medical Decision Making - Medical Decision Making 66-year-old presented for abdominal pain worsening today at dialysis patient recent fall with no acute traumatic injury. Patient CT shows possible early small bowel obstruction she does admit that she has not had a bowel movement or passed gas and 5 days. Patient does have some moderate constipation I did discuss case with Dr. Baca pain control who initiated, monitoring with surgery consult. - Lab Data Result diagrams: 04/12/22 15:00 04/12/22 15:00 Lab Results 04/12/22 04/12/22 Range/Units 15:00 15:00 WBC 13.1 H (3.8-10.6) k/uL RBC 3.45 L (3.80-5.40) m/uL Hgb 11.3 L (11.4-16.0) gm/dL Hct 33.0 L (34.0-46.0) % MCV 95.6 (80.0-100.0) fL MCH 32.6 (25.0-35.0) pg MCHC 34.1 (31.0-37.0) g/dL RDW 15.8 H (11.5-15.5) % Plt Count 139 L (150-450) k/uL MPV 8.3 Neutrophils % 80 % Lymphocytes % 13 % Monocytes % 4 % Eosinophils % 2 % Basophils % 1 % Neutrophils # 10.4 H (1.3-7.7) k/uL Lymphocytes # 1.8 (1.0-4.8) k/uL Monocytes # 0.5 (0-1.0) k/uL Eosinophils # 0.3 (0-0.7) k/uL Basophils # 0.1 (0-0.2) k/uL Sodium 133 L (137-145) mmol/L Potassium 3.8 (3.5-5.1) mmol/L Chloride 96 L (98-107) mmol/L Carbon Dioxide 29 (22-30) mmol/L Anion Gap 8 mmol/L BUN 28 H (7-17) mg/dL Creatinine 2.31 H (0.52-1.04) mg/dL Est GFR (CKD-EPI)AfAm 25 (>60 ml/min/1.73 sqM) Est GFR (CKD-EPI)NonAf 22 (>60 ml/min/1.73 sqM) Glucose 139 H (74-99) mg/dL Calcium 7.6 L (8.4-10.2) mg/dL Total Bilirubin 0.6 (0.2-1.3) mg/dL AST 31 (14-36) U/L ALT 25 (4-34) U/L Alkaline Phosphatase 72 (38-126) U/L Total Protein 5.6 L (6.3-8.2) g/dL Albumin 3.0 L (3.5-5.0) g/dL Disposition Clinical Impression: Abdominal pain, ESRD (end stage renal disease) on dialysis, SBO (small bowel obstruction) Disposition: ADMITTED IP TO THIS HOSP Condition: Fair Referrals: Jhonathan Baca MD [Primary Care Provider] - 1-2 days Time of Disposition: 16:43
[2022-04-12 15:14] LABS: Basophils # (A) 0.1 k/uL (0-0.2); Basophils % (A) 1 %; Eosinophils # (A) 0.3 k/uL (0-0.7); Eosinophils % (A) 2 %; HGB 11.3 gm/dL (11.4-16.0); Lymphocytes # (A) 1.8 k/uL (1.0-4.8); Lymphocytes % (A) 13 %; MCH 32.6 pg (25.0-35.0); MCHC 34.1 g/dL (31.0-37.0); MCV 95.6 fL (80.0-100.0); Mean Platelet Volume 8.3; Monocytes # (A) 0.5 k/uL (0-1.0); Monocytes % (A) 4 %; Neutrophils # (A) 10.4 k/uL (1.3-7.7); Neutrophils % (A) 80 %; Platelet Count 139 k/uL (150-450); RBC 3.45 m/uL (3.80-5.40); RDW 15.8 % (11.5-15.5); WBC 13.1 k/uL (3.8-10.6)
[2022-04-12 15:25] LABS: Calcium 7.6 mg/dL (8.4-10.2); Potassium 3.8 mmol/L (3.5-5.1); Total Bilirubin 0.6 mg/dL (0.2-1.3); Total Protein 5.6 g/dL (6.3-8.2)
--- NOTE | 2022-04-12 15:54 | CT ---
EXAMINATION TYPE: CT abdomen pelvis wo con DATE OF EXAM: 04/12/2022 HISTORY: Right flank pain CT DLP: 1422.6 mGycm. Automated Exposure Control for Dose Reduction was Utilized. TECHNIQUE: CT scan of the abdomen and pelvis is performed without oral or IV contrast. COMPARISON: CT abdomen and pelvis August 19, 2018 FINDINGS: Within the limitations of a non-contrast study, the following observations are made. LUNG BASES: Persistent cardiomegaly with calcification or surgical change at the mitral valve. There is right coronary arteries stent and/or calcification noted. There is mild left basilar linear scarri ng and/or atelectasis. LIVER/GB: Cholecystectomy clips are redemonstrated. PANCREAS: No significant abnormality is seen. SPLEEN: No significant abnormality is seen. ADRENALS: No significant abnormality is seen. KIDNEYS: Cortical thinning and diminished size of both kidneys with central calcification consistent with product of chronic medical renal disease. No definitive renal calculi or hydronephrosis seen paulette aterally. BOWEL: Suboptimal evaluation of bowel without enteric contrast. Some prominence of small bowel loops in the left upper to midabdomen measuring up to 3.0 cm in size. No suspicious distention of the stoma ch. No abnormal dilatation of distal small bowel loops in the right abdomen No suspicious large bowel dilatation. Bowel loops in the left upper to midabdomen appear to have some central fecal debris and possible mild/moderate wall thickening. GENITAL ORGANS: Anteverted uterus. LYMPH NODES: No greater than 1cm abdominal or pelvic lymph nodes are appreciated. OSSEOUS STRUCTURES: Straightening of lumbar spine with postsurgical change and fairly redemonstrated. OTHER: Moderate to severe calcified plaque of the aorta extends into branch vessels. Posterior glutea l subcutaneous edema and dystrophic calcifications are redemonstrated IMPRESSION: No renal stones or hydronephrosis is seen bilaterally. Prominent almost minimally dilated proximal small bowel loops in the left upper to mid abdomen could reflect product of a partial proxi mal small small bowel obstruction. Underlying enteritis cannot be excluded. Correlate clinically.
[2022-04-12] MEDS ORDERED: ONDANSETRON 4 MG/2 ML VIAL IVP PRN (16:43)
[2022-04-12] MEDS ORDERED: NALOXONE 0.4 MG/ML 1 ML VIAL IV PRN (16:43)
[2022-04-12] MEDS ORDERED: HYDROmorphone 0.5 MG/0.5 ML SYRINGE IVP PRN (16:43)
[2022-04-12] MEDS ORDERED: NA PHOS,M-B/NA PHOS,DI-BA 133 ML ENEMA RECTAL ONE (16:44)
[2022-04-12] MEDS ORDERED: guaiFENesin SYRUP 100MG/5ML 200 MG/10 ML CUP PO PRN (21:31)
[2022-04-12] MEDS ORDERED: HYDROcodone/APAP 5-325MG 1 EACH TAB PO PRN (21:31)
[2022-04-12] MEDS ORDERED: HYDROCORTISONE 1% CREAM 30 GM TUBE TOPICAL PRN (21:31)
[2022-04-12] MEDS ORDERED: BACLOFEN 10 MG TAB PO PRN (21:31)
[2022-04-12] MEDS ORDERED: FLUTICASONE 110 MCG INHALER INHALATION PRN (21:31)
[2022-04-12] MEDS ORDERED: SODIUM CHLORIDE 0.9% 1,000 ML IV SCH (21:45)
[2022-04-13] MEDS: LEVOTHYROXINE 88 MCG TAB PO SCH (04:29)
[2022-04-13] MEDS: BUDESONIDE 0.5 MG/2 ML NEBU INHALATION SCH ×2 (07:11→19:11)
[2022-04-13] MEDS: IPRATROPIUM-ALBUTEROL 3 ML NEB INHALATION PRN ×2 (07:11→19:11)
[2022-04-13] MEDS ORDERED: LIQUACEL PROTEIN PO SCH (08:00)
--- NOTE | 2022-04-13 08:08 | P.HPIM ---
History of Present Illness H&P Date: 04/13/22 Chief Complaint: Abdominal pain. This is a history of physical 66-year-old diabetic white female who has an underlying history of diabetes end-stage renal disease on dialysis for the last several months. She states that since dialysis and started she's been struggling with intermittent abdominal pain. Yesterday she had dialysis and the pain became significant. Computed tomography scan shows possible partial small bowel obstruction versus colitis. She has history of cholecystectomy in the remote past. No previous admissions for any type of ileus that I can remember. Some mild nausea but now this morning she states it is improved. No flatus stated. She is essentially admitted for colitis versus SBO partial. The patient has an underlying history of asthma coronary artery disease COPD diabetes hypertension hyperlipidemia history of rheumatoid arthritis and m yocardial infraction Review of Systems Eyes: denies blurred vision, denies pain Ears, nose, mouth and throat: Denies headache, Denies sore throat Cardiovascular: Denies chest pain, Denies shortness of breath Respiratory: Denies cough Gastrointestinal: Reports as per HPI, Reports abdominal pain Genitourinary: Denies dysuria, Denies hematuria Past Medical History Past Medical History: Asthma, Coronary Artery Disease (CAD), Cancer, Heart Failure, COPD, Diabetes Mellitus, GI Bleed, Hyperlipidemia, Hypertension, Myocardial Infarction ([place]), Osteoarthritis (OA), Pulmonary Embolus (PE), Renal Disease, Rheumatoid Arthritis (RA), Sleep Apnea/CPAP/BIPAP, Syncope, Thyroid Disorder Additional Past Medical History / Comment(s): IDDM type II poorly controlled,uses cpap bilateral peripheral neuropathy bilateral hands/feet, CKD , UTIs, legally blind bilaterally-sees minimally, thyroid cancer with surgery, goiter, hashimotos, diverticular disease, 2014 upper and lower GI bleeds with blood loss anemia, gout, R humeral fracture with surgery, occasionally bladder incont.past falls, "lt ankle broke 3 places-SX DONE. pt stated "not walking but able to stand and pivot with med boot on," Last Myocardial Infarction Date:: 2009 History of Any Multi-Drug Resistant Organisms: VRE Date of last positivie culture/infection: 01/17/22 MDRO Source:: Urine Past Surgical History: Adenoidectomy, Back Surgery, Cholecystectomy, Heart Catheterization With Stent, Tonsillectomy Additional Past Surgical History / Comment(s): PCI with stent 2009 & 2019, low back surgery, total R shoulder and total R knee arthroplasties, bilateral hand trigger finger surgeries, EGD, colonoscopy, L eye laser eye surgery for bleed, thyroidectomy.lt tib fib fx-plate and screws. lt arm Dialysis fistula Past Anesthesia/Blood Transfusion Reactions: No Reported Reaction Additional Past Anesthesia/Blood Transfusion Reaction / Comment(s): Pt has received blood in past without reaction. Date of Last Stent Placement:: 2017 Past Psychological History: Anxiety, Depression Additional Psychological History / Comment(s): Pt resides with her clare, son-in-law and grandchildren x4. She uses a walker to ambulate. She does not drive, her clare takes her to appLuristic. Smoking Status: Never smoker Past Alcohol Use History: None Reported Past Drug Use History: None Reported - Past Family History Mother Family Medical History: Asthma, CVA/TIA, Seizure Disorder Additional Family Medical History / Comment(s): epilepsy Father Family Medical History: COPD, Diabetes Mellitus Additional Family Medical History / Comment(s): many heart problems Medications and Allergies Home Medications Medication Instructions Recorded Confirmed Type Insulin Aspart [NovoLOG Flexpen] See Protocol SQ ACHS 11/21/17 04/12/22 History Levothyroxine Sodium [Synthroid] 175 mcg PO DAILY@0600 11/21/17 04/12/22 History Montelukast [Singulair] 10 mg PO HS@209911/21/17 04/12/22 History Atorvastatin [Lipitor] 40 mg PO HS@2100 09/08/20 04/12/22 History Cholecalciferol [Vitamin D3 (25 50 mcg PO DAILY@169912/09/20 04/12/22 History Mcg = 1000 Iu)] Acetaminophen Tab [Tylenol] 650 mg PO Q4H PRN 11/04/21 04/12/22 History Aspirin EC [Ecotrin Low Dose] 81 mg PO DAILY@169911/04/21 04/12/22 History Budesonide [Pulmicort] 0.5 mg INHALATION RT-BID@0700,1700 11/04/21 04/12/22 History Clopidogrel [Plavix] 75 mg PO DAILY@0800 11/04/21 04/12/22 History Famotidine [Pepcid] 20 mg PO DAILY@0811/04/21 04/12/22 History Melatonin 3 mg PO HS@209911/04/21 04/12/22 History Torsemide [Demadex] 20 mg PO DAILY@0811/04/21 04/12/22 History carvediloL [Coreg] 25 mg PO BID@0800,1700 11/04/21 04/12/22 History allopurinoL [Zyloprim] 100 mg PO DAILY@0800 #0 11/08/21 04/12/22 Rx DULoxetine HCL [Cymbalta] 60 mg PO DAILY@0802/08/22 04/12/22 History Fluticasone Propionate 110 Mcg 2 puff INHALATION RT-BID PRN 02/08/22 04/12/22 History [Flovent 110 Mcg Inhaler] Insulin Degludec [Tresiba] 25 units SQ HS@209902/08/22 04/12/22 History Isosorbide Mononitrate ER [Imdur] 30 mg PO SUMOWEFR@0802/08/22 04/12/22 History Liquacel Protein Roselyn 30 ml PO BID@0800,17002/08/22 04/12/22 History Ondansetron [Zofran] 4 mg PO BID PRN 02/08/22 04/12/22 History Renal Multivit 1 tab PO DAILY@169902/08/22 04/12/22 History amLODIPine [Norvasc] 5 mg PO SUMOWEFR@0802/08/22 04/12/22 History lisinopriL [Zestril] 5 mg PO SUMOWEFR@79902/08/22 04/12/22 History Albuterol Nebulized [Ventolin 2.5 mg INHALATION RT-Q6H PRN 04/12/22 04/12/22 History Nebulized] Amoxic-Pot Clav 500-125 mg 1 tab PO BID@0700,17004/12/22 04/12/22 History [Augmentin 500-125 mg] Ascorbic Acid [Vitamin C] 1,000 mg PO DAILY@0800 04/12/22 04/12/22 History Baclofen 5 mg PO HS PRN 04/12/22 04/12/22 History Calcium Acetate [Phoslo] 667 mg PO AC-TID@,,04/12/22 04/12/22 History Docusate [Colace] 100 mg PO BID@0800,1700 04/12/22 04/12/22 History Gabapentin [Neurontin] 300 mg PO BID@0800,1700 04/12/22 04/12/22 History HYDROcodone/APAP 5-325MG [[place] 1 tab PO HS PRN 04/12/22 04/12/22 History 5-325] Hydrocortisone Cream 1 applic TOPICAL Q12H PRN 04/12/22 04/12/22 History [Hydrocortisone 1% Cream] Interdry 1 applic TOPICAL BID@0800,2100 04/12/22 04/12/22 History Ipratropium-Albuterol Nebulize 3 ml INHALATION RT-Q6H PRN 04/12/22 04/12/22 History [Duoneb 0.5 mg-3 mg/3 ml Soln] Isosorbide Mononitrate ER [Imdur] 30 mg PO TUTHSA@1700 04/12/22 04/12/22 History Lactulose 20 gm PO DAILY PRN 04/12/22 04/12/22 History Vitamin E Lotion 1 applic TOPICAL BID@0800,1700 04/12/22 04/12/22 History Zinc Sulfate [Orazinc] 220 mg PO DAILY@0800 04/12/22 04/12/22 History amLODIPine [Norvasc] 5 mg PO TUTHSA@1700 04/12/22 04/12/22 History guaiFENesin SYRUP 100MG/5ML 200 mg PO Q4H PRN 04/12/22 04/12/22 History [Robitussin] lisinopriL [Zestril] 5 mg PO TUTHSA@1700 04/12/22 04/12/22 History Allergies Allergy/AdvReac Type Severity Reaction Status Date / Time No Known Allergies Allergy Verified 04/12/22 19:05 Physical Exam Vitals: Vital Signs Temp Pulse Pulse Resp BP BP Pulse Ox 04/13/22 07:28 68 04/13/22 07:12 64 04/13/22 04:30 98.3 F 69 16 115/48 97 04/12/22 22:44 70 133/71 04/12/22 21:05 98.0 F 64 16 84/37 99 04/12/22 20:36 97.6 F 62 18 109/42 98 04/12/22 20:00 70 16 04/12/22 19:47 104/57 04/12/22 19:44 64 14 89/39 97 04/12/22 16:08 61 18 108/46 95 04/12/22 14:33 99.6 F 69 18 110/63 97 Intake and Output 04/12/22 04/13/22 04/13/22 22:59 06:59 14:59 Intake Total 600 Balance 600 Intake: IV 600 Sodium Chloride 0.9% 1, 600 000 ml @ 75 mls/hr IV . [id number] [facility] Rx#:[id number] Other: Weight 113.852 kg - Constitutional General appearance: obese - EENT Eyes: EOMI - Neck Neck: no lymphadenopathy - Respiratory Respiratory: bilateral: diminished - Cardiovascular Rhythm: regular Heart sounds: normal: S1 Abnormal Heart Sounds: no S3 Gallop - Gastrointestinal General gastrointestinal: decreased bowel sounds, distended - Integumentary Integumentary: no cellulitis - Neurologic Neurologic: CNII-XII intact - Psychiatric Psychiatric: A&O x's 3 Results CBC & Chem 7: 04/12/22 15:00 04/12/22 15:00 Labs: Abnormal Lab Results - Last 24 Hours (Table) 04/12/22 04/12/22 Range/Units 15:00 15:00 WBC 13.1 H (3.8-10.6) k/uL RBC 3.45 L (3.80-5.40) m/uL Hgb 11.3 L (11.4-16.0) gm/dL Hct 33.0 L (34.0-46.0) % RDW 15.8 H (11.5-15.5) % Plt Count 139 L (150-450) k/uL Neutrophils # 10.4 H (1.3-7.7) k/uL Sodium 133 L (137-145) mmol/L Chloride 96 L (98-107) mmol/L BUN 28 H (7-17) mg/dL Creatinine 2.31 H (0.52-1.04) mg/dL Glucose 139 H (74-99) mg/dL Calcium 7.6 L (8.4-10.2) mg/dL Total Protein 5.6 L (6.3-8.2) g/dL Albumin 3.0 L (3.5-5.0) g/dL Assessment and Plan (1) Hypotension Current Visit: Yes Status: Acute Code(s): I95.9 - HYPOTENSION, UNSPECIFIED SNOMED Code(s): 74015972 (2) Abdominal pain Current Visit: Yes Status: Acute Code(s): R10.9 - UNSPECIFIED ABDOMINAL PAIN SNOMED Code(s): 17135121 (3) ESRD (end stage renal disease) on dialysis Current Visit: Yes Status: Acute Code(s): N18.6 - END STAGE RENAL DISEASE; Z99.2 - DEPENDENCE ON RENAL DIALYSIS SNOMED Code(s): 239261099 (4) SBO (small bowel obstruction) Current Visit: Yes Status: Acute Code(s): K56.609 - UNSP INTESTNL OBST, UNSP TO PARTIAL VERSUS COMPLETE OBST SNOMED Code(s): 540240515 (5) At risk for readmission to hospital Current Visit: No Status: Acute Code(s): Z91.89 - OTH PERSONAL RISK FACTORS, NOT ELSEWHERE CLASSIFIED SNOMED Code(s): 8912381474048 (6) Chronic renal failure Current Visit: No Status: Acute Code(s): N18.9 - CHRONIC KIDNEY DISEASE, UNSPECIFIED SNOMED Code(s): 74498697 (7) Coronary artery disease Current Visit: No Status: Acute Code(s): I25.10 - ATHSCL HEART DISEASE OF [place] CORONARY ARTERY W/O ANG PCTRS SNOMED Code(s): 78995518 (8) Dehydration Current Visit: No Status: Acute Code(s): E86.0 - DEHYDRATION SNOMED Code(s): 04280522 (9) Diabetic neuropathy Current Visit: No Status: Acute Code(s): E11.40 - TYPE 2 DIABETES MELLITUS WITH DIABETIC NEUROPATHY, UNSP SNOMED Code(s): 564774626 Plan: We'll go ahead and consult nephrology for dialysis. Continue suzan rehydration. Await surgical evaluation. Check CBC and CMP in a.m. Reconcile home medications prognosis is guarded secondary to his her multiple comorbidities. She is a full code otherwise
[2022-04-13] MEDS: ASCORBIC ACID 500 MG TAB PO SCH (08:55)
[2022-04-13] MEDS: GABAPENTIN 300 MG CAP PO SCH ×2 (08:56→17:29)
[2022-04-13] MEDS: ISOSORBIDE MONONITRATE ER 30 MG TAB.ER.24H PO SCH (08:56)
[2022-04-13] MEDS: DOCUSATE 100 MG CAP PO SCH ×2 (08:56→17:29)
[2022-04-13] MEDS: ZINC SULFATE 220 MG CAP PO SCH (08:56)
[2022-04-13] MEDS: AMMONIUM LACTATE 12% LOTION 225 GM BTL TOPICAL SCH ×2 (08:56→17:32)
[2022-04-13] MEDS: allopurinoL 100 MG TAB PO SCH (08:56)
[2022-04-13] MEDS: carvediloL 12.5 MG TAB PO SCH ×2 (08:56→17:30)
[2022-04-13] MEDS: CLOPIDOGREL 75 MG TAB PO SCH (08:56)
[2022-04-13] MEDS: DULoxetine HCL 60 MG CAPSULE.DR PO SCH (08:56)
[2022-04-13] MEDS: CALCIUM ACETATE 667 MG TAB PO SCH ×3 (08:57→17:30)
[2022-04-13] MEDS: FAMOTIDINE 20 MG TAB PO SCH (09:05)
[2022-04-13] MEDS: amLODIPine 5 MG TAB PO SCH (09:06)
[2022-04-13] MEDS: lisinopriL 5 MG TAB PO SCH (09:06)
[2022-04-13] MEDS: INTERDRY TOPICAL SCH ×2 (09:07→20:33)
[2022-04-13] MEDS: SODIUM CHLORIDE 0.9% 1,000 ML IV SCH (11:51)
--- NOTE | 2022-04-13 12:12 | P.NPCON ---
History of Present Illness - Reason for Consult end stage renal disease - History of Present Illness Patient is a 66-year-old female with end-stage renal disease on hemodialysis on a Saturday schedule. She is admitted to the hospital with complaints of severe right flank pain while on hemodialysis treatment yesterday. No history of fever or chills. CT of the abdomen does not show any kidney stones. No urinary symptoms. Pain seems to have resolved. Fecal debris noted on computed tomography scan Review of Systems As per HPI, other systems negative Past Medical History Past Medical History: Asthma, Coronary Artery Disease (CAD), Cancer, Heart Failure, COPD, Diabetes Mellitus, GI Bleed, Hyperlipidemia, Hypertension, Myocardial Infarction ([place]), Osteoarthritis (OA), Pulmonary Embolus (PE), Renal Disease, Rheumatoid Arthritis (RA), Sleep Apnea/CPAP/BIPAP, Syncope, Thyroid Disorder Additional Past Medical History / Comment(s): IDDM type II poorly controlled,uses cpap bilateral peripheral neuropathy bilateral hands/feet, CKD , UTIs, legally blind bilaterally-sees minimally, thyroid cancer with surgery, goiter, hashimotos, diverticular disease, 2014 upper and lower GI bleeds with blood loss anemia, gout, R humeral fracture with surgery, occasionally bladder incont.past falls, "lt ankle broke 3 places-SX DONE. pt stated "not walking but able to stand and pivot with med boot on," Last Myocardial Infarction Date:: 2009 History of Any Multi-Drug Resistant Organisms: VRE Date of last positivie culture/infection: 01/17/22 MDRO Source:: Urine Past Surgical History: Adenoidectomy, Back Surgery, Cholecystectomy, Heart Catheterization With Stent, Tonsillectomy Additional Past Surgical History / Comment(s): PCI with stent 2009 & 2018, low back surgery, total R shoulder and total R knee arthroplasties, bilateral hand trigger finger surgeries, EGD, colonoscopy, L eye laser eye surgery for bleed, thyroidectomy.lt tib fib fx-plate and screws. lt arm Dialysis fistula Past Anesthesia/Blood Transfusion Reactions: No Reported Reaction Additional Past Anesthesia/Blood Transfusion Reaction / Comment(s): Pt has received blood in past without reaction. Date of Last Stent Placement:: 2017 Past Psychological History: Anxiety, Depression Additional Psychological History / Comment(s): Pt resides with her clare, son-in- law and grandchildren x4. She uses a walker to ambulate. She does not drive, her clare takes her to appts. Smoking Status: Never smoker Past Alcohol Use History: None Reported Past Drug Use History: None Reported - Past Family History Mother Family Medical History: Asthma, CVA/TIA, Seizure Disorder Additional Family Medical History / Comment(s): epilepsy Father Family Medical History: COPD, Diabetes Mellitus Additional Family Medical History / Comment(s): many heart problems Medications and Allergies Home Medications Medication Instructions Recorded Confirmed Type Insulin Aspart [NovoLOG Flexpen] See Protocol SQ ACHS 11/21/17 04/12/22 History Levothyroxine Sodium [Synthroid] 175 mcg PO DAILY@0600 11/21/17 04/12/22 History Montelukast [Singulair] 10 mg PO HS@209911/21/17 04/12/22 History Atorvastatin [Lipitor] 40 mg PO HS@209909/08/20 04/12/22 History Cholecalciferol [Vitamin D3 (25 50 mcg PO DAILY@169912/09/20 04/12/22 History Mcg = 1000 Iu)] Acetaminophen Tab [Tylenol] 650 mg PO Q4H PRN 11/04/21 04/12/22 History Aspirin EC [Ecotrin Low Dose] 81 mg PO DAILY@169911/04/21 04/12/22 History Budesonide [Pulmicort] 0.5 mg INHALATION RT-BID@0700,1700 11/04/21 04/12/22 History Clopidogrel [Plavix] 75 mg PO DAILY@0800 11/04/21 04/12/22 History Famotidine [Pepcid] 20 mg PO DAILY@0800 11/04/21 04/12/22 History Melatonin 3 mg PO HS@209911/04/21 04/12/22 History Torsemide [Demadex] 20 mg PO DAILY@0800 11/04/21 04/12/22 History carvediloL [Coreg] 25 mg PO BID@0800,1700 11/04/21 04/12/22 History allopurinoL [Zyloprim] 100 mg PO DAILY@0800 #0 11/08/21 04/12/22 Rx DULoxetine HCL [Cymbalta] 60 mg PO DAILY@0800 02/08/22 04/12/22 History Fluticasone Propionate 110 Mcg 2 puff INHALATION RT-BID PRN 02/08/22 04/12/22 History [Flovent 110 Mcg Inhaler] Insulin Degludec [Tresiba] 25 units SQ HS@209902/08/22 04/12/22 History Isosorbide Mononitrate ER [Imdur] 30 mg PO SUMOWEFR@0800 02/08/22 04/12/22 History Liquacel Protein Roselyn 30 ml PO BID@0800,1700 02/08/22 04/12/22 History Ondansetron [Zofran] 4 mg PO BID PRN 02/08/22 04/12/22 History Renal Multivit 1 tab PO DAILY@17002/08/22 04/12/22 History amLODIPine [Norvasc] 5 mg PO SUMOWEFR@0802/08/22 04/12/22 History lisinopriL [Zestril] 5 mg PO SUMOWEFR@0802/08/22 04/12/22 History Albuterol Nebulized [Ventolin 2.5 mg INHALATION RT-Q6H PRN 04/12/22 04/12/22 History Nebulized] Amoxic-Pot Clav 500-125 mg 1 tab PO BID@0700,1700 04/12/22 04/12/22 History [Augmentin 500-125 mg] Ascorbic Acid [Vitamin C] 1,000 mg PO DAILY@0800 04/12/22 04/12/22 History Baclofen 5 mg PO HS PRN 04/12/22 04/12/22 History Calcium Acetate [Phoslo] 667 mg PO AC-TID@07,11,17 04/12/22 04/12/22 History Docusate [Colace] 100 mg PO BID@0800,1700 04/12/22 04/12/22 History Gabapentin [Neurontin] 300 mg PO BID@0800,1700 04/12/22 04/12/22 History HYDROcodone/APAP 5-325MG [[place] 1 tab PO HS PRN 04/12/22 04/12/22 History 5-325] Hydrocortisone Cream 1 applic TOPICAL Q12H PRN 04/12/22 04/12/22 History [Hydrocortisone 1% Cream] Interdry 1 applic TOPICAL BID@0800,209904/12/22 04/12/22 History Ipratropium-Albuterol Nebulize 3 ml INHALATION RT-Q6H PRN 04/12/22 04/12/22 History [Duoneb 0.5 mg-3 mg/3 ml Soln] Isosorbide Mononitrate ER [Imdur] 30 mg PO TUTHSA@1700 04/12/22 04/12/22 History Lactulose 20 gm PO DAILY PRN 04/12/22 04/12/22 History Vitamin E Lotion 1 applic TOPICAL BID@0800,1700 04/12/22 04/12/22 History Zinc Sulfate [Orazinc] 220 mg PO DAILY@0800 04/12/22 04/12/22 History amLODIPine [Norvasc] 5 mg PO TUTHSA@1700 04/12/22 04/12/22 History guaiFENesin SYRUP 100MG/5ML 200 mg PO Q4H PRN 04/12/22 04/12/22 History [Robitussin] lisinopriL [Zestril] 5 mg PO TUTHSA@1700 04/12/22 04/12/22 History Allergies Allergy/AdvReac Type Severity Reaction Status Date / Time No Known Allergies Allergy Verified 04/12/22 19:05 Physical Exam Vitals: Vital Signs Temp Pulse Pulse Resp BP BP Pulse Ox 04/13/22 07:28 68 04/13/22 07:12 64 04/13/22 04:30 98.3 F 69 16 115/48 97 04/12/22 22:44 70 133/71 04/12/22 21:05 98.0 F 64 16 84/37 99 04/12/22 20:36 97.6 F 62 18 109/42 98 04/12/22 20:00 70 16 04/12/22 19:47 104/57 04/12/22 19:44 64 14 89/39 97 04/12/22 16:08 61 18 108/46 95 04/12/22 14:33 99.6 F 69 18 110/63 97 Intake and Output 04/12/22 04/13/22 04/13/22 22:59 06:59 14:59 Intake Total 600 Balance 600 Intake: IV 600 Sodium Chloride 0.9% 1, 600 000 ml @ 75 mls/hr IV . [id number] [facility] Rx#:[id number] Other: Voiding Method Toilet # Voids 1 Weight 113.852 kg Awake, comfortable, not in any acute distress Examination of the heart S1 and S2 Examination of the lungs bilateral breath sounds are heard Abdomen is soft nontender Examination of lower extremities shows no evidence of edema AV fistula left forearm. Results - Lab Results Most recent lab results Calcium 7.6 mg/dL (8.4-10.2) L 04/12/22 15:00 04/12/22 15:00 04/12/22 15:00 Assessment and Plan Assessment: 1. End-stage renal disease on hemodialysis on a Saturday schedule 2. Abdominal pain possibly related to constipation. No evidence of stones on computed tomography scan 3. CK D mineral bone disorder 4. Hypertension with CK D 5. Dyslipidemia Plan: Hemodialysis in a.m. If patient is discharged she can follow-up for dialysis tomorrow as outpatient. Continue with phosphate binders
--- NOTE | 2022-04-13 14:02 | P.GSCN ---
History of Present Illness Consult date: 04/13/22 History of present illness: CHIEF COMPLAINT: Back pain and abdominal pain HISTORY OF PRESENT ILLNESS: This is a 66-year-old female who had a fall at home a couple a days and has had lower back pain. She's also started to have right- sided abdominal pain that wraps around into the lower back. She reports that about 5 days since her last bowel movement. Patient reports she was having hemodialysis yesterday and was not feeling well and had increase in pain and therefore came into the emergency room for further evaluation. She had a computed tomography scan that had shown minimally dilated small bowel in the low left upper mid abdomen area with concerns of a partial small bowel obstruction. She was made nothing by mouth. She was given an enema and had good results with a large bowel movement. Since that bowel movement patient has now passing flatus. She's also had decrease in her abdominal pain. Her nausea has also improved. Her past surgical history does include cholecystectomy and tubal ligation. Patient is on Plavix with known history of coronary disease with cardiac stent. She denies any fever chills or sweats. Patient reports history of constipation since starting her hemodialysis 2 months ago. PAST MEDICAL HISTORY: See list. PAST SURGICAL HISTORY: See list. MEDICATIONS: See list. ALLERGIES: See list. SOCIAL HISTORY: No illicit drug use. REVIEW OF SYSTEMS: CONSTITUTIONAL: Denies fever or chills. HEENT: Denies blurred vision, vision changes, or eye pain. Denies hemoptysis CARDIOVASCULAR: Denies chest pain or pressure. RESPIRATORY: No shortness of breath. GASTROINTESTINAL: See HPI for pertinent findings HEMATOLOGIC: Denies bleeding disorders. GENITOURINARY: Denies any blood in urine or increased urinary frequency. SKIN: Denies pruitis. Denies rash. PHYSICAL EXAM: VITAL SIGNS: Reviewed GENERAL: Well-developed in no acute distress. HEENT: No sclera icterus. Extraocular movements grossly intact. Moist buccal mucosa. Head is atraumatic, normocephalic. No nasal drainage. ABDOMEN: Soft. Obese. Nondistended. Patient has tenderness with palpation of the right side of the abdomen and right lower back. NEUROLOGIC: Alert and oriented. Cranial nerves II through XII grossly intact. LABORATORY DATA: WBC is 13.1 Hgb 11.3 platelets 139 Sodium is 133 potassium is 3.8 creatinine 2.31 Glucose 139 LFTs normal IMAGING: Computed tomography scan abdomen and pelvis no renal stones or hydronephrosis seen bilaterally. Prominent almost minimally dilated proximal small bowel loops in the left upper and mid abdomen could reflect product of a partial proximal small bowel obstruction. Underlying enteritis cannot be excluded. ASSESSMENT: 1. Partial small bowel obstruction 2. Constipation history 3. End-stage renal disease 4. Surgical History of cholecystectomy and tubal ligation PLAN: -Start clear liquid diet and then advance as tolerated -Continue supportive care -Recommend following a good bowel regimen for constipation -No surgical intervention planned Thank you for this consultation Physician Systems Development Manager note has been reviewed by physician. Signing provider agrees with the documented findings, assessment, and plan of care. Past Medical History Past Medical History: Asthma, Coronary Artery Disease (CAD), Cancer, Heart Failure, COPD, Diabetes Mellitus, GI Bleed, Hyperlipidemia, Hypertension, Myocardial Infarction (NH), Osteoarthritis (OA), Pulmonary Embolus (PE), Renal Disease, Rheumatoid Arthritis (RA), Sleep Apnea/CPAP/BIPAP, Syncope, Thyroid Disorder Additional Past Medical History / Comment(s): IDDM type II poorly controlled,uses cpap bilateral peripheral neuropathy bilateral hands/feet, CKD , UTIs, legally blind bilaterally-sees minimally, thyroid cancer with surgery, goiter, hashimotos, diverticular disease, 2014 upper and lower GI bleeds with blood loss anemia, gout, R humeral fracture with surgery, occasionally bladder incont.past falls, "lt ankle broke 3 places-SX DONE. pt stated "not walking but able to stand and pivot with med boot on," Last Myocardial Infarction Date:: 2009 History of Any Multi-Drug Resistant Organisms: VRE Year Discovered:: 01/17/22 MDRO Source:: Urine Past Surgical History: Adenoidectomy, Back Surgery, Cholecystectomy, Heart Catheterization With Stent, Tonsillectomy Additional Past Surgical History / Comment(s): PCI with stent 2009 & 2018, low back surgery, total R shoulder and total R knee arthroplasties, bilateral hand trigger finger surgeries, EGD, colonoscopy, L eye laser eye surgery for bleed, thyroidectomy.lt tib fib fx-plate and screws. lt arm Dialysis fistula Past Anesthesia/Blood Transfusion Reactions: No Reported Reaction Additional Past Anesthesia/Blood Transfusion Reaction / Comm: Pt has received blood in past without reaction. Date of Last Stent Placement:: 2017 Past Psychological History: Anxiety, Depression Additional Psychological History / Comment(s): Pt resides with her clare, son-in-law and grandchildren x4. She uses a walker to ambulate. She does not drive, her clare takes her to appts. Smoking Status: Never smoker Past Alcohol Use History: None Reported Past Drug Use History: None Reported - Past Family History Mother Family Medical History: Asthma, CVA/TIA, Seizure Disorder Additional Family Medical History / Comment(s): epilepsy Father Family Medical History: COPD, Diabetes Mellitus Additional Family Medical History / Comment(s): many heart problems Medications and Allergies Home Medications Medication Instructions Recorded Confirmed Type Insulin Aspart [NovoLOG Flexpen] See Protocol SQ ACHS 11/21/17 04/12/22 History Levothyroxine Sodium [Synthroid] 175 mcg PO DAILY@0600 11/21/17 04/12/22 History Montelukast [Singulair] 10 mg PO HS@2100 11/21/17 04/12/22 History Atorvastatin [Lipitor] 40 mg PO HS@209909/08/20 04/12/22 History Cholecalciferol [Vitamin D3 (25 50 mcg PO DAILY@169912/09/20 04/12/22 History Mcg = 1000 Iu)] Acetaminophen Tab [Tylenol] 650 mg PO Q4H PRN 11/04/21 04/12/22 History Aspirin EC [Ecotrin Low Dose] 81 mg PO DAILY@169911/04/21 04/12/22 History Budesonide [Pulmicort] 0.5 mg INHALATION RT-BID@0700,1700 11/04/21 04/12/22 History Clopidogrel [Plavix] 75 mg PO DAILY@0800 11/04/21 04/12/22 History Famotidine [Pepcid] 20 mg PO DAILY@0800 11/04/21 04/12/22 History Melatonin 3 mg PO HS@209911/04/21 04/12/22 History Torsemide [Demadex] 20 mg PO DAILY@0800 11/04/21 04/12/22 History carvediloL [Coreg] 25 mg PO BID@0800,1700 11/04/21 04/12/22 History allopurinoL [Zyloprim] 100 mg PO DAILY@0800 #0 11/08/21 04/12/22 Rx DULoxetine HCL [Cymbalta] 60 mg PO DAILY@0800 02/08/22 04/12/22 History Fluticasone Propionate 110 Mcg 2 puff INHALATION RT-BID PRN 02/08/22 04/12/22 History [Flovent 110 Mcg Inhaler] Insulin Degludec [Tresiba] 25 units SQ HS@2100 02/08/22 04/12/22 History Isosorbide Mononitrate ER [Imdur] 30 mg PO SUMOWEFR@0802/08/22 04/12/22 History Liquacel Protein Roselyn 30 ml PO BID@0800,1700 02/08/22 04/12/22 History Ondansetron [Zofran] 4 mg PO BID PRN 02/08/22 04/12/22 History Renal Multivit 1 tab PO DAILY@17002/08/22 04/12/22 History amLODIPine [Norvasc] 5 mg PO SUMOWEFR@0802/08/22 04/12/22 History lisinopriL [Zestril] 5 mg PO SUMOWEFR@0802/08/22 04/12/22 History Albuterol Nebulized [Ventolin 2.5 mg INHALATION RT-Q6H PRN 04/12/22 04/12/22 History Nebulized] Amoxic-Pot Clav 500-125 mg 1 tab PO BID@0700,1700 04/12/22 04/12/22 History [Augmentin 500-125 mg] Ascorbic Acid [Vitamin C] 1,000 mg PO DAILY@0800 04/12/22 04/12/22 History Baclofen 5 mg PO HS PRN 04/12/22 04/12/22 History Calcium Acetate [Phoslo] 667 mg PO AC-TID@07,11,17 04/12/22 04/12/22 History Docusate [Colace] 100 mg PO BID@0800,1700 04/12/22 04/12/22 History Gabapentin [Neurontin] 300 mg PO BID@0800,1700 04/12/22 04/12/22 History HYDROcodone/APAP 5-325MG [[place] 1 tab PO HS PRN 04/12/22 04/12/22 History 5-325] Hydrocortisone Cream 1 applic TOPICAL Q12H PRN 04/12/22 04/12/22 History [Hydrocortisone 1% Cream] Interdry 1 applic TOPICAL BID@0800,2100 04/12/22 04/12/22 History Ipratropium-Albuterol Nebulize 3 ml INHALATION RT-Q6H PRN 04/12/22 04/12/22 History [Duoneb 0.5 mg-3 mg/3 ml Soln] Isosorbide Mononitrate ER [Imdur] 30 mg PO TUTHSA@1700 04/12/22 04/12/22 History Lactulose 20 gm PO DAILY PRN 04/12/22 04/12/22 History Vitamin E Lotion 1 applic TOPICAL BID@0800,1700 04/12/22 04/12/22 History Zinc Sulfate [Orazinc] 220 mg PO DAILY@0800 04/12/22 04/12/22 History amLODIPine [Norvasc] 5 mg PO TUTHSA@1700 04/12/22 04/12/22 History guaiFENesin SYRUP 100MG/5ML 200 mg PO Q4H PRN 04/12/22 04/12/22 History [Robitussin] lisinopriL [Zestril] 5 mg PO TUTHSA@1700 04/12/22 04/12/22 History Allergies Allergy/AdvReac Type Severity Reaction Status Date / Time No Known Allergies Allergy Verified 04/12/22 19:05 Surgical - Exam Vital Signs Temp Pulse Resp BP Pulse Ox 99.6 F 69 18 110/63 97 04/12/22 14:33 04/12/22 14:33 04/12/22 14:33 04/12/22 14:33 04/12/22 14:33 Results - Labs 04/12/22 15:00 04/12/22 15:00 Abnormal Lab Results - Last 24 Hours (Table) 04/12/22 04/12/22 Range/Units 15:00 15:00 WBC 13.1 H (3.8-10.6) k/uL RBC 3.45 L (3.80-5.40) m/uL Hgb 11.3 L (11.4-16.0) gm/dL Hct 33.0 L (34.0-46.0) % RDW 15.8 H (11.5-15.5) % Plt Count 139 L (150-450) k/uL Neutrophils # 10.4 H (1.3-7.7) k/uL Sodium 133 L (137-145) mmol/L Chloride 96 L (98-107) mmol/L BUN 28 H (7-17) mg/dL Creatinine 2.31 H (0.52-1.04) mg/dL Glucose 139 H (74-99) mg/dL Calcium 7.6 L (8.4-10.2) mg/dL Total Protein 5.6 L (6.3-8.2) g/dL Albumin 3.0 L (3.5-5.0) g/dL Diabetes panel 04/12/22 Range/Units 15:00 Sodium 133 L (137-145) mmol/L Potassium 3.8 (3.5-5.1) mmol/L Chloride 96 L (98-107) mmol/L Carbon Dioxide 29 (22-30) mmol/L BUN 28 H (7-17) mg/dL Creatinine 2.31 H (0.52-1.04) mg/dL Glucose 139 H (74-99) mg/dL Calcium 7.6 L (8.4-10.2) mg/dL AST 31 (14-36) U/L ALT 25 (4-34) U/L Alkaline Phosphatase 72 (38-126) U/L Total Protein 5.6 L (6.3-8.2) g/dL Albumin 3.0 L (3.5-5.0) g/dL Calcium panel 04/12/22 Range/Units 15:00 Calcium 7.6 L (8.4-10.2) mg/dL Albumin 3.0 L (3.5-5.0) g/dL Pituitary panel 04/12/22 Range/Units 15:00 Sodium 133 L (137-145) mmol/L Potassium 3.8 (3.5-5.1) mmol/L Chloride 96 L (98-107) mmol/L Carbon Dioxide 29 (22-30) mmol/L BUN 28 H (7-17) mg/dL Creatinine 2.31 H (0.52-1.04) mg/dL Glucose 139 H (74-99) mg/dL Calcium 7.6 L (8.4-10.2) mg/dL Adrenal panel 04/12/22 Range/Units 15:00 Sodium 133 L (137-145) mmol/L Potassium 3.8 (3.5-5.1) mmol/L Chloride 96 L (98-107) mmol/L Carbon Dioxide 29 (22-30) mmol/L BUN 28 H (7-17) mg/dL Creatinine 2.31 H (0.52-1.04) mg/dL Glucose 139 H (74-99) mg/dL Calcium 7.6 L (8.4-10.2) mg/dL Total Bilirubin 0.6 (0.2-1.3) mg/dL AST 31 (14-36) U/L ALT 25 (4-34) U/L Alkaline Phosphatase 72 (38-126) U/L Total Protein 5.6 L (6.3-8.2) g/dL Albumin 3.0 L (3.5-5.0) g/dL
[2022-04-13] MEDS: ASPIRIN 81 MG PO SCH (17:29)
[2022-04-13] MEDS: CHOLECALCIFEROL 25 MCG (1000 IU) TABLET PO SCH (17:30)
[2022-04-13] MEDS: FOLIC ACID-VIT B COMPLEX-VIT C 1 CAP PO SCH (17:31)
[2022-04-13] MEDS: MELATONIN 3 MG TABLET PO SCH (20:30)
[2022-04-13] MEDS: MONTELUKAST 10 MG TAB PO SCH (20:30)
[2022-04-13] MEDS: INSULIN DETEMIR (LEVEMIR) 100 UNIT/ML SYR SQ SCH (20:30)
[2022-04-13] MEDS: ATORVASTATIN 40 MG TAB PO SCH (20:30)
[2022-04-14] MEDS: LEVOTHYROXINE 88 MCG TAB PO SCH (04:45)
[2022-04-14] MEDS: BUDESONIDE 0.5 MG/2 ML NEBU INHALATION SCH ×3 (07:47→19:22)
--- NOTE | 2022-04-14 08:28 | P.PN ---
Subjective Patient is seen in follow-up for end-stage renal disease. She is maintained hemodialysis on Saturday schedule. Hemodynamically stable. Tolerating clear liquid diet. Vital signs are stable. General: Awake. No acute distress. HEENT: Head exam is unremarkable. LUNGS: Breath sounds decreased. HEART: Rate and Rhythm are regular. ABDOMEN: Soft, obese. EXTREMITITES: 1+ edema. Objective - Vital Signs Vital signs: Vital Signs Temp 98.2 F 04/14/22 04:47 Pulse 59 L 04/14/22 04:47 Resp 16 04/14/22 04:47 BP 133/62 04/14/22 04:47 Pulse Ox 93 L 04/14/22 04:47 FiO2 Intake & Output 04/13/22 04/14/22 04/14/22 18:59 06:59 18:59 Intake Total 150 640 Balance 150 640 Intake: Intake, IV Titration 150 Amount Sodium Chloride 0.9% 1, 150 000 ml @ 75 mls/hr IV . [id number] [facility] Rx#:[id number] Oral 640 Other: Voiding Method Toilet Toilet # Voids 5 1 - Labs CBC & Chem 7: 04/12/22 15:00 04/12/22 15:00 Assessment and Plan Plan: Assessment: 1. End-stage renal disease maintained on hemodialysis on Saturday schedule. Currently using P cath. Has a maturing left upper extremity AV fistula. 2. Hypertension with chronic kidney disease. Controlled. 3. Diabetes mellitus. 4. Partial small bowel obstruction. 5. Chronic kidney disease mineral bone disease maintained on PhosLo. Plan: Hemodialysis today. Diet to be transferred surgery. Check phosphorus level.
[2022-04-14] MEDS: CALCIUM ACETATE 667 MG TAB PO SCH ×3 (09:29→18:18)
[2022-04-14 09:42] LABS: HCT 33.7 % (34.0-46.0); HGB 11.2 gm/dL (11.4-16.0); MCH 32.2 pg (25.0-35.0); MCHC 33.2 g/dL (31.0-37.0); Mean Platelet Volume 8.5; Platelet Count 105 k/uL (150-450); RBC 3.47 m/uL (3.80-5.40); RDW 14.8 % (11.5-15.5); WBC 9.7 k/uL (3.8-10.6)
[2022-04-14] MEDS: INTERDRY TOPICAL SCH ×2 (10:05→20:33)
[2022-04-14] MEDS: allopurinoL 100 MG TAB PO SCH (10:07)
[2022-04-14] MEDS: DULoxetine HCL 60 MG CAPSULE.DR PO SCH (10:07)
[2022-04-14] MEDS: carvediloL 12.5 MG TAB PO SCH ×2 (10:07→17:50)
[2022-04-14] MEDS: ASCORBIC ACID 500 MG TAB PO SCH (10:07)
[2022-04-14] MEDS: DOCUSATE 100 MG CAP PO SCH ×2 (10:07→17:50)
[2022-04-14] MEDS: FAMOTIDINE 20 MG TAB PO SCH (10:08)
[2022-04-14] MEDS: GABAPENTIN 300 MG CAP PO SCH ×2 (10:08→17:49)
[2022-04-14] MEDS: ZINC SULFATE 220 MG CAP PO SCH (10:08)
[2022-04-14] MEDS: CLOPIDOGREL 75 MG TAB PO SCH (10:08)
[2022-04-14] MEDS: AMMONIUM LACTATE 12% LOTION 225 GM BTL TOPICAL SCH ×2 (10:09→17:49)
[2022-04-14] MEDS: SODIUM CHLORIDE 0.9% 1,000 ML IV SCH (10:09)
[2022-04-14 10:36] LABS: ALT 135 U/L (4-34); AST 90 U/L (14-36); African American GFR (CKD) 12 (>60 ml/min/1.73 sqM); Albumin 2.8 g/dL (3.5-5.0); Albumin/Globulin Ratio 1.1; Alkaline Phosphatase 105 U/L (38-126); Anion Gap 9 mmol/L; Blood Urea Nitrogen 49 mg/dL (7-17); Calcium 7.9 mg/dL (8.4-10.2); Carbon Dioxide 28 mmol/L (22-30); Chloride 96 mmol/L (98-107); Globulin 2.5 g/dL; Glucose 133 mg/dL (74-99); Non-African American GFR(CKD) 11 (>60 ml/min/1.73 sqM); Potassium 4.3 mmol/L (3.5-5.1); Sodium 133 mmol/L (137-145); Total Bilirubin 0.8 mg/dL (0.2-1.3); Total Protein 5.3 g/dL (6.3-8.2)
--- NOTE | 2022-04-14 14:02 | P.PN ---
Subjective Progress Note Date: 04/14/22 CHIEF COMPLAINT: Small bowel obstruction HISTORY OF PRESENT ILLNESS: The patient is a 66-year-old female admitted with abdominal pain and partial small bowel obstruction. She is resting comfortably. No complaints. Noted soft formed bowel movement yesterday. ROS: No fevers or chills. No new chest pain. No productive sputum. Morbid obesity, BMI 43.1. PHYSICAL EXAM: VITAL SIGNS: Reviewed CONSTITUTIONAL: Well developed and in no acute distress. EYES: Conjuctivae without sclera icterus. Extraocular movements grossly intact. HEAD, EARS, NOSE, THROAT: Moist buccal mucosa. Head is atraumatic, normocephalic. Hears conversational speech. No nasal drainage. RESPIRATORY: Non-labored respirations and equal bilateral excursions. CARDIOVASCULAR: Palpable 2+ radial pulses. ABDOMEN: No peritonitis. MUSCULOSKELETAL: No gross deformity of the lower extremities noted. No clubbing. No cyanosis. SKIN: Good skin turgor. Well perfused. NEUROLOGIC: Cranial nerves II through XII grossly intact. No focal or lateralizing signs. PSYCH: Appropriate affect. Alert and oriented to person, place and time. CLINICAL LABS: Reviewed. WBC improved 13.1-9.7, normal. Hemoglobin stable 11.3-11.2, anemia ASSESSMENT: 1. Small bowel obstruction PLAN: 1. Diet as tolerated Objective - Vital Signs Vital signs: Vital Signs Temp 97.6 F 04/14/22 11:12 Pulse 64 04/14/22 11:12 Resp 16 04/14/22 11:12 BP 172/44 04/14/22 11:12 Pulse Ox 96 04/14/22 11:12 FiO2 Intake & Output 04/13/22 04/14/22 04/14/22 18:59 06:59 18:59 Intake Total 150 640 Balance 150 640 Intake: Intake, IV Titration 150 Amount Sodium Chloride 0.9% 1, 150 000 ml @ 75 mls/hr IV . [id number] Rx#:[id number] Oral 640 Other: Voiding Method Toilet Toilet Toilet # Voids 5 1 - Labs CBC & Chem 7: 04/14/22 09:30 04/14/22 09:30 Labs: Abnormal Lab Results - Last 24 Hours (Table) 04/14/22 04/14/22 04/14/22 Range/Units 09:30 09:30 09:30 RBC 3.47 L (3.80-5.40) m/uL Hgb 11.2 L (11.4-16.0) gm/dL Hct 33.7 L (34.0-46.0) % Plt Count 105 L (150-450) k/uL Sodium 133 L (137-145) mmol/L Chloride 96 L (98-107) mmol/L BUN 49 H (7-17) mg/dL Creatinine 4.11 H (0.52-1.04) mg/dL Glucose 133 H (74-99) mg/dL Calcium 7.9 L (8.4-10.2) mg/dL Phosphorus 6.3 H (2.5-4.5) mg/dL AST 90 H (14-36) U/L ALT 135 H (4-34) U/L Total Protein 5.3 L (6.3-8.2) g/dL Albumin 2.8 L (3.5-5.0) g/dL
--- NOTE | 2022-04-14 17:06 | P.PN ---
Subjective Progress Note Date: 04/14/22 This is a history of physical 66-year-old diabetic white female who has an underlying history of diabetes end-stage renal disease on dialysis for the last several months. She states that since dialysis and started she's been struggling with intermittent abdominal pain. Yesterday she had dialysis and the pain became significant. Computed tomography scan shows possible partial small bowel obstruction versus colitis. She has history of cholecystectomy in the remote past. No previous admissions for any type of ileus that I can remember. Some mild nausea but now this morning she states it is improved. No flatus stated. She is essentially admitted for colitis versus SBO partial. The patient has an underlying history of asthma coronary artery disease COPD diabetes hypertension hyperlipidemia history of rheumatoid arthritis and myocardial infraction 04/14/2022 Patient is seen in follow up today with nephrology and general surgery following. Admitted for partial small bowel obstruction. Patient diet is being increased today per surgery as tolerated and is tolerating thus far. No plans for surgery at this time. Patient is maintained on hemodialysis and nephrology following. Patient is afebrile with no reports of chest pain or shortness of breath. Mild abdominal discomfort although improved. Assessment: (1) Hypotension (2) Abdominal pain (3) ESRD (end stage renal disease) on dialysis (4) SBO (small bowel obstruction), partial (5) At risk for readmission to hospital (6) Chronic renal failure (7) Coronary artery disease (8) Dehydration (9) Diabetic neuropathy Plan: Recommend to advance diet as tolerated per surgery, no surgical intervention at this time Consult nephrology for hemodialysis Repeat am labs Encourage increase activity as tolerated Due to multiple complex medical issues, prognosis is guarded The impression and plan of care has been dictated as a scribe by Tamia Li, nurse practitioner as directed. Dr. Pablo MD I have performed a history and examination and MDM of this patient, discussed the same with the dictator, and has been documented as a scribe. Based on total visit time, I have performed more than 50% of the visit. Any additional findings or plans will be noted. Objective - Vital Signs Vital signs: Vital Signs Temp 98.2 F 04/14/22 04:47 Pulse 59 L 04/14/22 04:47 Resp 16 04/14/22 04:47 BP 133/62 04/14/22 04:47 Pulse Ox 93 L 04/14/22 04:47 FiO2 Intake & Output 04/13/22 04/14/22 04/14/22 18:59 06:59 18:59 Intake Total 150 640 Balance 150 640 Intake: Intake, IV Titration 150 Amount Sodium Chloride 0.9% 1, 150 000 ml @ 75 mls/hr IV . [id number] [facility] Rx#:[id number] Oral 640 Other: Voiding Method Toilet Toilet # Voids 5 1 - Labs CBC & Chem 7: 04/14/22 09:30 04/14/22 09:30
[2022-04-14] MEDS: CHOLECALCIFEROL 25 MCG (1000 IU) TABLET PO SCH (17:49)
[2022-04-14] MEDS: ISOSORBIDE MONONITRATE ER 30 MG TAB.ER.24H PO SCH (17:50)
[2022-04-14] MEDS: lisinopriL 5 MG TAB PO SCH (17:50)
[2022-04-14] MEDS: amLODIPine 5 MG TAB PO SCH (17:50)
[2022-04-14] MEDS: ASPIRIN 81 MG PO SCH (17:50)
[2022-04-14] MEDS: FOLIC ACID-VIT B COMPLEX-VIT C 1 CAP PO SCH (18:18)
[2022-04-14] MEDS: IPRATROPIUM-ALBUTEROL 3 ML NEB INHALATION PRN (19:22)
[2022-04-14] MEDS: INSULIN DETEMIR (LEVEMIR) 100 UNIT/ML SYR SQ SCH (20:27)
[2022-04-14] MEDS: MONTELUKAST 10 MG TAB PO SCH (20:27)
[2022-04-14] MEDS: MELATONIN 3 MG TABLET PO SCH (20:27)
[2022-04-14] MEDS: ATORVASTATIN 40 MG TAB PO SCH (20:27)
[2022-04-15] MEDS: LEVOTHYROXINE 88 MCG TAB PO SCH (05:56)
[2022-04-15] MEDS: BUDESONIDE 0.5 MG/2 ML NEBU INHALATION SCH ×3 (07:23→19:47)
[2022-04-15 08:18] LABS: African American GFR (CKD) 18 (>60 ml/min/1.73 sqM); Anion Gap 5 mmol/L; Blood Urea Nitrogen 24 mg/dL (7-17); Calcium 7.9 mg/dL (8.4-10.2); Carbon Dioxide 28 mmol/L (22-30); Chloride 102 mmol/L (98-107); Glucose 73 mg/dL (74-99); Non-African American GFR(CKD) 15 (>60 ml/min/1.73 sqM); Potassium 4.1 mmol/L (3.5-5.1); Sodium 135 mmol/L (137-145)
[2022-04-15 08:24] LABS: Basophils % (A) 0 %; Eosinophils # (A) 0.2 k/uL (0-0.7); Eosinophils % (A) 3 %; HCT 32.6 % (34.0-46.0); HGB 10.7 gm/dL (11.4-16.0); Lymphocytes # (A) 1.7 k/uL (1.0-4.8); Lymphocytes % (A) 24 %; MCHC 32.9 g/dL (31.0-37.0); MCV 97.3 fL (80.0-100.0); Mean Platelet Volume 8.6; Monocytes # (A) 0.4 k/uL (0-1.0); Monocytes % (A) 6 %; Neutrophils # (A) 4.5 k/uL (1.3-7.7); Neutrophils % (A) 64 %; RBC 3.36 m/uL (3.80-5.40); RDW 15.2 % (11.5-15.5)
[2022-04-15] MEDS: carvediloL 12.5 MG TAB PO SCH ×2 (08:46→17:28)
[2022-04-15] MEDS: ISOSORBIDE MONONITRATE ER 30 MG TAB.ER.24H PO SCH (08:46)
[2022-04-15] MEDS: GABAPENTIN 300 MG CAP PO SCH ×2 (08:47→17:32)
[2022-04-15] MEDS: allopurinoL 100 MG TAB PO SCH (08:47)
[2022-04-15] MEDS: amLODIPine 5 MG TAB PO SCH (08:47)
[2022-04-15] MEDS: ZINC SULFATE 220 MG CAP PO SCH (08:47)
[2022-04-15] MEDS: DOCUSATE 100 MG CAP PO SCH ×2 (08:47→17:31)
--- NOTE | 2022-04-15 08:47 | P.PN ---
Subjective Patient is seen in follow-up for end-stage renal disease. She is maintained hemodialysis on Saturday schedule. Tolerated 2 L ultr afiltration yesterday. Hemodynamically stable. Tolerating full liquid diet. Vital signs are stable. General: Awake. No acute distress. HEENT: Head exam is unremarkable. LUNGS: Breath sounds decreased. HEART: Rate and Rhythm are regular. ABDOMEN: Soft, obese. EXTREMITITES: Trace edema. Objective - Vital Signs Vital signs: Vital Signs Temp 97.0 F L 04/15/22 04:18 Pulse 62 04/15/22 04:18 Resp 16 04/15/22 04:18 BP 103/45 04/15/22 04:18 Pulse Ox 96 04/15/22 04:18 FiO2 Intake & Output 04/14/22 04/15/22 04/15/22 18:59 06:59 18:59 Intake Total 280 Output Total 4000 Balance -4000 280 Intake: Oral 280 Output: Hemodialysis 1999 Other 1999 Other: Voiding Method Toilet # Voids 1 - Labs CBC & Chem 7: 04/15/22 07:36 04/15/22 07:36 Labs: Abnormal Lab Results - Last 24 Hours (Table) 04/14/22 04/14/22 04/14/22 Range/Units 09:30 09:30 09:30 RBC 3.47 L (3.80-5.40) m/uL Hgb 11.2 L (11.4-16.0) gm/dL Hct 33.7 L (34.0-46.0) % Plt Count 105 L (150-450) k/uL Sodium 133 L (137-145) mmol/L Chloride 96 L (98-107) mmol/L BUN 49 H (7-17) mg/dL Creatinine 4.11 H (0.52-1.04) mg/dL Glucose 133 H (74-99) mg/dL Calcium 7.9 L (8.4-10.2) mg/dL Phosphorus 6.3 H (2.5-4.5) mg/dL AST 90 H (14-36) U/L ALT 135 H (4-34) U/L Total Protein 5.3 L (6.3-8.2) g/dL Albumin 2.8 L (3.5-5.0) g/dL 04/15/22 04/15/22 Range/Units 07:36 07:36 RBC 3.36 L (3.80-5.40) m/uL Hgb 10.7 L (11.4-16.0) gm/dL Hct 32.6 L (34.0-46.0) % Plt Count (150-450) k/uL Sodium 135 L (137-145) mmol/L Chloride (98-107) mmol/L BUN 24 H (7-17) mg/dL Creatinine 3.04 H (0.52-1.04) mg/dL Glucose 73 L (74-99) mg/dL Calcium 7.9 L (8.4-10.2) mg/dL Phosphorus (2.5-4.5) mg/dL AST (14-36) U/L ALT (4-34) U/L Total Protein (6.3-8.2) g/dL Albumin (3.5-5.0) g/dL Assessment and Plan Plan: Assessment: 1. End-stage renal disease maintained on hemodialysis on Saturday schedule. Currently using P-cath. Has a maturing left upper extremity AV fistula. 2. Hypertension with chronic kidney disease. Controlled. 3. Diabetes mellitus. 4. Partial small bowel obstruction. 5. Chronic kidney disease mineral bone disease maintained on PhosLo. Phos phorus 6.3 dated 04/14/2022. Plan: Hemodialysis Saturday. Diet to be advanced per surgery. Decrease gabapentin dose to 300 mg once daily. Hold amlodipine for systolic blood pressure less than 120.
[2022-04-15] MEDS: CALCIUM ACETATE 667 MG TAB PO SCH ×3 (08:48→17:31)
[2022-04-15] MEDS: FAMOTIDINE 20 MG TAB PO SCH (08:48)
[2022-04-15] MEDS: CLOPIDOGREL 75 MG TAB PO SCH (08:48)
[2022-04-15] MEDS: DULoxetine HCL 60 MG CAPSULE.DR PO SCH (08:48)
[2022-04-15] MEDS: ASCORBIC ACID 500 MG TAB PO SCH (08:48)
[2022-04-15] MEDS: AMMONIUM LACTATE 12% LOTION 225 GM BTL TOPICAL SCH ×2 (08:49→17:29)
[2022-04-15] MEDS: SODIUM CHLORIDE 0.9% 1,000 ML IV SCH (08:49)
[2022-04-15] MEDS: INTERDRY TOPICAL SCH ×2 (08:49→21:11)
[2022-04-15 08:56] LABS: Platelet Count 96 k/uL (150-450)
[2022-04-15 08:57] LABS: RBC Morphology Normal
[2022-04-15] MEDS: lisinopriL 5 MG TAB PO SCH (13:18)
--- NOTE | 2022-04-15 14:59 | P.PN ---
Subjective Progress Note Date: 04/15/22 CHIEF COMPLAINT: Small bowel obstruction HISTORY OF PRESENT ILLNESS: The patient is a 66-year-old female admitted with abdominal pain and partial small bowel obstruction. She denies passing flatus. She reports her bowel movements have changed since dialysis where she used to be every other day prior to dialysis. Her bowel movements are once every 4-5 days with laxatives. Patient reports needing laxatives for bowel movements. She reports new right upper quadrant discomfort. She is tolerating full liquid diet. ROS: No fevers or chills. No new chest pain. No productive sputum. Morbid obesity, BMI 43.1. She reports prior cholecystectomy PHYSICAL EXAM: VITAL SIGNS: Reviewed CONSTITUTIONAL: Well developed and in no acute distress. EYES: Conjuctivae without sclera icterus. Extraocular movements grossly intact. HEAD, EARS, NOSE, THROAT: Moist buccal mucosa. Head is atraumatic, nor mocephalic. Hears conversational speech. No nasal drainage. RESPIRATORY: Non-labored respirations and equal bilateral excursions. CARDIOVASCULAR: Palpable 2+ radial pulses. ABDOMEN: No peritonitis. Tender right upper quadrant MUSCULOSKELETAL: No gross deformity of the lower extremities noted. No clubbing. No cyanosis. SKIN: Good skin turgor. Well perfused. NEUROLOGIC: Cranial nerves II through XII grossly intact. No focal or lateralizing signs. PSYCH: Appropriate affect. Alert and oriented to person, place and time. CLINICAL LABS: Reviewed. WBC improved 13.1-9.7, normal. Hemoglobin stable 11.3-11.2, anemia STUDIES: CT of the abdomen and pelvis upon admission independently reviewed demonstrates redundant hepatic flexure at right upper quadrant. Stool throughout the colon. No signs of bowel obstruction otherwise. This is my independent interpretation. ASSESSMENT: 1. Chronic constipation 2. End-stage renal disease on dialysis 3. Morbid obesity due to excess calories, BMI 43.1 PLAN: 1. Abdominal x-rays ordered as patient reports recurrent right upper quadrant abdominal pain 2. Will not advance diet at this time Objective - Vital Signs Vital signs: Vital Signs Temp 98.5 F 04/15/22 11:20 Pulse 66 04/15/22 11:20 Resp 16 04/15/22 11:20 BP 112/58 04/15/22 11:20 Pulse Ox 97 04/15/22 11:20 FiO2 Intake & Output 04/14/22 04/15/22 04/15/22 18:59 06:59 18:59 Intake Total 280 Output Total 4000 Balance -4000 280 Intake: Oral 280 Output: Hemodialysis 1999 Other 1999 Other: Voiding Method Toilet Toilet # Voids 1 - Labs CBC & Chem 7: 04/15/22 07:36 04/15/22 07:36 Labs: Abnormal Lab Results - Last 24 Hours (Table) 04/15/22 04/15/22 Range/Units 07:36 07:36 RBC 3.36 L (3.80-5.40) m/uL Hgb 10.7 L (11.4-16.0) gm/dL Hct 32.6 L (34.0-46.0) % Plt Count 96 L (150-450) k/uL Sodium 135 L (137-145) mmol/L BUN 24 H (7-17) mg/dL Creatinine 3.04 H (0.52-1.04) mg/dL Glucose 73 L (74-99) mg/dL Calcium 7.9 L (8.4-10.2) mg/dL
--- NOTE | 2022-04-15 15:56 | XR ---
EXAMINATION TYPE: XR abdomen 2V DATE OF EXAM: 04/15/2022 COMPARISON: NONE HISTORY: Right upper quadrant pain TECHNIQUE: 3 views FINDINGS: Supine and upright views were obtained. No sign of intestinal obstruction or pneumoperitone um. Fecal pattern is normal. There are clips from cholecystectomy. Lung bases are clear. No evidence of a mass. There is lower lumbar spine posterior fusion surgery. IMPRESSION: Nonacute abdomen.
[2022-04-15] MEDS: FOLIC ACID-VIT B COMPLEX-VIT C 1 CAP PO SCH (17:28)
[2022-04-15] MEDS: CHOLECALCIFEROL 25 MCG (1000 IU) TABLET PO SCH (17:31)
[2022-04-15] MEDS: ASPIRIN 81 MG PO SCH (17:31)
[2022-04-15] MEDS: IPRATROPIUM-ALBUTEROL 3 ML NEB INHALATION PRN (19:47)
[2022-04-15] MEDS: INSULIN DETEMIR (LEVEMIR) 100 UNIT/ML SYR SQ SCH (21:09)
[2022-04-15] MEDS: MONTELUKAST 10 MG TAB PO SCH (21:09)
[2022-04-15] MEDS: MELATONIN 3 MG TABLET PO SCH (21:09)
[2022-04-15] MEDS: ATORVASTATIN 40 MG TAB PO SCH (21:09)
--- NOTE | 2022-04-16 02:56 | P.PN ---
Subjective Progress Note Date: 04/15/22 This is a history of physical 66-year-old diabetic white female who has an underlying history of diabetes end-stage renal disease on dialysis for the last several months. She states that since dialysis and started she's been struggling with intermittent abdominal pain. Yesterday she had dialysis and the pain became significant. Computed tomography scan shows possible partial small bowel obstruction versus colitis. She has history of cholecystectomy in the remote past. No previous admissions for any type of ileus that I can remember. Some mild nausea but now this morning she states it is improved. No flatus stated. She is essentially admitted for colitis versus SBO partial. The patient has an underlying history of asthma coronary artery disease COPD diabetes hypertension hyperlipidemia history of rheumatoid arthritis and myocardial infraction 04/14/2022 Patient is seen in follow up today with nephrology and general surgery following. Admitted for partial small bowel obstruction. Patient diet is being increased today per surgery as tolerated and is tolerating thus far. No plans for surgery at this time. Patient is maintained on hemodialysis and nephrology following. Patient is afebrile with no reports of chest pain or shortness of breath. Mild abdominal discomfort although improved. 04/15/2022 Patient is seen today with surgery following and has been advanced to full l iquid. No plan for surgical intervention. Patient reports she is not passing gas or had bowel movement as of yet and xray of the abdomen is ordered. Patient is tolerating diet. Nephrology following as well and maintained on hemodialysis. To receive in am. Plan is for return to [facility] once cleared by surgery. Afebrile and denies chest pain or shortness of breath. Assessment: (1) Hypotension (2) Abdominal pain (3) ESRD (end stage renal disease) on dialysis (4) SBO (small bowel obstruction), partial (5) At risk for readmission to hospital (6) Chronic renal failure (7) Coronary artery disease (8) Dehydration (9) Diabetic neuropathy Plan: Recommend to advance diet as tolerated per surgery, no surgical intervention at this time, currently on full liquid diet. Reports no bm or gas and xray of abdomen ordered nephrology following for hemodialysis Encourage increase activity as tolerated Plan is to return to [facility] in 24-48 hours Due to multiple complex medical issues, prognosis is guarded The impression and plan of care has been dictated as a scribe by Tamia Li, nurse practitioner as directed. Dr. Pablo MD I have performed a history and examination and MDM of this patient, discussed the same with the dictator, and has been documented as a scribe. Based on total visit time, I have performed more than 50% of the visit. Any additional findings or plans will be noted. Objective - Vital Signs Vital signs: Vital Signs Temp 97.0 F L 04/15/22 04:18 Pulse 66 04/15/22 08:46 Resp 16 04/15/22 04:18 BP 153/54 04/15/22 08:46 Pulse Ox 96 04/15/22 04:18 FiO2 Intake & Output 04/14/22 04/15/22 04/15/22 18:59 06:59 18:59 Intake Total 280 Output Total 4000 Balance -4000 280 Intake: Oral 280 Output: Hemodialysis 1999 Other 1999 Other: Voiding Method Toilet # Voids 1 - Labs CBC & Chem 7: 04/15/22 07:36 04/15/22 07:36 Labs: Abnormal Lab Results - Last 24 Hours (Table) 04/14/22 04/14/22 04/14/22 Range/Units 09:30 09:30 09:30 RBC 3.47 L (3.80-5.40) m/uL Hgb 11.2 L (11.4-16.0) gm/dL Hct 33.7 L (34.0-46.0) % Plt Count 105 L (150-450) k/uL Sodium 133 L (137-145) mmol/L Chloride 96 L (98-107) mmol/L BUN 49 H (7-17) mg/dL Creatinine 4.11 H (0.52-1.04) mg/dL Glucose 133 H (74-99) mg/dL Calcium 7.9 L (8.4-10.2) mg/dL Phosphorus 6.3 H (2.5-4.5) mg/dL AST 90 H (14-36) U/L ALT 135 H (4-34) U/L Total Protein 5.3 L (6.3-8.2) g/dL Albumin 2.8 L (3.5-5.0) g/dL 04/15/22 04/15/22 Range/Units 07:36 07:36 RBC 3.36 L (3.80-5.40) m/uL Hgb 10.7 L (11.4-16.0) gm/dL Hct 32.6 L (34.0-46.0) % Plt Count 96 L (150-450) k/uL Sodium 135 L (137-145) mmol/L Chloride (98-107) mmol/L BUN 24 H (7-17) mg/dL Creatinine 3.04 H (0.52-1.04) mg/dL Glucose 73 L (74-99) mg/dL Calcium 7.9 L (8.4-10.2) mg/dL Phosphorus (2.5-4.5) mg/dL AST (14-36) U/L ALT (4-34) U/L Total Protein (6.3-8.2) g/dL Albumin (3.5-5.0) g/dL
[2022-04-16] MEDS: LEVOTHYROXINE 88 MCG TAB PO SCH (06:34)
[2022-04-16] MEDS: BUDESONIDE 0.5 MG/2 ML NEBU INHALATION SCH ×3 (07:18→19:31)
[2022-04-16] MEDS: CALCIUM ACETATE 667 MG TAB PO SCH ×3 (08:16→16:55)
[2022-04-16] MEDS: DULoxetine HCL 60 MG CAPSULE.DR PO SCH (08:16)
[2022-04-16] MEDS: allopurinoL 100 MG TAB PO SCH (08:16)
[2022-04-16] MEDS: carvediloL 12.5 MG TAB PO SCH ×2 (08:16→16:54)
[2022-04-16] MEDS: ZINC SULFATE 220 MG CAP PO SCH (08:17)
[2022-04-16] MEDS: GABAPENTIN 300 MG CAP PO SCH ×2 (08:17→16:55)
[2022-04-16] MEDS: ASCORBIC ACID 500 MG TAB PO SCH (08:17)
[2022-04-16] MEDS: DOCUSATE 100 MG CAP PO SCH ×2 (08:17→16:55)
[2022-04-16] MEDS: INTERDRY TOPICAL SCH ×2 (08:17→21:41)
[2022-04-16] MEDS: ISOSORBIDE MONONITRATE ER 30 MG TAB.ER.24H PO SCH (08:17)
[2022-04-16] MEDS: CLOPIDOGREL 75 MG TAB PO SCH (08:17)
[2022-04-16] MEDS: FAMOTIDINE 20 MG TAB PO SCH (08:17)
[2022-04-16] MEDS: amLODIPine 5 MG TAB PO SCH (08:17)
[2022-04-16] MEDS: AMMONIUM LACTATE 12% LOTION 225 GM BTL TOPICAL SCH ×2 (08:18→16:54)
[2022-04-16] MEDS: SODIUM CHLORIDE 0.9% 1,000 ML IV SCH (08:18)
[2022-04-16] MEDS ORDERED: GABAPENTIN 300 MG CAP PO SCH (09:00)
[2022-04-16] MEDS: lisinopriL 5 MG TAB PO SCH (09:53)
[2022-04-16] MEDS ORDERED: LACTULOSE 20 GM/30 ML CUP PO PRN (10:28)
--- NOTE | 2022-04-16 10:29 | P.PN ---
Subjective Patient is seen in follow-up for end-stage renal disease. She is maintained hemodialysis on Saturday schedule. Has been ambulating with walker. Dialysis tomorrow. Tolerating full liquid diet. Vital signs are stable. General: Awake. No acute distress. HEENT: Head exam is unremarkable. LUNGS: Breath sounds decreased. HEART: Rate and Rhythm are regular. ABDOMEN: Soft, obese. EXTREMITITES: Trace edema. Objective - Vital Signs Vital signs: Vital Signs Temp 98.4 F 04/16/22 04:10 Pulse 63 04/16/22 09:49 Resp 18 04/16/22 04:10 BP 171/61 04/16/22 09:49 Pulse Ox 97 04/16/22 04:10 FiO2 Intake & Output 04/15/22 04/16/22 04/16/22 18:59 06:59 18:59 Intake Total 360 Balance 360 Weight 131.5 kg Intake: Oral 360 Other: Voiding Method Toilet Toilet # Voids 2 0 # Bowel Movements 0 - Labs CBC & Chem 7: 04/15/22 07:36 04/15/22 07:36 Assessment and Plan Plan: Assessment: 1. End-stage renal disease maintained on hemodialysis on Saturday schedule. Currently using P-cath. Has a maturing left upper extremity AV fistula. 2. Hypertension with chronic kidney disease. 3. Diabetes mellitus. 4. Constipation. Surgery following. 5. Chronic kidney disease mineral bone disease maintained on PhosLo. Phosphorus 6.3 dated 04/14/2022. Plan: Hemodialysis Saturday. Diet to be advanced per surgery. Add lactulose as needed for constipation. Avoid Fleet enemas and milk of magnesia.
[2022-04-16] MEDS ORDERED: LACTULOSE 20 GM/30 ML CUP PO ONE (11:09)
--- NOTE | 2022-04-16 11:14 | P.PN ---
Subjective Progress Note Date: 04/16/22 CHIEF COMPLAINT: Abdominal pain HISTORY OF PRESENT ILLNESS: Patient reports no longer having abdominal pain. Denies any nausea or vomiting. Her last bowel movement was on . She denies flatus. Abdominal x-ray shows nonacute abdomen. Fecal pattern is normal. Afebrile. WBC is 7 hemoglobin 10.7 creatinine 3.04 potassium 4.1 PHYSICAL EXAM: VITAL SIGNS: Reviewed. GENERAL: Well-developed in no acute distress. HEENT: No sclera icterus. Extraocular movements grossly intact. Moist buccal mucosa. Head is atraumatic, normocephalic. ABDOMEN: Soft. obese. Nondistended. Nontender. NEUROLOGIC: Alert and oriented. Cranial nerves II through XII grossly intact. ASSESSMENT: 1. Partial small bowel obstruction resolved 2. Constipation 3. End-stage renal disease on dialysis PLAN: -1 dose of lactulose for constipation -Continue full liquid diet -Further recommendations forthcoming per surgeon Physician Director Drug Safety note has been reviewed by physician. Signing provider agrees with the documented findings, assessment, and plan of care. I have personally seen and examined the patient, reviewed the APPLIQUE CUTTER /PAs history, exam and MDM and agree with the assessment and plan as written. Based on total visit time, I have performed more than 50% of the visit. As above: Patient doing better today. Still having some mild right-sided pain. No bowel movement since Saturday. Continue lactulose for now. Advance diet to regular. Objective - Vital Signs Vital signs: Vital Signs Temp 98.4 F 04/16/22 04:10 Pulse 63 04/16/22 09:49 Resp 18 04/16/22 04:10 BP 171/61 04/16/22 09:49 Pulse Ox 97 04/16/22 04:10 FiO2 Intake & Output 04/15/22 04/16/22 04/16/22 18:59 06:59 18:59 Intake Total 360 Balance 360 Weight 131.5 kg Intake: Oral 360 Other: Voiding Method Toilet Toilet Toilet # Voids 2 0 # Bowel Movements 0 - Labs CBC & Chem 7: 04/15/22 07:36 04/15/22 07:36
[2022-04-16] MEDS: ASPIRIN 81 MG PO SCH (16:55)
[2022-04-16] MEDS: CHOLECALCIFEROL 25 MCG (1000 IU) TABLET PO SCH (16:55)
[2022-04-16] MEDS: FOLIC ACID-VIT B COMPLEX-VIT C 1 CAP PO SCH (16:56)
[2022-04-16] MEDS: IPRATROPIUM-ALBUTEROL 3 ML NEB INHALATION PRN (19:31)
[2022-04-16 19:47] VITALS: RESP 16
[2022-04-16] MEDS: INSULIN DETEMIR (LEVEMIR) 100 UNIT/ML SYR SQ SCH (21:36)
[2022-04-16] MEDS: LACTULOSE 20 GM/30 ML CUP PO SCH (21:36)
[2022-04-16] MEDS: MELATONIN 3 MG TABLET PO SCH (21:37)
[2022-04-16] MEDS: MONTELUKAST 10 MG TAB PO SCH (21:38)
[2022-04-16] MEDS: ATORVASTATIN 40 MG TAB PO SCH (21:40)
[2022-04-17] MEDS: LEVOTHYROXINE 88 MCG TAB PO SCH (06:24)
[2022-04-17] MEDS: CALCIUM ACETATE 667 MG TAB PO SCH ×3 (06:26→17:01)
[2022-04-17] MEDS: BUDESONIDE 0.5 MG/2 ML NEBU INHALATION SCH ×2 (07:17→19:10)
[2022-04-17] MEDS: IPRATROPIUM-ALBUTEROL 3 ML NEB INHALATION PRN (07:18)
[2022-04-17] MEDS: ASCORBIC ACID 500 MG TAB PO SCH (07:56)
[2022-04-17] MEDS: DOCUSATE 100 MG CAP PO SCH ×2 (07:56→17:00)
[2022-04-17] MEDS: ISOSORBIDE MONONITRATE ER 30 MG TAB.ER.24H PO SCH ×2 (07:56→17:02)
[2022-04-17] MEDS: amLODIPine 5 MG TAB PO SCH ×2 (07:56→17:01)
[2022-04-17] MEDS: allopurinoL 100 MG TAB PO SCH (07:56)
[2022-04-17] MEDS: ZINC SULFATE 220 MG CAP PO SCH (07:56)
[2022-04-17] MEDS: FAMOTIDINE 20 MG TAB PO SCH (07:56)
[2022-04-17] MEDS: DULoxetine HCL 60 MG CAPSULE.DR PO SCH (07:56)
[2022-04-17] MEDS: GABAPENTIN 300 MG CAP PO SCH ×2 (07:56→17:01)
[2022-04-17] MEDS: CLOPIDOGREL 75 MG TAB PO SCH (07:56)
[2022-04-17] MEDS: lisinopriL 5 MG TAB PO SCH ×2 (07:57→17:00)
[2022-04-17] MEDS: LACTULOSE 20 GM/30 ML CUP PO SCH ×2 (07:58→21:00)
[2022-04-17] MEDS: carvediloL 12.5 MG TAB PO SCH ×2 (08:07→17:01)
[2022-04-17] MEDS: AMMONIUM LACTATE 12% LOTION 225 GM BTL TOPICAL SCH ×2 (08:08→17:08)
[2022-04-17] MEDS: INTERDRY TOPICAL SCH ×2 (08:09→21:05)
--- NOTE | 2022-04-17 08:44 | P.DS ---
Providers Date of admission: 04/12/22 18:14 Attending physician: Jhonathan Baca Consults: 04/12/22 16:43 Consult Physician Urgent Consulting Provider: Tim Rodriguez Consult Reason/Comments: Abdominal pain, possible partial small bowel obstruction Do you want consulting provider notified?: Yes 04/13/22 07:53 Consult Physician Routine Consulting Provider: Pablo Anderson Consult Reason/Comments: dialysis Do you want consulting provider notified?: Yes Primary care physician: Jhonathan Baca - Discharge Diagnosis(es) (1) Hypotension Current Visit: Yes Status: Acute (2) Abdominal pain Current Visit: Yes Status: Acute (3) ESRD (end stage renal disease) on dialysis Current Visit: Yes Status: Acute (4) SBO (small bowel obstruction) Current Visit: Yes Status: Acute (5) At risk for readmission to hospital Current Visit: No Status: Acute (6) Chronic renal failure Current Visit: No Status: Acute (7) Coronary artery disease Current Visit: No Status: Acute (8) Dehydration Current Visit: No Status: Acute (9) Diabetic neuropathy Current Visit: No Status: Acute Hospital Course: This discharge summary on a 66-year-old white female who is essentially minute for constipation and small bowel obstruction was resolved with conservative management. She hasn't underlying history of ESRD and will be discharged once dialysis is complete today. She is essentially been cleared by surgery and we will continue lactulose at a little bit higher dose. Medications 7 reconciled she'll follow-up with me in 3-5 days. Patient Condition at Discharge: Fair Plan - Discharge Summary New Discharge Prescriptions: New Lactulose [Cephulac] 30 gm PO BID #450 ml Continue Insulin Aspart [NovoLOG Flexpen] See Protocol SQ ACHS Montelukast [Singulair] 10 mg PO HS@2100 Levothyroxine Sodium [Synthroid] 175 mcg PO DAILY@0600 Atorvastatin [Lipitor] 40 mg PO HS@2100 Cholecalciferol [Vitamin D3 (25 Mcg = 1000 Iu)] 50 mcg PO DAILY@1700 Acetaminophen Tab [Tylenol] 650 mg PO Q4H PRN PRN Reason: Pain Or Fever > 100.5 Aspirin EC [Ecotrin Low Dose] 81 mg PO DAILY@1700 Budesonide [Pulmicort] 0.5 mg INHALATION RT-BID@0700,1700 carvediloL [Coreg] 25 mg PO BID@0800,1700 Clopidogrel [Plavix] 75 mg PO DAILY@0800 allopurinoL [Zyloprim] 100 mg PO DAILY@0800 #0 amLODIPine [Norvasc] 5 mg PO SUMOWEFR@0800 Ondansetron [Zofran] 4 mg PO BID PRN PRN Reason: Nausea Liquacel Protein Roselyn 30 ml PO BID@0800,1700 Isosorbide Mononitrate ER [Imdur] 30 mg PO SUMOWEFR@0800 Fluticasone Propionate 110 Mcg [Flovent 110 Mcg Inhaler] 2 puff INHALATION RT-BID PRN PRN Reason: Shortness Of Breath amLODIPine [Norvasc] 5 mg PO TUTHSA@1700 Ascorbic Acid [Vitamin C] 1,000 mg PO DAILY@0800 Docusate [Colace] 100 mg PO BID@0800,1700 Gabapentin [Neurontin] 300 mg PO BID@0800,1700 Isosorbide Mononitrate ER [Imdur] 30 mg PO TUTHSA@1700 lisinopriL [Zestril] 5 mg PO TUTHSA@1700 guaiFENesin SYRUP 100MG/5ML [Robitussin] 200 mg PO Q4H PRN PRN Reason: Cough Famotidine [Pepcid] 20 mg PO DAILY@0800 Melatonin 3 mg PO HS@2100 Torsemide [Demadex] 20 mg PO DAILY@0800 Renal Multivit 1 tab PO DAILY@1700 Insulin Degludec [Tresiba] 25 units SQ HS@2100 DULoxetine HCL [Cymbalta] 60 mg PO DAILY@0800 lisinopriL [Zestril] 5 mg PO SUMOWEFR@0800 Interdry 1 applic TOPICAL BID@0800,2100 Vitamin E Lotion 1 applic TOPICAL BID@0800,1700 Amoxic-Pot Clav 500-125 mg [Augmentin 500-125 mg] 1 tab PO BID@0700,1700 Calcium Acetate [PhosLo] 667 mg PO AC-TID@07,11,17 Zinc Sulfate [Orazinc] 220 mg PO DAILY@0800 Albuterol Nebulized [Ventolin Nebulized] 2.5 mg INHALATION RT-Q6H PRN PRN Reason: Shortness Of Breath Baclofen 5 mg PO HS PRN PRN Reason: MUSCLE SPASMS HYDROcodone/APAP 5-325MG [[place] 5-325] 1 tab PO HS PRN PRN Reason: Pain Hydrocortisone Cream [Hydrocortisone 1% Cream] 1 applic TOPICAL Q12H PRN PRN Reason: Rash Ipratropium-Albuterol Nebulize [Duoneb 0.5 mg-3 mg/3 ml Soln] 3 ml INHALATION RT-Q6H PRN PRN Reason: COPD Discontinued Lactulose 20 gm PO DAILY PRN PRN Reason: Constipation Discharge Medication List Insulin Aspart [NovoLOG Flexpen] See Protocol SQ ACHS 11/21/17 [History] Levothyroxine Sodium [Synthroid] 175 mcg PO DAILY@59911/21/17 [History] Montelukast [Singulair] 10 mg PO HS@209911/21/17 [History] Atorvastatin [Lipitor] 40 mg PO HS@209909/08/20 [History] Cholecalciferol [Vitamin D3 (25 Mcg = 1000 Iu)] 50 mcg PO DAILY@169912/09/20 [History] Acetaminophen Tab [Tylenol] 650 mg PO Q4H PRN 11/04/21 [History] Aspirin EC [Ecotrin Low Dose] 81 mg PO DAILY@169911/04/21 [History] Budesonide [Pulmicort] 0.5 mg INHALATION RT-BID@0700,169911/04/21 [History] Clopidogrel [Plavix] 75 mg PO DAILY@0811/04/21 [History] Famotidine [Pepcid] 20 mg PO DAILY@79911/04/21 [History] Melatonin 3 mg PO HS@209911/04/21 [History] Torsemide [Demadex] 20 mg PO DAILY@79911/04/21 [History] carvediloL [Coreg] 25 mg PO BID@0800,1700 11/04/21 [History] allopurinoL [Zyloprim] 100 mg PO DAILY@0800 #0 11/08/21 [Rx] DULoxetine HCL [Cymbalta] 60 mg PO DAILY@79902/08/22 [History] Fluticasone Propionate 110 Mcg [Flovent 110 Mcg Inhaler] 2 puff INHALATION RT- BID PRN 02/08/22 [History] Insulin Degludec [Tresiba] 25 units SQ HS@209902/08/22 [History] Isosorbide Mononitrate ER [Imdur] 30 mg PO SUMOWEFR@0802/08/22 [History] Liquacel Protein Roselyn 30 ml PO BID@0800,1700 02/08/22 [History] Ondansetron [Zofran] 4 mg PO BID PRN 02/08/22 [History] Renal Multivit 1 tab PO DAILY@17002/08/22 [History] amLODIPine [Norvasc] 5 mg PO SUMOWEFR@79902/08/22 [History] lisinopriL [Zestril] 5 mg PO SUMOWEFR@79902/08/22 [History] Albuterol Nebulized [Ventolin Nebulized] 2.5 mg INHALATION RT-Q6H PRN 04/12/22 [History] Amoxic-Pot Clav 500-125 mg [Augmentin 500-125 mg] 1 tab PO BID@0700,1700 04/12/22 [History] Ascorbic Acid [Vitamin C] 1,000 mg PO DAILY@0804/12/22 [History] Baclofen 5 mg PO HS PRN 04/12/22 [History] Calcium Acetate [PhosLo] 667 mg PO AC-TID@,,17 04/12/22 [History] Docusate [Colace] 100 mg PO BID@0800,1700 04/12/22 [History] Gabapentin [Neurontin] 300 mg PO BID@0800,1700 04/12/22 [History] HYDROcodone/APAP 5-325MG [[place] 5-325] 1 tab PO HS PRN 04/12/22 [History] Hydrocortisone Cream [Hydrocortisone 1% Cream] 1 applic TOPICAL Q12H PRN 04/12/22 [History] Interdry 1 applic TOPICAL BID@0800,209904/12/22 [History] Ipratropium-Albuterol Nebulize [Duoneb 0.5 mg-3 mg/3 ml Soln] 3 ml INHALATION RT-Q6H PRN 04/12/22 [History] Isosorbide Mononitrate ER [Imdur] 30 mg PO TUTHSA@17004/12/22 [History] Vitamin E Lotion 1 applic TOPICAL BID@0800,1700 04/12/22 [History] Zinc Sulfate [Orazinc] 220 mg PO DAILY@0800 04/12/22 [History] amLODIPine [Norvasc] 5 mg PO TUTHSA@1700 04/12/22 [History] guaiFENesin SYRUP 100MG/5ML [Robitussin] 200 mg PO Q4H PRN 04/12/22 [History] lisinopriL [Zestril] 5 mg PO TUTHSA@1700 04/12/22 [History] Lactulose [Cephulac] 30 gm PO BID #450 ml 04/17/22 [Rx] Follow up Appointment(s)/Referral(s): Jhonathan Baca MD [Primary Care Provider] - 1-2 days Discharge Disposition: HOME SELF-CARE
[2022-04-17] MEDS: SODIUM CHLORIDE 0.9% 1,000 ML IV SCH (10:26)
--- NOTE | 2022-04-17 12:13 | P.PN ---
Subjective Patient is seen in follow-up for end-stage renal disease. She is maintained hemodialysis on Saturday schedule. Has been ambulating with walker. Dialysis today. Tolerating regular diet. Wants to go back tomorrow. Vital signs are stable. General: Awake. No acute distress. HEENT: Head exam is unremarkable. LUNGS: Breath sounds decreased. HEART: Rate and Rhythm are regular. ABDOMEN: Soft, obese. EXTREMITITES: Trace edema. Objective - Vital Signs Vital signs: Vital Signs Temp 97.8 F 04/17/22 11:04 Pulse 51 L 04/17/22 11:04 Resp 16 04/17/22 11:04 BP 93/45 04/17/22 11:04 Pulse Ox 97 04/17/22 11:04 FiO2 Intake & Output 04/16/22 04/17/22 04/17/22 18:59 06:59 18:59 Output Total 150 Balance -150 Weight 116.5 kg Output: Emesis 150 Other: Voiding Method Toilet Toilet Toilet # Voids 0 # Bowel Movements 0 0 - Labs CBC & Chem 7: 04/15/22 07:36 04/15/22 07:36 Labs: Abnormal Lab Results - Last 24 Hours (Table) 04/17/22 Range/Units 11:25 Coronavirus (PCR) Detected A (Not Detectd) Assessment and Plan Plan: Assessment: 1. End-stage renal disease maintained on hemodialysis on Saturday schedule. Currently using P-cath. Has a maturing left upper extremity AV fistula. 2. Hypertension with chronic kidney disease. Blood pressure in the lower side this morning. 3. Diabetes mellitus. 4. Constipation. Surgery following. 5. Chronic kidney disease mineral bone disease maintained on PhosLo. Phosphorus 6.3 dated 04/14/2022. Plan: Hemodialysis today. Maintain lactulose as needed for constipation. Avoid Fleet enemas and milk of magnesia. Antihypertensives to be held if his systolic blood pressure less than 120.
--- NOTE | 2022-04-17 14:08 | P.PN ---
Subjective Progress Note Date: 04/17/22 CHIEF COMPLAINT: Abdominal pain HISTORY OF PRESENT ILLNESS: Patient reports again having some right-sided abdominal pain. She did have one episode of vomiting yesterday. She is having flatus. Still has had no bowel movement with the lactulose. Patient reports that she is starting to feel full again. She is receiving hemodialysis this morning. Afebrile. Covid positive PHYSICAL EXAM: VITAL SIGNS: Reviewed. GENERAL: Well-developed in no acute distress. HEENT: No sclera icterus. Extraocular movements grossly intact. Moist buccal mucosa. Head is atraumatic, normocephalic. ABDOMEN: Soft. obese. Nondistended. And is palpation of the right side of the abdomen NEUROLOGIC: Alert and oriented. Cranial nerves II through XII grossly intact. ASSESSMENT: 1. Partial small bowel obstruction resolved 2. Constipation 3. End-stage renal disease on dialysis PLAN: -Recommend to hold on discharge until the AM. Would like patient to have a bowel movement before discharge. -Soap cong enema ordered -Continue scheduled lactulose -Continue regular diet Physician Knot Bumper note has been reviewed by physician. Signing provider agrees with the documented findings, assessment, and plan of care. I have personally seen and examined the patient, reviewed the PRINT ROOM WORKER /PAs history, exam and MDM and agree with the assessment and plan as written. Based on total visit time, I have performed more than 50% of the visit. As above: Patient still has some issues with constipation. Had an episode of vomiting. Continue lactulose. Monitor for return of bowel function. Agree with enema. Objective - Vital Signs Vital signs: Vital Signs Temp 97.8 F 04/17/22 11:04 Pulse 51 L 04/17/22 11:04 Resp 16 04/17/22 11:04 BP 93/45 04/17/22 11:04 Pulse Ox 97 04/17/22 11:04 FiO2 Intake & Output 04/16/22 04/17/22 04/17/22 18:59 06:59 18:59 Output Total 150 Balance -150 Weight 116.5 kg Output: Emesis 150 Other: Voiding Method Toilet Toilet Toilet # Voids 0 # Bowel Movements 0 0 - Labs CBC & Chem 7: 04/15/22 07:36 04/15/22 07:36 Labs: Abnormal Lab Results - Last 24 Hours (Table) 04/17/22 Range/Units 11:25 Coronavirus (PCR) Detected A (Not Detectd)
[2022-04-17] MEDS: ASPIRIN 81 MG PO SCH (17:00)
[2022-04-17] MEDS: FOLIC ACID-VIT B COMPLEX-VIT C 1 CAP PO SCH (17:00)
[2022-04-17] MEDS: CHOLECALCIFEROL 25 MCG (1000 IU) TABLET PO SCH (17:01)
[2022-04-17] MEDS: INSULIN DETEMIR (LEVEMIR) 100 UNIT/ML SYR SQ SCH (21:01)
[2022-04-17] MEDS: MELATONIN 3 MG TABLET PO SCH (21:01)
[2022-04-17] MEDS: ATORVASTATIN 40 MG TAB PO SCH (21:01)
[2022-04-17] MEDS: MONTELUKAST 10 MG TAB PO SCH (21:01)
[2022-04-18] MEDS: LEVOTHYROXINE 88 MCG TAB PO SCH (05:40)
[2022-04-18] MEDS: BUDESONIDE 0.5 MG/2 ML NEBU INHALATION SCH (07:55)
[2022-04-18] MEDS: LACTULOSE 20 GM/30 ML CUP PO SCH (08:46)
[2022-04-18] MEDS: DOCUSATE 100 MG CAP PO SCH (08:46)
[2022-04-18] MEDS: INTERDRY TOPICAL SCH (08:46)
[2022-04-18] MEDS: ZINC SULFATE 220 MG CAP PO SCH (08:47)
[2022-04-18] MEDS: CLOPIDOGREL 75 MG TAB PO SCH (08:47)
[2022-04-18] MEDS: ASCORBIC ACID 500 MG TAB PO SCH (08:47)
[2022-04-18] MEDS: allopurinoL 100 MG TAB PO SCH (08:47)
[2022-04-18] MEDS: FAMOTIDINE 20 MG TAB PO SCH (08:47)
[2022-04-18] MEDS: DULoxetine HCL 60 MG CAPSULE.DR PO SCH (08:47)
[2022-04-18] MEDS: CALCIUM ACETATE 667 MG TAB PO SCH (08:47)
[2022-04-18] MEDS: GABAPENTIN 300 MG CAP PO SCH (08:48)
--- NOTE | 2022-04-18 09:43 | P.PN ---
Subjective Patient is seen in follow-up for end-stage renal disease. She is maintained hemodialysis on Saturday schedule. No problems with dialysis yesterday. Has been ambulating with walker. Tolerating regular diet. Wants to go back to [facility]. Vital signs are stable. General: Awake. No acute distress. HEENT: Head exam is unremarkable. LUNGS: Breath sounds decreased. HEART: Rate and Rhythm are regular. ABDOMEN: Soft, obese. EXTREMITITES: Trace edema. Objective - Vital Signs Vital signs: Vital Signs Temp 97.9 F 04/18/22 07:51 Pulse 102 H 04/18/22 07:51 Resp 16 04/18/22 07:51 BP 110/63 04/18/22 07:51 Pulse Ox 93 L 04/18/22 07:51 FiO2 Intake & Output 04/17/22 04/18/22 04/18/22 18:59 06:59 18:59 Intake Total 650 Output Total 2300 Balance -1650 Weight 120 kg Intake: Hemodialysis 650 Output: Hemodialysis 2300 Other: Voiding Method Toilet Toilet Toilet # Voids 0 # Bowel Movements 1 1 - Labs CBC & Chem 7: 04/15/22 07:36 04/15/22 07:36 Labs: Abnormal Lab Results - Last 24 Hours (Table) 04/17/22 Range/Units 11:25 Coronavirus (PCR) Detected A (Not Detectd) Assessment and Plan Plan: Assessment: 1. End-stage renal disease maintained on hemodialysis on Saturday schedule. Currently using P-cath. Has a maturing left upper extremity AV fistula. 2. Hypertension with chronic kidney disease. Blood pressure in the lower side this morning. 3. Diabetes mellitus. 4. Constipation and partial SBO. Surgery following. 5. Chronic kidney disease mineral bone disease maintained on PhosLo. Phosphorus 6.3 dated 04/14/2022. Plan: Hemodialysis tomorrow. Maintain lactulose as needed for constipation. Avoid Fleet enemas and milk of magnesia. Stop amlodipine. Hold lisinopril for systolic blood pressure less than 120.
[2022-04-18] MEDS: carvediloL 12.5 MG TAB PO SCH (10:53)
[2022-04-18] MEDS: AMMONIUM LACTATE 12% LOTION 225 GM BTL TOPICAL SCH (10:53)
[2022-04-18 12:01] VITALS: BP 139/63; PULSE 65; TEMP 98.6
--- NOTE | 2022-04-18 13:00 | P.PN ---
Subjective Progress Note Date: 04/18/22 CHIEF COMPLAINT: Abdominal pain HISTORY OF PRESENT ILLNESS: Patient reports having 3 bowel movements after the soapsuds enema. She is having flatus. She continues to have this right-sided abdominal pain. She reports the pain is better than on admission. She denies any nausea or vomiting. She was able to tolerate diet. Afebrile. Heart rate 102 PHYSICAL EXAM: VITAL SIGNS: Reviewed. GENERAL: Well-developed in no acute distress. HEENT: No sclera icterus. Extraocular movements grossly intact. Moist buccal mucosa. Head is atraumatic, normocephalic. ABDOMEN: Soft. obese. Nondistended. pain with palpation of the right side of the abdomen and flank NEUROLOGIC: Alert and oriented. Cranial nerves II through XII grossly intact. ASSESSMENT: 1. Partial small bowel obstruction resolved 2. Constipation improved 3. End-stage renal disease on dialysis PLAN: -Patient can be discharged from surgical standpoint -Continue scheduled lactulose -Continue regular diet Physician Lead Java [email or web address] Developer note has been reviewed by physician. Signing provider agrees with the documented findings, assessment, and plan of care. I have personally seen and examined the patient, reviewed the SOFTWARE TEST ENGINEER /PAs history, e xam and MDM and agree with the assessment and plan as written. Based on total visit time, I have performed more than 50% of the visit. As above: Patient seems to be doing better today. Pain on the right side is less than it was and she is now moving her bowels better. Continue regular diet. No further workup planned unless patient's pain increases or constipation recurs. Objective - Vital Signs Vital signs: Vital Signs Temp 97.9 F 04/18/22 07:51 Pulse 102 H 04/18/22 07:51 Resp 16 04/18/22 07:51 BP 110/63 04/18/22 07:51 Pulse Ox 93 L 04/18/22 07:51 FiO2 Intake & Output 04/17/22 04/18/22 04/18/22 18:59 06:59 18:59 Intake Total 650 Output Total 2300 Balance -1650 Weight 120 kg Intake: Hemodialysis 650 Output: Hemodialysis 2300 Other: Voiding Method Toilet Toilet Toilet # Voids 0 # Bowel Movements 1 1 - Labs CBC & Chem 7: 04/15/22 07:36 04/15/22 07:36 Labs: Abnormal Lab Results - Last 24 Hours (Table) 04/17/22 Range/Units 11:25 Coronavirus (PCR) Detected A (Not Detectd)
== END 2022-04-18 13:38 | DRG 388 ==
LOC: EC 14:26 → 4SSUR 18:14 → 5NMEDONC 18:59
PROVIDERS: ADMIT Family Medicine; ATTEND Family Medicine
PROC: 5A1D70Z Performance of Urinary Filtration, Intermittent, Less than 6 Hours Per Day (ICD-10-PCS; principal; 2022-04-12)
DX: K56.600 Partial intestinal obstruction, unspecified as to cause (principal); N18.6 End stage renal disease; U07.1 COVID-19; I13.2 Hypertensive heart and chronic kidney disease with heart failure and with stage 5 chronic kidney disease, or end stage renal disease; Z68.41 Body mass index [BMI] 40.0-44.9, adult; E11.22 Type 2 diabetes mellitus with diabetic chronic kidney disease; E66.01 Morbid (severe) obesity due to excess calories; E78.5 Hyperlipidemia, unspecified; E86.0 Dehydration; F32.A Depression, unspecified; F41.9 Anxiety disorder, unspecified; I50.9 Heart failure, unspecified; M10.9 Gout, unspecified; E11.42 Type 2 diabetes mellitus with diabetic polyneuropathy; I25.10 Atherosclerotic heart disease of native coronary artery without angina pectoris; M89.8X9 Other specified disorders of bone, unspecified site; H54.8 Legal blindness, as defined in USA; J44.9 Chronic obstructive pulmonary disease, unspecified; M06.9 Rheumatoid arthritis, unspecified; W19.XXXA Unspecified fall, initial encounter; I25.2 Old myocardial infarction; Y92.009 Unspecified place in unspecified non-institutional (private) residence as the place of occurrence of the external cause; Z99.2 Dependence on renal dialysis; Z95.5 Presence of coronary angioplasty implant and graft; Z85.850 Personal history of malignant neoplasm of thyroid; Z79.899 Other long term (current) drug therapy; Z79.02 Long term (current) use of antithrombotics/antiplatelets; Z79.4 Long term (current) use of insulin; Z79.82 Long term (current) use of aspirin; Z79.890 Hormone replacement therapy; Z90.49 Acquired absence of other specified parts of digestive tract
CPT/HCPCS: 36415; 74019; 74176; 80048; 80053; 84100; 85025; 85027; 87635; 90935; 94640; 96374; 96375; 96376; 99285

== ENCOUNTER 2022-05-16 10:42 | Day surgery (SDC) | payer MEDICARE, OTHER ==
[2022-05-14 10:49] VITALS: BMI 43.1
[~2022-05-16 10:42] MED LIST: SODIUM CHLORIDE 0.9% 1,000 ML in EMPTY BAG 1 BAG IV ONE
[2022-05-16] MEDS ORDERED: SODIUM CHLORIDE 0.9% 500 ML 500 ML IV ONE (10:55)
[2022-05-16 11:13] VITALS: RESP 16; TEMP 98.5
[2022-05-16 11:16] LABS: Glucose,Whole Blood 183 mg/dL (70-110)
[2022-05-16 11:22] LABS: Basophils % (A) 0 %; Eosinophils # (A) 0.3 k/uL (0-0.7); Eosinophils % (A) 4 %; HCT 33.7 % (34.0-46.0); HGB 11.2 gm/dL (11.4-16.0); Hypochromasia Slight; Lymphocytes # (A) 1.7 k/uL (1.0-4.8); Lymphocytes % (A) 23 %; MCH 32.5 pg (25.0-35.0); MCHC 33.2 g/dL (31.0-37.0); Mean Platelet Volume 8.7; Monocytes # (A) 0.5 k/uL (0-1.0); Monocytes % (A) 6 %; Neutrophils # (A) 4.9 k/uL (1.3-7.7); Neutrophils % (A) 64 %; RBC 3.44 m/uL (3.80-5.40); RDW 14.2 % (11.5-15.5); WBC 7.7 k/uL (3.8-10.6)
[2022-05-16 11:27] LABS: Platelet Count 175 k/uL (150-450)
[2022-05-16 12:10] LABS: Calcium 8.7 mg/dL (8.4-10.2); Potassium 5.1 mmol/L (3.5-5.1)
[2022-05-16] MEDS ORDERED: MIDAZOLAM 2 MG/2 ML VIAL IV ONE (12:59)
[2022-05-16] MEDS ORDERED: LIDOCAINE 1% INJ 10MG/ML (5 ML VIAL-PF) SQ ONE (12:59)
[2022-05-16] MEDS ORDERED: fentaNYL (PF) 50 MCG/ML 2 ML AMP IV ONE (12:59)
[2022-05-16] MEDS ORDERED: IOPAMIDOL-250 100ML BTL IV ONE ×2 (13:26)
--- NOTE | 2022-05-16 13:52 | IR ---
EXAMINATION TYPE: IR fistula/abscess/sinus tract DATE OF EXAM: 05/16/2022 COMPARISON: NONE HISTORY: Fluoroscopy time. Fluoroscopy was provided to the referring clinician.
--- NOTE | 2022-05-16 14:10 | P.OP ---
Date of Procedure: 05/16/22 Description of Procedure: Preoperative diagnosis: Non-maturing left upper extremity AV fistula, end-stage renal disease Postoperative diagnosis: Same Procedure: [#1 ultrasound guided left cephalic vein access #2 fistulogram #3 percutaneous transluminal balloon angioplasty of radial artery to cephalic vein anastomosis, 4 x 20 balloon #4 moderate conscious sedation 32 minutes] Surgeon: Shara Roper D.O. EBL: [Less than 5 mL] IV fluids: [See records] Urine output: [Not measured] Drains: [None] Complications: [None] Condition: [Stable] Operative indication and findings: [Patient is a 66-year-old female with end- stage renal disease currently getting dialysis via a chest wall catheter. She had a left radiocephalic fistula created and has shown some degree of partial maturation. There did appear to be mild stenosis of the anastomosis therefore she is brought today for fistulogram to help and aid in maturation. Risks and benefits were discussed, she seemingly understood and was willing to proceed] Procedure in detail: [The left upper extremity was prepped and draped in usual sterile fashion. A preprocedure timeout was performed, all parties were in agreement. The ultrasound was utilized and the left cephalic vein was identified. The skin overlying was anesthetized 1% lidocaine plain. Using the ultrasound, the vein was found to be patent and compressible without thrombus. Permanent image was stored. The vein was cannulated and Seldinger technique was used to place a 5-German sheath. A fistulogram was performed, catheters and wires were used across the anastomosis and a cystogram via the radial artery was performed. There was diminished flow beyond the fistula at the site of the radial artery. The fistula itself appeared patent with some area of stenosis at the anastomosis. There were multiple modest size branches as well. Using catheters and wires a 4 x 20 balloon was placed across the anastomosis and balloon angioplasty was performed. There was significant improvement in the thrill through the vessel area at that point catheters and wires were removed. The sheath was removed and manual pressure was held. Likely the patient will need ligation of the branches however we'll plan to see her back in the office for follow-up evaluation and ultrasound to evaluate for further maturation.] Plan - Discharge Summary Discharge Rx Participant: No New Discharge Prescriptions: No Action Montelukast [Singulair] 10 mg PO HS@2100 Levothyroxine Sodium [Synthroid] 175 mcg PO DAILY@0600 Atorvastatin [Lipitor] 40 mg PO HS@2100 Cholecalciferol [Vitamin D3 (25 Mcg = 1000 Iu)] 50 mcg PO DAILY Acetaminophen Tab [Tylenol] 650 mg PO Q4H PRN PRN Reason: Pain Or Fever > 100.5 Aspirin EC [Ecotrin Low Dose] 81 mg PO DAILY@1700 Budesonide [Pulmicort] 0.5 mg INHALATION RT-BID@0700,1700 carvediloL [Coreg] 25 mg PO BID@0800,1700 Clopidogrel [Plavix] 75 mg PO DAILY@0800 allopurinoL [Zyloprim] 100 mg PO DAILY@0800 #0 Ondansetron [Zofran] 4 mg PO BID PRN PRN Reason: Nausea Isosorbide Mononitrate ER [Imdur] 30 mg PO SUMOWEFR@0800 Fluticasone Propionate 110 Mcg [Flovent 110 Mcg Inhaler] 2 puff INHALATION RT-BID PRN PRN Reason: Shortness Of Breath Docusate [Colace] 100 mg PO BID@0800,1700 Isosorbide Mononitrate ER [Imdur] 30 mg PO TUTHSA@1700 guaiFENesin SYRUP 100MG/5ML [Robitussin] 200 mg PO Q4H PRN PRN Reason: Cough Famotidine [Pepcid] 20 mg PO DAILY@0800 Melatonin 3 mg PO HS@2100 Renal Multivit 1 tab PO DAILY@1700 Insulin Degludec [Tresiba] 20 units SQ HS@2100 DULoxetine HCL [Cymbalta] 60 mg PO DAILY@0800 Vitamin E Lotion 1 applic TOPICAL BID@0800,1700 Calcium Acetate [PhosLo] 667 mg PO AC-TID@07,,17 Albuterol Nebulized [Ventolin Nebulized] 2.5 mg INHALATION RT-Q6H PRN PRN Reason: Shortness Of Breath Baclofen 5 mg PO HS PRN PRN Reason: MUSCLE SPASMS Hydrocortisone Cream [Hydrocortisone 1% Cream] 1 applic TOPICAL Q12H PRN PRN Reason: Rash Ipratropium-Albuterol Nebulize [Duoneb 0.5 mg-3 mg/3 ml Soln] 3 ml INHALATION RT-Q6H PRN PRN Reason: COPD Lactulose [Cephulac] 30 gm PO BID #450 ml Gabapentin [Neurontin] 300 mg PO BID@0800,1700 #6 cap INSULIN LISPRO (HumaLOG) [humaLOG] 0 unit SQ ACHS #10 ml lisinopriL [Zestril] 5 mg PO TUTHSA@1700 #0 lisinopriL [Zestril] 5 mg PO SUMOWEFR@0800 #0 HYDROcodone/APAP 5-325MG [[place] 5-325] 1 tab PO HS PRN #3 tab PRN Reason: Pain Discharge Medication List Levothyroxine Sodium [Synthroid] 175 mcg PO DAILY@0611/21/17 [History] Montelukast [Singulair] 10 mg PO HS@209911/21/17 [History] Atorvastatin [Lipitor] 40 mg PO HS@209909/08/20 [History] Cholecalciferol [Vitamin D3 (25 Mcg = 1000 Iu)] 50 mcg PO DAILY 12/09/20 [History] Acetaminophen Tab [Tylenol] 650 mg PO Q4H PRN 11/04/21 [History] Aspirin EC [Ecotrin Low Dose] 81 mg PO DAILY@169911/04/21 [History] Budesonide [Pulmicort] 0.5 mg INHALATION RT-BID@07,169911/04/21 [History] Clopidogrel [Plavix] 75 mg PO DAILY@0811/04/21 [History] Famotidine [Pepcid] 20 mg PO DAILY@79911/04/21 [History] Melatonin 3 mg PO HS@209911/04/21 [History] carvediloL [Coreg] 25 mg PO BID@0800,169911/04/21 [History] allopurinoL [Zyloprim] 100 mg PO DAILY@0800 #0 11/08/21 [Rx] DULoxetine HCL [Cymbalta] 60 mg PO DAILY@0802/08/22 [History] Fluticasone Propionate 110 Mcg [Flovent 110 Mcg Inhaler] 2 puff INHALATION RT- BID PRN 02/08/22 [History] Insulin Degludec [Tresiba] 20 units SQ HS@209902/08/22 [History] Isosorbide Mononitrate ER [Imdur] 30 mg PO SUMOWEFR@0800 02/08/22 [History] Ondansetron [Zofran] 4 mg PO BID PRN 02/08/22 [History] Renal Multivit 1 tab PO DAILY@1700 02/08/22 [History] Albuterol Nebulized [Ventolin Nebulized] 2.5 mg INHALATION RT-Q6H PRN 04/12/22 [History] Baclofen 5 mg PO HS PRN 04/12/22 [History] Calcium Acetate [PhosLo] 667 mg PO AC-TID@07,11,17 04/12/22 [History] Docusate [Colace] 100 mg PO BID@0800,1700 04/12/22 [History] Hydrocortisone Cream [Hydrocortisone 1% Cream] 1 applic TOPICAL Q12H PRN 04/12/22 [History] Ipratropium-Albuterol Nebulize [Duoneb 0.5 mg-3 mg/3 ml Soln] 3 ml INHALATION RT-Q6H PRN 04/12/22 [History] Isosorbide Mononitrate ER [Imdur] 30 mg PO TUTHSA@1700 04/12/22 [History] Vitamin E Lotion 1 applic TOPICAL BID@0800,1700 04/12/22 [History] guaiFENesin SYRUP 100MG/5ML [Robitussin] 200 mg PO Q4H PRN 04/12/22 [History] Lactulose [Cephulac] 30 gm PO BID #450 ml 04/17/22 [Rx] Gabapentin [Neurontin] 300 mg PO BID@0800,1700 #6 cap 04/18/22 [Rx] HYDROcodone/APAP 5-325MG [[place] 5-325] 1 tab PO HS PRN #3 tab 04/18/22 [Rx] INSULIN LISPRO (HumaLOG) [humaLOG] 0 unit SQ ACHS #10 ml 04/18/22 [Rx] lisinopriL [Zestril] 5 mg PO SUMOWEFR@0800 #0 04/18/22 [Rx] lisinopriL [Zestril] 5 mg PO TUTHSA@1700 #0 04/18/22 [Rx] Follow up Appointment(s)/Referral(s): Shara Roper DO [STAFF PHYSICIAN] - 2 Weeks (officee will call for appt) Activity/Diet/Wound Care/Special Instructions: Resume regular diet. Resume regular activities. May resume all medications as previous. Will need an ultrasound, the office will call to have this scheduled. Discharge Disposition: TRANSFER TO SNF/ECF
[2022-05-16 14:22] VITALS: BP 171/72; PULSE 62
== END 2022-05-16 14:43 ==
LOC: CATHCVL 10:42
PROVIDERS: ATTEND Surgery
DX: E11.22 Type 2 diabetes mellitus with diabetic chronic kidney disease (principal); N18.6 End stage renal disease; Z99.2 Dependence on renal dialysis; Z79.82 Long term (current) use of aspirin; Z79.4 Long term (current) use of insulin; Z79.899 Other long term (current) drug therapy
CPT/HCPCS: 36902; 80048; 85025; C1894; C1769 ×3; C1725; J2250; J2001; J3010; Q9966

== ENCOUNTER 2022-10-30 16:30 | Observation (INO) | payer MEDICARE, OTHER ==
--- NOTE | 2022-10-30 16:54 | ED ---
Recheck HPI - General Chief Complaint: Recheck/Abnormal Lab/Rx Stated Complaint: Clogged dialysis port Time Seen by Provider: 10/30/22 16:37 Source: patient Mode of arrival: ambulatory Limitations: no limitations - Related Data Home Medications Medication Instructions Recorded Confirmed Levothyroxine Sodium [Synthroid] 175 mcg PO DAILY@0600 11/21/17 10/30/22 Montelukast [Singulair] 10 mg PO HS@2100 11/21/17 10/30/22 Atorvastatin [Lipitor] 40 mg PO HS@2100 09/08/20 10/30/22 Cholecalciferol [Vitamin D3 (25 50 mcg PO DAILY@1700 12/09/20 10/30/22 Mcg = 1000 Iu)] Acetaminophen Tab [Tylenol] 650 mg PO Q4H PRN 11/04/21 10/30/22 Aspirin EC [Ecotrin Low Dose] 81 mg PO DAILY@17011/04/21 10/30/22 Budesonide [Pulmicort] 0.5 mg INHALATION RT-BID@0700,1700 11/04/21 10/30/22 Clopidogrel [Plavix] 75 mg PO DAILY@0800 11/04/21 10/30/22 DULoxetine HCL [Cymbalta] 60 mg PO DAILY@0800 02/08/22 10/30/22 Fluticasone Propionate 110 Mcg 2 puff INHALATION RT-BID PRN 02/08/22 10/30/22 [Flovent 110 Mcg Inhaler] Insulin Degludec [Tresiba] 20 units SQ HS@2130 02/08/22 10/30/22 Isosorbide Mononitrate ER [Imdur] 30 mg PO BID@0800,1700 02/08/22 10/30/22 Ondansetron [Zofran] 4 mg PO BID PRN 02/08/22 10/30/22 Baclofen 5 mg PO Q8H PRN 04/12/22 10/30/22 Calcium Acetate [PhosLo] 667 mg PO TUTHSA@1400 04/12/22 10/30/22 Docusate [Colace] 100 mg PO BID@0800,1700 04/12/22 10/30/22 Vitamin E Lotion 1 applic TOPICAL BID@0800,1700 04/12/22 10/30/22 Furosemide [Lasix] 60 mg PO BID@0800,1700 08/06/22 10/30/22 INSULIN LISPRO (HumaLOG) [humaLOG] See Protocol SQ ACHS 08/06/22 10/30/22 carvediloL [Coreg] 12.5 mg PO SUMOWEFR@0800 08/06/22 10/30/22 Gabapentin [Neurontin] 100 mg PO BID@0800,2100 09/28/22 10/30/22 Ipratropium-Albuterol Nebulize 3 ml INHALATION RT-Q6H PRN 09/28/22 10/30/22 [Duoneb 0.5 mg-3 mg/3 ml Soln] Liquacel Protein Supplement 30 ml PO BID@0800,1700 09/28/22 10/30/22 Loperamide [Imodium] 2 mg PO QID PRN 09/28/22 10/30/22 allopurinoL [Zyloprim] 100 mg PO DAILY@0800 09/28/22 10/30/22 lisinopriL [Zestril] 5 mg PO SUMOWEFR@0800 09/28/22 10/30/22 Calcium Acetate [Phoslo] 667 mg PO BID@0800,1800 10/30/22 10/30/22 Calcium Acetate [Phoslo] 667 mg PO SUMOWEFR@1200 10/30/22 10/30/22 Famotidine [Pepcid] 10 mg PO DAILY@0800 10/30/22 10/30/22 Hydrocortisone Cream 1 applic TOPICAL BID PRN 10/30/22 10/30/22 [Hydrocortisone 1% Cream] Interdry 10 1 applic TOPICAL BID@0800,2100 10/30/22 Midodrine HCl 5 mg PO TUTHSA 10/30/22 10/30/22 Renal Multivitamin Formula Tab 1 tab PO DAILY@1700 10/30/22 10/30/22 bisacodyL [Dulcolax] 10 mg RECTAL DAILY PRN 10/30/22 10/30/22 carvediloL [Coreg] 12.5 mg PO DAILY@1700 10/30/22 10/30/22 guaiFENesin SYRUP 100MG/5ML 200 mg PO Q4H PRN 05/09/23 05/09/23 [Robitussin] lisinopriL [Zestril] 5 mg PO DAILY@1700 10/30/22 10/30/22 Previous Rx's Medication Instructions Recorded HYDROcodone/APAP 5-325MG [[place] 1 tab PO Q8H PRN #4 tab 08/10/22 5-325] Allergies Allergy/AdvReac Type Severity Reaction Status Date / Time No Known Allergies Allergy Verified 10/30/22 20:16 Review of Systems ROS Statement: Those systems with pertinent positive or pertinent negative responses have been documented in the HPI. ROS Other: All systems not noted in ROS Statement are negative. Past Medical History Past Medical History: Asthma, Coronary Artery Disease (CAD), Cancer, Heart Failure, COPD, Diabetes Mellitus, GI Bleed, Hyperlipidemia, Hypertension, Myocardial Infarction (IA), Osteoarthritis (OA), Pulmonary Embolus (PE), Renal Disease, Rheumatoid Arthritis (RA), Sleep Apnea/CPAP/BIPAP, Syncope, Thyroid Disorder Additional Past Medical History / Comment(s): IDDM type II ,uses cpap ., peripheral neuropathy bilateral hands/feet, CKD , UTIs, legally blind bilaterally-sees minimally, thyroid cancer with surgery, goiter, hashimotos, diverticular disease, 2013 upper and lower GI bleeds with blood loss anemia, gout, R humeral fracture with surgery., hx falls., hx left ankle fxs., Hemodialysis saturday//saturdays at [facility] in [place]., pt has chest port. , left forearm fistula., hospitalized at [facility] 09/26/22 to 09/27/22 for change in mental status / loss of coordination. hx updated with nurse Felisa Benito nurse retail general manager at [facility]., friend Shirley states patient can stand to transfer but uses wheelchair mostly. Last Myocardial Infarction Date:: 2009 History of Any Multi-Drug Resistant Organisms: VRE Date of last positivie culture/infection: 01/17/22 MDRO Source:: Urine Past Surgical History: Adenoidectomy, Back Surgery, Cholecystectomy, Heart Catheterization With Stent, Tonsillectomy Additional Past Surgical History / Comment(s): PCI with stent 2009 & 2018, low back surgery, total R shoulder and total R knee arthroplasties, bilateral hand trigger finger surgeries, EGD, colonoscopy, L eye laser eye surgery for bleed, thyroidectomy.lt tib fib fx-plate and screws. lt arm Dialysis fistula Past Anesthesia/Blood Transfusion Reactions: Unable to Obtain Additional Past Anesthesia/Blood Transfusion Reaction / Comment(s): . Date of Last Stent Placement:: 2017 Past Psychological History: Anxiety, Depression Smoking Status: Unknown if ever smoked Past Alcohol Use History: None Reported Past Drug Use History: None Reported - Past Family History Mother Family Medical History: Asthma, CVA/TIA, Seizure Disorder Additional Family Medical History / Comment(s): epilepsy Father Family Medical History: COPD, Diabetes Mellitus Additional Family Medical History / Comment(s): many heart problems General Exam Limitations: no limitations Course Vital Signs 10/30/22 10/30/22 10/30/22 16:39 19:33 20:00 Temperature 98.7 F Pulse Rate 73 72 73 Respiratory 16 15 Rate Blood Pressure 99/39 121/68 O2 Sat by Pulse 94 L 98 98 Oximetry - Reevaluation(s) Reevaluation #1: 10/30/22 22:13 Medical record is reviewed Reevaluation #2: 10/30/22 22:14 Patient has no change in symptoms in a symptomatic throughout ER stay Reevaluation #3: 10/30/22 22:14 Patient informed results and questions answered Reevaluation #4: 10/30/22 22:10 Was pt. sent in by a medical professional or institution? @ -yes dialysis center Did you speak to anyone other than the patient for history? @ -yes EMS Did you review nursing and triage notes? @ -agree Were old charts reviewed? @ -yes prior Differential Diagnosis? @ -prior EKG interpreted by me (3pts min.)? @ -yes X-rays interpreted by me (1pt min.)? @ -no CT interpreted by me (1pt min.)? @ -no U/S interpreted by me (1pt. min.)? @ -no What testing was considered but not performed? (CT, X-rays, U/S, labs)? Why? @ -no What meds were considered but not given? Why? @ -no Did you discuss the management of the patient with other professionals? @ -no Did you reconcile home meds? @ -yes Was smoking cessation discussed for >3mins.? @ -no Was critical care preformed (if so, how long)? @ -no Were there social determinants of health that impacted care today? How? (Homelessness, low income, unemployed, alcoholism, drug addiction, transportation, low edu. Level, literacy, decrease access to med. care, usp, rehab)? @ -no Was there de-escalation of care discussed even if they declined? (Discuss DNR or withdrawal of care, Hospice)? @ -no What co-morbidities impacted this encounter? (DM, HTN, Smoking, COPD, CAD, Cancer, CVA, Hep., AIDS, mental health diagnosis, sleep apnea, morbid obesity)? @ -none Was patient admitted / discharged? @ -admit Undiagnosed new problem with uncertain prognosis? @ -no Drug Therapy requiring intensive monitoring for toxicity (Heparin, Nitro, Insulin, Cardizem)? @ -no Were any procedures done? @ -no Diagnosis/symptom? @ -ashley catheter malfunction Acute, or Chronic, or Acute on Chronic? @ -acute Uncomplicated (without systemic symptoms) or Complicated (systemic symptoms)? @ -uncomplicated Side effects of treatment? @ -no Exacerbation, Progression, or Severe Exacerbation] @ -no Poses a threat to life or bodily function? @ -yes without replacement of catheter - Consultations Consultation #1: spoke w ADMITTING PHYSICIANS WHO ACCEPT ADMISSION Medical Decision Making - Medical Decision Making 67 female with Plan catheter malfunction, dialysis catheter not functioning today at dialysis despite multiple attempts resolve issue patient be admitted for further evaluation regarding catheter placement - Lab Data Result diagrams: 10/30/22 18:32 10/30/22 18:32 Lab Results 10/30/22 10/30/22 10/30/22 Range/Units 18:32 18:32 18:32 WBC 4.9 (3.8-10.6) k/uL RBC 3.63 L (3.80-5.40) m/uL Hgb 10.8 L (11.4-16.0) gm/dL Hct 35.5 (34.0-46.0) % MCV 97.9 (80.0-100.0) fL MCH 29.6 (25.0-35.0) pg MCHC 30.3 L (31.0-37.0) g/dL RDW 15.1 (11.5-15.5) % Plt Count 149 L (150-450) k/uL MPV 8.7 Neutrophils % 48 % Lymphocytes % 37 % Monocytes % 9 % Eosinophils % 4 % Basophils % 0 % Neutrophils # 2.3 (1.3-7.7) k/uL Lymphocytes # 1.8 (1.0-4.8) k/uL Monocytes # 0.4 (0-1.0) k/uL Eosinophils # 0.2 (0-0.7) k/uL Basophils # 0.0 (0-0.2) k/uL Hypochromasia Slight PT 9.8 (9.0-12.0) sec INR 0.9 (<1.2) APTT 22.7 (22.0-30.0) sec D-Dimer 2.82 H (<0.60) mg/L FEU Sodium 135 L (137-145) mmol/L Potassium 4.8 (3.5-5.1) mmol/L Chloride 94 L (98-107) mmol/L Carbon Dioxide 30 (22-30) mmol/L Anion Gap 11 mmol/L BUN 52 H (7-17) mg/dL Creatinine 5.86 H (0.52-1.04) mg/dL Est GFR (CKD-EPI)AfAm 8 (>60 ml/min/1.73 sqM) Est GFR (CKD-EPI)NonAf 7 (>60 ml/min/1.73 sqM) Glucose 179 H (74-99) mg/dL Plasma Lactic Acid [place] (0.7-2.0) mmol/L Calcium 8.3 L (8.4-10.2) mg/dL Phosphorus 5.7 H (2.5-4.5) mg/dL Magnesium 2.2 (1.6-2.3) mg/dL Total Bilirubin 0.5 (0.2-1.3) mg/dL AST 27 (14-36) U/L ALT 18 (4-34) U/L Alkaline Phosphatase 72 (38-126) U/L Troponin I (0.000-0.034) ng/mL NT-Pro-B Natriuret Pep pg/mL Total Protein 6.5 (6.3-8.2) g/dL Albumin 3.2 L (3.5-5.0) g/dL 10/30/22 10/30/22 10/30/22 Range/Units 18:32 18:32 19:20 WBC (3.8-10.6) k/uL RBC (3.80-5.40) m/uL Hgb (11.4-16.0) gm/dL Hct (34.0-46.0) % MCV (80.0-100.0) fL MCH (25.0-35.0) pg MCHC (31.0-37.0) g/dL RDW (11.5-15.5) % Plt Count (150-450) k/uL MPV Neutrophils % % Lymphocytes % % Monocytes % % Eosinophils % % Basophils % % Neutrophils # (1.3-7.7) k/uL Lymphocytes # (1.0-4.8) k/uL Monocytes # (0-1.0) k/uL Eosinophils # (0-0.7) k/uL Basophils # (0-0.2) k/uL Hypochromasia PT (9.0-12.0) sec INR (<1.2) APTT (22.0-30.0) sec D-Dimer (<0.60) mg/L FEU Sodium (137-145) mmol/L Potassium (3.5-5.1) mmol/L Chloride (98-107) mmol/L Carbon Dioxide (22-30) mmol/L Anion Gap mmol/L BUN (7-17) mg/dL Creatinine (0.52-1.04) mg/dL Est GFR (CKD-EPI)AfAm (>60 ml/min/1.73 sqM) Est GFR (CKD-EPI)NonAf (>60 ml/min/1.73 sqM) Glucose (74-99) mg/dL Plasma Lactic Acid [place] 0.9 (0.7-2.0) mmol/L Calcium (8.4-10.2) mg/dL Phosphorus (2.5-4.5) mg/dL Magnesium (1.6-2.3) mg/dL Total Bilirubin (0.2-1.3) mg/dL AST (14-36) U/L ALT (4-34) U/L Alkaline Phosphatase (38-126) U/L Troponin I 0.016 (0.000-0.034) ng/mL NT-Pro-B Natriuret Pep 3450 pg/mL Total Protein (6.3-8.2) g/dL Albumin (3.5-5.0) g/dL - EKG Data -: EKG Interpreted by Me (EKG is 68 QRS 132 QTC 460) Disposition Clinical Impression: ARF (acute renal failure), ESRD (end stage renal disease) on dialysis Narrative: Dialysis Catheter Malfunction Disposition: ADMITTED IP TO THIS HOSP Condition: Fair Is patient prescribed a controlled substance at d/c from ED?: No Time of Disposition: 21:05
[2022-10-30] MEDS ORDERED: SODIUM CHLORIDE 0.9% 1,000 ML IV STA (17:51)
[2022-10-30] MEDS ORDERED: HYDROmorphone 1 MG/ML 1 ML SYRINGE IVP STA (17:51)
[2022-10-30 19:28] LABS: Basophils % (A) 0 %; Eosinophils # (A) 0.2 k/uL (0-0.7); Eosinophils % (A) 4 %; HCT 35.5 % (34.0-46.0); HGB 10.8 gm/dL (11.4-16.0); Hypochromasia Slight; Lymphocytes # (A) 1.8 k/uL (1.0-4.8); Lymphocytes % (A) 37 %; MCH 29.6 pg (25.0-35.0); MCHC 30.3 g/dL (31.0-37.0); MCV 97.9 fL (80.0-100.0); Mean Platelet Volume 8.7; Monocytes # (A) 0.4 k/uL (0-1.0); Monocytes % (A) 9 %; Neutrophils # (A) 2.3 k/uL (1.3-7.7); Neutrophils % (A) 48 %; Platelet Count 149 k/uL (150-450); RBC 3.63 m/uL (3.80-5.40); RDW 15.1 % (11.5-15.5); WBC 4.9 k/uL (3.8-10.6)
[2022-10-30 19:40] LABS: Albumin 3.2 g/dL (3.5-5.0); Calcium 8.3 mg/dL (8.4-10.2); Magnesium 2.2 mg/dL (1.6-2.3); Phosphorus 5.7 mg/dL (2.5-4.5); Potassium 4.8 mmol/L (3.5-5.1); Total Bilirubin 0.5 mg/dL (0.2-1.3); Total Protein 6.5 g/dL (6.3-8.2)
[2022-10-30 19:45] LABS: INR 0.9 (<1.2); Partial Thromboplastin Time 22.7 sec (22.0-30.0); Prothrombin Time 9.8 sec (9.0-12.0)
[2022-10-30] MEDS ORDERED: HYDROmorphone 1 MG/ML 1 ML SYRINGE IVP PRN (21:17)
[2022-10-30] MEDS ORDERED: NALOXONE 0.4 MG/ML 1 ML VIAL IV PRN (21:17)
[2022-10-30] MEDS ORDERED: SODIUM CHLORIDE 0.9% 1,000 ML IV SCH (21:30)
[2022-10-31 05:59] LABS: Glucose,Whole Blood 157 mg/dL (70-110)
[2022-10-31 08:24] LABS: Basophils % (A) 0 %; Eosinophils # (A) 0.2 k/uL (0-0.7); Eosinophils % (A) 3 %; HCT 37.2 % (34.0-46.0); HGB 11.7 gm/dL (11.4-16.0); Hypochromasia Slight; Lymphocytes # (A) 1.4 k/uL (1.0-4.8); Lymphocytes % (A) 26 %; MCH 30.1 pg (25.0-35.0); MCHC 31.3 g/dL (31.0-37.0); MCV 96.1 fL (80.0-100.0); Mean Platelet Volume 8.3; Monocytes # (A) 0.4 k/uL (0-1.0); Monocytes % (A) 8 %; Neutrophils # (A) 3.3 k/uL (1.3-7.7); Neutrophils % (A) 59 %; Platelet Count 131 k/uL (150-450); RBC 3.88 m/uL (3.80-5.40); RDW 15.1 % (11.5-15.5); WBC 5.6 k/uL (3.8-10.6)
[2022-10-31 08:50] LABS: Albumin 3.2 g/dL (3.5-5.0); Calcium 8.5 mg/dL (8.4-10.2); Total Bilirubin 0.6 mg/dL (0.2-1.3); Total Protein 6.5 g/dL (6.3-8.2)
[2022-10-31 08:55] LABS: Magnesium 2.2 mg/dL (1.6-2.3); Phosphorus 6.3 mg/dL (2.5-4.5); Potassium 4.5 mmol/L (3.5-5.1)
[2022-10-31] MEDS ORDERED: MIDODRINE 5 MG TAB PO STA (11:19)
--- NOTE | 2022-10-31 11:22 | XR ---
EXAMINATION TYPE: XR chest 1V confirm [facility] DATE OF EXAM: 10/31/2022 COMPARISON: 08/06/2022 HISTORY: Line placement TECHNIQUE: Single frontal view of the chest is obtained. FINDINGS: Right-sided central venous dialysis catheter with the tip overlying the cavoatrial junctio n. Heart enlarged with no overt failure. No consolidation or pleural effusion. No pneumothorax. Diffu se osteopenia and postsurgical change right shoulder. Atherosclerotic change aorta. IMPRESSION: 1. Dialysis catheter seen with the tip overlying the cavoatrial junction. No sizable pneumothorax. 2. Cardiomegaly
--- NOTE | 2022-10-31 11:33 | P.NPCON ---
History of Present Illness - Reason for Consult end stage renal disease - History of Present Illness Patient is a 67-year-old female with end-stage renal disease maintained on hemodialysis on a Saturday schedule. Patient had issues with her catheter yesterday and was only able to receive 1 hour of treatment. She did have cath flow placed back to catheter did not work. Blood pressure was low and patient was sent into the emergency room. Patient denies any significant chest pain shortness of breath nausea vomiting or abdominal pain. She is afebrile Dialysis will be attempted today and if her catheter is functional patient will be dialyzed and discharged home. She will follow-up with vascular surgery as outpatient. Review of Systems As per HPI Past Medical History Past Medical History: Asthma, Coronary Artery Disease (CAD), Cancer, Heart Failure, COPD, Diabetes Mellitus, GI Bleed, Hyperlipidemia, Hypertension, Myocardial Infarction ([place]), Osteoarthritis (OA), Pulmonary Embolus (PE), Renal Disease, Rheumatoid Arthritis (RA), Sleep Apnea/CPAP/BIPAP, Syncope, Thyroid Disorder Additional Past Medical History / Comment(s): IDDM type II ,uses cpap ., peripheral neuropathy bilateral hands/feet, CKD , UTIs, legally blind bilaterally-sees minimally, thyroid cancer with surgery, goiter, hashimotos, diverticular disease, 2014 upper and lower GI bleeds with blood loss anemia, gout, R humeral fracture with surgery., hx falls., hx left ankle fxs., Hemodialysis saturday//saturdays at [facility] in [place]., pt has chest port. , left forearm fistula., hospitalized at [facility] 09/26/22 to 09/27/22 for change in mental status / loss of coordination. hx updated with nurse Felisa Benito nurse poker room manager at [facility]., friend Shirley states patient can stand to transfer but uses wheelchair mostly. Last Myocardial Infarction Date:: 2009 History of Any Multi-Drug Resistant Organisms: VRE Date of last positivie culture/infection: 01/17/22 MDRO Source:: Urine Past Surgical History: Adenoidectomy, Back Surgery, Cholecystectomy, Heart C atheterization With Stent, Tonsillectomy Additional Past Surgical History / Comment(s): PCI with stent 2009 & 2018, low back surgery, total R shoulder and total R knee arthroplasties, bilateral hand trigger finger surgeries, EGD, colonoscopy, L eye laser eye surgery for bleed, thyroidectomy.lt tib fib fx-plate and screws. lt arm Dialysis fistula Past Anesthesia/Blood Transfusion Reactions: Unable to Obtain Additional Past Anesthesia/Blood Transfusion Reaction / Comment(s): . Date of Last Stent Placement:: 2017 Past Psychological History: Anxiety, Depression Additional Psychological History / Comment(s): . Smoking Status: Never smoker Past Alcohol Use History: None Reported Past Drug Use History: None Reported - Past Family History Mother Family Medical History: Asthma, CVA/TIA, Seizure Disorder Additional Family Medical History / Comment(s): epilepsy Father Family Medical History: COPD, Diabetes Mellitus Additional Family Medical History / Comment(s): many heart problems Medications and Allergies Home Medications Medication Instructions Recorded Confirmed Type Levothyroxine Sodium [Synthroid] 175 mcg PO DAILY@0600 11/21/17 10/30/22 History Montelukast [Singulair] 10 mg PO HS@2100 11/21/17 10/30/22 History Atorvastatin [Lipitor] 40 mg PO HS@2100 09/08/20 10/30/22 History Cholecalciferol [Vitamin D3 (25 50 mcg PO DAILY@17012/09/20 10/30/22 History Mcg = 1000 Iu)] Acetaminophen Tab [Tylenol] 650 mg PO Q4H PRN 11/04/21 10/30/22 History Aspirin EC [Ecotrin Low Dose] 81 mg PO DAILY@169911/04/21 10/30/22 History Budesonide [Pulmicort] 0.5 mg INHALATION RT-BID@0700,1700 11/04/21 10/30/22 History Clopidogrel [Plavix] 75 mg PO DAILY@0800 11/04/21 10/30/22 History DULoxetine HCL [Cymbalta] 60 mg PO DAILY@0800 02/08/22 10/30/22 History Fluticasone Propionate 110 Mcg 2 puff INHALATION RT-BID PRN 02/08/22 10/30/22 History [Flovent 110 Mcg Inhaler] Insulin Degludec [Tresiba] 20 units SQ HS@2130 02/08/22 10/30/22 History Isosorbide Mononitrate ER [Imdur] 30 mg PO BID@0800,1700 02/08/22 10/30/22 History Ondansetron [Zofran] 4 mg PO BID PRN 02/08/22 10/30/22 History Baclofen 5 mg PO Q8H PRN 04/12/22 10/30/22 History Calcium Acetate [PhosLo] 667 mg PO TUTHSA@1400 04/12/22 10/30/22 History Docusate [Colace] 100 mg PO BID@0800,1700 04/12/22 10/30/22 History Vitamin E Lotion 1 applic TOPICAL BID@0800,1700 04/12/22 10/30/22 History Furosemide [Lasix] 60 mg PO BID@0800,1700 08/06/22 10/30/22 History INSULIN LISPRO (HumaLOG) [humaLOG] See Protocol SQ ACHS 08/06/22 10/30/22 History carvediloL [Coreg] 12.5 mg PO SUMOWEFR@0800 08/06/22 10/30/22 History HYDROcodone/APAP 5-325MG [[place] 1 tab PO Q8H PRN #4 tab 08/10/22 10/30/22 Rx 5-325] Gabapentin [Neurontin] 100 mg PO BID@0800,2100 09/28/22 10/30/22 History Ipratropium-Albuterol Nebulize 3 ml INHALATION RT-Q6H PRN 09/28/22 10/30/22 History [Duoneb 0.5 mg-3 mg/3 ml Soln] Liquacel Protein Supplement 30 ml PO BID@0800,1700 09/28/22 10/30/22 History Loperamide [Imodium] 2 mg PO QID PRN 09/28/22 10/30/22 History allopurinoL [Zyloprim] 100 mg PO DAILY@0800 09/28/22 10/30/22 History lisinopriL [Zestril] 5 mg PO SUMOWEFR@0800 09/28/22 10/30/22 History Calcium Acetate [Phoslo] 667 mg PO BID@0800,1800 10/30/22 10/30/22 History Calcium Acetate [Phoslo] 667 mg PO SUMOWEFR@1200 10/30/22 10/30/22 History Famotidine [Pepcid] 10 mg PO DAILY@0800 10/30/22 10/30/22 History Hydrocortisone Cream 1 applic TOPICAL BID PRN 10/30/22 10/30/22 History [Hydrocortisone 1% Cream] Interdry 10 1 applic TOPICAL BID@0800,2100 10/30/22 History Midodrine HCl 5 mg PO TUTHSA 10/30/22 10/30/22 History Renal Multivitamin Formula Tab 1 tab PO DAILY@1700 10/30/22 10/30/22 History bisacodyL [Dulcolax] 10 mg RECTAL DAILY PRN 10/30/22 10/30/22 History carvediloL [Coreg] 12.5 mg PO DAILY@1700 10/30/22 10/30/22 History guaiFENesin SYRUP 100MG/5ML 200 mg PO Q4H PRN 10/30/22 10/30/22 History [Robitussin] lisinopriL [Zestril] 5 mg PO DAILY@1700 10/30/22 10/30/22 History Allergies Allergy/AdvReac Type Severity Reaction Status Date / Time No Known Allergies Allergy Verified 10/30/22 20:16 Physical Exam Vitals: Vital Signs Temp Pulse Pulse Resp BP BP Pulse Ox 10/31/22 08:00 98.2 F 74 18 139/74 97 10/31/22 04:00 97.7 F 68 19 139/71 98 10/31/22 00:00 97.9 F 72 19 149/66 98 10/30/22 22:57 78 16 99 10/30/22 20:00 73 15 121/68 98 10/30/22 19:33 72 98 10/30/22 16:39 98.7 F 73 16 99/39 94 L Intake and Output 10/30/22 10/31/22 10/31/22 22:59 06:59 14:59 Other: Weight 112.491 kg 112.491 kg Patient is awake, comfortable, no acute distress Examination of the heart S1 and S2 Examination of the lungs bilateral breath sounds are heard Abdomen is soft nontender Examination of the lower extremities shows trace edema RADIO TELEVISION TECHNICAL DIRECTOR exam grossly intact Results - Lab Results Most recent lab results Calcium 8.5 mg/dL (8.4-10.2) 10/31/22 07:59 Phosphorus 6.3 mg/dL (2.5-4.5) H 10/31/22 07:59 Magnesium 2.2 mg/dL (1.6-2.3) 10/31/22 07:59 10/31/22 07:59 10/31/22 07:59 Assessment and Plan Assessment: 1. End-stage renal disease on hemodialysis on a Saturday schedule 2. Malfunctioning PermCath status post TPA currently functioning and maintained on dialysis 3. CK D mineral bone disorder 4. Hypertension with CK D, blood pressure runs on the lower side during treatment and patient needs midodrine on hemodialysis Plan: Hemodialysis today. Patient can be discharged post dialysis as her catheter is functioning. She will follow-up as outpatient with vascular surgery for placement of AV fistula on 11/15/2022 Use midodrine for low blood pressure and ultrafiltration.
--- NOTE | 2022-10-31 11:35 | P.GSCN ---
History of Present Illness Consult date: 10/31/22 Reason for Consult: Malfunctioning tunneled catheter Requesting physician: Kyler Lorenzo History of present illness: This pleasant 67-year-old female with multiple comorbidities including asthma, coronary artery disease heart failure, COPD, diabetes mellitus, hyperlipidemia, hypertension, [place], pulmonary embolism, end-stage renal disease on hemodialysis, thyroid disorder, sleep apnea, and rheumatoid arthritis who was sent in to the emergency department after failure to get dialysis today due to nonfunctioning tunneled catheter. Patient is known to Dr. Roper. She had a creation of left radiocephalic fistula with Dr. Roper and replacement of right internal jugular tunneled dialysis catheter on 02/09/2022. AV fistula was not functioning well and number charge and so she underwent a fistulogram with balloon angioplasty of the radial artery to cephalic vein anastomosis. Patient states still they were having difficulty with accessing due to size of fistula. She gets hemodialysis on Saturdays. Her last full dialysis treatment was on Saturday. Yesterday she went to outpatient dialysis and they were unable to do get blood from a right IJ. She states that they put alteplase and that but still were not able to access. She was sent in for further evaluation. She denies any pain, redness, or drainage at the site of tunneled catheter, no pain at fistula site. Denies any shortness of breath, chest pain, abdominal pain, nausea or vomiting. States nobody has tried to access her fistula for 3 months. She states she is supposed to have a loop graft placed with Dr. Roper on . Labs WBC 5.6 hemoglobin 11.7 platelet count 131,000 INR 0.9 sodium 136 potassium 4.5 BUN 57 creatinine 5.8, calcium 8.5 phosphorus 6.3 Review of Systems A 14 point review systems was completed all pertinent positives and negatives as stated in the HPI. Past Medical History Past Medical History: Asthma, Coronary Artery Disease (CAD), Cancer, Heart Failure, COPD, Diabetes Mellitus, GI Bleed, Hyperlipidemia, Hypertension, Myocardial Infarction ([place]), Osteoarthritis (OA), Pulmonary Embolus ([place]), Renal Disease, Rheumatoid Arthritis (RA), Sleep Apnea/CPAP/BIPAP, Syncope, Thyroid Disorder Additional Past Medical History / Comment(s): IDDM type II ,uses cpap ., periph eral neuropathy bilateral hands/feet, CKD , UTIs, legally blind bilaterally-sees minimally, thyroid cancer with surgery, goiter, hashimotos, diverticular disease, 2013 upper and lower GI bleeds with blood loss anemia, gout, R humeral fracture with surgery., hx falls., hx left ankle fxs., Hemodialysis saturday//saturdays at [facility] in [place]., pt has chest port. , left forearm fistula., hospitalized at [facility] 09/26/22 to 09/27/22 for change in mental status / loss of coordination. hx updated with nurse Felisa Benito nurse bank sales and service manager at [facility]., friend Shirley states patient can stand to transfer but uses wheelchair mostly. Last Myocardial Infarction Date:: 2009 History of Any Multi-Drug Resistant Organisms: VRE Year Discovered:: 01/17/22 MDRO Source:: Urine Past Surgical History: Adenoidectomy, Back Surgery, Cholecystectomy, Heart Catheterization With Stent, Tonsillectomy Additional Past Surgical History / Comment(s): PCI with stent 2009 & 2018, low back surgery, total R shoulder and total R knee arthroplasties, bilateral hand trigger finger surgeries, EGD, colonoscopy, L eye laser eye surgery for bleed, thyroidectomy.lt tib fib fx-plate and screws. lt arm Dialysis fistula Past Anesthesia/Blood Transfusion Reactions: Unable to Obtain Additional Past Anesthesia/Blood Transfusion Reaction / Comm: . Date of Last Stent Placement:: 2017 Past Psychological History: Anxiety, Depression Additional Psychological History / Comment(s): . Smoking Status: Never smoker Past Alcohol Use History: None Reported Past Drug Use History: None Reported - Past Family History Mother Family Medical History: Asthma, CVA/TIA, Seizure Disorder Additional Family Medical History / Comment(s): epilepsy Father Family Medical History: COPD, Diabetes Mellitus Additional Family Medical History / Comment(s): many heart problems Medications and Allergies Home Medications Medication Instructions Recorded Confirmed Type Levothyroxine Sodium [Synthroid] 175 mcg PO DAILY@0600 11/21/17 10/30/22 History Montelukast [Singulair] 10 mg PO HS@2100 11/21/17 10/30/22 History Atorvastatin [Lipitor] 40 mg PO HS@2100 09/08/20 10/30/22 History Cholecalciferol [Vitamin D3 (25 50 mcg PO DAILY@1700 12/09/20 10/30/22 History Mcg = 1000 Iu)] Acetaminophen Tab [Tylenol] 650 mg PO Q4H PRN 11/04/21 10/30/22 History Aspirin EC [Ecotrin Low Dose] 81 mg PO DAILY@169911/04/21 10/30/22 History Budesonide [Pulmicort] 0.5 mg INHALATION RT-BID@0700,17011/04/21 10/30/22 History Clopidogrel [Plavix] 75 mg PO DAILY@0811/04/21 10/30/22 History DULoxetine HCL [Cymbalta] 60 mg PO DAILY@0802/08/22 10/30/22 History Fluticasone Propionate 110 Mcg 2 puff INHALATION RT-BID PRN 02/08/22 10/30/22 History [Flovent 110 Mcg Inhaler] Insulin Degludec [Tresiba] 20 units SQ HS@2130 02/08/22 10/30/22 History Isosorbide Mononitrate ER [Imdur] 30 mg PO BID@0800,1700 02/08/22 10/30/22 History Ondansetron [Zofran] 4 mg PO BID PRN 02/08/22 10/30/22 History Baclofen 5 mg PO Q8H PRN 04/12/22 10/30/22 History Calcium Acetate [PhosLo] 667 mg PO TUTHSA@1400 04/12/22 10/30/22 History Docusate [Colace] 100 mg PO BID@0800,1700 04/12/22 10/30/22 History Vitamin E Lotion 1 applic TOPICAL BID@0800,1700 04/12/22 10/30/22 History Furosemide [Lasix] 60 mg PO BID@0800,1700 08/06/22 10/30/22 History INSULIN LISPRO (HumaLOG) [humaLOG] See Protocol SQ ACHS 08/06/22 10/30/22 History carvediloL [Coreg] 12.5 mg PO SUMOWEFR@0800 08/06/22 10/30/22 History HYDROcodone/APAP 5-325MG [[place] 1 tab PO Q8H PRN #4 tab 08/10/22 10/30/22 Rx 5-325] Gabapentin [Neurontin] 100 mg PO BID@0800,2100 09/28/22 10/30/22 History Ipratropium-Albuterol Nebulize 3 ml INHALATION RT-Q6H PRN 09/28/22 10/30/22 History [Duoneb 0.5 mg-3 mg/3 ml Soln] Liquacel Protein Supplement 30 ml PO BID@0800,1700 09/28/22 10/30/22 History Loperamide [Imodium] 2 mg PO QID PRN 09/28/22 10/30/22 History allopurinoL [Zyloprim] 100 mg PO DAILY@0800 09/28/22 10/30/22 History lisinopriL [Zestril] 5 mg PO SUMOWEFR@0800 09/28/22 10/30/22 History Calcium Acetate [Phoslo] 667 mg PO BID@0800,1800 10/30/22 10/30/22 History Calcium Acetate [Phoslo] 667 mg PO SUMOWEFR@1200 10/30/22 10/30/22 History Famotidine [Pepcid] 10 mg PO DAILY@0800 10/30/22 10/30/22 History Hydrocortisone Cream 1 applic TOPICAL BID PRN 10/30/22 10/30/22 History [Hydrocortisone 1% Cream] Interdry 10 1 applic TOPICAL BID@0800,2100 10/30/22 History Midodrine HCl 5 mg PO TUTHSA 10/30/22 10/30/22 History Renal Multivitamin Formula Tab 1 tab PO DAILY@1700 10/30/22 10/30/22 History bisacodyL [Dulcolax] 10 mg RECTAL DAILY PRN 10/30/22 10/30/22 History carvediloL [Coreg] 12.5 mg PO DAILY@1700 10/30/22 10/30/22 History guaiFENesin SYRUP 100MG/5ML 200 mg PO Q4H PRN 10/30/22 10/30/22 History [Robitussin] lisinopriL [Zestril] 5 mg PO DAILY@1700 10/30/22 10/30/22 History Allergies Allergy/AdvReac Type Severity Reaction Status Date / Time No Known Allergies Allergy Verified 10/30/22 20:16 Surgical - Exam Vital Signs Temp Pulse Resp BP Pulse Ox 98.7 F 73 16 99/39 94 L 10/30/22 16:39 10/30/22 16:39 10/30/22 16:39 10/30/22 16:39 10/30/22 16:39 General appearance: The patient is alert, oriented, appears in no acute distress. HET: Head is normocephalic and atraumatic. Pupils are equal and reactive. Neck: Supple without lymphadenopathy. Trachea midline. Heart: Regular. Lungs: Equal expansion, normal respiratory effort. Abdomen: Soft, nontender, nondistended. Extremities: Normal skin color and turgor. No cyanosis, rash, ulceration, clubbing, or edema. Bilateral radial pulses +2. Left cephalic fistula with palpable thrill and audible bruit. Neurological: No focal deficits. Strength and sensation are grossly intact. Results - Labs 10/31/22 07:59 10/31/22 07:59 Abnormal Lab Results - Last 24 Hours (Table) 10/30/22 10/30/22 10/30/22 Range/Units 18:32 18:32 18:32 RBC 3.63 L (3.80-5.40) m/uL Hgb 10.8 L (11.4-16.0) gm/dL MCHC 30.3 L (31.0-37.0) g/dL Plt Count 149 L (150-450) k/uL D-Dimer 2.82 H (<0.60) mg/L FEU Sodium 135 L (137-145) mmol/L Chloride 94 L (98-107) mmol/L BUN 52 H (7-17) mg/dL Creatinine 5.86 H (0.52-1.04) mg/dL Glucose 179 H (74-99) mg/dL POC Glucose (mg/dL) (70-110) mg/dL Calcium 8.3 L (8.4-10.2) mg/dL Phosphorus 5.7 H (2.5-4.5) mg/dL Albumin 3.2 L (3.5-5.0) g/dL 10/31/22 10/31/22 Range/Units 05:57 07:59 RBC (3.80-5.40) m/uL Hgb (11.4-16.0) gm/dL MCHC (31.0-37.0) g/dL Plt Count 131 L (150-450) k/uL D-Dimer (<0.60) mg/L FEU Sodium (137-145) mmol/L Chloride (98-107) mmol/L BUN (7-17) mg/dL Creatinine (0.52-1.04) mg/dL Glucose (74-99) mg/dL POC Glucose (mg/dL) 157 H (70-110) mg/dL Calcium (8.4-10.2) mg/dL Phosphorus (2.5-4.5) mg/dL Albumin (3.5-5.0) g/dL Diabetes panel 10/30/22 Range/Units 18:32 Sodium 135 L (137-145) mmol/L Potassium 4.8 (3.5-5.1) mmol/L Chloride 94 L (98-107) mmol/L Carbon Dioxide 30 (22-30) mmol/L BUN 52 H (7-17) mg/dL Creatinine 5.86 H (0.52-1.04) mg/dL Glucose 179 H (74-99) mg/dL Calcium 8.3 L (8.4-10.2) mg/dL AST 27 (14-36) U/L ALT 18 (4-34) U/L Alkaline Phosphatase 72 (38-126) U/L Total Protein 6.5 (6.3-8.2) g/dL Albumin 3.2 L (3.5-5.0) g/dL Calcium panel 10/30/22 Range/Units 18:32 Calcium 8.3 L (8.4-10.2) mg/dL Phosphorus 5.7 H (2.5-4.5) mg/dL Albumin 3.2 L (3.5-5.0) g/dL Pituitary panel 10/30/22 Range/Units 18:32 Sodium 135 L (137-145) mmol/L Potassium 4.8 (3.5-5.1) mmol/L Chloride 94 L (98-107) mmol/L Carbon Dioxide 30 (22-30) mmol/L BUN 52 H (7-17) mg/dL Creatinine 5.86 H (0.52-1.04) mg/dL Glucose 179 H (74-99) mg/dL Calcium 8.3 L (8.4-10.2) mg/dL Adrenal panel 10/30/22 Range/Units 18:32 Sodium 135 L (137-145) mmol/L Potassium 4.8 (3.5-5.1) mmol/L Chloride 94 L (98-107) mmol/L Carbon Dioxide 30 (22-30) mmol/L BUN 52 H (7-17) mg/dL Creatinine 5.86 H (0.52-1.04) mg/dL Glucose 179 H (74-99) mg/dL Calcium 8.3 L (8.4-10.2) mg/dL Total Bilirubin 0.5 (0.2-1.3) mg/dL AST 27 (14-36) U/L ALT 18 (4-34) U/L Alkaline Phosphatase 72 (38-126) U/L Total Protein 6.5 (6.3-8.2) g/dL Albumin 3.2 L (3.5-5.0) g/dL Assessment and Plan Assessment: 1. Malfunctioning right IJ tunneled catheter 2. Malfunctioning left brachiocephalic AV fistula 3. End-stage renal disease on hemodialysis, Saturday schedule 4. Coronary artery disease on Plavix Plan: 1. Stat chest x-ray ordered 2. Keep nothing by mouth 3. Attempt hemodialysis per right IJ tunnel catheter as ordered by nephrology 4 . If unable to access, administer alteplase per HD catheter 5. Further recommendations forthcoming based on patient's clinical course. Thank you for this consultation, we will continue to follow. The impression and plan of care has been dictated as directed. I performed a history and examination of this patient, discussed the same with the dictator. I agree with the dictator's note ,documented as a scribe. Any additional findings or plans will be noted.
[2022-10-31 11:51] LABS: Glucose,Whole Blood 118 mg/dL (70-110)
--- NOTE | 2022-10-31 14:02 | HP ---
HISTORY AND PHYSICAL Combined History and Physical and Discharge Summary CHIEF COMPLAINT: Dialysis access malfunction. HISTORY OF PRESENT ILLNESS: This is a 67-year-old woman with a past medical history of chronic kidney disease, receiving hemodialysis, did not have dialysis because of AV fistula malfunctioning. The patient previously had angioplasty. The patient also had tPA yesterday. The nuclear engineering technician is able to access the patient today and the hemodialysis being continued at this time. There is no history of any fever, rigors, or chills. PAST MEDICAL HISTORY: Reviewed, chronic renal failure on hemodialysis, rest of the history and rest of the chart is also reviewed. HOME MEDICATIONS: Reviewed include Zofran, dose and rest of medications reviewed. ALLERGIES: None. FAMILY HISTORY: History of CVA, TIA, asthma, rest of the history reviewed. SOCIAL HISTORY: No history of smoking or alcohol. REVIEW OF SYSTEMS: A 14-point review is negative except as mentioned earlier. PHYSICAL EXAMINATION: VITAL SIGNS: Pulse is 68, blood pressure 130/97, respirations 19. HEENT: Conjunctivae normal. NECK: No jugular venous distention. CARDIOVASCULAR: S1, S2 muffled. RESPIRATIONS: Diminished at the bases, a few scattered rhonchi. ABDOMEN: Soft, nontender. LEGS: No edema, no swelling. NERVOUS SYSTEM: No focal deficit. LABORATORY DATA: Creatinine 5.82. ASSESSMENT: 1. Malfunction of dialysis catheter. 2. Chronic renal failure, end-stage renal disease, on hemodialysis. 3. Coronary artery disease. 4. Chronic obstructive pulmonary disease. 5. Diabetes mellitus, type 2. 6. Multiple medical issues. RECOMMENDATIONS AND DISCUSSION: This 67-year-old woman presented after dialysis malfunction, has improved probably after tPA. The patient had previous troubles with AV graft. Currently, the patient improved significantly. Vascular surgery and Nephrology saw the patient. The patient is able to continue the hemodialysis. The patient will be discharged with further recommendations to follow up with primary physician and multiple consultants as well as continue the home medications. See medication reconciliation sheet for list of medications. MMODL / IJN: [id number] /
[2022-10-31 14:24] VITALS: BP 156/69
[2022-10-31 14:45] VITALS: PULSE 101; RESP 16; TEMP 97
--- NOTE | 2022-11-01 06:30 | P.DS ---
Providers Date of admission: 10/30/22 21:17 Expected date of discharge: 10/31/22 Attending physician: Shazia Shah Consults: 10/30/22 21:17 Consult Physician Routine Consulting Provider: Shara Roper Consult Reason/Comments: known Do you want consulting provider notified?: Yes Consult Physician Routine Consulting Provider: Merary Spencer Consult Reason/Comments: known Do you want consulting provider notified?: Yes Primary care physician: [facility] Course: Final diagnosis Dialysis catheter malfunction, improved status post TPA Chronic renal failure, end-stage renal disease on hemodialysis History of coronary disease Chronic obstruction pulmonary disease, not in exacerbation Diabetes mellitus, type II Morbid obesity with a BMI of 43.9 Full code Discharge disposition Patient is being discharged in a stable condition with guarded prognosis to home. Patient will follow-up with Dr. East in the outpatient setting upon discharge. Patient is to continue with hemodialysis as scheduled. Patient has follow-up appointment with vascular surgery on November 15 for dialysis catheter. Total time taken is greater than 35 minutes. Hospital course This is a 67-year-old female who was recently admitted after going to dialysis and unable to access the port as it was not functioning. Apparently per patient and teletype technician at bedside, TPA was administered and a clot extracted at the dialysis center yesterday. Dialysis site was accessed with no difficulties and patient is receiving hemodialysis with ultrafiltration today. Patient was evaluated by vascular surgery along with nephrology and cleared once dialysis is complete. Patient does have outpatient follow-up with Dr. Roper for surgical intervention. Please refer to the consultation notes for further HPI. Currently no reports of chest pain, shortness of breath, or palpitations. Patient is afebrile. No reports of nausea or vomiting and patient is tolerating diet. Patient will be discharged home today. Physical exam: Gen: This is a 67-year-old female who is awake, alert and oriented 3, well- developed, well-nourished, morbidly obese HEENT: Head is atraumatic, normocephalic. Pupils equal, round. Sclerae is anicteric. NECK: Supple. No JVD. No lymphadenopathy. No thyromegaly. LUNGS: Clear to auscultation. No wheezes or rhonchi. No intercostal retractions. HEART: Regular rate and rhythm. No murmur. ABDOMEN: Soft. Bowel sounds are present. No masses. No tenderness. EXTREMITIES: No pedal edema. No calf tenderness. NEUROLOGICAL: Patient is awake, alert and oriented x3. Cranial nerves 2 through 12 are grossly intact. Please refer to medication reconciliation sheet for a list of medications. The impression and plan of care has been dictated by Tamia Li, Nurse Practitioner as directed. Dr. Pablo MD I have performed a history and examination and MDM of this patient, discussed the same with the dictator, and agree with the dictator's assessment and plan as written ,documented as a scribe. Based on total visit time, I have performed more than 50% of the visit. Patient Condition at Discharge: Fair Plan - Discharge Summary Discharge Rx Participant: No New Discharge Prescriptions: Continue Montelukast [Singulair] 10 mg PO HS@2100 Levothyroxine Sodium [Synthroid] 175 mcg PO DAILY@0600 Atorvastatin [Lipitor] 40 mg PO HS@2100 Cholecalciferol [Vitamin D3 (25 Mcg = 1000 Iu)] 50 mcg PO DAILY@1700 Acetaminophen Tab [Tylenol] 650 mg PO Q4H PRN PRN Reason: Fever And/ Or Pain Aspirin EC [Ecotrin Low Dose] 81 mg PO DAILY@1700 Budesonide [Pulmicort] 0.5 mg INHALATION RT-BID@0700,1700 Clopidogrel [Plavix] 75 mg PO DAILY@0800 Ondansetron [Zofran] 4 mg PO BID PRN PRN Reason: Nausea Isosorbide Mononitrate ER [Imdur] 30 mg PO BID@0800,1700 Fluticasone Propionate 110 Mcg [Flovent 110 Mcg Inhaler] 2 puff INHALATION RT-BID PRN PRN Reason: Shortness Of Breath Docusate [Colace] 100 mg PO BID@0800,1700 allopurinoL [Zyloprim] 100 mg PO DAILY@0800 Gabapentin [Neurontin] 100 mg PO BID@0800,2100 Loperamide [Imodium] 2 mg PO QID PRN PRN Reason: Diarrhea guaiFENesin SYRUP 100MG/5ML [Robitussin] 200 mg PO Q4H PRN PRN Reason: Cough Calcium Acetate [PhosLo] 667 mg PO BID@0800,1800 carvediloL [Coreg] 12.5 mg PO DAILY@1700 Insulin Degludec [Tresiba] 20 units SQ HS@2130 DULoxetine HCL [Cymbalta] 60 mg PO DAILY@0800 Vitamin E Lotion 1 applic TOPICAL BID@0800,1700 Calcium Acetate [PhosLo] 667 mg PO TUTHSA@1400 Baclofen 5 mg PO Q8H PRN PRN Reason: MUSCLE SPASMS INSULIN LISPRO (HumaLOG) [humaLOG] See Protocol SQ ACHS Furosemide [Lasix] 60 mg PO BID@0800,1700 carvediloL [Coreg] 12.5 mg PO SUMOWEFR@0800 HYDROcodone/APAP 5-325MG [[place] 5-325] 1 tab PO Q8H PRN #4 tab PRN Reason: Pain lisinopriL [Zestril] 5 mg PO SUMOWEFR@0800 Ipratropium-Albuterol Nebulize [Duoneb 0.5 mg-3 mg/3 ml Soln] 3 ml INHALATION RT-Q6H PRN PRN Reason: Shortness Of Breath Liquacel Protein Supplement 30 ml PO BID@0800,1700 Hydrocortisone Cream [Hydrocortisone 1% Cream] 1 applic TOPICAL BID PRN PRN Reason: Rash bisacodyL [Dulcolax] 10 mg RECTAL DAILY PRN PRN Reason: Constipation Renal Multivitamin Formula Tab 1 tab PO DAILY@1700 Calcium Acetate [PhosLo] 667 mg PO SUMOWEFR@1200 Midodrine HCl 5 mg PO TUTHSA lisinopriL [Zestril] 5 mg PO DAILY@1700 Famotidine [Pepcid] 10 mg PO DAILY@0800 Interdry 10 1 applic TOPICAL BID@799,2099 Discharge Medication List Levothyroxine Sodium [Synthroid] 175 mcg PO DAILY@0611/21/17 [History] Montelukast [Singulair] 10 mg PO HS@209911/21/17 [History] Atorvastatin [Lipitor] 40 mg PO HS@209909/08/20 [History] Cholecalciferol [Vitamin D3 (25 Mcg = 1000 Iu)] 50 mcg PO DAILY@169912/09/20 [History] Acetaminophen Tab [Tylenol] 650 mg PO Q4H PRN 11/04/21 [History] Aspirin EC [Ecotrin Low Dose] 81 mg PO DAILY@169911/04/21 [History] Budesonide [Pulmicort] 0.5 mg INHALATION RT-BID@0700,1700 11/04/21 [History] Clopidogrel [Plavix] 75 mg PO DAILY@0800 11/04/21 [History] DULoxetine HCL [Cymbalta] 60 mg PO DAILY@0800 02/08/22 [History] Fluticasone Propionate 110 Mcg [Flovent 110 Mcg Inhaler] 2 puff INHALATION RT- BID PRN 02/08/22 [History] Insulin Degludec [Tresiba] 20 units SQ HS@2130 02/08/22 [History] Isosorbide Mononitrate ER [Imdur] 30 mg PO BID@0800,1700 02/08/22 [History] Ondansetron [Zofran] 4 mg PO BID PRN 02/08/22 [History] Baclofen 5 mg PO Q8H PRN 04/12/22 [History] Calcium Acetate [PhosLo] 667 mg PO TUTHSA@1400 04/12/22 [History] Docusate [Colace] 100 mg PO BID@0800,1700 04/12/22 [History] Vitamin E Lotion 1 applic TOPICAL BID@0800,1700 04/12/22 [History] Furosemide [Lasix] 60 mg PO BID@0800,1700 08/06/22 [History] INSULIN LISPRO (HumaLOG) [humaLOG] See Protocol SQ ACHS 08/06/22 [History] carvediloL [Coreg] 12.5 mg PO SUMOWEFR@0800 08/06/22 [History] HYDROcodone/APAP 5-325MG [[place] 5-325] 1 tab PO Q8H PRN #4 tab 08/10/22 [Rx] Gabapentin [Neurontin] 100 mg PO BID@0800,2100 09/28/22 [History] Ipratropium-Albuterol Nebulize [Duoneb 0.5 mg-3 mg/3 ml Soln] 3 ml INHALATION RT-Q6H PRN 09/28/22 [History] Liquacel Protein Supplement 30 ml PO BID@0800,1700 09/28/22 [History] Loperamide [Imodium] 2 mg PO QID PRN 09/28/22 [History] allopurinoL [Zyloprim] 100 mg PO DAILY@0800 09/28/22 [History] lisinopriL [Zestril] 5 mg PO SUMOWEFR@0800 09/28/22 [History] Calcium Acetate [PhosLo] 667 mg PO BID@0800,1800 10/30/22 [History] Calcium Acetate [PhosLo] 667 mg PO SUMOWEFR@1200 10/30/22 [History] Famotidine [Pepcid] 10 mg PO DAILY@0800 10/30/22 [History] Hydrocortisone Cream [Hydrocortisone 1% Cream] 1 applic TOPICAL BID PRN 10/30/22 [History] Interdry 10 1 applic TOPICAL BID@0800,2100 10/30/22 [History] Midodrine HCl 5 mg PO TUTHSA 10/30/22 [History] Renal Multivitamin Formula Tab 1 tab PO DAILY@169910/30/22 [History] bisacodyL [Dulcolax] 10 mg RECTAL DAILY PRN 10/30/22 [History] carvediloL [Coreg] 12.5 mg PO DAILY@169910/30/22 [History] guaiFENesin SYRUP 100MG/5ML [Robitussin] 200 mg PO Q4H PRN 10/30/22 [History] lisinopriL [Zestril] 5 mg PO DAILY@169910/30/22 [History] Follow up Appointment(s)/Referral(s): Merary Spencer MD [STAFF PHYSICIAN] - 1 Week Cristiano East MD [Primary Care Provider] - 1-2 days Shara Roper DO [STAFF PHYSICIAN] - 11/15/22 (Patient has outpatient scheduled appointment end of October) Activity/Diet/Wound Care/Special Instructions: Activity Limited until follow-up Follow-up with nephrology outpatient Keep your vascular surgery appointment with Dr. Roper at the end of October outpatient Continue hemodialysis Discharge Disposition: HOME SELF-CARE
== END 2022-10-31 15:31 | disposition home or self-care (01) ==
LOC: EC 16:30 → 3SCARD 21:17 → INTOOBSV 21:17 → 3SCARD 21:58
PROVIDERS: ADMIT Hospitalist; ATTEND Hospitalist
DX: T82.510A Breakdown (mechanical) of surgically created arteriovenous fistula, initial encounter (principal); N17.9 Acute kidney failure, unspecified; I13.2 Hypertensive heart and chronic kidney disease with heart failure and with stage 5 chronic kidney disease, or end stage renal disease; N18.6 End stage renal disease; E11.22 Type 2 diabetes mellitus with diabetic chronic kidney disease; J44.9 Chronic obstructive pulmonary disease, unspecified; I25.10 Atherosclerotic heart disease of native coronary artery without angina pectoris; I50.9 Heart failure, unspecified; E78.5 Hyperlipidemia, unspecified; M06.9 Rheumatoid arthritis, unspecified; G47.30 Sleep apnea, unspecified; H54.8 Legal blindness, as defined in USA; E89.0 Postprocedural hypothyroidism; M10.9 Gout, unspecified; E11.42 Type 2 diabetes mellitus with diabetic polyneuropathy; I25.2 Old myocardial infarction; E66.01 Morbid (severe) obesity due to excess calories; F41.9 Anxiety disorder, unspecified; I70.0 Atherosclerosis of aorta; M85.811 Other specified disorders of bone density and structure, right shoulder; F32.A Depression, unspecified; N18.9 Chronic kidney disease, unspecified; Z90.49 Acquired absence of other specified parts of digestive tract; Z85.850 Personal history of malignant neoplasm of thyroid; Z79.4 Long term (current) use of insulin; Z79.890 Hormone replacement therapy; Z79.899 Other long term (current) drug therapy; Z79.82 Long term (current) use of aspirin; Z79.02 Long term (current) use of antithrombotics/antiplatelets; Z95.5 Presence of coronary angioplasty implant and graft; Z82.5 Family history of asthma and other chronic lower respiratory diseases; Z82.3 Family history of stroke; Z82.0 Family history of epilepsy and other diseases of the nervous system; Z68.41 Body mass index [BMI] 40.0-44.9, adult; Z83.3 Family history of diabetes mellitus; Z99.2 Dependence on renal dialysis; Z86.711 Personal history of pulmonary embolism; Y71.2 Prosthetic and other implants, materials and accessory cardiovascular devices associated with adverse incidents
CPT/HCPCS: 96374; 99285; 36415; 93005; 85379; 83880; 80053 ×2; 83605; 83735 ×2; 84100 ×2; 84484; 85025 ×2; 85610; 85730; G0378 ×2; J1170; 90935

== ENCOUNTER 2022-11-15 06:52 | Day surgery (SDC) | payer MEDICARE, OTHER ==
[~2022-11-15 06:52] MED LIST changes: +DEXAMETHASONE SOD PHOSPHATE 4 MG/ML 1 ML VIAL IV ONE; +HYDROmorphone 0.5 MG/0.5 ML SYRINGE IVP PRN; +LACTATED RINGERS 1,000 ML IV SCH; +MIDAZOLAM 2 MG/2 ML VIAL IV PRN; +ONDANSETRON 4 MG/2 ML VIAL IVP ONE; -SODIUM CHLORIDE 0.9% 1,000 ML in EMPTY BAG 1 BAG IV ONE
[2022-11-15] MEDS ORDERED: SODIUM CHLORIDE 0.9% 1,000 ML IV ONE (07:27)
[2022-11-15 07:42] VITALS: RESP 16
[2022-11-15 07:46] LABS: Glucose,Whole Blood 155 mg/dL (70-110)
[2022-11-15] MEDS ORDERED: MIDAZOLAM 2 MG/2 ML VIAL IVP ONE (08:37)
[2022-11-15] MEDS ORDERED: LIDOCAINE 2% INJ 20 MG/ML (2 ML VIAL) ONE (09:26)
[2022-11-15] MEDS ORDERED: GLYCOPYRROLATE 0.2 MG/ML 2 ML VIAL ONE (09:26)
[2022-11-15] MEDS ORDERED: PROPOFOL 10 MG/ML 20 ML VIAL IV ONE (09:26)
[2022-11-15] MEDS ORDERED: ROCURONIUM 10 MG/ML (5 ML VIAL) IV ONE (09:26)
[2022-11-15] MEDS ORDERED: HEPARIN SODIUM,PORCINE 10,000 UNIT/ML 1 ML VIAL ONE (09:26)
[2022-11-15] MEDS ORDERED: fentaNYL (PF) 50 MCG/ML 2 ML AMP ONE (09:26)
[2022-11-15] MEDS ORDERED: PHENYLEPHRINE-0.9% NACL SYG 1,000 MCG/10 ML SYRINGE ONE (09:26)
[2022-11-15] MEDS ORDERED: ROPIVACAINE 5 MG/ML 30 ML VIAL ONE (09:26)
[2022-11-15] MEDS ORDERED: NEOSTIGMINE 1 MG/ML 10 ML VIAL ONE (09:26)
[2022-11-15] MEDS ORDERED: ceFAZolin 2 GM in SODIUM CHLORIDE 0.9% 500 ML 500 ML IRRIGATION ONE (09:58)
[2022-11-15] MEDS ORDERED: HEPARIN SODIUM,PORCINE 2,000 UNIT in SODIUM CHLORIDE 0.9% 500 ML 500 ML IRRIGATION ONE (09:58)
--- NOTE | 2022-11-15 10:35 | P.ANPRN ---
Procedure Note - Anesthesia - Nerve Block Performed Left Time Out Performed: Yes (:36) Date of Procedure: 11/15/22 Procedure Start Time: Procedure Stop Time: : Location of Patient: PreOp Indication: Acute Post-Operative Pain, Requested by Surgeon (Dr Roper) Sedation Type: Sedate with meaningful contact maintained Preparation: Sterile Prep Position: Supine Catheter: None Needle Types: Pajunk Needle Gauge: Other (see comment) (22g) Ultrasound used to visualize needle placement: Yes Ultrasound used to observe medication spread: Yes Injectate: 0.5% Ropivacaine (see comment for volume) (20cc) Blood Aspirated: No Pain Paresthesia on Injection Noted: No Resistance on Injection: Normal Image Stored and Saved: Yes Events: Uneventful and Well Tolerated
[2022-11-15 12:19] VITALS: TEMP 97.1
[2022-11-15 12:32] LABS: Glucose,Whole Blood 201 mg/dL (70-110)
[2022-11-15] MEDS ORDERED: INSULIN ASPART (NovoLOG) 100 UNIT/ML VIAL SQ ONE (12:33)
--- NOTE | 2022-11-15 12:33 | P.OP ---
Date of Procedure: 11/15/22 Description of Procedure: Preoperative diagnosis: End-stage renal disease, non-maturing radiocephalic fistula Postoperative diagnosis: Same Procedure: Ligation of radiocephalic fistula Loop forearm AV graft Surgeon: Shara Roper D.O. EBL: 50 mL IV fluids: See records Urine output: Not measured Drains: None Complications: None Condition: Stable to recovery Operative indication and findings: Patient is a 67-year-old female who gets dialysis via a chest wall catheter. She had a radiocephalic fistula that never fully matured therefore she is offered a loop forearm graft as well as ligation of her fistula. She seemingly understands the risks and benefits is willing to proceed Procedure in detail: Patient was taken the operative suite and placed in supine position. The left upper extremity prepped and draped in usual sterile fashion. We proceeded timeout performed, all parties were in agreement. Incision was made at the left wrist overlying the area of pulsation of the fistula. It was carried down through the subcu tissues with electrocautery and the vein was identified. It was doubly ligated with silk suture. Attention was then turned towards the antecubital fossa. A transverse incision was made and this was carried down through subcutaneous tissues with care to avoid the large cephalic and median cubital vein. The dissection was carried further down to the level of brachial artery. It was encircled proximally and distally. It hasn't turned towards the vein, the cephalic vein at the level of the median cubital branch was dissected free proximally and distally encircled with vessel loops. A counter incision was made at the level of the apex of the graft and the graft was tunneled. Patient was heparinized. The arterial vessel loops were drawn toe closed and arteriotomy was performed. An anastomosis created with 6-0 Prolene. Prior to completion of the anastomosis, the artery was flushed. Attention was then turned towards the venous outflow. The graft was cut to size and anastomosis was created after venotomy was performed. Prior to completion of the anastomosis, air was flushed out of the graft. The vessel loops were all opened. There was good multiphasic flow proximal and distally to the anastomosis with a palpable radial pulse as well as good outflow with a good thrill in the upper arm through the cephalic vein. Areas were irrigated and biotics solution. The incisions were closed with interrupted sutures of 3-0 Vicryl and running 4-0 Monocryl in subcuticular fashion. Skin glue and dressings were placed. The patient was transferred back to recovery in stable condition having tolerated the procedure well. Plan - Discharge Summary Discharge Rx Participant: No New Discharge Prescriptions: No Action Montelukast [Singulair] 10 mg PO HS@2100 Levothyroxine Sodium [Synthroid] 175 mcg PO DAILY@0600 Atorvastatin [Lipitor] 40 mg PO HS@2100 Cholecalciferol [Vitamin D3 (25 Mcg = 1000 Iu)] 50 mcg PO DAILY@1700 Acetaminophen Tab [Tylenol] 650 mg PO Q4H PRN PRN Reason: Fever And/ Or Pain Aspirin EC [Ecotrin Low Dose] 81 mg PO DAILY@1700 Budesonide [Pulmicort] 0.5 mg INHALATION RT-BID@0700,1700 Clopidogrel [Plavix] 75 mg PO DAILY@0800 Ondansetron [Zofran] 4 mg PO BID PRN PRN Reason: Nausea Isosorbide Mononitrate ER [Imdur] 30 mg PO BID@0800,1700 Fluticasone Propionate 110 Mcg [Flovent 110 Mcg Inhaler] 2 puff INHALATION RT-BID PRN PRN Reason: Shortness Of Breath Docusate [Colace] 100 mg PO BID@0800,1700 allopurinoL [Zyloprim] 100 mg PO DAILY@0800 Gabapentin [Neurontin] 100 mg PO BID@0800,2100 Loperamide [Imodium] 2 mg PO QID PRN PRN Reason: Diarrhea guaiFENesin SYRUP 100MG/5ML [Robitussin] 200 mg PO Q4H PRN PRN Reason: Cough Calcium Acetate [PhosLo] 667 mg PO BID@0800,1800 carvediloL [Coreg] 12.5 mg PO DAILY@1700 Insulin Degludec [Tresiba] 20 units SQ HS@2130 DULoxetine HCL [Cymbalta] 60 mg PO DAILY@0800 Vitamin E Lotion 1 applic TOPICAL BID@0800,1700 Calcium Acetate [PhosLo] 667 mg PO TUTHSA@1400 Baclofen 5 mg PO Q8H PRN PRN Reason: MUSCLE SPASMS INSULIN LISPRO (HumaLOG) [humaLOG] See Protocol SQ ACHS Furosemide [Lasix] 60 mg PO BID@0800,1700 carvediloL [Coreg] 12.5 mg PO SUMOWEFR@0800 HYDROcodone/APAP 5-325MG [[place] 5-325] 1 tab PO Q8H PRN #4 tab PRN Reason: Pain lisinopriL [Zestril] 5 mg PO SUMOWEFR@0800 Ipratropium-Albuterol Nebulize [Duoneb 0.5 mg-3 mg/3 ml Soln] 3 ml INHALATION RT-Q6H PRN PRN Reason: Shortness Of Breath Liquacel Protein Supplement 30 ml PO BID@0800,1700 Hydrocortisone Cream [Hydrocortisone 1% Cream] 1 applic TOPICAL BID PRN PRN Reason: Rash bisacodyL [Dulcolax] 10 mg RECTAL DAILY PRN PRN Reason: Constipation Renal Multivitamin Formula Tab 1 tab PO DAILY@1700 Calcium Acetate [PhosLo] 667 mg PO SUMOWEFR@1200 Midodrine HCl 5 mg PO TUTHSA lisinopriL [Zestril] 5 mg PO DAILY@1700 Famotidine [Pepcid] 10 mg PO DAILY@0800 Interdry 10 1 applic TOPICAL BID@0800,2100 Discharge Medication List Levothyroxine Sodium [Synthroid] 175 mcg PO DAILY@0611/21/17 [History] Montelukast [Singulair] 10 mg PO HS@209911/21/17 [History] Atorvastatin [Lipitor] 40 mg PO HS@2100 09/08/20 [History] Cholecalciferol [Vitamin D3 (25 Mcg = 1000 Iu)] 50 mcg PO DAILY@169912/09/20 [History] Acetaminophen Tab [Tylenol] 650 mg PO Q4H PRN 11/04/21 [History] Aspirin EC [Ecotrin Low Dose] 81 mg PO DAILY@169911/04/21 [History] Budesonide [Pulmicort] 0.5 mg INHALATION RT-BID@0700,1700 11/04/21 [History] Clopidogrel [Plavix] 75 mg PO DAILY@0811/04/21 [History] DULoxetine HCL [Cymbalta] 60 mg PO DAILY@0800 02/08/22 [History] Fluticasone Propionate 110 Mcg [Flovent 110 Mcg Inhaler] 2 puff INHALATION RT- BID PRN 02/08/22 [History] Insulin Degludec [Tresiba] 20 units SQ HS@2130 02/08/22 [History] Isosorbide Mononitrate ER [Imdur] 30 mg PO BID@0800,1700 02/08/22 [History] Ondansetron [Zofran] 4 mg PO BID PRN 02/08/22 [History] Baclofen 5 mg PO Q8H PRN 04/12/22 [History] Calcium Acetate [PhosLo] 667 mg PO TUTHSA@1400 04/12/22 [History] Docusate [Colace] 100 mg PO BID@0800,1700 04/12/22 [History] Vitamin E Lotion 1 applic TOPICAL BID@0800,1700 04/12/22 [History] Furosemide [Lasix] 60 mg PO BID@0800,1700 08/06/22 [History] INSULIN LISPRO (HumaLOG) [humaLOG] See Protocol SQ ACHS 08/06/22 [History] carvediloL [Coreg] 12.5 mg PO SUMOWEFR@0800 08/06/22 [History] HYDROcodone/APAP 5-325MG [[place] 5-325] 1 tab PO Q8H PRN #4 tab 08/10/22 [Rx] Gabapentin [Neurontin] 100 mg PO BID@0800,2100 09/28/22 [History] Ipratropium-Albuterol Nebulize [Duoneb 0.5 mg-3 mg/3 ml Soln] 3 ml INHALATION RT-Q6H PRN 09/28/22 [History] Liquacel Protein Supplement 30 ml PO BID@0800,1700 09/28/22 [History] Loperamide [Imodium] 2 mg PO QID PRN 09/28/22 [History] allopurinoL [Zyloprim] 100 mg PO DAILY@0800 09/28/22 [History] lisinopriL [Zestril] 5 mg PO SUMOWEFR@0800 09/28/22 [History] Calcium Acetate [PhosLo] 667 mg PO BID@0800,1800 10/30/22 [History] Calcium Acetate [PhosLo] 667 mg PO SUMOWEFR@1200 10/30/22 [History] Famotidine [Pepcid] 10 mg PO DAILY@0800 10/30/22 [History] Hydrocortisone Cream [Hydrocortisone 1% Cream] 1 applic TOPICAL BID PRN 10/30/22 [History] Interdry 10 1 applic TOPICAL BID@0800,2100 10/30/22 [History] Midodrine HCl 5 mg PO TUTHSA 10/30/22 [History] Renal Multivitamin Formula Tab 1 tab PO DAILY@1700 10/30/22 [History] bisacodyL [Dulcolax] 10 mg RECTAL DAILY PRN 10/30/22 [History] carvediloL [Coreg] 12.5 mg PO DAILY@1700 10/30/22 [History] guaiFENesin SYRUP 100MG/5ML [Robitussin] 200 mg PO Q4H PRN 10/30/22 [History] lisinopriL [Zestril] 5 mg PO DAILY@17010/30/22 [History] Follow up Appointment(s)/Referral(s): Shara Roper DO [STAFF PHYSICIAN] - 1 Week Activity/Diet/Wound Care/Special Instructions: Resume regular bathing as previous. Resume home medications. Resume home activity. Discharge Disposition: TRANSFER TO SNF/ECF
[2022-11-15 13:37] VITALS: BP 124/53; PULSE 85
== END 2022-11-15 14:06 ==
LOC: OR 06:52
PROVIDERS: ATTEND Surgery
DX: N18.6 End stage renal disease (principal); I13.2 Hypertensive heart and chronic kidney disease with heart failure and with stage 5 chronic kidney disease, or end stage renal disease; I50.9 Heart failure, unspecified; Z99.2 Dependence on renal dialysis; E11.22 Type 2 diabetes mellitus with diabetic chronic kidney disease; G89.18 Other acute postprocedural pain; I25.2 Old myocardial infarction; E78.5 Hyperlipidemia, unspecified; J44.9 Chronic obstructive pulmonary disease, unspecified; G47.33 Obstructive sleep apnea (adult) (pediatric); E07.9 Disorder of thyroid, unspecified; Z79.02 Long term (current) use of antithrombotics/antiplatelets; Z79.4 Long term (current) use of insulin; Z79.51 Long term (current) use of inhaled steroids; Z79.899 Other long term (current) drug therapy; Z79.890 Hormone replacement therapy; M06.9 Rheumatoid arthritis, unspecified
CPT/HCPCS: 36825; 37607; 64415; 84132; L8670; J2250; J1644 ×2; J1100; J2710; J0690; J2405; J3010; J2795; J2370; J2704; J2001

== ENCOUNTER 2022-11-20 17:01 | Inpatient (IN) | payer MEDICARE, OTHER ==
--- NOTE | 2022-11-20 18:34 | CT ---
EXAMINATION TYPE: CT brain wo con DATE OF EXAM: 11/20/2022 COMPARISON: 08/06/2022 INDICATION: Altered mental status DLP: 1217.4 mGycm, Automated exposure control for dose reduction was used. CONTRAST: None CT of the brain is performed utilizing 3 mm thick sections through the posterior fossa and 3 mm thick sections through the remaining calvarium. Study is performed within 24 hours of arrival to the hosp [facility]. No abnormal hyperdensity is present to suggest an acute intracranial hemorrhage. No mass lesion is evident. No acute infarcts are evident. Ventricles and sulci are mildly prominent for the patient age. Paranasal sinuses and mastoid air cells within the [id number] are clear. IMPRESSIONS: 1. No acute intracranial process. Some mild age-related atrophy may be present. Follow-up MRI can b e performed as clinically indicated
[2022-11-20 19:01] LABS: Glucose,Whole Blood 133 mg/dL (70-110)
[2022-11-20 19:04] LABS: Amphetamine Screen,Urine Not Detected (NotDetected); Appearance,Urine Clear (Clear); Bacteria,Urine Rare /hpf; Barbiturate Screen,Urine Not Detected (NotDetected); Benzodiazepines Screen,Urine Not Detected (NotDetected); Bilirubin,Urine Negative (Negative); Blood,Urine Small (Negative); Cocaine Screen,Urine Not Detected (NotDetected); Color,Urine Yellow; Glucose,Urine (UA) Negative (Negative); Ketones,Urine Negative (Negative); Leukocyte Esterase,Urine Negative (Negative); Methadone Screen, Urine Not Detected (NotDetected); Nitrite,Urine Negative (Negative); Opiate Screen,Urine Detected (NotDetected); Oxycodone Screen, Urine Not Detected (NotDetected); Phencyclidine Screen,Urine Not Detected (NotDetected); Protein,Urine Trace (Negative); RBC,Urine 2 /hpf (0-5); Specific Gravity,Urine 1.011 (1.001-1.035); Squamous Epithelial Cell,Urine <1 /hpf (0-4); Tricyclic Antidepressant,Urine Not Detected (NotDetected); Urn Cannabinoid Scrn Not Detected (NotDetected); Urobilinogen,Urine <2.0 mg/dL (<2.0); WBC,Urine 1 /hpf (0-5)
[2022-11-20 19:08] LABS: Basophils % (A) 0 %; Eosinophils # (A) 0.2 k/uL (0-0.7); Eosinophils % (A) 3 %; HCT 35.3 % (34.0-46.0); HGB 11.8 gm/dL (11.4-16.0); Hypochromasia Slight; Lymphocytes # (A) 1.6 k/uL (1.0-4.8); Lymphocytes % (A) 25 %; MCHC 33.5 g/dL (31.0-37.0); MCV 95.7 fL (80.0-100.0); Monocytes # (A) 0.4 k/uL (0-1.0); Monocytes % (A) 7 %; Neutrophils # (A) 3.9 k/uL (1.3-7.7); Neutrophils % (A) 62 %; Platelet Count 141 k/uL (150-450); RBC 3.69 m/uL (3.80-5.40); RDW 15.7 % (11.5-15.5); WBC 6.3 k/uL (3.8-10.6)
[2022-11-20 19:28] LABS: ALT 7 U/L (4-34); AST 29 U/L (14-36); African American GFR (CKD) 6 (>60 ml/min/1.73 sqM); Albumin 3.1 g/dL (3.5-5.0); Alcohol <10 mg/dL; Alkaline Phosphatase 85 U/L (38-126); Anion Gap 11 mmol/L; Blood Urea Nitrogen 79 mg/dL (7-17); Calcium 8.9 mg/dL (8.4-10.2); Carbon Dioxide 28 mmol/L (22-30); Chloride 93 mmol/L (98-107); Glucose 156 mg/dL (74-99); Non-African American GFR(CKD) 5 (>60 ml/min/1.73 sqM); Potassium 5.3 mmol/L (3.5-5.1); Sodium 132 mmol/L (137-145); Total Bilirubin 0.6 mg/dL (0.2-1.3); Total Protein 6.3 g/dL (6.3-8.2)
--- NOTE | 2022-11-20 20:06 | XR ---
EXAMINATION TYPE: XR ankle limited LT DATE OF EXAM: 11/20/2022 COMPARISON: 04/17/2018 HISTORY: Prior fracture, fall, pain TECHNIQUE: 2 view left ankle FINDINGS: Mild diffuse soft tissue swelling is over the ankle. There is prior open reduction internal fixation of a distal fibular fracture. No acute fractures evident. Joint spaces appear preserved. Calcaneal heel spurs are present. Vascular calcification is present. Follow-up examinations can be performed 7-10 days from acute trauma for continued pain. IMPRESSION: 1. Mild soft tissue swelling. 2. No acute osseous abnormality.
[2022-11-20 20:09] LABS: INR 0.9 (<1.2); Partial Thromboplastin Time 21.1 sec (22.0-30.0); Prothrombin Time 9.5 sec (9.0-12.0)
--- NOTE | 2022-11-20 20:09 | XR ---
EXAMINATION TYPE: XR chest 1V DATE OF EXAM: 11/20/2022 COMPARISON: 10/31/2022 INDICATION: Altered mental status TECHNIQUE: Single frontal view of the chest is obtained. FINDINGS: The heart size is mildly prominent. The pulmonary vasculature is normal. The lungs are clear. Double-lumen catheter is present on the right with the tips in the right atrium. Right shoulder prost hesis is present. IMPRESSION: 1. No acute pulmonary process. Exam appears stable from comparison.
--- NOTE | 2022-11-20 20:09 | XR ---
EXAMINATION TYPE: XR knee limited bilateral DATE OF EXAM: 11/20/2022 COMPARISON: None HISTORY: Fall, pain TECHNIQUE: Two-view bilateral knees each FINDINGS: There is narrowing of the medial compartment joint space. Lateral compartment joint spaces preserved. No acute fracture or dislocation is evident. No joint effusion is evident. Right knee pros thesis is noted. There is dense calcification in the infrapatellar region on the right. IMPRESSION: 1. No acute fractures bilateral knees. 2. Right knee prosthesis. 3. Right knee infrapatellar dense calcification
[2022-11-20] MEDS ORDERED: NALOXONE 0.4 MG/ML 1 ML VIAL IV PRN ×2 (20:41→20:43)
[2022-11-20] MEDS ORDERED: INSULIN REGULAR 100 UNIT/ML VIAL (IV) IV ONE (20:51)
[2022-11-20] MEDS ORDERED: DEXTROSE 50% SYRINGE 50 ML IVP ONE (20:51)
[2022-11-20] MEDS: SODIUM ZIRCONIUM CYCLOSILICATE 10 GM PACKET PO ONE ×2 (21:40→21:55)
[2022-11-20 22:06] LABS: VBG PH 7.34 (7.31-7.41)
--- NOTE | 2022-11-20 22:15 | ED ---
General Adult HPI - General Chief complaint: Altered Mental Status Stated complaint: AMS Time Seen by Provider: 11/20/22 17:07 Source: EMS, RN notes reviewed, old records reviewed Mode of arrival: EMS - History of Present Illness Initial comments: Patient is a 67-year-old female with past medical history remarkable for asthma, ESRD on hemodialysis, heart failure, COPD, diabetes, hypertension, who presents emergency Department for altered mental status after a fall. Patient apparently missed dialysis earlier today as she was feeling weak. Had a fall at her nursing facility and she is on Plavix. Did not hit her head per staff. Landed on her bilateral knees. Baseline is alert and oriented 4. She is complaining of knee pain and x-rays done at the facility did not reveal any obvious injury. However she stopped talking with staff members which is why they sent her here for further evaluation. Patient is unwilling to speak. You can sternal rub heard to obtain basic responses but she seems tired. Appears to have pain over bilateral knees as well as left ankle. Otherwise no significant history obtained from the patient. Presents here for evaluation. - Related Data Home Medications Medication Instructions Recorded Confirmed Levothyroxine Sodium [Synthroid] 175 mcg PO DAILY@0600 11/21/17 11/20/22 Montelukast [Singulair] 10 mg PO HS@2100 11/21/17 11/20/22 Atorvastatin [Lipitor] 40 mg PO HS@2100 09/08/20 11/20/22 Cholecalciferol [Vitamin D3 (25 50 mcg PO DAILY@169912/09/20 11/20/22 Mcg = 1000 Iu)] Acetaminophen Tab [Tylenol] 650 mg PO Q4H PRN 11/04/21 11/20/22 Aspirin EC [Ecotrin Low Dose] 81 mg PO DAILY@169911/04/21 11/20/22 Budesonide [Pulmicort] 0.5 mg INHALATION RT-BID@0700,0 11/04/21 11/20/22 Clopidogrel [Plavix] 75 mg PO DAILY@0811/04/21 11/20/22 DULoxetine HCL [Cymbalta] 60 mg PO DAILY@0800 02/08/22 11/20/22 Fluticasone Propionate 110 Mcg 2 puff INHALATION RT-BID PRN 02/08/22 11/20/22 [Flovent 110 Mcg Inhaler] Insulin Degludec [Tresiba] 20 units SQ HS@2130 02/08/22 11/20/22 Isosorbide Mononitrate ER [Imdur] 30 mg PO BID@0800,1700 02/08/22 11/20/22 Ondansetron [Zofran] 4 mg PO BID PRN 02/08/22 11/20/22 Baclofen 5 mg PO Q8H PRN 04/12/22 11/20/22 Calcium Acetate [PhosLo] 667 mg PO TUTHSA@1400 04/12/22 11/20/22 Docusate [Colace] 100 mg PO BID@0800,1700 04/12/22 11/20/22 Vitamin E Lotion 1 applic TOPICAL BID@0800,1700 04/12/22 11/20/22 Furosemide [Lasix] 60 mg PO BID@0800,1700 08/06/22 11/20/22 INSULIN LISPRO (HumaLOG) [humaLOG] See Protocol SQ ACHS 08/06/22 11/20/22 carvediloL [Coreg] 12.5 mg PO SUMOWEFR@0800 08/06/22 11/20/22 Gabapentin [Neurontin] 100 mg PO BID@0800,2100 09/28/22 11/20/22 Ipratropium-Albuterol Nebulize 3 ml INHALATION RT-Q6H PRN 09/28/22 11/20/22 [Duoneb 0.5 mg-3 mg/3 ml Soln] Loperamide [Imodium] 2 mg PO QID PRN 09/28/22 11/20/22 allopurinoL [Zyloprim] 100 mg PO DAILY@0800 09/28/22 11/20/22 lisinopriL [Zestril] 5 mg PO SUMOWEFR@0800 09/28/22 11/20/22 Calcium Acetate [PhosLo] 667 mg PO BID@0800,1800 10/30/22 11/20/22 Calcium Acetate [PhosLo] 667 mg PO SUMOWEFR@1200 10/30/22 11/20/22 Famotidine [Pepcid] 10 mg PO DAILY@0800 10/30/22 11/20/22 Hydrocortisone Cream 1 applic TOPICAL BID PRN 10/30/22 11/20/22 [Hydrocortisone 1% Cream] Interdry 10 1 applic TOPICAL BID@0800,2100 10/30/22 11/20/22 Midodrine HCl 5 mg PO TUTHSA 10/30/22 11/20/22 Renal Multivitamin Formula Tab 1 tab PO DAILY@1700 10/30/22 11/20/22 bisacodyL [Dulcolax] 10 mg RECTAL DAILY PRN 10/30/22 11/20/22 carvediloL [Coreg] 12.5 mg PO DAILY@1700 10/30/22 11/20/22 guaiFENesin SYRUP 100MG/5ML 200 mg PO Q4H PRN 10/30/22 11/20/22 [Robitussin] lisinopriL [Zestril] 5 mg PO DAILY@1700 10/30/22 11/20/22 Magnesium Hydroxide [Milk of 7,200 mg PO Q48H PRN 11/20/22 11/20/22 Magnesia Concentrate] Na Phos,M-B/Na Phos,Di-Ba [Fleet 133 ml RECTAL DAILY PRN 11/20/22 11/20/22 Adult] Previous Rx's Medication Instructions Recorded HYDROcodone/APAP 5-325MG [[place] 1 tab PO Q8H PRN #4 tab 08/10/22 5-325] Allergies Allergy/AdvReac Type Severity Reaction Status Date / Time No Known Allergies Allergy Verified 11/20/22 18:42 Review of Systems ROS Statement: Those systems with pertinent positive or pertinent negative responses have been documented in the HPI. ROS Other: All systems not noted in ROS Statement are negative. Past Medical History Past Medical History: Asthma, Coronary Artery Disease (CAD), Cancer, Heart Fa ilure, COPD, Diabetes Mellitus, GI Bleed, Hyperlipidemia, Hypertension, Myocardial Infarction ([place]), Osteoarthritis (OA), Pulmonary Embolus (PE), Renal Disease, Rheumatoid Arthritis (RA), Sleep Apnea/CPAP/BIPAP, Syncope, Thyroid Disorder Additional Past Medical History / Comment(s): IDDM type II ,uses cpap ., peripheral neuropathy bilateral hands/feet, CKD , UTIs, legally blind bilaterally-sees minimally, thyroid cancer with surgery, goiter, hashimotos, diverticular disease, 2014 upper and lower GI bleeds with blood loss anemia, gout, R humeral fracture with surgery., hx falls., hx left ankle fxs., Hemodialysis // at [facility] in [place]., pt has chest port. , left forearm fistula., friend Shirley states patient can stand to transfer but uses wheelchair mostly, recen adm [facility]-malfunctioning dialysis catheter Last Myocardial Infarction Date:: 2009 History of Any Multi-Drug Resistant Organisms: VRE Date of last positivie culture/infection: 01/17/22 MDRO Source:: Urine Past Surgical History: Adenoidectomy, Back Surgery, Cholecystectomy, Heart Catheterization With Stent, Tonsillectomy Additional Past Surgical History / Comment(s): PCI with stent 2009 & 2018, low back surgery, total R shoulder and total R knee arthroplasties, bilateral hand trigger finger surgeries, EGD, colonoscopy, L eye laser eye surgery for bleed, thyroidectomy.lt tib fib fx-plate and screws. lt arm Dialysis fistula Past Anesthesia/Blood Transfusion Reactions: No Reported Reaction Additional Past Anesthesia/Blood Transfusion Reaction / Comment(s): . Date of Last Stent Placement:: 2017 Past Psychological History: Anxiety, Depression Smoking Status: Never smoker Past Alcohol Use History: None Reported Past Drug Use History: None Reported - Past Family History Mother Family Medical History: Asthma, CVA/TIA, Seizure Disorder Additional Family Medical History / Comment(s): epilepsy Father Family Medical History: COPD, Diabetes Mellitus Additional Family Medical History / Comment(s): many heart problems General Exam - General Exam Comments Initial Comments: General: Appears in no acute distress. HEAD: Normal with no signs of head trauma. EYES: PERRLA, EOMI, conjunctiva normal, no discharge. Pupils 2 mm and equal bilaterally. ENT: Hearing grossly intact, normal oropharynx. RESPIRATORY: Clear breath sounds bilaterally. No wheezes, rales, or rhonchi. C/V: Regular rate and rhythm. S1 and S2 auscultated, peripheral pulses 2+ and intact throughout ABD: Abd is soft, nontender, nondistended EXT: Normal range of motion, no obvious deformity. Tenderness to palpation of the left ankle that is nonspecific as well as movement of the bilateral knees. SKIN: No rashes or lesions observed on exposed skin. NEURO: Not alert or oriented. Moving all 4 extremities. No obvious neurological deficits. GCS is currently 12. Course Vital Signs 0511/20/22 11/20/22 17:06 18:52 19:03 Temperature 98.1 F Pulse Rate 89 74 79 Respiratory 20 18 16 Rate Blood Pressure 151/68 O2 Sat by Pulse 95 97 98 Oximetry 11/20/22 20:00 Temperature Pulse Rate 68 Respiratory 20 Rate Blood Pressure 146/69 O2 Sat by Pulse 97 Oximetry Medical Decision Making - Medical Decision Making Was pt. sent in by a medical professional or institution (, PA, EDGING MACHINE OPERATOR, urgent care, hospital, or fdc...) When possible be specific @ -Sent from nursing facility for further evaluation for altered mental status. Did you speak to anyone other than the patient for history (EMS, parent, family, police, friend...)? What history was obtained from this source @ -EMS provided most of the history is patient is unwilling and unable to. Did you review nursing and triage notes (agree or disagree)? Why? @ -I reviewed and agree with nursing and triage notes Were old charts reviewed (outside hosp., previous admission, EMS record, old EKG, old radiological studies, urgent care reports/EKG's, fdc records)? Report findings @ -No old charts were reviewed Differential Diagnosis (chest pain, altered mental status, abdominal pain women, abdominal pain men, vaginal bleeding, weakness, fever, dyspnea, syncope, headache, dizziness, GI bleed, back pain, seizure, CVA, palpatations, mental health, musculoskeletal)? @ -Differential Altered Mental Status: Hypoglycemia, DKA, hypercapnia, ETOH, overdose, CO poisoning, trauma, myxedema coma, HTN encephalopathy, infection, encephalitis, psychosis, intercranial hemorrhage, hepatic encephalopathy, meningitis, CVA, this is not meant to be an all-inclusive list EKG interpreted by me (3pts min.). @ -As above X-rays interpreted by me (1pt min.). @ -Chest x-ray showed no obvious acute cardiopulmonary process. X-rays of bilateral knees and left ankle reveal no obvious acute injury. Patient does have a right knee prosthetic. Patient also has hardware in the left ankle from prior fracture. CT interpreted by me (1pt min.). @ -CT brain revealed no obvious acute intracranial process. U/S interpreted by me (1pt. min.). @ -None done What testing was considered but not performed or refused? (CT, X-rays, U/S, labs)? Why? @ -None What meds were considered but not given or refused? Why? @ -None Did you discuss the management of the patient with other professionals (professionals i.e. , PA, EDGING MACHINE OPERATOR, lab, RT, psych nurse, social services manager, supervisor receiving and processing, teacher, custodial officer, protective services case worker)? Give summary @ -Spoke with Dr. marin who accepted the admission. Spoke with Dr. Anderson of nephrology who was in agreement with the plan for hyperkalemia cocktail insulin intact shows as well as lokelma. Agrees patient does not require urgent dialysis but may needed on this admission. Was smoking cessation discussed for >3mins.? @ -No Was critical care preformed (if so, how long)? @ -Yes, 35 minutes Were there social determinants of health that impacted care today? How? (Homelessness, low income, unemployed, alcoholism, drug addiction, transportation, low edu. Level, literacy, decrease access to med. care, senior living, rehab)? @ -No Was there de-escalation of care discussed even if they declined (Discuss DNR or withdrawal of care, Hospice)? DNR status @ -No What co-morbidities impacted this encounter? (DM, HTN, Smoking, COPD, CAD, Cancer, CVA, ARF, Chemo, Hep., AIDS, mental health diagnosis, sleep apnea, morbid obesity)? @ -None Was patient admitted / discharged? Hospital course, mention meds given and route, prescriptions, significant lab abnormalities, going to OR and other pertinent info. @ -Based on the patient's presentation and physical exam, since with altered mental status. Vital signs within acceptable limits. GCS is 12. We will obtain altered mental status labs. Patient also missed dialysis today. EKG showed no signs of acute ischemia. No evidence of hyperkalemic changes. Imaging is unremarkable for any fractures of the lower extremities as well as no acute intracranial process or cardiopulmonary process. Patient's labs reveal an elevated BUN/creatinine in the setting of ESRD and missed dialysis. Potassium is 5.3 with no EKG changes. Mild hyponatremia of 132 and hypochloremia of 93. Troponin undetectable. Ammonia negative. VBG pending. Tox screen positive for opiates. Urine within acceptable limits. On reevaluation, GCS may be mildly improved to 13. She still remains altered. No obvious explanation for her altered mental status at this time. Potentially uremia related however BUN is only 79. We will consult nephrology as the patient will likely require dialysis on this admission. I will also consult neurology for evaluation for altered mental status. I spoke with the admitting physician, Dr. marin who was in agreement with the plan and accepted the admission. After discussing the case with nephrology Dr. Anderson, patient will be given a single dose of the hyperkalemia cocktail just the insulin and dextrose as Lokelma, when she can drink. Patient's VBG did return with a mild hypercarbia level of 57. This may play a role in patient's altered mental status. Discussed be on CPAP at night and this will be ordered for the patient. Undiagnosed new problem with uncertain prognosis? @ -No Drug Therapy requiring intensive monitoring for toxicity (Heparin, Nitro, Insulin, Cardizem)? @ -No Were any procedures done? @ -No Diagnosis/symptom? @ -Altered mental status of unknown etiology, missed dialysis, hyperkalemia Acute, or Chronic, or Acute on Chronic? @ -Acute Uncomplicated (without systemic symptoms) or Complicated (systemic symptoms)? @ -Complicated Side effects of treatment? @ -No Exacerbation, Progression, or Severe Exacerbation? @ -No Poses a threat to life or bodily function? How? (Chest pain, [place], [place], pneumonia, PE, COPD, DKA, ARF, appy, cholecystitis, CVA, Diverticulitis, Homicidal, Suicidal, threat to staff... and all critical care pts) @ -yes - Lab Data Result diagrams: 11/20/22 18:43 11/20/22 18:43 Lab Results 11/20/22 11/20/22 11/20/22 Range/Units 17:17 18:43 18:43 WBC 6.3 (3.8-10.6) k/uL RBC 3.69 L (3.80-5.40) m/uL Hgb 11.8 (11.4-16.0) gm/dL Hct 35.3 (34.0-46.0) % MCV 95.7 (80.0-100.0) fL MCH 32.0 (25.0-35.0) pg MCHC 33.5 (31.0-37.0) g/dL RDW 15.7 H (11.5-15.5) % Plt Count 141 L (150-450) k/uL MPV 8.0 Neutrophils % 62 % Lymphocytes % 25 % Monocytes % 7 % Eosinophils % 3 % Basophils % 0 % Neutrophils # 3.9 (1.3-7.7) k/uL Lymphocytes # 1.6 (1.0-4.8) k/uL Monocytes # 0.4 (0-1.0) k/uL Eosinophils # 0.2 (0-0.7) k/uL Basophils # 0.0 (0-0.2) k/uL Hypochromasia Slight PT 9.5 (9.0-12.0) sec INR 0.9 (<1.2) APTT 21.1 L (22.0-30.0) sec Sodium (137-145) mmol/L Potassium (3.5-5.1) mmol/L Chloride (98-107) mmol/L Carbon Dioxide (22-30) mmol/L Anion Gap mmol/L BUN (7-17) mg/dL Creatinine (0.52-1.04) mg/dL Est GFR (CKD-EPI)AfAm (>60 ml/min/1.73 sqM) Est GFR (CKD-EPI)NonAf (>60 ml/min/1.73 sqM) Glucose (74-99) mg/dL POC Glucose (mg/dL) (70-110) mg/dL POC Glu Dairy Products Maker ID Calcium (8.4-10.2) mg/dL Total Bilirubin (0.2-1.3) mg/dL AST (14-36) U/L ALT (4-34) U/L Alkaline Phosphatase (38-126) U/L Ammonia (<30) umol/L Troponin I (0.000-0.034) ng/mL Total Protein (6.3-8.2) g/dL Albumin (3.5-5.0) g/dL Urine Color Yellow Urine Appearance Clear (Clear) Urine pH 5.0 (5.0-8.0) Ur Specific [place] 1.011 (1.001-1.035) Urine Protein Trace H (Negative) Urine Glucose (UA) Negative (Negative) Urine Ketones Negative (Negative) Urine Blood Small H (Negative) Urine Nitrite Negative (Negative) Urine Bilirubin Negative (Negative) Urine Urobilinogen <2.0 (<2.0) mg/dL Ur Leukocyte Esterase Negative (Negative) Urine RBC 2 (0-5) /hpf Urine WBC 1 (0-5) /hpf Ur Squamous Epith Cells <1 (0-4) /hpf Urine Bacteria Rare H (None) /hpf Urine Opiates Screen Detected H (NotDetected) Ur Oxycodone Screen Not Detected (NotDetected) Urine Methadone Screen Not Detected (NotDetected) Ur Propoxyphene Screen Not Detected (NotDetected) Ur Barbiturates Screen Not Detected (NotDetected) U Tricyclic Antidepress Not Detected (NotDetected) Ur Phencyclidine Scrn Not Detected (NotDetected) Ur Amphetamines Screen Not Detected (NotDetected) U Methamphetamines Scrn Not Detected (NotDetected) U Benzodiazepines Scrn Not Detected (NotDetected) Urine Cocaine Screen Not Detected (NotDetected) U Marijuana (THC) Screen Not Detected (NotDetected) Serum Alcohol mg/dL 11/20/22 11/20/22 11/20/22 Range/Units 18:43 18:43 18:43 WBC (3.8-10.6) k/uL RBC (3.80-5.40) m/uL Hgb (11.4-16.0) gm/dL Hct (34.0-46.0) % MCV (80.0-100.0) fL MCH (25.0-35.0) pg MCHC (31.0-37.0) g/dL RDW (11.5-15.5) % Plt Count (150-450) k/uL MPV Neutrophils % % Lymphocytes % % Monocytes % % Eosinophils % % Basophils % % Neutrophils # (1.3-7.7) k/uL Lymphocytes # (1.0-4.8) k/uL Monocytes # (0-1.0) k/uL Eosinophils # (0-0.7) k/uL Basophils # (0-0.2) k/uL Hypochromasia PT (9.0-12.0) sec INR (<1.2) APTT (22.0-30.0) sec Sodium 132 L (137-145) mmol/L Potassium 5.3 H (3.5-5.1) mmol/L Chloride 93 L (98-107) mmol/L Carbon Dioxide 28 (22-30) mmol/L Anion Gap 11 mmol/L BUN 79 H (7-17) mg/dL Creatinine 7.55 H* (0.52-1.04) mg/dL Est GFR (CKD-EPI)AfAm 6 (>60 ml/min/1.73 sqM) Est GFR (CKD-EPI)NonAf 5 (>60 ml/min/1.73 sqM) Glucose 156 H (74-99) mg/dL POC Glucose (mg/dL) (70-110) mg/dL POC Glu Dairy Products Maker ID Calcium 8.9 (8.4-10.2) mg/dL Total Bilirubin 0.6 (0.2-1.3) mg/dL AST 29 (14-36) U/L ALT 7 (4-34) U/L Alkaline Phosphatase 85 (38-126) U/L Ammonia <9 (<30) umol/L Troponin I <0.012 (0.000-0.034) ng/mL Total Protein 6.3 (6.3-8.2) g/dL Albumin 3.1 L (3.5-5.0) g/dL Urine Color Urine Appearance (Clear) Urine pH (5.0-8.0) Ur Specific [place] (1.001-1.035) Urine Protein (Negative) Urine Glucose (UA) (Negative) Urine Ketones (Negative) Urine Blood (Negative) Urine Nitrite (Negative) Urine Bilirubin (Negative) Urine Urobilinogen (<2.0) mg/dL Ur Leukocyte Esterase (Negative) Urine RBC (0-5) /hpf Urine WBC (0-5) /hpf Ur Squamous Epith Cells (0-4) /hpf Urine Bacteria (None) /hpf Urine Opiates Screen (NotDetected) Ur Oxycodone Screen (NotDetected) Urine Methadone Screen (NotDetected) Ur Propoxyphene Screen (NotDetected) Ur Barbiturates Screen (NotDetected) U Tricyclic Antidepress (NotDetected) Ur Phencyclidine Scrn (NotDetected) Ur Amphetamines Screen (NotDetected) U Methamphetamines Scrn (NotDetected) U Benzodiazepines Scrn (NotDetected) Urine Cocaine Screen (NotDetected) U Marijuana (THC) Screen (NotDetected) Serum Alcohol <10 mg/dL 11/20/22 Range/Units 18:59 WBC (3.8-10.6) k/uL RBC (3.80-5.40) m/uL Hgb (11.4-16.0) gm/dL Hct (34.0-46.0) % MCV (80.0-100.0) fL MCH (25.0-35.0) pg MCHC (31.0-37.0) g/dL RDW (11.5-15.5) % Plt Count (150-450) k/uL MPV Neutrophils % % Lymphocytes % % Monocytes % % Eosinophils % % Basophils % % Neutrophils # (1.3-7.7) k/uL Lymphocytes # (1.0-4.8) k/uL Monocytes # (0-1.0) k/uL Eosinophils # (0-0.7) k/uL Basophils # (0-0.2) k/uL Hypochromasia PT (9.0-12.0) sec INR (<1.2) APTT (22.0-30.0) sec Sodium (137-145) mmol/L Potassium (3.5-5.1) mmol/L Chloride (98-107) mmol/L Carbon Dioxide (22-30) mmol/L Anion Gap mmol/L BUN (7-17) mg/dL Creatinine (0.52-1.04) mg/dL Est GFR (CKD-EPI)AfAm (>60 ml/min/1.73 sqM) Est GFR (CKD-EPI)NonAf (>60 ml/min/1.73 sqM) Glucose (74-99) mg/dL POC Glucose (mg/dL) 133 H (70-110) mg/dL POC Glu Dairy Products Maker ID Girard, Jh Calcium (8.4-10.2) mg/dL Total Bilirubin (0.2-1.3) mg/dL AST (14-36) U/L ALT (4-34) U/L Alkaline Phosphatase (38-126) U/L Ammonia (<30) umol/L Troponin I (0.000-0.034) ng/mL Total Protein (6.3-8.2) g/dL Albumin (3.5-5.0) g/dL Urine Color Urine Appearance (Clear) Urine pH (5.0-8.0) Ur Specific [place] (1.001-1.035) Urine Protein (Negative) Urine Glucose (UA) (Negative) Urine Ketones (Negative) Urine Blood (Negative) Urine Nitrite (Negative) Urine Bilirubin (Negative) Urine Urobilinogen (<2.0) mg/dL Ur Leukocyte Esterase (Negative) Urine RBC (0-5) /hpf Urine WBC (0-5) /hpf Ur Squamous Epith Cells (0-4) /hpf Urine Bacteria (None) /hpf Urine Opiates Screen (NotDetected) Ur Oxycodone Screen (NotDetected) Urine Methadone Screen (NotDetected) Ur Propoxyphene Screen (NotDetected) Ur Barbiturates Screen (NotDetected) U Tricyclic Antidepress (NotDetected) Ur Phencyclidine Scrn (NotDetected) Ur Amphetamines Screen (NotDetected) U Methamphetamines Scrn (NotDetected) U Benzodiazepines Scrn (NotDetected) Urine Cocaine Screen (NotDetected) U Marijuana (THC) Screen (NotDetected) Serum Alcohol mg/dL - EKG Data -: EKG Interpreted by Me EKG Comments: 12-lead Electrocardiogram Interpretation Note EKG was reviewed and interpreted by myself. 12-lead ECG performed at 1857 is interpreted by me as revealing normal sinus rhythm with first-degree AV block and left bundle branch block morphology at a rate of 69 beats per minute. Left axis deviation. MA interval is 262 ms, QRS duration is 140 ms, QTc is 456 ms.. There were no ST or T wave abnormalities to suggest myocardial ischemia or injury. R wave progression across the precordium was satisfactory. By my interpretation this EKG is non-diagnostic for acute ischemia. When compared with EKG from 10/30/2022, no significant change. Critical Care Time Critical Care Time: Yes Total Critical Care Time: 35 Disposition Clinical Impression: Altered mental status, Hyperkalemia, Missed dialysis Disposition: ADMITTED IP TO THIS [facility] Condition: Stable Time of Disposition: 20:30
[2022-11-20] MEDS ORDERED: FLUTICASONE 110 MCG INHALER INHALATION PRN (22:20)
[2022-11-20] MEDS ORDERED: LOPERAMIDE 2 MG CAP PO PRN (22:20)
[2022-11-20] MEDS ORDERED: MAGNESIUM HYDROXIDE 2,400 MG/10 ML CUP PO PRN (22:20)
[2022-11-20] MEDS ORDERED: MIDODRINE 5 MG TAB PO PRN (22:30)
[2022-11-21] MEDS ORDERED: carvediloL 12.5 MG TAB PO PRN (08:00)
[2022-11-21] MEDS: IPRATROPIUM-ALBUTEROL 3 ML NEB INHALATION PRN ×2 (08:19→21:01)
[2022-11-21] MEDS: BUDESONIDE 0.5 MG/2 ML NEBU INHALATION SCH ×2 (08:19→21:01)
[2022-11-21] MEDS ORDERED: lisinopriL 5 MG TAB PO PRN (09:00)
[2022-11-21] MEDS ORDERED: GABAPENTIN 100 MG CAP PO SCH (09:00)
[2022-11-21 10:10] LABS: Glucose,Whole Blood 182 mg/dL (70-110)
[2022-11-21] MEDS ORDERED: ACETAMINOPHEN TAB 325 MG TAB PO PRN (11:37)
[2022-11-21] MEDS ORDERED: guaiFENesin SYRUP 100MG/5ML 200 MG/10 ML CUP PO PRN (11:37)
[2022-11-21] MEDS ORDERED: HYDROCORTISONE 1% CREAM 30 GM TUBE TOPICAL PRN (11:37)
[2022-11-21] MEDS ORDERED: CALCIUM ACETATE 667 MG TAB PO SCH (12:00)
--- NOTE | 2022-11-21 12:37 | P.NPCON ---
History of Present Illness - Reason for Consult end stage renal disease - History of Present Illness Reason for consultation: End-stage renal disease History of present illness: Patient is a 67-year-old female seen in consultation for end-stage renal disease. She is maintained on hemodialysis on Saturday schedule. Patient was seen and examined in the emergency room. She is currently seen while undergoing hemodialysis as she missed her treatment yesterday. Patient came to the hospital due to altered mental status. Patient is currently resting in bed and tolerating dialysis well but is not really very responsive. It is noted from the chart that patient did sustain a fall and l anded on her knees prior to admission. She is coming from an extended care facility. No acute fractures noted. No fever. Potassium up to 5.8. She does take lisinopril outpatient. Patient does have long-standing history of diabetes. Chest permacath is being used for dialysis. Vital signs are stable. General: Resting in bed. Lethargic. HEENT: Head exam is unremarkable. LUNGS: No audible rhonchi or wheezes. HEART: Rate and Rhythm are regular. ABDOMEN: No distention noted. EXTREMITITES: No edema. Past Medical History Past Medical History: Asthma, Coronary Artery Disease (CAD), Cancer, Heart Failure, COPD, Diabetes Mellitus, GI Bleed, Hyperlipidemia, Hypertension, Myocardial Infarction ([place]), Osteoarthritis (OA), Pulmonary Embolus (PE), Renal Disease, Rheumatoid Arthritis (RA), Sleep Apnea/CPAP/BIPAP, Syncope, Thyroid Disorder Additional Past Medical History / Comment(s): IDDM type II ,uses cpap ., peripheral neuropathy bilateral hands/feet, CKD , UTIs, legally blind bilaterally-sees minimally, thyroid cancer with surgery, goiter, hashimotos, diverticular disease, 2014 upper and lower GI bleeds with blood loss anemia, gout, R humeral fracture with surgery., hx falls., hx left ankle fxs., Hemodialysis // at [facility] in [place]., pt has chest port. , left forearm fistula., friend Shirley states patient can stand to transfer but uses wheelchair mostly, recen adm [facility]-malfunctioning dialysis catheter Last Myocardial Infarction Date:: 2009 History of Any Multi-Drug Resistant Organisms: VRE Date of last positivie culture/infection: 01/17/22 MDRO Source:: Urine Past Surgical History: Adenoidectomy, Back Surgery, Cholecystectomy, Heart Catheterization With Stent, Tonsillectomy Additional Past Surgical History / Comment(s): PCI with stent 2009 & 2018, low back surgery, total R shoulder and total R knee arthroplasties, bilateral hand trigger finger surgeries, EGD, colonoscopy, L eye laser eye surgery for bleed, thyroidectomy.lt tib fib fx-plate and screws. lt arm Dialysis fistula Past Anesthesia/Blood Transfusion Reactions: No Reported Reaction Additional Past Anesthesia/Blood Transfusion Reaction / Comment(s): . Date of Last Stent Placement:: 2017 Past Psychological History: Anxiety, Depression Smoking Status: Never smoker Past Alcohol Use History: None Reported Past Drug Use History: None Reported - Past Family History Mother Family Medical History: Asthma, CVA/TIA, Seizure Disorder Additional Family Medical History / Comment(s): epilepsy Father Family Medical History: COPD, Diabetes Mellitus Additional Family Medical History / Comment(s): many heart problems Medications and Allergies Home Medications Medication Instructions Recorded Confirmed Type Levothyroxine Sodium [Synthroid] 175 mcg PO DAILY@0600 11/21/17 11/20/22 History Montelukast [Singulair] 10 mg PO HS@2100 11/21/17 11/20/22 History Atorvastatin [Lipitor] 40 mg PO HS@2100 09/08/20 11/20/22 History Cholecalciferol [Vitamin D3 (25 50 mcg PO DAILY@169912/09/20 11/20/22 History Mcg = 1000 Iu)] Acetaminophen Tab [Tylenol] 650 mg PO Q4H PRN 11/04/21 11/20/22 History Aspirin EC [Ecotrin Low Dose] 81 mg PO DAILY@169911/04/21 11/20/22 History Budesonide [Pulmicort] 0.5 mg INHALATION RT-BID@0700,1700 11/04/21 11/20/22 History Clopidogrel [Plavix] 75 mg PO DAILY@0811/04/21 11/20/22 History DULoxetine HCL [Cymbalta] 60 mg PO DAILY@0800 02/08/22 11/20/22 History Fluticasone Propionate 110 Mcg 2 puff INHALATION RT-BID PRN 02/08/22 11/20/22 History [Flovent 110 Mcg Inhaler] Insulin Degludec [Tresiba] 20 units SQ HS@2130 02/08/22 11/20/22 History Isosorbide Mononitrate ER [Imdur] 30 mg PO BID@0800,1700 02/08/22 11/20/22 History Ondansetron [Zofran] 4 mg PO BID PRN 02/08/22 11/20/22 History Baclofen 5 mg PO Q8H PRN 04/12/22 11/20/22 History Calcium Acetate [PhosLo] 667 mg PO TUTHSA@1400 04/12/22 11/20/22 History Docusate [Colace] 100 mg PO BID@0800,1700 04/12/22 11/20/22 History Vitamin E Lotion 1 applic TOPICAL BID@0800,1700 04/12/22 11/20/22 History Furosemide [Lasix] 60 mg PO BID@0800,1700 08/06/22 11/20/22 History INSULIN LISPRO (HumaLOG) [humaLOG] See Protocol SQ ACHS 08/06/22 11/20/22 History carvediloL [Coreg] 12.5 mg PO SUMOWEFR@0800 08/06/22 11/20/22 History HYDROcodone/APAP 5-325MG [[place] 1 tab PO Q8H PRN #4 tab 08/10/22 11/20/22 Rx 5-325] Gabapentin [Neurontin] 100 mg PO BID@0800,2100 09/28/22 11/20/22 History Ipratropium-Albuterol Nebulize 3 ml INHALATION RT-Q6H PRN 09/28/22 11/20/22 History [Duoneb 0.5 mg-3 mg/3 ml Soln] Loperamide [Imodium] 2 mg PO QID PRN 09/28/22 11/20/22 History allopurinoL [Zyloprim] 100 mg PO DAILY@0800 09/28/22 11/20/22 History lisinopriL [Zestril] 5 mg PO SUMOWEFR@0800 09/28/22 11/20/22 History Calcium Acetate [PhosLo] 667 mg PO BID@0800,1800 10/30/22 11/20/22 History Calcium Acetate [PhosLo] 667 mg PO SUMOWEFR@1200 10/30/22 11/20/22 History Famotidine [Pepcid] 10 mg PO DAILY@0800 10/30/22 11/20/22 History Hydrocortisone Cream 1 applic TOPICAL BID PRN 10/30/22 11/20/22 History [Hydrocortisone 1% Cream] Interdry 10 1 applic TOPICAL BID@0800,2100 10/30/22 11/20/22 History Midodrine HCl 5 mg PO TUTHSA 10/30/22 11/20/22 History Renal Multivitamin Formula Tab 1 tab PO DAILY@1700 10/30/22 11/20/22 History bisacodyL [Dulcolax] 10 mg RECTAL DAILY PRN 10/30/22 11/20/22 History carvediloL [Coreg] 12.5 mg PO DAILY@0 10/30/22 11/20/22 History guaiFENesin SYRUP 100MG/5ML 200 mg PO Q4H PRN 10/30/22 11/20/22 History [Robitussin] lisinopriL [Zestril] 5 mg PO DAILY@0 10/30/22 11/20/22 History Magnesium Hydroxide [Milk of 7,200 mg PO Q48H PRN 11/20/22 11/20/22 History Magnesia Concentrate] Na Phos,M-B/Na Phos,Di-Ba [Fleet 133 ml RECTAL DAILY PRN 11/20/22 11/20/22 History Adult] Allergies Allergy/AdvReac Type Severity Reaction Status Date / Time No Known Allergies Allergy Verified 11/20/22 18:42 Physical Exam Vitals: Vital Signs Temp Pulse Pulse Resp BP BP Pulse Ox 11/21/22 11:28 11/21/22 08:43 70 11/21/22 08:20 72 11/21/22 08:08 11/21/22 08:00 98 F 66 16 166/97 99 11/21/22 05:00 64 20 158/73 100 11/21/22 02:01 69 20 146/63 98 11/21/22 00:36 11/21/22 00:05 67 22 145/64 11/20/22 22:48 11/20/22 22:00 69 20 136/63 98 11/20/22 20:00 68 20 146/69 97 11/20/22 19:03 79 16 98 11/20/22 18:52 74 18 151/68 97 11/20/22 17:06 98.1 F 89 20 95 FiO2 11/21/22 11:28 21 11/21/22 08:43 11/21/22 08:20 11/21/22 08:08 21 11/21/22 08:00 11/21/22 05:00 11/21/22 02:01 11/21/22 00:36 21 11/21/22 00:05 11/20/22 22:48 21 11/20/22 22:00 11/20/22 20:00 11/20/22 19:03 11/20/22 18:52 11/20/22 17:06 Intake and Output 11/20/22 11/21/22 11/21/22 22:59 06:59 14:59 Other: Voiding Method Diaper Weight 113.398 kg Results - Lab Results Most recent lab results Calcium 8.9 mg/dL (8.4-10.2) 11/20/22 18:43 11/20/22 18:43 11/21/22 00:47 Assessment and Plan Plan: Assessment: 1. End-stage renal disease making on hemodialysis on Saturday schedule via a permacath. 2. Altered mental status. Unclear cause. Rule out infection. Ammonia level negative. Neurology consulted. 3. Hyperkalemia secondary to chronic kidney disease, missed dialysis and lisinopril. 4. Hypertension with chronic kidney disease. 5. Chronic kidney disease mineral bone disease maintained on PhosLo. Plan: Currently seen while undergoing hemodialysis. Plan for another treatment tomorrow per her outpatient schedule. Follow-up cultures. Thank you for the consultation. I will continue to follow the patient with you during her hospital stay.
--- NOTE | 2022-11-21 12:38 | P.HPIM ---
History of Present Illness 67-year-old female admitted for altered mental status. Patient is hemodialysis yesterday became more and more altered. Patient is on multiple medications that the will be Related in her body particularly female more dialysis was not done which includes baclofen, gabapentin Arnold, which I'm holding at this point of time patient will is undergoing dialysis patient is bit more awake now. Unable to get much of the history from the patient. As no evidence of infection at this time. Patient barely urinates. REVIEW OF SYSTEMS: Unable to obtain PHYSICAL EXAMINATION: GENERAL: Obese, drowsy and sleepy arousable HEENT: Pupils are round and equally reacting to light. EOMI. No scleral icterus. No conjunctival pallor. Normocephalic, atraumatic. No pharyngeal erythema. No thyromegaly. CARDIOVASCULAR: S1 and S2 present. No murmurs, rubs, or gallops. PULMONARY: Chest is clear to auscultation, no wheezing or crackles. ABDOMEN: Soft, nontender, nondistended, normoactive bowel sounds. No palpable organomegaly. MUSCULOSKELETAL: No joint swelling or deformity. EXTREMITIES: No cyanosis, clubbing, or pedal edema. NEUROLOGICAL: Drowsy and sleepy SKIN: No rashes. Assessment and plan Altered mental status: Secondary to missing hemodialysis and medications contributing to her altered mental status which include but not limited to gabapentin, Arnold, baclofen which are being held at this time. Next line have an incisional disease hemodialysis dependent missing dialysis yesterday will undergo dialysis today -Hyponatremia: Secondary to end-stage renal disease -Hyperkalemia secondary to lisinopril and end-stage renal disease is supple will be discontinue patient was started on Norvasc instead next line-hypertension management as mentioned above -Type 2 diabetes mellitus,Treseba will be held patient is not eating at this time patient will be on diabetic diet and sliding scale insulin for now -Hyperlipidemia History of PE in the past -Sleep apnea -Hyperthyroidism DVT prophylaxis: Subcutaneous heparin Past Medical History Past Medical History: Asthma, Coronary Artery Disease (CAD), Cancer, Heart Failure, COPD, Diabetes Mellitus, GI Bleed, Hyperlipidemia, Hypertension, Myocardial Infarction ([place]), Osteoarthritis (OA), Pulmonary Embolus (PE), Renal Disease, Rheumatoid Arthritis (RA), Sleep Apnea/CPAP/BIPAP, Syncope, Thyroid Disorder Additional Past Medical History / Comment(s): IDDM type II ,uses cpap ., peripheral neuropathy bilateral hands/feet, CKD , UTIs, legally blind bilaterally-sees minimally, thyroid cancer with surgery, goiter, hashimotos, diverticular disease, 2013 upper and lower GI bleeds with blood loss anemia, gout, R humeral fracture with surgery., hx falls., hx left ankle fxs., Hemodialysis // at [facility] in [place]., pt has chest port. , left forearm fistula., friend Shirley states patient can stand to transfer but uses wheelchair mostly, recen adm [facility]-malfunctioning dialysis catheter Last Myocardial Infarction Date:: 2009 History of Any Multi-Drug Resistant Organisms: VRE Date of last positivie culture/infection: 01/17/22 MDRO Source:: Urine Past Surgical History: Adenoidectomy, Back Surgery, Cholecystectomy, Heart Catheterization With Stent, Tonsillectomy Additional Past Surgical History / Comment(s): PCI with stent 2009 & 2018, low back surgery, total R shoulder and total R knee arthroplasties, bilateral hand trigger finger surgeries, EGD, colonoscopy, L eye laser eye surgery for bleed, thyroidectomy.lt tib fib fx-plate and screws. lt arm Dialysis fistula Past Anesthesia/Blood Transfusion Reactions: No Reported Reaction Additional Past Anesthesia/Blood Transfusion Reaction / Comment(s): . Date of Last Stent Placement:: 2017 Past Psychological History: Anxiety, Depression Smoking Status: Never smoker Past Alcohol Use History: None Reported Past Drug Use History: None Reported - Past Family History Mother Family Medical History: Asthma, CVA/TIA, Seizure Disorder Additional Family Medical History / Comment(s): epilepsy Father Family Medical History: COPD, Diabetes Mellitus Additional Family Medical History / Comment(s): many heart problems Medications and Allergies Home Medications Medication Instructions Recorded Confirmed Type Levothyroxine Sodium [Synthroid] 175 mcg PO DAILY@0600 11/21/17 11/20/22 History Montelukast [Singulair] 10 mg PO HS@2100 11/21/17 11/20/22 History Atorvastatin [Lipitor] 40 mg PO HS@2100 09/08/20 11/20/22 History Cholecalciferol [Vitamin D3 (25 50 mcg PO DAILY@1700 12/09/20 11/20/22 History Mcg = 1000 Iu)] Acetaminophen Tab [Tylenol] 650 mg PO Q4H PRN 11/04/21 11/20/22 History Aspirin EC [Ecotrin Low Dose] 81 mg PO DAILY@1700 11/04/21 11/20/22 History Budesonide [Pulmicort] 0.5 mg INHALATION RT-BID@0700,1700 11/04/21 11/20/22 History Clopidogrel [Plavix] 75 mg PO DAILY@0800 11/04/21 11/20/22 History DULoxetine HCL [Cymbalta] 60 mg PO DAILY@0800 02/08/22 11/20/22 History Fluticasone Propionate 110 Mcg 2 puff INHALATION RT-BID PRN 02/08/22 11/20/22 History [Flovent 110 Mcg Inhaler] Insulin Degludec [Tresiba] 20 units SQ HS@2130 02/08/22 11/20/22 History Isosorbide Mononitrate ER [Imdur] 30 mg PO BID@0800,1700 02/08/22 11/20/22 History Ondansetron [Zofran] 4 mg PO BID PRN 02/08/22 11/20/22 History Baclofen 5 mg PO Q8H PRN 04/12/22 11/20/22 History Calcium Acetate [PhosLo] 667 mg PO TUTHSA@1400 04/12/22 11/20/22 History Docusate [Colace] 100 mg PO BID@0800,1700 04/12/22 11/20/22 History Vitamin E Lotion 1 applic TOPICAL BID@0800,1700 04/12/22 11/20/22 History Furosemide [Lasix] 60 mg PO BID@0800,1700 08/06/22 11/20/22 History INSULIN LISPRO (HumaLOG) [humaLOG] See Protocol SQ ACHS 08/06/22 11/20/22 History carvediloL [Coreg] 12.5 mg PO SUMOWEFR@0800 08/06/22 11/20/22 History HYDROcodone/APAP 5-325MG [Arnold 1 tab PO Q8H PRN #4 tab 08/10/22 11/20/22 Rx 5-325] Gabapentin [Neurontin] 100 mg PO BID@0800,2100 09/28/22 11/20/22 History Ipratropium-Albuterol Nebulize 3 ml INHALATION RT-Q6H PRN 09/28/22 11/20/22 History [Duoneb 0.5 mg-3 mg/3 ml Soln] Loperamide [Imodium] 2 mg PO QID PRN 09/28/22 11/20/22 History allopurinoL [Zyloprim] 100 mg PO DAILY@0800 09/28/22 11/20/22 History lisinopriL [Zestril] 5 mg PO SUMOWEFR@0800 09/28/22 11/20/22 History Calcium Acetate [PhosLo] 667 mg PO BID@0800,1800 10/30/22 11/20/22 History Calcium Acetate [PhosLo] 667 mg PO SUMOWEFR@1200 10/30/22 11/20/22 History Famotidine [Pepcid] 10 mg PO DAILY@0800 10/30/22 11/20/22 History Hydrocortisone Cream 1 applic TOPICAL BID PRN 10/30/22 11/20/22 History [Hydrocortisone 1% Cream] Interdry 10 1 applic TOPICAL BID@0800,2100 10/30/22 11/20/22 History Midodrine HCl 5 mg PO TUTHSA 10/30/22 11/20/22 History Renal Multivitamin Formula Tab 1 tab PO DAILY@1700 10/30/22 11/20/22 History bisacodyL [Dulcolax] 10 mg RECTAL DAILY PRN 10/30/22 11/20/22 History carvediloL [Coreg] 12.5 mg PO DAILY@1700 10/30/22 11/20/22 History guaiFENesin SYRUP 100MG/5ML 200 mg PO Q4H PRN 10/30/22 11/20/22 History [Robitussin] lisinopriL [Zestril] 5 mg PO DAILY@1700 10/30/22 11/20/22 History Magnesium Hydroxide [Milk of 7,200 mg PO Q48H PRN 11/20/22 11/20/22 History Magnesia Concentrate] Na Phos,M-B/Na Phos,Di-Ba [Fleet 133 ml RECTAL DAILY PRN 11/20/22 11/20/22 History Adult] Allergies Allergy/AdvReac Type Severity Reaction Status Date / Time No Known Allergies Allergy Verified 11/20/22 18:42 Physical Exam Vitals: Vital Signs Temp Pulse Pulse Resp BP BP Pulse Ox 11/21/22 11:28 11/21/22 08:43 70 11/21/22 08:20 72 11/21/22 08:08 11/21/22 08:00 98 F 66 16 166/97 99 11/21/22 05:00 64 20 158/73 100 11/21/22 02:01 69 20 146/63 98 11/21/22 00:36 11/21/22 00:05 67 22 145/64 11/20/22 22:48 11/20/22 22:00 69 20 136/63 98 11/20/22 20:00 68 20 146/69 97 11/20/22 19:03 79 16 98 11/20/22 18:52 74 18 151/68 97 11/20/22 17:06 98.1 F 89 20 95 FiO2 11/21/22 11:28 21 11/21/22 08:43 11/21/22 08:20 11/21/22 08:08 21 11/21/22 08:00 11/21/22 05:00 11/21/22 02:01 11/21/22 00:36 21 11/21/22 00:05 11/20/22 22:48 21 11/20/22 22:00 11/20/22 20:00 11/20/22 19:03 11/20/22 18:52 11/20/22 17:06 Intake and Output 11/20/22 11/21/22 11/21/22 22:59 06:59 14:59 Other: Voiding Method Diaper Weight 113.398 kg Results CBC & Chem 7: 11/20/22 18:43 11/21/22 00:47 Labs: Abnormal Lab Results - Last 24 Hours (Table) 11/20/22 11/20/22 11/20/22 Range/Units 17:17 18:43 18:43 RBC 3.69 L (3.80-5.40) m/uL RDW 15.7 H (11.5-15.5) % Plt Count 141 L (150-450) k/uL APTT 21.1 L (22.0-30.0) sec VBG pCO2 (37-51) mmHg VBG HCO3 (24-28) mmol/L Sodium (137-145) mmol/L Potassium (3.5-5.1) mmol/L Chloride (98-107) mmol/L BUN (7-17) mg/dL Creatinine (0.52-1.04) mg/dL Glucose (74-99) mg/dL POC Glucose (mg/dL) (70-110) mg/dL Albumin (3.5-5.0) g/dL Urine Protein Trace H (Negative) Urine Blood Small H (Negative) Urine Bacteria Rare H (None) /hpf Urine Opiates Screen Detected H (NotDetected) 11/20/22 11/20/22 11/20/22 Range/Units 18:43 18:59 21:26 RBC (3.80-5.40) m/uL RDW (11.5-15.5) % Plt Count (150-450) k/uL APTT (22.0-30.0) sec VBG pCO2 57 H (37-51) mmHg VBG HCO3 30 H (24-28) mmol/L Sodium 132 L (137-145) mmol/L Potassium 5.3 H (3.5-5.1) mmol/L Chloride 93 L (98-107) mmol/L BUN 79 H (7-17) mg/dL Creatinine 7.55 H* (0.52-1.04) mg/dL Glucose 156 H (74-99) mg/dL POC Glucose (mg/dL) 133 H (70-110) mg/dL Albumin 3.1 L (3.5-5.0) g/dL Urine Protein (Negative) Urine Blood (Negative) Urine Bacteria (None) /hpf Urine Opiates Screen (NotDetected) 11/21/22 11/21/22 Range/Units 00:47 10:08 RBC (3.80-5.40) m/uL RDW (11.5-15.5) % Plt Count (150-450) k/uL APTT (22.0-30.0) sec VBG pCO2 (37-51) mmHg VBG HCO3 (24-28) mmol/L Sodium (137-145) mmol/L Potassium 5.8 H (3.5-5.1) mmol/L Chloride (98-107) mmol/L BUN (7-17) mg/dL Creatinine (0.52-1.04) mg/dL Glucose (74-99) mg/dL POC Glucose (mg/dL) 182 H (70-110) mg/dL Albumin (3.5-5.0) g/dL Urine Protein (Negative) Urine Blood (Negative) Urine Bacteria (None) /hpf Urine Opiates Screen (NotDetected)
[2022-11-21 13:02] LABS: Glucose,Whole Blood 138 mg/dL (70-110)
[2022-11-21] MEDS ORDERED: ONDANSETRON 4 MG/2 ML VIAL IVP PRN (13:08)
[2022-11-21 13:56] LABS: Basophils # (A) 0.01 X 10*3/uL (0.00-0.10); Basophils % (A) 0.1 %; Eosinophils # (A) 0.03 X 10*3/uL (0.04-0.35); Eosinophils % (A) 0.4 %; HCT 36.8 % (37.2-46.3); HGB 11.4 g/dL (12.0-15.0); Immature Grans, Automated 0.4 %; Lymphocytes # (A) 2.16 X 10*3/uL (0.90-5.00); Lymphocytes % (A) 30.3 %; MCH 29.8 pg (27.0-32.0); MCV 96.3 fL (80.0-97.0); Mean Platelet Volume 10.6 fL (9.5-12.2); NRBC Per 100 WBC 0 /100 WBCS (0.0-0.0); Neutrophils # (A) 4.41 X 10*3/uL (1.80-7.70); Neutrophils % (A) 61.8 %; Platelet Count 146 X 10*3/uL (140-440); RBC 3.82 X 10*6/uL (4.10-5.20); RDW 15.9 % (11.5-14.5); WBC 7.14 X 10*3/uL (4.50-10.00)
[2022-11-21] MEDS: CALCIUM ACETATE 667 MG TAB PO SCH ×3 (14:31→17:37)
[2022-11-21] MEDS: LEVOTHYROXINE 88 MCG TAB PO SCH (14:31)
[2022-11-21] MEDS: CLOPIDOGREL 75 MG TAB PO SCH (14:32)
[2022-11-21] MEDS: FAMOTIDINE 20 MG TAB PO SCH (14:32)
[2022-11-21] MEDS: DULoxetine HCL 60 MG CAPSULE.DR PO SCH (14:32)
[2022-11-21] MEDS: allopurinoL 100 MG TAB PO SCH (14:32)
[2022-11-21] MEDS: INSULIN ASPART (NovoLOG) 100 UNIT/ML VIAL SQ SCH ×3 (14:33→22:40)
[2022-11-21] MEDS: ISOSORBIDE MONONITRATE ER 30 MG TAB.ER.24H PO SCH ×2 (14:33→21:59)
[2022-11-21] MEDS: amLODIPine 10 MG TAB PO SCH (14:33)
[2022-11-21] MEDS: FUROSEMIDE 20 MG TAB PO SCH ×2 (14:33→17:36)
--- NOTE | 2022-11-21 15:27 | P.CNNES ---
History of Present Illness Consult date: 11/21/22 Requesting physician: Nate Wheeler Reason for Consult: Altered mental status History of Present Illness: Patient is a 67-year-old female came to the hospital by ambulance yesterday at 5:01 PM for altered mental status. Patient at present not able to provide any history. As per EMS flow sheet, when they arrived, patient was laying in the bed. Staff mentioned that patient had a fall earlier in the morning. Staff stated that she did not hit her head or was injured due to the fall. Staff mentioned that patient has been lethargic throughout the day. Staff mentioned that patient did not go to her dialysis or eat lunch today. Patient's blood pressure at the scene was 153/92, pulse rate 70, respiration 18, saturation 96%, blood sugar 203. Blood test shows normal WBC, CBC, platelets 141, PT/PTT normal, sodium 132 potassium 5.3, BUN 79, creatinine 7.55, normal hepatic panel, troponin, ammonia, blood alcohol level negative. Urine drug screen positive for opiate. UA negative. CT head revealed no acute intracranial process. Some mild age- related atrophy may be present. Ankle x-ray revealed mild soft tissue swelling, no acute osseous abnormality. X-ray of the knee revealed no acute fractures bilateral knees. Right knee prosthesis. Right knee intrapatellar dense calcification. Chest x-ray showed no acute process. EKG shows sinus rhythm with first-degree AV block. Left axis deviation. Home medications include Singulair, levothyroxine, Lipitor 40 mg, vitamin D, aspirin 81 mg, Plavix 75 mg, Flonase, isosorbide, insulin, Cymbalta 60 mg, vitamin E, calcium, baclofen 5 mg every 8 hour, Colace, Lasix 20 mg, Coreg 12.5 mg, [place], Imodium, allopurinol, gabapentin 100 mg twice a day, lisinopril, guaifenesin calcium, Coreg, midodrine 5 mg 3 times a week, lisinopril 5 mg, Pepcid magnesium. I spoke to patient's ANTONY Gonzalez who states the patient has been in the half-way for last 1-1/2 years because she was having a lot of UTI, falls and she was noncompliant with appointments. Patient has tendency for frequent UTI and then she gets septic. Patient was "okay" on Saturday, but Saturday she apparently fell in the bathroom hurt her knee. She was alert at that time but then rapidly went downhill, then she couldn't talk or even keep her eyes open, that's why she was brought to the hospital. She did not undergo hemodialysis on Saturday because not feeling well. Patient mentally is very normal, although sometimes she is forgetful at times. No diagnosis of dementia. Patient had a stroke about 10 years ago but no significant deficits. Lisa states that the residual deficits from the stroke was that when she is very tired, her left foot drags. And when she is "super tired", she has some trouble finding words. Patient does have one child, but patient does not have any contact with her child for almost 4-5 years. Patient was admitted to [facility] for sepsis about 1-1/2 years ago, after the admission, she became wheelchair-bound. She never regained strength enough to walk by herself. She can walk with walker with one assist but not long distance. Patient can transfer in and out of the car with her friend without much difficulty and she does most of care by herself. She dresses by herself but requires some assistance with bathing and walking. Patient is on Cymbalta for fibromyalgia. Review of Systems ROS unobtainable: due to mental status Past Medical History Past Medical History: Asthma, Coronary Artery Disease (CAD), Cancer, Heart Failure, COPD, Diabetes Mellitus, GI Bleed, Hyperlipidemia, Hypertension, Myocardial Infarction ([place]), Osteoarthritis (OA), Pulmonary Embolus (PE), Renal Disease, Rheumatoid Arthritis (RA), Sleep Apnea/CPAP/BIPAP, Syncope, Thyroid Dis order Additional Past Medical History / Comment(s): IDDM type II ,uses cpap ., peripheral neuropathy bilateral hands/feet, CKD , UTIs, legally blind bilaterally-sees minimally, thyroid cancer with surgery, goiter, hashimotos, diverticular disease, 2014 upper and lower GI bleeds with blood loss anemia, gout, R humeral fracture with surgery., hx falls., hx left ankle fxs., H emodialysis // at [facility] in [place]., pt has chest port. , left forearm fistula., friend Shirley states patient can stand to transfer but uses wheelchair mostly, recen adm [facility]-malfunctioning dialysis catheter Last Myocardial Infarction Date:: 2009 History of Any Multi-Drug Resistant Organisms: VRE Date of last positivie culture/infection: 01/17/22 MDRO Source:: Urine Past Surgical History: Adenoidectomy, Back Surgery, Cholecystectomy, Heart Simran terization With Stent, Tonsillectomy Additional Past Surgical History / Comment(s): PCI with stent 2009 & 2019, low back surgery, total R shoulder and total R knee arthroplasties, bilateral hand trigger finger surgeries, EGD, colonoscopy, L eye laser eye surgery for bleed, t hyroidectomy.lt tib fib fx-plate and screws. lt arm Dialysis fistula Past Anesthesia/Blood Transfusion Reactions: No Reported Reaction Additional Past Anesthesia/Blood Transfusion Reaction / Comment(s): . Date of Last Stent Placement:: 2017 Past Psychological History: Anxiety, Depression Smoking Status: Never smoker Past Alcohol Use History: None Reported Past Drug Use History: None Reported - Past Family History Mother Family Medical History: Asthma, CVA/TIA, Seizure Disorder Additional Family Medical History / Comment(s): epilepsy Father Family Medical History: COPD, Diabetes Mellitus Additional Family Medical History / Comment(s): many heart problems Medications and Allergies Home Medications Medication Instructions Recorded Confirmed Type Levothyroxine Sodium [Synthroid] 175 mcg PO DAILY@0611/21/17 11/20/22 History Montelukast [Singulair] 10 mg PO HS@209911/21/17 11/20/22 History Atorvastatin [Lipitor] 40 mg PO HS@209909/08/20 11/20/22 History Cholecalciferol [Vitamin D3 (25 50 mcg PO DAILY@169912/09/20 11/20/22 History Mcg = 1000 Iu)] Acetaminophen Tab [Tylenol] 650 mg PO Q4H PRN 11/04/21 11/20/22 History Aspirin EC [Ecotrin Low Dose] 81 mg PO DAILY@169911/04/21 11/20/22 History Budesonide [Pulmicort] 0.5 mg INHALATION RT-BID@0700,1700 11/04/21 11/20/22 History Clopidogrel [Plavix] 75 mg PO DAILY@0811/04/21 11/20/22 History DULoxetine HCL [Cymbalta] 60 mg PO DAILY@0800 02/08/22 11/20/22 History Fluticasone Propionate 110 Mcg 2 puff INHALATION RT-BID PRN 02/08/22 11/20/22 Hi story [Flovent 110 Mcg Inhaler] Insulin Degludec [Tresiba] 20 units SQ HS@2130 02/08/22 11/20/22 History Isosorbide Mononitrate ER [Imdur] 30 mg PO BID@0800,1700 02/08/22 11/20/22 History Ondansetron [Zofran] 4 mg PO BID PRN 02/08/22 11/20/22 History Baclofen 5 mg PO Q8H PRN 04/12/22 11/20/22 History Calcium Acetate [PhosLo] 667 mg PO TUTHSA@1400 04/12/22 11/20/22 History Docusate [Colace] 100 mg PO BID@0800,1700 04/12/22 11/20/22 History Vitamin E Lotion 1 applic TOPICAL BID@0800,1700 04/12/22 11/20/22 History Furosemide [Lasix] 60 mg PO BID@0800,1700 08/06/22 11/20/22 History INSULIN LISPRO (HumaLOG) [humaLOG] See Protocol SQ ACHS 08/06/22 11/20/22 History carvediloL [Coreg] 12.5 mg PO SUMOWEFR@0800 08/06/22 11/20/22 History HYDROcodone/APAP 5-325MG [Austin 1 tab PO Q8H PRN #4 tab 08/10/22 11/20/22 Rx 5-325] Gabapentin [Neurontin] 100 mg PO BID@0800,2100 09/28/22 11/20/22 History Ipratropium-Albuterol Nebulize 3 ml INHALATION RT-Q6H PRN 09/28/22 11/20/22 History [Duoneb 0.5 mg-3 mg/3 ml Soln] Loperamide [Imodium] 2 mg PO QID PRN 09/28/22 11/20/22 History allopurinoL [Zyloprim] 100 mg PO DAILY@0800 09/28/22 11/20/22 History lisinopriL [Zestril] 5 mg PO SUMOWEFR@0800 09/28/22 11/20/22 History Calcium Acetate [PhosLo] 667 mg PO BID@0800,1800 10/30/22 11/20/22 History Calcium Acetate [PhosLo] 667 mg PO SUMOWEFR@1200 10/30/22 11/20/22 History Famotidine [Pepcid] 10 mg PO DAILY@0800 10/30/22 11/20/22 History Hydrocortisone Cream 1 applic TOPICAL BID PRN 10/30/22 11/20/22 History [Hydrocortisone 1% Cream] Interdry 10 1 applic TOPICAL BID@0800,2100 10/30/22 11/20/22 History Midodrine HCl 5 mg PO TUTHSA 10/30/22 11/20/22 History Renal Multivitamin Formula Tab 1 tab PO DAILY@1700 10/30/22 11/20/22 History bisacodyL [Dulcolax] 10 mg RECTAL DAILY PRN 10/30/22 11/20/22 History carvediloL [Coreg] 12.5 mg PO DAILY@1700 10/30/22 11/20/22 History guaiFENesin SYRUP 100MG/5ML 200 mg PO Q4H PRN 10/30/22 11/20/22 History [Robitussin] lisinopriL [Zestril] 5 mg PO DAILY@1700 10/30/22 11/20/22 History Magnesium Hydroxide [Milk of 7,200 mg PO Q48H PRN 11/20/22 11/20/22 History Magnesia Concentrate] Na Phos,M-B/Na Phos,Di-Ba [Fleet 133 ml RECTAL DAILY PRN 11/20/22 11/20/22 History Adult] Allergies Allergy/AdvReac Type Severity Reaction Status Date / Time No Known Allergies Allergy Verified 11/20/22 18:42 Physical Examination - Vital Signs Vital Signs: Vital Signs Temp Pulse Pulse Resp BP BP Pulse Ox 11/21/22 11:28 11/21/22 08:43 70 11/21/22 08:20 72 11/21/22 08:08 11/21/22 08:00 98 F 66 16 166/97 99 11/21/22 05:00 64 20 158/73 100 11/21/22 02:01 69 20 146/63 98 11/21/22 00:36 11/21/22 00:05 67 22 145/64 11/20/22 22:48 11/20/22 22:00 69 20 136/63 98 11/20/22 20:00 68 20 146/69 97 11/20/22 19:03 79 16 98 11/20/22 18:52 74 18 151/68 97 11/20/22 17:06 98.1 F 89 20 95 FiO2 11/21/22 11:28 21 11/21/22 08:43 11/21/22 08:20 11/21/22 08:08 21 11/21/22 08:00 11/21/22 05:00 11/21/22 02:01 11/21/22 00:36 21 11/21/22 00:05 11/20/22 22:48 21 11/20/22 22:00 11/20/22 20:00 11/20/22 19:03 11/20/22 18:52 11/20/22 17:06 Intake and Output 11/20/22 11/21/22 11/21/22 22:59 06:59 14:59 Other: Voiding Method Diaper Weight 113.398 kg Patient is an elderly female, who is obtunded. Patient is obtunded, keeps her eyes closed. Patient does not open her eyes. Patient moans slightly on painful stimuli, but was not speaking. After repeated attempts, patient did repeatedly say "yes" for asking any question, but did not say anything else. Attention, concentration is completely impaired and fund of knowledge cannot be assessed. On cranial nerve examination, pupils are equal, round and reacting to light. Gaze is midline. Visual luna cannot be tested. Face is symmetric, did not protrude her tongue. Lower cranial nerves cannot be tested. On muscle strength testing, patient did not cooperate with muscle strength testing. Tone is equal bilaterally. Patient grimaces and slightly moves on ángela nful stimuli equally with upper limbs. She slightly because her feet and moans equally with painful stimuli involving both lower limbs. Patient was able to wiggle her toes to commands very minimally. Deep tendon reflexes are absent and plantars are flat. Sensory to touch cannot be assessed, regarding painful stimuli, as above. Cerebellar function cannot be tested. Tone and bulk of muscles normal. Gait not able to be checked because of mental status On general examination, there is no carotid bruit or murmur, S1-S2 audible. Chest is clear on consultation. Abdomen is soft nontender. No organomegaly, bowel sounds present. Peripheral pulses are present. No edema. Results - Laboratory Findings CBC and BMP: 11/21/22 06:51 11/21/22 00:47 Abnormal Lab Findings: Abnormal Labs 11/20/22 11/20/22 11/20/22 17:17 18:43 18:43 RBC 3.69 L RDW 15.7 H Plt Count 141 L APTT 21.1 L VBG pCO2 VBG HCO3 Sodium Potassium Chloride BUN Creatinine Glucose POC Glucose (mg/dL) Albumin Urine Protein Trace H Urine Blood Small H Urine Bacteria Rare H Urine Opiates Screen Detected H 11/20/22 11/20/22 11/20/22 18:43 18:59 21:26 RBC RDW Plt Count APTT VBG pCO2 57 H VBG HCO3 30 H Sodium 132 L Potassium 5.3 H Chloride 93 L BUN 79 H Creatinine 7.55 H* Glucose 156 H POC Glucose (mg/dL) 133 H Albumin 3.1 L Urine Protein Urine Blood Urine Bacteria Urine Opiates Screen 11/21/22 11/21/22 00:47 10:08 RBC RDW Plt Count APTT VBG pCO2 VBG HCO3 Sodium Potassium 5.8 H Chloride BUN Creatinine Glucose POC Glucose (mg/dL) 182 H Albumin Urine Protein Urine Blood Urine Bacteria Urine Opiates Screen Assessment and Plan Assessment: * Altered mental status, likely due to toxic metabolic encephalopathy * End-stage renal disease on hemodialysis * Hyperkalemia * Mild hypercapnia with pCO2 57 * Mild hyponatremia * Hypertension * Hyperlipidemia * Diabetes * CAD * Polypharmacy * Mostly wheelchair-bound. Plan: * Patient is currently getting hemodialysis. No evidence of UTI or pneumonia. * EEG to evaluate for encephalopathy, rule out seizures. No previous history of seizures. * If mentation does not improve by tomorrow, we will consider repeating CT head. * Continue aspirin 81 mg, Plavix 75 mg and Lipitor 40 mg daily. * Neurology team will follow. * Dr. Pancho Hardy will resume his service in the morning. Thank you for the consult.
[2022-11-21] MEDS ORDERED: lisinopriL 5 MG TAB PO SCH (17:00)
[2022-11-21 17:01] LABS: African American GFR (CKD) 5.8 (60.0-200.0); Anion Gap 13.5 mmol/L (10.00-18.00); Calcium 9.4 mg/dL (8.7-10.3); Carbon Dioxide 23.9 mmol/L (20.0-27.5); Potassium 6.2 mmol/L (3.5-5.5)
[2022-11-21] MEDS: DOCUSATE 100 MG CAP PO SCH (17:37)
[2022-11-21] MEDS: ASPIRIN 81 MG PO SCH (17:37)
[2022-11-21] MEDS: CHOLECALCIFEROL 25 MCG (1000 IU) TABLET PO SCH (17:37)
[2022-11-21] MEDS: carvediloL 12.5 MG TAB PO SCH (17:37)
[2022-11-21 17:50] LABS: Glucose,Whole Blood 152 mg/dL (70-110)
[2022-11-21 18:27] LABS: African American GFR (CKD) 10 (>60 ml/min/1.73 sqM); Anion Gap 12 mmol/L; Blood Urea Nitrogen 45 mg/dL (7-17); Calcium 8.9 mg/dL (8.4-10.2); Carbon Dioxide 26 mmol/L (22-30); Chloride 94 mmol/L (98-107); Glucose 167 mg/dL (74-99); Non-African American GFR(CKD) 9 (>60 ml/min/1.73 sqM); Sodium 132 mmol/L (137-145)
[2022-11-21] MEDS: HEPARIN SODIUM,PORCINE/PF 5,000 UNIT/0.5 ML SYRINGE SQ SCH (18:59)
[2022-11-21] MEDS: MONTELUKAST 10 MG TAB PO SCH (21:59)
[2022-11-21] MEDS: ATORVASTATIN 40 MG TAB PO SCH (21:59)
[2022-11-21 22:42] LABS: Glucose,Whole Blood 167 mg/dL (70-110)
[2022-11-22] MEDS: HEPARIN SODIUM,PORCINE/PF 5,000 UNIT/0.5 ML SYRINGE SQ SCH ×4 (00:09→23:48)
[2022-11-22] MEDS: LEVOTHYROXINE 88 MCG TAB PO SCH ×2 (05:45→08:14)
[2022-11-22 06:05] LABS: Glucose,Whole Blood 168 mg/dL (70-110)
[2022-11-22] MEDS: INSULIN ASPART (NovoLOG) 100 UNIT/ML VIAL SQ SCH ×4 (06:13→20:37)
[2022-11-22] MEDS: IPRATROPIUM-ALBUTEROL 3 ML NEB INHALATION PRN (07:50)
[2022-11-22] MEDS: BUDESONIDE 0.5 MG/2 ML NEBU INHALATION SCH ×2 (07:51→19:41)
[2022-11-22] MEDS: CALCIUM ACETATE 667 MG TAB PO SCH ×3 (08:15→17:24)
[2022-11-22 11:45] LABS: African American GFR (CKD) 8.3 (60.0-200.0); Anion Gap 14.3 mmol/L (10.00-18.00); BUN/Creat Ratio 7.67 Ratio (12.00-20.00); Blood Urea Nitrogen 43.7 mg/dL (9.0-27.0); Calcium 9.6 mg/dL (8.7-10.3); Carbon Dioxide 25.7 mmol/L (20.0-27.5); Non-African American GFR(CKD) 7.2 (60.0-200.0); Potassium 6.3 mmol/L (3.5-5.5)
[2022-11-22 11:56] LABS: Glucose,Whole Blood 149 mg/dL (70-110)
--- NOTE | 2022-11-22 11:58 | P.PN ---
Subjective Patient is seen in follow-up for end-stage renal disease. She is maintained on hemodialysis on Saturday schedule. Potassium level high at this morning and she is currently undergoing hemodialysis. Blood pressure stable. Lisinopril discontinued. Awake. Somewhat confused. Vital signs are stable. General: No acute distress. HEENT: Head exam is unremarkable. LUNGS: No audible rhonchi or wheezes. HEART: Rate and Rhythm are regular. ABDOMEN: Nontender. EXTREMITITES: No edema. Objective - Vital Signs Vital signs: Vital Signs Temp 98.9 F 11/22/22 07:04 Pulse 76 11/22/22 07:59 Resp 17 11/22/22 07:04 BP 154/94 11/22/22 07:04 Pulse Ox 96 11/22/22 07:52 FiO2 21 11/22/22 07:52 Intake & Output 11/21/22 11/22/22 11/22/22 18:59 06:59 18:59 Intake Total 500 Output Total 2000 100 Balance -1500 -100 Weight 113.398 kg Intake: Hemodialysis 500 Output: Urine 100 Hemodialysis 2000 Other: Voiding Method Diaper External Catheter External Catheter # Voids 1 - Labs CBC & Chem 7: 11/21/22 06:51 11/22/22 06:24 Labs: Abnormal Lab Results - Last 24 Hours (Table) 11/21/22 11/21/22 11/21/22 Range/Units 06:51 06:51 13:02 RBC 3.82 L (4.10-5.20) X 10*6/uL Hgb 11.4 L (12.0-15.0) g/dL Hct 36.8 L (37.2-46.3) % MCHC 31.0 L (32.0-37.0) g/dL RDW 15.9 H (11.5-14.5) % Eosinophils # 0.03 L (0.04-0.35) X 10*3/uL Sodium 132 L (135-145) mmol/L Potassium 6.2 H* (3.5-5.5) mmol/L Chloride 95 L (96-109) mmol/L BUN 77.0 H (9.0-27.0) mg/dL Creatinine 7.7 H* (0.6-1.5) mg/dL Est GFR (CKD-EPI)AfAm 5.8 L (60.0-200.0) Est GFR (CKD-EPI)NonAf 5.0 L (60.0-200.0) BUN/Creatinine Ratio 10.00 L (12.00-20.00) Ratio Glucose 216 H (70-110) mg/dL POC Glucose (mg/dL) 138 H (70-110) mg/dL TSH (0.350-5.500) uIU/mL Free (T4) Reflex I (0.800-1.800) ng/dL 11/21/22 11/21/22 11/21/22 Range/Units 17:47 17:49 22:39 RBC (4.10-5.20) X 10*6/uL Hgb (12.0-15.0) g/dL Hct (37.2-46.3) % MCHC (32.0-37.0) g/dL RDW (11.5-14.5) % Eosinophils # (0.04-0.35) X 10*3/uL Sodium 132 L (135-145) mmol/L Potassium (3.5-5.5) mmol/L Chloride 94 L (96-109) mmol/L BUN 45 H (9.0-27.0) mg/dL Creatinine 4.90 H (0.6-1.5) mg/dL Est GFR (CKD-EPI)AfAm (60.0-200.0) Est GFR (CKD-EPI)NonAf (60.0-200.0) BUN/Creatinine Ratio (12.00-20.00) Ratio Glucose 167 H (70-110) mg/dL POC Glucose (mg/dL) 152 H 167 H (70-110) mg/dL TSH (0.350-5.500) uIU/mL Free (T4) Reflex I (0.800-1.800) ng/dL 11/22/22 11/22/22 Range/Units 05:57 06:24 RBC (4.10-5.20) X 10*6/uL Hgb (12.0-15.0) g/dL Hct (37.2-46.3) % MCHC (32.0-37.0) g/dL RDW (11.5-14.5) % Eosinophils # (0.04-0.35) X 10*3/uL Sodium (135-145) mmol/L Potassium 6.3 H* (3.5-5.5) mmol/L Chloride 95 L (96-109) mmol/L BUN 43.7 H (9.0-27.0) mg/dL Creatinine 5.7 H (0.6-1.5) mg/dL Est GFR (CKD-EPI)AfAm 8.3 L (60.0-200.0) Est GFR (CKD-EPI)NonAf 7.2 L (60.0-200.0) BUN/Creatinine Ratio 7.67 L (12.00-20.00) Ratio Glucose 168 H (70-110) mg/dL POC Glucose (mg/dL) 168 H (70-110) mg/dL TSH 0.064 L (0.350-5.500) uIU/mL Free (T4) Reflex I 1.840 H (0.800-1.800) ng/dL Assessment and Plan Plan: Assessment: 1. End-stage renal disease making on hemodialysis on Saturday schedule via a permacath. 2. Altered mental status. Unclear cause. Rule out infection. Ammonia level negative. Neurology following. 3. Hyperkalemia secondary to chronic kidney disease, missed dialysis and lisinopril. Expect improvement postdialysis. 4. Hypertension with chronic kidney disease. 5. Chronic kidney disease mineral bone disease maintained on PhosLo. Phosphorus 3.2. Plan: Currently seen while undergoing hemodialysis. Next treatment on Saturday. Follow-up cultures. Lisinopril discontinued. To follow-up with vascular surgery outpatient to assess upper extremity graft.
[2022-11-22] MEDS: allopurinoL 100 MG TAB PO SCH (12:27)
[2022-11-22] MEDS: DOCUSATE 100 MG CAP PO SCH ×2 (12:27→17:29)
[2022-11-22] MEDS: DULoxetine HCL 60 MG CAPSULE.DR PO SCH (12:28)
[2022-11-22] MEDS: amLODIPine 10 MG TAB PO SCH (12:28)
[2022-11-22] MEDS: FAMOTIDINE 20 MG TAB PO SCH (12:28)
[2022-11-22] MEDS: CLOPIDOGREL 75 MG TAB PO SCH (12:28)
[2022-11-22] MEDS: FUROSEMIDE 20 MG TAB PO SCH ×2 (12:30→17:28)
[2022-11-22] MEDS: ISOSORBIDE MONONITRATE ER 30 MG TAB.ER.24H PO SCH ×2 (12:31→20:38)
--- NOTE | 2022-11-22 12:52 | P.PN ---
Subjective Progress Note Date: 11/22/22 I ams seeing the patient during this admission for the first time. Please refer to Dr. Denise's note for further details. It seems patient has altered mental status and felt toxic-metabolic encephalopathy. Continues to be confused and pending EEG. Objective - Vital Signs Vital signs: Vital Signs Temp 98.9 F 11/22/22 07:04 Pulse 76 11/22/22 07:59 Resp 17 11/22/22 07:42 BP 154/94 11/22/22 07:04 Pulse Ox 96 11/22/22 07:52 FiO2 21 11/22/22 07:52 Intake & Output 11/21/22 11/22/22 11/22/22 18:59 06:59 18:59 Intake Total 500 Output Total 1999 100 Balance -1500 -100 Weight 113.398 kg Intake: Hemodialysis 500 Output: Urine 100 Hemodialysis 1999 Other: Voiding Method Diaper External Catheter External Catheter External Catheter # Voids 1 - Exam General: Does not appear in acute distress. Neuro: Limited because of cooperation. Is mildly to moderately drowsy but is awakeable to voice. She is oriented to se lf. Could not tell me place or time. She is slow responding. She is following few simple commands. Initially stated could not show thumbs on right hand up but all sudden was showing thumbs up and lifting right upper extremity above gravity. Unable to assess Visual field or EOM. No facial weakness. No dysarthria Motor: Strength is hard to assess individual muscles because of cooperation but was lifting all extremities above gravity. - Labs CBC & Chem 7: 11/21/22 06:51 11/22/22 06:24 Labs: Abnormal Lab Results - Last 24 Hours (Table) 11/21/22 11/21/22 11/21/22 Range/Units 06:51 06:51 13:02 RBC 3.82 L (4.10-5.20) X 10*6/uL Hgb 11.4 L (12.0-15.0) g/dL Hct 36.8 L (37.2-46.3) % MCHC 31.0 L (32.0-37.0) g/dL RDW 15.9 H (11.5-14.5) % Eosinophils # 0.03 L (0.04-0.35) X 10*3/uL Sodium 132 L (135-145) mmol/L Potassium 6.2 H* (3.5-5.5) mmol/L Chloride 95 L (96-109) mmol/L BUN 77.0 H (9.0-27.0) mg/dL Creatinine 7.7 H* (0.6-1.5) mg/dL Est GFR (CKD-EPI)AfAm 5.8 L (60.0-200.0) Est GFR (CKD-EPI)NonAf 5.0 L (60.0-200.0) BUN/Creatinine Ratio 10.00 L (12.00-20.00) Ratio Glucose 216 H (70-110) mg/dL POC Glucose (mg/dL) 138 H (70-110) mg/dL TSH (0.350-5.500) uIU/mL Free (T4) Reflex I (0.800-1.800) ng/dL 11/21/22 11/21/22 11/21/22 Range/Units 17:47 17:49 22:39 RBC (4.10-5.20) X 10*6/uL Hgb (12.0-15.0) g/dL Hct (37.2-46.3) % MCHC (32.0-37.0) g/dL RDW (11.5-14.5) % Eosinophils # (0.04-0.35) X 10*3/uL Sodium 132 L (135-145) mmol/L Potassium (3.5-5.5) mmol/L Chloride 94 L (96-109) mmol/L BUN 45 H (9.0-27.0) mg/dL Creatinine 4.90 H (0.6-1.5) mg/dL Est GFR (CKD-EPI)AfAm (60.0-200.0) Est GFR (CKD-EPI)NonAf (60.0-200.0) BUN/Creatinine Ratio (12.00-20.00) Ratio Glucose 167 H (70-110) mg/dL POC Glucose (mg/dL) 152 H 167 H (70-110) mg/dL TSH (0.350-5.500) uIU/mL Free (T4) Reflex I (0.800-1.800) ng/dL 06/01/23 06/01/23 06/01/23 Range/Units 05:57 06:24 11:54 RBC (4.10-5.20) X 10*6/uL Hgb (12.0-15.0) g/dL Hct (37.2-46.3) % MCHC (32.0-37.0) g/dL RDW (11.5-14.5) % Eosinophils # (0.04-0.35) X 10*3/uL Sodium (135-145) mmol/L Potassium 6.3 H* (3.5-5.5) mmol/L Chloride 95 L (96-109) mmol/L BUN 43.7 H (9.0-27.0) mg/dL Creatinine 5.7 H (0.6-1.5) mg/dL Est GFR (CKD-EPI)AfAm 8.3 L (60.0-200.0) Est GFR (CKD-EPI)NonAf 7.2 L (60.0-200.0) BUN/Creatinine Ratio 7.67 L (12.00-20.00) Ratio Glucose 168 H (70-110) mg/dL POC Glucose (mg/dL) 168 H 149 H (70-110) mg/dL TSH 0.064 L (0.350-5.500) uIU/mL Free (T4) Reflex I 1.840 H (0.800-1.800) ng/dL Microbiology - Last 24 Hours (Table) 11/21/22 01:55 Blood Culture - Preliminary Blood 11/21/22 01:55 Blood Culture - Preliminary Blood Assessment and Plan Assessment: * Altered mental status, likely due to toxic metabolic encephalopathy. Has abnormal thyroid * End-stage renal disease on hemodialysis * Abnormal thyroid * Hyperkalemia * Mild hypercapnia with pCO2 57 * Mild hyponatremia * Hypertension * Hyperlipidemia * Diabetes * CAD * Polypharmacy * Mostly wheelchair-bound. Plan: * B12 was 575, folate is more than 20. Ammonia <9. * TSH is 0.064 and the free T4 is 1.84. * Patient is currently getting hemodialysis. * Pending EEG to evaluate for encephalopathy, rule out seizures. No previous history of seizures. Currently unable to obtain EEG since dialysis but once completed will pursue with testing. * Will obtain repeat CT head. * On aspirin 81 mg, Plavix 75 mg and Lipitor 40 mg daily. * Has abnormal thyroid. Will defer the rest of medical management to primary team. Plan is discussed with her nurse. Neurology team will follow. Time with Patient: Less than 30
[2022-11-22] MEDS ORDERED: CALCIUM ACETATE 667 MG TAB PO SCH (14:00)
[2022-11-22] MEDS: PANTOPRAZOLE 40 MG/10 ML VIAL IVP SCH (14:22)
--- NOTE | 2022-11-22 14:36 | CT ---
EXAMINATION TYPE: CT brain wo con DATE OF EXAM: 11/22/2022 COMPARISON: 11/20/2022 HISTORY: 67-year-old female confusion, Altered mental status. TECHNIQUE: Examination was done in axial plane without intravenous contrast. Coronal and sagittal r econstructions performed. CT DLP: 1100.4 mGycm Automated exposure control for dose reduction was used. FINDINGS: There is no evidence of acute intracranial hemorrhage, acute ischemic changes, mass, mass-effect, or extra-axial fluid collection. There is no effacement of cerebral sulci or basal subarachnoid cister ns. There is no hydrocephalus. There is no midline shift. East-white matter distinction is preserv ed. Atherosclerotic calcifications in the carotid siphons. Slight leftward nasal septal deviations. Paran marita sinuses and mastoid air cells well pneumatized. Orbits and globes are intact. IMPRESSION: No acute intracranial abnormality seen.
[2022-11-22 16:33] LABS: Glucose,Whole Blood 155 mg/dL (70-110)
[2022-11-22] MEDS: ASPIRIN 81 MG PO SCH (17:28)
[2022-11-22] MEDS: carvediloL 12.5 MG TAB PO SCH (17:28)
[2022-11-22] MEDS: CHOLECALCIFEROL 25 MCG (1000 IU) TABLET PO SCH (17:28)
[2022-11-22] MEDS: MONTELUKAST 10 MG TAB PO SCH (20:37)
[2022-11-22] MEDS: ATORVASTATIN 40 MG TAB PO SCH (20:38)
[2022-11-22 20:40] LABS: Glucose,Whole Blood 140 mg/dL (70-110)
[2022-11-23 01:41] VITALS: RESP 18
[2022-11-23 05:29] LABS: Glucose,Whole Blood 141 mg/dL (70-110)
[2022-11-23] MEDS: LEVOTHYROXINE 88 MCG TAB PO SCH (06:44)
[2022-11-23] MEDS: CALCIUM ACETATE 667 MG TAB PO SCH ×4 (06:44→16:46)
[2022-11-23] MEDS: BUDESONIDE 0.5 MG/2 ML NEBU INHALATION SCH (07:36)
[2022-11-23] MEDS: INSULIN ASPART (NovoLOG) 100 UNIT/ML VIAL SQ SCH ×2 (08:24→12:19)
[2022-11-23] MEDS: DOCUSATE 100 MG CAP PO SCH ×2 (09:43→16:45)
[2022-11-23] MEDS: ISOSORBIDE MONONITRATE ER 30 MG TAB.ER.24H PO SCH (09:43)
[2022-11-23] MEDS: CLOPIDOGREL 75 MG TAB PO SCH (09:43)
[2022-11-23] MEDS: FAMOTIDINE 20 MG TAB PO SCH (09:43)
[2022-11-23] MEDS: amLODIPine 10 MG TAB PO SCH (09:43)
[2022-11-23] MEDS: DULoxetine HCL 60 MG CAPSULE.DR PO SCH (09:43)
[2022-11-23] MEDS: allopurinoL 100 MG TAB PO SCH (09:44)
--- NOTE | 2022-11-23 09:46 | P.PN ---
Subjective Progress Note Date: 11/22/22 67-year-old female admitted for altered mental status. Patient is hemodialysis yesterday became more and more altered. Patient is on multiple medications that the will be Related in her body particularly female more dialysis was not done which includes baclofen, gabapentin Stevens, which I'm holding at this point of time patient will is undergoing dialysis patient is bit more awake now. Unable to get much of the history from the patient. As no evidence of infection at this time. Patient barely urinates. 11/22/2022 Patient is seen and evaluated and follow-up with nephrology and neurology foll owing. Patient continues to be somewhat confused although mentation is improving. Discussed with power of claim attorney today in detail about missed dialysis and importance of dialysis compliance along with many medications that can cause altered mental status. Patient with elevated potassium yesterday as well as today and will follow-up with repeat labs in the evening after dialysis. Lisinopril also discontinued. Patient did have elevated blood pressure during dialysis although per nursing staff patient did not receive any blood pressure medications this morning. Patient is a resident at [facility] and will be returning there with possible discharge in 24 hours. Neurology following an EEG is ordered and pending as patient was undergoing dialysis and repeat CT of the brain was ordered. Review of systems: Constitutional: No reports of fatigue, fever, or chills Cardiovascular: No reports of chest pain or palpitations Respiratory: No reports of shortness of breath or cough GI: No reports of nausea, vomiting, or diarrhea : No reports of dysuria or retention Neurovascular: reports of generalized weakness All medications have been reviewed PHYSICAL EXAMINATION: GENERAL: Obese, more awake today alert and oriented 2 not back to baseline, morbidly obese, well-nourished HEENT: Pupils are round and equally reacting to light. EOMI. No scleral icterus. No conjunctival pallor. Normocephalic, atraumatic. No pharyngeal erythema. No thyromegaly. CARDIOVASCULAR: S1 and S2 present. No murmurs, rubs, or gallops. PULMONARY: Chest is clear to auscultation, no wheezing or crackles. ABDOMEN: Soft, obese, nontender, nondistended, normoactive bowel sounds. No palpable organomegaly. MUSCULOSKELETAL: No joint swelling or deformity. EXTREMITIES: No cyanosis, clubbing, or pedal edema. NEUROLOGICAL: He could, alert and oriented 2 SKIN: No rashes. Assessment: -Altered mental status: Secondary to missing hemodialysis as well as toxic/metabolic encephalopathy due to medications including gabapentin, Stevens, baclofen. which are being held at this time. -End Stage renal disease, hemodialysis dependent -Hyponatremia: Secondary to end-stage renal disease -Hyperkalemia secondary to lisinopril and end-stage renal disease -hypertension -Type 2 diabetes mellitus, uncontrolled with hyper and hypoglycemia diabetic diet and sliding scale insulin for now -Hyperlipidemia -History of PE in the past -Sleep apnea -Hypothyroidism -DVT prophylaxis: Subcutaneous heparin -GI prophylaxis -Full code Plan: Recommend continue with neurology and nephrology following. CT brain ordered with no acute process noted an EEG is ordered and pending. Patient was receiving hemodialysis and unable to attempt EEG. Patient does continue with some confusion although mentation is improving from yesterday and patient is more awake and alert today. Blood pressure uncontrolled and elevated secondary to not receiving medications this morning Potassium elevated at 6.3 secondary to missed hemodialysis and will follow-up with repeat labs in the evening and correct as needed Patient to continue on Saturday//Saturday hemodialysis schedule. Patient is a resident at [facility] and will be returning there once discharged. Probable discharge in 24 hours The impression and plan of care has been dictated by Tamia Li, Nurse Practitioner as directed. Dr. Mireya MD I have performed a history and examination and MDM of this patient, discussed the same with the dictator, and agree with the dictator's assessment and plan as written ,documented as a scribe. Based on total visit time, I have performed more than 50% of the visit. Objective - Vital Signs Vital signs: Vital Signs Temp 98.9 F 11/22/22 07:04 Pulse 76 11/22/22 07:59 Resp 17 11/22/22 07:04 BP 154/94 11/22/22 07:04 Pulse Ox 96 11/22/22 07:52 FiO2 21 11/22/22 07:52 Intake & Output 11/21/22 11/22/22 11/22/22 18:59 06:59 18:59 Intake Total 500 Output Total 1999 100 Balance -1500 -100 Weight 113.398 kg Intake: Hemodialysis 500 Output: Urine 100 Hemodialysis 2000 Other: Voiding Method Diaper External Catheter External Catheter # Voids 1 - Labs CBC & Chem 7: 11/21/22 06:51 11/22/22 19:56 Labs: Abnormal Lab Results - Last 24 Hours (Table) 11/21/22 11/21/22 11/21/22 Range/Units 06:51 06:51 10:08 RBC 3.82 L (4.10-5.20) X 10*6/uL Hgb 11.4 L (12.0-15.0) g/dL Hct 36.8 L (37.2-46.3) % MCHC 31.0 L (32.0-37.0) g/dL RDW 15.9 H (11.5-14.5) % Eosinophils # 0.03 L (0.04-0.35) X 10*3/uL Sodium 132 L (135-145) mmol/L Potassium 6.2 H* (3.5-5.5) mmol/L Chloride 95 L (96-109) mmol/L BUN 77.0 H (9.0-27.0) mg/dL Creatinine 7.7 H* (0.6-1.5) mg/dL Est GFR (CKD-EPI)AfAm 5.8 L (60.0-200.0) Est GFR (CKD-EPI)NonAf 5.0 L (60.0-200.0) BUN/Creatinine Ratio 10.00 L (12.00-20.00) Ratio Glucose 216 H (70-110) mg/dL POC Glucose (mg/dL) 182 H (70-110) mg/dL 11/21/22 11/21/22 11/21/22 Range/Units 13:02 17:47 17:49 RBC (4.10-5.20) X 10*6/uL Hgb (12.0-15.0) g/dL Hct (37.2-46.3) % MCHC (32.0-37.0) g/dL RDW (11.5-14.5) % Eosinophils # (0.04-0.35) X 10*3/uL Sodium 132 L (135-145) mmol/L Potassium (3.5-5.5) mmol/L Chloride 94 L (96-109) mmol/L BUN 45 H (9.0-27.0) mg/dL Creatinine 4.90 H (0.6-1.5) mg/dL Est GFR (CKD-EPI)AfAm (60.0-200.0) Est GFR (CKD-EPI)NonAf (60.0-200.0) BUN/Creatinine Ratio (12.00-20.00) Ratio Glucose 167 H (70-110) mg/dL POC Glucose (mg/dL) 138 H 152 H (70-110) mg/dL 11/21/22 11/22/22 Range/Units 22:39 05:57 RBC (4.10-5.20) X 10*6/uL Hgb (12.0-15.0) g/dL Hct (37.2-46.3) % MCHC (32.0-37.0) g/dL RDW (11.5-14.5) % Eosinophils # (0.04-0.35) X 10*3/uL Sodium (135-145) mmol/L Potassium (3.5-5.5) mmol/L Chloride (96-109) mmol/L BUN (9.0-27.0) mg/dL Creatinine (0.6-1.5) mg/dL Est GFR (CKD-EPI)AfAm (60.0-200.0) Est GFR (CKD-EPI)NonAf (60.0-200.0) BUN/Creatinine Ratio (12.00-20.00) Ratio Glucose (70-110) mg/dL POC Glucose (mg/dL) 167 H 168 H (70-110) mg/dL
[2022-11-23] MEDS: HEPARIN SODIUM,PORCINE/PF 5,000 UNIT/0.5 ML SYRINGE SQ SCH ×2 (09:47→15:14)
[2022-11-23] MEDS: PANTOPRAZOLE 40 MG/10 ML VIAL IVP SCH (09:47)
[2022-11-23] MEDS: FUROSEMIDE 20 MG TAB PO SCH (09:47)
--- NOTE | 2022-11-23 10:52 | P.PN ---
Subjective Patient is seen in follow-up for end-stage renal disease. She is maintained on hemodialysis on Saturday schedule. No problems with dialysis yesterday. Potassium improved postdialysis. Blood pressure stable. Lisinopril discontinued. Vital signs are stable. General: No acute distress. HEENT: Head exam is unremarkable. LUNGS: No audible rhonchi or wheezes. HEART: Rate and Rhythm are regular. ABDOMEN: Nontender. EXTREMITITES: No edema. Objective - Vital Signs Vital signs: Vital Signs Temp 98.1 F 11/23/22 07:02 Pulse 96 11/23/22 07:02 Resp 18 11/23/22 07:02 BP 138/84 11/23/22 07:02 Pulse Ox 95 11/23/22 07:37 FiO2 21 11/22/22 19:50 Intake & Output 11/22/22 11/23/22 11/23/22 18:59 06:59 18:59 Intake Total 700 Output Total 2200 Balance -1500 Intake: Hemodialysis 700 Output: Hemodialysis 2200 Other: Voiding Method External Catheter Diaper # Voids 0 0 - Labs CBC & Chem 7: 11/21/22 06:51 11/22/22 19:56 Labs: Abnormal Lab Results - Last 24 Hours (Table) 11/22/22 11/22/22 11/22/22 Range/Units 06:24 06:24 11:54 Potassium 6.3 H* (3.5-5.5) mmol/L Chloride 95 L (96-109) mmol/L BUN 43.7 H (9.0-27.0) mg/dL Creatinine 5.7 H (0.6-1.5) mg/dL Est GFR (CKD-EPI)AfAm 8.3 L (60.0-200.0) Est GFR (CKD-EPI)NonAf 7.2 L (60.0-200.0) BUN/Creatinine Ratio 7.67 L (12.00-20.00) Ratio Glucose 168 H (70-110) mg/dL POC Glucose (mg/dL) 149 H (70-110) mg/dL TSH 0.064 L (0.350-5.500) uIU/mL Free T4 2.98 H (0.78-2.19) ng/dL Free (T4) Reflex I 1.840 H (0.800-1.800) ng/dL 11/22/22 11/22/22 11/23/22 Range/Units 16:31 20:36 05:26 Potassium (3.5-5.5) mmol/L Chloride (96-109) mmol/L BUN (9.0-27.0) mg/dL Creatinine (0.6-1.5) mg/dL Est GFR (CKD-EPI)AfAm (60.0-200.0) Est GFR (CKD-EPI)NonAf (60.0-200.0) BUN/Creatinine Ratio (12.00-20.00) Ratio Glucose (70-110) mg/dL POC Glucose (mg/dL) 155 H 140 H 141 H (70-110) mg/dL TSH (0.350-5.500) uIU/mL Free T4 (0.78-2.19) ng/dL Free (T4) Reflex I (0.800-1.800) ng/dL Microbiology - Last 24 Hours (Table) 11/21/22 01:55 Blood Culture - Preliminary Blood 11/21/22 01:55 Blood Culture - Preliminary Blood Assessment and Plan Plan: Assessment: 1. End-stage renal disease making on hemodialysis on Saturday schedule via a permacath. 2. Altered mental status. Unclear cause. Rule out infection. Ammonia level negative. Neurology following. 3. Hyperkalemia secondary to chronic kidney disease, missed dialysis and lisinopril. Improved postdialysis. 4. Hypertension with chronic kidney disease. 5. Chronic kidney disease mineral bone disease maintained on PhosLo. Phospho hannah 3.2. Plan: Hemodialysis tomorrow. Follow-up cultures. Lisinopril discontinued. To follow-up with vascular surgery outpatient to assess upper extremity graft.
[2022-11-23 11:22] LABS: Glucose,Whole Blood 161 mg/dL (70-110)
[2022-11-23] MEDS ORDERED: INSULIN REGULAR 100 UNIT/ML VIAL (IV) IV ONE (13:46)
[2022-11-23] MEDS ORDERED: DEXTROSE 50% SYRINGE 50 ML IVP STA (13:46)
[2022-11-23] MEDS ORDERED: CALCIUM GLUCONATE IN NACL 1 GM in SALINE 1 100ML.BAG IVPB ONE (13:47)
--- NOTE | 2022-11-23 13:56 | P.DS ---
Providers Date of admission: 11/20/22 20:44 Expected date of discharge: 11/23/22 Attending physician: José Miguel Pineda MD Consults: 11/20/22 20:41 Consult Physician Routine Consulting Provider: Pablo Anderson Consult Reason/Comments: dialysis Do you want consulting provider notified?: Yes Consult Physician Routine Consulting Provider: Ade Denise Consult Reason/Comments: Altered mental status Do you want consulting provider notified?: Yes Primary care physician: Cristiano East Hospital Course: Final diagnosis -Altered mental status: Secondary to missing hemodialysis as well as toxic/metabolic encephalopathy due to medications including gabapentin, Van [place]ren, baclofen. which are being held at this time. -End Stage renal disease, hemodialysis dependent -Hyponatremia: Secondary to end-stage renal disease -Hyperkalemia secondary to lisinopril and end-stage renal disease -hypertension -Type 2 diabetes mellitus, uncontrolled with hyper and hypoglycemia diabetic diet and sliding scale insulin for now -Hyperlipidemia -History of PE in the past -Sleep apnea -Hypothyroidism -DVT prophylaxis: Subcutaneous heparin -GI prophylaxis -Full code Discharge disposition Patient is being discharged in a stable condition with guarded prognosis to [facility]. Patient will follow-up with Dr. East in the outpatient setting upon discharge. Patient is to continue with hemodialysis as scheduled on Saturday//Saturday and tomorrow being her next session. Total time taken is greater than 35 minutes. Hospital course This is a 67-year-old female who was recently admitted with missed hemodialysis and end-stage renal disease Saturday//Saturday and also toxic metabolic encephalopathy with confusion as patient had been taking Van Buren's and gabapentin baclofen. These medications continue to be on hold and recommend to continue holding. Mentation is improving although patient continues with some confusion but much improved from admission. Patient has received hemodialysis with nephrology following and follow-up potassium today is 5.2. Strongly recommend diabetic renal diet with low potassium only and follow-up labs in the next few days. Patient is being given a dose of dextrose along with IV insulin and calcium gluconate and recommend follow-up labs in the next 2-3 days. Patient to follow-up with nephrology as well as vascular surgery outpatient. Patient is a diabetic and recommend Accu-Cheks before meals and at bedtime as well as diabetic diet along with renal diet and low potassium. Currently no reports of chest pain, shortness of breath, or palpitations. Patient is afebrile. No reports of nausea or vomiting and patient is tolerating diet. Patient will be going to [facility] today. Physical exam: Gen: This is a 67-year-old female who is awake, alert and oriented 2, well- developed, well-nourished, morbidly obese HEENT: Head is atraumatic, normocephalic. Pupils equal, round. Sclerae is anicteric. NECK: Supple. No JVD. No lymphadenopathy. No thyromegaly. LUNGS: Clear to auscultation. No wheezes or rhonchi. No intercostal retractions. HEART: Regular rate and rhythm. No murmur. ABDOMEN: Soft. Obese. Bowel sounds are present. No masses. No tenderness. EXTREMITIES: No pedal edema. No calf tenderness. NEUROLOGICAL: Patient is awake, alert and oriented x2. Cranial nerves 2 through 12 are grossly intact. Diffusely weak Please refer to medication reconciliation sheet for a list of medications. The impression and plan of care has been dictated by Tamia Li, Nurse Practitioner as directed. Dr. Mireya MD I have performed a history and examination and MDM of this patient, discussed the same with the dictator, and agree with the dictator's assessment and plan as written ,documented as a scribe. Based on total visit time, I have performed more than 50% of the visit. Patient Condition at Discharge: Stable Plan - Discharge Summary Discharge Rx Participant: Yes New Discharge Prescriptions: New amLODIPine [Norvasc] 10 mg PO DAILY tab Continue Montelukast [Singulair] 10 mg PO HS@2100 Levothyroxine Sodium [Synthroid] 175 mcg PO DAILY@0600 Atorvastatin [Lipitor] 40 mg PO HS@2100 Cholecalciferol [Vitamin D3 (25 Mcg = 1000 Iu)] 50 mcg PO DAILY@1700 Acetaminophen Tab [Tylenol] 650 mg PO Q4H PRN PRN Reason: Fever And/ Or Pain Aspirin EC [Ecotrin Low Dose] 81 mg PO DAILY@1700 Budesonide [Pulmicort] 0.5 mg INHALATION RT-BID@0700,1700 Clopidogrel [Plavix] 75 mg PO DAILY@0800 Ondansetron [Zofran] 4 mg PO BID PRN PRN Reason: Nausea Isosorbide Mononitrate ER [Imdur] 30 mg PO BID@0800,1700 Fluticasone Propionate 110 Mcg [Flovent 110 Mcg Inhaler] 2 puff INHALATION RT-BID PRN PRN Reason: Shortness Of Breath Docusate [Colace] 100 mg PO BID@0800,1700 allopurinoL [Zyloprim] 100 mg PO DAILY@0800 Loperamide [Imodium] 2 mg PO QID PRN PRN Reason: Diarrhea guaiFENesin SYRUP 100MG/5ML [Robitussin] 200 mg PO Q4H PRN PRN Reason: Cough Calcium Acetate [PhosLo] 667 mg PO BID@0800,1800 carvediloL [Coreg] 12.5 mg PO DAILY@1700 Magnesium Hydroxide [Milk of Magnesia Concentrate] 7,200 mg PO Q48H PRN PRN Reason: Constipation Na Phos,M-B/Na Phos,Di-Ba [Fleet Adult] 133 ml RECTAL DAILY PRN PRN Reason: Constipation Insulin Degludec [Tresiba] 20 units SQ HS@2130 DULoxetine HCL [Cymbalta] 60 mg PO DAILY@0800 Vitamin E Lotion 1 applic TOPICAL BID@0800,1700 Calcium Acetate [PhosLo] 667 mg PO TUTHSA@1400 INSULIN LISPRO (HumaLOG) [humaLOG] See Protocol SQ ACHS Furosemide [Lasix] 60 mg PO BID@0800,1700 carvediloL [Coreg] 12.5 mg PO SUMOWEFR@0800 Ipratropium-Albuterol Nebulize [Duoneb 0.5 mg-3 mg/3 ml Soln] 3 ml INHALATION RT-Q6H PRN PRN Reason: Shortness Of Breath Hydrocortisone Cream [Hydrocortisone 1% Cream] 1 applic TOPICAL BID PRN PRN Reason: Rash bisacodyL [Dulcolax] 10 mg RECTAL DAILY PRN PRN Reason: Constipation Renal Multivitamin Formula Tab 1 tab PO DAILY@1700 Calcium Acetate [PhosLo] 667 mg PO SUMOWEFR@1200 Midodrine HCl 5 mg PO TUTHSA Famotidine [Pepcid] 10 mg PO DAILY@0800 Interdry 10 1 applic TOPICAL BID@0800,2100 Discontinued Gabapentin [Neurontin] 100 mg PO BID@0800,2100 Baclofen 5 mg PO Q8H PRN PRN Reason: MUSCLE SPASMS HYDROcodone/APAP 5-325MG [[place] 5-325] 1 tab PO Q8H PRN #4 tab PRN Reason: Pain lisinopriL [Zestril] 5 mg PO SUMOWEFR@0800 lisinopriL [Zestril] 5 mg PO DAILY@1700 Discharge Medication List Levothyroxine Sodium [Synthroid] 175 mcg PO DAILY@0611/21/17 [History] Montelukast [Singulair] 10 mg PO HS@209911/21/17 [History] Atorvastatin [Lipitor] 40 mg PO HS@209909/08/20 [History] Cholecalciferol [Vitamin D3 (25 Mcg = 1000 Iu)] 50 mcg PO DAILY@17012/09/20 [History] Acetaminophen Tab [Tylenol] 650 mg PO Q4H PRN 11/04/21 [History] Aspirin EC [Ecotrin Low Dose] 81 mg PO DAILY@169911/04/21 [History] Budesonide [Pulmicort] 0.5 mg INHALATION RT-BID@0700,1700 11/04/21 [History] Clopidogrel [Plavix] 75 mg PO DAILY@0811/04/21 [History] DULoxetine HCL [Cymbalta] 60 mg PO DAILY@0800 02/08/22 [History] Fluticasone Propionate 110 Mcg [Flovent 110 Mcg Inhaler] 2 puff INHALATION RT- BID PRN 02/08/22 [History] Insulin Degludec [Tresiba] 20 units SQ HS@21302/08/22 [History] Isosorbide Mononitrate ER [Imdur] 30 mg PO BID@0800,1700 02/08/22 [History] Ondansetron [Zofran] 4 mg PO BID PRN 02/08/22 [History] Calcium Acetate [PhosLo] 667 mg PO TUTHSA@1400 04/12/22 [History] Docusate [Colace] 100 mg PO BID@0800,1700 04/12/22 [History] Vitamin E Lotion 1 applic TOPICAL BID@0800,1700 04/12/22 [History] Furosemide [Lasix] 60 mg PO BID@0800,1700 02/13/23 [History] INSULIN LISPRO (HumaLOG) [humaLOG] See Protocol SQ ACHS 08/06/22 [History] carvediloL [Coreg] 12.5 mg PO SUMOWEFR@0800 08/06/22 [History] Ipratropium-Albuterol Nebulize [Duoneb 0.5 mg-3 mg/3 ml Soln] 3 ml INHALATION RT-Q6H PRN 09/28/22 [History] Loperamide [Imodium] 2 mg PO QID PRN 09/28/22 [History] allopurinoL [Zyloprim] 100 mg PO DAILY@0800 09/28/22 [History] Calcium Acetate [PhosLo] 667 mg PO BID@0800,1800 10/30/22 [History] Calcium Acetate [PhosLo] 667 mg PO SUMOWEFR@1200 10/30/22 [History] Famotidine [Pepcid] 10 mg PO DAILY@0800 10/30/22 [History] Hydrocortisone Cream [Hydrocortisone 1% Cream] 1 applic TOPICAL BID PRN 10/30/22 [History] Interdry 10 1 applic TOPICAL BID@0800,2100 10/30/22 [History] Midodrine HCl 5 mg PO TUTHSA 10/30/22 [History] Renal Multivitamin Formula Tab 1 tab PO DAILY@169910/30/22 [History] bisacodyL [Dulcolax] 10 mg RECTAL DAILY PRN 10/30/22 [History] carvediloL [Coreg] 12.5 mg PO DAILY@169910/30/22 [History] guaiFENesin SYRUP 100MG/5ML [Robitussin] 200 mg PO Q4H PRN 10/30/22 [History] Magnesium Hydroxide [Milk of Magnesia Concentrate] 7,200 mg PO Q48H PRN 11/20/22 [History] Na Phos,M-B/Na Phos,Di-Ba [Fleet Adult] 133 ml RECTAL DAILY PRN 11/20/22 [History] amLODIPine [Norvasc] 10 mg PO DAILY tab 11/23/22 [Rx] Follow up Appointment(s)/Referral(s): Cristiano East MD [Primary Care Provider] - 1 Week Ambulatory/Diagnostic Orders: Basic Metabolic Panel [LAB.AMB] Time Frame: 3 Days, Location: None Selected Activity/Diet/Wound Care/Special Instructions: Patient is returning to Activity as tolerated Continue dialysis Saturday//Saturday Continue current medications If patient is becoming more lethargic and altered recommend holding any MEDICAL CHARGE ENTRY SPECIALIST or narcotic agents Recommend diabetic, renal diet with low potassium Recommend follow-up labs in 2-3 days of CBC and BMP Discharge Disposition: TRANSFER TO SNF/ECF
[2022-11-23 14:43] VITALS: BP 148/82; PULSE 101; TEMP 98.6
[2022-11-23] MEDS: ASPIRIN 81 MG PO SCH (16:45)
[2022-11-23] MEDS: CHOLECALCIFEROL 25 MCG (1000 IU) TABLET PO SCH (16:45)
[2022-11-23] MEDS: carvediloL 12.5 MG TAB PO SCH (16:45)
--- NOTE | 2022-11-23 17:58 | EEG ---
ELECTROENCEPHALOGRAM REPORT CLINICAL HISTORY: This is a 67-year-old woman with altered mental status. The video EEG is obtained to evaluate for seizure and epileptiform discharges. RELEVANT MEDICATION: The patient is not on any antiepileptic drugs. EEG TYPE: A routine 21-channel EEG is performed with video using the 10/20 electrode placement system. DESCRIPTION: Wakefulness is only obtained. During awake state, the background consists of 6.5 to 7 Hz activity. There is no physiological stage II sleep architecture. There is no focal slowing. INTERICTAL AND ICTAL: None. ACTIVATION PROCEDURE: Photic stimulation and hyperventilation are not performed. CLINICAL INTERPRETATION: This is an abnormal routine EEG. The background slowing is suggestive of mild encephalopathy. Otherwise, there is no focal slowing, epileptiform discharge, or seizure on the EEG. Clinical correlation is recommended. MARYELLEN / PRISCILLA: [id number] / [id number]
== END 2022-11-23 18:50 | DRG 91 ==
LOC: EC 17:01 → 4SSUR 20:44
PROVIDERS: ADMIT Internal Medicine; ATTEND Internal Medicine
PROC: 5A1D70Z Performance of Urinary Filtration, Intermittent, Less than 6 Hours Per Day (ICD-10-PCS; principal; 2022-11-21)
DX: G92.8 Other toxic encephalopathy (principal); N18.6 End stage renal disease; E87.1 Hypo-osmolality and hyponatremia; Z68.41 Body mass index [BMI] 40.0-44.9, adult; E11.22 Type 2 diabetes mellitus with diabetic chronic kidney disease; J44.9 Chronic obstructive pulmonary disease, unspecified; M06.9 Rheumatoid arthritis, unspecified; E66.01 Morbid (severe) obesity due to excess calories; E06.3 Autoimmune thyroiditis; E87.8 Other disorders of electrolyte and fluid balance, not elsewhere classified; E89.0 Postprocedural hypothyroidism; E78.5 Hyperlipidemia, unspecified; E87.5 Hyperkalemia; I44.0 Atrioventricular block, first degree; I44.7 Left bundle-branch block, unspecified; R06.89 Other abnormalities of breathing; G47.30 Sleep apnea, unspecified; H54.8 Legal blindness, as defined in USA; I25.10 Atherosclerotic heart disease of native coronary artery without angina pectoris; M79.7 Fibromyalgia; M89.8X9 Other specified disorders of bone, unspecified site; T46.4X5A Adverse effect of angiotensin-converting-enzyme inhibitors, initial encounter; W19.XXXA Unspecified fall, initial encounter; Z99.2 Dependence on renal dialysis; Z79.4 Long term (current) use of insulin; Z96.651 Presence of right artificial knee joint; E11.42 Type 2 diabetes mellitus with diabetic polyneuropathy; E11.649 Type 2 diabetes mellitus with hypoglycemia without coma; T40.2X5A Adverse effect of other opioids, initial encounter; T42.6X5A Adverse effect of other antiepileptic and sedative-hypnotic drugs, initial encounter; T42.8X5A Adverse effect of antiparkinsonism drugs and other central muscle-tone depressants, initial encounter; E11.65 Type 2 diabetes mellitus with hyperglycemia; Y92.129 Unspecified place in nursing home as the place of occurrence of the external cause; Z91.158 Patient's noncompliance with renal dialysis for other reason; Z79.899 Other long term (current) drug therapy; Z79.891 Long term (current) use of opiate analgesic; Z79.82 Long term (current) use of aspirin; Z79.02 Long term (current) use of antithrombotics/antiplatelets; Z79.890 Hormone replacement therapy; Z86.711 Personal history of pulmonary embolism; Z99.3 Dependence on wheelchair; Z95.5 Presence of coronary angioplasty implant and graft; I25.2 Old myocardial infarction; Z85.850 Personal history of malignant neoplasm of thyroid; Z87.19 Personal history of other diseases of the digestive system; Z83.3 Family history of diabetes mellitus
CPT/HCPCS: 36415; 70450; 71045; 80048; 80053; 80306; 80320; 81001; 82140; 82607; 82746; 82803; 83921; 84100; 84132; 84439; 84443; 84484; 85025; 85610; 85730; 87040; 87635; 90935; 93005; 94640; 94660; 94760; 95816; 96374; 99291

== ENCOUNTER 2023-02-21 08:12 | Day surgery (SDC) | payer MEDICARE, OTHER ==
[2023-02-21] MEDS ORDERED: SODIUM CHLORIDE 0.9% 1,000 ML IV ONE (08:45)
[2023-02-21 08:49] LABS: Basophils % (A) 0 %; Eosinophils # (A) 0.2 k/uL (0-0.7); Eosinophils % (A) 3 %; HCT 36.5 % (34.0-46.0); HGB 11.9 gm/dL (11.4-16.0); Hypochromasia Slight; Lymphocytes % (A) 33 %; MCH 31.9 pg (25.0-35.0); MCHC 32.6 g/dL (31.0-37.0); MCV 97.8 fL (80.0-100.0); Mean Platelet Volume 8.3; Monocytes # (A) 0.4 k/uL (0-1.0); Monocytes % (A) 5 %; Neutrophils # (A) 5.2 k/uL (1.3-7.7); Neutrophils % (A) 58 %; Platelet Count 202 k/uL (150-450); RBC 3.73 m/uL (3.80-5.40); RDW 14.2 % (11.5-15.5); WBC 8.9 k/uL (3.8-10.6)
[2023-02-21 08:51] LABS: Glucose,Whole Blood 113 mg/dL (70-110)
[2023-02-21 10:02] LABS: African American GFR (CKD) 7 (>60 ml/min/1.73 sqM); Anion Gap 10 mmol/L; Blood Urea Nitrogen 55 mg/dL (7-17); Calcium 9.5 mg/dL (8.4-10.2); Carbon Dioxide 32 mmol/L (22-30); Chloride 95 mmol/L (98-107); Glucose 122 mg/dL (74-99); Non-African American GFR(CKD) 6 (>60 ml/min/1.73 sqM); Sodium 137 mmol/L (137-145)
[2023-02-21] MEDS ORDERED: LIDOCAINE 1% INJ 10MG/ML (20 ML MDV) ONE (10:13)
[2023-02-21] MEDS ORDERED: ALTEPLASE 10 MG in SODIUM CHLORIDE 0.9% 50 ML MISCELLANE ONE (10:20)
[2023-02-21] MEDS ORDERED: fentaNYL (PF) 50 MCG/ML 2 ML AMP ONE (10:26)
[2023-02-21] MEDS ORDERED: MIDAZOLAM 2 MG/2 ML VIAL IVP ONE (10:34)
[2023-02-21] MEDS ORDERED: LIDOCAINE 1% INJ 10MG/ML (5 ML VIAL-PF) SQ ONE (10:36)
[2023-02-21] MEDS ORDERED: fentaNYL (PF) 50 MCG/ML 2 ML AMP IVP ONE (10:37)
[2023-02-21 10:40] LABS: Potassium 6.1 mmol/L (3.5-5.1)
[2023-02-21] MEDS ORDERED: IOPAMIDOL-250 100ML BTL INTRAARTER ONE (11:30)
--- NOTE | 2023-02-21 12:05 | P.HPIHPCON ---
History of Present Illness H&P Date: 02/21/23 Yocasta is a 67-year-old female with end-stage renal disease on dialysis had an occlusion of her left upper extremity loop forearm graft. She presented today for fistulogram and potential opening of the graft. She states it has been working well without any issue, her last dialysis was Saturday Consent for Procedure: I have explained the operation/procedure to the patient, including the risks, benefits, side effects, alternative therapies (including not receiving the proposed treatment or service), the likelihood of the patient achieving his/her goals, and potential recuperation problems for the procedure/sedation/analgesia, as well as any blood products, if indicated. I also explained to the patient the risks, benefits and side effects of the alternatives, as well as the risks related to not receiving the proposed procedure, care, treatment, or services. 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 , left forearm fistula., friend Shirley states patient can stand to transfer but uses wheelchair mostly, November Admission 2022 for [facility]-malfunctioning dialysis catheter. Last Myocardial Infarction Date:: 2009 History of Any Multi-Drug Resistant Organisms: VRE Date of last positivie culture/infection: 01/17/22 MDRO Source:: Urine Past Surgical History: Adenoidectomy, Back Surgery, Cholecystectomy, Heart Catheterization With Stent, Tonsillectomy Additional Past Surgical History / Comment(s): PCI with stent 2009 & 2019, low back surgery, total R shoulder and total R knee arthroplasties, bilateral hand trigger finger surgeries, EGD, colonoscopy, L eye laser eye surgery for bleed, thyroidectomy(2 surgeries total to remove all of thyroid).lt tib fib fx-plate and screws. lt arm Dialysis fistula,heart stents x2,heart cath x2 Past Anesthesia/Blood Transfusion Reactions: No Reported Reaction, Motion Sickness Additional Past Anesthesia/Blood Transfusion Reaction / Comment(s): no hx blood transfusion Date of Last Stent Placement:: 2009,2018 Smoking Status: Never smoker - Past Family History Mother Family Medical History: Asthma, CVA/TIA, Seizure Disorder Additional Family Medical History / Comment(s): epilepsy,pt states "mom had 21 strokes) Father Family Medical History: COPD, Diabetes Mellitus Additional Family Medical History / Comment(s): many heart problems Medications and Allergies Home Medications Medication Instructions Recorded Confirmed Type Levothyroxine Sodium [Synthroid] 175 mcg PO QAM 11/21/17 02/21/23 History Montelukast [Singulair] 10 mg PO HS@2100 11/21/17 02/21/23 History Atorvastatin [Lipitor] 40 mg PO HS@2100 09/08/20 02/21/23 History Cholecalciferol [Vitamin D3 (25 50 mcg PO DAILY@1700 12/09/20 02/21/23 History Mcg = 1000 Iu)] Acetaminophen Tab [Tylenol] 650 mg PO Q4H PRN 11/04/21 02/21/23 History Aspirin EC [Ecotrin Low Dose] 81 mg PO DAILY@1700 11/04/21 02/21/23 History Budesonide [Pulmicort] 0.5 mg INHALATION RT-BID@0700,1700 11/04/21 02/21/23 History Clopidogrel [Plavix] 75 mg PO DAILY@0800 11/04/21 02/21/23 History DULoxetine HCL [Cymbalta] 60 mg PO DAILY@0800 02/08/22 02/21/23 History Fluticasone Propionate 110 Mcg 2 puff INHALATION RT-BID PRN 02/08/22 02/21/23 History [Flovent 110 Mcg Inhaler] Insulin Degludec [Tresiba] 20 units SQ HS@2130 02/08/22 02/21/23 History Isosorbide Mononitrate ER [Imdur] 30 mg PO BID@0800,1700 02/08/22 02/21/23 History Ondansetron [Zofran] 4 mg PO BID PRN 02/08/22 02/21/23 History Calcium Acetate [PhosLo] 667 mg PO TUTHSA@1400 04/12/22 02/21/23 History Vitamin E Lotion 1 applic TOPICAL BID@0800,1700 04/12/22 02/21/23 History Furosemide [Lasix] 60 mg PO BID@0800,1700 08/06/22 02/21/23 History carvediloL [Coreg] 12.5 mg PO SUMOWEFR@0800 08/06/22 02/21/23 History Ipratropium-Albuterol Nebulize 3 ml INHALATION RT-Q6H PRN 09/28/22 02/21/23 History [Duoneb 0.5 mg-3 mg/3 ml Soln] Loperamide [Imodium] 2 mg PO QID PRN 09/28/22 02/21/23 History allopurinoL [Zyloprim] 100 mg PO DAILY@0800 09/28/22 02/21/23 History Calcium Acetate [PhosLo] 667 mg PO BID-W/MEALS 10/30/22 02/21/23 History Calcium Acetate [PhosLo] 667 mg PO SUMOWEFR@1200 10/30/22 02/21/23 History Famotidine [Pepcid] 10 mg PO DAILY@0800 10/30/22 02/21/23 History Hydrocortisone Cream 1 applic TOPICAL BID PRN 10/30/22 02/21/23 History [Hydrocortisone 1% Cream] Interdry 10 1 applic TOPICAL BID@0800,2100 10/30/22 02/21/23 History Midodrine HCl 5 mg PO TUTHSA 10/30/22 02/21/23 History Renal Multivitamin Formula Tab 1 tab PO DAILY@1700 10/30/22 02/21/23 History bisacodyL [Dulcolax] 10 mg RECTAL DAILY PRN 10/30/22 02/21/23 History carvediloL [Coreg] 12.5 mg PO DAILY@1700 10/30/22 02/21/23 History guaiFENesin SYRUP 100MG/5ML 200 mg PO Q4H PRN 10/30/22 02/21/23 History [Robitussin] Na Phos,M-B/Na Phos,Di-Ba [Fleet 133 ml RECTAL DAILY PRN 11/20/22 02/21/23 History Adult] 1500ml Fluid Restriction 1,500 ml PO TID 12/31/22 02/21/23 History Gabapentin [Neurontin] 100 mg PO QAM 12/31/22 02/21/23 History Gabapentin [Neurontin] 200 mg PO HS 12/31/22 02/21/23 History HYDROcodone/APAP 5-325MG [[place] 1 tab PO Q8H PRN 12/31/22 02/21/23 History 5-325] Insulin Aspart [NovoLOG] 0 units SQ ACHS PRN 12/31/22 02/21/23 History Sennosides-Docusate Sodium 1 tab PO BID 12/31/22 02/21/23 History [Senokot-S] amLODIPine [Norvasc] 10 mg PO QAM 12/31/22 02/21/23 History Allergies Allergy/AdvReac Type Severity Reaction Status Date / Time No Known Allergies Allergy Verified 02/21/23 09:46 Surgical - Exam Vital Signs Temp Pulse Resp BP Pulse Ox 98.1 F 80 18 143/73 96 02/21/23 08:44 02/21/23 08:44 02/21/23 08:44 02/21/23 08:44 02/21/23 08:44 Gen. is a pleasant cooperative female in no acute distress. Heart appears. Lungs are clear. Abdomen soft. Thrombosed left upper extremity loop forearm graft. Radial signal, multiphasic Results - Labs 02/21/23 08:30 02/21/23 08:30 Abnormal Lab Results - Last 24 Hours (Table) 02/21/23 02/21/23 02/21/23 Range/Units 08:30 08:30 08:40 RBC 3.73 L (3.80-5.40) m/uL Potassium 6.1 H* (3.5-5.1) mmol/L Chloride 95 L (98-107) mmol/L Carbon Dioxide 32 H (22-30) mmol/L BUN 55 H (7-17) mg/dL Creatinine 6.55 H (0.52-1.04) mg/dL Glucose 122 H (74-99) mg/dL POC Glucose (mg/dL) 113 H (70-110) mg/dL Diabetes panel 02/21/23 Range/Units 08:30 Sodium 137 (137-145) mmol/L Potassium 6.1 H* (3.5-5.1) mmol/L Chloride 95 L (98-107) mmol/L Carbon Dioxide 32 H (22-30) mmol/L BUN 55 H (7-17) mg/dL Creatinine 6.55 H (0.52-1.04) mg/dL Glucose 122 H (74-99) mg/dL Calcium 9.5 (8.4-10.2) mg/dL Calcium panel 02/21/23 Range/Units 08:30 Calcium 9.5 (8.4-10.2) mg/dL Pituitary panel 02/21/23 Range/Units 08:30 Sodium 137 (137-145) mmol/L Potassium 6.1 H* (3.5-5.1) mmol/L Chloride 95 L (98-107) mmol/L Carbon Dioxide 32 H (22-30) mmol/L BUN 55 H (7-17) mg/dL Creatinine 6.55 H (0.52-1.04) mg/dL Glucose 122 H (74-99) mg/dL Calcium 9.5 (8.4-10.2) mg/dL Adrenal panel 02/21/23 Range/Units 08:30 Sodium 137 (137-145) mmol/L Potassium 6.1 H* (3.5-5.1) mmol/L Chloride 95 L (98-107) mmol/L Carbon Dioxide 32 H (22-30) mmol/L BUN 55 H (7-17) mg/dL Creatinine 6.55 H (0.52-1.04) mg/dL Glucose 122 H (74-99) mg/dL Calcium 9.5 (8.4-10.2) mg/dL Assessment and Plan Assessment: End-stage renal disease, thrombosed graft Plan: Plan for a fistulogram with pharmacal mechanical thrombectomy
--- NOTE | 2023-02-21 12:11 | P.OP ---
Date of Procedure: 02/21/23 Description of Procedure: Preoperative diagnosis: Thrombosed left forearm loop graft Postoperative diagnosis: Same stenosis at the arterial inflow. Procedure: Ultrasound-guided AV graft access 2 Fistulogram Pharmacal mechanical thrombectomy with 6-Liberian AngioJet Percutaneous transluminal balloon angioplasty of the inflow 5 x 40, 5 x 40 drug- coated balloon Moderate conscious sedation 59 minutes, personal monitoring certified RN administration with hemodynamic monitoring Surgeon: Shara Roper D.O. EBL: Less than 10 mL IV fluids: See records Urine output: Not measured Drains: None Complications: None immediately apparent Condition: Stable to recovery Operative indication and findings: Patient is a 67-year-old female with a loop graft from left upper arm who was unable to get dialysis on Saturday due to thrombosis of the graft. Her last dialysis was Saturday. She states her were no issues. She presents for fistulogram and intervention She seemingly understands the plan is willing to proceed. Procedure in detail: Patient was taken to the special suite and placed in supine position. Left upper extremity is prepped and draped in usual sterile fashion. A preprocedure timeout was performed, all parties were in agreement. Using ultrasound, initially in the outflow direction, the graft was accessed. Permanent images stored. Catheters and wires were utilized passed into the outflow vein and venogram was performed showing no evidence of obvious stenosis area catheter was then drawn back until the level of the outflow anastomosis which did appear to be thrombosed. Wire was then replaced and a 6-Liberian AngioJet was passed with TPA pulsation for pharmacal thrombolysis. Dwelling time was allowed and during this time, access was obtained towards the inflow direction. Again using ultrasound the graft was cannulated and a 6-Liberian sheath was placed. Catheters and wires were placed into the brachial artery and images performed showing patent arterial vasculature with a patent radial artery, no obvious visualized ulnar artery. That point the arterial inflow was treated with TPA pulsation for pharmacal thrombolysis. While this was dwelling, the suction thrombectomy portion was performed of the outflow. Following this outflow imaging was performed. There was no obvious areas of stenosis. There was good flow through. Good washing of contrast. Attention was then turned towards the inflow. Suction thrombectomy was performed. An angiogram via the brachial artery was performed showing continuous flow through the entirety of the graft with moderate stenosis of the arterial anastomosis. 5 x 40 balloon was utilized to angioplasty this inflow area followed by 5 x 40 drug-coated balloon. Repeat images performed, there was significant improvement of flow through the graft with resolution of the stenosis. There appeared to be adequate pulse to the graft with flow throughout. Final imaging was performed showing continued improvement of the outflow anastomosis. At that point catheters and wires were removed. The sheath was removed and [id number] sutures were placed at each site. Dressings were placed the patient was allowed awaken from her sedation and transferred to recovery in stable condition having tolerated her procedure well.
[2023-02-21] MEDS ORDERED: IPRATROPIUM-ALBUTEROL 3 ML NEB INHALATION PRN (13:59)
[2023-02-21] MEDS ORDERED: ONDANSETRON 4 MG TAB PO PRN (13:59)
[2023-02-21] MEDS ORDERED: LOPERAMIDE 2 MG CAP PO PRN (13:59)
[2023-02-21] MEDS ORDERED: HYDROCORTISONE 1% CREAM 30 GM TUBE TOPICAL PRN (13:59)
[2023-02-21] MEDS ORDERED: ACETAMINOPHEN TAB 325 MG TAB PO PRN (13:59)
[2023-02-21] MEDS ORDERED: guaiFENesin SYRUP 100MG/5ML 200 MG/10 ML CUP PO PRN (13:59)
[2023-02-21] MEDS ORDERED: NA PHOS,M-B/NA PHOS,DI-BA 133 ML ENEMA RECTAL PRN (13:59)
[2023-02-21] MEDS ORDERED: FLUTICASONE 110 MCG INHALER INHALATION PRN (13:59)
[2023-02-21] MEDS ORDERED: HYDROcodone/APAP 5-325MG 1 EACH TAB PO PRN (13:59)
[2023-02-21] MEDS ORDERED: bisacodyL 10 MG SUPP RECTAL PRN (13:59)
[2023-02-21] MEDS ORDERED: CALCIUM ACETATE 667 MG TAB PO SCH (14:00)
[2023-02-21] MEDS ORDERED: DEXTROSE 50% SYRINGE 50 ML IVP PRN ×2 (14:07)
--- NOTE | 2023-02-21 14:20 | IR ---
EXAMINATION TYPE: IR fistula/abscess/sinus tract DATE OF EXAM: 02/21/2023 COMPARISON: NONE HISTORY: Fluoroscopy time. Fluoroscopy was provided to the referring clinician.
[2023-02-21] MEDS ORDERED: MIDODRINE 5 MG TAB PO SCH (14:30)
[2023-02-21] MEDS ORDERED: SODIUM ZIRCONIUM CYCLOSILICATE 10 GM PACKET PO ONE (14:30)
--- NOTE | 2023-02-21 14:54 | P.HPIM ---
History of Present Illness H&P Date: 02/21/23 This is a 67-year-old female who was brought in from an F facility where she resides under vascular surgery services Dr. Roper and underwent TPA thrombectomy with fistulogram for a thrombosed graft on the left as patient is maintained on hemodialysis Saturday//Saturday for end-stage renal disease. Patient follows with Dr. East in the outpatient setting with a past medical history ast hma, coronary artery disease, CVA/TIA, heart failure, COPD, diabetes mellitus, GI bleeds, hyperlipidemia, hypertension, myocardial infarctions, osteoarthritis, pulmonary embolisms, renal disease with end-stage renal disease on dialysis, rheumatoid arthritis, sleep apnea he, anxiety/depression, hypothyroidism. Patient was never a smoker and denies illicit drug use or alcohol use. Patient is currently residing at [facility]. Preop labs displayed a potassium of 6.1 and there was some noted and T-wave changes on telemetry monitoring post- procedure and Dr. Roper like the patient monitored overnight with correction of potassium and nephrology consult. Review Of Systems: Constitutional: No fever, no chills, no night sweats. No weight change. No weakness, fatigue or lethargy. No daytime sleepiness. EENT: No headache. No blurred vision or double vision, no loss of vision. No loss of Hearing, no ringing in the ears, no dizziness. No nasal drainage or congestion. No epistaxis. No sore throat. Lungs: No shortness of breath, cough, no sputum production. No wheezing. Cardiovascular: No chest pain, no lower extremity edema. No palpitations. No paroxysmal nocturnal dyspnea. No orthopnea. No lightheadedness or dizziness. No syncopal episodes. Abdominal: No abdominal pain. No nausea, vomiting. No diarrhea. No constipation. No bloody or tarry stools.. No loss of appetite. Genitourinary: No dysuria, increased frequency, urgency. No urinary retention. Musculoskeletal: No myalgias. No muscle weakness, no gait dysfunction, no frequent falls. No back pain. No neck pain. Integumentary: No wounds, no lesions. No rash or pruritus. No unusual bruising. No change in hair or nails. Neurologic: No aphasia. No facial droop. No change in mentation. No head injury. No headache. No paralysis. No paresthesia. Psychiatric: No depression. No anxiety. No mood swings. Endocrine: No abnormal blood sugars. No weight change. No excessive sweating or thirst. No cold intolerance. PHYSICAL EXAMINATION: GENERAL: The patient is alert and oriented x4, Well developed, well nourished. Morbidly obese HEENT: Pupils are round and equally reacting to light. EOMI. no scleral icterus. No conjunctival pallor. Normocephalic, atraumatic. No pharyngeal erythema. No thyromegaly. CARDIOVASCULAR: S1 and S2 muffled right chest wall port dialysis catheter noted PULMONARY: diminished breath sounds bilaterally with no wheezing or rhonchi noted. ABDOMEN: soft. Nontender on exam. obese. non-distended, normoactive bowel sounds. No palpable organomegaly. MUSCULOSKELETAL: No joint swelling or deformity. EXTREMITIES: No cyanosis, clubbing, or pedal edema. Left AV fistula with surgical bandages dry and intact with no bleeding or oozing noted NEUROLOGICAL: Gross neurological examination did not reveal any focal deficits. Diffuse weakness SKIN: No rashes. Assessment: Status post fistulogram for a left thrombosed loop graft dialysis fistula status post medication induced thrombectomy End-stage renal disease maintained on dialysis Saturday//Saturday Hyperkalemia with potassium of 6.1 History of asthma/COPD, not an exacerbation Coronary artery disease history history of anxiety/depression Heart failure history CVA/TIA history Diabetes mellitus History of GI bleeds Hyperlipidemia Hypertension History of osteoarthritis Pulmonary embolism history History of rheumatoid arthritis History of sleep apnea uses a BiPAP GI prophylaxis DVT prophylaxis Full code Plan: patient was admitted under vascular surgery services outpatient today for fistulogram and underwent medication induced tPA thrombectomy for left AV loop graft that was thrombosed Patient maintained on hemodialysis Saturday//Saturday and maintained on aspirin and Plavix and will discuss with vascular surgery about resuming Patient tolerated the procedure well although had a preoperative potassium of 6.1 and there was some noted T-wave changes on telemetry during postop and Dr. Roper recommended monitoring overnight with hemodialysis needed and correction of the potassium nephrology consulted and pending potassium 6.1 and will obtain EKG as well as give a dose of lokelma and follow- up with repeat labs Patient will be returning to [facility] where she resides on discharge and will discuss further with case management about discharge planning Patient is a diabetic and recommend consistent carb diet with renal diet and low potassium. Sliding scale added and will continue with Accu-Cheks before meals and at bedtime The impression and plan of care has been dictated by Tamia Li, nurse practitioner as directed. Dr. Mireya MD I have performed a history and examination and MDM of this patient, discussed the same with the dictator, and agree with the dictator's assessment and plan as written ,documented as a scribe. Based on total visit time, I have performed more than 50% of the visit. Any additional findings or plans will be noted. 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 , left forearm fistula., friend Shirley states patient can stand to transfer but uses wheelchair mostly, November Admission 2022 for [facility]- malfunctioning dialysis catheter. Last Myocardial Infarction Date:: 2009 History of Any Multi-Drug Resistant Organisms: VRE Date of last positivie culture/infection: 01/17/22 MDRO Source:: Urine Past Surgical History: Adenoidectomy, Back Surgery, Cholecystectomy, Heart Catheterization With Stent, Tonsillectomy Additional Past Surgical History / Comment(s): PCI with stent 2009 & 2018, low back surgery, total R shoulder and total R knee arthroplasties, bilateral hand trigger finger surgeries, EGD, colonoscopy, L eye laser eye surgery for bleed, thyroidectomy(2 surgeries total to remove all of thyroid).lt tib fib fx-plate and screws. lt arm Dialysis fistula,heart stents x2,heart cath x2 Past Anesthesia/Blood Transfusion Reactions: No Reported Reaction, Motion Sickness Additional Past Anesthesia/Blood Transfusion Reaction / Comment(s): no hx blood transfusion Date of Last Stent Placement:: Smoking Status: Never smoker - Past Family History Mother Family Medical History: Asthma, CVA/TIA, Seizure Disorder Additional Family Medical History / Comment(s): epilepsy,pt states "mom had 21 strokes) Father Family Medical History: COPD, Diabetes Mellitus Additional Family Medical History / Comment(s): many heart problems Medications and Allergies Home Medications Medication Instructions Recorded Confirmed Type Levothyroxine Sodium [Synthroid] 175 mcg PO QAM 11/21/17 02/21/23 History Montelukast [Singulair] 10 mg PO HS@2100 11/21/17 02/21/23 History Atorvastatin [Lipitor] 40 mg PO HS@2100 09/08/20 02/21/23 History Cholecalciferol [Vitamin D3 (25 50 mcg PO DAILY@1700 12/09/20 02/21/23 History Mcg = 1000 Iu)] Acetaminophen Tab [Tylenol] 650 mg PO Q4H PRN 11/04/21 02/21/23 History Aspirin EC [Ecotrin Low Dose] 81 mg PO DAILY@17011/04/21 02/21/23 History Budesonide [Pulmicort] 0.5 mg INHALATION RT-BID@0700,1700 11/04/21 02/21/23 History Clopidogrel [Plavix] 75 mg PO DAILY@0800 11/04/21 02/21/23 History DULoxetine HCL [Cymbalta] 60 mg PO DAILY@0802/08/22 02/21/23 History Fluticasone Propionate 110 Mcg 2 puff INHALATION RT-BID PRN 02/08/22 02/21/23 History [Flovent 110 Mcg Inhaler] Insulin Degludec [Tresiba] 20 units SQ HS@2130 02/08/22 02/21/23 History Isosorbide Mononitrate ER [Imdur] 30 mg PO BID@0800,1700 02/08/22 02/21/23 History Ondansetron [Zofran] 4 mg PO BID PRN 02/08/22 02/21/23 History Calcium Acetate [PhosLo] 667 mg PO TUTHSA@1400 04/12/22 02/21/23 History Vitamin E Lotion 1 applic TOPICAL BID@0800,1700 04/12/22 02/21/23 History Furosemide [Lasix] 60 mg PO BID@0800,1700 08/06/22 02/21/23 History carvediloL [Coreg] 12.5 mg PO SUMOWEFR@0800 08/06/22 02/21/23 History Ipratropium-Albuterol Nebulize 3 ml INHALATION RT-Q6H PRN 09/28/22 02/21/23 History [Duoneb 0.5 mg-3 mg/3 ml Soln] Loperamide [Imodium] 2 mg PO QID PRN 09/28/22 02/21/23 History allopurinoL [Zyloprim] 100 mg PO DAILY@0800 09/28/22 02/21/23 History Calcium Acetate [PhosLo] 667 mg PO BID-W/MEALS 10/30/22 02/21/23 History Calcium Acetate [PhosLo] 667 mg PO SUMOWEFR@1200 10/30/22 02/21/23 History Famotidine [Pepcid] 10 mg PO DAILY@0800 10/30/22 02/21/23 History Hydrocortisone Cream 1 applic TOPICAL BID PRN 10/30/22 02/21/23 History [Hydrocortisone 1% Cream] Interdry 10 1 applic TOPICAL BID@0800,2100 10/30/22 02/21/23 History Midodrine HCl 5 mg PO TUTHSA 10/30/22 02/21/23 History Renal Multivitamin Formula Tab 1 tab PO DAILY@1700 10/30/22 02/21/23 History bisacodyL [Dulcolax] 10 mg RECTAL DAILY PRN 10/30/22 02/21/23 History carvediloL [Coreg] 12.5 mg PO DAILY@1700 10/30/22 02/21/23 History guaiFENesin SYRUP 100MG/5ML 200 mg PO Q4H PRN 10/30/22 02/21/23 History [Robitussin] Na Phos,M-B/Na Phos,Di-Ba [Fleet 133 ml RECTAL DAILY PRN 11/20/22 02/21/23 History Adult] 1500ml Fluid Restriction 1,500 ml PO TID 12/31/22 02/21/23 History Gabapentin [Neurontin] 100 mg PO QAM 12/31/22 02/21/23 History Gabapentin [Neurontin] 200 mg PO HS 12/31/22 02/21/23 History HYDROcodone/APAP 5-325MG [[place] 1 tab PO Q8H PRN 12/31/22 02/21/23 History 5-325] Insulin Aspart [NovoLOG] 0 units SQ ACHS PRN 12/31/22 02/21/23 History Sennosides-Docusate Sodium 1 tab PO BID 12/31/22 02/21/23 History [Senokot-S] amLODIPine [Norvasc] 10 mg PO QAM 12/31/22 02/21/23 History Allergies Allergy/AdvReac Type Severity Reaction Status Date / Time No Known Allergies Allergy Verified 02/21/23 09:46 Physical Exam Vitals: Vital Signs Temp Pulse Pulse Resp BP Pulse Ox 02/21/23 12:25 81 18 140/66 96 02/21/23 12:10 76 18 156/62 96 02/21/23 11:55 77 18 133/63 96 02/21/23 08:44 98.1 F 80 18 143/73 96 Intake and Output 02/20/23 02/21/23 02/21/23 22:59 06:59 14:59 Intake Total 300 Balance 300 Intake: IV 300 Other: Weight 0 g 113.4 kg Results CBC & Chem 7: 02/21/23 08:30 02/21/23 08:30 Labs: Abnormal Lab Results - Last 24 Hours (Table) 02/21/23 02/21/23 02/21/23 Range/Units 08:30 08:30 08:40 RBC 3.73 L (3.80-5.40) m/uL Potassium 6.1 H* (3.5-5.1) mmol/L Chloride 95 L (98-107) mmol/L Carbon Dioxide 32 H (22-30) mmol/L BUN 55 H (7-17) mg/dL Creatinine 6.55 H (0.52-1.04) mg/dL Glucose 122 H (74-99) mg/dL POC Glucose (mg/dL) 113 H (70-110) mg/dL
[2023-02-21 16:16] LABS: Glucose,Whole Blood 142 mg/dL (70-110)
[2023-02-21] MEDS: INSULIN ASPART (NovoLOG) 100 UNIT/ML VIAL SQ SCH ×2 (17:23→23:07)
[2023-02-21] MEDS: carvediloL 12.5 MG TAB PO SCH (17:33)
[2023-02-21] MEDS: FUROSEMIDE 20 MG TAB PO SCH (17:34)
[2023-02-21] MEDS: CHOLECALCIFEROL 25 MCG (1000 IU) TABLET PO SCH (17:34)
[2023-02-21] MEDS: FOLIC ACID-VIT B COMPLEX-VIT C 1 CAP PO SCH (17:35)
[2023-02-21] MEDS: MINERAL OIL-WHITE PETROLATUM 120 GM JAR TOPICAL SCH (17:35)
[2023-02-21] MEDS: ISOSORBIDE MONONITRATE ER 30 MG TAB.ER.24H PO SCH (17:35)
[2023-02-21] MEDS: CALCIUM ACETATE 667 MG TAB PO SCH (17:36)
[2023-02-21] MEDS: BUDESONIDE 0.5 MG/2 ML NEBU INHALATION SCH (19:51)
[2023-02-21 19:59] LABS: Glucose,Whole Blood 157 mg/dL (70-110)
[2023-02-21] MEDS ORDERED: INTERDRY TOPICAL SCH (21:00)
[2023-02-21] MEDS ORDERED: GABAPENTIN 100 MG CAP PO SCH (21:00)
[2023-02-21] MEDS ORDERED: MONTELUKAST 10 MG TAB PO SCH (21:00)
[2023-02-21] MEDS ORDERED: ATORVASTATIN 40 MG TAB PO SCH (21:00)
[2023-02-21] MEDS ORDERED: INSULIN DETEMIR (LEVEMIR) 100 UNIT/ML SYR SQ SCH (21:30)
[2023-02-22] MEDS: SENNOSIDES-DOCUSATE SODIUM 1 EACH TAB PO SCH ×2 (00:28→08:45)
[2023-02-22 05:57] LABS: Glucose,Whole Blood 106 mg/dL (70-110)
[2023-02-22] MEDS: INSULIN ASPART (NovoLOG) 100 UNIT/ML VIAL SQ SCH ×3 (06:18→16:48)
[2023-02-22] MEDS: CALCIUM ACETATE 667 MG TAB PO SCH ×2 (06:28→16:47)
[2023-02-22] MEDS ORDERED: LEVOTHYROXINE 88 MCG TAB PO SCH (06:30)
[2023-02-22 06:59] LABS: Basophils % (A) 0 %; Eosinophils # (A) 0.2 k/uL (0-0.7); Eosinophils % (A) 3 %; HGB 11.4 gm/dL (11.4-16.0); Hypochromasia Slight; Lymphocytes # (A) 1.9 k/uL (1.0-4.8); Lymphocytes % (A) 29 %; MCH 32.2 pg (25.0-35.0); MCHC 32.6 g/dL (31.0-37.0); MCV 98.7 fL (80.0-100.0); Mean Platelet Volume 8.1; Monocytes # (A) 0.4 k/uL (0-1.0); Monocytes % (A) 5 %; Neutrophils % (A) 61 %; Platelet Count 160 k/uL (150-450); RBC 3.55 m/uL (3.80-5.40); RDW 14.2 % (11.5-15.5); WBC 6.6 k/uL (3.8-10.6)
[2023-02-22 07:35] LABS: Carbon Dioxide 26 mmol/L (22-30); Chloride 98 mmol/L (98-107); Glucose 108 mg/dL (74-99); Potassium 4.9 mmol/L (3.5-5.1); Sodium 131 mmol/L (137-145)
[2023-02-22 07:36] LABS: ALT 119 U/L (4-34); AST 343 U/L (14-36); African American GFR (CKD) 11 (>60 ml/min/1.73 sqM); Albumin 3.2 g/dL (3.5-5.0); Alkaline Phosphatase 118 U/L (38-126); Anion Gap 7 mmol/L; Blood Urea Nitrogen 38 mg/dL (7-17); Calcium 8.9 mg/dL (8.4-10.2); Non-African American GFR(CKD) 10 (>60 ml/min/1.73 sqM); Total Bilirubin 1.3 mg/dL (0.2-1.3); Total Protein 6.7 g/dL (6.3-8.2)
[2023-02-22] MEDS: BUDESONIDE 0.5 MG/2 ML NEBU INHALATION SCH (07:52)
[2023-02-22] MEDS ORDERED: allopurinoL 100 MG TAB PO SCH (08:00)
[2023-02-22] MEDS ORDERED: carvediloL 12.5 MG TAB PO SCH (08:00)
[2023-02-22] MEDS ORDERED: FAMOTIDINE 20 MG TAB PO SCH (08:00)
[2023-02-22] MEDS ORDERED: CLOPIDOGREL 75 MG TAB PO SCH (08:00)
[2023-02-22] MEDS ORDERED: DULoxetine HCL 60 MG CAPSULE.DR PO SCH (08:00)
[2023-02-22] MEDS: FUROSEMIDE 20 MG TAB PO SCH ×2 (08:45→16:47)
[2023-02-22] MEDS: MINERAL OIL-WHITE PETROLATUM 120 GM JAR TOPICAL SCH ×2 (08:47→16:48)
[2023-02-22 08:51] VITALS: RESP 16; TEMP 98.2
[2023-02-22] MEDS ORDERED: amLODIPine 10 MG TAB PO SCH (09:00)
[2023-02-22] MEDS ORDERED: GABAPENTIN 100 MG CAP PO SCH (09:00)
[2023-02-22] MEDS: ISOSORBIDE MONONITRATE ER 30 MG TAB.ER.24H PO SCH ×2 (09:48→16:48)
[2023-02-22 09:49] LABS: Magnesium 2.2 mg/dL (1.6-2.3)
--- NOTE | 2023-02-22 10:39 | P.NPCON ---
History of Present Illness - Reason for Consult end stage renal disease - History of Present Illness Patient is a 67-year-old female with end-stage renal disease on hemodialysis on a Saturday schedule. Patient was admitted to the hospital after TPA thrombectomy and fistulogram of left arm AV graft. Patient had periods of bradycardia and serum potassium was 6.1. Patient did have hemodi alysis last night and her serum potassium this morning is 4.9. Patient feels well. No significant complaints. 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 in [place]., pt has RT chest port. , left forearm fistula., friend Shirley states patient can stand to transfer but uses wheelchair mostly, November Admission 2022 for [facility]-malfunctioning dialysis catheter. Last Myocardial Infarction Date:: 2009 History of Any Multi-Drug Resistant Organisms: VRE Date of last positivie culture/infection: 01/17/22 MDRO Source:: Urine Past Surgical History: Adenoidectomy, Back Surgery, Cholecystectomy, Heart Catheterization With Stent, Tonsillectomy Additional Past Surgical History / Comment(s): PCI with stent 2009 & 2018, low back surgery, total R shoulder and total R knee arthroplasties, bilateral hand trigger finger surgeries, EGD, colonoscopy, L eye laser eye surgery for bleed, thyroidectomy(2 surgeries total to remove all of thyroid).lt tib fib fx-plate and screws. lt arm Dialysis fistula,heart stents x2,heart cath x2 Past Anesthesia/Blood Transfusion Reactions: No Reported Reaction, Motion Sickness Additional Past Anesthesia/Blood Transfusion Reaction / Comment(s): no hx blood transfusion Date of Last Stent Placement:: Smoking Status: Never smoker - Past Family History Mother Family Medical History: Asthma, CVA/TIA, Seizure Disorder Additional Family Medical History / Comment(s): epilepsy,pt states "mom had 21 strokes) Father Family Medical History: COPD, Diabetes Mellitus Additional Family Medical History / Comment(s): many heart problems Medications and Allergies Home Medications Medication Instructions Recorded Confirmed Type Levothyroxine Sodium [Synthroid] 175 mcg PO QAM 11/21/17 02/21/23 History Montelukast [Singulair] 10 mg PO HS@2100 11/21/17 02/21/23 History Atorvastatin [Lipitor] 40 mg PO HS@2100 09/08/20 02/21/23 History Cholecalciferol [Vitamin D3 (25 50 mcg PO DAILY@1700 12/09/20 02/21/23 History Mcg = 1000 Iu)] Acetaminophen Tab [Tylenol] 650 mg PO Q4H PRN 11/04/21 02/21/23 History Aspirin EC [Ecotrin Low Dose] 81 mg PO DAILY@1700 11/04/21 02/21/23 History Budesonide [Pulmicort] 0.5 mg INHALATION RT-BID@0700,1700 11/04/21 02/21/23 History Clopidogrel [Plavix] 75 mg PO DAILY@0800 11/04/21 02/21/23 History DULoxetine HCL [Cymbalta] 60 mg PO DAILY@0800 02/08/22 02/21/23 History Fluticasone Propionate 110 Mcg 2 puff INHALATION RT-BID PRN 02/08/22 02/21/23 History [Flovent 110 Mcg Inhaler] Insulin Degludec [Tresiba] 20 units SQ HS@2130 02/08/22 02/21/23 History Isosorbide Mononitrate ER [Imdur] 30 mg PO BID@0800,1700 02/08/22 02/21/23 H istory Ondansetron [Zofran] 4 mg PO BID PRN 02/08/22 02/21/23 History Calcium Acetate [PhosLo] 667 mg PO TUTHSA@1400 04/12/22 02/21/23 History Vitamin E Lotion 1 applic TOPICAL BID@0800,1700 04/12/22 02/21/23 History Furosemide [Lasix] 60 mg PO BID@0800,1700 08/06/22 02/21/23 History carvediloL [Coreg] 12.5 mg PO SUMOWEFR@0800 08/06/22 02/21/23 History Ipratropium-Albuterol Nebulize 3 ml INHALATION RT-Q6H PRN 09/28/22 02/21/23 History [Duoneb 0.5 mg-3 mg/3 ml Soln] Loperamide [Imodium] 2 mg PO QID PRN 09/28/22 02/21/23 History allopurinoL [Zyloprim] 100 mg PO DAILY@0800 09/28/22 02/21/23 History Calcium Acetate [PhosLo] 667 mg PO BID-W/MEALS 10/30/22 02/21/23 History Calcium Acetate [PhosLo] 667 mg PO SUMOWEFR@1200 10/30/22 02/21/23 History Famotidine [Pepcid] 10 mg PO DAILY@0800 10/30/22 02/21/23 History Hydrocortisone Cream 1 applic TOPICAL BID PRN 10/30/22 02/21/23 History [Hydrocortisone 1% Cream] Interdry 10 1 applic TOPICAL BID@0800,2100 10/30/22 02/21/23 History Midodrine HCl 5 mg PO TUTHSA 10/30/22 02/21/23 History Renal Multivitamin Formula Tab 1 tab PO DAILY@1700 10/30/22 02/21/23 History bisacodyL [Dulcolax] 10 mg RECTAL DAILY PRN 10/30/22 02/21/23 History carvediloL [Coreg] 12.5 mg PO DAILY@1700 10/30/22 02/21/23 History guaiFENesin SYRUP 100MG/5ML 200 mg PO Q4H PRN 10/30/22 02/21/23 History [Robitussin] Na Phos,M-B/Na Phos,Di-Ba [Fleet 133 ml RECTAL DAILY PRN 11/20/22 02/21/23 History Adult] 1500ml Fluid Restriction 1,500 ml PO TID 12/31/22 02/21/23 History Gabapentin [Neurontin] 100 mg PO QAM 12/31/22 02/21/23 History Gabapentin [Neurontin] 200 mg PO HS 12/31/22 02/21/23 History HYDROcodone/APAP 5-325MG [[place]ga 1 tab PO Q8H PRN 12/31/22 02/21/23 History 5-325] Insulin Aspart [NovoLOG] 0 units SQ ACHS PRN 12/31/22 02/21/23 History Sennosides-Docusate Sodium 1 tab PO BID 12/31/22 02/21/23 History [Senokot-S] amLODIPine [Norvasc] 10 mg PO QAM 12/31/22 02/21/23 History Allergies Allergy/AdvReac Type Severity Reaction Status Date / Time No Known Allergies Allergy Verified 02/21/23 09:46 Physical Exam Vitals: Vital Signs Temp Pulse Pulse Resp BP Pulse Ox 02/22/23 08:49 98.2 F 70 16 109/46 98 02/22/23 08:03 52 L 02/22/23 07:52 52 L 02/22/23 04:00 98.3 F 58 L 14 124/65 95 02/22/23 02:00 58 L 18 02/22/23 00:25 58 L 18 96 02/21/23 23:45 98.6 F 47 L 18 149/73 02/21/23 20:00 89 16 02/21/23 15:15 97.5 F L 74 16 132/58 96 02/21/23 14:15 77 18 149/67 02/21/23 13:40 84 18 155/72 96 02/21/23 13:20 97.6 F 80 18 135/61 94 L 02/21/23 12:25 81 18 140/66 96 02/21/23 12:10 76 18 156/62 96 02/21/23 11:55 77 18 133/63 96 Intake and Output 02/21/23 02/22/23 02/22/23 22:59 06:59 14:59 Intake Total 0 500 Output Total 0 1500 Balance 0 -1000 Intake: Oral 0 Hemodialysis 500 Output: Urine 0 0 Hemodialysis 1500 Other: Voiding Method Toilet Toilet # Voids 1 # Bowel Movements 1 Weight 113 kg Patient is awake, comfortable, no acute distress Examination of the heart S1 and S2 Examination of the lungs bilateral breath sounds are heard Abdomen is soft nontender Examination of the lower extremities shows no significant edema. SHOT PACKER exam grossly intact Results - Lab Results Most recent lab results Calcium 8.9 mg/dL (8.4-10.2) 02/22/23 06:33 Phosphorus 4.0 mg/dL (2.5-4.5) 02/22/23 06:33 Magnesium 2.2 mg/dL (1.6-2.3) 02/22/23 06:33 02/22/23 06:33 02/22/23 06:33 Assessment and Plan Assessment: 1. End-stage renal disease on hemodialysis on a Saturday schedule 2. Hyperkalemia in a patient with end-stage renal disease currently improved with hemodialysis 3. Thrombosed AV graft status post left arm fistulogram and thrombectomy and angioplasty 4. CK D mineral bone disorder Plan: Patient can be discharged from nephrology standpoint. Follow-up for dialysis tomorrow as outpatient.
[2023-02-22 11:47] LABS: Glucose,Whole Blood 94 mg/dL (70-110)
[2023-02-22] MEDS ORDERED: CALCIUM ACETATE 667 MG TAB PO SCH (12:00)
--- NOTE | 2023-02-22 15:04 | P.DS ---
Providers Expected date of discharge: 02/22/23 Attending physician: Yoselin Gomes Consults: 02/21/23 13:59 Consult Physician Urgent Consulting Provider: Merary Spencer Consult Reason/Comments: esrd, needs dialysis, hyperkalemia Do you want consulting provider notified?: Yes 02/21/23 14:08 Consult Physician Routine Consulting Provider: Shara Roper Consult Reason/Comments: recent graft intervention 02/21 Do you want consulting provider notified?: Yes Primary care physician: Cristiano East [facility] Course: Final diagnosis Status post fistulogram for a left thrombosed loop graft dialysis fistula status post medication induced thrombectomy End-stage renal disease maintained on dialysis Saturday//Saturday Hyperkalemia with potassium of 6.1, trending down History of asthma/COPD, not an exacerbation Coronary artery disease history history of anxiety/depression Heart failure history CVA/TIA history Diabetes mellitus History of GI bleeds Hyperlipidemia Hypertension History of osteoarthritis Pulmonary embolism history History of rheumatoid arthritis History of sleep apnea uses a BiPAP GI prophylaxis DVT prophylaxis Full code Discharge disposition Patient is being discharged in a stable condition with guarded prognosis to home. Patient will follow-up with Dr. East in the outpatient setting upon discharge. Patient is to continue with hemodialysis as scheduled. Outpatient follow-up with vascular surgery Dr. Roper in 1-2 weeks. Patient has been okay to use left arm fistula for dialysis. Total time taken is greater than 35 minutes. Hospital course This is a 67-year-old female who was recently admitted as an outpatient procedure for fistulogram with occluded fistula status post TPA administration. Patient was cleared by vascular surgery Dr. Roper to resume hemodialysis on the fistula and does have a chest wall catheter is well. Patient to follow-up with Dr. Roper in the outpatient setting in the next 1-2 weeks. Aspirin and Plavix has been resumed and patient has been cleared for discharge. Patient was evaluated by nephrology today recommending to continue Saturday//Saturday with next treatment being tomorrow. Patient will be going back to [facility]. Please refer to other consultation notes for further HPI. Currently no reports of chest pain, shortness of breath, or palpitations. Patient is afebrile. No reports of nausea or vomiting and patient is tolerating diet. Patient is a diabetic as well and recommend consistent carb heart healthy/renal diet with low potassium. Patient will be going to [facility] today. Physical exam: Gen: This is a 67-year-old female who is awake, alert and oriented 3, well- developed, well-nourished, morbidly obese HEENT: Head is atraumatic, normocephalic. Pupils equal, round. Sclerae is anicteric. NECK: Supple. No JVD. No lymphadenopathy. No thyromegaly. LUNGS: Clear to auscultation. No wheezes or rhonchi. No intercostal retractions. HEART: Regular rate and rhythm. No murmur. ABDOMEN: Soft. Obese. Bowel sounds are present. No masses. No tenderness. EXTREMITIES: No pedal edema. No calf tenderness. Left side fistula dressing is dry and intact NEUROLOGICAL: Patient is awake, alert and oriented x3. Cranial nerves 2 through 12 are grossly intact. Diffusely weak Please refer to medication reconciliation sheet for a list of medications. The impression and plan of care has been dictated by Tamia Li, Nurse Practitioner as directed. Dr. Anya MD I have performed a history and examination and MDM of this patient, discussed the same with the dictator, and agree with the dictator's assessment and plan as written ,documented as a scribe. Based on total visit time, I have performed more than 50% of the visit. Patient Condition at Discharge: Stable Plan - Discharge Summary New Discharge Prescriptions: Continue Montelukast [Singulair] 10 mg PO HS@2100 Levothyroxine Sodium [Synthroid] 175 mcg PO QAM Atorvastatin [Lipitor] 40 mg PO HS@2100 Cholecalciferol [Vitamin D3 (25 Mcg = 1000 Iu)] 50 mcg PO DAILY@1700 Acetaminophen Tab [Tylenol] 650 mg PO Q4H PRN PRN Reason: Fever And/ Or Pain Aspirin EC [Ecotrin Low Dose] 81 mg PO DAILY@1700 Budesonide [Pulmicort] 0.5 mg INHALATION RT-BID@0700,1700 Clopidogrel [Plavix] 75 mg PO DAILY@0800 Ondansetron [Zofran] 4 mg PO BID PRN PRN Reason: Nausea-takes w/dialysis Isosorbide Mononitrate ER [Imdur] 30 mg PO BID@0800,1700 Fluticasone Propionate 110 Mcg [Flovent 110 Mcg Inhaler] 2 puff INHALATION RT-BID PRN PRN Reason: Shortness Of Breath allopurinoL [Zyloprim] 100 mg PO DAILY@0800 Loperamide [Imodium] 2 mg PO QID PRN PRN Reason: Diarrhea guaiFENesin SYRUP 100MG/5ML [Robitussin] 200 mg PO Q4H PRN PRN Reason: Cough Calcium Acetate [PhosLo] 667 mg PO SUMOWEFR@1200 carvediloL [Coreg] 12.5 mg PO DAILY@1700 Na Phos,M-B/Na Phos,Di-Ba [Fleet Adult] 133 ml RECTAL DAILY PRN PRN Reason: Constipation Insulin Aspart [NovoLOG] 0 units SQ ACHS PRN PRN Reason: sale Sennosides-Docusate Sodium [Senokot-S] 1 tab PO BID Gabapentin [Neurontin] 100 mg PO QAM #2 cap HYDROcodone/APAP 5-325MG [Howe 5-325] 1 tab PO Q8H PRN #4 tab PRN Reason: Pain Insulin Degludec [Tresiba] 20 units SQ HS@2130 DULoxetine HCL [Cymbalta] 60 mg PO DAILY@0800 Vitamin E Lotion 1 applic TOPICAL BID@0800,1700 Calcium Acetate [PhosLo] 667 mg PO TUTHSA@1400 Furosemide [Lasix] 60 mg PO BID@0800,1700 carvediloL [Coreg] 12.5 mg PO SUMOWEFR@0800 Ipratropium-Albuterol Nebulize [Duoneb 0.5 mg-3 mg/3 ml Soln] 3 ml INHALATION RT-Q6H PRN PRN Reason: Shortness Of Breath Hydrocortisone Cream [Hydrocortisone 1% Cream] 1 applic TOPICAL BID PRN PRN Reason: Rash bisacodyL [Dulcolax] 10 mg RECTAL DAILY PRN PRN Reason: Constipation Renal Multivitamin Formula Tab 1 tab PO DAILY@1700 Calcium Acetate [PhosLo] 667 mg PO BID-W/MEALS Midodrine HCl 5 mg PO TUTHSA Famotidine [Pepcid] 10 mg PO DAILY@0800 Interdry 10 1 applic TOPICAL BID@0800,2100 amLODIPine [Norvasc] 10 mg PO QAM 1500ml Fluid Restriction 1,500 ml PO TID Gabapentin [Neurontin] 200 mg PO HS #3 cap Discharge Medication List Levothyroxine Sodium [Synthroid] 175 mcg PO QAM 11/21/17 [History] Montelukast [Singulair] 10 mg PO HS@2100 11/21/17 [History] Atorvastatin [Lipitor] 40 mg PO HS@2100 09/08/20 [History] Cholecalciferol [Vitamin D3 (25 Mcg = 1000 Iu)] 50 mcg PO DAILY@169912/09/20 [History] Acetaminophen Tab [Tylenol] 650 mg PO Q4H PRN 11/04/21 [History] Aspirin EC [Ecotrin Low Dose] 81 mg PO DAILY@169911/04/21 [History] Budesonide [Pulmicort] 0.5 mg INHALATION RT-BID@0700,169911/04/21 [History] Clopidogrel [Plavix] 75 mg PO DAILY@0811/04/21 [History] DULoxetine HCL [Cymbalta] 60 mg PO DAILY@0802/08/22 [History] Fluticasone Propionate 110 Mcg [Flovent 110 Mcg Inhaler] 2 puff INHALATION RT- BID PRN 02/08/22 [History] Insulin Degludec [Tresiba] 20 units SQ HS@21302/08/22 [History] Isosorbide Mononitrate ER [Imdur] 30 mg PO BID@0800,1700 02/08/22 [History] Ondansetron [Zofran] 4 mg PO BID PRN 02/08/22 [History] Calcium Acetate [PhosLo] 667 mg PO TUTHSA@1400 04/12/22 [History] Vitamin E Lotion 1 applic TOPICAL BID@0800,1700 04/12/22 [History] Furosemide [Lasix] 60 mg PO BID@0800,1700 08/06/22 [History] carvediloL [Coreg] 12.5 mg PO SUMOWEFR@79908/06/22 [History] Ipratropium-Albuterol Nebulize [Duoneb 0.5 mg-3 mg/3 ml Soln] 3 ml INHALATION RT-Q6H PRN 09/28/22 [History] Loperamide [Imodium] 2 mg PO QID PRN 09/28/22 [History] allopurinoL [Zyloprim] 100 mg PO DAILY@0800 09/28/22 [History] Calcium Acetate [PhosLo] 667 mg PO BID-W/MEALS 10/30/22 [History] Calcium Acetate [PhosLo] 667 mg PO SUMOWEFR@1200 10/30/22 [History] Famotidine [Pepcid] 10 mg PO DAILY@0800 10/30/22 [History] Hydrocortisone Cream [Hydrocortisone 1% Cream] 1 applic TOPICAL BID PRN 10/30/22 [History] Interdry 10 1 applic TOPICAL BID@0800,2100 10/30/22 [History] Midodrine HCl 5 mg PO TUTHSA 10/30/22 [History] Renal Multivitamin Formula Tab 1 tab PO DAILY@1700 10/30/22 [History] bisacodyL [Dulcolax] 10 mg RECTAL DAILY PRN 10/30/22 [History] carvediloL [Coreg] 12.5 mg PO DAILY@1700 10/30/22 [History] guaiFENesin SYRUP 100MG/5ML [Robitussin] 200 mg PO Q4H PRN 10/30/22 [History] Na Phos,M-B/Na Phos,Di-Ba [Fleet Adult] 133 ml RECTAL DAILY PRN 11/20/22 [History] 1500ml Fluid Restriction 1,500 ml PO TID 12/31/22 [History] Insulin Aspart [NovoLOG] 0 units SQ ACHS PRN 12/31/22 [History] Sennosides-Docusate Sodium [Senokot-S] 1 tab PO BID 12/31/22 [History] amLODIPine [Norvasc] 10 mg PO QAM 12/31/22 [History] Gabapentin [Neurontin] 100 mg PO QAM #2 cap 02/22/23 [Rx] Gabapentin [Neurontin] 200 mg PO HS #3 cap 02/22/23 [Rx] HYDROcodone/APAP 5-325MG [Howe 5-325] 1 tab PO Q8H PRN #4 tab 02/22/23 [Rx] Follow up Appointment(s)/Referral(s): Cristiano East MD [Primary Care Provider] - 1 Week Shara Roper DO [STAFF PHYSICIAN] - 1 Week Patient Instructions/Handouts: Fistulogram (DC) Activity/Diet/Wound Care/Special Instructions: Patient going to [facility] Activity as tolerated Continue renal heart healthy, diabetic diet Continue Accu-Cheks before meals and at bedtime and insulin regimen Okay to use left arm dialysis site per vascular surgery Follow-up with vascular surgery outpatient in one week Follow-up nephrology outpatient and continue current regimen of Saturday//Saturday dialysis Discharge Disposition: TRANSFER TO SNF/ECF
--- NOTE | 2023-02-22 15:36 | P.PN ---
Subjective Progress Note Date: 02/22/23 Patient seen and examined. No complaints. Left upper extremity is warm and dry. AV graft with palpable thrill and good augmentation. End-stage renal disease, recently thrombosed graft Hyperkalemia Patient is doing well after thrombectomy. Plan for discharge later today per medicine. They may continue trial use with small needles of the AV graft at dialysis. Okay to remove sutures in next dialysis session. Objective - Vital Signs Vital signs: Vital Signs Temp 98.2 F 02/22/23 08:49 Pulse 67 02/22/23 14:00 Resp 16 02/22/23 14:00 BP 138/69 02/22/23 11:56 Pulse Ox 99 02/22/23 11:56 FiO2 Intake & Output 02/21/23 02/22/23 02/22/23 18:59 06:59 18:59 Intake Total 300 500 Output Total 0 1500 Balance 300 -1000 Weight 113.4 kg 113 kg Intake: IV 300 Oral 0 Hemodialysis 500 Output: Urine 0 0 Hemodialysis 1500 Other: Voiding Method Toilet Toilet Toilet # Voids 1 # Bowel Movements 1 - Labs CBC & Chem 7: 02/22/23 06:33 02/22/23 06:33 Labs: Abnormal Lab Results - Last 24 Hours (Table) 02/21/23 02/21/23 02/21/23 Range/Units 16:10 18:10 19:58 RBC (3.80-5.40) m/uL Sodium (137-145) mmol/L Potassium 5.7 H (3.5-5.1) mmol/L BUN (7-17) mg/dL Creatinine (0.52-1.04) mg/dL Glucose (74-99) mg/dL POC Glucose (mg/dL) 142 H 157 H (70-110) mg/dL AST (14-36) U/L ALT (4-34) U/L Albumin (3.5-5.0) g/dL 02/22/23 02/22/23 Range/Units 06:33 06:33 RBC 3.55 L (3.80-5.40) m/uL Sodium 131 L (137-145) mmol/L Potassium (3.5-5.1) mmol/L BUN 38 H (7-17) mg/dL Creatinine 4.51 H (0.52-1.04) mg/dL Glucose 108 H (74-99) mg/dL POC Glucose (mg/dL) (70-110) mg/dL AST 343 H (14-36) U/L ALT 119 H (4-34) U/L Albumin 3.2 L (3.5-5.0) g/dL
[2023-02-22 15:54] VITALS: BP 139/63; PULSE 64
[2023-02-22] MEDS: CHOLECALCIFEROL 25 MCG (1000 IU) TABLET PO SCH (16:47)
[2023-02-22] MEDS: FOLIC ACID-VIT B COMPLEX-VIT C 1 CAP PO SCH (16:48)
[2023-02-22] MEDS: carvediloL 12.5 MG TAB PO SCH (16:49)
[2023-02-22] MEDS ORDERED: ASPIRIN 81 MG PO SCH (17:00)
[2023-02-22 17:01] LABS: Glucose,Whole Blood 131 mg/dL (70-110)
== END 2023-02-22 17:56 ==
LOC: CATHCVL 08:12 → 3SCARD 12:43 → CATHCVL 02-22 17:56
PROVIDERS: ATTEND Internal Medicine
DX: T82.868A Thrombosis due to vascular prosthetic devices, implants and grafts, initial encounter (principal); I13.2 Hypertensive heart and chronic kidney disease with heart failure and with stage 5 chronic kidney disease, or end stage renal disease; N18.6 End stage renal disease; E11.22 Type 2 diabetes mellitus with diabetic chronic kidney disease; I25.10 Atherosclerotic heart disease of native coronary artery without angina pectoris; M06.9 Rheumatoid arthritis, unspecified; J44.9 Chronic obstructive pulmonary disease, unspecified; E78.5 Hyperlipidemia, unspecified; I25.2 Old myocardial infarction; Z86.73 Personal history of transient ischemic attack (TIA), and cerebral infarction without residual deficits; Z99.2 Dependence on renal dialysis; Z86.711 Personal history of pulmonary embolism; G47.30 Sleep apnea, unspecified
CPT/HCPCS: 90935; 94640; 36905; 80053; 80048; 83735; 84100; 84132; 85025 ×2; C1894; C1769 ×3; C2623; C1725; C1757; J2250; J2001; J3010; J2997; Q9966

== ENCOUNTER 2023-04-05 08:27 | Observation (INO) | payer MEDICARE, OTHER ==
--- NOTE | 2023-04-05 08:47 | ED ---
General Adult HPI - General Chief complaint: Recheck/Abnormal Lab/Rx Stated complaint: Abn labs Time Seen by Provider: 04/05/23 08:33 Source: patient Mode of arrival: ambulatory Limitations: no limitations - History of Present Illness Initial comments: Dictation was produced using [employer] dictation software. please excuse any grammatical, word or spelling errors. Chief Complaint: 67-year-old female presents to the ER for malfunctioning AV dialysis access History of Present Illness: Patient is a 67-year-old female she has past medical history of ESRD. States that her left upper extremity AV dialysis access site has not been functioning well. He was initially placed 2 months ago has been working up until yesterday when attempt was made to use it. Unable to perform hemodialysis to using that graft. She however was able to give full dialysis due to her cutaneous catheter. Patient has no other complaints. She was instructed by Dr. Roper's yesterday to come to to the emergency department today to have a revision procedure. The ROS documented in this emergency department record has been reviewed and confirmed by me. Those systems with pertinent positive or negative responses have been documented in the HPI. All other systems are other negative and/or noncontributory. - Related Data Home Medications Medication Instructions Recorded Confirmed Levothyroxine Sodium [Synthroid] 175 mcg PO QAM 11/21/17 02/21/23 Montelukast [Singulair] 10 mg PO HS@2100 11/21/17 02/21/23 Atorvastatin [Lipitor] 40 mg PO HS@2100 09/08/20 02/21/23 Cholecalciferol [Vitamin D3 (25 50 mcg PO DAILY@169912/09/20 02/21/23 Mcg = 1000 Iu)] Acetaminophen Tab [Tylenol] 650 mg PO Q4H PRN 11/04/21 02/21/23 Aspirin EC [Ecotrin Low Dose] 81 mg PO DAILY@169911/04/21 02/21/23 Budesonide [Pulmicort] 0.5 mg INHALATION RT-BID@0700,169911/04/21 02/21/23 Clopidogrel [Plavix] 75 mg PO DAILY@0800 11/04/21 02/21/23 DULoxetine HCL [Cymbalta] 60 mg PO DAILY@0802/08/22 02/21/23 Fluticasone Propionate 110 Mcg 2 puff INHALATION RT-BID PRN 02/08/22 02/21/23 [Flovent 110 Mcg Inhaler] Insulin Degludec [Tresiba] 20 units SQ HS@2130 02/08/22 02/21/23 Isosorbide Mononitrate ER [Imdur] 30 mg PO BID@0800,1700 02/08/22 02/21/23 Ondansetron [Zofran] 4 mg PO BID PRN 02/08/22 02/21/23 Calcium Acetate [PhosLo] 667 mg PO TUTHSA@1400 04/12/22 02/21/23 Vitamin E Lotion 1 applic TOPICAL BID@0800,1700 04/12/22 02/21/23 Furosemide [Lasix] 60 mg PO BID@0800,1700 08/06/22 02/21/23 carvediloL [Coreg] 12.5 mg PO SUMOWEFR@0800 08/06/22 02/21/23 Ipratropium-Albuterol Nebulize 3 ml INHALATION RT-Q6H PRN 09/28/22 02/21/23 [Duoneb 0.5 mg-3 mg/3 ml Soln] Loperamide [Imodium] 2 mg PO QID PRN 09/28/22 02/21/23 allopurinoL [Zyloprim] 100 mg PO DAILY@0800 09/28/22 02/21/23 Calcium Acetate [PhosLo] 667 mg PO BID-W/MEALS 10/30/22 02/21/23 Calcium Acetate [PhosLo] 667 mg PO SUMOWEFR@1200 10/30/22 02/21/23 Famotidine [Pepcid] 10 mg PO DAILY@0800 10/30/22 02/21/23 Hydrocortisone Cream 1 applic TOPICAL BID PRN 10/30/22 02/21/23 [Hydrocortisone 1% Cream] Interdry 10 1 applic TOPICAL BID@0800,2100 10/30/22 02/21/23 Midodrine HCl 5 mg PO TUTHSA 10/30/22 02/21/23 Renal Multivitamin Formula Tab 1 tab PO DAILY@1700 10/30/22 02/21/23 bisacodyL [Dulcolax] 10 mg RECTAL DAILY PRN 10/30/22 02/21/23 carvediloL [Coreg] 12.5 mg PO DAILY@1700 10/30/22 02/21/23 guaiFENesin SYRUP 100MG/5ML 200 mg PO Q4H PRN 10/30/22 02/21/23 [Robitussin] Na Phos,M-B/Na Phos,Di-Ba [Fleet 133 ml RECTAL DAILY PRN 11/20/22 02/21/23 Adult] 1500ml Fluid Restriction 1,500 ml PO TID 12/31/22 02/21/23 Insulin Aspart [NovoLOG] 0 units SQ ACHS PRN 12/31/22 02/21/23 Sennosides-Docusate Sodium 1 tab PO BID 12/31/22 02/21/23 [Senokot-S] amLODIPine [Norvasc] 10 mg PO QAM 12/31/22 02/21/23 Previous Rx's Medication Instructions Recorded Gabapentin [Neurontin] 100 mg PO QAM #2 cap 02/22/23 Gabapentin [Neurontin] 200 mg PO HS #3 cap 02/22/23 HYDROcodone/APAP 5-325MG [[place] 1 tab PO Q8H PRN #4 tab 02/22/23 5-325] Allergies Allergy/AdvReac Type Severity Reaction Status Date / Time No Known Allergies Allergy Verified 04/05/23 08:31 Review of Systems ROS Statement: Those systems with pertinent positive or pertinent negative responses have been documented in the HPI. ROS Other: All systems not noted in ROS Statement are negative. 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 , left forearm fistula., friend Sihrley states patient can stand to transfer but uses wheelchair mostly, November Admission 2022 for [facility]-malfunctioning dialysis catheter. Last Myocardial Infarction Date:: 2009 History of Any Multi-Drug Resistant Organisms: VRE Date of last positivie culture/infection: 01/17/22 MDRO Source:: Urine Past Surgical History: Adenoidectomy, Back Surgery, Cholecystectomy, Heart Catheterization With Stent, Tonsillectomy Additional Past Surgical History / Comment(s): PCI with stent 2009 & 2018, low back surgery, total R shoulder and total R knee arthroplasties, bilateral hand trigger finger surgeries, EGD, colonoscopy, L eye laser eye surgery for bleed, thyroidectomy(2 surgeries total to remove all of thyroid).lt tib fib fx-plate and screws. lt arm Dialysis fistula,heart stents x2,heart cath x2 Past Anesthesia/Blood Transfusion Reactions: No Reported Reaction, Motion Sickness Additional Past Anesthesia/Blood Transfusion Reaction / Comment(s): no hx blood transfusion Date of Last Stent Placement:: Past Psychological History: Anxiety, Depression Smoking Status: Never smoker Past Alcohol Use History: None Reported Past Drug Use History: None Reported - Past Family History Mother Family Medical History: Asthma, CVA/TIA, Seizure Disorder Additional Family Medical History / Comment(s): epilepsy,pt states "mom had 21 strokes) Father Family Medical History: COPD, Diabetes Mellitus Additional Family Medical History / Comment(s): many heart problems General Exam - General Exam Comments Initial Comments: PHYSICAL EXAM: General Impression: Alert and oriented x3, not in acute distress HEENT: Normocephalic atraumatic, extra-ocular movements intact, pupils equal and reactive to light bilaterally, mucous membranes moist. Cardiovascular: Heart regular rate and rhythm Chest: Able to complete full sentences, no retractions, no tachypnea Abdomen: abdomen soft, non-tender, non-distended, no organomegaly Musculoskeletal: Pulses present and equal in all extremities, no peripheral edema Motor: no focal deficits noted Neurological: CN II-XII grossly intact, no focal motor or sensory deficits noted Skin: Intact with no visualized rashes Psych: Normal affect and mood Limitations: no limitations Course Vital Signs 04/05/23 08:29 Temperature 98 F Pulse Rate 67 Respiratory 20 Rate Blood Pressure 128/58 O2 Sat by Pulse 99 Oximetry Medical Decision Making - Medical Decision Making Was pt. sent in by a medical professional or institution (ENRRIQUE Lay, TRANSITIONAL [employer]ER[employer] TE[employer]ER, urgent care, hospital, or alf...) When possible be specific @ -No Did you speak to anyone other than the patient for history (EMS, parent, family, police, friend...)? What history was obtained from this source @ -No Did you review nursing and triage notes (agree or disagree)? Why? @ -I reviewed and agree with nursing and triage notes Were old charts reviewed (outside hosp., previous admission, EMS record, old EKG, old radiological studies, urgent care reports/EKG's, alf records)? Report findings @ -No old charts were reviewed Differential Diagnosis (chest pain, altered mental status, abdominal pain women, abdominal pain men, vaginal bleeding, musculoskeletal, weakness, fever, dyspnea, syncope, headache, dizziness, GI bleed, back pain, seizure, CVA, palpatations, mental health)? @ -not applicable EKG interpreted by me (3pts min.). @ -None done X-rays interpreted by me (1pt min.). @ -None done CT interpreted by me (1pt min.). @ -None done U/S interpreted by me (1pt. min.). @ -None done What testing was considered but not performed or refused? (CT, X-rays, U/S, labs)? Why? @ -None What meds were considered but not given or refused? Why? @ -None Did you discuss the management of the patient with other professionals (professionals i.e. ENRRIQUE Lay, TRANSITIONAL KINDERGART[employer] TEACHER, lab, RT, psych nurse, healthcare social worker, rehabilitation physician, teacher, energy control officer, upper caser)? Give summary @ -No Was smoking cessation discussed for >3mins.? @ -No Was critical care preformed (if so, how long)? @ -No Were there social determinants of health that impacted care today? How? (Home lessness, low income, unemployed, alcoholism, drug addiction, transportation, low edu. Level, literacy, decrease access to med. care, assisted, rehab)? @ -No Was there de-escalation of care discussed even if they declined (Discuss DNR or withdrawal of care, Hospice)? DNR status @ -No What co-morbidities impacted this encounter? (DM, HTN, Smoking, COPD, CAD, Cancer, CVA, ARF, Chemo, Hep., AIDS, mental health diagnosis, sleep apnea, morbid obesity)? @ -None Was patient admitted / discharged? Hospital course, mention meds given and route, prescriptions, significant lab abnormalities, going to OR and other pertinent info. @ -67-year-old female sent in from outpatient dialysis center for malfunctioning AV fistula for dialysis. Vital signs stable. Case discussed w ith vascular surgeon who will consult on the patient. Admitted to [facility] hospitalist group. Undiagnosed new problem with uncertain prognosis? @ -No Drug Therapy requiring intensive monitoring for toxicity (Heparin, Nitro, Insulin, Cardizem)? @ -No Were any procedures done? @ -No Diagnosis/symptom? Acute, or Chronic, or Acute on Chronic? Uncomplicated (w ithout systemic symptoms) or Complicated (systemic symptoms)? @ -Malfunctioning AV fistula Side effects of treatment? @ -No Exacerbation, Progression, or Severe Exacerbation? @ -No Poses a threat to life or bodily function? How? (Chest pain, [place], [place], pneumonia, PE, COPD, DKA, ARF, appy, cholecystitis, CVA, Diverticulitis, Homicidal, Suicidal, threat to staff... and all critical care pts) @ -No - Lab Data Result diagrams: 04/05/23 08:53 04/05/23 08:53 Lab Results 04/05/23 04/05/23 04/05/23 Range/Units 08:53 08:53 08:53 WBC 7.2 (3.8-10.6) k/uL RBC 3.93 (3.80-5.40) m/uL Hgb 12.7 (11.4-16.0) gm/dL Hct 39.5 (34.0-46.0) % MCV 100.6 H (80.0-100.0) fL MCH 32.4 (25.0-35.0) pg MCHC 32.2 (31.0-37.0) g/dL RDW 14.2 (11.5-15.5) % Plt Count 149 L (150-450) k/uL MPV 8.3 Neutrophils % 58 % Lymphocytes % 29 % Monocytes % 7 % Eosinophils % 5 % Basophils % 0 % Neutrophils # 4.1 (1.3-7.7) k/uL Lymphocytes # 2.1 (1.0-4.8) k/uL Monocytes # 0.5 (0-1.0) k/uL Eosinophils # 0.3 (0-0.7) k/uL Basophils # 0.0 (0-0.2) k/uL Hypochromasia Slight Macrocytosis Slight PT 9.6 (9.0-12.0) sec INR 0.9 (<1.2) APTT 22.5 (22.0-30.0) sec Sodium 134 L (137-145) mmol/L Potassium 4.8 (3.5-5.1) mmol/L Chloride 97 L (98-107) mmol/L Carbon Dioxide 26 (22-30) mmol/L Anion Gap 11 mmol/L BUN 38 H (7-17) mg/dL Creatinine 4.49 H (0.52-1.04) mg/dL Est GFR (CKD-EPI)AfAm 11 (>60 ml/min/1.73 sqM) Est GFR (CKD-EPI)NonAf 10 (>60 ml/min/1.73 sqM) Glucose 106 H (74-99) mg/dL Calcium 9.5 (8.4-10.2) mg/dL Disposition Clinical Impression: Dialysis AV fistula malfunction Disposition: ADMITTED IP TO THIS [facility] Condition: Fair Referrals: Cristiano East MD [Primary Care Provider] - 1-2 days Decision Time: 09:43
[2023-04-05 09:09] LABS: Basophils % (A) 0 %; Eosinophils # (A) 0.3 k/uL (0-0.7); Eosinophils % (A) 5 %; HCT 39.5 % (34.0-46.0); HGB 12.7 gm/dL (11.4-16.0); Hypochromasia Slight; Lymphocytes # (A) 2.1 k/uL (1.0-4.8); Lymphocytes % (A) 29 %; MCH 32.4 pg (25.0-35.0); MCHC 32.2 g/dL (31.0-37.0); MCV 100.6 fL (80.0-100.0); Macrocytosis Slight; Mean Platelet Volume 8.3; Monocytes # (A) 0.5 k/uL (0-1.0); Monocytes % (A) 7 %; Neutrophils # (A) 4.1 k/uL (1.3-7.7); Neutrophils % (A) 58 %; Platelet Count 149 k/uL (150-450); RBC 3.93 m/uL (3.80-5.40); RDW 14.2 % (11.5-15.5); WBC 7.2 k/uL (3.8-10.6)
[2023-04-05 09:22] LABS: INR 0.9 (<1.2); Partial Thromboplastin Time 22.5 sec (22.0-30.0); Prothrombin Time 9.6 sec (9.0-12.0)
[2023-04-05 09:33] LABS: African American GFR (CKD) 11 (>60 ml/min/1.73 sqM); Anion Gap 11 mmol/L; Blood Urea Nitrogen 38 mg/dL (7-17); Calcium 9.5 mg/dL (8.4-10.2); Carbon Dioxide 26 mmol/L (22-30); Chloride 97 mmol/L (98-107); Glucose 106 mg/dL (74-99); Non-African American GFR(CKD) 10 (>60 ml/min/1.73 sqM); Potassium 4.8 mmol/L (3.5-5.1); Sodium 134 mmol/L (137-145)
[2023-04-05] MEDS ORDERED: NALOXONE 0.4 MG/ML 1 ML VIAL IV PRN (09:40)
--- NOTE | 2023-04-05 10:26 | P.GSCN ---
History of Present Illness Consult date: 04/05/23 Reason for Consult: Malfunctioning loop graft Requesting physician: Bashir Arreola History of present illness: This pleasant 67-year-old female with end-stage renal disease on dialysis with a left upper extremity loop forearm graft. Patient presented for dialysis today and was found to have no palpable thrill or audible bruit. She is known to Dr. Roper, has had some issues in the past with thrombosed loop graft. She underwent fistulogram with thrombectomy, balloon angioplasty and stenting of the left upper extremity loop graft on 02/21/2023. The patient currently denies any pain in her left upper extremity, no swelling, drainage. She denies any dizziness, shortness of breath, chest pain, abdominal pain, nausea or vomiting. WBC 7.2 hemoglobin 12.7 INR 0.9 sodium 134 potassium 4.8 BUN 38 creatinine 4.49 Review of Systems A 14 point review systems was completed all pertinent positives and negatives as stated in the HPI. 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,speech-slight difficulty with word recall,has some STM loss, Covid infection Mar 2022,uses bipap, peripheral neuropathy bilateral hands/feet, CKD , UTIs, legally blind bilaterally-sees minimally, thyroid cancer with surgery-no radiation or chemo, goiter, hashimotos, diverticular disease, 2013 upper and lower GI bleeds with blood loss anemia, gout, R humeral fracture with surgery., hx falls-able to stand and pivot for transfers-ambulates with rolling walker and assist., hx left ankle fxs., Hemodialysis // at [facility] in [place]., pt has RT chest port. , left forearm fistula., friend Shirley states patient can stand to transfer but uses wheelchair mostly, November Admission 2022 for [facility]-malfunctioning dialysis catheter. Last Myocardial Infarction Date:: 2009 History of Any Multi-Drug Resistant Organisms: VRE Year Discovered:: 01/17/22 MDRO Source:: Urine Past Surgical History: Adenoidectomy, Back Surgery, Cholecystectomy, Heart Catheterization With Stent, Tonsillectomy Additional Past Surgical History / Comment(s): PCI with stent 2009 & 2018, low back surgery, total R shoulder and total R knee arthroplasties, bilateral hand trigger finger surgeries, EGD, colonoscopy, L eye laser eye surgery for bleed, thyroidectomy(2 surgeries total to remove all of thyroid).lt tib fib fx-plate and screws. lt arm Dialysis fistula,heart stents x2,heart cath x2 Past Anesthesia/Blood Transfusion Reactions: No Reported Reaction, Motion Si ckness Additional Past Anesthesia/Blood Transfusion Reaction / Comm: no hx blood transfusion Date of Last Stent Placement:: 2009,2018 Past Psychological History: Anxiety, Depression Smoking Status: Never smoker Past Alcohol Use History: None Reported Past Drug Use History: None Reported - Past Family History Mother Family Medical History: Asthma, CVA/TIA, Seizure Disorder Additional Family Medical History / Comment(s): epilepsy,pt states "mom had 21 strokes) Father Family Medical History: COPD, Diabetes Mellitus Additional Family Medical History / Comment(s): many heart problems Medications and Allergies Home Medications Medication Instructions Recorded Confirmed Type Levothyroxine Sodium [Synthroid] 175 mcg PO QAM 11/21/17 02/21/23 History Montelukast [Singulair] 10 mg PO HS@2100 11/21/17 02/21/23 History Atorvastatin [Lipitor] 40 mg PO HS@2100 09/08/20 02/21/23 History Cholecalciferol [Vitamin D3 (25 50 mcg PO DAILY@0 12/09/20 02/21/23 History Mcg = 1000 Iu)] Acetaminophen Tab [Tylenol] 650 mg PO Q4H PRN 11/04/21 02/21/23 History Aspirin EC [Ecotrin Low Dose] 81 mg PO DAILY@169911/04/21 02/21/23 History Budesonide [Pulmicort] 0.5 mg INHALATION RT-BID@0700,0 11/04/21 02/21/23 History Clopidogrel [Plavix] 75 mg PO DAILY@0800 11/04/21 02/21/23 History DULoxetine HCL [Cymbalta] 60 mg PO DAILY@0802/08/22 02/21/23 History Fluticasone Propionate 110 Mcg 2 puff INHALATION RT-BID PRN 02/08/22 02/21/23 History [Flovent 110 Mcg Inhaler] Insulin Degludec [Tresiba] 20 units SQ HS@2130 02/08/22 02/21/23 History Isosorbide Mononitrate ER [Imdur] 30 mg PO BID@0800,1700 02/08/22 02/21/23 History Ondansetron [Zofran] 4 mg PO BID PRN 02/08/22 02/21/23 History Calcium Acetate [PhosLo] 667 mg PO TUTHSA@1400 04/12/22 02/21/23 History Vitamin E Lotion 1 applic TOPICAL BID@0800,1700 04/12/22 02/21/23 History Furosemide [Lasix] 60 mg PO BID@0800,1700 08/06/22 02/21/23 History carvediloL [Coreg] 12.5 mg PO SUMOWEFR@0800 08/06/22 02/21/23 History Ipratropium-Albuterol Nebulize 3 ml INHALATION RT-Q6H PRN 09/28/22 02/21/23 History [Duoneb 0.5 mg-3 mg/3 ml Soln] Loperamide [Imodium] 2 mg PO QID PRN 09/28/22 02/21/23 History allopurinoL [Zyloprim] 100 mg PO DAILY@0800 09/28/22 02/21/23 History Calcium Acetate [PhosLo] 667 mg PO BID-W/MEALS 10/30/22 02/21/23 History Calcium Acetate [PhosLo] 667 mg PO SUMOWEFR@1200 10/30/22 02/21/23 History Famotidine [Pepcid] 10 mg PO DAILY@0800 10/30/22 02/21/23 History Hydrocortisone Cream 1 applic TOPICAL BID PRN 10/30/22 02/21/23 History [Hydrocortisone 1% Cream] Interdry 10 1 applic TOPICAL BID@0800,2100 10/30/22 02/21/23 History Midodrine HCl 5 mg PO TUTHSA 10/30/22 02/21/23 History Renal Multivitamin Formula Tab 1 tab PO DAILY@1700 10/30/22 02/21/23 History bisacodyL [Dulcolax] 10 mg RECTAL DAILY PRN 10/30/22 02/21/23 History carvediloL [Coreg] 12.5 mg PO DAILY@1700 10/30/22 02/21/23 History guaiFENesin SYRUP 100MG/5ML 200 mg PO Q4H PRN 10/30/22 02/21/23 History [Robitussin] Na Phos,M-B/Na Phos,Di-Ba [Fleet 133 ml RECTAL DAILY PRN 11/20/22 02/21/23 History Adult] 1500ml Fluid Restriction 1,500 ml PO TID 12/31/22 02/21/23 History Insulin Aspart [NovoLOG] 0 units SQ ACHS PRN 12/31/22 02/21/23 History Sennosides-Docusate Sodium 1 tab PO BID 12/31/22 02/21/23 History [Senokot-S] amLODIPine [Norvasc] 10 mg PO QAM 12/31/22 02/21/23 History Gabapentin [Neurontin] 100 mg PO QAM #2 cap 02/22/23 Rx Gabapentin [Neurontin] 200 mg PO HS #3 cap 02/22/23 Rx HYDROcodone/APAP 5-325MG [[place] 1 tab PO Q8H PRN #4 tab 02/22/23 Rx 5-325] Allergies Allergy/AdvReac Type Severity Reaction Status Date / Time No Known Allergies Allergy Verified 04/05/23 08:31 Surgical - Exam Vital Signs Temp Pulse Resp BP Pulse Ox 98 F 67 20 128/58 99 04/05/23 08:29 04/05/23 08:29 04/05/23 08:29 04/05/23 08:29 04/05/23 08:29 General appearance: The patient is alert, oriented, appears in no acute distress. HET: Head is normocephalic and atraumatic. Pupils are equal and reactive. Neck: Supple. Heart: Regular. Lungs: Equal expansion, normal respiratory effort. Abdomen: Soft, nontender, nondistended. Extremities: Normal skin color and turgor. Left upper extremity forearm loop graft without palpable thrill or bruit Neurological: No focal deficits. Strength and sensation are grossly intact. Results - Labs 04/05/23 08:53 04/05/23 08:53 Abnormal Lab Results - Last 24 Hours (Table) 04/05/23 04/05/23 Range/Units 08:53 08:53 MCV 100.6 H (80.0-100.0) fL Plt Count 149 L (150-450) k/uL Sodium 134 L (137-145) mmol/L Chloride 97 L (98-107) mmol/L BUN 38 H (7-17) mg/dL Creatinine 4.49 H (0.52-1.04) mg/dL Glucose 106 H (74-99) mg/dL Diabetes panel 04/05/23 Range/Units 08:53 Sodium 134 L (137-145) mmol/L Potassium 4.8 (3.5-5.1) mmol/L Chloride 97 L (98-107) mmol/L Carbon Dioxide 26 (22-30) mmol/L BUN 38 H (7-17) mg/dL Creatinine 4.49 H (0.52-1.04) mg/dL Glucose 106 H (74-99) mg/dL Calcium 9.5 (8.4-10.2) mg/dL Calcium panel 04/05/23 Range/Units 08:53 Calcium 9.5 (8.4-10.2) mg/dL Pituitary panel 04/05/23 Range/Units 08:53 Sodium 134 L (137-145) mmol/L Potassium 4.8 (3.5-5.1) mmol/L Chloride 97 L (98-107) mmol/L Carbon Dioxide 26 (22-30) mmol/L BUN 38 H (7-17) mg/dL Creatinine 4.49 H (0.52-1.04) mg/dL Glucose 106 H (74-99) mg/dL Calcium 9.5 (8.4-10.2) mg/dL Adrenal panel 04/05/23 Range/Units 08:53 Sodium 134 L (137-145) mmol/L Potassium 4.8 (3.5-5.1) mmol/L Chloride 97 L (98-107) mmol/L Carbon Dioxide 26 (22-30) mmol/L BUN 38 H (7-17) mg/dL Creatinine 4.49 H (0.52-1.04) mg/dL Glucose 106 H (74-99) mg/dL Calcium 9.5 (8.4-10.2) mg/dL Assessment and Plan Assessment: 1. Thrombosed left upper extremity forearm loop graft 2. End-stage renal disease on hemodialysis Plan: 1. Keep nothing by mouth 2. Patient scheduled for fistulogram with thrombolysis/thrombectomy 3. Consult to nephrology for hemodialysis 4. Rest of medical management per primary medical team Thank you for this consultation. The impression and plan of care has been dictated as directed. I performed a history and examination of this patient, discussed the same with the dictator. I agree with the dictator's note ,documented as a scribe. Any additional findings or plans will be noted.
[2023-04-05] MEDS: SODIUM CHLORIDE 0.9% 1,000 ML IV SCH (10:49)
[2023-04-05] MEDS ORDERED: IV FLUID CONTINUATION 1,000 ML IV ONE (17:05)
[2023-04-05] MEDS ORDERED: ALTEPLASE 10 MG in SODIUM CHLORIDE 0.9% 50 ML MISCELLANE ONE (17:05)
[2023-04-05] MEDS ORDERED: MIDAZOLAM 2 MG/2 ML VIAL IVP ONE (17:12)
[2023-04-05] MEDS: fentaNYL (PF) 50 MCG/ML 2 ML AMP IVP ONE ×2 (17:12→17:52)
[2023-04-05] MEDS ORDERED: fentaNYL (PF) 50 MCG/ML 2 ML AMP ONE (17:15)
[2023-04-05] MEDS ORDERED: VERAPAMIL 2.5 MG/ML 2 ML AMP ONE (18:00)
[2023-04-05] MEDS ORDERED: HEPARIN SODIUM 1,000 UN/ML (10ML VL) IV ONE (18:06)
[2023-04-05] MEDS ORDERED: VERAPAMIL SYRINGE (5 MG/10 ML) INTRAARTER ONE (18:06)
[2023-04-05] MEDS ORDERED: NITROGLYCERIN 1000MCG/10ML SYRINGE INTRAARTER ONE (18:06)
[2023-04-05] MEDS ORDERED: IOPAMIDOL-370 100ML BTL INJ ONE (18:15)
--- NOTE | 2023-04-05 18:30 | P.OP ---
Date of Procedure: 04/05/23 Description of Procedure: Preoperative diagnosis: Thrombosed left upper extremity loop AV graft Postoperative diagnosis: Same, outflow and inflow stenosis Procedure: Left Upper extremity fistulogram with ultrasound guided access. Percutaneous thrombolysis, thrombectomy of the AV graft with AngioJet Percutaneous transluminal balloon angioplasty of the outflow anastomosis stenosis with 7 x 40 mm drug-eluting balloon Percutaneous transluminal balloon angioplasty of the inflow anastomosis stenosis with 5 x 40 mm ever cross balloon Surgeon: Herman Leung DO Anesthesia : Local Estimated blood loss: Minimal Complications: None Condition: Stable Disposition: Palpable thrill left upper extremity loop graft, diminished flow to the radial and ulnar arteries Indications: 67-year-old female with history of end-stage renal disease on hemodialysis via left upper extremity loop AV graft presented to the ER secondary to thrombosis of her graft. She presents today for fissure gram and possible revascularization. Operative narrative: After written informed consent was obtained the patient all risks benefits competitions were described the patient is brought to the [facility] and laid in a supine position with their left arm outstretched on an armboard. The area of the arm was prepped and draped in usual sterile fashion. Utilizing local anesthetic the fistula was accessed under ultrasound guidance and a 6-Thai sheath was placed. Fistulogram was then obtained demonstrating thrombosed graft with areas of aneurysmal disease. Multiple areas of thrombus noted. 035 Glidewire was then placed across the lesion and a 6-Thai AngioJet was then placed and TPA was pulsed throughout the outflow of the loop graft into the cephalic vein. This was allowed to sit for 10-15 minutes and then pulse thrombectomy was performed in normal fashion throughout the outflow. Utilizing ultrasound the graft was then accessed again and a retrograde fashion towards the arterial anastomosis. 035 Glidewire was then placed across the anastomosis into the brachial artery followed by the AngioJet which was pulsed at that time. After 15 minutes the thrombectomy was performed and clot was removed. Fistulogram was then obtained demonstrating significant stenosis at the outflow as well as the inflow. A 7 x 40 mm drug-eluting balloon was then guided past the venous anastomosis and balloon angioplasty was performed in normal fashion. The inflow was then angioplastied with a 5 x 40 mm balloon. Final angiogram was obtained demonstrating brisk flow through the graft with diminished flow noted to the radial and ulnar arteries consistent with possible steal. The balloon was then placed at the graft and angiogram was again obtained demonstrating good brisk flow to the hand. All guidewires and catheters were then removed suture was placed at the access sites and pressure was held for hemostasis. Patient had palpable thrill as well as a slightly diminished radial pulse at the conclusion of the procedure. She states she is moving her hand and states her fingers feel back to normal. She'll be admitted under medicine and hemodialysis to be done tomorrow.
[2023-04-05 18:47] LABS: Glucose,Whole Blood 123 mg/dL (70-110)
[2023-04-05] MEDS ORDERED: ONDANSETRON 4 MG TAB PO PRN (19:56)
[2023-04-05] MEDS ORDERED: guaiFENesin SYRUP 100MG/5ML 200 MG/10 ML CUP PO PRN (19:56)
[2023-04-05] MEDS ORDERED: ACETAMINOPHEN TAB 325 MG TAB PO PRN (19:56)
[2023-04-05] MEDS ORDERED: LOPERAMIDE 2 MG CAP PO PRN (19:56)
[2023-04-05] MEDS ORDERED: bisacodyL 10 MG SUPP RECTAL PRN (19:56)
[2023-04-05] MEDS: ATORVASTATIN 40 MG TAB PO SCH (20:30)
[2023-04-05] MEDS: GABAPENTIN 100 MG CAP PO SCH (20:30)
[2023-04-05] MEDS: MONTELUKAST 10 MG TAB PO SCH (20:31)
[2023-04-05] MEDS: HYDROcodone/APAP 5-325MG 1 EACH TAB PO PRN (20:31)
--- NOTE | 2023-04-05 22:19 | P.HPIM ---
History of Present Illness H&P Date: 04/05/23 Chief Complaint: My horseshoe collapsed Patient is a 67-year-old female with a known history of ESRD on hemodialysis TTS left forearm AV graft, coronary artery disease history of stent placement, COPD, CVA/TIA with mild speech difficulty, diabetes type 2, hypertension, hyper lipidemia, history of PE, obstructive sleep apnea, hypothyroidism, anxiety/depression and other medical problems presents to ER with complaints of collapse of left upper extremity AV graft. Patient was placed on AV graft 2 months ago and has been working until yesterday when tried to access the graft at hemodialysis center yesterday and could not get hemodialysis. She was able to get hold hemodialysis with subcutaneous catheter. Otherwise patient denied any complaints of left upper extremity swelling or pain. Patient was instructed by Dr. Roper to be admitted to hospital for revision procedure. Patient denied any fever or chills. No complaints of chest pain or shortness of breath. No worsening leg swelling. No headache or dizziness or lightheadedness. Laboratory data showed WBC 7.2 hemoglobin 12.7 and platelets 149 Sodium 134 potassium 4.8 chloride 97 bicarb is 26 BUN 38 and creatinine 4.49 blood sugar 106. Review of Systems Constitutional: Patient denies any fever or chills . no Generalized weakness. Abdomen: Patient denied any nausea or vomiting or abd. pain Cardiovascular: Patient denies any chest pain or short of breath no palpitations. Respiratory: patient denied any cough . no sputum production. No shortness of breath Neurologic: Patient denied any numbness or tingling headache. Musculoskeletal: Patient denies any complaints of joint swelling or deformity. Skin: Negative Psychiatric: Negative Endocrine: No heat or cold intolerance. No recent weight gain. Genitourinary: No dysuria or hematuria. All other 14 point ROS negative except the above Past Medical History Past Medical History: Asthma, Coronary Artery Disease (CAD), Cancer, Heart Failure, COPD, CVA/TIA, Diabetes Mellitus, GI Bleed, Hyperlipidemia, Hypertension, Myocardial Infarction ([place]), Osteoarthritis (OA), Pulmonary Embolus (PE), Renal Disease, Rheumatoid Arthritis (RA), Sleep Apnea/CPAP/BIPAP, Syncope, Thyroid Disorder Additional Past Medical History / Comment(s): mild CVA 2021-left sided weaker,sp eech-slight difficulty with word recall,has some STM loss, Covid infection Mar 2022,uses bipap, peripheral neuropathy bilateral hands/feet, CKD , UTIs, legally blind bilaterally-sees minimally, thyroid cancer with surgery-no radiation or chemo, goiter, hashimotos, diverticular disease, 2013 upper and lower GI bleeds with blood loss anemia, gout, R humeral fracture with surgery., hx falls-able to stand and pivot for transfers-ambulates with rolling walker and assist., hx left ankle fxs., Hemodialysis // at [facility] in [place]., pt has RT chest port. , left forearm fistula., friend Shirley states patient can stand to transfer but uses wheelchair mostly, November Admission 2022 for [facility]- malfunctioning dialysis catheter. Last Myocardial Infarction Date:: 2009 History of Any Multi-Drug Resistant Organisms: VRE Date of last positivie culture/infection: 01/17/22 MDRO Source:: Urine Past Surgical History: Adenoidectomy, Back Surgery, Cholecystectomy, Heart Catheterization With Stent, Tonsillectomy Additional Past Surgical History / Comment(s): PCI with stent 2009 & 2018, low back surgery, total R shoulder and total R knee arthroplasties, bilateral hand trigger finger surgeries, EGD, colonoscopy, L eye laser eye surgery for bleed, thyroidectomy(2 surgeries total to remove all of thyroid).lt tib fib fx-plate and screws. lt arm Dialysis fistula,heart stents x2,heart cath x2 Past Anesthesia/Blood Transfusion Reactions: No Reported Reaction, Motion Sickness Additional Past Anesthesia/Blood Transfusion Reaction / Comment(s): no hx blood transfusion Date of Last Stent Placement:: Past Psychological History: Anxiety, Depression Smoking Status: Never smoker Past Alcohol Use History: None Reported Past Drug Use History: None Reported - Past Family History Mother Family Medical History: Asthma, CVA/TIA, Seizure Disorder Additional Family Medical History / Comment(s): epilepsy,pt states "mom had 21 strokes) Father Family Medical History: COPD, Diabetes Mellitus Additional Family Medical History / Comment(s): many heart problems Medications and Allergies Home Medications Medication Instructions Recorded Confirmed Type Levothyroxine Sodium [Synthroid] 175 mcg PO DAILY@0800 11/21/17 04/05/23 History Montelukast [Singulair] 10 mg PO HS@2100 11/21/17 04/05/23 History Atorvastatin [Lipitor] 40 mg PO HS@2100 09/08/20 04/05/23 History Cholecalciferol [Vitamin D3 (25 50 mcg PO DAILY@1700 12/09/20 04/05/23 History Mcg = 1000 Iu)] Acetaminophen Tab [Tylenol] 650 mg PO Q4H PRN 11/04/21 04/05/23 History Aspirin EC [Ecotrin Low Dose] 81 mg PO DAILY@1700 11/04/21 04/05/23 History Budesonide [Pulmicort] 0.5 mg INHALATION RT-BID@0700,1700 11/04/21 04/05/23 History Clopidogrel [Plavix] 75 mg PO DAILY@0800 11/04/21 04/05/23 History DULoxetine HCL [Cymbalta] 60 mg PO DAILY@0800 02/08/22 04/05/23 History Insulin Degludec [Tresiba] 20 units SQ HS@2130 02/08/22 04/05/23 History Isosorbide Mononitrate ER [Imdur] 30 mg PO BID@0800,1700 02/08/22 04/05/23 History Ondansetron [Zofran] 4 mg PO BID PRN 02/08/22 04/05/23 History Calcium Acetate [PhosLo] 1,334 mg PO TUTHSA@0600 04/12/22 04/05/23 History Furosemide [Lasix] 60 mg PO BID@0800,1700 08/06/22 04/05/23 History carvediloL [Coreg] 12.5 mg PO SUMOWEFR@0808/06/22 04/05/23 History Ipratropium-Albuterol Nebulize 3 ml INHALATION RT-Q6H PRN 09/28/22 04/05/23 History [Duoneb 0.5 mg-3 mg/3 ml Soln] Loperamide [Imodium] 2 mg PO QID PRN 09/28/22 04/05/23 History allopurinoL [Zyloprim] 100 mg PO DAILY@0800 09/28/22 04/05/23 History Calcium Acetate [PhosLo] 1,334 mg PO AC-BID@1200,1700 10/30/22 04/05/23 History Calcium Acetate [PhosLo] 667 mg PO HS 10/30/22 04/05/23 History Famotidine [Pepcid] 10 mg PO DAILY@0800 10/30/22 04/05/23 History Hydrocortisone Cream 1 applic TOPICAL BID PRN 10/30/22 04/05/23 History [Hydrocortisone 1% Cream] Interdry 10 1 applic TOPICAL BID@0800,2100 10/30/22 04/05/23 History Midodrine HCl 5 mg PO TUTHSA 10/30/22 04/05/23 History Renal Multivitamin Formula Tab 1 tab PO DAILY@1700 10/30/22 04/05/23 History bisacodyL [Dulcolax] 10 mg RECTAL DAILY PRN 10/30/22 04/05/23 History carvediloL [Coreg] 12.5 mg PO DAILY@1700 10/30/22 04/05/23 History guaiFENesin SYRUP 100MG/5ML 200 mg PO Q4H PRN 10/30/22 04/05/23 History [Robitussin] Insulin Aspart [NovoLOG] See Protocol SQ ACHS 12/31/22 04/05/23 History Sennosides-Docusate Sodium 1 tab PO BID@0800,1700 12/31/22 04/05/23 History [Senokot-S] amLODIPine [Norvasc] 10 mg PO DAILY@0800 12/31/22 04/05/23 History Gabapentin [Neurontin] 200 mg PO HS #3 cap 02/22/23 04/05/23 Rx HYDROcodone/APAP 5-325MG [[place] 1 tab PO Q8H PRN #4 tab 02/22/23 04/05/23 Rx 5-325] Calcium Acetate [Phoslo] 1,337 mg PO SUMOWEFR@0800 04/05/23 04/05/23 History Gabapentin [Neurontin] 100 mg PO DAILY@0800 04/05/23 04/05/23 History Liquacel 30 ml PO BID@0800,1700 04/05/23 04/05/23 History Vitamin E Cream 1 applic TOPICAL BID@0800,1700 04/05/23 04/05/23 History Allergies Allergy/AdvReac Type Severity Reaction Status Date / Time No Known Allergies Allergy Verified 04/05/23 10:55 Physical Exam Vitals: Vital Signs Temp Pulse Resp BP Pulse Ox 04/05/23 11:25 16 04/05/23 08:29 98 F 67 20 128/58 99 Intake and Output 04/04/23 04/05/23 04/05/23 22:59 06:59 14:59 Other: Weight 112.037 kg PHYSICAL EXAMINATION: Patient is lying in the bed, no acute distress, awake alert and oriented. obese. HEENT: Normocephalic. Neck is supple. Pupils reactive. Nostrils clear. Oral cavity is moist. Neck reveals no JVD, carotid bruits, or thyromegaly. CHEST EXAMINATION: Trachea is central. Symmetrical expansion. Bibasilar diminished sounds. No wheezing or rhonchi.. CARDIAC: Normal S1, S2 with no gallops. No murmurs ABDOMEN: Soft. Bowel sounds present. Nontender. No organomegaly. No abdominal bruits. Extremities: trace edema. No clubbing or cyanosis Neurologically awake, alert, oriented x3 with well-coordinated movements. No focal deficits noted Skin: No rash or skin lesions. Psychiatric: Coperative. Nonsuicidal, Musculoskeletal: No joint swelling or deformity. Normal range of motion. Results CBC & Chem 7: 04/05/23 08:53 04/05/23 08:53 Labs: Abnormal Lab Results - Last 24 Hours (Table) 04/05/23 04/05/23 Range/Units 08:53 08:53 MCV 100.6 H (80.0-100.0) fL Plt Count 149 L (150-450) k/uL Sodium 134 L (137-145) mmol/L Chloride 97 L (98-107) mmol/L BUN 38 H (7-17) mg/dL Creatinine 4.49 H (0.52-1.04) mg/dL Glucose 106 H (74-99) mg/dL Thrombosis Risk Factor Assmnt - DVT/VTE Prophylaxis DVT/VTE Prophylaxis: Pharmacologic Prophylaxis ordered Assessment and Plan Assessment: Left upper extremity AV graft malfunction/thrombosis. ESRD on hemodialysis. TTS. CAD with history of stent placement Chronic CHF with diastolic dysfunction Hypertension Diabetes type 2 insulin-dependent. Diabetic peripheral neuropathy History of [place] Remote arthritis Obstructive sleep apnea BiPAP at home. History of CVA with speech difficulty Legally blind bilaterally History of thyroid cancer status postsurgery. Hypothyroidism. History of GI bleed and acute blood loss anemia Anxiety/depression Legally blind bilaterally DVT prophylaxis with heparin subcu Plan: Patient will be continued on aspirin, Plavix and Imdur. Continue Levemir and sliding scale and Accu-Cheks before meals and at bedtime. Patient receives midodrine on dialysis days. Continue other home medications and follow-up closely. Vascular surgery was consulted and is planning to take her to OR for rombectomy Nephrology was consulted to continue with hemodialysis TTS. Time with Patient: Greater than 30
[2023-04-06] MEDS: HYDROcodone/APAP 5-325MG 1 EACH TAB PO PRN (03:40)
[2023-04-06 06:18] LABS: Glucose,Whole Blood 131 mg/dL (70-110)
[2023-04-06] MEDS: DULoxetine HCL 60 MG CAPSULE.DR PO SCH (08:37)
[2023-04-06] MEDS: allopurinoL 100 MG TAB PO SCH (08:38)
[2023-04-06] MEDS: ISOSORBIDE MONONITRATE ER 30 MG TAB.ER.24H PO SCH ×2 (08:38→17:07)
[2023-04-06] MEDS: CLOPIDOGREL 75 MG TAB PO SCH (08:38)
[2023-04-06] MEDS: SENNOSIDES-DOCUSATE SODIUM 1 EACH TAB PO SCH ×2 (08:38→17:07)
[2023-04-06] MEDS: FUROSEMIDE 20 MG TAB PO SCH ×2 (08:38→17:07)
[2023-04-06] MEDS: HEPARIN SODIUM,PORCINE 5,000 UNIT/ML 1 ML VIAL SQ SCH ×2 (08:39→21:16)
[2023-04-06] MEDS: FAMOTIDINE 20 MG TAB PO SCH (08:39)
[2023-04-06] MEDS: NON FORMULARY DRUG (Liquacel 30 ML) PO SCH ×2 (08:40→16:56)
[2023-04-06] MEDS: LEVOTHYROXINE 88 MCG TAB PO SCH (08:49)
[2023-04-06] MEDS: GABAPENTIN 100 MG CAP PO SCH ×2 (08:49→21:16)
[2023-04-06] MEDS: BUDESONIDE 0.5 MG/2 ML NEBU INHALATION SCH ×2 (09:45→19:21)
[2023-04-06 09:46] LABS: BUN/Creat Ratio 7.77 Ratio (12.00-20.00); Blood Urea Nitrogen 43.5 mg/dL (9.0-27.0); Calcium 8.9 mg/dL (8.7-10.3); Carbon Dioxide 24.2 mmol/L (21.6-31.8); Chloride 97 mmol/L (96-109); Glucose 149 mg/dL (70-110); Phosphorus 5.3 mg/dL (2.4-5.1); Potassium 5.3 mmol/L (3.5-5.5); Sodium 134 mmol/L (135-145)
[2023-04-06 09:50] LABS: Basophils # (A) 0.01 X 10*3/uL (0.00-0.10); Basophils % (A) 0.1 %; Eosinophils # (A) 0.29 X 10*3/uL (0.04-0.35); Eosinophils % (A) 4.1 %; HCT 37.4 % (37.2-46.3); HGB 11.6 d/dL (12.0-15.0); Lymphocytes # (A) 2.23 X 10*3/uL (0.90-5.00); Lymphocytes % (A) 31.9 %; MCH 31.5 pg (27.0-32.0); MCV 101.6 FL (80.0-97.0); Mean Platelet Volume 10.3 FL (9.5-12.2); Monocytes # (A) 0.77 X 10*3/uL (0.20-1.00); NRBC Per 100 WBC 0 X 10*3/uL (0.00-0.01); Neutrophils # (A) 3.68 X 10*3/uL (1.80-7.70); Neutrophils % (A) 52.6 %; Platelet Count 130 X 10*3/uL (140-440); RBC 3.68 X 10*6/uL (4.10-5.20); RDW 14.3 % (11.5-14.5)
--- NOTE | 2023-04-06 10:18 | P.NPCON ---
History of Present Illness - Reason for Consult end stage renal disease - History of Present Illness Patient is a 67-year-old female with end-stage renal disease maintained on hemodialysis on a Saturday schedule via left forearm AV graft. Patient also has an IJ permacath which was scheduled to be removed as the left arm access was working well. Yesterday patient was noted to have no thrill or bruit on the access and she was sent to the hospital. Patient is status post thrombo-lysis and thrombectomy of AV graft with angioplasty of stenotic area on 04/05/2023. Patient is scheduled for hemodialysis today. Patient denies any complaints of nausea vomiting abdominal pain or diarrhea. No complaints of chest pains or shortness of breath. Review of Systems As per HPI Past Medical History Past Medical History: Asthma, Coronary Artery Disease (CAD), Cancer, Heart Failure, COPD, CVA/TIA, Diabetes Mellitus, GI Bleed, Hyperlipidemia, Hypertension, Myocardial Infarction ([place]), Osteoarthritis (OA), Pulmonary Embolus (PE), Renal Disease, Rheumatoid Arthritis (RA), Sleep Apnea/CPAP/BIPAP, Syncope, Thyroid Disorder Additional Past Medical History / Comment(s): mild CVA 2021-left sided weaker,s peech-slight difficulty with word recall,has some STM loss, Covid infection Mar 2022,uses bipap, peripheral neuropathy bilateral hands/feet, CKD , UTIs, legally blind bilaterally-sees minimally, thyroid cancer with surgery-no radiation or chemo, goiter, hashimotos, diverticular disease, 2013 upper and lower GI bleeds with blood loss anemia, gout, R humeral fracture with surgery., hx falls-able to stand and pivot for transfers-ambulates with rolling walker and assist., hx left ankle fxs., Hemodialysis at [facility] in [place]., pt has RT chest port. , left forearm fistula., friend Shirley states patient can stand to transfer but uses wheelchair mostly, November Admission 2022 for [facility]- malfunctioning dialysis catheter. Last Myocardial Infarction Date:: 2009 History of Any Multi-Drug Resistant Organisms: VRE Date of last positivie culture/infection: 01/17/22 MDRO Source:: Urine Past Surgical History: Adenoidectomy, Back Surgery, Cholecystectomy, Heart Catheterization With Stent, Tonsillectomy Additional Past Surgical History / Comment(s): PCI with stent 2009 & 2019, low back surgery, total R shoulder and total R knee arthroplasties, bilateral hand trigger finger surgeries, EGD, colonoscopy, L eye laser eye surgery for bleed, thyroidectomy(2 surgeries total to remove all of thyroid).lt tib fib fx-plate and screws. lt arm Dialysis fistula,heart stents x2,heart cath x2 Past Anesthesia/Blood Transfusion Reactions: No Reported Reaction, Motion Sickness Additional Past Anesthesia/Blood Transfusion Reaction / Comment(s): no hx blood transfusion Date of Last Stent Placement:: 2009,2018 Past Psychological History: Anxiety, Depression Smoking Status: Never smoker Past Alcohol Use History: None Reported Past Drug Use History: None Reported - Past Family History Mother Family Medical History: Asthma, CVA/TIA, Seizure Disorder Additional Family Medical History / Comment(s): epilepsy,pt states "mom had 21 strokes) Father Family Medical History: COPD, Diabetes Mellitus Additional Family Medical History / Comment(s): many heart problems Medications and Allergies Home Medications Medication Instructions Recorded Confirmed Type Levothyroxine Sodium [Synthroid] 175 mcg PO DAILY@0811/21/17 04/05/23 History Montelukast [Singulair] 10 mg PO HS@209911/21/17 04/05/23 History Atorvastatin [Lipitor] 40 mg PO HS@209909/08/20 04/05/23 History Cholecalciferol [Vitamin D3 (25 50 mcg PO DAILY@169912/09/20 04/05/23 History Mcg = 1000 Iu)] Acetaminophen Tab [Tylenol] 650 mg PO Q4H PRN 11/04/21 04/05/23 History Aspirin EC [Ecotrin Low Dose] 81 mg PO DAILY@169911/04/21 04/05/23 History Budesonide [Pulmicort] 0.5 mg INHALATION RT-BID@0700,1700 11/04/21 04/05/23 History Clopidogrel [Plavix] 75 mg PO DAILY@0811/04/21 04/05/23 History DULoxetine HCL [Cymbalta] 60 mg PO DAILY@0800 02/08/22 04/05/23 History Insulin Degludec [Tresiba] 20 units SQ HS@212902/08/22 04/05/23 History Isosorbide Mononitrate ER [Imdur] 30 mg PO BID@0800,1700 02/08/22 04/05/23 History Ondansetron [Zofran] 4 mg PO BID PRN 02/08/22 04/05/23 History Calcium Acetate [PhosLo] 1,334 mg PO TUTHSA@0600 04/12/22 04/05/23 History Furosemide [Lasix] 60 mg PO BID@0800,1700 08/06/22 04/05/23 History carvediloL [Coreg] 12.5 mg PO SUMOWEFR@0800 08/06/22 04/05/23 History Ipratropium-Albuterol Nebulize 3 ml INHALATION RT-Q6H PRN 09/28/22 04/05/23 History [Duoneb 0.5 mg-3 mg/3 ml Soln] Loperamide [Imodium] 2 mg PO QID PRN 09/28/22 04/05/23 History allopurinoL [Zyloprim] 100 mg PO DAILY@0800 09/28/22 04/05/23 History Calcium Acetate [PhosLo] 1,334 mg PO AC-BID@1200,1700 10/30/22 04/05/23 History Calcium Acetate [PhosLo] 667 mg PO HS 10/30/22 04/05/23 History Famotidine [Pepcid] 10 mg PO DAILY@0800 10/30/22 04/05/23 History Hydrocortisone Cream 1 applic TOPICAL BID PRN 10/30/22 04/05/23 History [Hydrocortisone 1% Cream] Interdry 10 1 applic TOPICAL BID@0800,2100 10/30/22 04/05/23 History Midodrine HCl 5 mg PO TUTHSA 10/30/22 04/05/23 History Renal Multivitamin Formula Tab 1 tab PO DAILY@1700 10/30/22 04/05/23 History bisacodyL [Dulcolax] 10 mg RECTAL DAILY PRN 10/30/22 04/05/23 History carvediloL [Coreg] 12.5 mg PO DAILY@1700 10/30/22 04/05/23 History guaiFENesin SYRUP 100MG/5ML 200 mg PO Q4H PRN 10/30/22 04/05/23 History [Robitussin] Insulin Aspart [NovoLOG] See Protocol SQ ACHS 12/31/22 04/05/23 History Sennosides-Docusate Sodium 1 tab PO BID@0800,1700 12/31/22 04/05/23 History [Senokot-S] amLODIPine [Norvasc] 10 mg PO DAILY@0800 12/31/22 04/05/23 History Gabapentin [Neurontin] 200 mg PO HS #3 cap 02/22/23 04/05/23 Rx HYDROcodone/APAP 5-325MG [[place] 1 tab PO Q8H PRN #4 tab 02/22/23 04/05/23 Rx 5-325] Calcium Acetate [Phoslo] 1,337 mg PO SUMOWEFR@0800 04/05/23 04/05/23 History Gabapentin [Neurontin] 100 mg PO DAILY@0800 04/05/23 04/05/23 History Liquacel 30 ml PO BID@0800,1700 04/05/23 04/05/23 History Vitamin E Cream 1 applic TOPICAL BID@0800,1700 04/05/23 04/05/23 History Allergies Allergy/AdvReac Type Severity Reaction Status Date / Time No Known Allergies Allergy Verified 04/05/23 10:55 Physical Exam Vitals: Vital Signs Temp Pulse Pulse Resp BP BP Pulse Ox 04/06/23 08:00 77 16 04/06/23 07:00 97.6 F 77 16 109/64 98 04/06/23 02:04 97.9 F 101 H 16 103/52 98 04/05/23 18:52 97.6 F 63 16 111/58 96 04/05/23 14:00 97.0 F L 68 20 110/63 98 04/05/23 11:25 16 Intake and Output 04/05/23 04/06/23 04/06/23 22:59 06:59 14:59 Intake Total 200 Balance 200 Intake: IV 200 Other: Voiding Method Toilet Toilet # Voids 1 Weight 112.037 kg Patient is awake, comfortable, not in any acute distress Alert oriented 3 Examination of the heart S1 and S2 Examination of the lungs bilateral breath sounds are heard Abdomen is soft nontender Examination of lower extremities shows no significant edema 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 End-stage renal disease on hemodialysis on a Saturday schedule 2. Thrombosed AV graft status post thrombectomy and angioplasty on 04/05/2023 3. CK D mineral bone disorder 4. Hypertension with CK D5 Plan: Hemodialysis today using AV graft. IJ permacath will be removed as outpatient depending on how the access functions Continue with phosphate binders Patient can be discharged post hemodialysis if the procedure is uneventful.
[2023-04-06] MEDS ORDERED: MIDODRINE 5 MG TAB PO ONE (11:15)
[2023-04-06] MEDS ORDERED: MIDODRINE 5 MG TAB PO PRN (11:25)
[2023-04-06] MEDS: SODIUM CHLORIDE 0.9% 1,000 ML IV SCH (11:26)
[2023-04-06 11:46] LABS: Glucose,Whole Blood 178 mg/dL (70-110)
--- NOTE | 2023-04-06 15:27 | P.PN ---
Progress Note - Text Progress Note Date: 04/06/23 patient seen and examined. Doing well since procedure. Currently getting dialysis. geological technician unable to get two needles to work but states graft is open. VSS- Afebrile Left upper extremity loop graft with palpable thrill and good augmentation. ESRD on HD Thrombosed left upper extremity loop graft s/p thrombectomy - Ok for discharge - ok to use loop graft. - follow up with Dr. Roper in office
[2023-04-06] MEDS: carvediloL 12.5 MG TAB PO SCH (17:07)
[2023-04-06] MEDS: ASPIRIN 81 MG PO SCH (17:07)
[2023-04-06] MEDS: FOLIC ACID-VIT B COMPLEX-VIT C 1 CAP PO SCH (17:07)
[2023-04-06] MEDS: CHOLECALCIFEROL 25 MCG (1000 IU) TABLET PO SCH (17:07)
[2023-04-06 17:20] LABS: Glucose,Whole Blood 177 mg/dL (70-110)
[2023-04-06] MEDS: IPRATROPIUM-ALBUTEROL 3 ML NEB INHALATION PRN (19:21)
[2023-04-06 20:23] LABS: Glucose,Whole Blood 232 mg/dL (70-110)
[2023-04-06] MEDS: ATORVASTATIN 40 MG TAB PO SCH (21:16)
[2023-04-06] MEDS: MONTELUKAST 10 MG TAB PO SCH (21:17)
[2023-04-07] MEDS: CALCIUM ACETATE 667 MG TAB PO SCH (08:43)
[2023-04-07] MEDS: DULoxetine HCL 60 MG CAPSULE.DR PO SCH (08:45)
[2023-04-07] MEDS: SENNOSIDES-DOCUSATE SODIUM 1 EACH TAB PO SCH ×2 (08:45→17:13)
[2023-04-07] MEDS: ISOSORBIDE MONONITRATE ER 30 MG TAB.ER.24H PO SCH ×2 (08:45→17:16)
[2023-04-07] MEDS: SODIUM CHLORIDE 0.9% 1,000 ML IV SCH (08:45)
[2023-04-07] MEDS: carvediloL 12.5 MG TAB PO SCH ×2 (08:45→17:13)
[2023-04-07] MEDS: HEPARIN SODIUM,PORCINE 5,000 UNIT/ML 1 ML VIAL SQ SCH ×2 (08:45→22:09)
[2023-04-07] MEDS: CLOPIDOGREL 75 MG TAB PO SCH (08:45)
[2023-04-07] MEDS: allopurinoL 100 MG TAB PO SCH (08:45)
[2023-04-07] MEDS: FAMOTIDINE 20 MG TAB PO SCH (08:46)
[2023-04-07] MEDS: NON FORMULARY DRUG (Liquacel 30 ML) PO SCH ×2 (08:46→17:14)
[2023-04-07] MEDS: FUROSEMIDE 20 MG TAB PO SCH ×2 (08:54→17:13)
[2023-04-07] MEDS: GABAPENTIN 100 MG CAP PO SCH ×2 (08:54→22:09)
[2023-04-07] MEDS: LEVOTHYROXINE 88 MCG TAB PO SCH (08:54)
[2023-04-07 09:10] LABS: BUN/Creat Ratio 6.83 Ratio (12.00-20.00); Blood Urea Nitrogen 31.4 mg/dL (9.0-27.0); Calcium 8.4 mg/dL (8.7-10.3); Carbon Dioxide 24.3 mmol/L (21.6-31.8); Chloride 98 mmol/L (96-109); Glucose 154 mg/dL (70-110); Potassium 5.1 mmol/L (3.5-5.5); Sodium 134 mmol/L (135-145)
[2023-04-07] MEDS: BUDESONIDE 0.5 MG/2 ML NEBU INHALATION SCH ×2 (09:55→20:50)
--- NOTE | 2023-04-07 11:31 | P.PN ---
Subjective patient is seen for follow-up for end-stage renal disease. admitted with thrombosed AV graft status post thrombectomy on 04/05/2023 The dialysis nurse could not access the second needle in the AV graft yesterday and therefore the permacath was used. no complaints today. Objective - Vital Signs Vital signs: Vital Signs Temp 97.9 F 04/07/23 07:00 Pulse 77 04/07/23 08:00 Resp 16 04/07/23 08:00 BP 111/77 04/07/23 07:00 Pulse Ox 97 04/07/23 07:00 FiO2 Intake & Output 04/06/23 04/07/23 04/07/23 18:59 06:59 18:59 Intake Total 818 118 Output Total 1999 Balance -1182 118 Intake: Oral 118 118 Hemodialysis 700 Output: Hemodialysis 1999 Other: Voiding Method Toilet Toilet Toilet # Voids 1 2 - Exam Patient is awake, comfortable, not in any acute distress Alert oriented 3 Examination of the heart S1 and S2 Examination of the lungs bilateral breath sounds are heard Abdomen is soft nontender Examination of lower extremities shows no significant edema 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00) Ratio Glucose 154 H (70-110) mg/dL POC Glucose (mg/dL) (70-110) mg/dL Calcium 8.4 L (8.7-10.3) mg/dL Assessment and Plan Assessment: 1. End-stage renal disease on hemodialysis on a Saturday schedule 2. Thrombosed AV graft status post thrombectomy and angioplasty on 04/05/2023. Dialysis nurse could not access the second needle yesterday and therefore the permacath was used for dialysis. 3. CK D mineral bone disorder 4. Hypertension with CK D5 Plan: patient can be discharged from nephrology standpoint and follow for hemodialysis on 04/09/2023 as outpatient. we will try to recannulate the access on Saturday.
[2023-04-07] MEDS: CHOLECALCIFEROL 25 MCG (1000 IU) TABLET PO SCH (17:13)
[2023-04-07] MEDS: ASPIRIN 81 MG PO SCH (17:13)
[2023-04-07] MEDS: FOLIC ACID-VIT B COMPLEX-VIT C 1 CAP PO SCH (17:13)
[2023-04-07 20:43] LABS: Glucose,Whole Blood 201 mg/dL (70-110)
[2023-04-07] MEDS: IPRATROPIUM-ALBUTEROL 3 ML NEB INHALATION PRN (20:50)
[2023-04-07] MEDS: MONTELUKAST 10 MG TAB PO SCH (22:09)
[2023-04-07] MEDS: ATORVASTATIN 40 MG TAB PO SCH (22:09)
--- NOTE | 2023-04-08 01:08 | P.PN ---
Subjective Progress Note Date: 04/06/23 Patient is a 67-year-old female with a known history of ESRD on hemodialysis TTS left forearm AV graft, coronary artery disease history of stent placement, COPD, CVA/TIA with mild speech difficulty, diabetes type 2, hypertension, hyperlipidemia, history of PE, obstructive sleep apnea, hypothyroidism, anxi ety/depression and other medical problems presents to ER with complaints of collapse of left upper extremity AV graft. Patient was placed on AV graft 2 months ago and has been working until yesterday when tried to access the graft at hemodialysis center yesterday and could not get hemodialysis. She was able to get hold hemodialysis with subcutaneous catheter. Otherwise patient denied any complaints of left upper extremity swelling or pain. Patient was instructed by Dr. Roper to be admitted to hospital for revision procedure. Patient denied any fever or chills. No complaints of chest pain or shortness of breath. No worsening leg swelling. No headache or dizziness or lightheadedness. Laboratory data showed WBC 7.2 hemoglobin 12.7 and platelets 149 Sodium 134 potassium 4.8 chloride 97 bicarb is 26 BUN 38 and creatinine 4.49 blood sugar 106. 04/06/2023 Patient is currently resting in bed. No chest pain or shortness of breath. No nausea vomiting or abdominal pain or diarrhea. Patient underwent hemodialysis today. Unable to access the graft. Patient had complete hemodialysis using right permacath. Vascular surgery is okay to use loop graft. Patient has been afebrile. No cough or sputum production. No headache or dizziness or lightheadedness. Laboratory data showed sodium 134 potassium 5.3 chloride 97 bicarb is 24.2 BUN 43.5 and creatinine 5.6. Phosphorus 5.3. Patient will be 20 calcium acetate/PhosLo. Nephrology is on board. Next hemodialysis on Saturday. Current medications reviewed. Objective - Vital Signs Vital signs: Vital Signs Temp 98.3 F 04/06/23 19:33 Pulse 71 04/06/23 20:00 Resp 18 04/06/23 20:00 BP 94/48 04/06/23 19:33 Pulse Ox 95 04/06/23 19:33 FiO2 Intake & Output 04/06/23 04/06/23 04/07/23 06:59 18:59 06:59 Intake Total 818 Output Total 1999 Balance -1182 Weight 112.037 kg Intake: Oral 118 Hemodialysis 700 Output: Hemodialysis 1999 Other: Voiding Method Toilet Toilet Toilet # Voids 1 1 1 - Exam PHYSICAL EXAMINATION: Patient is lying in the bed, no acute distress, awake alert and oriented. obese. HEENT: Normocephalic. Neck is supple. Pupils reactive. Nostrils clear. Oral cavity is moist. Neck reveals no JVD, carotid bruits, or thyromegaly. CHEST EXAMINATION: Trachea is central. Symmetrical expansion. Bibasilar diminished sounds. No wheezing or rhonchi.. CARDIAC: Normal S1, S2 with no gallops. No murmurs ABDOMEN: Soft. Bowel sounds present. Nontender. No organomegaly. No abdominal bruits. Extremities: trace edema. No clubbing or cyanosis Neurologically awake, alert, oriented x3 with well-coordinated movements. No focal deficits noted Skin: No rash or skin lesions. Psychiatric: Coperative. Nonsuicidal, Musculoskeletal: No joint swelling or deformity. Normal range of motion. - Labs CBC & Chem 7: 04/06/23 05:44 04/07/23 05:48 Labs: Abnormal Lab Results - Last 24 Hours (Table) 04/06/23 04/06/23 04/06/23 Range/Units 05:44 05:44 06:16 RBC 3.68 L (4.10-5.20) X 10*6/uL Hgb 11.6 L (12.0-15.0) d/dL MCV 101.6 H (80.0-97.0) FL MCHC 31.0 L (32.0-37.0) d/dL Plt Count 130 L (140-440) X 10*3/uL Sodium 134 L (135-145) mmol/L Anion Gap 12.80 H (4.00-12.00) mmol/L BUN 43.5 H (9.0-27.0) mg/dL Creatinine 5.6 H (0.6-1.5) mg/dL Est GFR (CKD-EPI) 8 L (>=60) BUN/Creatinine Ratio 7.77 L (12.00-20.00) Ratio Glucose 149 H (70-110) mg/dL POC Glucose (mg/dL) 131 H (70-110) mg/dL Phosphorus 5.3 H (2.4-5.1) mg/dL 04/06/23 04/06/23 04/06/23 Range/Units 11:44 17:18 20:22 RBC (4.10-5.20) X 10*6/uL Hgb (12.0-15.0) d/dL MCV (80.0-97.0) FL MCHC (32.0-37.0) d/dL Plt Count (140-440) X 10*3/uL Sodium (135-145) mmol/L Anion Gap (4.00-12.00) mmol/L BUN (9.0-27.0) mg/dL Creatinine (0.6-1.5) mg/dL Est GFR (CKD-EPI) (>=60) BUN/Creatinine Ratio (12.00-20.00) Ratio Glucose (70-110) mg/dL POC Glucose (mg/dL) 178 H 177 H 232 H (70-110) mg/dL Phosphorus (2.4-5.1) mg/dL Assessment and Plan Assessment: Left upper extremity AV graft malfunction/thrombosis. Status post thrombectomy by vascular surgery. ESRD on hemodialysis. TTS. CAD with history of stent placement Chronic CHF with diastolic dysfunction Hypertension Diabetes type 2 insulin-dependent. Diabetic peripheral neuropathy History of [place] Remote arthritis Obstructive sleep apnea BiPAP at home. History of CVA with speech difficulty Legally blind bilaterally History of thyroid cancer status postsurgery. Hypothyroidism. History of GI bleed and acute blood loss anemia Anxiety/depression Legally blind bilaterally DVT prophylaxis with heparin subcu Plan: Patient underwent hemodialysis today. Hemodialysis tech could not able to access loop graft. Was able to use permacath. Patient will be continued on aspirin, Plavix and Imdur. Continue Levemir and sliding scale and Accu-Cheks before meals and at bedtime. Patient receives midodrine on dialysis days. Continue other home medications and follow-up closely. Nephrology is following. continue with hemodialysis TTS.
--- NOTE | 2023-04-08 01:10 | P.PN ---
Subjective Progress Note Date: 04/07/23 Patient is a 67-year-old female with a known history of ESRD on hemodialysis TTS left forearm AV graft, coronary artery disease history of stent placement, COPD, CVA/TIA with mild speech difficulty, diabetes type 2, hypertension, hyperlipidemia, history of PE, obstructive sleep apnea, hypothyroidism, anxi ety/depression and other medical problems presents to ER with complaints of collapse of left upper extremity AV graft. Patient was placed on AV graft 2 months ago and has been working until yesterday when tried to access the graft at hemodialysis center yesterday and could not get hemodialysis. She was able to get hold hemodialysis with subcutaneous catheter. Otherwise patient denied any complaints of left upper extremity swelling or pain. Patient was instructed by Dr. Roper to be admitted to hospital for revision procedure. Patient denied any fever or chills. No complaints of chest pain or shortness of breath. No worsening leg swelling. No headache or dizziness or lightheadedness. Laboratory data showed WBC 7.2 hemoglobin 12.7 and platelets 149 Sodium 134 potassium 4.8 chloride 97 bicarb is 26 BUN 38 and creatinine 4.49 blood sugar 106. 04/06/2023 Patient is currently resting in bed. No chest pain or shortness of breath. No nausea vomiting or abdominal pain or diarrhea. Patient underwent hemodialysis today. Unable to access the graft. Patient had complete hemodialysis using right permacath. Vascular surgery is okay to use loop graft. Patient has been afebrile. No cough or sputum production. No headache or dizziness or lightheadedness. Laboratory data showed sodium 134 potassium 5.3 chloride 97 bicarb is 24.2 BUN 43.5 and creatinine 5.6. Phosphorus 5.3. Patient will be 20 calcium acetate/PhosLo. Nephrology is on board. Next hemodialysis on Saturday. 04/07/2023 Patient is resting in the bed. Awake alert x3. No fever no chills. No cough or sputum production. No headache or dizziness or lightheadedness. Patient underwent hemodialysis yesterday. Anticipate discharge back to [facility] tomorrow. Laboratory test showed sodium 134 potassium 5.1 chloride 98 bicarb is 24.3 BUN 31.4 and creatinine 4.6 and blood sugar 154. Current medications reviewed. Objective - Vital Signs Vital signs: Vital Signs Temp 97.4 F L 04/07/23 15:00 Pulse 76 04/07/23 21:01 Resp 16 04/07/23 15:00 BP 116/63 04/07/23 15:00 Pulse Ox 95 04/07/23 15:00 FiO2 Intake & Output 04/07/23 04/07/23 04/08/23 06:59 18:59 06:59 Intake Total 476 Balance 476 Intake: Oral 476 Other: Voiding Method Toilet Toilet # Voids 2 1 - Exam PHYSICAL EXAMINATION: Patient is lying in the bed, no acute distress, awake alert and oriented. obese. HEENT: Normocephalic. Neck is supple. Pupils reactive. Nostrils clear. Oral cavity is moist. Neck reveals no JVD, carotid bruits, or thyromegaly. CHEST EXAMINATION: Trachea is central. Symmetrical expansion. Bibasilar diminished sounds. No wheezing or rhonchi.. CARDIAC: Normal S1, S2 with no gallops. No murmurs ABDOMEN: Soft. Bowel sounds present. Nontender. No organomegaly. No abdominal bruits. Extremities: trace edema. No clubbing or cyanosis Neurologically awake, alert, oriented x3 with well-coordinated movements. No focal deficits noted Skin: No rash or skin lesions. Psychiatric: Coperative. Nonsuicidal, Musculoskeletal: No joint swelling or deformity. Normal range of motion. - Labs CBC & Chem 7: 04/06/23 05:44 04/07/23 05:48 Labs: Abnormal Lab Results - Last 24 Hours (Table) 04/07/23 04/07/23 Range/Units 05:48 20:42 Sodium 134 L (135-145) mmol/L BUN 31.4 H (9.0-27.0) mg/dL Creatinine 4.6 H (0.6-1.5) mg/dL Est GFR (CKD-EPI) 10 L (>=60) BUN/Creatinine Ratio 6.83 L (12.00-20.00) Ratio Glucose 154 H (70-110) mg/dL POC Glucose (mg/dL) 201 H (70-110) mg/dL Calcium 8.4 L (8.7-10.3) mg/dL Assessment and Plan Assessment: Left upper extremity AV graft malfunction/thrombosis. Status post thrombectomy by vascular surgery. ESRD on hemodialysis. TTS. CAD with history of stent placement Chronic CHF with diastolic dysfunction Hypertension Diabetes type 2 insulin-dependent. Diabetic peripheral neuropathy History of [place] Remote arthritis Obstructive sleep apnea BiPAP at home. History of CVA with speech difficulty Legally blind bilaterally History of thyroid cancer status postsurgery. Hypothyroidism. History of GI bleed and acute blood loss anemia Anxiety/depression Legally blind bilaterally DVT prophylaxis with heparin subcu Plan: Patient underwent hemodialysis today. Hemodialysis tech could not able to access loop graft. Was able to use permacath on 04/06.Next hemodialysis on 04/09/2023 . Patient will be continued on aspirin, Plavix and Imdur. Continue Levemir and sliding scale and Accu-Cheks before meals and at bedtime. Patient receives midodrine on dialysis days. Continue other home medications and follow-up closely. Follow-up with Dr. Roper Nephrology is following. continue with hemodialysis TTS.
[2023-04-08] MEDS: FUROSEMIDE 20 MG TAB PO SCH (09:28)
[2023-04-08] MEDS: LEVOTHYROXINE 88 MCG TAB PO SCH (09:28)
[2023-04-08] MEDS: FAMOTIDINE 20 MG TAB PO SCH (09:29)
[2023-04-08] MEDS: carvediloL 12.5 MG TAB PO SCH (09:30)
[2023-04-08] MEDS: allopurinoL 100 MG TAB PO SCH (09:30)
[2023-04-08] MEDS: CLOPIDOGREL 75 MG TAB PO SCH (09:30)
[2023-04-08] MEDS: DULoxetine HCL 60 MG CAPSULE.DR PO SCH (09:30)
[2023-04-08] MEDS: ISOSORBIDE MONONITRATE ER 30 MG TAB.ER.24H PO SCH (09:30)
[2023-04-08] MEDS: NON FORMULARY DRUG (Liquacel 30 ML) PO SCH (09:36)
[2023-04-08] MEDS: SENNOSIDES-DOCUSATE SODIUM 1 EACH TAB PO SCH (09:37)
[2023-04-08] MEDS: CALCIUM ACETATE 667 MG TAB PO SCH (09:37)
[2023-04-08] MEDS: HEPARIN SODIUM,PORCINE 5,000 UNIT/ML 1 ML VIAL SQ SCH (09:38)
[2023-04-08] MEDS: IPRATROPIUM-ALBUTEROL 3 ML NEB INHALATION PRN (09:42)
[2023-04-08] MEDS: BUDESONIDE 0.5 MG/2 ML NEBU INHALATION SCH (09:43)
[2023-04-08] MEDS: GABAPENTIN 100 MG CAP PO SCH (09:52)
--- NOTE | 2023-04-08 11:05 | P.PN ---
Subjective Progress Note Date: 04/08/23 Principal diagnosis: Malfunctioning graft Patient seen and examined today as a follow-up for left upper extremity thrombosed loop graft. Patient underwent fistulogram with thrombolysis and thrombectomy as well as balloon angioplasty of her left AV loop graft. The patient denies any pain in her left upper extremity. She underwent dialysis on Saturday however the only able to get one needle and so she had dialysis through her tunneled catheter. Plan is for discharge today back to [facility]. Objective - Vital Signs Vital signs: Vital Signs Temp 97.8 F 04/08/23 07:00 Pulse 68 04/08/23 09:57 Resp 16 04/08/23 07:00 BP 99/57 04/08/23 07:00 Pulse Ox 98 04/08/23 07:00 FiO2 Intake & Output 04/07/23 04/08/23 04/08/23 18:59 06:59 18:59 Intake Total 476 Balance 476 Intake: Oral 476 Other: Voiding Method Toilet Toilet # Voids 1 2 - Exam General appearance: The patient is alert, oriented, appears in no acute distress. HET: Head is normocephalic and atraumatic. Pupils are equal and reactive. Neck: Supple. Abdomen: Nondistended. Extremities: Normal skin color and turgor. Left palpable radial pulse. Pa lpable thrill left upper extremity Loop graft with audible bruit. No redness or swelling. Neurological: No focal deficits. - Labs CBC & Chem 7: 04/06/23 05:44 04/07/23 05:48 Labs: Abnormal Lab Results - Last 24 Hours (Table) 04/07/23 Range/Units 20:42 POC Glucose (mg/dL) 201 H (70-110) mg/dL Assessment and Plan Assessment: 1. Thrombosed left upper extremity forearm loop graft status post thrombolysis, thrombectomy with balloon angioplasty of left upper extremity loop AV graft 2. End-stage renal disease on hemodialysis Plan: Patient with palpable thrill and audible bruit of left upper extremity loop graft. Cleared for discharge from vascular surgery. Continue dialysis as recommended by nephrology. Patient to follow-up with Dr. Roper in the next week. The impression and plan of care has been dictated as directed. I performed a history and examination of this patient, discussed the same with the dictator. I agree with the dictator's note ,documented as a scribe. Any additional findings or plans will be noted.
[2023-04-08 11:30] LABS: BUN/Creat Ratio 7.98 Ratio (12.00-20.00); Blood Urea Nitrogen 47.9 mg/dL (9.0-27.0); Calcium 9.1 mg/dL (8.7-10.3); Carbon Dioxide 23.2 mmol/L (21.6-31.8); Chloride 96 mmol/L (96-109); Glucose 126 mg/dL (70-110); Potassium 5.1 mmol/L (3.5-5.5); Sodium 134 mmol/L (135-145)
[2023-04-08 11:39] LABS: Glucose,Whole Blood 200 mg/dL (70-110)
--- NOTE | 2023-04-08 13:09 | P.PN ---
Subjective Patient is seen in follow-up for end-stage renal disease. She is maintained on hemodialysis on Saturday schedule. Resting in bed. No active complaints. Possible discharge today. Vital signs are stable. General: No acute distress. HEENT: Head exam is unremarkable. LUNGS: No audible rhonchi or wheezes. HEART: Rate and Rhythm are regular. ABDOMEN: Nontender. EXTREMITITES: No edema. Objective - Vital Signs Vital signs: Vital Signs Temp 97.8 F 04/08/23 07:00 Pulse 68 04/08/23 09:57 Resp 16 04/08/23 08:00 BP 99/57 04/08/23 07:00 Pulse Ox 98 04/08/23 07:00 FiO2 Intake & Output 04/07/23 04/08/23 04/08/23 18:59 06:59 18:59 Intake Total 476 Balance 476 Intake: Oral 476 Other: Voiding Method Toilet Toilet Toilet # Voids 1 2 - Labs CBC & Chem 7: 04/06/23 05:44 04/08/23 07:42 Labs: Abnormal Lab Results - Last 24 Hours (Table) 04/07/23 04/08/23 04/08/23 Range/Units 20:42 07:42 11:35 Sodium 134 L (135-145) mmol/L Anion Gap 14.80 H (4.00-12.00) mmol/L BUN 47.9 H (9.0-27.0) mg/dL Creatinine 6.0 H (0.6-1.5) mg/dL Est GFR (CKD-EPI) 7 L (>=60) BUN/Creatinine Ratio 7.98 L (12.00-20.00) Ratio Glucose 126 H (70-110) mg/dL POC Glucose (mg/dL) 201 H 200 H (70-110) mg/dL Assessment and Plan Plan: Assessment: 1. End-stage renal disease maintained on hemodialysis on Saturday schedule. 2. Thrombosed left upper extremity AV graft status post thrombectomy with balloon angioplasty. 3. Chronic kidney disease mineral bone disease maintained on PhosLo. Plan: Hemodialysis tomorrow. Possible discharge today.
--- NOTE | 2023-04-08 14:29 | IR ---
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 Fluoroscopy was provided to the referring clinician.
[2023-04-08 15:04] VITALS: BP 110/75; PULSE 99; RESP 15; TEMP 98
== END 2023-04-08 15:05 ==
LOC: EC 08:27 → 6NMEDSUR 09:40
PROVIDERS: ADMIT Hospitalist; ATTEND Hospitalist
DX: T82.868A Thrombosis due to vascular prosthetic devices, implants and grafts, initial encounter (principal); Y83.2 Surgical operation with anastomosis, bypass or graft as the cause of abnormal reaction of the patient, or of later complication, without mention of misadventure at the time of the procedure; I13.2 Hypertensive heart and chronic kidney disease with heart failure and with stage 5 chronic kidney disease, or end stage renal disease; I50.32 Chronic diastolic (congestive) heart failure; N18.6 End stage renal disease; N25.0 Renal osteodystrophy; I25.10 Atherosclerotic heart disease of native coronary artery without angina pectoris; J44.9 Chronic obstructive pulmonary disease, unspecified; E78.5 Hyperlipidemia, unspecified; E11.42 Type 2 diabetes mellitus with diabetic polyneuropathy; E89.0 Postprocedural hypothyroidism; F32.A Depression, unspecified; F41.9 Anxiety disorder, unspecified; E11.22 Type 2 diabetes mellitus with diabetic chronic kidney disease; G47.33 Obstructive sleep apnea (adult) (pediatric); H54.8 Legal blindness, as defined in USA; M19.90 Unspecified osteoarthritis, unspecified site; I25.2 Old myocardial infarction; I69.354 Hemiplegia and hemiparesis following cerebral infarction affecting left non-dominant side; Z85.850 Personal history of malignant neoplasm of thyroid; Z86.16 Personal history of COVID-19; Z86.711 Personal history of pulmonary embolism; Z87.440 Personal history of urinary (tract) infections; Z95.5 Presence of coronary angioplasty implant and graft; Z99.2 Dependence on renal dialysis; Z99.3 Dependence on wheelchair; Z79.890 Hormone replacement therapy; Z79.899 Other long term (current) drug therapy; Z79.82 Long term (current) use of aspirin; Z79.02 Long term (current) use of antithrombotics/antiplatelets; Z79.4 Long term (current) use of insulin
CPT/HCPCS: 96372 ×3; 99285; 36415; 94640 ×3; 36905; 80048 ×4; 84100; 85025 ×2; 85610; 85730; G0378 ×4; C1894; C1769 ×4; C1725; C2623; C1757; J2250; J1644 ×4; J3010; J2997; Q9967; J2305; 90935

== ENCOUNTER 2023-04-14 11:52 | Inpatient (IN) | payer MEDICARE, OTHER ==
--- NOTE | 2023-04-14 12:20 | ED ---
General Adult HPI - General Chief complaint: Weakness Stated complaint: Altered Mental Status Time Seen by Provider: 04/14/23 12:05 Source: EMS, RN notes reviewed, old records reviewed Mode of arrival: EMS Limitations: altered mental status - History of Present Illness Initial comments: 67 yo female presenting with altered mental status and lethargy. [facility] from the [facility] where over the past 24 hours she's had decreased level consciousness and was difficult to arouse. Patient is alert to name at the time my evaluation. Her symptoms have been progressive over at least the past 24 hours. She is history of end-stage renal disease and receives hemodialysis yesterday. There is no reported fever. Patient apparently does make urine and has history of frequent UTI. - Related Data Home Medications Medication Instructions Recorded Confirmed Levothyroxine Sodium [Synthroid] 175 mcg PO DAILY@0800 11/21/17 04/05/23 Montelukast [Singulair] 10 mg PO HS@2100 11/21/17 04/05/23 Atorvastatin [Lipitor] 40 mg PO HS@209909/08/20 04/05/23 Cholecalciferol [Vitamin D3 (25 50 mcg PO DAILY@169912/09/20 04/05/23 Mcg = 1000 Iu)] Acetaminophen Tab [Tylenol] 650 mg PO Q4H PRN 11/04/21 04/05/23 Aspirin EC [Ecotrin Low Dose] 81 mg PO DAILY@169911/04/21 04/05/23 Budesonide [Pulmicort] 0.5 mg INHALATION RT-BID@0700,169911/04/21 04/05/23 Clopidogrel [Plavix] 75 mg PO DAILY@0811/04/21 04/05/23 DULoxetine HCL [Cymbalta] 60 mg PO DAILY@0800 02/08/22 04/05/23 Insulin Degludec [Tresiba] 20 units SQ HS@21302/08/22 04/05/23 Isosorbide Mononitrate ER [Imdur] 30 mg PO BID@0800,1700 02/08/22 04/05/23 Ondansetron [Zofran] 4 mg PO BID PRN 02/08/22 04/05/23 Calcium Acetate [PhosLo] 1,334 mg PO TUTHSA@0600 04/12/22 04/05/23 Furosemide [Lasix] 60 mg PO BID@0800,1700 08/06/22 04/05/23 carvediloL [Coreg] 12.5 mg PO SUMOWEFR@0800 08/06/22 04/05/23 Ipratropium-Albuterol Nebulize 3 ml INHALATION RT-Q6H PRN 09/28/22 04/05/23 [Duoneb 0.5 mg-3 mg/3 ml Soln] Loperamide [Imodium] 2 mg PO QID PRN 09/28/22 04/05/23 allopurinoL [Zyloprim] 100 mg PO DAILY@0800 09/28/22 04/05/23 Calcium Acetate [PhosLo] 1,334 mg PO AC-BID@1200,1700 10/30/22 04/05/23 Calcium Acetate [PhosLo] 667 mg PO HS 10/30/22 04/05/23 Famotidine [Pepcid] 10 mg PO DAILY@0800 10/30/22 04/05/23 Hydrocortisone Cream 1 applic TOPICAL BID PRN 10/30/22 04/05/23 [Hydrocortisone 1% Cream] Interdry 10 1 applic TOPICAL BID@0800,2100 10/30/22 04/05/23 Midodrine HCl 5 mg PO TUTHSA 10/30/22 04/05/23 Renal Multivitamin Formula Tab 1 tab PO DAILY@1700 10/30/22 04/05/23 bisacodyL [Dulcolax] 10 mg RECTAL DAILY PRN 10/30/22 04/05/23 carvediloL [Coreg] 12.5 mg PO DAILY@17010/30/22 04/05/23 guaiFENesin SYRUP 100MG/5ML 200 mg PO Q4H PRN 10/30/22 04/05/23 [Robitussin] Insulin Aspart [NovoLOG] See Protocol SQ ACHS 12/31/22 04/05/23 Sennosides-Docusate Sodium 1 tab PO BID@0800,1700 12/31/22 04/05/23 [Senokot-S] Calcium Acetate [PhosLo] 1,337 mg PO SUMOWEFR@0800 04/05/23 04/05/23 Liquacel 30 ml PO BID@0800,1700 04/05/23 04/05/23 Vitamin E Cream 1 applic TOPICAL BID@0800,1700 04/05/23 04/05/23 Previous Rx's Medication Instructions Recorded Gabapentin [Neurontin] 100 mg PO DAILY@0800 #2 cap 04/08/23 Gabapentin [Neurontin] 200 mg PO HS #3 cap 04/08/23 HYDROcodone/APAP 5-325MG [[place] 1 tab PO Q8H PRN #4 tab 04/08/23 5-325] Allergies Allergy/AdvReac Type Severity Reaction Status Date / Time No Known Allergies Allergy Verified 04/05/23 10:55 Review of Systems ROS Statement: Those systems with pertinent positive or pertinent negative responses have been documented in the HPI. ROS Other: All systems not noted in ROS Statement are negative. 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 in [place]., pt has RT chest port. , left forearm fistula., friend Shirley states patient can stand to transfer but uses wheelchair mostly, November Admission 2022 for [facility]-malfunctioning dialysis catheter. Last Myocardial Infarction Date:: 2009 History of Any Multi-Drug Resistant Organisms: VRE Date of last positivie culture/infection: 01/17/22 MDRO Source:: Urine Past Surgical History: Adenoidectomy, Back Surgery, Cholecystectomy, Heart Catheterization With Stent, Tonsillectomy Additional Past Surgical History / Comment(s): PCI with stent 2009 & 2019, low back surgery, total R shoulder and total R knee arthroplasties, bilateral hand trigger finger surgeries, EGD, colonoscopy, L eye laser eye surgery for bleed, thyroidectomy(2 surgeries total to remove all of thyroid).lt tib fib fx-plate and screws. lt arm Dialysis fistula,heart stents x2,heart cath x2 Past Anesthesia/Blood Transfusion Reactions: No Reported Reaction, Motion Sickness Additional Past Anesthesia/Blood Transfusion Reaction / Comment(s): no hx blood transfusion Date of Last Stent Placement:: 2009,2018 Past Psychological History: Anxiety, Depression Smoking Status: Never smoker Past Alcohol Use History: None Reported Past Drug Use History: None Reported - Past Family History Mother Family Medical History: Asthma, CVA/TIA, Seizure Disorder Additional Family Medical History / Comment(s): epilepsy,pt states "mom had 21 strokes) Father Family Medical History: COPD, Diabetes Mellitus Additional Family Medical History / Comment(s): many heart problems General Exam Limitations: altered mental status General appearance: in no apparent distress, lethargic Head exam: Present: atraumatic, normocephalic Eye exam: Present: normal appearance, PERRL Respiratory exam: Present: normal lung sounds bilaterally. Absent: respiratory distress, wheezes Cardiovascular Exam: Present: regular rate, normal rhythm GI/Abdominal exam: Present: soft. Absent: distended, tenderness Extremities exam: Present: normal inspection Neurological exam: Absent: motor sensory deficit Skin exam: Present: warm, dry, intact Course Vital Signs 04/14/23 11:57 Temperature 97.2 F L Pulse Rate 59 L Respiratory 18 Rate Blood Pressure 156/69 O2 Sat by Pulse 95 Oximetry Medical Decision Making - Medical Decision Making Was pt. sent in by a medical professional or institution (, PA, TIP BANDING MACHINE OPERATOR, urgent care, hospital, or [facility]...) When possible be specific @ -No Did you speak to anyone other than the patient for history (EMS, parent, family, police, friend...)? What history was obtained from this source @ -No Did you review nursing and triage notes (agree or disagree)? Why? @ -I reviewed and agree with nursing and triage notes Were old charts reviewed (outside hosp., previous admission, EMS record, old EKG, old radiological studies, urgent care reports/EKG's, [facility] records)? Report findings @ -No old charts were reviewed Differential Diagnosis (chest pain, altered mental status, abdominal pain women, abdominal pain men, vaginal bleeding, weakness, fever, dyspnea, syncope, headache, dizziness, GI bleed, back pain, seizure, CVA, palpatations, mental health, musculoskeletal)? @ Differential Altered Mental Status: Hypoglycemia, DKA, hypercapnia, ETOH, overdose, CO poisoning, trauma, myxedema coma, HTN encephalopathy, infection, encephalitis, psychosis, intercranial hemorrhage, hepatic encephalopathy, meningitis, CVA, this is not meant to be an all-inclusive list EKG interpreted by me (3pts min.). @ -Sinus rhythm with first-degree AV block, left bundle branch block rate of 61, TX interval 2:30, QRS duration 134, QTC [address] segment elevation, similar QRS compared to prior EKG. X-rays interpreted by me (1pt min.). @No acute cardiopulmonary findings, no focal pneumonia, permacath right chest wall CT interpreted by me (1pt min.). @ -No intracranial hemorrhage or mass effect U/S interpreted by me (1pt. min.). @ -None done What testing was considered but not performed or refused? (CT, X-rays, U/S, labs)? Why? @ -None What meds were considered but not given or refused? Why? @ -None Did you discuss the management of the patient with other professionals (professionals i.e. , PA, TIP BANDING MACHINE OPERATOR, lab, RT, psych nurse, social welfare research worker, spiritual counselor, teacher, humane officer, catalytic case operator)? Give summary @ -[EMH Was smoking cessation discussed for >3mins.? @ -No Was critical care preformed (if so, how long)? @ -No Were there social determinants of health that impacted care today? How? (Homelessness, low income, unemployed, alcoholism, drug addiction, transportation, low edu. Level, literacy, decrease access to med. care, retirement, rehab)? @ -No Was there de-escalation of care discussed even if they declined (Discuss DNR or withdrawal of care, Hospice)? DNR status @ -No What co-morbidities impacted this encounter? (DM, HTN, Smoking, COPD, CAD, Cancer, CVA, ARF, Chemo, Hep., AIDS, mental health diagnosis, sleep apnea, morbid obesity)? @ -End-stage renal disease Was patient admitted / discharged? Hospital course, mention meds given and route, prescriptions, significant lab abnormalities, going to OR and other pertinent info. @67 yo female with confusion over the past 24 hours. Workup does reveal UTI. Patient has had previous Proteus and Klebsiella UTI. She is covered with cefepime awaiting culture results. She has no leukocytosis. She has chronic stable lab abnormalities otherwise in the setting of end-stage renal disease. No focal pneumonia on chest x-ray. Head CT negative for acute intracranial pathology. Patient admitted to internal medicine with nephrology on consult. Undiagnosed new problem with uncertain prognosis? @ -No Drug Therapy requiring intensive monitoring for toxicity (Heparin, Nitro, Insulin, Cardizem)? @ -No Were any procedures done? @ -No Diagnosis/symptom? @ -[Altered mental status UTI, encephalopathy Acute, or Chronic, or Acute on Chronic? @Acute Uncomplicated (without systemic symptoms) or Complicated (systemic symptoms)? @ -default Side effects of treatment? @ -No Exacerbation, Progression, or Severe Exacerbation? @ -No Poses a threat to life or bodily function? How? (Chest pain, [place], [place], pneumonia, PE, COPD, DKA, ARF, appy, cholecystitis, CVA, Diverticulitis, Homicidal, Suicidal, threat to staff... and all critical care pts) @Yes, sepsis - Lab Data Result diagrams: 04/14/23 12:19 04/14/23 12:19 Lab Results 04/14/23 04/14/23 04/14/23 Range/Units 12:19 12:19 12:19 WBC 7.6 (3.8-10.6) k/uL RBC 3.97 (3.80-5.40) m/uL Hgb 12.9 (11.4-16.0) gm/dL Hct 39.8 (34.0-46.0) % MCV 100.4 H (80.0-100.0) fL MCH 32.4 (25.0-35.0) pg MCHC 32.3 (31.0-37.0) g/dL RDW 13.2 (11.5-15.5) % Plt Count 173 (150-450) k/uL MPV 8.1 Neutrophils % 64 % Lymphocytes % 28 % Monocytes % 6 % Eosinophils % 1 % Basophils % 0 % Neutrophils # 4.8 (1.3-7.7) k/uL Lymphocytes # 2.1 (1.0-4.8) k/uL Monocytes # 0.4 (0-1.0) k/uL Eosinophils # 0.1 (0-0.7) k/uL Basophils # 0.0 (0-0.2) k/uL PT 10.0 (10.0-12.5) sec INR 0.9 (<1.2) APTT 23.3 (22.0-30.0) sec VBG pH (7.31-7.41) VBG pCO2 (37-51) mmHg VBG HCO3 (24-28) mmol/L Sodium (137-145) mmol/L Potassium (3.5-5.1) mmol/L Chloride (98-107) mmol/L Carbon Dioxide (22-30) mmol/L Anion Gap mmol/L BUN (7-17) mg/dL Creatinine (0.52-1.04) mg/dL Est GFR (CKD-EPI)AfAm (>60 ml/min/1.73 sqM) Est GFR (CKD-EPI)NonAf (>60 ml/min/1.73 sqM) Glucose (74-99) mg/dL POC Glucose (mg/dL) (70-110) mg/dL POC Glu Certified Caregiver ID Plasma Lactic Acid [place] (0.7-2.0) mmol/L Calcium (8.4-10.2) mg/dL Magnesium (1.6-2.3) mg/dL Total Bilirubin (0.2-1.3) mg/dL AST (14-36) U/L ALT (4-34) U/L Alkaline Phosphatase (38-126) U/L NT-Pro-B Natriuret Pep pg/mL Total Protein (6.3-8.2) g/dL Albumin (3.5-5.0) g/dL Urine Color Yellow Urine Appearance Turbid H (Clear) Urine pH 6.0 (5.0-8.0) Ur Specific [place] 1.016 (1.001-1.035) Urine Protein 1+ H (Negative) Urine Glucose (UA) Negative (Negative) Urine Ketones Negative (Negative) Urine Blood Small H (Negative) Urine Nitrite Negative (Negative) Urine Bilirubin Negative (Negative) Urine Urobilinogen 2.0 (<2.0) mg/dL Ur Leukocyte Esterase Large H (Negative) Urine RBC 13 H (0-5) /hpf Urine WBC >182 H (0-5) /hpf Urine WBC Clumps Moderate H (None) /hpf Ur Squamous Epith Cells 5 H (0-4) /hpf Amorphous Sediment Occasional H (None) /hpf Urine Bacteria Rare H (None) /hpf Influenza Type A (PCR) (Not Detectd) Influenza Type B (PCR) (Not Detectd) RSV (PCR) (Not Detectd) SARS-CoV-2 (PCR) (Not Detectd) 04/14/23 04/14/23 04/14/23 Range/Units 12:19 12:19 12:19 WBC (3.8-10.6) k/uL RBC (3.80-5.40) m/uL Hgb (11.4-16.0) gm/dL Hct (34.0-46.0) % MCV (80.0-100.0) fL MCH (25.0-35.0) pg MCHC (31.0-37.0) g/dL RDW (11.5-15.5) % Plt Count (150-450) k/uL MPV Neutrophils % % Lymphocytes % % Monocytes % % Eosinophils % % Basophils % % Neutrophils # (1.3-7.7) k/uL Lymphocytes # (1.0-4.8) k/uL Monocytes # (0-1.0) k/uL Eosinophils # (0-0.7) k/uL Basophils # (0-0.2) k/uL PT (10.0-12.5) sec INR (<1.2) APTT (22.0-30.0) sec VBG pH 7.44 H (7.31-7.41) VBG pCO2 44 (37-51) mmHg VBG HCO3 30 H (24-28) mmol/L Sodium 135 L (137-145) mmol/L Potassium 4.8 (3.5-5.1) mmol/L Chloride 94 L (98-107) mmol/L Carbon Dioxide 27 (22-30) mmol/L Anion Gap 14 mmol/L BUN 49 H (7-17) mg/dL Creatinine 4.97 H (0.52-1.04) mg/dL Est GFR (CKD-EPI)AfAm 10 (>60 ml/min/1.73 sqM) Est GFR (CKD-EPI)NonAf 8 (>60 ml/min/1.73 sqM) Glucose 244 H (74-99) mg/dL POC Glucose (mg/dL) (70-110) mg/dL POC Glu Certified Caregiver ID Plasma Lactic Acid [place] 1.8 (0.7-2.0) mmol/L Calcium 9.9 (8.4-10.2) mg/dL Magnesium 2.6 H (1.6-2.3) mg/dL Total Bilirubin 0.8 (0.2-1.3) mg/dL AST 48 H (14-36) U/L ALT 20 (4-34) U/L Alkaline Phosphatase 80 (38-126) U/L NT-Pro-B Natriuret Pep 4080 pg/mL Total Protein 8.1 (6.3-8.2) g/dL Albumin 4.0 (3.5-5.0) g/dL Urine Color Urine Appearance (Clear) Urine pH (5.0-8.0) Ur Specific [place] (1.001-1.035) Urine Protein (Negative) Urine Glucose (UA) (Negative) Urine Ketones (Negative) Urine Blood (Negative) Urine Nitrite (Negative) Urine Bilirubin (Negative) Urine Urobilinogen (<2.0) mg/dL Ur Leukocyte Esterase (Negative) Urine RBC (0-5) /hpf Urine WBC (0-5) /hpf Urine WBC Clumps (None) /hpf Ur Squamous Epith Cells (0-4) /hpf Amorphous Sediment (None) /hpf Urine Bacteria (None) /hpf Influenza Type A (PCR) (Not Detectd) Influenza Type B (PCR) (Not Detectd) RSV (PCR) (Not Detectd) SARS-CoV-2 (PCR) (Not Detectd) 04/14/23 04/14/23 Range/Units 12:19 12:22 WBC (3.8-10.6) k/uL RBC (3.80-5.40) m/uL Hgb (11.4-16.0) gm/dL Hct (34.0-46.0) % MCV (80.0-100.0) fL MCH (25.0-35.0) pg MCHC (31.0-37.0) g/dL RDW (11.5-15.5) % Plt Count (150-450) k/uL MPV Neutrophils % % Lymphocytes % % Monocytes % % Eosinophils % % Basophils % % Neutrophils # (1.3-7.7) k/uL Lymphocytes # (1.0-4.8) k/uL Monocytes # (0-1.0) k/uL Eosinophils # (0-0.7) k/uL Basophils # (0-0.2) k/uL PT (10.0-12.5) sec INR (<1.2) APTT (22.0-30.0) sec VBG pH (7.31-7.41) VBG pCO2 (37-51) mmHg VBG HCO3 (24-28) mmol/L Sodium (137-145) mmol/L Potassium (3.5-5.1) mmol/L Chloride (98-107) mmol/L Carbon Dioxide (22-30) mmol/L Anion Gap mmol/L BUN (7-17) mg/dL Creatinine (0.52-1.04) mg/dL Est GFR (CKD-EPI)AfAm (>60 ml/min/1.73 sqM) Est GFR (CKD-EPI)NonAf (>60 ml/min/1.73 sqM) Glucose (74-99) mg/dL POC Glucose (mg/dL) 262 H (70-110) mg/dL POC Glu Certified Caregiver ID Moiz Torres Plasma Lactic Acid [place] (0.7-2.0) mmol/L Calcium (8.4-10.2) mg/dL Magnesium (1.6-2.3) mg/dL Total Bilirubin (0.2-1.3) mg/dL AST (14-36) U/L ALT (4-34) U/L Alkaline Phosphatase (38-126) U/L NT-Pro-B Natriuret Pep pg/mL Total Protein (6.3-8.2) g/dL Albumin (3.5-5.0) g/dL Urine Color Urine Appearance (Clear) Urine pH (5.0-8.0) Ur Specific [place] (1.001-1.035) Urine Protein (Negative) Urine Glucose (UA) (Negative) Urine Ketones (Negative) Urine Blood (Negative) Urine Nitrite (Negative) Urine Bilirubin (Negative) Urine Urobilinogen (<2.0) mg/dL Ur Leukocyte Esterase (Negative) Urine RBC (0-5) /hpf Urine WBC (0-5) /hpf Urine WBC Clumps (None) /hpf Ur Squamous Epith Cells (0-4) /hpf Amorphous Sediment (None) /hpf Urine Bacteria (None) /hpf Influenza Type A (PCR) Not Detected (Not Detectd) Influenza Type B (PCR) Not Detected (Not Detectd) RSV (PCR) Not Detected (Not Detectd) SARS-CoV-2 (PCR) Not Detected (Not Detectd) Disposition Clinical Impression: AMS (altered mental status), UTI (urinary tract infection) Disposition: ADMITTED IP TO THIS [facility] Condition: Stable Is patient prescribed a controlled substance at d/c from ED?: No Referrals: Cristiano East MD [Primary Care Provider] - 1-2 days Time of Disposition: 13:50
[2023-04-14 12:24] LABS: Glucose,Whole Blood 262 mg/dL (70-110)
[2023-04-14 12:46] LABS: Basophils % (A) 0 %; Eosinophils # (A) 0.1 k/uL (0-0.7); Eosinophils % (A) 1 %; HCT 39.8 % (34.0-46.0); HGB 12.9 gm/dL (11.4-16.0); Lymphocytes # (A) 2.1 k/uL (1.0-4.8); Lymphocytes % (A) 28 %; MCH 32.4 pg (25.0-35.0); MCHC 32.3 g/dL (31.0-37.0); MCV 100.4 fL (80.0-100.0); Mean Platelet Volume 8.1; Monocytes # (A) 0.4 k/uL (0-1.0); Monocytes % (A) 6 %; Neutrophils # (A) 4.8 k/uL (1.3-7.7); Neutrophils % (A) 64 %; Platelet Count 173 k/uL (150-450); RBC 3.97 m/uL (3.80-5.40); RDW 13.2 % (11.5-15.5); WBC 7.6 k/uL (3.8-10.6)
[2023-04-14 13:09] LABS: ALT 20 U/L (4-34); AST 48 U/L (14-36); African American GFR (CKD) 10 (>60 ml/min/1.73 sqM); Alkaline Phosphatase 80 U/L (38-126); Anion Gap 14 mmol/L; Blood Urea Nitrogen 49 mg/dL (7-17); Calcium 9.9 mg/dL (8.4-10.2); Carbon Dioxide 27 mmol/L (22-30); Chloride 94 mmol/L (98-107); Glucose 244 mg/dL (74-99); Magnesium 2.6 mg/dL (1.6-2.3); Non-African American GFR(CKD) 8 (>60 ml/min/1.73 sqM); Potassium 4.8 mmol/L (3.5-5.1); Sodium 135 mmol/L (137-145); Total Bilirubin 0.8 mg/dL (0.2-1.3); Total Protein 8.1 g/dL (6.3-8.2)
[2023-04-14 13:14] LABS: VBG PH 7.44 (7.31-7.41)
[2023-04-14 13:16] LABS: NT-Pro-B-Type Natriuretic Pept 4080 pg/mL
--- NOTE | 2023-04-14 13:18 | XR ---
EXAMINATION TYPE: XR chest 1V portable DATE OF EXAM: 04/14/2023 1:09 PM CLINICAL INDICATION:Female, 67 years old with history of AMS; [facility] COMPARISON: Chest radiographs from 11/20/2022 TECHNIQUE: XR chest 1V portable Frontal view of the chest. FINDINGS: Lungs/Pleura: There is no evidence of pleural effusion, focal consolidation, or pneumothorax. Pulmonary vascularity: Unremarkable. Heart/mediastinum: Cardiomediastinal silhouette is enlarged and stable. Musculoskeletal: No acute osseous pathology. Other findings: None Lines/Tubes: Right internal jugular central venous catheter with distal tip at the cavoatrial junction. IMPRESSION: 1. No acute cardiopulmonary disease/process. 2. Right central venous catheter tip in appropriate position. No evidence for pneumothorax. 3. Cardiomegaly.
--- NOTE | 2023-04-14 13:22 | CT ---
EXAMINATION TYPE: CT brain wo con CT DLP: 1067.4 mGycm, Automated exposure control for dose reduction was used. DATE OF EXAM: 04/14/2023 1:07 PM COMPARISON: 11/22/2022. CLINICAL INDICATION:Female, 67 years old with history of AMS, Pt sent by [facility] for decreased respon siveness. TECHNIQUE: Brain: Axial CT images of the brain were obtained with coronal and sagittal reformats created and rev iewed. Contrast used: None. Oral contrast used: None. FINDINGS: Brain: Extra-axial spaces: No abnormal extra-axial fluid collections. Ventricular system: Dilatation in proportion to cerebral atrophy. Cerebral parenchyma: Cerebral atrophy. No acute intraparenchymal hemorrhage or mass effect. The ojeda -white junction is well differentiated. Scattered hypoattenuating areas are seen within the white mat ter. Cerebellum: Unremarkable. Mass effect: No evidence of midline shift. Intracranial vasculature: unremarkable Soft tissues: Normal. Calvarium/osseous structures: No depressed skull fracture. Paranasal sinuses and mastoid air cells: Mild scattered paranasal sinus disease. Visualized orbits: Bilateral aphakia IMPRESSION: 1. No acute intracranial process. 2. Nonspecific white matter changes, likely secondary to chronic small vessel ischemic disease.
[2023-04-14 13:23] LABS: INR 0.9 (<1.2); Partial Thromboplastin Time 23.3 sec (22.0-30.0)
[2023-04-14 13:39] LABS: Amorphous Sediment,Urine Occasional /hpf; Appearance,Urine Turbid (Clear); Bacteria,Urine Rare /hpf; Bilirubin,Urine Negative (Negative); Blood,Urine Small (Negative); Color,Urine Yellow; Glucose,Urine (UA) Negative (Negative); Ketones,Urine Negative (Negative); Leukocyte Esterase,Urine Large (Negative); Nitrite,Urine Negative (Negative); Protein,Urine 1+ (Negative); RBC,Urine 13 /hpf (0-5); Specific Gravity,Urine 1.016 (1.001-1.035); Squamous Epithelial Cell,Urine 5 /hpf (0-4); WBC,Urine >182 /hpf (0-5)
[2023-04-14] MEDS ORDERED: CEFEPIME 2 GM in SODIUM CHLORIDE 0.9% 100 ML IVPB SCH (14:00)
[2023-04-14] MEDS: SODIUM CHLORIDE 0.9% 1,000 ML IV SCH (15:15)
[2023-04-14] MEDS: CEFEPIME 1 GM in SODIUM CHLORIDE 0.9% 50 ML IVPB SCH (16:25)
[2023-04-14 21:19] LABS: Glucose,Whole Blood 188 mg/dL (70-110)
[2023-04-15 06:16] LABS: Glucose,Whole Blood 144 mg/dL (70-110)
[2023-04-15] MEDS: NALOXONE 0.4 MG/ML 1 ML VIAL IV PRN ×2 (10:39→11:06)
[2023-04-15 11:30] LABS: Glucose,Whole Blood 138 mg/dL (70-110)
--- NOTE | 2023-04-15 12:07 | P.NPCON ---
History of Present Illness - Reason for Consult end stage renal disease - History of Present Illness Patient is a 67-year-old female with end-stage renal disease maintained on Saturday schedule. She is admitted to the hospital from [facility] with mental status changes. Patient was apparently heart to arouse. There is no history of fever chills nausea vomiting abdominal pain or diarrhea. Patient has been compliant with her dialysis treatments. Status post thrombectomy angioplasty of left arm AV graft on 04/05/2023. Patient also has an IJ permacath No leukocytosis noted. 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 , left forearm fistula., friend Shirley states patient can stand to transfer but uses wheelchair mostly, November Admission 2022 for [facility]-malfunctioning dialysis catheter. Last Myocardial Infarction Date:: 2009 History of Any Multi-Drug Resistant Organisms: VRE Date of last positivie culture/infection: 01/17/22 MDRO Source:: Urine Past Surgical History: Adenoidectomy, Back Surgery, Cholecystectomy, Heart Catheterization With Stent, Tonsillectomy Additional Past Surgical History / Comment(s): PCI with stent 2009 & 2018, low back surgery, total R shoulder and total R knee arthroplasties, bilateral hand trigger finger surgeries, EGD, colonoscopy, L eye laser eye surgery for bleed, thyroidectomy(2 surgeries total to remove all of thyroid).lt tib fib fx-plate and screws. lt arm Dialysis fistula,heart stents x2,heart cath x2 Past Anesthesia/Blood Transfusion Reactions: No Reported Reaction, Motion Sickness Additional Past Anesthesia/Blood Transfusion Reaction / Comment(s): no hx blood transfusion Date of Last Stent Placement:: 2009,2018 Past Psychological History: Anxiety, Depression Additional Psychological History / Comment(s): . Smoking Status: Never smoker Past Alcohol Use History: None Reported Past Drug Use History: None Reported - Past Family History Mother Family Medical History: Asthma, CVA/TIA, Seizure Disorder Additional Family Medical History / Comment(s): epilepsy,pt states "mom had 21 strokes) Father Family Medical History: COPD, Diabetes Mellitus Additional Family Medical History / Comment(s): many heart problems Medications and Allergies Home Medications Medication Instructions Recorded Confirmed Type Levothyroxine Sodium [Synthroid] 175 mcg PO DAILY@0800 11/21/17 04/14/23 History Montelukast [Singulair] 10 mg PO HS 11/21/17 04/14/23 History Atorvastatin [Lipitor] 40 mg PO HS@2100 09/08/20 04/14/23 History Cholecalciferol [Vitamin D3 (25 50 mcg PO DAILY@1700 12/09/20 04/14/23 History Mcg = 1000 Iu)] Acetaminophen Tab [Tylenol] 650 mg PO Q4H PRN 11/04/21 04/14/23 History Aspirin EC [Ecotrin Low Dose] 81 mg PO DAILY@1700 11/04/21 04/14/23 History Clopidogrel [Plavix] 75 mg PO DAILY@0800 11/04/21 04/14/23 History DULoxetine HCL [Cymbalta] 60 mg PO DAILY@0800 02/08/22 04/14/23 History Insulin Degludec [Tresiba] 20 units SQ HS@2130 02/08/22 04/14/23 History Isosorbide Mononitrate ER [Imdur] 30 mg PO BID@0800,1700 02/08/22 04/14/23 History Ondansetron [Zofran] 4 mg PO BID PRN 02/08/22 04/14/23 History Calcium Acetate [PhosLo] 1,334 mg PO AC-TID 04/12/22 04/14/23 History Furosemide [Lasix] 60 mg PO BID@0800,1700 08/06/22 04/14/23 History carvediloL [Coreg] 12.5 mg PO SUMOWEFR@0800 08/06/22 04/14/23 History Ipratropium-Albuterol Nebulize 3 ml INHALATION RT-Q6H PRN 09/28/22 04/14/23 History [Duoneb 0.5 mg-3 mg/3 ml Soln] Loperamide [Imodium] 2 mg PO QID PRN 09/28/22 04/14/23 History allopurinoL [Zyloprim] 100 mg PO DAILY@0800 09/28/22 04/14/23 History Calcium Acetate [PhosLo] 667 mg PO HS 10/30/22 04/14/23 History Famotidine [Pepcid] 10 mg PO DAILY@0800 10/30/22 04/14/23 History Hydrocortisone Cream 1 applic TOPICAL BID PRN 10/30/22 04/14/23 History [Hydrocortisone 1% Cream] Interdry 10 1 applic TOPICAL BID@0800,2100 10/30/22 04/14/23 History Renal Multivitamin Formula Tab 1 tab PO DAILY@1700 10/30/22 04/14/23 History bisacodyL [Dulcolax] 10 mg RECTAL DAILY PRN 10/30/22 04/14/23 History carvediloL [Coreg] 12.5 mg PO DAILY@1700 10/30/22 04/14/23 History guaiFENesin SYRUP 100MG/5ML 200 mg PO Q4H PRN 10/30/22 04/14/23 History [Robitussin] Insulin Aspart [NovoLOG] See Protocol SQ ACHS 12/31/22 04/14/23 History Sennosides-Docusate Sodium 1 tab PO BID@0800,1700 12/31/22 04/14/23 History [Senokot-S] Liquacel 30 ml PO BID@0800,1700 04/05/23 04/14/23 History Vitamin E Cream 1 applic TOPICAL BID@0800,1700 04/05/23 04/14/23 History Gabapentin [Neurontin] 100 mg PO DAILY@0800 #2 cap 04/08/23 04/14/23 Rx Gabapentin [Neurontin] 200 mg PO HS #3 cap 04/08/23 04/14/23 Rx HYDROcodone/APAP 5-325MG [[place] 1 tab PO Q8H PRN #4 tab 04/08/23 04/14/23 Rx 5-325] Baclofen 5 mg PO TID@0800,1200,1700 04/14/23 04/14/23 History methylPREDNISolone [Medrol Dose See Taper PO DIRECTED 04/14/23 04/14/23 History Pack] Allergies Allergy/AdvReac Type Severity Reaction Status Date / Time No Known Allergies Allergy Verified 04/05/23 10:55 Physical Exam Vitals: Vital Signs Temp Pulse Pulse Resp BP BP Pulse Ox 04/15/23 11:06 12 04/15/23 10:39 10 L 04/15/23 07:34 98.3 F 64 14 176/70 97 04/15/23 01:02 96.8 F L 57 L 12 120/63 98 04/14/23 20:15 97.6 F 55 L 16 129/59 97 04/14/23 17:30 59 L 18 161/59 95 04/14/23 17:00 62 18 170/43 95 04/14/23 16:30 62 18 170/61 96 04/14/23 16:20 64 18 175/82 96 04/14/23 15:00 68 14 158/84 95 Intake and Output 04/14/23 04/15/23 04/15/23 22:59 06:59 14:59 Output Total 300 Balance -300 Output: Urine 300 Other: Voiding Method Indwelling Catheter Indwelling Catheter Weight 110.586 kg Patient is sleeping but arousable. She does not answer questions appropriately. Examination of the heart S1 and S2 Examination of the lungs bilateral breath sounds are heard Abdomen is soft nontender Examination of the lower extremities shows no evidence of edema. Left arm is currently wrapped. [employer]ENEW[employer] REPRESENTATIVE exam shows patient is confused. She is moving all 4 extremities. Results - Lab Results Most recent lab results Calcium 9.9 mg/dL (8.4-10.2) 04/14/23 12:19 Magnesium 2.6 mg/dL (1.6-2.3) H 04/14/23 12:19 04/14/23 12:19 10/22/23 12:19 Assessment and Plan Assessment: 1. End-stage renal disease on hemodialysis on a Saturday schedule. Patient has a right IJ permacath. She recently had thrombectomy of the left arm AV graft on 04/05/[address] Leung. 2. Mental status changes, etiology unclear. CT of the head is unremarkable. 3. CK D mineral bone disorder Plan: Check blood cultures Unwrap left arm Hemodialysis in a.m. Consider Narcan Keep nothing by mouth for now. Thank you for the consultation. We will continue to follow the patient with you during her hospitalization.
[2023-04-15] MEDS ORDERED: bisacodyL 10 MG SUPP RECTAL PRN (14:58)
[2023-04-15] MEDS ORDERED: ONDANSETRON 4 MG TAB PO PRN (14:58)
[2023-04-15] MEDS ORDERED: guaiFENesin SYRUP 100MG/5ML 200 MG/10 ML CUP PO PRN (14:58)
[2023-04-15] MEDS ORDERED: methylPREDNISolone 4 MG TAB TAPER PO SCH (15:00)
[2023-04-15] MEDS: IPRATROPIUM-ALBUTEROL 3 ML NEB INHALATION SCH ×2 (16:47→21:12)
[2023-04-15 16:58] LABS: Glucose,Whole Blood 155 mg/dL (70-110)
[2023-04-15] MEDS ORDERED: NON FORMULARY DRUG (Liquacel 30 ML) PO SCH (17:00)
[2023-04-15] MEDS: CEFEPIME 1 GM in SODIUM CHLORIDE 0.9% 50 ML IVPB SCH (17:08)
[2023-04-15] MEDS: ASPIRIN 81 MG PO SCH (18:11)
[2023-04-15] MEDS: FOLIC ACID-VIT B COMPLEX-VIT C 1 CAP PO SCH (18:12)
[2023-04-15] MEDS: BACLOFEN 10 MG TAB PO SCH (18:12)
[2023-04-15] MEDS: FUROSEMIDE 20 MG TAB PO SCH (18:12)
[2023-04-15] MEDS: carvediloL 12.5 MG TAB PO SCH (18:12)
[2023-04-15] MEDS: CHOLECALCIFEROL 25 MCG (1000 IU) TABLET PO SCH (18:12)
[2023-04-15] MEDS: ISOSORBIDE MONONITRATE ER 30 MG TAB.ER.24H PO SCH (18:12)
[2023-04-15] MEDS: SENNOSIDES-DOCUSATE SODIUM 1 EACH TAB PO SCH (18:13)
[2023-04-15] MEDS: VITAMIN E TOPICAL SCH (18:13)
[2023-04-15] MEDS: SODIUM CHLORIDE 0.9% 1,000 ML IV SCH (18:13)
[2023-04-15] MEDS: CALCIUM ACETATE 667 MG TAB PO SCH ×2 (18:52→20:46)
[2023-04-15 20:33] LABS: Glucose,Whole Blood 135 mg/dL (70-110)
[2023-04-15] MEDS: MONTELUKAST 10 MG TAB PO SCH (20:46)
[2023-04-15] MEDS: ATORVASTATIN 40 MG TAB PO SCH (20:46)
[2023-04-15] MEDS: INSULIN DETEMIR (LEVEMIR) 100 UNIT/ML SYR SQ SCH (20:47)
--- NOTE | 2023-04-15 21:32 | HP ---
HISTORY AND PHYSICAL CHIEF COMPLAINT: Change in mental status. HISTORY OF PRESENT ILLNESS: This is a 67-year-old woman with a past medical history of multiple medical problems with including renal failure, on hemodialysis in the [facility], was living in [facility]. The patient was taken to [facility] with complaints of change in mental status, metabolic encephalopathy secondary to UTI was suspected. The patient was started on broad spectrum IV antibiotics. The patient was closely monitored. The patient continues to be confused. Past medical history reviewed. REVIEW OF SYSTEMS: Could not be taken. PAST MEDICAL HISTORY: Reviewed, which include chronic kidney disease, asthma, CAD, COPD, CHF, rest of the history and rest of the chart is also reviewed. HOME MEDICATIONS: Reviewed include Coreg, dose and rest of medications reviewed. ALLERGIES: None. FAMILY HISTORY, SOCIAL HISTORY, REVIEW OF SYSTEMS: Could not be taken due to change in mental status. PHYSICAL EXAMINATION: VITAL SIGNS: Pulse is 61, blood pressure 182/64, respirations 17. HEENT: Conjunctivae normal. NECK: No jugular venous distention. CARDIOVASCULAR: S1, S2 muffled. RESPIRATIONS: Diminished at the bases, few scattered rhonchi and crackles. ABDOMEN: Soft, nontender. LEGS: No edema, no swelling. NERVOUS SYSTEM: No focal deficit. SKIN: No ulcer, rash, or bleeding. JOINTS: No active deforming arthropathy. LABORATORY DATA: Reviewed. CAT scan reviewed personally which showed no acute process. Chest x-ray reviewed. ASSESSMENT: 1. Change in mental status, possible UTI with sepsis. 2. Chronic kidney disease, on hemodialysis. 3. Asthma. 4. CHF. 5. Chronic obstructive pulmonary disease. 6. CVA, TIA. 7. Diabetes mellitus, type 2. 8. Hypertension. 9. Hyperlipidemia. 10.Multiple complex medical issues. 11.History of pulmonary embolism. RECOMMENDATION: This 67-year-old woman presented with multiple complex medical issues, we will monitor the patient closely, initiate broad-spectrum IV antibiotics. The patient is started on cefepime. We will consult Infectious and Nephrology. Resume the home medications once they are confirmed, otherwise avoid narcotic medications, pain medications. DVT prophylaxis. Prognosis guarded because of multiple complex medical issues. Further recommendations to follow. See orders for details. We will obtain the cultures as well. MMODL / IJN: [id number] /
--- NOTE | 2023-04-15 22:32 | P.CONS ---
History of Present Illness - Reason for Consult Consult date: 04/15/23 - History of Present Illness Patient is a 67-year-old female with a past medical history significant for end-stage renal disease maintained on dialysis Saturday through the [facility] and recently did have thrombectomy angioplasty only of the left arm AV graft the patient was sent to the ER for evaluation of mental status changes and decreased level of responsiveness, patient on presentation to the hospital was afebrile and no fever has been recorded subsequently patient was not tachycardic hypotensive or hypoxic patient did have a normal white count BUN/creatinine has been elevated liver exams are normal urine has been positive influenza RSV and COVID testing was negative patient did have a chest x-ray no acute cardiopulmonary disease blood cultures obtained which are currently pending urine culture growing gram-negative bacilli patient is being treated with the cefepime infectious disease was consulted for possible UTI most information has been obtained from review the chart as the patient is currently lethargic did not provide any history patient did have a Roper catheter that is draining clear urine and evidence of any hematuria Past Medical History Past Medical History: Asthma, Coronary Artery Disease (CAD), Cancer, Heart Failure, COPD, CVA/TIA, Diabetes Mellitus, GI Bleed, Hyperlipidemia, Hypertension, Myocardial Infarction ([place]), Osteoarthritis (OA), Pulmonary Embolus (PE), Renal Disease, Rheumatoid Arthritis (RA), Sleep Apnea/CPAP/BIPAP, Syncope, Thyroid Disorder Additional Past Medical History / Comment(s): 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 , left forearm fistula., friend Shirley states patient can stand to transfer but uses wheelchair mostly, November Admission 2022 for [facility]-malfunctioning dialysis catheter. Last Myocardial Infarction Date:: 2009 History of Any Multi-Drug Resistant Organisms: VRE Year Discovered:: 01/17/22 MDRO Source:: Urine Past Surgical History: Adenoidectomy, Back Surgery, Cholecystectomy, Heart Catheterization With Stent, Tonsillectomy Additional Past Surgical History / Comment(s): PCI with stent 2009 & 2018, low back surgery, total R shoulder and total R knee arthroplasties, bilateral hand trigger finger surgeries, EGD, colonoscopy, L eye laser eye surgery for bleed, thyroidectomy(2 surgeries total to remove all of thyroid).lt tib fib fx-plate and screws. lt arm Dialysis fistula,heart stents x2,heart cath x2 Past Anesthesia/Blood Transfusion Reactions: No Reported Reaction, Motion Sickness Additional Past Anesthesia/Blood Transfusion Reaction / Comm: no hx blood transfusion Date of Last Stent Placement:: Past Psychological History: Anxiety, Depression Additional Psychological History / Comment(s): . Smoking Status: Never smoker Past Alcohol Use History: None Reported Past Drug Use History: None Reported - Past Family History Mother Family Medical History: Asthma, CVA/TIA, Seizure Disorder Additional Family Medical History / Comment(s): epilepsy,pt states "mom had 21 strokes) Father Family Medical History: COPD, Diabetes Mellitus Additional Family Medical History / Comment(s): many heart problems Medications and Allergies Home Medications Medication Instructions Recorded Confirmed Type Levothyroxine Sodium [Synthroid] 175 mcg PO DAILY@0800 11/21/17 04/14/23 History Montelukast [Singulair] 10 mg PO HS 11/21/17 04/14/23 History Atorvastatin [Lipitor] 40 mg PO HS@2100 09/08/20 04/14/23 History Cholecalciferol [Vitamin D3 (25 50 mcg PO DAILY@169912/09/20 04/14/23 History Mcg = 1000 Iu)] Acetaminophen Tab [Tylenol] 650 mg PO Q4H PRN 11/04/21 04/14/23 History Aspirin EC [Ecotrin Low Dose] 81 mg PO DAILY@169911/04/21 04/14/23 History Clopidogrel [Plavix] 75 mg PO DAILY@0800 11/04/21 04/14/23 History DULoxetine HCL [Cymbalta] 60 mg PO DAILY@0800 02/08/22 04/14/23 History Insulin Degludec [Tresiba] 20 units SQ HS@2130 02/08/22 04/14/23 History Isosorbide Mononitrate ER [Imdur] 30 mg PO BID@0800,1700 02/08/22 04/14/23 History Ondansetron [Zofran] 4 mg PO BID PRN 02/08/22 04/14/23 History Calcium Acetate [PhosLo] 1,334 mg PO AC-TID 04/12/22 04/14/23 History Furosemide [Lasix] 60 mg PO BID@0800,1700 08/06/22 04/14/23 History carvediloL [Coreg] 12.5 mg PO SUMOWEFR@0800 08/06/22 04/14/23 History Ipratropium-Albuterol Nebulize 3 ml INHALATION RT-Q6H PRN 09/28/22 04/14/23 History [Duoneb 0.5 mg-3 mg/3 ml Soln] Loperamide [Imodium] 2 mg PO QID PRN 09/28/22 04/14/23 History allopurinoL [Zyloprim] 100 mg PO DAILY@0800 09/28/22 04/14/23 History Calcium Acetate [PhosLo] 667 mg PO HS 10/30/22 04/14/23 History Famotidine [Pepcid] 10 mg PO DAILY@0800 10/30/22 04/14/23 History Hydrocortisone Cream 1 applic TOPICAL BID PRN 10/30/22 04/14/23 History [Hydrocortisone 1% Cream] Interdry 10 1 applic TOPICAL BID@0800,2100 10/30/22 04/14/23 History Renal Multivitamin Formula Tab 1 tab PO DAILY@169910/30/22 04/14/23 History bisacodyL [Dulcolax] 10 mg RECTAL DAILY PRN 10/30/22 04/14/23 History carvediloL [Coreg] 12.5 mg PO DAILY@169910/30/22 04/14/23 History guaiFENesin SYRUP 100MG/5ML 200 mg PO Q4H PRN 10/30/22 04/14/23 History [Robitussin] Insulin Aspart [NovoLOG] See Protocol SQ ACHS 12/31/22 04/14/23 History Sennosides-Docusate Sodium 1 tab PO BID@0800,1700 12/31/22 04/14/23 History [Senokot-S] Liquacel 30 ml PO BID@0800,1700 04/05/23 04/14/23 History Vitamin E Cream 1 applic TOPICAL BID@0800,1700 04/05/23 04/14/23 History Gabapentin [Neurontin] 100 mg PO DAILY@0800 #2 cap 04/08/23 04/14/23 Rx Gabapentin [Neurontin] 200 mg PO HS #3 cap 04/08/23 04/14/23 Rx HYDROcodone/APAP 5-325MG [[place] 1 tab PO Q8H PRN #4 tab 04/08/23 04/14/23 Rx 5-325] Baclofen 5 mg PO TID@0800,1200,1700 04/14/23 04/14/23 History methylPREDNISolone [Medrol Dose See Taper PO DIRECTED 04/14/23 04/14/23 History Pack] Allergies Allergy/AdvReac Type Severity Reaction Status Date / Time No Known Allergies Allergy Verified 04/05/23 10:55 Physical Exam Vitals: Vital Signs Temp Pulse Pulse Resp BP BP Pulse Ox 04/15/23 07:34 98.3 F 64 14 176/70 97 04/15/23 01:02 96.8 F L 57 L 12 120/63 98 04/14/23 20:15 97.6 F 55 L 16 129/59 97 04/14/23 17:30 59 L 18 161/59 95 04/14/23 17:00 62 18 170/43 95 04/14/23 16:30 62 18 170/61 96 04/14/23 16:20 64 18 175/82 96 04/14/23 15:00 68 14 158/84 95 04/14/23 11:57 97.2 F L 59 L 18 156/69 95 Intake and Output 04/14/23 04/15/23 04/15/23 22:59 06:59 14:59 Output Total 300 Balance -300 Output: Urine 300 Other: Voiding Method Indwelling Catheter Weight 110.586 kg Results CBC & Chem 7: 04/14/23 12:19 04/14/23 12:19 Labs: Abnormal Lab Results - Last 24 Hours (Table) 04/14/23 04/14/23 04/14/23 Range/Units 12:19 12:19 12:19 MCV 100.4 H (80.0-100.0) fL VBG pH (7.31-7.41) VBG HCO3 (24-28) mmol/L Sodium 135 L (137-145) mmol/L Chloride 94 L (98-107) mmol/L BUN 49 H (7-17) mg/dL Creatinine 4.97 H (0.52-1.04) mg/dL Glucose 244 H (74-99) mg/dL POC Glucose (mg/dL) (70-110) mg/dL Magnesium 2.6 H (1.6-2.3) mg/dL AST 48 H (14-36) U/L Urine Appearance Turbid H (Clear) Urine Protein 1+ H (Negative) Urine Blood Small H (Negative) Ur Leukocyte Esterase Large H (Negative) Urine RBC 13 H (0-5) /hpf Urine WBC >182 H (0-5) /hpf Urine WBC Clumps Moderate H (None) /hpf Ur Squamous Epith Cells 5 H (0-4) /hpf Amorphous Sediment Occasional H (None) /hpf Urine Bacteria Rare H (None) /hpf 04/14/23 04/14/23 04/14/23 Range/Units 12:19 12:22 21:17 MCV (80.0-100.0) fL VBG pH 7.44 H (7.31-7.41) VBG HCO3 30 H (24-28) mmol/L Sodium (137-145) mmol/L Chloride (98-107) mmol/L BUN (7-17) mg/dL Creatinine (0.52-1.04) mg/dL Glucose (74-99) mg/dL POC Glucose (mg/dL) 262 H 188 H (70-110) mg/dL Magnesium (1.6-2.3) mg/dL AST (14-36) U/L Urine Appearance (Clear) Urine Protein (Negative) Urine Blood (Negative) Ur Leukocyte Esterase (Negative) Urine RBC (0-5) /hpf Urine WBC (0-5) /hpf Urine WBC Clumps (None) /hpf Ur Squamous Epith Cells (0-4) /hpf Amorphous Sediment (None) /hpf Urine Bacteria (None) /hpf 04/15/23 Range/Units 06:16 MCV (80.0-100.0) fL VBG pH (7.31-7.41) VBG HCO3 (24-28) mmol/L Sodium (137-145) mmol/L Chloride (98-107) mmol/L BUN (7-17) mg/dL Creatinine (0.52-1.04) mg/dL Glucose (74-99) mg/dL POC Glucose (mg/dL) 144 H (70-110) mg/dL Magnesium (1.6-2.3) mg/dL AST (14-36) U/L Urine Appearance (Clear) Urine Protein (Negative) Urine Blood (Negative) Ur Leukocyte Esterase (Negative) Urine RBC (0-5) /hpf Urine WBC (0-5) /hpf Urine WBC Clumps (None) /hpf Ur Squamous Epith Cells (0-4) /hpf Amorphous Sediment (None) /hpf Urine Bacteria (None) /hpf Assessment and Plan Plan: 1patient presented to hospital with weakness mental status changes which is likely multifactorial questionably metabolic at the patient not running any fever did not have any elevated white count patient abdominal was soft and examination chest x-ray was negative patient apparently still making good amount of urine at the patient have a Roper catheter draining clear urine and did have positive UA underlying UTI last night but not entirely excluded as no other obvious focus of infection 2-blood culture has been obtained and results will be followed to make sure evidence of any bacteremia associated with the permacatheter 3-we will check inflammatory markers 4-continue with the cefepime while waiting for the culture to finalize We will follow on clinical condition and cultures to further adjust medication if needed Thank you for this consultation we will follow the patient along with you Dictation was produced using [employer] dictation software. please excuse any grammatical, word or spelling errors. Time with Patient: Greater than 30
[2023-04-16 05:49] LABS: Glucose,Whole Blood 128 mg/dL (70-110)
[2023-04-16] MEDS: IPRATROPIUM-ALBUTEROL 3 ML NEB INHALATION SCH ×4 (08:42→20:15)
[2023-04-16] MEDS ORDERED: ACETAMINOPHEN IV (For NPO) 1,000 MG in EMPTY BAG 1 BAG IVPB ONE (08:52)
[2023-04-16 10:48] LABS: Basophils # (A) 0.02 X 10*3/uL (0.00-0.10); Basophils % (A) 0.3 %; Eosinophils # (A) 0.08 X 10*3/uL (0.04-0.35); Eosinophils % (A) 1.1 %; HCT 39.1 % (37.2-46.3); HGB 12.8 d/dL (12.0-15.0); Lymphocytes # (A) 2.21 X 10*3/uL (0.90-5.00); Lymphocytes % (A) 30.4 %; MCH 31.8 pg (27.0-32.0); MCHC 32.7 d/dL (32.0-37.0); Mean Platelet Volume 10.4 FL (9.5-12.2); Monocytes # (A) 0.58 X 10*3/uL (0.20-1.00); NRBC Per 100 WBC 0 X 10*3/uL (0.00-0.01); Neutrophils # (A) 4.37 X 10*3/uL (1.80-7.70); Neutrophils % (A) 59.9 %; Platelet Count 182 X 10*3/uL (140-440); RBC 4.03 X 10*6/uL (4.10-5.20); RDW 13.3 % (11.5-14.5); WBC 7.28 X 10*3/uL (4.50-10.00)
[2023-04-16 11:04] LABS: BUN/Creat Ratio 9.38 Ratio (12.00-20.00); Calcium 9.4 mg/dL (8.7-10.3); Chloride 104 mmol/L (96-109); Glucose 138 mg/dL (70-110); Potassium 5.2 mmol/L (3.5-5.5); Sodium 139 mmol/L (135-145)
[2023-04-16 11:25] LABS: Glucose,Whole Blood 110 mg/dL (70-110)
--- NOTE | 2023-04-16 11:46 | P.PN ---
Subjective Patient is seen for follow-up for end-stage renal disease. She was admitted to the hospital with mental status changes and lethargy. UA shows evidence of UTI with urine culture growing gram-negative bacilli. Blood cultures are also positive for gram-negative bacilli. Patient has an IJ permacath with no redness or discharge noted. Patient is maintained on IV antibiotics and mentation seems to have improved today. Patient is scheduled for hemodialysis today. Objective - Vital Signs Vital signs: Vital Signs Temp 97.2 F L 04/16/23 08:00 Pulse 64 04/16/23 08:53 Resp 17 04/16/23 08:00 BP 137/82 04/16/23 08:00 Pulse Ox 99 04/16/23 08:00 FiO2 Intake & Output 04/15/23 04/16/23 04/16/23 18:59 06:59 18:59 Output Total 300 200 Balance -300 -200 Output: Urine 300 200 Other: Voiding Method Indwelling Catheter Indwelling Catheter Indwelling Catheter - Exam Patient is awake Mentation appears to be improved from yesterday. Examination of the heart S1 and S2 Examination the lungs shows bilateral breath sounds are heard Abdomen is soft nontender Examination lower extremity shows no significant edema. - Labs CBC & Chem 7: 04/16/23 07:02 04/16/23 07:02 Labs: Abnormal Lab Results - Last 24 Hours (Table) 04/15/23 04/15/23 04/16/23 Range/Units 16:57 20:28 05:48 RBC (4.10-5.20) X 10*6/uL Anion Gap (4.00-12.00) mmol/L BUN (9.0-27.0) mg/dL Creatinine (0.6-1.5) mg/dL Est GFR (CKD-EPI) (>=60) BUN/Creatinine Ratio (12.00-20.00) Ratio Glucose (70-110) mg/dL POC Glucose (mg/dL) 155 H 135 H 128 H (70-110) mg/dL 04/16/23 04/16/23 Range/Units 07:02 07:02 RBC 4.03 L (4.10-5.20) X 10*6/uL Anion Gap 13.00 H (4.00-12.00) mmol/L BUN 61.0 H (9.0-27.0) mg/dL Creatinine 6.5 H (0.6-1.5) mg/dL Est GFR (CKD-EPI) 7 L (>=60) BUN/Creatinine Ratio 9.38 L (12.00-20.00) Ratio Glucose 138 H (70-110) mg/dL POC Glucose (mg/dL) (70-110) mg/dL Microbiology - Last 24 Hours (Table) 04/14/23 12:19 Blood Culture Gram Stain - Preliminary Blood 04/14/23 12:19 Blood Culture - Preliminary Blood 04/14/23 12:19 Urine Culture - Preliminary Urine,Voided Gram Neg Bacilli Assessment and Plan Assessment: 1. End-stage renal disease on hemodialysis on a Saturday schedule. Patient has a right IJ permacath. She recently had thrombectomy of the left arm AV graft on 04/05/[address] Leung. 2. Mental status changes, secondary to underlying infection CT of the head is unremarkable. 3. CK D mineral bone disorder 4. Gram-negative bacteremia with urine culture also growing gram-negative bacilli. Patient has an IJ permacath as well. We have been using the left arm AV graft as outpatient and the permacath will be discontinued after treatment today. Plan: Continue antibiotics Hemodialysis today using IJ permacath DC dialysis catheter this admission as we have been using her left arm AV graft as outpatient. DC Roper catheter
[2023-04-16] MEDS: CLOPIDOGREL 75 MG TAB PO SCH (12:43)
[2023-04-16] MEDS: allopurinoL 100 MG TAB PO SCH (12:43)
[2023-04-16] MEDS: CALCIUM ACETATE 667 MG TAB PO SCH ×4 (12:43→20:51)
[2023-04-16] MEDS: FUROSEMIDE 20 MG TAB PO SCH ×2 (12:43→17:13)
[2023-04-16] MEDS: BACLOFEN 10 MG TAB PO SCH ×3 (12:43→17:13)
[2023-04-16] MEDS: VITAMIN E TOPICAL SCH ×2 (12:44→17:13)
[2023-04-16] MEDS: LEVOTHYROXINE 25 MCG TAB PO SCH (12:44)
[2023-04-16] MEDS: ISOSORBIDE MONONITRATE ER 30 MG TAB.ER.24H PO SCH ×2 (12:44→17:13)
[2023-04-16] MEDS: SENNOSIDES-DOCUSATE SODIUM 1 EACH TAB PO SCH ×2 (12:44→17:13)
[2023-04-16] MEDS: GABAPENTIN 100 MG CAP PO SCH (12:44)
[2023-04-16] MEDS: methylPREDNISolone 4 MG TAB TAPER PO SCH (12:45)
[2023-04-16] MEDS ORDERED: hydrALAZINE HCL 20 MG/ML 1 ML VIAL IVP PRN (14:33)
--- NOTE | 2023-04-16 14:43 | P.PN ---
Subjective Progress Note Date: 04/16/23 Principal diagnosis: Possible UTI and positive blood culture Patient is a 67-year-old female with a past medical history significant for end-stage renal disease maintained on dialysis Saturday through the [facility] , has been sent to the ER for evaluation of mental status changes weakness and decreased level of responsiveness did have a positive UA, blood cultures not coming back positive with staph epi On today's evaluation that is04/16/2023, the patient remains to be afebrile, the patient is breathing comfortably on room air without the need for supplemental oxygen the patient is slightly more awake and alert today and denies any shortness of breath, the patient denies having any chest pain or cough, patient denies nausea/vomiting /diarrhea and no abdominal pain, Patient white count of 7.28, creatinine 6.5, blood culture with staph epi Objective - Vital Signs Vital signs: Vital Signs Temp 97.2 F L 04/16/23 08:00 Pulse 64 04/16/23 08:53 Resp 17 04/16/23 08:00 BP 137/82 04/16/23 08:00 Pulse Ox 99 04/16/23 08:00 FiO2 Intake & Output 04/15/23 04/16/23 04/16/23 18:59 06:59 18:59 Output Total 300 200 Balance -300 -200 Output: Urine 300 200 Other: Voiding Method Indwelling Catheter Indwelling Catheter Indwelling Catheter - Exam GENERAL DESCRIPTION: An elderly female lying in bed in no distress RESPIRATORY SYSTEM: Unlabored breathing , clear to auscultation anteriorly HEART: S1 S2 regular rate and rhythm , ABDOMEN: Soft , no tenderness EXTREMITIES: No edema feet - Labs CBC & Chem 7: 04/16/23 07:02 04/16/23 07:02 Labs: Abnormal Lab Results - Last 24 Hours (Table) 04/15/23 04/15/23 04/15/23 Range/Units 11:29 16:57 20:28 RBC (4.10-5.20) X 10*6/uL Anion Gap (4.00-12.00) mmol/L BUN (9.0-27.0) mg/dL Creatinine (0.6-1.5) mg/dL Est GFR (CKD-EPI) (>=60) BUN/Creatinine Ratio (12.00-20.00) Ratio Glucose (70-110) mg/dL POC Glucose (mg/dL) 138 H 155 H 135 H (70-110) mg/dL 04/16/23 04/16/23 04/16/23 Range/Units 05:48 07:02 07:02 RBC 4.03 L (4.10-5.20) X 10*6/uL Anion Gap 13.00 H (4.00-12.00) mmol/L BUN 61.0 H (9.0-27.0) mg/dL Creatinine 6.5 H (0.6-1.5) mg/dL Est GFR (CKD-EPI) 7 L (>=60) BUN/Creatinine Ratio 9.38 L (12.00-20.00) Ratio Glucose 138 H (70-110) mg/dL POC Glucose (mg/dL) 128 H (70-110) mg/dL Microbiology - Last 24 Hours (Table) 04/14/23 12:19 Blood Culture - Preliminary Blood 04/14/23 12:19 Urine Culture - Preliminary Urine,Voided Gram Neg Bacilli Assessment and Plan (1) Positive blood culture Current Visit: Yes Status: Acute Code(s): R78.81 - BACTEREMIA SNOMED Code(s): 778748999 (2) UTI (urinary tract infection) Current Visit: Yes Status: Acute Code(s): N39.0 - URINARY TRACT INFECTION, SITE NOT SPECIFIED SNOMED Code(s): 68133747 Plan: 1patient presented to hospital with weakness mental status changes which is likely multifactorial questionably metabolic at the patient not running any fever did not have any elevated white count patient abdominal was soft and examination chest x-ray was negative patient apparently still making good amount of urine at the patient have a Roper catheter draining clear urine and did have positive UA underlying UTI last night but not entirely excluded as no other obvious focus of infection 2-blood culture has been obtained and growing staph epi that is oxacillin sensitive with a question of possible contamination versus related to permacatheter, blood cultures were obtained from dialysis catheter today at the time of dialysis 3-patient to with the cefepime while waiting for the culture to finalize Dictation was produced using [employer] dictation software. please excuse any grammatical, word or spelling errors. Time with Patient: Less than 30
[2023-04-16] MEDS ORDERED: ACETAMINOPHEN IV (For NPO) 1,000 MG in EMPTY BAG 1 BAG IVPB PRN (15:42)
[2023-04-16 16:17] LABS: Glucose,Whole Blood 126 mg/dL (70-110)
[2023-04-16] MEDS: CEFEPIME 1 GM in SODIUM CHLORIDE 0.9% 50 ML IVPB SCH (16:32)
[2023-04-16] MEDS: SODIUM CHLORIDE 0.9% 1,000 ML IV SCH (17:12)
[2023-04-16] MEDS: CHOLECALCIFEROL 25 MCG (1000 IU) TABLET PO SCH (17:13)
[2023-04-16] MEDS: carvediloL 12.5 MG TAB PO SCH (17:13)
[2023-04-16] MEDS: FOLIC ACID-VIT B COMPLEX-VIT C 1 CAP PO SCH (17:13)
[2023-04-16] MEDS: ASPIRIN 81 MG PO SCH (17:13)
[2023-04-16] MEDS ORDERED: ACETAMINOPHEN IV (For NPO) 1,000 MG in EMPTY BAG 1 BAG IVPB SCH (18:00)
[2023-04-16 20:25] LABS: Glucose,Whole Blood 121 mg/dL (70-110)
[2023-04-16] MEDS: ACETAMINOPHEN TAB 325 MG TAB PO PRN (20:51)
[2023-04-16] MEDS: ATORVASTATIN 40 MG TAB PO SCH (20:51)
[2023-04-16] MEDS: MONTELUKAST 10 MG TAB PO SCH (20:51)
[2023-04-16] MEDS: INSULIN DETEMIR (LEVEMIR) 100 UNIT/ML SYR SQ SCH (20:52)
--- NOTE | 2023-04-16 22:47 | PN ---
PROGRESS NOTE DATE OF SERVICE: 04/16/2023 SUBJECTIVE: This is a 67-year-old woman who was admitted with change in mental status and had possible UTI with sepsis. The patient's sensorium is slightly improved. No chest pain, no palpitations, no fever. OBJECTIVE: VITAL SIGNS: Pulse is 62, blood pressure 137/80, and respirations 17. CHEST: Scattered rhonchi. ABDOMEN: Soft. NERVOUS SYSTEM: No focal deficits. LABORATORY DATA: Reviewed. Cultures, gram-negative bacilli. ASSESSMENT: 1. Change in mental status, possibly UTI with sepsis with gram-negative bacilli. 2. Chronic kidney disease, on hemodialysis. 3. History of asthma. 4. CHF. 5. Chronic obstructive pulmonary disease. 6. CVA, TIA. 7. Diabetes mellitus, type 2. 8. Hypertension. 9. Hyperlipidemia. 10.History of pulmonary embolism. 11.Multiple complex medical issues. RECOMMENDATIONS: Recommended to continue current management, continue symptomatic treatment, continue the antibiotics. Continue hemodialysis. Closely follow. Guarded prognosis. Further recommendations to follow. MMODL / IJN: [id number] /
[2023-04-16] MEDS ORDERED: LORazepam 2 MG/ML INJ IV STA (23:30)
[2023-04-17] MEDS: ACETAMINOPHEN TAB 325 MG TAB PO PRN (02:54)
[2023-04-17] MEDS ORDERED: HALOPERIDOL LACTATE 5 MG/ML 1 ML VIAL IM STA (07:32)
[2023-04-17] MEDS: LEVOTHYROXINE 25 MCG TAB PO SCH (07:39)
[2023-04-17] MEDS: carvediloL 12.5 MG TAB PO SCH ×2 (07:40→16:26)
[2023-04-17] MEDS: FUROSEMIDE 20 MG TAB PO SCH ×2 (07:40→16:26)
[2023-04-17] MEDS: methylPREDNISolone 4 MG TAB TAPER PO SCH (07:40)
[2023-04-17] MEDS: allopurinoL 100 MG TAB PO SCH (07:40)
[2023-04-17] MEDS: GABAPENTIN 100 MG CAP PO SCH (07:40)
[2023-04-17] MEDS: ISOSORBIDE MONONITRATE ER 30 MG TAB.ER.24H PO SCH ×2 (07:41→16:26)
[2023-04-17] MEDS: SENNOSIDES-DOCUSATE SODIUM 1 EACH TAB PO SCH ×2 (07:41→16:26)
[2023-04-17] MEDS: CALCIUM ACETATE 667 MG TAB PO SCH ×5 (07:41→22:17)
[2023-04-17] MEDS: CLOPIDOGREL 75 MG TAB PO SCH (07:41)
[2023-04-17] MEDS: HYDROcodone/APAP 5-325MG 1 EACH TAB PO PRN ×2 (07:43→20:56)
[2023-04-17] MEDS: BACLOFEN 10 MG TAB PO SCH ×3 (07:44→16:26)
[2023-04-17] MEDS: VITAMIN E TOPICAL SCH ×2 (07:55→16:27)
[2023-04-17] MEDS: IPRATROPIUM-ALBUTEROL 3 ML NEB INHALATION SCH ×4 (08:22→20:53)
[2023-04-17 11:22] LABS: Glucose,Whole Blood 112 mg/dL (70-110)
--- NOTE | 2023-04-17 14:29 | PN ---
PROGRESS NOTE DATE OF SERVICE: 04/17/2023 SUBJECTIVE: This is a 67-year-old woman who was admitted with UTI sepsis is growing gram- negative bacilli from the culture. Blood cultures, coagulase-negative Staph, E coli is poly- sensitive. No chest pain, no palpitation. OBJECTIVE: GENERAL: The patient is confused. VITAL SIGNS: Pulse 105, blood pressure n, respirations 18. CHEST: A few scattered rhonchi. CARDIOVASCULAR: S1, S2. ABDOMEN: Soft. NERVOUS SYSTEM: Diffusely weak. LABORATORY DATA: Reviewed. ASSESSMENT: 1. Change in mental status, acute urinary tract infection with sepsis with Klebsiella pneumonia present on admission. 2. Chronic kidney disease, on hemodialysis. 3. History of asthma. 4. History of CHF. 5. Multiple complex medical issues. RECOMMENDATIONS: Recommended to continue current medications, continue symptomatic treatment. Otherwise, I will recommend to continue the antibiotics. Repeat labs. Continue with hemodialysis and prognosis guarded. Further recommendations to follow. PT, OT evaluated. MMODL / IJN: [id number] / DAMON
[2023-04-17] MEDS: CHOLECALCIFEROL 25 MCG (1000 IU) TABLET PO SCH (16:26)
[2023-04-17] MEDS: ASPIRIN 81 MG PO SCH (16:26)
[2023-04-17] MEDS: CEFEPIME 1 GM in SODIUM CHLORIDE 0.9% 50 ML IVPB SCH (16:26)
[2023-04-17] MEDS: SODIUM CHLORIDE 0.9% 1,000 ML IV SCH (16:27)
[2023-04-17] MEDS: FOLIC ACID-VIT B COMPLEX-VIT C 1 CAP PO SCH (16:27)
[2023-04-17 16:30] LABS: Glucose,Whole Blood 138 mg/dL (70-110)
[2023-04-17 20:20] LABS: Glucose,Whole Blood 118 mg/dL (70-110)
[2023-04-17] MEDS: INSULIN DETEMIR (LEVEMIR) 100 UNIT/ML SYR SQ SCH (20:55)
[2023-04-17] MEDS: MONTELUKAST 10 MG TAB PO SCH ×2 (20:56→22:17)
[2023-04-17] MEDS: ATORVASTATIN 40 MG TAB PO SCH ×2 (20:56→22:17)
--- NOTE | 2023-04-17 20:58 | P.PN ---
Subjective Patient is seen for follow-up for end-stage renal disease. She was admitted to the hospital with mental status changes and lethargy. UA shows evidence of UTI with urine culture growing gram-negative bacilli. Blood cultures positive for gram-positive cocci. Patient has an IJ permacath with no redness or discharge noted. Patient is maintained on IV antibiotics and mentation seems to have improved today. Patient is scheduled for hemodialysis today. Objective - Vital Signs Vital signs: Vital Signs Temp 98.3 F 04/17/23 14:00 Pulse 89 04/17/23 14:00 Resp 19 04/17/23 14:00 BP 132/70 04/17/23 14:00 Pulse Ox 97 04/17/23 14:00 FiO2 Intake & Output 04/17/23 04/17/23 04/18/23 06:59 18:59 06:59 Other: Voiding Method Diaper Diaper # Voids 1 0 - Exam Patient is awake Mentation appears to be improved from yesterday. Examination of the heart S1 and S2 Examination the lungs shows bilateral breath sounds are heard Abdomen is soft nontender Examination lower extremity shows no significant edema. - Labs CBC & Chem 7: 04/16/23 07:02 04/16/23 07:02 Labs: Abnormal Lab Results - Last 24 Hours (Table) 04/17/23 04/17/23 04/17/23 Range/Units 11:21 16:29 20:19 POC Glucose (mg/dL) 112 H 138 H 118 H (70-110) mg/dL Microbiology - Last 24 Hours (Table) 04/16/23 12:30 Blood Culture - Preliminary Blood 04/14/23 12:19 Blood Culture Gram Stain - Preliminary Blood Blood Culture - Preliminary Coagulase Negative Staph 04/14/23 12:19 Blood Culture - Preliminary Blood Assessment and Plan Assessment: 1. End-stage renal disease on hemodialysis on a Saturday schedule. Patient has a right IJ permacath. She recently had thrombectomy of the left arm AV graft on 04/05/[address] Leung. 2. Mental status changes, secondary to underlying infection. CT of the head is unremarkable. 3. CK D mineral bone disorder 4. Gram-negative bacteremia with urine culture also growing gram-negative bacilli. Patient has an IJ permacath as well. We have been using the left arm AV graft as outpatient and the permacath will be discontinued after treatment today. Plan: Continue antibiotics Hemodialysis in am DC dialysis catheter after HD as we have been using her left arm AV graft as outpatient.
[2023-04-18 06:21] LABS: Glucose,Whole Blood 90 mg/dL (70-110)
[2023-04-18] MEDS: IPRATROPIUM-ALBUTEROL 3 ML NEB INHALATION SCH ×4 (08:04→22:06)
[2023-04-18 08:31] LABS: Basophils % (A) 0 %; Eosinophils # (A) 0.1 k/uL (0-0.7); Eosinophils % (A) 1 %; HCT 38.1 % (34.0-46.0); HGB 12.4 gm/dL (11.4-16.0); Lymphocytes # (A) 3.2 k/uL (1.0-4.8); Lymphocytes % (A) 26 %; MCH 32.2 pg (25.0-35.0); MCHC 32.5 g/dL (31.0-37.0); Mean Platelet Volume 9.2; Monocytes # (A) 0.8 k/uL (0-1.0); Monocytes % (A) 6 %; Neutrophils # (A) 8.2 k/uL (1.3-7.7); Neutrophils % (A) 65 %; Platelet Count 113 k/uL (150-450); RBC 3.85 m/uL (3.80-5.40); RDW 13.5 % (11.5-15.5); WBC 12.6 k/uL (3.8-10.6)
[2023-04-18 09:35] LABS: African American GFR (CKD) 7 (>60 ml/min/1.73 sqM); Anion Gap 16 mmol/L; Blood Urea Nitrogen 52 mg/dL (7-17); Calcium 9.8 mg/dL (8.4-10.2); Carbon Dioxide 17 mmol/L (22-30); Chloride 101 mmol/L (98-107); Glucose 76 mg/dL (74-99); Non-African American GFR(CKD) 6 (>60 ml/min/1.73 sqM); Potassium 4.4 mmol/L (3.5-5.1); Sodium 134 mmol/L (137-145)
[2023-04-18] MEDS: CALCIUM ACETATE 667 MG TAB PO SCH ×5 (09:42→21:19)
[2023-04-18] MEDS: VITAMIN E TOPICAL SCH ×2 (09:47→18:20)
[2023-04-18] MEDS: BACLOFEN 10 MG TAB PO SCH ×4 (09:54→18:19)
[2023-04-18] MEDS: allopurinoL 100 MG TAB PO SCH (09:54)
[2023-04-18] MEDS: CLOPIDOGREL 75 MG TAB PO SCH (09:55)
[2023-04-18] MEDS: LEVOTHYROXINE 25 MCG TAB PO SCH (09:55)
[2023-04-18] MEDS: methylPREDNISolone 4 MG TAB TAPER PO SCH (09:55)
[2023-04-18] MEDS: ISOSORBIDE MONONITRATE ER 30 MG TAB.ER.24H PO SCH ×2 (09:55→17:52)
[2023-04-18] MEDS: FUROSEMIDE 20 MG TAB PO SCH ×2 (09:55→17:52)
[2023-04-18] MEDS: GABAPENTIN 100 MG CAP PO SCH (09:55)
[2023-04-18] MEDS: SENNOSIDES-DOCUSATE SODIUM 1 EACH TAB PO SCH ×2 (09:55→18:20)
[2023-04-18 11:38] LABS: Glucose,Whole Blood 92 mg/dL (70-110)
--- NOTE | 2023-04-18 12:18 | P.PN ---
Subjective Patient is seen for follow-up for end-stage renal disease. She was admitted to the hospital with mental status changes and lethargy. UA shows evidence of UTI with urine culture growing gram-negative bacilli. Blood cultures positive for gram-positive cocci. Patient has an IJ permacath with no redness or discharge noted. Patient is maintained on IV antibiotics and mentation seems to have improved today. Patient is seen on hemodialysis. She remains confused although much more awake than on admission. Objective - Vital Signs Vital signs: Vital Signs Temp 98.4 F 04/18/23 07:29 Pulse 80 04/18/23 07:29 Resp 15 04/18/23 07:29 BP 186/82 04/18/23 07:29 Pulse Ox 98 04/18/23 07:29 FiO2 Intake & Output 04/17/23 04/18/23 04/18/23 18:59 06:59 18:59 Other: Voiding Method Diaper Diaper Diaper # Voids 0 1 # Bowel Movements 1 - Exam Patient is awake Patient remains confused although much more awake than on admission Examination of the heart S1 and S2 Examination the lungs shows bilateral breath sounds are heard Abdomen is soft nontender Examination lower extremity shows no significant edema. - Labs CBC & Chem 7: 04/18/23 07:05 04/18/23 07:05 Labs: Abnormal Lab Results - Last 24 Hours (Table) 04/17/23 04/17/23 04/18/23 Range/Units 16:29 20:19 07:05 WBC 12.6 H (3.8-10.6) k/uL Plt Count 113 L (150-450) k/uL Neutrophils # 8.2 H (1.3-7.7) k/uL Sodium (137-145) mmol/L Carbon Dioxide (22-30) mmol/L BUN (7-17) mg/dL Creatinine (0.52-1.04) mg/dL POC Glucose (mg/dL) 138 H 118 H (70-110) mg/dL 04/18/23 Range/Units 07:05 WBC (3.8-10.6) k/uL Plt Count (150-450) k/uL Neutrophils # (1.3-7.7) k/uL Sodium 134 L (137-145) mmol/L Carbon Dioxide 17 L (22-30) mmol/L BUN 52 H (7-17) mg/dL Creatinine 6.43 H (0.52-1.04) mg/dL POC Glucose (mg/dL) (70-110) mg/dL Microbiology - Last 24 Hours (Table) 04/14/23 12:19 Blood Culture - Preliminary Blood 04/16/23 12:30 Blood Culture - Preliminary Blood 04/14/23 12:19 Blood Culture Gram Stain - Preliminary Blood Blood Culture - Preliminary Coagulase Negative Staph Assessment and Plan Assessment: 1. End-stage renal disease on hemodialysis on a Saturday schedule. Patient has a right IJ permacath. She recently had thrombectomy of the left arm AV graft on 04/05/[address] Leung. We have been able to use her graft as outpatient for more than a week. 2. Mental status changes, secondary to underlying infection. CT of the head is unremarkable. 3. CK D mineral bone disorder 4. Gram-positive bacteremia Patient has an IJ permacath as well. We have been using the left arm AV graft as outpatient and the permacath will be discontinued after treatment today. 5. UTI with urine culture growing E. coli Plan: Continue antibiotics Hemodialysis today Check blood cultures during dialysis DC dialysis catheter after HD as we have been using her left arm AV graft as outpatient.
--- NOTE | 2023-04-18 15:18 | P.PN ---
Subjective Progress Note Date: 04/18/23 This is a 67 rolled female who was recently admitted for [facility] with altered mental status with concerns of possible acute urinary tract infection. Culture showing E. coli with some sensitivities and repeat blood cultures have been ordered and pending including cultures from the dialysis catheter tip with concerns for infection coming from the source. Infectious disease is following and patient is maintained on IV antibiotics and awaiting finalized cultures. Patient's mentation continues to be somewhat confused although is slightly improved. Patient maintained on hemodialysis with nephrology following closely. Patient follows with nephrology outpatient and is maintained on dialysis Saturday/Saturday/Saturday. Patient is currently afebrile with no reported chest pain or shortness of breath. Patient is tolerating diet and has been selective on taking scheduled medications. Review of systems: Constitutional: No reports of fatigue, fever, or chills Cardiovascular: No reports of chest pain or palpitations Respiratory: No reports of shortness of breath or cough GI: No reports of nausea, no reports of vomiting, no diarrhea : No reports of dysuria or retention Neurovascular: reports of generalized weakness All medications have been reviewed Active Medications Acetaminophen (Acetaminophen Tab 325 Mg Tab) 650 mg PO Q4H PRN PRN Reason: Fever and/ or Pain Last Admin: 04/17/23 02:54 Dose: 650 mg Hydrocodone Bitart/Acetaminophen (Hydrocodone/Apap 5-325mg 1 Each Tab) 1 each PO Q6HR PRN PRN Reason: Pain Last Admin: 04/17/23 07:43 Dose: 1 each Albuterol/Ipratropium (Ipratropium-Albuterol 3 Ml Neb) 3 ml INHALATION RT-QID [facility] Last Admin: 04/18/23 11:33 Dose: Not Given Allopurinol (Allopurinol 100 Mg Tab) 100 mg PO DAILY@0800 [facility] Last Admin: 04/18/23 09:54 Dose: Not Given Aspirin (Aspirin 81 Mg) 81 mg PO DAILY@1700 [facility] Last Admin: 04/17/23 16:26 Dose: 81 mg Atorvastatin Calcium (Atorvastatin 40 Mg Tab) 40 mg PO HS@2100 [facility] Last Admin: 04/17/23 22:17 Dose: Not Given Baclofen (Baclofen 10 Mg Tab) 5 mg PO TID@0800,1200,1700 [facility] Last Admin: 04/18/23 12:56 Dose: Not Given Bisacodyl (Bisacodyl 10 Mg Supp) 10 mg RECTAL DAILY PRN PRN Reason: Constipation Calcium Acetate (Calcium Acetate 667 Mg Tab) 1,334 mg PO AC-TID [facility] Last Admin: 04/18/23 12:56 Dose: Not Given Calcium Acetate (Calcium Acetate 667 Mg Tab) 667 mg PO HS [facility] Last Admin: 04/17/23 22:17 Dose: Not Given Carvedilol (Carvedilol 12.5 Mg Tab) 12.5 mg PO SUMOWEFR@0800 [facility] Last Admin: 04/17/23 07:40 Dose: 12.5 mg Carvedilol (Carvedilol 12.5 Mg Tab) 12.5 mg PO DAILY@1700 [facility] Last Admin: 04/17/23 16:26 Dose: 12.5 mg Cholecalciferol (Cholecalciferol 25 Mcg (1000 Iu) Tablet) 50 mcg PO DAILY@1700 [facility] Last Admin: 04/17/23 16:26 Dose: 50 mcg Clopidogrel Bisulfate (Clopidogrel 75 Mg Tab) 75 mg PO DAILY@0800 [facility] Last Admin: 04/18/23 09:55 Dose: Not Given Furosemide (Furosemide 20 Mg Tab) 60 mg PO BID@0800,1700 [facility] Last Admin: 04/18/23 09:55 Dose: Not Given Gabapentin (Gabapentin 100 Mg Cap) 100 mg PO DAILY@0800 [facility] Last Admin: 04/18/23 09:55 Dose: Not Given Guaifenesin (Guaifenesin Syrup 100mg/5ml 200 Mg/10 Ml Cup) 200 mg PO Q4H PRN PRN Reason: Cough Hydralazine HCl (Hydralazine Hcl 20 Mg/Ml 1 Ml Vial) 10 mg IVP Q4HR PRN PRN Reason: Blood Pressure - High Last Admin: 04/16/23 14:56 Dose: 10 mg Sodium Chloride (Saline 0.9%) 1,000 mls @ 20 mls/hr IV .Q24H [facility] Last Admin: 04/17/23 16:27 Dose: 20 mls/hr Cefepime HCl 1 gm/ Sodium (Chloride) 50 mls @ 12.5 mls/hr IVPB Q24H [facility]; Protocol Last Admin: 04/17/23 16:26 Dose: 12.5 mls/hr Insulin Detemir (Insulin Detemir (Levemir) 100 Unit/Ml Syr) 20 unit SQ HS@2130 [facility] Last Admin: 04/17/23 20:55 Dose: 20 unit Isosorbide Mononitrate (Isosorbide Mononitrate Er 30 Mg Tab.Er.24h) 30 mg PO BID@0800,1700 [facility] Last Admin: 04/18/23 09:55 Dose: Not Given Levothyroxine Sodium (Levothyroxine 88 Mcg Tab) 176 mcg PO DAILY@0800 [facility] Methylprednisolone (Methylprednisolone 4 Mg Tab Taper) 12 mg PO DAILY [facility]; Taper Stop: 04/21/23 08:59 Last Admin: 04/18/23 09:55 Dose: Not Given Montelukast Sodium (Montelukast 10 Mg Tab) 10 mg PO [facility] Last Admin: 04/17/23 22:17 Dose: Not Given Multivit/Ca Carb/B Cmplx/FA/Prenat (Folic Acid-Vit B Complex-Vit C 1 Cap) 1 each PO DAILY@1700 [facility] Last Admin: 04/17/23 16:27 Dose: 1 each Naloxone HCl (Naloxone 0.4 Mg/Ml 1 Ml Vial) 0.2 mg IV Q2M PRN PRN Reason: Opioid Reversal Last Admin: 04/15/23 11:06 Dose: 0.2 mg Non-Formulary Medication (Vitamin E Cream) 1 applic TOPICAL BID@0800,1700 [facility] Last Admin: 04/18/23 09:47 Dose: Not Given Ondansetron HCl (Ondansetron 4 Mg Tab) 4 mg PO BID PRN PRN Reason: Nausea-takes w/dialysis Senna/Docusate Sodium (Sennosides-Docusate Sodium 1 Each Tab) 1 each PO BID@0800,1700 [facility] Last Admin: 04/18/23 09:55 Dose: Not Given PHYSICAL EXAMINATION: GENERAL: The patient is alert and oriented x1-2, intermittently confused Well developed, well nourished. obese HEENT: Pupils are round and equally reacting to light. EOMI. no scleral icterus. No conjunctival pallor. Normocephalic, atraumatic. No pharyngeal erythema. No thyromegaly. CARDIOVASCULAR: S1 and S2 muffled PULMONARY: diminished breath sounds bilaterally with no wheezing or rhonchi noted. ABDOMEN: soft. Nontender on exam. obese. non-distended, normoactive bowel sounds. No palpable organomegaly. MUSCULOSKELETAL: No joint swelling or deformity. EXTREMITIES: No cyanosis, clubbing, or pedal edema. NEUROLOGICAL: Gross neurological examination did not reveal any focal deficits. Diffuse weakness SKIN: No rashes. Assessment: Change in mental status, acute urinary tract infection with features of sepsis, present on admission. Cultures showing E. coli Concerns for possible dialysis catheter infection, cultures currently pending ESRD, maintained on hemodialysis Diabetes mellitus2, insulin-dependent History of asthma, not an exacerbation Obesity with a BMI 37.1 History of CHF with diastolic dysfunction, not an exacerbation, most recent EF is 50-55% History of coronary artery disease History of CVA/TIA Hyperlipidemia History of hypertension History of rheumatoid arthritis History of pulmonary embolism History of anxiety/depression GI prophylaxis DVT prophylaxis Full code Plan: Patient is maintained on IV antibiotics in the form of cefepime with infectious disease following awaiting finalized cultures including blood cultures from a dialysis catheter. Urine cultures finalized showing E. coli with sensitivities Awaiting finalized cultures with replete blood cultures ordered and pending from today from dialysis catheter with concerns of right chest wall port catheter infection. Per nursing staff patient has been refusing some of her medications Continue with Accu-Cheks before meals and at bedtime and continue sliding scale home medications reviewed and resumed as appropriate Mentation not quite back to baseline. Continue with frequent reorientation and blinds and shades open during the day Plan is to return to [facility] once stabilized and finalized cultures have been resulted Due to multiple complex medical issues, prognosis is guarded The impression and plan of care has been dictated by Tamia Li, nurse practitioner as directed. Dr. Pablo MD I have performed a history and examination and MDM of this patient, discussed the same with the dictator, and agree with the dictator's assessment and plan as written ,documented as a scribe. Based on total visit time, I have performed more than 50% of the visit. Any additional findings or plans will be noted. Objective - Vital Signs Vital signs: Vital Signs Temp 97 F L 04/18/23 13:28 Pulse 62 04/18/23 13:28 Resp 20 04/18/23 13:28 BP 122/98 04/18/23 13:28 Pulse Ox 98 04/18/23 07:29 FiO2 Intake & Output 04/17/23 04/18/2304/18/23 18:59 06:59 18:59 Intake Total 800 Output Total 1818 Balance -1018 Intake: Hemodialysis 800 Output: Hemodialysis 1818 Other: Voiding Method Diaper Diaper Diaper # Voids 0 1 # Bowel Movements 1 - Labs CBC & Chem 7: 04/18/23 07:05 04/18/23 07:05 Labs: Abnormal Lab Results - Last 24 Hours (Table) 04/17/23 04/17/23 04/18/23 Range/Units 16:29 20:19 07:05 WBC 12.6 H (3.8-10.6) k/uL Plt Count 113 L (150-450) k/uL Neutrophils # 8.2 H (1.3-7.7) k/uL Sodium (137-145) mmol/L Carbon Dioxide (22-30) mmol/L BUN (7-17) mg/dL Creatinine (0.52-1.04) mg/dL POC Glucose (mg/dL) 138 H 118 H (70-110) mg/dL 04/18/23 Range/Units 07:05 WBC (3.8-10.6) k/uL Plt Count (150-450) k/uL Neutrophils # (1.3-7.7) k/uL Sodium 134 L (137-145) mmol/L Carbon Dioxide 17 L (22-30) mmol/L BUN 52 H (7-17) mg/dL Creatinine 6.43 H (0.52-1.04) mg/dL POC Glucose (mg/dL) (70-110) mg/dL Microbiology - Last 24 Hours (Table) 04/14/23 12:19 Blood Culture - Preliminary Blood 04/16/23 12:30 Blood Culture - Preliminary Blood
[2023-04-18] MEDS: SODIUM CHLORIDE 0.9% 1,000 ML IV SCH (16:49)
[2023-04-18] MEDS: CEFEPIME 1 GM in SODIUM CHLORIDE 0.9% 50 ML IVPB SCH (16:49)
[2023-04-18] MEDS: carvediloL 12.5 MG TAB PO SCH (17:53)
[2023-04-18] MEDS: ASPIRIN 81 MG PO SCH (18:19)
[2023-04-18] MEDS: CHOLECALCIFEROL 25 MCG (1000 IU) TABLET PO SCH (18:20)
[2023-04-18] MEDS: FOLIC ACID-VIT B COMPLEX-VIT C 1 CAP PO SCH (18:20)
--- NOTE | 2023-04-18 20:55 | P.PN ---
Subjective Progress Note Date: 04/17/23 Principal diagnosis: Possible UTI and positive blood culture Patient is a 67-year-old female with a past medical history significant for end-stage renal disease maintained on dialysis Saturday through the [facility] , has been sent to the ER for evaluation of mental status changes weakness and decreased level of responsiveness did have a positive UA, blood cultures not coming back positive with staph epi On today's evaluation that is 04/17/2023, the patient denies any fever and chills, the patient is more awake and alert today and is breathing comfortably on room air and denies any shortness of breath, the patient denies having any chest pain or cough, patient denies Abdominal pain, nausea/vomiting /diarrhea Patient white count of 7.28, creatinine 6.5 as of yesterday , blood culture with staph epi Objective - Vital Signs Vital signs: Vital Signs Temp 98.7 F 04/17/23 07:15 Pulse 105 H 04/17/23 07:15 Resp 18 04/17/23 07:15 BP 155/79 04/17/23 07:15 Pulse Ox 97 04/17/23 08:22 FiO2 Intake & Output 04/16/23 04/17/23 04/17/23 18:59 06:59 18:59 Intake Total 400 Output Total 1400 Balance -1000 Intake: Hemodialysis 400 Output: Hemodialysis 1400 Other: Voiding Method Indwelling Catheter Diaper Diaper # Voids 1 - Exam GENERAL DESCRIPTION: An elderly female lying in bed in no distress RESPIRATORY SYSTEM: Unlabored breathing , clear to auscultation anteriorly HEART: S1 S2 regular rate and rhythm , ABDOMEN: Soft , no tenderness EXTREMITIES: No edema feet - Labs CBC & Chem 7: 04/18/23 07:05 04/18/23 07:05 Labs: Abnormal Lab Results - Last 24 Hours (Table) 04/16/23 04/16/23 04/17/23 Range/Units 16:16 20:23 11:21 POC Glucose (mg/dL) 126 H 121 H 112 H (70-110) mg/dL Microbiology - Last 24 Hours (Table) 04/14/23 12:19 Blood Culture Gram Stain - Preliminary Blood Blood Culture - Preliminary Coagulase Negative Staph 04/14/23 12:19 Blood Culture - Preliminary Blood 04/14/23 12:19 Urine Culture - Final Urine,Voided Escherichia coli Assessment and Plan (1) Positive blood culture Current Visit: Yes Status: Acute Code(s): R78.81 - BACTEREMIA SNOMED Code(s): 816334749 (2) UTI (urinary tract infection) Current Visit: Yes Status: Acute Code(s): N39.0 - URINARY TRACT INFECTION, SITE NOT SPECIFIED SNOMED Code(s): 18927589 Plan: 1patient presented to hospital with weakness mental status changes which is likely multifactorial questionably metabolic at the patient not running any fever did not have any elevated white count patient abdominal was soft and examination chest x-ray was negative patient apparently still making good amount of urine at the patient have a Roper catheter draining clear urine and did have positive UA underlying UTI last night but not entirely excluded as no other obvious focus of infection 2-blood culture growing staph epi that is oxacillin sensitive with a question of possible contamination versus related to permacatheter, blood cultures has been obtained from dialysis catheter and results will be followed 3-patient has shown clinical improvement and will continue with the cefepime while waiting for the culture to finalize Dictation was produced using [employer] dictation software. please excuse any grammatical, word or spelling errors. Time with Patient: Less than 30
--- NOTE | 2023-04-18 20:57 | P.PN ---
Subjective Progress Note Date: 04/18/23 Principal diagnosis: Possible UTI and positive blood culture Patient is a 67-year-old female with a past medical history significant for end-stage renal disease maintained on dialysis Saturday through the [facility] , has been sent to the ER for evaluation of mental status changes weakness and decreased level of responsiveness did have a positive UA, blood cultures not coming back positive with staph epi On today's evaluation that is 04/18/2023, the patient continues to be afebrile, the patient is breathing comfortably on room air, the patient denies any chest pain or cough, patient denies abdominal pain, and denies any nausea/vomiting or diarrhea , pt seems to be slightly confused Patient white count of 12.6, creatinine 6.43, blood culture with staph epi Objective - Vital Signs Vital signs: Vital Signs Temp 98.4 F 04/18/23 07:29 Pulse 80 04/18/23 07:29 Resp 15 04/18/23 07:29 BP 186/82 04/18/23 07:29 Pulse Ox 98 04/18/23 07:29 FiO2 Intake & Output 04/17/23 04/18/23 04/18/23 18:59 06:59 18:59 Other: Voiding Method Diaper Diaper Diaper # Voids 0 1 # Bowel Movements 1 - Exam GENERAL DESCRIPTION: An elderly female lying in bed in no distress RESPIRATORY SYSTEM: Unlabored breathing , clear to auscultation anteriorly HEART: S1 S2 regular rate and rhythm , ABDOMEN: Soft , no tenderness EXTREMITIES: No edema feet - Labs CBC & Chem 7: 04/18/23 07:05 04/18/23 07:05 Labs: Abnormal Lab Results - Last 24 Hours (Table) 04/17/23 04/17/23 04/17/23 Range/Units 11:21 16:29 20:19 WBC (3.8-10.6) k/uL Plt Count (150-450) k/uL Neutrophils # (1.3-7.7) k/uL Sodium (137-145) mmol/L Carbon Dioxide (22-30) mmol/L BUN (7-17) mg/dL Creatinine (0.52-1.04) mg/dL POC Glucose (mg/dL) 112 H 138 H 118 H (70-110) mg/dL 04/18/23 04/18/23 Range/Units 07:05 07:05 WBC 12.6 H (3.8-10.6) k/uL Plt Count 113 L (150-450) k/uL Neutrophils # 8.2 H (1.3-7.7) k/uL Sodium 134 L (137-145) mmol/L Carbon Dioxide 17 L (22-30) mmol/L BUN 52 H (7-17) mg/dL Creatinine 6.43 H (0.52-1.04) mg/dL POC Glucose (mg/dL) (70-110) mg/dL Microbiology - Last 24 Hours (Table) 04/14/23 12:19 Blood Culture - Preliminary Blood 04/16/23 12:30 Blood Culture - Preliminary Blood 04/14/23 12:19 Blood Culture Gram Stain - Preliminary Blood Blood Culture - Preliminary Coagulase Negative Staph Assessment and Plan (1) Positive blood culture Current Visit: Yes Status: Acute Code(s): R78.81 - BACTEREMIA SNOMED Code(s): 516932272 (2) UTI (urinary tract infection) Current Visit: Yes Status: Acute Code(s): N39.0 - URINARY TRACT INFECTION, SITE NOT SPECIFIED SNOMED Code(s): 16897473 Plan: 1patient presented to hospital with weakness mental status changes which is likely multifactorial questionably metabolic at the patient not running any fever did not have any elevated white count patient abdominal was soft and examination chest x-ray was negative patient apparently still making good amount of urine at the patient have a Roper catheter draining clear urine and did have positive UA underlying UTI last night but not entirely excluded as no other obvious focus of infection 2-blood culture growing staph epi that is oxacillin sensitive with a question of possible contamination versus related to permacatheter, blood cultures has been obtained from dialysis catheter and results are pending 3-patient will continue with the cefepime , [facility] a, can be transitioned to a short course of ceftin Dictation was produced using [employer] dictation software. please excuse any grammatical, word or spelling errors. Time with Patient: Less than 30
[2023-04-18] MEDS: ATORVASTATIN 40 MG TAB PO SCH (21:19)
[2023-04-18] MEDS: MONTELUKAST 10 MG TAB PO SCH (21:19)
[2023-04-19] MEDS: INSULIN DETEMIR (LEVEMIR) 100 UNIT/ML SYR SQ SCH ×2 (01:03→21:00)
[2023-04-19] MEDS ORDERED: DEXTROSE 50% SYRINGE 50 ML IVP ONE (06:59)
[2023-04-19] MEDS ORDERED: GLUCAGON 1 MG/ML VIAL ONE (07:02)
[2023-04-19] MEDS ORDERED: GLUCAGON 1 MG/ML VIAL SQ STA (07:03)
[2023-04-19 07:12] LABS: Glucose,Whole Blood 52 mg/dL (70-110)
[2023-04-19 07:22] LABS: Glucose,Whole Blood 75 mg/dL (70-110)
[2023-04-19] MEDS: IPRATROPIUM-ALBUTEROL 3 ML NEB INHALATION SCH ×4 (08:49→20:47)
[2023-04-19] MEDS: CALCIUM ACETATE 667 MG TAB PO SCH ×5 (09:09→20:59)
[2023-04-19] MEDS: SENNOSIDES-DOCUSATE SODIUM 1 EACH TAB PO SCH (09:10)
[2023-04-19] MEDS: carvediloL 12.5 MG TAB PO SCH ×4 (09:10→19:31)
[2023-04-19] MEDS: ISOSORBIDE MONONITRATE ER 30 MG TAB.ER.24H PO SCH ×3 (09:10→19:31)
[2023-04-19] MEDS: LEVOTHYROXINE 88 MCG TAB PO SCH (09:10)
[2023-04-19] MEDS: allopurinoL 100 MG TAB PO SCH (09:10)
[2023-04-19] MEDS: BACLOFEN 10 MG TAB PO SCH ×4 (09:11→19:29)
[2023-04-19] MEDS: methylPREDNISolone 4 MG TAB TAPER PO SCH (09:11)
[2023-04-19] MEDS: GABAPENTIN 100 MG CAP PO SCH (09:11)
[2023-04-19] MEDS: FUROSEMIDE 20 MG TAB PO SCH ×3 (09:11→19:31)
[2023-04-19] MEDS: CLOPIDOGREL 75 MG TAB PO SCH (09:11)
--- NOTE | 2023-04-19 10:26 | P.PN ---
Subjective Patient is seen in follow-up for end-stage renal disease. Is maintained on hemodialysis on Saturday schedule. Resting in bed. Confused. Hemodynamically stable. Vital signs are stable. General: No acute distress. HEENT: Head exam is unremarkable. LUNGS: No audible rhonchi or wheezes. HEART: Rate and Rhythm are regular. ABDOMEN: Nontender. EXTREMITITES: No edema. Objective - Vital Signs Vital signs: Vital Signs Temp 97 F L 04/18/23 13:28 Pulse 77 04/19/23 09:24 Resp 18 04/19/23 09:24 BP 142/78 04/19/23 09:24 Pulse Ox 98 04/18/23 07:29 FiO2 Intake & Output 04/18/23 04/19/23 04/19/23 18:59 06:59 18:59 Intake Total 800 Output Total 1818 Balance -1018 Intake: Hemodialysis 800 Output: Hemodialysis 1818 Other: Voiding Method Diaper Diaper # Voids 0 1 # Bowel Movements 1 - Labs CBC & Chem 7: 04/18/23 07:05 04/18/23 07:05 Labs: Abnormal Lab Results - Last 24 Hours (Table) 04/19/23 Range/Units 06:50 POC Glucose (mg/dL) 52 L (70-110) mg/dL Microbiology - Last 24 Hours (Table) 04/16/23 12:30 Blood Culture - Preliminary Blood 04/14/23 12:19 Blood Culture Gram Stain - Final Blood Blood Culture - Final Coagulase Negative Staph Assessment and Plan Plan: Assessment: 1. End-stage renal disease maintained on hemodialysis on Saturday schedule. 2. E. coli UTI on antibiotics. 3. Coag-negative staph bacteremia with concern for permacath infection versus contamination. ID following. Repeat cultures have been negative. 4. Chronic kidney disease mineral bone disease maintained on PhosLo. 5. Hypertension with chronic disease. Stable. 6. Diabetes mellitus. Plan: Hemodialysis tomorrow. Follow-up cultures. Will need to discontinue permacath if cultures turn positive.
[2023-04-19 11:05] LABS: Basophils # (A) 0.03 X 10*3/uL (0.00-0.10); Basophils % (A) 0.2 %; Eosinophils # (A) 0.16 X 10*3/uL (0.04-0.35); HCT 38.6 % (37.2-46.3); HGB 12.5 d/dL (12.0-15.0); Lymphocytes # (A) 3.75 X 10*3/uL (0.90-5.00); MCH 31.3 pg (27.0-32.0); MCHC 32.4 d/dL (32.0-37.0); MCV 96.5 FL (80.0-97.0); Mean Platelet Volume 11.1 FL (9.5-12.2); Monocytes # (A) 1.12 X 10*3/uL (0.20-1.00); Monocytes % (A) 6.9 %; NRBC Per 100 WBC 0 X 10*3/uL (0.00-0.01); Neutrophils % (A) 68.5 %; Platelet Count 163 X 10*3/uL (140-440); RDW 13.2 % (11.5-14.5); WBC 16.32 X 10*3/uL (4.50-10.00)
[2023-04-19 11:24] LABS: Magnesium 2.1 mg/dL (1.5-2.4)
[2023-04-19] MEDS: VITAMIN E TOPICAL SCH ×2 (11:25→17:49)
[2023-04-19 11:29] LABS: Glucose,Whole Blood 105 mg/dL (70-110)
[2023-04-19 12:01] LABS: BUN/Creat Ratio 6.87 Ratio (12.00-20.00); Blood Urea Nitrogen 32.3 mg/dL (9.0-27.0); Calcium 9.5 mg/dL (8.7-10.3); Carbon Dioxide 29.9 mmol/L (21.6-31.8); Chloride 101 mmol/L (96-109); Glucose 56 mg/dL (70-110); Potassium 4.1 mmol/L (3.5-5.5); Sodium 137 mmol/L (135-145)
--- NOTE | 2023-04-19 13:15 | P.PN ---
Subjective This is a 67 rolled female who was recently admitted for [facility] with altered mental status with concerns of possible acute urinary tract infection. Culture showing E. coli with some sensitivities and repeat blood cultures have been ordered and pending including cultures from the dialysis catheter tip with concerns for infection coming from the source. Infectious disease is following and patient is maintained on IV antibiotics and awaiting finalized cultures. Patient's mentation continues to be somewhat confused although is slightly improved. Patient maintained on hemodialysis with nephrology following closely. Patient follows with nephrology outpatient and is maintained on dialysis Saturday/Saturday/Saturday. Patient is currently afebrile with no reported chest pain or shortness of breath. Patient is tolerating diet and has been selective on taking scheduled medications. 04/19/2023 Patient can tell she is in the hospital but she looks confused about her illness. She was refusing taking her medication today. She was a little bit agitated and sharp and at times. Sometimes she answers unrelated to the question, for example she starts talking about her son doing the in [place] when she was asked about medical questions. She looks comfortable lying in bed. Lethargic. She denies any other complaints. No suprapubic tenderness. The right upper chest with no surrounding cellulitis. Graft of the left upper extremity looks healing. Repeat blood culture is pending while she remains on cefepime for E. coli UTI and positive blood culture with coagulase negative staph which could be contamination versus line infection Objective - Vital Signs Vital signs: Vital Signs Temp 97 F L 04/18/23 13:28 Pulse 64 04/19/23 11:47 Resp 18 04/19/23 09:24 BP 142/78 04/19/23 09:24 Pulse Ox 98 04/18/23 07:29 FiO2 Intake & Output 04/18/23 04/19/23 04/19/23 18:59 06:59 18:59 Intake Total 800 Output Total 1818 Balance -1018 Intake: Hemodialysis 800 Output: Hemodialysis 1818 Other: Voiding Method Diaper Diaper # Voids 0 1 # Bowel Movements 1 1 - Exam -GENERAL: The patient is alert and oriented x2-3,confused, not in any acute distress. Well developed, well nourished. HEENT: Pupils are round and equally reacting to light. EOMI. No scleral icterus. No conjunctival pallor. Normocephalic, atraumatic. No pharyngeal erythema. No thyromegaly. CARDIOVASCULAR: S1 and S2 present. No murmurs, rubs, or gallops. -PULMONARY: Chest is clear to auscultation, no wheezing , no crackles. right upper chest permacath in place ABDOMEN: Soft, nontender, nondistended, normoactive bowel sounds. No palpable organomegaly. MUSCULOSKELETAL: No joint swelling or deformity. EXTREMITIES: No cyanosis, clubbing, or pedal edema. NEUROLOGICAL: Gross neurological examination did not reveal any focal deficits. SKIN: No rashes. no petechiae. - Labs CBC & Chem 7: 04/19/23 07:07 04/19/23 07:07 Labs: Abnormal Lab Results - Last 24 Hours (Table) 04/19/23 04/19/23 04/19/23 Range/Units 06:50 07:07 07:07 WBC 16.32 H (4.50-10.00) X 10*3/uL RBC 4.00 L (4.10-5.20) X 10*6/uL Neutrophils # 11.20 H (1.80-7.70) X 10*3/uL Monocytes # 1.12 H (0.20-1.00) X 10*3/uL BUN 32.3 H (9.0-27.0) mg/dL Creatinine 4.7 H (0.6-1.5) mg/dL Est GFR (CKD-EPI) 10 L (>=60) BUN/Creatinine Ratio 6.87 L (12.00-20.00) Ratio Glucose 56 L (70-110) mg/dL POC Glucose (mg/dL) 52 L (70-110) mg/dL Microbiology - Last 24 Hours (Table) 04/16/23 12:30 Blood Culture - Preliminary Blood 04/14/23 12:19 Blood Culture Gram Stain - Final Blood Blood Culture - Final Coagulase Negative Staph Assessment and Plan Assessment: Change in mental status, acute urinary tract infection with features of sepsis, present on admission. Cultures showing E. coli Concerns for possible dialysis catheter infection, cultures currently pending ESRD, maintained on hemodialysis Diabetes mellitus2, insulin-dependent History of asthma, not an exacerbation Obesity with a BMI 37.1 History of CHF with diastolic dysfunction, not an exacerbation, most recent EF is 50-55% History of coronary artery disease History of CVA/TIA Hyperlipidemia History of hypertension History of rheumatoid arthritis History of pulmonary embolism History of anxiety/depression Plan: Patient is maintained on IV antibiotics in the form of cefepime with infectious disease following awaiting finalized cultures including blood cultures from a d ialysis catheter. Urine cultures finalized showing E. coli with sensitivities Awaiting finalized cultures with replete blood cultures ordered and pending from today from dialysis catheter with concerns of right chest wall port catheter infection. Per nursing staff patient has been refusing some of her medications Continue with Accu-Cheks before meals and at bedtime and continue sliding scale home medications reviewed and resumed as appropriate Mentation not quite back to baseline. Continue with frequent reorientation and blinds and shades open during the day Plan is to return to [facility] once stabilized and finalized cultures have been resulted Due to multiple complex medical issues, start small dose of eliquis , if symptoms persists may consider consultation DVT prophylaxis: Aspirin and Plavix GI prophylaxis: Pepcid prognosis is guarded
[2023-04-19 13:38] VITALS: BMI 37.0
[2023-04-19] MEDS: QUEtiapine 25 MG TAB PO SCH (13:48)
[2023-04-19] MEDS ORDERED: VANCOMYCIN IV PER PHARMACY 1 EACH MISC MISCELLANE PRN (15:06)
--- NOTE | 2023-04-19 15:07 | P.PN ---
Subjective Progress Note Date: 04/19/23 Principal diagnosis: Possible UTI and positive blood culture Patient is a 67-year-old female with a past medical history significant for end-stage renal disease maintained on dialysis Saturday through the [facility] , has been sent to the ER for evaluation of mental status changes weakness and decreased level of responsiveness did have a positive UA, blood cultures not coming back positive with staph epi On today's evaluation that is 04/19/2023, the patient denies any fever or any chills, the patient is breathing comfortably on room air and no need for supplemental oxygen, the patient denies any chest pain or cough, patient denies any nausea/vomiting or diarrhea and no abdominal pain, patient remains to be unpleasantly confused Patient white count is up to 16.32, creatinine is 4.7, blood culture with staph epi Objective - Vital Signs Vital signs: Vital Signs Temp 97 F L 04/18/23 13:28 Pulse 77 04/19/23 09:24 Resp 18 04/19/23 09:24 BP 142/78 04/19/23 09:24 Pulse Ox 98 04/18/23 07:29 FiO2 Intake & Output 04/18/23 04/19/23 04/19/23 18:59 06:59 18:59 Intake Total 800 Output Total 1818 Balance -1018 Intake: Hemodialysis 800 Output: Hemodialysis 1818 Other: Voiding Method Diaper Diaper # Voids 0 1 # Bowel Movements 1 - Exam GENERAL DESCRIPTION: An elderly female lying in bed in no distress RESPIRATORY SYSTEM: Unlabored breathing , clear to auscultation anteriorly HEART: S1 S2 regular rate and rhythm , ABDOMEN: Soft , no tenderness EXTREMITIES: No edema feet - Labs CBC & Chem 7: 04/19/23 07:07 04/19/23 07:07 Labs: Abnormal Lab Results - Last 24 Hours (Table) 04/19/23 Range/Units 06:50 POC Glucose (mg/dL) 52 L (70-110) mg/dL Microbiology - Last 24 Hours (Table) 04/16/23 12:30 Blood Culture - Preliminary Blood 04/14/23 12:19 Blood Culture Gram Stain - Final Blood Blood Culture - Final Coagulase Negative Staph Assessment and Plan (1) Positive blood culture Current Visit: Yes Status: Acute Code(s): R78.81 - BACTEREMIA SNOMED Code(s): 336019570 (2) UTI (urinary tract infection) Current Visit: Yes Status: Acute Code(s): N39.0 - URINARY TRACT INFECTION, SITE NOT SPECIFIED SNOMED Code(s): 29799504 Plan: 1patient presented to hospital with weakness mental status changes which is likely multifactorial questionably metabolic at the patient not running any fever did not have any elevated white count patient abdominal was soft and examination chest x-ray was negative patient apparently still making good amount of urine at the patient have a Roper catheter draining clear urine and did have positive UA underlying UTI last night but not entirely excluded as no other obvious focus of infection 2-blood culture growing staph epi that is oxacillin sensitive with a question of possible contamination versus related to permacatheter, blood cultures has been obtained from dialysis catheter and results are pending 3-patient did have slight worsening of the white count cultures has been repeated you and add vancomycin and a repeat a CBC with a.m. lab Dictation was produced using [employer] dictation software. please excuse any grammatical, word or spelling errors. Time with Patient: Less than 30
[2023-04-19] MEDS ORDERED: VANCOMYCIN 1,750 MG in SODIUM CHLORIDE 0.9% 500 ML 500 ML IVPB ONE (15:30)
[2023-04-19 16:56] LABS: Glucose,Whole Blood 248 mg/dL (70-110)
[2023-04-19] MEDS: ASPIRIN 81 MG PO SCH ×2 (17:47→19:31)
[2023-04-19] MEDS: SODIUM CHLORIDE 0.9% 1,000 ML IV SCH (17:47)
[2023-04-19] MEDS: CHOLECALCIFEROL 25 MCG (1000 IU) TABLET PO SCH ×2 (17:47→19:31)
[2023-04-19] MEDS: FOLIC ACID-VIT B COMPLEX-VIT C 1 CAP PO SCH ×2 (17:49→19:31)
[2023-04-19] MEDS: CEFEPIME 1 GM in SODIUM CHLORIDE 0.9% 50 ML IVPB SCH ×2 (19:26→22:28)
[2023-04-19 20:53] LABS: Glucose,Whole Blood 159 mg/dL (70-110)
[2023-04-19] MEDS: ATORVASTATIN 40 MG TAB PO SCH (20:59)
[2023-04-19] MEDS: MONTELUKAST 10 MG TAB PO SCH (20:59)
[2023-04-20 05:58] LABS: Glucose,Whole Blood 80 mg/dL (70-110)
[2023-04-20] MEDS: CALCIUM ACETATE 667 MG TAB PO SCH ×4 (06:39→22:37)
[2023-04-20] MEDS: IPRATROPIUM-ALBUTEROL 3 ML NEB INHALATION SCH ×5 (07:51→20:23)
[2023-04-20 10:14] LABS: Basophils # (A) 0.01 X 10*3/uL (0.00-0.10); Basophils % (A) 0.1 %; Eosinophils # (A) 0.15 X 10*3/uL (0.04-0.35); Eosinophils % (A) 1.3 %; HCT 36.5 % (37.2-46.3); HGB 11.9 d/dL (12.0-15.0); Lymphocytes % (A) 30.2 %; MCH 31.7 pg (27.0-32.0); MCHC 32.6 d/dL (32.0-37.0); MCV 97.3 FL (80.0-97.0); Mean Platelet Volume 11.7 FL (9.5-12.2); Monocytes # (A) 1.03 X 10*3/uL (0.20-1.00); Monocytes % (A) 8.9 %; NRBC Per 100 WBC 0 X 10*3/uL (0.00-0.01); Neutrophils # (A) 6.87 X 10*3/uL (1.80-7.70); Neutrophils % (A) 59.2 %; Platelet Count 135 X 10*3/uL (140-440); RBC 3.75 X 10*6/uL (4.10-5.20); RDW 13.5 % (11.5-14.5)
[2023-04-20] MEDS ORDERED: VANCOMYCIN 1,750 MG in SODIUM CHLORIDE 0.9% 500 ML 500 ML IVPB ONE (12:00)
[2023-04-20 12:11] LABS: Glucose,Whole Blood 70 mg/dL (70-110)
[2023-04-20] MEDS: QUEtiapine 25 MG TAB PO SCH (12:25)
[2023-04-20] MEDS: ISOSORBIDE MONONITRATE ER 30 MG TAB.ER.24H PO SCH ×2 (12:27→18:25)
[2023-04-20] MEDS: allopurinoL 100 MG TAB PO SCH (12:27)
[2023-04-20] MEDS: CLOPIDOGREL 75 MG TAB PO SCH (12:27)
[2023-04-20] MEDS: LEVOTHYROXINE 88 MCG TAB PO SCH (12:27)
[2023-04-20] MEDS: FUROSEMIDE 20 MG TAB PO SCH ×2 (12:27→18:24)
[2023-04-20] MEDS: BACLOFEN 10 MG TAB PO SCH ×3 (12:27→18:40)
[2023-04-20] MEDS: GABAPENTIN 100 MG CAP PO SCH (12:27)
[2023-04-20] MEDS: VITAMIN E TOPICAL SCH ×2 (12:28→18:25)
[2023-04-20] MEDS: FAMOTIDINE 20 MG/2 ML VIAL IV SCH (12:28)
[2023-04-20] MEDS: methylPREDNISolone 4 MG TAB TAPER PO SCH (12:28)
--- NOTE | 2023-04-20 12:46 | P.PN ---
Subjective This is a 67 rolled female who was recently admitted for [facility] with altered mental status with concerns of possible acute urinary tract infection. Culture showing E. coli with some sensitivities and repeat blood cultures have been ordered and pending including cultures from the dialysis catheter tip with concerns for infection coming from the source. Infectious disease is following and patient is maintained on IV antibiotics and awaiting finalized cultures. Patient's mentation continues to be somewhat confused although is slightly improved. Patient maintained on hemodialysis with nephrology following closely. Patient follows with nephrology outpatient and is maintained on dialysis Saturday/Saturday/Saturday. Patient is currently afebrile with no reported chest pain or shortness of breath. Patient is tolerating diet and has been selective on taking scheduled medications. 04/19/2023 Patient can tell she is in the hospital but she looks confused about her illness. She was refusing taking her medication today. She was a little bit agitated and sharp and at times. Sometimes she answers unrelated to the question, for example she starts talking about her son doing the in [place] when she was asked about medical questions. She looks comfortable lying in bed. Lethargic. She denies any other complaints. No suprapubic tenderness. The right upper chest with no surrounding cellulitis. Graft of the left upper extremity looks healing. Repeat blood culture is pending while she remains on cefepime for E. coli UTI and positive blood culture with coagulase negative staph which could be contamination versus line infection 04/20/2023 Patient is more confused and drowsy today. As per staff this happened after she took Seroquel yesterday when she was more agitated and choking. Patient To verbal stimuli is helping go back to sleep. Patient is getting hemodialysis today. She is afebrile. Leukocytosis improving down to 11.6. Since yesterday she was covered with cefepime and vancomycin. Repeat CT of the brain is ordered Also going to consult neurologist for further recommendation. Repeat blood culture is still pending to check on her staff infection in the blood versus contamination. This patient is not eating because of her confusion would lower her insulin from 20 units at bedtime down to 5 units with insulin sliding scale to prevent hypoglycemia. Her glucose since yesterday morning was as low as 70 and going up to 248. We'll keep monitoring her closely Objective - Vital Signs Vital signs: Vital Signs Temp 97.8 F 04/20/23 07:45 Pulse 65 04/20/23 07:59 Resp 19 04/20/23 07:45 BP 136/78 04/20/23 07:45 Pulse Ox 98 04/20/23 07:45 FiO2 21 04/20/23 04:00 Intake & Output 04/19/23 04/20/23 04/20/23 18:59 06:59 18:59 Intake Total 290 Balance 290 Weight 110.586 kg Intake: Intake, IV Titration 290 Amount Cefepime 1 gm In Sodium 50 Chloride 0.9% 50 ml @ 12. 5 mls/hr IVPB Q24HR@2100 KUNAL Rx#:[id number] Sodium Chloride 0.9% 1, 240 000 ml @ 20 mls/hr IV . Q24H KUNAL Rx#:[id number] Other: # Voids 1 # Bowel Movements 2 1 - Exam -GENERAL: The patient is alert and oriented x2-3,confused, not in any acute distress. Well developed, well nourished. HEENT: Pupils are round and equally reacting to light. EOMI. No scleral icterus. No conjunctival pallor. Normocephalic, atraumatic. No pharyngeal erythema. No thyromegaly. CARDIOVASCULAR: S1 and S2 present. No murmurs, rubs, or gallops. -PULMONARY: Chest is clear to auscultation, no wheezing , no crackles. right upper chest permacath in place ABDOMEN: Soft, nontender, nondistended, normoactive bowel sounds. No palpable organomegaly. MUSCULOSKELETAL: No joint swelling or deformity. EXTREMITIES: No cyanosis, clubbing, or pedal edema. NEUROLOGICAL: Gross neurological examination did not reveal any focal deficits. SKIN: No rashes. no petechiae. - Labs CBC & Chem 7: 04/20/23 04:47 04/19/23 07:07 Labs: Abnormal Lab Results - Last 24 Hours (Table) 04/19/23 04/19/23 04/20/23 Range/Units 16:54 20:52 04:47 WBC 11.60 H (4.50-10.00) X 10*3/uL RBC 3.75 L (4.10-5.20) X 10*6/uL Hgb 11.9 L (12.0-15.0) d/dL Hct 36.5 L (37.2-46.3) % MCV 97.3 H (80.0-97.0) FL Plt Count 135 L (140-440) X 10*3/uL Monocytes # 1.03 H (0.20-1.00) X 10*3/uL POC Glucose (mg/dL) 248 H 159 H (70-110) mg/dL C-Reactive Protein (0.00-0.80) mg/dL 04/20/23 Range/Units 04:47 WBC (4.50-10.00) X 10*3/uL RBC (4.10-5.20) X 10*6/uL Hgb (12.0-15.0) d/dL Hct (37.2-46.3) % MCV (80.0-97.0) FL Plt Count (140-440) X 10*3/uL Monocytes # (0.20-1.00) X 10*3/uL POC Glucose (mg/dL) (70-110) mg/dL C-Reactive Protein 1.30 H (0.00-0.80) mg/dL Microbiology - Last 24 Hours (Table) 04/14/23 12:19 Blood Culture - Final Blood 04/18/23 10:20 Blood Culture - Preliminary Blood 04/16/23 12:30 Blood Culture - Preliminary Blood Assessment and Plan Assessment: Change in mental status, acute urinary tract infection, uremia, sepsis, acute urinary tract infection with features of sepsis, present on admission. Cultures showing E. coli Concerns for possible dialysis catheter infection, cultures currently pending ESRD, maintained on hemodialysis Diabetes mellitus2, insulin-dependent History of asthma, not an exacerbation Obesity with a BMI 37.1 History of CHF with diastolic dysfunction, not an exacerbation, most recent EF is 50-55% History of coronary artery disease History of CVA/TIA Hyperlipidemia History of hypertension History of rheumatoid arthritis History of pulmonary embolism History of anxiety/depression Plan: Patient is maintained on IV antibiotics in the form of cefepime and IV vancomycin with infectious disease following awaiting finalized cultures including blood cultures from a dialysis catheter. Urine cultures finalized showing E. coli with sensitivities Awaiting finalized cultures with replete blood cultures ordered and pending from today from dialysis catheter with concerns of right chest wall port catheter infection. Neurology consult Per nursing staff patient has been refusing some of her medications Continue with Accu-Cheks before meals and at bedtime and continue sliding scale home medications reviewed and resumed as appropriate Mentation not quite back to baseline. Continue with frequent reorientation and blinds and shades open during the day Plan is to return to [facility] once stabilized and finalized cultures have been resulted Due to multiple complex medical issues, start small dose of eliquis , if symptoms persists may consider consultation DVT prophylaxis: Aspirin and Plavix GI prophylaxis: Pepcid prognosis is guarded
--- NOTE | 2023-04-20 13:45 | P.PN ---
Subjective Progress Note Date: 04/20/23 Principal diagnosis: Possible UTI and positive blood culture Patient is a 67-year-old female with a past medical history significant for end-stage renal disease maintained on dialysis Saturday through the [facility] , has been sent to the ER for evaluation of mental status changes weakness and decreased level of responsiveness did have a positive UA, blood cultures not coming back positive with staph epi On today's evaluation that is 04/20/2023, the patient remains to be afebrile, the patient is breathing comfortably on room air patient apparently has received Seroquel and seemed to be sleepy this morning no vomiting or diarrhea has been reported Patient white count is down to 11.60, CRP is 1.30, blood culture with staph epi Objective - Vital Signs Vital signs: Vital Signs Temp 97.8 F 04/20/23 07:45 Pulse 65 04/20/23 07:59 Resp 19 04/20/23 07:45 BP 136/78 04/20/23 07:45 Pulse Ox 98 04/20/23 07:45 FiO2 21 04/20/23 04:00 Intake & Output 04/19/23 04/20/23 04/20/23 18:59 06:59 18:59 Intake Total 290 Balance 290 Weight 110.586 kg Intake: Intake, IV Titration 290 Amount Cefepime 1 gm In Sodium 50 Chloride 0.9% 50 ml @ 12. 5 mls/hr IVPB Q24HR@2100 [facility] Rx#:[id number] Sodium Chloride 0.9% 1, 240 000 ml @ 20 mls/hr IV . Q24H [facility] Rx#:[id number] Other: # Voids 1 # Bowel Movements 2 1 - Exam GENERAL DESCRIPTION: An elderly female lying in bed in no distress RESPIRATORY SYSTEM: Unlabored breathing , clear to auscultation anteriorly HEART: S1 S2 regular rate and rhythm , ABDOMEN: Soft , no tenderness EXTREMITIES: No edema feet - Labs CBC & Chem 7: 04/20/23 04:47 04/19/23 07:07 Labs: Abnormal Lab Results - Last 24 Hours (Table) 04/19/23 04/19/23 04/20/23 Range/Units 16:54 20:52 04:47 WBC 11.60 H (4.50-10.00) X 10*3/uL RBC 3.75 L (4.10-5.20) X 10*6/uL Hgb 11.9 L (12.0-15.0) d/dL Hct 36.5 L (37.2-46.3) % MCV 97.3 H (80.0-97.0) FL Plt Count 135 L (140-440) X 10*3/uL Monocytes # 1.03 H (0.20-1.00) X 10*3/uL POC Glucose (mg/dL) 248 H 159 H (70-110) mg/dL C-Reactive Protein (0.00-0.80) mg/dL 04/20/23 Range/Units 04:47 WBC (4.50-10.00) X 10*3/uL RBC (4.10-5.20) X 10*6/uL Hgb (12.0-15.0) d/dL Hct (37.2-46.3) % MCV (80.0-97.0) FL Plt Count (140-440) X 10*3/uL Monocytes # (0.20-1.00) X 10*3/uL POC Glucose (mg/dL) (70-110) mg/dL C-Reactive Protein 1.30 H (0.00-0.80) mg/dL Microbiology - Last 24 Hours (Table) 04/14/23 12:19 Blood Culture - Final Blood 04/18/23 10:20 Blood Culture - Preliminary Blood 04/16/23 12:30 Blood Culture - Preliminary Blood Assessment and Plan (1) Positive blood culture Current Visit: Yes Status: Acute Code(s): R78.81 - BACTEREMIA SNOMED Code(s): 087590696 (2) UTI (urinary tract infection) Current Visit: Yes Status: Acute Code(s): N39.0 - URINARY TRACT INFECTION, SITE NOT SPECIFIED SNOMED Code(s): 30407589 Plan: 1patient presented to hospital with weakness mental status changes which is likely multifactorial questionably metabolic at the patient not running any fever did not have any elevated white count patient abdominal was soft and examination chest x-ray was negative patient apparently still making good amount of urine at the patient have a Roper catheter draining clear urine and did have positive UA underlying UTI last night but not entirely excluded as no other obvious focus of infection 2-blood culture growing staph epi that is oxacillin sensitive with a question of possible contamination versus related to permacatheter, blood cultures has been obtained from dialysis catheter and results are pending 3-patient white count has improved with addition of vancomycin which will be continued and monitor clinical course closely Dictation was produced using [employer] dictation software. please excuse any grammatical, word or spelling errors. Time with Patient: Less than 30
--- NOTE | 2023-04-20 14:45 | CT ---
EXAMINATION TYPE: CT brain wo con DATE OF EXAM: 04/20/2023 COMPARISON: 04/14/2023 INDICATION: UTI, AMS DLP: 1102.4 mGycm, Automated exposure control for dose reduction was used. CONTRAST: None CT of the brain is performed utilizing 3 mm thick sections through the posterior fossa and 3 mm thick sections through the remaining calvarium. Study is not performed within 24 hours of arrival to the hospital. No abnormal hyperdensity is present to suggest an acute intracranial hemorrhage. No mass lesion is evident. No acute infarcts are evident. Mild periventricular white matter hypodensity may be present, likely o n the basis of chronic white matter ischemic changes. No significant interval change is evident. Ventricles and sulci are appropriate for the patient age. Paranasal sinuses and mastoid air cells within the [id number] are clear. IMPRESSION: 1. Minimal chronic-appearing white matter changes, stable from comparison. 2. No acute intracranial process. Follow-up MRI can be performed as clinically indicated
[2023-04-20] MEDS: SODIUM CHLORIDE 0.9% 1,000 ML IV SCH (15:10)
--- NOTE | 2023-04-20 15:46 | P.PN ---
Subjective Progress Note Date: 04/20/23 Follow-up for ESRD. Objective - Vital Signs Vital signs: Vital Signs Temp 98.4 F 04/20/23 13:35 Pulse 67 04/20/23 13:35 Resp 18 04/20/23 13:35 BP 151/72 04/20/23 13:35 Pulse Ox 97 04/20/23 13:35 FiO2 21 04/20/23 04:00 Intake & Output 04/19/23 04/20/23 04/20/23 18:59 06:59 18:59 Intake Total 290 Balance 290 Weight 110.586 kg Intake: Intake, IV Titration 290 Amount Cefepime 1 gm In Sodium 50 Chloride 0.9% 50 ml @ 12. 5 mls/hr IVPB Q24HR@2100 [facility] Rx#:[id number] Sodium Chloride 0.9% 1, 240 000 ml @ 20 mls/hr IV . Q24H [facility] Rx#:[id number] Other: # Voids 1 # Bowel Movements 2 1 - Exam No acute distress. S1-S2 heard Lungs clear No edema - Labs CBC & Chem 7: 04/20/23 04:47 04/19/23 07:07 Labs: Abnormal Lab Results - Last 24 Hours (Table) 04/19/23 04/19/23 04/20/23 Range/Units 16:54 20:52 04:47 WBC 11.60 H (4.50-10.00) X 10*3/uL RBC 3.75 L (4.10-5.20) X 10*6/uL Hgb 11.9 L (12.0-15.0) d/dL Hct 36.5 L (37.2-46.3) % MCV 97.3 H (80.0-97.0) FL Plt Count 135 L (140-440) X 10*3/uL Monocytes # 1.03 H (0.20-1.00) X 10*3/uL POC Glucose (mg/dL) 248 H 159 H (70-110) mg/dL C-Reactive Protein (0.00-0.80) mg/dL 04/20/23 Range/Units 04:47 WBC (4.50-10.00) X 10*3/uL RBC (4.10-5.20) X 10*6/uL Hgb (12.0-15.0) d/dL Hct (37.2-46.3) % MCV (80.0-97.0) FL Plt Count (140-440) X 10*3/uL Monocytes # (0.20-1.00) X 10*3/uL POC Glucose (mg/dL) (70-110) mg/dL C-Reactive Protein 1.30 H (0.00-0.80) mg/dL Microbiology - Last 24 Hours (Table) 04/14/23 12:19 Blood Culture - Final Blood 04/18/23 10:20 Blood Culture - Preliminary Blood 04/16/23 12:30 Blood Culture - Preliminary Blood Assessment and Plan Assessment: #1 ESRD, TTS schedule #2 E. coli UTI on antibiotics #3 staff negative bacteremia #4 hypertension with ESRD #5 anemia with ESRD Plan: #1 hemodialysis today, 2 L of UF. #2 ESRD medications #3 antibiotics as per ID
[2023-04-20 16:54] LABS: Glucose,Whole Blood 70 mg/dL (70-110)
[2023-04-20] MEDS: ASPIRIN 81 MG PO SCH (18:24)
[2023-04-20] MEDS: FOLIC ACID-VIT B COMPLEX-VIT C 1 CAP PO SCH (18:24)
[2023-04-20] MEDS: carvediloL 12.5 MG TAB PO SCH (18:25)
[2023-04-20] MEDS: CHOLECALCIFEROL 25 MCG (1000 IU) TABLET PO SCH (18:25)
[2023-04-20 20:31] LABS: Glucose,Whole Blood 164 mg/dL (70-110)
[2023-04-20] MEDS: CEFEPIME 1 GM in SODIUM CHLORIDE 0.9% 50 ML IVPB SCH (22:36)
[2023-04-20] MEDS: ATORVASTATIN 40 MG TAB PO SCH (22:37)
[2023-04-20] MEDS: MONTELUKAST 10 MG TAB PO SCH (22:37)
[2023-04-20] MEDS: INSULIN DETEMIR (LEVEMIR) 100 UNIT/ML SYR SQ SCH (22:37)
[2023-04-20] MEDS ORDERED: QUEtiapine 50 MG TAB PO STA (23:32)
[2023-04-21 06:17] LABS: Glucose,Whole Blood 110 mg/dL (70-110)
[2023-04-21] MEDS: CALCIUM ACETATE 667 MG TAB PO SCH ×4 (06:26→21:11)
[2023-04-21] MEDS: IPRATROPIUM-ALBUTEROL 3 ML NEB INHALATION SCH ×5 (08:00→21:15)
[2023-04-21] MEDS: FUROSEMIDE 20 MG TAB PO SCH ×2 (08:00→16:36)
[2023-04-21] MEDS: BACLOFEN 10 MG TAB PO SCH ×3 (08:00→16:36)
[2023-04-21] MEDS: GABAPENTIN 100 MG CAP PO SCH ×2 (08:00→21:11)
[2023-04-21] MEDS: QUEtiapine 25 MG TAB PO SCH (08:00)
[2023-04-21] MEDS: LEVOTHYROXINE 88 MCG TAB PO SCH (08:00)
[2023-04-21] MEDS: allopurinoL 100 MG TAB PO SCH (08:00)
[2023-04-21] MEDS: ISOSORBIDE MONONITRATE ER 30 MG TAB.ER.24H PO SCH ×2 (08:01→16:36)
[2023-04-21] MEDS: carvediloL 12.5 MG TAB PO SCH ×2 (08:01→16:36)
[2023-04-21] MEDS: CLOPIDOGREL 75 MG TAB PO SCH (08:01)
[2023-04-21] MEDS: FAMOTIDINE 20 MG/2 ML VIAL IV SCH (08:09)
[2023-04-21] MEDS: VITAMIN E TOPICAL SCH ×2 (08:09→16:37)
--- NOTE | 2023-04-21 10:46 | P.CNNES ---
History of Present Illness Consult date: 04/20/23 Requesting physician: José Miguel Pineda Reason for Consult: AMS History of Present Illness: Patient is a 67-year-old female with history of a end-stage renal disease, on hemodialysis, came to the hospital on 04/13/2023 with altered mental status. Patient was diagnosed with acute UTI and started on antibiotics. Her mentation slightly improved. However she later became more confused, agitated. Patient was given Seroquel 12.5 mg at 3 PM, and then she fell asleep. She is not waking up therefore neurology was consulted. Patient currently is being treated for UTI, with cefepime and vancomycin. Apparently patient has history of CVA in 2021. Patient is very confused, speaks out random phrases and words. Out of sleep she woke up and said "My mother went on these tiny little diet pills/carmels". She then said "my younger brother is very very ...", And then she stopped the middle of the sentence. She then said "can I leave here". She would frequently say "Oh man!", Per nursing report, patient would repeat on what was going on on the TV.. Patient says "I don't know what is going on". Patient states "my was very cuddly". Patient at times appears to be in pain, complaining of arthritis then she said something about her . Patient has significant tight of ideas, intentional thought. She talks random stuff. Patient's blood test shows the babies 11.6, hemoglobin 11.9, platelets 135. P T/PTT is normal, D ABG with pH 7.44, pCO2 44. Electrolytes are normal. BUN 32, creatinine 4.7. Hemoglobin A1c 7.8 on 08/07/2022. AST is 48, with normal ALT 20. Cholesterol 120, LDL 57, HDL 28 and triglycerides 140 on 11/30/2022. Patient's B12 is 575 on 11/22/2022, methylmalonic acid is at 1.07, which is elevated. Folate is > 20 TSH was abnormal 0.064 with elevated free T4 at 2.98 on 11/22/2022. CT head performed today revealed minimal chronic-appearing white matter changes, stable from comparison. No acute intracranial process. I personally reviewed CT and agree with the findings. Review of Systems ROS unobtainable: due to mental status Ears, nose, mouth and throat: Reports headache Past Medical History Past Medical History: Asthma, Coronary Artery Disease (CAD), Cancer, Heart Failure, COPD, CVA/TIA, Diabetes Mellitus, GI Bleed, Hyperlipidemia, Hypertension, Myocardial Infarction (GA), Osteoarthritis (OA), Pulmonary Embolus (PE), Renal Disease, Rheumatoid Arthritis (RA), Sleep Apnea/CPAP/BIPAP, Syncope, Thyroid Disorder Additional Past Medical History / Comment(s): mild CVA 2021-left sided weaker,speech-slight difficulty with word recall,has some STM loss, Covid infection Mar 2022,uses bipap, peripheral neuropathy bilateral hands/feet, CKD , UTIs, legally blind bilaterally-sees minimally, thyroid cancer with surgery-no radiation or chemo, goiter, hashimotos, diverticular disease, 2013 upper and lower GI bleeds with blood loss anemia, gout, R humeral fracture with surgery., hx falls-able to stand and pivot for transfers-ambulates with rolling walker and assist., hx left ankle fxs., Hemodialysis // at [facility] in [place]., pt has RT chest port. , left forearm fistula., friend Shirley states patient can stand to transfer but uses wheelchair mostly, November Admission 2022 for [facility]-malfunctioning dialysis catheter. Last Myocardial Infarction Date:: 2009 History of Any Multi-Drug Resistant Organisms: VRE Date of last positivie culture/infection: 01/17/22 MDRO Source:: Urine Past Surgical History: Adenoidectomy, Back Surgery, Cholecystectomy, Heart Catheterization With Stent, Tonsillectomy Additional Past Surgical History / Comment(s): PCI with stent 2009 & 2018, low back surgery, total R shoulder and total R knee arthroplasties, bilateral hand trigger finger surgeries, EGD, colonoscopy, L eye laser eye surgery for bleed, thyroidectomy(2 surgeries total to remove all of thyroid).lt tib fib fx-plate and screws. lt arm Dialysis fistula,heart stents x2,heart cath x2 Past Anesthesia/Blood Transfusion Reactions: No Reported Reaction, Motion Sickness Additional Past Anesthesia/Blood Transfusion Reaction / Comment(s): no hx blood transfusion Date of Last Stent Placement:: 2009,2018 Past Psychological History: Anxiety, Depression Additional Psychological History / Comment(s): . Smoking Status: Never smoker Past Alcohol Use History: None Reported Past Drug Use History: None Reported - Past Family History Mother Family Medical History: Asthma, CVA/TIA, Seizure Disorder Additional Family Medical History / Comment(s): epilepsy,pt states "mom had 21 strokes) Father Family Medical History: COPD, Diabetes Mellitus Additional Family Medical History / Comment(s): many heart problems Medications and Allergies Home Medications Medication Instructions Recorded Confirmed Type Levothyroxine Sodium [Synthroid] 175 mcg PO DAILY@0800 11/21/17 04/14/23 History Montelukast [Singulair] 10 mg PO HS 11/21/17 04/14/23 History Atorvastatin [Lipitor] 40 mg PO HS@2100 09/08/20 04/14/23 History Cholecalciferol [Vitamin D3 (25 50 mcg PO DAILY@1700 12/09/20 04/14/23 History Mcg = 1000 Iu)] Acetaminophen Tab [Tylenol] 650 mg PO Q4H PRN 11/04/21 04/14/23 History Aspirin EC [Ecotrin Low Dose] 81 mg PO DAILY@1700 11/04/21 04/14/23 History Clopidogrel [Plavix] 75 mg PO DAILY@0800 11/04/21 04/14/23 History DULoxetine HCL [Cymbalta] 60 mg PO DAILY@0800 02/08/22 04/14/23 History Insulin Degludec [Tresiba] 20 units SQ HS@2130 02/08/22 04/14/23 History Isosorbide Mononitrate ER [Imdur] 30 mg PO BID@0800,1700 02/08/22 04/14/23 History Ondansetron [Zofran] 4 mg PO BID PRN 02/08/22 04/14/23 History Calcium Acetate [PhosLo] 1,334 mg PO AC-TID 04/12/22 04/14/23 History Furosemide [Lasix] 60 mg PO BID@0800,1700 08/06/22 04/14/23 History carvediloL [Coreg] 12.5 mg PO SUMOWEFR@0800 08/06/22 04/14/23 History Ipratropium-Albuterol Nebulize 3 ml INHALATION RT-Q6H PRN 09/28/22 04/14/23 History [Duoneb 0.5 mg-3 mg/3 ml Soln] Loperamide [Imodium] 2 mg PO QID PRN 09/28/22 04/14/23 History allopurinoL [Zyloprim] 100 mg PO DAILY@0800 09/28/22 04/14/23 History Calcium Acetate [PhosLo] 667 mg PO HS 10/30/22 04/14/23 History Famotidine [Pepcid] 10 mg PO DAILY@0800 10/30/22 04/14/23 History Hydrocortisone Cream 1 applic TOPICAL BID PRN 10/30/22 04/14/23 History [Hydrocortisone 1% Cream] Interdry 10 1 applic TOPICAL BID@0800,2100 10/30/22 04/14/23 History Renal Multivitamin Formula Tab 1 tab PO DAILY@1700 10/30/22 04/14/23 History bisacodyL [Dulcolax] 10 mg RECTAL DAILY PRN 10/30/22 04/14/23 History carvediloL [Coreg] 12.5 mg PO DAILY@1700 10/30/22 04/14/23 History guaiFENesin SYRUP 100MG/5ML 200 mg PO Q4H PRN 10/30/22 04/14/23 History [Robitussin] Insulin Aspart [NovoLOG] See Protocol SQ ACHS 12/31/22 04/14/23 History Sennosides-Docusate Sodium 1 tab PO BID@0800,1700 12/31/22 04/14/23 History [Senokot-S] Liquacel 30 ml PO BID@0800,1700 04/05/23 04/14/23 History Vitamin E Cream 1 applic TOPICAL BID@0800,1700 04/05/23 04/14/23 History Gabapentin [Neurontin] 100 mg PO DAILY@0800 #2 cap 04/08/23 04/14/23 Rx Gabapentin [Neurontin] 200 mg PO HS #3 cap 04/08/23 04/14/23 Rx HYDROcodone/APAP 5-325MG [Gary 1 tab PO Q8H PRN #4 tab 04/08/23 04/14/23 Rx 5-325] Baclofen 5 mg PO TID@0800,1200,1700 04/14/23 04/14/23 History methylPREDNISolone [Medrol Dose See Taper PO DIRECTED 04/14/23 04/14/23 History Pack] Allergies Allergy/AdvReac Type Severity Reaction Status Date / Time No Known Allergies Allergy Verified 04/05/23 10:55 Physical Examination - Vital Signs Vital Signs: Vital Signs Temp Pulse Pulse Resp BP Pulse Ox FiO2 04/20/23 13:35 98.4 F 67 18 151/72 97 04/20/23 07:59 65 04/20/23 07:51 63 04/20/23 07:45 97.8 F 63 19 136/78 98 04/20/23 04:00 21 04/20/23 02:00 97.8 F 61 16 116/71 97 04/20/23 00:22 21 04/19/23 20:49 21 04/19/23 20:00 98.0 F 73 17 137/59 100 Intake and Output 04/20/23 04/20/23 04/20/23 06:59 14:59 22:59 Intake Total 290 Balance 290 Intake: Intake, IV Titration 290 Amount Cefepime 1 gm In Sodium 50 Chloride 0.9% 50 ml @ 12. 5 mls/hr IVPB Q24HR@2100 [facility] Rx#:[id number] Sodium Chloride 0.9% 1, 240 000 ml @ 20 mls/hr IV . Q24H [facility]AC[facility] Rx#:[id number] Other: # Bowel Movements 1 Patient is an elderly female, who was sleeping when I entered the room. Her facial expression does appear to be somewhat frustrated, as if in pain. Patient would not respond to calling her name. When I opened her eyes manually, she woke up, and said "very handsome man". She would then repeat about handsome, almost as if habitual. Speech and language functions are normal. Patient can name all objects presented very well. She repeats very well. No aphasia or dysarthria. Attention, concentration is significantly impaired and fund of knowledge is difficult to assess. On asking about problem with vision, patient suddenly said "beautiful long hair standing...", Pointing to the wall on her left side. On cranial nerve examination, pupils are equal, round and reacting to light, visual luna could not be tested. Extraocular muscles are intact with no nystagmus. Face is symmetric, tongue protrudes to the midline. Palatal elevation and sensation normal, hearing and shoulder shrug normal, facial sensation normal. Patient frequently would lift her head off the pillow, would see randomly around and then lays her head back and closes her eyes. She would frequently yell "oh man!" On muscle strength testing, there is no pronator drift. Patient would not cooperate with examination. It appears her biceps and triceps appears equal with fairly good resistance. She would not squeeze hands. She did help her and up with no drift. Patient would not cooperate with examination of the lower limbs. She didn't lift her legs off the bed briefly and equally. She does wiggle her feet. Patient would frequently closes her eyes, or sometimes brings her hands onto her eyes. Sometimes she would hold her hands extended forward with the back of the wrist touching each other. Deep tendon reflexes are symmetric and hypoactive and plantars are flat. Sensory to touch is equal. Patient did not cooperate well. Cerebellar function cannot be tested because of patient's noncooperation. Tone and bulk of muscles normal. Gait deferred.. On general examination, there is no carotid bruit or murmur, S1-S2 audible. C hest is clear on consultation. Abdomen is soft nontender. No organomegaly, bowel sounds present. Peripheral pulses are present. No peripheral edema. Results - Laboratory Findings CBC and BMP: 04/20/23 04:47 04/19/23 07:07 Abnormal Lab Findings: Abnormal Labs 04/14/23 04/14/23 04/14/23 12:19 12:19 12:19 WBC RBC Hgb Hct MCV 100.4 H Plt Count Neutrophils # Monocytes # VBG pH VBG HCO3 Sodium 135 L Chloride 94 L Carbon Dioxide Anion Gap BUN 49 H Creatinine 4.97 H Est GFR (CKD-EPI) BUN/Creatinine Ratio Glucose 244 H POC Glucose (mg/dL) Magnesium 2.6 H AST 48 H C-Reactive Protein Urine Appearance Turbid H Urine Protein 1+ H Urine Blood Small H Ur Leukocyte Esterase Large H Urine RBC 13 H Urine WBC >182 H Urine WBC Clumps Moderate H Ur Squamous Epith Cells 5 H Amorphous Sediment Occasional H Urine Bacteria Rare H 04/14/23 04/14/23 04/14/23 12:19 12:22 21:17 WBC RBC Hgb Hct MCV Plt Count Neutrophils # Monocytes # VBG pH 7.44 H VBG HCO3 30 H Sodium Chloride Carbon Dioxide Anion Gap BUN Creatinine Est GFR (CKD-EPI) BUN/Creatinine Ratio Glucose POC Glucose (mg/dL) 262 H 188 H Magnesium AST C-Reactive Protein Urine Appearance Urine Protein Urine Blood Ur Leukocyte Esterase Urine RBC Urine WBC Urine WBC Clumps Ur Squamous Epith Cells Amorphous Sediment Urine Bacteria 04/15/23 04/15/23 04/15/23 06:16 11:29 16:57 WBC RBC Hgb Hct MCV Plt Count Neutrophils # Monocytes # VBG pH VBG HCO3 Sodium Chloride Carbon Dioxide Anion Gap BUN Creatinine Est GFR (CKD-EPI) BUN/Creatinine Ratio Glucose POC Glucose (mg/dL) 144 H 138 H 155 H Magnesium AST C-Reactive Protein Urine Appearance Urine Protein Urine Blood Ur Leukocyte Esterase Urine RBC Urine WBC Urine WBC Clumps Ur Squamous Epith Cells Amorphous Sediment Urine Bacteria 04/15/23 04/16/23 04/16/23 20:28 05:48 07:02 WBC RBC 4.03 L Hgb Hct MCV Plt Count Neutrophils # Monocytes # VBG pH VBG HCO3 Sodium Chloride Carbon Dioxide Anion Gap BUN Creatinine Est GFR (CKD-EPI) BUN/Creatinine Ratio Glucose POC Glucose (mg/dL) 135 H 128 H Magnesium AST C-Reactive Protein Urine Appearance Urine Protein Urine Blood Ur Leukocyte Esterase Urine RBC Urine WBC Urine WBC Clumps Ur Squamous Epith Cells Amorphous Sediment Urine Bacteria 04/16/23 04/16/23 04/16/23 07:02 16:16 20:23 WBC RBC Hgb Hct MCV Plt Count Neutrophils # Monocytes # VBG pH VBG HCO3 Sodium Chloride Carbon Dioxide Anion Gap 13.00 H BUN 61.0 H Creatinine 6.5 H Est GFR (CKD-EPI) 7 L BUN/Creatinine Ratio 9.38 L Glucose 138 H POC Glucose (mg/dL) 126 H 121 H Magnesium AST C-Reactive Protein Urine Appearance Urine Protein Urine Blood Ur Leukocyte Esterase Urine RBC Urine WBC Urine WBC Clumps Ur Squamous Epith Cells Amorphous Sediment Urine Bacteria 04/17/23 04/17/23 04/17/23 11:21 16:29 20:19 WBC RBC Hgb Hct MCV Plt Count Neutrophils # Monocytes # VBG pH VBG HCO3 Sodium Chloride Carbon Dioxide Anion Gap BUN Creatinine Est GFR (CKD-EPI) BUN/Creatinine Ratio Glucose POC Glucose (mg/dL) 112 H 138 H 118 H Magnesium AST C-Reactive Protein Urine Appearance Urine Protein Urine Blood Ur Leukocyte Esterase Urine RBC Urine WBC Urine WBC Clumps Ur Squamous Epith Cells Amorphous Sediment Urine Bacteria 10/04/18/23 04/19/23 07:05 07:05 06:50 WBC 12.6 H RBC Hgb Hct MCV Plt Count 113 L Neutrophils # 8.2 H Monocytes # VBG pH VBG HCO3 Sodium 134 L Chloride Carbon Dioxide 17 L Anion Gap BUN 52 H Creatinine 6.43 H Est GFR (CKD-EPI) BUN/Creatinine Ratio Glucose POC Glucose (mg/dL) 52 L Magnesium AST C-Reactive Protein Urine Appearance Urine Protein Urine Blood Ur Leukocyte Esterase Urine RBC Urine WBC Urine WBC Clumps Ur Squamous Epith Cells Amorphous Sediment Urine Bacteria 04/19/23 04/19/23 04/19/23 07:07 07:07 16:54 WBC 16.32 H RBC 4.00 L Hgb Hct MCV Plt Count Neutrophils # 11.20 H Monocytes # 1.12 H VBG pH VBG HCO3 Sodium Chloride Carbon Dioxide Anion Gap BUN 32.3 H Creatinine 4.7 H Est GFR (CKD-EPI) 10 L BUN/Creatinine Ratio 6.87 L Glucose 56 L POC Glucose (mg/dL) 248 H Magnesium AST C-Reactive Protein Urine Appearance Urine Protein Urine Blood Ur Leukocyte Esterase Urine RBC Urine WBC Urine WBC Clumps Ur Squamous Epith Cells Amorphous Sediment Urine Bacteria 04/19/23 04/20/23 04/20/23 20:52 04:47 04:47 WBC 11.60 H RBC 3.75 L Hgb 11.9 L Hct 36.5 L MCV 97.3 H Plt Count 135 L Neutrophils # Monocytes # 1.03 H VBG pH VBG HCO3 Sodium Chloride Carbon Dioxide Anion Gap BUN Creatinine Est GFR (CKD-EPI) BUN/Creatinine Ratio Glucose POC Glucose (mg/dL) 159 H Magnesium AST C-Reactive Protein 1.30 H Urine Appearance Urine Protein Urine Blood Ur Leukocyte Esterase Urine RBC Urine WBC Urine WBC Clumps Ur Squamous Epith Cells Amorphous Sediment Urine Bacteria Assessment and Plan Assessment: * Altered mental status, likely due to toxic metabolic encephalopathy * Acute E. coli UTI, on cefepime and vancomycin. * Bacteremia with coagulase-negative staph. * End-stage renal disease, on hemodialysis * CAD * CHF * Diabetes * Hyperlipidemia * Hypertension * Rheumatoid arthritis * Sleep apnea Plan: * Patient has delirium/metabolic encephalopathy due to acute UTI/bacteremia. * ID on board, patient on cefepime and vancomycin. * Check EEG will refer encephalopathy. * Other medical management as per IM. * Patient previously had abnormal thyroid functions in November 2022. We will check thyroid functions. Patient also had normal B12, but quite elevated MMA 1.07, suggestive of B12 deficiency. We will recheck B12. * We will try to obtain collateral history from family members about her baseline functioning. * Neurology will follow clinically. * Thank you for the consult.
[2023-04-21] MEDS ORDERED: QUEtiapine 25 MG TAB PO PRN (11:16)
--- NOTE | 2023-04-21 11:34 | P.PN ---
Subjective This is a 67 rolled female who was recently admitted for [facility] with altered mental status with concerns of possible acute urinary tract infection. Culture showing E. coli with some sensitivities and repeat blood cultures have been ordered and pending including cultures from the dialysis catheter tip with concerns for infection coming from the source. Infectious disease is following and patient is maintained on IV antibiotics and awaiting finalized cultures. Patient's mentation continues to be somewhat confused although is slightly improved. Patient maintained on hemodialysis with nephrology following closely. Patient follows with nephrology outpatient and is maintained on dialysis Saturday/Saturday/Saturday. Patient is currently afebrile with no reported chest pain or shortness of breath. Patient is tolerating diet and has been selective on taking scheduled medications. 04/19/2023 Patient can tell she is in the hospital but she looks confused about her illness. She was refusing taking her medication today. She was a little bit agitated and sharp and at times. Sometimes she answers unrelated to the question, for example she starts talking about her son doing the in [place] when she was asked about medical questions. She looks comfortable lying in bed. Lethargic. She denies any other complaints. No suprapubic tenderness. The right upper chest with no surrounding cellulitis. Graft of the left upper extremity looks healing. Repeat blood culture is pending while she remains on cefepime for E. coli UTI and positive blood culture with coagulase negative staph which could be contamination versus line infection 04/20/2023 Patient is more confused and drowsy today. As per staff this happened after she took Seroquel yesterday when she was more agitated and choking. Patient To verbal stimuli is helping go back to sleep. Patient is getting hemodialysis today. She is afebrile. Leukocytosis improving down to 11.6. Since yesterday she was covered with cefepime and vancomycin. Repeat CT of the brain is ordered Also going to consult neurologist for further recommendation. Repeat blood culture is still pending to check on her staff infection in the blood versus contamination. This patient is not eating because of her confusion would lower her insulin from 20 units at bedtime down to 5 units with insulin sliding scale to prevent hypoglycemia. Her glucose since yesterday morning was as low as 70 and going up to 248. We'll keep monitoring her closely 04/21/2023 Patient was agitated last night and she received Seroquel 50 mg and her usual dose of 12.5 this morning. She still looks sleepy but she went To verbal stimuli and answer some questions. She is noted to much blood sugars controlled around 70-110. C7 is negative. Neurology input is appreciated. EEG is pending for now. As well as vitamin B12 and TSH. We resumed her Cymbalta from tomorrow 60 mg daily. Also we stopped her Gabapentin 200 mg at bedtime tonight. We will keep monitoring closely. The same time she remains on IV vancomycin and cefepime for possible cellulitis and bacteremia Objective - Vital Signs Vital signs: Vital Signs Temp 96.7 F L 04/21/23 07:37 Pulse 78 04/21/23 07:37 Resp 17 04/21/23 07:37 BP 115/71 04/21/23 07:37 Pulse Ox 95 04/21/23 07:37 FiO2 21 04/20/23 04:00 Intake & Output 04/20/23 04/21/23 04/21/23 18:59 06:59 18:59 Other: # Voids 0 # Bowel Movements 0 - Exam -GENERAL: The patient is alert and oriented x2-3,confused, not in any acute distress. Well developed, well nourished. HEENT: Pupils are round and equally reacting to light. EOMI. No scleral icterus. No conjunctival pallor. Normocephalic, atraumatic. No pharyngeal erythema. No thyromegaly. CARDIOVASCULAR: S1 and S2 present. No murmurs, rubs, or gallops. -PULMONARY: Chest is clear to auscultation, no wheezing , no crackles. right upper chest permacath in place ABDOMEN: Soft, nontender, nondistended, normoactive bowel sounds. No palpable organomegaly. MUSCULOSKELETAL: No joint swelling or deformity. EXTREMITIES: No cyanosis, clubbing, or pedal edema. NEUROLOGICAL: Gross neurological examination did not reveal any focal deficits. SKIN: No rashes. no petechiae. - Labs CBC & Chem 7: 04/20/23 04:47 04/19/23 07:07 Labs: Abnormal Lab Results - Last 24 Hours (Table) 04/20/23 Range/Units 20:29 POC Glucose (mg/dL) 164 H (70-110) mg/dL Microbiology - Last 24 Hours (Table) 04/18/23 10:20 Blood Culture - Preliminary Blood Assessment and Plan Assessment: Change in mental status, acute urinary tract infection, uremia, sepsis, acute urinary tract infection with features of sepsis, present on admission. Cultures showing E. coli Concerns for possible dialysis catheter infection, cultures currently pending ESRD, maintained on hemodialysis Diabetes mellitus2, insulin-dependent History of asthma, not an exacerbation Obesity with a BMI 37.1 History of CHF with diastolic dysfunction, not an exacerbation, most recent EF is 50-55% History of coronary artery disease History of CVA/TIA Hyperlipidemia History of hypertension History of rheumatoid arthritis History of pulmonary embolism History of anxiety/depression Plan: Patient is maintained on IV antibiotics in the form of cefepime and IV vancomycin with infectious disease following awaiting finalized cultures including blood cultures from a dialysis catheter. Urine cultures finalized showing E. coli with sensitivities Awaiting finalized cultures with replete blood cultures ordered and pending from today from dialysis catheter with concerns of right chest wall port catheter infection. Neurology consult Continue with Accu-Cheks before meals and at bedtime and continue sliding scale home medications reviewed and resumed as appropriate Mentation not quite back to baseline. Continue with frequent reorientation and blinds and shades open during the day Plan is to return to [facility] once stabilized and finalized cultures have been resulted Due to multiple complex medical issues, start small dose of eliquis , if symptoms persists may consider consultation DVT prophylaxis: Aspirin and Plavix GI prophylaxis: Pepcid prognosis is guarded
[2023-04-21 12:01] LABS: Glucose,Whole Blood 107 mg/dL (70-110)
[2023-04-21] MEDS: SODIUM CHLORIDE 0.9% 1,000 ML IV SCH (14:50)
--- NOTE | 2023-04-21 15:41 | P.PN ---
Subjective Progress Note Date: 04/21/23 Follow-up for ESRD. Objective - Vital Signs Vital signs: Vital Signs Temp 97.9 F 04/21/23 14:38 Pulse 76 04/21/23 14:38 Resp 18 04/21/23 14:38 BP 112/72 04/21/23 14:38 Pulse Ox 96 04/21/23 14:38 FiO2 21 04/20/23 04:00 Intake & Output 04/20/23 04/21/23 04/21/23 18:59 06:59 18:59 Other: # Voids 0 # Bowel Movements 0 - Exam No acute distress. S1-S2 heard Lungs clear No edema - Labs CBC & Chem 7: 04/20/23 04:47 04/19/23 07:07 Labs: Abnormal Lab Results - Last 24 Hours (Table) 04/20/23 Range/Units 20:29 POC Glucose (mg/dL) 164 H (70-110) mg/dL Microbiology - Last 24 Hours (Table) 04/18/23 10:20 Blood Culture - Preliminary Blood Assessment and Plan Assessment: #1 ESRD, TTS schedule #2 E. coli UTI on antibiotics #3 staff negative bacteremia #4 hypertension with ESRD #5 anemia with ESRD Plan: #1 hemodialysis yesterday, 2 L of UF. next Treatment on Saturday #2 ESRD medications #3 antibiotics as per ID
--- NOTE | 2023-04-21 15:54 | P.PN ---
Subjective Progress Note Date: 04/21/23 Principal diagnosis: Possible UTI and positive blood culture Patient is a 67-year-old female with a past medical history significant for end-stage renal disease maintained on dialysis Saturday through the [facility] , has been sent to the ER for evaluation of mental status changes weakness and decreased level of responsiveness did have a positive UA, blood cultures not coming back positive with staph epi On today's evaluation that is 04/21/2023, the patient denies any fever or chills, the patient is breathing comfortably on room air and no need for supplemental oxygen, the patient denies any chest pain or cough, patient denies nausea/vomiting or diarrhea and no abdominal pain Patient white count is down to 11.60 as of yesterday no CBC was done today, CRP is 1.30, blood culture with staph epi Objective - Vital Signs Vital signs: Vital Signs Temp 96.7 F L 04/21/23 07:37 Pulse 78 04/21/23 07:37 Resp 17 04/21/23 07:37 BP 115/71 04/21/23 07:37 Pulse Ox 95 04/21/23 07:37 FiO2 21 04/20/23 04:00 Intake & Output 04/20/23 04/21/23 04/21/23 18:59 06:59 18:59 Other: # Voids 0 # Bowel Movements 0 - Exam GENERAL DESCRIPTION: An elderly female lying in bed in no distress RESPIRATORY SYSTEM: Unlabored breathing , clear to auscultation anteriorly HEART: S1 S2 regular rate and rhythm , ABDOMEN: Soft , no tenderness EXTREMITIES: No edema feet - Labs CBC & Chem 7: 04/20/23 04:47 04/19/23 07:07 Labs: Abnormal Lab Results - Last 24 Hours (Table) 04/20/23 Range/Units 20:29 POC Glucose (mg/dL) 164 H (70-110) mg/dL Microbiology - Last 24 Hours (Table) 04/18/23 10:20 Blood Culture - Preliminary Blood Assessment and Plan (1) Positive blood culture Current Visit: Yes Status: Acute Code(s): R78.81 - BACTEREMIA SNOMED Code(s): 719772831 (2) UTI (urinary tract infection) Current Visit: Yes Status: Acute Code(s): N39.0 - URINARY TRACT INFECTION, SITE NOT SPECIFIED SNOMED Code(s): 85312341 Plan: 1patient presented to hospital with weakness mental status changes which is likely multifactorial questionably metabolic at the patient not running any fever did not have any elevated white count patient abdominal was soft and examination chest x-ray was negative patient apparently still making good amount of urine at the patient have a Roper catheter draining clear urine and did have positive UA underlying UTI last night but not entirely excluded as no other obvious focus of infection 2-blood culture growing staph epi that is oxacillin sensitive with a question of possible contamination versus related to permacatheter, blood cultures has been obtained from dialysis catheter and results are so far negative 3-patient white count has improved with addition of vancomycin which will be continued and will repeat CBC with a.m. lab Dictation was produced using [employer] dictation software. please excuse any grammatical, word or spelling errors. Time with Patient: Less than 30
[2023-04-21] MEDS: ASPIRIN 81 MG PO SCH (16:36)
[2023-04-21] MEDS: FOLIC ACID-VIT B COMPLEX-VIT C 1 CAP PO SCH (16:36)
[2023-04-21] MEDS: CHOLECALCIFEROL 25 MCG (1000 IU) TABLET PO SCH (16:36)
[2023-04-21 17:02] LABS: Glucose,Whole Blood 202 mg/dL (70-110)
[2023-04-21 20:09] LABS: Glucose,Whole Blood 251 mg/dL (70-110)
[2023-04-21] MEDS: ATORVASTATIN 40 MG TAB PO SCH (21:11)
[2023-04-21] MEDS: INSULIN DETEMIR (LEVEMIR) 100 UNIT/ML SYR SQ SCH (21:11)
[2023-04-21] MEDS: CEFDINIR 300 MG CAP PO SCH (21:11)
[2023-04-21] MEDS: MONTELUKAST 10 MG TAB PO SCH (21:11)
[2023-04-22] MEDS: CALCIUM ACETATE 667 MG TAB PO SCH ×4 (05:54→20:34)
[2023-04-22 06:18] LABS: Glucose,Whole Blood 231 mg/dL (70-110)
[2023-04-22 09:06] LABS: Basophils # (A) 0.03 X 10*3/uL (0.00-0.10); Basophils % (A) 0.4 %; Eosinophils # (A) 0.19 X 10*3/uL (0.04-0.35); Eosinophils % (A) 2.4 %; HCT 40.8 % (37.2-46.3); HGB 12.8 d/dL (12.0-15.0); Lymphocytes # (A) 3.07 X 10*3/uL (0.90-5.00); MCH 31.3 pg (27.0-32.0); MCHC 31.4 d/dL (32.0-37.0); MCV 99.8 FL (80.0-97.0); Mean Platelet Volume 11.8 FL (9.5-12.2); Monocytes # (A) 0.88 X 10*3/uL (0.20-1.00); Monocytes % (A) 11.2 %; NRBC Per 100 WBC 0 X 10*3/uL (0.00-0.01); Neutrophils # (A) 3.66 X 10*3/uL (1.80-7.70); Neutrophils % (A) 46.5 %; Platelet Count 146 X 10*3/uL (140-440); RBC 4.09 X 10*6/uL (4.10-5.20); RDW 13.3 % (11.5-14.5); WBC 7.87 X 10*3/uL (4.50-10.00)
[2023-04-22] MEDS: IPRATROPIUM-ALBUTEROL 3 ML NEB INHALATION SCH ×4 (09:34→21:10)
[2023-04-22] MEDS ORDERED: MELATONIN 1 MG TAB PO PRN (10:39)
--- NOTE | 2023-04-22 10:47 | P.PN ---
Subjective This is a 67 rolled female who was recently admitted for [facility] with altered mental status with concerns of possible acute urinary tract infection. Culture showing E. coli with some sensitivities and repeat blood cultures have been ordered and pending including cultures from the dialysis catheter tip with concerns for infection coming from the source. Infectious disease is following and patient is maintained on IV antibiotics and awaiting finalized cultures. Patient's mentation continues to be somewhat confused although is slightly improved. Patient maintained on hemodialysis with nephrology following closely. Patient follows with nephrology outpatient and is maintained on dialysis Saturday/Saturday/Saturday. Patient is currently afebrile with no reported chest pain or shortness of breath. Patient is tolerating diet and has been selective on taking scheduled medications. 04/19/2023 Patient can tell she is in the hospital but she looks confused about her illness. She was refusing taking her medication today. She was a little bit agitated and sharp and at times. Sometimes she answers unrelated to the question, for example she starts talking about her son doing the in [place] when she was asked about medical questions. She looks comfortable lying in bed. Lethargic. She denies any other complaints. No suprapubic tenderness. The right upper chest with no surrounding cellulitis. Graft of the left upper extremity looks healing. Repeat blood culture is pending while she remains on cefepime for E. coli UTI and positive blood culture with coagulase negative staph which could be contamination versus line infection 04/20/2023 Patient is more confused and drowsy today. As per staff this happened after she took Seroquel yesterday when she was more agitated and choking. Patient To verbal stimuli is helping go back to sleep. Patient is getting hemodialysis today. She is afebrile. Leukocytosis improving down to 11.6. Since yesterday she was covered with cefepime and vancomycin. Repeat CT of the brain is ordered Also going to consult neurologist for further recommendation. Repeat blood culture is still pending to check on her staff infection in the blood versus contamination. This patient is not eating because of her confusion would lower her insulin from 20 units at bedtime down to 5 units with insulin sliding scale to prevent hypoglycemia. Her glucose since yesterday morning was as low as 70 and going up to 248. We'll keep monitoring her closely 04/21/2023 Patient was agitated last night and she received Seroquel 50 mg and her usual dose of 12.5 this morning. She still looks sleepy but she went To verbal stimuli and answer some questions. She is noted to much blood sugars controlled around 70-110. C7 is negative. Neurology input is appreciated. EEG is pending for now. As well as vitamin B12 and TSH. We resumed her Cymbalta from tomorrow 60 mg daily. Also we stopped her Gabapentin 200 mg at bedtime tonight. We will keep monitoring closely. The same time she remains on IV vancomycin and cefepime for possible cellulitis and bacteremia 04/22/2023 Patient received Seroquel smaller doses at 12.5 mg last night compared to 50 mg the night before, this morning she was still sleepy. And this happens every day and that she wakes up. Most likely patient has toxic metabolic encephalopathy secondary to medication. Discontinued her Seroquel today and put her on melatonin when necessary as well as her home dose of Cymbalta and gabapentin 100 mg in the morning and 200 mg in the evening with a close monitoring of her mentation. Tremors on IV vancomycin for possible bacteremia, she has positive coagulase negative staph and blood culture which could be contamination but also she has permacath. She is also on Cefdinir for UTI. ALLERGY input is appreciated most likely metabolic/toxic encephalopathy. Ruled out seizure with EEG. Her sugar is controlled after without her Levemir dose to 5 mg at bedtime. Objective - Vital Signs Vital signs: Vital Signs Temp 98 F 04/22/23 01:36 Pulse 70 04/22/23 10:35 Resp 12 04/22/23 10:35 BP 129/75 04/22/23 08:00 Pulse Ox 99 04/22/23 08:00 FiO2 21 04/22/23 09:35 Intake & Output 04/21/23 04/22/23 04/22/23 18:59 06:59 18:59 Other: Voiding Method Diaper # Voids 0 # Bowel Movements 0 - Exam -GENERAL: The patient is alert and oriented x2-3,confused, not in any acute distress. Well developed, well nourished. HEENT: Pupils are round and equally reacting to light. EOMI. No scleral icterus. No conjunctival pallor. Normocephalic, atraumatic. No pharyngeal erythema. No thyromegaly. CARDIOVASCULAR: S1 and S2 present. No murmurs, rubs, or gallops. -PULMONARY: Chest is clear to auscultation, no wheezing , no crackles. right upper chest permacath in place ABDOMEN: Soft, nontender, nondistended, normoactive bowel sounds. No palpable organomegaly. MUSCULOSKELETAL: No joint swelling or deformity. EXTREMITIES: No cyanosis, clubbing, or pedal edema. NEUROLOGICAL: Gross neurological examination did not reveal any focal deficits. SKIN: No rashes. no petechiae. - Labs CBC & Chem 7: 04/22/23 05:50 04/19/23 07:07 Labs: Abnormal Lab Results - Last 24 Hours (Table) 04/21/23 04/21/23 04/21/23 Range/Units 05:49 17:00 20:07 RBC (4.10-5.20) X 10*6/uL MCV (80.0-97.0) FL MCHC (32.0-37.0) d/dL POC Glucose (mg/dL) 202 H 251 H (70-110) mg/dL Vitamin B12 1299.0 H (200.0-944.0) pg/mL 04/22/23 04/22/23 Range/Units 05:50 06:17 RBC 4.09 L (4.10-5.20) X 10*6/uL MCV 99.8 H (80.0-97.0) FL MCHC 31.4 L (32.0-37.0) d/dL POC Glucose (mg/dL) 231 H (70-110) mg/dL Vitamin B12 (200.0-944.0) pg/mL Microbiology - Last 24 Hours (Table) 04/18/23 10:20 Blood Culture - Preliminary Blood 04/16/23 12:30 Blood Culture - Final Blood Assessment and Plan Assessment: Change in mental status, acute urinary tract infection, uremia, sepsis, acute urinary tract infection with features of sepsis, present on admission. Cultures showing E. coli Concerns for possible dialysis catheter infection, cultures currently pending ESRD, maintained on hemodialysis Diabetes mellitus2, insulin-dependent History of asthma, not an exacerbation Obesity with a BMI 37.1 History of CHF with diastolic dysfunction, not an exacerbation, most recent EF is 50-55% History of coronary artery disease History of CVA/TIA Hyperlipidemia History of hypertension History of rheumatoid arthritis History of pulmonary embolism History of anxiety/depression Plan: Patient is maintained on IV antibiotics in the form of IV vancomycin with i nfectious disease following awaiting finalized cultures including blood cultures from a dialysis catheter. Urine cultures finalized showing E. coli with sensitivities and patient covered with cefdinir EKG pending Neurology consult Continue with Accu-Cheks before meals and at bedtime and continue sliding scale home medications reviewed and resumed as appropriate Mentation not quite back to baseline. Continue with frequent reorientation and blinds and shades open during the day Plan is to return to [facility] once stabilized and finalized cultures have been resulted Due to multiple complex medical issues, start small dose of eliquis , if symptoms persists may consider consultation DVT prophylaxis: Aspirin and Plavix GI prophylaxis: Pepcid prognosis is guarded
[2023-04-22] MEDS: LEVOTHYROXINE 88 MCG TAB PO SCH (11:26)
--- NOTE | 2023-04-22 11:27 | P.PN ---
Subjective Patient is seen in follow-up for end-stage renal disease. Is maintained on hemodialysis on Saturday schedule. Resting in bed. He modynamically stable. Vital signs are stable. General: No acute distress. HEENT: Head exam is unremarkable. LUNGS: No audible rhonchi or wheezes. HEART: Rate and Rhythm are regular. ABDOMEN: Nontender. EXTREMITITES: No edema. Objective - Vital Signs Vital signs: Vital Signs Temp 98 F 04/22/23 01:36 Pulse 70 04/22/23 10:35 Resp 12 04/22/23 10:35 BP 129/75 04/22/23 08:00 Pulse Ox 99 04/22/23 08:00 FiO2 21 04/22/23 09:35 Intake & Output 04/21/23 04/22/23 04/22/23 18:59 06:59 18:59 Other: Voiding Method Diaper # Voids 0 # Bowel Movements 0 - Labs CBC & Chem 7: 04/22/23 05:50 04/19/23 07:07 Labs: Abnormal Lab Results - Last 24 Hours (Table) 04/21/23 04/21/23 04/21/23 Range/Units 05:49 17:00 20:07 RBC (4.10-5.20) X 10*6/uL MCV (80.0-97.0) FL MCHC (32.0-37.0) d/dL POC Glucose (mg/dL) 202 H 251 H (70-110) mg/dL Vitamin B12 1299.0 H (200.0-944.0) pg/mL 04/22/23 04/22/23 Range/Units 05:50 06:17 RBC 4.09 L (4.10-5.20) X 10*6/uL MCV 99.8 H (80.0-97.0) FL MCHC 31.4 L (32.0-37.0) d/dL POC Glucose (mg/dL) 231 H (70-110) mg/dL Vitamin B12 (200.0-944.0) pg/mL Microbiology - Last 24 Hours (Table) 04/18/23 10:20 Blood Culture - Preliminary Blood 04/16/23 12:30 Blood Culture - Final Blood Assessment and Plan Plan: Assessment: 1. End-stage renal disease maintained on hemodialysis on Saturday schedule. 2. E. coli UTI on antibiotics. 3. Coag-negative staph bacteremia with concern for permacath infection versus contamination. ID following. Repeat cultures have been negative. 4. Chronic kidney disease mineral bone disease maintained on PhosLo. 5. Hypertension with chronic disease. Stable. 6. Diabetes mellitus. Plan: Hemodialysis tomorrow. Follow-up cultures.
[2023-04-22 11:46] LABS: Glucose,Whole Blood 171 mg/dL (70-110)
[2023-04-22] MEDS: ISOSORBIDE MONONITRATE ER 30 MG TAB.ER.24H PO SCH ×2 (12:04→18:17)
[2023-04-22] MEDS: allopurinoL 100 MG TAB PO SCH (12:04)
[2023-04-22] MEDS: BACLOFEN 10 MG TAB PO SCH ×3 (12:04→18:15)
[2023-04-22] MEDS: VITAMIN E TOPICAL SCH ×2 (12:05→18:17)
[2023-04-22] MEDS: FAMOTIDINE 20 MG/2 ML VIAL IV SCH (12:05)
[2023-04-22] MEDS: carvediloL 12.5 MG TAB PO SCH ×2 (12:06→18:16)
[2023-04-22] MEDS: GABAPENTIN 100 MG CAP PO SCH ×2 (12:07→20:35)
[2023-04-22] MEDS: SODIUM CHLORIDE 0.9% 1,000 ML IV SCH (12:07)
[2023-04-22] MEDS: FUROSEMIDE 20 MG TAB PO SCH ×2 (12:07→18:16)
[2023-04-22] MEDS: QUEtiapine 25 MG TAB PO SCH (12:08)
[2023-04-22] MEDS: DULoxetine HCL 60 MG CAPSULE.DR PO SCH (12:42)
[2023-04-22] MEDS: CLOPIDOGREL 75 MG TAB PO SCH (12:42)
[2023-04-22 14:49] LABS: ABG Base Excess 1.7 mmol/L; ABG HCO3 27 mmol/L (21-25); ABG Oxygen Saturation 92.2 % (94-97); ABG PCO2 49 mmHg (35-45); ABG PH 7.35 (7.35-7.45); ABG PO2 75 mmHg (83-108); ABG TCO2 29 mmol/L (19-24); Allen Test Performed? Yes
[2023-04-22 16:49] LABS: Glucose,Whole Blood 124 mg/dL (70-110)
[2023-04-22] MEDS: ASPIRIN 81 MG PO SCH (18:15)
[2023-04-22] MEDS: CHOLECALCIFEROL 25 MCG (1000 IU) TABLET PO SCH (18:16)
[2023-04-22] MEDS: FOLIC ACID-VIT B COMPLEX-VIT C 1 CAP PO SCH (18:16)
--- NOTE | 2023-04-22 19:42 | P.PN ---
Subjective Progress Note Date: 04/22/23 Patient was seen for a follow-up. Patient is on BiPAP. Patient appears very obtunded. No seizure-like activity. Objective - Vital Signs Vital signs: Vital Signs Temp 97.9 F 04/22/23 14:00 Pulse 52 L 04/22/23 14:00 Resp 8 L 04/22/23 14:00 BP 133/76 04/22/23 14:00 Pulse Ox 97 04/22/23 14:00 FiO2 21 04/22/23 12:41 Intake & Output 04/21/23 04/22/23 04/22/23 18:59 06:59 18:59 Other: Voiding Method Diaper # Voids 0 # Bowel Movements 0 - Exam Patient obtunded, on BiPAP. Patient does minimally arouses. Does not follow commands. - Labs CBC & Chem 7: 04/22/23 05:50 04/19/23 07:07 Labs: Abnormal Lab Results - Last 24 Hours (Table) 04/21/23 04/21/23 04/21/23 Range/Units 05:49 17:00 20:07 RBC (4.10-5.20) X 10*6/uL MCV (80.0-97.0) FL MCHC (32.0-37.0) d/dL POC Glucose (mg/dL) 202 H 251 H (70-110) mg/dL Vitamin B12 1299.0 H (200.0-944.0) pg/mL 04/22/23 04/22/23 04/22/23 Range/Units 05:50 06:17 11:44 RBC 4.09 L (4.10-5.20) X 10*6/uL MCV 99.8 H (80.0-97.0) FL MCHC 31.4 L (32.0-37.0) d/dL POC Glucose (mg/dL) 231 H 171 H (70-110) mg/dL Vitamin B12 (200.0-944.0) pg/mL Microbiology - Last 24 Hours (Table) 04/18/23 10:20 Blood Culture - Preliminary Blood 04/16/23 12:30 Blood Culture - Final Blood Assessment and Plan Assessment: * Altered mental status, likely due to toxic metabolic encephalopathy * Acute E. coli UTI, on cefepime and vancomycin. * Bacteremia with coagulase-negative staph. * End-stage renal disease, on hemodialysis * CAD * CHF * Diabetes * Hyperlipidemia * Hypertension * Rheumatoid arthritis * Sleep apnea Plan: * Patient has delirium/metabolic encephalopathy due to acute UTI/bacteremia. * ID on board, patient on cefepime and vancomycin. * EEG could not be performed today because patient is on BiPAP. * Patient's ABG with pH of 7.35, pCO2 49, pO2 75 and saturation 92% on 21% FiO2. * Other medical management as per IM. * Patient previously had normal B12, but quite elevated MMA 1.07, suggestive of B12 deficiency. Repeat B12 1299, TSH normal 1.440. * We will try to obtain collateral history from family members about her baseline functioning. * Consider repeating chest x-ray. Will defer to IM.
[2023-04-22] MEDS: ATORVASTATIN 40 MG TAB PO SCH (20:33)
[2023-04-22] MEDS: CEFDINIR 300 MG CAP PO SCH (20:34)
[2023-04-22] MEDS: MONTELUKAST 10 MG TAB PO SCH (20:35)
[2023-04-22 21:00] LABS: Glucose,Whole Blood 156 mg/dL (70-110)
[2023-04-22] MEDS: INSULIN DETEMIR (LEVEMIR) 100 UNIT/ML SYR SQ SCH (21:29)
[2023-04-22 23:48] LABS: African American GFR (CKD) 6 (>60 ml/min/1.73 sqM); Anion Gap 12 mmol/L; Blood Urea Nitrogen 53 mg/dL (7-17); Calcium 9.6 mg/dL (8.4-10.2); Carbon Dioxide 19 mmol/L (22-30); Chloride 103 mmol/L (98-107); Glucose 149 mg/dL (74-99); Non-African American GFR(CKD) 5 (>60 ml/min/1.73 sqM); Sodium 134 mmol/L (137-145)
[2023-04-23 05:59] LABS: Glucose,Whole Blood 157 mg/dL (70-110)
[2023-04-23] MEDS: CALCIUM ACETATE 667 MG TAB PO SCH ×4 (06:12→20:27)
[2023-04-23] MEDS: IPRATROPIUM-ALBUTEROL 3 ML NEB INHALATION SCH ×4 (08:53→20:42)
[2023-04-23] MEDS ORDERED: Acetaminophen-Codeine 300-30mg TAB PO PRN (09:10)
--- NOTE | 2023-04-23 09:51 | P.PN ---
Subjective This is a 67 rolled female who was recently admitted for [facility] with altered mental status with concerns of possible acute urinary tract infection. Culture showing E. coli with some sensitivities and repeat blood cultures have been ordered and pending including cultures from the dialysis catheter tip with concerns for infection coming from the source. Infectious disease is following and patient is maintained on IV antibiotics and awaiting finalized cultures. Patient's mentation continues to be somewhat confused although is slightly improved. Patient maintained on hemodialysis with nephrology following closely. Patient follows with nephrology outpatient and is maintained on dialysis Saturday/Saturday/Saturday. Patient is currently afebrile with no reported chest pain or shortness of breath. Patient is tolerating diet and has been selective on taking scheduled medications. 04/19/2023 Patient can tell she is in the hospital but she looks confused about her illness. She was refusing taking her medication today. She was a little bit agitated and sharp and at times. Sometimes she answers unrelated to the question, for example she starts talking about her son doing the in [place] when she was asked about medical questions. She looks comfortable lying in bed. Lethargic. She denies any other complaints. No suprapubic tenderness. The right upper chest with no surrounding cellulitis. Graft of the left upper extremity looks healing. Repeat blood culture is pending while she remains on cefepime for E. coli UTI and positive blood culture with coagulase negative staph which could be contamination versus line infection 04/20/2023 Patient is more confused and drowsy today. As per staff this happened after she took Seroquel yesterday when she was more agitated and choking. Patient To verbal stimuli is helping go back to sleep. Patient is getting hemodialysis today. She is afebrile. Leukocytosis improving down to 11.6. Since yesterday she was covered with cefepime and vancomycin. Repeat CT of the brain is ordered Also going to consult neurologist for further recommendation. Repeat blood culture is still pending to check on her staff infection in the blood versus contamination. This patient is not eating because of her confusion would lower her insulin from 20 units at bedtime down to 5 units with insulin sliding scale to prevent hypoglycemia. Her glucose since yesterday morning was as low as 70 and going up to 248. We'll keep monitoring her closely 04/21/2023 Patient was agitated last night and she received Seroquel 50 mg and her usual dose of 12.5 this morning. She still looks sleepy but she went To verbal stimuli and answer some questions. She is noted to much blood sugars controlled around 70-110. C7 is negative. Neurology input is appreciated. EEG is pending for now. As well as vitamin B12 and TSH. We resumed her Cymbalta from tomorrow 60 mg daily. Also we stopped her Gabapentin 200 mg at bedtime tonight. We will keep monitoring closely. The same time she remains on IV vancomycin and cefepime for possible cellulitis and bacteremia 04/22/2023 Patient received Seroquel smaller doses at 12.5 mg last night compared to 50 mg the night before, this morning she was still sleepy. And this happens every day and that she wakes up. Most likely patient has toxic metabolic encephalopathy secondary to medication. Discontinued her Seroquel today and put her on melatonin when necessary as well as her home dose of Cymbalta and gabapentin 100 mg in the morning and 200 mg in the evening with a close monitoring of her mentation. Tremors on IV vancomycin for possible bacteremia, she has positive coagulase negative staph and blood culture which could be contamination but also she has permacath. She is also on Cefdinir for UTI. ALLERGY input is appreciated most likely metabolic/toxic encephalopathy. Ruled out seizure with EEG. Her sugar is controlled after without her Levemir dose to 5 mg at bedtime. 04/23/2023 Patient remains sleepy most of the day yesterday after she received Seroquel 50 mg, Seroquel 12.5 mg and gabapentin 100 mg gabapentin 200 mg several doses. Thi s morning she still sleepy on BiPAP but she started waking up, she got agitated easily. She still drowsy. ABG done yesterday shows normal pH mildly elevated pCO2 explain the patient's symptoms. Level this morning is low. Neurology on the case and EGD is planned to be done today as well. Also patient undergoing hemodialysis. Discontinue Seroquel. Discontinue the night dose of gabapentin while keeping the morning was 100 mg. Patient also continued on Cymbalta discontinue Duncan, start the patient Tylenol No. 3 for pain control. Use melatonin when necessary for insomnia. Try to lower the sedatives to help patient mentation improved discussed with staff. continue with IV vancomycin and cefdinir Objective - Vital Signs Vital signs: Vital Signs Temp 98.4 F 04/23/23 07:06 Pulse 75 04/23/23 07:06 Resp 22 04/23/23 07:06 BP 120/64 04/23/23 07:06 Pulse Ox 98 04/23/23 07:06 FiO2 21 04/22/23 23:27 Intake & Output 04/22/23 04/23/23 04/23/23 18:59 06:59 18:59 Other: Voiding Method Diaper Diaper # Voids 1 0 - Exam -GENERAL: The patient is sleepy and drowsy, not in any acute distress. Well developed, well nourished. on BiPAP machine HEENT: Pupils are round and equally reacting to light. EOMI. No scleral icterus. No conjunctival pallor. Normocephalic, atraumatic. No pharyngeal erythema. No thyromegaly. CARDIOVASCULAR: S1 and S2 present. No murmurs, rubs, or gallops. -PULMONARY: Chest is clear to auscultation, no wheezing , no crackles. right upper chest permacath in place ABDOMEN: Soft, nontender, nondistended, normoactive bowel sounds. No palpable organomegaly. MUSCULOSKELETAL: No joint swelling or deformity. EXTREMITIES: No cyanosis, clubbing, or pedal edema. NEUROLOGICAL: Gross neurological examination did not reveal any focal deficits. SKIN: No rashes. no petechiae. - Labs CBC & Chem 7: 04/22/23 05:50 04/23/23 00:56 Labs: Abnormal Lab Results - Last 24 Hours (Table) 04/22/23 04/22/23 04/22/23 Range/Units 11:44 14:45 16:47 ABG pCO2 49 H (35-45) mmHg ABG pO2 75 L (83-108) mmHg ABG HCO3 27 H (21-25) mmol/L ABG Total CO2 29 H (19-24) mmol/L ABG O2 Saturation 92.2 L (94-97) % Sodium (137-145) mmol/L Carbon Dioxide (22-30) mmol/L BUN (7-17) mg/dL Creatinine (0.52-1.04) mg/dL Glucose (74-99) mg/dL POC Glucose (mg/dL) 171 H 124 H (70-110) mg/dL 04/22/23 04/22/23 04/23/23 Range/Units 20:59 23:14 05:58 ABG pCO2 (35-45) mmHg ABG pO2 (83-108) mmHg ABG HCO3 (21-25) mmol/L ABG Total CO2 (19-24) mmol/L ABG O2 Saturation (94-97) % Sodium 134 L (137-145) mmol/L Carbon Dioxide 19 L (22-30) mmol/L BUN 53 H (7-17) mg/dL Creatinine 7.39 H* (0.52-1.04) mg/dL Glucose 149 H (74-99) mg/dL POC Glucose (mg/dL) 156 H 157 H (70-110) mg/dL Assessment and Plan Assessment: Change in mental status, acute urinary tract infection, uremia, sepsis, acute urinary tract infection with features of sepsis, present on admission. Cultures showing E. coli Concerns for possible dialysis catheter infection, cultures currently pending ESRD, maintained on hemodialysis Diabetes mellitus2, insulin-dependent History of asthma, not an exacerbation Obesity with a BMI 37.1 History of CHF with diastolic dysfunction, not an exacerbation, most recent EF is 50-55% History of coronary artery disease History of CVA/TIA Hyperlipidemia History of hypertension History of rheumatoid arthritis History of pulmonary embolism History of anxiety/depression Plan: Patient is maintained on IV antibiotics in the form of IV vancomycin with infectious disease following awaiting finalized cultures including blood cultur es from a dialysis catheter. Urine cultures finalized showing E. coli with sensitivities and patient covered with cefdinir EEG pending ammonia level is low, ABG is guarded remarkable for patient is a dictation Neurology consult Continue with Accu-Cheks before meals and at bedtime and continue sliding scale home medications reviewed and resumed as appropriate Mentation not quite back to baseline. Continue with frequent reorientation and blinds and shades open during the day Plan is to return to [facility] once stabilized and finalized cultures have been resulted Due to multiple complex medical issues, start small dose of eliquis , if symptoms persists may consider consultation DVT prophylaxis: Aspirin and Plavix GI prophylaxis: Pepcid prognosis is guarded
[2023-04-23 11:15] LABS: Glucose,Whole Blood 117 mg/dL (70-110)
--- NOTE | 2023-04-23 11:37 | P.PN ---
Subjective Patient is seen in follow-up for end-stage renal disease. She is maintained on hemodialysis on Saturday schedule. Tolerating dialysis well. Resting in bed. Hemodynamically stable. Vital signs are stable. General: No acute distress. HEENT: Head exam is unremarkable. LUNGS: No audible rhonchi or wheezes. HEART: Rate and Rhythm are regular. ABDOMEN: Nontender. EXTREMITITES: No edema. Objective - Vital Signs Vital signs: Vital Signs Temp 98.4 F 04/23/23 07:06 Pulse 75 04/23/23 07:06 Resp 22 04/23/23 07:06 BP 120/64 04/23/23 07:06 Pulse Ox 98 04/23/23 07:06 FiO2 21 04/22/23 23:27 Intake & Output 04/22/23 04/23/23 04/23/23 18:59 06:59 18:59 Other: Voiding Method Diaper Diaper # Voids 1 0 - Labs CBC & Chem 7: 04/22/23 05:50 04/23/23 00:56 Labs: Abnormal Lab Results - Last 24 Hours (Table) 04/22/23 04/22/23 04/22/23 Range/Units 11:44 14:45 16:47 ABG pCO2 49 H (35-45) mmHg ABG pO2 75 L (83-108) mmHg ABG HCO3 27 H (21-25) mmol/L ABG Total CO2 29 H (19-24) mmol/L ABG O2 Saturation 92.2 L (94-97) % Sodium (137-145) mmol/L Carbon Dioxide (22-30) mmol/L BUN (7-17) mg/dL Creatinine (0.52-1.04) mg/dL Glucose (74-99) mg/dL POC Glucose (mg/dL) 171 H 124 H (70-110) mg/dL 04/22/23 04/22/23 04/23/23 Range/Units 20:59 23:14 05:58 ABG pCO2 (35-45) mmHg ABG pO2 (83-108) mmHg ABG HCO3 (21-25) mmol/L ABG Total CO2 (19-24) mmol/L ABG O2 Saturation (94-97) % Sodium 134 L (137-145) mmol/L Carbon Dioxide 19 L (22-30) mmol/L BUN 53 H (7-17) mg/dL Creatinine 7.39 H* (0.52-1.04) mg/dL Glucose 149 H (74-99) mg/dL POC Glucose (mg/dL) 156 H 157 H (70-110) mg/dL 04/23/23 Range/Units 11:14 ABG pCO2 (35-45) mmHg ABG pO2 (83-108) mmHg ABG HCO3 (21-25) mmol/L ABG Total CO2 (19-24) mmol/L ABG O2 Saturation (94-97) % Sodium (137-145) mmol/L Carbon Dioxide (22-30) mmol/L BUN (7-17) mg/dL Creatinine (0.52-1.04) mg/dL Glucose (74-99) mg/dL POC Glucose (mg/dL) 117 H (70-110) mg/dL Assessment and Plan Plan: Assessment: 1. End-stage renal disease maintained on hemodialysis on Saturday schedule. 2. E. coli UTI on antibiotics. 3. Coag-negative staph bacteremia with concern for permacath infection versus contamination. ID following. Repeat cultures have been negative. 4. Chronic kidney disease mineral bone disease maintained on PhosLo. 5. Hypertension with chronic disease. Stable. 6. Diabetes mellitus. Plan: Currently seen while undergoing hemodialysis. Next treatment on . Follow-up cultures.
[2023-04-23] MEDS: CLOPIDOGREL 75 MG TAB PO SCH (11:56)
[2023-04-23] MEDS: BACLOFEN 10 MG TAB PO SCH ×2 (11:56→12:43)
[2023-04-23] MEDS: allopurinoL 100 MG TAB PO SCH (11:56)
[2023-04-23] MEDS: LEVOTHYROXINE 88 MCG TAB PO SCH (11:57)
[2023-04-23] MEDS: DULoxetine HCL 60 MG CAPSULE.DR PO SCH (11:57)
[2023-04-23] MEDS: GABAPENTIN 100 MG CAP PO SCH (11:57)
[2023-04-23] MEDS: FUROSEMIDE 20 MG TAB PO SCH ×2 (11:57→17:52)
[2023-04-23] MEDS: ISOSORBIDE MONONITRATE ER 30 MG TAB.ER.24H PO SCH ×2 (11:57→17:53)
[2023-04-23] MEDS: FAMOTIDINE 20 MG/2 ML VIAL IV SCH (12:47)
[2023-04-23] MEDS: VITAMIN E TOPICAL SCH ×2 (12:52→17:55)
[2023-04-23] MEDS: SODIUM CHLORIDE 0.9% 1,000 ML IV SCH (14:42)
--- NOTE | 2023-04-23 15:09 | P.PN ---
Subjective Progress Note Date: 04/22/23 Principal diagnosis: Possible UTI and positive blood culture Patient is a 67-year-old female with a past medical history significant for end-stage renal disease maintained on dialysis Saturday through the [facility] , has been sent to the ER for evaluation of mental status changes weakness and decreased level of responsiveness did have a positive UA, blood cultures not coming back positive with staph epi On today's evaluation that is 04/22/2023, the patient continues to be afebrile , the patient is on BiPAP lethargic and did not provide any history no vomiting diarrhea or any other changes reported by nursing staff Patient white count is normalized to 7.87, creatinine 7.39, blood culture with staph epi, repeat blood cultures so far negative Objective - Vital Signs Vital signs: Vital Signs Temp 98 F 04/22/23 01:36 Pulse 70 04/22/23 10:35 Resp 12 04/22/23 10:35 BP 129/75 04/22/23 08:00 Pulse Ox 99 04/22/23 08:00 FiO2 21 04/22/23 12:41 Intake & Output 04/21/23 04/22/23 04/22/23 18:59 06:59 18:59 Other: Voiding Method Diaper # Voids 0 # Bowel Movements 0 - Exam GENERAL DESCRIPTION: An elderly female lying in bed in no distress RESPIRATORY SYSTEM: Unlabored breathing , clear to auscultation anteriorly HEART: S1 S2 regular rate and rhythm , ABDOMEN: Soft , no tenderness EXTREMITIES: No edema feet - Labs CBC & Chem 7: 04/22/23 05:50 04/23/23 00:56 Labs: Abnormal Lab Results - Last 24 Hours (Table) 04/21/23 04/21/23 04/21/23 Range/Units 05:49 17:00 20:07 RBC (4.10-5.20) X 10*6/uL MCV (80.0-97.0) FL MCHC (32.0-37.0) d/dL POC Glucose (mg/dL) 202 H 251 H (70-110) mg/dL Vitamin B12 1299.0 H (200.0-944.0) pg/mL 04/22/23 04/22/23 04/22/23 Range/Units 05:50 06:17 11:44 RBC 4.09 L (4.10-5.20) X 10*6/uL MCV 99.8 H (80.0-97.0) FL MCHC 31.4 L (32.0-37.0) d/dL POC Glucose (mg/dL) 231 H 171 H (70-110) mg/dL Vitamin B12 (200.0-944.0) pg/mL Microbiology - Last 24 Hours (Table) 04/18/23 10:20 Blood Culture - Preliminary Blood 04/16/23 12:30 Blood Culture - Final Blood Assessment and Plan (1) Positive blood culture Current Visit: Yes Status: Acute Code(s): R78.81 - BACTEREMIA SNOMED Code(s): 629338153 (2) UTI (urinary tract infection) Current Visit: Yes Status: Acute Code(s): N39.0 - URINARY TRACT INFECTION, SITE NOT SPECIFIED SNOMED Code(s): 99478549 Plan: 1patient presented to hospital with weakness mental status changes which is likely multifactorial questionably metabolic at the patient not running any fever did not have any elevated white count patient abdominal was soft and examination chest x-ray was negative patient apparently still making good amount of urine at the patient have a Roper catheter draining clear urine and did have positive UA underlying UTI last night but not entirely excluded as no other obvious focus of infection 2-blood culture growing staph epi that is oxacillin sensitive with a question of possible contamination versus related to permacatheter, blood cultures has been obtained from dialysis catheter which is so far negative 3-patient white count has improved , we will continue vancomycin along with oral Omnicef and monitor clinical course closely Dictation was produced using [employer] dictation software. please excuse any grammatical, word or spelling errors. Time with Patient: Less than 30
--- NOTE | 2023-04-23 15:10 | P.PN ---
Subjective Progress Note Date: 04/23/23 Principal diagnosis: Possible UTI and positive blood culture Patient is a 67-year-old female with a past medical history significant for end-stage renal disease maintained on dialysis Saturday through the [facility] , has been sent to the ER for evaluation of mental status changes weakness and decreased level of responsiveness did have a positive UA, blood cultures not coming back positive with staph epi On today's evaluation that is 04/23/2023, the patient remains to be afebrile , the patient remains to be on BiPAP, the patient is lethargic and did not provide any history no vomiting diarrhea or any other changes reported by nursing staff Patient white count is normalized to 7.87, creatinine 7.39 as of yesterday no lab draw today, blood culture with staph epi, repeat blood cultures so far negative Objective - Vital Signs Vital signs: Vital Signs Temp 97.3 F L 04/23/23 13:46 Pulse 93 04/23/23 13:46 Resp 19 04/23/23 13:46 BP 140/81 04/23/23 13:46 Pulse Ox 95 04/23/23 13:46 FiO2 21 04/22/23 23:27 Intake & Output 04/22/23 04/23/23 04/23/23 18:59 06:59 18:59 Intake Total 300 Output Total 1800 Balance -1500 Weight 110.586 kg Intake: Hemodialysis 300 Output: Hemodialysis 1800 Other: Voiding Method Diaper Diaper # Voids 1 0 - Exam GENERAL DESCRIPTION: An elderly female lying in bed in no distress RESPIRATORY SYSTEM: Unlabored breathing , clear to auscultation anteriorly HEART: S1 S2 regular rate and rhythm , ABDOMEN: Soft , no tenderness EXTREMITIES: No edema feet - Labs CBC & Chem 7: 04/22/23 05:50 04/23/23 00:56 Labs: Abnormal Lab Results - Last 24 Hours (Table) 04/22/23 04/22/23 04/22/23 Range/Units 16:47 20:59 23:14 Sodium 134 L (137-145) mmol/L Carbon Dioxide 19 L (22-30) mmol/L BUN 53 H (7-17) mg/dL Creatinine 7.39 H* (0.52-1.04) mg/dL Glucose 149 H (74-99) mg/dL POC Glucose (mg/dL) 124 H 156 H (70-110) mg/dL 04/23/23 04/23/23 Range/Units 05:58 11:14 Sodium (137-145) mmol/L Carbon Dioxide (22-30) mmol/L BUN (7-17) mg/dL Creatinine (0.52-1.04) mg/dL Glucose (74-99) mg/dL POC Glucose (mg/dL) 157 H 117 H (70-110) mg/dL Assessment and Plan (1) Positive blood culture Current Visit: Yes Status: Acute Code(s): R78.81 - BACTEREMIA SNOMED Code(s): 344328246 (2) UTI (urinary tract infection) Current Visit: Yes Status: Acute Code(s): N39.0 - URINARY TRACT INFECTION, SITE NOT SPECIFIED SNOMED Code(s): 26545576 Plan: 1patient presented to hospital with weakness mental status changes which is likely multifactorial questionably metabolic at the patient not running any fe carol did not have any elevated white count patient abdominal was soft and examination chest x-ray was negative patient apparently still making good amount of urine at the patient have a Roper catheter draining clear urine and did have positive UA underlying UTI last night but not entirely excluded as no other obvious focus of infection 2-blood culture growing staph epi that is oxacillin sensitive with a question of possible contamination versus related to permacatheter, blood cultures has been obtained from dialysis catheter which is so far negative 3-patient white count has improved , patient will continue vancomycin along with oral Omnicef while waiting for improvement in her mentation neurology is following the patient closely Dictation was produced using [employer] dictation software. please excuse any grammatical, word or spelling errors. Time with Patient: Less than 30
[2023-04-23 16:36] LABS: Glucose,Whole Blood 126 mg/dL (70-110)
[2023-04-23] MEDS: FOLIC ACID-VIT B COMPLEX-VIT C 1 CAP PO SCH (17:53)
[2023-04-23] MEDS: ASPIRIN 81 MG PO SCH (17:53)
[2023-04-23] MEDS: carvediloL 12.5 MG TAB PO SCH (17:53)
[2023-04-23] MEDS: CHOLECALCIFEROL 25 MCG (1000 IU) TABLET PO SCH (17:53)
[2023-04-23 19:43] LABS: Glucose,Whole Blood 135 mg/dL (70-110)
[2023-04-23] MEDS: CEFDINIR 300 MG CAP PO SCH (20:26)
[2023-04-23] MEDS: ATORVASTATIN 40 MG TAB PO SCH (20:26)
[2023-04-23] MEDS: MONTELUKAST 10 MG TAB PO SCH (20:27)
[2023-04-23] MEDS: INSULIN DETEMIR (LEVEMIR) 100 UNIT/ML SYR SQ SCH (20:27)
--- NOTE | 2023-04-24 00:40 | EEG ---
ELECTROENCEPHALOGRAM REPORT PREAMBLE: This is a 67-year-old female with altered mental status. EEG FINDINGS: This is a 21-channel digital EEG recorded with video component, utilizing 10/20 international system with referential and bipolar montages. Background consists of poorly developed and regulated, mixed frequencies of moderate to high amplitude, diffuse delta and theta activity seen in bihemispheric region. Background does not seem to be reactive to eye opening or closing. The patient was noted to be crying and moaning during the study. Frequent triphasic waves in the bihemispheric region, predominantly in the frontal region was seen intermittently during the study. A lot of myogenic activity was also seen during the study. Only very occasionally this higher amplitude triphasic type waves became more rhythmic at 1 hertz sporadically. No clear- cut epileptiform activity was seen. Different stages of sleep were not seen. Photic stimulation was not done. IMPRESSION: This is an abnormal study due to the presence of background slowing of moderate to severe degree, suggestive of generalized cerebral dysfunction as can be seen with toxic metabolic encephalopathy or related to diffuse structural brain abnormality. Clinical correlation is recommended. Presence of frequent triphasic type waves also suggestive of metabolic encephalopathy. Clinical correlation for hepatic encephalopathy also recommended. Followup study recommended as clinically indicated. MMODL / IJN: [id number] /
[2023-04-24 05:59] LABS: Glucose,Whole Blood 120 mg/dL (70-110)
[2023-04-24] MEDS: FAMOTIDINE 20 MG/2 ML VIAL IV SCH (08:57)
[2023-04-24] MEDS: DULoxetine HCL 60 MG CAPSULE.DR PO SCH (08:59)
[2023-04-24] MEDS: CLOPIDOGREL 75 MG TAB PO SCH (08:59)
[2023-04-24] MEDS: CALCIUM ACETATE 667 MG TAB PO SCH ×6 (08:59→22:14)
[2023-04-24] MEDS: allopurinoL 100 MG TAB PO SCH (08:59)
[2023-04-24] MEDS: GABAPENTIN 100 MG CAP PO SCH (08:59)
[2023-04-24] MEDS: LEVOTHYROXINE 88 MCG TAB PO SCH (09:00)
[2023-04-24] MEDS: FUROSEMIDE 20 MG TAB PO SCH ×2 (09:00→17:40)
[2023-04-24] MEDS: ISOSORBIDE MONONITRATE ER 30 MG TAB.ER.24H PO SCH ×2 (09:01→17:40)
[2023-04-24] MEDS: carvediloL 12.5 MG TAB PO SCH ×2 (09:01→17:40)
[2023-04-24] MEDS: VITAMIN E TOPICAL SCH ×2 (09:02→17:44)
[2023-04-24] MEDS: IPRATROPIUM-ALBUTEROL 3 ML NEB INHALATION SCH ×4 (09:06→19:51)
[2023-04-24 11:33] LABS: Glucose,Whole Blood 144 mg/dL (70-110)
--- NOTE | 2023-04-24 11:39 | P.PN ---
Subjective Progress Note Date: 04/23/23 Patient was seen for a follow-up. Patient continues to be very confused, almost psychotic, with word salad, not making sense. Per nursing report, before dialysis, she is obtunded, lethargic sleeping. After dialysis, she wakes up but is angry all the time. Patient saying random stuff like "where are those kids in [place]". "They want to [place]". "I'm going there, which means it is hard- [employer]". She then says random stuff like "okay standby, I want to a shea, I don't want to dad". Patient appears almost manicky at times. Objective - Vital Signs Vital signs: Vital Signs Temp 97.3 F L 04/23/23 13:46 Pulse 93 04/23/23 13:46 Resp 19 04/23/23 13:46 BP 140/81 04/23/23 13:46 Pulse Ox 95 04/23/23 13:46 FiO2 21 04/22/23 23:27 Intake & Output 04/22/23 04/23/23 04/23/23 18:59 06:59 18:59 Intake Total 300 Output Total 1800 Balance -1500 Weight 110.586 kg Intake: Hemodialysis 300 Output: Hemodialysis 1800 Other: Voiding Method Diaper Diaper # Voids 1 0 0 - Exam Patient is hyperalert, slightly agitated, cries for no reason, then smiles, then becomes very loud, and says random stuff with word salad. Patient is very confused. - Labs CBC & Chem 7: 04/22/23 05:50 04/23/23 00:56 Labs: Abnormal Lab Results - Last 24 Hours (Table) 04/22/23 04/22/23 04/23/23 Range/Units 20:59 23:14 05:58 Sodium 134 L (137-145) mmol/L Carbon Dioxide 19 L (22-30) mmol/L BUN 53 H (7-17) mg/dL Creatinine 7.39 H* (0.52-1.04) mg/dL Glucose 149 H (74-99) mg/dL POC Glucose (mg/dL) 156 H 157 H (70-110) mg/dL 04/23/23 04/23/23 Range/Units 11:14 16:32 Sodium (137-145) mmol/L Carbon Dioxide (22-30) mmol/L BUN (7-17) mg/dL Creatinine (0.52-1.04) mg/dL Glucose (74-99) mg/dL POC Glucose (mg/dL) 117 H 126 H (70-110) mg/dL Assessment and Plan Assessment: * Altered mental status, likely due to acute delirium. Reasons multifactorial as below. * Toxic metabolic encephalopathy * Acute E. coli UTI, on cefepime and vancomycin. * Bacteremia with coagulase-negative staph. * End-stage renal disease, on hemodialysis * CAD * CHF * Diabetes * Hyperlipidemia * Hypertension * Rheumatoid arthritis * Sleep apnea Plan: * Patient has delirium/metabolic encephalopathy due to acute UTI/bacteremia. * ID on board, patient on cefepime and vancomycin. * EEG was performed, which was abnormal due to presence of background slowing of moderate to severe degree, suggestive of generalized cerebral dysfunction as can be seen with toxic metabolic encephalopathy or related to diffuse structural brain abnormality. Clinical correlation is recommended. Presence of frequent triphasic waves also suggest metabolic encephalopathy. Clinical correlation for hepatic encephalopathy also recommended. Follow-up is recommended as clinically indicated. * Repeat prolonged EEG for 1 hour in the morning. * Patient is on cefepime, which can be associated with triphasic waves and metabolic encephalopathy. Suggest switching from cefepime to an alternate antibiotic. * Psychiatry consult for acute psychosis. * Patient's ABG with pH of 7.35, pCO2 49, pO2 75 and saturation 92% on 21% FiO2. * Other medical management as per IM. * Patient previously had normal B12, but quite elevated MMA 1.07, suggestive of B12 deficiency. Repeat B12 1299, TSH normal 1.440. * We will contact family members about her baseline functioning, and update about her condition. * Consider repeating chest x-ray. Will defer to IM.
--- NOTE | 2023-04-24 11:45 | P.PN ---
Subjective Patient is seen in follow-up for end-stage renal disease. She is maintained on hemodialysis on Saturday schedule. No problems with dialysis yesterday. Resting in bed. Confused. Hemodynamically stable. Vital signs are stable. General: No acute distress. HEENT: Head exam is unremarkable. LUNGS: No audible rhonchi or wheezes. HEART: Rate and Rhythm are regular. ABDOMEN: Nontender. EXTREMITITES: No edema. Objective - Vital Signs Vital signs: Vital Signs Temp 98.2 F 04/24/23 08:00 Pulse 87 04/24/23 08:00 Resp 19 04/24/23 08:00 BP 148/70 04/24/23 08:00 Pulse Ox 95 04/24/23 08:00 FiO2 21 04/22/23 23:27 Intake & Output 04/23/23 04/24/23 04/24/23 18:59 06:59 18:59 Intake Total 300 Output Total 1800 Balance -1500 Weight 110.586 kg Intake: Hemodialysis 300 Output: Hemodialysis 1800 Other: Voiding Method Diaper Diaper # Voids 0 1 - Labs CBC & Chem 7: 04/22/23 05:50 04/23/23 00:56 Labs: Abnormal Lab Results - Last 24 Hours (Table) 04/23/23 04/23/23 04/24/23 Range/Units 16:32 19:40 05:58 POC Glucose (mg/dL) 126 H 135 H 120 H (70-110) mg/dL 04/24/23 Range/Units 11:31 POC Glucose (mg/dL) 144 H (70-110) mg/dL Microbiology - Last 24 Hours (Table) 04/18/23 10:20 Blood Culture - Final Blood Assessment and Plan Plan: Assessment: 1. End-stage renal disease maintained on hemodialysis on Saturday schedule. 2. E. coli UTI on antibiotics. 3. Coag-negative staph bacteremia with concern for permacath infection versus contamination. ID following. Repeat cultures have been negative. 4. Chronic kidney disease mineral bone disease maintained on PhosLo. 5. Hypertension with chronic disease. Stable. 6. Diabetes mellitus. Plan: Hemodialysis tomorrow. Follow-up cultures.
--- NOTE | 2023-04-24 13:20 | EEG ---
ELECTROENCEPHALOGRAM REPORT PREAMBLE: This is a 67-year-old female with altered mental status. TECHNICAL SUMMARY: This is a 21-channel prolonged EEG performed for 1 hour, utilizing 10/20 international system with referential and bipolar montages. The recording was started from 6:41 a.m. on 04/24/2023 and completed at 7:43 a.m. on 04/24/2023. The condition of electrode was satisfactory throughout the study. DESCRIPTION: The recording starts with the presence of somewhat suppressed low amplitude background seen in bihemispheric region with significant myogenic activity in bifrontal and temporal regions. During middle and later part of the study, some fairly well- developed 6 to 7 hertz theta activity was seen, which was posterior dominant and slightly reactive to eye opening and closing. A lot of myogenic activity was seen throughout the study and the patient was very restless. Different stages of sleep were not seen. No focal or generalized epileptiform activity was seen. No seizure was recorded. The triphasic waves were not seen in this study. IMPRESSION: This is an abnormal EEG due to background slowing of [id number] degree, suggestive of generalized cerebral dysfunction as can be seen with toxic metabolic encephalopathy or related to diffuse structural brain abnormality. Clinical correlation is recommended. When compared to the study from 04/23/2023, the background has improved, and the triphasic waves have completely resolved. No epileptiform activity was seen. MMODL / IJN: [id number] /
[2023-04-24] MEDS ORDERED: VANCOMYCIN 1,750 MG in SODIUM CHLORIDE 0.9% 500 ML 500 ML IVPB ONE (14:00)
--- NOTE | 2023-04-24 14:55 | P.CN ---
Psychiatric Consult - . Consult date: 04/24/23 Consult:: 04/24/23 14:45 IDENTIFYING DATA: This patient is a 67-year-old female, currently from a group home, presented with altered mental status and lethargy decreased level of consciousness. REASON FOR REFERRAL: Psychiatry was consulted for "psychosis/delirium". HISTORY OF PRESENT ILLNESS: The patient presented to the hospital with altered mental status, lethargy and decreased level of consciousness. Patient has several significant medical comorbidities including end-stage renal disease currently on hemodialysis. Patient and he frequently has urinary tract infections. Patient is being followed by nephrology and also neurology. Assembly Cleaner spoke with neurologist about his findings and also impression. Patient apparently has been fairly confused, having a word salad and has been irritable, EEG has been performed twice, patient has also had 2 CAT scans. EEG apparently is showing moderate to severe generalized cerebral dysfunction which improved on the second time. Patient's computed tomography scan showed a chronic white matter changes and no acute changes. Patient was seen today at the bedside and was agreeable to speak to lyric writer. Patient was watching television. She correctly stated her name and last name. When asked about the date and also the location, patient responded in inappropriate ways and inappropriate responses. She stated "I want a handsome man" and was perseverating on "redirecting it". S he follows some commands from lyric writer and appeared to be finding it difficult to express what she was saying. When asked about hearing voices, hallucinations patient responded again inappropriately which did not make sense. Patient did the same thing when asked about suicidal or homicidal ideations intent or plan. Patient was unable to answer most questions appropriately and not able to give past psychiatric or social history. PAST PSYCHIATRIC HISTORY: Patient has a a history of several episodes of delirium in the past which usually become cleared up with hemodialysis. Patient is currently on Cymbalta 60 mg daily. Unable to gather further psychiatric history. 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 , left forearm fistula., friend Shirley states patient can stand to transfer but uses wheelchair mostly, November Admission 2022 for [facility]-malfunctioning dialysis catheter. Last Myocardial Infarction Date:: 2009 History of Any Multi-Drug Resistant Organisms: VRE Date of last positivie culture/infection: 01/17/22 MDRO Source:: Urine Past Surgical History: Adenoidectomy, Back Surgery, Cholecystectomy, Heart Catheterization With Stent, Tonsillectomy Additional Past Surgical History / Comment(s): PCI with stent 2009 & 2018, low back surgery, total R shoulder and total R knee arthroplasties, bilateral hand trigger finger surgeries, EGD, colonoscopy, L eye laser eye surgery for bleed, thyroidectomy(2 surgeries total to remove all of thyroid).lt tib fib fx-plate and screws. lt arm Dialysis fistula,heart stents x2,heart cath x2 Past Anesthesia/Blood Transfusion Reactions: No Reported Reaction, Motion Sickness Additional Past Anesthesia/Blood Transfusion Reaction / Comment(s): no hx blood transfusion Date of Last Stent Placement:: Past Psychological History: Anxiety, Depression Additional Psychological History / Comment(s): . Smoking Status: Never smoker Past Alcohol Use History: None Reported Past Drug Use History: None Reported ALLERGIES: as per EMR. CHEMICAL DEPENDENCY HISTORY: Unable to gather FAMILY PSYCHIATRIC/SUBSTANCE USE HISTORY: Unable to gather SOCIAL HISTORY: Patient is coming from a group home. Unable to gather further social history. MENTAL STATUS EXAM: General Appearance: Patient appears to be stated age is mildly overweight, alert, attempts to cooperate however his bizarre in her answers and appears frustrated at times. Patient appears to have fair hygiene and grooming wearing hospital gown with fair eye contact. Behavior: Patient is calmly lying in bed without any agitated behavior. Fair attention span. Unable to communicate clearly Speech: Patient's speech is word salad Mood/Affect: Unable to gather Suicidality/Homicidality: Unable to gather Perceptions: Unable to gather Though content/process: , Bizarre, loose associations. Preoccupation Memory and concentration: Oriented to name, not able to give date and location correctly. Only follow some commands. Judgment and insight: poor IMPRESSIONS: Delirium likely toxic-metabolic causes r/o Aphasia PLAN: -At this time patient DOES NOT meet criteria for inpatient psychiatric admission. -Patient DOES NOT have decision making capacity at this time and is unable to reason through and communicate/appreciate the risks, benefits and alternatives to treatment. -Delirium precautions recommended with patient including - avoiding use of narcotics and [employer] sedatives, limit anticholinergic medications when possible, frequent re-orientation, minimize use of restraints, open window shades during the day and close them at night -Would recommend the following medication changes/additions: Increase melatonin, scheduled for sleep. will try low dose of prolixin po 2 mg bid for delirium/psychosis. -Assembly Cleaner spoke with neurology to discuss care and patient's case. Recommended MRI brain to rule out any organic causes as suspecting possible aphasia. reviewed CTs and EEGs with neurologist and the reports -Communicated plan to patient's nurse -Will continue to follow along as needed -Please contact with any questions. 04/24/23 14:50
[2023-04-24 16:15] LABS: Glucose,Whole Blood 156 mg/dL (70-110)
--- NOTE | 2023-04-24 16:32 | P.PN ---
Subjective Progress Note Date: 04/24/23 This is a 67 rolled female who was recently admitted for [facility] with altered mental status with concerns of possible acute urinary tract infection. Culture showing E. coli with some sensitivities and repeat blood cultures have been ordered and pending including cultures from the dialysis catheter tip with concerns for infection coming from the source. Infectious disease is following and patient is maintained on IV antibiotics and awaiting finalized cultures. Patient's mentation continues to be somewhat confused although is slightly improved. Patient maintained on hemodialysis with nephrology following closely. Patient follows with nephrology outpatient and is maintained on dialysis Saturday/Saturday/Saturday. Patient is currently afebrile with no reported chest pain or shortness of breath. Patient is tolerating diet and has been selective on taking scheduled medications. 04/19/2023 Patient can tell she is in the hospital but she looks confused about her illness. She was refusing taking her medication today. She was a little bit agitated and sharp and at times. Sometimes she answers unrelated to the question, for example she starts talking about her son doing the year in [place] when she was asked about medical questions. She looks comfortable lying in bed. Lethargic. She denies any other complaints. No suprapubic tenderness. The right upper chest with no surrounding cellulitis. Graft of the left upper extremity looks healing. Repeat blood culture is pending while she remains on cefepime for E. coli UTI and positive blood culture with coagulase negative staph which could be contamination versus line infection 04/20/2023 Patient is more confused and drowsy today. As per staff this happened after she took Seroquel yesterday when she was more agitated and choking. Patient To verbal stimuli is helping go back to sleep. Patient is getting hemodialysis today. She is afebrile. Leukocytosis improving down to 11.6. Since yesterday she was covered with cefepime and vancomycin. Repeat CT of the brain is ordered Also going to consult neurologist for further recommendation. Repeat blood culture is still pending to check on her staff infection in the blood versus contamination. This patient is not eating because of her confusion would lower her insulin from 20 units at bedtime down to 5 units with insulin sliding scale to prevent hypoglycemia. Her glucose since yesterday morning was as low as 70 and going up to 248. We'll keep monitoring her closely 04/21/2023 Patient was agitated last night and she received Seroquel 50 mg and her usual dose of 12.5 this morning. She still looks sleepy but she went To verbal stimuli and answer some questions. She is noted to much blood sugars controlled around 70-110. C7 is negative. Neurology input is appreciated. EEG is pending for now. As well as vitamin B12 and TSH. We resumed her Cymbalta from tomorrow 60 mg daily. Also we stopped her Gabapentin 200 mg at bedtime tonight. We will keep monitoring closely. The same time she remains on IV vancomycin and cefepime for possible cellulitis and bacteremia 04/22/2023 Patient received Seroquel smaller doses at 12.5 mg last night compared to 50 mg the night before, this morning she was still sleepy. And this happens every day and that she wakes up. Most likely patient has toxic metabolic encephalopathy secondary to medication. Discontinued her Seroquel today and put her on melatonin when necessary as well as her home dose of Cymbalta and gabapentin 100 mg in the morning and 200 mg in the evening with a close monitoring of her mentation. Tremors on IV vancomycin for possible bacteremia, she has positive coagulase negative staph and blood culture which could be contamination but also she has permacath. She is also on Cefdinir for UTI. ALLERGY input is appreciated most likely metabolic/toxic encephalopathy. Ruled out seizure with EEG. Her sugar is controlled after without her Levemir dose to 5 mg at bedtime. 04/23/2023 Patient remains sleepy most of the day yesterday after she received Seroquel 50 mg, Seroquel 12.5 mg and gabapentin 100 mg gabapentin 200 mg several doses. This morning she still sleepy on BiPAP but she started waking up, she got agitated easily. She still drowsy. ABG done yesterday shows normal pH mildly elevated pCO2 explain the patient's symptoms. Level this morning is low. Neurology on the case and EGD is planned to be done today as well. Also patient undergoing hemodialysis. Discontinue Seroquel. Discontinue the night dose of gabapentin while keeping the morning was 100 mg. Patient also continued on Cymbalta discontinue Cornucopia, start the patient Tylenol No. 3 for pain control. Use melatonin when necessary for insomnia. Try to lower the sedatives to help patient mentation improved discussed with staff. continue with IV vancomycin and cefdinir 04/24/2023 Patient is seen in follow-up today with multiple medical consultations following including neurology undergoing extensive workup as patient mentation continues to be confused as patient is more awake. Patient to undergo MRI sometime today with neurology following closely. Repeat EEG prolonged pending at this time. Patient scheduled to receive dialysis tomorrow with nephrology following. Infectious disease following and blood cultures are negative. Urine cultures were positive for E. coli pansensitive and patient is continued on vancomycin at this time. Patient denies any chest pain or shortness of breath. Patient is eating and would recommend monitoring and supervision with meals. Patient is afebrile at this time. CODE STATUS was addressed with family and patient is no code. Plan will be to return to [facility] once stabilized and cleared by consultations. Review of systems: Constitutional: No reports of fatigue, fever, or chills Cardiovascular: No reports of chest pain or palpitations Respiratory: No reports of shortness of breath or cough GI: No reports of nausea, no reports of vomiting, no diarrhea : No reports of dysuria or retention Neurovascular: reports of generalized weakness All medications have been reviewed PHYSICAL EXAMINATION: GENERAL: The patient is alert and oriented x1-2, intermittently continues to be confused Well developed, well nourished. obese HEENT: Pupils are round and equally reacting to light. EOMI. no scleral icterus. No conjunctival pallor. Normocephalic, atraumatic. No pharyngeal erythema. No thyromegaly. CARDIOVASCULAR: S1 and S2 muffled PULMONARY: diminished breath sounds bilaterally with no wheezing or rhonchi noted. ABDOMEN: soft. Nontender on exam. obese. non-distended, normoactive bowel sounds. No palpable organomegaly. MUSCULOSKELETAL: No joint swelling or deformity. EXTREMITIES: No cyanosis, clubbing, or pedal edema. NEUROLOGICAL: Gross neurological examination did not reveal any focal deficits. Diffuse weakness SKIN: No rashes. Assessment: Change in mental status, multifactorial with acute urinary tract infection with features of sepsis, present on admission. Cultures showing E. coli Concerns for possible dialysis catheter infection, cultures are negative Altered mental status likely toxic/metabolic encephalopathy with concerns of possible CVA, undergoing neurological workup and MRI brain pending ESRD, maintained on hemodialysis Diabetes mellitus2, insulin-dependent History of asthma, not an exacerbation Obesity with a BMI 37.1 History of CHF with diastolic dysfunction, not an exacerbation, most recent EF is 50-55% History of coronary artery disease History of CVA/TIA Hyperlipidemia History of hypertension History of rheumatoid arthritis History of pulmonary embolism History of anxiety/depression GI prophylaxis DVT prophylaxis No code Plan: Patient is maintained on IV antibiotics in the form of vancomycin with i nfectious disease following. Blood cultures thus far remain negative Concern for dialysis catheter infection is low Mentation continues to be confused although more awake and having more conversation Psychiatry consulted and pending Neurology following undergoing extensive workup including prolonged EEG and MRI of the brain which is pending for today. Concerns for CVA as patient mentation is not back to baseline and continues with word salads and mimicking what she is seeing on TV Continue with Accu-Cheks before meals and at bedtime and continue sliding scale home medications reviewed and resumed as appropriate Continue with frequent reorientation and blinds and shades open during the day Plan is to return to [facility] once stabilized and cleared by consultations CODE STATUS was addressed and patient is no code The impression and plan of care has been dictated by Tamia Li, nurse practitioner as directed. Dr. Mireya MD I have performed a history and examination and MDM of this patient, discussed the same with the dictator, and agree with the dictator's assessment and plan as written ,documented as a scribe. Based on total visit time, I have performed more than 50% of the visit. Any additional findings or plans will be noted. Objective - Vital Signs Vital signs: Vital Signs Temp 98.2 F 04/24/23 08:00 Pulse 87 04/24/23 08:00 Resp 19 04/24/23 08:00 BP 148/70 04/24/23 08:00 Pulse Ox 95 04/24/23 08:00 FiO2 21 04/22/23 23:27 Intake & Output 04/23/23 04/24/23 04/24/23 18:59 06:59 18:59 Intake Total 300 Output Total 1800 Balance -1500 Weight 110.586 kg Intake: Hemodialysis 300 Output: Hemodialysis 1800 Other: Voiding Method Diaper # Voids 0 1 - Labs CBC & Chem 7: 04/22/23 05:50 04/23/23 00:56 Labs: Abnormal Lab Results - Last 24 Hours (Table) 04/23/23 04/23/23 04/23/23 Range/Units 11:14 16:32 19:40 POC Glucose (mg/dL) 117 H 126 H 135 H (70-110) mg/dL 04/24/23 Range/Units 05:58 POC Glucose (mg/dL) 120 H (70-110) mg/dL Microbiology - Last 24 Hours (Table) 04/18/23 10:20 Blood Culture - Final Blood
[2023-04-24] MEDS: CHOLECALCIFEROL 25 MCG (1000 IU) TABLET PO SCH (17:40)
[2023-04-24] MEDS: ASPIRIN 81 MG PO SCH (17:41)
[2023-04-24] MEDS: FOLIC ACID-VIT B COMPLEX-VIT C 1 CAP PO SCH (17:44)
[2023-04-24] MEDS: SODIUM CHLORIDE 0.9% 1,000 ML IV SCH (18:40)
[2023-04-24 21:08] LABS: Glucose,Whole Blood 142 mg/dL (70-110)
[2023-04-24] MEDS: INSULIN DETEMIR (LEVEMIR) 100 UNIT/ML SYR SQ SCH (22:13)
[2023-04-24] MEDS: MONTELUKAST 10 MG TAB PO SCH (22:14)
[2023-04-24] MEDS: CEFDINIR 300 MG CAP PO SCH (22:14)
[2023-04-24] MEDS: ATORVASTATIN 40 MG TAB PO SCH (22:15)
[2023-04-24] MEDS: MELATONIN 3 MG TABLET PO SCH (22:15)
[2023-04-25 05:28] LABS: Glucose,Whole Blood 149 mg/dL (70-110)
[2023-04-25] MEDS: IPRATROPIUM-ALBUTEROL 3 ML NEB INHALATION SCH ×4 (08:50→19:50)
[2023-04-25 11:06] LABS: Basophils # (A) 0.02 X 10*3/uL (0.00-0.10); Basophils % (A) 0.2 %; Eosinophils % (A) 3.4 %; HCT 35.4 % (37.2-46.3); HGB 11.5 d/dL (12.0-15.0); Lymphocytes # (A) 2.85 X 10*3/uL (0.90-5.00); Lymphocytes % (A) 31.8 %; MCH 31.4 pg (27.0-32.0); MCHC 32.5 d/dL (32.0-37.0); MCV 96.7 FL (80.0-97.0); Mean Platelet Volume 11.5 FL (9.5-12.2); Monocytes # (A) 0.92 X 10*3/uL (0.20-1.00); Monocytes % (A) 10.3 %; NRBC Per 100 WBC 0 X 10*3/uL (0.00-0.01); Neutrophils # (A) 4.78 X 10*3/uL (1.80-7.70); Neutrophils % (A) 53.4 %; Platelet Count 124 X 10*3/uL (140-440); RBC 3.66 X 10*6/uL (4.10-5.20); RDW 13.1 % (11.5-14.5); WBC 8.95 X 10*3/uL (4.50-10.00)
[2023-04-25 11:12] LABS: Glucose,Whole Blood 107 mg/dL (70-110)
[2023-04-25 11:33] LABS: Magnesium 2.4 mg/dL (1.5-2.4)
[2023-04-25 11:36] LABS: BUN/Creat Ratio 4.99 Ratio (12.00-20.00); Blood Urea Nitrogen 38.4 mg/dL (9.0-27.0); Calcium 9.6 mg/dL (8.7-10.3); Carbon Dioxide 23.7 mmol/L (21.6-31.8); Chloride 91 mmol/L (96-109); Glucose 129 mg/dL (70-110); Potassium 4.6 mmol/L (3.5-5.5); Sodium 130 mmol/L (135-145)
--- NOTE | 2023-04-25 11:45 | P.PN ---
Subjective Patient is seen in follow-up for end-stage renal disease. She is maintained on hemodialysis on Saturday schedule. Resting in bed. Confused. Hemodynamically stable. Vital signs are stable. General: No acute distress. HEENT: Head exam is unremarkable. LUNGS: No audible rhonchi or wheezes. HEART: Rate and Rhythm are regular. ABDOMEN: Nontender. EXTREMITITES: No edema. Objective - Vital Signs Vital signs: Vital Signs Temp 97.3 F L 04/25/23 07:16 Pulse 60 04/25/23 07:16 Resp 14 04/25/23 08:57 BP 105/68 04/25/23 07:16 Pulse Ox 94 L 04/25/23 07:16 FiO2 21 04/22/23 23:27 Intake & Output 04/24/23 04/25/23 04/25/23 18:59 06:59 18:59 Other: Voiding Method Diaper Diaper Diaper # Voids 0 1 - Labs CBC & Chem 7: 04/25/23 07:00 04/25/23 07:00 Labs: Abnormal Lab Results - Last 24 Hours (Table) 04/24/23 04/24/23 04/25/23 Range/Units 16:10 21:06 05:26 RBC (4.10-5.20) X 10*6/uL Hgb (12.0-15.0) d/dL Hct (37.2-46.3) % Plt Count (140-440) X 10*3/uL Sodium (135-145) mmol/L Chloride (96-109) mmol/L Anion Gap (4.00-12.00) mmol/L BUN (9.0-27.0) mg/dL Creatinine (0.6-1.5) mg/dL Est GFR (CKD-EPI) (>=60) BUN/Creatinine Ratio (12.00-20.00) Ratio Glucose (70-110) mg/dL POC Glucose (mg/dL) 156 H 142 H 149 H (70-110) mg/dL 04/25/23 04/25/23 Range/Units 07:00 07:00 RBC 3.66 L (4.10-5.20) X 10*6/uL Hgb 11.5 L (12.0-15.0) d/dL Hct 35.4 L (37.2-46.3) % Plt Count 124 L (140-440) X 10*3/uL Sodium 130 L (135-145) mmol/L Chloride 91 L (96-109) mmol/L Anion Gap 15.30 H (4.00-12.00) mmol/L BUN 38.4 H (9.0-27.0) mg/dL Creatinine 7.7 H* (0.6-1.5) mg/dL Est GFR (CKD-EPI) 5 L (>=60) BUN/Creatinine Ratio 4.99 L (12.00-20.00) Ratio Glucose 129 H (70-110) mg/dL POC Glucose (mg/dL) (70-110) mg/dL Assessment and Plan Plan: Assessment: 1. End-stage renal disease maintained on hemodialysis on Saturday schedule. 2. E. coli UTI on antibiotics. 3. Coag-negative staph bacteremia with concern for permacath infection versus contamination. ID following. Repeat cultures have been negative. 4. Chronic kidney disease mineral bone disease maintained on PhosLo. 5. Hypertension with chronic disease. Stable. 6. Diabetes mellitus. Plan: Currently seen while undergoing hemodialysis. Follow-up cultures. Check phosphorus level. Monitor vancomycin levels. Dose to be adjusted for renal function.
--- NOTE | 2023-04-25 11:46 | P.PN ---
Subjective Progress Note Date: 04/24/23 Patient was seen for a follow-up. Patient continues to be very confused. As I entered the room, patient states "a very handsome man". She then talks gibberish, seeing "they hit a bracelet to go to the redacted". "I don't want to crum my earring". "I did go there, did I". "We bombed [place]". Patient appears almost manicky at times. Patient is able to name all objects, and repeat. Patient has more psychosis rather than aphasia. Her pupils are equal, round and reacting, visual luna are full, face is symmetric. No pronator drift. Objective - Vital Signs Vital signs: Vital Signs Temp 97.7 F 04/24/23 14:00 Pulse 80 04/24/23 16:03 Resp 17 04/24/23 14:00 BP 132/64 04/24/23 14:00 Pulse Ox 97 04/24/23 14:00 FiO2 21 04/22/23 23:27 Intake & Output 04/23/23 04/24/23 04/24/23 18:59 06:59 18:59 Intake Total 300 Output Total 1800 Balance -1500 Weight 110.586 kg Intake: Hemodialysis 300 Output: Hemodialysis 1800 Other: Voiding Method Diaper Diaper # Voids 0 1 - Labs CBC & Chem 7: 04/22/23 05:50 04/23/23 00:56 Labs: Abnormal Lab Results - Last 24 Hours (Table) 04/23/23 04/23/23 04/24/23 Range/Units 16:32 19:40 05:58 POC Glucose (mg/dL) 126 H 135 H 120 H (70-110) mg/dL 04/24/23 04/24/23 Range/Units 11:31 16:10 POC Glucose (mg/dL) 144 H 156 H (70-110) mg/dL Microbiology - Last 24 Hours (Table) 04/18/23 10:20 Blood Culture - Final Blood Assessment and Plan Assessment: * Altered mental status, likely due to acute delirium. Reasons multifactorial as below. Patient has developed acute psychosis. Doubt aphasia. * Toxic metabolic encephalopathy * Acute E. coli UTI, on cefepime and vancomycin. * Bacteremia with coagulase-negative staph. * End-stage renal disease, on hemodialysis * CAD * CHF * Diabetes * Hyperlipidemia * Hypertension * Rheumatoid arthritis * Sleep apnea Plan: * Patient has delirium/metabolic encephalopathy due to acute UTI/bacteremia. Patient has developed psychosis. Doubt aphasia, as patient can name and repeat, and rest of the examination is nonfocal. Psychiatry recommending to rule out CVA. We will check MRI of the brain. * Patient currently on aspirin 81 mg, Plavix 75 mg. * Patient's last hemoglobin A1c 7.8 on 08/07/2022. * Lipid panel with cholesterol 120, LDL 57, HDL 28, triglycerides 140 on 11/30/2032. Continue Lipitor 40 mg daily. * ID on board, patient on cefepime and vancomycin. * Initial EEG was performed, which was abnormal due to presence of background slowing of moderate to severe degree, suggestive of generalized cerebral dysfunction as can be seen with toxic metabolic encephalopathy or related to diffuse structural brain abnormality. Clinical correlation is recommended. Presence of frequent triphasic waves also suggest metabolic encephalopathy. Clinical correlation for hepatic encephalopathy also recommended. Follow-up is recommended as clinically indicated. * Repeat EEG (prolonged 1 hour) performed today was abnormal due to background slowing of mild to moderate degree, suggestive of generalized cerebral d ysfunction as can be seen with toxic metabolic encephalopathy or related to diffuse structural brain abnormality. When compared to the study from 04/23/2023, left background has improved in the triphasic waves have completely resolved. No epileptiform activity was seen. * Psychiatry input appreciated. * Patient's ABG with pH of 7.35, pCO2 49, pO2 75 and saturation 92% on 21% FiO2. * Other medical management as per IM. * Patient previously had normal B12, but quite elevated MMA 1.07, suggestive of B12 deficiency. Repeat B12 1299, TSH normal 1.440.
[2023-04-25] MEDS: ISOSORBIDE MONONITRATE ER 30 MG TAB.ER.24H PO SCH ×2 (12:39→16:33)
[2023-04-25] MEDS: DULoxetine HCL 60 MG CAPSULE.DR PO SCH (12:40)
[2023-04-25] MEDS: allopurinoL 100 MG TAB PO SCH (12:40)
[2023-04-25] MEDS: CLOPIDOGREL 75 MG TAB PO SCH (12:40)
[2023-04-25] MEDS: GABAPENTIN 100 MG CAP PO SCH (12:41)
[2023-04-25] MEDS: LEVOTHYROXINE 88 MCG TAB PO SCH (12:42)
[2023-04-25] MEDS: FUROSEMIDE 20 MG TAB PO SCH ×2 (12:42→16:32)
[2023-04-25] MEDS: FAMOTIDINE 20 MG/2 ML VIAL IV SCH (12:43)
[2023-04-25] MEDS: CALCIUM ACETATE 667 MG TAB PO SCH ×4 (12:56→22:34)
[2023-04-25] MEDS: VITAMIN E TOPICAL SCH ×2 (13:01→16:34)
--- NOTE | 2023-04-25 14:33 | P.PN ---
Subjective Progress Note Date: 04/24/23 Principal diagnosis: Possible UTI and positive blood culture Patient is a 67-year-old female with a past medical history significant for end-stage renal disease maintained on dialysis Saturday through the [facility] , has been sent to the ER for evaluation of mental status changes weakness and decreased level of responsiveness did have a positive UA, blood cultures not coming back positive with staph epi On today's evaluation that is 04/24/2023, the patient continues to be afebrile , the patient is breathing comfortably on room air and denies any shortness of breath, the patient denies any chest pain and no cough or sputum production, patient denies abdominal pain and no nausea/vomiting or diarrhea , Patient white count is normalized to 7.87, creatinine 7.39 as of 04/22/2023 no lab draw today, blood culture with staph epi, repeat blood cultures so far negative Objective - Vital Signs Vital signs: Vital Signs Temp 98.2 F 04/24/23 08:00 Pulse 84 04/24/23 12:26 Resp 19 04/24/23 08:00 BP 148/70 04/24/23 08:00 Pulse Ox 95 04/24/23 08:00 FiO2 21 04/22/23 23:27 Intake & Output 04/23/23 04/24/23 04/24/23 18:59 06:59 18:59 Intake Total 300 Output Total 1800 Balance -1500 Weight 110.586 kg Intake: Hemodialysis 300 Output: Hemodialysis 1800 Other: Voiding Method Diaper Diaper # Voids 0 1 - Exam GENERAL DESCRIPTION: An elderly female lying in bed in no distress RESPIRATORY SYSTEM: Unlabored breathing , clear to auscultation anteriorly HEART: S1 S2 regular rate and rhythm , ABDOMEN: Soft , no tenderness EXTREMITIES: No edema feet - Labs CBC & Chem 7: 04/25/23 07:00 04/25/23 07:00 Labs: Abnormal Lab Results - Last 24 Hours (Table) 04/23/23 04/23/23 04/24/23 Range/Units 16:32 19:40 05:58 POC Glucose (mg/dL) 126 H 135 H 120 H (70-110) mg/dL 04/24/23 Range/Units 11:31 POC Glucose (mg/dL) 144 H (70-110) mg/dL Microbiology - Last 24 Hours (Table) 04/18/23 10:20 Blood Culture - Final Blood Assessment and Plan (1) Positive blood culture Current Visit: Yes Status: Acute Code(s): R78.81 - BACTEREMIA SNOMED Code(s): 387812342 (2) UTI (urinary tract infection) Current Visit: Yes Status: Acute Code(s): N39.0 - URINARY TRACT INFECTION, SITE NOT SPECIFIED SNOMED Code(s): 93112504 Plan: 1patient presented to hospital with weakness mental status changes which is likely multifactorial questionably metabolic at the patient not running any fever did not have any elevated white count patient abdominal was soft and exam ination chest x-ray was negative patient apparently still making good amount of urine at the patient have a Roper catheter draining clear urine and did have positive UA underlying UTI last night but not entirely excluded as no other obvious focus of infection 2-blood culture growing staph epi that is oxacillin sensitive with a question of possible contamination versus related to permacatheter, blood cultures has been obtained from dialysis catheter which is so far negative 3-patient is afebrile and white count has improved , patient will continue vancomycin along with oral Omnicef while waiting for improvement in her mentation and monitor the patient clinical course closely Dictation was produced using [employer] dictation software. please excuse any grammatical, word or spelling errors. Time with Patient: Less than 30
--- NOTE | 2023-04-25 14:34 | P.PN ---
Subjective Progress Note Date: 04/25/23 Principal diagnosis: Possible UTI and positive blood culture Patient is a 67-year-old female with a past medical history significant for end-stage renal disease maintained on dialysis Saturday through the [facility] , has been sent to the ER for evaluation of mental status changes weakness and decreased level of responsiveness did have a positive UA, blood cultures not coming back positive with staph epi On today's evaluation that is 04/25/2023, the patient denies any fever or any chills , the patient is breathing comfortably on room air and no need for supplemental oxygen, the patient denies any chest pain or cough and no sputum production, patient denies abdominal pain and no nausea/vomiting or diarrhea , patient mentioned feeling better wants to go home Patient white count is 8.95, creatinine 7.7, blood culture with staph epi, repeat blood cultures so far negative Objective - Vital Signs Vital signs: Vital Signs Temp 98.2 F 04/25/23 13:58 Pulse 83 04/25/23 13:58 Resp 18 04/25/23 13:58 BP 117/58 04/25/23 13:58 Pulse Ox 93 L 04/25/23 13:58 FiO2 21 04/22/23 23:27 Intake & Output 04/24/23 04/25/23 04/25/23 18:59 06:59 18:59 Intake Total 700 Output Total 1300 Balance -600 Weight 110.586 kg Intake: Oral 400 Hemodialysis 300 Output: Hemodialysis 1300 Other: Voiding Method Diaper Diaper Diaper # Voids 0 1 - Exam GENERAL DESCRIPTION: An elderly female lying in bed in no distress RESPIRATORY SYSTEM: Unlabored breathing , clear to auscultation anteriorly HEART: S1 S2 regular rate and rhythm , ABDOMEN: Soft , no tenderness EXTREMITIES: No edema feet - Labs CBC & Chem 7: 04/25/23 07:00 04/25/23 07:00 Labs: Abnormal Lab Results - Last 24 Hours (Table) 04/24/23 04/24/23 04/25/23 Range/Units 16:10 21:06 05:26 RBC (4.10-5.20) X 10*6/uL Hgb (12.0-15.0) d/dL Hct (37.2-46.3) % Plt Count (140-440) X 10*3/uL Sodium (135-145) mmol/L Chloride (96-109) mmol/L Anion Gap (4.00-12.00) mmol/L BUN (9.0-27.0) mg/dL Creatinine (0.6-1.5) mg/dL Est GFR (CKD-EPI) (>=60) BUN/Creatinine Ratio (12.00-20.00) Ratio Glucose (70-110) mg/dL POC Glucose (mg/dL) 156 H 142 H 149 H (70-110) mg/dL 04/25/23 04/25/23 Range/Units 07:00 07:00 RBC 3.66 L (4.10-5.20) X 10*6/uL Hgb 11.5 L (12.0-15.0) d/dL Hct 35.4 L (37.2-46.3) % Plt Count 124 L (140-440) X 10*3/uL Sodium 130 L (135-145) mmol/L Chloride 91 L (96-109) mmol/L Anion Gap 15.30 H (4.00-12.00) mmol/L BUN 38.4 H (9.0-27.0) mg/dL Creatinine 7.7 H* (0.6-1.5) mg/dL Est GFR (CKD-EPI) 5 L (>=60) BUN/Creatinine Ratio 4.99 L (12.00-20.00) Ratio Glucose 129 H (70-110) mg/dL POC Glucose (mg/dL) (70-110) mg/dL Assessment and Plan (1) Positive blood culture Current Visit: Yes Status: Acute Code(s): R78.81 - BACTEREMIA SNOMED Code(s): 748492572 (2) UTI (urinary tract infection) Current Visit: Yes Status: Acute Code(s): N39.0 - URINARY TRACT INFECTION, SITE NOT SPECIFIED SNOMED Code(s): 99625191 Plan: 1patient presented to hospital with weakness mental status changes which is likely multifactorial questionably metabolic at the patient not running any fever did not have any elevated white count patient abdominal was soft and examination chest x-ray was negative patient apparently still making good amount of urine at the patient have a Roper catheter draining clear urine and did have positive UA underlying UTI last night but not entirely excluded as no other obvious focus of infection 2-blood culture growing staph epi that is oxacillin sensitive with a question of possible contamination versus related to permacatheter, blood cultures has been obtained from dialysis catheter which is so far negative 3-patient is afebrile and white count has improved , patient to vancomycin pharmacy to dose to finish a two-week course of therapy along with oral Omnicef few more days Dictation was produced using [employer] dictation software. please excuse any grammatical, word or spelling errors. Time with Patient: Less than 30
[2023-04-25] MEDS: SODIUM CHLORIDE 0.9% 1,000 ML IV SCH (15:22)
--- NOTE | 2023-04-25 16:05 | MR ---
EXAMINATION TYPE: MR brain wo con DATE OF EXAM: 04/25/2023 COMPARISON: CT brain 04/20/2023 HISTORY: Evaluate for CVA, Aphasia CONTRAST: Performed utilizing 0 mL intravenous Gadavist gadolinium contrast. TECHNIQUE: Multiplanar, multiecho imaging on a 3.0 Kim magnet is performed through the brain. Stud y is performed within 24 hours of arrival to the hospital. The craniovertebral junction is normal. The pituitary is normal. Diffusion-weighted imaging is performed. No abnormal hyperintensity is present to suggest an acute i ntracranial infarct or acute ischemic change. There is a punctate subcortical white matter change in the left frontal lobe. Punctate hyperintensiti es within the subcortical white matter right parietal lobe. This is not out of proportion to the rosi ent's age. Findings are nonspecific. This could be related to chronic white matter ischemic changes, migraine headaches, vasculitis, multiple sclerosis. Ventricles and sulci are mildly prominent for the patient age. IMPRESSION: 1. No acute intracranial process. No acute ischemic changes identified. 2. Two small punctate white matter changes are nonspecific
[2023-04-25 16:15] LABS: Glucose,Whole Blood 222 mg/dL (70-110)
[2023-04-25] MEDS: FOLIC ACID-VIT B COMPLEX-VIT C 1 CAP PO SCH (16:32)
[2023-04-25] MEDS: CHOLECALCIFEROL 25 MCG (1000 IU) TABLET PO SCH (16:32)
[2023-04-25] MEDS: ASPIRIN 81 MG PO SCH (16:32)
[2023-04-25] MEDS: carvediloL 12.5 MG TAB PO SCH (16:33)
[2023-04-25 19:39] LABS: Glucose,Whole Blood 218 mg/dL (70-110)
[2023-04-25] MEDS: MONTELUKAST 10 MG TAB PO SCH (22:35)
[2023-04-25] MEDS: ATORVASTATIN 40 MG TAB PO SCH (22:36)
[2023-04-25] MEDS: MELATONIN 3 MG TABLET PO SCH (22:37)
[2023-04-25] MEDS: CEFDINIR 300 MG CAP PO SCH (22:38)
[2023-04-25] MEDS: INSULIN DETEMIR (LEVEMIR) 100 UNIT/ML SYR SQ SCH (22:38)
[2023-04-26 01:54] VITALS: RESP 18
[2023-04-26 06:04] LABS: Glucose,Whole Blood 164 mg/dL (70-110)
--- NOTE | 2023-04-26 06:54 | P.PN ---
Subjective Progress Note Date: 04/25/23 This is a 67 rolled female who was recently admitted for [facility] with altered mental status with concerns of possible acute urinary tract infection. Culture showing E. coli with some sensitivities and repeat blood cultures have been ordered and pending including cultures from the dialysis catheter tip with concerns for infection coming from the source. Infectious disease is following and patient is maintained on IV antibiotics and awaiting finalized cultures. Patient's mentation continues to be somewhat confused although is slightly improved. Patient maintained on hemodialysis with nephrology following closely. Patient follows with nephrology outpatient and is maintained on dialysis Saturday/Saturday/Saturday. Patient is currently afebrile with no reported chest pain or shortness of breath. Patient is tolerating diet and has been selective on taking scheduled medications. 04/19/2023 Patient can tell she is in the hospital but she looks confused about her illness. She was refusing taking her medication today. She was a little bit agitated and sharp and at times. Sometimes she answers unrelated to the question, for example she starts talking about her son doing the year in [place] when she was asked about medical questions. She looks comfortable lying in bed. Lethargic. She denies any other complaints. No suprapubic tenderness. The right upper chest with no surrounding cellulitis. Graft of the left upper extremity looks healing. Repeat blood culture is pending while she remains on cefepime for E. coli UTI and positive blood culture with coagulase negative staph which could be contamination versus line infection 04/20/2023 Patient is more confused and drowsy today. As per staff this happened after she took Seroquel yesterday when she was more agitated and choking. Patient To verbal stimuli is helping go back to sleep. Patient is getting hemodialysis today. She is afebrile. Leukocytosis improving down to 11.6. Since yesterday she was covered with cefepime and vancomycin. Repeat CT of the brain is ordered Also going to consult neurologist for further recommendation. Repeat blood culture is still pending to check on her staff infection in the blood versus contamination. This patient is not eating because of her confusion would lower her insulin from 20 units at bedtime down to 5 units with insulin sliding scale to prevent hypoglycemia. Her glucose since yesterday morning was as low as 70 and going up to 248. We'll keep monitoring her closely 04/21/2023 Patient was agitated last night and she received Seroquel 50 mg and her usual dose of 12.5 this morning. She still looks sleepy but she went To verbal stimuli and answer some questions. She is noted to much blood sugars controlled around 70-110. C7 is negative. Neurology input is appreciated. EEG is pending for now. As well as vitamin B12 and TSH. We resumed her Cymbalta from tomorrow 60 mg daily. Also we stopped her Gabapentin 200 mg at bedtime tonight. We will keep monitoring closely. The same time she remains on IV vancomycin and cefepime for possible cellulitis and bacteremia 04/22/2023 Patient received Seroquel smaller doses at 12.5 mg last night compared to 50 mg the night before, this morning she was still sleepy. And this happens every day and that she wakes up. Most likely patient has toxic metabolic encephalopathy secondary to medication. Discontinued her Seroquel today and put her on melatonin when necessary as well as her home dose of Cymbalta and gabapentin 100 mg in the morning and 200 mg in the evening with a close monitoring of her mentation. Tremors on IV vancomycin for possible bacteremia, she has positive coagulase negative staph and blood culture which could be contamination but also she has permacath. She is also on Cefdinir for UTI. ALLERGY input is appreciated most likely metabolic/toxic encephalopathy. Ruled out seizure with EEG. Her sugar is controlled after without her Levemir dose to 5 mg at bedtime. 04/23/2023 Patient remains sleepy most of the day yesterday after she received Seroquel 50 mg, Seroquel 12.5 mg and gabapentin 100 mg gabapentin 200 mg several doses. This morning she still sleepy on BiPAP but she started waking up, she got agitated easily. She still drowsy. ABG done yesterday shows normal pH mildly elevated pCO2 explain the patient's symptoms. Level this morning is low. Neurology on the case and EGD is planned to be done today as well. Also patient undergoing hemodialysis. Discontinue Seroquel. Discontinue the night dose of gabapentin while keeping the morning was 100 mg. Patient also continued on Cymbalta discontinue [place], start the patient Tylenol No. 3 for pain control. Use melatonin when necessary for insomnia. Try to lower the sedatives to help patient mentation improved discussed with staff. continue with IV vancomycin and cefdinir 04/24/2023 Patient is seen in follow-up today with multiple medical consultations following including neurology undergoing extensive workup as patient mentation continues to be confused as patient is more awake. Patient to undergo MRI sometime today with neurology following closely. Repeat EEG prolonged pending at this time. Patient scheduled to receive dialysis tomorrow with nephrology following. Infectious disease following and blood cultures are negative. Urine cultures were positive for E. coli pansensitive and patient is continued on vancomycin at this time. Patient denies any chest pain or shortness of breath. Patient is eating and would recommend monitoring and supervision with meals. Patient is afebrile at this time. CODE STATUS was addressed with family and patient is no code. Plan will be to return to [facility] once stabilized and cleared by consultations. 04/25/2023 Patient is seen and evaluated this morning and mentation is improved although lethargic. Patient is not speaking out or having hallucinations this morning. Oral intake has been poor to fair need encouragement with meals. Patient reports not much of an appetite. Patient receiving dialysis currently and will continue on current regimen. Infectious disease following along with neurology and patient is maintained on antibiotics and will likely continue outpatient dialysis antibiotics with oral antibiotics on discharge. Plan is for MRI of the brain this afternoon which is pending. Will discuss further with neurology as well as infectious disease on discharge planning. Patient is afebrile with no reports of chest pain or shortness of breath. Review of systems: Constitutional: reports of fatigue, no fever, or chills Cardiovascular: No reports of chest pain or palpitations Respiratory: No reports of shortness of breath or cough GI: No reports of nausea, no reports of vomiting, no diarrhea : No reports of dysuria or retention Neurovascular: reports of generalized weakness All medications have been reviewed PHYSICAL EXAMINATION: GENERAL: The patient is alert and oriented x2, less confused today, lethargic Well developed, well nourished. obese HEENT: Pupils are round and equally reacting to light. EOMI. no scleral icterus. No conjunctival pallor. Normocephalic, atraumatic. No pharyngeal erythema. No thyromegaly. CARDIOVASCULAR: S1 and S2 muffled PULMONARY: diminished breath sounds bilaterally with no wheezing or rhonchi noted. ABDOMEN: soft. Nontender on exam. obese. non-distended, normoactive bowel so unds. No palpable organomegaly. MUSCULOSKELETAL: No joint swelling or deformity. EXTREMITIES: No cyanosis, clubbing, or pedal edema. NEUROLOGICAL: Gross neurological examination did not reveal any focal deficits. Diffuse weakness SKIN: No rashes. Assessment: Change in mental status, multifactorial with acute urinary tract infection with features of sepsis, present on admission. Cultures showing E. coli Concerns for possible dialysis catheter infection, cultures are negative Altered mental status likely toxic/metabolic encephalopathy with concerns of possible CVA, undergoing neurological workup and MRI brain pending ESRD, maintained on hemodialysis Diabetes mellitus2, insulin-dependent History of asthma, not an exacerbation Obesity with a BMI 37.1 History of CHF with diastolic dysfunction, not an exacerbation, most recent EF is 50-55% History of coronary artery disease History of CVA/TIA Hyperlipidemia History of hypertension History of rheumatoid arthritis History of pulmonary embolism History of anxiety/depression GI prophylaxis DVT prophylaxis No code Plan: Patient is maintained on IV antibiotics in the form of vancomycin with infectious disease following. Blood cultures thus far remain negative Concern for dialysis catheter infection is low Mentation continues to be confused although more awake today and less confused. Fatigues easily Psychiatry consulted and following making medication recommendations Neurology following undergoing extensive workup including prolonged EEG and MRI of the brain which is pending for today. Concerns for CVA as patient mentation is not back to baseline Continue with Accu-Cheks before meals and at bedtime and continue sliding scale home medications reviewed and resumed as appropriate Continue with frequent reorientation and blinds and shades open during the day Patient not eating very well and reports not much of an appetite. Encouraged oral intake Will follow-up on repeat labs, replace electrolytes per protocol Plan is to return to [facility] once stabilized and cleared by consultations CODE STATUS was addressed and patient is no code The impression and plan of care has been dictated by Tamia Li, nurse practitioner as directed. Dr. Mireya MD I have performed a history and examination and MDM of this patient, discussed the same with the dictator, and agree with the dictator's assessment and plan as written ,documented as a scribe. Based on total visit time, I have performed more than 50% of the visit. Any additional findings or plans will be noted. Objective - Vital Signs Vital signs: Vital Signs Temp 97.3 F L 04/25/23 07:16 Pulse 60 04/25/23 07:16 Resp 14 04/25/23 08:57 BP 105/68 04/25/23 07:16 Pulse Ox 94 L 04/25/23 07:16 FiO2 21 04/22/23 23:27 Intake & Output 04/24/23 04/25/23 04/25/23 18:59 06:59 18:59 Other: Voiding Method Diaper Diaper Diaper # Voids 0 1 - Labs CBC & Chem 7: 04/25/23 07:00 04/25/23 07:00 Labs: Abnormal Lab Results - Last 24 Hours (Table) 04/24/23 04/24/23 04/25/23 Range/Units 16:10 21:06 05:26 RBC (4.10-5.20) X 10*6/uL Hgb (12.0-15.0) d/dL Hct (37.2-46.3) % Plt Count (140-440) X 10*3/uL Sodium (135-145) mmol/L Chloride (96-109) mmol/L Anion Gap (4.00-12.00) mmol/L BUN (9.0-27.0) mg/dL Creatinine (0.6-1.5) mg/dL Est GFR (CKD-EPI) (>=60) BUN/Creatinine Ratio (12.00-20.00) Ratio Glucose (70-110) mg/dL POC Glucose (mg/dL) 156 H 142 H 149 H (70-110) mg/dL 04/25/23 04/25/23 Range/Units 07:00 07:00 RBC 3.66 L (4.10-5.20) X 10*6/uL Hgb 11.5 L (12.0-15.0) d/dL Hct 35.4 L (37.2-46.3) % Plt Count 124 L (140-440) X 10*3/uL Sodium 130 L (135-145) mmol/L Chloride 91 L (96-109) mmol/L Anion Gap 15.30 H (4.00-12.00) mmol/L BUN 38.4 H (9.0-27.0) mg/dL Creatinine 7.7 H* (0.6-1.5) mg/dL Est GFR (CKD-EPI) 5 L (>=60) BUN/Creatinine Ratio 4.99 L (12.00-20.00) Ratio Glucose 129 H (70-110) mg/dL POC Glucose (mg/dL) (70-110) mg/dL
[2023-04-26 07:08] LABS: African American GFR (CKD) 8 (>60 ml/min/1.73 sqM); Anion Gap 14 mmol/L; Blood Urea Nitrogen 34 mg/dL (7-17); Calcium 9.5 mg/dL (8.4-10.2); Carbon Dioxide 24 mmol/L (22-30); Chloride 93 mmol/L (98-107); Glucose 154 mg/dL (74-99); Magnesium 2.1 mg/dL (1.6-2.3); Non-African American GFR(CKD) 7 (>60 ml/min/1.73 sqM); Potassium 4.9 mmol/L (3.5-5.1); Sodium 131 mmol/L (137-145)
[2023-04-26 07:13] LABS: Vancomycin,Random 25.1 ug/mL
[2023-04-26] MEDS: IPRATROPIUM-ALBUTEROL 3 ML NEB INHALATION SCH ×3 (08:13→15:53)
[2023-04-26 09:26] LABS: Basophils % (A) 0 %; Eosinophils # (A) 0.3 k/uL (0-0.7); Eosinophils % (A) 3 %; HCT 37.8 % (34.0-46.0); HGB 12.3 gm/dL (11.4-16.0); Lymphocytes # (A) 2.4 k/uL (1.0-4.8); Lymphocytes % (A) 28 %; MCH 31.8 pg (25.0-35.0); MCHC 32.4 g/dL (31.0-37.0); MCV 98.3 fL (80.0-100.0); Mean Platelet Volume 10.5; Monocytes # (A) 0.5 k/uL (0-1.0); Monocytes % (A) 6 %; Neutrophils # (A) 5.3 k/uL (1.3-7.7); Neutrophils % (A) 61 %; Platelet Count 122 k/uL (150-450); RBC 3.85 m/uL (3.80-5.40); RDW 13.4 % (11.5-15.5); WBC 8.7 k/uL (3.8-10.6)
[2023-04-26] MEDS: CALCIUM ACETATE 667 MG TAB PO SCH (09:43)
[2023-04-26] MEDS: allopurinoL 100 MG TAB PO SCH (09:44)
[2023-04-26] MEDS: carvediloL 12.5 MG TAB PO SCH (09:44)
[2023-04-26] MEDS: CLOPIDOGREL 75 MG TAB PO SCH (09:45)
[2023-04-26] MEDS: GABAPENTIN 100 MG CAP PO SCH (09:46)
[2023-04-26] MEDS: FUROSEMIDE 20 MG TAB PO SCH (09:46)
[2023-04-26] MEDS: LEVOTHYROXINE 88 MCG TAB PO SCH (09:47)
[2023-04-26] MEDS: ISOSORBIDE MONONITRATE ER 30 MG TAB.ER.24H PO SCH (09:47)
[2023-04-26] MEDS: DULoxetine HCL 60 MG CAPSULE.DR PO SCH (09:50)
[2023-04-26] MEDS: FAMOTIDINE 20 MG/2 ML VIAL IV SCH (09:51)
[2023-04-26] MEDS: VITAMIN E TOPICAL SCH (10:37)
[2023-04-26 11:20] LABS: Glucose,Whole Blood 247 mg/dL (70-110)
--- NOTE | 2023-04-26 11:28 | P.PN ---
Subjective Patient is seen in follow-up for end-stage renal disease. She is maintained on hemodialysis on Saturday schedule. Sitting up in chair. Mentation improved. Hemodynamically stable. Vital signs are stable. General: No acute distress. HEENT: Head exam is unremarkable. LUNGS: No audible rhonchi or wheezes. HEART: Rate and Rhythm are regular. ABDOMEN: Nontender. EXTREMITITES: No edema. Objective - Vital Signs Vital signs: Vital Signs Temp 98.0 F 04/26/23 07:15 Pulse 68 04/26/23 11:20 Resp 18 04/26/23 07:15 BP 137/84 04/26/23 07:15 Pulse Ox 96 04/26/23 07:15 FiO2 21 04/26/23 02:25 Intake & Output 04/25/23 04/26/23 04/26/23 18:59 06:59 18:59 Intake Total 700 Output Total 1300 Balance -600 Weight 110.586 kg Intake: Oral 400 Hemodialysis 300 Output: Hemodialysis 1300 Other: Voiding Method Diaper Diaper Incontinent # Voids 0 2 - Labs CBC & Chem 7: 04/26/23 07:34 04/26/23 06:46 Labs: Abnormal Lab Results - Last 24 Hours (Table) 04/25/23 04/25/23 04/25/23 Range/Units 07:00 07:00 16:12 Plt Count (150-450) k/uL Sodium 130 L (135-145) mmol/L Chloride 91 L (96-109) mmol/L Anion Gap 15.30 H (4.00-12.00) mmol/L BUN 38.4 H (9.0-27.0) mg/dL Creatinine 7.7 H* (0.6-1.5) mg/dL Est GFR (CKD-EPI) 5 L (>=60) BUN/Creatinine Ratio 4.99 L (12.00-20.00) Ratio Glucose 129 H (70-110) mg/dL POC Glucose (mg/dL) 222 H (70-110) mg/dL Phosphorus 5.6 H (2.4-5.1) mg/dL 04/25/23 04/26/23 04/26/23 Range/Units 19:37 06:03 06:46 Plt Count (150-450) k/uL Sodium 131 L (135-145) mmol/L Chloride 93 L (96-109) mmol/L Anion Gap (4.00-12.00) mmol/L BUN 34 H (9.0-27.0) mg/dL Creatinine 5.98 H (0.6-1.5) mg/dL Est GFR (CKD-EPI) (>=60) BUN/Creatinine Ratio (12.00-20.00) Ratio Glucose 154 H (70-110) mg/dL POC Glucose (mg/dL) 218 H 164 H (70-110) mg/dL Phosphorus (2.4-5.1) mg/dL 04/26/23 04/26/23 Range/Units 07:34 11:19 Plt Count 122 L (150-450) k/uL Sodium (135-145) mmol/L Chloride (96-109) mmol/L Anion Gap (4.00-12.00) mmol/L BUN (9.0-27.0) mg/dL Creatinine (0.6-1.5) mg/dL Est GFR (CKD-EPI) (>=60) BUN/Creatinine Ratio (12.00-20.00) Ratio Glucose (70-110) mg/dL POC Glucose (mg/dL) 247 H (70-110) mg/dL Phosphorus (2.4-5.1) mg/dL Assessment and Plan Plan: Assessment: 1. End-stage renal disease maintained on hemodialysis on Saturday schedule. 2. E. coli UTI on antibiotics. 3. Coag-negative staph bacteremia with concern for permacath infection versus contamination. ID following. Repeat cultures have been negative. 4. Chronic kidney disease mineral bone disease maintained on PhosLo. Phosphorus level 2.1. 5. Hypertension with chronic disease. Stable. 6. Diabetes mellitus. Plan: Hemodialysis tomorrow. Hold PhosLo for now. Monitor vancomycin levels. Dose to be adjusted for renal function.
[2023-04-26 13:23] VITALS: BP 119/57; TEMP 97.7
--- NOTE | 2023-04-26 13:58 | P.DS ---
Providers Date of admission: 04/14/23 13:45 Expected date of discharge: 04/26/23 Attending physician: Shazia Shah Consults: 04/14/23 13:45 Consult Physician Routine Consulting Provider: Merary Spencer Consult Reason/Comments: ESRD Do you want consulting provider notified?: Yes 04/15/23 09:12 Consult Physician Urgent Consulting Provider: Chioma Heredia Consult Reason/Comments: uti, ams Do you want consulting provider notified?: Yes 04/20/23 12:34 Consult Physician Routine Consulting Provider: Ade Denise Consult Reason/Comments: ams Do you want consulting provider notified?: Yes 04/23/23 18:18 Consult Physician Routine Consulting Provider: Landen Brownlee Consult Reason/Comments: severe psychosis/delirium Do you want consulting provider notified?: Yes Primary care physician: Cristiano East [place] [facility] Course: Final diagnosis Change in mental status, multifactorial with acute urinary tract infection with features of sepsis, present on admission. Cultures showing E. coli Concerns for possible dialysis catheter infection, cultures are negative Altered mental status likely toxic/metabolic encephalopathy with concerns of possible CVA versus TIA, CVA ruled out, MRI was negative, mentation improved ESRD, maintained on hemodialysis Diabetes mellitus2, insulin-dependent History of asthma, not an exacerbation Obesity with a BMI 37.1 History of CHF with diastolic dysfunction, not an exacerbation, most recent EF is 50-55% History of coronary artery disease History of CVA/TIA Hyperlipidemia History of hypertension History of rheumatoid arthritis History of pulmonary embolism History of anxiety/depression GI prophylaxis DVT prophylaxis No code Discharge disposition Patient is being discharged in a stable condition with guarded prognosis to [facility]. Patient will follow-up with Dr. East in the outpatient setting upon discharge. Patient is to continue with hemodialysis as scheduled on Saturday//Saturday and will be receiving vancomycin during dialysis with pharmacy to dose including labs for CRP, CK, CBC, Vanco trough, CMP for a two- week course. Total time taken is greater than 35 minutes. Hospital course This is a 67-year-old female who was recently admitted with mental status changes and concerns of possible acute urinary tract infection. Cultures finalized showing E. coli with sensitivities and blood cultures have been negative. There was suspicion of possible dialysis catheter infection although cultures from their have been negative as well. Patient underwent extensive neurological workup including MRI of the brain which was negative for CVA. Possible TIA not excluded and patient's mentation is much improved back to baseline. Recommend limiting narcotic use waxes and wanes and becomes worse with narcotics. Patient will continue on Omnicef for the next 4 days to complete the course as well as vancomycin with dialysis sessions for 2 week course with pharmacy to dose including labs. Patient has been cleared by consultations for discharge and will be going to [facility] where she resides. Please refer to consultation notes for further HPI. Currently no reports of chest pain, shortness of breath, or palpitations. Patient is afebrile. No reports of nausea or vomiting and patient is tolerating diet. CODE STATUS was addressed with family and agreeable with No CODE STATUS. Patient will be going to [facility]. Physical exam: Gen: This is a 67-year-old female who was awake, alert and oriented 3, well- developed, well-nourished, obese HEENT: Head is atraumatic, normocephalic. Pupils equal, round. Sclerae is anicteric. NECK: Supple. No JVD. No lymphadenopathy. No thyromegaly. LUNGS: Clear to auscultation. No wheezes or rhonchi. No intercostal retractions. HEART: Regular rate and rhythm. No murmur. ABDOMEN: Soft. obese. Bowel sounds are present. No masses. No tenderness. EXTREMITIES: No pedal edema. No calf tenderness. NEUROLOGICAL: Patient is awake, alert and oriented x3. Cranial nerves 2 through 12 are grossly intact. Please refer to medication reconciliation sheet for a list of medications. The impression and plan of care has been dictated by Tamia Li, Nurse Practitioner as directed. Dr. Mireya MD I have performed a history and examination and MDM of this patient, discussed the same with the dictator, and agree with the dictator's assessment and plan as written ,documented as a scribe. Based on total visit time, I have performed more than 50% of the visit. Patient Condition at Discharge: Fair Plan - Discharge Summary Discharge Rx Participant: No New Discharge Prescriptions: New Melatonin 6 mg PO HS tab Cefdinir [Omnicef] 300 mg PO HS 4 Days #4 cap Ipratropium-Albuterol Nebulize [Duoneb 0.5 mg-3 mg/3 ml Soln] 3 ml INHALATION RT-QID each fluPHENAZine [Prolixin] 2 mg PO BID tab Acetaminophen-Codeine 300-30mg [Tylenol w/codeine #3] 1 each PO Q8H PRN #3 tab PRN Reason: Pain Vancomycin 1,750 mg IVPB Q48H 14 Days #14 each Continue Montelukast [Singulair] 10 mg PO HS Levothyroxine Sodium [Synthroid] 175 mcg PO DAILY@0800 Atorvastatin [Lipitor] 40 mg PO HS@2100 Cholecalciferol [Vitamin D3 (25 Mcg = 1000 Iu)] 50 mcg PO DAILY@1700 Acetaminophen Tab [Tylenol] 650 mg PO Q4H PRN PRN Reason: Fever And/ Or Pain Aspirin EC [Ecotrin Low Dose] 81 mg PO DAILY@1700 Clopidogrel [Plavix] 75 mg PO DAILY@0800 Ondansetron [Zofran] 4 mg PO BID PRN PRN Reason: Nausea-takes w/dialysis Isosorbide Mononitrate ER [Imdur] 30 mg PO BID@0800,1700 allopurinoL [Zyloprim] 100 mg PO DAILY@0800 Loperamide [Imodium] 2 mg PO QID PRN PRN Reason: Diarrhea guaiFENesin SYRUP 100MG/5ML [Robitussin] 200 mg PO Q4H PRN PRN Reason: Cough carvediloL [Coreg] 12.5 mg PO DAILY@1700 Insulin Aspart [NovoLOG] See Protocol SQ ACHS Sennosides-Docusate Sodium [Senokot-S] 1 tab PO BID@0800,1700 Gabapentin [Neurontin] 100 mg PO DAILY@0800 #2 cap DULoxetine HCL [Cymbalta] 60 mg PO DAILY@0800 Calcium Acetate [PhosLo] 1,334 mg PO AC-TID Furosemide [Lasix] 60 mg PO BID@0800,1700 carvediloL [Coreg] 12.5 mg PO SUMOWEFR@0800 Ipratropium-Albuterol Nebulize [Duoneb 0.5 mg-3 mg/3 ml Soln] 3 ml INHALATION RT-Q6H PRN PRN Reason: Shortness Of Breath Hydrocortisone Cream [Hydrocortisone 1% Cream] 1 applic TOPICAL BID PRN PRN Reason: Rash bisacodyL [Dulcolax] 10 mg RECTAL DAILY PRN PRN Reason: Constipation Renal Multivitamin Formula Tab 1 tab PO DAILY@1700 Calcium Acetate [PhosLo] 667 mg PO HS Famotidine [Pepcid] 10 mg PO DAILY@0800 Interdry 10 1 applic TOPICAL BID@0800,2100 Liquacel 30 ml PO BID@0800,1700 Vitamin E Cream 1 applic TOPICAL BID@0800,1700 Changed Insulin Degludec [Tresiba] 10 units SQ HS@2130 #0 Discontinued Gabapentin [Neurontin] 200 mg PO HS #3 cap HYDROcodone/APAP 5-325MG [[place] 5-325] 1 tab PO Q8H PRN #4 tab PRN Reason: Pain methylPREDNISolone [Medrol Dose Pack] See Taper PO DIRECTED Baclofen 5 mg PO TID@0800,1200,1700 Discharge Medication List Levothyroxine Sodium [Synthroid] 175 mcg PO DAILY@0800 11/21/17 [History] Montelukast [Singulair] 10 mg PO HS 11/21/17 [History] Atorvastatin [Lipitor] 40 mg PO HS@2100 09/08/20 [History] Cholecalciferol [Vitamin D3 (25 Mcg = 1000 Iu)] 50 mcg PO DAILY@1700 12/09/20 [History] Acetaminophen Tab [Tylenol] 650 mg PO Q4H PRN 11/04/21 [History] Aspirin EC [Ecotrin Low Dose] 81 mg PO DAILY@1700 11/04/21 [History] Clopidogrel [Plavix] 75 mg PO DAILY@0800 11/04/21 [History] DULoxetine HCL [Cymbalta] 60 mg PO DAILY@0800 02/08/22 [History] Isosorbide Mononitrate ER [Imdur] 30 mg PO BID@0800,1700 02/08/22 [History] Ondansetron [Zofran] 4 mg PO BID PRN 02/08/22 [History] Calcium Acetate [PhosLo] 1,334 mg PO AC-TID 04/12/22 [History] Furosemide [Lasix] 60 mg PO BID@0800,1700 08/06/22 [History] carvediloL [Coreg] 12.5 mg PO SUMOWEFR@0800 08/06/22 [History] Ipratropium-Albuterol Nebulize [Duoneb 0.5 mg-3 mg/3 ml Soln] 3 ml INHALATION RT-Q6H PRN 09/28/22 [History] Loperamide [Imodium] 2 mg PO QID PRN 09/28/22 [History] allopurinoL [Zyloprim] 100 mg PO DAILY@0800 09/28/22 [History] Calcium Acetate [PhosLo] 667 mg PO HS 10/30/22 [History] Famotidine [Pepcid] 10 mg PO DAILY@0800 10/30/22 [History] Hydrocortisone Cream [Hydrocortisone 1% Cream] 1 applic TOPICAL BID PRN 10/30/22 [History] Interdry 10 1 applic TOPICAL BID@0800,2100 10/30/22 [History] Renal Multivitamin Formula Tab 1 tab PO DAILY@1700 10/30/22 [History] bisacodyL [Dulcolax] 10 mg RECTAL DAILY PRN 10/30/22 [History] carvediloL [Coreg] 12.5 mg PO DAILY@1700 10/30/22 [History] guaiFENesin SYRUP 100MG/5ML [Robitussin] 200 mg PO Q4H PRN 10/30/22 [History] Insulin Aspart [NovoLOG] See Protocol SQ ACHS 12/31/22 [History] Sennosides-Docusate Sodium [Senokot-S] 1 tab PO BID@0800,1700 12/31/22 [History] Liquacel 30 ml PO BID@0800,1700 04/05/23 [History] Vitamin E Cream 1 applic TOPICAL BID@0800,1700 04/05/23 [History] Acetaminophen-Codeine 300-30mg [Tylenol w/codeine #3] 1 each PO Q8H PRN #3 tab 04/26/23 [Rx] Cefdinir [Omnicef] 300 mg PO HS 4 Days #4 cap 04/26/23 [Rx] Gabapentin [Neurontin] 100 mg PO DAILY@0800 #2 cap 04/26/23 [Rx] Insulin Degludec [Tresiba] 10 units SQ HS@2130 #0 04/26/23 [Rx] Ipratropium-Albuterol Nebulize [Duoneb 0.5 mg-3 mg/3 ml Soln] 3 ml INHALATION RT-QID each 04/26/23 [Rx] Melatonin 6 mg PO HS tab 04/26/23 [Rx] Vancomycin 1,750 mg IVPB Q48H 14 Days #14 each 04/26/23 [Rx] fluPHENAZine [Prolixin] 2 mg PO BID tab 04/26/23 [Rx] Follow up Appointment(s)/Referral(s): Cristiano East MD [Primary Care Provider] - 1-2 days Activity/Diet/Wound Care/Special Instructions: Patient is going to [facility] as tolerated Continue to monitor Accu-Cheks before meals and at bedtime and treat with sliding scale and long-acting Continue renal diabetic diet NovoLog sliding scale 0-150 equals 0 units 151-200 equals 2 units 201-250 equals 4 units 251-300 equals 6 units 301-350 equals 8 units 351-400 equals 10 units Please notify provider if blood sugar is 400 or above Continue oral antibiotics for 4 days to complete the course Patient will continue on vancomycin 1750 mg with pharmacy to dose with each dialysis session for the next 2 weeks per ID recommendations Patient will need repeat CBC, CRP, CK, CMP, as well as Vanco troughs Discharge Disposition: TRANSFER TO SNF/ECF
--- NOTE | 2023-04-26 14:24 | P.PN ---
Subjective Progress Note Date: 04/25/23 Patient was seen for a follow-up. Patient is fully alert and awake. She is doing much better. Patient states that she does not believe how she was acting in the last few days. Her mentation is back to normal. Objective - Vital Signs Vital signs: Vital Signs Temp 98.2 F 04/25/23 13:58 Pulse 68 04/25/23 16:38 Resp 16 04/25/23 16:29 BP 100/58 04/25/23 16:29 Pulse Ox 97 04/25/23 16:29 FiO2 21 04/22/23 23:27 Intake & Output 04/25/23 04/25/23 04/26/23 06:59 18:59 06:59 Intake Total 700 Output Total 1300 Balance -600 Weight 110.586 kg Intake: Oral 400 Hemodialysis 300 Output: Hemodialysis 1300 Other: Voiding Method Diaper Diaper # Voids 1 0 - Exam Patient is alert and awake fully oriented. Patient knows it is April 2023 and that she is in [facility] in [place]. Speech is back to normal. No paraphasic errors, no word salad, no gibberish speech. Her thought process appears normal. On cranial examination pupils are equal, round and reacting, visual luna are full, face is symmetric and tongue protrudes the midline. No ataxia for [id number] testing. - Labs CBC & Chem 7: 04/26/23 07:34 04/26/23 06:46 Labs: Abnormal Lab Results - Last 24 Hours (Table) 04/24/23 04/25/23 04/25/23 Range/Units 21:06 05:26 07:00 RBC 3.66 L (4.10-5.20) X 10*6/uL Hgb 11.5 L (12.0-15.0) d/dL Hct 35.4 L (37.2-46.3) % Plt Count 124 L (140-440) X 10*3/uL Sodium (135-145) mmol/L Chloride (96-109) mmol/L Anion Gap (4.00-12.00) mmol/L BUN (9.0-27.0) mg/dL Creatinine (0.6-1.5) mg/dL Est GFR (CKD-EPI) (>=60) BUN/Creatinine Ratio (12.00-20.00) Ratio Glucose (70-110) mg/dL POC Glucose (mg/dL) 142 H 149 H (70-110) mg/dL Phosphorus (2.4-5.1) mg/dL 04/25/23 04/25/23 04/25/23 Range/Units 07:00 07:00 16:12 RBC (4.10-5.20) X 10*6/uL Hgb (12.0-15.0) d/dL Hct (37.2-46.3) % Plt Count (140-440) X 10*3/uL Sodium 130 L (135-145) mmol/L Chloride 91 L (96-109) mmol/L Anion Gap 15.30 H (4.00-12.00) mmol/L BUN 38.4 H (9.0-27.0) mg/dL Creatinine 7.7 H* (0.6-1.5) mg/dL Est GFR (CKD-EPI) 5 L (>=60) BUN/Creatinine Ratio 4.99 L (12.00-20.00) Ratio Glucose 129 H (70-110) mg/dL POC Glucose (mg/dL) 222 H (70-110) mg/dL Phosphorus 5.6 H (2.4-5.1) mg/dL Assessment and Plan Assessment: * Altered mental status, likely due to acute delirium. Reasons multifactorial as below. Patient has developed acute psychosis, now resolved. * Toxic metabolic encephalopathy * Acute E. coli UTI, on cefepime and vancomycin. * Bacteremia with coagulase-negative staph. * End-stage renal disease, on hemodialysis * CAD * CHF * Diabetes * Hyperlipidemia * Hypertension * Rheumatoid arthritis * Sleep apnea Plan: * Patient has delirium/metabolic encephalopathy due to acute UTI/bacteremia. Patient has developed psychosis, which now has resolved. Her mentation is back to baseline. Affect is normal. * MRI of the brain revealed no acute intracranial process. No acute ischemic changes identified. 2 small punctate white matter changes are nonspecific. I personally reviewed MRI, agree with the findings. * Patient currently on aspirin 81 mg, Plavix 75 mg. * Patient's last hemoglobin A1c 7.8 on 08/07/2022. * Lipid panel with cholesterol 120, LDL 57, HDL 28, triglycerides 140 on 11/30/2032. Continue Lipitor 40 mg daily. * ID on board, patient's antibiotics changes to Omnicef and vancomycin. * Initial EEG was performed, which was abnormal due to presence of background slowing of moderate to severe degree, suggestive of generalized cerebral dy sfunction as can be seen with toxic metabolic encephalopathy or related to diffuse structural brain abnormality. Clinical correlation is recommended. Presence of frequent triphasic waves also suggest metabolic encephalopathy. Clinical correlation for hepatic encephalopathy also recommended. Follow-up is recommended as clinically indicated. * Repeat EEG (prolonged 1 hour) performed today was abnormal due to background slowing of mild to moderate degree, suggestive of generalized cerebral dysfunction as can be seen with toxic metabolic encephalopathy or related to diffuse structural brain abnormality. When compared to the study from 04/23/2023, left background has improved in the triphasic waves have completely resolved. No epileptiform activity was seen. * Psychiatry input appreciated. Patient on Prolixin 2 mg twice a day. Recommend psych follow-up. * Patient's ABG with pH of 7.35, pCO2 49, pO2 75 and saturation 92% on 21% FiO2. * Other medical management as per IM. * Patient previously had normal B12, but quite elevated MMA 1.07, suggestive of B12 deficiency. Repeat B12 1299, TSH normal 1.440. * Neurologically clear for discharge.
[2023-04-26] MEDS: SODIUM CHLORIDE 0.9% 1,000 ML IV SCH (14:59)
[2023-04-26 16:22] VITALS: PULSE 68
== END 2023-04-26 16:30 | DRG 871 ==
LOC: EC 11:52 → 5NMEDONC 13:45 → 4SSUR 16:05
PROVIDERS: ADMIT Hospitalist; ATTEND Hospitalist
PROC: 5A1D70Z Performance of Urinary Filtration, Intermittent, Less than 6 Hours Per Day (ICD-10-PCS; principal; 2023-04-16)
DX: A41.51 Sepsis due to Escherichia coli [E. coli] (principal); G92.8 Other toxic encephalopathy; N18.6 End stage renal disease; I13.2 Hypertensive heart and chronic kidney disease with heart failure and with stage 5 chronic kidney disease, or end stage renal disease; I69.354 Hemiplegia and hemiparesis following cerebral infarction affecting left non-dominant side; G45.9 Transient cerebral ischemic attack, unspecified; I50.32 Chronic diastolic (congestive) heart failure; N39.0 Urinary tract infection, site not specified; Z16.11 Resistance to penicillins; D63.1 Anemia in chronic kidney disease; E11.42 Type 2 diabetes mellitus with diabetic polyneuropathy; Z99.2 Dependence on renal dialysis; M06.9 Rheumatoid arthritis, unspecified; Z79.4 Long term (current) use of insulin; E66.9 Obesity, unspecified; F32.A Depression, unspecified; E89.0 Postprocedural hypothyroidism; Z20.822 Contact with and (suspected) exposure to COVID-19; Z66 Do not resuscitate; I69.328 Other speech and language deficits following cerebral infarction; I69.311 Memory deficit following cerebral infarction; J44.89 Other specified chronic obstructive pulmonary disease; E78.5 Hyperlipidemia, unspecified; M19.90 Unspecified osteoarthritis, unspecified site; F41.9 Anxiety disorder, unspecified; B96.20 Unspecified Escherichia coli [E. coli] as the cause of diseases classified elsewhere; G47.30 Sleep apnea, unspecified; I44.0 Atrioventricular block, first degree; I44.7 Left bundle-branch block, unspecified; H54.8 Legal blindness, as defined in USA; M89.8X9 Other specified disorders of bone, unspecified site; T50.905A Adverse effect of unspecified drugs, medicaments and biological substances, initial encounter; Z96.611 Presence of right artificial shoulder joint; Z96.651 Presence of right artificial knee joint; I25.10 Atherosclerotic heart disease of native coronary artery without angina pectoris; Z87.440 Personal history of urinary (tract) infections; Z79.82 Long term (current) use of aspirin; Z79.02 Long term (current) use of antithrombotics/antiplatelets; Z79.891 Long term (current) use of opiate analgesic; Z68.37 Body mass index [BMI] 37.0-37.9, adult; Z86.711 Personal history of pulmonary embolism; Z79.899 Other long term (current) drug therapy; Z79.890 Hormone replacement therapy; I25.2 Old myocardial infarction; Z86.16 Personal history of COVID-19; Z87.19 Personal history of other diseases of the digestive system; Z95.5 Presence of coronary angioplasty implant and graft; Z85.850 Personal history of malignant neoplasm of thyroid; E11.22 Type 2 diabetes mellitus with diabetic chronic kidney disease
CPT/HCPCS: 36410; 36415; 36600; 70450; 70551; 71045; 76937; 80048; 80053; 80202; 81001; 82140; 82607; 82803; 82805; 83605; 83735; 83880; 84100; 84132; 84443; 85025; 85610; 85730; 86140; 87040; 87077; 87086; 87186; 87636; 90935; 93005; 94640; 94660; 94760; 95813; 95816; 96365; 96366; 96375; 99285

== ENCOUNTER → 2023-08-07 | Outpatient (CLI) | payer MEDICARE, OTHER ==
--- NOTE | 2023-08-11 18:56 | MR ---
EXAMINATION TYPE: MR lumbar spine wo con DATE OF EXAM: 08/07/2023 COMPARISON: 10/26/2013 HISTORY: 68-year-old female low back pain into the left hip, arthrodesis status, Z98.1 TECHNIQUE: Multiplanar, multisequence images of the lumbar spine were acquired without IV contrast. FINDINGS: Patient status post L4-L5 posterior lumbar fusion corresponding laminectomy at this level. There appe ars to be a large posterior disc bulge at this level. In addition, right paracentral mild retropulsio n of the interbody device. This mildly narrows the spinal canal. Above the fusion at L3-L4, there is advanced degenerative disc disease with Modic type I endplate jane nge, facet arthropathy, ligamentum flavum thickening. Changes result in a severe focal spinal canal s tenosis. At L2-L3, congenital spinal canal narrowing with mild bulging disc, ligamentum flavum thickening, and facet arthropathy. Changes result in moderate overall spinal canal stenosis. At L1-L2, congenital spinal canal narrowing with diffuse bulging disc, ligamentum flavum thickening, and some prominent dorsal epidural fat. There is moderate overall narrowing of the thecal sac at this level. At L5-S1, bulging disc with facet arthropathy. No spinal canal stenosis. Conus medullaris is normal. No prevertebral or paravertebral soft tissue abnormality. On the right, changes result in moderate to severe neuroforaminal stenoses from L3 through S1 levels and mild at L2-L3. On the left, changes of resultant severe neural foraminal stenosis at L5-S1, moderate at L3-L4, and m ild at L4-L5. Vertebral body heights are preserved and alignment is maintained. IMPRESSION: 1. Status post L4-L5 posterior and interbody lumbar fusion with laminectomy. There is residual central services tech ior disc bulge at this level along with slight retropulsion of the interbody device contributing to m ild overall narrowing of the spinal canal here. 2. 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 Along with additional degenerative change, there is severe focal spinal canal stenosis above the fusion at L3-L4 and moderate at both L 1-L2 and L2-L3. 3. Variable neuroforaminal stenoses as outlined above, severe on the left at L5-S1 and moderate to se john on the right from L3 through S1 levels.
== END | disposition home or self-care (01) ==
LOC: RADMRIMAIN 13:12
PROVIDERS: ATTEND Neurological Surgery
DX: M48.061 Spinal stenosis, lumbar region without neurogenic claudication (principal); M47.816 Spondylosis without myelopathy or radiculopathy, lumbar region; M99.73 Connective tissue and disc stenosis of intervertebral foramina of lumbar region; Z98.1 Arthrodesis status
CPT/HCPCS: 72148

== ENCOUNTER 2023-09-03 11:38 | Observation (INO) | payer MEDICARE, OTHER ==
--- NOTE | 2023-09-03 12:43 | ED ---
General Adult HPI - General Chief complaint: Recheck/Abnormal Lab/Rx Stated complaint: Pic line block Time Seen by Provider: 09/03/23 12:00 Source: patient, RN notes reviewed, old records reviewed Mode of arrival: wheelchair Limitations: no limitations - History of Present Illness Initial comments: This is a 68-year-old female who presents to the emergency department from dialysis she was told that her fistula no longer works and to come to the ER to be admitted so that she can see Dr. Roper. Patient has no other complaints. Patient denies headache patient is numbness weakness. Patient is a fever chills per patient has any abdominal pain. Patient has nausea vomiting. Patient denies any chest pain or shortness of breath. - Related Data Home Medications Medication Instructions Recorded Confirmed Levothyroxine Sodium [Synthroid] 175 mcg PO DAILY@0800 11/21/17 04/14/23 Montelukast [Singulair] 10 mg PO HS 11/21/17 04/14/23 Atorvastatin [Lipitor] 40 mg PO HS@2100 09/08/20 04/14/23 Cholecalciferol [Vitamin D3 (25 50 mcg PO DAILY@1700 12/09/20 04/14/23 Mcg = 1000 Iu)] Acetaminophen Tab [Tylenol] 650 mg PO Q4H PRN 11/04/21 04/14/23 Aspirin EC [Ecotrin Low Dose] 81 mg PO DAILY@1700 11/04/21 04/14/23 Clopidogrel [Plavix] 75 mg PO DAILY@0800 11/04/21 04/14/23 DULoxetine HCL [Cymbalta] 60 mg PO DAILY@0800 02/08/22 04/14/23 Isosorbide Mononitrate ER [Imdur] 30 mg PO BID@0800,1700 02/08/22 04/14/23 Ondansetron [Zofran] 4 mg PO BID PRN 02/08/22 04/14/23 Calcium Acetate [PhosLo] 1,334 mg PO AC-TID 04/12/22 04/14/23 Furosemide [Lasix] 60 mg PO BID@0800,1700 08/06/22 04/14/23 carvediloL [Coreg] 12.5 mg PO SUMOWEFR@0800 08/06/22 04/14/23 Ipratropium-Albuterol Nebulize 3 ml INHALATION RT-Q6H PRN 09/28/22 04/14/23 [Duoneb 0.5 mg-3 mg/3 ml Soln] Loperamide [Imodium] 2 mg PO QID PRN 09/28/22 04/14/23 allopurinoL [Zyloprim] 100 mg PO DAILY@0800 09/28/22 04/14/23 Calcium Acetate [PhosLo] 667 mg PO HS 10/30/22 04/14/23 Famotidine [Pepcid] 10 mg PO DAILY@0800 10/30/22 04/14/23 Hydrocortisone Cream 1 applic TOPICAL BID PRN 10/30/22 04/14/23 [Hydrocortisone 1% Cream] Interdry 10 1 applic TOPICAL BID@0800,2100 10/30/22 04/14/23 Renal Multivitamin Formula Tab 1 tab PO DAILY@1700 10/30/22 04/14/23 bisacodyL [Dulcolax] 10 mg RECTAL DAILY PRN 10/30/22 04/14/23 carvediloL [Coreg] 12.5 mg PO DAILY@1700 10/30/22 04/14/23 guaiFENesin SYRUP 100MG/5ML 200 mg PO Q4H PRN 10/30/22 04/14/23 [Robitussin] Insulin Aspart [NovoLOG] See Protocol SQ ACHS 12/31/22 04/14/23 Sennosides-Docusate Sodium 1 tab PO BID@0800,1700 12/31/22 04/14/23 [Senokot-S] Liquacel 30 ml PO BID@0800,1700 04/05/23 04/14/23 Vitamin E Cream 1 applic TOPICAL BID@0800,1700 04/05/23 04/14/23 Previous Rx's Medication Instructions Recorded Acetaminophen-Codeine 300-30mg 1 each PO Q8H PRN #3 tab 04/26/23 [Tylenol w/codeine #3] Cefdinir [Omnicef] 300 mg PO HS 4 Days #4 cap 04/26/23 Gabapentin [Neurontin] 100 mg PO DAILY@0800 #2 cap 04/26/23 Insulin Degludec [Tresiba] 10 units SQ HS@2130 #0 04/26/23 Ipratropium-Albuterol Nebulize 3 ml INHALATION RT-QID each 04/26/23 [Duoneb 0.5 mg-3 mg/3 ml Soln] Melatonin 6 mg PO HS tab 04/26/23 Vancomycin 1,750 mg IVPB Q48H 14 Days #14 each 04/26/23 fluPHENAZine [Prolixin] 2 mg PO BID tab 04/26/23 Allergies Allergy/AdvReac Type Severity Reaction Status Date / Time No Known Allergies Allergy Verified 04/05/23 10:55 Review of Systems ROS Statement: Those systems with pertinent positive or pertinent negative responses have been documented in the HPI. ROS Other: All systems not noted in ROS Statement are negative. 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 , left forearm fistula., friend Shirley states patient can stand to transfer but uses wheelchair mostly, November Admission 2022 for [facility]-malfunctioning dialysis catheter. Last Myocardial Infarction Date:: 2009 History of Any Multi-Drug Resistant Organisms: VRE Date of last positivie culture/infection: 01/17/22 MDRO Source:: Urine Past Surgical History: Adenoidectomy, Back Surgery, Cholecystectomy, Heart Catheterization With Stent, Tonsillectomy Additional Past Surgical History / Comment(s): PCI with stent 2009 & 2019, low back surgery, total R shoulder and total R knee arthroplasties, bilateral hand trigger finger surgeries, EGD, colonoscopy, L eye laser eye surgery for bleed, thyroidectomy(2 surgeries total to remove all of thyroid).lt tib fib fx-plate and screws. lt arm Dialysis fistula,heart stents x2,heart cath x2 Past Anesthesia/Blood Transfusion Reactions: No Reported Reaction, Motion Sickn ess Additional Past Anesthesia/Blood Transfusion Reaction / Comment(s): no hx blood transfusion Date of Last Stent Placement:: 2009,2018 Past Psychological History: Anxiety, Depression Smoking Status: Never smoker Past Alcohol Use History: None Reported Past Drug Use History: None Reported - Past Family History Mother Family Medical History: Asthma, CVA/TIA, Seizure Disorder Additional Family Medical History / Comment(s): epilepsy,pt states "mom had 21 strokes) Father Family Medical History: COPD, Diabetes Mellitus Additional Family Medical History / Comment(s): many heart problems General Exam - General Exam Comments Initial Comments: GENERAL: Patient is well-developed and well-nourished. Patient is nontoxic and well- hydrated and is in no acute distress. ENT: Neck is soft and supple. No significant lymphadenopathy is noted. Oropharynx is clear. Moist mucous membranes. Neck has full range of motion without eliciting any pain. EYES: The sclera were anicteric and conjunctiva were pink and moist. Extraocular movements were intact and pupils were equal round and reactive to light. Eyelids were unremarkable. PULMONARY: Unlabored respirations. Good breath sounds bilaterally. No audible rales rhonchi or wheezing was noted. CARDIOVASCULAR: There is a regular rate and rhythm without any murmurs gallops or rubs. ABDOMEN: Soft and nontender with normal bowel sounds. SKIN: Skin is clear with no lesions or rashes and otherwise unremarkable. NEUROLOGIC: Patient is alert and oriented x3. Cranial nerves II through XII are grossly intact. Motor and sensory are also intact. Normal speech, volume and content. Symmetrical smile. MUSCULOSKELETAL: Normal extremities with adequate strength and full range of motion. I feel no thrill on the patient's fistula in the left arm LYMPHATICS: No significant lymphadenopathy is noted PSYCHIATRIC: Normal psychiatric evaluation. Limitations: no limitations Course Vital Signs 09/03/23 11:43 Temperature 97.4 F L Pulse Rate 60 Respiratory 16 Rate Blood Pressure 129/71 O2 Sat by Pulse 97 Oximetry Medical Decision Making - Medical Decision Making Was pt. sent in by a medical professional or institution (, ENRRIQUE, METAL BONDING WORKER, urgent care, hospital, or chcf...) When possible be specific @ -Patient was sent in by the dialysis center Did you speak to anyone other than the patient for history (EMS, parent, family, police, friend...)? What history was obtained from this source @ -No Did you review nursing and triage notes (agree or disagree)? Why? @ -I reviewed and agree with nursing and triage notes Were old charts reviewed (outside hosp., previous admission, EMS record, old EKG, old radiological studies, urgent care reports/EKG's, ch[facility] records)? Report findings @ -No old charts were reviewed Differential Diagnosis (chest pain, altered mental status, abdominal pain women, abdominal pain men, vaginal bleeding, weakness, fever, dyspnea, syncope, headache, dizziness, GI bleed, back pain, seizure, CVA, palpatations, mental health, musculoskeletal)? @ -Not applicable EKG interpreted by me (3pts min.). @ -As above X-rays interpreted by me (1pt min.). @ -None done CT interpreted by me (1pt min.). @ -None done U/S interpreted by me (1pt. min.). @ -None done What testing was considered but not performed or refused? (CT, X-rays, U/S, labs)? Why? @ -None What meds were considered but not given or refused? Why? @ -None Did you discuss the management of the patient with other professionals (professionals i.e. , ENRRIQUE, METAL BONDING WORKER, lab, RT, psych nurse, social worker delinquency prevention, school bus inspector, teacher, associate loan officer, rifle case repairer)? Give summary @ -I spoke with Dr. Roper as well as Dr. East and I admitted the patient to Dr. East with consult to Dr. Roper. Was smoking cessation discussed for >3mins.? @ -No Was critical care preformed (if so, how long)? @ -No Were there social determinants of health that impacted care today? How? (Homelessness, low income, unemployed, alcoholism, drug addiction, transportation, low edu. Level, literacy, decrease access to med. care, fdc, rehab)? @ -No Was there de-escalation of care discussed even if they declined (Discuss DNR or withdrawal of care, Hospice)? DNR status @ -No What co-morbidities impacted this encounter? (DM, HTN, Smoking, COPD, CAD, Cancer, CVA, ARF, Chemo, Hep., AIDS, mental health diagnosis, sleep apnea, morbid obesity)? @ -None Was patient admitted / discharged? Hospital course, mention meds given and route, prescriptions, significant lab abnormalities, going to OR and other pertinent info. @ -Patient had baseline labs drawn in the emergency department. Patient will be admitted to Dr. East and a consult will be placed for Dr. Roper Undiagnosed new problem with uncertain prognosis? @ -No Drug Therapy requiring intensive monitoring for toxicity (Heparin, Nitro, Insulin, Cardizem)? @ -No Were any procedures done? @ -No Diagnosis/symptom? @ -Fistula malfunction Acute, or Chronic, or Acute on Chronic? @ -Acute Uncomplicated (without systemic symptoms) or Complicated (systemic symptoms)? @ -Uncomplicated Side effects of treatment? @ -No Exacerbation, Progression, or Severe Exacerbation? @ -No Poses a threat to life or bodily function? How? (Chest pain, USA, ND, pneumonia, PE, COPD, DKA, ARF, appy, cholecystitis, CVA, Diverticulitis, Homicidal, S uicidal, threat to staff... and all critical care pts) @ -No Disposition Clinical Impression: Failing arteriovenous fistula Disposition: ADMITTED IP TO THIS HOSP Referrals: Cristiano East MD [Primary Care Provider] - 1-2 days Time of Disposition: 13:17
--- NOTE | 2023-09-03 12:55 | P.GSCN ---
History of Present Illness Consult date: 09/03/23 Reason for Consult: Left upper extremity thrombosed dialysis graft Requesting physician: Kyler Hugo History of present illness: Is a pleasant 68-year-old female with a history of end-stage renal disease requiring hemodialysis who presented to the emergency department with concerns of malfunctioning left upper extremity dialysis graft. Patient has a left upper extremity loop AV graft she gets dialysis Saturday. She went in for dialysis morning at 530 and they were not able to complete dialysis, there is no palpable thrill or audible bruit. She had a similar situation back in March 2023 and had to undergo fistulogram with thrombolysis and thrombectomy with Dr. Leung. Labs are currently pending. She states that she has been getting her dialysis as scheduled and has not missed any recent dialysis other than today. She denies any pain in her left upper extremity, states that she had no complications with her dialysis on Saturday. She is denying any shortness of breath or chest pain, no lower extremity swelling. Review of Systems A 14 point review systems was completed all pertinent positives and negatives as stated in the HPI. 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 , left forearm fistula., friend Shirley states patient can stand to transfer but uses wheelchair mostly, November Admission 2022 for [facility]-malfunctioning dialysis catheter. Last Myocardial Infarction Date:: 2009 History of Any Multi-Drug Resistant Organisms: VRE Year Discovered:: 01/17/22 MDRO Source:: Urine Past Surgical History: Adenoidectomy, Back Surgery, Cholecystectomy, Heart Catheterization With Stent, Tonsillectomy Additional Past Surgical History / Comment(s): PCI with stent 2009 & 2018, low back surgery, total R shoulder and total R knee arthroplasties, bilateral hand trigger finger surgeries, EGD, colonoscopy, L eye laser eye surgery for bleed, thyroidectomy(2 surgeries total to remove all of thyroid).lt tib fib fx-plate and screws. lt arm Dialysis fistula,heart stents x2,heart cath x2 Past Anesthesia/Blood Transfusion Reactions: No Reported Reaction, Motion Sickness Additional Past Anesthesia/Blood Transfusion Reaction / Comm: no hx blood transfusion Date of Last Stent Placement:: 2009,2018 Past Psychological History: Anxiety, Depression Smoking Status: Never smoker Past Alcohol Use History: None Reported Past Drug Use History: None Reported - Past Family History Mother Family Medical History: Asthma, CVA/TIA, Seizure Disorder Additional Family Medical History / Comment(s): epilepsy,pt states "mom had 21 strokes) Father Family Medical History: COPD, Diabetes Mellitus Additional Family Medical History / Comment(s): many heart problems Medications and Allergies Home Medications Medication Instructions Recorded Confirmed Type Levothyroxine Sodium [Synthroid] 175 mcg PO DAILY@0800 11/21/17 09/03/23 History Montelukast [Singulair] 10 mg PO HS@2100 11/21/17 09/03/23 History Atorvastatin [Lipitor] 40 mg PO HS 09/08/20 09/03/23 History Cholecalciferol [Vitamin D3 (25 50 mcg PO DAILY@1700 12/09/20 09/03/23 History Mcg = 1000 Iu)] Acetaminophen Tab [Tylenol] 650 mg PO Q4H PRN 11/04/21 09/03/23 History Aspirin EC [Ecotrin Low Dose] 81 mg PO DAILY@1700 11/04/21 09/03/23 History Clopidogrel [Plavix] 75 mg PO DAILY@0800 11/04/21 09/03/23 History Isosorbide Mononitrate ER [Imdur] 30 mg PO BID@0800,1700 02/08/22 09/03/23 History Ondansetron [Zofran] 4 mg PO BID PRN 02/08/22 09/03/23 History Calcium Acetate [PhosLo] 1,334 mg PO AC-TID 04/12/22 09/03/23 History Furosemide [Lasix] 60 mg PO BID@0800,1700 08/06/22 09/03/23 History carvediloL [Coreg] 12.5 mg PO SUMOWEFR@0800 08/06/22 09/03/23 History Ipratropium-Albuterol Nebulize 3 ml INHALATION RT-Q6H PRN 09/28/22 09/03/23 His tory [Duoneb 0.5 mg-3 mg/3 ml Soln] Loperamide [Imodium] 2 mg PO QID PRN 09/28/22 09/03/23 History allopurinoL [Zyloprim] 100 mg PO DAILY@0800 09/28/22 09/03/23 History Calcium Acetate [PhosLo] 667 mg PO HS 10/30/22 09/03/23 History Famotidine [Pepcid] 10 mg PO DAILY@0800 10/30/22 09/03/23 History Hydrocortisone Cream 1 applic TOPICAL BID PRN 10/30/22 09/03/23 History [Hydrocortisone 1% Cream] Interdry 10 1 applic TOPICAL BID@0800,2100 10/30/22 09/03/23 History Renal Multivitamin Formula Tab 1 tab PO DAILY@1700 10/30/22 09/03/23 History bisacodyL [Dulcolax] 10 mg RECTAL DAILY PRN 10/30/22 09/03/23 History carvediloL [Coreg] 12.5 mg PO DAILY@1700 10/30/22 09/03/23 History guaiFENesin SYRUP 100MG/5ML 200 mg PO Q4H PRN 10/30/22 09/03/23 History [Robitussin] Insulin Aspart [NovoLOG] See Protocol SQ ACHS 12/31/22 09/03/23 History Sennosides-Docusate Sodium 1 tab PO BID@0800,1700 12/31/22 09/03/23 History [Senokot-S] Liquacel 30 ml PO BID@0800,1700 04/05/23 09/03/23 History Gabapentin [Neurontin] 100 mg PO DAILY@0800 #2 cap 04/26/23 09/03/23 Rx Insulin Degludec [Tresiba] 10 units SQ HS@2130 #0 04/26/23 09/03/23 Rx Diclofenac Sodium Gel [Voltaren 1% 1 applic TOPICAL QID 09/03/23 09/03/23 History Gel] Gabapentin [Neurontin] 200 mg PO HS@199909/03/23 09/03/23 History HYDROcodone/APAP 5-325MG [[place] 1 tab PO Q6H PRN 09/03/23 09/03/23 History 5-325] Ipratropium-Albuterol Nebulize 3 ml INHALATION RT-Q6H 09/03/23 09/03/23 History [Duoneb 0.5 mg-3 mg/3 ml Soln] Lidocaine 5% Patch [Lidoderm] 1 patch TRANSDERM DAILY@0700 09/03/23 09/03/23 History Magnesium Hydroxide [Milk of 7,200 mg PO DIRECTED PRN 09/03/23 09/03/23 History Magnesia Concentrate] Melatonin 6 mg PO HS@2100 09/03/23 09/03/23 History Midodrine [ProAmatine] 5 mg PO TUTHSA@0500 09/03/23 09/03/23 History Na Phos,M-B/Na Phos,Di-Ba [Fleet 133 ml RECTAL DAILY PRN 09/03/23 09/03/23 History Adult] Venlafaxine HCl [Effexor] 37.5 mg PO DAILY@0800 09/03/23 09/03/23 History Vitamin E 1 applic TOPICAL BID@0800,1700 09/03/23 09/03/23 History Allergies Allergy/AdvReac Type Severity Reaction Status Date / Time No Known Allergies Allergy Verified 09/03/23 14:43 Surgical - Exam Vital Signs Temp Pulse Resp BP Pulse Ox 97.4 F L 60 16 129/71 97 09/03/23 11:43 09/03/23 11:43 09/03/23 11:43 09/03/23 11:43 09/03/23 11:43 General appearance: The patient is alert, oriented, appears in no acute distress. HET: Head is normocephalic and atraumatic. Pupils are equal and reactive. Neck: Supple. Heart: Regular. Lungs: Equal expansion, normal respiratory effort. Abdomen: Soft, nontender, nondistended. Extremities: Normal skin color and turgor. Left forearm loop graft with nonpalpable thrill and no audible bruit. Neurological: No focal deficits. Strength and sensation are grossly intact. Results - Labs 09/03/23 12:59 09/03/23 12:59 Assessment and Plan Assessment: 1. Thrombosed left upper extremity loop AV graft 2. End-stage renal disease requiring hemodialysis Plan: 1. Keep n.p.o. for now 2. Await lab results 3. Patient will need left upper extremity fistulogram, possible thrombolysis, possible thrombectomy. Timing to be determined 4. Continue with recommendations from nephrology Thank you for this consultation, we will continue to follow. The impression and plan of care has been dictated as directed. Dr. Leung I performed a history and examination of this patient, discussed the same with the dictator. I agree with the dictator's note ,documented as a scribe. Any additional findings or plans will be noted.
[2023-09-03 13:20] LABS: Basophils % (A) 0 %; Eosinophils # (A) 0.2 k/uL (0-0.7); Eosinophils % (A) 3 %; HCT 37.4 % (34.0-46.0); HGB 12.3 gm/dL (11.4-16.0); Lymphocytes # (A) 2.4 k/uL (1.0-4.8); Lymphocytes % (A) 34 %; MCH 32.4 pg (25.0-35.0); MCV 98.4 fL (80.0-100.0); Mean Platelet Volume 8.6; Monocytes # (A) 0.3 k/uL (0-1.0); Monocytes % (A) 4 %; Neutrophils # (A) 3.9 k/uL (1.3-7.7); Neutrophils % (A) 55 %; Platelet Count 129 k/uL (150-450)
[2023-09-03 13:26] LABS: ALT 18 U/L (4-34); AST 38 U/L (14-36); African American GFR (CKD) 6 (>60 ml/min/1.73 sqM); Albumin 3.9 g/dL (3.5-5.0); Alkaline Phosphatase 81 U/L (38-126); Anion Gap 10 mmol/L; Calcium 9.8 mg/dL (8.4-10.2); Carbon Dioxide 29 mmol/L (22-30); Chloride 96 mmol/L (98-107); Glucose 136 mg/dL (74-99); Non-African American GFR(CKD) 5 (>60 ml/min/1.73 sqM); Potassium 5.2 mmol/L (3.5-5.1); Sodium 135 mmol/L (137-145); Total Bilirubin 0.5 mg/dL (0.2-1.3); Total Protein 7.1 g/dL (6.3-8.2)
[2023-09-03 13:29] LABS: INR 0.9 (<1.2); Partial Thromboplastin Time 22.8 sec (22.0-30.0); Prothrombin Time 9.9 sec (10.0-12.5)
[2023-09-03 13:42] LABS: Blood Urea Nitrogen 103 mg/dL (7-17)
[2023-09-03] MEDS: SODIUM ZIRCONIUM CYCLOSILICATE 10 GM PACKET PO ONE (16:00)
[2023-09-03 17:35] LABS: Glucose,Whole Blood 153 mg/dL (70-110)
[2023-09-03] MEDS ORDERED: guaiFENesin SYRUP 100MG/5ML 200 MG/10 ML CUP PO PRN (17:45)
[2023-09-03] MEDS ORDERED: LOPERAMIDE 2 MG CAP PO PRN (17:45)
[2023-09-03] MEDS ORDERED: ACETAMINOPHEN TAB 325 MG TAB PO PRN (17:45)
[2023-09-03] MEDS ORDERED: IPRATROPIUM-ALBUTEROL 3 ML NEB INHALATION PRN (17:45)
[2023-09-03] MEDS ORDERED: bisacodyL 10 MG SUPP RECTAL PRN (17:45)
[2023-09-03] MEDS ORDERED: ONDANSETRON 4 MG TAB PO PRN (17:45)
[2023-09-03] MEDS ORDERED: MAGNESIUM HYDROXIDE 2,400 MG/30 ML CUP PO PRN (17:45)
[2023-09-03] MEDS ORDERED: NA PHOS,M-B/NA PHOS,DI-BA 133 ML ENEMA RECTAL PRN (17:45)
[2023-09-03] MEDS: IPRATROPIUM-ALBUTEROL 3 ML NEB INHALATION SCH (19:48)
[2023-09-03] MEDS: GABAPENTIN 100 MG CAP PO SCH (20:29)
[2023-09-03] MEDS: ATORVASTATIN 40 MG TAB PO SCH (20:30)
[2023-09-03] MEDS: CALCIUM ACETATE 667 MG TAB PO SCH (20:30)
[2023-09-03] MEDS: MONTELUKAST 10 MG TAB PO SCH (20:30)
[2023-09-03 20:50] LABS: Glucose,Whole Blood 181 mg/dL (70-110)
[2023-09-03] MEDS ORDERED: NON FORMULARY DRUG (Insulin Aspart [Novolog] 100 UNIT/ML Cartridge) SQ SCH (21:00)
[2023-09-03] MEDS ORDERED: INTERDRY TOPICAL SCH (21:00)
[2023-09-03] MEDS: INSULIN ASPART (NovoLOG) 100 UNIT/ML VIAL SQ SCH (21:01)
[2023-09-03] MEDS: MELATONIN 3 MG TABLET PO SCH (21:02)
[2023-09-03] MEDS: INSULIN DETEMIR (LEVEMIR) 100 UNIT/ML SYR SQ SCH (21:02)
--- NOTE | 2023-09-04 05:35 | P.HPIM ---
History of Present Illness H&P Date: 09/03/23 Chief Complaint: Nonfunctioning dialysis graft in the left forearm. HISTORY OF PRESENT ILLNESS: 68-year-old: Patient in mild manage for the last few years with past history of coronary artery disease, asthma/COPD, history of CVA, type 2 diabetes, ga strointestinal bleed, history of myocardial infarction, history of pulmonary embolism, end-stage renal disease on hemodialysis for the last 2 years, history of obstructive sleep apnea and history of hypothyroidism who had a temporary dialysis line for over a year but had left forearm fistulogram done this last year which has been doing hemodialysis through her fistula graft for many months with no problem. Apparently she had her dialysis fistula graft not functioning at 5:30 in the morning when went back to dialysis on 09/03/2023 and believes he might have an it either thrombus or might need to be cleaned up. Patient ended up sent to the emergency department at [facility] where was seen and evaluated she is feeling well otherwise but she will be delaying her dialysis for at least 24 hours. Patient had seen Dr. Roper before who did a fistulogram next this last year and has been seeing her every so often for follow-up on PAD as well. The patient will be admitted to go to the [facility] for possible thrombectomy of the fistula graft tomorrow morning at 09/04/2023. REVIEW OF SYSTEMS: CONSTITUTIONAL: Well-developed no acute respiratory distress. EYES: No icterus sclerae, no conjunctivitis. EARS, NOSE, MOUTH, THROAT, and FACE: No sore throat, lymphadenopathy, carotid bruits or deformity. RESPIRATORY: No SOB cough or wheezes. CARDIOVASCULAR: No CP, Palpitation, PND, Orthopnea, or angina. GASTROINTESTINAL: No Abd pain, Nausea or vomiting, no Diarrhea or constipation, No GI Bleed, no distention or masses. GENITOURINARY: Does not make much urine she is on hemodialysis. INTEGUMENT/BREAST: Negative for any muscular injury with mild osteoarthritis.. HEMATOLOGIC/LYMPHATIC: Negative for bleed or purpura. MUSCULOSKELTAL: Generalized back and muscle pain. NEURLOGICAL: No LOC, Sz or syncope, blurred vision dizziness or abnormality. Patient had severe weakness of the lower extremity ambulate with a wheelchair.. BEHAVIORAL/PSYCH: Negative. ENDOCRINE: Negative. PHYSICAL EXAMINATION: General Appearance: Alert, cooperative, no distress, appears stated age. _ Neck HEENT: Supple, no lymphadenopathy, no thyroid enlargement, no carotid bruits. Lungs: Clear to auscultation without crackles or wheezes no rhonchi, no deformi ty. Chest Wall: Decreased expansion with deep inspiration no tenderness and no deformity was found on exam, no costochondral pain or discomfort. Heart: Regular rate and rhythm, S1, S2 normal, positive systolic murmur. Back: Symmetric, no curvature, ROM normal, slight discomfort in the lower lumbar area with mild scoliosis. Abdomen: Soft, non-tender, bowel sounds active all four quadrants, no masses, no organomegaly. Extremities: Left forearm fistula graft still have slight functioning with less pulsation and normal, Slight edema of the lower extremity with mild vascular cellulitis and slight d iscoloration from the knee down. Pulses: 2+ and symmetric. Skin: Skin color, texture, tugor normal, no rashes or lesions. Neurologic: Alert oriented x3 cranial nerves II through XII intact, generalized weakness of the lower extremity not able to do any gait exam. ASSESSMENT AND PLAN: _End-stage renal disease on hemodialysis 3 times a week. _Nonfunctioning fistula graft of the left forearm will require thrombectomy however correction by vascular. _Atherosclerotic heart disease no angina she been on Coreg, isosorbide mononitrate, furosemide, Plavix and atorvastatin. _Type 2 diabetes continue Tresiba 10 units at bedtime and still on NovoLog per sliding scale coverage. _Chronic neuropathy has been on gabapentin 200 mg at bedtime and 100 mg in the morning. _Asthma/COPD: Still on montelukast 10 mg a day along with ipratropium albuterol nebulizer, no flareup lately. _Cardiomyopathy: Trying to stay on her medication the best she can but developed hypotension around dialysis every day she is remain on Coreg, isosorbide, Lasix and Plavix. _Hypothyroidism: Resume levothyroxine at 175 mcg daily. _Iatrogenic hypotension: Mostly medication related and the aggressiveness of moving fluid from her body to dialysis she developed to have hypotension with dialysis normally she does midodrine predialysis. _Chronic pain syndrome: Remain on hydrocodone along with gabapentin. _Chronic anemia: Continue multivitamin continue Procrit through dialysis. _GI prophylaxis: Patient will be on Pepcid 20 mg daily. _DVT prophylaxis: Continue heparin via dialysis and early mobilization will be done. CODE STATUS: Full code. Admit patient to the inpatient service for 1-2 night stay. Past Medical History Past Medical History: Asthma, Coronary Artery Disease (CAD), Cancer, Heart Failure, COPD, CVA/TIA, Diabetes Mellitus, GI Bleed, Hyperlipidemia, Hypertension, Myocardial Infarction (ND), Osteoarthritis (OA), Pulmonary Embolus (PE), Renal Disease, Rheumatoid Arthritis (RA), Sleep Apnea/CPAP/BIPAP, Syncope, Thyroid Disorder Additional Past Medical History / Comment(s): mild CVA 2021-left sided weake r,speech-slight difficulty with word recall,has some STM loss, Covid infection Mar 2022,uses bipap, peripheral neuropathy bilateral hands/feet, CKD , UTIs, legally blind bilaterally-sees minimally, thyroid cancer with surgery-no radiation or chemo, goiter, hashimotos, diverticular disease, 2013 upper and lower GI bleeds with blood loss anemia, gout, R humeral fracture with surgery., hx falls-able to stand and pivot for transfers-ambulates with rolling walker and assist., hx left ankle fxs., Hemodialysis // at [facility] in [place]., pt has RT chest port. , left forearm fistula., friend Shirley states patient can stand to transfer but uses wheelchair mostly, November Admission 2022 for [facility]-malfunctioning dialysis catheter. Last Myocardial Infarction Date:: 2009 History of Any Multi-Drug Resistant Organisms: VRE Date of last positivie culture/infection: 01/17/22 MDRO Source:: Urine Past Surgical History: Adenoidectomy, Back Surgery, Cholecystectomy, Heart Catheterization With Stent, Tonsillectomy Additional Past Surgical History / Comment(s): PCI with stent 2009 & 2018, low back surgery, total R shoulder and total R knee arthroplasties, bilateral hand trigger finger surgeries, EGD, colonoscopy, L eye laser eye surgery for bleed, thyroidectomy(2 surgeries total to remove all of thyroid).lt tib fib fx-plate and screws. lt arm Dialysis fistula,heart stents x2,heart cath x2 Past Anesthesia/Blood Transfusion Reactions: No Reported Reaction, Motion Sickness Additional Past Anesthesia/Blood Transfusion Reaction / Comment(s): no hx blood transfusion Date of Last Stent Placement:: 2009,2018 Past Psychological History: Anxiety, Depression Smoking Status: Never smoker Past Alcohol Use History: None Reported Past Drug Use History: None Reported - Past Family History Mother Family Medical History: Asthma, CVA/TIA, Seizure Disorder Additional Family Medical History / Comment(s): epilepsy,pt states "mom had 21 strokes) Father Family Medical History: COPD, Diabetes Mellitus Additional Family Medical History / Comment(s): many heart problems Medications and Allergies Home Medications Medication Instructions Recorded Confirmed Type Levothyroxine Sodium [Synthroid] 175 mcg PO DAILY@0800 11/21/17 09/03/23 History Montelukast [Singulair] 10 mg PO HS@2100 11/21/17 09/03/23 History Atorvastatin [Lipitor] 40 mg PO HS 09/08/20 09/03/23 History Cholecalciferol [Vitamin D3 (25 50 mcg PO DAILY@1700 12/09/20 09/03/23 History Mcg = 1000 Iu)] Acetaminophen Tab [Tylenol] 650 mg PO Q4H PRN 11/04/21 09/03/23 History Aspirin EC [Ecotrin Low Dose] 81 mg PO DAILY@1700 11/04/21 09/03/23 History Clopidogrel [Plavix] 75 mg PO DAILY@0800 11/04/21 09/03/23 History Isosorbide Mononitrate ER [Imdur] 30 mg PO BID@0800,1700 02/08/22 09/03/23 History Ondansetron [Zofran] 4 mg PO BID PRN 02/08/22 09/03/23 History Calcium Acetate [PhosLo] 1,334 mg PO AC-TID 04/12/22 09/03/23 History Furosemide [Lasix] 60 mg PO BID@0800,1700 08/06/22 09/03/23 History carvediloL [Coreg] 12.5 mg PO SUMOWEFR@0808/06/22 09/03/23 History Ipratropium-Albuterol Nebulize 3 ml INHALATION RT-Q6H PRN 09/28/22 09/03/23 History [Duoneb 0.5 mg-3 mg/3 ml Soln] Loperamide [Imodium] 2 mg PO QID PRN 09/28/22 09/03/23 History allopurinoL [Zyloprim] 100 mg PO DAILY@0800 09/28/22 09/03/23 History Calcium Acetate [PhosLo] 667 mg PO HS 10/30/22 09/03/23 History Famotidine [Pepcid] 10 mg PO DAILY@0800 10/30/22 09/03/23 History Hydrocortisone Cream 1 applic TOPICAL BID PRN 10/30/22 09/03/23 History [Hydrocortisone 1% Cream] Interdry 10 1 applic TOPICAL BID@0800,2100 10/30/22 09/03/23 History Renal Multivitamin Formula Tab 1 tab PO DAILY@1700 10/30/22 09/03/23 History bisacodyL [Dulcolax] 10 mg RECTAL DAILY PRN 10/30/22 09/03/23 History carvediloL [Coreg] 12.5 mg PO DAILY@1700 10/30/22 09/03/23 History guaiFENesin SYRUP 100MG/5ML 200 mg PO Q4H PRN 10/30/22 09/03/23 History [Robitussin] Insulin Aspart [NovoLOG] See Protocol SQ ACHS 12/31/22 09/03/23 History Sennosides-Docusate Sodium 1 tab PO BID@0800,1700 12/31/22 09/03/23 History [Senokot-S] Liquacel 30 ml PO BID@0800,1700 04/05/23 09/03/23 History Gabapentin [Neurontin] 100 mg PO DAILY@0800 #2 cap 04/26/23 09/03/23 Rx Insulin Degludec [Tresiba] 10 units SQ HS@2130 #0 04/26/23 09/03/23 Rx Diclofenac Sodium Gel [Voltaren 1% 1 applic TOPICAL QID 09/03/23 09/03/23 History Gel] Gabapentin [Neurontin] 200 mg PO HS@199909/03/23 09/03/23 History HYDROcodone/APAP 5-325MG [[place] 1 tab PO Q6H PRN 09/03/23 09/03/23 History 5-325] Ipratropium-Albuterol Nebulize 3 ml INHALATION RT-Q6H 09/03/23 09/03/23 History [Duoneb 0.5 mg-3 mg/3 ml Soln] Lidocaine 5% Patch [Lidoderm] 1 patch TRANSDERM DAILY@0700 09/03/23 09/03/23 History Magnesium Hydroxide [Milk of 7,200 mg PO DIRECTED PRN 09/03/23 09/03/23 History Magnesia Concentrate] Melatonin 6 mg PO HS@2100 09/03/23 09/03/23 History Midodrine [ProAmatine] 5 mg PO TUTHSA@0500 09/03/23 09/03/23 History Na Phos,M-B/Na Phos,Di-Ba [Fleet 133 ml RECTAL DAILY PRN 09/03/23 09/03/23 History Adult] Venlafaxine HCl [Effexor] 37.5 mg PO DAILY@0800 09/03/23 09/03/23 History Vitamin E 1 applic TOPICAL BID@0800,1700 09/03/23 09/03/23 History Allergies Allergy/AdvReac Type Severity Reaction Status Date / Time No Known Allergies Allergy Verified 09/03/23 14:43 Physical Exam Vitals: Vital Signs Temp Pulse Pulse Resp BP BP Pulse Ox 09/03/23 17:35 97.5 F L 91 144/75 98 09/03/23 17:04 62 18 134/60 97 09/03/23 11:43 97.4 F L 60 16 129/71 97 Intake and Output 09/03/23 09/03/23 09/03/23 06:59 14:59 22:59 Other: Weight 112.037 kg Results CBC & Chem 7: 09/03/23 12:59 09/03/23 12:59 Labs: Abnormal Lab Results - Last 24 Hours (Table) 09/03/23 09/03/23 09/03/23 Range/Units 12:59 12:59 12:59 Plt Count 129 L (150-450) k/uL PT 9.9 L (10.0-12.5) sec Sodium 135 L (137-145) mmol/L Potassium 5.2 H (3.5-5.1) mmol/L Chloride 96 L (98-107) mmol/L BUN 103 H* (7-17) mg/dL Creatinine 7.85 H* (0.52-1.04) mg/dL Glucose 136 H (74-99) mg/dL POC Glucose (mg/dL) (70-110) mg/dL AST 38 H (14-36) U/L 03/12/24 Range/Units 17:34 Plt Count (150-450) k/uL PT (10.0-12.5) sec Sodium (137-145) mmol/L Potassium (3.5-5.1) mmol/L Chloride (98-107) mmol/L BUN (7-17) mg/dL Creatinine (0.52-1.04) mg/dL Glucose (74-99) mg/dL POC Glucose (mg/dL) 153 H (70-110) mg/dL AST (14-36) U/L
[2023-09-04 06:25] LABS: Glucose,Whole Blood 181 mg/dL (70-110)
[2023-09-04] MEDS: LIDOCAINE 4% PATCH TOPICAL SCH (06:30)
[2023-09-04] MEDS: CALCIUM ACETATE 667 MG TAB PO SCH (06:30)
[2023-09-04] MEDS ORDERED: VITAMIN E TOPICAL SCH (08:00)
[2023-09-04] MEDS ORDERED: NON FORMULARY DRUG (Liquacel 30 ML) PO SCH (08:00)
[2023-09-04] MEDS: FUROSEMIDE 20 MG TAB PO SCH (09:00)
[2023-09-04] MEDS: VENLAFAXINE HCL 37.5 MG TAB PO SCH (09:00)
[2023-09-04] MEDS: LEVOTHYROXINE 100 MCG TAB PO SCH (09:01)
[2023-09-04] MEDS: SENNOSIDES-DOCUSATE SODIUM 1 EACH TAB PO SCH (09:01)
[2023-09-04] MEDS: FAMOTIDINE 20 MG TAB PO SCH (09:01)
[2023-09-04] MEDS: allopurinoL 100 MG TAB PO SCH (09:01)
[2023-09-04] MEDS: LEVOTHYROXINE 75 MCG TAB PO SCH (09:02)
[2023-09-04] MEDS: carvediloL 12.5 MG TAB PO SCH ×2 (09:02→18:00)
[2023-09-04] MEDS: ISOSORBIDE MONONITRATE ER 30 MG TAB.ER.24H PO SCH (09:02)
[2023-09-04] MEDS: GABAPENTIN 100 MG CAP PO SCH (09:02)
[2023-09-04 12:19] LABS: Glucose,Whole Blood 206 mg/dL (70-110)
--- NOTE | 2023-09-04 12:22 | P.NPCON ---
History of Present Illness - Reason for Consult end stage renal disease - History of Present Illness Reason for consultation: End-stage renal disease History of present illness: Patient is a 68-year-old female seen in renal consultation for end-stage renal disease. She is maintained on hemodialysis on Saturday schedule via AV graft. Patient went to hemodialysis yesterday but was sent to the hospital due to clotted AV graft. She is being followed by vascular surgery and is scheduled for intervention this afternoon. She will receive hemodialysis today and again tomorrow. She denies chest pain or shortness of breath. No vomiting or diarrhea. No fever or chills. Hemodynamically stable. She has no active complaints. She resides at [facility]. Patient has longstanding history of diabetes. Also has coronary artery disease with cardiac stents. Vital signs are stable. General: No acute distress. HEENT: Head exam is unremarkable. LUNGS: No audible rhonchi or wheezes. HEART: Rate and Rhythm are regular. ABDOMEN: Nontender. EXTREMITITES: No edema. Past Medical History Past Medical History: Asthma, Coronary Artery Disease (CAD), Cancer, Heart Failure, COPD, CVA/TIA, Diabetes Mellitus, GI Bleed, Hyperlipidemia, Hypertension, Myocardial Infarction (OR), Osteoarthritis (OA), Pulmonary Embolus (PE), Renal Disease, Rheumatoid Arthritis (RA), Sleep Apnea/CPAP/BIPAP, Syncope, Thyroid Disorder Additional Past Medical History / Comment(s): mild CVA 2021-left sided weaker,speech-slight difficulty with word recall,has some STM loss, Covid infection Mar 2022,uses bipap, peripheral neuropathy bilateral hands/feet, CKD , UTIs, legally blind bilaterally-sees minimally, thyroid cancer with surgery-no radiation or chemo, goiter, hashimotos, diverticular disease, 2013 upper and lower GI bleeds with blood loss anemia, gout, R humeral fracture with surgery., hx falls-able to stand and pivot for transfers-ambulates with rolling walker and assist., hx left ankle fxs., Hemodialysis // at [facility] in [place]., pt has RT chest port. , left forearm fistula., friend Shirley states patient can stand to transfer but uses wheelchair mostly, November Admission 2022 for [facility]-malfunctioning dialysis catheter. Last Myocardial Infarction Date:: 2009 History of Any Multi-Drug Resistant Organisms: VRE Date of last positivie culture/infection: 01/17/22 MDRO Source:: Urine Past Surgical History: Adenoidectomy, Back Surgery, Cholecystectomy, Heart Catheterization With Stent, Tonsillectomy Additional Past Surgical History / Comment(s): PCI with stent 2009 & 2019, low back surgery, total R shoulder and total R knee arthroplasties, bilateral hand trigger finger surgeries, EGD, colonoscopy, L eye laser eye surgery for bleed, thyroidectomy(2 surgeries total to remove all of thyroid).lt tib fib fx-plate and screws. lt arm Dialysis fistula,heart stents x2,heart cath x2 Past Anesthesia/Blood Transfusion Reactions: No Reported Reaction, Motion Sickness Additional Past Anesthesia/Blood Transfusion Reaction / Comment(s): no hx blood transfusion Date of Last Stent Placement:: Past Psychological History: Anxiety, Depression Smoking Status: Never smoker Past Alcohol Use History: None Reported Past Drug Use History: None Reported - Past Family History Mother Family Medical History: Asthma, CVA/TIA, Seizure Disorder Additional Family Medical History / Comment(s): epilepsy,pt states "mom had 21 strokes) Father Family Medical History: COPD, Diabetes Mellitus Additional Family Medical History / Comment(s): many heart problems Medications and Allergies Home Medications Medication Instructions Recorded Confirmed Type Levothyroxine Sodium [Synthroid] 175 mcg PO DAILY@0800 11/21/17 09/03/23 History Montelukast [Singulair] 10 mg PO HS@2100 11/21/17 09/03/23 History Atorvastatin [Lipitor] 40 mg PO HS 09/08/20 09/03/23 History Cholecalciferol [Vitamin D3 (25 50 mcg PO DAILY@1700 12/09/20 09/03/23 History Mcg = 1000 Iu)] Acetaminophen Tab [Tylenol] 650 mg PO Q4H PRN 11/04/21 09/03/23 History Aspirin EC [Ecotrin Low Dose] 81 mg PO DAILY@1700 11/04/21 09/03/23 History Clopidogrel [Plavix] 75 mg PO DAILY@0800 11/04/21 09/03/23 History Isosorbide Mononitrate ER [Imdur] 30 mg PO BID@0800,1700 02/08/22 09/03/23 History Ondansetron [Zofran] 4 mg PO BID PRN 02/08/22 09/03/23 History Calcium Acetate [PhosLo] 1,334 mg PO AC-TID 04/12/22 09/03/23 History Furosemide [Lasix] 60 mg PO BID@0800,1700 08/06/22 09/03/23 History carvediloL [Coreg] 12.5 mg PO SUMOWEFR@0800 08/06/22 09/03/23 History Ipratropium-Albuterol Nebulize 3 ml INHALATION RT-Q6H PRN 09/28/22 09/03/23 History [Duoneb 0.5 mg-3 mg/3 ml Soln] Loperamide [Imodium] 2 mg PO QID PRN 09/28/22 09/03/23 History allopurinoL [Zyloprim] 100 mg PO DAILY@0800 09/28/22 09/03/23 History Calcium Acetate [PhosLo] 667 mg PO HS 10/30/22 09/03/23 History Famotidine [Pepcid] 10 mg PO DAILY@0800 10/30/22 09/03/23 History Hydrocortisone Cream 1 applic TOPICAL BID PRN 10/30/22 09/03/23 History [Hydrocortisone 1% Cream] Interdry 10 1 applic TOPICAL BID@0800,2100 10/30/22 09/03/23 History Renal Multivitamin Formula Tab 1 tab PO DAILY@1700 10/30/22 09/03/23 History bisacodyL [Dulcolax] 10 mg RECTAL DAILY PRN 10/30/22 09/03/23 History carvediloL [Coreg] 12.5 mg PO DAILY@1700 10/30/22 09/03/23 History guaiFENesin SYRUP 100MG/5ML 200 mg PO Q4H PRN 10/30/22 09/03/23 History [Robitussin] Insulin Aspart [NovoLOG] See Protocol SQ ACHS 12/31/22 09/03/23 History Sennosides-Docusate Sodium 1 tab PO BID@0800,1700 12/31/22 09/03/23 History [Senokot-S] Liquacel 30 ml PO BID@0800,1700 04/05/23 09/03/23 History Gabapentin [Neurontin] 100 mg PO DAILY@0800 #2 cap 04/26/23 09/03/23 Rx Insulin Degludec [Tresiba] 10 units SQ HS@2130 #0 04/26/23 09/03/23 Rx Diclofenac Sodium Gel [Voltaren 1% 1 applic TOPICAL QID 09/03/23 09/03/23 History Gel] Gabapentin [Neurontin] 200 mg PO HS@199909/03/23 09/03/23 History HYDROcodone/APAP 5-325MG [[place] 1 tab PO Q6H PRN 09/03/23 09/03/23 History 5-325] Ipratropium-Albuterol Nebulize 3 ml INHALATION RT-Q6H 09/03/23 09/03/23 History [Duoneb 0.5 mg-3 mg/3 ml Soln] Lidocaine 5% Patch [Lidoderm] 1 patch TRANSDERM DAILY@0700 09/03/23 09/03/23 History Magnesium Hydroxide [Milk of 7,200 mg PO DIRECTED PRN 09/03/23 09/03/23 History Magnesia Concentrate] Melatonin 6 mg PO HS@209909/03/23 09/03/23 History Midodrine [ProAmatine] 5 mg PO TUTHSA@0500 09/03/23 09/03/23 History Na Phos,M-B/Na Phos,Di-Ba [Fleet 133 ml RECTAL DAILY PRN 09/03/23 09/03/23 History Adult] Venlafaxine HCl [Effexor] 37.5 mg PO DAILY@0800 09/03/23 09/03/23 History Vitamin E 1 applic TOPICAL BID@0800,1700 09/03/23 09/03/23 History Allergies Allergy/AdvReac Type Severity Reaction Status Date / Time No Known Allergies Allergy Verified 09/03/23 14:43 Physical Exam Vitals: Vital Signs Temp Pulse Pulse Resp BP BP Pulse Ox 09/04/23 11:47 92 09/04/23 11:35 91 09/04/23 07:00 97.5 F L 94 16 133/82 96 09/04/23 02:27 97.8 F 64 16 93/61 94 L 09/03/23 20:00 88 09/03/23 19:49 84 09/03/23 19:29 97.4 F L 70 15 140/84 100 09/03/23 17:35 97.5 F L 91 144/75 98 09/03/23 17:04 62 18 134/60 97 Intake and Output 09/03/23 09/04/23 09/04/23 22:59 06:59 14:59 Output Total 0 Balance 0 Output: Urine 0 Other: # Voids 1 Weight 112.037 kg Results - Lab Results Most recent lab results Calcium 9.8 mg/dL (8.4-10.2) 09/03/23 12:59 09/03/23 12:59 09/03/23 12:59 Assessment and Plan Plan: Assessment: 1. End-stage renal disease maintained on hemodialysis on Saturday schedule your AV graft. 2. Clotted AV graft. 3. Chronic kidney disease mineral bone disease maintained on PhosLo. 4. Diabetes mellitus. 5. Coronary disease with cardiac stents. 6. Mild hyperkalemia secondary to chronic kidney disease and missed dialysis. Status post [place]. Also on Lasix. Plan: Hemodialysis today and again tomorrow. Repeat potassium level now. Thank you for the consultation. I will continue to follow the patient with you during her hospital stay.
[2023-09-04] MEDS ORDERED: fentaNYL (PF) 50 MCG/ML 2 ML AMP ONE (14:31)
[2023-09-04] MEDS ORDERED: LIDOCAINE 1% INJ 10MG/ML (20 ML MDV) ONE (14:31)
[2023-09-04] MEDS ORDERED: HEPARIN SODIUM 1,000 UN/ML (10ML VL) ONE ×2 (14:31→15:12)
[2023-09-04] MEDS: LIDOCAINE 1% INJ 10MG/ML (20 ML MDV) SQ ONE (14:52)
[2023-09-04] MEDS: MIDAZOLAM 2 MG/2 ML VIAL IVP ONE ×3 (14:55→15:29)
[2023-09-04] MEDS: fentaNYL (PF) 50 MCG/1 ML VIAL IVP ONE ×2 (14:55→15:19)
[2023-09-04] MEDS: ALTEPLASE 2 MG VIAL (CATHFLO) MISCELLANE ONE ×2 (15:22→15:26)
[2023-09-04] MEDS: IOPAMIDOL-370 100ML BTL INTRATHECA ONE (15:40)
[2023-09-04] MEDS: SODIUM CHLORIDE 0.9% 1,000 ML IV ONE (15:40)
--- NOTE | 2023-09-04 15:54 | P.OP ---
Date of Procedure: 09/04/23 Description of Procedure: Date of Procedure: 09/04/2023 Description of Procedure: Preoperative diagnosis: Thrombosed left forearm loop graft Postoperative diagnosis: Same Procedure: Ultrasound-guided AV graft access 2 Fistulogram Pharmacal mechanical thrombectomy with 6-[place] AngioJet Percutaneous transluminal balloon angioplasty of the inflow 5 x 40, Percutaneous transdermal balloon angioplasty outflow 7 x 40 Moderate conscious sedation 50 minutes, personal monitoring certified RN administration with hemodynamic monitoring Surgeon: Shara Roper D.O. EBL: Less than 10 mL IV fluids: See records Urine output: Not measured Drains: None Complications: None immediately apparent Condition: Stable to recovery Operative indication and findings: Patient is a 68-year-old female with a loop graft from left upper arm who was unable to get dialysis on Saturday due to thrombosis of the graft. Her last dialysis was Saturday. She states there were no issues. She presents for fistulogram and intervention She seemingly understands the plan is willing to proceed. Procedure in detail: Patient was taken to the special suite and placed in supine position. Left upper extremity is prepped and draped in usual sterile fashion. A preprocedure timeout was performed, all parties were in agreement. Using ultrasound, initially in the outflow direction, the graft was accessed. Permanent images stored. Catheters and wires were utilized passed into the outflow vein and venogram was performed showing no evidence of obvious stenosis area catheter was then drawn back until the level of the outflow anastomosis which did appear to be thrombosed. tPA was instilled via a pullback method. Dwelling time was allowed and during this time, access was obtained towards the inflow direction. Again using ultrasound the graft was cannulated and a 6- [place]is[place]ili sheath was placed. Catheters and wires were placed into the brachial artery and images performed showing patent arterial vasculature That point the arterial inflow was treated with TPA instillation. While this was dwelling, the suction thrombectomy portion was performed of the outflow. Following this outflow imaging was performed. There was evidence of potential stenosis at the anastomosis therefore a 7 x 40 balloon was used for angioplasty. There was improvement there was good flow through. Attention was then turned towards the inflow. Suction thrombectomy was performed. An angiogram via the brachial jud ry was performed showing continuous flow through the entirety of the graft with mild stenosis of the arterial anastomosis. 5 x 40 balloon was utilized to angioplasty this inflow area. Repeat images performed, there was significant improvement of flow through the graft with resolution of the mild stenosis. There appeared to be adequate pulse to the graft with flow throughout. Final imaging was performed showing continued improvement of the outflow anastomosis. At that point catheters and wires were removed. The sheath was removed and [id number] sutures were placed at each site. Dressings were placed the patient was allowed awaken from her sedation and transferred to recovery in stable condition having tolerated her procedure well. Discussion was had with the patient, I would not believe the degree of stenosis should continue to cause the issues with thrombotic events to the graft itself given they were relatively minimal in appearance and there was no significant engraft gnosis identified. She may benefit from low-dose oral anticoagulation.
--- NOTE | 2023-09-04 16:10 | IR ---
EXAMINATION TYPE: IR fistula/abscess/sinus tract Intraoperative/procedural fluoroscopic services were provided. CLINICAL INDICATION:Female, 68 years old with history of thrombosed left arm fistula, 8.9min fluoro, 3.47Kwhx2; , [facility] Total fluoroscopy time is 0.9 min. DAP: 2.11 Gycm2 Please see the operative/procedural note for further details.
[2023-09-04] MEDS: ALTEPLASE 2 MG VIAL (CATHFLO) IV STA (16:22)
[2023-09-04] MEDS: HYDROcodone/APAP 5-325MG 1 EACH TAB PO PRN (17:59)
[2023-09-04] MEDS: FOLIC ACID-VIT B COMPLEX-VIT C 1 CAP PO SCH (18:00)
[2023-09-04] MEDS: CHOLECALCIFEROL 25 MCG (1000 IU) TABLET PO SCH (18:00)
[2023-09-04] MEDS: ASPIRIN 81 MG PO SCH (18:00)
[2023-09-04 18:06] LABS: Glucose,Whole Blood 150 mg/dL (70-110)
[2023-09-04] MEDS: MIDODRINE 5 MG TAB PO SCH (19:33)
[2023-09-04] MEDS: MIDODRINE 5 MG TAB PO STA ×2 (20:26→22:02)
[2023-09-04 20:34] LABS: Glucose,Whole Blood 189 mg/dL (70-110)
[2023-09-04] MEDS: IPRATROPIUM-ALBUTEROL 3 ML NEB INHALATION SCH (20:47)
[2023-09-04] MEDS ORDERED: IPRATROPIUM-ALBUTEROL 3 ML NEB INHALATION PRN (20:52)
[2023-09-04 21:45] LABS: Hepatitis B Surface Antigen Nonreactive
--- NOTE | 2023-09-04 23:42 | P.PN ---
Subjective Progress Note Date: 09/04/23 HISTORY OF PRESENT ILLNESS: 68-year-old: Patient in mild manage for the last few years with past history of coronary artery disease, asthma/COPD, history of CVA, type 2 diabetes, g astrointestinal bleed, history of myocardial infarction, history of pulmonary embolism, end-stage renal disease on hemodialysis for the last 2 years, history of obstructive sleep apnea and history of hypothyroidism who had a temporary dialysis line for over a year but had left forearm fistulogram done this last year which has been doing hemodialysis through her fistula graft for many months with no problem. Apparently she had her dialysis fistula graft not functioning at 5:30 in the morning when went back to dialysis on 09/03/2023 and believes he might have an it either thrombus or might need to be cleaned up. Patient ended up sent to the emergency department at [facility] where was seen and evaluated she is feeling well otherwise but she will be delaying her dialysis for at least 24 hours. Patient had seen Dr. Roper before who did a fistulogram next this last year and has been seeing her every so often for follow-up on PAD as well. The patient will be admitted to go to the [facility] for possible thrombectomy of the fistula graft tomorrow morning at 09/04/2023. 09/04/2023: She is going to the [facility] today for thrombectomy of the left forearm loop graft hopefully will be able to use a catheter before the end of the day the patient BUN is above 100 should be able to go to the dialysis today. If all goes well possibly return to [facility] today or [facility] by tomorrow. REVIEW OF SYSTEMS: CONSTITUTIONAL: Well-developed no acute respiratory distress. EYES: No icterus sclerae, no conjunctivitis. EARS, NOSE, MOUTH, THROAT, and FACE: No sore throat, lymphadenopathy, carotid bruits or deformity. RESPIRATORY: No SOB cough or wheezes. CARDIOVASCULAR: No CP, Palpitation, PND, Orthopnea, or angina. GASTROINTESTINAL: No Abd pain, Nausea or vomiting, no Diarrhea or constipation, No GI Bleed, no distention or masses. GENITOURINARY: Does not make much urine she is on hemodialysis. INTEGUMENT/BREAST: Negative for any muscular injury with mild osteoarthritis.. HEMATOLOGIC/LYMPHATIC: Negative for bleed or purpura. MUSCULOSKELTAL: Generalized back and muscle pain. NEURLOGICAL: No LOC, Sz or syncope, blurred vision dizziness or abnormality. Patient had severe weakness of the lower extremity ambulate with a wheelchair.. BEHAVIORAL/PSYCH: Negative. ENDOCRINE: Negative. PHYSICAL EXAMINATION: General Appearance: Alert, cooperative, no distress, appears stated age. Neck HEENT: Supple, no lymphadenopathy, no thyroid enlargement, no carotid bruits. Lungs: Clear to auscultation without crackles or wheezes no rhonchi, no deformity. Chest Wall: Decreased expansion with deep inspiration no tenderness and no deformity was found on exam, no costochondral pain or discomfort. Heart: Regular rate and rhythm, S1, S2 normal, positive systolic murmur. Back: Symmetric, no curvature, ROM normal, slight discomfort in the lower lumbar area with mild scoliosis. Abdomen: Soft, non-tender, bowel sounds active all four quadrants, no masses, no organomegaly. Extremities: Left forearm fistula graft still have slight functioning with less pulsation and normal, Slight edema of the lower extremity with mild vascular cellulitis and slight discoloration from the knee down. Pulses: 2+ and symmetric. Skin: Skin color, texture, tugor normal, no rashes or lesions. Neurologic: Alert oriented x3 cranial nerves II through XII intact, generalized weakness of the lower extremity not able to do any gait exam. ASSESSMENT AND PLAN: _End-stage renal disease on hemodialysis 3 times a week. Resume dialysis as early as today started fistula graft thrombectomy is done. _Nonfunctioning fistula graft of the left forearm will require thrombectomy which will be done today in the [facility]. _Atherosclerotic heart disease no angina she been on Coreg, isosorbide mononitrate, furosemide, Plavix and atorvastatin. _Type 2 diabetes continue Tresiba 10 units at bedtime and still on NovoLog per sliding scale coverage. _Chronic neuropathy has been on gabapentin 200 mg at bedtime and 100 mg in the morning. _Asthma/COPD: Still on montelukast 10 mg a day along with ipratropium albuterol nebulizer, no flareup lately. _Cardiomyopathy: Trying to stay on her medication the best she can but developed hypotension around dialysis every day she is remain on Coreg, isosorbide, Lasix and Plavix. _Hypothyroidism: Resume levothyroxine at 175 mcg daily. _Iatrogenic hypotension: Blood pressure is much better so far continue to use midodrine mostly before dialysis. _Chronic pain syndrome: Remain on hydrocodone along with gabapentin. _Chronic anemia: Continue multivitamin continue Procrit through dialysis. Discharge planning if all goes well the patient had a thrombectomy successfully with dialysis today she should be able to go back tomorrow with if not maximal by tomorrow morning. Objective - Vital Signs Vital signs: Vital Signs Temp 97.8 F 09/04/23 02:27 Pulse 64 09/04/23 02:27 Resp 16 09/04/23 02:27 BP 93/61 09/04/23 02:27 Pulse Ox 94 L 09/04/23 02:27 FiO2 Intake & Output 09/03/23 09/03/23 09/04/23 06:59 18:59 06:59 Output Total 0 Balance 0 Weight 112.037 kg Output: Urine 0 - Labs CBC & Chem 7: 09/03/23 12:59 09/04/23 17:41 Labs: Abnormal Lab Results - Last 24 Hours (Table) 09/03/23 09/03/23 09/03/23 Range/Units 12:59 12:59 12:59 Plt Count 129 L (150-450) k/uL PT 9.9 L (10.0-12.5) sec Sodium 135 L (137-145) mmol/L Potassium 5.2 H (3.5-5.1) mmol/L Chloride 96 L (98-107) mmol/L BUN 103 H* (7-17) mg/dL Creatinine 7.85 H* (0.52-1.04) mg/dL Glucose 136 H (74-99) mg/dL POC Glucose (mg/dL) (70-110) mg/dL AST 38 H (14-36) U/L 09/03/23 09/03/23 Range/Units 17:34 20:48 Plt Count (150-450) k/uL PT (10.0-12.5) sec Sodium (137-145) mmol/L Potassium (3.5-5.1) mmol/L Chloride (98-107) mmol/L BUN (7-17) mg/dL Creatinine (0.52-1.04) mg/dL Glucose (74-99) mg/dL POC Glucose (mg/dL) 153 H 181 H (70-110) mg/dL AST (14-36) U/L
[2023-09-05 05:38] LABS: Glucose,Whole Blood 135 mg/dL (70-110)
--- NOTE | 2023-09-05 07:04 | P.DS ---
Providers Date of admission: 09/03/23 13:18 Attending physician: Cristiano East Consults: 09/03/23 13:17 Consult Physician Urgent Consulting Provider: Shara Roper Consult Reason/Comments: Fistula failure Do you want consulting provider notified?: Yes 09/03/23 14:36 Consult Physician Routine Consulting Provider: Merary Spencer Consult Reason/Comments: dialysis patient Do you want consulting provider notified?: Yes Primary care physician: [facility] Course: HISTORY OF PRESENT ILLNESS: 68-year-old: Patient in mild manage for the last few years with past history of coronary artery disease, asthma/COPD, history of CVA, type 2 diabetes, gastrointestinal bleed, history of myocardial infarction, history of pulmonary embolism, end-stage renal disease on hemodialysis for the last 2 years, history of obstructive sleep apnea and history of hypothyroidism who had a temporary dialysis line for over a year but had left forearm fistulogram done this last year which has been doing hemodialysis through her fistula graft for many months with no problem. Apparently she had her dialysis fistula graft not functioning at 5:30 in the morning when went back to dialysis on 09/03/2023 and believes he might have an it either thrombus or might need to be cleaned up. Patient ended up sent to the emergency department at [facility] where was seen and evaluated she is feeling well otherwise but she will be delaying her dialysis for at least 24 hours. Patient had seen Dr. Roper before who did a fistulogram next this last year and has been seeing her every so often for follow-up on PAD as well. The patient will be admitted to go to the [facility] for possible thrombectomy of the fistula graft tomorrow morning at 09/04/2023. 09/04/2023: She is going to the [facility] today for thrombectomy of the left forearm loop graft hopefully will be able to use a catheter before the end of the day the patient BUN is above 100 should be able to go to the dialysis today. If all goes well possibly return to [facility] today or maximum by tomorrow. REVIEW OF SYSTEMS: CONSTITUTIONAL: Well-developed no acute respiratory distress. EYES: No icterus sclerae, no conjunctivitis. EARS, NOSE, MOUTH, THROAT, and FACE: No sore throat, lymphadenopathy, carotid bruits or deformity. RESPIRATORY: No SOB cough or wheezes. CARDIOVASCULAR: No CP, Palpitation, PND, Orthopnea, or angina. GASTROINTESTINAL: No Abd pain, Nausea or vomiting, no Diarrhea or constipation, No GI Bleed, no distention or masses. GENITOURINARY: Does not make much urine she is on hemodialysis. INTEGUMENT/BREAST: Negative for any muscular injury with mild osteoarthritis.. HEMATOLOGIC/LYMPHATIC: Negative for bleed or purpura. MUSCULOSKELTAL: Generalized back and muscle pain. NEURLOGICAL: No LOC, Sz or syncope, blurred vision dizziness or abnormality. Patient had severe weakness of the lower extremity ambulate with a wheelchair.. BEHAVIORAL/PSYCH: Negative. ENDOCRINE: Negative. PHYSICAL EXAMINATION: General Appearance: Alert, cooperative, no distress, appears stated age. Neck HEENT: Supple, no lymphadenopathy, no thyroid enlargement, no carotid bruits. Lungs: Clear to auscultation without crackles or wheezes no rhonchi, no deformity. Chest Wall: Decreased expansion with deep inspiration no tenderness and no deformity was found on exam, no costochondral pain or discomfort. Heart: Regular rate and rhythm, S1, S2 normal, positive systolic murmur. Back: Symmetric, no curvature, ROM normal, slight discomfort in the lower lumbar area with mild scoliosis. Abdomen: Soft, non-tender, bowel sounds active all four quadrants, no masses, no organomegaly. Extremities: Left forearm fistula graft still have slight functioning with less pulsation and normal, Slight edema of the lower extremity with mild vascular cellulitis and slight discoloration from the knee down. Pulses: 2+ and symmetric. Skin: Skin color, texture, tugor normal, no rashes or lesions. Neurologic: Alert oriented x3 cranial nerves II through XII intact, generalized weakness of the lower extremity not able to do any gait exam. ASSESSMENT AND PLAN: _End-stage renal disease on hemodialysis 3 times a week. Resume dialysis as early as today started fistula graft thrombectomy is done. _Nonfunctioning fistula graft of the left forearm will require thrombectomy which will be done today in the [facility]. _Atherosclerotic heart disease no angina she been on Coreg, isosorbide mononitrate, furosemide, Plavix and atorvastatin. _Type 2 diabetes continue Tresiba 10 units at bedtime and still on NovoLog per sliding scale coverage. _Chronic neuropathy has been on gabapentin 200 mg at bedtime and 100 mg in the morning. _Asthma/COPD: Still on montelukast 10 mg a day along with ipratropium albuterol nebulizer, no flareup lately. _Cardiomyopathy: Trying to stay on her medication the best she can but developed hypotension around dialysis every day she is remain on Coreg, isosorbide, Lasix and Plavix. _Hypothyroidism: Resume levothyroxine at 175 mcg daily. _Iatrogenic hypotension: Blood pressure is much better so far continue to use midodrine mostly before dialysis. _Chronic pain syndrome: Remain on hydrocodone along with gabapentin. _Chronic anemia: Continue multivitamin continue Procrit through dialysis. Hospital course: Patient was admitted to the hospital ended up going to the [facility] and had thrombectomy done for her fistula with Dr. Roper vascular, procedure went successful with no problem. Patient ended up having inpatient hemodialysis afterward with his history of working perfectly fine with no problem. She will be due for her regular routine hemodialysis patient will be ready to be discharged back to [facility]. Medication reconciliation was done today prescription was sent to her long-term pharmacy at [facility]. Patient be discharged back to [facility] today. Plan - Discharge Summary New Discharge Prescriptions: New Gabapentin [Neurontin] 100 mg PO DAILY@0800 #30 cap Ipratropium-Albuterol Nebulize [Duoneb 0.5 mg-3 mg/3 ml Soln] 3 ml INHALATION RT-TID PRN each PRN Reason: Shortness Of Breath Or Wheezing Continue Montelukast [Singulair] 10 mg PO HS@2100 Levothyroxine Sodium [Synthroid] 175 mcg PO DAILY@0800 Atorvastatin [Lipitor] 40 mg PO HS Cholecalciferol [Vitamin D3 (25 Mcg = 1000 Iu)] 50 mcg PO DAILY@1700 Acetaminophen Tab [Tylenol] 650 mg PO Q4H PRN PRN Reason: Fever And/ Or Pain Aspirin EC [Ecotrin Low Dose] 81 mg PO DAILY@1700 Clopidogrel [Plavix] 75 mg PO DAILY@0800 Ondansetron [Zofran] 4 mg PO BID PRN PRN Reason: Nausea-takes w/dialysis Isosorbide Mononitrate ER [Imdur] 30 mg PO BID@0800,1700 allopurinoL [Zyloprim] 100 mg PO DAILY@0800 Loperamide [Imodium] 2 mg PO QID PRN PRN Reason: Diarrhea carvediloL [Coreg] 12.5 mg PO DAILY@1700 Insulin Aspart [NovoLOG] See Protocol SQ ACHS Sennosides-Docusate Sodium [Senokot-S] 1 tab PO BID@0800,1700 Gabapentin [Neurontin] 100 mg PO DAILY@0800 #2 cap Insulin Degludec [Tresiba] 10 units SQ HS@2130 #0 Ipratropium-Albuterol Nebulize [Duoneb 0.5 mg-3 mg/3 ml Soln] 3 ml INHALATION RT-Q6H Magnesium Hydroxide [Milk of Magnesia Concentrate] 7,200 mg PO DIRECTED PRN PRN Reason: 2 days no BM Melatonin 6 mg PO HS@2100 Midodrine [ProAmatine] 5 mg PO TUTHSA@0500 Na Phos,M-B/Na Phos,Di-Ba [Fleet Adult] 133 ml RECTAL DAILY PRN PRN Reason: Constipation Venlafaxine HCl [Effexor] 37.5 mg PO DAILY@0800 Vitamin E 1 applic TOPICAL BID@0800,1700 HYDROcodone/APAP 5-325MG [[place] 5-325] 1 tab PO Q6H PRN #20 tab PRN Reason: Pain Calcium Acetate [PhosLo] 1,334 mg PO AC-TID Furosemide [Lasix] 60 mg PO BID@0800,1700 carvediloL [Coreg] 12.5 mg PO SUMOWEFR@0800 Ipratropium-Albuterol Nebulize [Duoneb 0.5 mg-3 mg/3 ml Soln] 3 ml INHALATION RT-Q6H PRN PRN Reason: Shortness Of Breath Hydrocortisone Cream [Hydrocortisone 1% Cream] 1 applic TOPICAL BID PRN PRN Reason: Rash bisacodyL [Dulcolax] 10 mg RECTAL DAILY PRN PRN Reason: Constipation Renal Multivitamin Formula Tab 1 tab PO DAILY@1700 Calcium Acetate [PhosLo] 667 mg PO HS Famotidine [Pepcid] 10 mg PO DAILY@0800 Interdry 10 1 applic TOPICAL BID@0800,2100 Liquacel 30 ml PO BID@0800,1700 Diclofenac Sodium Gel [Voltaren 1% Gel] 1 applic TOPICAL QID Lidocaine 5% Patch [Lidoderm 5% Patch] 1 patch TRANSDERM DAILY@0700 Gabapentin [Neurontin] 200 mg PO HS@1999 #60 cap Discontinued guaiFENesin SYRUP 100MG/5ML [Robitussin] 200 mg PO Q4H PRN PRN Reason: Cough Discharge Medication List Levothyroxine Sodium [Synthroid] 175 mcg PO DAILY@0811/21/17 [History] Montelukast [Singulair] 10 mg PO HS@209911/21/17 [History] Atorvastatin [Lipitor] 40 mg PO HS 09/08/20 [History] Cholecalciferol [Vitamin D3 (25 Mcg = 1000 Iu)] 50 mcg PO DAILY@169912/09/20 [History] Acetaminophen Tab [Tylenol] 650 mg PO Q4H PRN 11/04/21 [History] Aspirin EC [Ecotrin Low Dose] 81 mg PO DAILY@169911/04/21 [History] Clopidogrel [Plavix] 75 mg PO DAILY@0811/04/21 [History] Isosorbide Mononitrate ER [Imdur] 30 mg PO BID@0800,1700 02/08/22 [History] Ondansetron [Zofran] 4 mg PO BID PRN 02/08/22 [History] Calcium Acetate [PhosLo] 1,334 mg PO AC-TID 04/12/22 [History] Furosemide [Lasix] 60 mg PO BID@0800,1700 08/06/22 [History] carvediloL [Coreg] 12.5 mg PO SUMOWEFR@79908/06/22 [History] Ipratropium-Albuterol Nebulize [Duoneb 0.5 mg-3 mg/3 ml Soln] 3 ml INHALATION RT-Q6H PRN 09/28/22 [History] Loperamide [Imodium] 2 mg PO QID PRN 09/28/22 [History] allopurinoL [Zyloprim] 100 mg PO DAILY@0809/28/22 [History] Calcium Acetate [PhosLo] 667 mg PO HS 10/30/22 [History] Famotidine [Pepcid] 10 mg PO DAILY@0800 10/30/22 [History] Hydrocortisone Cream [Hydrocortisone 1% Cream] 1 applic TOPICAL BID PRN 10/30/22 [History] Interdry 10 1 applic TOPICAL BID@0800,209910/30/22 [History] Renal Multivitamin Formula Tab 1 tab PO DAILY@17010/30/22 [History] bisacodyL [Dulcolax] 10 mg RECTAL DAILY PRN 10/30/22 [History] carvediloL [Coreg] 12.5 mg PO DAILY@17010/30/22 [History] Insulin Aspart [NovoLOG] See Protocol SQ ACHS 12/31/22 [History] Sennosides-Docusate Sodium [Senokot-S] 1 tab PO BID@0800,1700 12/31/22 [History] Liquacel 30 ml PO BID@0800,1700 04/05/23 [History] Gabapentin [Neurontin] 100 mg PO DAILY@0800 #2 cap 04/26/23 [Rx] Insulin Degludec [Tresiba] 10 units SQ HS@2130 #0 04/26/23 [Rx] Diclofenac Sodium Gel [Voltaren 1% Gel] 1 applic TOPICAL QID 09/03/23 [History] Ipratropium-Albuterol Nebulize [Duoneb 0.5 mg-3 mg/3 ml Soln] 3 ml INHALATION RT-Q6H 09/03/23 [History] Lidocaine 5% Patch [Lidoderm 5% Patch] 1 patch TRANSDERM DAILY@0709/03/23 [History] Magnesium Hydroxide [Milk of Magnesia Concentrate] 7,200 mg PO DIRECTED PRN 09/03/23 [History] Melatonin 6 mg PO HS@209909/03/23 [History] Midodrine [ProAmatine] 5 mg PO TUTHSA@0500 09/03/23 [History] Na Phos,M-B/Na Phos,Di-Ba [Fleet Adult] 133 ml RECTAL DAILY PRN 09/03/23 [History] Venlafaxine HCl [Effexor] 37.5 mg PO DAILY@0800 09/03/23 [History] Vitamin E 1 applic TOPICAL BID@0800,1700 09/03/23 [History] Gabapentin [Neurontin] 100 mg PO DAILY@0800 #30 cap 09/05/23 [Rx] Gabapentin [Neurontin] 200 mg PO HS@1999 #60 cap 09/05/23 [Rx] HYDROcodone/APAP 5-325MG [[place] 5-325] 1 tab PO Q6H PRN #20 tab 09/05/23 [Rx] Ipratropium-Albuterol Nebulize [Duoneb 0.5 mg-3 mg/3 ml Soln] 3 ml INHALATION R T-TID PRN each 09/05/23 [Rx] Follow up Appointment(s)/Referral(s): Merary Spencer MD [STAFF PHYSICIAN] - 1 Week Cristiano East MD [Primary Care Provider] - 1-2 days Shara Roper DO [STAFF PHYSICIAN] - 1 Week Discharge Disposition: TRANSFER TO SNF/ECF
--- NOTE | 2023-09-05 07:05 | P.PN ---
Subjective Progress Note Date: 09/05/23 HISTORY OF PRESENT ILLNESS: 68-year-old: Patient in mild manage for the last few years with past history of coronary artery disease, asthma/COPD, history of CVA, type 2 diabetes, g astrointestinal bleed, history of myocardial infarction, history of pulmonary embolism, end-stage renal disease on hemodialysis for the last 2 years, history of obstructive sleep apnea and history of hypothyroidism who had a temporary dialysis line for over a year but had left forearm fistulogram done this last year which has been doing hemodialysis through her fistula graft for many months with no problem. Apparently she had her dialysis fistula graft not functioning at 5:30 in the morning when went back to dialysis on 09/03/2023 and believes he might have an it either thrombus or might need to be cleaned up. Patient ended up sent to the emergency department at [facility] where was seen and evaluated she is feeling well otherwise but she will be delaying her dialysis for at least 24 hours. Patient had seen Dr. Roper before who did a fistulogram next this last year and has been seeing her every so often for follow-up on PAD as well. The patient will be admitted to go to the [facility] for possible thrombectomy of the fistula graft tomorrow morning at 09/04/2023. 09/04/2023: She is going to the [facility] today for thrombectomy of the left forearm loop graft hopefully will be able to use a catheter before the end of the day the patient BUN is above 100 should be able to go to the dialysis today. If all goes well possibly return to [facility] today or [facility] by tomorrow. 09/05/2023: All went well so far thrombectomy successful patient back in her regular routine hemodialysis. Patient will return tomorrow with [place] today. REVIEW OF SYSTEMS: CONSTITUTIONAL: Well-developed no acute respiratory distress. EYES: No icterus sclerae, no conjunctivitis. EARS, NOSE, MOUTH, THROAT, and FACE: No sore throat, lymphadenopathy, carotid bruits or deformity. RESPIRATORY: No SOB cough or wheezes. CARDIOVASCULAR: No CP, Palpitation, PND, Orthopnea, or angina. GASTROINTESTINAL: No Abd pain, Nausea or vomiting, no Diarrhea or constipation, No GI Bleed, no distention or masses. GENITOURINARY: Does not make much urine she is on hemodialysis. INTEGUMENT/BREAST: Negative for any muscular injury with mild osteoarthritis.. HEMATOLOGIC/LYMPHATIC: Negative for bleed or purpura. MUSCULOSKELTAL: Generalized back and muscle pain. NEURLOGICAL: No LOC, Sz or syncope, blurred vision dizziness or abnormality. Patient had severe weakness of the lower extremity ambulate with a wheelchair.. BEHAVIORAL/PSYCH: Negative. ENDOCRINE: Negative. PHYSICAL EXAMINATION: General Appearance: Alert, cooperative, no distress, appears stated age. Neck HEENT: Supple, no lymphadenopathy, no thyroid enlargement, no carotid brui ts. Lungs: Clear to auscultation without crackles or wheezes no rhonchi, no deformity. Chest Wall: Decreased expansion with deep inspiration no tenderness and no deformity was found on exam, no costochondral pain or discomfort. Heart: Regular rate and rhythm, S1, S2 normal, positive systolic murmur. Back: Symmetric, no curvature, ROM normal, slight discomfort in the lower lumbar area with mild scoliosis. Abdomen: Soft, non-tender, bowel sounds active all four quadrants, no masses, no organomegaly. Extremities: Left forearm fistula graft still have slight functioning with less pulsation and normal, Slight edema of the lower extremity with mild vascular cellulitis and slight discoloration from the knee down. Pulses: 2+ and symmetric. Skin: Skin color, texture, tugor normal, no rashes or lesions. Neurologic: Alert oriented x3 cranial nerves II through XII intact, generalized weakness of the lower extremity not able to do any gait exam. ASSESSMENT AND PLAN: _End-stage renal disease on hemodialysis 3 times a week. Resume dialysis as early as today started fistula graft thrombectomy is done. _Nonfunctioning fistula graft of the left forearm will require thrombectomy which will be done today in the [facility]. _Atherosclerotic heart disease no angina she been on Coreg, isosorbide mononitrate, furosemide, Plavix and atorvastatin. _Type 2 diabetes continue Tresiba 10 units at bedtime and still on NovoLog per sliding scale coverage. _Chronic neuropathy has been on gabapentin 200 mg at bedtime and 100 mg in the morning. _Asthma/COPD: Still on montelukast 10 mg a day along with ipratropium albuterol nebulizer, no flareup lately. _Cardiomyopathy: Trying to stay on her medication the best she can but developed hypotension around dialysis every day she is remain on Coreg, isosorbide, Lasix and Plavix. _Hypothyroidism: Resume levothyroxine at 175 mcg daily. _Iatrogenic hypotension: Blood pressure is much better so far continue to use midodrine mostly before dialysis. _Chronic pain syndrome: Remain on hydrocodone along with gabapentin. _Chronic anemia: Continue multivitamin continue Procrit through dialysis. Discharge planning all went well patient be discharged back tomorrow today. Objective - Vital Signs Vital signs: Vital Signs Temp 97.8 F 09/05/23 02:31 Pulse 62 09/05/23 02:31 Resp 15 09/05/23 02:31 BP 86/53 09/05/23 02:31 Pulse Ox 94 L 09/05/23 02:31 FiO2 Intake & Output 09/04/23 09/04/23 09/05/23 06:59 18:59 06:59 Intake Total 150 550 Output Total 0 9 Balance 0 150 -1549 Intake: IV 150 Hemodialysis 550 Output: Urine 0 Hemodialysis 2098 Other: # Voids 1 1 2 - Labs CBC & Chem 7: 09/03/23 12:59 09/04/23 17:41 Labs: Abnormal Lab Results - Last 24 Hours (Table) 09/04/23 09/04/23 09/04/23 Range/Units 10:48 12:18 17:41 Potassium 6.0 H (3.5-5.1) mmol/L POC Glucose (mg/dL) 206 H (70-110) mg/dL Hep Bs Antibody A (Negative) 09/04/23 09/04/23 09/05/23 Range/Units 18:05 20:33 05:35 Potassium (3.5-5.1) mmol/L POC Glucose (mg/dL) 150 H 189 H 135 H (70-110) mg/dL Hep Bs Antibody (Negative)
[2023-09-05 08:15] VITALS: RESP 16
--- NOTE | 2023-09-05 10:39 | P.PN ---
Subjective Progress Note Date: 09/05/23 Principal diagnosis: Thrombosed AV graft Patient is seen and examined today as a follow-up. Yesterday she underwent fistulogram, thrombectomy and balloon angioplasty thrombosed left forearm loop graft. She had dialysis yesterday without any complications. They are at the bedside now for a second dialysis treatment. She denies any shortness of breath, chest pain, abdominal pain, nausea or vomiting. No extremity swelling. Objective - Vital Signs Vital signs: Vital Signs Temp 97.6 F 09/05/23 07:00 Pulse 59 L 09/05/23 07:00 Resp 16 09/05/23 07:00 BP 92/49 09/05/23 07:00 Pulse Ox 96 09/05/23 07:00 FiO2 Intake & Output 09/04/23 09/05/23 09/05/23 18:59 06:59 18:59 Intake Total 150 550 Output Total 2098 Balance 150 -1549 Intake: IV 150 Hemodialysis 550 Output: Hemodialysis 2098 Other: # Voids 1 2 - Exam General appearance: The patient is alert, oriented, appears in no acute distres s. HET: Head is normocephalic and atraumatic. Pupils are equal and reactive. Neck: Supple. Heart: Regular. Lungs: Equal expansion, normal respiratory effort. Abdomen: Soft, nontender, nondistended. Extremities: Normal skin color and turgor. Left forearm loop graft with palpable thrill and audible bruit. Sutures intact, removed. Neurological: No focal deficits. Strength and sensation are grossly intact. - Labs CBC & Chem 7: 09/03/23 12:59 09/04/23 17:41 Labs: Abnormal Lab Results - Last 24 Hours (Table) 09/04/23 09/04/23 09/04/23 Range/Units 10:48 12:18 17:41 Potassium 6.0 H (3.5-5.1) mmol/L POC Glucose (mg/dL) 206 H (70-110) mg/dL Hep Bs Antibody A (Negative) 09/04/23 09/04/23 09/05/23 Range/Units 18:05 20:33 05:35 Potassium (3.5-5.1) mmol/L POC Glucose (mg/dL) 150 H 189 H 135 H (70-110) mg/dL Hep Bs Antibody (Negative) Assessment and Plan Assessment: 1. Thrombosed left upper extremity loop AV graft status post fistulogram, thrombectomy and angioplasty 2. End-stage renal disease requiring hemodialysis Plan: 1. Consistent carbohydrate diet 2. Patient is status post fistulogram, thrombectomy and angioplasty 3. Continue with dialysis as recommended by nephrology 4. Will start patient on Eliquis 2.5 mg twice daily 5. Sutures removed Thank you for this consultation, patient is cleared from vascular surgery for discharge. We will sign off at this time. Patient to follow-up with Dr. Roper in 1 to 2 weeks. The impression and plan of care has been dictated as directed. Dr. Gage I performed a history and examination of this patient, discussed the same with the dictator. I agree with the dictator's note ,documented as a scribe. Any additional findings or plans will be noted.
[2023-09-05 12:16] LABS: Glucose,Whole Blood 114 mg/dL (70-110)
[2023-09-05] MEDS: APIXABAN 2.5 MG TABLET PO SCH (12:43)
--- NOTE | 2023-09-05 12:44 | P.PN ---
Subjective Patient is seen in follow-up for end-stage renal disease. She is maintained on hemodialysis on Saturday schedule. Blood pressure dropped during dialysis yesterday as she had received all her blood pressure meds prior. Currently tolerating dialysis well. Resting in bed. No active complaints. Vital signs are stable. General: No acute distress. HEENT: Head exam is unremarkable. LUNGS: No audible rhonchi or wheezes. HEART: Rate and Rhythm are regular. ABDOMEN: Nontender. EXTREMITITES: Trace edema. Objective - Vital Signs Vital signs: Vital Signs Temp 97.4 F L 09/05/23 12:24 Pulse 66 09/05/23 12:24 Resp 16 09/05/23 12:24 BP 109/54 09/05/23 12:24 Pulse Ox 96 09/05/23 07:00 FiO2 Intake & Output 09/04/23 09/05/23 09/05/23 18:59 06:59 18:59 Intake Total 150 550 400 Output Total 20980 Balance 150 -1549 -1900 Intake: IV 150 Hemodialysis 550 400 Output: Hemodialysis 2098 2299 Other: # Voids 1 2 - Labs CBC & Chem 7: 09/03/23 12:59 09/04/23 17:41 Labs: Abnormal Lab Results - Last 24 Hours (Table) 09/04/23 09/04/23 09/04/23 Range/Units 10:48 17:41 18:05 Potassium 6.0 H (3.5-5.1) mmol/L POC Glucose (mg/dL) 150 H (70-110) mg/dL Hep Bs Antibody A (Negative) 09/04/23 09/05/23 09/05/23 Range/Units 20:33 05:35 12:14 Potassium (3.5-5.1) mmol/L POC Glucose (mg/dL) 189 H 135 H 114 H (70-110) mg/dL Hep Bs Antibody (Negative) Assessment and Plan Plan: Assessment: 1. End-stage renal disease maintained on hemodialysis on Saturday schedule your AV graft. 2. Clotted AV graft. Underwent fistulogram with thrombectomy September 03, 2022. Access currently working well. 3. Chronic kidney disease mineral bone disease maintained on PhosLo. 4. Diabetes mellitus. 5. Coronary disease with cardiac stents. 6. Mild hyperkalemia secondary to chronic kidney disease and missed dialysis. Status post Lokelma. Also on Lasix. Expect further improvement postdialysis. Plan: Currently seen while undergoing hemodialysis. Next treatment Saturday. Possible discharge back to [facility] today.
[2023-09-05 12:54] VITALS: BP 109/54; PULSE 66; TEMP 97.4
== END 2023-09-05 13:36 ==
LOC: EC 11:38 → 6NMEDSUR 13:18
PROVIDERS: ADMIT Internal Medicine Geriatric Medicine; ATTEND Internal Medicine Geriatric Medicine
DX: T82.868A Thrombosis due to vascular prosthetic devices, implants and grafts, initial encounter (principal); E87.5 Hyperkalemia; I25.10 Atherosclerotic heart disease of native coronary artery without angina pectoris; J44.9 Chronic obstructive pulmonary disease, unspecified; E11.22 Type 2 diabetes mellitus with diabetic chronic kidney disease; I13.2 Hypertensive heart and chronic kidney disease with heart failure and with stage 5 chronic kidney disease, or end stage renal disease; I50.9 Heart failure, unspecified; N18.6 End stage renal disease; G47.33 Obstructive sleep apnea (adult) (pediatric); E03.9 Hypothyroidism, unspecified; E11.40 Type 2 diabetes mellitus with diabetic neuropathy, unspecified; I42.9 Cardiomyopathy, unspecified; I95.89 Other hypotension; G89.4 Chronic pain syndrome; D63.1 Anemia in chronic kidney disease; N25.0 Renal osteodystrophy; E78.5 Hyperlipidemia, unspecified; E11.42 Type 2 diabetes mellitus with diabetic polyneuropathy; F32.A Depression, unspecified; F41.9 Anxiety disorder, unspecified; I25.2 Old myocardial infarction; Y82.8 Other medical devices associated with adverse incidents; Z85.850 Personal history of malignant neoplasm of thyroid; Z86.711 Personal history of pulmonary embolism; Z86.73 Personal history of transient ischemic attack (TIA), and cerebral infarction without residual deficits; Z95.5 Presence of coronary angioplasty implant and graft; Z99.2 Dependence on renal dialysis; Z79.02 Long term (current) use of antithrombotics/antiplatelets; Z79.899 Other long term (current) drug therapy; Z79.4 Long term (current) use of insulin; Z79.890 Hormone replacement therapy; Z79.82 Long term (current) use of aspirin
CPT/HCPCS: 90935 ×2; 99285; 36415; 94640 ×4; 36905; 80053; 84132; 85025; 85610; 85730; 86706; 87340; G0378 ×3; C1894; C1769 ×3; C1725; C1757; J2250; J2001; J2997; Q9967; J3010

== ENCOUNTER 2024-01-31 08:17 | Day surgery (SDC) | payer MEDICARE, OTHER ==
[2024-01-31] MEDS ORDERED: MIDAZOLAM 2 MG/2 ML VIAL ONE (10:00)
[2024-01-31] MEDS ORDERED: fentaNYL (PF) 50 MCG/ML 2 ML AMP ONE ×2 (10:00)
[2024-01-31] MEDS ORDERED: LIDOCAINE 1% INJ 10MG/ML (20 ML MDV) ONE ×2 (10:02)
[2024-01-31] MEDS: IOPAMIDOL-370 100ML BTL INJ ONE (10:30)
--- NOTE | 2024-03-23 09:48 | P.OP ---
Date of Procedure: 01/31/24 Description of Procedure: PREOPERATIVE DIAGNOSIS: End-stage renal disease. POSTOPERATIVE DIAGNOSES: End-stage renal disease PROCEDURES: 1. Ultrasound-guided left upper extremity AV fistula access 2. Fistulogram. 3. Percutaneous transluminal balloon angioplasty, 6 x 60, 8 x 60 drug-coated balloon venous outflow SPECIMEN: None. ESTIMATED BLOOD LOSS: Less than 10 mL. CONDITION: Stable to Recovery. CLINICAL NOTE: The patient has had a left upper extremity loop AV graft with difficulty and access center and some evidence of outflow narrowing on recent ultrasound therefore it was recommended she undergo fistulogram. Risks and benefits were discussed including but not limited to, bleeding, infection, injury to the vessel. The patient seemingly understood and was willing to proceed. DESCRIPTION OF PROCEDURE: The patient was taken to the operative suite and placed in supine position. The left upper extremity was prepped and draped in usual sterile fashion. A preprocedure time- out was performed, and all parties were in agreement. Using the ultrasound, in the outflow direction, over the area of greatest thrill, the skin was anesthetized. Permanent image of the ultrasound was obtained. The vessel was paten without any significant thrombus. Access was achieved and Seldinger technique was used to place a Micro-Access sheath. Images performed showing outflow stenosis. But healthy- appearing brisk flow. The area of the distal outflow anastomosis was balloon angioplasty with a 6 x 60 balloon and subsequently left insufflated for picture of the inflow. The arterial anastomosis appeared widely patent no significant stenosis. An 8 x 60 drug-coated balloon was then utilized at the outflow anastomosis. After this, flow was brisk through the graft. At this point, the sheath was removed after a gddeoy-kn-xklyn suture was placed. Dressings were placed and the patient was transferred back to Recovery in stable condition, having tolerated the procedure well.
--- NOTE | 2024-03-25 23:50 | IR ---
EXAMINATION TYPE: IR fistula/abscess/sinus tract Intraoperative/procedural fluoroscopic services were provided. CLINICAL INDICATION:Female, 68 years old with history of Fistulagram, 1.4min fluoro, [id number]; , PH H Total fluoroscopy time is 1.5 min. DAP: 0.748 Gycm2 uGym2 Please see the operative/procedural note for further details. [facility], , 03/25/2024 11:48 PM
== END 2024-01-31 12:07 | disposition home or self-care (01) ==
LOC: CATHCVL 08:17
PROVIDERS: ATTEND Surgery
DX: N18.6 End stage renal disease (principal)
CPT/HCPCS: 36902

== ENCOUNTER → 2024-02-11 | Outpatient (CLI) | payer MEDICARE, OTHER | END | disposition home or self-care (01) | LOC: LABPRL 12:00 | PROVIDERS: ATTEND Internal Medicine Geriatric Medicine | CPT/HCPCS: 87077; 87086; 87186 ==

== ENCOUNTER 2024-03-25 09:01 | Day surgery (SDC) | payer MEDICARE, OTHER ==
[2024-03-25] MEDS: IV FLUID CONTINUATION 1,000 ML IV ONE (09:33)
[2024-03-25 09:54] VITALS: TEMP 97.1
[2024-03-25] MEDS: LACTATED RINGERS 1,000 ML IV SCH (09:56)
[2024-03-25] MEDS: SODIUM CHLORIDE 0.9% 500 ML DEHP FREE BAG IV STA (09:57)
[2024-03-25] MEDS ORDERED: LIDOCAINE 1% INJ 10MG/ML (20 ML MDV) ONE (10:25)
[2024-03-25] MEDS ORDERED: PROPOFOL 10 MG/ML 20 ML VIAL IV ONE (10:25)
--- NOTE | 2024-03-25 10:38 | P.PCN ---
Date of Procedure: 03/25/24 Procedure(s) Performed: BRIEF HISTORY: Patient is a 68-year-old, pleasant, white female scheduled for an upper endoscopy for evaluation of intermittent nausea vomiting for the last 6 months duration. She has history of end-stage renal disease on hemodialysis. She has these episodes once a 1-2 times a week. Has longstanding history of diabetes mellitus. PROCEDURE PERFORMED: Esophagogastroduodenoscopy with biopsy. PREOPERATIVE DIAGNOSIS: Chronic intermittent nausea vomiting of 6 months duration. IV sedation per anesthesia. PROCEDURE: After informed consent was obtained, the patient was brought into the endoscopy unit. IV sedation was administered by Anesthesia under continuous monitoring. Initially the Olympus GIF-140 video endoscope was inserted into the mouth. Esophagus intubated without any difficulty. It was gradually advanced into the stomach and duodenum and carefully examined. The bulb and the second part of the duodenum appeared normal. Biopsies were done from the duodenum to evaluate for celiac disease. The scope at this time was withdrawn to the stomach, adequately insufflated with air, and upon careful examination, mucosa of the antrum, body, and mild diffuse gastritis and biopsies were done for this area. No peptic ulcer disease noted. Mucosa of the cardia and the fundus appeared normal. The scope was then withdrawn into the esophagus. The GE junction was located at 39 cm from the incisors. The esophagus appeared normal. There were no erosions or ulcerations seen, biopsies were done from the distal esophagus and the patient tolerated the procedure well. IMPRESSION: 1. Mild diffuse gastritis. 2. No evidence of esophagitis, peptic ulcer disease or gastroparesis. RECOMMENDATIONS: The findings of this examination were discussed with the patient as well as her family. She was advised to follow-up with the biopsy results. Recommend small frequent meals. Continue with Protonix 40 mg daily and follow antireflux measures..
[2024-03-25 10:48] VITALS: RESP 16
[2024-03-25 11:33] VITALS: BP 101/58; PULSE 64
[2024-03-25] MEDS: SODIUM CHLORIDE 0.9% 500 ML 500 ML IV ONE (11:54)
[2024-03-27 07:17] LABS: Glucose,Whole Blood 122 mg/dL (70-110)
== END 2024-03-25 11:50 ==
LOC: ORWHC2ENDO 09:01
PROVIDERS: ATTEND Internal Medicine Gastroenterology
DX: R11.2 Nausea with vomiting, unspecified
CPT/HCPCS: 43239; 88305

== ENCOUNTER → 2024-06-16 | Outpatient (CLI) | payer MEDICARE, OTHER ==
--- NOTE | 2024-06-16 12:25 | NM ---
EXAMINATION TYPE: NM gastric emptying static DATE OF EXAM: 06/16/2024 COMPARISON: NONE CLINICAL INDICATION: Female, 68 years old with history of R11.2 NAUSEA AND VOMITING; Following administration of 1.9 mCi Tc 99m Sulfur Colloid with 4 oz scrambled eggs, 1/2 piece of toas t with jam, 3 oz of water, projection images of the abdomen were obtained 10 minutes post ingestion. Patient Emptying Values 1 Hour 36 % 2 Hours 48 % 3 Hours 62 % 4 Hours 76 % Gastroesophagel reflux: None T 1/2 is 126 minutes. IMPRESSION: Gastric emptying: Gastric emptying at 1 and 2 hours is within normal limits. However, at 3 and 4 gloria rs there is slight delay in gastric emptying. Gastric emptying normal percentage values: 30 minutes: <70% of retention (> 30% emptying) suggests abnormally fast emptying. 60 minutes: <90% retention (>10% emptying) is normal; less than 30% retention (>70% emptying) suggest s abnormally rapid empying. 90 minutes: <65% retention (> 35% emptying) is normal. 120 minutes: <60% retention (> 40% emptying) is normal. 180 minutes: <30% retention (> 70% emptying) is normal. Gastric emptying T-1/2: Solid: The normal range is 60-105 minutes Liquid only: Normal range is 10-45 minutes. Liquid only-children: At 60 minutes, normal range is 44-58 % . Liquid only-infants: At 60 minutes, normal range is 32-64 %. Additional references: Gastric Emptying Scintigraphy [email or web address]://[email or web address] [facility], , 06/16/2024 12:23 PM
== END | disposition home or self-care (01) ==
LOC: RADNMMAIN 05-27 06:46
PROVIDERS: ATTEND Internal Medicine Gastroenterology
DX: R11.2 Nausea with vomiting, unspecified (principal)
CPT/HCPCS: 78264; A9541

== ENCOUNTER 2024-08-04 07:05 | Observation (INO) | payer MEDICARE, OTHER ==
[2024-08-03 12:35] VITALS: BMI 44.3
[2024-08-04] MEDS: SODIUM CHLORIDE 0.9% 1,000 ML IV SCH (05:43)
[2024-08-04 07:50] LABS: Basophils % (A) 0 %; Eosinophils # (A) 0.4 k/uL (0-0.7); Eosinophils % (A) 5 %; HCT 36.1 % (34.0-46.0); HGB 11.8 gm/dL (11.4-16.0); Lymphocytes # (A) 2.1 k/uL (1.0-4.8); Lymphocytes % (A) 25 %; MCH 33.3 pg (25.0-35.0); MCHC 32.7 g/dL (31.0-37.0); MCV 101.8 fL (80.0-100.0); Macrocytosis Slight; Mean Platelet Volume 8.9; Monocytes # (A) 0.4 k/uL (0-1.0); Monocytes % (A) 5 %; Neutrophils # (A) 5.5 k/uL (1.3-7.7); Neutrophils % (A) 64 %; Platelet Count 144 k/uL (150-450); RBC 3.55 m/uL (3.80-5.40); WBC 8.6 k/uL (3.8-10.6)
[2024-08-04] MEDS: INSULIN ASPART (NovoLOG) 100 UNIT/ML VIAL SQ SCH (07:56)
[2024-08-04 07:58] LABS: Glucose,Whole Blood 217 mg/dL (70-110)
[2024-08-04 08:08] LABS: African American GFR (CKD) 4 (>60 ml/min/1.73 sqM); Anion Gap 13 mmol/L; Calcium 10.7 mg/dL (8.4-10.2); Carbon Dioxide 29 mmol/L (22-30); Chloride 92 mmol/L (98-107); Glucose 229 mg/dL (74-99); Non-African American GFR(CKD) 3 (>60 ml/min/1.73 sqM); Potassium 5.9 mmol/L (3.5-5.1); Sodium 134 mmol/L (137-145)
[2024-08-04] MEDS: IV FLUID CONTINUATION 1,000 ML IV ONE (08:40)
[2024-08-04 08:51] LABS: Blood Urea Nitrogen 118 mg/dL (7-17)
[2024-08-04] MEDS: LIDOCAINE 1% INJ 10MG/ML (20 ML MDV) SQ ONE (09:04)
[2024-08-04] MEDS: fentaNYL (PF) 50 MCG/ML 2 ML AMP IVP ONE (09:04)
[2024-08-04] MEDS: ALTEPLASE 2 MG VIAL (CATHFLO) IV ONE ×2 (09:16→09:30)
[2024-08-04] MEDS: MIDAZOLAM 2 MG/2 ML VIAL IVP ONE (09:42)
[2024-08-04] MEDS: IOPAMIDOL-370 100ML BTL INJ ONE (10:11)
--- NOTE | 2024-08-04 10:35 | IR ---
EXAMINATION TYPE: IR fistula/abscess/sinus tract DATE OF EXAM: 08/04/2024 CLINICAL HISTORY: Failed dialysis. TECHNIQUE: Fluoroscopy. COMPARISON: None. FINDINGS: Fluoroscopic guidance was provided during left upper extremity fistulogram procedure perfo rmed by Dr. Roper. A total of 11.3 minutes of fluoroscopic time was utilized during the procedure an d 0 spot images was acquired. TOTAL DAP = 11.0. IMPRESSION: As Above. [facility], , 08/04/2024 10:32 AM
--- NOTE | 2024-08-04 10:37 | P.OP ---
Date of Procedure: 08/04/24 Description of Procedure: Preoperative diagnosis: Thrombosed left forearm loop graft Postoperative diagnosis: Same Procedure: Ultrasound-guided AV graft access 2 Fistulogram Pharmacal mechanical thrombectomy with 6-Kisw[place]ili AngioJet Percutaneous transluminal balloon angioplasty of the inflow 5 x 40, Percutaneous transdermal balloon angioplasty outflow 7 x 40, 8x60 DCB Moderate conscious sedation 70 minutes, personal monitoring certified RN administration with hemodynamic monitoring Surgeon: Shara Roper D.O. EBL: Less than 10 mL IV fluids: See records Urine output: Not measured Drains: None Complications: None immediately apparent Condition: Stable to recovery Operative indication and findings: Patient is a 69-year-old female with a loop graft from left upper arm who was unable to get dialysis on Saturday due to thrombosis of the graft. She states her last dialysis was Saturday. On occasion they been having some issues with her dialysis. She initially was sent to [facility] where they just said 'well your graft is occluded' and sent her home without appropriate access. She then called my office to see about evaluation and we had her scheduled for an intermediate fistulogram versus possible placement of tunneled catheter. She presents for fistulogram and intervention She seemingly understands the plan is willing to proceed. Procedure in detail: Patient was taken to the special suite and placed in supine position. Left upper extremity is prepped and draped in usual sterile fashion. A preprocedure timeout was performed, all parties were in agreement. Using ultrasound, initially in the outflow direction, the graft was accessed. Permanent images stored. Catheters and wires were utilized passed into the outflow vein and venogram was performed showing no evidence of obvious stenosis area catheter was then drawn back until the level of the outflow anastomosis which did appear to be thrombosed. tPA was instilled via a pullback method. Dwelling time was allowed and during this time, access was obtained towards the inflow direction. Again using ultrasound the graft was cannulated and a 6- Kisw[place]ili sheath was placed. Catheters and wires were placed into the brachial artery and images performed showing patent arterial vasculature That point the arterial inflow was treated with TPA instillation. While this was dwelling, the suction thrombectomy portion was performed of the outflow. Following this outflow imaging was performed. There was evidence of moderate stenosis at the anastomosis and access points in the outflow tract therefore a 7 x 40 balloon was used for angioplasty. This was subsequently followed with an 8 x 60 drug- coated balloon in these areas. There was improvement there was good flow through. Attention was then turned towards the inflow. Suction thrombectomy was performed. An angiogram via the brachial artery was performed showing continuous flow through the entirety of the graft with mild stenosis of the arterial anastomosis. 5 x 40 balloon was utilized to angioplasty this inflow area. Then utilizing a 7 x 40 balloon, the tract and remainder of the graft was angioplastied. Repeat images performed, there was significant improvement of flow through the graft with resolution of the mild stenosis. There appeared to be adequate pulse to the graft with flow throughout. Final imaging was performed showing continued improvement of the outflow anastomosis. At that point catheters and wires were removed. The sheath was removed and prgsux-jo-ucvlk sutures were placed at each site. Dressings were placed the patient was allowed awaken from her sedation and transferred to recovery in stable condition having tolerated her procedure well.
[2024-08-04] MEDS ORDERED: NALOXONE 0.4 MG/ML 1 ML VIAL IVP PRN (10:38)
--- NOTE | 2024-08-04 10:38 | P.HPIHPCON ---
History of Present Illness H&P Date: 08/04/24 Patient is a 69-year-old female with a thrombosed AV graft. She is here today for evaluation and treatment of this. Discussion in the preoperative area was to have her admitted for dialysis at this point due to her inability to get to dialysis. Consent for Procedure: I have explained the operation/procedure to the patient, including the risks, benefits, side effects, alternative therapies (including not receiving the proposed treatment or service), the likelihood of the patient achieving his/her goals, and potential recuperation problems for the procedure/sedation/analgesia, as well as any blood products, if indicated. I also explained to the patient the risks, benefits and side effects of the alternatives, as well as the risks related to not receiving the proposed procedure, care, treatment, or services. 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 November Admission 2022 for [facility]-malfunctioning dialysis catheter. Last Myocardial Infarction Date:: 2009 History of Any Multi-Drug Resistant Organisms: VRE Date of last positivie culture/infection: 01/17/22 MDRO Source:: Urine Past Surgical History: Adenoidectomy, Back Surgery, Cholecystectomy, Heart Catheterization With Stent, Tonsillectomy Additional Past Surgical History / Comment(s): PCI with stent 2009 & 2018, low back surgery, total R shoulder and total R knee arthroplasties, bilateral hand trigger finger surgeries, EGD, colonoscopy, bilat. laser eye surgery for bleed and cataract removal, thyroidectomy(2 surgeries total to remove all of thyroid).lt tib fib fx-plate and screws. Lt arm Dialysis fistula Past Anesthesia/Blood Transfusion Reactions: No Reported Reaction, Motion Sickness Additional Past Anesthesia/Blood Transfusion Reaction / Comment(s): no problems with prior blood transfusions Date of Last Stent Placement:: Smoking Status: Never smoker - Past Family History Mother Family Medical History: Asthma, CVA/TIA, Seizure Disorder Additional Family Medical History / Comment(s): epilepsy, pt states "mom had 21 strokes) Father Family Medical History: COPD, Diabetes Mellitus Additional Family Medical History / Comment(s): many heart problems Medications and Allergies Home Medications Medication Instructions Recorded Confirmed Type Levothyroxine Sodium [Synthroid] 175 mcg PO DAILY@0800 11/21/17 08/03/24 History Montelukast [Singulair] 10 mg PO HS@2100 11/21/17 08/03/24 History Atorvastatin [Lipitor] 40 mg PO HS 09/08/20 08/03/24 History Cholecalciferol [Vitamin D3 (25 50 mcg PO DAILY@169912/09/20 08/03/24 History Mcg = 1000 Iu)] Acetaminophen Tab [Tylenol] 650 mg PO Q4H PRN 11/04/21 08/03/24 History Aspirin EC [Ecotrin Low Dose] 81 mg PO DAILY@17011/04/21 08/04/24 History Clopidogrel [Plavix] 75 mg PO DAILY@0811/04/21 08/04/24 History Isosorbide Mononitrate ER [Imdur] 30 mg PO BID@0800,1700 02/08/22 08/03/24 History Ondansetron [Zofran] 4 mg PO BID PRN 02/08/22 08/03/24 History carvediloL [Coreg] 12.5 mg PO SUMOWEFR@0800 08/06/22 08/03/24 History Loperamide [Imodium] 2 mg PO QID PRN 09/28/22 08/03/24 History allopurinoL [Zyloprim] 100 mg PO DAILY@0800 04/07/23 02/10/25 History Calcium Acetate [PhosLo] 667 mg PO HS 10/30/22 08/03/24 History Renal Multivitamin Formula Tab 1 tab PO DAILY@1700 10/30/22 08/03/24 History bisacodyL [Dulcolax] 10 mg RECTAL DAILY PRN 10/30/22 08/03/24 History carvediloL [Coreg] 12.5 mg PO DAILY@1700 10/30/22 08/03/24 History Insulin Aspart [NovoLOG] See Protocol SQ ACHS 12/31/22 08/03/24 History Sennosides-Docusate Sodium 1 tab PO BID@0800,1700 12/31/22 08/03/24 History [Senokot-S] Gabapentin [Neurontin] 100 mg PO DAILY@0800 #2 cap 04/26/23 08/03/24 Rx Diclofenac Sodium Gel [Voltaren 1% 1 applic TOPICAL QID 09/03/23 08/03/24 History Gel] Ipratropium-Albuterol Nebulize 3 ml INHALATION RT-Q6H 09/03/23 08/03/24 History [Duoneb 0.5 mg-3 mg/3 ml Soln] Lidocaine 5% Patch [Lidoderm 5% 1 patch TRANSDERM DAILY@0700 09/03/23 08/03/24 History Patch] Melatonin 6 mg PO HS@2100 09/03/23 08/03/24 History Midodrine [ProAmatine] 5 mg PO TUTHSA@0500 09/03/23 08/03/24 History Venlafaxine HCl [Effexor] 37.5 mg PO DAILY@0800 09/03/23 08/03/24 History Apixaban [Eliquis] 2.5 mg PO BID #60 tab 09/05/23 08/04/24 Rx Gabapentin [Neurontin] 200 mg PO HS@1999 #60 cap 09/05/23 08/03/24 Rx HYDROcodone/APAP 5-325MG [[place] 1 tab PO Q6H PRN #20 tab 09/05/23 08/03/24 Rx 5-325] Ipratropium-Albuterol Nebulize 3 ml INHALATION RT-TID PRN each 09/05/23 08/03/24 Rx [Duoneb 0.5 mg-3 mg/3 ml Soln] Ferric Citrate [Auryxia] 1 tab PO TID 03/24/24 08/03/24 History Lidocaine 4% Cream [Lmx 4] 1 dose TOPICAL QID 03/24/24 08/03/24 History Pantoprazole [Protonix] 1 tab PO DAILY@0700 03/24/24 08/03/24 History Polyvinyl Alcohol/Povidone [Clear 1 drop BOTH EYES QID 03/24/24 08/03/24 History Eyes Natural Tears Drop] guaiFENesin [guaiFENesin Oral 10 ml PO Q4H PRN 03/24/24 08/03/24 History Solution] 1500 Fluid Restriction 1 dose PO DAILY 08/03/24 08/03/24 History Benzocaine/Menthol [Chloraseptic 1 lozenge MUCOUS MEM DIRECTED 08/03/24 08/03/24 History Sore Throat Lozng] PRN Calcium Acetate [Phoslo] 3 cap PO TID-W/MEALS 08/03/24 08/03/24 History Famotidine [Pepcid] 20 mg PO DAILY@1700 08/03/24 08/03/24 History Insulin Degludec [Tresiba] 15 units SQ HS@2130 08/03/24 08/03/24 History Sodium Zirconium Cyclosilicate 10 gm PO DAILY 08/03/24 08/03/24 History [Lokelma] traMADol HCL 50 mg PO Q8H PRN 08/03/24 08/03/24 History Allergies Allergy/AdvReac Type Severity Reaction Status Date / Time No Known Allergies Allergy Verified 08/03/24 12:03 Surgical - Exam Vital Signs Temp Pulse Resp BP Pulse Ox 99.0 F 74 16 130/57 96 08/04/24 07:32 08/04/24 07:32 08/04/24 07:32 08/04/24 07:32 08/04/24 07:32 General Is a pleasant cooperative female in no acute distress. Heart appears regular. Lungs are clear. Poor dentition. Left upper extremity loop graft is occluded. Results - Labs 08/04/24 07:39 08/04/24 07:39 Abnormal Lab Results - Last 24 Hours (Table) 08/04/24 08/04/24 08/04/24 Range/Units 07:39 07:39 07:42 RBC 3.55 L (3.80-5.40) m/uL MCV 101.8 H (80.0-100.0) fL Plt Count 144 L (150-450) k/uL Sodium 134 L (137-145) mmol/L Potassium 5.9 H (3.5-5.1) mmol/L Chloride 92 L (98-107) mmol/L BUN 118 H* (7-17) mg/dL Creatinine 11.42 H* (0.52-1.04) mg/dL Glucose 229 H (74-99) mg/dL POC Glucose (mg/dL) 217 H (70-110) mg/dL Calcium 10.7 H (8.4-10.2) mg/dL Diabetes panel 08/04/24 Range/Units 07:39 Sodium 134 L (137-145) mmol/L Potassium 5.9 H (3.5-5.1) mmol/L Chloride 92 L (98-107) mmol/L Carbon Dioxide 29 (22-30) mmol/L BUN 118 H* (7-17) mg/dL Creatinine 11.42 H* (0.52-1.04) mg/dL Glucose 229 H (74-99) mg/dL Calcium 10.7 H (8.4-10.2) mg/dL Calcium panel 08/04/24 Range/Units 07:39 Calcium 10.7 H (8.4-10.2) mg/dL Pituitary panel 08/04/24 Range/Units 07:39 Sodium 134 L (137-145) mmol/L Potassium 5.9 H (3.5-5.1) mmol/L Chloride 92 L (98-107) mmol/L Carbon Dioxide 29 (22-30) mmol/L BUN 118 H* (7-17) mg/dL Creatinine 11.42 H* (0.52-1.04) mg/dL Glucose 229 H (74-99) mg/dL Calcium 10.7 H (8.4-10.2) mg/dL Adrenal panel 08/04/24 Range/Units 07:39 Sodium 134 L (137-145) mmol/L Potassium 5.9 H (3.5-5.1) mmol/L Chloride 92 L (98-107) mmol/L Carbon Dioxide 29 (22-30) mmol/L BUN 118 H* (7-17) mg/dL Creatinine 11.42 H* (0.52-1.04) mg/dL Glucose 229 H (74-99) mg/dL Calcium 10.7 H (8.4-10.2) mg/dL Assessment and Plan Assessment: Thrombosed left upper extremity loop forearm graft End-stage renal disease Plan: Plan for fistulogram and then admission for dialysis.
[2024-08-04] MEDS ORDERED: HYDROcodone/APAP 5-325MG 1 EACH TAB PO PRN (12:55)
[2024-08-04] MEDS ORDERED: IPRATROPIUM-ALBUTEROL 3 ML NEB INHALATION PRN (12:55)
[2024-08-04] MEDS ORDERED: traMADol 50 MG TAB PO PRN (12:55)
[2024-08-04] MEDS ORDERED: ONDANSETRON 4 MG TAB PO PRN (12:55)
[2024-08-04] MEDS ORDERED: LOPERAMIDE 2 MG CAP PO PRN (12:55)
[2024-08-04] MEDS ORDERED: guaiFENesin SYRUP 100MG/5ML 200 MG/10 ML CUP PO PRN (12:55)
[2024-08-04] MEDS ORDERED: DEXTROSE 50% SYRINGE 50 ML IVP PRN ×2 (12:56)
[2024-08-04 14:26] LABS: Glucose,Whole Blood 126 mg/dL (70-110)
[2024-08-04] MEDS: HEPARIN SODIUM,PORCINE 5,000 UNIT/ML 1 ML VIAL SQ SCH (14:40)
[2024-08-04] MEDS: IPRATROPIUM-ALBUTEROL 3 ML NEB INHALATION SCH (17:18)
[2024-08-04 18:05] LABS: Glucose,Whole Blood 176 mg/dL (70-110)
[2024-08-04] MEDS: SENNOSIDES-DOCUSATE SODIUM 1 EACH TAB PO SCH (18:37)
[2024-08-04] MEDS: CHOLECALCIFEROL 25 MCG (1000 IU) TABLET PO SCH (18:37)
[2024-08-04] MEDS: FAMOTIDINE 20 MG TAB PO SCH (18:37)
[2024-08-04] MEDS: ARTIFICIAL TEARS-HYPROMELLOSE DROPS 15 ML BTL BOTH EYES SCH (18:38)
[2024-08-04] MEDS: SEVELAMER 800 MG TAB PO SCH (18:39)
[2024-08-04 20:16] LABS: Glucose,Whole Blood 181 mg/dL (70-110)
[2024-08-04] MEDS: ALTEPLASE 2 MG VIAL (CATHFLO) IV STA (20:53)
[2024-08-04] MEDS: ISOSORBIDE MONONITRATE ER 30 MG TAB.ER.24H PO SCH (20:54)
[2024-08-04] MEDS: GABAPENTIN 100 MG CAP PO SCH (20:59)
[2024-08-04] MEDS: MELATONIN 3 MG TABLET PO SCH (21:00)
[2024-08-04] MEDS: MONTELUKAST 10 MG TAB PO SCH (21:00)
[2024-08-04] MEDS: INSULIN DETEMIR (LEVEMIR) 100 UNIT/ML SYR SQ SCH (21:00)
--- NOTE | 2024-08-05 00:58 | CONS ---
CONSULTATION REASON FOR CONSULTATION: Advice regarding diabetes mellitus, medications requested by Vascular Surgery. HISTORY OF PRESENT ILLNESS: This 69-year-old woman with a past medical history of end-stage renal disease, on hemodialysis; diabetes mellitus type 2; hypertension; hyperkalemia; and history of pulmonary embolism, underwent fistulogram and pharmacomechanical thrombectomy of the AV graft on the left side for the thrombosed left AV graft. There is no history of fever, rigors, chills. No history of any headache, loss of consciousness, seizures. Postoperatively, the patient is slightly drowsy. Accu-Cheks are 217. PAST MEDICAL HISTORY: History of asthma, CHF, COPD, CVA, diabetes type 2, pulmonary embolism. Rest of the history and rest of the chart is also reviewed. HOME MEDICATIONS: Reviewed include Protonix. Dose and rest of medications reviewed. ALLERGIES: None. FAMILY HISTORY: History of asthma, CVA, and TIA. SOCIAL HISTORY: No history of smoking or alcohol. REVIEW OF SYSTEMS: Fourteen-point review is negative except as mentioned earlier. PHYSICAL EXAMINATION: VITAL SIGNS: Pulse 72, blood pressure 119/58, and respirations 16. HEENT: Conjunctivae normal. NECK: No JVD. CARDIOVASCULAR: S1, S2. RESPIRATIONS: Breath sounds diminished at the bases. ABDOMEN: Soft and nontender. LEGS: No edema. NERVOUS SYSTEM: Nonfocal. EXTREMITIES: Examination of the left arm, status post surgery. LABORATORY DATA: CBC noted. Potassium 5.2, sodium 134, and creatinine is 11.42. ASSESSMENT: 1. Status post pharmacomechanical thrombectomy of the thrombosed left forearm AV graft. 2. End-stage renal disease, hemodialysis. 3. Mild hyperkalemia. 4. Asthma. 5. History of congestive heart failure. 6. Chronic obstructive pulmonary disease. 7. Cerebrovascular accident and transient ischemic attack. 8. Diabetes mellitus, type 2. 9. Hypertension. 10.History of pulmonary embolism. 11.History of rheumatoid arthritis. 12.Multiple complex medical issues. RECOMMENDATION: This 69-year-old woman, who presented after surgery. At this time, I recommend to continue current medications. I would recommend Nephrology consultation and hemodialysis because the patient missed last hemodialysis. I would recommend resume the home medications. DVT prophylaxis. I would also recommend monitor blood sugars closely. The prognosis guarded because of the multiple complex medical issues. Further recommendations to follow. See orders for further details. MMODL / IJN: [id number] /
[2024-08-05 06:21] LABS: Glucose,Whole Blood 155 mg/dL (70-110)
[2024-08-05] MEDS: LIDOCAINE 4% PATCH TOPICAL SCH (06:26)
[2024-08-05] MEDS: PANTOPRAZOLE 40 MG TABLET PO SCH (06:26)
--- NOTE | 2024-08-05 07:31 | P.DS ---
Providers Date of admission: 08/04/2024 Expected date of discharge: 08/05/24 Attending physician: Shara Story, DO Consults: 08/04/24 10:38 Consult Physician Routine Consulting Provider: Shazia Shah Consult Reason/Comments: med mgmnt Do you want consulting provider notified?: Yes 08/04/24 10:40 Consult Physician Routine Consulting Provider: Merary Spencer Consult Reason/Comments: dialysis Do you want consulting provider notified?: Yes Primary care physician: [facility] Hospital Course: This is a 69-year-old female with a history of end-stage renal disease on h emodialysis with a loop graft in the left upper extremity who was unable to get dialysis Saturday due to thrombosis of the graft. Her last dialysis prior to this admission was last Saturday. Patient states she is usually scheduled for dialysis on Saturday and Saturdays. She was scheduled for outpatient left upper extremity fistulogram with possible intervention. Yesterday she underwent fistulogram with pharmacomechanical thrombectomy and percutaneous transluminal balloon angioplasty of the inflow and outflow. Patient was admitted to the hospital to undergo hemodialysis. Yesterday she underwent hemodialysis without incidence. Waiting nephrology to see patient and will plan for possible hemodialysis today if needed and then discharge. Exam General appearance: The patient is alert, oriented, appears in no acute distress. HET: Head is normocephalic and atraumatic. Pupils are equal and reactive. Neck: Supple. Heart: Regular. Lungs: Equal expansion, normal respiratory effort. Abdomen: Soft, nontender, nondistended. Extremities: Normal skin color and turgor. Left upper extremity palpable thrill and audible bruit over graft. Neurological: No focal deficits. Strength and sensation are grossly intact. Assessment 1. Thrombosed left forearm loop graft status post fistulogram with pharmacomechanical thrombectomy and balloon angioplasty of inflow and outflow 2. End-stage renal disease on hemodialysis Plan 1. Await recommendations for hemodialysis from nephrology 2. Plan for discharge today 3. Consult was to medical team for medical management The impression and plan of care has been dictated as directed. Dr.Cuello Story I performed a history and examination of this patient, discussed the same with the dictator. I agree with the dictator's note ,documented as a scribe. Any additional findings or plans will be noted. Procedures: Procedure: Ultrasound-guided AV graft access 2 Fistulogram Pharmacal mechanical thrombectomy with 6-Polish AngioJet Percutaneous transluminal balloon angioplasty of the inflow 5 x 40, Percutaneous transdermal balloon angioplasty outflow 7 x 40, 8x60 DCB Moderate conscious sedation 70 minutes, personal monitoring certified RN administration with hemodynamic monitoring Patient Condition at Discharge: Stable Plan - Discharge Summary Discharge Rx Participant: No New Discharge Prescriptions: Continue Montelukast [Singulair] 10 mg PO HS@2100 Levothyroxine Sodium [Synthroid] 175 mcg PO DAILY@0800 Atorvastatin [Lipitor] 40 mg PO HS Cholecalciferol [Vitamin D3 (25 Mcg = 1000 Iu)] 50 mcg PO DAILY@1700 Acetaminophen Tab [Tylenol] 650 mg PO Q4H PRN PRN Reason: Fever And/ Or Pain Aspirin EC [Ecotrin Low Dose] 81 mg PO DAILY@1700 Clopidogrel [Plavix] 75 mg PO DAILY@0800 Ondansetron [Zofran] 4 mg PO BID PRN PRN Reason: Nausea-takes w/dialysis Isosorbide Mononitrate ER [Imdur] 30 mg PO BID@0800,1700 allopurinoL [Zyloprim] 100 mg PO DAILY@0800 Loperamide [Imodium] 2 mg PO QID PRN PRN Reason: Diarrhea Insulin Aspart [NovoLOG] See Protocol SQ ACHS Sennosides-Docusate Sodium [Senokot-S] 1 tab PO BID@0800,1700 Gabapentin [Neurontin] 100 mg PO DAILY@0800 #2 cap Ipratropium-Albuterol Nebulize [Duoneb 0.5 mg-3 mg/3 ml Soln] 3 ml INHALATION RT-Q6H Melatonin 6 mg PO HS@2100 Venlafaxine HCl [Effexor] 37.5 mg PO DAILY@0800 HYDROcodone/APAP 5-325MG [[place] 5-325] 1 tab PO Q6H PRN #20 tab PRN Reason: Pain Apixaban [Eliquis] 2.5 mg PO BID #60 tab Polyvinyl Alcohol/Povidone [Clear Eyes Natural Tears Drop] 1 drop BOTH EYES QID Lidocaine 4% Cream [Lmx 4] 1 applic TOPICAL QID Ferric Citrate [Auryxia] 210 mg PO TID Benzocaine/Menthol [Chloraseptic Sore Throat Lozng] 1 lozenge MUCOUS MEM DAILY PRN PRN Reason: Sore Throat Famotidine [Pepcid] 20 mg PO DAILY@1700 traMADol HCL 50 mg PO Q8H PRN PRN Reason: Pain Hydrocortisone Cream [Hydrocortisone 1% Cream] 1 applic TOPICAL BID carvediloL [Coreg] 12.5 mg PO SUMOWEFR@0800 bisacodyL [Dulcolax] 10 mg RECTAL DAILY PRN PRN Reason: Constipation Renal Multivitamin Formula Tab 1 tab PO DAILY@1700 Calcium Acetate [PhosLo] 667 mg PO HS Diclofenac Sodium Gel [Voltaren 1% Gel] 1 applic TOPICAL QID Ipratropium-Albuterol Nebulize [Duoneb 0.5 mg-3 mg/3 ml Soln] 3 ml INHALATION RT-TID PRN each PRN Reason: Shortness Of Breath Or Wheezing Gabapentin [Neurontin] 200 mg PO HS@1999 #60 cap Pantoprazole [Protonix] 1 tab PO DAILY@0700 guaiFENesin [guaiFENesin Oral Solution] 200 mg PO Q4H PRN PRN Reason: Cough Calcium Acetate [PhosLo] 2,001 mg PO TID-W/MEALS Insulin Degludec [Tresiba] 15 units SQ HS@2129 Sodium Zirconium Cyclosilicate [Lokelma] 10 gm PO SUMOWEFR No Action carvediloL [Coreg] 12.5 mg PO DAILY@1700 Discharge Medication List Levothyroxine Sodium [Synthroid] 175 mcg PO DAILY@0800 11/21/17 [History] Montelukast [Singulair] 10 mg PO HS@2100 11/21/17 [History] Atorvastatin [Lipitor] 40 mg PO HS 09/08/20 [History] Cholecalciferol [Vitamin D3 (25 Mcg = 1000 Iu)] 50 mcg PO DAILY@17012/09/20 [History] Acetaminophen Tab [Tylenol] 650 mg PO Q4H PRN 11/04/21 [History] Aspirin EC [Ecotrin Low Dose] 81 mg PO DAILY@17011/04/21 [History] Clopidogrel [Plavix] 75 mg PO DAILY@0800 11/04/21 [History] Isosorbide Mononitrate ER [Imdur] 30 mg PO BID@0800,1700 02/08/22 [History] Ondansetron [Zofran] 4 mg PO BID PRN 02/08/22 [History] carvediloL [Coreg] 12.5 mg PO SUMOWEFR@0800 08/06/22 [History] Loperamide [Imodium] 2 mg PO QID PRN 09/28/22 [History] allopurinoL [Zyloprim] 100 mg PO DAILY@0800 09/28/22 [History] Calcium Acetate [PhosLo] 667 mg PO HS 10/30/22 [History] Renal Multivitamin Formula Tab 1 tab PO DAILY@169910/30/22 [History] bisacodyL [Dulcolax] 10 mg RECTAL DAILY PRN 10/30/22 [History] carvediloL [Coreg] 12.5 mg PO DAILY@169910/30/22 [History] Insulin Aspart [NovoLOG] See Protocol SQ ACHS 12/31/22 [History] Sennosides-Docusate Sodium [Senokot-S] 1 tab PO BID@0800,1700 12/31/22 [History] Gabapentin [Neurontin] 100 mg PO DAILY@0800 #2 cap 04/26/23 [Rx] Diclofenac Sodium Gel [Voltaren 1% Gel] 1 applic TOPICAL QID 09/03/23 [History] Ipratropium-Albuterol Nebulize [Duoneb 0.5 mg-3 mg/3 ml Soln] 3 ml INHALATION RT-Q6H 09/03/23 [History] Melatonin 6 mg PO HS@2100 09/03/23 [History] Venlafaxine HCl [Effexor] 37.5 mg PO DAILY@0800 09/03/23 [History] Apixaban [Eliquis] 2.5 mg PO BID #60 tab 09/05/23 [Rx] Gabapentin [Neurontin] 200 mg PO HS@1999 #60 cap 09/05/23 [Rx] HYDROcodone/APAP 5-325MG [[place] 5-325] 1 tab PO Q6H PRN #20 tab 09/05/23 [Rx] Ipratropium-Albuterol Nebulize [Duoneb 0.5 mg-3 mg/3 ml Soln] 3 ml INHALATION RT-TID PRN each 09/05/23 [Rx] Ferric Citrate [Auryxia] 210 mg PO TID 03/24/24 [History] Lidocaine 4% Cream [Lmx 4] 1 applic TOPICAL QID 03/24/24 [History] Pantoprazole [Protonix] 1 tab PO DAILY@0700 03/24/24 [History] Polyvinyl Alcohol/Povidone [Clear Eyes Natural Tears Drop] 1 drop BOTH EYES QID 03/24/24 [History] guaiFENesin [guaiFENesin Oral Solution] 200 mg PO Q4H PRN 03/24/24 [History] Benzocaine/Menthol [Chloraseptic Sore Throat Lozng] 1 lozenge MUCOUS MEM DAILY PRN 08/03/24 [History] Calcium Acetate [PhosLo] 2,001 mg PO TID-W/MEALS 08/03/24 [History] Famotidine [Pepcid] 20 mg PO DAILY@1700 08/03/24 [History] Insulin Degludec [Tresiba] 15 units SQ HS@2130 08/03/24 [History] Sodium Zirconium Cyclosilicate [Lokelma] 10 gm PO SUMOWEFR 08/03/24 [History] traMADol HCL 50 mg PO Q8H PRN 08/03/24 [History] Hydrocortisone Cream [Hydrocortisone 1% Cream] 1 applic TOPICAL BID 08/04/24 [History] Follow up Appointment(s)/Referral(s): Shara Santos DO [STAFF PHYSICIAN] - 1 Week Patient Instructions/Handouts: Fistulogram (DC) Activity/Diet/Wound Care/Special Instructions: May shower, no soaking in bathtubs until cleared by surgeon Watch access site for signs of infection Discharge Disposition: HOME SELF-CARE
[2024-08-05 07:37] LABS: Basophils % (A) 0 %; Eosinophils # (A) 0.3 k/uL (0-0.7); Eosinophils % (A) 4 %; HCT 39.2 % (34.0-46.0); HGB 12.5 gm/dL (11.4-16.0); Hypochromasia Slight; Lymphocytes # (A) 2.2 k/uL (1.0-4.8); Lymphocytes % (A) 26 %; MCH 33.1 pg (25.0-35.0); MCHC 31.8 g/dL (31.0-37.0); Macrocytosis Slight; Mean Platelet Volume 8.9; Monocytes # (A) 0.5 k/uL (0-1.0); Monocytes % (A) 5 %; Neutrophils # (A) 5.4 k/uL (1.3-7.7); Neutrophils % (A) 64 %; Platelet Count 128 k/uL (150-450); RBC 3.77 m/uL (3.80-5.40); RDW 13.5 % (11.5-15.5); WBC 8.4 k/uL (3.8-10.6)
[2024-08-05 07:44] LABS: ALT 16 U/L (4-34); African American GFR (CKD) 5 (>60 ml/min/1.73 sqM); Albumin 3.7 g/dL (3.5-5.0); Anion Gap 14 mmol/L; Blood Urea Nitrogen 83 mg/dL (7-17); Calcium 9.4 mg/dL (8.4-10.2); Carbon Dioxide 27 mmol/L (22-30); Chloride 91 mmol/L (98-107); Glucose 135 mg/dL (74-99); Non-African American GFR(CKD) 4 (>60 ml/min/1.73 sqM); Sodium 132 mmol/L (137-145); Total Bilirubin 0.8 mg/dL (0.2-1.3); Total Protein 6.6 g/dL (6.3-8.2)
[2024-08-05 07:58] LABS: AST 37 U/L (14-36); Potassium 5.4 mmol/L (3.5-5.1)
[2024-08-05 07:59] LABS: Alkaline Phosphatase 92 U/L (38-126)
--- NOTE | 2024-08-05 09:39 | P.NPCON ---
History of Present Illness - Reason for Consult end stage renal disease - History of Present Illness Reason for consultation: End-stage renal disease History of present illness: Patient is a 69-year-old female seen in renal consultation for end-stage renal disease. She is maintained on hemodialysis on Saturday schedule. Last dialysis prior to this admission was on Saturday. Patient came to the hospital due to thrombosed left upper extremity AV graft and underwent balloon angioplasty yesterday. She did have hemodialysis last night but with lower blood flows. Dialysis will be attempted again today. Patient otherwise has no active complaints. No chest pain or shortness of breath. No vomiting or diarrhea. No fever or chills. She makes little urine. She does have history of diabetes mellitus coronary artery disease. Vital signs are stable. General: No acute distress. HEENT: Head exam is unremarkable. LUNGS: No audible rhonchi or wheezes. HEART: Rate and Rhythm are regular. ABDOMEN: Nontender. EXTREMITITES: No edema. Past Medical History Past Medical History: Asthma, Coronary Artery Disease (CAD), Cancer, Heart Failure, COPD, CVA/TIA, Diabetes Mellitus, GI Bleed, Hyperlipidemia, Hypertension, Myocardial Infarction (CO), Osteoarthritis (OA), Pulmonary Embolus (PE), Renal Disease, Rheumatoid Arthritis (RA), Sleep Apnea/CPAP/BIPAP, Syncope, Thyroid Disorder Additional Past Medical History / Comment(s): left forearm fistula-crrently swollen and painful,mild CVA 2021-left sided weaker,speech-slight difficulty with word recall,has some STM loss, Covid infection Mar 2022,uses bipap, peripheral neuropathy bilateral hands/feet, CKD , UTIs, legally blind bilaterally-sees minimally, thyroid cancer with surgery-no radiation or chemo, goiter, hashimotos, diverticular disease, 2013 upper and lower GI bleeds with blood loss anemia, gout, R humeral fracture with surgery., hx falls-able to stand and pivot for transfers from w/c, hx left ankle fxs., Hemodialysis // at [facility] in [place]., pt has RT chest port- removed long time ago. [facility] Admission 2022 for [facility]-malfunctioning dialysis catheter. Last Myocardial Infarction Date:: 2009 History of Any Multi-Drug Resistant Organisms: VRE Date of last positivie culture/infection: 01/17/22 MDRO Source:: Urine Past Surgical History: Adenoidectomy, Back Surgery, Cholecystectomy, Heart Catheterization With Stent, Tonsillectomy Additional Past Surgical History / Comment(s): PCI with stent 2009 & 2018, low back surgery, total R shoulder and total R knee arthroplasties, bilateral hand trigger finger surgeries, EGD, colonoscopy, bilat. laser eye surgery for bleed and cataract removal, thyroidectomy(2 surgeries total to remove all of thyroid).lt tib fib fx-plate and screws. Lt arm Dialysis fistula Past Anesthesia/Blood Transfusion Reactions: No Reported Reaction, Motion Sickness Additional Past Anesthesia/Blood Transfusion Reaction / Comment(s): no problems with prior blood transfusions Date of Last Stent Placement:: 2009,2018 Past Psychological History: Anxiety, Depression Additional Psychological History / Comment(s): . Smoking Status: Never smoker Past Alcohol Use History: None Reported Past Drug Use History: None Reported - Past Family History Mother Family Medical History: Asthma, CVA/TIA, Seizure Disorder Additional Family Medical History / Comment(s): epilepsy, pt states "mom had 21 strokes) Father Family Medical History: COPD, Diabetes Mellitus Additional Family Medical History / Comment(s): many heart problems Medications and Allergies Home Medications Medication Instructions Recorded Confirmed Type Levothyroxine Sodium [Synthroid] 175 mcg PO DAILY@0800 11/21/17 08/04/24 History Montelukast [Singulair] 10 mg PO HS@2100 11/21/17 08/04/24 History Atorvastatin [Lipitor] 40 mg PO HS 09/08/20 08/04/24 History Cholecalciferol [Vitamin D3 (25 50 mcg PO DAILY@1700 12/09/20 08/04/24 History Mcg = 1000 Iu)] Acetaminophen Tab [Tylenol] 650 mg PO Q4H PRN 11/04/21 08/04/24 History Aspirin EC [Ecotrin Low Dose] 81 mg PO DAILY@1700 11/04/21 08/04/24 History Clopidogrel [Plavix] 75 mg PO DAILY@0800 11/04/21 08/04/24 History Isosorbide Mononitrate ER [Imdur] 30 mg PO BID@0800,1700 02/08/22 08/04/24 History Ondansetron [Zofran] 4 mg PO BID PRN 02/08/22 08/04/24 History carvediloL [Coreg] 12.5 mg PO SUMOWEFR@0800 08/06/22 08/03/24 History Loperamide [Imodium] 2 mg PO QID PRN 09/28/22 08/04/24 History allopurinoL [Zyloprim] 100 mg PO DAILY@0800 09/28/22 08/04/24 History Calcium Acetate [PhosLo] 667 mg PO HS 10/30/22 08/04/24 History Renal Multivitamin Formula Tab 1 tab PO DAILY@1700 10/30/22 08/04/24 History bisacodyL [Dulcolax] 10 mg RECTAL DAILY PRN 10/30/22 08/04/24 History carvediloL [Coreg] 12.5 mg PO DAILY@1700 10/30/22 08/03/24 History Insulin Aspart [NovoLOG] See Protocol SQ ACHS 12/31/22 08/04/24 History Sennosides-Docusate Sodium 1 tab PO BID@0800,1700 12/31/22 08/04/24 History [Senokot-S] Gabapentin [Neurontin] 100 mg PO DAILY@0800 #2 cap 04/26/23 08/04/24 Rx Diclofenac Sodium Gel [Voltaren 1% 1 applic TOPICAL QID 09/03/23 08/04/24 History Gel] Ipratropium-Albuterol Nebulize 3 ml INHALATION RT-Q6H 09/03/23 08/04/24 History [Duoneb 0.5 mg-3 mg/3 ml Soln] Melatonin 6 mg PO HS@2100 09/03/23 08/04/24 History Venlafaxine HCl [Effexor] 37.5 mg PO DAILY@0800 09/03/23 08/04/24 History Apixaban [Eliquis] 2.5 mg PO BID #60 tab 09/05/23 08/04/24 Rx Gabapentin [Neurontin] 200 mg PO HS@2000 #60 cap 09/05/23 08/04/24 Rx HYDROcodone/APAP 5-325MG [[place] 1 tab PO Q6H PRN #20 tab 09/05/23 08/04/24 Rx 5-325] Ipratropium-Albuterol Nebulize 3 ml INHALATION RT-TID PRN each 09/05/23 08/04/24 Rx [Duoneb 0.5 mg-3 mg/3 ml Soln] Ferric Citrate [Auryxia] 210 mg PO TID 03/24/24 08/04/24 History Lidocaine 4% Cream [Lmx 4] 1 applic TOPICAL QID 03/24/24 08/04/24 History Pantoprazole [Protonix] 1 tab PO DAILY@0700 03/24/24 08/04/24 History Polyvinyl Alcohol/Povidone [Clear 1 drop BOTH EYES QID 03/24/24 08/04/24 History Eyes Natural Tears Drop] guaiFENesin [guaiFENesin Oral 200 mg PO Q4H PRN 03/24/24 08/04/24 History Solution] Benzocaine/Menthol [Chloraseptic 1 lozenge MUCOUS MEM DAILY PRN 08/03/24 08/04/24 History Sore Throat Lozng] Calcium Acetate [PhosLo] 2,001 mg PO TID-W/MEALS 08/03/24 08/04/24 History Famotidine [Pepcid] 20 mg PO DAILY@1700 08/03/24 08/04/24 History Insulin Degludec [Tresiba] 15 units SQ HS@2130 08/03/24 08/04/24 History Sodium Zirconium Cyclosilicate 10 gm PO SUMOWEFR 08/03/24 08/04/24 History [Lokelma] traMADol HCL 50 mg PO Q8H PRN 08/03/24 08/04/24 History Hydrocortisone Cream 1 applic TOPICAL BID 08/04/24 08/04/24 History [Hydrocortisone 1% Cream] Allergies Allergy/AdvReac Type Severity Reaction Status Date / Time No Known Allergies Allergy Verified 08/04/24 20:01 Physical Exam Vitals: Vital Signs Temp Pulse Pulse Resp BP Pulse Ox 08/05/24 07:52 70 08/05/24 07:41 72 08/05/24 04:00 68 16 137/63 08/05/24 02:00 77 16 08/05/24 01:50 69 08/05/24 01:38 60 08/05/24 00:09 97.6 F 76 16 126/51 08/04/24 20:52 70 18 08/04/24 20:42 68 18 08/04/24 20:00 97.7 F 77 16 166/58 08/04/24 16:00 63 16 152/72 97 08/04/24 14:20 68 16 96 08/04/24 12:11 72 16 147/68 96 08/04/24 11:50 72 16 119/58 96 08/04/24 11:05 66 16 126/53 96 08/04/24 10:50 66 16 107/48 96 08/04/24 10:35 65 16 105/58 97 Intake and Output 08/04/24 08/05/24 08/05/24 22:59 06:59 14:59 Intake Total 500 10 Output Total 4500 Balance -4000 10 Intake: IV 10 Invasive Line 1 10 Hemodialysis 500 Output: Hemodialysis 2500 Hemodialysis Net Amount 2000 Other: # Voids 1 Weight 120 kg 119.5 kg Results - Lab Results Most recent lab results Calcium 9.4 mg/dL (8.4-10.2) 08/05/24 05:29 08/05/24 05:29 08/05/24 05:29 Assessment and Plan Plan: Assessment: 1. End-stage renal disease maintained on hemodialysis on Saturday schedule left upper extremity AV graft. 2. Thrombosed AV graft status post balloon angioplasty August 04, 2024. 3. Hyperkalemia secondary to chronic kidney disease. Improved postdialysis. 4. Diabetes mellitus. 5. Coronary disease with cardiac stents. 6. Chronic kidney disease mineral bone disease maintained on Renvela. Plan: Short hemodialysis treatment today. If no problems with AV graft, then okay for discharge. Thank you for the consultation. I will continue to follow the patient with you during her hospital stay.
[2024-08-05] MEDS: LEVOTHYROXINE 75 MCG TAB PO SCH (10:00)
[2024-08-05] MEDS: CLOPIDOGREL 75 MG TAB PO SCH (10:01)
[2024-08-05] MEDS: LEVOTHYROXINE 100 MCG TAB PO SCH (10:01)
[2024-08-05] MEDS: GABAPENTIN 100 MG CAP PO SCH (10:01)
[2024-08-05] MEDS: SODIUM ZIRCONIUM CYCLOSILICATE 10 GM PACKET PO SCH (10:02)
[2024-08-05 11:19] LABS: Glucose,Whole Blood 237 mg/dL (70-110)
[2024-08-05] MEDS: VENLAFAXINE HCL 37.5 MG TAB PO SCH (12:02)
[2024-08-05 14:22] VITALS: BP 121/75; PULSE 69; RESP 18; TEMP 98.2
--- NOTE | 2024-08-05 21:58 | PN ---
PROGRESS NOTE DATE OF SERVICE: 08/05/2024 SUBJECTIVE: This is a 69-year-old woman, who was admitted after pharmacomechanical thrombectomy for the thrombosed left forearm AV graft, is receiving hemodialysis. No chest pain. No palpitations. No fever. OBJECTIVE: VITAL SIGNS: Pulse is 65, blood pressure 108/40, respirations 17. CHEST: Clear to auscultation. CARDIOVASCULAR: S1, S2. ABDOMEN: Soft. NERVOUS SYSTEM: Nonfocal. LABORATORY DATA: Reviewed. ASSESSMENT: 1. Status post pharmacomechanical thrombectomy of the thrombosed left forearm AV graft. 2. End-stage renal disease, on hemodialysis. 3. Mild hyperkalemia. 4. Asthma. 5. Multiple complex medical issues. RECOMMENDATIONS: Recommend to continue current medications, continue symptomatic treatment. Resume the home medications and follow with primary physician. Nephrology as an outpatient. Rest of the recommendations per Vascular Surgery. Further recommendations to follow. MMODL / IJN: [id number] /
[2024-08-06] MEDS ORDERED: MIDODRINE 5 MG TAB PO SCH (05:00)
== END 2024-08-05 14:54 ==
LOC: CATHCVL 07:05 → 3SCARD 10:10 → CATHCVL 10:10
PROVIDERS: ADMIT Surgery; ATTEND Surgery
DX: T82.868A Thrombosis due to vascular prosthetic devices, implants and grafts, initial encounter (principal); Y83.2 Surgical operation with anastomosis, bypass or graft as the cause of abnormal reaction of the patient, or of later complication, without mention of misadventure at the time of the procedure; E87.5 Hyperkalemia; N25.0 Renal osteodystrophy; I13.2 Hypertensive heart and chronic kidney disease with heart failure and with stage 5 chronic kidney disease, or end stage renal disease; I50.9 Heart failure, unspecified; N18.6 End stage renal disease; I25.10 Atherosclerotic heart disease of native coronary artery without angina pectoris; E11.22 Type 2 diabetes mellitus with diabetic chronic kidney disease; J44.89 Other specified chronic obstructive pulmonary disease; E78.5 Hyperlipidemia, unspecified; G47.30 Sleep apnea, unspecified; E11.42 Type 2 diabetes mellitus with diabetic polyneuropathy; E89.0 Postprocedural hypothyroidism; F41.9 Anxiety disorder, unspecified; F32.A Depression, unspecified; M06.9 Rheumatoid arthritis, unspecified; I25.2 Old myocardial infarction; Z85.850 Personal history of malignant neoplasm of thyroid; Z86.711 Personal history of pulmonary embolism; Z86.73 Personal history of transient ischemic attack (TIA), and cerebral infarction without residual deficits; Z95.5 Presence of coronary angioplasty implant and graft; Z99.2 Dependence on renal dialysis; Z79.02 Long term (current) use of antithrombotics/antiplatelets; Z79.82 Long term (current) use of aspirin; Z79.890 Hormone replacement therapy; Z79.899 Other long term (current) drug therapy
CPT/HCPCS: 36905; 90935; 96372 ×2; 94640 ×3; 76937; 80053; 80048; 85025 ×2; 87340; 83036; G0378 ×2; G0379; C1894; C1769 ×3; C1725 ×2; C2623; C1757; J2250; J1644 ×2; J2003; J3010; J2997; Q9967; 36901

== ENCOUNTER 2024-12-29 06:50 | Emergency (ER) | payer MEDICARE, OTHER ==
[2024-12-29 06:56] VITALS: RESP 18
--- NOTE | 2024-12-29 07:22 | ED ---
General Adult HPI - General Chief complaint: Extremity Problem,Nontraumatic Stated complaint: R knee pain Time Seen by Provider: 12/29/24 07:00 Source: patient, EMS, RN notes reviewed Mode of arrival: EMS Limitations: no limitations - History of Present Illness Initial comments: Patient is a 69-year-old female presenting to the emergency department with right knee pain. Patient has chronic right knee pain, worse the past 3 months. Patient has seen orthopedics for this and has another appointment in a couple weeks. Patient is considering having surgery. Patient has had previous knee replacement. Patient also has back and hip pain. Patient has had previous back surgery as well. Patient has seen her orthopedic doctor for that as well. There was discussion regarding possible further back surgery as well. No fever. No swelling. Pain increases with movement and attempted ambulation. Patient resides in skilled nursing and states she is not allowed to walk alone. - Related Data Home Medications Medication Instructions Recorded Confirmed Levothyroxine Sodium [Synthroid] 175 mcg PO DAILY@0800 11/21/17 08/04/24 Montelukast [Singulair] 10 mg PO HS@2100 11/21/17 08/04/24 Atorvastatin [Lipitor] 40 mg PO HS 09/08/20 08/04/24 Cholecalciferol [Vitamin D3 (25 50 mcg PO DAILY@17012/09/20 08/04/24 Mcg = 1000 Iu)] Acetaminophen Tab [Tylenol] 650 mg PO Q4H PRN 11/04/21 08/04/24 Aspirin EC [Ecotrin Low Dose] 81 mg PO DAILY@1700 11/04/21 08/04/24 Clopidogrel [Plavix] 75 mg PO DAILY@0800 11/04/21 08/04/24 Isosorbide Mononitrate ER [Imdur] 30 mg PO BID@0800,1700 02/08/22 08/04/24 Ondansetron [Zofran] 4 mg PO BID PRN 02/08/22 08/04/24 carvediloL [Coreg] 12.5 mg PO SUMOWEFR@0808/06/22 08/03/24 Loperamide [Imodium] 2 mg PO QID PRN 09/28/22 08/04/24 allopurinoL [Zyloprim] 100 mg PO DAILY@0800 09/28/22 08/04/24 Calcium Acetate [PhosLo] 667 mg PO HS 10/30/22 08/04/24 Renal Multivitamin Formula Tab 1 tab PO DAILY@1700 10/30/22 08/04/24 bisacodyL [Dulcolax] 10 mg RECTAL DAILY PRN 10/30/22 08/04/24 carvediloL [Coreg] 12.5 mg PO DAILY@1700 10/30/22 08/03/24 Insulin Aspart [NovoLOG] See Protocol SQ ACHS 12/31/22 08/04/24 Sennosides-Docusate Sodium 1 tab PO BID@0800,1700 12/31/22 08/04/24 [Senokot-S] Diclofenac Sodium Gel [Voltaren 1% 1 applic TOPICAL QID 09/03/23 08/04/24 Gel] Ipratropium-Albuterol Nebulize 3 ml INHALATION RT-Q6H 09/03/23 08/04/24 [Duoneb 0.5 mg-3 mg/3 ml Soln] Melatonin 6 mg PO HS@2100 09/03/23 08/04/24 Venlafaxine HCl [Effexor] 37.5 mg PO DAILY@0800 09/03/23 08/04/24 Ferric Citrate [Auryxia] 210 mg PO TID 03/24/24 08/04/24 Lidocaine 4% Cream [Lmx 4] 1 applic TOPICAL QID 03/24/24 08/04/24 Pantoprazole [Protonix] 1 tab PO DAILY@0700 03/24/24 08/04/24 Polyvinyl Alcohol/Povidone [Clear 1 drop BOTH EYES QID 03/24/24 08/04/24 Eyes Natural Tears Drop] guaiFENesin [guaiFENesin Oral 200 mg PO Q4H PRN 03/24/24 08/04/24 Solution] Benzocaine/Menthol [Chloraseptic 1 lozenge MUCOUS MEM DAILY PRN 08/03/24 08/04/24 Sore Throat Lozng] Calcium Acetate [PhosLo] 2,001 mg PO TID-W/MEALS 08/03/24 08/04/24 Famotidine [Pepcid] 20 mg PO DAILY@1700 08/03/24 08/04/24 Insulin Degludec [Tresiba] 15 units SQ HS@2130 08/03/24 08/04/24 Sodium Zirconium Cyclosilicate 10 gm PO SUMOWEFR 08/03/24 08/04/24 [Lokelma] traMADol HCL 50 mg PO Q8H PRN 08/03/24 08/04/24 Hydrocortisone Cream 1 applic TOPICAL BID 08/04/24 08/04/24 [Hydrocortisone 1% Cream] Previous Rx's Medication Instructions Recorded Gabapentin [Neurontin] 100 mg PO DAILY@0800 #2 cap 04/26/23 Apixaban [Eliquis] 2.5 mg PO BID #60 tab 09/05/23 Gabapentin [Neurontin] 200 mg PO HS@2000 #60 cap 09/05/23 HYDROcodone/APAP 5-325MG [[place] 1 tab PO Q6H PRN #20 tab 09/05/23 5-325] Ipratropium-Albuterol Nebulize 3 ml INHALATION RT-TID PRN each 09/05/23 [Duoneb 0.5 mg-3 mg/3 ml Soln] Allergies Allergy/AdvReac Type Severity Reaction Status Date / Time No Known Allergies Allergy Verified 12/29/24 06:56 Review of Systems ROS Statement: Those systems with pertinent positive or pertinent negative responses have been documented in the HPI. ROS Other: All systems not noted in ROS Statement are negative. Constitutional: Denies: fever Eyes: Denies: eye pain ENT: Denies: ear pain Respiratory: Denies: cough Cardiovascular: Denies: chest pain Endocrine: Denies: fatigue Gastrointestinal: Denies: abdominal pain Musculoskeletal: Reports: as per HPI, back pain, arthralgia Past Medical History Past Medical History: Asthma, Coronary Artery Disease (CAD), Cancer, Heart Failure, COPD, CVA/TIA, Diabetes Mellitus, GI Bleed, Hyperlipidemia, Hypertension, Myocardial Infarction ([place]), Osteoarthritis (OA), Pulmonary Embolus (PE), Renal Disease, Rheumatoid Arthritis (RA), Sleep Apnea/CPAP/BIPAP, Syncope, Thyroid Disorder Additional Past Medical History / Comment(s): left forearm fistula-crrently swollen and painful,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 November Admission 2022 for [facility]-malfunctioning dialysis catheter. Last Myocardial Infarction Date:: 2009 History of Any Multi-Drug Resistant Organisms: VRE Date of last positivie culture/infection: 01/17/22 MDRO Source:: Urine Past Surgical History: Adenoidectomy, Back Surgery, Cholecystectomy, Heart Catheterization With Stent, Tonsillectomy Additional Past Surgical History / Comment(s): PCI with stent 2009 & 2018, low back surgery, total R shoulder and total R knee arthroplasties, bilateral hand trigger finger surgeries, EGD, colonoscopy, bilat. laser eye surgery for bleed and cataract removal, thyroidectomy(2 surgeries total to remove all of thyroid).lt tib fib fx-plate and screws. Lt arm Dialysis fistula Past Anesthesia/Blood Transfusion Reactions: No Reported Reaction, Motion Sickness Additional Past Anesthesia/Blood Transfusion Reaction / Comment(s): no problems with prior blood transfusions Date of Last Stent Placement:: Past Psychological History: Anxiety, Depression Smoking Status: Never smoker Past Alcohol Use History: None Reported Past Drug Use History: None Reported - Past Family History Mother Family Medical History: Asthma, CVA/TIA, Seizure Disorder Additional Family Medical History / Comment(s): epilepsy, pt states "mom had 21 strokes) Father Family Medical History: COPD, Diabetes Mellitus Additional Family Medical History / Comment(s): many heart problems General Exam Limitations: no limitations General appearance: alert, in no apparent distress Head exam: Present: normocephalic Eye exam: Present: normal appearance Neck exam: Present: normal inspection Respiratory exam: Present: normal lung sounds bilaterally Cardiovascular Exam: Present: regular rate, normal rhythm Expanded Peripheral pulses: 2+: Posterior Tibialis (R) GI/Abdominal exam: Present: soft. Absent: tenderness Extremities exam: Present: tenderness (Right anterior knee. Discomfort with range of motion. No effusion. No redness or warmth.). Absent: calf tenderness Neurological exam: Present: alert. Absent: motor sensory deficit Psychiatric exam: Present: normal affect, normal mood Skin exam: Present: normal color Course Vital Signs 12/29/24 06:51 Temperature 98.1 F Pulse Rate 75 Respiratory 18 Rate Blood Pressure 100/40 O2 Sat by Pulse 92 L Oximetry Medical Decision Making - Medical Decision Making Was pt. sent in by a medical professional or institution (, PA, POST SECONDARY PROFESSIONAL, urgent care, hospital, or skilled nursing...) When possible be specific @ -Patient came from dialysis center Did you speak to anyone other than the patient for history (EMS, parent, family, police, friend...)? What history was obtained from this source @ -No Did you review nursing and triage notes (agree or disagree)? Why? @ -I reviewed and agree with nursing and triage notes Were old charts reviewed (outside hosp., previous admission, EMS record, old EKG, old radiological studies, urgent care reports/EKG's, skilled nursing records)? Report findings @ -No old charts were reviewed Differential Diagnosis (chest pain, altered mental status, abdominal pain women, abdominal pain men, vaginal bleeding, weakness, fever, dyspnea, syncope, headache, dizziness, GI bleed, back pain, seizure, CVA, palpatations, mental health, musculoskeletal)? @ -Differential Musculoskeletal Muscular strain, contusion, ligament sprain, fracture, arthritis, septic arthritis, bursitis, cellulitis, muscle spasm, nerve compression, DVT, arterial occlusion, herpes zoster, electrolyte abnormality, tumor.... This is not meant to be in all inclusive list EKG interpreted by me (3pts min.). @ -As above X-rays interpreted by me (1pt min.). @ -X-ray right knee shows postsurgical changes. Calcification patellar tendon CT interpreted by me (1pt min.). @ -None done U/S interpreted by me (1pt. min.). @ -None done What testing was considered but not performed or refused? (CT, X-rays, U/S, labs)? Why? @ -None What meds were considered but not given or refused? Why? @ -None Did you discuss the management of the patient with other professionals (professionals i.e. , ENRRIQUE, POST SECONDARY PROFESSIONAL, lab, RT, psych nurse, psychiatric social worker supervisor, dividend deposit entry clerk, teacher, tax revenue officer, high risk case manager)? Give summary @ -No Was smoking cessation discussed for >3mins.? @ -No Was critical care preformed (if so, how long)? @ -No Were there social determinants of health that impacted care today? How? (Homelessness, low income, unemployed, alcoholism, drug addiction, transportation, low edu. Level, literacy, decrease access to med. care, alf, rehab)? @ -No Was there de-escalation of care discussed even if they declined (Discuss DNR or withdrawal of care, Hospice)? DNR status @ -No What co-morbidities impacted this encounter? (DM, HTN, Smoking, COPD, CAD, Cancer, CVA, ARF, Chemo, Hep., AIDS, mental health diagnosis, sleep apnea, morbid obesity)? @ -Chronic knee pain. Chronic joint pain Was patient admitted / discharged? Hospital course, mention meds given and route, prescriptions, significant lab abnormalities, going to OR and other pertinent info. @ -Patient presents with chronic pain, patient states this is not worse than normal. Patient came from dialysis center. Patient received pain medication and x-rays and will be return for dialysis. Recommended close follow-up with orthopedics. Patient will be provided local orthopedic number as well. Patient demonstrates understanding Undiagnosed new problem with uncertain prognosis? @ -No Drug Therapy requiring intensive monitoring for toxicity (Heparin, Nitro, Insulin, Cardizem)? @ -No Were any procedures done? @ -No Diagnosis/symptom? @ -Knee pain Acute, or Chronic, or Acute on Chronic? @ -Acute on chronic Uncomplicated (without systemic symptoms) or Complicated (systemic symptoms)? @ -Default Side effects of treatment? @ -No Exacerbation, Progression, or Severe Exacerbation? @ -No Poses a threat to life or bodily function? How? (Chest pain, [place], [place], pneumonia, PE, COPD, DKA, ARF, appy, cholecystitis, CVA, Diverticulitis, Homicidal, Suicidal, threat to staff... and all critical care pts) @ -No Disposition Clinical Impression: Knee pain Disposition: HOME SELF-CARE Condition: Stable Instructions (If sedation given, give patient instructions): Knee Pain (ED) Additional Instructions: Please do follow-up with your primary care physician and your orthopedic doctor in the next couple of days for recheck. Local orthopedic doctor number provided. Return for fever, redness, warmth, swelling, increased pain, worsening symptoms or other concerns. Is patient prescribed a controlled substance at d/c from ED?: No Referrals: Cristiano East MD [Primary Care Provider] - 1-2 days Stephon Zuleta DO [Doctor of Osteopathic Medicine] - 1-2 days Time of Disposition: 08:49
[2024-12-29] MEDS: KETOROLAC 15 MG/ML 1 ML VIAL IVP STA (07:25)
[2024-12-29] MEDS: MORPHINE SULFATE 4 MG/ML SYRINGE IVP STA (07:27)
--- NOTE | 2024-12-29 08:30 | XR ---
EXAMINATION TYPE: XR knee complete RT DATE OF EXAM: 12/29/2024 8:24 AM INDICATION: Patient age:Female; 69 years old; Reason for study: pain; PHH. pain COMPARISON: Bilateral knee radiographs 11/20/2022 TECHNIQUE: The Right knee(s) was examined in Frontal, lateral and oblique projections. FINDINGS: Right knee arthroplasty changes redemonstrated. Hardware appears intact with appropriate al ignment. No periprosthetic lucency identified. No evidence of any acute osseous pathology, soft tiss ue swelling, or joint effusion is noted. Unchanged infrapatellar dense calcification. In the region o f the patellar tendon. Vascular sclerosis. IMPRESSION: 1. No acute osseous pathology. 2. Postsurgical changes right knee arthroplasty. Hardware appears intact with appropriate alignment. 3. Unchanged infrapatellar dense calcifications suggesting calcific tendinitis. [facility], , 12/29/2024 8:28 AM
[2024-12-29 10:35] VITALS: BP 108/43; PULSE 64; TEMP 97.8
== END 2024-12-29 10:35 | disposition home or self-care (01) ==
LOC: EC 06:50
DX: G89.29 Other chronic pain (principal); M25.561 Pain in right knee
CPT/HCPCS: 73562; 99284; 96374; 96375; J2270; J1885